=== PATIENT | male | born 1955 | race Caucasian/White ===

== ENCOUNTER 2022-12-29 10:04 | Outpatient (OUT) | payer MEDICARE, SELFPAY ==
[2022-12-29 10:36] LABS: Basophils Percent Auto 0.5 % (0.2-2.0); Eosinophils Absolute Auto 0.2 10^3/uL (0.0-0.7); Eosinophils Percent Auto 1.9 % (0.9-7.0); Hematocrit 40.4 % (42.0-54.0); Hemoglobin 13.7 g/dL (14.0-18.0); Immature Granulocytes Abs Auto 0.02 10^3/uL (0.00-0.03); Immature Granulocytes Pct Auto 0.3 % (0.0-0.5); Lymphocytes Absolute Auto 2.9 10^3/uL (1.2-3.8); Lymphocytes Percent Auto 36.4 % (20.5-60.0); Mean Corpuscular HGB Conc 33.9 g/dL (29.9-35.2); Mean Corpuscular Hemoglobin 30.9 pg (25.9-34.0); Mean Corpuscular Volume 91.2 fL (80.0-94.0); Mean Platelet Volume 10.2 fL (9.5-13.5); Monocytes Absolute Auto 0.8 10^3/uL (0.3-0.8); Monocytes Percent Auto 9.6 % (1.7-12.0); Neutrophils Percent Auto 51.3 % (43.0-75.0); Platelet Count 210 10^3/uL (150-450); Red Blood Count 4.43 10^6/uL (4.70-6.10); Red Cell Distribution Width 13.7 % (11.0-15.0); White Blood Count 7.8 10^3/uL (4.0-11.0)
[2022-12-29 10:57] LABS: Alanine Aminotransferase 29 U/L (16-63); Albumin Level 3.7 g/dL (3.4-5.0); Alkaline Phosphatase 43 U/L (46-116); Anion Gap 12.8; Aspartate Amino Transferase 18 U/L (15-37); BUN Creatinine Ratio 19.1; Bilirubin Total 0.8 mg/dL (0.2-1.0); Calcium 9.2 mg/dL (8.5-10.1); Carbon Dioxide 27.3 mmol/L (21.0-32.0); Chloride 105 mmol/L (98-107); Chol HDL Ratio 2.5; Cholesterol 121 mg/dL (<=200); Estimated GFR (African America >60 (>=60); Estimated GFR (Non-African Ame >60 (>=60); Globulin 3.6 g/dL; Glucose 107 mg/dL (74-106); HDL Cholesterol 48 mg/dL (40-60); LDL Cholesterol Calculated 55.6 mg/dL; Potassium 4.1 mmol/L (3.5-5.1); Sodium 141 mmol/L (136-145); Total Protein 7.3 g/dL (6.4-8.2); Triglycerides 87 mg/dL (<=150); VLDL CHOLESTEROL 17.4 mg/dL
== END 2022-12-29 10:05 | disposition home or self-care (01) ==
LOC: LAB 10:07
PROVIDERS: PCP Internal Medicine; Visit Provider Internal Medicine
DX: I10 Essential (primary) hypertension (principal); E78.5 Hyperlipidemia, unspecified
CPT/HCPCS: 36415; 80053; 80061; 85025

== ENCOUNTER 2023-03-17 12:44 | Outpatient (OUT) | payer MEDICARE, SELFPAY ==
[2023-03-17 13:03] LABS: Hematocrit 40.6 % (42.0-54.0); Hemoglobin 13.6 g/dL (14.0-18.0); Mean Corpuscular HGB Conc 33.5 g/dL (29.9-35.2); Mean Corpuscular Hemoglobin 31.4 pg (25.9-34.0); Mean Corpuscular Volume 93.8 fL (80.0-94.0); Mean Platelet Volume 9.7 fL (9.5-13.5); Platelet Count 226 10^3/uL (150-450); Red Blood Count 4.33 10^6/uL (4.70-6.10); Red Cell Distribution Width 13.1 % (11.0-15.0); White Blood Count 7.4 10^3/uL (4.0-11.0)
[2023-03-17 13:13] LABS: Creatinine Urine Random 102.52 mg/dL (20.00-300.00); Protein Creatinine Ratio Urine 0.12; Total Protein Urine Random 12.1 mg/dL (<=11.9)
[2023-03-17 13:16] LABS: Bilirubin Urine NEGATIVE (NEGATIVE); Blood Urine NEGATIVE (NEGATIVE); Clarity Urine CLEAR (CLEAR); Color Urine YELLOW (YELLOW); Glucose Urine UA NEGATIVE (NEGATIVE); Ketones Urine NEGATIVE (NEGATIVE); Leukocyte Esterase Urine NEGATIVE (NEGATIVE); Nitrite Urine NEGATIVE (NEGATIVE); Protein Urine NEGATIVE (NEG/TRACE)
[2023-03-17 13:29] LABS: Albumin Level 3.6 g/dL (3.4-5.0); Anion Gap 7.4; BUN Creatinine Ratio 16.4; Carbon Dioxide 32.3 mmol/L (21.0-32.0); Chloride 102 mmol/L (98-107); Estimated GFR (African America >60 (>=60); Estimated GFR (Non-African Ame 56 (>=60); Glucose 82 mg/dL (74-106); Magnesium 1.7 mg/dL (1.8-2.4); Phosphorus 4.2 mg/dL (2.6-4.7); Potassium 3.7 mmol/L (3.5-5.1); Sodium 138 mmol/L (136-145); Uric Acid 6.1 mg/dL (3.5-7.2)
[2023-03-17 14:06] LABS: Bacteria Urine NONE SEEN #/HPF (NONE SEEN); Mucus Urine NONE SEEN (NONE SEEN); RBC Urine NONE SEEN #/HPF (0-2); Squamous Epithelial Cell Urine RARE #/LPF (NONE/RARE); WBC Urine NONE SEEN #/HPF (NONE SEEN)
[2023-03-18 13:08] LABS: PTH, Intact 37 pg/mL (15-65)
== END 2023-03-17 12:45 | disposition home or self-care (01) ==
LOC: LAB 12:45
PROVIDERS: PCP Internal Medicine; Visit Provider Internal Medicine
DX: I12.9 Hypertensive chronic kidney disease with stage 1 through stage 4 chronic kidney disease, or unspecified chronic kidney disease (principal); N18.30 Chronic kidney disease, stage 3 unspecified; N25.81 Secondary hyperparathyroidism of renal origin; E79.0 Hyperuricemia without signs of inflammatory arthritis and tophaceous disease; Q60.0 Renal agenesis, unilateral
CPT/HCPCS: 36415; 80069; 81001; 82306; 82570; 83735; 83970; 84156; 84550; 85027

== ENCOUNTER 2023-04-02 12:41 | Emergency (ER) | payer MEDICARE, SELFPAY ==
[2023-04-02 12:46] VITALS: BP 143/88; PULSE 61; RESP 20; TEMP 36.4; O2SAT 100; BMI 32.1
--- NOTE | 2023-04-02 12:55 | XR_ITS ---
The [address] [address] Patient Name: ABBEY IRVING MRN: [id number] date: 1955 Sex: M Assigned Patient Location: ER Current Patient Location: ER Accession/Order Number: [id number] Exam Date: 04/02/2023 13:05 Report Date: 04/02/2023 14:16 At the request of: CHUCK KEE Procedure: XR hand LT min 3V IMAGES REVIEWED: XR hand LT min 3V COMPARISON: 03/14/2017. CLINICAL INDICATION: drilled through base of thumb FINDINGS/IMPRESSION: 1. No evidence of acute osseous abnormality of the left hand/first digit. 2. No radiopaque foreign bodies in the soft tissues. 3. Old healed chronic fracture deformity of the distal tuft first distal phalanx. 4. Tiny bony exostosis involving the volar aspect of the base of the first proximal phalanx better seen on prior. Electronically authenticated by: PREETI ALEJANDRE Date: 04/02/2023 14:16
--- NOTE | 2023-04-02 12:57 | ED.UPPEXIN1 ---
HPI - Extremity Injury (Upper) General Chief Complaint: Extremity Injury, Upper Stated Complaint: LT HAND PUNCTURE Time Seen by Provider: 04/02/23 12:55 Source: patient Mode of arrival: walk-in History of Present Illness HPI narrative: Patient presenting to us with a left hand wound that he sustained after he was using the drill, according to him it was a new drill and the it just slipped from his hand and poked his left hand, the patient presented with a wound to the left hand due to that and he mentioned that his last tetanus was 3 years ago No other complaints Related Data Home Medications Medication Instructions Recorded Confirmed albuterol sulfate 90 mcg/actuation 2 inh inhalation Q6H PRN shortness 04/02/23 04/02/23 aerosol inhaler of breath or wheezing atorvastatin 40 mg tablet 40 mg PO DAILY 04/02/23 04/02/23 budesonide-formoterol HFA 160 1 inh inhalation Q12H 04/02/23 04/02/23 mcg-4.5 mcg/actuation aerosol inhaler (Symbicort) furosemide 20 mg tablet 20 mg PO DAILY 04/02/23 04/02/23 losartan 50 mg tablet 50 mg PO DAILY 04/02/23 04/02/23 metoprolol tartrate 25 mg tablet 25 mg PO DAILY 04/02/23 04/02/23 tamsulosin 0.4 mg capsule 0.4 mg PO Q24H 04/02/23 04/02/23 Previous Rx's Medication Instructions Recorded cephalexin 500 mg capsule 500 mg PO TID 5 days #15 caps 04/02/23 Allergies Allergy/AdvReac Type Severity Reaction Status Date / Time No Known Drug Allergies Allergy Verified 04/02/23 13:00 Review of Systems ROS Status of ROS 10 or more systems reviewed and unremarkable except as noted in history and below Exam Narrative Exam Narrative: Nurses notes and vital signs reviewed and patient is not hypoxic. General: Well-appearing and in no apparent distress. Skin: Warm, dry, no pallor noted. No rash. Head: Normocephalic, atraumatic. Neck: Supple, non-tender. Eye: Pupils are equal, round and EOMI. No scleral icterus. Ears, Nose, Mouth, and Throat: TM are clear, no nasal mucosal hypertrophy. Oral mucosa is moist, no posterior oropharynx erythema, uvula is mid-line Cardiovascular: Regular Rate and Rhythm without murmur, gallop or rub. Respiratory: No accessory muscle use or respiratory distress. Lungs are clear to auscultation, no wheezing, rales or rhonchi Chest Wall: no tenderness Back: No midline thoracic or lumbar vertebral tenderness. No CVA tenderness Musculoskeletal: On the palmar aspect of the left hand the patient have a puncture wound with some macerated skin at the edges almost 5 mm in circumference, the patient have no tenderness upon palpation of the bony prominences there is vascular injury and the capillary fill is within normal GI: Abdomen is soft, non-distended. Normal bowel sounds. No masses appreciated. No tenderness to palpation. No rebound, guarding, or rigidity noted. Neurological: A&O x4. No cranial nerve dysfunction observed. No truncal ataxia. Moves all extremities. Sensation intact. Psychiatric: Cooperative and interactive. Normal mood and affect. Constitutional Vital Signs, click to edit/add: Last Vital Signs Temp 97.5 F L 04/02/23 12:46 Pulse 63 04/02/23 13:48 Resp 18 04/02/23 13:48 BP 136/88 04/02/23 13:48 Pulse Ox 100 04/02/23 13:48 O2 Del Method Room Air 04/02/23 12:46 Course Vital Signs Vital signs: Vital Signs Temperature 97.5 F L 04/02/23 12:46 Pulse Rate 61 04/02/23 12:46 Respiratory Rate 20 04/02/23 12:46 Blood Pressure 143/88 H 04/02/23 12:46 Pulse Oximetry 100 04/02/23 12:46 Oxygen Delivery Method Room Air 04/02/23 12:46 Temperature 97.5 F L 04/02/23 12:46 Pulse Rate 63 04/02/23 13:48 Respiratory Rate 18 04/02/23 13:48 Blood Pressure 136/88 04/02/23 13:48 Pulse Oximetry 100 04/02/23 13:48 Oxygen Delivery Method Room Air 04/02/23 12:46 MDM - Extremity Injury (Upper) MDM Narrative Medical decision making narrative: The wound was cleaned thoroughly with normal saline and Betadine after which the patient had 2 cc of 1% lidocaine with no epinephrine infiltrating the area ,some mild debridement because of the macerated edges to approximate the wound The patient had 4 stitches of 5-0 ethilon applied and the patient tolerated the procedure well Clean dressing and Jose Alberto wrap applied X-ray showed no acute pathology the patient was discharged home with prophylactic Keflex with instructed for wound care The patient is to follow up with primary care physician in next 2-3 days or to return to the emergency department should any of the signs or symptoms worsen or new symptoms develop. The patient agrees with the following Diagnosis and Treatment plan and the patient will be discharged home. Discharge Plan Discharge Chief Complaint: Extremity Injury, Upper Clinical Impression: Puncture wound of hand Patient Disposition: Home, Self-Care Time of Disposition Decision: 14:41 Condition: Good Prescriptions / Home Meds: New cephalexin 500 mg capsule 500 mg PO TID 5 Days Qty: 15 0RF No Action albuterol sulfate 90 mcg/actuation HFA aerosol inhaler 2 inh INHALATION Q6H PRN (Reason: shortness of breath or wheezing) atorvastatin 40 mg tablet 40 mg PO DAILY budesonide-formoterol [Symbicort] 160-4.5 mcg/actuation HFA aerosol inhaler 1 inh INHALATION Q12H furosemide 20 mg tablet 20 mg PO DAILY losartan 50 mg tablet 50 mg PO DAILY metoprolol tartrate 25 mg tablet 25 mg PO DAILY tamsulosin 0.4 mg capsule 0.4 mg PO Q24H Instructions: Laceration (ED), Puncture Wound (ED) Stand Alone Forms: Portal Instructions Referrals: Shaikh Gagnon MD [Primary Care Provider] - 1 week
[2023-04-02] MEDS: KETOROLAC TROMETHAMINE 30 MG/ML VIAL IM (13:21)
[2023-04-02] MEDS: LIDOCAINE HCL 1% 100 MG/10 ML MDV INJ (13:21)
[2023-04-02 13:48] VITALS: BP 136/88; PULSE 63; RESP 18; O2SAT 100
--- NOTE | 2023-04-02 14:04 | PC.NURSE ---
Patient received 4 stitches in left hand with 5.0.
[2023-04-02] MEDS: BACITRACIN 0.9 GM PACKET 1 PACKET TOPICAL (14:17)
[2023-04-02 14:55] VITALS: BP 136/86; PULSE 62; RESP 18; O2SAT 100
== END 2023-04-02 14:57 | disposition home or self-care (01) ==
PROVIDERS: Emergency Provider Emergency Medicine; PCP Internal Medicine
DX: S61.432A Puncture wound without foreign body of left hand, initial encounter (principal); W29.8XXA Contact with other powered hand tools and household machinery, initial encounter; Z79.899 Other long term (current) drug therapy
CPT/HCPCS: 12001; 73130; 96372; 99284

== ENCOUNTER 2023-05-17 08:35 | Outpatient (OUT) | payer MEDICARE, SELFPAY ==
[2023-05-17 08:58] LABS: Basophils Absolute Auto 0.1 10^3/uL (0.0-0.1); Basophils Percent Auto 0.5 % (0.2-2.0); Eosinophils Absolute Auto 0.3 10^3/uL (0.0-0.7); Eosinophils Percent Auto 2.8 % (0.9-7.0); Hematocrit 40.7 % (42.0-54.0); Hemoglobin 13.5 g/dL (14.0-18.0); Immature Granulocytes Abs Auto 0.02 10^3/uL (0.00-0.03); Immature Granulocytes Pct Auto 0.2 % (0.0-0.5); Lymphocytes Absolute Auto 2.9 10^3/uL (1.2-3.8); Lymphocytes Percent Auto 31.1 % (20.5-60.0); Mean Corpuscular HGB Conc 33.2 g/dL (29.9-35.2); Mean Corpuscular Hemoglobin 31.5 pg (25.9-34.0); Mean Corpuscular Volume 94.9 fL (80.0-94.0); Mean Platelet Volume 9.8 fL (9.5-13.5); Monocytes Absolute Auto 0.7 10^3/uL (0.3-0.8); Monocytes Percent Auto 7.7 % (1.7-12.0); Neutrophils Absolute Auto 5.4 10^3/uL (1.4-6.5); Neutrophils Percent Auto 57.7 % (43.0-75.0); Platelet Count 219 10^3/uL (150-450); Red Blood Count 4.29 10^6/uL (4.70-6.10); Red Cell Distribution Width 12.8 % (11.0-15.0); White Blood Count 9.4 10^3/uL (4.0-11.0)
[2023-05-17 09:33] LABS: Alanine Aminotransferase 26 U/L (16-63); Albumin Globulin Ratio 0.9; Albumin Level 3.5 g/dL (3.4-5.0); Alkaline Phosphatase 47 U/L (46-116); Anion Gap 12.5; Aspartate Amino Transferase 16 U/L (15-37); BUN Creatinine Ratio 17.6; Bilirubin Total 0.4 mg/dL (0.2-1.0); Calcium 8.8 mg/dL (8.5-10.1); Carbon Dioxide 29.7 mmol/L (21.0-32.0); Chloride 104 mmol/L (98-107); Chol HDL Ratio 2.5; Cholesterol 114 mg/dL (<=200); Estimated GFR (African America >60 (>=60); Estimated GFR (Non-African Ame >60 (>=60); Globulin 3.8 g/dL; Glucose 93 mg/dL (74-106); HDL Cholesterol 45 mg/dL (40-60); LDL Cholesterol Calculated 48.6 mg/dL; Potassium 4.2 mmol/L (3.5-5.1); Sodium 142 mmol/L (136-145); Total Protein 7.3 g/dL (6.4-8.2); Triglycerides 102 mg/dL (<=150); VLDL CHOLESTEROL 20.4 mg/dL
== END 2023-05-17 08:36 | disposition home or self-care (01) ==
LOC: LAB 08:36
PROVIDERS: PCP Internal Medicine; Visit Provider Internal Medicine
DX: E78.2 Mixed hyperlipidemia (principal); I10 Essential (primary) hypertension
CPT/HCPCS: 36415; 80053; 80061; 85025

== ENCOUNTER 2023-08-12 20:53 | Observation (INO) | payer MEDICARE, SELFPAY ==
[2023-08-12 21:01] VITALS: BP 176/86; PULSE 61; RESP 15; TEMP 36.7; O2SAT 97; BMI 33.0
--- NOTE | 2023-08-12 21:03 | ECG_ITS ---
The [facility] Test Date: 2023-08-12 Pat Name: ABBEY IRVING Department: Room: 2041 Gender: Male Electrical Tester: : 1955 Requested By: SHAIKH ALDAIR Order Number: [id number] Reading MD: RENETTA BECERRA Measurements Intervals Admire Rate: 59 P: 60 NM: 232 QRS: 45 QRSD: 88 T: 70 QT: 408 QTc: 408 Interpretive Statements 1100 Sinus bradycardia 2231 First degree AV block 9150 abnormal ECG Electronically Signed On 08-14-2023 8:10:10 EDT by RENETTA BECERRA
--- OUTSIDE RECORDS SUMMARY | 2023-08-12 21:04 | XMS_ITS | CCD ---
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 [employer] Name Role Phone Jose Victoria Unavailable Carlos HOLLINS Attending Unavailable FAWWAD, PATEL Primary Care Unavailable Carlos HOLLINS Attending Unavailable FAWWAD, PATEL Primary Care Unavailable Carlos HOLLINS Attending Unavailable FAWWAD, PATEL Primary Care Unavailable DR CARLOS HOLLINS Consulting Unavailable COOK, PEGGY Attending Unavailable FAWWAD, PATEL H Primary Care Unavailable COOK, PEGGY Admitting Unavailable SAMSA ., RUKHSANA Admitting Unavailable ZIEBAMY, DR LUCAS Miller Consulting Unavailable SAMSA ., RUKHSANA Attending Unavailable FAWWAD, PATEL H Primary Care Unavailable SAMSA ., RUKHSANA Consulting Unavailable FAWWAD, PATEL H Admitting Unavailable FAWWAD, PATEL H Attending Unavailable FAWWAD, PATEL H Consulting Unavailable FAWWAD, PATEL H Primary Care Unavailable SAMSA ., RUKHSANA Admitting Unavailable SAMSA ., RUKHSANA Attending Unavailable TRISTON, DR LUCAS Miller Consulting Unavailable FAWWAD, PATEL H Primary Care Unavailable SAMSA ., RUKHSANA Consulting Unavailable FAWWAD, PATEL H Admitting Unavailable FAWWAD, PATEL H Attending Unavailable FAWWAD, PATEL H Consulting Unavailable FAWWAD, PATEL H Primary Care Unavailable PAY ., DR CARRASCO Admitting Unavailable DR LUCAS GOLDSTEIN Consulting Unavailable PAY ., DR CARRASCO Attending Unavailable FAWWAD, PATEL H Primary Care Unavailable PAY ., DR CARRASCO Consulting Unavailable AKIL, VARSHA Consulting Unavailable HAY ., DR ABEL Admitting Unavailable HAY ., DR ABEL Attending Unavailable GRECHNY ., PA THOMAS Consulting UnavailSHAIKH Nancy Keys Primary Care Unavailable DR COLTEN LANEG Consulting Unavailable DR DA ELISE Consulting Unavailable ERNA LEON Consulting Unavailable RUKHSANA DUPONT Attending Unavailable SHAIKH Nancy QUINTEROS Primary Care Unavailable RUKHSANA DUPONT Consulting Unavailable RUKHSANA DUPONT Admitting Unavailable SHAIKH QUINTEROS Attending Unavailable Allergies Allergy Classification Reported Allergen(s) Allergy Type Date of Onset Reaction(s) Facility (1 source) No Known Medication Allergies; Translations: [No Known Medication Allergies] Propensity to adverse reactions (disorder) [facility] Repository Medications Current Medications Medication Drug Class(es) Dates Sig (Normalized) Sig (Original) [id number] 200 actuat albuterol 0.09 mg/actuat metered dose inhaler (5 sources) beta2-Adrenergic Agonist take 1 puff(s) by inhalation every four hours as needed Albuterol Sulfate HFA 108 (90 Base) MCG/ACT 1 puff as needed Inhalation every 4 hrs Active take 1 puff(s) by in halation every four hours as needed Albuterol Sulfate HFA 108 (90 Base) MCG/ACT 1 puff as needed Inhalation every 4 hrs Active allopurinol 100 mg oral tablet (3 sources) Xanthine Oxidase Inhibitor Start: 03-22-2022 take 1 tablet by mouth every twenty-four hours Allopurinol 100 MG 1 tablet Orally Once a day for 90 day(s) Mar, Active amLODIPine 5 mg oral tablet (5 sources) Dihydropyridine Calcium Channel Ellis take 1 tablet by mouth every twenty-four hours amLODIPine Besylate 5 MG 1 tablet Orally Once a day Active atorvastatin 40 mg oral tablet (5 sources) HMG-CoA Reductase Inhibitor take 1 tablet by mouth every twenty-four hours Atorvastatin Calcium 40 MG 1 tablet Orally Once a day Active ergocalciferol 0.05 mg oral capsule (5 sources) Provitamin D2 Compound take 1 capsule by mouth every twenty-four hours Vitamin D (Ergocalciferol) 50 MCG (1999 UT) 1 capsule Orally Once a day Active furosemide 20 mg oral tablet (5 sources) Loop Diuretic take 1 tablet by mouth every twenty-four hours Furosemide 20 MG 1 tablet Orally Once a day Active lansoprazole 15 mg disintegrating oral tablet (5 sources) Proton Pump Inhibitor take 1 tablet by mouth every twenty-four hours Lansoprazole 15 MG 1 tablet Orally Once a day Active metoprolol tartrate 25 mg oral tablet (5 sources) beta-Adrenergic Ellis take 1 tablet by mouth every twelve hours Metoprolol Tartrate 25 MG 1 tablet with food Orally Twice a day Active Multivitamin preparation (2 sources) take 1 tablet by mouth once daily Multi Vitamin - 1 tablet Orally Once a day Active Nitro Sublingual 0.4 0.4mg (5 sources) Nitro Sublingual 0.4 0.4mg 1 Sublingual Every 5min x3 Active tamsulosin hydrochloride 0.4 mg oral capsule (5 sources) alpha-Adrenergic Ellis take 1 capsule by mouth every twenty-four hours Tamsulosin HCl 0.4 MG 1 capsule Orally Once a day Active Problems Active Problems Problem Classification Problem Date Documented Date Episodic/Chronic Alcohol-related disorders (1 source) Alcohol abuse with intoxication, unspecified; Translations: [ALCOHOL ABUSE WITH INTOXICATION UNS] Onset: 2 Chronic Cancer of prostate (4 sources) Personal history of malignant neoplasm of prostate; Translations: [PERSONAL HX MALIG NEOPLASM PROSTATE] Onset: 3 Episodic Chronic kidney disease (1 source) Chronic kidney disease stage 3; Translations: [Chronic kidney disease, stage III (moderate)] Chronic Deficiency and other anemia (1 source) Anemia in chronic kidney disease; Translations: [Anemia in chronic kidney disease] Chronic Deficiency and other anemia (1 source) Anemia in chronic kidney disease Chronic Disorders of lipid metabolism (6 sources) Hyperlipidemia, unspecified; Translations: [Dyslipidemia] Onset: 3 Chronic Essential hypertension (1 source) Essential (primary) hypertension; Translations: [ESSENTIAL PRIMARY HYPERTENSION] Onset: 3 Chronic Genitourinary congenital anomalies (9 sources) Renal agenesis and dysgenesis; 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, unilateral] Onset: 2 Resolved: 2 Chronic Hypertension with complications and secondary hypertension (9 sources) Chronic kidney disease due to hypertension; Translations: [Hypertensive chronic kidney disease with stage 1 through stage 4 chronic kidney disease, or unspecified chronic kidney disease] Onset: 2 Resolved: 2 Chronic Other diseases of kidney and ureters (5 sources) Secondary hyperparathyroidism; Translations: [Secondary hyperparathyroidism of renal origin] Chronic Other diseases of kidney and ureters (4 sources) Secondary hyperparathyroidism of renal origin Onset: 2 Resolved: 2 Chronic Other lower respiratory disease (4 sources) Other nonspecific abnormal finding of lung field; Translations: [OTH NONSPECIFIC ABN FIND LNG FIELD] Onset: 3 Episodic Other nutritional; endocrine; and metabolic disorders (1 source) Hypomagnesemia; Translations: [Hypomagnesemia] Chronic Other nutritional; endocrine; and metabolic disorders (1 source) Hypomagnesemia Chronic Other nutritional; endocrine; and metabolic disorders (3 sources) Hyperuricemia without signs of inflammatory arthritis and tophaceous disease Episodic Residual codes; unclassified (6 sources) Obstructive sleep apnea syndrome; Translations: [Obstructive sleep apnea (adult) (pediatric)] Onset: 2 Chronic Residual codes; unclassified (5 sources) Central alveolar hypoventilation syndrome; Translations: [Idiopathic sleep related nonobstructive alveolar hypoventilation] Chronic Residual codes; unclassified (3 sources) Obstructive sleep apnea (adult) (pediatric); Translations: [OBSTRUCTIVE SLEEP APNEA] Onset: 2 Chronic Substance-related disorders (10 sources) Nicotine dependence; Translations: [Nicotine dependence, unspecified, uncomplicated] Onset: 2 Chronic Unclassified (1 source) CONTACT W/AND (SUSP) EXPOS COVID-19; Translations: [CONTACT W/AND (SUSP) EXPOS COVID-19] Onset: 2 Past or Other Problems Problem Classification Problem Date Documented Da te Episodic/Chronic Abdominal pain (4 sources) Unspecified abdominal pain; Translations: [UNSPECIFIED ABDOMINAL PAIN] Onset: 01-01-2022 Episodic Chronic kidney disease (8 sources) Chronic kidney disease; Translations: [Chronic kidney disease, stage III (moderate)] Onset: 06-18-2021 Resolved: 06-18-2021 E Codes: Unspecified (1 source) Blood alcohol level of 240 mg/100 ml or more; Translations: [BLOOD ALCOHOL LV 240 MG/100 ML/MORE] Onset: 04-12-2022 Episodic Malaise and fatigue (1 source) Weakness; Translations: [WEAKNESS] Onset: 04-12-2022 Episodic Other aftercare (1 source) Other longterm (current) drug therapy; Translations: [OTH [facility] CURRENT DRUG THERAPY] Onset: 04-12-2022 Episodic Other connective tissue disease (1 source) Pain in left leg; Translations: [PAIN IN LEFT LEG] Onset: 01-04-2022 Episodic Other nervous system disorders (1 source) Slurred speech; Translations: [SLURRED SPEECH] Onset: 04-12-2022 Episodic Other screening for suspected conditions (not mental disorders or infectious disease) (4 sources) Other specified abnormal findings of blood chemistry; Translations: [OTH SPEC ABNORMAL FINDINGS BLD CHEM] Onset: 02-16-2022 Episodic Residual codes; unclassified (4 sources) Altered mental status, unspecified; Translations: [ALTERED MENTAL STATUS UNSPECIFIED] Onset: 04-08-2022 Episodic Results Test Name Value Interpretation Reference Range Facil maddie Patient Educationon 10-16-19 Patient Education Oncology Cancer Screening for Men A cancer screening is a test or exam that checks for cancer. Your health care provider will recommend specific cancer screenings based on your age, medical history (including risk factors), and family history of cancer. Work with your health care provider to create a cancer screening schedule that protects your health. Who should have screening? All men should be considered for screening of certain cancers, including colorectal cancer, prostate cancer, lung cancer, and skin cancer. Your health care provider may recommend screenings for other types of cancer if: ? You had cancer before. ? You have a family member with cancer. ? You have abnormal genes that could increase the risk of cancer. ? You have risk factors for certain cancers, such as current or past use of tobacco products, or being overweight. When you should be screened for cancer depends on: ? Your age. ? Your medical history and your family's medical history. ? Certain lifestyle factors, such as smoking or other use of tobacco products. ? Environmental exposure, such as to asbestos. How is screening done? Colorectal cancer All adults should have screenings starting at age 45 and continuing until age 75. Your health care provider may recommend screening before age 45. You will have tests every 1?10 years, depending on your results and the type of screening test. People at increased risk should start screening at an earlier age. Talk with your health care provider about which screening test is right for you and how often you should be screened. Colorectal cancer screening looks for cancer or for growths called polyps that often form before cancer starts. Tests to look for cancer or polyps include: ? Colonoscopy or flexible sigmoidoscopy. For these procedures, a flexible tube with a small camera is inserted into the rectum. ? CT colonography. This test uses X-rays and a contrast dye to check the colon for polyps. If a polyp is found, you may need to have a colonoscopy so the polyp can be located and removed. Tests to look for cancer in the stool (feces) include: ? Guaiac-based fecal occult blood test (FOBT). This test can find blood in stool. It can be done at home with a kit. ? Fecal immunochemical test (FIT). This test can find blood in stool. For this test, you will need to collect stool samples at home. ? Stool DNA test. This test looks for blood in stool and any changes in DNA that can lead to colon cancer. For this test, you will need to collect a stool sample at home and send it to a lab. Prostate cancer Prostate cancer screening for men with average risk may start at age 50. Men with risk factors may need to be screened earlier, at ages 40?45. Talk with your health care provider about whether screening is right for you and, if so, how often you should be screened. Prostate cancer screening is done with blood tests and a digital rectal exam. During this exam, a health care provider uses a gloved finger to check prostate size. You may need to be screened for prostate cancer if: ? You have risk factors for prostate cancer, such as being or having a close family member with prostate cancer. ? You have had gene changes or a genetic condition that was passed on to you from a parent (inherited). These gene changes or genetic conditions include BRCA1 or BRCA2 gene mutations or Ayon syndrome. ? You have symptoms of prostate cancer, such as problems urinating or problems getting or keeping an erection (erectile dysfunction). When you have been screened for prostate cancer, future screening may be recommended based on the results of your blood tests. Lung cancer Lung cancer screening is done with a CT scan that looks for abnormal changes in the lungs. Discuss lung cancer screening with your health care provider if you are 50?80 years old and if any of the following apply to you: ? You currently smoke. ? You used to smoke heavily. ? You have a smoking history of 1 pack of cigarettes a day for 20 years or 2 packs a day for 10 years. ? You have quit smoking within the past 15 years. You may need to be screened every year if you smoke heavily or if you used to smoke. Skin cancer Skin cancer screening is done by checking the skin for unusual moles or spots and any changes in existing moles. Your health care provider should check your skin for signs of skin cancer at every physical exam. You should check your skin every month and tell your health care provider right away if anything looks unusual. Men with a [id number] risk for skin cancer may want to see a skin drier (special forces engineer sergeant) for an annual body check. What are the benefits of screening? Cancer screening is done to look for cancer in the very early stages, before it spreads and becomes harder to treat and before you would start to notice symptoms. Finding cancer early improves the chances of successful treatment. It ma (more content not included)... Normal [facility] Screenson 10-15-2022 Screens [id number]# 1.00CD:127 Normal [facility] Urology Office/Clinic Noteon 10-15-2022 Urology Office/Clinic Note Chief Complaint pt is here for a f/u to PSA HPI Staff Pt is a 67 yr old Male here today for a 1 yr f/u for PSA. Pts previous PSA 0.05 done 08/10/21, Pts current PSA 0.13 done 10/11/22. Pts previous DX: BPH with obstruction/lower urinary tract symptoms, frequency of urination, history of prostate cancer, personal history of renal cell carcinoma, urgency of urination. Pts currently taking Flomax 0.4mg QD. Dysuria: denies Incomplete bladder emptying: denies Hematuria: denies Frequency: denies Urgency: pt states he has some urgency but not much Nocturia: 0x Stream: moderate, steady stream Leaking: denies Post void dripping: denies Wearing pads/ Depends: denies Urge incontinence: denies Stress incontinence: denies Incontinence without Sensory Awareness: denies Abdominal pain: denies Flank pain: every now and again, pt states he thinks it is because he does not drink enough water Sexual complaints: _ History of Present Illness Tests reviewed: reviewed UA, PSA. I have reviewed the previous health record information and history for this patient from Dr. Hollins. I have reviewed and verified the staff HPI to be accurate for this encounter. There have been no associated fever, chills, flank pain, or blood in the urine. Denies any urinary infections since last encounter. Review of Systems PHQ Score Initial Depression Screen Score: 0 ROS - Provider Constitutional: denies weight loss, denies hot flashes. Eyes: denies eye problems. Gastrointestinal: denies nausea, denies vomiting. Cardiovascular: denies chest pain or angina. Integumentary: no dryness Musculoskeletal: denies musculoskeletal symptoms. ENMT: denies otolaryngeal symptoms. Respiratory: no shortness of breath. Heme/Lymph: denies easy bleeding tendency, denies easy bruising tendency. Psychiatric: no confusion, no anxiety. Genitourinary: See HPI. Physical Exam Vitals & Measurements HR: 57(Peripheral) BP: 139/77 HT: 70 in HT: 177 cm WT: 106.7 kg WT: 234.74 lb BMI: 34.06 General Appearance: alert, no distress, well nourished, well developed male. Genitourinary: normal scrotum, normal testes, normal urethra, normal epididymis, normal vas deferens/spermatic cord. Flank Pain: none. Bladder: nonpalpable. Prostate: small and flat per usual. Assessment/Plan Had cataract surgery at the beginning of August, was very successful per pt. 1. Personal history of prostate cancer (Z85.46: Personal history of malignant neoplasm of prostate) PSA: 10/26/19 - 0.05 08/10/21 - 0.05 10/11/22 - <0.13 S/P Brachytherapy 03/24/11. PSA remains low and stable. Will continue to monitor. TETO today: small and flat per usual. Follow up 1 yr PSA or sooner if needed. Pt understands and agrees with plan. 2. BPH with obstruction/lower urinary tract symptoms (N40.1: Benign prostatic hyperplasia with lower urinary tract symptoms) UA today negative for blood and infection. IPSS 9. Taking Flomax 0.4 mg qd. Not voicing any urinary complaints. 3. Personal history of renal cell carcinoma (Z85.528: Personal history of other malignant neoplasm of kidney) S/P Lt Nephrectomy 2000. No gross hematuria. Overall the patient is doing well. No change in his urinary pattern. He is happy to hear that his PSA remains near 0 status post brachytherapy 12 years ago. He said no gross blood or clots in the urine. He recently had his cataract repaired. He continues on tamsulosin 0.4 mg daily and this dosing should continue. He is happy with that plan Follow-up With When Contact Information Carlos HOLLINS MD, URL [address] [place] [id number]- Additional Instructions: 1 yr PSA Patient Education Cancer Screening for Men I, Laurel Bradley, personally scribed for Dr. Hollins on 10/15/2022 10:05:22. . Documentation recorded by the scribe, Laurel Bradley, accurately reflects the services(s) I performed and decisions made by me. Authenticated by Dr. Hollins on 10/15/2022 10:10:09. Problem List/Past Medical History Ongoing Anticoagulated BPH with obstruction/lower urinary tract symptoms Frequency of urination History of UTI Hypertension Personal history of prostate cancer Personal history of renal cell carcinoma Urgency of urination Historical BPH - benign prostatic hyperplasia Cancer of prostate Elevated PSA Hypertension Renal cell carcinoma Procedure/Surgical History Brachytherapy (03/24/2011), Left nephrectomy (06/06/2000), Cataract, Extraction of wisdom tooth, History of hernia repair. Medications amlodipine, 5 mg, Oral, Daily atorvastatin, 40 mg, Oral, Daily Atrovent HFA, Inhalation, QID furosemide 20 mg Tab, Oral, Daily losartan 50 mg Tab, 50 mg= 1 tab(s), Oral, Daily metoprolol 25 mg ER Tab, 25 mg= 1 tab(s), Oral, Daily Pantoprazole [address] Tab, 40 mg= 1 tab(s), Oral, Daily tamsulosin 0.4 mg Cap, Oral, Daily Ventolin Diskus Vitamin D3 (more content not included)... Normal [facility] Comment on above: Result Comment: Elec tronically Signed By: Carlos HOLLINS MD\.br\Date and Time Signed: 10/15/22 10:11 EDT\.br\Electronically Co-Signed By: Laurel Bradley\.br\Date and Time Co-Signed: 10/15/22 10:08 EDT Lab Reportson 10-13-2022 Lab Reports [id number] .[id number]:127 Normal [facility] CT CHEST WO CONon 10-11-2022 CT CHEST WO CON EXAMINATION: CT CHES T WO CON HISTORY: Lung field abnormal COMPARISON: CT lung cancer screening 07/05/2022 TECHNIQUE: Axial, Coronal, and Sagittal images were created without the administration of IV contrast material. Dose reduction techniques were achieved by using automated exposure control and/or adjustment of mA and/or kV according to patient size and/or use of iterative reconstruction technique. FINDINGS: LUNGS: No visible pulmonary disease. PLEURA: No mass, effusion, or pneumothorax. VASCULATURE: No abnormality. JAKE: No mass or adenopathy. MEDIASTINUM: No mass or adenopathy. CARDIAC: No enlargement or pericardial thickening. AORTA: No aneurysm or dissection. CHEST WALL: No mass or axillary adenopathy. BONES: No bone lesion or fracture. LIMITED ABDOMEN: A few benign-appearing calcifications scattered within the liver, unchanged. Stable rim calcified lesion within left adrenal gland; likely sequela of remote hematoma. Limited images of the upper abdomen. OTHER: Negative. IMPRESSION: 1. Lung-RADS Category 1 Negative. No nodules and definitely benign nodules. Continue annual screening with LDCT in 12 months. 2. Clearing of previously seen right lung base findings consistent with resolved infectious infiltrates. Electronically authenticated by: LUCAS GOLDSTEIN Date: 2022-10-11 15:31 Normal [facility] CBC AUTO DIFFon 08-23-2022 BASO # 0.0 103/ul Normal 0.0-0.1 [facility] Comment on above: Performed By: #### C BC #### [facility] [address] [place], [place] [address] Dr. Jesus White Basophils/100 WBC (Bld) 0.5 % Normal 0.2-2.0 [facility] Comment on above: Performed By: #### C BC #### [facility] [address] [place], [place] [address] Dr. Jesus White EO # 0.2 103/ul Normal 0.0-0.7 [facility] Comment on above: Performed By: #### C BC #### [facility] [address] [place] [address] Dr. Jesus White Eosinophils/100 WBC (Bld) 2.2 % Normal 0.9-7.0 [facility] Comment on above: Performed By: #### C BC #### [facility] [address] [place] [address] Dr. Jesus White Erythrocyte distribution width (RBC) [Ratio] 13.3 % Normal 11.0-15.0 [facility] Comment on above: Performed By: #### C BC #### [facility] [address] [place] [address] Dr. Jesus White Hematocrit (Bld) [Volume fraction] 43.0 % Normal 42.0-54.0 [facility] Comment on above: Performed By: #### C BC #### [facility] [address] [place] [address] Dr. Jesus White Hemoglobin (Bld) [Mass/Vol] 14.4 g/dL Normal 14.0-18.0 [facility] Comment on above: Performed By: #### C BC #### [facility] [address] [place] [address] Dr. Jesus White IG # 0.02 10e3/ul Normal 0.00-0.03 [facility] Comment on above: Performed By: #### C BC #### [facility] [address] [place] [address] Dr. Jesus White IG % 0.2 % Normal 0.0-0.5 [facility] Comment on above: Performed By: #### C BC #### [facility] [address] [place] [address] Dr. Jesus White LYMPH # 3.0 103/ul Normal 1.2-3.8 [facility] Comment on above: Performed By: #### C BC #### [facility] [address] [place] [address] Dr. Jesus White Lymphocytes/100 WBC (Bld) 35.8 % Normal 20.5-60.0 [facility] Comment on above: Performed By: #### C BC #### [facility] [address] [place] [address] Dr. Jesus White MANUAL DIFF REQ NO Normal [facility] [place] [facility] Comment on above: Performed By: #### C BC #### [facility] [address] [place] [address] Dr. Jesus White MCH (RBC) [Entitic mass] 30.6 pg Normal 25.9-34.0 [facility] Comment on above: Performed By: #### C BC #### [facility] [address] [place] [address] Dr. Jesus White MCHC (RBC) [Mass/Vol] 33.5 g/dL Normal 29.9-35.2 [facility] Comment on above: Performed By: #### C BC #### [facility] [address] [place] [address] Dr. Jesus White MCV (RBC) [Entitic vol] 91.5 fL Normal 80.0-94.0 [facility] Comment on above: Performed By: #### C BC #### [facility] [facility] [address] [place] [address] Dr. Jesus White MONO # 0.8 103/ul Normal 0.3-0.8 [facility] Comment on above: Performed By: #### C BC #### [facility] [address] [place] [address] Dr. Jesus White Monocytes/100 WBC (Bld) 9.1 % Normal 1.7-12.0 [facility] Comment on above: Performed By: #### C BC #### [facility] [address] [place] [address] Dr. Jesus White NEUT # 4.4 103/ul Normal 1.4-6.5 [facility] Comment on above: Performed By: #### C BC #### [facility] [address] [place] [address] Dr. Jesus White Neutrophils/100 WBC (Bld) 52.2 % Normal 43.0-75.0 [facility] Comment on above: Performed By: #### C BC #### [facility] [address] [place] [address] Dr. Jesus White Platelet mean volume (Bld) [Entitic vol] 9.8 fL Normal 9.5-13.5 [facility] Comment on above: Performed By: #### C BC #### [facility] [address] [place] [address] Dr. Jesus White PLT 236 103/ul Normal 150-450 [facility] Comment on above: Performed By: #### C BC #### [facility] [address] [place] [address] Dr. Jesus White RBC 4.70 106/ul Normal 4.70-6.10 [facility] Comment on above: Performed By: #### C BC #### [facility] [address] [place] [address] Dr. Jesus White WBC 8.4 103/ul Normal 4.0-11.0 [facility] Comment on above: Performed By: #### C BC #### [facility] [address] [place] [address] Dr. Jesus White LIPID PROFILEon 08-23-2022 CHOL-HDL RATIO NORM SEE BELOW Normal [facility] Comment on above: Result Comment: 3.3 - 4.4 LOW RISK 4.4 - 7.1 AVERAGE RISK 7.1 - 11.0 MODERATE RISK >11.0 HIGH RISK Performed By: #### C MP, LIPID #### [facility] [address] [place] [address] Dr. Jesus White Cholesterol [Mass/Vol] 121 mg/dL Normal <=200 [facility] Comment on above: Performed By: #### C MP, LIPID #### [facility] [address] [place] [address] Dr. Jesus White Cholesterol in HDL [Mass/Vol] 37 mg/dL Critically low 40-60 [facility] Comment on above: Performed By: #### C MP, LIPID #### [facility] [address] [place] [address] Dr. Jesus White Cholesterol in LDL [Mass/Vol] 59.6 mg/dL Normal [facility] Comment on above: Performed By: #### C MP, LIPID #### [facility] [address] [address] [address] Jesus White Cholesterol.total/C holesterol in HDL [Mass ratio] 3.3 {ratio} Normal [facility] Comment on above: Performed By: #### C MP, LIPID #### [facility] [address] [address] [address] Jesus White HDL NORMAL > or = 60 mg/dl - LO W CARDIOVASCULAR RISK <40 mg/dl - HIGH CARDIOVASCULAR RISK Normal [facility] Comment on above: Performed By: #### C MP, LIPID #### [facility] [address] [address] [address] Jesus White LDL CALC NORMAL SEE BELOW Normal [facility] Comment on above: Result Comment: <100 mg/dl OPTIMAL 100 - 129 mg/dl NEAR OR ABOVE OPTIMAL 130 - 159 mg/dl BORDERLINE HIGH 160 - 189 mg/dl HIGH >190 mg/dl VERY HIGH Performed By: #### C MP, LIPID #### [facility] [address] [address] [address] Jesus White Triglyceride [Mass/Vol] 122 mg/dL Normal <=150 [facility] Comment on above: Performed By: #### C MP, LIPID #### [facility] [address] [place] [address] Dr. Jesus White VLDL CALC 24.4 mg/dL Normal [facility] Comment on above: Performed By: #### C MP, LIPID #### [facility] [address] [address] [address] Jesus White PROF 14(COMP METB)on 023 Albumin [Mass/Vol] 3.8 g/dL Normal 3.4-5.0 [facility] Comment on above: Performed By: #### C MP, LIPID #### [facility] [address] [place] [address] Dr. Jesus White Albumin/Globulin [Mass ratio] 1.1 {ratio} Normal [facility] Comment on above: Performed By: #### C MP, LIPID #### [facility] [address] [place] [address] Dr. Jesus White ALP [Catalytic activity/Vol] 46 U/L Normal 46-116 [facility] Comment on above: Performed By: #### C MP, LIPID #### [facility] [address] [place] [address] Dr. Jesus White ALT [Catalytic activity/Vol] 37 U/L Normal 16-63 [facility] Comment on above: Performed By: #### C MP, LIPID #### [facility] [address] [address] [address] Jesus White Anion gap [Moles/Vol] 11.3 mmol/L Normal [facility] Comment on above: Performed By: #### C MP, LIPID #### [facility] [address] [place] [address] Dr. Jesus White AST [Catalytic activity/Vol] 28 U/L Normal 15-37 [facility] Comment on above: Performed By: #### C MP, LIPID #### [facility] [address] [place] [address] Dr. Jesus White Bilirubin [Mass/Vol] 0.5 mg/dL Normal 0.2-1.0 [facility] Comment on above: Performed By: #### C MP, LIPID #### [facility] [address] [place] [address] Dr. Jesus White Calcium [Mass/Vol] 9.5 mg/dL Normal 8.5-10.1 [facility] Comment on above: Performed By: #### C MP, LIPID #### [facility] [address] [place] [address] Dr. Jesus White Chloride [Moles/Vol] 104 mmol/L Normal 98-107 [facility] Comment on above: Performed By: #### C MP, LIPID #### [facility] [address] [address] [address] Jesus White CO2 [Moles/Vol] 28.9 mmol/L Normal 21.0-32.0 [facility] Comment on above: Performed By: #### C MP, LIPID #### [facility] [address] [address] [address] Jesus White Creatinine [Mass/Vol] 0.99 mg/dL Normal 0.70-1.30 [facility] Comment on above: Performed By: #### C MP, LIPID #### [facility] [address] [address] [address] Jesus White EGFR-AF ITALIAN >60 Normal >=60 [facility] Comment on above: Performed By: #### C MP, LIPID #### [facility] [address] [address] [address] Jesus White EGFR-NON AF ITALIAN >60 Normal >=60 [facility] Comment on above: Performed By: #### C MP, LIPID #### [facility] [address] [address] [address] Jesus White Globulin (S) [Mass/Vol] 3.6 g/dL Normal [facility] Comment on above: Performed By: #### C MP, LIPID #### [facility] [address] [place] [address] Dr. Jesus White Glucose [Mass/Vol] 92 mg/dL Normal 74-106 [facility] Comment on above: Performed By: #### C MP, LIPID #### [facility] [address] [address] [address] Jesus White Potassium [Moles/Vol] 4.2 mmol/L Normal 3.5-5.1 [facility] Comment on above: Performed By: #### C MP, LIPID #### [facility] [address] [address] [address] Jesus White Protein [Mass/Vol] 7.4 g/dL Normal 6.4-8.2 [facility] Comment on above: Performed By: #### C MP, LIPID #### [facility] [address] [address] [address] Jesus White Sodium [Moles/Vol] 140 mmol/L Normal 136-145 [facility] Comment on above: Performed By: #### C MP, LIPID #### [facility] [address] [address] [address] Jesus White Urea nitrogen [Mass/Vol] 12.0 mg/dL Normal 7.0-18.0 [facility] Comment on above: Performed By: #### C MP, LIPID #### [facility] [address] [place], [place] [address] Dr. Jesus White Urea nitrogen/Creatinine [Mass ratio] 12.1 mg/mg Normal [facility] Comment on above: Performed By: #### C MP, LIPID #### [facility] [address] [place], [place] [address] LUNG CANCER SCREENINGon 0 07-05-2022 CT LUNG CANCER SCREENING EXAMINATION: CT LUNG CANCER SCREENING HISTORY: Nicotine dependence COMPARISON: CT chest 07/01/2021, 06/30/2020 TECHNIQUE: Axial, Coronal, and Sagittal images were created without the administration of IV contrast material. Dose reduction techniques were achieved by using automated exposure control and/or adjustment of mA and/or kV according to patient size and/or use of iterative reconstruction technique. FINDINGS: LUNGS: Curvilinear stranding opacity within posterior right lung base and small patchy opacity within right posterior costophrenic angle. Lungs are otherwise clear. PLEURA: No mass, effusion, or pneumothorax. VASCULATURE: No abnormality. JAKE: No mass or pathologic adenopathy. MEDIASTINUM: No mass or pathologic adenopathy. CARDIAC: No enlargement, pericardial thickening, or significant calcification. AORTA: No aneurysm or dissection. CHEST WALL: No mass or axillary adenopathy BONES: No bone lesion or fracture. LIMITED ABDOMEN: Rim calcified nodule adjacent the spleen suspected to be associated with the adrenal gland; favoring benign etiology. Limited images of the upper abdomen. OTHER: Negative. IMPRESSION: 1. Lung-RADS Category 4A- Suspicious. Findings for which additional diagnostic testing and/ or tissue sampling is recommended. 3 month LDCT; PET/CT may be used when there is a >= 8 mm solid component. 2. New findings within posterior right lung base suspected to represent infectious infiltrates or atelectasis/scarring. Tumor cannot be completely excluded. Follow-up CT chest in 2-3 months to document clearing is recommended. Electronically authenticated by: LUCAS GOLDSTEIN Date: 2022-07-05 12:53 Normal [facility] BLOOD GASES BTYon 04-08-2022 02 MODE ROOM AIR Normal [facility] Comment on above: Performed By: #### A BG ####[facility] [address] [address]Dr. Jesus White ALLENS TEST Positive Normal [facility] Comment on above: Performed By: #### A BG ####[facility] [address] [address]Dr. Jesus White Base excess Calc (Bld) [Moles/Vol] -0.4000 mmol/L Normal -2.0-2.0 [facility] Comment on above: Performed By: #### A BG ####[facility] [address] [place], [place] [address]Dr. Jesus White BIPAP PRESSURE Normal [facility] Comment on above: Performed By: #### A BG ####[facility] [address] [place], [place] [address]Dr. Jesus White CPAP [facility] Comment on above: Performed By: #### A BG ####[facility] [address] [place], [place] [address]Dr. Jesus White FIO2 Normal [facility] Comment on above: Performed By: #### A BG ####[facility] [address] [place], [place] [address]Dr. Jesus White HCO3 (Bld) [Moles/Vol] 24.7 mmol/L Normal 22.0-26.0 [facility] Comment on above: Performed By: #### A BG ####[facility] [address] [place], [place] [address]Dr. Jesus White LPM Normal [facility] Comment on above: Performed By: #### A BG ####[facility] [address] [place], [place] [address]Dr. Jesus White MINUTE VOLUME Normal [facility] Comment on above: Performed By: #### A BG ####[facility] [address] [place], [place] [address]Dr. Jesus White Oxygen (Bld) [Partial pressure] 75.3 mm[Hg] Critically low 80.0-100.0 [facility] Comment on above: Performed By: #### A BG ####[facility] [address] [address]Dr. Jesus White Oxygen saturation in Blood 94.7 % Critically low 95.0-100.0 [facility] Comment on above: Performed By: #### A BG ####[facility] [address] [address]Dr. Jesus White PCO2 42.0 mmHg Normal 35.0-45.0 [facility] Comment on above: Performed By: #### A BG ####[facility] [address] [address]Dr. Jesus White PEEP [facility] Comment on above: Performed By: #### A BG ####[facility] [address] [address]Dr. Jesus White pH (Bld) 7.379 [pH] Normal 7.350-7.450 [facility] Comment on above: Performed By: #### A BG ####[facility] [address] [place], [place] [address]Dr. Jesus White PIP [facility] Comment on above: Performed By: #### A BG ####[facility] [address] [place], [place] [address]Dr. Jesus White PS [facility] Comment on above: Performed By: #### A BG ####[facility] [address] [place], [place] [address]Dr. Jesus White PUNCTURE SITE LR [facility] Comment on above: Performed By: #### A BG ####[facility] [address] [place], [place] [address]Dr. Jesus White RATE [facility] Comment on above: Performed By: #### A BG ####[facility] [address] [place], [place] [address]Dr. Jesus White VENT MODE [facility] Comment on above: Performed By: #### A BG ####[facility] [address] [place], [place] [address]Dr. Jesus White VT [facility] Comment on above: Performed By: #### A BG ####[facility] [address] [place], [place] [address]V[address]Dr. Jesus White CBC AUTO DIFFon 04-08-2022 BASO # 0.1 103/ul Normal 0.0-0.1 [facility] Comment on above: Performed By: #### C BC #### [facility] [id number] Jesus White Basophils/100 WBC (Bld) 0.6 % Normal 0.2-2.0 [facility] Comment on above: Performed By: #### C BC #### [facility] [address] [address] [address] Jesus White EO # 0.2 103/ul Normal 0.0-0.7 [facility] Comment on above: Performed By: #### C BC #### [facility] [address] [address] [address] Jesus White Eosinophils/100 WBC (Bld) 1.5 % Normal 0.9-7.0 [facility] Comment on above: Performed By: #### C BC #### [facility] [address] [address] [address] Jesus White Erythrocyte distribution width (RBC) [Ratio] 13.2 % Normal 11.0-15.0 [facility] Comment on above: Performed By: #### C BC #### [facility] [address] [address] [address] Jesus White Hematocrit (Bld) [Volume fraction] 41.7 % Critically low 42.0-54.0 [facility] Comment on above: Performed By: #### C BC #### [facility] [id number] Jesus White Hemoglobin (Bld) [Mass/Vol] 14.3 g/dL Normal 14.0-18.0 [facility] Comment on above: Performed By: #### C BC #### [facility] [address] [address] [address] Jesus White IG # 0.03 10e3/ul Normal 0.00-0.03 [facility] Comment on above: Performed By: #### C BC #### [facility] [address] [place] [address] Dr. Jesus White IG % 0.3 % Normal 0.0-0.5 [facility] Comment on above: Performed By: #### C BC #### [facility] [address] [place] [address] Dr. Jesus White LYMPH # 5.6 103/ul Critically high 1.2-3.8 [facility] Comment on above: Performed By: #### C BC #### [facility] [address] [place] [address] Dr. Jesus White Lymphocytes/100 WBC (Bld) 57.0 % Normal 20.5-60.0 [facility] Comment on above: Performed By: #### C BC #### [facility] [address] [place] [address] Dr. Jesus White MANUAL DIFF REQ NO Normal [facility] Comment on above: Performed By: #### C BC #### [facility] [address] [place] [address] Dr. Jesus White MCH (RBC) [Entitic mass] 31.4 pg Normal 25.9-34.0 [facility] Comment on above: Performed By: #### C BC #### [facility] [address] [place] [address] Dr. Jesus White MCHC (RBC) [Mass/Vol] 34.3 g/dL Normal 29.9-35.2 [facility] Comment on above: Performed By: #### C BC #### [facility] [address] [place] [address] Dr. Jesus White MCV (RBC) [Entitic vol] 91.6 fL Normal 80.0-94.0 [facility] Comment on above: Performed By: #### C BC #### [facility] [address] [place] [address] Dr. Jesus White MONO # 0.5 103/ul Normal 0.3-0.8 [facility] Comment on above: Performed By: #### C BC #### [facility] [address] [address] [address] Jesus White Monocytes/100 WBC (Bld) 5.1 % Normal 1.7-12.0 [facility] Comment on above: Performed By: #### C BC #### [facility] [address] [address] [address] Jesus White NEUT # 3.5 103/ul Normal 1.4-6.5 [facility] Comment on above: Performed By: #### C BC #### [facility] [address] [address] [address] Jesus White Neutrophils/100 WBC (Bld) 35.5 % Critically low 43.0-75.0 [facility] Comment on above: Performed By: #### C BC #### [facility] [address] [place] [address] Dr. Jesus White Platelet mean volume (Bld) [Entitic vol] 9.5 fL Normal 9.5-13.5 [facility] Comment on above: Performed By: #### C BC #### [facility] [address] [place] [address] Dr. Jesus White PLT 222 103/ul Normal 150-450 [facility] Comment on above: Performed By: #### C BC #### [facility] [address] [place] [address] Dr. Jesus White RBC 4.55 106/ul Critically low 4.70-6.10 [facility] Comment on above: Performed By: #### C BC #### [facility] [address] [place] [address] Dr. Jesus White WBC 9.8 103/ul Normal 4.0-11.0 [facility] Comment on above: Performed By: #### C BC #### [facility] [address] [place] [address] STROKE HEAD WOon 04-08-20 CT STROKE HEAD WO EXAMINATION: CT STROKE HEAD WO HISTORY: Slurred speech COMPARISON: None. TECHNIQUE: CT examination of the head without IV contrast. Dose reduction techniques were achieved by using automated exposure control and/or adjustment of mA and/or kV according to patient size and/or use of iterative reconstruction technique. FINDINGS: No midline shift, mass effect or intracranial hemorrhage. Mucosal thickening of the bilateral maxillary sinuses with retention cyst is noted inferiorly within the left maxillary sinus. Mild mucosal thickening of the bilateral ethmoidal air cells. IMPRESSION: 1. No acute intracranial process is identified. 2. Mucosal thickening of the bilateral maxillary sinuses and bilateral ethmoidal air cells. Left maxillary sinus retention cyst. Electronically authenticated by: ERNA LEON Date: 2022-04-08 18:50 Normal [facility] Covid-19 PCR (CVDTBH)on SARS-CoV-2 (COVID-19) RNA PAUL+probe Ql (Unsp spec) Not detected Normal NOT DETECTED [facility] Comment on above: Result Comment: When diagnostic testing is negative, the possibility of a false negative should be considered in the context of a patient's recent exposures and the presence of clinical signs and symptoms consistent with SARS-CoV-2. This test is not yet approved or cleared by the [place] FDA. When there are no FDA-approved or cleared tests available, and other criteria are met, FDA can make tests available under an emergency access mechanism called an Emergency Use Authorization (EUA). The EUA for this test is supported by the [place] of Health and Human Service's declaration that circumstances exist to justify the emergency use of in vitro diagnostics for the detection and/or diagnosis of the virus that causes COVID-19. This EUA will remain in effect for the duration of the COVID-19 declaration justifying emergency of IVDs, unless it is terminated or revoked by the FDA (after which the test may no longer be used). Performed By: #### C VDTBH #### [facility] [address] [place], [place] [address] Dr. Jesus White ETHANOL (BLD ALC)on 04-08-20 22 ALC NOTE NOTE: 80 mg/dl is th e legal limit for a blood alcohol level Normal [facility] Comment on above: Performed By: #### E TH ####[facility] [address] [place], [place] [address]LyDr. Jesus White Ethanol [Mass/Vol] 344 mg/dL Normal [facility] Comment on above: Performed By: #### E TH ####[facility] [address] [address]Dr. Jesus White PROF 14(COMP METB)on 022 Albumin [Mass/Vol] 3.5 g/dL Normal 3.4-5.0 [facility] Comment on above: Performed By: #### C JORGE HSTROPN #### [facility] [address] [address] [address] Jesus White Albumin/Globulin [Mass ratio] 1.0 {ratio} Normal [facility] Comment on above: Performed By: #### C JORGE HSTROPN #### [facility] [address] [address] [address] Jesus White ALP [Catalytic activity/Vol] 41 U/L Critically low 46-116 [facility] Comment on above: Performed By: #### C JORGE HSTROPN #### [facility] [address] [address] [address] Jesus White ALT [Catalytic activity/Vol] 28 U/L Normal 16-63 [facility] Comment on above: Performed By: #### C JORGE HSTROPN #### [facility] [address] [address] [address] Jesus White Anion gap [Moles/Vol] 12.1 mmol/L Normal [facility] Comment on above: Performed By: #### C JORGE HSTROPN #### [facility] [address] [address] [address] Jesus White AST [Catalytic activity/Vol] 19 U/L Normal 15-37 [facility] Comment on above: Performed By: #### C JORGE HSTROPN #### [facility] [address] [address] [address] Jesus White Bilirubin [Mass/Vol] 0.3 mg/dL Normal 0.2-1.0 [facility] Comment on above: Performed By: #### C JORGE HSTROPN #### [facility] [address] [address] [address] Jesus White Calcium [Mass/Vol] 8.8 mg/dL Normal 8.5-10.1 [facility] Comment on above: Performed By: #### C MP, HSTROPN #### [facility] [address] [place] [address] Dr. Jesus White Chloride [Moles/Vol] 105 mmol/L Normal 98-107 [facility] Comment on above: Performed By: #### C MP, HSTROPN #### [facility] [address] [place] [address] Dr. Jesus White CO2 [Moles/Vol] 24.8 mmol/L Normal 21.0-32.0 [facility] Comment on above: Performed By: #### C MP, HSTROPN #### [facility] [address] [place] [address] Dr. Jesus White Creatinine [Mass/Vol] 1.53 mg/dL Critically high 0.70-1.30 [facility] [facility] Comment on above: Performed By: #### C MP, HSTROPN #### [facility] [address] [place] [address] Dr. Jesus White EGFR-AF ITALIAN 55 mL/min/1.73m2 Critically low >=60 [facility] Comment on above: Result Comment: Prev iously reported as: (blank) On 04/08/2022 19:15 By MH Performed By: #### C MP, HSTROPN #### [facility] [address] [place] [address] Dr. Jesus White EGFR-NON AF ITALIAN 46 mL/min/1.73m2 Critically low >=60 [facility] Comment on above: Result Comment: Prev iously reported as: (blank) On 04/08/2022 19:15 By MH Performed By: #### C MP, HSTROPN #### [facility] [address] [place] [address] Dr. Jesus White Globulin (S) [Mass/Vol] 3.5 g/dL Normal [facility] Comment on above: Performed By: #### C MP, HSTROPN #### [facility] [address] [address] [address] Jessu White Glucose [Mass/Vol] 116 mg/dL Critically high 74-106 [facility] Comment on above: Performed By: #### C MP, HSTROPN #### [facility] [address] [address] [address] Jesus White Potassium [Moles/Vol] 3.9 mmol/L Normal 3.5-5.1 [facility] Comment on above: Performed By: #### C MP, HSTROPN #### [facility] [address] [address] [address] Jesus White Protein [Mass/Vol] 7.0 g/dL Normal 6.4-8.2 [facility] Comment on above: Performed By: #### C MP, HSTROPN #### [facility] [address] [address] [address] Jesus White Sodium [Moles/Vol] 138 mmol/L Normal 136-145 [facility] Comment on above: Performed By: #### C MP, HSTROPN #### [facility] [address] [address] [address] Jesus White Urea nitrogen [Mass/Vol] 17.0 mg/dL Normal 7.0-18.0 [facility] Comment on above: Performed By: #### C MP, HSTROPN #### [facility] [address] [address] [address] Jesus White Urea nitrogen/Creatinine [Mass ratio] 11.1 mg/mg Normal [facility] Comment on above: Performed By: #### C MP, HSTROPN #### [facility] [address] [address] [address] Jesus White PROTIMEon 04-08-2022 INR Coag (PPP) [Relative time] 1.00 {INR} Normal [facility] Comment on above: Performed By: #### P TT, PT ####[facility] [address] [address]Dr. Jesus White INR GUIDELINES SEE BELOW Normal [facility] Comment on above: Result Comment: JULIET RED INR: 2.0 - 3.0 CONDITIONS NOT LISTED BELOW 2.5 - 3.5 FOR PROSTHETIC HEART VALVE REPLACEMENT 2.5 - 3.5 RECURRENT THROMBOSIS Performed By: #### P TT, PT ####[facility] [id number] [id number]. Jesus White PT Coag (PPP) [Time] 10.8 s Normal 9.0-11.6 [facility] Comment on above: Performed By: #### P TT, PT ####[facility] [address] [address]DrJordin White PTTon 04-08-2022 aPTT Coag (Bld) [Time] 24.8 s Normal 22.3-36.2 [facility] Comment on above: Performed By: #### P TT, PT ####[facility] [address] [address]Dr. Jesus White TROPONIN, HIGH SENSITIVITYon 04-08-2022 HSTROP 16.7 pg/mL Normal 4.0-76.1 [facility] Comment on above: Result Comment: CUT- OFF POINTS HAVE BEEN ESTABLISHED BASED ON THE FOURTH UNIVERSAL DEFINITIONS OF MYOCARDIAL INFARCTION. THE UPPER REFERENCE LIMIT (URL) OF TROPONIN, DEFINED THE 99TH PERCENTILE OF cTnI DISTRIBUTION IN A REFERENCE POPULATION, HAS BEEN CONFIRMED THE DECISION THRESHOLD FOR [place] DIAGNOSIS. Performed By: #### C MP, HSTROPN #### [facility] [address] [place] [address] Dr. Jesus White PROF CHEM 8 (BAS METB)on Anion gap [Moles/Vol] 13.3 mmol/L Normal [facility] Comment on above: Performed By: #### B MP #### [facility] [address] [place] [address] Dr. Jesus White Calcium [Mass/Vol] 9.7 mg/dL Normal 8.5-10.1 [facility] Comment on above: Performed By: #### B MP #### [facility] [address] [place] [address] Dr. Jesus White Chloride [Moles/Vol] 103 mmol/L Normal 98-107 [facility] Comment on above: Performed By: #### B MP #### [facility] [address] [place] [address] Dr. Jesus White CO2 [Moles/Vol] 28.4 mmol/L Normal 21.0-32.0 [facility] Comment on above: Performed By: #### B MP #### [facility] [address] [address] [address] Jesus White Creatinine [Mass/Vol] 1.21 mg/dL Normal 0.70-1.30 [facility] Comment on above: Performed By: #### B MP #### [facility] [address] [place] [address] Dr. Jesus White EGFR-AF ITALIAN >60 Normal >=60 [facility] Comment on above: Performed By: #### B MP #### [facility] [address] [place] [address] Dr. Jesus White EGFR-NON AF ITALIAN 60 mL/min/1.73m2 Normal >=60 [facility] Comment on above: Performed By: #### B MP #### [facility] [address] [place] [address] Dr. Jesus White Glucose [Mass/Vol] 95 mg/dL Normal 74-106 [facility] Comment on above: Performed By: #### B MP #### [facility] [address] [place] [address] Dr. Jesus White Potassium [Moles/Vol] 3.7 mmol/L Normal 3.5-5.1 [facility] Comment on above: Performed By: #### B MP #### [facility] [address] [address] [address] Jesus White Sodium [Moles/Vol] 141 mmol/L Normal 136-145 [facility] Comment on above: Performed By: #### B MP #### [facility] [address] [place] [address] Dr. Jesus White Urea nitrogen [Mass/Vol] 12.0 mg/dL Normal 7.0-18.0 [facility] Comment on above: Performed By: #### B MP #### [facility] [address] [address] [address] Jesus White Urea nitrogen/Creatinine [Mass ratio] 9.9 mg/mg Normal [facility] Comment on above: Performed By: #### B MP #### [facility] [address] [address] [address] Jesus White ER URINE PROFILEon 2 Bilirubin Ql (U) Negative Normal NEGATIVE [facility] Comment on above: Performed By: #### Júnior BARNES UMICRO ####[facility] [address] [address]Dr. Jesus White Clarity (U) CLEAR Normal CLEAR [facility] Comment on above: Performed By: #### Júnior BARNES UMICRO ####[facility] [address] [address]Dr. Jesus White Color (U) LT. YELLOW Normal YELLOW [facility] Comment on above: Performed By: #### Júnior BARNES UMICRO ####[facility] [address] [address]Dr. Jesus MONTEJO A micrscopic examination will be performed if indicated. Normal [facility] Comment on above: Performed By: #### Júnior BARNES UMICRO ####[facility] [address] [address]Dr. Jesus White Glucose Ql (U) Negative Normal NEGATIVE [facility] Comment on above: Performed By: #### Júnior BARNES UMICRO ####[facility] [address] [address]Dr. Jesus White Hemoglobin Ql (U) Negative Normal NEGATIVE [facility] Comment on above: Performed By: #### Júnior BARNES UMICRO ####[facility] [address] [address]Dr. Jesus White Ketones Ql (U) Negative Normal NEGATIVE [facility] Comment on above: Performed By: #### Júnior BARNES UMICRO ####[facility] [address] [address]Dr. Jesus White LEUKOCYTES Negative Normal NEGATIVE [facility] Comment on above: Performed By: #### CALEB GOULD ####[facility] [address] [address]Dr. Carolliseth White Nitrite Ql (U) Negative Normal NEGATIVE [facility] Comment on above: Performed By: #### CALEB GOULD ####[facility] [address] [address]Dr. Jesus White pH (U) 6.0 [pH] Normal 5-9 [facility] Comment on above: Performed By: #### CALEB GOULD ####[facility] [address] [place], [place] [address]Dr. Jesus White SPEC GRAVITY <=1.005 Abnormal 1.005-<=1.025 [facility] Comment on above: Performed By: #### CALEB GOULD ####[facility] [address] [place], [place] [address]Dr. Jesus White UA PROTEIN Negative Normal NEGATIVE/ TRACE [facility] Comment on above: Performed By: #### CALEB GOULD ####[facility] [address] [place], [place] [address]Dr. Jesus White UR MICRO IND INDICATED Normal [facility] Comment on above: Performed By: #### CALEB GOULD ####[facility] [address] [place], [place] [address]Dr. Jesus White Urobilinogen Qn (U) 0.2 {Dash'U}/dL Normal 0.2 - 1. 0 [facility] Comment on above: Performed By: #### CALEB GOULD ####[facility] [address] [place], [place] [address]Dr. Jesus White URINE MICROSCOPIC ONLYon BACTERIA NONE SEEN Normal NONE SEEN [facility] Comment on above: Performed By: #### CALEB GOULD ####[facility] [address] [address]Dr. Jesus White Bacteria identified Cx Nom (U) NOT INDICATED Normal [facility] Comment on above: Performed By: #### CALEB GOULD ####[facility] [address] [address]Dr. Jesus White CAST NONE SEEN Normal NONE SEEN [facility] Comment on above: Performed By: #### VALERIO GOULDRO ####[facility] [address] [address]Dr. Jesus White Crystals LM Nom (Urine sed) NONE SEEN Normal NONE SEEN [facility] Comment on above: Performed By: #### CALEB GOULD ####[facility] [address] [address]Dr. Jesus White Epithelial cells LM Ql (Urine sed) RARE Normal NONE SEEN /RARE [facility] Comment on above: Performed By: #### VALERIO GOULDRO ####[facility] [address] [address]Dr. Jesus White MUCOUS NONE SEEN Normal NONE SEEN [facility] Comment on above: Performed By: #### CALEB GOULD ####[facility] [address] [place], [place] [address]Dr. Jesus White RBC NONE SEEN Abnormal 0-2 [facility] Comment on above: Performed By: #### CALEB GOULD ####[facility] [address] [address]Dr. Jesus White WBC NONE SEEN Normal NONE SEEN [facility] Comment on above: Performed By: #### VALERIO GOULDRO ####[facility] [address] [place], [place] [address]Dr. Jesus White US CRYSTAL DOP LEG LTon 01-02-20 US CRYSTLA DOP LEG LT Ultrasound venous duplex scan left lower extremity CLINICAL: Left groin to knee pain for one day. TECHNIQUE: Servin-scale, color Doppler and Duplex examination of the left lower extremity was performed with and without provocative maneuvers. FINDINGS: Comparison: None. Sonographic examination of the left lower extremity deep venous system to include the common femoral, superficial femoral and popliteal veins, demonstrates normal compressibility, color-flow, respiratory variation, and augmentation. The greater saphenous vein demonstrates normal compression. There is normal color-flow in the proximal profunda femoral vein. There is normal compression of the peroneal, posterior tibial, and anterior tibial veins. Small saphenous vein also normal compression. IMPRESSION: 1. No deep venous thrombosis or superficial venous thrombus in the left lower extremity. Electronically authenticated by: VARSHA BARNARD Date: 2022-01-01 08:49 Normal [facility] Vital Signs Date Time Vital Sign Value Performing Clinician Facility 03-17-2023 15:20-0400 Body height 177.8 cm Jose Julien Other [facility] Other 03-17-2023 15:20-0400 Body mass index (BMI) [Ratio] 31.96 kg/m2 Jose Julien Other [facility] Other 03-17-2023 15:20-0400 Body temperature 96.9 [degF] Jose Julien Other [facility] Other 03-17-2023 15:20-0400 Body weight 101.06 kg Jose Julien Other [facility] Other 03-17-2023 15:20-0400 Diastolic blood pressure 73 mm[Hg] Jose Julien Other [facility] Other 03-17-2023 15:20-0400 Respiratory rate 18 /min Jose Julien Other [facility] Other 03-17-2023 15:20-0400 SaO2% (BldA) [Mass fraction] 98 % Jose Julien Other [facility] Other 03-17-2023 15:20-0400 Systolic blood pressure 134 mm[Hg] Jose Julien Other [facility] Other 09-30-2022 11:20-0400 Body height 177.8 cm Jose Julien Other [facility] Other 09-30-2022 11:20-0400 Body mass index (BMI) [Ratio] 33.6 kg/m2 Jose Julien Other [facility] Other 09-30-2022 11:20-0400 Body temperature 96.3 [degF] Jose Julien Other [facility] Other 09-30-2022 11:20-0400 Body weight 106.23 kg Jose Julien Other [facility] Other 09-30-2022 11:20-0400 Diastolic blood pressure 64 mm[Hg] Jose Julien Other [facility] Other 09-30-2022 11:20-0400 Respiratory rate 18 /min Jose Julien Other [facility] Other 09-30-2022 11:20-0400 SaO2% (BldA) [Mass fraction] 99 % Jose Julien Other [facility] Other 09-30-2022 11:20-0400 Systolic blood pressure 138 mm[Hg] Jose Julien Other [facility] Other 03-22-2022 14:00-0400 Body height 177.8 cm Jose Julien Other [facility] Other 03-22-2022 14:00-0400 Body mass index (BMI) [Ratio] 33.14 kg/m2 Jose Julien Other [facility] Other 03-22-2022 14:00-0400 Body temperature 95.9 [degF] Jose Julien Other [facility] Other 03-22-2022 14:00-0400 Body weight 104.78 kg Jose Julien Other [facility] Other 03-22-2022 14:00-0400 Diastolic blood pressure 70 mm[Hg] Jose Julien Other [facility] Other 03-22-2022 14:00-0400 Respiratory rate 18 /min Jose Julien Other [facility] Other 03-22-2022 14:00-0400 SaO2% (BldA) [Mass fraction] 97 % Jose Julien Other [facility] Other 03-22-2022 14:00-0400 Systolic blood pressure 119 mm[Hg] Jose Julien Other [facility] Other 06-18-2021 11:40-0500 Body height 177.8 cm Jose Julien Other [facility] Other 06-18-2021 11:40-0500 Body mass index (BMI) [Ratio] 37.22 kg/m2 Jose Julien Other [facility] Other 06-18-2021 11:40-0500 Body temperature 95.9 [degF] Jose Julien Other [facility] Other 06-18-2021 11:40-0500 Body weight 117.66 kg Jose Julien Other [facility] Other 06-18-2021 11:40-0500 Diastolic blood pressure 70 mm[Hg] Jose Julien Other [facility] Other 06-18-2021 11:40-0500 Respiratory rate 18 /min Jose Julien Other [facility] Other 06-18-2021 11:40-0500 SaO2% (BldA) [Mass fraction] 97 % Jose Julien Other [facility] Other 06-18-2021 11:40-0500 Systolic blood pressure 124 mm[Hg] Jose Julien Other [facility] Other Encounters Encounter Date Encounter Type Care Provider Facility Start: 10-17-2023 ambulatory Carlos HOLLINS Facility :[facility] Start: 05-10-2023 End: 05-10-2023 ambulatory SHAIKH ALDAIR Not Available Start: 03-17-2023 End: 03-17-2023 ambulatory Joes Julien Other [facility] Other Start: 03-17-2023 Office outpatient vi sit 15 minutes Jose Julien [facility] Start: 10-15-2022 End: 10-16-2022 ambulatory Carlos HOLLINS Facility:[facility] Start: 10-11-2022 End: 10-12-[address] CARLOS HOLLINS Facility: Start: 09-30-2022 End: 09-30-2022 ambulatory Jose Julien Other [facility] Other Start: 09-30-2022 Office outpatient vi sit 15 minutes Jose Julien [facility] Start: 08-24-2022 ambulatory Carlos HOLLINS Facility :[facility] Start: 08-23-2022 End: 08-24-2022 ambulatory SHAIKH Nancy QUINTEROS Facility:[facility] Start: 07-05-2022 End: 07-06-2022 ambulatory RUKHSANA AGUILAR . Facility:[facility] Start: 04-08-2022 End: 04-08-[address] COLTEN NUNO . Facility:[facility] Start: 03-24-2022 End: 03-25-2022 ambulatory RUKHSANA SAMSA . Facility:[facility] Start: 03-22-2022 End: 03-22-2022 ambulatory Jose Julien Other [facility] Other Start: 03-22-2022 Office outpatient vi sit 25 minutes Jose Julien [facility] Start: 02-16-2022 End: 02-17-2022 ambulatory Nancy ALDAIR Facility:[facility] Start: 01-01-2022 End: 01-01-[address] LUNA DUFFY . Facility:[facility] Start: 06-21-2021 End: 06-21-2021 ambulatory Jose Julien Other [facility] Other Start: 06-21-2021 Telephone encounter Jose Julien [facility] Start: 06-18-2021 End: 06-18-2021 ambulatory Jose Julien Other [facility] Other Start: 06-18-2021 Office outpatient vi sit 25 minutes Jose Julien [facility] Procedures Date Procedure Procedure Detail Performing Clinician Start: 10-11-[address] WINIFRED HOLLINS Comment on above: Performed By: #### P SAD ####[address] [address]DrJordin White Payers Date Payer Category Payer Medicare [id number] 2. [id number] 1955 Unknown [id number] 2.16.8 [id number] 1955 Unknown [id number] 2.16.8 [id number] 1955 Unknown [id number] 2.16.8 [id number] 1955 Unknown [id number] 2.16.84 [id number] 1955 Unknown [id number] 2.16.84 [id number] 1955 Unknown [id number] 2.16.84 [id number] 1955 Unknown [id number] 2.16.84 [id number] 1955 Unknown [id number] 2.16.84 [id number] 1955 Unknown [id number] 2.16.84 [id number] 1955 Unknown [id number] 2.16.84 [id number] 1955 Unknown [id number] 2.16.84 [id number] 1955 Unknown [id number] 2.16.840 .[id number] Social History Date Type Detail Facility Unknown if ever smoked [facility] Other Sex Assigned At Sex Assigned At Bir th [facility] Other Evaluation note 03-17-2023 Note Date & Type Note Facility 03-17-2023 Evaluation note Encounter Date Diagnosis Assessment Notes Mar, Joseph hy kid w cr kid I-IV (ICD-10 - I12.9) Blood pressure is controlled. He appears to be euvolemic. Continue current medications. Mar, Chronic kidney disease, stage III (moderate) (ICD-10 - N18.30) He has CKD longstanding hypertension. His baseline serum creatinine is 1- 1.2 mg/dL. He has no evidence of hematuria or proteinuria on UA.. I discussed with him the importance of good HTN control to slow down the progression of CKD. Mar, Secondary hyperparathyroidism (ICD-10 - N25.81) MBD parameters including calcium, phosphorus, PTH and vitamin D are within the goal. Mar, Solitary kidney (ICD-10 - Q60.0) He has a solitary right kidney. Mar, Hyperuricemia (ICD-10 - E79.0) He has hyperuricemia due to the CKD and reported to have gout. Continue oral Allopurinol Mar, Anemia in chronic kidney disease (ICD-10 - D63.1) Hemoglobin is within the goal. We will check iron studies. He will need a GI work-up if has not done in the recent past. Will defer this to the PCP. Mar, Hypomagnesemia (ICD-10 - E83.42) Advised him to increase the magnesium intake in his diet. Provide information about it. Mar, Dyslipidemia (ICD-10 - E78.5) Continue statins. Monitor LFTs and lipid profile with PCP. [facility] Other Evaluation note 09-30-2022 Note Date & Type Note Facility 09-30-2022 Evaluation note Encounter Date Diagnosis Assessment Notes Sep, Joseph hy kid w cr kid I-IV (ICD-10 - I12.9) Blood pressure is controlled. He appears to be euvolemic. Continue current medications. Sep, Chronic kidney disease, stage III (moderate) (ICD-10 - N18.30) He has CKD longstanding hypertension. His baseline serum creatinine is 1- 1.2 mg/dL. He has no evidence of hematuria or proteinuria on UA.. I discussed with him the importance of good HTN control to slow down the progression of CKD. Sep, Secondary hyperparathyroidism (ICD-10 - N25.81) MBD parameters including calcium, phosphorus, PTH and vitamin D are within the goal. Sep, Solitary kidney (ICD-10 - Q60.0) He has a solitary right kidney. Sep, Hyperuricemia (ICD-10 - E79.0) He has hyperuricemia due to the CKD and reported to have gout. I have prescribed oral Allopurinol [facility] Other Evaluation note 03-22-2022 Note Date & Type Note Facility 03-22-2022 Evaluation note Encounter Date Diagnosis Assessment Notes Mar, Joseph hy kid w cr kid I-IV (ICD-10 - I12.9) Blood pressure is controlled. He appears to be euvolemic. Continue current medications. Mar, Chronic kidney disease, stage III (moderate) (ICD-10 - N18.30) He has CKD longstanding hypertension. His serum creatinine is 1.4 mg/dL above his baseline serum creatinine is 1.2 mg/dL. This may be either due to hemodynamic changes or progression of CKD. He has no evidence of hematuria or proteinuria on UA.. I discussed with him the importance of good HTN control to slow down the progression of CKD. Mar, Secondary hyperparathyroidism (ICD-10 - N25.81) MBD parameters including calcium, phosphorus, PTH and vitamin D are within the goal. Mar, Solitary kidney (ICD-10 - Q60.0) He has a solitary right kidney. Mar, Hyperuricemia (ICD-10 - E79.0) He has hyperuricemia due to the CKD and reported to have gout. I have prescribed oral Allopurinol [facility] Other Clinical Note 01-01-2022 Note Date & Type Note Facility 01-01-2022 Note PROCEDURE: XR FEMUR LT HISTORY: Pain within medial left thigh; no known injury COMPARISON: None. FINDINGS: BONES:No fracture, acute abnormality, or significant arthropathy. SOFT TISSUES:Moderate atherosclerotic disease. EFFUSION:None visible. OTHER: Prior radioactive seeding of the prostate. IMPRESSION: 1. No acute bone abnormality or significant degenerative joint disease. 2. No specific findings to account for patient's symptoms. Electronically authenticated by: LUCAS GOLDSTEIN Date: 2022-01-01 08:35 [facility] Evaluation note 06-18-2021 Note Date & Type Note Facility 06-18-2021 Evaluation note Encounter Date Diagnosis Assessment Notes Jun, Joseph hy kid w cr kid I-IV (ICD-10 - I12.9) Blood pressure is controlled. He appears to be euvolemic. Continue current medications. Jun, Chronic kidney disease, stage III (moderate) (ICD-10 - N18.30) He has CKD longstanding hypertension. His baseline serum creatinine is 1.2 mg/dL. He has no evidence of hematuria or proteinuria on UA.. I discussed with him the importance of good HTN control to slow down the progression of CKD. Jun, Secondary hyperparathyroidism (ICD-10 - N25.81) MBD parameters including calcium, phosphorus, PTH and vitamin D are within the goal. Jun, Solitary kidney (ICD-10 - Q60.0) He has a solitary right kidney. [facility] Other Evaluation note Note Date & Type Note Facility Evaluation note No Information [facility] Other History general Narrative - Reported Note Date & Type Note Facility History general Narrative - Reported [facility] Other History general Narrative - Reported Note Date & Type Note Facility History general Narrative - Reported Type Medical History Obstructive sleep apnea Medical History Hypoxia, sleep related Medical History Nicotine addiction Medical History heart murmur Medical History CHRONIC OBSTRUCTIVE PULMONARY DISEASE Medical History CHRONIC KIDNEY DISEASE STAGE 3 Medical History HX OF PROSTATE CANCER Medical History HX OF KIDNEY CANCER Medical History HYPERTENSION Medical History OSTEOPOROSIS Medical History LOWER EXTREMEITY EDEMA Medical History GERD Medical History OBESITY Medical History TOBACCO USER Medical History HYPERLIPIDEMIA Medical History HEAD INJURY SEVERAL TIMES Medical History RHEUMATIC FEVER Medical History CMV HOSPITALIZED 8-10 WEEKS Surgical History hernia x7 Surgical History KIDNEY REMOVED 02/2001 Surgical History PROSTATE SEED IMPLANTS 2009 Surgical History MANY SUTURES IN HEAD AREA Hospitalization History see above Hospitalization History CMV Hospitalization History BLOOD PRESSURE W 60/40, DEHYDRATION 04/2021 [employer] Other History general Narrative - Reported Note Date & Type Note Facility History general Narrative - Reported Type Medical History Obstructive sleep apnea Medical History Hypoxia, sleep related Medical History Nicotine addiction Medical History heart murmur Medical History CHRONIC OBSTRUCTIVE PULMONARY DISEASE Medical History CHRONIC KIDNEY DISEASE STAGE 3 Medical History HX OF PROSTATE CANCER Medical History HX OF KIDNEY CANCER Medical History HYPERTENSION Medical History OSTEOPOROSIS Medical History LOWER EXTREMEITY EDEMA Medical History GERD Medical History OBESITY Medical History TOBACCO USER Medical History HYPERLIPIDEMIA Medical History HEAD INJURY SEVERAL TIMES Medical History RHEUMATIC FEVER Medical History CMV HOSPITALIZED 8-10 WEEKS Surgical History hernia x7 Surgical History KIDNEY REMOVED 02/2001 Surgical History PROSTATE SEED IMPLANTS 2009 Surgical History MANY SUTURES IN HEAD AREA Surgical History BILATERAL CATARACTS REMOVED Hospitalization History see above Hospitalization History CMV Hospitalization History BLOOD PRESSURE W 60/40, DEHYDRATION 04/2021 [employer] Other History general Narrative - Reported Note Date & Type Note Facility History general Narrative - Reported Type Medical History Obstructive sleep apnea Medical History Hypoxia, sleep related Medical History Nicotine addiction Medical History heart murmur Medical History CHRONIC OBSTRUCTIVE PULMONARY DISEASE Medical History CHRONIC KIDNEY DISEASE STAGE 3 Medical History HX OF PROSTATE CANCER Medical History HX OF KIDNEY CANCER Medical History HYPERTENSION Medical History OSTEOPOROSIS Medical History LOWER EXTREMEITY EDEMA Medical History GERD Medical History OBESITY Medical History TOBACCO USER Medical History HYPERLIPIDEMIA Medical History HEAD INJURY SEVERAL TIMES Medical History RHEUMATIC FEVER Medical History CMV HOSPITALIZED 8-10 WEEKS Surgical History hernia x7 Surgical History KIDNEY REMOVED 02/2001 Surgical History PROSTATE SEED IMPLANTS 2009 Surgical History MANY SUTURES IN HEAD AREA Surgical History BILATERAL CATARACTS REMOVED 202 3 Hospitalization History see above Hospitalization History CMV Hospitalization History BLOOD PRESSURE W 60/40, DEHYDRATION 04/2021 [employer] Other Summary Purpose Family History No Family History Records FoundNo Family History Records FoundNo Family History Records Found Advance Directives No Advanced Directives Records FoundNo Advanced Directives Records FoundNo Advanced Directives Records Found Additional Source Comments REASON FOR VISIT (unrecogniz ed section and content) CKD and HTNCKD (unrecognized sect ion and content) No Status Records FoundNo Status Records FoundNo Status Records Found INFORMATION SOURCE (unrecogn ized section and content) DATE CREATED AUTHOR 10/16/2022 [facility] DATE CREATED AUTHOR AUTHOR'S ORGANIZ ATION 11/12/2022 [facility] DATE CREATED AUTHOR AUTHOR'S ORGANIZ ATION 05/12/2023 [facility] EPIC FOR RECORDS PERTAINING TO PATIENTS WHO ARE OR HAVE BEEN ENROLLED IN A CHEMICAL DEPENDENCY/SUBSTANCEABUSE PROGRAM, SOME INFORMATION MAY BE OMITTED. This clinical summary was aggregated from multiple sources. Caution should be exercised in using it in the provision of clinical care. This summary normalizes information from multiple sources, and as a consequence, information in this document may materially change the coding, format and clinical context of patient data. In addition, data may be omitted in some cases. CLINICAL DECISIONS SHOULD BE BASED ON THE PRIMARY CLINICAL RECORDS. [facility] [employer] [facility]. provides no warranty or guarantee of the accuracy or completeness of information in this document.
--- NOTE | 2023-08-12 21:23 | ED_ITS ---
HPI - General Adult General Chief complaint: Abdominal Pain Stated complaint: Vomiting Blood Time Seen by Provider: 08/12/23 21:03 Source: patient and family Mode of arrival: Wheelchair Limitations: no limitations History of Present Illness HPI narrative: daily cigarette smoker. Does drink alcohol but not daily. last drink about 2 weeks ago. When he does drink he can drink 2/3 of a 5th of liquor. Denies any alcohol withdrawal or known liver disease. History of hiatal hernia. Describes dark stools past 4 days. Dry heaving yesterday and again tonight. Vomited bright red blood once tonight about an hour ago. Per his his emesis was large. No abdominal pain or dyspnea. No chest pain past history of renal carcinoma s/p left nephrectomy. History of prostate CA Related Data Home Medications Medication Instructions Recorded Confirmed albuterol sulfate 90 mcg/actuation 2 inh inhalation Q6H PRN shortness 04/02/23 08/12/23 aerosol inhaler of breath or wheezing atorvastatin 40 mg tablet 40 mg PO DAILY 04/02/23 08/12/23 budesonide-formoterol HFA 160 1 inh inhalation Q12H 04/02/23 08/12/23 mcg-4.5 mcg/actuation aerosol inhaler (Symbicort) furosemide 20 mg tablet 20 mg PO DAILY 04/02/23 08/12/23 losartan 50 mg tablet 50 mg PO DAILY 04/02/23 08/12/23 metoprolol tartrate 25 mg tablet 25 mg PO DAILY 04/02/23 08/12/23 tamsulosin 0.4 mg capsule 0.4 mg PO Q24H 04/02/23 08/12/23 vit C 250 mg-vit E 90 mg-zinc 40 1 tab PO QDAY 08/12/23 08/12/23 mg-copper 1 gx-gbtoti-quheik capsule (PreserVision AREDS-2) Previous Rx's Medication Instructions Recorded omeprazole 40 mg capsule,delayed 40 mg PO DAILY #30 caps 08/13/23 release Allergies Allergy/AdvReac Type Severity Reaction Status Date / Time No Known Drug Allergies Allergy Verified 08/12/23 21:08 Review of Systems ROS Status of ROS 10 or more systems reviewed and unremark able except as noted in history and below [facility] Medical History (Updated 08/15/23 @ 19:21 by Lucio Hickman MD) HLD (hyperlipidemia) ?E78.5 - Hyperlipidemia, unspecified (ICD-10) Chronic back pain ?M54.9 - Dorsalgia, unspecified (ICD-10) ?G89.29 - Other chronic pain (ICD-10) Alcohol abuse, in remission ?F10.11 - Alcohol abuse, in remission (ICD-10) Type 2 diabetes mellitus ?E11.9 - Type 2 diabetes mellitus without complications (ICD-10) COPD (chronic obstructive pulmonary disease) ?J44.9 - Chronic obstructive pulmonary disease, unspecified (ICD-10) Sleep apnea ?G47.30 - Sleep apnea, unspecified (ICD-10) Hypertension ?I10 - Essential (primary) hypertension (ICD-10) 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) Hiatal hernia ?K44.9 - Diaphragmatic hernia without obstruction or gangrene (ICD-10) Inguinal hernia bilateral, non-recurrent ?K40.20 - Bilateral inguinal hernia, without obstruction or gangrene, not specified as recurrent (ICD-10) Influenza ?J11.1 - Influenza due to unidentified influenza virus with other respiratory manifestations (ICD-10) Giardia ?A07.1 - Giardiasis [lambliasis] (ICD-10) CMV (cytomegalovirus) ?B25.9 - Cytomegaloviral disease, unspecified (ICD-10) Rheumatic fever ?I00 - Rheumatic fever without heart involvement (ICD-10) Prostate cancer ?C61 - Malignant neoplasm of prostate (ICD-10) Surgical History (Updated 08/13/23 @ 07:20 by Katharine Timmons RN) Burt teeth extracted ?K08.409 - Partial loss of teeth, unspecified cause, unspecified class (ICD- 10) History of nephrectomy, left ?Z90.5 - Acquired absence of kidney (ICD-10) Family History (Updated 08/13/23 @ 01:56 by Katharine Timmons RN) Other Family history of cancer Family history of diabetes mellitus Social History (Updated 08/13/23 @ 01:57 by Katharine Timmons, AMY) Within the past year, how often did you have a drink containing alcohol: 2-4 times a month Within the past year, how many standard drinks containing alcohol did you have on a typical day: 3 or 4 Within the past year, how often did you have six or more drinks on one occasion: less than monthly Total score: 3 Score interpretation: A score of 4 or more indicates drinking is likely to affect patient's safety. Smoking status: Current every day smoker Non-prescribed substance use: denies use Highest level of school completed/degree received: Associate degree: occupational, technical, vocational program Do you think of yourself as: straight/heterosexual Gender Identity: male Exam Constitutional Vital Signs, click to edit/add: Last Vital Signs Temp 97.9 F 08/13/23 08:22 Pulse 79 08/13/23 11:55 Resp 18 08/13/23 08:22 BP 167/83 H 08/13/23 08:22 Pulse Ox 92 L 08/13/23 11:55 O2 Del Method Room Air 08/13/23 08:22 Common normals: no apparent distress, average body habitus, oriented x3, no limitations, healthy appearing, alert and well nourished [place] Common normals: normocephalic and head/scalp atraumatic Eye Common normals: PERRL, EOMs intact bilaterally and conjunctivae normal Respiratory Common normals: normal respiratory effort, no retractions, no use of accessory muscles and clear to auscultation bilaterally Cardio Common normals: regular rate, regular rhythm, S1 normal heart sound and S2 normal heart sound GI Common normals: Normal to inspection, nondistended, normoactive bowel sounds present, soft to palpation and non-tender Extremity Common normals: normal to inspection and full ROM Neuro Common normals: oriented x3, CN's II-XII intact bilaterally, moves all extremities and no focal motor deficits Psych Appearance: grossly normal Course Vital Signs Vital signs: Vital Signs Temperature 98.1 F 08/12/23 21:01 Pulse Rate 61 08/12/23 21:01 Respiratory Rate 15 08/12/23 21:01 Blood Pressure 176/86 H 08/12/23 21:01 Pulse Oximetry 97 08/12/23 21:01 Oxygen Delivery Method Room Air 08/12/23 21:01 Temperature 97.9 F 08/13/23 08:22 Pulse Rate 79 08/13/23 11:55 Respiratory Rate 18 08/13/23 08:22 Blood Pressure 167/83 H 08/13/23 08:22 Pulse Oximetry 92 L 08/13/23 11:55 Oxygen Delivery Method Room Air 08/13/23 08:22 Medical Decision Making Lab Data Labs: Lab Results 08/12/23 08/12/23 08/12/23 Range/Units 21:14 23:26 23:45 WBC 7.9 (4.0-11.0) 10^3/uL RBC 4.49 L (4.70-6.10) 10^6/uL Hgb 14.3 (14.0-18.0) g/dL Hct 41.4 L (42.0-54.0) % MCV 92.2 (80.0-94.0) fL MCH 31.8 (25.9-34.0) pg MCHC 34.5 (29.9-35.2) g/dL RDW 13.2 (11.0-15.0) % Plt Count 217 (150-450) 10^3/uL MPV 10.6 (9.5-13.5) fL Neut % (Auto) 50.2 (43.0-75.0) % Lymph % (Auto) 37.3 (20.5-60.0) % [place] % (Auto) 9.6 (1.7-12.0) % Eos % (Auto) 2.2 (0.9-7.0) % Baso % (Auto) 0.6 (0.2-2.0) % Neut # (Auto) 4.0 (1.4-6.5) 10^3/uL Lymph # (Auto) 3.0 (1.2-3.8) 10^3/uL [place] # (Auto) 0.8 (0.3-0.8) 10^3/uL Eos # (Auto) 0.2 (0.0-0.7) 10^3/uL Baso # (Auto) 0.1 (0.0-0.1) 10^3/uL Abs Immat Gran (auto) 0.01 (0.00-0.03) 10^3/uL Imm/Tot Granulo (auto) 0.1 (0.0-0.5) % Sodium 143 (136-145) mmol/L Potassium 3.8 (3.5-5.1) mmol/L Chloride 104 (98-107) mmol/L Carbon Dioxide 30.8 (21.0-32.0) mmol/L Anion Gap 12.0 BUN 17.0 (7.0-18.0) mg/dL Creatinine 1.20 (0.70-1.30) mg/dL Est GFR ( Amer) >60 (>=60) Est GFR (Non-Af Amer) >60 (>=60) BUN/Creatinine Ratio 14.2 Glucose 95 (74-106) mg/dL Calcium 9.1 (8.5-10.1) mg/dL Total Bilirubin 0.6 (0.2-1.0) mg/dL AST 15 (15-37) U/L ALT 23 (16-63) U/L Alkaline Phosphatase 53 (46-116) U/L Troponin I High Sens 8.5 (4.0-76.1) pg/mL Total Protein 7.6 (6.4-8.2) g/dL Albumin 3.6 (3.4-5.0) g/dL Globulin 4.0 g/dL Albumin/Globulin Ratio 0.9 Lipase 32.0 (16.0-77.0) U/L TSH 2.739 (0.358-3.740) uIU/mL Free T4 0.99 (0.76-1.46) ng/dL Urine Color Yellow (YELLOW) Urine Clarity Clear (CLEAR) Urine pH 6.5 (5.0-9.0) Ur Specific [place] 1.020 (1.005-1.025) Urine Protein Negative (NEG/TRACE) mg/dL Urine Glucose (UA) Negative (NEGATIVE) mg/dL Urine Ketones Negative (NEGATIVE) mg/dL Urine Occult Blood Negative (NEGATIVE) Urine Nitrite Negative (NEGATIVE) Urine Bilirubin Negative (NEGATIVE) Urine Urobilinogen 0.2 (0.2-1.0) EU/dL Ur Leukocyte Esterase Negative (NEGATIVE) Stool Occult Blood Negative Discharge Plan Discharge Chief Complaint: Abdominal Pain Clinical Impression: Hematemesis with nausea Patient Disposition: Admitted as Observation Condition: Good Discharge Date/Time: 08/13/23 01:32
[2023-08-12 21:32] LABS: Basophils Absolute Auto 0.1 10^3/uL (0.0-0.1); Basophils Percent Auto 0.6 % (0.2-2.0); Eosinophils Absolute Auto 0.2 10^3/uL (0.0-0.7); Eosinophils Percent Auto 2.2 % (0.9-7.0); Hematocrit 41.4 % (42.0-54.0); Hemoglobin 14.3 g/dL (14.0-18.0); Immature Granulocytes Abs Auto 0.01 10^3/uL (0.00-0.03); Immature Granulocytes Pct Auto 0.1 % (0.0-0.5); Lymphocytes Percent Auto 37.3 % (20.5-60.0); Mean Corpuscular HGB Conc 34.5 g/dL (29.9-35.2); Mean Corpuscular Hemoglobin 31.8 pg (25.9-34.0); Mean Corpuscular Volume 92.2 fL (80.0-94.0); Mean Platelet Volume 10.6 fL (9.5-13.5); Monocytes Absolute Auto 0.8 10^3/uL (0.3-0.8); Monocytes Percent Auto 9.6 % (1.7-12.0); Neutrophils Percent Auto 50.2 % (43.0-75.0); Platelet Count 217 10^3/uL (150-450); Red Blood Count 4.49 10^6/uL (4.70-6.10); Red Cell Distribution Width 13.2 % (11.0-15.0); White Blood Count 7.9 10^3/uL (4.0-11.0)
[2023-08-12 21:45] LABS: Alanine Aminotransferase 23 U/L (16-63); Albumin Globulin Ratio 0.9; Albumin Level 3.6 g/dL (3.4-5.0); Alkaline Phosphatase 53 U/L (46-116); Aspartate Amino Transferase 15 U/L (15-37); BUN Creatinine Ratio 14.2; Bilirubin Total 0.6 mg/dL (0.2-1.0); Calcium 9.1 mg/dL (8.5-10.1); Carbon Dioxide 30.8 mmol/L (21.0-32.0); Chloride 104 mmol/L (98-107); Estimated GFR (African America >60 (>=60); Estimated GFR (Non-African Ame >60 (>=60); Glucose 95 mg/dL (74-106); Potassium 3.8 mmol/L (3.5-5.1); Sodium 143 mmol/L (136-145); Total Protein 7.6 g/dL (6.4-8.2); Troponin I High Sensitivity 8.5 pg/mL (4.0-76.1)
[2023-08-12] MEDS: 0.9 % SODIUM CHLORIDE 1,000 ML 100 ML IV (21:48)
[2023-08-12] MEDS: PANTOPRAZOLE SODIUM 40 MG VIAL IV (22:00)
[2023-08-12] MEDS: ONDANSETRON PF 4 MG/2 ML VIAL IV (22:00)
[2023-08-12] MEDS: FENTANYL CITRATE/PF 100 MCG/2 ML VIAL 50 MCG IV (22:05)
[2023-08-12 22:09] LABS: Free T4 0.99 ng/dL (0.76-1.46)
[2023-08-12 22:12] LABS: Thyroid Stimulating Hormone 2.739 uIU/mL (0.358-3.740)
--- NOTE | 2023-08-12 22:32 | CT_ITS ---
The [address] [address] Patient Name: BABEY IRVING MRN: [id number] date: 1955 Sex: M Assigned Patient Location: ER Current Patient Location: ER Accession/Order Number: [id number] Exam Date: 08/12/2023 22:54 Report Date: 08/12/2023 23:29 At the request of: HALI LÓPEZ Procedure: CT abdomen pelvis w con CT ABDOMEN AND PELVIS WITH CONTRAST: INDICATION: hematemesis. COMPARISON: 12/20/2020. TECHNIQUE:Multiple thin section transaxial slices were acquired through the abdomen and pelvis with intravenous contrast. Coronal and sagittal reconstructed images were reviewed. Oral contrastWas not administered. FINDINGS: LOWER CHEST: Dependent changes are present in the lung bases. A nasogastric tube traverses through the distal esophagus and extends into the stomach. LIVER: Calcifications are present along the periphery of the liver. GALLBLADDER AND BILIARY SYSTEM: No obvious ductal dilation. No calcified stones. SPLEEN: The spleen is unremarkable. PANCREAS: The pancreas is unremarkable. ADRENAL GLANDS: The adrenal glands are unremarkable. KIDNEYS AND URETERS: The left kidney is surgically absent.There is no hydronephrosis of the right kidney. There is a tiny hypodensity in the posterior right kidney likely representing a tiny cyst. The right ureter is within normal limits without obstructing urologic calcifications. VASCULATURE: There is heavy atherosclerotic plaque in the abdominal aorta without aneurysm. PERITONEUM/RETROPERITONEUM: Peritoneum/retroperitoneum is unremarkable. LYMPH NODES: No suspicious lymphadenopathy. GASTROINTESTINAL TRACT: The bowel is normal in caliber.There is chronic colonic diverticulosis of the colon without acute inflammation.The appendix is visualized and is not inflamed. There is some retained enteric contrast within the colonic bowel loops. BLADDER: The urinary bladder is unremarkable. REPRODUCTIVE SYSTEM: Multiple radiation seeds are present in the prostate gland. BODY WALL: There is a small right fat-containing inguinal hernia. BONES: There is a similar chronic deformity of the superior L1 vertebral body. CT/CT abdomen pelvis w con IMPRESSION: 1. No definitive acute inflammatory process or obstructive uropathy is identified in the abdomen or pelvis. 2. Status post left nephrectomy. Additional chronic findings elsewhere as discussed above. Electronically authenticated by: RAKAN GAY Date: 08/12/2023 23:29
[2023-08-12 22:39] VITALS: BP 172/91; PULSE 70; RESP 16; O2SAT 97
[2023-08-12 23:53] LABS: Bilirubin Urine NEGATIVE (NEGATIVE); Blood Urine NEGATIVE (NEGATIVE); Clarity Urine CLEAR (CLEAR); Color Urine YELLOW (YELLOW); Glucose Urine UA NEGATIVE (NEGATIVE); Ketones Urine NEGATIVE (NEGATIVE); Leukocyte Esterase Urine NEGATIVE (NEGATIVE); Nitrite Urine NEGATIVE (NEGATIVE); Protein Urine NEGATIVE (NEG/TRACE); Urobilinogen Urine 0.2 EU/dL (0.2-1.0); pH Urine 6.5 (5.0-9.0)
[2023-08-12 23:56] LABS: Urine Microscopic Indicated NO
[2023-08-13] VITALS (8 sets, daily range): BP systolic 167–179; BP diastolic 80–92; PULSE 60–80; RESP 16–20; TEMP 36.5–36.6; O2SAT 92–97; BMI 31.6
[2023-08-13 00:28] LABS: Occult Blood Negative
[2023-08-13] MEDS: FENTANYL CITRATE/PF 100 MCG/2 ML VIAL 50 MCG IV (01:25)
--- OUTSIDE RECORDS SUMMARY | 2023-08-13 01:37 | XMS_ITS | CCD ---
Author Name Unknown Address 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 Name Role Phone Jose Victoria Unavailable Carlos [...] ., DR CARRASCO Admitting Unavailable DR LUCAS GOLDSTENI Consulting Unavailable PAY ., DR CARRASCO Attending Unavailable FAWWAD, PATEL H Primary Care Unavailable PAY ., DR CARRASCO Consulting Unavailable AKIL, VARSHA Consulting Unavailable HAY ., DR ABEL Admitting Unavailable HAY ., DR ABEL Attending Unavailable GRECHNY ., PA THOMAS Consulting UnavailSHAIKH Nancy Keys Primary Care Unavailable DR COLTEN LANGE Consulting Unavailable DR DA ELISE Consulting Unavailable ERNA LEON Consulting Unavailable RUKHSANA DUPONT Attending Unavailable SHAIKH Nancy QUINTEROS Primary Care Unavailable RUKHSANA DUPONT Consulting Unavailable RUKHSANA DUPONT Admitting Unavailable SHAIKH QUINTEROS Attending Unavailable Allergies Allergy Classification Reported Allergen(s) Allergy Type Date of Onset Reaction(s) Facility (1 source) No Known Medication Allergies; Translations: [No Known Medication Allergies] Propensity to adverse reactions (disorder) [facility] Repository Medications Current Medications Medication Drug Class(es) Dates Sig (Normalized) Sig (Original) [id number] 200 actuat albuterol 0.09 mg/actuat metered dose [...] 04-12-2022 Episodic Other aftercare (1 source) Other alf (current) drug therapy; Translations: [OTH ALF CURRENT DRUG THERAPY] Onset: 04-12-2022 Episodic Other [...] if anything looks unusual. Men with a whlbio-ryyg-mkjsoz risk for skin cancer may want to see a storage specialist (frame opener) for an annual body check. What are the benefits of screening? Cancer screening is done to look for cancer in the very early stages, before it spreads and becomes harder to treat and before you would start to notice symptoms. Finding cancer early improves the chances of successful treatment. It ma (more content not included)... Normal [facility] Screenson 10-15-2022 Screens [id number] 1.00CD:127 Normal [facility] Urology Office/Clinic Noteon 10-15-2022 Urology Office/Clinic Note [...] MD, URL [address] [place] [id number]- Additional Instructions: 1 yr PSA Patient Education [...] Vitamin D3 (more content not included)... Normal [facility] Comment on above: Result Comment: Elec tronically Signed By: Carlos HOLLINS MD\.br\Date and Time Signed: 10/15/22 10:11 EDT\.br\Electronically Co-Signed By: Laurel Bradley\.br\Date and Time Co-Signed: 10/15/22 10:08 EDT Lab Reportson 10-13-2022 Lab Reports [id number] .[id number]:127 [address] [facility] CT CHEST WO CONon 10-11-2022 CT CHEST [...] LUCAS GOLDSTEIN Date: 2022-10-11 15:31 Normal [facility] CBC AUTO DIFFon 08-23-2022 BASO # 0.0 103/ul Normal 0.0-0.1 [facility] Comment on above: Performed By: #### C BC #### [facility] Laboratory [address] [place], [place] [address] Dr. Jesus White Basophils/100 WBC (Bld) 0.5 % Normal 0.2-2.0 [facility] Comment on above: Performed By: #### C BC #### [facility] Laboratory [address] [place], [place] [address] Dr. Jesus White EO # 0.2 103/ul Normal 0.0-0.7 [facility] Comment on above: Performed By: #### C BC #### [facility] Laboratory [address] [place] [address] Dr. Jesus White Eosinophils/100 WBC (Bld) 2.2 % Normal 0.9-7.0 [facility] Comment on above: Performed By: #### C BC #### [facility] Laboratory [address] [place] [address] Dr. Jesus White Erythrocyte distribution width (RBC) [Ratio] 13.3 % Normal 11.0-15.0 [facility] Comment on above: Performed By: #### C BC #### [facility] Laboratory [address] [place] [address] Dr. Jesus White Hematocrit (Bld) [Volume fraction] 43.0 % Normal 42.0-54.0 [facility] Comment on above: Performed By: #### C BC #### [facility] Laboratory [address] [place] [address] Dr. Jesus White Hemoglobin (Bld) [Mass/Vol] 14.4 g/dL Normal 14.0-18.0 [facility] Comment on above: Performed By: #### C BC #### [facility] Laboratory [address] [place] [address] Dr. Jesus White IG # 0.02 10e3/ul Normal 0.00-0.03 [facility] Comment on above: Performed By: #### C BC #### [facility] Laboratory [address] [place] [address] Dr. Jesus White IG % 0.2 % Normal 0.0-0.5 [facility] Comment on above: Performed By: #### C BC #### [facility] Laboratory [address] [place] [address] Dr. Jesus White LYMPH # 3.0 103/ul Normal 1.2-3.8 [facility] Comment on above: Performed By: #### C BC #### [facility] Laboratory [address] [place] [address] Dr. Jesus White Lymphocytes/100 WBC (Bld) 35.8 % Normal 20.5-60.0 [facility] Comment on above: Performed By: #### C BC #### [facility] Laboratory [address] [place] [address] Dr. Jesus White MANUAL DIFF REQ NO Normal [facility] Comment on above: Performed By: #### C BC #### [facility] Laboratory [address] [place] [address] Dr. Jesus White MCH (RBC) [Entitic mass] 30.6 pg Normal 25.9-34.0 [facility] Comment on above: Performed By: #### C BC #### [facility] Laboratory [address] [place] [address] Dr. Jesus White MCHC (RBC) [Mass/Vol] 33.5 g/dL Normal 29.9-35.2 [facility] Comment on above: Performed By: #### C BC #### [facility] Laboratory [address] [place] [address] Dr. Jesus White MCV (RBC) [Entitic vol] 91.5 fL Normal 80.0-94.0 [facility] Comment on above: Performed By: #### C BC #### [facility] Laboratory [address] [place] [address] Dr. Jesus White MONO # 0.8 103/ul Normal 0.3-0.8 [facility] Comment on above: Performed By: #### C BC #### [facility] [address] [place] [address] Dr. Jesus White Monocytes/100 WBC (Bld) 9.1 % Normal 1.7-12.0 [facility] Comment on above: Performed By: #### C BC #### [facility] Laboratory [address] [place] [address] Dr. Jesus White NEUT # 4.4 103/ul Normal 1.4-6.5 [facility] Comment on above: Performed By: #### C BC #### [facility] Laboratory [address] [place] [address] Dr. Jesus White Neutrophils/100 WBC (Bld) 52.2 % Normal 43.0-75.0 [facility] Comment on above: Performed By: #### C BC #### [facility] Laboratory [address] [place] [address] Dr. Jesus White Platelet mean volume (Bld) [Entitic vol] 9.8 fL Normal 9.5-13.5 [facility] Comment on above: Performed By: #### C BC #### [facility] Laboratory [address] [place] [address] Dr. Jesus White PLT 236 103/ul Normal 150-450 [facility] Comment on above: Performed By: #### C BC #### [facility] Laboratory [address] [place] [address] Dr. Jesus White RBC 4.70 106/ul Normal 4.70-6.10 [facility] Comment on above: Performed By: #### C BC #### [facility] Laboratory [address] [place] [address] Dr. Jesus White WBC 8.4 103/ul Normal 4.0-11.0 [facility] Comment on above: Performed By: #### C BC #### [facility] Laboratory [address] [place] [address] Dr. Jesus White LIPID PROFILEon 08-23-2022 CHOL-HDL RATIO NORM SEE BELOW Normal [facility] Comment on above: Result Comment: 3.3 - 4.4 LOW RISK 4.4 - 7.1 AVERAGE RISK 7.1 - 11.0 MODERATE RISK >11.0 HIGH RISK Performed By: #### C MP, LIPID #### [facility] Laboratory [address] [place] [address] Dr. Jesus White Cholesterol [Mass/Vol] 121 mg/dL Normal <=200 [facility] Comment on above: Performed By: #### C MP, LIPID #### [facility] Laboratory [address] [place] [address] Dr. Jesus White Cholesterol in HDL [Mass/Vol] 37 mg/dL Critically low 40-60 [facility] Comment on above: Performed By: #### C MP, LIPID #### [facility] Laboratory [address] [place] [address] Dr. Jesus White Cholesterol in LDL [Mass/Vol] 59.6 mg/dL Normal [facility] Comment on above: Performed By: #### C MP, LIPID #### [facility] Laboratory [address] [place] [address] [address] Jesus White Cholesterol.total/C holesterol in HDL [Mass ratio] 3.3 {ratio} Normal [facility] Comment on above: Performed By: #### C MP, LIPID #### [facility] Laboratory [address] [place] [address] [address] Jesus White HDL NORMAL > or = 60 mg/dl - LO W CARDIOVASCULAR RISK <40 mg/dl - HIGH CARDIOVASCULAR RISK Normal [facility] Comment on above: Performed By: #### C MP, LIPID #### [facility] [address] [place] [address] [address] Jesus White LDL CALC NORMAL SEE BELOW Normal [facility] Comment on above: Result Comment: <100 mg/dl OPTIMAL 100 - 129 mg/dl NEAR OR ABOVE OPTIMAL 130 - 159 mg/dl BORDERLINE HIGH 160 - 189 mg/dl HIGH >190 mg/dl VERY HIGH Performed By: #### C MP, LIPID #### [facility] [address] [place] [address] [address] Jesus White Triglyceride [Mass/Vol] 122 mg/dL Normal <=150 [facility] Comment on above: Performed By: #### C MP, LIPID #### [facility] [address] [place] [address] Dr. Jesus White VLDL CALC 24.4 mg/dL Normal [facility] Comment on above: Performed By: #### C MP, LIPID #### [facility] [address] [place] [address] [address] Jesus White PROF 14(COMP METB)on 023 Albumin [Mass/Vol] 3.8 g/dL Normal 3.4-5.0 [facility] Comment on above: Performed By: #### C MP, LIPID #### [facility] [address] [place] [address] Dr. Jesus White Albumin/Globulin [Mass ratio] 1.1 {ratio} Normal [facility] Comment on above: Performed By: #### C MP, LIPID #### [facility] [address] [place] [address] Dr. Jesus White ALP [Catalytic activity/Vol] 46 U/L Normal 46-116 [facility] Comment on above: Performed By: #### C MP, LIPID #### [facility] [address] [place] [address] Dr. Jesus White ALT [Catalytic activity/Vol] 37 U/L Normal 16-63 [facility] Comment on above: Performed By: #### C MP, LIPID #### [facility] [address] [place] [address] [address] Jesus White Anion gap [Moles/Vol] 11.3 mmol/L Normal [facility] Comment on above: Performed By: #### C MP, LIPID #### [facility] [address] [place] [address] Dr. Jesus White AST [Catalytic activity/Vol] 28 U/L Normal 15-37 [facility] Comment on above: Performed By: #### C MP, LIPID #### [facility] [address] [place] [address] Dr. Jesus White Bilirubin [Mass/Vol] 0.5 mg/dL Normal 0.2-1.0 [facility] Comment on above: Performed By: #### C MP, LIPID #### [facility] [address] [place] [address] Dr. Jesus White Calcium [Mass/Vol] 9.5 mg/dL Normal 8.5-10.1 [facility] Comment on above: Performed By: #### C MP, LIPID #### [facility] [address] [place] [address] Dr. Jesus White Chloride [Moles/Vol] 104 mmol/L Normal 98-107 [facility] Comment on above: Performed By: #### C MP, LIPID #### [facility] [address] [place] [address] [address] Jesus White CO2 [Moles/Vol] 28.9 mmol/L Normal 21.0-32.0 [facility] Comment on above: Performed By: #### C MP, LIPID #### [facility] [address] [place] [address] [address] Jesus White Creatinine [Mass/Vol] 0.99 mg/dL Normal 0.70-1.30 [facility] Comment on above: Performed By: #### C MP, LIPID #### [facility] [address] [place] [address] [address] Jesus White EGFR-AF [place] >60 Normal >=60 [facility] Comment on above: Performed By: #### C MP, LIPID #### [facility] [address] [place] [address] [address] Jesus White EGFR-NON AF [place] >60 Normal >=60 [facility] Comment on above: Performed By: #### C MP, LIPID #### [facility] [address] [place] [address] [address] Jesus White Globulin (S) [Mass/Vol] 3.6 g/dL Normal [facility] Comment on above: Performed By: #### C MP, LIPID #### [facility] [address] [place] [address] Dr. Jesus White Glucose [Mass/Vol] 92 mg/dL Normal 74-106 [facility] Comment on above: Performed By: #### C MP, LIPID #### [facility] [address] [place] [address] [address] Jesus White Potassium [Moles/Vol] 4.2 mmol/L Normal 3.5-5.1 [facility] Comment on above: Performed By: #### C MP, LIPID #### [facility] [address] [place] [address] [address] Jesus White Protein [Mass/Vol] 7.4 g/dL Normal 6.4-8.2 [facility] Comment on above: Performed By: #### C MP, LIPID #### [facility] Laboratory [address] [place] [address] [address] Jesus White Sodium [Moles/Vol] 140 mmol/L Normal 136-145 [facility] Comment on above: Performed By: #### C MP, LIPID #### [facility] Laboratory [address] [place] [address] [address] Jesus White Urea nitrogen [Mass/Vol] 12.0 mg/dL Normal 7.0-18.0 [facility] Comment on above: Performed By: #### C MP, LIPID #### [facility] Laboratory [address] [place], [place] [address] Dr. Jesus White Urea nitrogen/Creatinine [Mass ratio] 12.1 mg/mg Normal [facility] Comment on above: Performed By: #### C MP, LIPID #### [facility] [address] [place], [place] [address] LUNG CANCER SCREENINGon [...] by: LUCAS GOLDSTEIN Date: 2022-07-05 12:53 Normal [facility] BLOOD GASES BTYon 04-08-2022 02 MODE ROOM AIR Normal [facility] Comment on above: Performed By: #### A BG ####[facility] [address] [place] [address]Dr. Jesus White ALLENS TEST Positive Normal [facility] Comment on above: Performed By: #### A BG ####[facility] [address] [place] [address]Dr. Jesus White Base excess Calc (Bld) [Moles/Vol] -0.4000 mmol/L Normal -2.0-2.0 [facility] Comment on above: Performed By: #### A BG ####[facility] [address] [place], [place] [address]Dr. Jesus White BIPAP PRESSURE Normal [facility] Comment on above: Performed By: #### A BG ####[facility] [address] [place], [place] [address]Dr. Jesus White CPAP [facility] Comment on above: Performed By: #### A BG ####[facility] [address] [place], [place] [address]Dr. Jesus White FIO2 Normal [facility] Comment on above: Performed By: #### A BG ####[facility] [address] [place], [place] [address]Dr. Jesus White HCO3 (Bld) [Moles/Vol] 24.7 mmol/L Normal 22.0-26.0 [facility] Comment on above: Performed By: #### A BG ####[facility] [address] [place], [place] [address]Dr. Jesus White LPM Normal [facility] Comment on above: Performed By: #### A BG ####[facility] [address] [place], [place] [address]Dr. Jesus White MINUTE VOLUME Normal [facility] Comment on above: Performed By: #### A BG ####[facility] [address] [place], [place] [address]Dr. Jesus White Oxygen (Bld) [Partial pressure] 75.3 mm[Hg] Critically low 80.0-100.0 [facility] Comment on above: Performed By: #### A BG ####[facility] [address] [place] [address]Dr. Jesus White Oxygen saturation in Blood 94.7 % Critically low 95.0-100.0 [facility] Comment on above: Performed By: #### A BG ####[facility] [address] [place] [address]Dr. Jesus White PCO2 42.0 mmHg Normal 35.0-45.0 [facility] Comment on above: Performed By: #### A BG ####[facility] [address] [place] [address]Dr. Jesus White PEEP [facility] Comment on above: Performed By: #### A BG ####[facility] [address] [place] [address]Dr. Jesus White pH (Bld) 7.379 [pH] Normal 7.350-7.450 [facility] Comment on above: Performed By: #### A BG ####[facility] [address] [place], [place] [address]Dr. Jesus White PIP [facility] Comment on above: Performed By: #### A BG ####[facility] [address] [place], [place] [address]Dr. Jesus White PS [facility] Comment on above: Performed By: #### A BG ####[facility] [address] [place], [place] [address]Dr. Jesus White PUNCTURE SITE LR [facility] Comment on above: Performed By: #### A BG ####[facility] [address] [place], [place] [address]Dr. Jesus White RATE [facility] Comment on above: Performed By: #### A BG ####[facility] [address] [place], [place] [address]Dr. Jesus White VENT MODE [facility] Comment on above: Performed By: #### A BG ####[facility] [address] [place], [place] [address]Dr. Jesus White [place] [facility] Comment on above: Performed By: #### A BG ####[facility] [address] [place], [place] [address]Dr. Jesus White CBC AUTO DIFFon 04-08-2022 BASO # 0.1 103/ul Normal 0.0-0.1 [facility] Comment on above: Performed By: #### C BC #### [facility] Laboratory [address] [place] [id number] [address] Jesus White Basophils/100 WBC (Bld) 0.6 % Normal 0.2-2.0 [facility] Comment on above: Performed By: #### C BC #### [facility] Laboratory [address] [place] [address] [address] Jesus White EO # 0.2 103/ul Normal 0.0-0.7 [facility] Comment on above: Performed By: #### C BC #### [facility] Laboratory [address] [place] [address] [address] Jesus White Eosinophils/100 WBC (Bld) 1.5 % Normal 0.9-7.0 [facility] Comment on above: Performed By: #### C BC #### [facility] Laboratory [address] [place] [address] [address] Jesus White Erythrocyte distribution width (RBC) [Ratio] 13.2 % Normal 11.0-15.0 [facility] Comment on above: Performed By: #### C BC #### [facility] Laboratory [address] [place] [address] [address] Jesus White Hematocrit (Bld) [Volume fraction] 41.7 % Critically low 42.0-54.0 [facility] Comment on above: Performed By: #### C BC #### [facility] Laboratory [address] [place] [id number] [address] Jesus White Hemoglobin (Bld) [Mass/Vol] 14.3 g/dL Normal 14.0-18.0 [facility] Comment on above: Performed By: #### C BC #### [facility] [address] [place] [address] [address] Jesus White IG # 0.03 10e3/ul Normal 0.00-0.03 [facility] Comment on above: Performed By: #### C BC #### [facility] Laboratory [address] [place] [address] Dr. Jesus White IG % 0.3 % Normal 0.0-0.5 [facility] Comment on above: Performed By: #### C BC #### [facility] [address] [place] [address] Dr. Jesus White LYMPH # 5.6 103/ul Critically high 1.2-3.8 [facility] Comment on above: Performed By: #### C BC #### [facility] [address] [place] [address] Dr. Jesus White Lymphocytes/100 WBC (Bld) 57.0 % Normal 20.5-60.0 [facility] Comment on above: Performed By: #### C BC #### [facility] [address] [place] [address] Dr. Jesus White MANUAL DIFF REQ NO Normal [facility] Comment on above: Performed By: #### C BC #### [facility] [address] [place] [address] Dr. Jesus White MCH (RBC) [Entitic mass] 31.4 pg Normal 25.9-34.0 [facility] Comment on above: Performed By: #### C BC #### [facility] [address] [place] [address] Dr. Jesus White MCHC (RBC) [Mass/Vol] 34.3 g/dL Normal 29.9-35.2 [facility] Comment on above: Performed By: #### C BC #### [facility] [address] [place] [address] Dr. Jesus White MCV (RBC) [Entitic vol] 91.6 fL Normal 80.0-94.0 [facility] [facility] Comment on above: Performed By: #### C BC #### [facility] [address] [place] [address] Dr. Jesus White MONO # 0.5 103/ul Normal 0.3-0.8 [facility] Comment on above: Performed By: #### C BC #### [facility] [address] [address] [address] Jesus White Monocytes/100 WBC (Bld) 5.1 % Normal 1.7-12.0 [facility] Comment on above: Performed By: #### C BC #### [facility] [address] [address] [address] Jesus Whtie NEUT # 3.5 103/ul Normal 1.4-6.5 [facility] Comment on above: Performed By: #### C BC #### [facility] [address] [address] [address] Jesus White Neutrophils/100 WBC (Bld) 35.5 % Critically low 43.0-75.0 [facility] Comment on above: Performed By: #### C BC #### [facility] [address] [place] [address] Dr. Jesus White Platelet mean volume (Bld) [Entitic vol] 9.5 fL Normal 9.5-13.5 [facility] Comment on above: Performed By: #### C BC #### [facility] [address] [place] [address] Dr. Jesus White PLT 222 103/ul Normal 150-450 [facility] Comment on above: Performed By: #### C BC #### [facility] [address] [place] [address] Dr. Jesus White RBC 4.55 106/ul Critically low 4.70-6.10 [facility] Comment on above: Performed By: #### C BC #### [facility] [address] [place] [address] Dr. Jesus White WBC 9.8 103/ul Normal 4.0-11.0 [facility] Comment on above: Performed By: #### C BC #### [facility] [address] [place] [address] STROKE HEAD WOon [...] ERNA LEON Date: 2022-04-08 18:50 Normal [facility] Covid-19 PCR (CVDTBH)on SARS-CoV-2 (COVID-19) RNA PAUL+probe Ql (Unsp spec) Not detected Normal NOT DETECTED [facility] Comment on above: Result Comment: When diagnostic [...] for this test is supported by the [place] of Health and Human Service's declaration that [...] used). Performed By: #### C VDTBH #### [facility] [address] [place], [place] [address] Dr. Jesus White ETHANOL (BLD ALC)on 04-08-20 22 ALC NOTE NOTE: 80 mg/dl is th e legal limit for a blood alcohol level Normal [facility] Comment on above: Performed By: #### E TH ####[facility] [address] [place], [place] [address]OcDr. Jesus White Ethanol [Mass/Vol] 344 mg/dL Normal [facility] Comment on above: Performed By: #### E TH ####[facility] [address] [address]Dr. Jesus White PROF 14(COMP METB)on 022 Albumin [Mass/Vol] 3.5 g/dL Normal 3.4-5.0 [facility] Comment on above: Performed By: #### C JORGE HSTROPN #### [facility] [address] [address] [address] Jesus White Albumin/Globulin [Mass ratio] 1.0 {ratio} Normal [facility] Comment on above: Performed By: #### C JORGE HSTROPN #### [facility] [address] [address] [address] Jesus White ALP [Catalytic activity/Vol] 41 U/L Critically low 46-116 [facility] Comment on above: Performed By: #### C JORGE HSTROPN #### [facility] [address] [address] [address] Jesus White ALT [Catalytic activity/Vol] 28 U/L Normal 16-63 [facility] Comment on above: Performed By: #### C JORGE HSTROPN #### [facility] [address] [address] [address] Jesus White Anion gap [Moles/Vol] 12.1 mmol/L Normal [facility] Comment on above: Performed By: #### C JORGE HSTROPN #### [facility] [address] [address] [address] Jesus White AST [Catalytic activity/Vol] 19 U/L Normal 15-37 [facility] Comment on above: Performed By: #### C JORGE HSTROPN #### [facility] [address] [address] [address] Jesus White Bilirubin [Mass/Vol] 0.3 mg/dL Normal 0.2-1.0 [facility] Comment on above: Performed By: #### C JORGE HSTROPN #### [facility] [address] [address] [address] Jesus White Calcium [Mass/Vol] 8.8 mg/dL Normal 8.5-10.1 [facility] Comment on above: Performed By: #### C MP, HSTROPN #### [facility] [address] [place] [address] Dr. Jesus White Chloride [Moles/Vol] 105 mmol/L Normal 98-107 [facility] Comment on above: Performed By: #### C MP, HSTROPN #### [facility] [address] [place] [address] Dr. Jesus White CO2 [Moles/Vol] 24.8 mmol/L Normal 21.0-32.0 [facility] Comment on above: Performed By: #### C MP, HSTROPN #### [facility] [address] [place] [address] Dr. Jesus White Creatinine [Mass/Vol] 1.53 mg/dL Critically high 0.70-1.30 [facility] Comment on above: Performed By: #### C MP, HSTROPN #### [facility] [address] [place] [address] Dr. Jesus White EGFR-AF [place] 55 mL/min/1.73m2 Critically low >=60 [facility] Comment on above: Result Comment: Prev iously reported as: (blank) On 04/08/2022 19:15 By MH Performed By: #### C MP, HSTROPN #### [facility] [address] [place] [address] Dr. Jesus White EGFR-NON AF [place] 46 mL/min/1.73m2 Critically low >=60 [facility] Comment on above: Result Comment: Prev iously reported as: (blank) On 04/08/2022 19:15 By MH Performed By: #### C MP, HSTROPN #### [facility] [address] [place] [address] Dr. Jesus White Globulin (S) [Mass/Vol] 3.5 g/dL Normal [facility] Comment on above: Performed By: #### C MP, HSTROPN #### [facility] [address] [address] [address] Jesus White Glucose [Mass/Vol] 116 mg/dL Critically high 74-106 [facility] Comment on above: Performed By: #### C MP, HSTROPN #### [facility] [address] [address] [address] Jesus White Potassium [Moles/Vol] 3.9 mmol/L Normal 3.5-5.1 [facility] Comment on above: Performed By: #### C MP, HSTROPN #### [facility] [address] [address] [address] Jesus White Protein [Mass/Vol] 7.0 g/dL Normal 6.4-8.2 [facility] Comment on above: Performed By: #### C MP, HSTROPN #### [facility] [address] [address] [address] Jesus White Sodium [Moles/Vol] 138 mmol/L Normal 136-145 [facility] Comment on above: Performed By: #### C MP, HSTROPN #### [facility] [address] [address] [address] Jesus White Urea nitrogen [Mass/Vol] 17.0 mg/dL Normal 7.0-18.0 [facility] Comment on above: Performed By: #### C MP, HSTROPN #### [facility] [address] [address] [address] Jesus White Urea nitrogen/Creatinine [Mass ratio] 11.1 mg/mg Normal [facility] Comment on above: Performed By: #### C MP, HSTROPN #### [facility] [address] [address] [address] Jesus White PROTIMEon 04-08-2022 INR Coag (PPP) [Relative time] 1.00 {INR} Normal [facility] Comment on above: Performed By: #### P TT, PT ####[facility] [address] [address]Dr. Jesus White INR GUIDELINES SEE BELOW Normal [facility] Comment on above: Result Comment: JULIET RED INR: 2.0 - 3.0 CONDITIONS NOT LISTED BELOW 2.5 - 3.5 FOR PROSTHETIC HEART VALVE REPLACEMENT 2.5 - 3.5 RECURRENT THROMBOSIS Performed By: #### P TT, PT ####[facility] [address] [id number]. Jesus White PT Coag (PPP) [Time] 10.8 s Normal 9.0-11.6 [facility] Comment on above: Performed By: #### P TT, PT ####[facility] [address] [address]DrJordin White PTTon 04-08-2022 aPTT Coag (Bld) [Time] 24.8 s Normal 22.3-36.2 [facility] Comment on above: Performed By: #### P TT, PT ####[facility] [address] [address]Dr. Jesus White TROPONIN, HIGH SENSITIVITYon 04-08-2022 HSTROP 16.7 pg/mL Normal 4.0-76.1 [facility] Comment on above: Result Comment: CUT- OFF POINTS HAVE BEEN ESTABLISHED BASED ON THE FOURTH UNIVERSAL DEFINITIONS OF MYOCARDIAL INFARCTION. THE UPPER REFERENCE LIMIT (URL) OF TROPONIN, DEFINED THE 99TH PERCENTILE OF cTnI DISTRIBUTION IN A REFERENCE POPULATION, HAS BEEN CONFIRMED THE DECISION THRESHOLD FOR [place] DIAGNOSIS. Performed By: #### C MP, HSTROPN #### [facility] [address] [place] [address] Dr. Jesus White PROF CHEM 8 (BAS METB)on Anion gap [Moles/Vol] 13.3 mmol/L Normal [facility] Comment on above: Performed By: #### B MP #### [facility] [address] [place] [address] Dr. Jesus White Calcium [Mass/Vol] 9.7 mg/dL Normal 8.5-10.1 [facility] Comment on above: Performed By: #### B MP #### [facility] [address] [place] [address] Dr. Jesus White Chloride [Moles/Vol] 103 mmol/L Normal 98-107 [facility] Comment on above: Performed By: #### B MP #### [facility] [address] [place] [address] Dr. Jesus White CO2 [Moles/Vol] 28.4 mmol/L Normal 21.0-32.0 [facility] Comment on above: Performed By: #### B MP #### [facility] [address] [address] [address] Jesus White Creatinine [Mass/Vol] 1.21 mg/dL Normal 0.70-1.30 [facility] Comment on above: Performed By: #### B MP #### [facility] [address] [place] [address] Dr. Jesus White EGFR-AF [place] >60 Normal >=60 [facility] Comment on above: Performed By: #### B MP #### [facility] [address] [place] [address] Dr. Jesus White EGFR-NON AF [place] 60 mL/min/1.73m2 Normal >=60 [facility] Comment on above: Performed By: #### B MP #### [facility] [address] [place] [address] Dr. Jesus White Glucose [Mass/Vol] 95 mg/dL Normal 74-106 [facility] Comment on above: Performed By: #### B MP #### [facility] [address] [place] [address] Dr. Jesus White Potassium [Moles/Vol] 3.7 mmol/L Normal 3.5-5.1 [facility] Comment on above: Performed By: #### B MP #### [facility] [address] [address] [address] Jesus White Sodium [Moles/Vol] 141 mmol/L Normal 136-145 [facility] Comment on above: Performed By: #### B MP #### [facility] [address] [place] [address] Dr. Jesus White Urea nitrogen [Mass/Vol] 12.0 mg/dL Normal 7.0-18.0 [facility] Comment on above: Performed By: #### B MP #### [facility] [address] [address] [address] Jesus White Urea nitrogen/Creatinine [Mass ratio] 9.9 mg/mg Normal [facility] Comment on above: Performed By: #### B MP #### [facility] [address] [address] [address] Jesus White ER URINE PROFILEon 2 Bilirubin Ql (U) Negative Normal NEGATIVE [facility] Comment on above: Performed By: #### Júnior BARNES UMICRO ####[facility] [address] [address]Dr. Jesus White Clarity (U) CLEAR Normal CLEAR [facility] Comment on above: Performed By: #### Júnior BARNES UMICRO ####[facility] [address] [address]Dr. Jesus White Color (U) LT. YELLOW Normal YELLOW [facility] Comment on above: Performed By: #### Júnior BARNES UMICRO ####[facility] [address] [address]Dr. Jesus MONTEJO A micrscopic examination will be performed if indicated. Normal [facility] Comment on above: Performed By: #### Júnior BARNES UMICRO ####[facility] [address] [address]Dr. Jesus White Glucose Ql (U) Negative Normal NEGATIVE The [facility] Comment on above: Performed By: #### Júnior BARNES UMICRO ####[facility] [address] [address]Dr. Jesus White Hemoglobin Ql (U) Negative Normal NEGATIVE [facility] Comment on above: Performed By: #### Júnior BARNES UMICRO ####[facility] [address] [address]Dr. Jesus White Ketones Ql (U) Negative Normal NEGATIVE The [facility] Comment on above: Performed By: #### Júnior BARNES UMICRO ####[facility] [address] [address]Dr. Jesus White LEUKOCYTES Negative Normal NEGATIVE [facility] Comment on above: Performed By: #### CALEB GOULD ####[facility] [address] [address]Dr. Carolliseth White Nitrite Ql (U) Negative Normal NEGATIVE [facility] Comment on above: Performed By: #### CALEB GOULD ####[facility] [address] [address]Dr. Jesus White pH (U) 6.0 [pH] Normal 5-9 [facility] Comment on above: Performed By: #### CALEB GOULD ####[facility] [address] [place], [place] [address]Dr. Jesus White SPEC GRAVITY <=1.005 Abnormal 1.005-<=1.025 [facility] Comment on above: Performed By: #### CALEB GOULD ####[facility] [address] [place], [place] [address]Dr. Jesus White UA PROTEIN Negative Normal NEGATIVE/ TRACE [facility] Comment on above: Performed By: #### CALEB GOULD ####[facility] [address] [place], [place] [address]Dr. Jesus White UR MICRO IND INDICATED Normal [facility] Comment on above: Performed By: #### CALEB GOULD ####[facility] [address] [place], [place] [address]Dr. Jesus White Urobilinogen Qn (U) 0.2 {Dash'U}/dL Normal 0.2 - 1. 0 [facility] Comment on above: Performed By: #### CALEB GOULD ####[facility] [address] [place], [place] [address]Dr. Jesus White URINE MICROSCOPIC ONLYon BACTERIA NONE SEEN Normal NONE SEEN [facility] Comment on above: Performed By: #### CALEB GOULD ####[facility] [address] [address]Dr. Jesus White Bacteria identified Cx Nom (U) NOT INDICATED Normal [facility] Comment on above: Performed By: #### CALEB GOULD ####[facility] [address] [address]Dr. Jesus White CAST NONE SEEN Normal NONE SEEN [facility] Comment on above: Performed By: #### VALERIO GOULDRO ####[facility] [address] [address]Dr. Jesus White Crystals LM Nom (Urine sed) NONE SEEN Normal NONE SEEN [facility] Comment on above: Performed By: #### CALEB GOULD ####[facility] [address] [address]Dr. Jesus White Epithelial cells LM Ql (Urine sed) RARE Normal NONE SEEN /RARE [facility] Comment on above: Performed By: #### VALERIO GOULDRO ####[facility] [address] [address]Dr. Jesus White MUCOUS NONE SEEN Normal NONE SEEN [facility] Comment on above: Performed By: #### CALEB GOULD ####[facility] [address] [place], [place] [address]Dr. Jesus White RBC NONE SEEN Abnormal 0-2 [facility] Comment on above: Performed By: #### CALEB GOULD ####[facility] [address] [address]Dr. Jesus White WBC NONE SEEN Normal NONE SEEN [facility] Comment on above: Performed By: #### VALERIO GOULDRO ####[facility] [address] [place], [place] [address]Dr. Jesus White US CRYSTAL DOP LEG LTon 01-02-20 US CRYSTAL DOP LEG LT Ultrasound venous duplex scan [...] by: VARSHA BARNARD Date: 2022-01-01 08:49 Normal [facility] Vital Signs Date Time Vital Sign Value Performing Clinician Facility 03-17-2023 15:20-0400 Body height 177.8 cm Jose Julien Other [facility] Other 03-17-2023 15:20-0400 Body mass index (BMI) [Ratio] 31.96 kg/m2 Jose Julien Other [facility] Other 03-17-2023 15:20-0400 Body temperature 96.9 [degF] Jose Julien Other [facility] Other 03-17-2023 15:20-0400 Body weight 101.06 kg Jose Julien Other [facility] Other 03-17-2023 15:20-0400 Diastolic blood pressure 73 mm[Hg] Jose Julien Other [facility] Other 03-17-2023 15:20-0400 Respiratory rate 18 /min Jose Julien Other [facility] Other 03-17-2023 15:20-0400 SaO2% (BldA) [Mass fraction] 98 % Jose Julien Other [facility] Other 03-17-2023 15:20-0400 Systolic blood pressure 134 mm[Hg] Jose Julien Other [facility] Other 09-30-2022 11:20-0400 Body height 177.8 cm Jose Julien Other [facility] Other 09-30-2022 11:20-0400 Body mass index (BMI) [Ratio] 33.6 kg/m2 Jose Julien Other [facility] Other 09-30-2022 11:20-0400 Body temperature 96.3 [degF] Jose Julien Other [facility] Other 09-30-2022 11:20-0400 Body weight 106.23 kg Jose Julien Other [facility] Other 09-30-2022 11:20-0400 Diastolic blood pressure 64 mm[Hg] Jose Julien Other [facility] Other 09-30-2022 11:20-0400 Respiratory rate 18 /min Jose Julien Other [facility] Other 09-30-2022 11:20-0400 SaO2% (BldA) [Mass fraction] 99 % Jose Julien Other [facility] Other 09-30-2022 11:20-0400 Systolic blood pressure 138 mm[Hg] Jose Julien Other [facility] Other 03-22-2022 14:00-0400 Body height 177.8 cm Jose Julien Other [facility] Other 03-22-2022 14:00-0400 Body mass index (BMI) [Ratio] 33.14 kg/m2 Jose Julien Other [facility] Other 03-22-2022 14:00-0400 Body temperature 95.9 [degF] Jose Julien Other [facility] Other 03-22-2022 14:00-0400 Body weight 104.78 kg Jose Julien Other [facility] Other 03-22-2022 14:00-0400 Diastolic blood pressure 70 mm[Hg] Jose Julien Other [facility] Other 03-22-2022 14:00-0400 Respiratory rate 18 /min Jose Julien Other [facility] Other 03-22-2022 14:00-0400 SaO2% (BldA) [Mass fraction] 97 % Jose Julien Other [facility] Other 03-22-2022 14:00-0400 Systolic blood pressure 119 mm[Hg] Jose Julien Other [facility] Other 06-18-2021 11:40-0500 Body height 177.8 cm Jose Julien Other [facility] Other 06-18-2021 11:40-0500 Body mass index (BMI) [Ratio] 37.22 kg/m2 Jose Julien Other [facility] Other 06-18-2021 11:40-0500 Body temperature 95.9 [degF] Jose Julien Other [facility] Other 06-18-2021 11:40-0500 Body weight 117.66 kg Jose Julien Other [facility] Other 06-18-2021 11:40-0500 Diastolic blood pressure 70 mm[Hg] Jose Julien Other [facility] Other 06-18-2021 11:40-0500 Respiratory rate 18 /min Jose Julien Other [facility] Other 06-18-2021 11:40-0500 SaO2% (BldA) [Mass fraction] 97 % Jose Julien Other [facility] Other 06-18-2021 11:40-0500 Systolic blood pressure 124 mm[Hg] Jose Julien Other [facility] Other Encounters Encounter Date Encounter Type Care Provider Facility Start: 10-17-2023 ambulatory Carlos HOLLINS Facility :[facility] Start: 05-10-2023 End: 05-10-2023 ambulatory SHAIKH ALDAIR Not Available Start: 03-17-2023 End: 03-17-2023 ambulatory Jose Julien Other [facility] Other Start: 03-17-2023 Office outpatient vi sit 15 minutes Jose Julien [facility] Start: 10-15-2022 End: 10-16-2022 ambulatory Carlos HOLLINS Facility:[facility] Start: 10-11-2022 End: 10-12-[address] CARLOS HOLLINS Facility: Start: 09-30-2022 End: 09-30-2022 ambulatory Jose Julien Other [facility] Other Start: 09-30-2022 Office outpatient vi sit [...] 03-22-2022 End: 03-22-2022 ambulatory Jose Julien Other [facility] Other Start: 03-22-2022 Office outpatient vi sit 25 minutes Jose Julien [facility] Start: 02-16-2022 End: 02-17-2022 ambulatory Nancy ALDAIR Facility:[facility] Start: 01-01-2022 End: 01-01-[address] LUNA DUFFY . Facility:[facility] Start: 06-21-2021 End: 06-21-2021 ambulatory Jose Julien Other [facility] Other Start: 06-21-2021 Telephone encounter Jose Julien [facility] Start: 06-18-2021 End: 06-18-2021 ambulatory Jose Julien Other [facility] Other Start: 06-18-2021 Office outpatient vi sit 25 minutes Jose Julien [facility] Procedures Date Procedure Procedure Detail Performing Clinician Start: 10-11-[address] WINIFRED HOLLINS Comment on above: Performed By: #### P SAD ####[address] [place] [address]DrJordin White Payers Date Payer Category Payer Medicare [id number] 2. [id number] 1955 Unknown [id number] 2.16.8 [id number] 1955 Unknown [id number] 2.16.8 [id number] 1955 Unknown [id number] 2.16.8 [id number] 1955 Unknown [id number] 2.16.84 [id number] 1955 Unknown [id number] 2.16.84 [id number] 1955 Unknown [id number] 2.16.84 [id number] 1955 Unknown [id number] 2.16.84 [id number] 1955 Unknown [id number] 2.16.84 [id number] 1955 Unknown [id number] 2.16.84 [id number] 1955 Unknown [id number] 2.16.84 [id number] 1955 Unknown [id number] 2.16.84 [id number] 1955 Unknown [id number] 2.16.840 .[id number] Social History Date Type Detail Facility Unknown if ever smoked [facility] Other Sex Assigned At Sex Assigned At Bir th [facility] Other Evaluation note 03-17-2023 Note Date & [...] Monitor LFTs and lipid profile with PCP. [facility] Other Evaluation note 09-30-2022 Note Date & [...] have gout. I have prescribed oral Allopurinol [facility] Other Evaluation note 03-22-2022 Note Date & [...] have gout. I have prescribed oral Allopurinol [facility] Other Clinical Note 01-01-2022 Note Date & [...] by: LUCAS GOLDSTEIN Date: 2022-01-01 08:35 [facility] Evaluation note 06-18-2021 Note Date & [...] Q60.0) He has a solitary right kidney. [facility] Other Evaluation note Note Date & Type Note Facility Evaluation note No Information [facility] Other History general Narrative - Reported Note Date & Type Note Facility History general Narrative - Reported [facility] Other History general Narrative - Reported Note [...] History BLOOD PRESSURE W 60/40, DEHYDRATION 04/2021 [facility] Other History general Narrative - Reported Note [...] History BLOOD PRESSURE W 60/40, DEHYDRATION 04/2021 [facility] Other History general Narrative - Reported Note [...] History BLOOD PRESSURE W 60/40, DEHYDRATION 04/2021 [facility] Other Summary Purpose Family History No Family [...] section and content) DATE CREATED AUTHOR 10/16/2022 [facility] DATE CREATED AUTHOR AUTHOR'S ORGANIZ ATION 11/12/2022 [facility] DATE CREATED AUTHOR AUTHOR'S ORGANIZ ATION 05/12/2023 [facility] EPIC FOR RECORDS PERTAINING TO PATIENTS [...] BE BASED ON THE PRIMARY CLINICAL RECORDS. [facility]. provides no warranty or guarantee of the accuracy or completeness of information in this document.
[2023-08-13] MEDS: MORPHINE SULFATE 2 MG/ML SYRINGE IV ×2 (04:55→09:33)
[2023-08-13] MEDS: PANTOPRAZOLE SODIUM 40 MG VIAL IV ×2 (05:05→08:14)
[2023-08-13 05:10] LABS: Basophils Absolute Auto 0.1 10^3/uL (0.0-0.1); Basophils Percent Auto 0.5 % (0.2-2.0); Eosinophils Absolute Auto 0.1 10^3/uL (0.0-0.7); Eosinophils Percent Auto 1.4 % (0.9-7.0); Hemoglobin 13.2 g/dL (14.0-18.0); Immature Granulocytes Abs Auto 0.02 10^3/uL (0.00-0.03); Immature Granulocytes Pct Auto 0.2 % (0.0-0.5); Lymphocytes Absolute Auto 3.4 10^3/uL (1.2-3.8); Lymphocytes Percent Auto 34.9 % (20.5-60.0); Mean Corpuscular HGB Conc 33.8 g/dL (29.9-35.2); Mean Corpuscular Hemoglobin 31.5 pg (25.9-34.0); Mean Corpuscular Volume 93.1 fL (80.0-94.0); Mean Platelet Volume 11.1 fL (9.5-13.5); Monocytes Absolute Auto 0.8 10^3/uL (0.3-0.8); Monocytes Percent Auto 8.7 % (1.7-12.0); Neutrophils Absolute Auto 5.3 10^3/uL (1.4-6.5); Neutrophils Percent Auto 54.3 % (43.0-75.0); Platelet Count 184 10^3/uL (150-450); Red Blood Count 4.19 10^6/uL (4.70-6.10); Red Cell Distribution Width 13.2 % (11.0-15.0); White Blood Count 9.7 10^3/uL (4.0-11.0)
[2023-08-13 05:17] LABS: INR 1.04
[2023-08-13 05:25] LABS: Alanine Aminotransferase 22 U/L (16-63); Albumin Globulin Ratio 0.9; Albumin Level 3.2 g/dL (3.4-5.0); Alkaline Phosphatase 46 U/L (46-116); Anion Gap 12.1; Aspartate Amino Transferase 14 U/L (15-37); BUN Creatinine Ratio 13.2; Bilirubin Total 0.8 mg/dL (0.2-1.0); Calcium 8.6 mg/dL (8.5-10.1); Carbon Dioxide 25.6 mmol/L (21.0-32.0); Chloride 108 mmol/L (98-107); Estimated GFR (African America >60 (>=60); Estimated GFR (Non-African Ame >60 (>=60); Globulin 3.5 g/dL; Glucose 98 mg/dL (74-106); Potassium 3.7 mmol/L (3.5-5.1); Sodium 142 mmol/L (136-145); Total Protein 6.7 g/dL (6.4-8.2)
[2023-08-13] MEDS: 0.9 % SODIUM CHLORIDE 1,000 ML 100 ML IV (06:56)
[2023-08-13] MEDS: VITS A,C,E/LUTEIN/MINERALS 1 TABLET 1 TAB PO (08:14)
[2023-08-13] MEDS: TAMSULOSIN HCL 0.4 MG CAPSULE 0.400000000000000022 MG PO (08:14)
[2023-08-13] MEDS: LOSARTAN POTASSIUM 50 MG TABLET PO (08:14)
[2023-08-13] MEDS: FUROSEMIDE 20 MG TABLET PO (08:14)
[2023-08-13] MEDS: METOPROLOL TARTRATE 25 MG TABLET PO (08:14)
[2023-08-13] MEDS: ATORVASTATIN CALCIUM 40 MG TABLET PO (08:14)
[2023-08-13 10:22] LABS: Hematocrit 38.8 % (42.0-54.0)
[2023-08-13] MEDS: ALBUTEROL SULFATE 2.5 MG/3 ML VIAL NEB IH (10:35)
[2023-08-13] MEDS: BUDESONIDE 0.5 MG/2 ML AMPULE NEB IH (10:35)
[2023-08-13 11:28] LABS: Glucometer 118 mg/dL (74-106)
--- NOTE | 2023-08-13 11:54 | P.HP_ITS ---
HPI H&P: HPI History of Present Illness Chief complaint: Vomiting Blood GI BLEED Narrative: HPI and Hospital Course: 68 y o m reports nausea, poor PO intake and explosive black diarrhea for past 5 days. He had 2-3 episodes per day. He then had 1-2 episodes of vomiting with streaks of blood noted by him. He denies abdominal pain, but reports feeling weak, tired and has mild nausea. He denies drinking alcohol for past 2 months. Patient admitted for overnight for possible hematemesis. He was made NPO overnight with NGT placement for unclear reason. NGT was removed earlier today and patient was started on PO diet. He has kept his food inside with no vomiting. He has had no diarrhea overnight. His biggest complaints is his back pain. Otherwise, he is more or less at his baseline and feels better as compared to when he arrived last night. Hb is stable. Stable for d/c on PPI. Will repeat H&H as outpatient in one week Opioid HPI Opioid Management Most Recent Opioid Data: Last Pain Assessment 08/13/23 11:31 Last MAR Pain Assessment 08/13/23 10:33 Last ORT Total Score 0 08/13/23 01:58 Last ORT Risk Category Low Risk 08/13/23 01:58 Review of Systems ROS Status of ROS 10 or more systems reviewed and unremark able except as noted in history and below [facility] Medical History (Updated 08/13/23 @ 12:03 by Shaikh Kalin MD) HLD (hyperlipidemia) ?E78.5 - Hyperlipidemia, unspecified (ICD-10) Chronic back pain ?M54.9 - Dorsalgia, unspecified (ICD-10) ?G89.29 - Other chronic pain (ICD-10) Alcohol abuse, in remission ?F10.11 - Alcohol abuse, in remission (ICD-10) Type 2 diabetes mellitus ?E11.9 - Type 2 diabetes mellitus without complications (ICD-10) COPD (chronic obstructive pulmonary disease) ?J44.9 - Chronic obstructive pulmonary disease, unspecified (ICD-10) Sleep apnea ?G47.30 - Sleep apnea, unspecified (ICD-10) Hypertension ?I10 - Essential (primary) hypertension (ICD-10) 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) Hiatal hernia ?K44.9 - Diaphragmatic hernia without obstruction or gangrene (ICD-10) Inguinal hernia bilateral, non-recurrent ?K40.20 - Bilateral inguinal hernia, without obstruction or gangrene, not specified as recurrent (ICD-10) Influenza ?J11.1 - Influenza due to unidentified influenza virus with other respiratory manifestations (ICD-10) Giardia ?A07.1 - Giardiasis [lambliasis] (ICD-10) CMV (cytomegalovirus) ?B25.9 - Cytomegaloviral disease, unspecified (ICD-10) Rheumatic fever ?I00 - Rheumatic fever without heart involvement (ICD-10) Prostate cancer ?C61 - Malignant neoplasm of prostate (ICD-10) Surgical History (Updated 08/13/23 @ 07:20 by Katharine Timmons, AMY) [place] teeth extracted ?K08.409 - Partial loss of teeth, unspecified cause, unspecified class (ICD- 10) History of nephrectomy, left ?Z90.5 - Acquired absence of kidney (ICD-10) Family History (Updated 08/13/23 @ 01:56 by Katharine Timmons, AMY) Other Family history of cancer Family history of diabetes mellitus Social History (Updated 08/13/23 @ 01:57 by Katharine Timmons, AMY) Within the past year, how often did you have a drink containing alcohol: 2-4 times a month Within the past year, how many standard drinks containing alcohol did you have on a typical day: 3 or 4 Within the past year, how often did you have six or more drinks on one occasion: less than monthly Total score: 3 Score interpretation: A score of 4 or more indicates drinking is likely to affect patient's safety. Smoking status: Current every day smoker Non-prescribed substance use: denies use Highest level of school completed/degree received: Associate degree: occupational, technical, vocational program Do you think of yourself as: straight/heterosexual Gender Identity: male Meds Home Medications and Allergies Home Medications Medication Instructions Recorded Confirmed Type albuterol sulfate 90 mcg/actuation 2 inh inhalation Q6H PRN shortness 04/02/23 08/12/23 History aerosol inhaler of breath or wheezing atorvastatin 40 mg tablet 40 mg PO DAILY 04/02/23 08/12/23 History budesonide-formoterol HFA 160 1 inh inhalation Q12H 04/02/23 08/12/23 History mcg-4.5 mcg/actuation aerosol inhaler (Symbicort) furosemide 20 mg tablet 20 mg PO DAILY 04/02/23 08/12/23 History losartan 50 mg tablet 50 mg PO DAILY 04/02/23 08/12/23 History metoprolol tartrate 25 mg tablet 25 mg PO DAILY 04/02/23 08/12/23 History tamsulosin 0.4 mg capsule 0.4 mg PO Q24H 04/02/23 08/12/23 History vit C 250 mg-vit E 90 mg-zinc 40 1 tab PO QDAY 08/12/23 08/12/23 History mg-copper 1 [id number] capsule (PreserVision AREDS-2) Allergies Allergy/AdvReac Type Severity Reaction Status Date / Time No Known Drug Allergies Allergy Verified 08/12/23 21:08 Exam Constitutional Vital Signs, click to edit/add: Last Vital Signs Temp 97.9 F 08/13/23 08:22 Pulse 60 08/13/23 10:38 Resp 18 08/13/23 08:22 BP 167/83 H 08/13/23 08:22 Pulse Ox 93 L 08/13/23 09:48 O2 Del Method Room Air 08/13/23 08:22 Documenting provider has reviewed patient's vital signs: yes Common normals: no apparent distress and oriented x3 General appearance: cooperative HENMT Common normals: normocephalic and head/scalp atraumatic Head and scalp: normocephalic and atraumatic Eye Common normals: conjunctivae normal and no scleral icterus Conjunctiva: conjunctiva(e) normal Respiratory Common normals: normal respiratory effort Effort & inspection: able to speak in complete sentences Auscultation: wheezes Cardio Common normals: regular rate, S1 normal heart sound and S2 normal heart sound Rate: regular rate Heart sounds: S1 normal and S2 normal GI Common normals: Normal to inspection, nondistended, normoactive bowel sounds present, soft to palpation, non-tender and no hepatosplenomegaly Palpation: soft and no hepatosplenomegaly Extremity Common normals: no clubbing, cyanosis or edema Neuro Common normals: oriented x3, moves all extremities and no focal motor deficits Psych Common normals: mental status grossly normal, denies hallucinations, denies homicidal ideation and denies suicidal ideation Results Labs Labs: Short CBC 08/12/23 08/13/23 08/13/23 Range/Units 21:14 04:23 10:08 WBC 7.9 9.7 (4.0-11.0) 10^3/uL Hgb 14.3 13.2 L 13.0 L (14.0-18.0) g/dL Hct 41.4 L 39.0 L 38.8 L (42.0-54.0) % Plt Count 217 184 (150-450) 10^3/uL BMP 08/12/23 08/13/23 21:14 04:23 Sodium 143 142 Potassium 3.8 3.7 Chloride 104 108 H Carbon Dioxide 30.8 25.6 BUN 17.0 14.0 Creatinine 1.20 1.06 Glucose 95 98 Calcium 9.1 8.6 Liver Function 08/12/23 08/13/23 Range/Units 21:14 04:23 Total Bilirubin 0.6 0.8 (0.2-1.0) mg/dL AST 15 14 L (15-37) U/L ALT 23 22 (16-63) U/L Alkaline Phosphatase 53 46 (46-116) U/L Albumin 3.6 3.2 L (3.4-5.0) g/dL Urine 08/12/23 Range/Units 23:26 Urine Color Yellow (YELLOW) Urine Clarity Clear (CLEAR) Urine pH 6.5 (5.0-9.0) Ur Specific [place] 1.020 (1.005-1.025) Urine Protein Negative (NEG/TRACE) mg/dL Urine Glucose (UA) Negative (NEGATIVE) mg/dL Assessment and Plan Assessment and Plan (1) Hematemesis with nausea: (2) Hypertension: Qualifiers: Hypertension type: primary hypertension Qualified Code(s): I10 - Essential (primary) hypertension (3) COPD (chronic obstructive pulmonary disease): Qualifiers: COPD type: emphysema Emphysema type: unspecified Qualified Code(s): J43.9 - Emphysema, unspecified (4) Type 2 diabetes mellitus: Qualifiers: Diabetes mellitus long term care pharmacist insulin use: without longterm use Diabetes mellitus complication status: without complication Qualified Code(s): E11.9 - Type 2 diabetes mellitus without complications (5) Alcohol abuse, in remission: (6) Chronic back pain: Qualifiers: Back pain location: low back pain Back pain laterality: left Sciatica presence: without sciatica Qualified Code(s): M54.50 - Low back pain, unspecified; G89.29 - Other chronic pain (7) HLD (hyperlipidemia): Plan Patient admitted for a single episode of hematemesis and it sounds like he has had gastro enteritis over past 4-5 days and had an episode of vomiting with possible streaks of blood in it. His Hb is stable, and at baseline. Stool for occult blood is negative. He is tolerating PO diet with mild nausea. He has had no diarrhea since admission. His biggest complaints is lower back pain that is chronic and likely exacerbated due to hospital stay. Patient stable for discharge. Will add PPI to his regimen.
--- NOTE | 2023-08-16 13:06 | CM.DCFOLLOWU ---
1st attempt discharge follow up call, no answer 08/16/23
--- NOTE | 2023-08-17 13:31 | CM.DCFOLLOWU ---
2nd attempt discharge follow up call, no answer 08/17/23
--- NOTE | 2023-08-18 14:28 | CM.DCFOLLOWU ---
3rd attempt discharge follow up call, no answer 08/18/23
== END 2023-08-13 13:49 | disposition home or self-care (01) ==
LOC: ER 08-13 00:55 → MS 08-13 01:35
PROVIDERS: Nurse Practitioner Acute Care; Admitting Provider Internal Medicine; Emergency Provider Internal Medicine; PCP Internal Medicine; Visit Provider Internal Medicine
DX: K92.0 Hematemesis (principal); I10 Essential (primary) hypertension; J43.9 Emphysema, unspecified; E11.9 Type 2 diabetes mellitus without complications; F10.11 Alcohol abuse, in remission; G89.29 Other chronic pain; M54.50 Low back pain, unspecified; E78.5 Hyperlipidemia, unspecified; F17.210 Nicotine dependence, cigarettes, uncomplicated; Z85.46 Personal history of malignant neoplasm of prostate; Z85.528 Personal history of other malignant neoplasm of kidney; Z90.5 Acquired absence of kidney; Z79.899 Other long term (current) drug therapy; G47.30 Sleep apnea, unspecified
CPT/HCPCS: 36415; 74177; 80053; 81003; 82948; 83690; 84439; 84443; 84484; 85014; 85018; 85025; 85610; 93005; 94640; 96361; 96374; 96375; 96376; 99285; G0328; G0378; Q9967

== ENCOUNTER 2023-08-23 14:13 | Outpatient (OUT) | payer MEDICARE, SELFPAY ==
--- OUTSIDE RECORDS SUMMARY | 2023-08-23 14:22 | XMS_ITS | CCD ---
Author Organization [facility] Care Team Providers Care Retail Salesperson Name Role Phone Jose Victoria Unavailable Carlos HOLLINS Attending Unavailable FAWWAD, PATEL Primary Care Unavailable Carlos HOLLINS Attending Unavailable FAWWAD, PATEL Primary Care Unavailable Carlos HOLLINS Attending Unavailable FAWWAD, PATEL Primary Care Unavailable COOKDR CARLOS Consulting Unavailable COOK, PEGGY Attending Unavailable FAWWAD, PATEL H Primary Care Unavailable GURVINDER, PEGGY Admitting Unavailable SAMSA ., RUKHSANA Admitting Unavailable DR LUCAS GOLDSTEIN Consulting Unavailable SAMSA ., RUKHSANA Attending Unavailable FAWWAD, PATEL H Primary Care Unavailable SAMSA ., RUKHSANA Consulting Unavailable FAWWAD, PATEL H Admitting Unavailable FAWWAD, PATEL H Attending Unavailable FAWWAD, PATEL H Consulting Unavailable FAWWAD, PATEL H Primary Care Unavailable SAMSA ., RUKHSANA Admitting Unavailable SAMSA ., RUKHSANA Attending Unavailable DR LUCAS GOLDSTEIN Consulting Unavailable FAWWAD, PATEL H Primary Care [...] PAY ., DR CARRASCO Consulting Unavailable AKIL, VARSAH Consulting Unavailable HAY ., DR ABEL Admitting Unavailable HAY ., DR ABEL Attending Unavailable GRECHNY .ABHI Consulting Unavailabl e FAWWAD, PATEL H Primary Care Unavailable HAY ., DR COLTEN Consulting Unavailable DR DA ELISE Consulting Unavailable ERNA LEON Consulting Unavailable RUKHSANA DUPONT Attending Unavailable SHAIKH Nancy QUINTEROS Primary Care Unavailable RUKHSANA DUPONT Consulting Unavailable RUKHSANA DUPONT Admitting Unavailable SHAIKH QUINTEROS Attending Unavailable Allergies Allergy Classification Reported Allergen(s) Allergy Type Date of Onset Reaction(s) Facility (1 source) No Known Medication Allergies; Translations: [No Known Medication Allergies] Propensity to adverse reactions (disorder) [facility] Repository Medications Current Medications Medication Drug Class(es) Dates Sig (Normalized) Sig (Original) [id number] 200 actuat albuterol 0.09 mg/actuat metered dose [...] 04-12-2022 Episodic Other aftercare (1 source) 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 Men with a owrhbz-nutb-vbreik risk for skin cancer may want to see a [facility] (lending activities supervisor) for an annual body check. What are the benefits of screening? Cancer screening is done to look for cancer in the very early stages, before it spreads and becomes harder to treat and before you would start to notice symptoms. Finding cancer early improves the chances of successful treatment. It ma (more content not included)... Normal [facility] Screenson 10-15-2022 Screens [id number]# 1.00CD:127 Normal [facility] Urology Office/Clinic Noteon 10-15-2022 Urology Office/Clinic Note [...] that plan Follow-up With When Contact Information GURVINEDR HENDRICKSON, Carlos Day, URL [address] [address]- Additional Instructions: 1 yr PSA Patient Education [...] Vitamin D3 (more content not included)... Normal [facility] Comment on above: Result Comment: Elec tronically Signed By: Carlos HOLLINS MD\.br\Date and Time Signed: 10/15/22 10:11 EDT\.br\Electronically Co-Signed By: Laurel Bradley\.br\Date and Time Co-Signed: 10/15/22 10:08 EDT Lab Reportson 10-13-2022 Lab Reports [id number] .[id number]:127 Normal [facility] CT CHEST WO CONon 10-11-2022 CT CHEST [...] Normal [facility] CBC AUTO DIFFon 08-23-2022 BASO # 0.0 103/ul Normal 0.0-0.1 [facility] Comment on above: Performed By: #### C BC #### [facility] Laboratory [address] [place] [address] Dr. Jesus White Basophils/100 WBC (Bld) 0.5 % Normal 0.2-2.0 [facility] Comment on above: Performed By: #### C BC #### [facility] Laboratory [address] [place] [address] Dr. Jesus White EO # 0.2 103/ul Normal 0.0-0.7 [facility] Comment on above: Performed By: #### C BC #### [facility] Laboratory [address] [place] [address] Dr. Jesus White Eosinophils/100 WBC (Bld) 2.2 % Normal 0.9-7.0 [facility] Comment on above: Performed By: #### C BC #### [facility] Laboratory [address] [place] [address] Dr. Jesus White Erythrocyte distribution width (RBC) [Ratio] 13.3 % Normal 11.0-15.0 [facility] Comment on above: Performed By: #### C BC #### [facility] Laboratory [address] [place] [address] Dr. Jesus White Hematocrit (Bld) [Volume fraction] 43.0 % Normal 42.0-54.0 [facility] Comment on above: Performed By: #### C BC #### [facility] Laboratory [address] [place] [address] Dr. Jesus White Hemoglobin (Bld) [Mass/Vol] 14.4 g/dL Normal 14.0-18.0 [facility] Comment on above: Performed By: #### C BC #### [facility] Laboratory [address] [place] [address] Dr. Jesus White IG # 0.02 10e3/ul Normal 0.00-0.03 [facility] Comment on above: Performed By: #### C BC #### [facility] Laboratory [address] [place] [address] Dr. Jesus White IG % 0.2 % Normal 0.0-0.5 [facility] Comment on above: Performed By: #### C BC #### [facility] Laboratory [address] [place] [address] Dr. Jesus White LYMPH # 3.0 103/ul Normal 1.2-3.8 [facility] Comment on above: Performed By: #### C BC #### [facility] Laboratory [address] [place] [address] Dr. Jesus White Lymphocytes/100 WBC (Bld) 35.8 % Normal 20.5-60.0 [facility] Comment on above: Performed By: #### C BC #### [facility] Laboratory [address] [place] [address] Dr. Jesus White MANUAL DIFF REQ NO Normal [facility] Comment on above: Performed By: #### C BC #### [facility] Laboratory [address] [address] [address] Jesus White MCH (RBC) [Entitic mass] 30.6 pg Normal 25.9-34.0 [facility] Comment on above: Performed By: #### C BC #### [facility] Laboratory [address] [address] [address] Jesus White MCHC (RBC) [Mass/Vol] 33.5 g/dL Normal 29.9-35.2 [facility] Comment on above: Performed By: #### C BC #### [facility] Laboratory [address] [place] [address] Dr. Jesus White MCV (RBC) [Entitic vol] 91.5 fL Normal 80.0-94.0 [facility] Comment on above: Performed By: #### C BC #### [facility] Laboratory [address] [place] [address] Dr. Jesus White MONO # 0.8 103/ul Normal 0.3-0.8 [facility] Comment on above: Performed By: #### C BC #### [facility] Laboratory [address] [place] [address] Dr. Jesus White Monocytes/100 WBC (Bld) 9.1 % Normal 1.7-12.0 [facility] Comment on above: Performed By: #### C BC #### [facility] Laboratory [address] [place] [address] Dr. Jesus White NEUT # 4.4 103/ul Normal 1.4-6.5 [facility] Comment on above: Performed By: #### C BC #### [facility] Laboratory [address] [place] [address] Dr. Jesus White Neutrophils/100 WBC (Bld) 52.2 % Normal 43.0-75.0 [facility] Comment on above: Performed By: #### C BC #### [facility] Laboratory [address] [place] [address] Dr. Jesus White Platelet mean volume (Bld) [Entitic vol] 9.8 fL Normal 9.5-13.5 [facility] Comment on above: Performed By: #### C BC #### [facility] Laboratory [address] [place] [address] Dr. Jesus White PLT 236 103/ul Normal 150-450 [facility] Comment on above: Performed By: #### C BC #### [facility] Laboratory [address] [place] [address] Dr. Jesus White RBC 4.70 106/ul Normal 4.70-6.10 [facility] Comment on above: Performed By: #### C BC #### [facility] Laboratory [address] [place] [address] Dr. Jesus White WBC 8.4 103/ul Normal 4.0-11.0 [facility] Comment on above: Performed By: #### C BC #### [facility] Laboratory [address] [place] [address] Dr. Jesus White LIPID PROFILEon 08-23-2022 CHOL-HDL RATIO NORM SEE BELOW Normal [facility] Comment on above: Result Comment: 3.3 - 4.4 LOW RISK 4.4 - 7.1 AVERAGE RISK 7.1 - 11.0 MODERATE RISK >11.0 HIGH RISK Performed By: #### C MP, LIPID #### [facility] Laboratory [address] [place] [address] Dr. Jesus White Cholesterol [Mass/Vol] 121 mg/dL Normal <=200 [facility] Comment on above: Performed By: #### C MP, LIPID #### [facility] Laboratory [address] [place] [address] Dr. Jesus White Cholesterol in HDL [Mass/Vol] 37 mg/dL Critically low 40-60 [facility] Comment on above: Performed By: #### C MP, LIPID #### [facility] Laboratory [address] [place] [address] Dr. Jesus White Cholesterol in LDL [Mass/Vol] 59.6 mg/dL Normal [facility] Comment on above: Performed By: #### C MP, LIPID #### [facility] Laboratory [address] [place] [address] Dr. Jesus White Cholesterol.total/C holesterol in HDL [Mass ratio] 3.3 {ratio} Normal [facility] Comment on above: Performed By: #### C MP, LIPID #### [facility] Laboratory [address] [address] [address] Jesus White HDL NORMAL > or = 60 mg/dl - LO W CARDIOVASCULAR RISK <40 mg/dl - HIGH CARDIOVASCULAR RISK Normal [facility] Comment on above: Performed By: #### C MP, LIPID #### [facility] Laboratory [address] [address] [address] Jesus White LDL CALC NORMAL SEE BELOW Normal [facility] Comment on above: Result Comment: <100 mg/dl OPTIMAL 100 - 129 mg/dl NEAR OR ABOVE OPTIMAL 130 - 159 mg/dl BORDERLINE HIGH 160 - 189 mg/dl HIGH >190 mg/dl VERY HIGH Performed By: #### C MP, LIPID #### [facility] Laboratory [address] [address] [address] Jesus White Triglyceride [Mass/Vol] 122 mg/dL Normal <=150 [facility] Comment on above: Performed By: #### C MP, LIPID #### [facility] Laboratory [address] [address] [address] Jesus White VLDL CALC 24.4 mg/dL Normal [facility] Comment on above: Performed By: #### C MP, LIPID #### [facility] Laboratory [address] [address] [address] Jesus White PROF 14(COMP METB)on 023 Albumin [Mass/Vol] 3.8 g/dL Normal 3.4-5.0 [facility] Comment on above: Performed By: #### C MP, LIPID #### [facility] Laboratory [address] [address] [address] Jesus White Albumin/Globulin [Mass ratio] 1.1 {ratio} Normal [facility] Comment on above: Performed By: #### C MP, LIPID #### [facility] Laboratory [address] [address] [address] Jesus White ALP [Catalytic activity/Vol] 46 U/L Normal 46-116 [facility] Comment on above: Performed By: #### C MP, LIPID #### [facility] Laboratory [address] [address] [address] Jesus White ALT [Catalytic activity/Vol] 37 U/L Normal 16-63 [facility] Comment on above: Performed By: #### C MP, LIPID #### [facility] Laboratory [address] [address] [address] Jesus White Anion gap [Moles/Vol] 11.3 mmol/L Normal [facility] Comment on above: Performed By: #### C MP, LIPID #### [facility] Laboratory [address] [address] [address] Jesus White AST [Catalytic activity/Vol] 28 U/L Normal 15-37 [facility] Comment on above: Performed By: #### C MP, LIPID #### [facility] Laboratory [address] [address] [address] Jesus White Bilirubin [Mass/Vol] 0.5 mg/dL Normal 0.2-1.0 [facility] Comment on above: Performed By: #### C MP, LIPID #### [facility] Laboratory [address] [address] [address] Jesus White Calcium [Mass/Vol] 9.5 mg/dL Normal 8.5-10.1 [facility] Comment on above: Performed By: #### C MP, LIPID #### [facility] Laboratory [address] [address] [address] Jesus White Chloride [Moles/Vol] 104 mmol/L Normal 98-107 [facility] Comment on above: Performed By: #### C MP, LIPID #### [facility] Laboratory [address] [address] [address] Jesus White CO2 [Moles/Vol] 28.9 mmol/L Normal 21.0-32.0 [facility] Comment on above: Performed By: #### C MP, LIPID #### [facility] Laboratory [address] [address] [address] Jesus White Creatinine [Mass/Vol] 0.99 mg/dL Normal 0.70-1.30 [facility] Comment on above: Performed By: #### C MP, LIPID #### [facility] Laboratory [address] [address] [address] Jesus White EGFR-AF INDONESIAN >60 Normal >=60 [facility] Comment on above: Performed By: #### C MP, LIPID #### [facility] Laboratory [address] [address] [address] Jesus White EGFR-NON AF INDONESIAN >60 Normal >=60 [facility] Comment on above: Performed By: #### C MP, LIPID #### [facility] Laboratory [address] [address] [address] Jesus White Globulin (S) [Mass/Vol] 3.6 g/dL Normal [facility] Comment on above: Performed By: #### C MP, LIPID #### [facility] Laboratory [address] [place] [address] Dr. Jesus White Glucose [Mass/Vol] 92 mg/dL Normal 74-106 [facility] Comment on above: Performed By: #### C MP, LIPID #### [facility] Laboratory [address] [place] [address] Dr. Jesus White Potassium [Moles/Vol] 4.2 mmol/L Normal 3.5-5.1 [facility] Comment on above: Performed By: #### C MP, LIPID #### [facility] Laboratory [address] [place] [address] Dr. Jesus White Protein [Mass/Vol] 7.4 g/dL Normal 6.4-8.2 [facility] Comment on above: Performed By: #### C MP, LIPID #### [facility] Laboratory [address] [address] [address] Jesus White Sodium [Moles/Vol] 140 mmol/L Normal 136-145 [facility] Comment on above: Performed By: #### C MP, LIPID #### [facility] Laboratory [address] [address] [address] Jesus White Urea nitrogen [Mass/Vol] 12.0 mg/dL Normal 7.0-18.0 [facility] Comment on above: Performed By: #### C MP, LIPID #### [facility] [address] [place], [place] [address] Dr. Jesus White Urea nitrogen/Creatinine [Mass ratio] 12.1 mg/mg Normal [facility] Comment on above: Performed By: #### C MP, LIPID #### [facility] Laboratory [address] [place], [place] [address] LUNG CANCER SCREENINGon [...] by: LUCAS GOLDSTEIN Date: 2022-07-05 12:53 Normal [facility] BLOOD GASES BTYon 04-08-2022 02 MODE ROOM AIR Normal [facility] Comment on above: Performed By: #### A BG ####[facility] [address] [place], [place] [address]AxDr. Jesus White ALLENS TEST Positive Normal [facility] Comment on above: Performed By: #### A BG ####[facility] [address] [address]Dr. Jesus White Base excess Calc (Bld) [Moles/Vol] -0.4000 mmol/L Normal -2.0-2.0 [facility] Comment on above: Performed By: #### A BG ####[facility] [address] [place], [place] [address]Dr. Jesus White BIPAP PRESSURE Normal [facility] Comment on above: Performed By: #### A BG ####[facility] [address] [place], [place] [address]Dr. Jesus White CPAP [facility] Comment on above: Performed By: #### A BG ####[facility] [address] [place], [place] [address]Dr. Jesus White FIO2 Normal [facility] Comment on above: Performed By: #### A BG ####[facility] [address] [place], [place] [address]Dr. Jesus White HCO3 (Bld) [Moles/Vol] 24.7 mmol/L Normal 22.0-26.0 [facility] Comment on above: Performed By: #### A BG ####[facility] [address] [place], [place] [address]Dr. Jesus White LPM Normal [facility] Comment on above: Performed By: #### A BG ####[facility] [address] [place], [place] [address]Dr. Jesus White MINUTE VOLUME Normal [facility] Comment on above: Performed By: #### A BG ####[facility] [address] [place], [place] [address]Dr. Jesus White Oxygen (Bld) [Partial pressure] 75.3 mm[Hg] Critically low 80.0-100.0 [facility] Comment on above: Performed By: #### A BG ####[facility] [address] [place], [place] [address]Dr. Jesus White Oxygen saturation in Blood 94.7 % Critically low 95.0-100.0 [facility] Comment on above: Performed By: #### A BG ####[facility] [address] [address]Dr. Jesus White PCO2 42.0 mmHg Normal 35.0-45.0 [facility] Comment on above: Performed By: #### A BG ####[facility] [address] [address]Dr. Jesus White PEEP [facility] Comment on above: Performed By: #### A BG ####[facility] [address] [address]Dr. Jesus White pH (Bld) 7.379 [pH] Normal 7.350-7.450 [facility] Comment on above: Performed By: #### A BG ####[facility] [address] [place], [place] [address]Dr. Jesus White PIP [facility] Comment on above: Performed By: #### A BG ####[facility] [address] [place], [place] [address]Dr. Jesus White PS [facility] Comment on above: Performed By: #### A BG ####[facility] [address] [place], [place] [address]Dr. Jesus White PUNCTURE SITE LR [facility] [place] [facility] Comment on above: Performed By: #### A BG ####[facility] [address] [place], [place] [address]Dr. Jesus White RATE [facility] Comment on above: Performed By: #### A BG ####[facility] [address] [address]Dr. Jesus White VENT MODE [facility] Comment on above: Performed By: #### A BG ####[facility] [address] [place], [place] [address]Dr. Jesus White VT [facility] Comment on above: Performed By: #### A BG ####[facility] [address] [place], [place] [address]Dr. Jesus White CBC AUTO DIFFon 04-08-2022 BASO # 0.1 103/ul Normal 0.0-0.1 [facility] Comment on above: Performed By: #### C BC #### [facility] Laboratory [address] [place] [address] Dr. Jesus White Basophils/100 WBC (Bld) 0.6 % Normal 0.2-2.0 [facility] Comment on above: Performed By: #### C BC #### [facility] Laboratory [address] [place] [address] Dr. Jesus White EO # 0.2 103/ul Normal 0.0-0.7 [facility] Comment on above: Performed By: #### C BC #### [facility] Laboratory [address] [place] [address] Dr. Jesus White Eosinophils/100 WBC (Bld) 1.5 % Normal 0.9-7.0 [facility] Comment on above: Performed By: #### C BC #### [facility] Laboratory [address] [place] [address] Dr. Jesus White Erythrocyte distribution width (RBC) [Ratio] 13.2 % Normal 11.0-15.0 [facility] Comment on above: Performed By: #### C BC #### [facility] Laboratory [address] [place] [address] Dr. Jesus White Hematocrit (Bld) [Volume fraction] 41.7 % Critically low 42.0-54.0 [facility] Comment on above: Performed By: #### C BC #### [facility] Laboratory [address] [place] [address] Dr. Jesus White Hemoglobin (Bld) [Mass/Vol] 14.3 g/dL Normal 14.0-18.0 [facility] Comment on above: Performed By: #### C BC #### [facility] Laboratory [address] [place] [address] Dr. Jesus White IG # 0.03 10e3/ul Normal 0.00-0.03 [facility] Comment on above: Performed By: #### C BC #### [facility] Laboratory [address] [place] [address] Dr. Jeuss White IG % 0.3 % Normal 0.0-0.5 [facility] Comment on above: Performed By: #### C BC #### [facility] Laboratory [address] [place] [address] Dr. Jesus White LYMPH # 5.6 103/ul Critically high 1.2-3.8 [facility] Comment on above: Performed By: #### C BC #### [facility] Laboratory [address] [place] [address] Dr. Jesus White Lymphocytes/100 WBC (Bld) 57.0 % Normal 20.5-60.0 [facility] Comment on above: Performed By: #### C BC #### [facility] Laboratory [address] [place] [address] Dr. Jesus White MANUAL DIFF REQ NO Normal [facility] Comment on above: Performed By: #### C BC #### [facility] Laboratory [address] [place] [address] Dr. Jesus White MCH (RBC) [Entitic mass] 31.4 pg Normal 25.9-34.0 [facility] Comment on above: Performed By: #### C BC #### [facility] Laboratory [address] [place] [address] Dr. Jesus White MCHC (RBC) [Mass/Vol] 34.3 g/dL Normal 29.9-35.2 [facility] Comment on above: Performed By: #### C BC #### [facility] Laboratory [address] [place] [address] Dr. Jesus White MCV (RBC) [Entitic vol] 91.6 fL Normal 80.0-94.0 [facility] Comment on above: Performed By: #### C BC #### [facility] Laboratory [address] [place] [address] Dr. Jesus White MONO # 0.5 103/ul Normal 0.3-0.8 [facility] Comment on above: Performed By: #### C BC #### [facility] Laboratory [address] [place] [address] Dr. Jesus White Monocytes/100 WBC (Bld) 5.1 % Normal 1.7-12.0 [facility] Comment on above: Performed By: #### C BC #### [facility] [address] [place] [address] Dr. Jesus White NEUT # 3.5 103/ul Normal 1.4-6.5 [facility] Comment on above: Performed By: #### C BC #### [facility] [address] [place] [address] Dr. Jesus White Neutrophils/100 WBC (Bld) 35.5 % Critically low 43.0-75.0 [facility] Comment on above: Performed By: #### C BC #### [facility] [address] [place] [address] Dr. Jesus White Platelet mean volume (Bld) [Entitic vol] 9.5 fL Normal 9.5-13.5 [facility] Comment on above: Performed By: #### C BC #### [facility] [address] [place] [address] Dr. Jesus White PLT 222 103/ul Normal 150-450 [facility] Comment on above: Performed By: #### C BC #### [facility] [address] [place] [address] Dr. Jesus White RBC 4.55 106/ul Critically low 4.70-6.10 [facility] Comment on above: Performed By: #### C BC #### [facility] [address] [place] [address] Dr. Jesus White WBC 9.8 103/ul Normal 4.0-11.0 [facility] Comment on above: Performed By: #### C BC #### [facility] [address] [place] [address] STROKE HEAD WOon [...] Normal [facility] Covid-19 PCR (CVDTB)on SARS-CoV-2 (COVID-19) RNA PAUL+probe Ql (Unsp spec) Not detected Normal NOT DETECTED [facility] Comment on above: Result Comment: When diagnostic [...] for this test is supported by the [employer] of Health and Human Service's declaration that [...] VDTBH #### [facility] [address] [place], [place] [address] Dr. Jesus White ETHANOL (BLD ALC)on 04-08-20 22 ALC NOTE NOTE: 80 mg/dl is th e legal limit for a blood alcohol level Normal [facility] Comment on above: Performed By: #### E TH ####[facility] [address] [place], [place] [address]QtDr. Jesus White Ethanol [Mass/Vol] 344 mg/dL Normal [facility] Comment on above: Performed By: #### E TH ####[facility] [address] [place], [place] [address]EjDr. Jesus White PROF 14(COMP METB)on 022 Albumin [Mass/Vol] 3.5 g/dL Normal 3.4-5.0 [facility] Comment on above: Performed By: #### C MP, HSTROPN #### [facility] [address] [place] [address] [address] Jesus White Albumin/Globulin [Mass ratio] 1.0 {ratio} Normal [facility] Comment on above: Performed By: #### C MP, HSTROPN #### [facility] [address] [address] [address] Jesus White ALP [Catalytic activity/Vol] 41 U/L Critically low 46-116 [facility] Comment on above: Performed By: #### C MP, HSTROPN #### [facility] [address] [address] [address] Jesus White ALT [Catalytic activity/Vol] 28 U/L Normal 16-63 [facility] Comment on above: Performed By: #### C MP, HSTROPN #### [facility] [address] [address] [address] Jesus White Anion gap [Moles/Vol] 12.1 mmol/L Normal [facility] Comment on above: Performed By: #### C MP, HSTROPN #### [facility] [address] [address] [address] Jesus White AST [Catalytic activity/Vol] 19 U/L Normal 15-37 [facility] Comment on above: Performed By: #### C MP, HSTROPN #### [facility] [address] [address] [address] Jesus White Bilirubin [Mass/Vol] 0.3 mg/dL Normal 0.2-1.0 [facility] Comment on above: Performed By: #### C MP, HSTROPN #### [facility] [address] [address] [address] Jesus White Calcium [Mass/Vol] 8.8 mg/dL Normal 8.5-10.1 [facility] Comment on above: Performed By: #### C MP, HSTROPN #### [facility] [address] [place] [address] Dr. Jesus White Chloride [Moles/Vol] 105 mmol/L Normal 98-107 [facility] Comment on above: Performed By: #### C MP, HSTROPN #### [facility] [address] [place] [address] Dr. Jesus White CO2 [Moles/Vol] 24.8 mmol/L Normal 21.0-32.0 [facility] Comment on above: Performed By: #### C MP, HSTROPN #### [facility] [address] [place] [address] Dr. Jesus White Creatinine [Mass/Vol] 1.53 mg/dL Critically high 0.70-1.30 [facility] Comment on above: Performed By: #### C MP, HSTROPN #### [facility] [address] [place] [address] Dr. Jesus White EGFR-AF INDONESIAN 55 mL/min/1.73m2 Critically low >=60 [facility] Comment on above: Result Comment: Prev iously reported as: (blank) On 04/08/2022 19:15 By MH Performed By: #### C MP, HSTROPN #### [facility] [address] [place] [address] Dr. Jesus White EGFR-NON AF INDONESIAN 46 mL/min/1.73m2 Critically low >=60 [facility] Comment on above: Result Comment: Prev iously reported as: (blank) On 04/08/2022 19:15 By MH Performed By: #### C MP, HSTROPN #### [facility] [address] [place] [address] Dr. Jesus White Globulin (S) [Mass/Vol] 3.5 g/dL Normal [facility] Comment on above: Performed By: #### C MP, HSTROPN #### [facility] [address] [place] [address] Dr. Jesus White Glucose [Mass/Vol] 116 mg/dL Critically high 74-106 [facility] Comment on above: Performed By: #### C JORGE, HSTROPN #### [facility] [address] [address] [address] Jesus White Potassium [Moles/Vol] 3.9 mmol/L Normal 3.5-5.1 [facility] Comment on above: Performed By: #### C MP, HSTROPN #### [facility] [address] [address] [address] Jesus White Protein [Mass/Vol] 7.0 g/dL Normal 6.4-8.2 [facility] Comment on above: Performed By: #### C JORGE, HSTROPN #### [facility] [address] [address] [address] Jesus White Sodium [Moles/Vol] 138 mmol/L Normal 136-145 [facility] Comment on above: Performed By: #### C JORGE, HSTROPN #### [facility] [address] [address] [address] Jesus White Urea nitrogen [Mass/Vol] 17.0 mg/dL Normal 7.0-18.0 [facility] Comment on above: Performed By: #### C JORGE, HSTROPN #### [facility] [address] [address] [address] Jesus White Urea nitrogen/Creatinine [Mass ratio] 11.1 mg/mg Normal [facility] Comment on above: Performed By: #### C MP, HSTROPN #### [facility] [address] [address] [address] Jesus White PROTIMEon 04-08-2022 INR Coag (PPP) [Relative time] 1.00 {INR} Normal [facility] Comment on above: Performed By: #### P TT, PT ####[facility] [address] [address]Dr. Jesus White INR GUIDELINES SEE BELOW Normal [facility] Comment on above: Result Comment: JULIET RED INR: 2.0 - 3.0 CONDITIONS NOT LISTED BELOW 2.5 - 3.5 FOR PROSTHETIC HEART VALVE REPLACEMENT 2.5 - 3.5 RECURRENT THROMBOSIS Performed By: #### P TT, PT ####[facility] [address] [place] [address]Dr. Jesus White PT Coag (PPP) [Time] 10.8 s Normal 9.0-11.6 [facility] Comment on above: Performed By: #### P TT, PT ####[facility] [address] [place] [id number] White PTTon 04-08-2022 aPTT Coag (Bld) [Time] 24.8 s Normal 22.3-36.2 [facility] Comment on above: Performed By: #### P TT, PT ####[facility] [address] [place] [address]Dr. Jesus White TROPONIN, HIGH SENSITIVITYon 04-08-2022 HSTROP 16.7 pg/mL Normal 4.0-76.1 [facility] Comment on above: Result Comment: CUT- OFF POINTS HAVE BEEN ESTABLISHED BASED ON THE FOURTH UNIVERSAL DEFINITIONS OF MYOCARDIAL INFARCTION. THE UPPER REFERENCE LIMIT (URL) OF TROPONIN, DEFINED THE 99TH PERCENTILE OF cTnI DISTRIBUTION IN A REFERENCE POPULATION, HAS BEEN CONFIRMED THE DECISION THRESHOLD FOR CA DIAGNOSIS. Performed By: #### C MP, HSTROPN #### [facility] [address] [place] [address] Dr. Jesus White PROF CHEM 8 (BAS METB)on Anion gap [Moles/Vol] 13.3 mmol/L Normal [facility] Comment on above: Performed By: #### B MP #### [facility] [address] [place] [address] [address] Jesus White Calcium [Mass/Vol] 9.7 mg/dL Normal 8.5-10.1 [facility] Comment on above: Performed By: #### B MP #### [facility] [address] [place] [address] [address] Jesus White Chloride [Moles/Vol] 103 mmol/L Normal 98-107 [facility] Comment on above: Performed By: #### B MP #### [facility] [address] [place] [address] [address] Jesus White CO2 [Moles/Vol] 28.4 mmol/L Normal 21.0-32.0 [facility] Comment on above: Performed By: #### B MP #### [facility] [address] [place] [address] [address] Jesus White Creatinine [Mass/Vol] 1.21 mg/dL Normal 0.70-1.30 [facility] Comment on above: Performed By: #### B MP #### [facility] [address] [place] [address] [address] Jesus White EGFR-AF INDONESIAN >60 Normal >=60 [facility] Comment on above: Performed By: #### B MP #### [facility] [address] [place] [address] Dr. Jesus White EGFR-NON AF INDONESIAN 60 mL/min/1.73m2 Normal >=60 [facility] Comment on above: Performed By: #### B MP #### [facility] [address] [place] [address] [address] Jesus White Glucose [Mass/Vol] 95 mg/dL Normal 74-106 [facility] Comment on above: Performed By: #### B MP #### [facility] [address] [place] [address] [address] Jesus White Potassium [Moles/Vol] 3.7 mmol/L Normal 3.5-5.1 [facility] Comment on above: Performed By: #### B MP #### [facility] [address] [place] [address] [address] Jesus White Sodium [Moles/Vol] 141 mmol/L Normal 136-145 [facility] Comment on above: Performed By: #### B MP #### [facility] [address] [place] [address] [address] Jesus White Urea nitrogen [Mass/Vol] 12.0 mg/dL Normal 7.0-18.0 [facility] Comment on above: Performed By: #### B MP #### [facility] [address] [place] [address] [address] Jesus White Urea nitrogen/Creatinine [Mass ratio] 9.9 mg/mg Normal [facility] Comment on above: Performed By: #### B MP #### [facility] [address] [place] [address] [address] Jesus White ER URINE PROFILEon 2 Bilirubin Ql (U) Negative Normal NEGATIVE [facility] Comment on above: Performed By: #### VALERIO GOULDRO ####[facility] [address] [place] [address]Dr. Jesus White Clarity (U) CLEAR Normal CLEAR [facility] Comment on above: Performed By: #### CALEB GOULD ####[facility] [address] [place], [place] [address]Dr. Jesus White Color (U) LT. YELLOW Normal YELLOW [facility] Comment on above: Performed By: #### CALEB GOULD ####[facility] [address] [place], [place] [address]Dr. Jesus MONTEJO A micrscopic examination will be performed if indicated. Normal [facility] Comment on above: Performed By: #### CALEB GOULD ####[facility] [address] [place], [place] [address]Dr. Jesus White Glucose Ql (U) Negative Normal NEGATIVE [facility] Comment on above: Performed By: #### CALEB GOULD ####[facility] [address] [place] [address]Dr. Jesus White Hemoglobin Ql (U) Negative Normal NEGATIVE [facility] Comment on above: Performed By: #### CALEB GOULD ####[facility] [address] [place], [place] [address]Dr. Jesus White Ketones Ql (U) Negative Normal NEGATIVE [facility] Comment on above: Performed By: #### CALEB GOULD ####[facility] [address] [place], [place] [address]Dr. Jesus White LEUKOCYTES Negative Normal NEGATIVE [facility] Comment on above: Performed By: #### ESTRELLITA GOULDICRO ####[facility] [address] [place] [address]Dr. Jesus White Nitrite Ql (U) Negative Normal NEGATIVE [facility] Comment on above: Performed By: #### Júnior BARNES UMICRO ####[facility] [address] [place] [address]Dr. Jesus White pH (U) 6.0 [pH] Normal 5-9 [facility] Comment on above: Performed By: #### ESTRELLITA GOULDICRO ####[facility] [address] [place] [address]Dr. Jesus White SPEC GRAVITY <=1.005 Abnormal 1.005-<=1.025 [facility] Comment on above: Performed By: #### ESTRELLITA GOULDICRO ####[facility] [address] [place], [place] [address]Dr. Jesus Christopher UA PROTEIN Negative Normal NEGATIVE/ TRACE [facility] Comment on above: Performed By: #### ESTRELLITA GOULDICRO ####[facility] [address] [place], [place] [address]Dr. Jesus White UR MICRO IND INDICATED Normal [facility] Comment on above: Performed By: #### VALERIO GOULDRO ####[facility] [address] [place], [place] [address]Dr. Jesus Christopher Urobilinogen Qn (U) 0.2 {Dash'U}/dL Normal 0.2 - 1. 0 [facility] Comment on above: Performed By: #### ESTRELLITA GOULDICRO ####[facility] [address] [place] [address]Dr. Jesus Christopher URINE MICROSCOPIC ONLYon BACTERIA NONE SEEN Normal NONE SEEN [facility] Comment on above: Performed By: #### Júnior BARNES UMICRO ####[facility] [address] [place] [address]Dr. Jesus White Bacteria identified Cx Nom (U) NOT INDICATED Normal [facility] Comment on above: Performed By: #### Júnior BARNES, UMICRO ####[facility] [address] [place] [address]Dr. Jesus White CAST NONE SEEN Normal NONE SEEN [facility] Comment on above: Performed By: #### E MOLLY, UMICRO ####[facility] [address] [place] [address]Dr. Jesus White Crystals LM Nom (Urine sed) NONE SEEN Normal NONE SEEN [facility] Comment on above: Performed By: #### E MOLLY, UMICRO ####[facility] [address] [place] [address]Dr. Jesus White Epithelial cells LM Ql (Urine sed) RARE Normal NONE SEEN /RARE [facility] Comment on above: Performed By: #### Júnior BARNES, UMICRO ####[facility] [address] [place] [address]Dr. Jesus White MUCOUS NONE SEEN Normal NONE SEEN [facility] Comment on above: Performed By: #### Júnior BARNES UMICRO ####[facility] [address] [place] [address]Dr. Jesus White RBC NONE SEEN Abnormal 0-2 [facility] Comment on above: Performed By: #### Júnior BARNES, UMICRO ####[facility] [address] [place] [address]Dr. Jesus White WBC NONE SEEN Normal NONE SEEN [facility] Comment on above: Performed By: #### Júnior BARNES UMICRO ####[facility] [address] [place], [place] [address]Dr. Jesus White US CRYSTAL DOP LEG LTon [...] by: VARSHA BARNARD Date: 2022-01-01 08:49 Normal [facility] Vital Signs Date Time Vital Sign Value Performing Clinician Facility 03-17-2023 15:20-0400 Body height 177.8 cm Jose Julien Other [facility] Other 03-17-2023 15:20-0400 Body mass index (BMI) [Ratio] 31.96 kg/m2 Jose Julien Other [facility] Other 03-17-2023 15:20-0400 Body temperature 96.9 [degF] Jose Julien Other [facility] Other 03-17-2023 15:20-0400 Body weight 101.06 kg Jose Julien Other [facility] Other 03-17-2023 15:20-0400 Diastolic blood pressure 73 mm[Hg] Jose Julien Other [facility] Other 03-17-2023 15:20-0400 Respiratory rate 18 /min Jose Julien Other [facility] Other 03-17-2023 15:20-0400 SaO2% (BldA) [Mass fraction] 98 % Jose Julien Other [facility] Other 03-17-2023 15:20-0400 Systolic blood pressure 134 mm[Hg] Jose Julien Other [facility] Other 09-30-2022 11:20-0400 Body height 177.8 cm Jose Julien Other [facility] Other 09-30-2022 11:20-0400 Body mass index (BMI) [Ratio] 33.6 kg/m2 Jose Julien Other [facility] Other 09-30-2022 11:20-0400 Body temperature 96.3 [degF] Jose Julien Other [facility] Other 09-30-2022 11:20-0400 Body weight 106.23 kg Jose Julien Other [facility] Other 09-30-2022 11:20-0400 Diastolic blood pressure 64 mm[Hg] Jose Julien Other [facility] Other 09-30-2022 11:20-0400 Respiratory rate 18 /min Jose Julien Other [facility] Other 09-30-2022 11:20-0400 SaO2% (BldA) [Mass fraction] 99 % Jose Julien Other [facility] Other 09-30-2022 11:20-0400 Systolic blood pressure 138 mm[Hg] Jose Julien Other [facility] Other 03-22-2022 14:00-0400 Body height 177.8 cm Jose Julien Other [facility] Other 03-22-2022 14:00-0400 Body mass index (BMI) [Ratio] 33.14 kg/m2 Jose Julien Other [facility] Other 03-22-2022 14:00-0400 Body temperature 95.9 [degF] Jose Julien Other [facility] Other 03-22-2022 14:00-0400 Body weight 104.78 kg Jose Julien Other [facility] Other 03-22-2022 14:00-0400 Diastolic blood pressure 70 mm[Hg] Jose Julien Other [facility] Other 03-22-2022 14:00-0400 Respiratory rate 18 /min Jose Julien Other [facility] Other 03-22-2022 14:00-0400 SaO2% (BldA) [Mass fraction] 97 % Jose Julien Other [facility] Other 03-22-2022 14:00-0400 Systolic blood pressure 119 mm[Hg] Jose Julien Other [facility] Other 06-18-2021 11:40-0500 Body height 177.8 cm Jose Julien Other [facility] Other 06-18-2021 11:40-0500 Body mass index (BMI) [Ratio] 37.22 kg/m2 Jose Julien Other [facility] Other 06-18-2021 11:40-0500 Body temperature 95.9 [degF] Jose Julien Other [facility] Other 06-18-2021 11:40-0500 Body weight 117.66 kg Jose Julien Other [facility] Other 06-18-2021 11:40-0500 Diastolic blood pressure 70 mm[Hg] Jose Julien Other [facility] Other 06-18-2021 11:40-0500 Respiratory rate 18 /min Jose Julien Other [facility] Other 06-18-2021 11:40-0500 SaO2% (BldA) [Mass fraction] 97 % Jose Julien Other [facility] Other 06-18-2021 11:40-0500 Systolic blood pressure 124 mm[Hg] Jose Julien Other [facility] Other Encounters Encounter Date Encounter Type Care Provider Facility Start: 10-17-2023 ambulatory Carlos HOLLINS Facility :[facility] Start: 05-10-2023 End: 05-10-2023 ambulatory SHAIKH ALDAIR Not Available Start: 03-17-2023 End: 03-17-2023 ambulatory Jose Julien Other [facility] Other Start: 03-17-2023 Office outpatient vi sit 15 minutes Jose Julien [facility] Start: 10-15-2022 End: 10-16-2022 ambulatory Carlos HOLLINS Facility:[facility] Start: 10-11-2022 End: 10-12-[address] CARLOS HOLLINS Facility: Start: 09-30-2022 End: 09-30-2022 ambulatory Jose Julien Other [facility] Other Start: 09-30-2022 Office outpatient vi sit 15 minutes Jose Julien [facility] Start: 08-24-2022 ambulatory Carlos HOLLINS Facility :[facility] Start: 08-23-2022 End: 08-24-2022 ambulatory SHAIKH Nancy QUINTEROS Facility:[facility] Start: 07-05-2022 End: 07-06-2022 ambulatory RUKHSANA LAUREN . Facility:[facility] Start: 04-08-2022 End: 04-08-[address] COLTEN NUNO . Facility:[facility] Start: 03-24-2022 End: 03-25-2022 ambulatory RUKHSANA SAMSA . Facility:[facility] Start: 03-22-2022 End: 03-22-2022 ambulatory Jose Julien Other [facility] Other Start: 03-22-2022 Office outpatient vi sit 25 minutes Jose Julien [facility] Start: 02-16-2022 End: 02-17-2022 ambulatory SHAIKH Nancy QUINTEROS Facility:[facility] Start: 01-01-2022 End: 01-01-[address] LUNA DUFFY . Facility:[facility] Start: 06-21-2021 End: 06-21-2021 ambulatory Jose Julien Other [facility] Other Start: 06-21-2021 Telephone encounter Jose Julien [facility] Start: 06-18-2021 End: 06-18-2021 ambulatory Jose Julien Other [facility] Other Start: 06-18-2021 Office outpatient vi sit 25 minutes Jose Julien [facility] Procedures Date Procedure Procedure Detail Performing Clinician Start: 10-11-[address] WINIFRED HOLLINS Comment on above: Performed By: #### P SAD ####[address] [address]JhJordin White Payers Date Payer Category Payer Medicare [id number] 2. [id number] 1955 Unknown [id number] 2.16.8 [id number] 1955 Unknown [id number] 2.16.8 [id number] 1955 Unknown [id number] 2.16.8 [id number] 1955 Unknown [id number] 2.16.84 [id number] 1955 Unknown [id number] 2.16.84 [id number] 1955 Unknown [id number] 2.16.84 [id number] 1955 Unknown [id number] 2.16.84 [id number] 1955 Unknown [id number] 2.16.84 [id number] 1955 Unknown [id number] 2.16.84 [id number] 1955 Unknown [id number] 2.16.84 [id number] 1955 Unknown [id number] 2.16.84 [id number] 1955 Unknown [id number] 2.16.840 .[id number] Social History Date Type Detail Facility Unknown if ever smoked [facility] Other Sex Assigned At Sex Assigned At Bir th [facility] Other Evaluation note 03-17-2023 Note Date & [...] Monitor LFTs and lipid profile with PCP. [facility] Other Evaluation note 09-30-2022 Note Date & [...] have gout. 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 He appears to be euvolemic. Continue current medications. 17 Mar, 2022 Chronic kidney disease, stage III (moderate) (ICD-10 [...] to slow down the progression of CKD. 17 Mar, 2022 Secondary hyperparathyroidism (ICD-10 - N25.81) MBD parameters including calcium, phosphorus, PTH and vitamin D are within the goal. 17 Mar, 2022 Solitary kidney (ICD-10 - Q60.0) He has a solitary right kidney. Mar, Hyperuricemia (ICD-10 - E79.0) He has hyperuricemia due to the CKD and reported to have gout. I have prescribed oral Allopurinol [facility] Other Clinical Note 01-01-2022 Note Date & [...] authenticated by: LUCAS GOLDSTEIN Date: 2022-01-01 08:35 [facility] Evaluation note 06-18-2021 Note Date & [...] Q60.0) He has a solitary right kidney. [facility] Other Evaluation note Note Date & Type Note Facility Evaluation note No Information [facility] Other History general Narrative - Reported Note Date & Type Note Facility History general Narrative - Reported [facility] Other History general Narrative - Reported Note [...] History BLOOD PRESSURE W 60/40, DEHYDRATION 04/2021 [facility] Other History general Narrative - Reported Note [...] History BLOOD PRESSURE W 60/40, DEHYDRATION 04/2021 [facility] Other History general Narrative - Reported Note [...] History BLOOD PRESSURE W 60/40, DEHYDRATION 04/2021 [facility] Other Summary Purpose Family History No Family [...] section and content) DATE CREATED AUTHOR 10/16/[address] [facility] DATE CREATED AUTHOR AUTHOR'S ORGANIZ ATION 11/12/2022 [facility] DATE CREATED AUTHOR AUTHOR'S ORGANIZ ATION 05/12/2023 [facility] FOR RECORDS PERTAINING TO PATIENTS WHO ARE [...] BE BASED ON THE PRIMARY CLINICAL RECORDS. [facility]. provides no warranty or guarantee of the accuracy or completeness of information in this document.
[2023-08-23 14:56] LABS: Basophils Percent Auto 0.5 % (0.2-2.0); Eosinophils Absolute Auto 0.2 10^3/uL (0.0-0.7); Eosinophils Percent Auto 2.2 % (0.9-7.0); Hematocrit 37.2 % (42.0-54.0); Hemoglobin 12.6 g/dL (14.0-18.0); Immature Granulocytes Abs Auto 0.03 10^3/uL (0.00-0.03); Immature Granulocytes Pct Auto 0.4 % (0.0-0.5); Lymphocytes Absolute Auto 3.4 10^3/uL (1.2-3.8); Lymphocytes Percent Auto 41.3 % (20.5-60.0); Mean Corpuscular HGB Conc 33.9 g/dL (29.9-35.2); Mean Corpuscular Hemoglobin 32.3 pg (25.9-34.0); Mean Corpuscular Volume 95.4 fL (80.0-94.0); Monocytes Absolute Auto 0.7 10^3/uL (0.3-0.8); Monocytes Percent Auto 8.4 % (1.7-12.0); Neutrophils Absolute Auto 3.9 10^3/uL (1.4-6.5); Neutrophils Percent Auto 47.2 % (43.0-75.0); Platelet Count 206 10^3/uL (150-450); Red Cell Distribution Width 13.8 % (11.0-15.0); White Blood Count 8.2 10^3/uL (4.0-11.0)
--- NOTE | 2023-08-23 15:34 | XR_ITS ---
The [address] [address] Patient Name: ABBEY IRVING MRN: [id number] date: 1955 Sex: M Assigned Patient Location: LAB Current Patient Location: Accession/Order Number: [id number] Exam Date: 08/23/2023 15:38 Report Date: 08/24/2023 07:19 At the request of: SHAIKH ALDAIR Procedure: XR thoracic spine 3V EXAMINATION: XR thoracic spine 3V HISTORY: chronic midline thoracic back pain M54.6 COMPARISON: No relevant comparison available. FINDINGS: BONES: Normal alignment with no acute fracture or spondylolisthesis. Moderate to severe diffuse degenerative spondylosis. Mild facet osteoarthropathy. DISC SPACES: Normal. No significant disc height narrowing, subluxation, or endplate abnormality. PARASPINOUS: Negative. No paraspinous abnormality is seen. OTHER: Negative. XR/XR thoracic spine 3V IMPRESSION: Moderate to severe degenerative spondylosis Electronically authenticated by: DANISHA CHANG Date: 08/24/2023 07:19
== END 2023-08-23 14:14 | disposition home or self-care (01) ==
LOC: LAB 14:15
PROVIDERS: PCP Internal Medicine; Visit Provider Internal Medicine
DX: K92.0 Hematemesis (principal); M54.6 Pain in thoracic spine; G89.29 Other chronic pain
CPT/HCPCS: 36415; 72072; 85025

== ENCOUNTER 2023-09-06 13:25 | Emergency (ER) | payer MEDICARE, SELFPAY ==
[2023-09-06 13:43] VITALS: BP 151/67; PULSE 70; TEMP 36.7; O2SAT 98; BMI 33.0
[2023-09-06 13:46] VITALS: O2SAT 95
[2023-09-06 13:47] VITALS: BP 151/67; O2SAT 99
[2023-09-06 13:50] VITALS: PULSE 66; O2SAT 100
--- NOTE | 2023-09-06 13:56 | XR_ITS ---
The [address] [address] Patient Name: ABBEY IRVING MRN: [id number] date: 1955 Sex: M Assigned Patient Location: ER Current Patient Location: ER Accession/Order Number: [id number] Exam Date: 09/06/2023 14:13 Report Date: 09/06/2023 14:33 At the request of: MAHAMED ESTEBAN Procedure: XR chest 1V EXAMINATION: XR chest 1V HISTORY: Left lower rib area pain COMPARISON: XR chest 07/18/2021, 12/26/2020 FINDINGS: LUNGS: Chronic opacity within lateral left lung base favoring a prominent pericardial fat pad. Lungs otherwise clear. VASCULATURE: No increased pulmonary vasculature. PLEURA: No pneumothorax, effusion, or pleural thickening. CARDIAC: No cardiomegaly or cardiac silhouette abnormality. MEDIASTINUM: No visible mass or adenopathy. BONES: No fracture or visible bone lesion. OTHER: Negative. XR/XR chest 1V IMPRESSION: 1. No acute cardiopulmonary process. Stable chest. Electronically authenticated by: LUCAS GOLDSTEIN Date: 09/06/2023 14:33
--- NOTE | 2023-09-06 13:56 | ECG_ITS ---
The [facility] Test Date: 2023-09-06 Pat Name: ABBEY IRVING Department: Room: - Gender: Male [employer]: : 1955 Requested By: SHAIKH ALDAIR Order Number: [id number] Reading MD: NONA MCELROY Measurements Intervals [place] Rate: 64 P: 62 NV: 226 QRS: 62 QRSD: 90 T: 70 QT: 406 QTc: 415 Interpretive Statements 1100 Sinus rhythm 2231 First degree AV block 3434 Septal myocardial infarction, age undetermined 9150 abnormal ECG Compared to ECG 08/12/2023 21:03:35 Myocardial infarct finding now present Sinus bradycardia no longer present Electronically Signed On 09-07-2023 19:16:10 EDT by NONA MCELROY
--- NOTE | 2023-09-06 13:59 | ED_ITS ---
HPI HPI - General Adult General Chief complaint: Back Pain/Injury Stated complaint: RIB PAIN Time Seen by Provider: 09/06/23 13:48 Source: patient Mode of arrival: walk-in Limitations: no limitations History of Present Illness HPI narrative: 68-year-old male presents for left lower anterior area rib pain that has had for 6 days. He states it started during the night when he was asleep. There was no trauma such as a fall. No fever or cough and no abdominal pain or vomiting. It is worse in certain positions. The pain is moderate and sharp. Related Data Home Medications ?Medication ?Instructions ?Recorded ?Confirmed albuterol sulfate 90 mcg/actuation 2 inh inhalation Q6H PRN shortness 04/02/23 08/12/23 aerosol inhaler of breath or wheezing atorvastatin 40 mg tablet 40 mg PO DAILY 04/02/23 08/12/23 budesonide-formoterol HFA 160 1 inh inhalation Q12H 04/02/23 08/12/23 mcg-4.5 mcg/actuation aerosol inhaler (Symbicort) furosemide 20 mg tablet 20 mg PO DAILY 04/02/23 08/12/23 losartan 50 mg tablet 50 mg PO DAILY 04/02/23 08/12/23 metoprolol tartrate 25 mg tablet 25 mg PO DAILY 04/02/23 08/12/23 tamsulosin 0.4 mg capsule 0.4 mg PO Q24H 04/02/23 08/12/23 vit C 250 mg-vit E 90 mg-zinc 40 1 tab PO QDAY 08/12/23 08/12/23 mg-copper 1 [id number]-rqykjo-[id number] capsule (PreserVision AREDS-2) Previous Rx's ?Medication ?Instructions ?Recorded omeprazole 40 mg capsule,delayed 40 mg PO DAILY #30 caps 08/13/23 release acetaminophen 300 mg-codeine 30 mg 1 tab PO Q6H PRN pain 5 days #20 09/06/23 tablet tabs Allergies Allergy/AdvReac Type Severity Reaction Status Date / Time No Known Drug Allergies Allergy Verified 08/12/23 21:08 Opioid HPI Opioid Management Most Recent Opioid Data: Last Pain Scale 6 09/06/23 14:05 Last MAR Pain Assessment 09/06/23 14:05 Last ORT Total Score 0 08/13/23 01:58 Last ORT Risk Category Low Risk 08/13/23 01:58 Review of Systems ROS Narrative A ten point review of systems is negative except as noted above. [facility] Medical History (Updated 09/06/23 @ 15:51 by Arvind Geiger MD) HLD (hyperlipidemia) ?E78.5 - Hyperlipidemia, unspecified (ICD-10) Hematemesis with nausea ?K92.0 - Hematemesis (ICD-10) Chronic back pain ?M54.9 - Dorsalgia, unspecified (ICD-10) ?G89.29 - Other chronic pain (ICD-10) Alcohol abuse, in remission ?F10.11 - Alcohol abuse, in remission (ICD-10) Type 2 diabetes mellitus ?E11.9 - Type 2 diabetes mellitus without complications (ICD-10) COPD (chronic obstructive pulmonary disease) ?J44.9 - Chronic obstructive pulmonary disease, unspecified (ICD-10) Sleep apnea ?G47.30 - Sleep apnea, unspecified (ICD-10) Hypertension ?I10 - Essential (primary) hypertension (ICD-10) 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) Hiatal hernia ?K44.9 - Diaphragmatic hernia without obstruction or gangrene (ICD-10) Inguinal hernia bilateral, non-recurrent ?K40.20 - Bilateral inguinal hernia, without obstruction or gangrene, not specified as recurrent (ICD-10) Influenza ?J11.1 - Influenza due to unidentified influenza virus with other respiratory manifestations (ICD-10) Giardia ?A07.1 - Giardiasis [lambliasis] (ICD-10) CMV (cytomegalovirus) ?B25.9 - Cytomegaloviral disease, unspecified (ICD-10) Rheumatic fever ?I00 - Rheumatic fever without heart involvement (ICD-10) Prostate cancer ?C61 - Malignant neoplasm of prostate (ICD-10) Surgical History (Updated 08/13/23 @ 07:20 by Katharine Timmons RN) [place] teeth extracted ?K08.409 - Partial loss of teeth, unspecified cause, unspecified class (ICD- 10) History of nephrectomy, left ?Z90.5 - Acquired absence of kidney (ICD-10) Family History (Updated 08/13/23 @ 01:56 by Katharine Timmons RN) Other Family history of cancer Family history of diabetes mellitus Social History (Updated 08/13/23 @ 01:57 by Katharine Timmons RN) Within the past year, how often did you have a drink containing alcohol: 2-4 times a month Within the past year, how many standard drinks containing alcohol did you have on a typical day: 3 or 4 Within the past year, how often did you have six or more drinks on one occasion: less than monthly Total score: 3 Score interpretation: A score of 4 or more indicates drinking is likely to affect patient's safety. Smoking status: Current every day smoker Non-prescribed substance use: denies use Highest level of school completed/degree received: Associate degree: occupational, technical, vocational program Do you think of yourself as: straight/heterosexual Gender Identity: male Exam Narrative Exam Narrative: Nurses note and vital signs reviewed and patient is not hypoxic. General: The patient appears well and in no apparent distress. Patient is resting comfortably on cart. Skin: Warm, dry, no pallor noted. There is no rash noted. Head: Normocephalic, atraumatic Eye: Normal conjunctiva, no drainage Ears, Nose, Mouth, and Throat: oral mucosa is moist. Nares patent. Cardiovascular: Regular Rate and Rhythm Respiratory: Patient is in no distress, no accessory muscle use, lungs are clear to auscultation, no wheezing, rales or rhonchi. Chest wall has no bruise rash or crepitus. Breath sounds are equal. Back: non-tender GI: Soft and nontender Musculoskeletal: The patient has no evidence of calf tenderness, no pitting edema, symmetrical pulses noted bilaterally Neurological: A&O, normal speech Psychiatric: Cooperative Constitutional Vital Signs, click to edit/add: Last Vital Signs Temp 98.1 F 09/06/23 13:43 Pulse 64 09/06/23 14:10 Resp 24 H 09/06/23 13:43 BP 148/73 H 09/06/23 14:00 Pulse Ox 100 09/06/23 14:10 O2 Del Method Room Air 09/06/23 13:43 Course Vital Signs Vital signs: Vital Signs Temperature 98.1 F 09/06/23 13:43 Pulse Rate 70 09/06/23 13:43 Respiratory Rate 24 H 09/06/23 13:43 Blood Pressure 151/67 H 09/06/23 13:43 Pulse Oximetry 98 09/06/23 13:43 Oxygen Delivery Method Room Air 09/06/23 13:43 Temperature 98.1 F 09/06/23 13:43 Pulse Rate 64 09/06/23 14:10 Respiratory Rate 24 H 09/06/23 13:43 Blood Pressure 148/73 H 09/06/23 14:00 Pulse Oximetry 100 09/06/23 14:10 Oxygen Delivery Method Room Air 09/06/23 13:43 Medical Decision Making MDM Narrative Medical decision making narrative: The patient's workup including troponin and D-dimer and chest x-ray are all negative. My clinical impression is that he has chest wall pain. At this point I do not suspect pulmonary embolism. There is no evidence of pneumothorax. Treatment diagnosis and follow-up were discussed with the patient. He has no rash and I doubt that the patient has herpes zoster at this point. Heart score is 3. Differential Diagnosis Differential Diagnosis: Pneumonia, pneumothorax, PE, chest wall pain Lab Data Lab results reviewed: Yes I reviewed the patient's lab results Labs: Lab Results 09/06/23 Range/Units 14:03 WBC 8.7 (4.0-11.0) 10^3/uL RBC 4.34 L (4.70-6.10) 10^6/uL Hgb 13.7 L (14.0-18.0) g/dL Hct 41.1 L (42.0-54.0) % MCV 94.7 H (80.0-94.0) fL MCH 31.6 (25.9-34.0) pg MCHC 33.3 (29.9-35.2) g/dL RDW 13.5 (11.0-15.0) % Plt Count 212 (150-450) 10^3/uL MPV 10.3 (9.5-13.5) fL Neut % (Auto) 58.2 (43.0-75.0) % Lymph % (Auto) 31.3 (20.5-60.0) % [place] % (Auto) 8.4 (1.7-12.0) % Eos % (Auto) 1.3 (0.9-7.0) % Baso % (Auto) 0.6 (0.2-2.0) % Neut # (Auto) 5.1 (1.4-6.5) 10^3/uL Lymph # (Auto) 2.7 (1.2-3.8) 10^3/uL [place] # (Auto) 0.7 (0.3-0.8) 10^3/uL Eos # (Auto) 0.1 (0.0-0.7) 10^3/uL Baso # (Auto) 0.1 (0.0-0.1) 10^3/uL Abs Immat Gran (auto) 0.02 (0.00-0.03) 10^3/uL Imm/Tot Granulo (auto) 0.2 (0.0-0.5) % D-Dimer 0.56 (<=0.59) mg/L FEU Sodium 143 (136-145) mmol/L Potassium 4.2 (3.5-5.1) mmol/L Chloride 105 (98-107) mmol/L Carbon Dioxide 28.3 (21.0-32.0) mmol/L Anion Gap 13.9 BUN 26.0 H (7.0-18.0) mg/dL Creatinine 1.33 H (0.70-1.30) mg/dL Est GFR ( Amer) >60 (>=60) Est GFR (Non-Af Amer) 54 L (>=60) BUN/Creatinine Ratio 19.5 Glucose 145 H (74-106) mg/dL Calcium 8.9 (8.5-10.1) mg/dL Troponin I High Sens 9.2 (4.0-76.1) pg/mL Imaging Data Chest x-ray: Radiologist's impression: ITS Impressions Chest X-Ray 09/06/23 13:56 IMPRESSION: 1. No acute cardiopulmonary process. Stable chest. Electronically authenticated by: LUCAS GOLDSTEIN Date: 09/06/2023 14:33 ECG Data Attestation: I personally reviewed and interpreted this ECG as follows: (EKG on my interpretation shows sinus rhythm without acute change and rate of 64.) Discharge Plan Discharge Stand Alone Forms: Portal Instructions Chief Complaint: Back Pain/Injury Clinical Impression: Chest wall pain Patient Disposition: Home, Self-Care Time of Disposition Decision: 15:51 Condition: Good Mode of Transportation: Private Vehicle Prescriptions / Home Meds: New acetaminophen-codeine 300-30 mg tablet 1 tab PO Q6H PRN (Reason: pain) 5 Days Qty: 20 0RF No Action albuterol sulfate 90 mcg/actuation HFA aerosol inhaler 2 inh INHALATION Q6H PRN (Reason: shortness of breath or wheezing) atorvastatin 40 mg tablet 40 mg PO DAILY budesonide-formoterol [Symbicort] 160-4.5 mcg/actuation HFA aerosol inhaler 1 inh INHALATION Q12H furosemide 20 mg tablet 20 mg PO DAILY losartan 50 mg tablet 50 mg PO DAILY metoprolol tartrate 25 mg tablet 25 mg PO DAILY tamsulosin 0.4 mg capsule 0.4 mg PO Q24H PreserVision AREDS-2 250-90-40-1 mg capsule 1 tab PO QDAY omeprazole 40 mg capsule,delayed release(DR/EC) 40 mg PO DAILY Qty: 30 0RF Print Language: Nepali Instructions: Chest Wall Pain (ED) Referrals: Shaikh Gagnon MD [Primary Care Provider] - 1 week
[2023-09-06 14:00] VITALS: BP 148/73; PULSE 64; O2SAT 99
[2023-09-06] MEDS: KETOROLAC TROMETHAMINE 30 MG/ML VIAL IVP (14:05)
[2023-09-06 14:10] VITALS: PULSE 64; O2SAT 100
[2023-09-06 14:22] LABS: Basophils Absolute Auto 0.1 10^3/uL (0.0-0.1); Basophils Percent Auto 0.6 % (0.2-2.0); Eosinophils Absolute Auto 0.1 10^3/uL (0.0-0.7); Eosinophils Percent Auto 1.3 % (0.9-7.0); Hematocrit 41.1 % (42.0-54.0); Hemoglobin 13.7 g/dL (14.0-18.0); Immature Granulocytes Abs Auto 0.02 10^3/uL (0.00-0.03); Immature Granulocytes Pct Auto 0.2 % (0.0-0.5); Lymphocytes Absolute Auto 2.7 10^3/uL (1.2-3.8); Lymphocytes Percent Auto 31.3 % (20.5-60.0); Mean Corpuscular HGB Conc 33.3 g/dL (29.9-35.2); Mean Corpuscular Hemoglobin 31.6 pg (25.9-34.0); Mean Corpuscular Volume 94.7 fL (80.0-94.0); Mean Platelet Volume 10.3 fL (9.5-13.5); Monocytes Absolute Auto 0.7 10^3/uL (0.3-0.8); Monocytes Percent Auto 8.4 % (1.7-12.0); Neutrophils Absolute Auto 5.1 10^3/uL (1.4-6.5); Neutrophils Percent Auto 58.2 % (43.0-75.0); Platelet Count 212 10^3/uL (150-450); Red Blood Count 4.34 10^6/uL (4.70-6.10); Red Cell Distribution Width 13.5 % (11.0-15.0); White Blood Count 8.7 10^3/uL (4.0-11.0)
[2023-09-06 14:30] LABS: D Dimer 0.56 mg/L FEU (<=0.59)
[2023-09-06 14:35] LABS: Anion Gap 13.9; BUN Creatinine Ratio 19.5; Calcium 8.9 mg/dL (8.5-10.1); Carbon Dioxide 28.3 mmol/L (21.0-32.0); Chloride 105 mmol/L (98-107); Estimated GFR (African America >60 (>=60); Estimated GFR (Non-African Ame 54 (>=60); Glucose 145 mg/dL (74-106); Potassium 4.2 mmol/L (3.5-5.1); Sodium 143 mmol/L (136-145); Troponin I High Sensitivity 9.2 pg/mL (4.0-76.1)
== END 2023-09-06 16:07 | disposition home or self-care (01) ==
PROVIDERS: Emergency Provider Emergency Medicine; PCP Internal Medicine
DX: R07.89 Other chest pain (principal); E78.5 Hyperlipidemia, unspecified; E11.9 Type 2 diabetes mellitus without complications; J44.9 Chronic obstructive pulmonary disease, unspecified; G47.30 Sleep apnea, unspecified; K44.9 Diaphragmatic hernia without obstruction or gangrene; F17.210 Nicotine dependence, cigarettes, uncomplicated; Z85.46 Personal history of malignant neoplasm of prostate; F10.11 Alcohol abuse, in remission; Z79.899 Other long term (current) drug therapy; Z90.5 Acquired absence of kidney
CPT/HCPCS: 36415; 71045; 80048; 84484; 85025; 85378; 93005; 96374; 99285

== ENCOUNTER 2023-09-30 08:41 | Outpatient (OUT) | payer MEDICARE, SELFPAY ==
--- OUTSIDE RECORDS SUMMARY | 2023-09-30 08:50 | XMS_ITS | CCD ---
Author Organization [facility] Care Team Providers Care Channel Manager Name Role Phone Jose Victoria Unavailable Carlos HOLLINS Attending Unavailable FAWWAD, PATEL Primary Care Unavailable Carlos HOLLINS Attending Unavailable FAWWAD, PATEL Primary Care Unavailable Carlos HOLLINS Attending Unavailable FAWWAD, PATEL Primary Care Unavailable COOKDR CARLOS Consulting Unavailable COOK, PEGGY Attending Unavailable FAWWAD, PATEL H Primary Care Unavailable GURVINDER, PEGGY Admitting Unavailable SAMSA ., RUKHSAAN Admitting Unavailable DR LUCAS GOLDSTEIN Consulting Unavailable [...] DUPONT Admitting Unavailable SHAIKH QUINTEROS Attending Unavailable SHAIKH QUINTEROS Attending Unavailable SHAIKH QUINTEROS Attending Unavailable Allergies Allergy Classification Reported Allergen(s) Allergy Type Date of Onset Reaction(s) Facility (1 source) No Known Medication Allergies; Translations: [No Known Medication Allergies] Propensity to adverse reactions (disorder) [facility] Repository Medications Current Medications Medication Drug Class(es) Dates Sig (Normalized) Sig (Original) [id number] 200 actuat albuterol 0.09 mg/actuat metered dose [...] 04-12-2022 Episodic Other aftercare (1 source) Other halfway (current) drug therapy; Translations: [OTH SNF CURRENT [...] Test Name Value Interpretation Reference Range Facil itben Patient Educationon 10-16-19 Patient Education Oncology Cancer [...] if anything looks unusual. Men with a xeonzv-meje-pdqviw risk for skin cancer may want to see a living specialist (locker attendant) for an annual body check. What are the benefits of screening? Cancer screening is done to look for cancer in the very early stages, before it spreads and becomes harder to treat and before you would start to notice symptoms. Finding cancer early improves the chances of successful treatment. It ma (more content not included)... Normal [facility] Screenson 10-15-2022 Screens [id number] 1.00CD:127 Normal [facility] Urology Office/Clinic Noteon 10-15-2022 Urology Office/Clinic Note [...] MD, URL [address] [place] [id number]- Additional Instructions: 1 yr PSA Patient Education [...] (more content not included)... Normal [facility] Comment on above: Result Comment: Elec tronically Signed By: Carlos HOLLINS MD\.br\Date and Time Signed: 10/15/22 10:11 EDT\.br\Electronically Co-Signed By: Laurel Bradley\.br\Date and Time Co-Signed: 10/15/22 10:08 EDT Lab Reportson 10-13-2022 Lab Reports [id number] .[id number]:127 Normal [facility] CT CHEST WO CONon 10-11-2022 CT CHEST [...] LUCAS GOLDSTEIN Date: 2022-10-11 15:31 Normal [facility] CBC AUTO DIFFon 08-23-2022 BASO # 0.0 103/ul Normal 0.0-0.1 [facility] Comment on above: Performed By: #### C BC #### [facility] [address] [place] [address] Dr. Jesus White Basophils/100 WBC (Bld) 0.5 % Normal 0.2-2.0 [facility] Comment on above: Performed By: #### C BC #### [facility] [address] [address] [address] Jesus White EO # 0.2 103/ul Normal 0.0-0.7 [facility] Comment on above: Performed By: #### C BC #### [facility] [address] [place] [address] Dr. Jesus White Eosinophils/100 WBC (Bld) 2.2 % Normal 0.9-7.0 [facility] Comment on above: Performed By: #### C BC #### [facility] [address] [place] [address] Dr. Jesus White Erythrocyte distribution width (RBC) [Ratio] 13.3 % Normal 11.0-15.0 [facility] Comment on above: Performed By: #### C BC #### [facility] [address] [place] [address] Dr. Jesus White Hematocrit (Bld) [Volume fraction] 43.0 % Normal 42.0-54.0 [facility] Comment on above: Performed By: #### C BC #### [facility] [address] [place] [address] Dr. Jesus White Hemoglobin (Bld) [Mass/Vol] 14.4 g/dL Normal 14.0-18.0 [facility] Comment on above: Performed By: #### C BC #### [facility] [address] [place] [address] Dr. Jesus White IG # 0.02 10e3/ul Normal 0.00-0.03 [facility] Comment on above: Performed By: #### C BC #### [facility] [address] [place] [address] Dr. Jesus White IG % 0.2 % Normal 0.0-0.5 [facility] Comment on above: Performed By: #### C BC #### [facility] [address] [place] [address] Dr. Jesus White LYMPH # 3.0 103/ul Normal 1.2-3.8 [facility] Comment on above: Performed By: #### C BC #### [facility] [address] [place] [address] Dr. Jesus White Lymphocytes/100 WBC (Bld) 35.8 % Normal 20.5-60.0 [facility] Comment on above: Performed By: #### C BC #### [facility] [address] [place] [address] Dr. Jesus White MANUAL DIFF REQ NO Normal [facility] Comment on above: Performed By: #### C BC #### [facility] [address] [place] [address] Dr. Jesus White MCH (RBC) [Entitic mass] 30.6 pg Normal 25.9-34.0 [facility] Comment on above: Performed By: #### C BC #### [facility] [address] [place] [address] Dr. Jesus White MCHC (RBC) [Mass/Vol] 33.5 g/dL Normal 29.9-35.2 [facility] Comment on above: Performed By: #### C BC #### [facility] [address] [place] [address] Dr. Jesus White MCV (RBC) [Entitic vol] 91.5 fL Normal 80.0-94.0 [facility] Comment on above: Performed By: #### C BC #### [facility] [address] [place] [address] Dr. Jesus White MONO # 0.8 103/ul Normal 0.3-0.8 [facility] Comment on above: Performed By: #### C BC #### [facility] [address] [place] [address] Dr. Jesus White Monocytes/100 WBC (Bld) 9.1 % Normal 1.7-12.0 [facility] Comment on above: Performed By: #### C BC #### [facility] [address] [place] [address] Dr. Jesus White NEUT # 4.4 103/ul Normal 1.4-6.5 [facility] Comment on above: Performed By: #### C BC #### [facility] [address] [place] [address] Dr. Jesus White Neutrophils/100 WBC (Bld) 52.2 % Normal 43.0-75.0 [facility] Comment on above: Performed By: #### C BC #### [facility] [address] [place] [address] Dr. Jesus White Platelet mean volume (Bld) [Entitic vol] 9.8 fL Normal 9.5-13.5 [facility] Comment on above: Performed By: #### C BC #### [facility] [address] [place] [address] Dr. Jesus White PLT 236 103/ul Normal 150-450 [facility] Comment on above: Performed By: #### C BC #### [facility] [address] [place] [address] Dr. Jesus White RBC 4.70 106/ul Normal 4.70-6.10 [facility] Comment on above: Performed By: #### C BC #### [facility] [address] [place] [address] Dr. Jesus White WBC 8.4 103/ul Normal 4.0-11.0 [facility] Comment on above: Performed By: #### C BC #### [facility] [address] [place] [address] Dr. Jesus White LIPID PROFILEon 08-23-2022 CHOL-HDL RATIO NORM SEE BELOW Normal [facility] Comment on above: Result Comment: 3.3 - 4.4 LOW RISK 4.4 - 7.1 AVERAGE RISK 7.1 - 11.0 MODERATE RISK >11.0 HIGH RISK Performed By: #### C MP, LIPID #### [facility] [address] [place] [address] Dr. Jesus White Cholesterol [Mass/Vol] 121 mg/dL Normal <=200 [facility] Comment on above: Performed By: #### C MP, LIPID #### [facility] [address] [place] [address] Dr. Jesus White Cholesterol in HDL [Mass/Vol] 37 mg/dL Critically low 40-60 [facility] Comment on above: Performed By: #### C MP, LIPID #### [facility] [address] [place] [address] Dr. Jesus White Cholesterol in LDL [Mass/Vol] 59.6 mg/dL Normal [facility] Comment on above: Performed By: #### C MP, LIPID #### [facility] [address] [address] [address] Jesus White Cholesterol.total/C holesterol in HDL [Mass ratio] 3.3 {ratio} Normal [facility] Comment on above: Performed By: #### C MP, LIPID #### [facility] [address] [address] [address] Jesus White HDL NORMAL > or = 60 mg/dl - LO W CARDIOVASCULAR RISK <40 mg/dl - HIGH CARDIOVASCULAR RISK Normal [facility] Comment on above: Performed By: #### C MP, LIPID #### [facility] [address] [address] [address] Jesus White LDL CALC NORMAL SEE BELOW Normal [place] Comment on above: Result Comment: <100 mg/dl OPTIMAL 100 - 129 mg/dl NEAR OR ABOVE OPTIMAL 130 - 159 mg/dl BORDERLINE HIGH 160 - 189 mg/dl HIGH >190 mg/dl VERY HIGH Performed By: #### C MP, LIPID #### [facility] [address] [address] [address] Jesus White Triglyceride [Mass/Vol] 122 mg/dL Normal <=150 [facility] Comment on above: Performed By: #### C MP, LIPID #### [facility] [address] [place] [address] Dr. Jesus White VLDL CALC 24.4 mg/dL Normal [facility] Comment on above: Performed By: #### C MP, LIPID #### [facility] [address] [place] [address] Dr. Jesus White PROF 14(COMP METB)on 023 Albumin [Mass/Vol] 3.8 g/dL Normal 3.4-5.0 [facility] Comment on above: Performed By: #### C MP, LIPID #### [facility] [address] [place] [address] Dr. Jesus White Albumin/Globulin [Mass ratio] 1.1 {ratio} Normal [facility] Comment on above: Performed By: #### C MP, LIPID #### [facility] [address] [address] [address] Jesus White ALP [Catalytic activity/Vol] 46 U/L Normal 46-116 [facility] Comment on above: Performed By: #### C MP, LIPID #### [facility] [address] [place] [address] Dr. Jesus White ALT [Catalytic activity/Vol] 37 U/L Normal 16-63 [facility] Comment on above: Performed By: #### C MP, LIPID #### [facility] [address] [address] [address] Jesus White Anion gap [Moles/Vol] 11.3 mmol/L Normal [facility] Comment on above: Performed By: #### C MP, LIPID #### [facility] [address] [place] [address] Dr. Jesus White AST [Catalytic activity/Vol] 28 U/L Normal 15-37 [facility] Comment on above: Performed By: #### C MP, LIPID #### [facility] [address] [place] [address] Dr. Jesus White Bilirubin [Mass/Vol] 0.5 mg/dL Normal 0.2-1.0 [facility] Comment on above: Performed By: #### C MP, LIPID #### [facility] [address] [place] [address] Dr. Jesus White Calcium [Mass/Vol] 9.5 mg/dL Normal 8.5-10.1 [facility] Comment on above: Performed By: #### C MP, LIPID #### [facility] [address] [place] [address] Dr. Jesus White Chloride [Moles/Vol] 104 mmol/L Normal 98-107 [facility] Comment on above: Performed By: #### C MP, LIPID #### [facility] [address] [address] [address] Jesus White CO2 [Moles/Vol] 28.9 mmol/L Normal 21.0-32.0 [facility] Comment on above: Performed By: #### C MP, LIPID #### [facility] [address] [place] [address] Dr. Jesus White Creatinine [Mass/Vol] 0.99 mg/dL Normal 0.70-1.30 [facility] Comment on above: Performed By: #### C MP, LIPID #### [facility] [address] [address] [address] Jesus White EGFR-AF NOR[place]GIAN >60 Normal >=60 [facility] Comment on above: Performed By: #### C MP, LIPID #### [facility] [address] [address] [address] Jesus White EGFR-NON AF [place]GIAN >60 Normal >=60 [facility] Comment on above: Performed By: #### C MP, LIPID #### [facility] [address] [address] [address] Jesus White Globulin (S) [Mass/Vol] 3.6 g/dL Normal [facility] Comment on above: Performed By: #### C MP, LIPID #### [facility] [address] [address] [address] Jesus White Glucose [Mass/Vol] 92 mg/dL Normal 74-106 [facility] Comment on above: Performed By: #### C MP, LIPID #### [facility] [address] [address] [address] Jesus White Potassium [Moles/Vol] 4.2 mmol/L Normal 3.5-5.1 [facility] Comment on above: Performed By: #### C MP, LIPID #### [facility] [address] [address] [address] Jesus White Protein [Mass/Vol] 7.4 g/dL Normal 6.4-8.2 [facility] Comment on above: Performed By: #### C MP, LIPID #### [facility] [address] [address] [address] Jesus White Sodium [Moles/Vol] 140 mmol/L Normal 136-145 [facility] Comment on above: Performed By: #### C MP, LIPID #### [facility] [address] [address] [address] Jesus White Urea nitrogen [Mass/Vol] 12.0 mg/dL Normal 7.0-18.0 [facility] Comment on above: Performed By: #### C MP, LIPID #### [facility] [address] [place], [place] [address] Dr[address] Jesus White Urea nitrogen/Creatinine [Mass ratio] 12.1 mg/mg Normal [facility] Comment on above: Performed By: #### C MP, LIPID #### [facility] [address] [place], [place] [address] LUNG CANCER SCREENINGon [...] LUCAS GOLDSTEIN Date: 2022-07-05 12:53 Normal [facility] BLOOD GASES BTYon 04-08-2022 02 MODE ROOM AIR Normal [facility] Comment on above: Performed By: #### A BG ####[facility] [address] [place] [address]Dr. Jesus White ALLENS TEST Positive Normal [facility] Comment on above: Performed By: #### A BG ####[facility] [address] [place] [address]Dr. Jesus White Base excess Calc (Bld) [Moles/Vol] -0.4000 mmol/L Normal -2.0-2.0 [facility] Comment on above: Performed By: #### A BG ####[facility] [address] [place] [address]Dr. Jesus White BIPAP PRESSURE Normal [facility] Comment on above: Performed By: #### A BG ####[facility] [address] [place], [place] [address]Dr. Jesus White CPAP Normal [facility] Comment on above: Performed By: #### A BG ####[facility] [address] [place], [place] [address]Dr. Jesus White FIO2 Normal [facility] Comment on above: Performed By: #### A BG ####[facility] [address] [place], [place] [address]Dr. Jesus White HCO3 (Bld) [Moles/Vol] 24.7 mmol/L Normal 22.0-26.0 [facility] Comment on above: Performed By: #### A BG ####[facility] [address] [place], [place] [address]Dr. Jesus White LPM Normal [facility] Comment on above: Performed By: #### A BG ####[facility] [address] [place], [place] [address]Dr. Jesus White MINUTE VOLUME Normal [facility] Comment on above: Performed By: #### A BG ####[facility] [address] [place] [address]Dr. Jesus White Oxygen (Bld) [Partial pressure] 75.3 mm[Hg] Critically low 80.0-100.0 [facility] Comment on above: Performed By: #### A BG ####[facility] [address] [place] [address]Dr. Jesus White Oxygen saturation in Blood 94.7 % Critically low 95.0-100.0 [facility] Comment on above: Performed By: #### A BG ####[facility] [address] [place] [address]Dr. Jesus White PCO2 42.0 mmHg Normal 35.0-45.0 [facility] Comment on above: Performed By: #### A BG ####[facility] [address] [place] [address]Dr. Jesus White PEEP [facility] Comment on above: Performed By: #### A BG ####[facility] [address] [place], [place] [address]Dr. Jesus White pH (Bld) 7.379 [pH] Normal 7.350-7.450 [facility] Comment on above: Performed By: #### A BG ####[facility] [address] [place], [place] [address]Dr. Jesus White PIP [facility] Comment on above: Performed By: #### A BG ####[facility] [address] [place], [place] [address]Dr. Jesus White PS [facility] Comment on above: Performed By: #### A BG ####[facility] [address] [place] [address]Dr. Jesus White PUNCTURE SITE LR [place] [facility] Comment on above: Performed By: #### A BG ####[facility] [address] [place], [place] [address]Dr. Jesus White RATE [facility] Comment on above: Performed By: #### A BG ####[facility] [address] [place], [place] [address]Dr. Jesus White VENT MODE [facility] Comment on above: Performed By: #### A BG ####[facility] [address] [place] [address]Dr. Jesus White VT [facility] Comment on above: Performed By: #### A BG ####[facility] [address] [place], [place] [address]NlDr. Jesus White CBC AUTO DIFFon 04-08-2022 BASO # 0.1 103/ul Normal 0.0-0.1 [facility] Comment on above: Performed By: #### C BC #### [facility] [address] [address] [address] Jesus White Basophils/100 WBC (Bld) 0.6 % Normal 0.2-2.0 [facility] Comment on above: Performed By: #### C BC #### [facility] [address] [address] [address] Jesus White EO # 0.2 103/ul Normal 0.0-0.7 [facility] Comment on above: Performed By: #### C BC #### [facility] [address] [address] [address] Jesus White Eosinophils/100 WBC (Bld) 1.5 % Normal 0.9-7.0 [facility] Comment on above: Performed By: #### C BC #### [facility] [address] [address] [address] Jesus White Erythrocyte distribution width (RBC) [Ratio] 13.2 % Normal 11.0-15.0 [facility] Comment on above: Performed By: #### C BC #### [facility] [address] [address] [address] Jesus Wihte Hematocrit (Bld) [Volume fraction] 41.7 % Critically low 42.0-54.0 [facility] Comment on above: Performed By: #### C BC #### [facility] [address] [address] [address] Jesus White Hemoglobin (Bld) [Mass/Vol] 14.3 g/dL Normal 14.0-18.0 [facility] Comment on above: Performed By: #### C BC #### [facility] [address] [address] [address] Jesus White IG # 0.03 10e3/ul Normal 0.00-0.03 [facility] Comment on above: Performed By: #### C BC #### [facility] [address] [place] [address] Dr. Jesus White IG % 0.3 % Normal 0.0-0.5 [facility] Comment on above: Performed By: #### C BC #### [facility] [address] [place] [address] Dr. Jesus White LYMPH # 5.6 103/ul Critically high 1.2-3.8 [facility] Comment on above: Performed By: #### C BC #### [facility] [address] [place] [address] Dr. Jesus White Lymphocytes/100 WBC (Bld) 57.0 % Normal 20.5-60.0 [facility] Comment on above: Performed By: #### C BC #### [facility] [address] [place] [address] Dr. Jesus White MANUAL DIFF REQ NO Normal [place] Comment on above: Performed By: #### C BC #### [facility] [address] [place] [address] Dr. Jesus White MCH (RBC) [Entitic mass] 31.4 pg Normal 25.9-34.0 [facility] Comment on above: Performed By: #### C BC #### [facility] [address] [place] [address] Dr. Jesus White MCHC (RBC) [Mass/Vol] 34.3 g/dL Normal 29.9-35.2 [facility] Comment on above: Performed By: #### C BC #### [facility] [address] [place] [address] Dr. Jesus White MCV (RBC) [Entitic vol] 91.6 fL Normal 80.0-94.0 [facility] Comment on above: Performed By: #### C BC #### [facility] [address] [place] [address] Dr. Jesus White MONO # 0.5 103/ul Normal 0.3-0.8 [facility] Comment on above: Performed By: #### C BC #### [facility] [address] [place] [address] Dr. Jesus White Monocytes/100 WBC (Bld) 5.1 % Normal 1.7-12.0 [facility] Comment on above: Performed By: #### C BC #### [facility] [address] [place] [address] Dr. Jesus White NEUT # 3.5 103/ul Normal 1.4-6.5 [facility] Comment on above: Performed By: #### C BC #### [facility] [address] [place] [address] Dr. Jesus White Neutrophils/100 WBC (Bld) 35.5 % Critically low 43.0-75.0 [facility] Comment on above: Performed By: #### C BC #### [facility] [address] [place] [address] Dr. Jesus White Platelet mean volume (Bld) [Entitic vol] 9.5 fL Normal 9.5-13.5 [facility] Comment on above: Performed By: #### C BC #### [facility] [address] [place] [address] Dr. Jesus White PLT 222 103/ul Normal 150-450 [facility] Comment on above: Performed By: #### C BC #### [facility] [address] [place] [address] Dr. Jesus White RBC 4.55 106/ul Critically low 4.70-6.10 [facility] Comment on above: Performed By: #### C BC #### [facility] [address] [place] [address] Dr. Jesus White WBC 9.8 103/ul Normal 4.0-11.0 [facility] Comment on above: Performed By: #### C BC #### [facility] [address] [place] [address] STROKE HEAD WOon [...] ERNA LEON Date: 2022-04-08 18:50 Normal [facility] Covid-19 PCR (CVDTB)on SARS-CoV-2 (COVID-19) RNA PAUL+probe Ql (Unsp spec) Not detected Normal NOT DETECTED [facility] Comment on above: Result Comment: When [...] for this test is supported by the [place] of Health and Human Service's declaration that [...] used). Performed By: #### C VDTBH #### [facility] [address] [place], [place] [address] Dr. Jesus White ETHANOL (BLD ALC)on 04-08-20 22 ALC NOTE NOTE: 80 mg/dl is th e legal limit for a blood alcohol level Normal [facility] Comment on above: Performed By: #### E TH ####[facility] [address] [place], [place] [address]VaDr. Jesus White Ethanol [Mass/Vol] 344 mg/dL Normal [facility] Comment on above: Performed By: #### E TH ####[facility] [address] [place], [place] [address]BpDr. Jesus White PROF 14(COMP METB)on 022 Albumin [Mass/Vol] 3.5 g/dL Normal 3.4-5.0 [facility] Comment on above: Performed By: #### C JORGE HSTROPN #### [facility] [address] [address] [address] Jesus White Albumin/Globulin [Mass ratio] 1.0 {ratio} Normal [facility] Comment on above: Performed By: #### C JORGE HSTROPN #### [facility] [address] [address] [address] Jesus hWite ALP [Catalytic activity/Vol] 41 U/L Critically low 46-116 [facility] Comment on above: Performed By: #### C JORGE HSTROPN #### [facility] [address] [address] [address] Jesus White ALT [Catalytic activity/Vol] 28 U/L Normal 16-63 [facility] Comment on above: Performed By: #### C JORGE HSTROPN #### [facility] [address] [address] [address] Jesus White Anion gap [Moles/Vol] 12.1 mmol/L Normal [facility] Comment on above: Performed By: #### C JORGE HSTROPN #### [facility] [address] [address] [address] Jesus White AST [Catalytic activity/Vol] 19 U/L Normal 15-37 [facility] Comment on above: Performed By: #### C JORGE HSTROPN #### [facility] [address] [address] [address] Jesus White Bilirubin [Mass/Vol] 0.3 mg/dL Normal 0.2-1.0 [facility] Comment on above: Performed By: #### C JORGE HSTROPN #### [facility] [address] [address] [address] Jesus White Calcium [Mass/Vol] 8.8 mg/dL Normal 8.5-10.1 [facility] Comment on above: Performed By: #### C MP, HSTROPN #### [facility] [address] [place] [address] Dr. Jesus White Chloride [Moles/Vol] 105 mmol/L Normal 98-107 [facility] Comment on above: Performed By: #### C MP, HSTROPN #### [facility] [address] [place] [address] Dr. Jesus White CO2 [Moles/Vol] 24.8 mmol/L Normal 21.0-32.0 [facility] Comment on above: Performed By: #### C MP, HSTROPN #### [facility] [address] [place] [address] Dr. Jesus White Creatinine [Mass/Vol] 1.53 mg/dL Critically high 0.70-1.30 [facility] Comment on above: Performed By: #### C MP, HSTROPN #### [facility] [address] [place] [address] Dr. Jesus White EGFR-AF NORWEGIAN 55 mL/min/1.73m2 Critically low >=60 [facility] Comment on above: Result Comment: Prev iously reported as: (blank) On 04/08/2022 19:15 By [facility] Performed By: #### C MP, HSTROPN #### [facility] [address] [place] [address] Dr. Jesus White EGFR-NON AF NORWEGIAN 46 mL/min/1.73m2 Critically low >=60 [facility] Comment on above: Result Comment: Prev iously reported as: (blank) On 04/08/2022 19:15 By [facility] Performed By: #### C MP, HSTROPN #### [facility] [address] [place] [address] Dr. Jesus White Globulin (S) [Mass/Vol] 3.5 g/dL Normal [facility] Comment on above: Performed By: #### C MP, HSTROPN #### [facility] [address] [address] [address] Jesus White Glucose [Mass/Vol] 116 mg/dL Critically high 74-106 [facility] Comment on above: Performed By: #### C MP, HSTROPN #### [facility] [address] [address] [address] Jesus White Potassium [Moles/Vol] 3.9 mmol/L Normal 3.5-5.1 [facility] Comment on above: Performed By: #### C MP, HSTROPN #### [facility] [address] [address] [address] Jesus White Protein [Mass/Vol] 7.0 g/dL Normal 6.4-8.2 [facility] Comment on above: Performed By: #### C MP, HSTROPN #### [facility] [address] [address] [address] Jesus White Sodium [Moles/Vol] 138 mmol/L Normal 136-145 [facility] Comment on above: Performed By: #### C MP, HSTROPN #### [facility] [address] [address] [address] Jesus White Urea nitrogen [Mass/Vol] 17.0 mg/dL Normal 7.0-18.0 [facility] Comment on above: Performed By: #### C MP, HSTROPN #### [facility] [address] [address] [address] Jesus White Urea nitrogen/Creatinine [Mass ratio] 11.1 mg/mg Normal [facility] Comment on above: Performed By: #### C MP, HSTROPN #### [facility] [address] [address] [address] Jesus White PROTIMEon 04-08-2022 INR Coag (PPP) [Relative time] 1.00 {INR} Normal [facility] Comment on above: Performed By: #### P TT, PT ####[facility] [address] [address]Dr. Jesus White INR GUIDELINES SEE BELOW Normal [facility] Comment on above: Result Comment: JULIET RED INR: 2.0 - 3.0 CONDITIONS NOT LISTED BELOW 2.5 - 3.5 FOR PROSTHETIC HEART VALVE REPLACEMENT 2.5 - 3.5 RECURRENT THROMBOSIS Performed By: #### P TT, PT ####[facility] [address] [id number] White PT Coag (PPP) [Time] 10.8 s Normal 9.0-11.6 [facility] Comment on above: Performed By: #### P TT, PT ####[facility] [address] [id number]. Jesus White PTTon 04-08-2022 aPTT Coag (Bld) [Time] 24.8 s Normal 22.3-36.2 [facility] Comment on above: Performed By: #### P TT, PT ####[facility] [address] [address]Dr. Jesus White TROPONIN, HIGH SENSITIVITYon 04-08-2022 HSTROP 16.7 pg/mL Normal 4.0-76.1 [facility] Comment on above: Result Comment: CUT- OFF POINTS HAVE BEEN ESTABLISHED BASED ON THE FOURTH UNIVERSAL DEFINITIONS OF MYOCARDIAL INFARCTION. THE UPPER REFERENCE LIMIT (URL) OF TROPONIN, DEFINED THE 99TH PERCENTILE OF cTnI DISTRIBUTION IN A REFERENCE POPULATION, HAS BEEN CONFIRMED THE DECISION THRESHOLD FOR AL DIAGNOSIS. Performed By: #### C MP, HSTROPN #### [facility] [address] [place] [address] Dr. Jesus White PROF CHEM 8 (BAS METB)on Anion gap [Moles/Vol] 13.3 mmol/L Normal [facility] Comment on above: Performed By: #### B MP #### [facility] [address] [place] [address] Dr. Jesus White Calcium [Mass/Vol] 9.7 mg/dL Normal 8.5-10.1 The [facility] Comment on above: Performed By: #### B MP #### [facility] [address] [place] [address] Dr. Jesus White Chloride [Moles/Vol] 103 mmol/L Normal 98-107 [facility] Comment on above: Performed By: #### B MP #### [facility] [address] [address] [address] Jesus White CO2 [Moles/Vol] 28.4 mmol/L Normal 21.0-32.0 [facility] Comment on above: Performed By: #### B MP #### [facility] [address] [address] [address] Jesus White Creatinine [Mass/Vol] 1.21 mg/dL Normal 0.70-1.30 [facility] Comment on above: Performed By: #### B MP #### [facility] [address] [address] [address] Jesus White EGFR-AF NORWEGIAN >60 Normal >=60 [facility] Comment on above: Performed By: #### B MP #### [facility] [address] [address] [address] Jesus White EGFR-NON AF NORWEGIAN 60 mL/min/1.73m2 Normal >=60 [facility] Comment on above: Performed By: #### B MP #### [facility] [address] [address] [address] Jesus White Glucose [Mass/Vol] 95 mg/dL Normal 74-106 The [facility] Comment on above: Performed By: #### B MP #### [facility] [address] [address] [address] Jesus White Potassium [Moles/Vol] 3.7 mmol/L Normal 3.5-5.1 [facility] Comment on above: Performed By: #### B MP #### [facility] [address] [address] [address] Jesus White Sodium [Moles/Vol] 141 mmol/L Normal 136-145 The [facility] Comment on above: Performed By: #### B MP #### [facility] [address] [place] [address] Dr. Jesus White Urea nitrogen [Mass/Vol] 12.0 mg/dL Normal 7.0-18.0 [facility] Comment on above: Performed By: #### B MP #### [facility] [address] [address] [address] Jesus White Urea nitrogen/Creatinine [Mass ratio] 9.9 mg/mg Normal [facility] Comment on above: Performed By: #### B MP #### [facility] [address] [address] [address] Jesus White ER URINE PROFILEon 2 Bilirubin Ql (U) Negative Normal NEGATIVE [facility] Comment on above: Performed By: #### Júnior BARNES UMICRO ####[facility] [address] [address]Dr. Jesus White Clarity (U) CLEAR Normal CLEAR [facility] Comment on above: Performed By: #### Júnior BARNES UMICRO ####[facility] [address] [address]Dr. Jesus White Color (U) LT. YELLOW Normal YELLOW [facility] Comment on above: Performed By: #### Júnior BARNES UMICRO ####[facility] [address] [address]Dr. Jesus MONTEJO A micrscopic examination will be performed if indicated. Normal [facility] Comment on above: Performed By: #### Júnior BARNES UMICRO ####[facility] [address] [address]Dr. Jesus White Glucose Ql (U) Negative Normal NEGATIVE [facility] Comment on above: Performed By: #### Júnior BARNES UMICRO ####[facility] [address] [address]Dr. Jesus White Hemoglobin Ql (U) Negative Normal NEGATIVE [facility] Comment on above: Performed By: #### Júnior BARNES UMICRO ####[facility] [address] [address]Dr. Jesus White Ketones Ql (U) Negative Normal NEGATIVE [facility] Comment on above: Performed By: #### Júnior BARNES UMICRO ####[facility] [address] [address]Dr. Jesus White LEUKOCYTES Negative Normal NEGATIVE [facility] Comment on above: Performed By: #### CALEB GOULD ####[facility] [address] [address]Dr. Jesus White Nitrite Ql (U) Negative Normal NEGATIVE [facility] Comment on above: Performed By: #### CALEB GOULD ####[facility] [address] [address]Dr. Jesus White pH (U) 6.0 [pH] Normal 5-9 [facility] Comment on above: Performed By: #### CALEB GOULD ####[facility] [address] [address]Dr. Jesus White SPEC GRAVITY <=1.005 Abnormal 1.005-<=1.025 [facility] Comment on above: Performed By: #### CALEB GOULD ####[facility] [address] [place], [place] [address]Dr. Jesus Christopher UA PROTEIN Negative Normal NEGATIVE/ TRACE [facility] Comment on above: Performed By: #### CALEB GOULD ####[facility] [address] [place], [place] [address]Dr. Jesus Christopher UR MICRO IND INDICATED Normal [facility] Comment on above: Performed By: #### CALEB GOULD ####[facility] [address] [place], [place] [address]Dr. Jesus Christopher Urobilinogen Qn (U) 0.2 {Dash'U}/dL Normal 0.2 - 1. 0 [facility] Comment on above: Performed By: #### CALEB GOULD ####[facility] [address] [address]Dr. Jesus Christopher URINE MICROSCOPIC ONLYon BACTERIA NONE SEEN Normal NONE SEEN [facility] Comment on above: Performed By: #### CALEB GOULD ####[facility] [address] [address]Dr. Jesus White Bacteria identified Cx Nom (U) NOT INDICATED Normal [facility] Comment on above: Performed By: #### CALEB GOULD ####[facility] [address] [address]Dr. Jesus White CAST NONE SEEN Normal NONE SEEN [facility] Comment on above: Performed By: #### VALERIO GOULDRO ####[facility] [address] [place], [place] [address]Dr. Jesus White Crystals LM Nom (Urine sed) NONE SEEN Normal NONE SEEN [facility] Comment on above: Performed By: #### VALERIO GOULDRO ####[facility] [address] [place], [place] [address]Dr. Jesus White Epithelial cells LM Ql (Urine sed) RARE Normal NONE SEEN /RARE [facility] Comment on above: Performed By: #### VALERIO GOULDRO ####[facility] [address] [place], [place] [address]Dr. Jesus White MUCOUS NONE SEEN Normal NONE SEEN [facility] Comment on above: Performed By: #### VALERIO GOULDRO ####[facility] [address] [place], [place] [address]Dr. Jesus White RBC NONE SEEN Abnormal 0-2 [facility] Comment on above: Performed By: #### CALEB GOULD ####[facility] [address] [place], [place] [address]Dr. Jesus White WBC NONE SEEN Normal NONE SEEN [facility] Comment on above: Performed By: #### VALERIO GOULDRO ####[facility] [address] [place], [place] [address]Dr. Jesus White US CRYSTAL DOP LEG LTon [...] VARSHA BARNARD Date: 2022-01-01 08:49 Normal [facility] Vital Signs Date Time Vital Sign Value Performing Clinician Facility 03-17-2023 15:20-0400 Body height 177.8 cm Jose Julien Other [facility] Other 03-17-2023 15:20-0400 Body mass index (BMI) [Ratio] 31.96 kg/m2 Jose Julien Other [facility] Other 03-17-2023 15:20-0400 Body temperature 96.9 [degF] Jose Julien Other [facility] Other 03-17-2023 15:20-0400 Body weight 101.06 kg Jose Julien Other [facility] Other 03-17-2023 15:20-0400 Diastolic blood pressure 73 mm[Hg] Jose Julien Other [facility] Other 03-17-2023 15:20-0400 Respiratory rate 18 /min Jose Julien Other [facility] Other 03-17-2023 15:20-0400 SaO2% (BldA) [Mass fraction] 98 % Jose Julien Other [facility] Other 03-17-2023 15:20-0400 Systolic blood pressure 134 mm[Hg] Jose Julien Other [facility] Other 09-30-2022 11:20-0400 Body height 177.8 cm Jose Julien Other [facility] Other 09-30-2022 11:20-0400 Body mass index (BMI) [Ratio] 33.6 kg/m2 Jose Julien Other [facility] Other 09-30-2022 11:20-0400 Body temperature 96.3 [degF] Jose Julien Other [facility] Other 09-30-2022 11:20-0400 Body weight 106.23 kg Jose Julien Other [facility] Other 09-30-2022 11:20-0400 Diastolic blood pressure 64 mm[Hg] Jose Julien Other [facility] Other 09-30-2022 11:20-0400 Respiratory rate 18 /min Jose Julien Other [facility] Other 09-30-2022 11:20-0400 SaO2% (BldA) [Mass fraction] 99 % Jose Julien Other [facility] Other 09-30-2022 11:20-0400 Systolic blood pressure 138 mm[Hg] Jose Julien Other [facility] Other 03-22-2022 14:00-0400 Body height 177.8 cm Jose Julien Other [facility] Other 03-22-2022 14:00-0400 Body mass index (BMI) [Ratio] 33.14 kg/m2 Jose Julien Other [facility] Other 03-22-2022 14:00-0400 Body temperature 95.9 [degF] Jose Julien Other [facility] Other 03-22-2022 14:00-0400 Body weight 104.78 kg Jose Julien Other [facility] Other 03-22-2022 14:00-0400 Diastolic blood pressure 70 mm[Hg] Jose Julien Other [facility] Other 03-22-2022 14:00-0400 Respiratory rate 18 /min Jose Julien Other [facility] Other 03-22-2022 14:00-0400 SaO2% (BldA) [Mass fraction] 97 % Jose Julien Other [facility] Other 03-22-2022 14:00-0400 Systolic blood pressure 119 mm[Hg] Jose Julien Other [facility] Other 06-18-2021 11:40-0500 Body height 177.8 cm Jose Julien Other [facility] Other 06-18-2021 11:40-0500 Body mass index (BMI) [Ratio] 37.22 kg/m2 Jose Julien Other [facility] Other 06-18-2021 11:40-0500 Body temperature 95.9 [degF] Jose Julien Other [facility] Other 06-18-2021 11:40-0500 Body weight 117.66 kg Jose Julien Other [facility] Other 06-18-2021 11:40-0500 Diastolic blood pressure 70 mm[Hg] Jose Julien Other [facility] Other 06-18-2021 11:40-0500 Respiratory rate 18 /min Jose Julien Other [facility] Other 06-18-2021 11:40-0500 SaO2% (BldA) [Mass fraction] 97 % Jose Julien Other [facility] Other 06-18-2021 11:40-0500 Systolic blood pressure 124 mm[Hg] Jose Julien Other [facility] Other Encounters Encounter Date Encounter Type Care Provider Facility Start: 10-17-2023 ambulatory Carols HOLLINS Facility :[facility] Start: 09-28-2023 End: 09-28-2023 ambulatory PATEL FAWWAD Not Available Start: 08-23-2023 End: 08-23-2023 ambulatory PATEL FAWWAD Not Available Start: 05-10-2023 End: 05-10-2023 ambulatory PATEL FAWWAD Not Available Start: 03-17-2023 End: 03-17-2023 ambulatory Jose Julien Other [facility] Other Start: 03-17-2023 Office outpatient vi sit 15 minutes Jose Julien [facility] Start: 10-15-2022 End: 10-16-2022 ambulatory Carlos HOLLINS Facility: [facility] Start: 10-11-2022 End: 10-12-[address] CARLOS HOLLINS Facility:[facility] Start: 09-30-2022 End: 09-30-2022 ambulatory Jose Julien Other [facility] Other Start: 09-30-2022 Office outpatient vi sit 15 minutes Jose Julien [facility] Start: 08-24-2022 ambulatory Carlos HOLLINS Facility : [facility] Start: 08-23-2022 End: 08-24-2022 ambulatory SHAIKH Nancy QUINTEROS Facility:[facility] Start: 07-05-2022 End: 07-06-2022 ambulatory RUKHSANA AGUILAR . Facility:[facility] Start: 04-08-2022 End: 04-08-[address] COLTEN NUNO . Facility:[facility] Start: 03-24-2022 End: 03-25-2022 ambulatory RUKHSANA SAM . Facility:[facility] Start: 03-22-2022 End: 03-22-2022 ambulatory Jose Julien Other [facility] Other Start: 03-22-2022 Office outpatient vi sit 25 minutes Jose Julien [facility] Start: 02-16-2022 End: 02-17-2022 ambulatory H ALMAD Facility:[facility] Start: 01-01-2022 End: 01-01-[address] LUNA DUFFY . Facility:[facility] Start: 06-21-2021 End: 06-21-2021 ambulatory Jose Julien Other [facility] Other Start: 06-21-2021 Telephone encounter Jose Julien [facility] Start: 06-18-2021 End: 06-18-2021 ambulatory Jose Julien Other [facility] Other Start: 06-18-2021 Office outpatient vi sit 25 minutes Jose Julien [facility] Procedures Date Procedure Procedure Detail Performing Clinician Start: 10-11-[address] WINIFRED HOLLINS Comment on above: Performed By: #### P SAD ####[facility] [address] [place], [place] [address]LfJordin Jesus White Payers Date Payer Category Payer Medicare [id number] 2. [id number] 1955 Unknown [id number] 2.16.8 [id number] 1955 Unknown [id number] 2.16.8 [id number] 1956 Unknown [id number] 2.16.8 [id number] 1956 Unknown [id number] 2.16.84 0.1.709378.3.579.2.593 1956 Unknown [id number] 2.16.84 0.1.963440.3.579.2.593 1956 Unknown [id number] 2.16.84 0.1.321446.3.579.2.593 1956 Unknown [id number] 2.16.84 0.1.620512.3.579.2.593 1956 Unknown [id number] 2.16.84 0.1.389667.3.579.2.593 1956 Unknown [id number] 2.16.84 0.1.064305.3.579.2.593 1956 Unknown [id number] 2.16.84 0.1.993430.3.579.2.593 1956 Unknown [id number] 2.16.84 0.1.379687.3.579.2.593 1956 Unknown [id number] 2.16.84 0.1.404292.3.579.2.1259 1956 Unknown [id number] 2.16.84 0.1.792650.3.579.2.1259 1956 Unknown [id number] 2.16.840 .[id number] Social History Date Type Detail Facility Unknown if ever smoked [facility] Other Sex Assigned At Sex Assigned At Bir th [facility] Other Evaluation note 03-17-2023 Note Date & [...] Monitor LFTs and lipid profile with PCP. [facility] Other Evaluation note 09-30-2022 Note Date & [...] have gout. I have prescribed oral Allopurinol [facility] Other Evaluation note 03-22-2022 Note Date & [...] have gout. I have prescribed oral Allopurinol [facility] Other Clinical Note 01-01-2022 Note Date & [...] by: LUCAS GOLDSTEIN Date: 2022-01-01 08:35 [facility] Evaluation note 06-18-2021 Note Date & [...] Q60.0) He has a solitary right kidney. [facility] Other Evaluation note Note Date & Type Note Facility Evaluation note No Information [facility] Other History general Narrative - Reported Note Date & Type Note Facility History general Narrative - Reported [facility] Other History general Narrative - Reported Note [...] History BLOOD PRESSURE W 60/40, DEHYDRATION 04/2021 [facility] Other History general Narrative - Reported Note [...] History BLOOD PRESSURE W 60/40, DEHYDRATION 04/2021 [facility] Other History general Narrative - Reported Note [...] History BLOOD PRESSURE W 60/40, DEHYDRATION 04/2021 [facility] Other Summary Purpose Family History No Family [...] section and content) DATE CREATED AUTHOR 10/16/2022 [facility] DATE CREATED AUTHOR AUTHOR'S ORGANIZ ATION 11/12/2022 [facility] DATE CREATED AUTHOR AUTHOR'S ORGANIZ ATION 09/29/2023 [facility] FOR RECORDS PERTAINING TO PATIENTS WHO ARE [...] BE BASED ON THE PRIMARY CLINICAL RECORDS. [employer] provides no warranty or guarantee of the accuracy or completeness of information in this document.
== END 2023-09-30 08:42 | disposition home or self-care (01) ==
LOC: LAB 08:42
PROVIDERS: PCP Internal Medicine; Visit Provider Urology
DX: N40.1 Benign prostatic hyperplasia with lower urinary tract symptoms (principal); Z85.46 Personal history of malignant neoplasm of prostate
CPT/HCPCS: 36415; 84153

== ENCOUNTER 2023-10-04 12:51 | Outpatient (OUT) | payer MEDICARE, SELFPAY ==
[2023-10-04 13:36] LABS: Hematocrit 38.9 % (42.0-54.0); Hemoglobin 13.2 g/dL (14.0-18.0); Mean Corpuscular HGB Conc 33.9 g/dL (29.9-35.2); Mean Corpuscular Hemoglobin 31.6 pg (25.9-34.0); Mean Corpuscular Volume 93.1 fL (80.0-94.0); Mean Platelet Volume 10.5 fL (9.5-13.5); Platelet Count 244 10^3/uL (150-450); Red Blood Count 4.18 10^6/uL (4.70-6.10); Red Cell Distribution Width 13.5 % (11.0-15.0); White Blood Count 11.9 10^3/uL (4.0-11.0)
[2023-10-04 13:38] LABS: Creatinine Urine Random 102.05 mg/dL (20.00-300.00); Protein Creatinine Ratio Urine 0.16; Total Protein Urine Random 16.2 mg/dL (<=11.9)
[2023-10-04 13:42] LABS: Albumin Level 3.6 g/dL (3.4-5.0); Anion Gap 14.5; Calcium 9.4 mg/dL (8.5-10.1); Carbon Dioxide 24.4 mmol/L (21.0-32.0); Chloride 104 mmol/L (98-107); Estimated GFR (African America >60 (>=60); Estimated GFR (Non-African Ame >60 (>=60); Glucose 117 mg/dL (74-106); Phosphorus 4.4 mg/dL (2.6-4.7); Potassium 3.9 mmol/L (3.5-5.1); Sodium 139 mmol/L (136-145); Uric Acid 5.6 mg/dL (3.5-7.2)
[2023-10-04 14:08] LABS: Percent Iron Saturation 29.2 %
[2023-10-04 14:45] LABS: Bilirubin Urine NEGATIVE (NEGATIVE); Blood Urine NEGATIVE (NEGATIVE); Clarity Urine CLEAR (CLEAR); Color Urine YELLOW (YELLOW); Glucose Urine UA NEGATIVE (NEGATIVE); Ketones Urine NEGATIVE (NEGATIVE); Leukocyte Esterase Urine NEGATIVE (NEGATIVE); Nitrite Urine NEGATIVE (NEGATIVE); Protein Urine NEGATIVE (NEG/TRACE); Specific Gravity Urine 1.025 (1.005-1.025); Urobilinogen Urine 0.2 EU/dL (0.2-1.0)
[2023-10-04 15:15] LABS: Bacteria Urine NONE SEEN #/HPF (NONE SEEN); Cast Seen? NONE SEEN #/LPF (NONE SEEN); Crystals Seen? None Seen #/HPF (None Seen); Mucus Urine NONE SEEN (NONE SEEN); RBC Urine NONE SEEN #/HPF (0-2); Squamous Epithelial Cell Urine NONE SEEN #/LPF (NONE/RARE); WBC Urine 0-2 #/HPF (NONE SEEN)
[2023-10-05 15:08] LABS: PTH, Intact 35 pg/mL (15-65)
== END 2023-10-04 12:52 | disposition home or self-care (01) ==
LOC: LAB 12:54
PROVIDERS: PCP Internal Medicine; Visit Provider Internal Medicine
DX: I12.9 Hypertensive chronic kidney disease with stage 1 through stage 4 chronic kidney disease, or unspecified chronic kidney disease (principal); N18.30 Chronic kidney disease, stage 3 unspecified; N25.81 Secondary hyperparathyroidism of renal origin; Q60.0 Renal agenesis, unilateral; E79.0 Hyperuricemia without signs of inflammatory arthritis and tophaceous disease; D63.1 Anemia in chronic kidney disease
CPT/HCPCS: 36415; 80069; 81001; 82306; 82570; 82728; 83540; 83550; 83970; 84156; 84550; 85027

== ENCOUNTER 2023-10-04 13:44 | Outpatient (RCR) | payer MEDICARE, SELFPAY | END 2023-11-11 11:43 | disposition home or self-care (01) | LOC: PT 13:44 | PROVIDERS: PCP Internal Medicine; Visit Provider Internal Medicine | DX: M25.511 Pain in right shoulder (principal); G89.29 Other chronic pain | CPT/HCPCS: 97110; 97140; 97163 ==

== ENCOUNTER 2023-12-22 08:59 | Outpatient (OUT) | payer MEDICARE, SELFPAY ==
--- OUTSIDE RECORDS SUMMARY | 2023-12-22 09:19 | XMS_ITS | CCD ---
Author Organization [facility] ion [facility] Care Team Providers Care Felt Coverer Name Role Phone Jose Victoria Unavailable DR CARLOS HOLLINS Consulting Unavailable COOK, PEGGY Attending Unavailable FAWWAD, PATEL H Primary Care Unavailable PEGGY HOLLINS Admitting Unavailable SAMSA ., RUKHSANA Admitting Unavailable ZIEBAMY, DR LUCAS Miller Consulting Unavailable SAMSA ., RUKHSANA Attending Unavailable FAWWAD, PATEL H Primary Care Unavailable SAMSA ., RUKHSANA Consulting Unavailable FAWWAD, PATEL H Admitting Unavailable FAWWAD, PATEL H Attending Unavailable FAWWAD, PATEL H Consulting Unavailable FAWWAD, PATEL H Primary Care Unavailable SAMSA ., RUKHSANA Admitting Unavailable SAMSA ., RUKHSANA Attending Unavailable TRISOTN, DR LUCAS Miller Consulting Unavailable FAWWAD, PATEL H Primary Care Unavailable SAMSA ., RUKHSANA Consulting Unavailable FAWWAD, PATEL H Admitting Unavailable FAWWAD, PATEL H Attending Unavailable FAWWAD, PATEL H Consulting Unavailable FAWWAD, PATEL H Primary Care Unavailable PAY ., DR CARRASCO Admitting Unavailable TRISTON, DR LUCAS Miller Consulting Unavailable PAY ., DR CARRASCO Attending Unavailable FAWWAD, PATEL H Primary Care Unavailable PAY ., DR CARRASCO Consulting Unavailable VARSHA BARNARD Consulting Unavailable NURYS ., DR ABEL Admitting Unavailable HAY ., DR ABEL Attending Unavailable GRECHNY .ABHI Consulting Unavailabl e FAWWAD, PATEL H Primary Care Unavailable HAY ., DR ABEL Consulting Unavailable MARKER ., DR ROBERSON Consulting Unavailable ERNA LEON Consulting Unavailable SAMSA ., RUKHSANA Attending Unavailable FAWWAD, PATEL H Primary Care Unavailable SAMSA ., RUKHSANA Consulting Unavailable RUKHSANA DUPONT Admitting Unavailable SHAIKH QUINTEROS Primary Care Physician Carlos HOLLINS Attending Unavailable SHAIKH QUINTEROS Primary Care Unavailable Carlos HOLLINS Attending Unavailable SHAIKH QUINTEROS Attending Unavailable SHAIKH QUINTEROS Attending Unavailable SHAIKH QUINTEROS Attending Unavailable SHAIKH QUINTEROS Attending Unavailable Allergies Allergy Classification Reported Allergen(s) Allergy Type Date of Onset Reaction(s) Facility (1 source) No Known Medication Allergies; Translations: [No Known Medication Allergies] Propensity to adverse reactions (disorder) [facility] Repository Medications Current Medications Medication Drug Class(es) Dates Sig (Normalized) Sig (Original) [id number] 200 actuat albuterol 0.09 mg/actuat metered dose inhaler (6 sources) beta2-Adrenergic Agonist Start: 10-13-2023 take 1 puff(s) by inhalation every four hours Albuterol Sulfate Active 1 PUFF INHALATION Every 4 hours October 13, 2023 12:00am take 1 puff(s) by in halation every four hours as needed Albuterol Sulfate HFA 108 (90 Base) MCG/ACT 1 puff as needed Inhalation every 4 hrs Active take 1 puff(s) by in halation every four hours as needed Albuterol Sulfate HFA 108 (90 Base) MCG/ACT 1 puff as needed Inhalation every 4 hrs Active allopurinol 100 mg oral tablet (4 sources) Xanthine Oxidase Inhibitor Start: 10-13-2023 take 100 mg by mouth once daily Allopurinol Active 100 MG PO Daily October 13, 2023 12:00am Start: 03-22-2022 take 1 tablet by martinez th every twenty-four hours Allopurinol 100 MG 1 tablet Orally Once a day for 90 day(s) Mar, Active amLODIPine 5 mg oral tablet (6 sources) Dihydropyridine Calcium Channel Ellis Start: 10-13-2023 take 5 mg by mouth once daily Amlodipine Active 5 MG PO Daily October 13, 2023 12:00am take 1 tablet by martinez th every twenty-four hours amLODIPine Besylate 5 MG 1 tablet Orally Once a day Active atorvastatin 40 mg oral tablet (7 sources) HMG-CoA Reductase Inhibitor Start: 11-01-2019 take 40 mg by mouth once daily Atorvastatin Active 40 MG PO Daily October 13, 2023 12:00am ergocalciferol 0.05 mg oral capsule (5 sources) Provitamin D2 Compound take 1 capsule by mouth every twenty-four hours Vitamin D (Ergocalciferol) 50 MCG (1999 UT) 1 capsule Orally Once a day Active furosemide 20 mg oral tablet (7 sources) Loop Diuretic Start: 11-01-2019 take 20 mg by mouth once daily Furosemide Active 20 MG PO Daily October 13, 2023 12:00am Ipratropium (1 source) Anticholinergic Start: 11-01-2019 Atrovent HFA Inhalation, QID, Refills(s) 0 Start Date: 11/01/19 Status: Ordered lansoprazole 15 mg disintegrating oral tablet (6 sources) Proton Pump Inhibitor Start: 10-13-2023 take 15 mg by mouth once daily Lansoprazole Active 15 MG PO Daily October 13, 2023 12:00am take 1 tablet by martinez th every twenty-four hours Lansoprazole 15 MG 1 tablet Orally Once a day Active losartan potassium 50 mg oral tablet (1 source) Angiotensin 2 Receptor Ellis Start: 08-21-2021 take 1 tablet by mouth once daily losartan 50 mg Tab 50 mg = 1 tab(s), Oral, Daily Start Date: 08/21/21 Status: Ordered metoprolol tartrate 25 mg oral tablet (7 sources) beta-Adrenergic Ellis Start: 10-13-2023 take 25 mg by mouth twice daily Metoprolol Tartrate Active 25 MG PO Twice daily October 13, 2023 12:00am Start: 11-01-2019 take 1 tablet by martinez th once daily metoprolol 25 mg ER Tab 25 mg = 1 tab(s), Oral, Daily, Refills(s) 0 Start Date: 11/01/19 Status: Ordered take 1 tablet by martinez th every twelve hours Metoprolol Tartrate 25 MG 1 tablet with food Orally Twice a day Active Multivitamin (Daily Multi-Vitamin) tablet (1 source) Start: 10-13-2023 take 1 tablet by mouth once daily Multivitamin (Daily Multi-Vitamin) tablet Active 1 TAB PO Daily October 13, 2023 12:00am Multivitamin preparation (2 sources) take 1 tablet by mouth once daily Multi Vitamin - 1 tablet Orally Once a day Active Nitro Sublingual 0.4 0.4mg (5 sources) Nitro Sublingual 0.4 0.4mg 1 Sublingual Every 5min x3 Active tamsulosin hydrochloride 0.4 mg oral capsule (7 sources) alpha-Adrenergic Ellis Start: 11-01-2019 take 0.4 mg by mouth once daily Tamsulosin Active 0.4 MG PO Daily October 13, 2023 12:00am Vitamin D3 (1 source) Start: 11-01-2019 Vitamin D3 Refills(s) 0 Start Date: 11/01/19 Status: Ordered Problems Active Problems Problem Classification Problem Date Documented Date Episodic/Chronic Alcohol-related disorders (1 source) Alcohol abuse with intoxication, unspecified; Translations: [ALCOHOL ABUSE WITH INTOXICATION UNS] Onset: 2 Chronic Cancer of kidney and renal pelvis (1 source) Renal cell carcinoma 11-01-2019 Chronic Cancer of kidney and renal pelvis (2 sources) History of malignant neoplasm of kidney; Translations: [Personal history of other malignant neoplasm of kidney] Onset: 4 Episodic Cancer of prostate (1 source) Malignant tumor of prostate 11-01-2019 Chronic Cancer of prostate (6 sources) Personal history of malignant neoplasm of prostate; Translations: [History of malignant neoplasm of prostate] Onset: 3 Episodic Chronic kidney disease (5 sources) Chronic kidney disease stage 3; Translations: [Chronic kidney disease, stage III (moderate)] 10-13-2023 Chronic Deficiency and other anemia (1 source) Anemia in chronic kidney disease; Translations: [Anemia in chronic kidney disease] Chronic Deficiency and other anemia (1 source) Anemia in chronic kidney disease Chronic Disorders of lipid metabolism (8 sources) Hyperlipidemia, unspecified; Translations: [Dyslipidemia] Onset: 3 Chronic Essential hypertension (3 sources) Essential (primary) hypertension; Translations: [Hypertensive disorder] Onset: 3 11-01-2019 Chronic Genitourinary congenital anomalies (9 sources) Renal agenesis and dysgenesis; 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, unilateral] Onset: 2 Resolved: 2 Chronic Genitourinary symptoms and ill-defined conditions (3 sources) History of urinary tract infection; Translations: [Increased frequency of urination] 11-09-2019 Episodic Hyperplasia of prostate (3 sources) Benign prostatic hypertrophy with outflow obstruction; Translations: [Benign prostatic hyperplasia with lower urinary tract symptoms] Onset: 4 Chronic Hypertension with complications and secondary hypertension (11 sources) Chronic kidney disease due to hypertension; Translations: [Hypertensive chronic kidney disease with stage 1 through stage 4 chronic kidney disease, or unspecified chronic kidney disease] Onset: 2 Resolved: 2 Chronic Other diseases of kidney and ureters (6 sources) Secondary hyperparathyroidism; Translations: [Secondary hyperparathyroidism of renal origin] 10-13-2023 Chronic Other diseases of kidney and ureters (5 sources) Secondary hyperparathyroidism of renal origin; Translations: [Secondary hyperparathyroidism (of renal origin)] Onset: 2 Resolved: 2 Chronic Other lower respiratory disease (4 sources) Other nonspecific abnormal finding of lung field; Translations: [OTH NONSPECIFIC ABN FIND LNG FIELD] Onset: 3 Episodic Other nutritional; endocrine; and metabolic disorders (2 sources) Hypomagnesemia; Translations: [Hypomagnesemia] 10-13-2023 Chronic Other nutritional; endocrine; and metabolic disorders (2 sources) Hypomagnesemia; Translations: [Disorders of magnesium metabolism] Chronic Other nutritional; endocrine; and metabolic disorders (4 sources) Hyperuricemia without signs of inflammatory arthritis and tophaceous disease; Translations: [Other abnormal blood chemistry] Episodic Other nutritional; endocrine; and metabolic disorders (1 source) Hyperuricemia; Translations: [Hyperuricemia without signs of inflammatory arthritis and tophaceous disease] 10-13-2023 Episodic Other screening for suspected conditions (not mental disorders or infectious disease) (7 sources) Other specified abnormal findings of blood chemistry; Translations: [Raised prostate specific antigen] Onset: 2 Episodic Residual codes; unclassified (6 sources) Obstructive sleep apnea syndrome; Translations: [Obstructive sleep apnea (adult) (pediatric)] Onset: 2 Chronic Residual codes; unclassified (5 sources) Central alveolar hypoventilation syndrome; Translations: [Idiopathic sleep related nonobstructive alveolar hypoventilation] Chronic Residual codes; unclassified (3 sources) Obstructive sleep apnea (adult) (pediatric); Translations: [OBSTRUCTIVE SLEEP APNEA] Onset: 2 Chronic Residual codes; unclassified (1 source) Absent kidney; Translations: [Acquired absence of kidney] 10-13-2023 Episodic Residual codes; unclassified (1 source) Acquired absence of kidney; Translations: [Acquired absence of kidney] 10-13-2023 Episodic Substance-related disorders (11 sources) Nicotine dependence; Translations: [Nicotine dependence, unspecified, uncomplicated] Onset: 2 Chronic Comment on above: Added secondary to d ocumentation in Social History. Unclassified (1 source) CONTACT W/AND (SUSP) EXPOS COVID-19; Translations: [CONTACT W/AND (SUSP) EXPOS COVID-19] Onset: 2 Unclassified (1 source) Drug therapy finding 11-01-2019 Past or Other Problems Problem Classification Problem [...] 04-12-2022 Episodic Other aftercare (1 source) Other long term care administrator (current) drug therapy; Translations: [OTH WALLPAPER INSPECTOR AND SHIPPER CURRENT DRUG THERAPY] Onset: 04-12-2022 Episodic Other connective tissue disease (1 source) Pain in left leg; Translations: [PAIN IN LEFT LEG] Onset: 01-04-2022 Episodic Other nervous system disorders (1 source) Slurred speech; Translations: [SLURRED SPEECH] Onset: 04-12-2022 Episodic Residual codes; unclassified (4 sources) Altered mental status, unspecified; Translations: [ALTERED MENTAL STATUS UNSPECIFIED] Onset: 04-08-2022 Episodic Results Test Name Value Interpretation Reference Range Facility ED Note-Physicianon 10-20-19 24 ED Note-Physician [id number] 0#1.00TIFF Normal [facility] Lab Reportson 10-20-2023 Lab Reports [id number] 9#1.00TIFF [facility] Lab Reports [id number] 2#1.00TIFF [facility] RAD - CT Reporton 10-20-2023 RAD - CT Report [id number] 5#1.00TIFF [facility] Screenson 10-20-2023 Screens [id number] #1.00TIFF [facility] Ambulatory Visit Summaryon 0 10-17-2023 Ambulatory Visit Summary ABBEY IRVING :1955 Visit Date:10/17/2023 Ambulatory Visit Instructions Your Diagnosis Rising PSA following treatment for malignant neoplasm of prostate Personal history of prostate cancer BPH with obstruction/lower urinary tract symptoms Personal history of renal cell carcinoma Your Care Team Attending Physician - Carlos HOLLINS MD Primary Care Physician - KALIN HENDRICKSON, This Is Your Medications List Contact prescribing physician if questions or concerns atorvastatin cholecalciferol (Vitamin D3) furosemide (furosemide 20 mg Tab) ipratropium (Atrovent HFA) losartan (losartan 50 mg Tab) metoprolol (metoprolol 25 mg ER Tab) tamsulosin (tamsulosin 0.4 mg Cap) Procedures Performed Brachytherapy (03/24/2011), Left nephrectomy (06/06/2000), Cataract, Extraction of wisdom tooth, History of hernia repair. Discharge Vitals Heart Rate (Peripheral) 66 Respiratory Rate 18 Blood Pressure 120/66 Height 177 cm Height 70 in Weight 102.2 kg Weight 224.84 lb BMI 32.62 What to do next Scheduled Follow-Up Appointments Tuesday 9:45 AM EDT With: Carlos HOLLINS MD Where: [facility] Patient Educationon 10-17-19 24 Patient Education Oncology Prostate Cancer The prostate is a small gland that produces fluid that makes up semen (seminal fluid). It is located below the bladder in men, in front of the rectum. Prostate cancer is the abnormal growth of cells in the prostate gland. What are the causes? The exact cause of this condition is not known. What increases the risk? You are more likely to develop this condition if: ? You are 65 years of age or older. ? You have a family history of prostate cancer. ? You have a family history of breast and ovarian cancer. ? You have genes that are passed from parent to child (inherited), such as BRCA1 and BRCA2. ? You have Ayon syndrome. men and men of descent are diagnosed with prostate cancer at higher rates than other men. The reasons for this are not well understood and are likely due to a combination of genetic and environmental factors. What are the signs or symptoms? Symptoms of this condition include: ? Problems with urination. This may include: ? A weak or interrupted flow of urine. ? Trouble starting or stopping urination. ? Trouble emptying the bladder all the way. ? The need to urinate more often, especially at night. ? Blood in urine or semen. ? Persistent pain or discomfort in the lower back, lower abdomen, or hips. ? Trouble getting an erection. ? Weakness or numbness in the legs or feet. How is this diagnosed? This condition can be diagnosed with: ? A digital rectal exam. For this exam, a health care provider inserts a gloved finger into the rectum to feel the prostate gland. ? A blood test called a prostate-specific antigen (PSA) test. ? A procedure in which a sample of tissue is taken from the prostate and checked under a microscope (prostate biopsy). ? An imaging test called transrectal ultrasonography. Once the condition is diagnosed, tests will be done to determine how far the cancer has spread. This is called staging the cancer. Staging may involve imaging tests, such as a bone scan, CT scan, PET scan, or MRI. Stages of prostate cancer The stages of prostate cancer are as follows: ? Stage 1 (I). At this stage, the cancer is found in the prostate only. The cancer is not visible on imaging tests, and it is usually found by accident, such as during prostate surgery. ? Stage 2 (II). At this stage, the cancer is more advanced than it is in stage 1, but the cancer has not spread outside the prostate. ? Stage 3 (III). At this stage, the cancer has spread beyond the outer layer of the prostate to nearby tissues. The cancer may be found in the seminal vesicles, which are near the bladder and the prostate. ? Stage 4 (IV). At this stage, the cancer has spread to other parts of the body, such as the lymph nodes, bones, bladder, rectum, liver, or lungs. Prostate cancer grading Prostate cancer is also graded according to how the cancer cells look under a microscope. This is called the Wilder score and the total score can range from 6?10, indicating how likely it is that the cancer will spread (metastasize) to other parts of the body. The higher the score, the greater the likelihood that the cancer will spread. ? Wilder 6 or lower: This indicates that the cancer cells look similar to normal prostate cells (well differentiated). ? Primitivo 7: This indicates that the cancer cells look somewhat similar to normal prostate cells (moderately differentiated). ? Wilder 8, 9, or 10: This indicates that the cancer cells look very different than normal prostate cells (poorly differentiated). How is this treated? Treatment for this condition depends on several factors, including the stage of the cancer, your age, personal preferences, and your overall health. Talk with your health care provider about treatment options that are recommended for you. Common treatments include: ? Observation for early stage prostate cancer (active surveillance). This involves having exams, blood tests, and in some cases, more biopsies. For some men, this is the only treatment needed. ? Surgery. Types of surgeries include: ? Open surgery (radical prostatectomy). In this surgery, a larger incision is made to remove the prostate. ? A laparoscopic radical prostatectomy. This is a surgery to remove the prostate and lymph nodes through several small incisions. It is often referred to as a minimally invasive surgery. ? A robotic radical prostatectomy. This is laparoscopic surgery to remove the prostate and lymph nodes with the help of robotic arms that are controlled by the surgeon. ? Cryoablation. This is surgery to freeze and destroy cancer cells. ? Radiation treatment. Types of radiation treatment include: ? External beam radiation. This type aims beams of radiation from outside the body at the prostate to destroy cancerous cells. ? Brachytherapy. This type uses radioactive needles, seeds, wires, or tubes that are implanted into the prostate gland. Like external be (more content not included)... Normal [facility] Urology Office/Clinic Noteon 10-17-2023 Urology Office/Clinic Note Chief Complaint 1 year follow up HPI Staff 1 year follow up w/PSA *Taking Flomax 0.4 mg qd S/P Lt Nephrectomy 2000 Pt was seen at [facility] on 09/06/23 due to left rib pain. BUN 36, Creatinine 1.09 10/04/23. BUN 26. Creatinine 1.33 09/06/23 CT SCAN 08/12/23 PSA: 10/26/19 - 0.05 08/10/21 - 0.05 10/11/22 - <0.13 09/30/23 - 0.90 Dysuria: denies pain or burning Incomplete bladder emptying: denies Hematuria: yes 6 weeks ago, went to [facility], vomiting blood Frequency: 3x a day Urgency: sometimes Nocturia: 1x a nigh in the past 6 weeks Stream: denies hesitancy, denies weak stream Leaking: denies Post void dripping: yes Wearing pads/ Depends: _ Urge incontinence: _ Stress incontinence: _ Incontinence without Sensory Awareness: _ Abdominal pain: denies Flank pain: yes left sided pain Sexual complaints: _ History of Present Illness Tests reviewed: reviewed UA, CT, and PSA. I have reviewed the previous health record information and history for this patient from Dr. Hollins. I have reviewed and verified the staff HPI to be accurate for this encounter. There have been no associated fever, chills, flank pain, or blood in the urine. Denies any urinary infections since last encounter. Review of Systems PHQ Score Initial Depression Screen Score: 0 SCORE ROS - Provider Constitutional: denies weight loss, [...] HPI. Physical Exam Vitals & Measurements HR: 66(Peripheral) RR: 18 BP: 120/66 HT: 70 in HT: 177 cm WT: 102.2 kg WT: 224.84 lb BMI: 32.62 General Appearance: alert, no distress, well nourished, well developed male. Assessment/Plan Portions of this record may have been created with voice recognition artificial intelligence software, specifically [employer], [employer] and or [employer]. Substitutions may have occurred due to the inherent limitations of voice recognition and artificial intelligence software. 1. Rising PSA following treatment for malignant neoplasm of prostate (R97.21: Rising PSA following treatment for malignant neoplasm of prostate) PSA: 10/26/19 - 0.05 08/10/21 - 0.05 10/11/22 - <0.13 09/30/23 - 0.90 S/p brachytherapy 03/24/11. Pt believes he had a Primitivo 7. Completed at [facility]. Rise in PSA is concerning given pt has been stable. Discussed options such as repeating PSA vs MRI or repeating bx. We also discussed PSMA PET scan. Will proceed with repeating PSA. Consider ADT in the future pending PSA. -Repeat PSA and follow up in 3 months 2. Personal history of prostate cancer (Z85.46: Personal history of malignant neoplasm of prostate) See #1. 3. BPH with obstruction/lower urinary tract symptoms (N40.1: Benign prostatic hyperplasia with lower urinary tract symptoms) UA today neg. Taking Flomax 0.4mg qd. IPSS 8 (9) No urinary concerns. 4. Personal history of renal cell carcinoma (Z85.528: Personal history of other malignant neoplasm of kidney) S/p L nephrectomy 2000. CT AP w IV con 08/12/23 [external provider ordered] status post left nephrectomy. No evidence of lymphadenopathy. There is a tiny hypodensity in the posterior right kidney likely representing a tiny cyst. Overall this patient with a longstanding history of adenocarcinoma the prostate, previously treated at the [facility] with prostate brachytherapy now has a PSA up to 0.9. Prior levels are noted. This is worrisome for prostate cancer recurrence. We discussed the possibility of another biopsy upcoming. This could be preceded by either an MRI of the prostate versus a PSMA PET scan. Is my preference to wait 3 to 4 months with a repeat free and total PSA to see what this number does over the short course. He agrees with that plan. Recent CT scan demonstrated no evidence of kidney cancer recurrence. He is doing well with only 1 kidney status post left radical nephrectomy over 20 years ago. He does understand however that the increased to 0.9 is worrisome. Stay on the FLomax-0.4 mg , no dosage changes. Follow-up With When Contact Information Carlos HOLLINS MD, URL [address] [id number]- Additional Instructions: 3 mos w/ PSA Patient Education Prostate Cancer I, Tala Lugo, personally scribed for Dr. Hollins on 10/17/2023 10:42:59. . Documentation recorded by the scribe, Tala Lugo, accurately reflects the services(s) I performed and decisions made by me. Authenticated by Dr. Hollins on 10/17/2023 10:47:47. Problem List/Past (more content not included)... Normal [facility] Comment on above: Result Comment: Elec tronically Signed By: Carlos HOLLINS MD\.br\Date and Time Signed: 10/17/23 10:50 EDT Automated epithelial cells c ount in urine sediment (number/area)on 10-04-2023 Epithelial cells Auto (Urine sed) [#/Area] NONE SEEN #/LPF NONE/RARE [facility] Automated leukocytes count i n urine sediment (number/area)on 10-04-2023 WBC Auto (Urine sed) [#/Area] NONE SEEN #/HPF 0-2 [facility] Automated urine specific gra vity by refractometryon 10-04-2023 Specific gravity Refractometry automated (U) [Rel density] 1.025 1.005-1.025 [facility] Bilirubin Auto test strip (U ) [Mass/Vol]on 10-04-2023 Bilirubin (U) [Mass/Vol] Negative NEGATIVE [facility] Casts typing in urine sedime nt by light microscopyon 10-04-2023 Casts LM Nom (Urine sed) NONE SEEN #/LPF NONE SEEN [facility] Color Auto (U)on 10-04-2023 Color (U) YELLOW YELLOW [facility] Erythrocyte distribution wid th Auto (RBC) [Ratio]on 10-04-2023 Erythrocyte distribution width (RBC) [Ratio] 13.5 % 11.0-15.0 [facility] Estimated glomerular filtrat ion rate (GFR) non- Americanon 10-04-2023 GFR/1.73 sq M.predicted among non-blacks MDRD (S/P/Bld) [Vol rate/Area] mL/min/{1.73_m2} >=60 [facility] [facility] Hematocrit Auto (Bld) [Volum e fraction]on 10-04-2023 Hematocrit (Bld) [Volume fraction] 38.9 % 42.0-54.0 [facility] Hemoglobin [Mass/volume] in Bloodon 10-04-2023 Hemoglobin (Bld) [Mass/Vol] 13.2 g/dL 14.0-18.0 [facility] Iron binding capacity [Mass/ volume] in Serum or Plasmaon 10-04-2023 Iron binding capacity [Mass/Vol] 274.0 ug/dL 250.0-450.0 [facility] Iron saturation [Mass Fracti on] in Serum or Plasmaon 10-04-2023 Iron saturation [Mass fraction] 29.2 % [facility] Ketones Auto test strip (U) [Mass/Vol]on 10-04-2023 Ketones (U) [Mass/Vol] Negative NEGATIVE [facility] Laboratory - Chemistry and C hemistry - challengeon 10-04-2023 Albumin [Mass/Vol] 3.6 g/dL 3.4-5.0 [facility] Calcium [Mass/Vol] 9.4 mg/dL 8.5-10.1 [facility] Chloride [Moles/Vol] 104 mmol/L 98-107 [facility] CO2 [Moles/Vol] 24.4 mmol/L 21.0-32.0 [facility] Creatinine [Mass/Vol] 1.09 mg/dL 0.70-1.30 [facility] Ferritin [Mass/Vol] 257.0 ng/mL 26.0-388.0 [facility] GFR/1.73 sq M.predicted MDRD (S/P/Bld) [Vol rate/Area] mL/min/{1.73_m2} >=60 [facility] Glucose [Mass/Vol] 117 mg/dL 74-106 [facility] Iron [Mass/Vol] 80.0 ug/dL 65.0-175.0 [facility] Potassium [Moles/Vol] 3.9 mmol/L 3.5-5.1 [facility] Sodium [Moles/Vol] 139 mmol/L 136-145 [facility] Urate [Mass/Vol] 5.6 mg/dL 3.5-7.2 [facility] Urea nitrogen [Mass/Vol] 36.0 mg/dL 7.0-18.0 [facility] Urea nitrogen/Creatinine [Mass ratio] 33.0 mg/mg [facility] Laboratory - Urinalysison Protein (U) [Mass/Vol] 16.2 mg/dL <=11.9 [facility] Leukocytes [#/volume] correc yoandy for nucleated erythrocytes in Blood by Automated counon 10-04-2023 WBC corrected for nucl RBC Auto (Bld) [#/Vol] 11.9 10 3/uL 4.0-11.0 [facility] MCH Auto (RBC) [Entitic mass ]on 10-04-2023 MCH (RBC) [Entitic mass] 31.6 pg 25.9-34.0 [facility] MCHC Auto (RBC) [Mass/Vol]on 10-04-2023 MCHC (RBC) [Mass/Vol] 33.9 g/dL 29.9-35.2 [facility] MCV Auto (RBC) [Entitic vol] on 10-04-2023 MCV (RBC) [Entitic vol] 93.1 fL 80.0-94.0 [facility] Mucus LM Ql (Urine sed)on Mucus Ql (Urine sed) NONE SEEN NONE SEEN [facility] No Panel Informationon 10-03 25-Hydroxy Vitamin D Total 29.7 ng/mL [facility] Comment on above: <20 ng/mL Vit D defi cient20-<30 ng/mL Vit D -263 ng/mL Vit D sufficient>100 ng/mL Potential Toxicity Parathyroid Hormone (Intact) 35 pg/mL 15-65 [facility] Comment on above: Performed at: [address] [place] [id number] Director: Raymundo Wynn PhD, Phone: [phone] Phosphorus Level 4.4 mg/dL 2.6-4.7 [facility] Urine Random Creatinine 102.05 mg/dL 20.00-300.00 [facility] Platelet mean volume Auto (B ld) [Entitic vol]on 10-04-2023 Platelet mean volume (Bld) [Entitic vol] 10.5 fL 9.5-13.5 [facility] Platelets Auto (Bld) [#/Vol] on 10-04-2023 Platelets (Bld) [#/Vol] 244 10 3/uL 150-450 [facility] Protein Auto test strip (U) [Mass/Vol]on 10-04-2023 Protein (U) [Mass/Vol] Negative NEG/TRACE [facility] RBC Auto (Bld) [#/Vol]on RBC (Bld) [#/Vol] 4.18 10 6/uL 4.70-6.10 [facility] Serum or plasma anion gap de terminationon 10-04-2023 Anion gap [Moles/Vol] 14.5 mmol/[facility] Specific gravity Auto test s trip (U) [Rel density]on 10-04-2023 Specific gravity (U) [Rel density] CLEAR CLEAR [facility] Urine bacteria detection by automated methodon 10-04-2023 Bacteria Auto Ql (U) NONE SEEN #/HPF NONE SEEN [facility] Urine glucose measurement by test strip (mass/volume)on 10-04-2023 Glucose Test strip (U) [Mass/Vol] Negative NEGATIVE [facility] Urine hemoglobin detection b y automated test stripon 10-04-2023 Hemoglobin Auto test strip Ql (U) Negative NEGATIVE [facility] Urine nitrite detection by a utomated test stripon 10-04-2023 Nitrite Auto test strip Ql (U) Negative NEGATIVE [facility] Urine protein/creatinine rat ioon 10-04-2023 Protein/Creatinine (U) [Ratio] 0.16 [facility] Urine sediment crystal ident ification by light microscopyon 10-04-2023 Crystals LM Nom (Urine sed) None Seen #/HPF None Seen [facility] Urine sediment leukocyte cou nt by microscopy (number/high power field)on 10-04-2023 WBC LM.HPF (Urine sed) [#/Area] 0-2 #/HPF NONE SEEN [facility] Urobilinogen Auto test strip (U) [Mass/Vol]on 10-04-2023 Urobilinogen Qn (U) 0.2 {Dash'U}/dL 0.2-1.0 [facility] pH Auto test strip (U)on pH (U) 6.0 [pH] 5.0-9.0 [facility] Lab Reportson 09-30-2023 Lab Reports [id number] Normal [facility] CT CHEST WO CONon 10-11-2022 CT CHEST WO CON EXAMINATION: CT CHEST WO CON HISTORY: Lung field abnormal COMPARISON: [...] by: LUCAS GOLDSTEIN Date: 2022-10-11 15:31 Normal [facility] CBC AUTO DIFFon 08-23-2022 BASO # 0.0 103/ul Normal 0.0-0.1 [facility] Comment on above: Performed By: #### C BC #### [facility] [address] [address] [address] Jesus White Basophils/100 WBC (Bld) 0.5 % Normal 0.2-2.0 [facility] Comment on above: Performed By: #### C BC #### [facility] [address] [address] [address] Jesus White EO # 0.2 103/ul Normal 0.0-0.7 [facility] Comment on above: Performed By: #### C BC #### [facility] [address] [place] [address] Dr. Jesus White Eosinophils/100 WBC (Bld) 2.2 % Normal 0.9-7.0 [facility] Comment on above: Performed By: #### C BC #### [facility] [address] [place] [address] Dr. Jesus White Erythrocyte distribution width (RBC) [Ratio] 13.3 % Normal 11.0-15.0 [facility] Comment on above: Performed By: #### C BC #### [facility] [address] [place] [address] Dr. Jesus White Hematocrit (Bld) [Volume fraction] 43.0 % Normal 42.0-54.0 [facility] Comment on above: Performed By: #### C BC #### [facility] [address] [place] [address] Dr. Jesus White Hemoglobin (Bld) [Mass/Vol] 14.4 g/dL Normal 14.0-18.0 [facility] Comment on above: Performed By: #### C BC #### [facility] [address] [place] [address] Dr. Jesus White IG # 0.02 10e3/ul Normal 0.00-0.03 [facility] Comment on above: Performed By: #### C BC #### [facility] [address] [place] [address] Dr. Jesus White IG % 0.2 % Normal 0.0-0.5 [facility] Comment on above: Performed By: #### C BC #### [facility] [address] [place] [address] Dr. Jesus White LYMPH # 3.0 103/ul Normal 1.2-3.8 [facility] Comment on above: Performed By: #### C BC #### [facility] [address] [place] [address] Dr. Jesus White Lymphocytes/100 WBC (Bld) 35.8 % Normal 20.5-60.0 [facility] Comment on above: Performed By: #### C BC #### [facility] [address] [place] [address] Dr. Jesus White MANUAL DIFF REQ NO Normal [facility] Comment on above: Performed By: #### C BC #### [facility] [address] [place] [address] Dr. Jesus White MCH (RBC) [Entitic mass] 30.6 pg Normal 25.9-34.0 [facility] Comment on above: Performed By: #### C BC #### [facility] [address] [place] [address] Dr. Jesus White MCHC (RBC) [Mass/Vol] 33.5 g/dL Normal 29.9-35.2 [facility] Comment on above: Performed By: #### C BC #### [facility] [address] [place] [address] Dr. Jesus White MCV (RBC) [Entitic vol] 91.5 fL Normal 80.0-94.0 [facility] Comment on above: Performed By: #### C BC #### [facility] [address] [place] [address] Dr. Jesus White MONO # 0.8 103/ul Normal 0.3-0.8 [facility] Comment on above: Performed By: #### C BC #### [facility] [address] [place] [address] Dr. Jesus White Monocytes/100 WBC (Bld) 9.1 % Normal 1.7-12.0 [facility] Comment on above: Performed By: #### C BC #### [facility] [address] [address] [address] Jesus White NEUT # 4.4 103/ul Normal 1.4-6.5 [facility] Comment on above: Performed By: #### C BC #### [facility] [address] [address] [address] Jesus White Neutrophils/100 WBC (Bld) 52.2 % Normal 43.0-75.0 [facility] Comment on above: Performed By: #### C BC #### [facility] [address] [address] [address] Jesus White Platelet mean volume (Bld) [Entitic vol] 9.8 fL Normal 9.5-13.5 [facility] Comment on above: Performed By: #### C BC #### [facility] [address] [place] [address] Dr. Jesus White PLT 236 103/ul Normal 150-450 [facility] Comment on above: Performed By: #### C BC #### [facility] [address] [place] [address] Dr. Jesus White RBC 4.70 106/ul Normal 4.70-6.10 [facility] Comment on above: Performed By: #### C BC #### [facility] [address] [place] [address] Dr. Jesus White WBC 8.4 103/ul Normal 4.0-11.0 [facility] Comment on above: Performed By: #### C BC #### [facility] [address] [place] [address] Dr. Jesus White LIPID PROFILEon 08-23-2022 CHOL-HDL RATIO NORM SEE BELOW Normal [facility] Comment on above: Result Comment: 3.3 - 4.4 LOW RISK 4.4 - 7.1 AVERAGE RISK 7.1 - 11.0 MODERATE RISK >11.0 HIGH RISK Performed By: #### C MP, LIPID #### [facility] [address] [address] [address] Jesus White Cholesterol [Mass/Vol] 121 mg/dL Normal <=200 [facility] Comment on above: Performed By: #### C MP, LIPID #### [facility] [address] [address] [address] Jesus White Cholesterol in HDL [Mass/Vol] 37 mg/dL Critically low 40-60 [facility] Comment on above: Performed By: #### C MP, LIPID #### [facility] [address] [address] [address] Jesus White Cholesterol in LDL [Mass/Vol] 59.6 mg/dL Normal [facility] Comment on above: Performed By: #### C MP, LIPID #### [facility] [address] [address] [address] Jesus White Cholesterol.total/Cho lesterol in HDL [Mass ratio] 3.3 {ratio} Normal [facility] Comment on above: Performed By: #### C MP, LIPID #### [facility] [address] [place] [address] Dr. Jesus White HDL NORMAL > or = 60 mg/dl - LOW CARDIOVASCULAR RISK <40 mg/dl - HIGH CARDIOVASCULAR RISK Normal [facility] Comment on above: Performed By: #### C MP, LIPID #### [facility] [address] [place] [address] Dr. Jesus White LDL CALC NORMAL SEE BELOW Normal [facility] Comment on above: Result Comment: <100 mg/dl OPTIMAL 100 - 129 mg/dl NEAR OR ABOVE OPTIMAL 130 - 159 mg/dl BORDERLINE HIGH 160 - 189 mg/dl HIGH >190 mg/dl VERY HIGH Performed By: #### C MP, LIPID #### [facility] [address] [place] [address] Dr. Jesus White Triglyceride [Mass/Vol] 122 mg/dL Normal <=150 [facility] Comment on above: Performed By: #### C MP, LIPID #### [facility] [address] [place] [address] Dr. Jesus White VLDL CALC 24.4 mg/dL Normal [facility] Comment on above: Performed By: #### C MP, LIPID #### [facility] [address] [address] [address] Jesus White PROF 14(COMP METB)on 023 Albumin [Mass/Vol] 3.8 g/dL Normal 3.4-5.0 [facility] Comment on above: Performed By: #### C MP, LIPID #### [facility] [address] [address] [address] Jesus White Albumin/Globulin [Mass ratio] 1.1 {ratio} Normal [facility] Comment on above: Performed By: #### C MP, LIPID #### [facility] [address] [address] [address] Jesus White ALP [Catalytic activity/Vol] 46 U/L Normal 46-116 [facility] Comment on above: Performed By: #### C MP, LIPID #### [facility] [address] [address] [address] Jesus White ALT [Catalytic activity/Vol] 37 U/L Normal 16-63 [facility] Comment on above: Performed By: #### C MP, LIPID #### [facility] [address] [address] [address] Jesus White Anion gap [Moles/Vol] 11.3 mmol/L Normal [facility] Comment on above: Performed By: #### C MP, LIPID #### [facility] [address] [address] [address] Jesus White AST [Catalytic activity/Vol] 28 U/L Normal 15-37 [facility] Comment on above: Performed By: #### C MP, LIPID #### [facility] [address] [address] [address] Jesus White Bilirubin [Mass/Vol] 0.5 mg/dL Normal 0.2-1.0 [facility] Comment on above: Performed By: #### C MP, LIPID #### [facility] [address] [address] [address] Jesus White Calcium [Mass/Vol] 9.5 mg/dL Normal 8.5-10.1 [facility] Comment on above: Performed By: #### C MP, LIPID #### [facility] [address] [address] [address] Jesus White Chloride [Moles/Vol] 104 mmol/L Normal 98-107 [facility] Comment on above: Performed By: #### C MP, LIPID #### [facility] [address] [place] [address] Dr. Jesus White CO2 [Moles/Vol] 28.9 mmol/L Normal 21.0-32.0 [facility] Comment on above: Performed By: #### C MP, LIPID #### [facility] [address] [place] [address] Dr. Jesus White Creatinine [Mass/Vol] 0.99 mg/dL Normal 0.70-1.30 [facility] Comment on above: Performed By: #### C MP, LIPID #### [facility] [address] [place] [address] Dr. Jesus White EGFR-AF PALAUAN >60 Normal >=60 [facility] Comment on above: Performed By: #### C MP, LIPID #### [facility] [address] [place] [address] Dr. Jesus White EGFR-NON AF PALAUAN >60 Normal >=60 [facility] Comment on above: Performed By: #### C MP, LIPID #### [facility] [address] [place] [address] Dr. Jesus White Globulin (S) [Mass/Vol] 3.6 g/dL Normal [facility] Comment on above: Performed By: #### C MP, LIPID #### [facility] [address] [place] [address] Dr. Jesus White Glucose [Mass/Vol] 92 mg/dL Normal 74-106 [facility] Comment on above: Performed By: #### C MP, LIPID #### [facility] [address] [place] [address] Dr. Jesus White Potassium [Moles/Vol] 4.2 mmol/L Normal 3.5-5.1 [facility] Comment on above: Performed By: #### C MP, LIPID #### [facility] [address] [place] [address] Dr. Jesus White Protein [Mass/Vol] 7.4 g/dL Normal 6.4-8.2 [facility] Comment on above: Performed By: #### C MP, LIPID #### [facility] [address] [address] [address] Jesus White Sodium [Moles/Vol] 140 mmol/L Normal 136-145 [facility] Comment on above: Performed By: #### C MP, LIPID #### [facility] [address] [address] [address] Jesus White Urea nitrogen [Mass/Vol] 12.0 mg/dL Normal 7.0-18.0 [facility] Comment on above: Performed By: #### C MP, LIPID #### [facility] [address] [address] [address] Jesus White Urea nitrogen/Creatinine [Mass ratio] 12.1 mg/mg Normal [facility] Comment on above: Performed By: #### C MP, LIPID #### [facility] [address] [address] [address] LUNG CANCER SCREENINGon [...] base suspected to represent infectious infiltrates or atelectasis/scarring . Tumor cannot be completely excluded. Follow-up CT chest in 2-3 months to document clearing is recommended. Electronically authenticated by: LUCAS GOLDSTEIN Date: 2022-07-05 12:53 Normal [facility] BLOOD GASES BTYon 04-08-2022 02 MODE ROOM AIR Normal [facility] Comment on above: Performed By: #### A BG ####[facility] [address] [address]. Jesus White ALLENS TEST Positive Normal [facility] Comment on above: Performed By: #### A BG ####[facility] [address] [place], [place] [address]Dr. Jesus White Base excess Calc (Bld) [Moles/Vol] -0.4000 mmol/L Normal -2.0-2.0 [facility] Comment on above: Performed By: #### A BG ####[facility] [address] [place], [place] [address]Dr. Jesus White BIPAP PRESSURE Normal [facility] Comment on above: Performed By: #### A BG ####[facility] [address] [place], [place] [address]Dr. Jesus White CPAP Normal [facility] Comment on above: Performed By: #### A BG ####[facility] [address] [place], [place] [address]Dr. Jesus White FIO2 Normal [facility] Comment on above: Performed By: #### A BG ####[facility] [address] [place], [place] [address]Dr. Jesus White HCO3 (Bld) [Moles/Vol] 24.7 mmol/L Normal 22.0-26.0 [facility] Comment on above: Performed By: #### A BG ####[facility] [address] [place], [place] [address]Dr. Jesus White LPM Normal [facility] Comment on above: Performed By: #### A BG ####[facility] [address] [address]Dr. Jesus White MINUTE VOLUME Normal [facility] Comment on above: Performed By: #### A BG ####[facility] [address] [address]Dr. Jesus White Oxygen (Bld) [Partial pressure] 75.3 mm[Hg] Critically low 80.0-100.0 [facility] Comment on above: Performed By: #### A BG ####[facility] [address] [place], [place] [address]Dr. Jesus White Oxygen saturation in Blood 94.7 % Critically low 95.0-100.0 [facility] Comment on above: Performed By: #### A BG ####[facility] [address] [place], [place] [address]Dr. Jesus White PCO2 42.0 mmHg Normal 35.0-45.0 [facility] Comment on above: Performed By: #### A BG ####[facility] [address] [place], [place] [address]Dr. Jesus White [facility]EEP [facility] Comment on above: Performed By: #### A BG ####[facility] [address] [place], [place] [address]Dr. Jesus White pH (Bld) 7.379 [pH] Normal 7.350-7.450 [facility] Comment on above: Performed By: #### A BG ####[facility] [address] [place], [place] [address]Dr. Jesus White PIP [facility] Comment on above: Performed By: #### A BG ####[facility] [address] [place], [place] [address]Dr. Jesus White PS [facility] Comment on above: Performed By: #### A BG ####[facility] [address] [place], [place] [address]Dr. Jesus White PUNCTURE SITE LR Normal [facility] Comment on above: Performed By: #### A BG ####[facility] [address] [address]Dr. Jesus White RATE Normal [facility] Comment on above: Performed By: #### A BG ####[facility] [address] [address]Dr. Jesus White VENT MODE Normal [facility] Comment on above: Performed By: #### A BG ####[facility] [address] [address]Dr. Jesus White [place] [facility] Comment on above: Performed By: #### A BG ####[facility] [address] [address]DrJordin White CBC AUTO DIFFon 04-08-2022 BASO # 0.1 103/ul Normal 0.0-0.1 [facility] Comment on above: Performed By: #### C BC #### [facility] [address] [place] [address] Dr. Jesus White Basophils/100 WBC (Bld) 0.6 % Normal 0.2-2.0 [facility] Comment on above: Performed By: #### C BC #### [facility] [address] [place] [address] Dr. Jesus White EO # 0.2 103/ul Normal 0.0-0.7 [facility] Comment on above: Performed By: #### C BC #### [facility] [address] [address] [address] Jesus White Eosinophils/100 WBC (Bld) 1.5 % Normal 0.9-7.0 [facility] Comment on above: Performed By: #### C BC #### [facility] [address] [place] [address] Dr. Jesus White Erythrocyte distribution width (RBC) [Ratio] 13.2 % Normal 11.0-15.0 [facility] Comment on above: Performed By: #### C BC #### [facility] [address] [place] [address] Dr. Jesus White Hematocrit (Bld) [Volume fraction] 41.7 % Critically low 42.0-54.0 [facility] Comment on above: Performed By: #### C BC #### [facility] [address] [place] [address] Dr. Jesus White Hemoglobin (Bld) [Mass/Vol] 14.3 g/dL Normal 14.0-18.0 [facility] Comment on above: Performed By: #### C BC #### [facility] [address] [place] [address] Dr. Jesus White IG # 0.03 10e3/ul Normal 0.00-0.03 [facility] Comment on above: Performed By: #### C BC #### [facility] [address] [place] [address] Dr. Jesus White IG % 0.3 % Normal 0.0-0.5 [facility] Comment on above: Performed By: #### C BC #### [facility] [address] [place] [address] Dr. Jesus White LYMPH # 5.6 103/ul Critically high 1.2-3.8 [facility] Comment on above: Performed By: #### C BC #### [facility] [address] [place] [address] Dr. Jesus White Lymphocytes/100 WBC (Bld) 57.0 % Normal 20.5-60.0 [facility] Comment on above: Performed By: #### C BC #### [facility] [address] [place] [address] Dr. Jesus White MANUAL DIFF REQ NO Normal [facility] Comment on above: Performed By: #### C BC #### [facility] [address] [place] [address] Dr. Jesus White MCH (RBC) [Entitic mass] 31.4 pg Normal 25.9-34.0 [facility] Comment on above: Performed By: #### C BC #### [facility] [address] [place] [address] Dr. Jesus White MCHC (RBC) [Mass/Vol] 34.3 g/dL Normal 29.9-35.2 [facility] Comment on above: Performed By: #### C BC #### [facility] [address] [place] [address] Dr. Jesus White MCV (RBC) [Entitic vol] 91.6 fL Normal 80.0-94.0 [facility] Comment on above: Performed By: #### C BC #### [facility] [address] [place] [address] Dr. Jesus White MONO # 0.5 103/ul Normal 0.3-0.8 [facility] Comment on above: Performed By: #### C BC #### [facility] [address] [place] [address] Dr. Jesus White Monocytes/100 WBC (Bld) 5.1 % Normal 1.7-12.0 [facility] Comment on above: Performed By: #### C BC #### [facility] [address] [place] [address] Dr. Jesus White NEUT # 3.5 103/ul Normal 1.4-6.5 [facility] Comment on above: Performed By: #### C BC #### [facility] [address] [place] [address] Dr. Jesus White Neutrophils/100 WBC (Bld) 35.5 % Critically low 43.0-75.0 [facility] Comment on above: Performed By: #### C BC #### [facility] [address] [place] [address] Dr. Jesus White Platelet mean volume (Bld) [Entitic vol] 9.5 fL Normal 9.5-13.5 [facility] Comment on above: Performed By: #### C BC #### [facility] [address] [place] [address] Dr. Jesus White PLT 222 103/ul Normal 150-450 [facility] Comment on above: Performed By: #### C BC #### [facility] [address] [place] [address] Dr. Jesus White RBC 4.55 106/ul Critically low 4.70-6.10 [facility] Comment on above: Performed By: #### C BC #### [facility] [address] [place], [place] [address] Dr. Jesus White WBC 9.8 103/ul Normal 4.0-11.0 [facility] Comment on above: Performed By: #### C BC #### [facility] [address] [place], [place] [address] STROKE HEAD WOon [...] ERNA LEON Date: 2022-04-08 18:50 Normal [facility]on SARS-CoV-2 (COVID-19) RNA PAUL+probe Ql (Unsp spec) Not detected Normal NOT DETECTED [facility] Comment on above: Result Comment: When diagnostic [...] for this test is supported by the Mechanical System Technician of Health and Human Service's declaration that [...] used). Performed By: #### C VDTBH #### [facility] [address] [address] [address] Jesus White ETHANOL (BLD ALC)on 04-08-20 22 ALC NOTE NOTE: 80 mg/dl is the legal limit for a blood alcohol level Normal [facility] Comment on above: Performed By: #### E TH ####[facility] [address] [address]Dr. eJsus White Ethanol [Mass/Vol] 344 mg/dL Normal [facility] Comment on above: Performed By: #### E TH ####[facility] [address] [address]Dr. Jesus White PROF 14(COMP METB)on 022 Albumin [Mass/Vol] 3.5 g/dL Normal 3.4-5.0 [facility] Comment on above: Performed By: #### C JORGE, HSTROPN #### [facility] [address] [place] [address] Dr. Jesus White Albumin/Globulin [Mass ratio] 1.0 {ratio} Normal [facility] Comment on above: Performed By: #### C JORGE, HSTROPN #### [facility] [address] [place] [address] Dr. Jesus White ALP [Catalytic activity/Vol] 41 U/L Critically low 46-116 [facility] Comment on above: Performed By: #### C JORGE, HSTROPN #### [facility] [address] [place] [address] Dr. Jesus White ALT [Catalytic activity/Vol] 28 U/L Normal 16-63 [facility] Comment on above: Performed By: #### C JORGE, HSTROPN #### [facility] [address] [place] [address] Dr. Jesus White Anion gap [Moles/Vol] 12.1 mmol/L Normal [facility] Comment on above: Performed By: #### C MP, HSTROPN #### [facility] [address] [address] [address] Jesus White AST [Catalytic activity/Vol] 19 U/L Normal 15-37 [facility] Comment on above: Performed By: #### C MP, HSTROPN #### [facility] [address] [address] [address] Jesus White Bilirubin [Mass/Vol] 0.3 mg/dL Normal 0.2-1.0 [facility] Comment on above: Performed By: #### C MP, HSTROPN #### [facility] [address] [place] [address] Dr. Jesus White Calcium [Mass/Vol] 8.8 mg/dL Normal 8.5-10.1 [facility] Comment on above: Performed By: #### C MP, HSTROPN #### [facility] [address] [place] [address] Dr. Jesus White Chloride [Moles/Vol] 105 mmol/L Normal 98-107 [facility] Comment on above: Performed By: #### C MP, HSTROPN #### [facility] [address] [address] [address] Jesus White CO2 [Moles/Vol] 24.8 mmol/L Normal 21.0-32.0 [facility] Comment on above: Performed By: #### C MP, HSTROPN #### [facility] [address] [place] [address] Dr. Jesus White Creatinine [Mass/Vol] 1.53 mg/dL Critically high 0.70-1.30 [facility] Comment on above: Performed By: #### C MP, HSTROPN #### [facility] [address] [place] [address] Dr. Jesus White EGFR-AF PALAUAN 55 mL/min/1.73m2 Critically low >=60 [facility] Comment on above: Result Comment: Prev iously reported as: (blank) On 04/08/2022 19:15 By MH01 Performed By: #### C MP, HSTROPN #### [facility] [address] [place] [address] Dr. Jesus White EGFR-NON AF PALAUAN 46 mL/min/1.73m2 Critically low >=60 [facility] Comment on above: Result Comment: Prev iously reported as: (blank) On 04/08/2022 19:15 By MH01 Performed By: #### C MP, HSTROPN #### [facility] [address] [place] [address] Dr. Jesus White Globulin (S) [Mass/Vol] 3.5 g/dL Normal [facility] Comment on above: Performed By: #### C MP, HSTROPN #### [facility] [address] [place] [address] Dr. Jesus White Glucose [Mass/Vol] 116 mg/dL Critically high 74-106 [facility] Comment on above: Performed By: #### C MP, HSTROPN #### [facility] [address] [place] [address] Dr. Jesus White Potassium [Moles/Vol] 3.9 mmol/L Normal 3.5-5.1 [facility] Comment on above: Performed By: #### C MP, HSTROPN #### [facility] [address] [place] [address] Dr. Jesus White Protein [Mass/Vol] 7.0 g/dL Normal 6.4-8.2 [facility] Comment on above: Performed By: #### C MP, HSTROPN #### [facility] [address] [place] [address] Dr. Jesus White Sodium [Moles/Vol] 138 mmol/L Normal 136-145 [facility] Comment on above: Performed By: #### C MP, HSTROPN #### [facility] [address] [place] [address] Dr. Jesus White Urea nitrogen [Mass/Vol] 17.0 mg/dL Normal 7.0-18.0 [facility] Comment on above: Performed By: #### C MP, HSTROPN #### [facility] [address] [place], [place] [id number] Dr. Jesus White Urea nitrogen/Creatinine [Mass ratio] 11.1 mg/mg Normal [facility] Comment on above: Performed By: #### C MP, HSTROPN #### [facility] [address] [address] [address] Jesus White PROTIMEon 04-08-2022 INR Coag (PPP) [Relative time] 1.00 {INR} Normal [facility] Comment on above: Performed By: #### P TT, PT ####[facility] [address] [address]Dr. Jesus White INR GUIDELINES SEE BELOW Normal The [facility] Comment on above: Result Comment: JULIET RED INR: 2.0 - 3.0 CONDITIONS NOT LISTED BELOW 2.5 - 3.5 FOR PROSTHETIC HEART VALVE REPLACEMENT 2.5 - 3.5 RECURRENT THROMBOSIS Performed By: #### P TT, PT ####[facility] [address] [address]Dr. Jesus White PT Coag (PPP) [Time] 10.8 s Normal 9.0-11.6 [facility] Comment on above: Performed By: #### P TT, PT ####[facility] [address] [address]Dr. Jesus White PTTon 04-08-2022 aPTT Coag (Bld) [Time] 24.8 s Normal 22.3-36.2 [facility] Comment on above: Performed By: #### P TT, PT ####[facility] [address] [address]DrJordin White TROPONIN, HIGH SENSITIVITYon 04-08-2022 HSTROP 16.7 pg/mL Normal 4.0-76.1 [facility] Comment on above: Result Comment: CUT- OFF POINTS HAVE BEEN ESTABLISHED BASED ON THE FOURTH UNIVERSAL DEFINITIONS OF MYOCARDIAL INFARCTION. THE UPPER REFERENCE LIMIT (URL) OF TROPONIN, DEFINED THE 99TH PERCENTILE OF cTnI DISTRIBUTION IN A REFERENCE POPULATION, HAS BEEN CONFIRMED THE DECISION THRESHOLD FOR OR DIAGNOSIS. Performed By: #### C MP, HSTROPN #### [facility] [address] [address] [address] Jesus White PROF CHEM 8 (BAS METB)on Anion gap [Moles/Vol] 13.3 mmol/L Normal [facility] Comment on above: Performed By: #### B MP #### [facility] [address] [place] [address] Dr. Jesus White Calcium [Mass/Vol] 9.7 mg/dL Normal 8.5-10.1 [facility] Comment on above: Performed By: #### B MP #### [facility] [address] [place] [address] Dr. Jesus White Chloride [Moles/Vol] 103 mmol/L Normal 98-107 [facility] Comment on above: Performed By: #### B MP #### [facility] [address] [place] [address] Dr. Jesus White CO2 [Moles/Vol] 28.4 mmol/L Normal 21.0-32.0 [facility] Comment on above: Performed By: #### B MP #### [facility] [address] [place] [address] Dr. Jesus White Creatinine [Mass/Vol] 1.21 mg/dL Normal 0.70-1.30 [facility] Comment on above: Performed By: #### B MP #### [facility] [address] [place] [address] Dr. Jesus White EGFR-AF PALAUAN >60 Normal >=60 [facility] Comment on above: Performed By: #### B MP #### [facility] [address] [place] [address] Dr. Jesus White EGFR-NON AF PALAUAN 60 mL/min/1.73m2 Normal >=60 [facility] Comment on above: Performed By: #### B MP #### [facility] [address] [place] [address] Dr. Jesus White Glucose [Mass/Vol] 95 mg/dL Normal 74-106 [facility] Comment on above: Performed By: #### B MP #### [facility] [address] [place] [address] Dr. Jesus White Potassium [Moles/Vol] 3.7 mmol/L Normal 3.5-5.1 [facility] Comment on above: Performed By: #### B MP #### [facility] [address] [address] [address] Jesus White Sodium [Moles/Vol] 141 mmol/L Normal 136-145 [facility] Comment on above: Performed By: #### B MP #### [facility] [address] [address] [address] Jesus White Urea nitrogen [Mass/Vol] 12.0 mg/dL Normal 7.0-18.0 [facility] Comment on above: Performed By: #### B MP #### [facility] [address] [address] [address] Jesus White Urea nitrogen/Creatinine [Mass ratio] 9.9 mg/mg Normal [facility] Comment on above: Performed By: #### B MP #### [facility] [address] [address] [address] Jesus White ER URINE PROFILEon 2 Bilirubin Ql (U) Negative Normal NEGATIVE [facility] Comment on above: Performed By: #### CALEB GOULD ####[facility] [address] [address]DrJordin White Clarity (U) CLEAR Normal CLEAR [facility] Comment on above: Performed By: #### VALERIO GOULDRO ####[facility] [address] [address]DrJordin White Color (U) LT. YELLOW Normal YELLOW [facility] Comment on above: Performed By: #### VALERIO GOULDRO ####[facility] [address] [address]DrJordin DAVED A micrscopic examination will be performed if indicated. Normal [facility] Comment on above: Performed By: #### VALERIO GOULDRO ####[facility] [address] [address]DrJordin White Glucose Ql (U) Negative Normal NEGATIVE [facility] Comment on above: Performed By: #### Júnior BARNES UMICRO ####[facility] [address] [address]Dr. Jesus White Hemoglobin Ql (U) Negative Normal NEGATIVE [facility] Comment on above: Performed By: #### Júnior BARNES UMICRO ####[facility] [address] [address]Dr. Jesus White Ketones Ql (U) Negative Normal NEGATIVE [facility] Comment on above: Performed By: #### Júnior BARNES UMICRO ####[facility] [address] [place], [place] [address]Dr. Jesus White LEUKOCYTES Negative Normal NEGATIVE [facility] Comment on above: Performed By: #### Júnior BARNES UMICRO ####[facility] [id number] [place], [place] [address]Dr. Jesus White Nitrite Ql (U) Negative Normal NEGATIVE [facility] Comment on above: Performed By: #### Júnior BARNES UMICRO ####[facility] [address] [place], [place] [address]Dr. Jesus Whiet pH (U) 6.0 [pH] Normal 5-9 [facility] Comment on above: Performed By: #### Júnior BARNES UMICRO ####[facility] [address] [place], [place] [address]Dr. Jesus White SPEC GRAVITY <=1.005 Abnormal 1.005-<=1.025 [facility] Comment on above: Performed By: #### Júnior BARNES UMICRO ####[facility] [address] [place], [place] [address]Dr. Carolliseth Christopher UA PROTEIN Negative Normal NEGATIVE/ TRACE [facility] Comment on above: Performed By: #### Júnior BARNES UMICRO ####[facility] [address] [address]Dr. Jesus White UR MICRO IND INDICATED Normal [facility] Comment on above: Performed By: #### Júnior BARNES UMICRO ####[facility] [address] [address]Dr. Jesus White Urobilinogen Qn (U) 0.2 {Dash'U}/dL Normal 0.2 - 1. 0 [facility] Comment on above: Performed By: #### Júnior BARNES UMICRO ####[facility] [address] [address]Dr. Jesus White URINE MICROSCOPIC ONLYon BACTERIA NONE SEEN Normal NONE SEEN [facility] Comment on above: Performed By: #### Júnior BARNES UMICRO ####[facility] [address] [place], [place] [address]Dr. Jesus White Bacteria identified Cx Nom (U) NOT INDICATED Normal [facility] Comment on above: Performed By: #### Júnior BARNES UMICRO ####[facility] [address] [place], [place] [address]Dr. Jesus White CAST NONE SEEN Normal NONE SEEN [facility] Comment on above: Performed By: #### Júnior BARNES UMICRO ####[facility] [address] [place], [place] [address]Dr. Jesus White Crystals LM Nom (Urine sed) NONE SEEN Normal NONE SEEN [facility] Comment on above: Performed By: #### Júnior BARNES UMICRO ####[facility] [address] [place], [place] [address]Dr. Jesus White Epithelial cells LM Ql (Urine sed) RARE Normal NONE SEEN /RARE [facility] Comment on above: Performed By: #### Júnior BARNES UMICRO ####[facility] [address] [place], [place] [address]Dr. Jesus White MUCOUS NONE SEEN Normal NONE SEEN [facility] Comment on above: Performed By: #### Júnior BARNES UMICRO ####[facility] [address] [address]Dr. Jesus White RBC NONE SEEN Abnormal 0-2 [facility] Comment on above: Performed By: #### Júnior BARNES UMICRO ####[facility] [address] [place], [place] [address]La. Jesus White WBC NONE SEEN Normal NONE SEEN [facility] Comment on above: Performed By: #### CALEB GOULD ####[facility] [address] [place], [place] [address]Jh. Jesus White US CRYSTAL DOP LEG LTon 01-02-20 22 US CRYSTAL DOP LEG LT Ultrasound venous [...] VARSHA BARNARD Date: 2022-01-01 08:49 Normal [facility] Vital Signs Date Time Vital Sign Value Performing Clinician Facility 10-17-2023 10:02-0400 Blood Pressure Location Carlos HOLLINS [facility] 10-17-2023 10:02-0400 Diastolic blood pressure 66 mm[Hg] Carlos HOLLINS [facility] 10-17-2023 10:02-0400 Heart rate 66 /min Carlos HOLLINS [facility] 10-17-2023 10:02-0400 Respiratory rate 18 /min Carlos HOLLINS [facility] 10-17-2023 10:02-0400 Systolic blood pressure 120 mm[Hg] Carlos HOLLINS [facility] 10-13-2023 13:170400 Body height 177.8 cm [facility] 10-13-2023 13:17-0400 Body mass index (BMI) [Ratio] 32.5 kg/m2 [facility] 10-13-2023 13:17-0400 Body temperature 97 [degF] [facility] 10-13-2023 13:17040 Body weight 102.96 kg [facility] 10-13-2023 13:17-0400 Diastolic blood pressure 70 mm[Hg] [facility] 10-13-2023 13:17-0400 Heart rate 74 /min [facility] 10-13-2023 13:170400 Respiratory rate 20 /min [facility] 10-13-2023 13:17-0400 SaO2% (BldA) [Mass fraction] 97 % [facility] 10-13-2023 13:17-0400 Systolic blood pressure 120 mm[Hg] [facility] 03-17-2023 15:20-0400 Body height 177.8 cm Jose Julien Other [facility] Other 03-17-2023 15:20-0400 Body mass index (BMI) [Ratio] 31.96 kg/m2 Jose Julien Other [facility] Other 03-17-2023 15:20-0400 Body temperature 96.9 [degF] Jose Julien Other [facility] Other 03-17-2023 15:20-0400 Body weight 101.06 kg Jose Julien Other [facility] Other 03-17-2023 15:20-0400 Diastolic blood pressure 73 mm[Hg] Jose Julien Other [facility] Other 03-17-2023 15:20-0400 Respiratory rate 18 /min Jose Julien Other [facility] Other 03-17-2023 15:20-0400 SaO2% (BldA) [Mass fraction] 98 % Jose Julien Other [facility] Other 03-17-2023 15:20-0400 Systolic blood pressure 134 mm[Hg] Jose Julien Other [facility] Other 09-30-2022 11:20-0400 Body height 177.8 cm Jose Julien Other [facility] Other 09-30-2022 11:20-0400 Body mass index (BMI) [Ratio] 33.6 kg/m2 Jose Julien Other [facility] Other 09-30-2022 11:20-0400 Body temperature 96.3 [degF] Jose Julien Other [facility] Other 09-30-2022 11:20-0400 Body weight 106.23 kg Jose Julien Other [facility] Other 09-30-2022 11:20-0400 Diastolic blood pressure 64 mm[Hg] Jose Julien Other [facility] Other 09-30-2022 11:20-0400 Respiratory rate 18 /min Jose Julien Other [facility] Other 09-30-2022 11:20-0400 SaO2% (BldA) [Mass fraction] 99 % Jose Julien Other [facility] Other 09-30-2022 11:20-0400 Systolic blood pressure 138 mm[Hg] Jose Julien Other [facility] Other 03-22-2022 14:00-0400 Body height 177.8 cm Jose Julien Other [facility] Other 03-22-2022 14:00-0400 Body mass index (BMI) [Ratio] 33.14 kg/m2 Jose Julien Other [facility] Other 03-22-2022 14:00-0400 Body temperature 95.9 [degF] Jose Julien Other [facility] Other 03-22-2022 14:00-0400 Body weight 104.78 kg Jose Julien Other [facility] Other 03-22-2022 14:00-0400 Diastolic blood pressure 70 mm[Hg] Jose Julien Other [facility] Other 03-22-2022 14:00-0400 Respiratory rate 18 /min Jose Julien Other [facility] Other 03-22-2022 14:00-0400 SaO2% (BldA) [Mass fraction] 97 % Jose Julien Other [facility] Other 03-22-2022 14:00-0400 Systolic blood pressure 119 mm[Hg] Jose Julien Other [facility] Other 06-18-2021 11:40-0500 Body height 177.8 cm Jose Julien Other [facility] Other 06-18-2021 11:40-0500 Body mass index (BMI) [Ratio] 37.22 kg/m2 Jose Julien Other [facility] Other 06-18-2021 11:40-0500 Body temperature 95.9 [degF] Jose Julien Other [facility] Other 06-18-2021 11:40-0500 Body weight 117.66 kg Jose Julien Other [facility] Other 06-18-2021 11:40-0500 Diastolic blood pressure 70 mm[Hg] Jose Julien Other [facility] Other 06-18-2021 11:40-0500 Respiratory rate 18 /min Jose Julien Other [facility] Other 06-18-2021 11:40-0500 SaO2% (BldA) [Mass fraction] 97 % Jose Julien Other [facility] Other 06-18-2021 11:40-0500 Systolic blood pressure 124 mm[Hg] Jose Julien Other [facility] Other Encounters Encounter Date Encounter Type Care Provider Facility Start: 01-16-2024 ambulatory Carlos HOLLINS Facility :[facility] Start: 11-24-2023 End: 11-24-2023 ambulatory SHAIKH KALIN Not Available Start: 10-17-2023 End: 10-18-2023 ambulatory SHAIKH KALIN Facility:[facility] Start: 10-17-2023 End: 10-17-2023 Patient encounter procedure Carlos HOLLINS [facility] Start: 10-13-2023 End: 10-13-2023 ambulatory [facility] Work Phone: Start: 10-13-2023 End: 10-13-2023 Patient encounter procedure [facility] Work Phone: Start: 10-04-2023 Non-patient / Non-visit [facility] [employer] Work Phone: Start: 09-28-2023 End: 09-28-2023 ambulatory PATEL FAWWAD Not Available Start: 08-23-2023 End: 08-23-2023 ambulatory PATEL FAWWAD Not Available Start: 05-10-2023 End: 05-10-2023 ambulatory PATEL FAWWAD Not Available Start: 03-17-2023 End: 03-17-2023 ambulatory Jose Julien Other [facility] [employer] Other Start: 03-17-2023 Office outpatient vi sit 15 minutes Jose Julien [facility] Start: 10-11-2022 End: 10-12-[address] CARLOS HOLLINS Facility:[facility] Start: 09-30-2022 End: 09-30-2022 ambulatory Jose Julien Other [facility] [employer] Other Start: 09-30-2022 Office outpatient vi sit 15 minutes Jose Julien [facility] Start: 08-23-2022 End: 08-24-2022 ambulatory PATEL H FAWWAD Facility:[facility] Start: 07-05-2022 End: 07-06-2022 ambulatory RUKHSANA SAMSA . Facility:[facility] Start: 04-08-2022 End: 04-08-[address] COLTEN Brenner Facility:[facility] Start: 03-24-2022 End: 03-25-2022 ambulatory RUKHSANA SAMSA . Facility:[facility] Start: 03-22-2022 End: 03-22-2022 ambulatory Jose Julien Other [facility] Other Start: 03-22-2022 Office outpatient vi sit 25 minutes Jose Julien [facility] Start: 02-16-2022 End: 02-17-2022 ambulatory Nancy KLEVERWaqasSARTHAK Facility:[facility] Start: 01-01-2022 End: 01-01-[address] LUNA DUFFY . Facility:[facility] Start: 06-21-2021 End: 06-21-2021 ambulatory Jose Julien Other [facility] Other Start: 06-21-2021 Telephone encounter Jose Julien [facility] Start: 06-18-2021 End: 06-18-2021 ambulatory Jose Julien Other [facility] Other Start: 06-18-2021 Office outpatient vi sit 25 minutes Jose Julien [facility] Procedures Date Procedure Procedure Detail Performing Clinician Start: 10-11-[address] WINIFRED HOLLINS Comment on above: Performed By: #### P SAD ####[address] [id number]. Jesus White Start: 03-24-2011 Brachytherapy Carlos PIZARRO Start: 06-06-2000 Excision of left kidney Carlos HOLLINS Cataract (disorder) Carlossabina HOLLINS Extraction of wisdom tooth G kerry HOLLINS History of hernia repair Gre delvisben HOLLINS Plan of Treatment Date Care Activity Detail Author Renal function 1999 panel - Serum or Plasma [facility] enter [facility] Immunizations Immunization Date Immunization Notes Care Provider Fa cility 03-17-2023 influenza virus vaccine, unspecified formulation Carlos HOLLINS [facility] 03-27-2022 influenza virus vaccine, unspecified formulation Carlos Bizzby [facility] 05-27-2021 SARS-CoV-2 (COVID-19 ) mRNA-1273 vaccine Carlos Bizzby [facility] Comment on above: Result Comment: [facility] 03-26-2021 influenza virus vaccine, unspecified formulation Carlos Bizzby [facility] 11-21-2020 SARS-CoV-2 (COVID-19 ) mRNA-1273 vaccine Carlos Bizzby [facility] 10-16-2020 SARS-CoV-2 (COVID-19 ) mRNA-1273 vaccine CarlosKeyVive [facility] 02-05-2020 influenza virus vaccine, unspecified formulation Carlos Bizzby [facility] 05-14-2014 influenza virus vaccine, unspecified formulation Carlos Bizzby [facility] Payers Date Payer Category Payer Medicaid [employer] [id number] 501 [id number] 1958 Medicare [id number] 1955 Unknown [id number] 1956 Unknown [id number] [id number] 1956 Unknown [id number] [id number] 1956 Unknown [id number] [id number] 1956 Unknown [id number] 2.16.840.1.391506.3.579.2.593 1956 Unknown [id number] 2.16.840.1.400673.3.579.2.593 1956 Unknown [id number] 2.16.840.1.269732.3.579.2.593 1956 Unknown [id number] 2.16.840.1.493563.3.579.2.593 1956 Unknown [id number] 2.16.840.1.427515.3.579.2.727 1956 Unknown [id number] 2.16.840.1.915557.3.579.2.727 1956 Unknown [id number] 2.16.840.1.232115.3.579.2.1259 1956 Unknown [id number] 2.16.840.1.605555.3.579.2.1259 1956 Unknown [id number] 2.16.840.1.027805.3.579.2.1259 1956 Unknown [id number] 2.16.840.1.925579.3.579.2.1259 Medicaid [employer] [id number] Self-pay Self Pay [id number] Unknown [employer] GHAZALA [id number] Social History Date Type Detail Facility Unknown if ever smoked [facility] Other Sex Assigned At [facility] Start: 10-13-2023 [facility] Start: 1955 Sex Assigned At Male F [facility] Start: 10-17-2023 Tobacco smoking status Light t obacco smoker (finding) [facility] Tobacco smoking status Never [facility] Functional Status Date Assessment Result Facility 10-17-2023 Functional Status N/A [facility] Clinical Notes 06-18-2021 to 10-17-2023 Note Date & Type Note Facility 10-17-2023 Hospital Discharg e instructions Patient Education 10/17/2023 10:35:18 Prostate Cancer Prostate Cancer The prostate is a small gland that produces fluid that makes up semen (seminal fluid). It is located below the bladder in men, in front of the rectum. Prostate cancer is the abnormal growth of cells in the prostate gland. What are the causes? The exact cause of this condition is not known. What increases the risk? You are more likely to develop this condition if: You are 65 years of age or older. You have a family history of prostate cancer. You have a family history of breast and ovarian cancer. You have genes that are passed from parent to child (inherited), such as BRCA1 and BRCA2. You have Ayon syndrome. men and men of descent are diagnosed with prostate cancer at higher rates than other men. The reasons for this are not well understood and are likely due to a combination of genetic and environmental factors. What are the signs or symptoms? Symptoms of this condition include: Problems with urination. This may include: ?A weak or interrupted flow of urine. ?Trouble starting or stopping urination. ?Trouble emptying the bladder all the way. ?The need to urinate more often, especially at night. Blood in urine or semen. Persistent pain or discomfort in the lower back, lower abdomen, or hips. Trouble getting an erection. Weakness or numbness in the legs or feet. How is this diagnosed? This condition can be diagnosed with: A digital rectal exam. For this exam, a health care provider inserts a gloved finger into the rectum to feel the prostate gland. A blood test called a prostate-specific antigen (PSA) test. A procedure in which a sample of tissue is taken from the prostate and checked under a microscope (prostate biopsy). An imaging test called transrectal ultrasonography. Once the condition is diagnosed, tests will be done to determine how far the cancer has spread. This is called staging the cancer. Staging may involve imaging tests, such as a bone scan, CT scan, PET scan, or MRI. Stages of prostate cancer The stages of prostate cancer are as follows: Stage 1 (I). At this stage, the cancer is found in the prostate only. The cancer is not visible on imaging tests, and it is usually found by accident, such as during prostate surgery. Stage 2 (II). At this stage, the cancer is more advanced than it is in stage 1, but the cancer has not spread outside the prostate. Stage 3 (III). At this stage, the cancer has spread beyond the outer layer of the prostate to nearby tissues. The cancer may be found in the seminal vesicles, which are near the bladder and the prostate. Stage 4 (IV). At this stage, the cancer has spread to other parts of the body, such as the lymph nodes, bones, bladder, rectum, liver, or lungs. Prostate cancer grading Prostate cancer is also graded according to how the cancer cells look under a microscope. This is called the Primitivo score and the total score can range from 6 10, indicating how likely it is that the cancer will spread (metastasize) to other parts of the body. The higher the score, the greater the likelihood that the cancer will spread. Wilder 6 or lower: This indicates that the cancer cells look similar to normal prostate cells (well differentiated). Primitivo 7: This indicates that the cancer cells look somewhat similar to normal prostate cells (moderately differentiated). Primitivo 8, 9, or 10: This indicates that the cancer cells look very different than normal prostate cells (poorly differentiated). How is this treated? Treatment for this condition depends on several factors, including the stage of the cancer, your age, personal preferences, and your overall health. Talk with your health care provider about treatment options that are recommended for you. Common treatments include: Observation for early stage prostate cancer (active surveillance). This involves having exams, blood tests, and in some cases, more biopsies. For some men, this is the only treatment needed. Surgery. Types of surgeries include: ?Open surgery (radical prostatectomy). In this surgery, a larger incision is made to remove the prostate. ?A laparoscopic radical prostatectomy. This is a surgery to remove the prostate and lymph nodes through several small incisions. It is often referred to as a minimally invasive surgery. ?A robotic radical prostatectomy. This is laparoscopic surgery to remove the prostate and lymph nodes with the help of robotic arms that are controlled by the surgeon. ?Cryoablation. This is surgery to freeze and destroy cancer cells. Radiation treatment. Types of radiation treatment include: ?External beam radiation. This type aims beams of radiation from outside the body at the prostate to destroy cancerous cells. ?Brachytherapy. This type uses radioactive needles, seeds, wires, or tubes that are implanted into the prostate gland. Like external beam radiation, brachytherapy destroys cancerous cells. An advantage is that this type of radiation limits the damage to surrounding tissue and has fewer side effects. Chemotherapy. This treatment kills cancer cells or stops them from multiplying. It kills both cancer cells and normal cells. Targeted therapy. This treatment uses medicines to kill cancer cells without damaging normal cells. Hormone treatment. This treatment involves taking medicines that act on testosterone, one of the male hormones, by: ?Stopping your body from producing testosterone. ?Blocking testosterone from reaching cancer cells. Follow these instructions at home: Lifestyle Do not use any products that contain nicotine or tobacco. These products include cigarettes, chewing tobacco, and vaping devices, such as e-cigarettes. If you need help quitting, ask your health care provider. Eat a healthy diet. To do this: ?Eat foods that are high in fiber. These include beans, whole grains, and fresh fruits and vegetables. ?Limit foods that are high in fat and sugar. These include fried or sweet foods. Treatment for prostate cancer may affect sexual function. If you have a partner, continue to have intimate moments. This may include touching, holding, hugging, and caressing your partner. Get plenty of sleep. Consider joining a support group for men who have prostate cancer. Meeting with a support group may help you learn to manage the stress of having cancer. General instructions Take [id number]-[id number] and prescription medicines only as told by your health care provider. If you have to go to the hospital, notify your cancer specialist (oncologist). Keep all follow-up visits. This is important. Where to find more information [place] [employer]: www.cancer.org [place] [employer]: www.cancer.net National Cancer [place]: www.cancer.gov Contact a health care provider if: You have new or increasing trouble urinating. You have new or increasing blood in your urine. You have new or increasing pain in your hips, back, or chest. Get help right away if: You have weakness or numbness in your legs. You cannot control urination or your bowel movements (incontinence). You have chills or a fever. Summary The prostate is a small gland that is involved in the production of semen. It is located below a man's bladder, in front of the rectum. Prostate cancer is the abnormal growth of cells in the prostate gland. Treatment for this condition depends on the stage of the cancer, your age, personal preferences, and your overall health. Talk with your health care provider about treatment options that are recommended for you. Consider joining a support group for men who have prostate cancer. Meeting with a support group may help you learn to manage the stress of having cancer. This information is not intended to replace advice given to you by your health care provider. Make sure you discuss any questions you have with your health care provider. Document Revised: 08/19/2021 Document Reviewed: 08/19/2021 [employer] Patient Education 2022 [employer]. Follow Up Care 10/15/2022 10:10:00 With:GURVINDER HENDRICKSON, Carlos Day, URL Address: [address] [place] [address]- When: Unknown [facility] 03-17-2023 Evaluation note Encounter Date Diagnosis Assessment [...] Monitor LFTs and lipid profile with PCP. frestyl Other 04-27-2023 Evaluation note* Encounter Date Diagnosis Assessment Notes Treatment Notes Treatment Clinical Notes Sep, Joseph hy kid w cr kid I-IV (ICD-10 - I12.9) Blood pressure is controlled. He appears to be euvolemic. Continue current medications. Sep, Chronic kidney disea se, stage III (moderate) (ICD-10 - N18.30) He [...] are within the goal. Sep, Solitary kidney (ICD -10 - Q60.0) He has a solitary right kidney. Sep, Hyperuricemia (ICD-1 0 - E79.0) He has hyperuricemia due to the CKD and reported to have gout. I have prescribed oral Allopurinol frestyl Other 10-17-2022 Evaluation note* Encounter Date Diagnosis Assessment Notes Treatment Notes Treatment Clinical Notes Mar, Joseph hy kid w cr kid I-IV (ICD-10 - I12.9) Blood pressure is controlled. He appears to be euvolemic. Continue current medications. Mar, Chronic kidney disea se, stage III (moderate) (ICD-10 - N18.30) He [...] are within the goal. Mar, Solitary kidney (ICD -10 - Q60.0) He has a solitary right kidney. Mar, Hyperuricemia (ICD-1 0 - E79.0) He has hyperuricemia due to the CKD and reported to have gout. I have prescribed oral Allopurinol frestyl Other 07-29-2022 NotePROCEDURE: XR FEMUR LT HISTORY: Pain within medial left thigh; no known injury COMPARISON: None. FINDINGS: BONES:No fracture, acute abnormality, or significant arthropathy. SOFT TISSUES:Moderate atherosclerotic disease. EFFUSION:None visible. OTHER: Prior radioactive seeding of the prostate. IMPRESSION: 1. No acute bone abnormality or significant degenerative joint disease. 2. No specific findings to account for patient's symptoms. Electronically authenticated by: LUCAS GOLDSTEIN Date: 2022-01-01 08:35[facility]01-13-2022 Evaluation note* Encounter Date Diagnosis Assessment Notes Treatment Notes Treatment Clinical Notes Jun, Joseph hy kid w cr kid I-IV (ICD-10 - I12.9) Blood pressure is controlled. He appears to be euvolemic. Continue current medications. Jun, Chronic kidney disea se, stage III (moderate) (ICD-10 - N18.30) He [...] are within the goal. Jun, Solitary kidney (ICD -10 - Q60.0) He has a solitary right kidney. frestyl Other Evaluation + Plan note Future Appointments Appointment Date:01/16/2024 09:45:00 AM Scheduled Provider:Carlos HOLLINS MD Location:[facility] Appointment Type:URO Office Visit Diagnostic Tests Pending * PSA Total 11/05/23 [facility] Evaluation noteNo InformationNoViXS Systems Other Evaluation note* Diagnosis Onset Date Resolution Status Anemia of renal disease acut e CKD (chronic kidney disease) stage 3, GFR 30-59 ml/min acute Hyperlipidemia acute [id number] acute Hyperuricemia acute Hypomagnesemia acute Secondary hyperparathyroidism acute Solitary kidney, acquired ac [place] [facility] Work Phone: [facility] general Narrative - ReportedNoSilicon [employer] Other [facility] general Narrative - Reported* Type Description Date Medical History Obstructive sleep apnea Medical History Hypoxia, sleep related Medical History Nicotine addiction Medical History heart murmur Medical History CHRONIC OBSTRUCTIVE PULMONARY DI SEASE Medical History CHRONIC KIDNEY DISEASE STAGE 3 [...] Hospitalization History CMV Hospitalization History BLOOD PRESSURE WAS 60/40 , DEHYDRATION 04/2021 frestyl Other [facility] general Narrative - Reported* Type Description Date Medical History Obstructive sleep apnea Medical History Hypoxia, sleep related Medical History Nicotine addiction Medical History heart murmur Medical History CHRONIC OBSTRUCTIVE PULMONARY DI SEASE Medical History CHRONIC KIDNEY DISEASE STAGE 3 [...] Hospitalization History CMV Hospitalization History BLOOD PRESSURE WAS 60/40 , DEHYDRATION 04/2021 frestyl Other History general Narrative - Reported* Type Description Date Medical History Obstructive sleep apnea Medical History Hypoxia, sleep related Medical History Nicotine addiction Medical History heart murmur Medical History CHRONIC OBSTRUCTIVE PULMONARY DI SEASE Medical History CHRONIC KIDNEY DISEASE STAGE 3 [...] Hospitalization History CMV Hospitalization History BLOOD PRESSURE WAS 60/40 , DEHYDRATION 04/2021 frestyl Other Hospital course Narrative No data available for this section [facility] Progress note No data available for this section [facility] Trudev Summary Purpose Family History No Family History Records Found Relationship Condition Age at Onset Recorded Date/T rory brother Hypertension Unknown father Diabetes mellitus Unknown Unknown Malignant neoplasm Unknown Not Specified Unknown Advance Directives No Advanced Directives Records Found Advance Directive Response Recorded Date/ Time Advance Directives No August 10 11:07am Chief Complaint and Reason for Visit Chief Complaint RENAL 6 month f/u Reason for Visit Anemia of renal dise ase CKD (chronic kidney disease) stage 3, GFR 30-59 ml/min Hyperlipidemia [id number] Hyperuricemia Hypomagnesemia Secondary hyperparathyroidism Solitary kidney, acquired Additional Source Comments REASON FOR VISIT (unrecogniz ed section and content) CKD and HTNCKD (unrecognized sect ion and content) No Status Records FoundNo Status Records FoundNo Status Records Found INFORMATION SOURCE (unrecogn ized section and content) DATE CREATED AUTHOR 11/12/2022 [facility] DATE CREATED AUTHOR AUTHOR'S ORGANIZ ATION 10/22/2023 [facility] DATE CREATED AUTHOR AUTHOR'S ORGANIZ ATION 11/25/2023 [facility] Care Teams (unrecognized sec tion and content) Team Status: Active Member Role Status Dates Shaikh Kalin MD Primary Care Provider Active Team Status: Active Member Role Status Dates Jose Victoria MD Attending Provider Active Start : October 04, 2023 Team Status: Inactive Member Role Status Dates Jose Victoria MD Attending Provider Active Start : October 13, 2023 End: October 13, 2023 Shaikh Kalin MD Primary Care Provider Active Start: October 13, 2023 End: October 13, 2023 Goals (unrecognized section and content) Goals may be documented in a n alternate section FOR RECORDS PERTAINING TO PATIENTS WHO ARE [...] BE BASED ON THE PRIMARY CLINICAL RECORDS. [employer] provides no warranty or guarantee of the accuracy or completeness of information in this document.
[2023-12-22 11:29] LABS: Prostate Specific Antigen Dx 0.23 ng/mL (<=4.00)
== END 2023-12-22 09:00 | disposition home or self-care (01) ==
LOC: LAB 09:05
PROVIDERS: PCP Internal Medicine; Visit Provider Urology
DX: Z85.46 Personal history of malignant neoplasm of prostate (principal)
CPT/HCPCS: 36415; 84153

== ENCOUNTER 2024-03-19 09:54 | Outpatient (OUT) | payer MEDICARE, SELFPAY ==
--- OUTSIDE RECORDS SUMMARY | 2024-03-19 10:12 | XMS_ITS | CCD ---
Author Organization [facility] Care Team Providers Care Pharmacy Picking Tech Name Role Phone Jose Victoria Unavailable DR CARLOS HOLLINS Consulting Unavailable COOK, PEGGY Attending Unavailable FAWWAD, PATEL H Primary Care Unavailable COOK, PEGGY Admitting Unavailable SAMSA ., RUKHSANA Admitting Unavailable ZIEBER, DR LUCAS Miller Consulting Unavailable SAMSA ., [...] CARRASCO Consulting Unavailable VARSHA BARNARD Consulting Unavailable HAY ., DR ABEL Admitting Unavailable HAY ., DR ABEL Attending Unavailable GRECHNY .ABHI Consulting Unavailabl e FAWWAD, PATEL H Primary Care Unavailable HAY ., DR ABEL Consulting Unavailable MARKER ., DR ROBERSON Consulting Unavailable ERNA LEON Consulting Unavailable SAMSA ., RUKHSANA Attending Unavailable FAWWAD, PATEL H Primary Care Unavailable SAMSA ., RUKHSANA Consulting Unavailable SAMSA ., RUKHSANA Admitting Unavailable SHAIKH QUINTEROS Primary Care Physician [phone] SHAIKH UQINTEROS Attending Unavailable SHAIKH QUINTEROS Attending Unavailable SHAIKH QUINTEROS Attending Unavailable SHAIKH QUINTEROS Attending Unavailable Carlos HOLLINS Attending Unavailable Carlos HOLLINS Attending Unavailable Carlos HOLLINS Attending Unavailable SHAIKH QUINTEROS Primary Care Unavailable Allergies Allergy Classification Reported Allergen(s) Allergy Type Date of Onset Reaction(s) Facility (1 source) No Known Medication Allergies; Translations: [No Known Medication Allergies] Propensity to adverse reactions (disorder) [facility] Repository Medications Current Medications Medication Drug Class(es) Dates Sig (Normalized) Sig (Original) [id number] 200 actuat albuterol 0.09 mg/actuat metered dose [...] hrs Active allopurinol 100 mg oral tablet (5 sources) Xanthine Oxidase Inhibitor Start: 01-17-2024 allopurinol 100 mg T ab 100 mg = 1 tab(s) Start Date: 01/17/24 Status: Ordered Start: 10-13-2023 take 100 mg by mouth once tadeo y Allopurinol Active 100 MG PO Daily October [...] day Active atorvastatin 40 mg oral tablet (8 sources) HMG-CoA Reductase Inhibitor Start: 11-01-2019 take 40 mg by mouth once daily atorvastatin 40 mg, Oral, Daily, Refills(s) 0 Start Date: 11/01/19 Status: Ordered ergocalciferol 0.05 mg oral capsule (5 sources) Provitamin D2 Compound take 1 capsule by mouth every twenty-four hours Vitamin D (Ergocalciferol) 50 MCG (1999 UT) 1 capsule Orally Once a day Active furosemide 20 mg oral tablet (8 sources) Loop Diuretic Start: 11-01-2019 take 1 mg by mouth once daily furosemide 20 mg Tab mg tab(s), Oral, Daily, Refills(s) 0 Start Date: 11/01/19 Status: Ordered Ipratropium (2 sources) Anticholinergic Start: 11-01-2019 Atrovent HFA Inhalation, QID, [...] Active losartan potassium 50 mg oral tablet (2 sources) Angiotensin 2 Receptor Ellis Start: 08-21-2021 take 1 tablet by mouth once daily losartan 50 mg Tab 50 mg = 1 tab(s), Oral, Daily Start Date: 08/21/21 Status: Ordered metoprolol tartrate 25 mg oral tablet (8 sources) beta-Adrenergic Ellis Start: 10-13-2023 take 25 [...] 0.4mg 1 Sublingual Every 5min x3 Active omeprazole 40 mg delayed release oral capsule (1 source) Proton Pump Inhibitor Start: 01-17-2024 omeprazole 40 mg Cap-DR 40 mg = 1 cap(s) Start Date: 01/17/24 Status: Ordered tamsulosin hydrochloride 0.4 mg oral capsule (8 sources) alpha-Adrenergic Ellis Start: 01-17-2024 End: 01-11-2025 take 1 capsule by mouth once daily tamsulosin 0.4 mg Cap 0.4 mg = 1 cap(s), Oral, Daily, X 90 day(s), # 90 cap(s), Refills(s) 3, Pharmacy: [id number], 177, cm, 01/17/24 8:22:00 EDT, Height/Length Dosing, 102.2, kg, 01/17/24 8:22:00 EDT, Weight Dosing Start Date: 01/17/24 Stop Date: 01/11/25 Status: Ordered Start: 11-01-2019 take 0.4 mg by mouth once tadeo y Tamsulosin Active 0.4 MG PO Daily October 13, 2023 12:00am Vitamin D3 (2 sources) Start: 11-01-2019 Vitamin D3 Ref ills(s) 0 Start Date: 11/01/19 Status: Ordered Problems Active Problems Problem Classification Problem Date Documented Date Episodic/Chronic Alcohol-related disorders (1 source) Alcohol abuse with intoxication, unspecified; Translations: [ALCOHOL ABUSE WITH INTOXICATION UNS] Onset: 2 Chronic Cancer of kidney and renal pelvis (2 sources) Renal cell carcinoma 11-01-2019 Chronic Cancer of kidney and renal pelvis (4 sources) History of malignant neoplasm of kidney; Translations: [Personal history of other malignant neoplasm of kidney] Onset: 4 Episodic Cancer of prostate (2 sources) Malignant tumor of prostate 11-01-2019 Chronic Cancer of prostate (8 sources) Personal history of malignant neoplasm of [...] Translations: [Dyslipidemia] Onset: 3 Chronic Essential hypertension (5 sources) Essential (primary) hypertension; Translations: [Hypertensive disorder] Onset: 3 11-01-2019 Chronic Genitourinary congenital anomalies (9 sources) Renal agenesis and dysgenesis; 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, unilateral] Onset: 2 Resolved: 2 Chronic Genitourinary symptoms and ill-defined conditions (6 sources) History of urinary tract infection; Translations: [Increased frequency of urination] 11-09-2019 Episodic Hyperplasia of prostate (6 sources) Benign prostatic hypertrophy with outflow obstruction; [...] conditions (not mental disorders or infectious disease) (10 sources) Other specified abnormal findings of blood [...] absence of kidney] 10-13-2023 Episodic Substance-related disorders (12 sources) Nicotine dependence; Translations: [Nicotine dependence, unspecified, uncomplicated] Onset: 2 Chronic Comment on above: Added secondary to d ocumentation in Social History. 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] Onset: 04-12-2022 Episodic Other connective tissue disease (1 source) Pain in left leg; Translations: [PAIN IN LEFT LEG] Onset: 01-04-2022 Episodic Other nervous system disorders (1 source) Slurred speech; Translations: [SLURRED SPEECH] Onset: 04-12-2022 Episodic Residual codes; unclassified (4 sources) Altered mental status, unspecified; Translations: [ALTERED MENTAL STATUS UNSPECIFIED] Onset: 04-08-2022 Episodic Results Test Name Value Interpretation Reference Range Facility Ambulatory Visit Summaryon 0 01-17-2024 Ambulatory Visit Summary Ambulatory Visit Summary ABBEY IRVING :1955 Visit Date:01/17/2024 Ambulatory Visit Instructions Your Diagnosis Rising PSA following treatment for malignant neoplasm of prostate Personal history of prostate cancer BPH with obstruction/lower urinary tract symptoms Personal history of renal cell carcinoma Your Care Team Attending Physician - Carlos HOLLINS MD Primary Care Physician - SHAIKH QUINTEROS MD This Is Your Medications List tamsulosin (tamsulosin 0.4 mg Cap) Contact prescribing physician if questions or concerns allopurinol (allopurinol 100 mg Tab) atorvastatin cholecalciferol (Vitamin D3) furosemide (furosemide 20 mg Tab) ipratropium (Atrovent HFA) losartan (losartan 50 mg Tab) metoprolol (metoprolol 25 mg ER Tab) omeprazole (omeprazole 40 mg Cap-DR) Procedures Performed Brachytherapy (03/24/2011), Left nephrectomy (06/06/2000), Cataract, Extraction of wisdom tooth, History of hernia repair. Discharge Vitals Heart Rate (Peripheral) 62 Respiratory Rate 19 Blood Pressure 151/84 Height 177 cm Height 70 in Weight 102.2 kg Weight 224.84 lb BMI 32.62 What to do next Scheduled Follow-Up Appointments Tuesday 9:30 AM EST With: Carlos HOLLINS MD Where: [facility] [place] [address] [place] [address]- You Need to Schedule the Following Appointments Follow Up with Carlos HOLLINS MD, URL When: Where: [address] [address]- Medications What How Much When Instructions Changed tamsulosin (tamsulosin 0.4 mg Cap) 1 Capsules By Mouth Every day Duration: 90 Days Pickup at [id number] Unchanged allopurinol (allopurinol 100 mg Tab) 1 Tablets Contact prescribing physician if questions or concerns Unchanged atorvastatin 40 Milligram By Mouth Every day Contact prescribing physician if questions or concerns Unchanged cholecalciferol (Vitamin D3) Contact prescribing physician if questions or concerns Unchanged furosemide (furosemide 20 mg Tab) By Mouth Every day Contact prescribing physician if questions or concerns Unchanged ipratropium (Atrovent HFA) Inhalation 4 times a day Contact prescribing physician if questions or concerns Unchanged losartan (losartan 50 mg Tab) 1 Tablets By Mouth Every day Contact prescribing physician if questions or concerns Unchanged metoprolol (metoprolol 25 mg ER Tab) 1 Tablets By Mouth Every day Contact prescribing physician if questions or concerns Unchanged omeprazole (omeprazole 40 mg Cap-DR) 1 Capsules Contact prescribing physician if questions or concerns Pharmacy Information [id number]: [address] [place] [id number] [phone] Allergies No Known Medication Allergies Problems Ongoing - Any problem that you are currently receiving treatment for. Anticoagulated BPH with obstruction/lower urinary tract symptoms Frequency of urination History of UTI Hypertension Personal history of prostate cancer Personal history of renal cell carcinoma Rising PSA following treatment for malignant neoplasm of prostate Smoker Urgency of urination Historical - Any problem that you are no longer receiving treatment for. BPH - benign prostatic hyperplasia Cancer of prostate Elevated PSA Hypertension Renal cell carcinoma Patient Survey You may receive a survey via text or e-mail asking about your office visit. Please share your experience with us by completing your survey. We appreciate your feedback and thank you for choosing us for your care. Education Materials Cancer Screening for Men A cancer screening [...] continuing until age 75. Your health care pr (more content not included)... Normal [facility] Urology Office/Clinic Noteon 01-17-2024 Urology Office/Clinic Note Urology Office/Clinic Note Chief Complaint 3 month with PSA HPI Staff 3-4 mos with PSA. Previous Dx: Rising PSA following treatment for malignant neoplasm of prostate, Personal history of prostate cancer, BPH with obstruction/lower urinary tract symptoms, Personal history of renal cell carcinoma. S/P L Nephrectomy 2000. *Flomax 0.4 mg qd. PSA: 10/11/22 - <0.13 09/30/23 - 0.90 12/22/23 - 0.23 Dysuria: no Incomplete bladder emptying: no Hematuria: no Frequency: 2-3 hours or longer Urgency: yes Nocturia: maybe 2x's Stream: good stream Post void dripping: occasionally Wearing pads/ Depends: _ Urge incontinence: occasionally Stress incontinence: occasionally Incontinence without Sensory Awareness: no Abdominal pain: no Flank pain: no History of Present Illness Tests reviewed: reviewed UA, PSA I have reviewed the previous health record information and history for this patient from Dr. Hollins. I have reviewed and verified the staff HPI to be accurate for this encounter. Review of Systems PHQ Score Initial [...] HPI. Physical Exam Vitals & Measurements HR: 62(Peripheral) RR: 19 BP: 151/84 HT: 70 in HT: 177 cm WT: 102.2 kg WT: 224.84 lb BMI: 32.62 General Appearance: alert, no distress, well nourished, well developed male. Assessment/Plan Pt here with his today. 1. Rising PSA following treatment for malignant neoplasm of prostate (R97.21: Rising PSA following treatment for malignant neoplasm of prostate) PSA: 10/26/19 - 0.05 08/10/21 - 0.05 10/11/22 - <0.13 09/30/23 - 0.90 12/22/23 - 0.23 Pt believes he had a Cleves 7. Completed at [facility]. [1] S/p brachytherapy 03/24/11. PSA decreased which is favorable, however, his PSA should ideally be zero/undetectable. Generally when there is prostate ca recurrence, the PSA will cont to rise. Follow up 4 mos with PSA or sooner if needed. Pt understands and agrees with plan. 2. Personal history of prostate cancer (Z85.46: Personal history of malignant neoplasm of prostate) See #1. 3. BPH with obstruction/lower urinary tract symptoms (N40.1: Benign prostatic hyperplasia with lower urinary tract symptoms) UA today negative for blood and infection. IPSS 10 (8). Taking Flomax 0.4 mg qd. Refill sent to [facility]. 4. Personal history of renal cell carcinoma (Z85.528: Personal history of other malignant neoplasm of kidney) S/p L nephrectomy 2000. CT AP w IV con 08/12/23 [external provider ordered] status post left nephrectomy. No evidence of lymphadenopathy. There is a tiny hypodensity in the posterior right kidney likely representing a tiny cyst. Overall the patient is happy to hear that the PSA level has decreased from 0.9-0.2. This is significant and that at this point I feel we need to monitor versus do a PSMA PET scan. Would like to monitor his PSA closely, thus the recommendation for a 4-month follow-up. He and his agree with the plan. She is under going treatment for invasive bladder cancer.. Refilled Flomax without doses changes indicated. Follow-up With When Contact Information GUR[facility] HENDRICKSON, Carlos Day, URL [address] [place] [id number]- Additional Instructions: 4 mos with PSA Patient Education Cancer Screening for Men I, Laurel Bradley, personally scribed for Dr. Hollins on 01/17/2024 08:30:59. . Documentation recorded by the scribe, Laurel Bradley, accurately reflects the services(s) I performed and decisions made by me. Authenticated by Dr. Hollins on 01/17/2024 08:34:12. Portions of this record may have been created with voice recognition artificial intelligence software, specifically [employer], [employer] and or [employer]. Substitutions may have occurred due to the inherent limitations of voice recognition and artificial intelligence software. Problem List/Past Medical History Ongoing Anticoagulated BPH with obstruction/lower urinary tract symptoms Frequency of urination History of UTI Hypertension Personal history of prostate cancer Personal history of renal cell carcinoma Rising PSA following treatment for malignant neoplasm of prostate Smoker Urgency of urination Historical BPH - benign prostatic hyperplasia Cancer of prostate Elevated PSA Hypertension Renal cell carcinoma Procedure/Surgical History Brachytherapy (03/24/2011), Left nephrect (more content not included)... Normal [facility] Comment on above: Result Comment: Elec tronically Signed By: Carlos HOLLINS MD\.br\Date and Time Signed: 01/17/24 08:35 EDT\.br\Electronically Co-Signed By: Laurel Bradley\.br\Date and Time Co-Signed: 01/17/24 08:31 EDT ED Note-Physicianon 10-20-19 ED Note-Physician [id number] 0#1.00TIFF Normal [facility] Lab Reportson 10-20-2023 Lab Reports [id number] 9#1.00TIFF [facility] Lab Reports [id number] 2#1.00TIFF [facility] RAD - CT Reporton 10-20-2023 RAD - CT Report [id number] 5#1.00TIFF [facility] Screenson 10-20-2023 Screens [id number] #1.00TIFF [facility] Ambulatory Visit Summaryon 0 10-17-2023 Ambulatory Visit Summary ABBEY IRVING :1955 Visit Date:10/17/2023 Ambulatory Visit Instructions Your Diagnosis Rising PSA following treatment for malignant neoplasm of prostate Personal history of prostate cancer BPH with obstruction/lower urinary tract symptoms Personal history of renal cell carcinoma Your Care Team Attending Physician - Carlos HOLLINS MD Primary Care Physician - KALIN HENDRICKSON, [facility] This Is Your Medications List Contact prescribing [...] Carlos HOLLINS MD Where: [facility] Patient Educationon 10-17-19 24 Patient Education Oncology [...] under a microscope. This is called the Cleves score and the total score can range from 6?10, indicating how likely it is that the cancer will spread (metastasize) to other parts of the body. The higher the score, the greater the likelihood that the cancer will spread. ? Cleves 6 or lower: This indicates that the cancer cells look similar to normal prostate cells (well differentiated). ? Cleves 7: This indicates that the cancer cells look somewhat similar to normal prostate cells (moderately differentiated). ? Primitivo 8, 9, or 10: This indicates [...] external be (more content not included)... Normal [facility] Urology Office/Clinic Noteon 10-17-2023 Urology Office/Clinic Note Chief Complaint 1 year follow up HPI Staff 1 year follow up w/PSA *Taking Flomax 0.4 mg qd S/P Lt Nephrectomy 2000 Pt was seen at [facility] on 09/06/23 due to left rib pain. BUN 36, Creatinine 1.09 10/04/23. BUN 26. Creatinine 1.33 09/06/23 CT SCAN 08/12/23 PSA: 10/26/19 - 0.05 08/10/21 - 0.05 10/11/22 - <0.13 09/30/23 - 0.90 Dysuria: denies pain or burning Incomplete bladder emptying: denies Hematuria: yes 6 weeks ago, went to [facility], vomiting blood Frequency: 3x a day [...] with voice recognition artificial intelligence software, specifically Wally, [employer] and or [employer]. Substitutions may have occurred due to the inherent limitations of voice recognition and artificial intelligence software. 1. Rising PSA following treatment for malignant neoplasm of prostate (R97.21: Rising PSA following treatment for malignant neoplasm of prostate) PSA: 10/26/19 - 0.05 08/10/21 - 0.05 10/11/22 - <0.13 09/30/23 - 0.90 S/p brachytherapy 03/24/11. Pt believes he had a Cleves 7. Completed at [facility]. Rise in PSA is concerning given [...] adenocarcinoma the prostate, previously treated at the [facility] with prostate brachytherapy now has a [...] dosage changes. Follow-up With When Contact Information GURVINDER HENDRICKSON, Carlos Day, URL [address] [address]- Additional Instructions: 3 mos w/ PSA Patient Education Prostate Cancer I, Tala Lugo, personally scribed for Dr. Hollins on 10/17/2023 10:42:59. . Documentation recorded by the scribe, Tala Lugo, accurately reflects the services(s) I performed and decisions made by me. Authenticated by Dr. Hollins on 10/17/2023 10:47:47. Problem List/Past (more content not included)... Normal [facility] Comment on above: Result Comment: Elec tronically Signed By: Carlos HOLLINS MD\.br\Date and Time Signed: 10/17/23 10:50 EDT Automated epithelial cells c ount in urine sediment (number/area)on 10-04-2023 Epithelial cells Auto (Urine sed) [#/Area] NONE SEEN #/LPF NONE/RARE [facility] Automated leukocytes count i n urine sediment (number/area)on 10-04-2023 WBC Auto (Urine sed) [#/Area] NONE SEEN #/HPF 0-2 [facility] Automated urine specific gra vity by refractometryon 10-04-2023 Specific gravity Refractometry automated (U) [Rel density] 1.025 1.005-1.025 [facility] Bilirubin Auto test strip (U ) [Mass/Vol]on 10-04-2023 Bilirubin (U) [Mass/Vol] Negative NEGATIVE [facility] Casts typing in urine sedime nt by light microscopyon 10-04-2023 Casts LM Nom (Urine sed) NONE SEEN #/LPF NONE SEEN [facility] Color Auto (U)on 10-04-2023 Color (U) YELLOW YELLOW [facility] Erythrocyte distribution wid th Auto (RBC) [Ratio]on 10-04-2023 Erythrocyte distribution width (RBC) [Ratio] 13.5 % 11.0-15.0 [facility] Estimated glomerular filtrat ion rate (GFR) non- Americanon 10-04-2023 GFR/1.73 sq M.predicted among non-blacks MDRD (S/P/Bld) [Vol rate/Area] mL/min/{1.73_m2} >=60 [facility] Hematocrit Auto (Bld) [Volum e fraction]on 10-04-2023 Hematocrit (Bld) [Volume fraction] 38.9 % 42.0-54.0 [facility] Hemoglobin [Mass/volume] in Bloodon 10-04-2023 Hemoglobin (Bld) [Mass/Vol] 13.2 g/dL 14.0-18.0 [facility] Iron binding capacity [Mass/ volume] in Serum or Plasmaon 10-04-2023 Iron binding capacity [Mass/Vol] 274.0 ug/dL 250.0-450.0 [facility] Iron saturation [Mass Fracti on] in Serum or Plasmaon 10-04-2023 Iron saturation [Mass fraction] 29.2 % [facility] Ketones Auto test strip (U) [Mass/Vol]on 10-04-2023 Ketones (U) [Mass/Vol] Negative NEGATIVE [facility] Laboratory - Chemistry and C hemistry - challengeon 10-04-2023 Albumin [Mass/Vol] 3.6 g/dL 3.4-5.0 [facility] Calcium [Mass/Vol] 9.4 mg/dL 8.5-10.1 [facility] Chloride [Moles/Vol] 104 mmol/L 98-107 [facility] CO2 [Moles/Vol] 24.4 mmol/L 21.0-32.0 [facility] Creatinine [Mass/Vol] 1.09 mg/dL 0.70-1.30 [facility] Ferritin [Mass/Vol] 257.0 ng/mL 26.0-388.0 [facility] GFR/1.73 sq M.predicted MDRD (S/P/Bld) [Vol rate/Area] mL/min/{1.73_m2} >=60 [facility] Glucose [Mass/Vol] 117 mg/dL 74-106 [facility] Iron [Mass/Vol] 80.0 ug/dL 65.0-175.0 [facility] Potassium [Moles/Vol] 3.9 mmol/L 3.5-5.1 [facility] Sodium [Moles/Vol] 139 mmol/L 136-145 [facility] Urate [Mass/Vol] 5.6 mg/dL 3.5-7.2 [facility] Urea nitrogen [Mass/Vol] 36.0 mg/dL 7.0-18.0 [facility] Urea nitrogen/Creatinine [Mass ratio] 33.0 mg/mg [facility] Laboratory - Urinalysison Protein (U) [Mass/Vol] 16.2 mg/dL <=11.9 [facility] Leukocytes [#/volume] correc yoandy for nucleated erythrocytes in Blood by Automated counon 10-04-2023 WBC corrected for nucl RBC Auto (Bld) [#/Vol] 11.9 10 3/uL 4.0-11.0 [facility] MCH Auto (RBC) [Entitic mass ]on 10-04-2023 MCH (RBC) [Entitic mass] 31.6 pg 25.9-34.0 [facility] MCHC Auto (RBC) [Mass/Vol]on 10-04-2023 MCHC (RBC) [Mass/Vol] 33.9 g/dL 29.9-35.2 [facility] MCV Auto (RBC) [Entitic vol] on 10-04-2023 MCV (RBC) [Entitic vol] 93.1 fL 80.0-94.0 [facility] Mucus LM Ql (Urine sed)on Mucus Ql (Urine sed) NONE SEEN NONE SEEN [facility] No Panel Informationon 10-03 25-Hydroxy Vitamin D Total 29.7 ng/mL [facility] Comment on above: <20 ng/mL Vit D defi cient20-<30 ng/mL Vit D [id number] ng/mL Vit D sufficient>100 ng/mL Potential Toxicity Parathyroid Hormone (Intact) 35 pg/mL 15-65 [facility] Comment on above: Performed at: [address] [id number] Director: Raymundo Wynn PhD, Phone: [phone] Phosphorus Level 4.4 mg/dL 2.6-4.7 [facility] Urine Random Creatinine 102.05 mg/dL 20.00-300.00 [facility] Platelet mean volume Auto (B ld) [Entitic vol]on 10-04-2023 Platelet mean volume (Bld) [Entitic vol] 10.5 fL 9.5-13.5 [facility] Platelets Auto (Bld) [#/Vol] on 10-04-2023 Platelets (Bld) [#/Vol] 244 10 3/uL 150-450 [facility] Protein Auto test strip (U) [Mass/Vol]on 10-04-2023 Protein (U) [Mass/Vol] Negative NEG/TRACE [facility] RBC Auto (Bld) [#/Vol]on RBC (Bld) [#/Vol] 4.18 10 6/uL 4.70-6.10 [facility] Serum or plasma anion gap de terminationon 10-04-2023 Anion gap [Moles/Vol] 14.5 mmol/[facility] Specific gravity Auto test s trip (U) [Rel density]on 10-04-2023 Specific gravity (U) [Rel density] CLEAR CLEAR [facility] Urine bacteria detection by automated methodon 10-04-2023 Bacteria Auto Ql (U) NONE SEEN #/HPF NONE SEEN [facility] Urine glucose measurement by test strip (mass/volume)on 10-04-2023 Glucose Test strip (U) [Mass/Vol] Negative NEGATIVE [facility] Urine hemoglobin detection b y automated test stripon 10-04-2023 Hemoglobin Auto test strip Ql (U) Negative NEGATIVE [facility] Urine nitrite detection by a utomated test stripon 10-04-2023 Nitrite Auto test strip Ql (U) Negative NEGATIVE [facility] Urine protein/creatinine rat ioon 10-04-2023 Protein/Creatinine (U) [Ratio] 0.16 [facility] Urine sediment crystal ident ification by light microscopyon 10-04-2023 Crystals LM Nom (Urine sed) None Seen #/HPF None Seen [facility] Urine sediment leukocyte cou nt by microscopy (number/high power field)on 10-04-2023 WBC LM.HPF (Urine sed) [#/Area] 0-2 #/HPF NONE SEEN [facility] Urobilinogen Auto test strip (U) [Mass/Vol]on 10-04-2023 Urobilinogen Qn (U) 0.2 {Dash'U}/dL 0.2-1.0 [facility] pH Auto test strip (U)on pH (U) 6.0 [pH] 5.0-9.0 [facility] Lab Reportson 09-30-2023 Lab Reports [id number] Normal [facility] CT CHEST WO CONon 10-11-2022 [...] LUCAS GOLDSTEIN Date: 2022-10-11 15:31 Normal [facility] CBC AUTO DIFFon 08-23-2022 BASO # 0.0 103/ul Normal 0.0-0.1 [facility] Comment on above: Performed By: #### C BC #### [facility] [address] [place] [address] Dr. Jesus White Basophils/100 WBC (Bld) 0.5 % Normal 0.2-2.0 [facility] Comment on above: Performed By: #### C BC #### [facility] [address] [place] [address] Dr. Jesus White EO # 0.2 103/ul Normal 0.0-0.7 [facility] Comment on above: Performed By: #### C BC #### [facility] [address] [place] [address] Dr. Jesus White Eosinophils/100 WBC (Bld) 2.2 % Normal 0.9-7.0 [facility] Comment on above: Performed By: #### C BC #### [facility] [address] [place] [address] Dr. Jesus White Erythrocyte distribution width (RBC) [Ratio] 13.3 % Normal 11.0-15.0 [facility] Comment on above: Performed By: #### C BC #### [facility] [address] [place] [address] Dr. Jesus White Hematocrit (Bld) [Volume fraction] 43.0 % Normal 42.0-54.0 [facility] Comment on above: Performed By: #### C BC #### [facility] [address] [place] [address] Dr. Jesus White Hemoglobin (Bld) [Mass/Vol] 14.4 g/dL Normal 14.0-18.0 [facility] Comment on above: Performed By: #### C BC #### [facility] [address] [place] [address] Dr. Jesus White IG # 0.02 10e3/ul Normal 0.00-0.03 [facility] Comment on above: Performed By: #### C BC #### [facility] [address] [place] [address] Dr. Jesus White IG % 0.2 % Normal 0.0-0.5 [facility] Comment on above: Performed By: #### C BC #### [facility] [address] [place] [address] Dr. Jesus White LYMPH # 3.0 103/ul Normal 1.2-3.8 [facility] Comment on above: Performed By: #### C BC #### [facility] [address] [place] [address] Dr. Jesus White Lymphocytes/100 WBC (Bld) 35.8 % Normal 20.5-60.0 [facility] Comment on above: Performed By: #### C BC #### [facility] [address] [place] [address] Dr. Jesus White MANUAL DIFF REQ NO Normal [facility] Comment on above: Performed By: #### C BC #### [facility] [address] [place] [address] Dr. Jesus White MCH (RBC) [Entitic mass] 30.6 pg Normal 25.9-34.0 [facility] Comment on above: Performed By: #### C BC #### [facility] [address] [place] [address] Dr. Jesus White MCHC (RBC) [Mass/Vol] 33.5 g/dL Normal 29.9-35.2 [facility] Comment on above: Performed By: #### C BC #### [facility] [address] [place] [address] Dr. Jesus White MCV (RBC) [Entitic vol] 91.5 fL Normal 80.0-94.0 [facility] Comment on above: Performed By: #### C BC #### [facility] [address] [place] [address] Dr. Jesus White MONO # 0.8 103/ul Normal 0.3-0.8 [facility] Comment on above: Performed By: #### C BC #### [facility] [address] [place] [address] Dr. Jesus White Monocytes/100 WBC (Bld) 9.1 % Normal 1.7-12.0 [facility] Comment on above: Performed By: #### C BC #### [facility] [address] [place] [address] Dr. Jesus White NEUT # 4.4 103/ul Normal 1.4-6.5 [facility] Comment on above: Performed By: #### C BC #### [facility] [address] [place] [address] Dr. Jesus White Neutrophils/100 WBC (Bld) 52.2 % Normal 43.0-75.0 [facility] Comment on above: Performed By: #### C BC #### [facility] [address] [place] [address] Dr. Jesus White Platelet mean volume (Bld) [Entitic vol] 9.8 fL Normal 9.5-13.5 [facility] Comment on above: Performed By: #### C BC #### [facility] [address] [place] [address] Dr. Jesus White PLT 236 103/ul Normal 150-450 [facility] Comment on above: Performed By: #### C BC #### [facility] [address] [place] [address] Dr. Jesus White RBC 4.70 106/ul Normal 4.70-6.10 [facility] Comment on above: Performed By: #### C BC #### [facility] [address] [place] [address] Dr. Jesus White WBC 8.4 103/ul Normal 4.0-11.0 [facility] Comment on above: Performed By: #### C BC #### [facility] [address] [place] [address] Dr. Jesus White LIPID PROFILEon 08-23-2022 CHOL-HDL RATIO NORM SEE BELOW Normal [facility] Comment on above: Result Comment: 3.3 - 4.4 LOW RISK 4.4 - 7.1 AVERAGE RISK 7.1 - 11.0 MODERATE RISK >11.0 HIGH RISK Performed By: #### C MP, LIPID #### [facility] [address] [place] [address] Dr. Jesus White Cholesterol [Mass/Vol] 121 mg/dL Normal <=200 [facility] Comment on above: Performed By: #### C MP, LIPID #### [facility] [address] [address] [address] Jesus White Cholesterol in HDL [Mass/Vol] 37 mg/dL Critically low 40-60 [facility] Comment on above: Performed By: #### C MP, LIPID #### [facility] [address] [address] [address] Jesus White Cholesterol in LDL [Mass/Vol] 59.6 mg/dL Normal [facility] Comment on above: Performed By: #### C MP, LIPID #### [facility] [address] [address] [address] Jesus White Cholesterol.total/Cho lesterol in HDL [Mass ratio] 3.3 {ratio} Normal [facility] Comment on above: Performed By: #### C MP, LIPID #### [facility] [address] [address] [address] Jesus White HDL NORMAL > or = 60 mg/dl - LOW CARDIOVASCULAR RISK <40 mg/dl - HIGH CARDIOVASCULAR RISK Normal [facility] Comment on above: Performed By: #### C MP, LIPID #### [facility] [address] [address] [address] Jesus White LDL CALC NORMAL SEE BELOW Normal [facility] Comment on above: Result Comment: <100 mg/dl OPTIMAL 100 - 129 mg/dl NEAR OR ABOVE OPTIMAL 130 - 159 mg/dl BORDERLINE HIGH 160 - 189 mg/dl HIGH >190 mg/dl VERY HIGH Performed By: #### C MP, LIPID #### [facility] [address] [address] [address] Jesus White Triglyceride [Mass/Vol] 122 mg/dL Normal <=150 [facility] Comment on above: Performed By: #### C MP, LIPID #### [facility] [address] [address] [address] Jesus White VLDL CALC 24.4 mg/dL Normal [facility] Comment on above: Performed By: #### C MP, LIPID #### [facility] [address] [address] [address] Jesus White PROF 14(COMP METB)on 03-20-2 023 Albumin [Mass/Vol] 3.8 g/dL Normal 3.4-5.0 [facility] Comment on above: Performed By: #### C MP, LIPID #### [facility] [address] [place] [address] Dr. Jesus White Albumin/Globulin [Mass ratio] 1.1 {ratio} Normal [facility] Comment on above: Performed By: #### C MP, LIPID #### [facility] [address] [address] [address] Jesus White ALP [Catalytic activity/Vol] 46 U/L Normal 46-116 [facility] Comment on above: Performed By: #### C MP, LIPID #### [facility] [address] [place] [address] Dr. Jesus White ALT [Catalytic activity/Vol] 37 U/L Normal 16-63 [facility] Comment on above: Performed By: #### C MP, LIPID #### [facility] [address] [place] [address] Dr. Jesus White Anion gap [Moles/Vol] 11.3 mmol/L Normal [facility] Comment on above: Performed By: #### C MP, LIPID #### [facility] [address] [place] [address] Dr. Jesus White AST [Catalytic activity/Vol] 28 U/L Normal 15-37 [facility] Comment on above: Performed By: #### C MP, LIPID #### [facility] [address] [place] [address] Dr. Jesus White Bilirubin [Mass/Vol] 0.5 mg/dL Normal 0.2-1.0 [facility] Comment on above: Performed By: #### C MP, LIPID #### [facility] [address] [place] [address] Dr. Jesus White Calcium [Mass/Vol] 9.5 mg/dL Normal 8.5-10.1 [facility] Comment on above: Performed By: #### C MP, LIPID #### [facility] [address] [place] [address] Dr. Jesus White Chloride [Moles/Vol] 104 mmol/L Normal 98-107 [facility] Comment on above: Performed By: #### C MP, LIPID #### [facility] [address] [place] [address] Dr. Jesus White CO2 [Moles/Vol] 28.9 mmol/L Normal 21.0-32.0 [facility] Comment on above: Performed By: #### C MP, LIPID #### [facility] [address] [place] [address] Dr. Jesus White Creatinine [Mass/Vol] 0.99 mg/dL Normal 0.70-1.30 [facility] Comment on above: Performed By: #### C MP, LIPID #### [facility] [address] [place] [address] Dr. Jesus White EGFR-AF CANADIAN >60 Normal >=60 [facility] Comment on above: Performed By: #### C MP, LIPID #### [facility] [address] [place] [address] Dr. Jesus White EGFR-NON AF CANADIAN >60 Normal >=60 [facility] Comment on above: Performed By: #### C MP, LIPID #### [facility] [address] [place] [address] Dr. Jesus White Globulin (S) [Mass/Vol] 3.6 g/dL Normal [facility] Comment on above: Performed By: #### C MP, LIPID #### [facility] [address] [place] [address] Dr. Jesus White Glucose [Mass/Vol] 92 mg/dL Normal 74-106 [facility] Comment on above: Performed By: #### C MP, LIPID #### [facility] [address] [place] [address] Dr. Jesus White Potassium [Moles/Vol] 4.2 mmol/L Normal 3.5-5.1 [facility] Comment on above: Performed By: #### C MP, LIPID #### [facility] [address] [place] [address] Dr. Jesus White Protein [Mass/Vol] 7.4 g/dL Normal 6.4-8.2 [facility] Comment on above: Performed By: #### C MP, LIPID #### [facility] [address] [place], [place] [address] Dr. Jesus White Sodium [Moles/Vol] 140 mmol/L Normal 136-145 [facility] Comment on above: Performed By: #### C MP, LIPID #### [facility] [address] [place], [place] [address] Dr. Jesus White Urea nitrogen [Mass/Vol] 12.0 mg/dL Normal 7.0-18.0 [facility] Comment on above: Performed By: #### C MP, LIPID #### [facility] [address] [address] [address] Jesus White Urea nitrogen/Creatinine [Mass ratio] 12.1 mg/mg Normal [facility] Comment on above: Performed By: #### C MP, LIPID #### [facility] [address] [address] [address] LUNG CANCER SCREENINGon [...] by: LUCAS GOLDSTEIN Date: 2022-07-05 12:53 Normal [facility] BLOOD GASES BTYon 04-08-2022 02 MODE ROOM AIR Normal [facility] Comment on above: Performed By: #### A BG ####[facility] [address] [address]. Jesus White ALLENS TEST Positive Normal [facility] Comment on above: Performed By: #### A BG ####[facility] [address] [address]Dr. Jesus White Base excess Calc (Bld) [Moles/Vol] -0.4000 mmol/L Normal -2.0-2.0 [facility] Comment on above: Performed By: #### A BG ####[facility] [address] [address]Dr. Jesus White BIPAP PRESSURE Normal [facility] Comment on above: Performed By: #### A BG ####[facility] [address] [place], [place] [address]Dr. Jesus White CPAP Normal [facility] Comment on above: Performed By: #### A BG ####[facility] [address] [place], [place] [address]Dr. Jesus White FIO2 Normal [facility] Comment on above: Performed By: #### A BG ####[facility] [address] [place], [place] [address]Dr. Jesus White HCO3 (Bld) [Moles/Vol] 24.7 mmol/L Normal 22.0-26.0 [facility] Comment on above: Performed By: #### A BG ####[facility] [address] [place], [place] [address]Dr. Jesus White LPM Normal [facility] Comment on above: Performed By: #### A BG ####[facility] [address] [address]Dr. Jesus White MINUTE VOLUME Normal [facility] Comment on above: Performed By: #### A BG ####[facility] [address] [address]Dr. Jesus White Oxygen (Bld) [Partial pressure] 75.3 mm[Hg] Critically low 80.0-100.0 [facility] Comment on above: Performed By: #### A BG ####[facility] [address] [place], [place] [address]Dr. Jesus White Oxygen saturation in Blood 94.7 % Critically low 95.0-100.0 [facility] Comment on above: Performed By: #### A BG ####[facility] [address] [place], [place] [address]Dr. Jesus White PCO2 42.0 mmHg Normal 35.0-45.0 [facility] Comment on above: Performed By: #### A BG ####[facility] [address] [place], [place] [address]Dr. Jesus White PEEP [facility] Comment on above: Performed By: #### A BG ####[facility] [address] [place], [place] [address]Dr. Jesus White pH (Bld) 7.379 [pH] Normal 7.350-7.450 [facility] Comment on above: Performed By: #### A BG ####[facility] [address] [place], [place] [address]Dr. Jesus White PIP [facility] Comment on above: Performed By: #### A BG ####[facility] [address] [place], [place] [address]Dr. Jesus White PS [facility] Comment on above: Performed By: #### A BG ####[facility] [address] [place], [place] [address]Dr. Jesus White PUNCTURE SITE LR Normal [facility] Comment on above: Performed By: #### A BG ####[facility] [address] [id number]. Jesus White RATE Normal [facility] Comment on above: Performed By: #### A BG ####[facility] [address] [id number]. Jesus White VENT MODE Normal [facility] Comment on above: Performed By: #### A BG ####[facility] [address] [address]Dr. Jesus White [place] Normal [facility] Comment on above: Performed By: #### A BG ####[facility] [address] [id number]. Jesus White CBC AUTO DIFFon 04-08-2022 BASO # 0.1 103/ul Normal 0.0-0.1 [facility] Comment on above: Performed By: #### C BC #### [facility] [address] [address] [address] Jesus White Basophils/100 WBC (Bld) 0.6 % Normal 0.2-2.0 [facility] Comment on above: Performed By: #### C BC #### [facility] [address] [address] [address] Jesus White EO # 0.2 103/ul Normal 0.0-0.7 [facility] Comment on above: Performed By: #### C BC #### [facility] [address] [address] [address] Jesus White Eosinophils/100 WBC (Bld) 1.5 % Normal 0.9-7.0 [facility] Comment on above: Performed By: #### C BC #### [facility] [address] [address] [address] Jesus White Erythrocyte distribution width (RBC) [Ratio] 13.2 % Normal 11.0-15.0 [facility] Comment on above: Performed By: #### C BC #### [facility] [address] [address] [address] Jesus White Hematocrit (Bld) [Volume fraction] 41.7 % Critically low 42.0-54.0 [facility] Comment on above: Performed By: #### C BC #### [facility] [address] [address] [address] Jesus White Hemoglobin (Bld) [Mass/Vol] 14.3 g/dL Normal 14.0-18.0 [facility] Comment on above: Performed By: #### C BC #### [facility] [address] [address] [address] Jesus White IG # 0.03 10e3/ul Normal 0.00-0.03 [facility] Comment on above: Performed By: #### C BC #### [facility] [address] [address] [address] Jesus White IG % 0.3 % Normal 0.0-0.5 [facility] Comment on above: Performed By: #### C BC #### [facility] [address] [place] [address] Dr. Jesus White LYMPH # 5.6 103/ul Critically high 1.2-3.8 [facility] Comment on above: Performed By: #### C BC #### [facility] [address] [address] [address] Jesus White Lymphocytes/100 WBC (Bld) 57.0 % Normal 20.5-60.0 [facility] Comment on above: Performed By: #### C BC #### [facility] [address] [place] [address] Dr. Jesus White MANUAL DIFF REQ NO Normal [facility] Comment on above: Performed By: #### C BC #### [facility] [address] [place] [address] Dr. Jesus White MCH (RBC) [Entitic mass] 31.4 pg Normal 25.9-34.0 [facility] Comment on above: Performed By: #### C BC #### [facility] [address] [address] [address] Jesus White MCHC (RBC) [Mass/Vol] 34.3 g/dL Normal 29.9-35.2 [facility] Comment on above: Performed By: #### C BC #### [facility] [address] [address] [address] Jesus White MCV (RBC) [Entitic vol] 91.6 fL Normal 80.0-94.0 [facility] Comment on above: Performed By: #### C BC #### [facility] [address] [address] [address] Jesus White MONO # 0.5 103/ul Normal 0.3-0.8 [facility] Comment on above: Performed By: #### C BC #### [facility] [address] [address] [address] Jesus White Monocytes/100 WBC (Bld) 5.1 % Normal 1.7-12.0 [facility] Comment on above: Performed By: #### C BC #### [facility] [address] [place] [address] Dr. Jesus White NEUT # 3.5 103/ul Normal 1.4-6.5 [facility] Comment on above: Performed By: #### C BC #### [facility] [address] [place] [address] Dr. Jesus White Neutrophils/100 WBC (Bld) 35.5 % Critically low 43.0-75.0 [facility] Comment on above: Performed By: #### C BC #### [facility] [address] [place] [address] Dr. Jesus White Platelet mean volume (Bld) [Entitic vol] 9.5 fL Normal 9.5-13.5 [facility] Comment on above: Performed By: #### C BC #### [facility] [address] [place] [address] Dr. Jesus White PLT 222 103/ul Normal 150-450 [facility] Comment on above: Performed By: #### C BC #### [facility] [address] [address] [address] Jesus White RBC 4.55 106/ul Critically low 4.70-6.10 [facility] Comment on above: Performed By: #### C BC #### [facility] [address] [place], [place] [address] Dr. Jesus White WBC 9.8 103/ul Normal 4.0-11.0 [facility] Comment on above: Performed By: #### C BC #### [facility] [address] [place], [place] [address] STROKE HEAD WOon [...] ERNA LEON Date: 2022-04-08 18:50 Normal [facility] Covid-19 PCR (CVDTB)on SARS-CoV-2 (COVID-19) RNA PAUL+probe Ql (Unsp spec) Not detected Normal NOT DETECTED [facility] Comment on above: Result Comment: When [...] for this test is supported by the [place] of [employer] and Human Service's declaration that [...] used). Performed By: #### C VDTBH #### [facility] [address] [address] [address] Jesus White ETHANOL (BLD ALC)on 04-08-20 22 ALC NOTE NOTE: 80 mg/dl is the legal limit for a blood alcohol level Normal [facility] Comment on above: Performed By: #### E TH ####[facility] [address] [id number]. Jesus White Ethanol [Mass/Vol] 344 mg/dL Normal [facility] Comment on above: Performed By: #### E TH ####[facility] [address] [id number]. Jesus White PROF 14(COMP METB)on 022 Albumin [Mass/Vol] 3.5 g/dL Normal 3.4-5.0 [facility] Comment on above: Performed By: #### C JORGE HSTROPN #### [facility] [address] [address] [address] Jesus White Albumin/Globulin [Mass ratio] 1.0 {ratio} Normal [facility] Comment on above: Performed By: #### C JORGE HSTROPN #### [facility] [address] [address] [address] Jesus White ALP [Catalytic activity/Vol] 41 U/L Critically low 46-116 [facility] Comment on above: Performed By: #### C JORGE HSTROPN #### [facility] [address] [address] [address] Jesus White ALT [Catalytic activity/Vol] 28 U/L Normal 16-63 [facility] Comment on above: Performed By: #### C JORGE HSTROPN #### [facility] [address] [place] [address] Dr. Jesus White Anion gap [Moles/Vol] 12.1 mmol/L Normal [facility] Comment on above: Performed By: #### C JORGE HSTROPN #### [facility] [address] [address] [address] Jesus White AST [Catalytic activity/Vol] 19 U/L Normal 15-37 [facility] Comment on above: Performed By: #### C MP, HSTROPN #### [facility] [address] [place] [address] Dr. Jesus White Bilirubin [Mass/Vol] 0.3 mg/dL Normal 0.2-1.0 [facility] [facility] Comment on above: Performed By: #### C MP, HSTROPN #### [facility] [address] [place] [address] Dr. Jesus White Calcium [Mass/Vol] 8.8 mg/dL Normal 8.5-10.1 [facility] Comment on above: Performed By: #### C MP, HSTROPN #### [facility] [address] [place] [address] Dr. Jesus White Chloride [Moles/Vol] 105 mmol/L Normal 98-107 [facility] Comment on above: Performed By: #### C MP, HSTROPN #### [facility] [address] [place] [address] Dr. Jesus White CO2 [Moles/Vol] 24.8 mmol/L Normal 21.0-32.[address] [facility] Comment on above: Performed By: #### C MP, HSTROPN #### [facility] [address] [place] [address] Dr. Jesus White Creatinine [Mass/Vol] 1.53 mg/dL Critically high 0.70-1.30 [facility] Comment on above: Performed By: #### C MP, HSTROPN #### [facility] [address] [place] [address] Dr. Jesus White EGFR-AF CANADIAN 55 mL/min/1.73m2 Critically low >=60 [facility] Comment on above: Result Comment: Prev iously reported as: (blank) On 04/08/2022 19:15 By MH01 Performed By: #### C MP, HSTROPN #### [facility] [address] [place] [address] Dr. Jesus White EGFR-NON AF CANADIAN 46 mL/min/1.73m2 Critically low >=60 [facility] Comment on above: Result Comment: Prev iously reported as: (blank) On 04/08/2022 19:15 By [facility] Performed By: #### C MP, HSTROPN #### [facility] [address] [address] [address] Jesus White Globulin (S) [Mass/Vol] 3.5 g/dL Normal [facility] Comment on above: Performed By: #### C MP, HSTROPN #### [facility] [address] [address] [address] Jesus White Glucose [Mass/Vol] 116 mg/dL Critically high 74-106 [facility] Comment on above: Performed By: #### C MP, HSTROPN #### [facility] [address] [place] [address] Dr. Jesus White Potassium [Moles/Vol] 3.9 mmol/L Normal 3.5-5.1 [facility] Comment on above: Performed By: #### C MP, HSTROPN #### [facility] [address] [address] [address] Jesus White Protein [Mass/Vol] 7.0 g/dL Normal 6.4-8.2 [facility] Comment on above: Performed By: #### C MP, HSTROPN #### [facility] [address] [address] [address] Jesus White Sodium [Moles/Vol] 138 mmol/L Normal 136-145 [facility] Comment on above: Performed By: #### C MP, HSTROPN #### [facility] [address] [address] [address] Jesus White Urea nitrogen [Mass/Vol] 17.0 mg/dL Normal 7.0-18.0 [facility] Comment on above: Performed By: #### C MP, HSTROPN #### [facility] [address] [address] [address] Jesus White Urea nitrogen/Creatinine [Mass ratio] 11.1 mg/mg Normal [facility] Comment on above: Performed By: #### C MP, HSTROPN #### [facility] [address] [address] [address] Jesus White PROTIMEon 04-08-2022 INR Coag (PPP) [Relative time] 1.00 {INR} Normal [facility] Comment on above: Performed By: #### P TT, PT ####[facility] [address] [address]DrJordin White INR GUIDELINES SEE BELOW Normal [facility] Comment on above: Result Comment: JULIET RED INR: 2.0 - 3.0 CONDITIONS NOT LISTED BELOW 2.5 - 3.5 FOR PROSTHETIC HEART VALVE REPLACEMENT 2.5 - 3.5 RECURRENT THROMBOSIS Performed By: #### P TT, PT ####[facility] [address] [address]Dr. Jesus White PT Coag (PPP) [Time] 10.8 s Normal 9.0-11.6 [facility] Comment on above: Performed By: #### P TT, PT ####[facility] [address] [address]Dr. Jesus White PTTon 04-08-2022 aPTT Coag (Bld) [Time] 24.8 s Normal 22.3-36.2 [facility] Comment on above: Performed By: #### P TT, PT ####[facility] [address] [address]DrJordin White TROPONIN, HIGH SENSITIVITYon 04-08-2022 HSTROP 16.7 pg/mL Normal 4.0-76.1 [facility] Comment on above: Result Comment: CUT- OFF POINTS HAVE BEEN ESTABLISHED BASED ON THE FOURTH UNIVERSAL DEFINITIONS OF MYOCARDIAL INFARCTION. THE UPPER REFERENCE LIMIT (URL) OF TROPONIN, DEFINED THE 99TH PERCENTILE OF cTnI DISTRIBUTION IN A REFERENCE POPULATION, HAS BEEN CONFIRMED THE DECISION THRESHOLD FOR [place] DIAGNOSIS. Performed By: #### C MP, HSTROPN #### [facility] [address] [address] [address] Jesus White PROF CHEM 8 (BAS METB)on Anion gap [Moles/Vol] 13.3 mmol/L Normal [facility] Comment on above: Performed By: #### B MP #### [facility] [address] [address] [address] Jeuss White Calcium [Mass/Vol] 9.7 mg/dL Normal 8.5-10.1 [facility] Comment on above: Performed By: #### B MP #### [facility] [address] [address] [address] Jesus White Chloride [Moles/Vol] 103 mmol/L Normal 98-107 [facility] Comment on above: Performed By: #### B MP #### [facility] [address] [address] [address] Jesus White CO2 [Moles/Vol] 28.4 mmol/L Normal 21.0-32.0 [facility] Comment on above: Performed By: #### B MP #### [facility] [address] [address] [address] Jesus White Creatinine [Mass/Vol] 1.21 mg/dL Normal 0.70-1.30 [facility] Comment on above: Performed By: #### B MP #### [facility] [address] [place] [address] Dr. Jesus White EGFR-AF CANADIAN >60 Normal >=60 [facility] Comment on above: Performed By: #### B MP #### [facility] [address] [address] [address] Jesus White EGFR-NON AF CANADIAN 60 mL/min/1.73m2 Normal >=60 [facility] Comment on above: Performed By: #### B MP #### [facility] [address] [address] [address] Jesus White Glucose [Mass/Vol] 95 mg/dL Normal 74-106 [facility] Comment on above: Performed By: #### B MP #### [facility] [address] [address] [address] Jesus White Potassium [Moles/Vol] 3.7 mmol/L Normal 3.5-5.1 [facility] Comment on above: Performed By: #### B MP #### [facility] [address] [address] [address] Jesus White Sodium [Moles/Vol] 141 mmol/L Normal 136-145 [facility] Comment on above: Performed By: #### B MP #### [facility] [address] [address] [address] Jesus White Urea nitrogen [Mass/Vol] 12.0 mg/dL Normal 7.0-18.0 [facility] Comment on above: Performed By: #### B MP #### [facility] [address] [address] [address] Jesus White Urea nitrogen/Creatinine [Mass ratio] 9.9 mg/mg Normal [facility] Comment on above: Performed By: #### B MP #### [facility] [address] [address] [address] Jesus White ER URINE PROFILEon 2 Bilirubin Ql (U) Negative Normal NEGATIVE [facility] Comment on above: Performed By: #### Júnior BARNES UMICRO ####[facility] [address] [address]Dr. Jesus White Clarity (U) CLEAR Normal CLEAR [facility] Comment on above: Performed By: #### Júnior BARNES UMICRO ####[facility] [address] [address]Dr. Jesus White Color (U) LT. YELLOW Normal YELLOW [facility] Comment on above: Performed By: #### Júnior BARNES UMICRO ####[facility] [address] [id number] DAVED A micrscopic examination will be performed if indicated. Normal [facility] Comment on above: Performed By: #### Júnior BARNES UMICRO ####[facility] [address] [id number]. Jesus White Glucose Ql (U) Negative Normal NEGATIVE The [facility] Comment on above: Performed By: #### E RUR, UMICRO ####[facility] [address] [address]Dr. Jesus White Hemoglobin Ql (U) Negative Normal NEGATIVE The [facility] Comment on above: Performed By: #### VALERIO GOULDRO ####[facility] [address] [address]Dr. Jesus White Ketones Ql (U) Negative Normal NEGATIVE The [facility] Comment on above: Performed By: #### VALERIO GOULDRO ####[facility] [address] [place], [place] [address]Dr. Jesus White LEUKOCYTES Negative Normal NEGATIVE [facility] Comment on above: Performed By: #### VLAERIO GOULDRO ####[facility] [address] [place], [place] [address]Dr. Jesus White Nitrite Ql (U) Negative Normal NEGATIVE The [facility] Comment on above: Performed By: #### CALEB GOULD ####[facility] [address] [place], [place] [address]Dr. Jesus White pH (U) 6.0 [pH] Normal 5-9 [facility] Comment on above: Performed By: #### VALERIO GOULDRO ####[facility] [address] [place], [place] [address]Dr. Jesus White SPEC GRAVITY <=1.005 Abnormal 1.005-<=1.025 [facility] Comment on above: Performed By: #### VALERIO GOULDRO ####[facility] [address] [place], [place] [address]Dr. Jesus White UA PROTEIN Negative Normal NEGATIVE/ TRACE [facility] Comment on above: Performed By: #### VALERIO GOULDRO ####[facility] [address] [place], [place] [address]Dr. Jesus White UR MICRO IND INDICATED Normal [facility] Comment on above: Performed By: #### CALEB GOULD ####[facility] [address] [place], [place] [address]Dr. Jesus White Urobilinogen Qn (U) 0.2 {Dash'U}/dL Normal 0.2 - 1. 0 [facility] Comment on above: Performed By: #### CALEB GOULD ####[facility] [address] [address]Dr. Jesus White URINE MICROSCOPIC ONLYon BACTERIA NONE SEEN Normal NONE SEEN The [facility] Comment on above: Performed By: #### VALERIO GOULDRO ####[facility] [address] [place], [place] [address]Dr. Jesus White Bacteria identified Cx Nom (U) NOT INDICATED Normal [facility] Comment on above: Performed By: #### CALEB GOULD ####[facility] [address] [place], [place] [address]Dr. Jesus White CAST NONE SEEN Normal NONE SEEN [facility] Comment on above: Performed By: #### CALEB GOULD ####[facility] [address] [place], [place] [address]Dr. Jesus White Crystals LM Nom (Urine sed) NONE SEEN Normal NONE SEEN [facility] Comment on above: Performed By: #### CALEB GOULD ####[facility] [address] [place], [place] [address]Dr. Jesus White Epithelial cells LM Ql (Urine sed) RARE Normal NONE SEEN /RARE [facility] Comment on above: Performed By: #### VALERIO GOULDRO ####[facility] [address] [address]Dr. Jesus White MUCOUS NONE SEEN Normal NONE SEEN [facility] Comment on above: Performed By: #### VALERIO GOULDRO ####[facility] [address] [place], [place] [address]Dr. Jesus White RBC NONE SEEN Abnormal 0-2 [facility] Comment on above: Performed By: #### VALERIO GOULDRO ####[facility] [address] [place], [place] [address]Dr. Jesus White WBC NONE SEEN Normal NONE SEEN The [facility] Comment on above: Performed By: #### E CALEB BARNES ####[facility] [address] [place], [place] [address]PqJordin White US CRYSTAL DOP LEG LTon 01-02-20 [...] VARSHA BARNARD Date: 2022-01-01 08:49 Normal [facility] Vital Signs Date Time Vital Sign Value Performing Clinician Facility 01-17-2024 08:08-0400 Blood Pressure Location Carlos HOLLINS [facility] 01-17-2024 08:08-0400 Diastolic blood pressure 84 mm[Hg] Carlos HOLLINS [facility] 01-17-2024 08:08-0400 Heart rate 62 /min Carlos HOLLINS [facility] 01-17-2024 08:08-0400 Respiratory rate 19 /min [facility] 01-17-2024 08:08-0400 Systolic blood pressure 151 mm[Hg] Carlos HOLLINS [facility] 10-17-2023 10:02-0400 Blood Pressure Location Carlos HOLLINS [facility] 10-17-2023 10:02-0400 Diastolic blood pressure 66 mm[Hg] Carlos HOLLINS [facility] 10-17-2023 10:02-0400 Heart rate 66 /min Carlos HOLLINS [facility] 10-17-2023 10:02-0400 Respiratory rate 18 /min Carlos HOLLINS [facility] 10-17-2023 10:02-0400 Systolic blood pressure 120 mm[Hg] Carlos HOLLINS [facility] 10-13-2023 13:17-0400 Body height 177.8 cm [facility] 10-13-2023 13:17-0400 Body mass index (BMI) [Ratio] 32.5 kg/m2 [facility] 10-13-2023 13:17-0400 Body temperature 97 [degF] [facility] 10-13-2023 13:17-0400 Body weight 102.96 kg [facility] 10-13-2023 13:17-0400 Diastolic blood pressure 70 mm[Hg] [facility] 10-13-2023 13:17-0400 Heart rate 74 /min [facility] 10-13-2023 13:17-0400 Respiratory rate 20 /min [facility] 10-13-2023 13:17-0400 SaO2% (BldA) [Mass fraction] 97 % [facility] 10-13-2023 13:17-0400 Systolic blood pressure 120 mm[Hg] [facility] 03-17-2023 15:20-0400 Body height 177.8 cm Jose Victoria Other [facility] Other 03-17-2023 15:20-0400 Body mass index (BMI) [Ratio] 31.96 kg/m2 Jose Julien Other [facility] Other 03-17-2023 15:20-0400 Body temperature 96.9 [degF] Jose Julien Other [facility] Other 03-17-2023 15:20-0400 Body weight 101.06 kg Jose Julien Other [facility] Other 03-17-2023 15:20-0400 Diastolic blood pressure 73 mm[Hg] Jose Julien Other [facility] Other 03-17-2023 15:20-0400 Respiratory rate 18 /min Jose Julien Other [facility] Other 03-17-2023 15:20-0400 SaO2% (BldA) [Mass fraction] 98 % Jose Julien Other [facility] Other 03-17-2023 15:20-0400 Systolic blood pressure 134 mm[Hg] Jose Julien Other [facility] Other 09-30-2022 11:20-0400 Body height 177.8 cm Jose Julien Other [facility] Other 09-30-2022 11:20-0400 Body mass index (BMI) [Ratio] 33.6 kg/m2 Jose Julien Other [facility] Other 09-30-2022 11:20-0400 Body temperature 96.3 [degF] Jose Julien Other [facility] Other 09-30-2022 11:20-0400 Body weight 106.23 kg Jose Julien Other [facility] Other 09-30-2022 11:20-0400 Diastolic blood pressure 64 mm[Hg] Jose Julien Other [facility] Other 09-30-2022 11:20-0400 Respiratory rate 18 /min Jose Julien Other [facility] Other 09-30-2022 11:20-0400 SaO2% (BldA) [Mass fraction] 99 % Jose Julien Other [facility] Other 09-30-2022 11:20-0400 Systolic blood pressure 138 mm[Hg] Jose Julien Other [facility] Other 03-22-2022 14:00-0400 Body height 177.8 cm Jose Julien Other [facility] Other 03-22-2022 14:00-0400 Body mass index (BMI) [Ratio] 33.14 kg/m2 Jose Julien Other [facility] Other 03-22-2022 14:00-0400 Body temperature 95.9 [degF] Jose Julien Other [facility] Other 03-22-2022 14:00-0400 Body weight 104.78 kg Jose Julien Other [facility] Other 03-22-2022 14:00-0400 Diastolic blood pressure 70 mm[Hg] Jose Julien Other [facility] Other 03-22-2022 14:00-0400 Respiratory rate 18 /min Jose Julien Other [facility] Other 03-22-2022 14:00-0400 SaO2% (BldA) [Mass fraction] 97 % Jose Julien Other [facility] Other 03-22-2022 14:00-0400 Systolic blood pressure 119 mm[Hg] Jose Julien Other [facility] Other 06-18-2021 11:40-0500 Body height 177.8 cm Jose Julien Other [facility] Other 06-18-2021 11:40-0500 Body mass index (BMI) [Ratio] 37.22 kg/m2 Jose Julien Other [facility] Other 06-18-2021 11:40-0500 Body temperature 95.9 [degF] Jose Julien Other [facility] Other 06-18-2021 11:40-0500 Body weight 117.66 kg Jose Julien Other [facility] Other 06-18-2021 11:40-0500 Diastolic blood pressure 70 mm[Hg] Jose Julien Other [facility] Other 06-18-2021 11:40-0500 Respiratory rate 18 /min Jose Julien Other [facility] Other 06-18-2021 11:40-0500 SaO2% (BldA) [Mass fraction] 97 % Jose Julien Other [facility] [employer] Other 06-18-2021 11:40-0500 Systolic blood pressure 124 mm[Hg] Jose Julien Other [facility] Other Encounters Encounter Date Encounter Type Care Provider Facility Start: 05-22-2024 ambulatory [facility] Start: 01-17-2024 End: 01-17-2024 ambulatory Carlos HOLLINS [facility] Start: 01-17-2024 End: 01-17-2024 Patient encounter procedure Carlos Day GURVINDER [facility] Start: 11-24-2023 End: 11-24-2023 ambulatory PATEL FAWWAD Not Available Start: 10-17-2023 End: 10-17-2023 ambulatory Carlos HOLLINS Facility: [facility] Start: 10-17-2023 End: 10-17-2023 Patient encounter procedure Carlos Shay HOLLINS [facility] Start: 10-13-2023 End: 10-13-2023 ambulatory [facility] Work Phone: Start: 10-13-2023 End: 10-13-2023 Patient encounter procedure [facility] Physician [facility] Work Phone: Start: 10-04-2023 Non-patient / Non-visit [facility] Physician [facility] Work Phone: Start: 09-28-2023 End: 09-28-2023 ambulatory PATEL FAWWAD Not Available Start: 08-23-2023 End: 08-23-2023 ambulatory PATEL FAWWAD Not Available Start: 05-10-2023 End: 05-10-2023 ambulatory PATEL FAWWAD Not Available Start: 03-17-2023 End: 03-17-2023 ambulatory Jose Julien Other [facility] Other Start: 03-17-2023 Office outpatient vi sit 15 minutes Jose Julien [facility] Start: 10-11-2022 End: 10-12-[address] CARLOS HOLLINS Facility:[facility] Start: 09-30-2022 End: 09-30-2022 ambulatory Jose Julien Other [facility] Other Start: 09-30-2022 Office outpatient vi sit 15 minutes Jose Julien [facility] Start: 08-23-2022 End: 08-24-2022 ambulatory PATEL H FAWWAD Facility:[facility] Start: 07-05-2022 End: 07-06-2022 ambulatory RUKHSANA AGUILAR . Facility:[facility] Start: 04-08-2022 End: 04-08-[address] COLTEN NUNO . Facility:[facility] Start: 03-24-2022 End: 03-25-2022 ambulatory RUKHSANA SAMSA . Facility:[facility] Start: 03-22-2022 End: 03-22-2022 ambulatory Jose Julien Other [facility] Other Start: 03-22-2022 Office outpatient vi sit 25 minutes Jose Julien [facility] Start: 02-16-2022 End: 02-17-2022 ambulatory PATEL H FAWWAD Facility:[facility] Start: 01-01-2022 End: 01-01-[address] LUNA DUFFY . Facility:[facility] Start: 06-21-2021 End: 06-21-2021 ambulatory Jose Julien Other [facility] Other Start: 06-21-2021 Telephone encounter Jose Julien [facility] Start: 06-18-2021 End: 06-18-2021 ambulatory Jose Julien Other [facility] [employer] Other Start: 06-18-2021 Office outpatient vi sit 25 minutes Jose Victoria [facility] Fred Procedures Date Procedure Procedure Detail Performing Clinician Start: 10-11-[address] WINIFRED HOLLINS Comment on above: Performed By: #### P SAD ####[facility] [address] [address]DrJordin White Start: 03-24-2011 Brachytherapy Carlos PIZARRO Start: 06-06-2000 Excision of left kidney Carlos HOLLINS Cataract (disorder) Carlos HOLLINS Extraction of wisdom tooth G kerry HOLLINS History of hernia repair Eri HOLLINS Plan of Treatment Date Care Activity Detail Author Renal function 1999 panel - Serum or Plasma [facility] Immunizations Immunization Date Immunization Notes Care Provider Fa [facility] 03-17-2023 influenza virus vaccine, unspecified formulation Carlos HOLLINS [facility] 03-27-2022 influenza virus vaccine, unspecified formulation Carlos HOLLINS [facility] 05-27-2021 SARS-CoV-2 (COVID-19 ) mRNA-1273 vaccine Carlos HOLLINS [facility] Comment on above: Result Comment: [facility] 03-26-2021 influenza virus vaccine, unspecified formulation Carlos HOLLINS [facility] 11-21-2020 SARS-CoV-2 (COVID-19 ) mRNA-1273 vaccine Carlos HOLLINS [facility] 10-16-2020 SARS-CoV-2 (COVID-19 ) mRNA-1273 vaccine Carlos HOLLINS [facility] 02-05-2020 influenza virus vaccine, unspecified formulation Carlos HOLLINS [facility] 05-14-2014 influenza virus vaccine, unspecified formulation Carlos HOLLINS [facility] Payers Date Payer Category Payer Medicaid [employer] [id number] [facility] [id number] 1958 Medicare [id number] 1956 Unknown [id number] [id number] 1956 Unknown [id number] [id number] 1956 Unknown [id number] 2.16.840.1.435792.3.579.2.593 1956 Unknown [id number] 2.16.840.1.167028.3.579.2.593 1956 Unknown [id number] 2.16.840.1.505407.3.579.2.593 1956 Unknown [id number] 2.16.840.1.376118.3.579.2.593 1956 Unknown [id number] 2.16.840.1.771452.3.579.2.593 1956 Unknown [id number] 2.16.840.1.646767.3.579.2.593 1956 Unknown [id number] 2.16.840.1.005650.3.579.2.1259 1956 Unknown [id number] 2.16.840.1.681441.3.579.2.1259 1956 Unknown [id number] 2.16.840.1.718508.3.579.2.1259 1956 Unknown [id number] 2.16.840.1.421365.3.579.2.1259 1956 Unknown [id number] 2.16.840.1.890449.3.579.2.727 1956 Unknown [id number] 2.16.840.1.351229.3.579.2.727 1956 Unknown [id number] 2.16.840.1.682994.3.579.2.72 Medicaid [employer] [id number] Self-pay Self Pay [id number] Unknown [employer] GHAZALA [id number] Social History Date Type Detail Facility Unknown if ever smoked [facility] Other Sex Assigned At [facility] Start: 10-13-2023 [facility] Start: 1955 Sex Assigned At Male F [facility] Start: 10-17-2023 End: 01-17-2024 Tobacco smoking status Light tobacco smoker (finding) [facility] Tobacco smoking status Never [facility] Functional Status Date Assessment Result Facility 01-17-2024 Functional Status N/A [facility] 10-17-2023 Functional Status N/A [facility] Clinical Notes 06-18-2021 to 01-17-2024 Note Date & Type Note Facility 01-17-2024 Hospital Discharg e instructions Patient Education 01/17/2024 08:21:35 Cancer Screening for Men Cancer Screening for Men A cancer screening [...] screenings for other types of cancer if: You had cancer before. You have a family member with cancer. You have abnormal genes that could increase the risk of cancer. You have risk factors for certain cancers, such as current or past use of tobacco products, or being overweight. When you should be screened for cancer depends on: Your age. Your medical history and your family's medical history. Certain lifestyle factors, such as smoking or other use of tobacco products. Environmental exposure, such as to asbestos. How is screening done? Colorectal cancer All adults should have screenings starting at age 45 and continuing until age 75. Your health care provider may recommend screening before age 45. You will have tests every 1 10 years, depending on your results and the [...] to look for cancer or polyps include: Colonoscopy or flexible sigmoidoscopy. For these procedures, a flexible tube with a small camera is inserted into the rectum. CT colonography. This test uses X-rays and a contrast dye to check the colon for polyps. If a polyp is found, you may need to have a colonoscopy so the polyp can be located and removed. Tests to look for cancer in the stool (feces) include: Guaiac-based fecal occult blood test (FOBT). This test can find blood in stool. It can be done at home with a kit. Fecal immunochemical test (FIT). This test can find blood in stool. For this test, you will need to collect stool samples at home. Stool DNA test. This test looks for [...] need to be screened earlier, at ages 40 45. Talk with your health care provider about whether screening is right for you and, if so, how often you should be screened. Prostate cancer screening is done with blood tests and a digital rectal exam. During this exam, a health care provider uses a gloved finger to check prostate size. You may need to be screened for prostate cancer if: You have risk factors for prostate cancer, such as being or having a close family member with prostate cancer. You have had gene changes or a genetic condition that was passed on to you from a parent (inherited). These gene changes or genetic conditions include BRCA1 or BRCA2 gene mutations or Ayon syndrome. You have symptoms of prostate cancer, such [...] your health care provider if you are 50 80 years old and if any of the following apply to you: You currently smoke. You used to smoke heavily. You have a smoking history of 1 pack of cigarettes a day for 20 years or 2 packs a day for 10 years. You have quit smoking within the past [...] if anything looks unusual. Men with a qukgxe-rqer-hvbhiu risk for skin cancer may want to see a skin former (booster pump oiler) for an annual body check. What are the benefits of screening? Cancer screening is done to look for cancer in the very early stages, before it spreads and becomes harder to treat and before you would start to notice symptoms. Finding cancer early improves the chances of successful treatment. It may save your life. Where to find more information [place] [employer]: www.cancer.org Centers for Disease Control and Prevention: www.cdc.gov National Cancer [place]: www.cancer.gov Contact a health care provider if: You have concerns about any signs or symptoms of cancer. These may include: Skin problems. You may have: ?Moles of an unusual shape or color. ?Changes in existing moles. ?A sore on your skin that does not heal. Tiredness (fatigue) that does not go away. Losing weight without trying. Blood in your urine or stool. Problems with urination. You may have: ?Changes in urination habits. ?Painful urination. Painful ejaculation. Problems with coughing or breathing. These may include: ?Coughing or trouble breathing that does not go away. ?Coughing up blood. Frequent pain or cramping in your abdomen. Summary Your health care provider will recommend specific cancer screenings based on your age, medical history, and family history of cancer. Work with your health care provider to create a cancer screening schedule that protects your health. Finding cancer early improves the chances of successful treatment. It may save your life. Contact a health care provider if you have concerns about any signs or symptoms of cancer. This information is not intended to replace advice given to you by your health care provider. Make sure you discuss any questions you have with your health care provider. Document Revised: 10/19/2021 Document Reviewed: 04/18/2020 [employer] Patient Education 2022 [employer]. Follow Up Care 10/17/2023 10:47:32 With:GURVINDER HENDRICKSON, Carlos Day, URL Address: [address] [place], [place] [id number]- When: Unknown [facility] 01-17-2024 Note Patient Education Oncology Cancer Screening for Men [...] if anything looks unusual. Men with a nkrqly-vhgv-kpxjqa risk for skin cancer may want to see a skin former (booster pump oiler) for an annual body check. What are the benefits of screening? Cancer screening is done to look for cancer in the very early stages, before it spreads and becomes harder to treat and before you would start to notice symptoms. Finding cancer early improves the chances of success (more content not included)... [facility] 10-17-2023 Hospital Discharg e instructions Patient Education [...] under a microscope. This is called the Cleves score and the total score can range from 6 10, indicating how likely it is that the cancer will spread (metastasize) to other parts of the body. The higher the score, the greater the likelihood that the cancer will spread. Cleves 6 or lower: This indicates that the [...] stress of having cancer. General instructions Take dalx-tbg-jefgzlt and prescription medicines only as told by your health care provider. If you have to go to the hospital, notify your cancer specialist (oncologist). Keep all follow-up visits. This is important. Where to find more information [place] [employer]: www.cancer.org [place] Society of Clinical Oncology: www.cancer.net National Cancer [place]: www.cancer.gov Contact a health care provider if: [...] provider. Document Revised: 08/19/2021 Document Reviewed: 08/19/2021 [employer] Patient Education 2022 [employer]. Follow Up Care 10/15/2022 10:10:00 With:GURVINDER HENDRICKSON, Carlos Day, URL Address: [address] [place] [address] [place], [place] [id number]- When: Unknown [facility] Heri 03-17-2023 Evaluation note Encounter Date Diagnosis Assessment Notes Mar, Joseph cuba cr kid I-IV (ICD-10 - I12.9) Blood [...] Monitor LFTs and lipid profile with PCP. [facility] Other [id number] Evaluation note* Encounter Date Diagnosis Assessment Notes Treatment Notes Treatment Clinical Notes Sep, Joseph cuba cr kid I-IV (ICD-10 - I12.9) Blood [...] have gout. I have prescribed oral Allopurinol [facility] Other 10-17-2022 Evaluation note* Encounter Date Diagnosis [...] have gout. I have prescribed oral Allopurinol [facility] Other 07-29-2022 NotePROCEDURE: XR FEMUR LT HISTORY: [...] Electronically authenticated by: LUCAS GOLDSTEIN Date: 2022-01-01 08:35[facility]01-13-2022 Evaluation note* Encounter Date Diagnosis Assessment Notes [...] Q60.0) He has a solitary right kidney. Dana Yabidu Other evaluation + Plan note Future Appointments Appointment Date:01/16/2024 09:45:00 AM Scheduled Provider:Carlos HOLLINS MD Location:[facility] Appointment Type:URO Office Visit Diagnostic Tests Pending * PSA Total 11/05/23 [facility] evaluation + Plan note Future Appointments Appointment Date:05/22/2024 09:30:00 AM Scheduled Provider:Carlos HOLLINS MD Location:[facility] Appointment Type:URO Office Visit Diagnostic Tests Pending * PSA Total 01/17/24 [facility] evaluation noteNo [facility] [employer] Other evaluation note* Diagnosis Onset Date Resolution Status Anemia of renal disease acut e CKD (chronic kidney disease) stage 3, GFR 30-59 ml/min acute Hyperlipidemia acute [id number] acute Hyperuricemia acute Hypomagnesemia acute Secondary hyperparathyroidism acute Solitary kidney, acquired ac [place] [facility] Work Phone: History general Narrative - ReportedNocox branson Yabidu Other [facility] general Narrative - Reported* Type Description Date [...] BLOOD PRESSURE WAS 60/40 , DEHYDRATION 04/2021 [facility] Other Hiszjas general Narrative - Reported* Type Description Date [...] BLOOD PRESSURE WAS 60/40 , DEHYDRATION 04/2021 [facility] Other [facility]Eons general Narrative - Reported* Type Description Date [...] BLOOD PRESSURE WAS 60/40 , DEHYDRATION 04/2021 [facility] Other Hospital course Narrative No data available for this section [facility] Curry Progress note No data available for this section [facility] Summary Purpose Family History No Family History [...] disease) stage 3, GFR 30-59 ml/min Hyperlipidemia [id number] Hyperuricemia Hypomagnesemia Secondary hyperparathyroidism Solitary kidney, acquired Additional Source Comments REASON FOR VISIT (unrecogniz ed section and content) CKD and HTNCKD (unrecognized sect ion and content) No Status Records FoundNo Status Records FoundNo Status Records Found INFORMATION SOURCE (unrecogn ized section and content) DATE CREATED AUTHOR 11/12/2022 [facility] DATE CREATED AUTHOR AUTHOR'S ORGANIZ ATION 11/25/2023 [facility] DATE CREATED AUTHOR AUTHOR'S ORGANIZ ATION 01/19/2024 [facility] Care Teams (unrecognized sec tion and content) [...] BE BASED ON THE PRIMARY CLINICAL RECORDS. [facility] [employer] [facility]. provides no warranty or guarantee of the accuracy or completeness of information in this document.
--- NOTE | 2024-03-19 10:16 | XR_ITS ---
The [address] [address] Patient Name: ABBEY IRVING MRN: [id number] date: 1955 Sex: M Assigned Patient Location: LAB Current Patient Location: Accession/Order Number: [id number] Exam Date: 03/19/2024 10:44 Report Date: 03/20/2024 07:29 At the request of: NICOLLE LINK Procedure: XR ankle RT min 3V PROCEDURE: XR ankle RT min 3V COMPARISON: None. HISTORY: Acute right ankle pain M25.571 FINDINGS: BONES:No acute fracture or dislocation. Mild enthesopathic spurring of the calcaneus. SOFT TISSUES:Negative. No visible soft tissue swelling. EFFUSION:None visible. OTHER: Negative. XR/XR ankle RT min 3V IMPRESSION: No acute fracture Electronically authenticated by: DANISHA CHANG Date: 03/20/2024 07:29
[2024-03-19 11:09] LABS: Influenza Virus A Antigen Negative; Influenza Virus B Antigen Negative; Internal Control Within Normal Limits; SARS-CoV-2 Ag NEGATIVE (NEGATIVE)
[2024-03-19 14:41] LABS: Internal Control Within Normal Limits; Respiratory Syncytial Virus Not Detected (NOT DETECTE)
== END 2024-03-19 09:55 | disposition home or self-care (01) ==
LOC: LAB 09:55
PROVIDERS: PCP Internal Medicine
DX: J06.9 Acute upper respiratory infection, unspecified (principal); M25.571 Pain in right ankle and joints of right foot
CPT/HCPCS: 73610; 87420; 87502; 87804; 87811

== ENCOUNTER 2024-04-12 19:18 | Emergency (ER) | payer MEDICARE, SELFPAY ==
[2024-04-12 19:23] VITALS: BP 130/82; PULSE 108; TEMP 36.9; O2SAT 98; BMI 33.0
--- NOTE | 2024-04-12 19:29 | ECG_ITS ---
The 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
--- NOTE | 2024-04-12 19:40 | XR_ITS ---
The [place] [id number] Patient Name: ABBEY IRVING MRN: [id number] date: 1955 Sex: M Assigned Patient Location: ER Current Patient Location: ER Accession/Order Number: [id number] Exam Date: 04/12/2024 20:03 Report Date: 04/12/2024 21:32 At the request of: DA MARKER Procedure: XR chest 2V CHEST PA AND LATERAL, 04/12/2024. HISTORY: Cough. COMPARISON: None. FINDINGS: 2 views of the chest obtained. The heart size and mediastinal contours are normal. There is no pleural effusion. No pneumothorax. Lungs are clear. XR/XR chest 2V IMPRESSION: Lungs are clear. No evidence of acute pneumonia. Electronically authenticated by: KARLA WISDOM Date: 04/12/2024 21:32
--- NOTE | 2024-04-12 19:43 | ED_ITS ---
HPI HPI - General Adult General Chief complaint: Nausea/Vomiting/Diarrhea Stated complaint: NAUSEA Time Seen by Provider: 04/12/24 19:32 Source: patient Mode of arrival: ambulance Limitations: no limitations History of Present Illness HPI narrative: This 69-year-old male, smoker, presents for evaluation of dry heaves with sinus congestion and a cough. Symptoms have been present for the past several days. He states he is coughing so hard that it is making him gag and vomit. He does not have any gi related complaints or nausea with vomiting. He denies any solomon chest pain. He denies any documented fever but has had chills and sweats. He states he has been using [facility] cold relief for his symptoms. He denies any sick contacts. His has a history of COPD but he denies that he has ever been diagnosed with COPD. Related Data Home Medications ?Medication ?Instructions ?Recorded ?Confirmed allopurinol 100 mg tablet mg 04/12/24 atorvastatin 40 mg tablet mg 04/12/24 budesonide-formoterol HFA 160 inhalation 04/12/24 mcg-4.5 mcg/actuation aerosol inhaler furosemide 20 mg tablet mg 04/12/24 losartan 50 mg tablet mg 04/12/24 metoprolol tartrate 25 mg tablet mg 04/12/24 omeprazole 40 mg capsule,delayed mg 04/12/24 release tamsulosin 0.4 mg capsule mg PO 04/12/24 Allergies Allergy/AdvReac Type Severity Reaction Status Date / Time No Known Drug Allergies Allergy Verified 04/12/24 19:25 Opioid HPI Opioid Management Most Recent Opioid Data: No Data to Display Review of Systems ROS Status of ROS 10 or more systems reviewed and unremark able except as noted in history and below PFSH PFSH Social History Little interest or pleasure in doing things: not at all Feeling down, depressed, or hopeless: not at all Exam Narrative Exam Narrative: Vital signs and Nursing Notes reviewed: Vital signs reviewed, patient is afebrile, he has mildly tachycardic with a pulse of 108 and respiratory rate is elevated at 24, blood pressure is stable at 130/82 and he is not hypoxic with pulse ox of 98% on room air General: Awake, alert, oriented, nontoxic male, no respiratory distress, his voice is hoarse HEENT: Normocephalic atraumatic, mucous membranes are moist and pink, eyes are clear, normal conjunctiva, vision is grossly intact, posterior pharynx is normal in appearance. There is no swelling of the tongue, uvula or pharyngeal soft tissues, clear post nasal drip appreciated Neck: Supple, no meningeal signs, no anterior or posterior cervical lymphadenopathy, no stridor Chest: Coarse breath sounds bilaterally with no rhonchi or rales, moist cough noted CVS: Regular rate and rhythm S1-S2, tachycardic at 105 on exam, no murmurs rubs or gallops, pulses are brisk and equal bilaterally ABD: Soft, nondistended, nontender, no rebound guarding or rigidity, bowel sounds are normal, no pulsatile masses appreciated Extremities: Moving all extremities, no lower extremity tenderness or swelling noted, negative Homans' sign, pulses are brisk and equal bilaterally Skin: Normal in appearance without rash,pallor, petechiae or purpura Neuro: No focal deficits Constitutional Vital Signs, click to edit/add: Last Vital Signs Temp 98.5 F 04/12/24 19:23 Pulse 105 H 04/12/24 20:24 Resp 16 04/12/24 20:24 BP 130/82 04/12/24 19:23 Pulse Ox 100 04/12/24 20:24 O2 Del Method Room Air 04/12/24 20:24 Course Vital Signs Vital signs: Vital Signs Temperature 98.5 F 04/12/24 19:23 Pulse Rate 108 H 04/12/24 19:23 Respiratory Rate 24 H 04/12/24 19:23 Blood Pressure 130/82 04/12/24 19:23 Pulse Oximetry 98 04/12/24 19:23 Oxygen Delivery Method Room Air 04/12/24 19:23 Temperature 98.5 F 04/12/24 19:23 Pulse Rate 105 H 04/12/24 20:24 Respiratory Rate 16 04/12/24 20:24 Blood Pressure 130/82 04/12/24 19:23 Pulse Oximetry 100 04/12/24 20:24 Oxygen Delivery Method Room Air 04/12/24 20:24 Medical Decision Making MDM Narrative Medical decision making narrative: This 69-year-old male, smoker with a history of tobacco use but denies a history of COPD who also has chronic renal disease and has 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 He states he has had chills and sweats and has so much drainage that he cannot stop coughing. He states that the sinus drainage she is experiencing is causing him to gag. He is not having any GI related nausea or vomiting. He denies any chest pain. He is not particularly short of breath. He was afebrile in the emergency department and mildly tachycardic. EKG done upon arrival is a sinus tachycardia at 105 bpm. He was g iven a DuoNeb but could not tolerated due to ongoing gagging from the secretions in his oropharynx. An IV was placed and routine labs are ordered. He is negative for COVID-19 and influenza. He has a normal white count and hemoglobin. Troponin and BNP are normal. His BUN is 38 and creatinine is 1.93. Lactic acid was elevated at 2.6. Urine is negative for infection. Two-view chest x-ray was reviewed by radiology with no acute findings. He was given IV fluids and a dose of cough medicine with codeine and it. On reevaluation his cough and congestion are improved and he feels comfortable with being discharged home. In light of his chronic medical conditions he will be discharged home with a prescription for Robitussin AC as well as a Zithromax Z-KAL and Zofran. Repeat lactic acid after his treatment in the emergency department is improved. He is tolerating fluids and hemodynamically stable for discharge. He was encouraged to quit smoking. Lab Data Lab results reviewed: Yes I reviewed the patient's lab results Labs: Lab Results 04/12/24 04/12/24 04/12/24 Range/Units 19:35 19:45 22:35 WBC 8.9 (4.0-11.0) 10^3/uL RBC 4.48 L (4.70-6.10) 10^6/uL Hgb 14.3 (14.0-18.0) g/dL Hct 41.6 L (42.0-54.0) % MCV 92.9 (80.0-94.0) fL MCH 31.9 (25.9-34.0) pg MCHC 34.4 (29.9-35.2) g/dL RDW 13.5 (11.0-15.0) % Plt Count 189 (150-450) 10^3/uL MPV 9.9 (9.5-13.5) fL Neut % (Auto) 79.3 H (43.0-75.0) % Lymph % (Auto) 12.0 L (20.5-60.0) % [place] % (Auto) 7.2 (1.7-12.0) % Eos % (Auto) 0.7 L (0.9-7.0) % Baso % (Auto) 0.5 (0.2-2.0) % Neut # (Auto) 7.0 H (1.4-6.5) 10^3/uL Lymph # (Auto) 1.1 L (1.2-3.8) 10^3/uL [place] # (Auto) 0.6 (0.3-0.8) 10^3/uL Eos # (Auto) 0.1 (0.0-0.7) 10^3/uL Baso # (Auto) 0.0 (0.0-0.1) 10^3/uL Abs Immat Gran (auto) 0.03 (0.00-0.03) 10^3/uL Imm/Tot Granulo (auto) 0.3 (0.0-0.5) % Sodium 144 (136-145) mmol/L Potassium 4.2 (3.5-5.1) mmol/L Chloride 107 (98-107) mmol/L Carbon Dioxide 23.2 (21.0-32.0) mmol/L Anion Gap 18.0 BUN 38.0 H (7.0-18.0) mg/dL Creatinine 1.93 H (0.70-1.30) mg/dL Est GFR ( Amer) 42 L (>=60 mL/min/1.73m^2) Est GFR (Non-Af Amer) 35 L (>=60 mL/min/1.73m^2) BUN/Creatinine Ratio 19.7 Glucose 164 H (74-106) mg/dL Lactate 2.6 H* 2.1 H (0.4-2.0) mmol/L Calcium 9.0 (8.5-10.1) mg/dL Total Bilirubin 0.9 (0.2-1.0) mg/dL AST 36 (15-37) U/L ALT 30 (16-63) U/L Alkaline Phosphatase 56 (46-116) U/L Troponin I High Sens 7.7 (4.0-76.1) pg/mL NT-Pro-B Natriuret Pep 216.0 (<=900.0) pg/mL Total Protein 7.0 (6.4-8.2) g/dL Albumin 3.4 (3.4-5.0) g/dL Globulin 3.6 g/dL Albumin/Globulin Ratio 0.9 Urine Color Lt. yellow (YELLOW) Urine Clarity Clear (CLEAR) Urine pH 5.5 (5.0-9.0) Ur Specific [place] 1.015 (1.005-1.025) Urine Protein Negative (NEG/TRACE) mg/dL Urine Glucose (UA) Negative (NEGATIVE) mg/dL Urine Ketones Negative (NEGATIVE) mg/dL Urine Occult Blood Negative (NEGATIVE) Urine Nitrite Negative (NEGATIVE) Urine Bilirubin Negative (NEGATIVE) Urine Urobilinogen 0.2 (0.2-1.0) EU/dL Ur Leukocyte Esterase Negative (NEGATIVE) Urine RBC None seen (0-2) #/HPF Urine WBC 0-2 A (NONE SEEN) #/HPF Ur Squamous Epith Cells Rare (NONE/RARE) #/LPF Urine Crystals None seen (None Seen) #/HPF Urine Bacteria None seen (NONE SEEN) #/HPF Urine Casts None seen (NONE SEEN) #/LPF Urine Mucus None seen (NONE SEEN) Influenza Type A Ag Negative Influenza Type B Ag Negative SARS-CoV-2 Ag (CV2AG) Negative (NEGATIVE) ECG Data Attestation: I personally reviewed and interpreted this ECG as follows: (Sinus tachycardia at 105 bpm, normal axis, first-degree AV block no acute ST segment elevation or T wave inversion) Discharge Plan Discharge Chief Complaint: Nausea/Vomiting/Diarrhea Clinical Impression: Bronchitis, Chronic renal disease Patient Disposition: Home, Self-Care Time of Disposition Decision: 22:52 Condition: Good Prescriptions / Home Meds: No Action losartan 50 mg tablet atorvastatin 40 mg tablet allopurinol 100 mg tablet omeprazole 40 mg capsule,delayed release(DR/EC) tamsulosin 0.4 mg capsule PO furosemide 20 mg tablet metoprolol tartrate 25 mg tablet budesonide-formoterol 160-4.5 mcg/actuation HFA aerosol inhaler INHALATION Print Language: Macedonian Instructions: Chronic Kidney Disease (ED), Acute Bronchitis (ED), Viral Syndrome (ED) Referrals: NICOLLE LINK [Primary Care Provider] - 1 week Discharge Date/Time: 04/12/24 23:18
[2024-04-12 19:54] LABS: Basophils Percent Auto 0.5 % (0.2-2.0); Eosinophils Absolute Auto 0.1 10^3/uL (0.0-0.7); Eosinophils Percent Auto 0.7 % (0.9-7.0); Hematocrit 41.6 % (42.0-54.0); Hemoglobin 14.3 g/dL (14.0-18.0); Immature Granulocytes Abs Auto 0.03 10^3/uL (0.00-0.03); Immature Granulocytes Pct Auto 0.3 % (0.0-0.5); Lymphocytes Absolute Auto 1.1 10^3/uL (1.2-3.8); Mean Corpuscular HGB Conc 34.4 g/dL (29.9-35.2); Mean Corpuscular Hemoglobin 31.9 pg (25.9-34.0); Mean Corpuscular Volume 92.9 fL (80.0-94.0); Mean Platelet Volume 9.9 fL (9.5-13.5); Monocytes Absolute Auto 0.6 10^3/uL (0.3-0.8); Monocytes Percent Auto 7.2 % (1.7-12.0); Neutrophils Percent Auto 79.3 % (43.0-75.0); Platelet Count 189 10^3/uL (150-450); Red Blood Count 4.48 10^6/uL (4.70-6.10); Red Cell Distribution Width 13.5 % (11.0-15.0); White Blood Count 8.9 10^3/uL (4.0-11.0)
[2024-04-12 20:06] LABS: Bilirubin Urine NEGATIVE (NEGATIVE); Blood Urine NEGATIVE (NEGATIVE); Clarity Urine CLEAR (CLEAR); Color Urine LT. YELLOW (YELLOW); Glucose Urine UA NEGATIVE (NEGATIVE); Ketones Urine NEGATIVE (NEGATIVE); Leukocyte Esterase Urine NEGATIVE (NEGATIVE); Nitrite Urine NEGATIVE (NEGATIVE); Protein Urine NEGATIVE (NEG/TRACE); Specific Gravity Urine 1.015 (1.005-1.025); Urobilinogen Urine 0.2 EU/dL (0.2-1.0); pH Urine 5.5 (5.0-9.0)
[2024-04-12 20:16] VITALS: PULSE 109; O2SAT 99
[2024-04-12] MEDS: IPRATROPIUM/ALBUTEROL SULFATE 3 ML AMPUL.NEB IH (20:16)
[2024-04-12 20:20] LABS: Influenza Virus A Antigen Negative; Influenza Virus B Antigen Negative; Internal Control Within Normal Limits; SARS-CoV-2 Ag NEGATIVE (NEGATIVE)
[2024-04-12 20:24] VITALS: PULSE 105; O2SAT 100
[2024-04-12 20:33] LABS: Alanine Aminotransferase 30 U/L (16-63); Albumin Globulin Ratio 0.9; Albumin Level 3.4 g/dL (3.4-5.0); Alkaline Phosphatase 56 U/L (46-116); Aspartate Amino Transferase 36 U/L (15-37); BUN Creatinine Ratio 19.7; Bilirubin Total 0.9 mg/dL (0.2-1.0); Carbon Dioxide 23.2 mmol/L (21.0-32.0); Chloride 107 mmol/L (98-107); Estimated GFR (African America 42 (>=60 mL/min/1.73m^2); Estimated GFR (Non-African Ame 35 (>=60 mL/min/1.73m^2); Globulin 3.6 g/dL; Glucose 164 mg/dL (74-106); Potassium 4.2 mmol/L (3.5-5.1); Sodium 144 mmol/L (136-145); Troponin I High Sensitivity 7.7 pg/mL (4.0-76.1)
[2024-04-12 20:34] LABS: Lactate/Lactic Acid 2.6 mmol/L (0.4-2.0)
[2024-04-12 20:46] LABS: Bacteria Urine NONE SEEN #/HPF (NONE SEEN); Cast Seen? NONE SEEN #/LPF (NONE SEEN); Crystals Seen? None Seen #/HPF (None Seen); Mucus Urine NONE SEEN (NONE SEEN); RBC Urine NONE SEEN #/HPF (0-2); Squamous Epithelial Cell Urine RARE #/LPF (NONE/RARE); WBC Urine 0-2 #/HPF (NONE SEEN)
[2024-04-12] MEDS: 0.9 % SODIUM CHLORIDE 1,000 ML 1000 ML IV (20:51)
[2024-04-12] MEDS: CODEINE 10 MG/GUAIFENESIN 100 MG 5 ML CUP PO (20:51)
[2024-04-12 23:14] LABS: Lactate/Lactic Acid 2.1 mmol/L (0.4-2.0)
== END 2024-04-12 23:18 | disposition home or self-care (01) ==
PROVIDERS: Emergency Provider Emergency Medicine
DX: J40 Bronchitis, not specified as acute or chronic (principal); N18.9 Chronic kidney disease, unspecified; Z90.5 Acquired absence of kidney; F17.200 Nicotine dependence, unspecified, uncomplicated; Z85.46 Personal history of malignant neoplasm of prostate; Z85.528 Personal history of other malignant neoplasm of kidney; Z90.79 Acquired absence of other genital organ(s); Z20.822 Contact with and (suspected) exposure to COVID-19
CPT/HCPCS: 36415; 71046; 80053; 81001; 83605; 83880; 84484; 85025; 87804; 87811; 93005; 94640; 96360; 99285

== ENCOUNTER 2024-04-18 11:35 | Outpatient (OUT) | payer MEDICARE, SELFPAY ==
--- OUTSIDE RECORDS SUMMARY | 2024-04-18 11:42 | XMS_ITS | CCD ---
Author Organization [facility] Care Team Providers Care Vp [place] Name Role Phone Jose Victoria Unavailable DR [...] Unavailable SAMSA ., RUKHSANA Consulting Unavailable SAMSA .RUKHSANA Admitting Unavailable SHAIKH GAGNON Primary Care Physician [phone] Carlos HOLLINS Attending Unavailable Carlos HOLLINS Attending Unavailable Carlos HOLLINS Attending Unavailable SHAIKH GAGNON Primary Care Unavailable SHAIKH GAGNON Attending Unavailable SHAIKH GAGNON Attending Unavailable SHAIKH GAGNON Attending Unavailable SHAIKH GAGNON Attending Unavailable MIGNON RODRIGUEZ Attending Unavailantoinette Gagnon MD, Unavailable Rm Rainey MD Primary Care Provider [phone] Mignon Rodriguez NP Unavailable Unallocated , Jyoti Provider Primary Care Provi phoebe Allergies Allergy Classification Reported Allergen(s) Allergy Type Date of Onset Reaction(s) Facility (1 source) No Known Medication Allergies; Translations: [No Known Medication Allergies] Propensity to adverse reactions (disorder) [facility] Repository Medications Current Medications Medication Drug Class(es) Dates Sig (Normalized) Sig (Original) [id number] 200 actuat albuterol 0.09 mg/actuat metered dose inhaler (13 sources) beta2-Adrenergic Agonist Start: 10-13-2023 take 1 puff(s) by inhalation every four hours Albuterol Sulfate Active 1 PUFF INHALATION Every 4 hours October 13, 2023 12:00am Start: 09-13-2023 take 2 puff(s) by mo uth every four hours as needed albuterol HFA 90 mcg/act inhaler Indications: Centrilobular emphysema (CMS/HCC) INHALE 2 PUFFS BY MOUTH EVERY 4 HOURS NEEDED FOR SHORTNESS OF BREATH 54 g 1 09/13/2023 Active take 1 puff(s) by in halation every four hours as needed Albuterol Sulfate HFA 108 (90 Base) MCG/ACT 1 puff as needed Inhalation every 4 hrs Active take 1 puff(s) by in halation every four hours as needed Albuterol Sulfate HFA 108 (90 Base) MCG/ACT 1 puff as needed Inhalation every 4 hrs Active allopurinol 100 mg oral tablet (14 sources) Xanthine Oxidase Inhibitor Start: 12-29-2023 End: 06-25-2024 take 1 tablet by mouth in the morning allopurinol (Zyloprim) 100 MG tablet Indications: Hyperuricemia Take 1 tablet (100 mg) by mouth in the morning and 1 tablet (100 mg) before bedtime. 180 tablet 03/27/2024 06/25/2024 Active Start: 10-13-2023 take 100 mg by mouth [...] 1 tablet Orally Once a day Active ascorbic acid 113 mg / copper gluconate 0.4 mg / docosahexaenoic acid 87.5 mg / eicosapentaenoic acid 163 mg / lutein 2.5 mg / tocopherol acetate 100 unt / zeaxanthin 0.5 mg / zinc oxide 17.4 mg oral capsule (7 sources) Vitamin C Start: 06-24-2023 take 2 capsules by mouth once daily Multiple Vitamins-Minerals (PreserVision AREDS 2) capsule Take 2 capsules by mouth Daily 06/24/2023 Active atorvastatin 40 mg oral tablet (16 sources) HMG-CoA Reductase Inhibitor Start: 03-27-2024 take 1 tablet by mouth once daily atorvastatin (Lipitor) 40 MG tablet Indications: Hyperlipidemia, unspecified (CMS/HCC) Take 1 tablet (40 mg) by mouth Daily 90 tablet 1 03/27/2024 Active Start: 11-01-2019 End: 03-27-2024 take 1 tablet by mouth once daily atorvastatin (Lipitor) 40 MG tablet Indications: Hyperlipidemia, unspecified (CMS/HCC) Take 1 tablet (40 mg) by mouth Daily 90 tablet 1 12/29/2023 03/27/2024 Discontinued (Reorder) 60 actuat budesonide 0.16 mg/actuat / formoterol fumarate 0.0045 mg/actuat metered dose inhaler (7 sources) Corticosteroid, beta2-Adrenergic Agonist Start: 12-20-2023 take 2 puff(s) by mouth twice daily budesonide-formoterol (Symbicort) 160-4.5 MCG/ACT inhaler Indications: Centrilobular emphysema (CMS/HCC) INHALE 2 PUFFS BY MOUTH TWICE DAILY *rinse after use* 30.6 g 2 12/20/2023 Active 12 hr cetirizine hydrochloride 5 mg / pseudoephedrine hydrochloride 120 mg extended release oral tablet (3 sources) alpha-Adrenergic Agonist, Histamine-1 Receptor Antagonist Start: 11-24-2023 End: 03-19-2024 take 1 tablet by mouth once in the morning, then take 1 tablet by mouth every twelve hours at bedtime cetirizine-pseudoephedri ne (ZyrTEC-D) 5-120 MG 12 hr tablet Indications: Chronic rhinosinusitis with multiple nasal polyps Take 1 tablet by mouth in the morning and 1 tablet before bedtime. 180 tablet 11/24/2023 03/19/2024 Discontinued (Therapy completed) doxycycline monohydrate 100 mg oral tablet (2 sources) Tetracycline-class Drug Start: 03-20-2024 End: 03-27-2024 take 1 tablet by mouth in the morning doxycycline (Adoxa) 100 MG tablet Indications: Acute bacterial sinusitis Take 1 tablet (100 mg) by mouth in the morning and 1 tablet (100 mg) before bedtime. Do all this for 7 days. Take with a full glass of water and do not lie down for at least 30 minutes after. 14 tablet 03/20/2024 03/27/2024 Active ergocalciferol 0.05 mg oral capsule (5 sources) Provitamin D2 Compound take 1 capsule by mouth every twenty-fou r hours Vitamin D (Ergocalciferol) 50 MCG (2000 UT) 1 capsule Orally Once a day Active fluticasone propionate 0.05 mg/actuat metered dose nasal spray (7 sources) Corticosteroid Start: 11-24-2023 take 2 spray(s) nasal route once daily fluticasone (Flonase) 50 MCG/ACT nasal spray Indications: Chronic rhinosinusitis with multiple nasal polyps Administer 2 sprays into each nostril Daily Shake gently. Before first use, prime pump. After use, clean tip and replace cap. 16 g 2 11/24/2023 Active furosemide 20 mg oral tablet (15 sources) Loop Diuretic Start: 11-01-2019 take 1 tablet by mouth once daily furosemide (Lasix) 20 MG tablet Indications: Chronic right heart failure (HCC) (CMS/HCC) Take 1 tablet (20 mg) by mouth Daily 90 tablet 2 12/29/2023 Active Ipratropium (9 sources) Anticholinergic Start: 11-01-2019 Atrovent HFA Inhalation, QID, Refills(s) 0 Start Date: 11/01/19 Status: Ordered take 2 puff(s) by in halation in the morning ipratropium (Atrovent HFA) 17 MCG/ACT inhaler Inhale 2 puffs in the morning and 2 puffs before bedtime. Active lansoprazole 15 mg disintegrating oral tablet (6 sources) Proton Pump Inhibitor Start: 10-13-2023 take 15 mg by mouth once daily Lansoprazole Active 15 MG PO Daily October 13, 2023 12:00am take 1 tablet by martinez th every twenty-four hours Lansoprazole 15 MG 1 tablet Orally Once a day Active losartan potassium 50 mg oral tablet (10 sources) Angiotensin 2 Receptor Ellis Start: 03-27-2024 take 1 tablet by mouth once daily losartan (Cozaar) 50 MG tablet Indications: Essential (primary) hypertension (CMS/HCC) Take 1 tablet (50 mg) by mouth Daily 90 tablet 1 03/27/2024 Active Start: 08-21-2021 End: 03-27-2024 take 1 tablet by mouth once daily losartan (Cozaar) 50 MG tablet Indications: Essential (primary) hypertension (CMS/HCC) Take 1 tablet (50 mg) by mouth Daily 90 tablet 1 12/29/2023 03/27/2024 Discontinued (Reorder) metoprolol tartrate 25 mg oral tablet (16 sources) beta-Adrenergic Ellis Start: 03-27-2024 take 1 tablet by mouth in the morning metoprolol tartrate (Lopressor) 25 MG tablet Indications: Essential (primary) hypertension (CMS/HCC) Take 1 tablet (25 mg) by mouth in the morning and 1 tablet (25 mg) before bedtime. 180 tablet 1 03/27/2024 Active Start: 12-29-2023 End: 03-27-2024 take 1 tablet by mouth in the morning metoprolol tartrate (Lopressor) 25 MG tablet Indications: Essential (primary) hypertension (CMS/HCC) Take 1 tablet (25 mg) by mouth in the morning and 1 tablet (25 mg) before bedtime. 180 tablet 1 12/29/2023 03/27/2024 Discontinued (Reorder) Start: 10-13-2023 take 25 mg by mouth twice tadeo y Metoprolol Tartrate Active 25 MG PO Twice [...] omeprazole 40 mg delayed release oral capsule (9 sources) Proton Pump Inhibitor Start: 12-29-2023 End: 09-23-2024 take 1 capsule by mouth once daily omeprazole (PriLOSEC) [address] capsule Indications: Gastroesophageal reflux disease with esophagitis without hemorrhage Take 1 capsule (40 mg) by mouth Daily 90 capsule 1 03/27/2024 09/23/2024 Active tamsulosin hydrochloride 0.4 mg oral capsule (15 sources) alpha-Adrenergi c Ellis Start: 12-20-2023 End: 01-11-2025 take 1 capsule by mouth once daily tamsulosin (Flomax) 0.4 MG 24 hr capsule Indications: Malignant (primary) neoplasm, unspecified (CMS/HCC) TAKE 1 CAPSULE BY MOUTH DAILY 90 capsule 2 12/20/2023 Active Start: 11-01-2019 take 0.4 mg by mouth once tadeo y Tamsulosin Active 0.4 MG PO Daily October 13, 2023 12:00am tiZANidine 4 mg oral tablet (3 sources) Central alpha-2 Adrenergic Agonist Start: 09-28-2023 End: 03-19-2024 take 1 tablet by mouth every eight hours for muscle spasms tiZANidine (Zanaflex) 4 MG tablet Indications: Chronic midline thoracic back pain Take 1 tablet (4 mg) by mouth every 8 (eight) hours if needed for muscle spasms for up to 10 days 30 tablet 09/28/2023 03/19/2024 Discontinued (Therapy completed) Vitamin D3 (2 sources) Start: 11-01-2019 Vitamin D3 Refills(s) 0 Start Date: 11/01/19 Status: Ordered Problems Active Problems Problem Classification Problem Date Documented Date Episodic/Chronic Alcohol-related disorders (1 source) Alcohol abuse with intoxication, unspecified; Translations: [ALCOHOL ABUSE WITH INTOXICATION UNS] Onset: 2 Chronic Cancer of kidney and renal pelvis (2 sources) Renal cell carcinoma 11-01-2019 Chronic Cancer of prostate (9 sources) Malignant tumor of prostate; Translations: [Malignant neoplasm of prostate] Onset: 4 11-01-2019 Chronic Chronic kidney disease (12 sources) Chronic kidney disease stage 3; Translations: [Chronic kidney disease, stage III (moderate)] Onset: 4 10-13-2023 Chronic Chronic obstructive pulmonary disease and bronchiectasis (9 sources) Pulmonary emphysema; Translations: [Emphysema, unspecified] Onset: 3 05-10-2023 Chronic Deficiency and other anemia (1 source) Anemia in chronic kidney disease; Translations: [Anemia in chronic kidney disease] Chronic Deficiency and other anemia (1 source) Anemia in chronic kidney disease Chronic Disorders of lipid metabolism (20 sources) Hyperlipidemia, unspecified; Translations: [Dyslipidemia] Onset: 3 Chronic Esophageal disorders (1 source) Gastro-esophageal reflux disease with esophagitis; Translations: [Gastroesophageal reflux disease with esophagitis without hemorrhage] 03-27-2024 Chronic Essential hypertension (13 sources) Essential (primary) hypertension; Translations: [Hypertensive disorder] Onset: 3 11-01-2019 Chronic Genitourinary congenital anomalies (9 sources) Renal agenesis and dysgenesis; 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, unilateral] Onset: 2 Resolved: 2 Chronic Genitourinary symptoms and ill-defined conditions (6 sources) History of urinary tract infection; Translations: [Increased frequency of urination] 11-09-2019 Episodic Hyperplasia of prostate (13 sources) Benign prostatic hypertrophy with outflow obstruction; [...] origin)] Onset: 2 Resolved: 2 Chronic Other injuries and conditions due to external causes (8 sources) Injury of right ankle; Translations: [Unspecified injury of right ankle, initial encounter] Onset: 4 03-19-2024 Episodic Other lower respiratory disease (4 sources) Other nonspecific abnormal finding of lung field; Translations: [OTH NONSPECIFIC ABN FIND LNG FIELD] Onset: 3 Episodic Other non-traumatic joint disorders (2 sources) Acute ankle pain; Translations: [Pain in right ankle and joints of right foot] 03-19-2024 Episodic Other nutritional; endocrine; and metabolic disorders (2 sources) Hypomagnesemia; Translations: [Hypomagnesemia] 10-13-2023 Chronic Other nutritional; endocrine; and metabolic disorders (2 sources) Hypomagnesemia; Translations: [Disorders of magnesium metabolism] Chronic Other nutritional; endocrine; and metabolic disorders (4 sources) Hyperuricemia without signs of inflammatory arthritis and tophaceous disease; Translations: [Other abnormal blood chemistry] Episodic Other nutritional; endocrine; and metabolic disorders (3 sources) Hyperuricemia; Translations: [Hyperuricemia without signs of inflammatory arthritis and tophaceous disease] 10-13-2023 Episodic Other upper respiratory infections (7 sources) Chronic sinusitis, unspecified; Translations: [Unspecified sinusitis (chronic)] Onset: 4 11-24-2023 Chronic Residual codes; unclassified (6 sources) Obstructive sleep [...] absence of kidney] 10-13-2023 Episodic Substance-related disorders (19 sources) Nicotine dependence; Translations: [Nicotine dependence, unspecified, [...] Translations: [UNSPECIFIED ABDOMINAL PAIN] Onset: 01-01-2022 Episodic Cancer of kidney and renal pelvis (11 sources) History of malignant neoplasm of kidney; Translations: [Personal history of other malignant neoplasm of kidney] Onset: 05-10-2023 Episodic Cancer of prostate (15 sources) Personal history of malignant neoplasm of prostate; Translations: [History of malignant neoplasm of prostate] Onset: 10-11-2022 Episodic Chronic kidney disease (8 sources) Chronic kidney disease; Translations: [Chronic kidney disease, stage III (moderate)] Onset: 06-18-2021 Resolved: 06-18-2021 E Codes: Unspecified (1 source) Blood alcohol level of 240 mg/100 ml or more; Translations: [BLOOD ALCOHOL LV 240 MG/100 ML/MORE] Onset: 04-12-2022 Episodic Gastrointestinal hemorrhage (7 sources) Hematemesis; Translations: [Hematemesis] Onset: 08-23-2023 Resolved: 09-28-2023 09-28-2023 Episodic Malaise and fatigue (1 source) Weakness; Translations: [WEAKNESS] Onset: 04-12-2022 Episodic Mood disorders (7 sources) Mood disorders Onset: 05-10-2023 05-10-2023 Other aftercare (1 source) Other skilled nursing (current) drug therapy; Translations: [OTH [employer] REFIN[employer] WORKER CURRENT DRUG THERAPY] Onset: 04-12-2022 Episodic Other aftercare (7 sources) Post-discharge follow-up; Translations: [Encounter for follow-up examination after completed treatment for conditions other than malignant neoplasm] Onset: 08-23-2023 08-23-2023 Episodic Other connective tissue disease (1 source) Pain in left leg; Translations: [PAIN IN LEFT LEG] Onset: 01-04-2022 Episodic Other nervous system disorders (1 source) Slurred speech; Translations: [SLURRED SPEECH] Onset: 04-12-2022 Episodic Other non-traumatic joint disorders (7 sources) Chronic pain of right upper limb; Translations: [Pain in right shoulder] Onset: 09-28-2023 09-28-2023 Episodic Other non-traumatic joint disorders (7 sources) Hip pain; Translations: [Pain in left hip] Onset: 09-28-2023 09-28-2023 Episodic Other screening for suspected conditions (not mental disorders or infectious disease) (17 sources) Other specified abnormal findings of blood chemistry; Translations: [Raised prostate specific antigen] Onset: 02-16-2022 Episodic Other upper respiratory infections (10 sources) Acute upper respiratory infection; Translations: [Acute upper respiratory infection, unspecified] Onset: 05-10-2023 05-10-2023 Episodic Residual codes; unclassified (4 sources) Altered mental status, unspecified; Translations: [ALTERED MENTAL STATUS UNSPECIFIED] Onset: 04-08-2022 Episodic Spondylosis; intervertebral disc disorders; other back problems (7 sources) Chronic thoracic back pain; Translations: [Pain in thoracic spine] Onset: 08-23-2023 08-23-2023 Episodic Results Test Name Value Interpretation Reference Range Facility No Panel Informationon 03-19 [facility] SARS-COV-2 AG*on 03-19-2024 SARS-CoV-2 (COVID-19) RNA PAUL+probe Ql (Unsp spec) Negative NEGATIVE [facility] Comment on above: This test has not be en FDA cleared or approved, but has been authorized by the FDA under an Emergency Use Authorization (EUA) for use by authorized laboratories certified under CLIA that meet the requirements to perform moderate or high complexity testing. This test has been authorized only for the detection of proteins from SARS-CoV-2, not for any other viruses or pathogens. The emergency use of this test is authorized for the duration of the declaration that circumstances exist justifying the authorization of emergency use of in vitro diagnostic tests for detection and/or diagnosis of Covid-19 under section 564(b)(1) of the Act, 21 U.S.C. 360bbb-3(b)(1), unless the declaration is terminated or authorization is revoked sooner. [facility] INFLUENZA A AND B AGon 1 INFLUENZA VIRUS A ANTIGEN Negative [facility] Comment on above: Negative for Flu A p rotein antigen. Infection due to Flu A cannot be ruled out. Flu A antigen in the sample may be below the detection limit of the test. INFLUENZA VIRUS B ANTIGEN Negative [facility] Comment on above: Negative for Flu B p rotein antigen. Infection due to Flu B cannot be ruled out. Flu B antigen in the sample may be below the detection limit of the test. Ambulatory Visit Summaryon 0 01-17-2024 Ambulatory Visit Summary Ambulatory Visit Summary ABBEY MUSTAFA :1955 Visit Date:01/17/2024 Ambulatory Visit Instructions Your Diagnosis Rising PSA following treatment for malignant neoplasm of prostate Personal history of prostate cancer BPH with obstruction/lower urinary tract symptoms Personal history of renal cell carcinoma Your Care Team Attending Physician - Carlos HOLLINS MD Primary Care Physician - SHAIKH GAGNON MD This Is Your Medications List tamsulosin [...] Carlos HOLLINS MD Where: [facility] [address] [place] [address]- You Need to Schedule the Following Appointments Follow Up with Carlos HOLLINS MD, CONRAD When: Where: [address] [place] [phone]- Medications What How Much When Instructions Changed tamsulosin (tamsulosin 0.4 mg Cap) 1 Capsules By Mouth Every day Duration: 90 Days Pickup at [facility] Unchanged allopurinol (allopurinol 100 mg Tab) [...] physician if questions or concerns Pharmacy Information [facility]: [address] [place], [place] [phone] Allergies No Known Medication Allergies Problems Ongoing [...] care pr (more content not included)... Normal [facility] Urology Office/Clinic Noteon 01-17-2024 Urology Office/Clinic [...] - 0.23 Pt believes he had a Primitivo 7. Completed at [facility]. [1] S/p brachytherapy 03/24/11. PSA decreased [...] 0.4 mg qd. Refill sent to [facility]. 4. Personal history of renal cell carcinoma [...] Day, URL [address] [place] [id number]- Additional Instructions: 4 mos with PSA Patient [...] with voice recognition artificial intelligence software, specifically [employer], [employer] and or [employer]. Substitutions may have occurred due to the [...] Left nephrect (more content not included)... Normal [facility] Comment on above: Result Comment: Elec tronically Signed By: Carlos HOLLINS MD\.br\Date and Time Signed: 01/17/24 08:35 EDT\.br\Electronically Co-Signed By: Lauerl Bradley\.br\Date and Time Co-Signed: 01/17/24 08:31 EDT ED Note-Physicianon 10-20-19 ED Note-Physician [id number] 0#1.00TIFF Normal [facility] Lab Reportson 10-20-2023 Lab Reports [id number] 9#1.00TIFF Normal [facility] Lab Reports [id number] 2#1.00TIFF Normal [facility] RAD - CT Reporton 10-20-2023 RAD - CT Report [id number] 5#1.00TIFF Normal [facility] Screenson 10-20-2023 Screens [id number] #1.00TIFF Normal [facility] Ambulatory Visit Summaryon 0 10-17-2023 Ambulatory Visit Summary ABBEY MUSTAFA :1955 Visit Date:10/17/2023 Ambulatory Visit Instructions Your [...] Follow-Up Appointments Tuesday 9:45 AM EDT With: GURVINDER HENDRICKSON, Carlos Day Where: [facility] Heri Guzman [facility] Patient Educationon 10-17-19 24 Patient Education [...] likelihood that the cancer will spread. ? Primitivo 6 or lower: This indicates that the cancer cells look similar to normal prostate cells (well differentiated). ? Primitivo 7: This indicates that the cancer cells look somewhat similar to normal prostate cells (moderately differentiated). ? [place] 8, 9, or 10: This indicates that [...] be (more content not included)... Normal [facility] Urology Office/Clinic Noteon 10-17-2023 Urology Office/Clinic Note Chief Complaint 1 year follow up HPI Staff 1 year follow up w/PSA *Taking Flomax 0.4 mg qd S/P Lt Nephrectomy 2000 Pt was seen at [facility] on 09/06/23 due to left rib pain. BUN 36, Creatinine 1.09 10/04/23. BUN 26. Creatinine 1.33 09/06/23 CT SCAN 08/12/23 PSA: 10/26/19 - 0.05 08/10/21 - 0.05 10/11/22 - <0.13 09/30/23 - 0.90 Dysuria: denies pain or burning Incomplete bladder emptying: denies Hematuria: yes 6 weeks ago, went to [facility], vomiting blood Frequency: 3x a day [...] with voice recognition artificial intelligence software, specifically [employer], [employer] and or [employer]. Substitutions may have occurred due to the inherent limitations of voice recognition and artificial intelligence software. 1. Rising PSA following treatment for malignant neoplasm of prostate (R97.21: Rising PSA following treatment for malignant neoplasm of prostate) PSA: 10/26/19 - 0.05 08/10/21 - 0.05 10/11/22 - <0.13 09/30/23 - 0.90 S/p brachytherapy 03/24/11. Pt believes he had a Primitivo 7. Completed at [facility]. Rise in PSA is concerning [...] adenocarcinoma the prostate, previously treated at the [facility] with prostate brachytherapy now has a [...] Information GURVINDER HENDRICKSON, Carlos Day, URL [address] [place] [id number]- Additional Instructions: 3 mos w/ PSA Patient Education Prostate Cancer I, Tala Lugo, personally scribed for Dr. Hollins on 10/17/2023 10:42:59. . Documentation recorded by the scribe, Tala Lugo, accurately reflects the services(s) I performed and decisions made by me. Authenticated by Dr. Hollins on 10/17/2023 10:47:47. Problem List/Past (more content not included)... Normal [facility] Comment on above: Result Comment: Elec tronically Signed By: Carlos HOLLINS MD\.br\Date and Time Signed: 10/17/23 10:50 EDT Automated epithelial cells c ount in urine sediment (number/area)on 10-04-2023 Epithelial cells Auto (Urine sed) [#/Area] NONE SEEN #/LPF NONE/RARE [facility] Automated leukocytes count i n urine sediment (number/area)on 10-04-2023 WBC Auto (Urine sed) [#/Area] NONE SEEN #/HPF 0-2 [facility] Automated urine specific gra vity by refractometryon 10-04-2023 Specific gravity Refractometry automated (U) [Rel density] 1.025 1.005-1.025 [facility] Bilirubin Auto test strip (U ) [Mass/Vol]on 10-04-2023 Bilirubin (U) [Mass/Vol] Negative NEGATIVE [facility] Casts typing in urine sedime nt by light microscopyon 10-04-2023 Casts LM Nom (Urine sed) NONE SEEN #/LPF NONE SEEN [facility] Color Auto (U)on 10-04-2023 Color (U) YELLOW YELLOW [facility] Erythrocyte distribution wid th Auto (RBC) [Ratio]on 10-04-2023 Erythrocyte distribution width (RBC) [Ratio] 13.5 % 11.0-15.0 [facility] Estimated glomerular filtrat ion rate (GFR) non- Americanon 10-04-2023 GFR/1.73 sq M.predicted among non-blacks MDRD (S/P/Bld) [Vol rate/Area] mL/min/{1.73_m2} >=60 [facility] Hematocrit Auto (Bld) [Volum e fraction]on 10-04-2023 Hematocrit (Bld) [Volume fraction] 38.9 % 42.0-54.0 [facility] Hemoglobin [Mass/volume] in Bloodon 10-04-2023 Hemoglobin (Bld) [Mass/Vol] 13.2 g/dL 14.0-18.0 [facility] Iron binding capacity [Mass/ volume] in Serum or Plasmaon 10-04-2023 Iron binding capacity [Mass/Vol] 274.0 ug/dL 250.0-450.0 [facility] Iron saturation [Mass Fracti on] in Serum or Plasmaon 10-04-2023 Iron saturation [Mass fraction] 29.2 % [facility] Ketones Auto test strip (U) [Mass/Vol]on 10-04-2023 Ketones (U) [Mass/Vol] Negative NEGATIVE [facility] Laboratory - Chemistry and C hemistry - challengeon 10-04-2023 Albumin [Mass/Vol] 3.6 g/dL 3.4-5.0 [facility] Calcium [Mass/Vol] 9.4 mg/dL 8.5-10.1 [facility] Chloride [Moles/Vol] 104 mmol/L 98-107 [facility] CO2 [Moles/Vol] 24.4 mmol/L 21.0-32.0 [facility] Creatinine [Mass/Vol] 1.09 mg/dL 0.70-1.30 [facility] Ferritin [Mass/Vol] 257.0 ng/mL 26.0-388.0 [facility] GFR/1.73 sq M.predicted MDRD (S/P/Bld) [Vol rate/Area] mL/min/{1.73_m2} >=60 [facility] Glucose [Mass/Vol] 117 mg/dL 74-106 [facility] Iron [Mass/Vol] 80.0 ug/dL 65.0-175.0 [facility] Potassium [Moles/Vol] 3.9 mmol/L 3.5-5.1 [facility] Sodium [Moles/Vol] 139 mmol/L 136-145 [facility] Urate [Mass/Vol] 5.6 mg/dL 3.5-7.2 [facility] Urea nitrogen [Mass/Vol] 36.0 mg/dL 7.0-18.0 [facility] Urea nitrogen/Creatinine [Mass ratio] 33.0 mg/mg [facility] Laboratory - Urinalysison Protein (U) [Mass/Vol] 16.2 mg/dL <=11.9 [facility] Leukocytes [#/volume] correc yoandy for nucleated erythrocytes in Blood by Automated counon 10-04-2023 WBC corrected for nucl RBC Auto (Bld) [#/Vol] 11.9 10 3/uL 4.0-11.0 [facility] MCH Auto (RBC) [Entitic mass ]on 10-04-2023 MCH (RBC) [Entitic mass] 31.6 pg 25.9-34.0 [facility] MCHC Auto (RBC) [Mass/Vol]on 10-04-2023 MCHC (RBC) [Mass/Vol] 33.9 g/dL 29.9-35.2 [facility] MCV Auto (RBC) [Entitic vol] on 10-04-2023 MCV (RBC) [Entitic vol] 93.1 fL 80.0-94.0 [facility] Mucus LM Ql (Urine sed)on Mucus Ql (Urine sed) NONE SEEN NONE SEEN [facility] No Panel Informationon 10-03 25-Hydroxy Vitamin D Total 29.7 ng/mL [facility] Comment on above: <20 ng/mL Vit D defi cient20-<30 ng/mL Vit D [id number] ng/mL Vit D sufficient>100 ng/mL Potential Toxicity Parathyroid Hormone (Intact) 35 pg/mL 15-65 [facility] Comment on above: Performed at: [employer] [address] [id number] Director: Raymundo Wynn PhD, Phone: [phone] Phosphorus Level 4.4 mg/dL 2.6-4.7 [facility] Urine Random Creatinine 102.05 mg/dL 20.00-300.00 [facility] Platelet mean volume Auto (B ld) [Entitic vol]on 10-04-2023 Platelet mean volume (Bld) [Entitic vol] 10.5 fL 9.5-13.5 [facility] Platelets Auto (Bld) [#/Vol] on 10-04-2023 Platelets (Bld) [#/Vol] 244 10 3/uL 150-450 [facility] Protein Auto test strip (U) [Mass/Vol]on 10-04-2023 Protein (U) [Mass/Vol] Negative NEG/TRACE [facility] RBC Auto (Bld) [#/Vol]on RBC (Bld) [#/Vol] 4.18 10 6/uL 4.70-6.10 [facility] Serum or plasma anion gap de terminationon 10-04-2023 Anion gap [Moles/Vol] 14.5 mmol/L [facility] Specific gravity Auto test s trip (U) [Rel density]on 10-04-2023 Specific gravity (U) [Rel density] CLEAR CLEAR [facility] Urine bacteria detection by automated methodon 10-04-2023 Bacteria Auto Ql (U) NONE SEEN #/HPF NONE SEEN [facility] Urine glucose measurement by test strip (mass/volume)on 10-04-2023 Glucose Test strip (U) [Mass/Vol] Negative NEGATIVE [facility] Urine hemoglobin detection b y automated test stripon 10-04-2023 Hemoglobin Auto test strip Ql (U) Negative NEGATIVE [facility] Urine nitrite detection by a utomated test stripon 10-04-2023 Nitrite Auto test strip Ql (U) Negative NEGATIVE [facility] Urine protein/creatinine rat ioon 10-04-2023 Protein/Creatinine (U) [Ratio] 0.16 [facility] Urine sediment crystal ident ification by light microscopyon 10-04-2023 Crystals LM Nom (Urine sed) None Seen #/HPF None Seen [facility] Urine sediment leukocyte cou nt by microscopy (number/high power field)on 10-04-2023 WBC LM.HPF (Urine sed) [#/Area] 0-2 #/HPF NONE SEEN [facility] Urobilinogen Auto test strip (U) [Mass/Vol]on 10-04-2023 Urobilinogen Qn (U) 0.2 {Dash'U}/dL 0.2-1.0 [facility] pH Auto test strip (U)on pH (U) 6.0 [pH] 5.0-9.0 [facility] Lab Reportson 09-30-2023 Lab Reports [id number] #[id number] Normal [facility] CT CHEST WO CONon 10-11-2022 CT [...] LUCAS GOLDSTEIN Date: 2022-10-11 15:31 Normal [facility] CBC AUTO DIFFon 08-23-2022 BASO # 0.0 103/ul Normal 0.0-0.1 [facility] Comment on above: Performed By: #### C BC #### [facility] Laboratory [address] [address] [address] Jesus White Basophils/100 WBC (Bld) 0.5 % Normal 0.2-2.0 [facility] Comment on above: Performed By: #### C BC #### [facility] [address] [address] [address] Jesus White EO # 0.2 103/ul Normal 0.0-0.7 [facility] Comment on above: Performed By: #### C BC #### [facility] [address] [address] [address] Jesus White Eosinophils/100 WBC (Bld) 2.2 % Normal 0.9-7.0 [facility] Comment on above: Performed By: #### C BC #### [facility] [address] [address] [address] Jesus White Erythrocyte distribution width (RBC) [Ratio] 13.3 % Normal 11.0-15.0 [facility] Comment on above: Performed By: #### C BC #### [facility] [address] [address] [address] Jesus White Hematocrit (Bld) [Volume fraction] 43.0 % Normal 42.0-54.0 [facility] Comment on above: Performed By: #### C BC #### [facility] [address] [address] [address] Jesus White Hemoglobin (Bld) [Mass/Vol] 14.4 g/dL Normal 14.0-18.0 [facility] Comment on above: Performed By: #### C BC #### [facility] [address] [place] [address] Dr. Jesus White IG # 0.02 10e3/ul Normal 0.00-0.03 [facility] Comment on above: Performed By: #### C BC #### [facility] [address] [place] [address] Dr. Jesus White IG % 0.2 % Normal 0.0-0.5 [facility] Comment on above: Performed By: #### C BC #### [facility] [address] [place] [address] Dr. Jesus White LYMPH # 3.0 103/ul Normal 1.2-3.8 [facility] Comment on above: Performed By: #### C BC #### [facility] [address] [place] [address] Dr. Jesus White Lymphocytes/100 WBC (Bld) 35.8 % Normal 20.5-60.0 [facility] Comment on above: Performed By: #### C BC #### [facility] [address] [place] [address] Dr. Jesus White MANUAL DIFF REQ NO Normal [facility] Comment on above: Performed By: #### C BC #### [facility] [address] [place] [address] Dr. Jesus White MCH (RBC) [Entitic mass] 30.6 pg Normal 25.9-34.0 [facility] Comment on above: Performed By: #### C BC #### [facility] [address] [place] [address] Dr. Jesus White MCHC (RBC) [Mass/Vol] 33.5 g/dL Normal 29.9-35.2 [facility] Comment on above: Performed By: #### C BC #### [facility] [address] [place] [address] Dr. Jesus White MCV (RBC) [Entitic vol] 91.5 fL Normal 80.0-94.0 [facility] Comment on above: Performed By: #### C BC #### [facility] [address] [place] [address] Dr. Jesus White MONO # 0.8 103/ul Normal 0.3-0.8 [facility] Comment on above: Performed By: #### C BC #### [facility] [address] [place] [address] Dr. Jesus White Monocytes/100 WBC (Bld) 9.1 % Normal 1.7-12.0 [facility] Comment on above: Performed By: #### C BC #### [facility] [address] [place] [address] Dr. Jesus White NEUT # 4.4 103/ul Normal 1.4-6.5 [facility] Comment on above: Performed By: #### C BC #### [facility] [address] [place] [address] Dr. Jesus White Neutrophils/100 WBC (Bld) 52.2 % Normal 43.0-75.0 [facility] Comment on above: Performed By: #### C BC #### [facility] [address] [place] [address] Dr. Jesus White Platelet mean volume (Bld) [Entitic vol] 9.8 fL Normal 9.5-13.5 [facility] Comment on above: Performed By: #### C BC #### [facility] [address] [place] [address] Dr. Jesus White PLT 236 103/ul Normal 150-450 [facility] Comment on above: Performed By: #### C BC #### [facility] [address] [place] [address] Dr. Jesus White RBC 4.70 106/ul Normal 4.70-6.10 [facility] Comment on above: Performed By: #### C BC #### [facility] [address] [place] [address] Dr. Jesus White WBC 8.4 103/ul Normal 4.0-11.0 [facility] Comment on above: Performed By: #### C BC #### [facility] [address] [place] [address] Dr. Jesus White LIPID PROFILEon 08-23-2022 CHOL-HDL RATIO NORM SEE BELOW Normal [facility] Comment on above: Result Comment: 3.3 - 4.4 LOW RISK 4.4 - 7.1 AVERAGE RISK 7.1 - 11.0 MODERATE RISK >11.0 HIGH RISK Performed By: #### C MP, LIPID #### [facility] [address] [address] [address] Jesus White Cholesterol [Mass/Vol] 121 mg/dL Normal <=200 [facility] Comment on above: Performed By: #### C MP, LIPID #### [facility] [address] [address] [address] Jesus White Cholesterol in HDL [Mass/Vol] 37 mg/dL Critically low 40-60 [facility] Comment on above: Performed By: #### C MP, LIPID #### [facility] [address] [address] [address] Jesus White Cholesterol in LDL [Mass/Vol] 59.6 mg/dL Normal [facility] Comment on above: Performed By: #### C MP, LIPID #### [facility] [address] [address] [address] Jesus White Cholesterol.total/Ch olesterol in HDL [Mass ratio] 3.3 {ratio} Normal [facility] Comment on above: Performed By: #### C MP, LIPID #### [facility] [address] [address] [address] Jesus White HDL NORMAL > or = 60 mg/dl - LOW CARDIOVASCULAR RISK <40 mg/dl - HIGH CARDIOVASCULAR RISK Normal [facility] Comment on above: Performed By: #### C MP, LIPID #### [facility] [address] [address] [address] Jesus White LDL CALC NORMAL SEE BELOW Normal [facility] Comment on above: Result Comment: <100 mg/dl OPTIMAL 100 - 129 mg/dl NEAR OR ABOVE OPTIMAL 130 - 159 mg/dl BORDERLINE HIGH 160 - 189 mg/dl HIGH >190 mg/dl VERY HIGH Performed By: #### C MP, LIPID #### [facility] [address] [address] [address] Jesus White Triglyceride [Mass/Vol] 122 mg/dL Normal <=150 [facility] Comment on above: Performed By: #### C MP, LIPID #### [facility] [address] [place] [address] Dr. Jesus White VLDL CALC 24.4 mg/dL Normal [facility] Comment on above: Performed By: #### C MP, LIPID #### [facility] [address] [place] [address] Dr. Jesus White PROF 14(COMP METB)on 023 Albumin [Mass/Vol] 3.8 g/dL Normal 3.4-5.0 [facility] Comment on above: Performed By: #### C MP, LIPID #### [facility] [address] [place] [address] Dr. Jesus White Albumin/Globulin [Mass ratio] 1.1 {ratio} Normal [facility] Comment on above: Performed By: #### C MP, LIPID #### [facility] [address] [place] [address] Dr. Jesus White ALP [Catalytic activity/Vol] 46 U/L Normal 46-116 [facility] Comment on above: Performed By: #### C MP, LIPID #### [facility] [address] [place] [address] Dr. Jesus White ALT [Catalytic activity/Vol] 37 U/L Normal 16-63 [facility] Comment on above: Performed By: #### C MP, LIPID #### [facility] [address] [place] [address] Dr. Jesus White Anion gap [Moles/Vol] 11.3 mmol/L Normal [facility] Comment on above: Performed By: #### C MP, LIPID #### [facility] [address] [place] [address] Dr. Jesus White AST [Catalytic activity/Vol] 28 U/L Normal 15-37 [facility] Comment on above: Performed By: #### C MP, LIPID #### [facility] [address] [place] [address] Dr. Jesus White Bilirubin [Mass/Vol] 0.5 mg/dL Normal 0.2-1.0 [facility] Comment on above: Performed By: #### C MP, LIPID #### [facility] [address] [place] [address] Dr. Jesus White Calcium [Mass/Vol] 9.5 mg/dL Normal 8.5-10.1 [facility] Comment on above: Performed By: #### C MP, LIPID #### [facility] [address] [address] [address] Jesus White Chloride [Moles/Vol] 104 mmol/L Normal 98-107 [facility] Comment on above: Performed By: #### C MP, LIPID #### [facility] [address] [place] [address] Dr. Jesus White CO2 [Moles/Vol] 28.9 mmol/L Normal 21.0-32.0 [facility] Comment on above: Performed By: #### C MP, LIPID #### [facility] [address] [place] [address] Dr. Jesus White Creatinine [Mass/Vol] 0.99 mg/dL Normal 0.70-1.30 [facility] Comment on above: Performed By: #### C MP, LIPID #### [facility] [address] [place] [address] Dr. Jesus White EGFR-AF LAO >60 Normal >=60 [facility] Comment on above: Performed By: #### C MP, LIPID #### [facility] [address] [place] [address] Dr. Jesus White EGFR-NON AF LAO >60 Normal >=60 [facility] Comment on above: Performed By: #### C MP, LIPID #### [facility] [address] [place] [address] Dr. Jesus White Globulin (S) [Mass/Vol] 3.6 g/dL Normal [facility] Comment on above: Performed By: #### C MP, LIPID #### [facility] [address] [place] [address] Dr. Jesus White Glucose [Mass/Vol] 92 mg/dL Normal 74-106 [facility] Comment on above: Performed By: #### C MP, LIPID #### [facility] [address] [address] [address] Jesus White Potassium [Moles/Vol] 4.2 mmol/L Normal 3.5-5.1 [facility] Comment on above: Performed By: #### C MP, LIPID #### [facility] [address] [address] [address] Jesus White Protein [Mass/Vol] 7.4 g/dL Normal 6.4-8.2 [facility] Comment on above: Performed By: #### C MP, LIPID #### [facility] [address] [address] [address] Jesus White Sodium [Moles/Vol] 140 mmol/L Normal 136-145 [facility] Comment on above: Performed By: #### C MP, LIPID #### [facility] [address] [address] [address] Jesus White Urea nitrogen [Mass/Vol] 12.0 mg/dL Normal 7.0-18.0 [facility] Comment on above: Performed By: #### C MP, LIPID #### [facility] [address] [address] [address] Jesus White Urea nitrogen/Creatinine [Mass ratio] 12.1 mg/mg Normal [facility] Comment on above: Performed By: #### C MP, LIPID #### [facility] [address] [address] [address] LUNG CANCER SCREENINGon [...] by: LUCAS GOLDSTEIN Date: 2022-07-05 12:[address] [facility] BLOOD GASES BTYon 04-08-2022 [address] Normal [facility] Comment on above: Performed By: #### A BG ####[facility] [address] [address]Dr. Jesus White ALLENS TEST Positive Normal [facility] Comment on above: Performed By: #### A BG ####[facility] [address] [address]Dr. Jesus White Base excess Calc (Bld) [Moles/Vol] -0.4000 mmol/L Normal -2.0-2.0 [facility] Comment on above: Performed By: #### A BG ####[facility] [address] [address]. Jesus White BIPAP PRESSURE Normal [facility] Comment on above: Performed By: #### A BG ####[facility] [address] [address]Dr. Jesus White CPAP Normal [facility] Comment on above: Performed By: #### A BG ####[facility] [address] [address] Jesus White FIO[address] [facility] Comment on above: Performed By: #### A BG ####[facility] [address] [address]. Jesus White HCO3 (Bld) [Moles/Vol] 24.7 mmol/L Normal 22.0-26.0 [facility] Comment on above: Performed By: #### A BG ####[facility] [address] [place], [place] [address]Dr. Jesus White LPM Normal [facility] Comment on above: Performed By: #### A BG ####[facility] [address] [place], [place] [address]Dr. Jesus White MINUTE VOLUME Normal [facility] Comment on above: Performed By: #### A BG ####[facility] [address] [place], [place] [address]Dr. Jesus White Oxygen (Bld) [Partial pressure] 75.3 mm[Hg] Critically low 80.0-100.0 [facility] Comment on above: Performed By: #### A BG ####[facility] [address] [place], [place] [address]Dr. Jesus White Oxygen saturation in Blood 94.7 % Critically low 95.0-100.0 [facility] Comment on above: Performed By: #### A BG ####[facility] [address] [place], [place] [address]Dr. Jesus White PCO2 42.0 mmHg Normal 35.0-45.0 [facility] Comment on above: Performed By: #### A BG ####[facility] [address] [place], [place] [address]Dr. Jesus White PEEP Normal [facility] Comment on above: Performed By: #### A BG ####[facility] [address] [place], [place] [address]Dr. Jesus White pH (Bld) 7.379 [pH] Normal 7.350-7.450 [facility] Comment on above: Performed By: #### A BG ####[facility] [address] [place], [place] [address]Dr. Jesus White PIP [facility] Comment on above: Performed By: #### A BG ####[facility] [address] [address]Dr. Jesus White PS [facility] Comment on above: Performed By: #### A BG ####[facility] [address] [address]Dr. Jesus White PUNCTURE SITE LR Normal [facility] Comment on above: Performed By: #### A BG ####[facility] [address] [address]Dr. Jesus White RATE [facility] Comment on above: Performed By: #### A BG ####[facility] [address] [address]Dr. Jesus White VENT MODE [facility] Comment on above: Performed By: #### A BG ####[facility] [address] [place], [place] [address]Dr. Jesus White [place] [facility] Comment on above: Performed By: #### A BG ####[facility] [address] [address]Dr. Jesus White CBC AUTO DIFFon 04-08-2022 BASO # 0.1 103/ul Normal 0.0-0.1 [facility] Comment on above: Performed By: #### C BC #### [facility] [address] [address] [address] Jesus White Basophils/100 WBC (Bld) 0.6 % Normal 0.2-2.0 [facility] Comment on above: Performed By: #### C BC #### [facility] [address] [address] [address] Jesus White EO # 0.2 103/ul Normal 0.0-0.7 [facility] Comment on above: Performed By: #### C BC #### [facility] [address] [address] [address] Jesus White Eosinophils/100 WBC (Bld) 1.5 % Normal 0.9-7.0 [facility] Comment on above: Performed By: #### C BC #### [facility] [address] [place] [address] Dr. Jesus White Erythrocyte distribution width (RBC) [Ratio] 13.2 % Normal 11.0-15.0 [facility] Comment on above: Performed By: #### C BC #### [facility] [address] [place] [address] Dr. Jesus White Hematocrit (Bld) [Volume fraction] 41.7 % Critically low 42.0-54.0 [facility] Comment on above: Performed By: #### C BC #### [facility] [address] [place] [address] Dr. Jesus White Hemoglobin (Bld) [Mass/Vol] 14.3 g/dL Normal 14.0-18.0 [facility] Comment on above: Performed By: #### C BC #### [facility] [address] [place] [address] Dr. Jesus White IG # 0.03 10e3/ul Normal 0.00-0.03 [facility] Comment on above: Performed By: #### C BC #### [facility] [address] [place] [address] Dr. Jesus White IG % 0.3 % Normal 0.0-0.5 [facility] Comment on above: Performed By: #### C BC #### [facility] [address] [place] [address] Dr. Jesus White LYMPH # 5.6 103/ul Critically high 1.2-3.8 [facility] Comment on above: Performed By: #### C BC #### [facility] [address] [place] [address] Dr. Jesus White Lymphocytes/100 WBC (Bld) 57.0 % Normal 20.5-60.0 [facility] Comment on above: Performed By: #### C BC #### [facility] [address] [place] [address] Dr. Jesus White MANUAL DIFF REQ NO Normal [facility] Comment on above: Performed By: #### C BC #### [facility] [address] [address] [address] Jesus White MCH (RBC) [Entitic mass] 31.4 pg Normal 25.9-34.0 [facility] Comment on above: Performed By: #### C BC #### [facility] [address] [place] [address] Dr. Jesus White MCHC (RBC) [Mass/Vol] 34.3 g/dL Normal 29.9-35.2 [facility] [facility] Comment on above: Performed By: #### C BC #### [facility] [address] [place] [address] Dr. Jesus White MCV (RBC) [Entitic vol] 91.6 fL Normal 80.0-94.0 [facility] Comment on above: Performed By: #### C BC #### [facility] [address] [place] [address] Dr. Jesus White MONO # 0.5 103/ul Normal 0.3-0.8 [facility] Comment on above: Performed By: #### C BC #### [facility] [address] [place] [address] Dr. Jesus White Monocytes/100 WBC (Bld) 5.1 % Normal 1.7-12.0 [facility] Comment on above: Performed By: #### C BC #### [facility] [address] [place] [address] Dr. Jesus White NEUT # 3.5 103/ul Normal 1.4-6.5 [facility] Comment on above: Performed By: #### C BC #### [facility] [address] [place] [address] Dr. Jesus White Neutrophils/100 WBC (Bld) 35.5 % Critically low 43.0-75.0 [facility] Comment on above: Performed By: #### C BC #### [facility] [address] [place] [address] Dr. Jesus White Platelet mean volume (Bld) [Entitic vol] 9.5 fL Normal 9.5-13.5 [facility] Comment on above: Performed By: #### C BC #### [facility] [address] [place], [place] [address] Dr. Jesus White PLT 222 103/ul Normal 150-450 [facility] Comment on above: Performed By: #### C BC #### [facility] [id number] Jesus White RBC 4.55 106/ul Critically low 4.70-6.10 [facility] Comment on above: Performed By: #### C BC #### [facility] [id number] Jesus White WBC 9.8 103/ul Normal 4.0-11.0 [facility] Comment on above: Performed By: #### C BC #### [facility] [address] STROKE HEAD WOon [...] ERNA LEON Date: 2022-04-08 18:50 Normal [facility] Covid-19 PCR (CVDTB)on SARS-CoV-2 (COVID-19) RNA PAUL+probe Ql (Unsp spec) Not detected Normal NOT DETECTED [facility] Comment on above: Result Comment: When diagnostic [...] for this test is supported by the [place] of Health and Human Service's declaration that [...] used). Performed By: #### C VDTBH #### [facility] [address] [place] [address] Dr. Jesus White ETHANOL (BLD ALC)on 04-08-20 22 ALC NOTE NOTE: 80 mg/dl is the legal limit for a blood alcohol level Normal [facility] Comment on above: Performed By: #### E TH ####[facility] [id number] [place] [address]Dr. Jesus White Ethanol [Mass/Vol] 344 mg/dL Normal [facility] Comment on above: Performed By: #### E TH ####[facility] [address] [place] [address]Dr. Jesus White PROF 14(COMP METB)on 022 Albumin [Mass/Vol] 3.5 g/dL Normal 3.4-5.0 [facility] Comment on above: Performed By: #### C JORGE, HSTROPN #### [facility] [address] [place] [address] Dr. Jesus White Albumin/Globulin [Mass ratio] 1.0 {ratio} Normal [facility] Comment on above: Performed By: #### C JORGE, HSTROPN #### [facility] [address] [place] [address] Dr. Jesus White ALP [Catalytic activity/Vol] 41 U/L Critically low 46-116 [facility] Comment on above: Performed By: #### C JORGE, HSTROPN #### [facility] [address] [place] [address] Dr. Jesus White ALT [Catalytic activity/Vol] 28 U/L Normal 16-63 [facility] Comment on above: Performed By: #### C JORGE, HSTROPN #### [facility] [address] [place] [address] Dr. Jesus White Anion gap [Moles/Vol] 12.1 mmol/L Normal [facility] Comment on above: Performed By: #### C JORGE, HSTROPN #### [facility] [address] [place] [address] Dr. Jesus White AST [Catalytic activity/Vol] 19 U/L Normal 15-37 [facility] Comment on above: Performed By: #### C JORGE, HSTROPN #### [facility] [address] [place] [address] Dr. Jesus White Bilirubin [Mass/Vol] 0.3 mg/dL Normal 0.2-1.0 [facility] Comment on above: Performed By: #### C JORGE, HSTROPN #### [facility] [address] [place] [address] Dr. Jesus White Calcium [Mass/Vol] 8.8 mg/dL Normal 8.5-10.1 [facility] Comment on above: Performed By: #### C JORGE, HSTROPN #### [facility] [address] [place] [address] Dr. Jesus White Chloride [Moles/Vol] 105 mmol/L Normal 98-107 [facility] Comment on above: Performed By: #### C MP, HSTROPN #### [facility] [address] [place] [address] Dr. Jesus White CO2 [Moles/Vol] 24.8 mmol/L Normal 21.0-32.0 [facility] Comment on above: Performed By: #### C MP, HSTROPN #### [facility] [address] [place] [address] Dr. Jesus White Creatinine [Mass/Vol] 1.53 mg/dL Critically high 0.70-1.30 [facility] Comment on above: Performed By: #### C MP, HSTROPN #### [facility] [address] [place] [address] [address] Jesus White EGFR-AF LAO 55 mL/min/1.73m2 Critically low >=60 [facility] Comment on above: Result Comment: Prev iously reported as: (blank) On 04/08/2022 19:15 By [facility] Performed By: #### C MP, HSTROPN #### [facility] [address] [address] [address] Jesus White EGFR-NON AF LAO 46 mL/min/1.73m2 Critically low >=60 [facility] Comment on above: Result Comment: Prev iously reported as: (blank) On 04/08/2022 19:15 By [facility] Performed By: #### C MP, HSTROPN #### [facility] [address] [place] [address] Dr. Jesus White Globulin (S) [Mass/Vol] 3.5 g/dL Normal [facility] Comment on above: Performed By: #### C MP, HSTROPN #### [facility] [address] [place] [address] Dr. Jesus White Glucose [Mass/Vol] 116 mg/dL Critically high 74-106 [facility] Comment on above: Performed By: #### C MP, HSTROPN #### [facility] [address] [place] [address] Dr. Jesus White Potassium [Moles/Vol] 3.9 mmol/L Normal 3.5-5.1 [facility] Comment on above: Performed By: #### C MP, HSTROPN #### [facility] [address] [address] [address] Jesus White Protein [Mass/Vol] 7.0 g/dL Normal 6.4-8.2 [facility] Comment on above: Performed By: #### C MP, HSTROPN #### [facility] [address] [address] [address] Jesus White Sodium [Moles/Vol] 138 mmol/L Normal 136-145 [facility] Comment on above: Performed By: #### C MP, HSTROPN #### [facility] [address] [address] [address] Jesus White Urea nitrogen [Mass/Vol] 17.0 mg/dL Normal 7.0-18.0 [facility] Comment on above: Performed By: #### C MP, HSTROPN #### [facility] [address] [address] [address] Jesus White Urea nitrogen/Creatinine [Mass ratio] 11.1 mg/mg Normal [facility] Comment on above: Performed By: #### C MP, HSTROPN #### [facility] [address] [address] [address] Jesus White PROTIMEon 04-08-2022 INR Coag (PPP) [Relative time] 1.00 {INR} Normal [facility] Comment on above: Performed By: #### P TT, PT ####[facility] [address] [place] [address]DrJordin White INR GUIDELINES SEE BELOW Normal The [facility] Comment on above: Result Comment: JULIET RED INR: 2.0 - 3.0 CONDITIONS NOT LISTED BELOW 2.5 - 3.5 FOR PROSTHETIC HEART VALVE REPLACEMENT 2.5 - 3.5 RECURRENT THROMBOSIS Performed By: #### P TT, PT ####[facility] [address] [place] [address]Dr. Jesus White PT Coag (PPP) [Time] 10.8 s Normal 9.0-11.6 [facility] Comment on above: Performed By: #### P TT, PT ####[facility] [address] [place] [address]DrJordin White PTTon 04-08-2022 aPTT Coag (Bld) [Time] 24.8 s Normal 22.3-36.2 [facility] Comment on above: Performed By: #### P TT, PT ####[facility] [address] [place] [address]DrJordin White TROPONIN, HIGH SENSITIVITYon 04-08-2022 HSTROP 16.7 pg/mL Normal 4.0-76.1 [facility] Comment on above: Result Comment: CUT- OFF POINTS HAVE BEEN ESTABLISHED BASED ON THE FOURTH UNIVERSAL DEFINITIONS OF MYOCARDIAL INFARCTION. THE UPPER REFERENCE LIMIT (URL) OF TROPONIN, DEFINED THE 99TH PERCENTILE OF cTnI DISTRIBUTION IN A REFERENCE POPULATION, HAS BEEN CONFIRMED THE DECISION THRESHOLD FOR NC DIAGNOSIS. Performed By: #### C MP, HSTROPN #### [facility] [address] [place] [address] Dr. Jesus White PROF CHEM 8 (BAS METB)on Anion gap [Moles/Vol] 13.3 mmol/L Normal [facility] Comment on above: Performed By: #### B MP #### [facility] [address] [place] [address] Dr. Jesus White Calcium [Mass/Vol] 9.7 mg/dL Normal 8.5-10.1 [facility] Comment on above: Performed By: #### B MP #### [facility] [address] [place] [address] Dr. Jesus White Chloride [Moles/Vol] 103 mmol/L Normal 98-107 [facility] Comment on above: Performed By: #### B MP #### [facility] [address] [place] [address] Dr. Jesus White CO2 [Moles/Vol] 28.4 mmol/L Normal 21.0-32.0 [facility] Comment on above: Performed By: #### B MP #### [facility] [address] [place] [address] Dr. Jesus White Creatinine [Mass/Vol] 1.21 mg/dL Normal 0.70-1.30 [facility] Comment on above: Performed By: #### B MP #### [facility] [address] [place] [address] Dr. Jesus White EGFR-AF LAO >60 Normal >=60 [facility] Comment on above: Performed By: #### B MP #### [facility] [address] [place] [address] Dr. Jesus White EGFR-NON AF LAO 60 mL/min/1.73m2 Normal >=60 [facility] Comment on above: Performed By: #### B MP #### [facility] [address] [address] [address] Jesus White Glucose [Mass/Vol] 95 mg/dL Normal 74-106 [facility] Comment on above: Performed By: #### B MP #### [facility] [address] [address] [address] Jesus White Potassium [Moles/Vol] 3.7 mmol/L Normal 3.5-5.1 [facility] Comment on above: Performed By: #### B MP #### [facility] [address] [address] [address] Jesus White Sodium [Moles/Vol] 141 mmol/L Normal 136-145 [facility] Comment on above: Performed By: #### B MP #### [facility] [address] [address] [address] Jesus White Urea nitrogen [Mass/Vol] 12.0 mg/dL Normal 7.0-18.0 [facility] Comment on above: Performed By: #### B MP #### [facility] [address] [address] [address] Jesus White Urea nitrogen/Creatinine [Mass ratio] 9.9 mg/mg Normal [facility] Comment on above: Performed By: #### B MP #### [facility] [address] [address] [address] Jesus White ER URINE PROFILEon 2 Bilirubin Ql (U) Negative Normal NEGATIVE [facility] Comment on above: Performed By: #### CALEB GOULD ####[facility] [address] [place] [id number] White Clarity (U) CLEAR Normal CLEAR [facility] Comment on above: Performed By: #### VALERIO GOULDRO ####[facility] [address] [place] [id number] White Color (U) LT. YELLOW Normal YELLOW [facility] Comment on above: Performed By: #### CALEB GOULD ####[facility] [address] [place] [address]Dr. Jesus DAVED A micrscopic examination will be performed if indicated. Normal [facility] Comment on above: Performed By: #### CALEB GOULD ####[facility] [address] [place] [address]Dr. Jesus White Glucose Ql (U) Negative Normal NEGATIVE [facility] Comment on above: Performed By: #### CALEB GOULD ####[facility] [address] [place] [address]Dr. Jesus White Hemoglobin Ql (U) Negative Normal NEGATIVE The [facility] Comment on above: Performed By: #### CALEB GOULD ####[facility] [address] [place], [place] [address]Dr. Jesus White Ketones Ql (U) Negative Normal NEGATIVE [facility] Comment on above: Performed By: #### CALEB GOULD ####[facility] [address] [place], [place] [address]Dr. Jesus White LEUKOCYTES Negative Normal NEGATIVE [facility] Comment on above: Performed By: #### CALEB GOULD ####[facility] [address] [place], [place] [address]Dr. Jesus White Nitrite Ql (U) Negative Normal NEGATIVE [facility] Comment on above: Performed By: #### CALEB GOULD ####[facility] [address] [place], [place] [address]Dr. Jesus White pH (U) 6.0 [pH] Normal 5-9 [facility] Comment on above: Performed By: #### CALEB GOULD ####[facility] [address] [place], [place] [address]Dr. Jesus White SPEC GRAVITY <=1.005 Abnormal 1.005-<=1.025 [facility] Comment on above: Performed By: #### CALEB GOULD ####[facility] [address] [place], [place] [address]Dr. Jesus White UA PROTEIN Negative Normal NEGATIVE/ TRACE [facility] Comment on above: Performed By: #### VALERIO GOULDRO ####[facility] [address] [place], [place] [address]Dr. Jesus White UR MICRO IND INDICATED Normal [facility] Comment on above: Performed By: #### VALERIO GOULDRO ####[facility] [address] [place] [address]Dr. Jesus White Urobilinogen Qn (U) 0.2 {Dash'U}/dL Normal 0.2 - 1. 0 [facility] Comment on above: Performed By: #### VALERIO GOULDRO ####[facility] [address] [place], [place] [address]Dr. Jesus White URINE MICROSCOPIC ONLYon BACTERIA NONE SEEN Normal NONE SEEN [facility] Comment on above: Performed By: #### VALERIO GOULDRO ####[facility] [address] [place], [place] [address]Dr. Jesus White Bacteria identified Cx Nom (U) NOT INDICATED Normal [facility] Comment on above: Performed By: #### VALERIO GOULDRO ####[facility] [address] [place], [place] [address]Dr. Jesus White CAST NONE SEEN Normal NONE SEEN [facility] Comment on above: Performed By: #### VALERIO GOULDRO ####[facility] [address] [place], [place] [address]Dr. Jesus White Crystals LM Nom (Urine sed) NONE SEEN Normal NONE SEEN [facility] Comment on above: Performed By: #### VALEROI GOULDRO ####[facility] [address] [place], [place] [address]Dr. Jesus White Epithelial cells LM Ql (Urine sed) RARE Normal NONE SEEN /RARE [facility] Comment on above: Performed By: #### VALERIO GOULDRO ####[facility] [address] [place], [place] [address]Dr. Jesus White MUCOUS NONE SEEN Normal NONE SEEN [facility] Comment on above: Performed By: #### E RUR UMICRO ####[facility] [address] [place], [place] [address]Ww. Jesus White RBC NONE SEEN Abnormal 0-2 [facility] Comment on above: Performed By: #### E RUR, UMICRO ####[facility] [address] [place], [place] [address]Kn. Jesus White WBC NONE SEEN Normal NONE SEEN [facility] Comment on above: Performed By: #### E RUR, UMICRO ####[facility] [address] [place], [place] [address]Fb. Jesus White US CRYSTAL DOP LEG LTon [...] VARSHA BARNARD Date: 2022-01-01 08:49 Normal [facility] Vital Signs Date Time Vital Sign Value Performing Clinician Howard hooker 03-19-2024 08:59-0400 Body mass index (BMI) [Ratio] 33.06 kg/m2 Mignon Rodriguez [employer] Work Phone: [facility] 03-19-2024 08:59-0400 Body temperature 97.3 [degF] Mignon Rodriguez [employer] Work Phone: [facility] 03-19-2024 08:59-0400 Body weight 104.51 kg Mignon Rodriguez [employer] Work Phone: [facility] 03-19-2024 08:59-0400 Diastolic blood pressure 80 mm[Hg] Mignon Burrowspatrick [employer] Work Phone: [facility] 03-19-2024 08:59-0400 Heart rate 63 /min Mignon Burrowspatrick [employer] Work Phone: [facility] 03-19-2024 08:59-0400 SaO2% (BldA) [Mass fraction] 98 % Mignon Burrowspatrick [employer] Work Phone: [facility] 03-19-2024 08:59-0400 Systolic blood pressure 162 mm[Hg] Mignon Choprazpatrick [employer] Work Phone: [facility] 01-17-2024 08:08-0400 Blood Pressure Location Carlos [employer] [facility] 01-17-2024 08:08-0400 Diastolic blood pressure 84 mm[Hg] Carlos [employer] [facility] 01-17-2024 08:08-0400 Heart rate 62 /min Carlos [employer] [facility] 01-17-2024 08:08-0400 Respiratory rate 19 /min Carlos COOK [facility] 01-17-2024 08:08-0400 Systolic blood pressure 151 mm[Hg] Carlos COOK [facility] 10-17-2023 10:02-0400 Blood Pressure Location Carlos [employer] [facility] 10-17-2023 10:02-0400 Diastolic blood pressure 66 mm[Hg] Carlos COOK [facility] 10-17-2023 10:02-0400 Heart rate 66 /min Carlos HOLLINS [facility] 10-17-2023 10:02-0400 Respiratory rate 18 /min Carlos HOLLINS [facility] 10-17-2023 10:02-0400 Systolic blood pressure 120 mm[Hg] Carlos HOLLINS [facility] 10-13-2023 13:17-0400 Body height 177.8 cm [facility] 10-13-2023 13:17-0400 Body mass index (BMI) [Ratio] 32.5 kg/m2 [facility] 10-13-2023 13:17-0400 Body temperature 97 [degF] [facility] 10-13-2023 13:17-0400 Body weight 102.96 kg [facility] 10-13-2023 13:17-0400 Diastolic blood pressure 70 mm[Hg] [facility] 10-13-2023 13:17-0400 Heart rate 74 /min [facility] 10-13-2023 13:17-0400 Respiratory rate 20 /min [facility] 10-13-2023 13:17-0400 SaO2% (BldA) [Mass fraction] 97 % [facility] 10-13-2023 13:17-0400 Systolic blood pressure 120 mm[Hg] [facility] 03-17-2023 15:20-0400 Body height 177.8 cm Jose Julien Other [employer] [facility] [employer] Other 03-17-2023 15:20-0400 Body mass index (BMI) [Ratio] 31.96 kg/m2 Jose Julien Other [facility] Other 03-17-2023 15:20-0400 Body temperature 96.9 [degF] Jose Julien Other [facility] Other 03-17-2023 15:20-0400 Body weight 101.06 kg Jose Julien Other [facility] Other 03-17-2023 15:20-0400 Diastolic blood pressure 73 mm[Hg] Jose Julien Other [facility] Other 03-17-2023 15:20-0400 Respiratory rate 18 /min Jose Julien Other [facility] Other 03-17-2023 15:20-0400 SaO2% (BldA) [Mass fraction] 98 % Jose Julien Other [facility] Other 03-17-2023 15:20-0400 Systolic blood pressure 134 mm[Hg] Jose Julien Other [facility] Other 09-30-2022 11:20-0400 Body height 177.8 cm Jose Julien Other [facility] Other 09-30-2022 11:20-0400 Body mass index (BMI) [Ratio] 33.6 kg/m2 Jose Julien Other [facility] Other 09-30-2022 11:20-0400 Body temperature 96.3 [degF] Jose Julien Other [facility] Other 09-30-2022 11:20-0400 Body weight 106.23 kg Jose Julien Other [facility] Other 09-30-2022 11:20-0400 Diastolic blood pressure 64 mm[Hg] Jose Julien Other [facility] Other 09-30-2022 11:20-0400 Respiratory rate 18 /min Jose Julien Other [facility] Other 09-30-2022 11:20-0400 SaO2% (BldA) [Mass fraction] 99 % Jose Julien Other [facility] Other 09-30-2022 11:20-0400 Systolic blood pressure 138 mm[Hg] Jose Julien Other [facility] Other 03-22-2022 14:00-0400 Body height 177.8 cm Jose Julien Other [facility] Other 03-22-2022 14:00-0400 Body mass index (BMI) [Ratio] 33.14 kg/m2 Jose Julien Other [facility] Other 03-22-2022 14:00-0400 Body temperature 95.9 [degF] Jose Julien Other [facility] Other 03-22-2022 14:00-0400 Body weight 104.78 kg Jose Julien Other [facility] Other 03-22-2022 14:00-0400 Diastolic blood pressure 70 mm[Hg] Jose Julien Other [facility] Other 03-22-2022 14:00-0400 Respiratory rate 18 /min Jose Julien Other [facility] Other 03-22-2022 14:00-0400 SaO2% (BldA) [Mass fraction] 97 % Jose Julien Other [facility] Other 03-22-2022 14:00-0400 Systolic blood pressure 119 mm[Hg] Jose Julien Other [facility] Other 06-18-2021 11:40-0500 Body height 177.8 cm Jose Julien Other [facility] Other 06-18-2021 11:40-0500 Body mass index (BMI) [Ratio] 37.22 kg/m2 Jose Julien Other [facility] Other 06-18-2021 11:40-0500 Body temperature 95.9 [degF] Jose Julien Other [facility] Other 06-18-2021 11:40-0500 Body weight 117.66 kg Jose Julien Other [facility] Other 06-18-2021 11:40-0500 Diastolic blood pressure 70 mm[Hg] Jose Julien Other [facility] Other 06-18-2021 11:40-0500 Respiratory rate 18 /min Jose Julien Other [facility] Other 06-18-2021 11:40-0500 SaO2% (BldA) [Mass fraction] 97 % Jose Julien Other [facility] Other 06-18-2021 11:40-0500 Systolic blood pressure 124 mm[Hg] Jose Julien Other [facility] [employer] Other Encounters Encounter Date Encounter Type Care Provider Facility Start: 05-22-2024 ambulatory Carlos HOLLINS Facility :[facility] Start: 03-27-2024 End: 03-27-2024 Refill Mignon Rodriguez [employer] Work Phone: [facility] Comment on above: Hyperlipidemia, unsp ecified (CMS/HCC); Essential (primary) hypertension (CMS/HCC); Hyperuricemia; Gastroesophageal reflux disease with esophagitis without hemorrhage Start: 03-20-2024 End: 03-20-2024 Orders Only Mignon Rodriguez [employer] Work Phone: [facility] Comment on above: Acute bacterial sinu sitis (Primary Dx) Start: 03-19-2024 End: 03-19-2024 Bamboo flowsheet Mignon Rodriguez [employer] Work Phone: [facility] Start: 03-19-2024 End: 03-19-2024 Bamboo flowsheet Mignon Pinontrick [employer] Work Phone: [facility] Start: 03-19-2024 End: 03-19-2024 Clinisync Result Encounter Mignon Rodriguez [employer] Work Phone: [facility] External Department Unsolicited Start: 03-19-2024 End: 03-19-2024 Office outpatient visit 15 minutes Mignon Rodriguez [employer] Work Phone: [facility] Comment on above: Viral upper respirat ory tract infection (Primary Dx); Acute right ankle pain; Centrilobular emphysema (CMS/HCC); Ankle injury, right, initial encounter Start: 03-19-2024 End: 03-19-2024 ambulatory MIGNON COLINK [facility] Comment on above: Hyperuricemia Start: 01-17-2024 End: 01-17-2024 ambulatory Carlos HOLLINS Facility:[facility] Start: 01-17-2024 End: 01-17-2024 Patient encounter procedure Carlos HOLLINS [facility] Start: 11-24-2023 End: 11-24-2023 ambulatory PATEL FAWWAD Not Available Start: 10-17-2023 End: 10-17-2023 ambulatory Carlos HOLLINS Facility:[facility] Start: 10-17-2023 End: 10-17-2023 Patient encounter procedure Carlos HOLLINS [facility] Start: 10-13-2023 End: 10-13-2023 ambulatory [facility] Work Phone: Start: 10-13-2023 End: 10-13-2023 Patient encounter procedure [facility] Physician [facility] Fred Work Phone: Start: 10-04-2023 Non-patient / Non-visit [facility] [employer] Work Phone: Start: 09-28-2023 End: 09-28-2023 ambulatory PATEL FAWWAD Not Available Start: 08-23-2023 End: 08-23-2023 ambulatory PATEL FAWWAD Not Available Start: 05-10-2023 Patient encounter procedure Mignon Rodriguez NP Work Phone: [facility] Start: 05-10-2023 End: 05-10-2023 ambulatory PATEL FAWWAD Not Available Start: 03-17-2023 End: 03-17-2023 ambulatory Jose Julien Other [facility] [employer] Other Start: 03-17-2023 Office outpatient vi sit 15 minutes Jose Julien [facility] Start: 10-11-2022 End: 10-12-[address] CARLOS HOLLINS Facility: Start: 09-30-2022 End: 09-30-2022 ambulatory Jose Julien Other [facility] Other Start: 09-30-2022 Office outpatient vi sit 15 minutes Jose Julien [facility] Start: 08-23-2022 End: 08-24-2022 ambulatory SHAIKH Nancy MARQUEZD Facility:[facility] Start: 07-05-2022 End: 07-06-2022 ambulatory RUKHSANA LAUREN . Facility:[facility] Start: 04-08-2022 End: 04-08-[address] COLTEN NUNO . Facility:[facility] Start: 03-24-2022 End: 03-25-2022 ambulatory RUKHSANA SAMSA . Facility:[facility] Start: 03-22-2022 End: 03-22-2022 ambulatory Jose Julien Other [facility] Other Start: 03-22-2022 Office outpatient vi sit 25 minutes Jose Julien [facility] Start: 02-16-2022 End: 02-17-2022 ambulatory PATEL Nancy MARQUEZD Facility:[facility] Start: 01-01-2022 End: 01-01-[address] LUNA DUFFY . Facility:[facility] Start: 06-21-2021 End: 06-21-2021 ambulatory Jose Julien Other [facility] Other Start: 06-21-2021 Telephone encounter Jose Julien [facility] Start: 06-18-2021 End: 06-18-2021 ambulatory Jose Julien Other [facility] Other Start: 06-18-2021 Office outpatient vi sit 25 minutes Jose Julien [facility] Procedures Date Procedure Procedure Detail Performing Clinician Start: 03-19-2024 SARS-COV-2 AG* Mignon Rodriguez [employer] Work Phone: Start: 03-19-2024 [facility] INFLUENZA A AND B AG Mignon Rodriguez [employer] Work Phone: Start: 10-11-[address] WINIFRED HOLLINS Comment on above: Performed By: #### P SAD ####[facility] [id number] [place], [place] [address]OpJordin White Start: 03-24-2011 Brachytherapy Carlos PIZARRO Start: 06-06-2000 Excision of left kidney Carlos HOLLINS Cataract (disorder) Carlos HOLLINS Extraction of wisdom tooth G kerry HOLLINS History of hernia repair Gre gabriel HOLLINS Plan of Treatment Date Care Activity Detail Author Start: 09-22-2026 Screening for malign ant neoplasm of colon [facility] Start: 06-19-2024 End: 06-19-2024 Patient encounter procedure 06/19/2024 9:30 AM EST Office Visit [facility] [address] [place] [address] Mignon Rodriguez, NIC [address] [facility] [place] [address] [facility] Start: 05-10-2024 Medicare Annual Wellness (AWV) Medicare Annual Wellness (AWV) [facility] Start: 03-19-2024 End: 03-19-2025 COVID-19 / [place] [place] A[place]B [place] [place] Lab Routine Viral upper respiratory tract infection Expected: 03/19/2024 (Approximate), Expires: 03/19/2025 [facility] Work Phone: Comment on above: Expected: 03/19/2024 (Approximate), Expires: 03/19/2025 Start: 03-19-2024 End: 03-19-2024 Patient encounter procedure 03/19/2024 9:00 AM EDT Office Visit [facility] [address] [place] [address] Mignon Rodriguez, NIC [address] [facility] [place] [address] Arrived [facility] Comment on above: Arrived Start: 02-05-2024 Influenza vaccination Influenza Vacc ine (#1) [facility] Start: 02-21-1961 Pneumococcal Vaccine : 65+ Years (1 of 2 - PCV) Pneumococcal Vaccine: 65+ Years (1 of 2 - PCV) [facility] Start: 1955 Screening for malign ant neoplasm of colon [facility] Renal function 2000 panel - Serum or Plasma [facility] XR Ankle - right 3 Views XR ankle 3+ views right Imaging Routine Acute right ankle pain Ordered: 03/19/2024 [facility] Comment on above: Ordered: 03/19/2024 [facility] Immunizations Immunization Date Immunization Notes Care Provider [facility] 03-17-2023 influenza virus vaccine, unspecified formulation Carlos HOLLINS [facility] 03-17-2023 Influenza, High-dose Seasonal, Quadrivalent, Preservative Free Mignon Rodriguez [employer] Work Phone: [facility] 03-27-2022 influenza virus vaccine, unspecified formulation Carlos HOLLINS [facility] 03-27-2022 Influenza, High-dose Seasonal, Quadrivalent, Preservative Free Mignon Rodriguez [employer] Work Phone: [facility] 05-27-2021 SARS-CoV-2 (COVID-19 ) mRNA-1273 vaccine Carlos HOLLINS [facility] Comment on above: Result Comment: [facility] 03-26-2021 influenza virus vaccine, unspecified formulation Carlos HOLLINS [facility] 03-26-2021 Influenza, High-dose Seasonal, Quadrivalent, Preservative Free Mignon Rodriguez [employer] Work Phone: [facility] 11-21-2020 SARS-CoV-2 (COVID-19 ) mRNA-1273 vaccine Carlos HOLLINS [facility] 10-16-2020 SARS-CoV-2 (COVID-19 ) mRNA-1273 vaccine Carlos HOLLINS [facility] 02-05-2020 influenza virus vaccine, unspecified formulation Carlos HOLLINS [facility] 05-14-2014 influenza virus vaccine, unspecified formulation Carlos HOLLINS [facility] 05-14-2014 influenza, seasonal, injectable Mignon Rodriguez [employer] Work Phone: [facility] Payers Date Payer Category Payer Medicaid [id number] 2012 Medicaid [place] Advantage [id number] 501 [id number] 1959 Medicare [id number] 1956 Unknown [id number] [id number] 1956 Unknown [id number] 2.16.840.1.583357.3.579.2.593 1956 Unknown [id number] 2.16.840.1.263084.3.579.2.593 1956 Unknown [id number] 2.16.840.1.071267.3.579.2.593 1956 Unknown [id number] 2.16.840.1.127755.3.579.2.593 1956 Unknown [id number] 2.16.840.1.397156.3.579.2.593 1956 Unknown [id number] 2.16.840.1.487639.3.579.2.593 1956 Unknown [id number] 2.16.840.1.962357.3.579.2.593 1956 Unknown [id number] 2.16.840.1.815896.3.579.2.727 1956 Unknown [id number] 2.16.840.1.526113.3.579.2.727 1956 Unknown [id number] 2.16.840.1.867842.3.579.2.727 1956 Unknown [id number] 2.16.840.1.548181.3.579.2.1259 1956 Unknown [id number] 2.16.840.1.930894.3.579.2.1259 1956 Unknown [id number] 2.16.840.1.308091.3.579.2.1259 1956 Unknown [id number] 2.16.840.1.968345.3.579.2.1259 1956 Unknown [id number] 2.16.840.1.234248.3.579.2.1259 Medicaid [employer] [id number] Self-pay Self Pay [id number] Unknown [employer] Just For Sc GHAZALA [id number] Social History Date Type Detail Facility Unknown if ever smoked [facility] Other Start: 05-10-2023 End: 11-24-2023 [facility] Assigned At [facility] Start: 10-13-2023 [facility] Start: 1955 Sex Assigned At Male F [facility] Start: 10-17-2023 End: 01-17-2024 Tobacco smoking status Light tobacco smoker (finding) [facility] Tobacco smoking status Never [facility] Start: 11-24-2023 Tobacco smoking stat [facility] Smokes tobacco daily [facility] History of tobacco use Cigarette Smoker [facility] Start: 05-10-2023 End: 11-24-2023 Cigarettes smoked current (pack per day) - Reported 1 [facility] History of tobacco use Passive smoker [facility] Start: 11-24-2023 Tobacco use and exposure Smokeless tobacco non-user [facility] Start: 11-24-2023 Alcoholic beverage intake Current drinker of alcohol (finding) [facility] Within the last year , have you been afraid of your partner or ex-partner? No [facility] Are you now , , , , never or living with a partner? [facility] How often to you hav e a drink containing alcohol? 2-3 time sa week [facility] How many standard drinks containing alcohol do you have on a typical day? 1 or 2 [facility] How often do you hav e 6 or more drinks on 1 occasion? Never [facility] How hard is it for y ou to pay for the very basics like food, housing, medical care, and heating Not very hard [facility] Do you feel stress - tense, restless, nervous, or anxious, or unable to sleep at night because your mind is troubled all the time - these days [OSQ] To some extent [facility] (I/We) worried wheth er (my/our) food would run out before (I/we) got money to buy more. Never true [facility] Start: 05-06-2023 Alcohol Comment caffene: 1-2 c ups per day [facility] Start: 1955 Sex assigned at Not on file [facility] Functional Status Date Assessment Result Facility 01-17-2024 Functional Status N/A [facility] 10-17-2023 Functional Status N/A [facility] Clinical Notes 06-18-2021 to 03-19-2024 Mignon Rodriguez NP - 03/19/2024 10:45 AM EDNilda Rodriguez NP - 03/19/2024 10:43 AM Wallace Rodriguez NP - 03/19/2024 9:00 AM EDTPatient Instructions Note Date & Type Note Facility 03-19-2024 History of Presen t illness Narrative Associated Problem(s): Ankle injury, right, initial encounter Rolled ankle;e 2 weeks ago. Did not receive tx or imaging. Reports swelling and tenderness still Is able to bear weight and ambulate, but does report associated pain. Selling noted on observation. No discoloration observed. Xray ankle ordered. Associated Problem(s): URI (upper respiratory infection) Sinus congestion, runny nose, body aches X10 days. Discussed likely viral etiology. Ordered COVID/Flu/RSV panel. Recommended rest, fluids, OTC management for now. Images from the original note were not included. Subjective Patient ID: Abbey Mustafa is a 69 y.o. male who presents for Nasal Congestion and Ankle Pain (Injury 2 weeks ago with ankle ). [facility] Pulmonology- Dr. Rojas Cardiology- Dr. Victoria Urology- Dr. Hollins Sinus congestion Runny nose Body aches X10 days Has not tested for COVID Denies: Cough Shortness of breath Fever Headache Ankle Pain: Rolled ankl;e 2 weeks ago Reports swelling and tenderness still Able to walk on it. Will order xray Review of Systems Constitutional: Negative for activity change, appetite change, chills, diaphoresis, fatigue, fever and unexpected weight change. HENT: Positive for congestion, rhinorrhea, sinus pressure and sinus pain. Negative for ear pain, sneezing, sore throat, trouble swallowing and voice change. Eyes: Negative for visual disturbance. Respiratory: Negative for cough, chest tightness, shortness of breath and wheezing. Cardiovascular: Negative for chest pain, palpitations and leg swelling. Gastrointestinal: Negative for abdominal distention, abdominal pain, blood in stool, constipation, diarrhea and vomiting. Genitourinary: Negative for decreased urine volume, dysuria, flank pain, frequency, hematuria and urgency. Musculoskeletal: Positive for joint swelling and myalgias. Negative for arthralgias and gait problem. Skin: Negative for rash. Neurological: Negative for dizziness, tremors, syncope, weakness, light-headedness and headaches. Psychiatric/Behavioral: Negative for decreased concentration and suicidal ideas. The patient is not nervous/anxious. Hematological: Does not bruise/bleed easily. Endocrine: Negative for cold intolerance, heat intolerance, polydipsia, polyphagia and polyuria. Objective Physical Exam Vitals reviewed. Constitutional: Appearance: Normal appearance. HENT: Head: Normocephalic and atraumatic. Right Ear: Tympanic membrane normal. Left Ear: Tympanic membrane normal. Nose: Congestion and rhinorrhea present. Mouth/Throat: Mouth: Mucous membranes are moist. Pharynx: Oropharynx is clear. Eyes: Pupils: Pupils are equal, round, and reactive to light. Cardiovascular: Rate and Rhythm: Normal rate and regular rhythm. Pulses: Normal pulses. Heart sounds: Normal heart sounds. Pulmonary: Effort: Pulmonary effort is normal. Breath sounds: Normal breath sounds. Abdominal: General: Abdomen is flat. Bowel sounds are normal. Palpations: Abdomen is soft. Musculoskeletal: General: Normal range of motion. Cervical back: Normal range of motion. Right ankle: Swelling present. No ecchymosis. Tenderness present. Normal range of motion. Normal pulse. Skin: General: Skin is warm and dry. Capillary Refill: Capillary refill takes less than 2 seconds. Neurological: General: No focal deficit present. Mental Status: He is alert and oriented to person, place, and time. Psychiatric: Mood and Affect: Mood normal. Behavior: Behavior normal. Assessment/Plan Problem List Items Addressed This Visit COPD (chronic obstructive pulmonary disease) with emphysema ([facility]/HCC) URI (upper respiratory infection) - Primary Sinus congestion, runny nose, body aches X10 days. Discussed likely viral etiology. Ordered COVID/Flu/RSV panel. Recommended rest, fluids, OTC management for now. Relevant Orders COVID-19 / [place]U A/B / [place] [place] Ankle injury, right, initial encounter Rolled ankle;e 2 weeks ago. Did not receive tx or imaging. Reports swelling and tenderness still Is able to bear weight and ambulate, but does report associated pain. Selling noted on observation. No discoloration observed. Xray ankle ordered. Other Visit Diagnoses Acute right ankle pain Relevant Orders XR ankle 3+ views right documented in this encounter [facility] 03-19-2024 Instructions Mignon Rodriguez NP - 03/19/2024 9:00 AM EDT Continue to rest, drink plenty of fluids, and eat a well-balance diet. Resume normal activity. AVOID anything strenuous until you are feeling better. Treatment: Nasal saline spray 2-3 times/dayCold and sinus medication - if you have high blood pressure issues use coricidin hbpAllegra or zyrtec allergy medication once daily. Flonase nasal spray 1-2 squirts in each nostril at night. Tylenol for fever and body aches. Mucinex for cough/congestion 600-1,200mg twice daily. Delsym for a dry cough Vitamins: Vitamin C 1,000mg per day. Vitamin D3 2,000 international unit(s) per day. Zinc 25mg per day. WORSENING SYMPTOMS, CHEST PAIN, OR SHORTNESS OF BREATH, GO TO THE NEAREST EMERGENCY DEPARTMENT. documented in this encounter [facility] 01-17-2024 Hospital Discharg e instructions Patient Education [...] if anything looks unusual. Men with a hnbwfb-przr-vzeuiv risk for skin cancer may want to see a obstetrics specialist (pest control service technician) for an annual body check. What are the benefits of screening? Cancer screening is done to look for cancer in the very early stages, before it spreads and becomes harder to treat and before you would start to notice symptoms. Finding cancer early improves the chances of successful treatment. It may save your life. Where to find more information [place] [employer]: www.cancer.org Centers for Disease Control and Prevention: www.cdc.gov National Cancer [place]: www.cancer.gov Contact a health care provider if: [...] provider. Document Revised: 10/19/2021 Document Reviewed: 04/18/2020 [employer] Patient Education 2022 [employer]. Follow Up Care 10/17/2023 10:47:32 With:GURVINDER HENDRICKSON, Carlos Day, URL Address: [address] [place], [place] [id number]- When: Unknown [facility] 01-17-2024 Note Patient Education Oncology Cancer Screening [...] if anything looks unusual. Men with a gocbyr-hiuc-fdjyzb risk for skin cancer may want to see a obstetrics specialist (pest control service technician) for an annual body check. What are the benefits of screening? Cancer screening is done to look for cancer in the very early stages, before it spreads and becomes harder to treat and before you would start to notice symptoms. Finding cancer early improves the chances of success (more content not included)... [facility] 10-17-2023 Hospital Discharg e instructions Patient [...] under a microscope. This is called the [place] score and the total score can range from 6 10, indicating how likely it is that the cancer will spread (metastasize) to other parts of the body. The higher the score, the greater the likelihood that the cancer will spread. Primitivo 6 or lower: This indicates that the cancer cells look similar to normal prostate cells (well differentiated). Primitivo 7: This indicates that the cancer cells look somewhat similar to normal prostate cells (moderately differentiated). [place] 8, 9, or 10: This indicates that [...] stress of having cancer. General instructions Take ihzd-agf-pryzcqa and prescription medicines only as told by your health care provider. If you have to go to the hospital, notify your cancer specialist (oncologist). Keep all follow-up visits. This is important. Where to find more information [place] [employer] Society: www.cancer.org [place] Society of Clinical Oncology: www.cancer.net National Cancer [place]: www.cancer.gov Contact a health care provider if: [...] provider. Document Revised: 08/19/2021 Document Reviewed: 08/19/2021 [employer] Patient Education 2022 [email or web address]. Follow Up Care 10/15/2022 10:10:00 With:GURVINDER HENDRICKSON, Carlos Day, URL Address: [address] [address]- When: Unknown [facility] 03-17-2023 Evaluation note Encounter Date Diagnosis [...] Monitor LFTs and lipid profile with PCP. [facility] Other [id number] Evaluation note* Encounter Date Diagnosis Assessment Notes [...] have gout. I have prescribed oral Allopurinol [facility] Other 10-17-2022 Evaluation note* Encounter Date Diagnosis [...] have gout. I have prescribed oral Allopurinol [facility] Other 07-29-2022 NotePROCEDURE: XR FEMUR LT HISTORY: [...] Electronically authenticated by: LUCAS GOLDSTEIN Date: 2022-01-01 08:35[facility]01-13-2022 Evaluation note* Encounter Date Diagnosis Assessment [...] Q60.0) He has a solitary right kidney. [place] [facility] Other evaluation + Plan note Future Appointments Appointment Date:01/16/2024 09:45:00 AM Scheduled Provider:Carlos HOLLINS MD Location:[facility] Appointment Type:URO Office Visit Diagnostic Tests Pending * PSA Total 11/05/23 [facility] evaluation + Plan note Future Appointments Appointment Date:05/22/2024 09:30:00 AM Scheduled Provider:Carlos HOLLINS MD Location:[facility] Appointment Type:URO Office Visit Diagnostic Tests Pending * PSA Total 01/17/24 [facility] evalufftrg noteNo Information[facility] [employer] Other evaluation note* Diagnosis Onset Date Resolution Status Anemia of renal disease acut e CKD (chronic kidney disease) stage 3, GFR 30-59 ml/min acute Hyperlipidemia acute [id number] acute Hyperuricemia acute Hypomagnesemia acute Secondary hyperparathyroidism acute Solitary kidney, acquired ac [facility] Work Phone: Evaluation note* Diagnosis Primary hypertension (CMS/HCC)- Primary Unspecified essential hypertension Pulmonary emphysema, unspecified emphysema type (CMS/HCC) Mixed hyperlipidemia (CMS/HCC) Mixed hyperlipidemia Encounter for Medicare annual wellness exam Encounter for screening for lung cancer Continuous dependence on cigarette smoking URTI (acute upper respiratory infection) Acute upper respiratory infections of unspecified site Centrilobular emphysema (CMS/HCC)- Primary Chronic midline thoracic back pain Primary hypertension (CMS/HCC) Unspecified essential hypertension Hematemesis with nausea Hospital discharge follow-up Other follow-up examination Chronic right shoulder pain- Primary Pain in joint, shoulder region Chronic midline thoracic back pain Left hip pain Pain in joint, pelvic region and thigh 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 Viral upper respiratory tract infection- Primary Acute upper respiratory infections of unspecified site Acute right ankle pain Centrilobular emphysema (CMS/HCC) Ankle injury, right, initial encounter [facility] Primary hypertension (CMS/HCC)- Primary Unspecified essential hypertension Pulmonary emphysema, unspecified emphysema type (CMS/HCC) Mixed hyperlipidemia (CMS/HCC) Mixed hyperlipidemia Encounter for Medicare annual wellness exam Encounter for screening for lung cancer Continuous dependence on cigarette smoking URTI (acute upper respiratory infection) Acute upper respiratory infections of unspecified site Centrilobular emphysema (CMS/HCC)- Primary Chronic midline thoracic back pain Primary hypertension (CMS/HCC) Unspecified essential hypertension Hematemesis with nausea Hospital discharge follow-up Other follow-up examination Chronic right shoulder pain- Primary Pain in joint, shoulder region Chronic midline thoracic back pain Left hip pain Pain in joint, pelvic region and thigh 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 Viral upper respiratory tract infection- Primary Acute upper respiratory infections of unspecified site Acute right ankle pain Centrilobular emphysema (CMS/HCC) Ankle injury, right, initial encounter Hyperuricemia Other abnormal blood chemistry documented in this encounter [facility] Diagnosis Primary hypertension (CMS/HCC)- Primary Unspecified essential hypertension Pulmonary emphysema, unspecified emphysema type (CMS/HCC) Mixed hyperlipidemia (CMS/HCC) Mixed hyperlipidemia Encounter for Medicare annual wellness exam Encounter for screening for lung cancer Continuous dependence on cigarette smoking URTI (acute upper respiratory infection) Acute upper respiratory infections of unspecified site Centrilobular emphysema (CMS/HCC)- Primary Chronic midline thoracic back pain Primary hypertension (CMS/HCC) Unspecified essential hypertension Hematemesis with nausea Hospital discharge follow-up Other follow-up examination Chronic right shoulder pain- Primary Pain in joint, shoulder region Chronic midline thoracic back pain Left hip pain Pain in joint, pelvic region and thigh 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 Viral upper respiratory tract infection- Primary Acute upper respiratory infections of unspecified site Acute right ankle pain Centrilobular emphysema (CMS/HCC) Ankle injury, right, initial encounter Acute bacterial sinusitis- Primary Acute sinusitis, unspecified documented in this encounter [facility]* Diagnosis Primary hypertension (CMS/HCC)- Primary Unspecified essential hypertension Pulmonary emphysema, unspecified emphysema type (CMS/HCC) Mixed hyperlipidemia (CMS/HCC) Mixed hyperlipidemia Encounter for Medicare annual wellness exam Encounter for screening for lung cancer Continuous dependence on cigarette smoking URTI (acute upper respiratory infection) Acute upper respiratory infections of unspecified site Centrilobular emphysema (CMS/HCC)- Primary Chronic midline thoracic back pain Primary hypertension (CMS/HCC) Unspecified essential hypertension Hematemesis with nausea Hospital discharge follow-up Other follow-up examination Chronic right shoulder pain- Primary Pain in joint, shoulder region Chronic midline thoracic back pain Left hip pain Pain in joint, pelvic region and thigh 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 Viral upper respiratory tract infection- Primary Acute upper respiratory infections of unspecified site Acute right ankle pain Centrilobular emphysema (CMS/HCC) Ankle injury, right, initial encounter Hyperlipidemia, unspecified (CMS/HCC) Essential (primary) hypertension (CMS/HCC) Unspecified essential hypertension Hyperuricemia Other abnormal blood chemistry Gastroesophageal reflux disease with esophagitis without hemorrhage [facility] Other History general Narrative - Reported* Type [...] BLOOD PRESSURE WAS 60/40 , DEHYDRATION 04/2021 [facility] Other Hisxnuo general Narrative - Reported* Type Description Date [...] BLOOD PRESSURE WAS 60/40 , DEHYDRATION 04/2021 [facility] Other Hiscylh general Narrative - Reported* Type Description Date [...] BLOOD PRESSURE WAS 60/40 , DEHYDRATION 04/2021 [facility] Other Hospital course Narrative No data available for this section [facility] [email or web address] Progress note No data available for this section [facility] [email or web address] Summary Purpose Family History Relationship Condition Age at Onset Recorded Date/T rory brother Hypertension Unknown father Diabetes mellitus Unknown Unknown Malignant neoplasm Unknown Not Specified Unknown Advance Directives Advance Directive Response Recorded Date/ Time Advance Directives No August 10 11:07am Chief Complaint and Reason for Visit Chief Complaint RENAL 6 month f/u Reason for Visit Anemia of renal dise ase CKD (chronic kidney disease) stage 3, GFR 30-59 ml/min Hyperlipidemia [id number] Hyperuricemia Hypomagnesemia Secondary hyperparathyroidism Solitary kidney, acquired Additional Source Comments REASON FOR VISIT (unrecogniz ed section and content) Reason Onset Date Comments Med Refill 03/27/2024 Reason Onset Date Comments Med Refill 03/19/2024 Reason Comments Nasal Congestion Ankle Pain Injury 2 weeks ago w ith ankle CKD and HTNCKD (unrecognized sect ion and content) No Status Records FoundNo Status Records FoundNo Status Records Found INFORMATION SOURCE (unrecogn ized section and content) DATE CREATED AUTHOR 11/12/2022 [facility] DATE CREATED AUTHOR AUTHOR'S ORGANIZ ATION 01/19/2024 [facility] DATE CREATED AUTHOR AUTHOR'S ORGANIZ ATION 03/20/2024 [facility] EPIC Care Teams (unrecognized sec tion and content) [...] October 13, 2023 End: October 13, 2023 [employer] Relationship Specialty Start Date End Date Shaikh Gagnon MD [address] [place] [id number] PCP - [employer] 06/06/23 Rm Rainey MD [address] [place] [phone] PCP - General Family Medicine 01/16/24 Mignon Rodriguez NP [address] [place] [address] Nurse Practitioner Family Medicine 01/16/24 [employer] Relationship Specialty Start Date End Date Shaikh Gagnon MD [address] [place] [address] PCP - [employer] 06/06/23 Rm Rainey MD [address] [place] [address] PCP - General Family Medicine 01/16/24 Mignon Rodriguez NP [address] [place] [address] Nurse Practitioner Family Medicine 01/16/24 [employer] Relationship Specialty Start Date End Date Shaikh Gagnon MD [address] [place] [phone] PCP - [employer] 06/06/23 Rm Rainey MD [address] [place] [phone] PCP - General Family Medicine 01/16/24 Mignon Rodriguez NP [address] [place] [address] Nurse Practitioner Family Medicine 01/16/24 [employer] Relationship Specialty Start Date End Date Shaikh Gagnon MD [address] [place] [address] PCP - [employer] 06/06/23 Rm Rainey MD [address] [place] [address] PCP - General Family Medicine 01/16/24 Mignon Rodriguez NP [address] [place] [address] Nurse Practitioner Family Medicine 01/16/24 [employer] Relationship Specialty Start Date End Date Shaikh Gagnon MD [address] [place] [phone] PCP - [employer] 06/06/23 Rm Rainey MD [address] [place] [phone] PCP - General Family Medicine 01/16/24 Mignon Rodriguez NP [address] [place] [address] Nurse Practitioner Family Medicine 01/16/24 [employer] Relationship Specialty Start Date End Date Shaikh Gagnon MD [address] [place] [phone] PCP - [employer] 06/06/23 Unallocated, Jyoti Pink MD [address] [place] [address] PCP - General Family Medicine 03/20/24 Mignon Rodriguez NP [address] [place] [address] Nurse Practitioner Family Medicine 01/16/24 Goals (unrecognized section and content) Goals may [...] BE BASED ON THE PRIMARY CLINICAL RECORDS. [facility] [employer] [facility]. provides no warranty or guarantee of the accuracy or completeness of information in this document.
== END 2024-04-18 11:36 | disposition home or self-care (01) ==
LOC: LAB 11:38
PROVIDERS: Visit Provider Urology
DX: N40.1 Benign prostatic hyperplasia with lower urinary tract symptoms (principal)
CPT/HCPCS: 36415; 84153

== ENCOUNTER 2024-05-07 22:18 | Observation (INO) | payer MEDICARE, SELFPAY ==
[2024-05-07] VITALS (18 sets, daily range): BP systolic 59–152; BP diastolic 43–77; PULSE 66–96; O2SAT 95–98; BMI 33.7
--- NOTE | 2024-05-07 22:18 | XR_ITS ---
The [address] [address] Patient Name: ABBEY IRVING MRN: [id number] date: 1955 Sex: M Assigned Patient Location: ER Current Patient Location: ER Accession/Order Number: [id number] Exam Date: 05/07/2024 22:45 Report Date: 05/07/2024 23:29 At the request of: KAMILLE DIALLO Procedure: XR chest 1V EXAM: XR chest 1V HISTORY: chest pain COMPARISON: Chest radiograph 09/06/23, 07/18/2021 TECHNIQUE: Single view of the chest FINDINGS: Lungs mildly underinflated. No focal consolidation or evidence pulmonary edema. No pneumothorax or significant pleural effusion. Unremarkable cardiomediastinal contours. No acute osseous abnormality. XR/XR chest 1V IMPRESSION: No acute cardiopulmonary findings. Electronically authenticated by: LUCAS TURCIOS Date: 05/07/2024 23:29
--- NOTE | 2024-05-07 22:19 | ED.GENADUL1 ---
HPI HPI - General Adult General Chief complaint: Chest Pain Stated complaint: CHEST PAIN Time Seen by Provider: 05/07/24 22:23 History of Present Illness HPI narrative: Patient presenting to the emergency department for evaluation of chest pain. Report was given by EMS as well as patient. Patient states that he called EMS because he was having chest pain earlier today. Patient is currently intoxicated, cannot explain where he was having chest pain, just states his entire chest. Is unable to quantify where in the chest, any radiation, exacerbating or eliciting factors. He just notes his chest was hurting. States he only drinks 3 or so glasses of [employer]. EMS state they were called for chest pain, went out to see patient, and initially he was unresponsive. They state that they have required sternal rub to wake him up. They did not realize until he woke up and started talking to them that he was intoxicated. They state that they were called for chest pain, showed up to see patient, lives at home with his , she was a poor historian and unable to give medical history. They state the patient was saying he was having chest pain. They sternal rub him to wake him up, he had a consistent heart rate of 42, they gave him atropine which brought his heart rate up. Patient states that he is currently pain-free, EMS states that when they give him the full dose of aspirin, as well as the atropine and the pain went from an 8 to a 2, and then fully down to a 0 before arrival into the emergency department. At this time patient states that he has no complaints. EMS state that after the atropine was given heart rate came up to the 90s, showed atrial fibrillation which was new for him. Patient does not know history is hypertension. No other complaints at this time. Related Data Home Medications ?Medication ?Instructions ?Recorded ?Confirmed atorvastatin 40 mg tablet 40 mg PO DAILY 04/02/23 05/07/24 budesonide-formoterol HFA 160 1 inh inhalation Q12H 04/02/23 05/07/24 mcg-4.5 mcg/actuation aerosol inhaler (Symbicort) furosemide 20 mg tablet 20 mg PO DAILY 04/02/23 05/07/24 losartan 50 mg tablet 50 mg PO DAILY 04/02/23 05/07/24 metoprolol tartrate 25 mg tablet 25 mg PO Q12H 04/02/23 05/07/24 tamsulosin 0.4 mg capsule 0.4 mg PO Q24H 04/02/23 05/07/24 allopurinol 100 mg tablet 100 mg PO QDAY 04/12/24 05/07/24 atorvastatin 40 mg tablet 40 mg PO QDAY 04/12/24 05/07/24 furosemide 20 mg tablet 20 mg PO QDAY 04/12/24 05/07/24 omeprazole 40 mg capsule,delayed 40 mg PO QDAY 04/12/24 05/07/24 release fluticasone propionate 50 1 spray intranasal QDAY 05/07/24 05/07/24 mcg/actuation nasal spray,suspension Allergies Allergy/AdvReac Type Severity Reaction Status Date / Time No Known Drug Allergies Allergy Verified 05/07/24 22:27 Opioid HPI Opioid Management Most Recent Opioid Data: Last Pain Scale 6 09/06/23 14:05 09/06/23 Last ORT Total Score 0 08/13/23 01:58 08/13/23 Last ORT Risk Category Low Risk 08/13/23 01:58 08/13/23 Review of Systems ROS Narrative Negative unless otherwise stated in the HPI [facility] Medical History (Updated 05/07/24 @ 23:51 by Daryl Briggs MD) HLD (hyperlipidemia) ?E78.5 - Hyperlipidemia, unspecified (ICD-10) Hematemesis with nausea ?K92.0 - Hematemesis (ICD-10) Chronic back pain ?M54.9 - Dorsalgia, unspecified (ICD-10) ?G89.29 - Other chronic pain (ICD-10) Alcohol abuse, in remission ?F10.11 - Alcohol abuse, in remission (ICD-10) Type 2 diabetes mellitus ?E11.9 - Type 2 diabetes mellitus without complications (ICD-10) COPD (chronic obstructive pulmonary disease) ?J44.9 - Chronic obstructive pulmonary disease, unspecified (ICD-10) Sleep apnea ?G47.30 - Sleep apnea, unspecified (ICD-10) Hypertension ?I10 - Essential (primary) hypertension (ICD-10) 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) Hiatal hernia ?K44.9 - Diaphragmatic hernia without obstruction or gangrene (ICD-10) Inguinal hernia bilateral, non-recurrent ?K40.20 - Bilateral inguinal hernia, without obstruction or gangrene, not specified as recurrent (ICD-10) Influenza ?J11.1 - Influenza due to unidentified influenza virus with other respiratory manifestations (ICD-10) Giardia ?A07.1 - Giardiasis [lambliasis] (ICD-10) CMV (cytomegalovirus) ?B25.9 - Cytomegaloviral disease, unspecified (ICD-10) Rheumatic fever ?I00 - Rheumatic fever without heart involvement (ICD-10) Prostate cancer ?C61 - Malignant neoplasm of prostate (ICD-10) Surgical History (System 04/13/24 @ 09:45 by Farhana Chirinos) [place] teeth extracted ?K08.409 - Partial loss of teeth, unspecified cause, unspecified class (ICD-10) History of nephrectomy, left ?Z90.5 - Acquired absence of kidney (ICD-10) Family History (System 04/13/24 @ 09:45 by Farhana Chirinos) Other Family history of cancer Family history of diabetes mellitus Social History (System 04/13/24 @ 09:45 by Farhana Chirinos) Within the past year, how often did you have a drink containing alcohol: 2-4 times a month Within the past year, how many standard drinks containing alcohol did you have on a typical day: 3 or 4 Within the past year, how often did you have six or more drinks on one occasion: less than monthly Total score: 3 Score interpretation: A score of 4 or more indicates drinking is likely to affect patient's safety. Smoking status: Current every day smoker Non-prescribed substance use: denies use Highest level of school completed/degree received: Associate degree: occupational, technical, vocational program Little interest or pleasure in doing things: not at all Feeling down, depressed, or hopeless: not at all Do you think of yourself as: straight/heterosexual Gender Identity: male Exam Narrative Exam Narrative: General: NAD, AAOx3, no distress Neck: Supple, no LAD, non meningeal Respiratory: respiratory effort normal, speaks in full sentences, no tripod position, no accessory muscle use. Lungs clear to auscultation without rhonchi, wheezes, rales Cardiac: Regular, normal rate no edema, regular s1/s2, no m/g/r Abdomen: Soft, ND/NT. No evidence of fluid wave. No pulsatile masses on exam, rebound tenderness, Bender sign or pain over Mcburney's point. Constitutional Vital Signs, click to edit/add: Last Vital Signs Pulse 85 05/07/24 23:20 Resp 17 05/07/24 23:20 BP 88/61 L 05/07/24 23:15 Pulse Ox 95 05/07/24 23:15 O2 Del Method Room Air 05/07/24 22:15 Course Vital Signs Vital signs: Vital Signs Pulse Rate 92 H 05/07/24 22:15 Respiratory Rate 20 05/07/24 22:15 Blood Pressure 152/70 H 05/07/24 22:15 Pulse Oximetry 98 05/07/24 22:15 Oxygen Delivery Method Room Air 05/07/24 22:15 Pulse Rate 85 05/07/24 23:20 Respiratory Rate 17 05/07/24 23:20 Blood Pressure 88/61 L 05/07/24 23:15 Pulse Oximetry 95 05/07/24 23:15 Oxygen Delivery Method Room Air 05/07/24 22:15 Medical Decision Making MDM Narrative Medical decision making narrative: [facility] Patient with history as above presented with [ chest pain resolved prior to ER evaluation]. History obtained from [patient, EMS]. Patient was nontoxic, stable. Ambulatory. Exam as above. EKG reviewed. Labs reviewed. Independently reviewed imaging. Reviewed external records. Differential diagnosis considered. Overall presentation is consistent with 1017 patient was seen evaluated upon arrival to the ED. Heart rate is currently 90s. 1022 was and imaging ordered at this time 1041 EKG was noted, it does appear that patient has P waves, is not in A-fib with slow ventricular response which is what EMS had him on their monitor. To monitor. Reevaluated patient, he did at 1 point told nurses that his pain was 1 out of 10, currently states that it is again a 0 out of 10. 1108 alcohol 3, was noted. Patient would be sober at approximately 8 to 9 AM. I believe patient's episode of unresponsiveness was likely intoxicant related patient's heart rate has been regular, he has not been bradycardic, patient will be watched potential heart block. And I do not believe patient requires s emergent pacemaker or cardiac intervention with time. Patient does have SINAN, baseline creatinine 6 months ago was 1.09, currently 2.3. Given alcohol abuse, lack of nutrition, likely patient has an SINAN. Would benefit IV fluids and recheck. 1149 patient has remained chest pain-free while in the emergency department. Workup showing SINAN, alcohol intoxication. There has been no heart blocks, bradycardia in the emergency department, no requirement for atropine. I discussed with Zeenat, she is excepting admission at this time. Final impression: Alcohol intoxication, acute kidney injury Lab Data Labs: Lab Results 05/07/24 Range/Units 22:20 WBC 14.3 H (4.0-11.0) 10^3/uL RBC 4.20 L (4.70-6.10) 10^6/uL Hgb 13.7 L (14.0-18.0) g/dL Hct 41.4 L (42.0-54.0) % MCV 98.6 H (80.0-94.0) fL MCH 32.6 (25.9-34.0) pg MCHC 33.1 (29.9-35.2) g/dL RDW 14.7 (11.0-15.0) % Plt Count 216 (150-450) 10^3/uL MPV 10.1 (9.5-13.5) fL Neut % (Auto) 76.8 H (43.0-75.0) % Lymph % (Auto) 18.4 L (20.5-60.0) % [place] % (Auto) 3.0 (1.7-12.0) % Eos % (Auto) 0.5 L (0.9-7.0) % Baso % (Auto) 0.4 (0.2-2.0) % Neut # (Auto) 11.0 H (1.4-6.5) 10^3/uL Lymph # (Auto) 2.6 (1.2-3.8) 10^3/uL [place] # (Auto) 0.4 (0.3-0.8) 10^3/uL Eos # (Auto) 0.1 (0.0-0.7) 10^3/uL Baso # (Auto) 0.1 (0.0-0.1) 10^3/uL Abs Immat Gran (auto) 0.13 H (0.00-0.03) 10^3/uL Imm/Tot Granulo (auto) 0.9 H (0.0-0.5) % PT 10.3 (9.0-11.6) sec INR 0.97 APTT 24.2 (22.3-36.2) sec Sodium 140 (136-145) mmol/L Potassium 4.7 (3.5-5.1) mmol/L Chloride 104 (98-107) mmol/L Carbon Dioxide 23.5 (21.0-32.0) mmol/L Anion Gap 17.2 BUN 27.0 H (7.0-18.0) mg/dL Creatinine 2.26 H (0.70-1.30) mg/dL Est GFR ( Amer) 35 L (>=60 mL/min/1.73m^2) Est GFR (Non-Af Amer) 29 L (>=60 mL/min/1.73m^2) BUN/Creatinine Ratio 11.9 Glucose 147 H (74-106) mg/dL Calcium 9.3 (8.5-10.1) mg/dL Total Bilirubin 0.4 (0.2-1.0) mg/dL AST 32 (15-37) U/L ALT 40 (16-63) U/L Alkaline Phosphatase 55 (46-116) U/L Troponin I High Sens 6.8 (4.0-76.1) pg/mL Total Protein 7.3 (6.4-8.2) g/dL Albumin 3.5 (3.4-5.0) g/dL Globulin 3.8 g/dL Albumin/Globulin Ratio 0.9 TSH & Free T4 Interp 2.570 (0.358-3.740) uIU/mL Ethanol Quant 306 mg/dL Discharge Plan Discharge Chief Complaint: Chest Pain Clinical Impression: SINAN (acute kidney injury), Chest pain, ETOH abuse Patient Disposition: Admitted As Inpatient Time of Disposition Decision: 23:51 Condition: Good Prescriptions / Home Meds: No Action atorvastatin 40 mg tablet 40 mg PO DAILY budesonide-formoterol [Symbicort] 160-4.5 mcg/actuation HFA aerosol inhaler 1 inh INHALATION Q12H furosemide 20 mg tablet 20 mg PO DAILY losartan 50 mg tablet 50 mg PO DAILY metoprolol tartrate 25 mg tablet 25 mg PO Q12H tamsulosin 0.4 mg capsule 0.4 mg PO Q24H atorvastatin 40 mg tablet 40 mg PO QDAY allopurinol 100 mg tablet 100 mg PO QDAY omeprazole 40 mg capsule,delayed release(DR/EC) 40 mg PO QDAY furosemide 20 mg tablet 20 mg PO QDAY fluticasone propionate 50 mcg/actuation spray,suspension 1 spray INTRANASAL QDAY Print Language: Welsh Referrals: NICOLLE LINK [Primary Care Provider] - 1 week
--- NOTE | 2024-05-07 22:21 | ECG_ITS ---
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
--- OUTSIDE RECORDS SUMMARY | 2024-05-07 22:23 | XMS_ITS | CCD ---
Author Organization [facility] Inform ion [facility] Care Team Providers Care Corporate Sales Manager Name Role Phone Jose Victoria Unavailable DR [...] Admitting Unavailable SHAIKH GAGNON Primary Care Physician [phone] Carlos HOLLINS Attending Unavailable Carlos HOLLINS Attending Unavailable Carlos HOLLINS Attending Unavailable SHAIKH GAGNON Primary Care Unavailable Shaikh Gagnon MD Unavailable Rm Rainey MD Primary Care Provider Jennifer LUCERO, Mignon Unavailable Unallocated , Lorenzos Provider Primary Care Provi phoebe Rm Rainey MD Primary Care Provider SHAIKH GAGNON Attending Unavailable SHAIKH GAGNON Attending Unavailable SHAIKH GAGNON Attending Unavailable SHAIKH GAGNON Attending Unavailable MIGNON RODRIGUEZ Attending Unavailabl e MIGNON RODRIGUEZ Attending Unavailabl e Allergies Allergy Classification Reported Allergen(s) Allergy Type Date of Onset Reaction(s) Facility (1 source) No Known Medication Allergies; Translations: [No Known Medication Allergies] Propensity to adverse reactions (disorder) [facility] Repository Medications Current Medications Medication Drug Class(es) Dates Sig (Normalized) Sig (Original) [id number] 200 actuat albuterol 0.09 mg/actuat metered dose inhaler (17 sources) beta2-Adrenergic Agonist Start: 10-13-2023 take 1 [...] hrs Active allopurinol 100 mg oral tablet (18 sources) Xanthine Oxidase Inhibitor Start: 12-29-2023 End: [...] / zinc oxide 17.4 mg oral capsule (11 sources) Vitamin C Start: 06-24-2023 take 2 capsules by mouth once daily Multiple Vitamins-Minerals (PreserVision AREDS 2) capsule Take 2 capsules by mouth Daily 06/24/2023 Active atorvastatin 40 mg oral tablet (20 sources) HMG-CoA Reductase Inhibitor Start: 11-01-2019 End: 03-27-2024 take 1 tablet by mouth once daily atorvastatin (Lipitor) 40 MG tablet Indications: Hyperlipidemia, unspecified (CMS/HCC) Take 1 tablet (40 mg) by mouth Daily 90 tablet 1 03/27/2024 Active 60 actuat budesonide 0.16 mg/actuat / formoterol fumarate 0.0045 mg/actuat metered dose inhaler (11 sources) Corticosteroid, beta2-Adrenergic Agonist Start: 07-16-2024 take 2 puff(s) by mouth twice daily [...] by mouth every twelve hours at bedtime cetirizine-pseudoephe drine (ZyrTEC-D) 5-120 MG 12 hr tablet Indications: [...] twenty-four hours Vitamin D (Ergocalciferol) 50 MCG (2000 UT) 1 capsule Orally Once a day Active fluticasone propionate 0.05 mg/actuat metered dose nasal spray (13 sources) Corticosteroid Start: 04-23-2024 End: 04-23-2025 take 1-2 spray(s) nasal route once daily fluticasone (Flonase) 50 MCG/ACT nasal spray Indications: Viral upper respiratory tract infection Administer 1-2 sprays into each nostril Daily Shake gently. Before first use, prime pump. After use, clean tip and replace cap. 16 g 2 04/23/2024 04/23/2025 Active Start: 11-24-2023 End: 04-23-2024 take 2 spray(s) nasal route once daily fluticasone (Flonase) 50 MCG/ACT nasal spray Indications: Chronic rhinosinusitis with multiple nasal polyps Administer 2 sprays into each nostril Daily Shake gently. Before first use, prime pump. After use, clean tip and replace cap. 16 g 2 11/24/2023 04/23/2024 Discontinued (Duplicate order) furosemide 20 mg oral tablet (19 sources) Loop Diuretic Start: 11-01-2019 take 1 tablet by mouth once daily furosemide (Lasix) 20 MG tablet Indications: Chronic right heart failure (HCC) (CMS/HCC) Take 1 tablet (20 mg) by mouth Daily 90 tablet 2 12/29/2023 Active Ipratropium (13 sources) Anticholinergic Start: 11-01-2019 Atrovent HFA Inhalation, [...] Active losartan potassium 50 mg oral tablet (14 sources) Angiotensin 2 Receptor Ellis Start: 08-21-2021 End: 03-27-2024 take 1 tablet by mouth once daily losartan (Cozaar) 50 MG tablet Indications: Essential (primary) hypertension (CMS/HCC) Take 1 tablet (50 mg) by mouth Daily 90 tablet 1 03/27/2024 Active metoprolol tartrate 25 mg oral tablet (20 sources) beta-Adrenergic Ellis Start: 12-29-2023 End: 03-27-2024 take 1 tablet by mouth in the morning metoprolol tartrate (Lopressor) 25 MG tablet Indications: Essential (primary) hypertension (CMS/HCC) Take 1 tablet (25 mg) by mouth in the morning and 1 tablet (25 mg) before bedtime. 180 tablet 1 03/27/2024 Active Start: 10-13-2023 take 25 mg by mouth [...] omeprazole 40 mg delayed release oral capsule (13 sources) Proton Pump Inhibitor Start: 12-29-2023 End: 09-23-2024 take 1 capsule by mouth once daily omeprazole (PriLOSEC) [address] capsule Indications: Gastroesophageal reflux disease with esophagitis without hemorrhage Take 1 capsule (40 mg) by mouth Daily 90 capsule 1 03/27/2024 09/23/2024 Active predniSONE 20 mg oral tablet (2 sources) Start: 04-23-2024 End: 04-28-2024 take 2 tablets by mouth once daily predniSONE (Deltasone) 20 MG tablet Indications: Bronchitis Take 2 tablets (40 mg) by mouth Daily for 5 days 10 tablet 04/23/2024 04/28/2024 Active tamsulosin hydrochloride 0.4 mg oral capsule (19 sources) alpha-Adrenergi c Ellis Start: 12-20-2023 End: [...] cell carcinoma 11-01-2019 Chronic Cancer of prostate (13 sources) Malignant tumor of prostate; Translations: [Malignant neoplasm of prostate] Onset: 4 11-01-2019 Chronic Chronic kidney disease (16 sources) Chronic kidney disease stage 3; Translations: [Chronic kidney disease, stage III (moderate)] Onset: 4 10-13-2023 Chronic Chronic obstructive pulmonary disease and bronchiectasis (13 sources) Pulmonary emphysema; Translations: [Emphysema, unspecified] Onset: 3 05-10-2023 Chronic Chronic obstructive pulmonary disease and bronchiectasis (4 sources) Bronchitis; Translations: [Bronchitis, not specified as acute or chronic] Onset: 4 04-23-2024 Episodic Deficiency and other anemia (1 source) Anemia [...] esophagitis without hemorrhage] 03-27-2024 Chronic Essential hypertension (17 sources) Essential (primary) hypertension; Translations: [Hypertensive disorder] Onset: 3 11-01-2019 Chronic Genitourinary congenital anomalies (9 sources) Renal agenesis and dysgenesis; 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, unilateral] Onset: 2 Resolved: 2 Chronic Genitourinary symptoms and ill-defined conditions (6 sources) History of urinary tract infection; Translations: [Increased frequency of urination] 11-09-2019 Episodic Hyperplasia of prostate (17 sources) Benign prostatic hypertrophy with outflow obstruction; [...] origin)] Onset: 2 Resolved: 2 Chronic Other diseases of kidney and ureters (3 sources) Hyperparathyroidism due to renal insufficiency; Translations: [Secondary hyperparathyroidism of renal origin] Onset: 4 04-23-2024 Chronic Other injuries and conditions due to external causes (12 sources) Injury of right ankle; Translations: [Unspecified [...] disease] 10-13-2023 Episodic Other upper respiratory infections (11 sources) Chronic sinusitis, unspecified; Translations: [Unspecified sinusitis [...] absence of kidney] 10-13-2023 Episodic Substance-related disorders (20 sources) Nicotine dependence; Translations: [Nicotine dependence, unspecified, [...] Episodic Cancer of kidney and renal pelvis (15 sources) History of malignant neoplasm of kidney; Translations: [Personal history of other malignant neoplasm of kidney] Onset: 05-10-2023 Episodic Cancer of prostate (19 sources) Personal history of malignant neoplasm of prostate; Translations: [History of malignant neoplasm of prostate] Onset: 10-11-2022 Episodic Chronic kidney disease (8 sources) Chronic kidney disease; Translations: [Chronic kidney disease, stage III (moderate)] Onset: 06-18-2021 Resolved: 06-18-2021 E Codes: Unspecified (1 source) Blood alcohol level of 240 mg/100 ml or more; Translations: [BLOOD ALCOHOL LV 240 MG/100 ML/MORE] Onset: 04-12-2022 Episodic Gastrointestinal hemorrhage (11 sources) Hematemesis; Translations: [Hematemesis] Onset: 08-23-2023 Resolved: 09-28-2023 09-28-2023 Episodic Malaise and fatigue (1 source) Weakness; Translations: [WEAKNESS] Onset: 04-12-2022 Episodic Mood disorders (11 sources) Mood disorders Onset: 05-10-2023 05-10-2023 Other aftercare (1 source) Other watermaster (current) drug therapy; Translations: [OTH NEWSPAPER PUBLISHER CURRENT DRUG THERAPY] Onset: 04-12-2022 Episodic Other aftercare (11 sources) Post-discharge follow-up; Translations: [Encounter for follow-up examination after completed treatment for conditions other than malignant neoplasm] Onset: 08-23-2023 08-23-2023 Episodic Other connective tissue disease (1 source) Pain in left leg; Translations: [PAIN IN LEFT LEG] Onset: 01-04-2022 Episodic Other nervous system disorders (1 source) Slurred speech; Translations: [SLURRED SPEECH] Onset: 04-12-2022 Episodic Other non-traumatic joint disorders (11 sources) Chronic pain of right upper limb; Translations: [Pain in right shoulder] Onset: 09-28-2023 09-28-2023 Episodic Other non-traumatic joint disorders (11 sources) Hip pain; Translations: [Pain in left hip] Onset: 09-28-2023 09-28-2023 Episodic Other screening for suspected conditions (not mental disorders or infectious disease) (20 sources) Other specified abnormal findings of blood chemistry; Translations: [Raised prostate specific antigen] Onset: 02-16-2022 Episodic Other upper respiratory infections (16 sources) Acute upper respiratory infection; Translations: [Acute upper respiratory infection, unspecified] Onset: 05-10-2023 05-10-2023 Episodic Residual codes; unclassified (4 sources) Altered mental status, unspecified; Translations: [ALTERED MENTAL STATUS UNSPECIFIED] Onset: 04-08-2022 Episodic Spondylosis; intervertebral disc disorders; other back problems (11 sources) Chronic thoracic back pain; Translations: [Pain in thoracic spine] Onset: 08-23-2023 08-23-2023 Episodic Results Test Name Value Interpretation Reference Range Facility MHPT PSA, DIAGNOSTICon 04-18 PROSTATE SPECIFIC ANTIGEN DX 0.8 ng/mL NINF - 4.00 ng/mL [facility] No Panel [facility] SARS-COV-2 AG*on 03-19-2024 SARS-CoV-2 (COVID-19) RNA PAUL+probe Ql (Unsp spec) Negative NEGATIVE [facility] Comment on above: This test has not [...] is terminated or authorization is revoked sooner. [facility] INFLUENZA A AND B AGon 1 INFLUENZA VIRUS A ANTIGEN Negative [facility] Comment on above: Negative for Flu A p rotein antigen. Infection due to Flu A cannot be ruled out. Flu A antigen in the sample may be below the detection limit of the test. INFLUENZA VIRUS B ANTIGEN Negative [facility] Comment on above: Negative for Flu B p rotein antigen. Infection due to Flu B cannot be ruled out. Flu B antigen in the sample may be below the detection limit of the test. Ambulatory Visit Summaryon 0 01-17-2024 Ambulatory Visit Summary Ambulatory Visit Summary ARISTIDES ABBEY Lowery :1955 Visit Date:01/17/2024 Ambulatory Visit Instructions Your [...] Carlos HOLLINS MD Where: [facility] [address] [place] [address]- You Need to Schedule the Following Appointments Follow Up with Carlos HOLLINS MD, URL When: Where: [address] [place] [id number]- Medications What How Much When Instructions Changed tamsulosin (tamsulosin 0.4 mg Cap) 1 Capsules By Mouth Every day Duration: 90 Days Pickup at [facility] Unchanged allopurinol (allopurinol 100 mg Tab) [...] physician if questions or concerns Pharmacy Information [facility]: [address] [place] [id number] [phone] Allergies No Known Medication Allergies Problems Ongoing [...] care pr (more content not included)... Normal [facility] Urology Office/Clinic Noteon 01-17-2024 Urology Office/Clinic [...] - 0.23 Pt believes he had a Bejou 7. Completed at [facility]. [1] S/p brachytherapy 03/24/11. PSA decreased [...] Information GURVINDER HENDRICKSON, Carlos Day, URL [address] [place], [place] [id number]- Additional Instructions: 4 mos with PSA Patient Education Cancer Screening for Men ILaurel, personally scribed for Dr. Hollins on 01/17/2024 08:30:59. . Documentation recorded by the scribe, Laurel Bradley, accurately reflects the services(s) I performed and decisions made by me. Authenticated by Dr. Hollins on 01/17/2024 08:34:12. Portions of this record may have been created with voice recognition artificial intelligence software, specifically [employer], [employer] and or [employer]. Substitutions may have occurred due to the [...] Left nephrect (more content not included)... Normal [facility] Comment on above: Result Comment: Elec tronically Signed By: Carlos HOLLINS MD\.br\Date and Time Signed: 01/17/24 08:35 EDT\.br\Electronically Co-Signed By: Laurel Bradley\.br\Date and Time Co-Signed: 01/17/24 08:31 EDT ED Note-Physicianon 10-20-19 ED Note-Physician [id number] 0#1.00TIFF [facility] Lab Reportson 10-20-2023 Lab Reports [id number] 9#1.00TIFF [facility] Lab Reports [id number] 2#1.00TIFF [facility] RAD - CT Reporton 10-20-2023 RAD - CT Report [id number] 5#1.00TIFF [facility] Screenson 10-20-2023 Screens [id number] #1.00TIFF [facility] Ambulatory Visit Summaryon 0 10-17-2023 Ambulatory Visit Summary ABBEY MUSTAFA :1955 Visit Date:10/17/2023 Ambulatory Visit Instructions Your Diagnosis Rising PSA following treatment for malignant neoplasm of prostate Personal history of prostate cancer BPH with obstruction/lower urinary tract symptoms Personal history of renal cell carcinoma Your Care Team Attending Physician - Carlos HOLLINS MD Primary Care Physician - FAWWAD MD, PATEL This Is Your Medications List Contact prescribing [...] HENDRICKSON, Carlos Day Where: [facility] Patient Educationon 10-17-19 Patient Education Oncology Prostate Cancer The prostate [...] under a microscope. This is called the Bejou score and the total score can range from 6?10, indicating how likely it is that the cancer will spread (metastasize) to other parts of the body. The higher the score, the greater the likelihood that the cancer will spread. ? Primitivo 6 or lower: This indicates that the cancer cells look similar to normal prostate cells (well differentiated). ? Bejou 7: This indicates that the cancer cells [...] external be (more content not included)... Normal [facility] Urology Office/Clinic Noteon 10-17-2023 Urology Office/Clinic Note Chief Complaint 1 year follow up HPI Staff 1 year follow up w/PSA *Taking Flomax 0.4 mg qd S/P Lt Nephrectomy 2000 Pt was seen at [facility] on 09/06/23 due to left rib pain. BUN 36, Creatinine 1.09 10/04/23. BUN 26. Creatinine 1.33 09/06/23 CT SCAN 08/12/23 PSA: 10/26/19 - 0.05 08/10/21 - 0.05 10/11/22 - <0.13 09/30/23 - 0.90 Dysuria: denies pain or burning Incomplete bladder emptying: denies Hematuria: yes 6 weeks ago, went to [facility], vomiting blood Frequency: 3x a [...] with voice recognition artificial intelligence software, specifically [employer], [employer] and or [employer]. Substitutions may have occurred due to the inherent limitations of voice recognition and artificial intelligence software. 1. Rising PSA following treatment for malignant neoplasm of prostate (R97.21: Rising PSA following treatment for malignant neoplasm of prostate) PSA: 10/26/19 - 0.05 08/10/21 - 0.05 10/11/22 - <0.13 09/30/23 - 0.90 S/p brachytherapy 03/24/11. Pt believes he had a Bejou 7. Completed at [facility]. Rise in PSA is concerning given [...] adenocarcinoma the prostate, previously treated at the [facility] with prostate brachytherapy now has a [...] MD, URL [address] [address]- Additional Instructions: 3 mos w/ PSA Patient Education Prostate Cancer ITala, personally scribed for Dr. Hollins on 10/17/2023 10:42:59. . Documentation recorded by the scribeTala, accurately reflects the services(s) I performed and decisions made by me. Authenticated by Dr. Hollins on 10/17/2023 10:47:47. Problem List/Past (more content not included)... Normal [facility] Comment on above: Result Comment: Elec tronically Signed By: Carlos HOLLINS MD\.br\Date and Time Signed: 10/17/23 10:50 EDT Automated epithelial cells c ount in urine sediment (number/area)on 10-04-2023 Epithelial cells Auto (Urine sed) [#/Area] NONE SEEN #/LPF NONE/RARE [facility] Automated leukocytes count i n urine sediment (number/area)on 10-04-2023 WBC Auto (Urine sed) [#/Area] NONE SEEN #/HPF 0-2 [facility] Automated urine specific gra vity by refractometryon 10-04-2023 Specific gravity Refractometry automated (U) [Rel density] 1.025 1.005-1.025 [facility] Bilirubin Auto test strip (U ) [Mass/Vol]on 10-04-2023 Bilirubin (U) [Mass/Vol] Negative NEGATIVE [facility] Casts typing in urine sedime nt by light microscopyon 10-04-2023 Casts LM Nom (Urine sed) NONE SEEN #/LPF NONE SEEN [facility] Color Auto (U)on 10-04-2023 Color (U) YELLOW YELLOW [facility] Erythrocyte distribution wid th Auto (RBC) [Ratio]on 10-04-2023 Erythrocyte distribution width (RBC) [Ratio] 13.5 % 11.0-15.0 [facility] Estimated glomerular filtrat ion rate (GFR) non- Americanon 10-04-2023 GFR/1.73 sq M.predicted among non-blacks MDRD (S/P/Bld) [Vol rate/Area] mL/min/{1.73_m2} >=60 [facility] Hematocrit Auto (Bld) [Volum e fraction]on 10-04-2023 Hematocrit (Bld) [Volume fraction] 38.9 % 42.0-54.0 [facility] Hemoglobin [Mass/volume] in Bloodon 10-04-2023 Hemoglobin (Bld) [Mass/Vol] 13.2 g/dL 14.0-18.0 [facility] Iron binding capacity [Mass/ volume] in Serum or Plasmaon 10-04-2023 Iron binding capacity [Mass/Vol] 274.0 ug/dL 250.0-450.0 [facility] Iron saturation [Mass Fracti on] in Serum or Plasmaon 10-04-2023 Iron saturation [Mass fraction] 29.2 % [facility] Ketones Auto test strip (U) [Mass/Vol]on 10-04-2023 Ketones (U) [Mass/Vol] Negative NEGATIVE [facility] Laboratory - Chemistry and C hemistry - challengeon 10-04-2023 Albumin [Mass/Vol] 3.6 g/dL 3.4-5.0 [facility] Calcium [Mass/Vol] 9.4 mg/dL 8.5-10.1 [facility] Chloride [Moles/Vol] 104 mmol/L 98-107 [facility] CO2 [Moles/Vol] 24.4 mmol/L 21.0-32.0 [facility] Creatinine [Mass/Vol] 1.09 mg/dL 0.70-1.30 [facility] Ferritin [Mass/Vol] 257.0 ng/mL 26.0-388.0 [facility] GFR/1.73 sq M.predicted MDRD (S/P/Bld) [Vol rate/Area] mL/min/{1.73_m2} >=60 [facility] Glucose [Mass/Vol] 117 mg/dL 74-106 [facility] Iron [Mass/Vol] 80.0 ug/dL 65.0-175.0 [facility] Potassium [Moles/Vol] 3.9 mmol/L 3.5-5.1 [facility] Sodium [Moles/Vol] 139 mmol/L 136-145 [facility] Urate [Mass/Vol] 5.6 mg/dL 3.5-7.2 [facility] Urea nitrogen [Mass/Vol] 36.0 mg/dL 7.0-18.0 [facility] Urea nitrogen/Creatinine [Mass ratio] 33.0 mg/mg [facility] Laboratory - Urinalysison Protein (U) [Mass/Vol] 16.2 mg/dL <=11.9 [facility] Leukocytes [#/volume] correc yoandy for nucleated erythrocytes in Blood by Automated counon 10-04-2023 WBC corrected for nucl RBC Auto (Bld) [#/Vol] 11.9 10 3/uL 4.0-11.0 [facility] MCH Auto (RBC) [Entitic mass ]on 10-04-2023 MCH (RBC) [Entitic mass] 31.6 pg 25.9-34.0 [facility] MCHC Auto (RBC) [Mass/Vol]on 10-04-2023 MCHC (RBC) [Mass/Vol] 33.9 g/dL 29.9-35.2 [facility] MCV Auto (RBC) [Entitic vol] on 10-04-2023 MCV (RBC) [Entitic vol] 93.1 fL 80.0-94.0 [facility] Mucus LM Ql (Urine sed)on Mucus Ql (Urine sed) NONE SEEN NONE SEEN [facility] No Panel Informationon 10-03 25-Hydroxy Vitamin D Total 29.7 ng/mL [facility] Comment on above: <20 ng/mL Vit D defi cient20-<30 ng/mL Vit D [id number] ng/mL Vit D sufficient>100 ng/mL Potential Toxicity Parathyroid Hormone (Intact) 35 pg/mL 15-65 [facility] Comment on above: Performed at: [place] [id number] Director: Raymundo Wynn PhD, Phone: [phone] Phosphorus Level 4.4 mg/dL 2.6-4.7 [facility] Urine Random Creatinine 102.05 mg/dL 20.00-300.00 [facility] Platelet mean volume Auto (B ld) [Entitic vol]on 10-04-2023 Platelet mean volume (Bld) [Entitic vol] 10.5 fL 9.5-13.5 [facility] Platelets Auto (Bld) [#/Vol] on 10-04-2023 Platelets (Bld) [#/Vol] 244 10 3/uL 150-450 [facility] Protein Auto test strip (U) [Mass/Vol]on 10-04-2023 Protein (U) [Mass/Vol] Negative NEG/TRACE [facility] RBC Auto (Bld) [#/Vol]on RBC (Bld) [#/Vol] 4.18 10 6/uL 4.70-6.10 [facility] Serum or plasma anion gap de terminationon 10-04-2023 Anion gap [Moles/Vol] 14.5 mmol/L [facility] Specific gravity Auto test s trip (U) [Rel density]on 10-04-2023 Specific gravity (U) [Rel density] CLEAR CLEAR [facility] Urine bacteria detection by automated methodon 10-04-2023 Bacteria Auto Ql (U) NONE SEEN #/HPF NONE SEEN [facility] Urine glucose measurement by test strip (mass/volume)on 10-04-2023 Glucose Test strip (U) [Mass/Vol] Negative NEGATIVE [facility] Urine hemoglobin detection b y automated test stripon 10-04-2023 Hemoglobin Auto test strip Ql (U) Negative NEGATIVE [facility] Urine nitrite detection by a utomated test stripon 10-04-2023 Nitrite Auto test strip Ql (U) Negative NEGATIVE [facility] Urine protein/creatinine rat ioon 10-04-2023 Protein/Creatinine (U) [Ratio] 0.16 [facility] Urine sediment crystal ident ification by light microscopyon 10-04-2023 Crystals LM Nom (Urine sed) None Seen #/HPF None Seen [facility] Urine sediment leukocyte cou nt by microscopy (number/high power field)on 10-04-2023 WBC LM.HPF (Urine sed) [#/Area] 0-2 #/HPF NONE SEEN [facility] Urobilinogen Auto test strip (U) [Mass/Vol]on 10-04-2023 Urobilinogen Qn (U) 0.2 {Dash'U}/dL 0.2-1.0 [facility] pH Auto test strip (U)on pH (U) 6.0 [pH] 5.0-9.0 [facility] Lab Reportson 09-30-2023 Lab Reports [id number] #1.00TIFF Normal [facility] CT CHEST WO CONon 10-11-2022 CT [...] LUCAS GOLDSTEIN Date: 2022-10-11 15:[address] [facility] CBC AUTO DIFFon 08-23-2022 BASO # 0.0 103/ul Normal 0.0-0.[address] [facility] Comment on above: Performed By: #### C BC #### [facility] [address] [place] [address] Dr. Jesus White Basophils/100 WBC (Bld) 0.5 % Normal 0.2-2.[address] [facility] Comment on above: Performed By: #### C BC #### [facility] [address] [place] [address] Dr. Jesus White EO # 0.2 103/ul Normal 0.0-0.[address] [facility] Comment on above: Performed By: #### C BC #### [facility] [address] [place] [address] Dr. Jesus White Eosinophils/100 WBC (Bld) 2.2 % Normal 0.9-7.[address] [facility] Comment on above: Performed By: #### C BC #### [facility] [address] [place] [address] Dr. Jesus White Erythrocyte distribution width (RBC) [Ratio] 13.3 % Normal 11.0-15.0 [place] Comment on above: Performed By: #### C BC #### [facility] [address] [place] [address] Dr. Jesus White Hematocrit (Bld) [Volume fraction] 43.0 % Normal 42.0-54.0 [place] Comment on above: Performed By: #### C BC #### [facility] [address] [place] [address] Dr. Jesus White Hemoglobin (Bld) [Mass/Vol] 14.4 g/dL Normal 14.0-18.0 [place] Comment on above: Performed By: #### C BC #### [facility] [facility] [address] [place] [address] Dr. Jesus White IG # 0.02 10e3/ul Normal 0.00-0.03 [place] Comment on above: Performed By: #### C BC #### [facility] [address] [place] [address] Dr. Jesus White IG % 0.2 % Normal 0.0-0.5 [place] Comment on above: Performed By: #### C BC #### [facility] [address] [place] [address] Dr. Jesus White LYMPH # 3.0 103/ul Normal 1.2-3.8 [place] Comment on above: Performed By: #### C BC #### [facility] [address] [place] [address] Dr. Jesus White Lymphocytes/100 WBC (Bld) 35.8 % Normal 20.5-60.0 [place] Comment on above: Performed By: #### C BC #### [facility] [address] [place] [address] Dr. Jesus White MANUAL DIFF REQ NO Normal [facility] Comment on above: Performed By: #### C BC #### [facility] [address] [place] [address] Dr. Jesus White MCH (RBC) [Entitic mass] 30.6 pg Normal 25.9-34.0 [place] Comment on above: Performed By: #### C BC #### [facility] [address] [place] [address] Dr. Jesus White MCHC (RBC) [Mass/Vol] 33.5 g/dL Normal 29.9-35.[address] [facility] Comment on above: Performed By: #### C BC #### [facility] [address] [place] [address] Dr. Jesus White MCV (RBC) [Entitic vol] 91.5 fL Normal 80.0-94.0 [place] Comment on above: Performed By: #### C BC #### [facility] [address] [place] [address] Dr. Jesus White MONO # 0.8 103/ul Normal 0.3-0.[address] [facility] Comment on above: Performed By: #### C BC #### [facility] [address] [place] [address] Dr. Jesus White Monocytes/100 WBC (Bld) 9.1 % Normal 1.7-12.0 [place] Comment on above: Performed By: #### C BC #### [facility] [address] [place] [address] Dr. Jesus White NEUT # 4.4 103/ul Normal 1.4-6.5 [place] Comment on above: Performed By: #### C BC #### [facility] [address] [place] [address] Dr. Jesus White Neutrophils/100 WBC (Bld) 52.2 % Normal 43.0-75.[address] [facility] Comment on above: Performed By: #### C BC #### [facility] [address] [place] [address] Dr. Jesus White Platelet mean volume (Bld) [Entitic vol] 9.8 fL Normal 9.5-13.[address] [facility] Comment on above: Performed By: #### C BC #### [facility] [address] [place] [address] Dr. Jesus White PLT 236 103/ul Normal 150-[address] [facility] Comment on above: Performed By: #### C BC #### [facility] [address] [place] [address] Dr. Jesus White RBC 4.70 106/ul Normal 4.70-6.10 [place] Comment on above: Performed By: #### C BC #### [facility] [address] [place] [address] Dr. Jesus White WBC 8.4 103/ul Normal 4.0-11.0 [place] Comment on above: Performed By: #### C BC #### [facility] [address] [place] [address] Dr. Jesus White LIPID PROFILEon 08-23-2022 CHOL-HDL RATIO NORM SEE BELOW Normal [facility] Comment on above: Result Comment: 3.3 - 4.4 LOW RISK 4.4 - 7.1 AVERAGE RISK 7.1 - 11.0 MODERATE RISK >11.0 HIGH RISK Performed By: #### C MP, LIPID #### [facility] [address] [place] [address] Dr. Jesus White Cholesterol [Mass/Vol] 121 mg/dL Normal <=200 [place] Comment on above: Performed By: #### C MP, LIPID #### [facility] [address] [place] [address] Dr. Jesus White Cholesterol in HDL [Mass/Vol] 37 mg/dL Critically low 40-60 [place] Comment on above: Performed By: #### C MP, LIPID #### [facility] [address] [place] [address] Dr. Jesus White Cholesterol in LDL [Mass/Vol] 59.6 mg/dL Normal [place] Comment on above: Performed By: #### C MP, LIPID #### [facility] [address] [place] [address] Dr. Jesus White Cholesterol.total/Ch olesterol in HDL [Mass ratio] 3.3 {ratio} Normal [place] Comment on above: Performed By: #### C MP, LIPID #### [facility] [address] [place] [address] Dr. Jesus White HDL NORMAL > or = 60 mg/dl - LOW CARDIOVASCULAR RISK <40 mg/dl - HIGH CARDIOVASCULAR RISK Normal [place] Comment on above: Performed By: #### C MP, LIPID #### [facility] [address] [place] [address] Dr. Jesus White LDL CALC NORMAL SEE BELOW Normal [facility] Comment on above: Result Comment: <100 mg/dl OPTIMAL 100 - 129 mg/dl NEAR OR ABOVE OPTIMAL 130 - 159 mg/dl BORDERLINE HIGH 160 - 189 mg/dl HIGH >190 mg/dl VERY HIGH Performed By: #### C MP, LIPID #### [facility] [address] [place] [address] Dr. Jesus White Triglyceride [Mass/Vol] 122 mg/dL Normal <=150 [place] Comment on above: Performed By: #### C MP, LIPID #### [facility] [address] [place] [address] Dr. Jesus White VLDL CALC 24.4 mg/dL Normal [place] Comment on above: Performed By: #### C MP, LIPID #### [facility] [address] [place] [address] Dr. Jesus White PROF 14(COMP METB)on 023 Albumin [Mass/Vol] 3.8 g/dL Normal 3.4-5.[address] [facility] Comment on above: Performed By: #### C MP, LIPID #### [facility] [address] [place] [address] Dr. Jesus White Albumin/Globulin [Mass ratio] 1.1 {ratio} Normal [place] Comment on above: Performed By: #### C MP, LIPID #### [facility] [address] [place] [address] Dr. Jesus White ALP [Catalytic activity/Vol] 46 U/L Normal 46-116 [place] Comment on above: Performed By: #### C MP, LIPID #### [facility] [address] [place] [address] Dr. Jesus White ALT [Catalytic activity/Vol] 37 U/L Normal 16-63 [place] Comment on above: Performed By: #### C MP, LIPID #### [facility] [address] [place] [address] Dr. Jesus White Anion gap [Moles/Vol] 11.3 mmol/L Normal [place] Comment on above: Performed By: #### C MP, LIPID #### [facility] [address] [place] [address] Dr. Jesus White AST [Catalytic activity/Vol] 28 U/L Normal 15-37 [place] Comment on above: Performed By: #### C MP, LIPID #### [facility] [address] [address] [address] Jesus White Bilirubin [Mass/Vol] 0.5 mg/dL Normal 0.2-1.0 [place] Comment on above: Performed By: #### C MP, LIPID #### [facility] [address] [place] [address] Dr. Jesus White Calcium [Mass/Vol] 9.5 mg/dL Normal 8.5-10.[address] [facility] Comment on above: Performed By: #### C MP, LIPID #### [facility] [address] [place] [address] Dr. Jesus White Chloride [Moles/Vol] 104 mmol/L Normal 98-107 [place] Comment on above: Performed By: #### C MP, LIPID #### [facility] [address] [place] [address] Dr. Jesus White CO2 [Moles/Vol] 28.9 mmol/L Normal 21.0-32.0 [facility] Comment on above: Performed By: #### C MP, LIPID #### [facility] [address] [place] [address] Dr. Jesus White Creatinine [Mass/Vol] 0.99 mg/dL Normal 0.70-1.30 [place] Comment on above: Performed By: #### C MP, LIPID #### [facility] [address] [place] [address] Dr. Jesus White EGFR-AF ALGERIAN >60 Normal >=60 [facility] Comment on above: Performed By: #### C MP, LIPID #### [facility] [address] [place] [address] Dr. Jesus White EGFR-NON AF ALGERIAN >60 Normal >=[address] [facility] Comment on above: Performed By: #### C MP, LIPID #### [facility] [address] [address] [address] Jesus White Globulin (S) [Mass/Vol] 3.6 g/dL Normal [place] Comment on above: Performed By: #### C MP, LIPID #### [facility] [address] [address] [address] Jesus White Glucose [Mass/Vol] 92 mg/dL Normal 74-[address] [facility] Comment on above: Performed By: #### C MP, LIPID #### [facility] [address] [address] [address] Jesus White Potassium [Moles/Vol] 4.2 mmol/L Normal 3.5-5.1 [place] Comment on above: Performed By: #### C MP, LIPID #### [facility] [address] [place] [address] Dr. Jesus White Protein [Mass/Vol] 7.4 g/dL Normal 6.4-8.[address] [facility] Comment on above: Performed By: #### C MP, LIPID #### [facility] [address] [place] [address] Dr. Jesus White Sodium [Moles/Vol] 140 mmol/L Normal 136-[address] [facility] Comment on above: Performed By: #### C MP, LIPID #### [facility] [address] [address] [address] Jesus White Urea nitrogen [Mass/Vol] 12.0 mg/dL Normal 7.0-18.0 [place] Comment on above: Performed By: #### C MP, LIPID #### [facility] [address] [address] [address] Jesus White Urea nitrogen/Creatinine [Mass ratio] 12.1 mg/mg Normal [place] Comment on above: Performed By: #### C MP, LIPID #### [facility] [address] [address] [address] LUNG CANCER SCREENINGon [...] LUCAS GOLDSTEIN Date: 2022-07-05 12:[address] [facility] BLOOD GASES BTYon 04-08-2022 02 MODE ROOM AIR Normal [facility] Comment on above: Performed By: #### A BG ####[facility] [address] [id number]. Jesus White ALLENS TEST Positive Normal [facility] Comment on above: Performed By: #### A BG ####[facility] [address] [id number]. Jesus White Base excess Calc (Bld) [Moles/Vol] -0.4000 mmol/L Normal -2.0-2.0 [place] Comment on above: Performed By: #### A BG ####[facility] [address] [address]Dr. Jesus White BIPAP PRESSURE Normal [facility] Comment on above: Performed By: #### A BG ####[facility] [address] [place], [place] [address]Dr. Jesus White CPAP Normal [facility] Comment on above: Performed By: #### A BG ####[facility] [address] [address]Dr. Jesus White FIO2 Normal [place] Comment on above: Performed By: #### A BG ####[facility] [address] [place], [place] [address]Dr. Jesus White HCO3 (Bld) [Moles/Vol] 24.7 mmol/L Normal 22.0-26.[address] [facility] Comment on above: Performed By: #### A BG ####[facility] [address] [place], [place] [address]Dr. Jesus White LPM Normal [facility] Comment on above: Performed By: #### A BG ####[facility] [address] [place], [place] [address]Dr. Jesus White MINUTE VOLUME Normal [facility] Comment on above: Performed By: #### A BG ####[facility] [address] [place], [place] [address]Dr. Jesus White Oxygen (Bld) [Partial pressure] 75.3 mm[Hg] Critically low 80.0-100.[address] [facility] Comment on above: Performed By: #### A BG ####[facility] [address] [place], [place] [address]Dr. Jesus White Oxygen saturation in Blood 94.7 % Critically low 95.0-100.[address] [facility] Comment on above: Performed By: #### A BG ####[facility] [address] [place], [place] [address]Dr. Jesus White PCO2 42.0 mmHg Normal 35.0-45.[address] [facility] Comment on above: Performed By: #### A BG ####[facility] [address] [address]Dr. Jesus White PEEP [facility] Comment on above: Performed By: #### A BG ####[facility] [address] [address]DrJordin White pH (Bld) 7.379 [pH] Normal 7.350-7.450 [place] Comment on above: Performed By: #### A BG ####[facility] [address] [address]Dr. Jesus White PIP [facility] Comment on above: Performed By: #### A BG ####[facility] [address] [address]DrJordin White PS [facility] Comment on above: Performed By: #### A BG ####[facility] [address] [address]DrJordin White PUNCTURE SITE LR [facility] Comment on above: Performed By: #### A BG ####[facility] [address] [place], [place] [address]DrJordin White RATE [facility] Comment on above: Performed By: #### A BG ####[facility] [address] [address]DrJordin White VENT MODE [facility] Comment on above: Performed By: #### A BG ####[facility] [address] [address]DrJordin White [place] [facility] Comment on above: Performed By: #### A BG ####[facility] [address] [place], [place] [address]DrJordin White CBC AUTO DIFFon 04-08-2022 BASO # 0.1 103/ul Normal 0.0-0.1 [place] Comment on above: Performed By: #### C BC #### [facility] [address] [address] [address] Jesus White Basophils/100 WBC (Bld) 0.6 % Normal 0.2-2.0 [place] Comment on above: Performed By: #### C BC #### [facility] [address] [address] [address] Jesus White EO # 0.2 103/ul Normal 0.0-0.7 [place] Comment on above: Performed By: #### C BC #### [facility] [address] [place] [address] Dr. Jesus White Eosinophils/100 WBC (Bld) 1.5 % Normal 0.9-7.0 [place] Comment on above: Performed By: #### C BC #### [facility] [address] [place] [address] Dr. Jesus White Erythrocyte distribution width (RBC) [Ratio] 13.2 % Normal 11.0-15.0 [place] Comment on above: Performed By: #### C BC #### [facility] [address] [place] [address] Dr. Jesus White Hematocrit (Bld) [Volume fraction] 41.7 % Critically low 42.0-54.0 [place] Comment on above: Performed By: #### C BC #### [facility] [address] [place] [address] Dr. Jesus White Hemoglobin (Bld) [Mass/Vol] 14.3 g/dL Normal 14.0-18.0 [place] Comment on above: Performed By: #### C BC #### [facility] [address] [place] [address] Dr. Jesus White IG # 0.03 10e3/ul Normal 0.00-0.03 [place] Comment on above: Performed By: #### C BC #### [facility] [address] [place] [address] Dr. Jesus White IG % 0.3 % Normal 0.0-0.[address] [facility] Comment on above: Performed By: #### C BC #### [facility] [address] [place] [address] Dr. Jesus Wihte LYMPH # 5.6 103/ul Critically high 1.2-3.8 [facility] Comment on above: Performed By: #### C BC #### [facility] [address] [place] [address] Dr. Jesus White Lymphocytes/100 WBC (Bld) 57.0 % Normal 20.5-60.0 [place] Comment on above: Performed By: #### C BC #### [facility] [address] [place] [address] Dr. Jesus White MANUAL DIFF REQ NO Normal [facility] Comment on above: Performed By: #### C BC #### [facility] [address] [place] [address] Dr. Jesus White MCH (RBC) [Entitic mass] 31.4 pg Normal 25.9-34.0 [place] Comment on above: Performed By: #### C BC #### [facility] [address] [place] [address] Dr. Jesus White MCHC (RBC) [Mass/Vol] 34.3 g/dL Normal 29.9-35.2 [place] Comment on above: Performed By: #### C BC #### [facility] [address] [place] [address] Dr. Jesus White MCV (RBC) [Entitic vol] 91.6 fL Normal 80.0-94.0 [place] Comment on above: Performed By: #### C BC #### [facility] [address] [place] [address] Dr. Jesus White MONO # 0.5 103/ul Normal 0.3-0.[address] [facility] Comment on above: Performed By: #### C BC #### [facility] [address] [place] [address] Dr. Jesus White Monocytes/100 WBC (Bld) 5.1 % Normal 1.7-12.[address] [facility] Comment on above: Performed By: #### C BC #### [facility] [address] [place] [address] Dr. Jesus White NEUT # 3.5 103/ul Normal 1.4-6.[address] [facility] Comment on above: Performed By: #### C BC #### [facility] [address] [address] [address] Jesus White Neutrophils/100 WBC (Bld) 35.5 % Critically low 43.0-75.0 [place] Comment on above: Performed By: #### C BC #### [facility] [address] [address] [address] Jesus White Platelet mean volume (Bld) [Entitic vol] 9.5 fL Normal 9.5-13.5 [place] Comment on above: Performed By: #### C BC #### [facility] [address] [address] [address] Jesus White PLT 222 103/ul Normal 150-450 [place] Comment on above: Performed By: #### C BC #### [facility] [address] [address] [address] Jesus White RBC 4.55 106/ul Critically low 4.70-6.10 [facility] Comment on above: Performed By: #### C BC #### [facility] [address] [address] [address] Jesus White WBC 9.8 103/ul Normal 4.0-11.[address] [facility] Comment on above: Performed By: #### C BC #### [facility] [address] [place] [address] STROKE HEAD WOon [...] ERNA LEON Date: 2022-04-08 18:50 Normal [facility] SARS-CoV-2 (COVID-19) RNA PAUL+probe Ql (Unsp spec) Not detected Normal NOT DETECTED [facility] Comment on above: Result Comment: When [...] for this test is supported by the Lpn Care Manager of Health and Human Service's declaration that [...] used). Performed By: #### C VDTBH #### [facility] [address] [place] [address] Dr. Jesus White ETHANOL (BLD ALC)on 04-08-20 22 ALC NOTE NOTE: 80 mg/dl is the legal limit for a blood alcohol level Normal [facility] Comment on above: Performed By: #### E TH ####[facility] [address] [id number]. Jesus White Ethanol [Mass/Vol] 344 mg/dL Normal [facility] Comment on above: Performed By: #### E TH ####[facility] [address] [id number]. Jesus White PROF 14(COMP METB)on 022 Albumin [Mass/Vol] 3.5 g/dL Normal 3.4-5.[address] [facility] Comment on above: Performed By: #### C MP, HSTROPN #### [facility] [address] [address] [address] Jesus White Albumin/Globulin [Mass ratio] 1.0 {ratio} Normal [place] Comment on above: Performed By: #### C JROGE HSTROPN #### [facility] [address] [place] [address] Dr. Jesus White ALP [Catalytic activity/Vol] 41 U/L Critically low 46-116 [place] Comment on above: Performed By: #### C JORGE HSTROPN #### [facility] [address] [place] [address] Dr. Jesus White ALT [Catalytic activity/Vol] 28 U/L Normal 16-63 [place] Comment on above: Performed By: #### C JORGE HSTROPN #### [facility] [address] [place] [address] Dr. Jesus White Anion gap [Moles/Vol] 12.1 mmol/L Normal [place] Comment on above: Performed By: #### C JORGE HSTROPN #### [facility] [address] [place] [address] Dr. Jesus White AST [Catalytic activity/Vol] 19 U/L Normal 15-37 [place] Comment on above: Performed By: #### C JORGE HSTROPN #### [facility] [address] [place] [address] Dr. Jesus White Bilirubin [Mass/Vol] 0.3 mg/dL Normal 0.2-1.0 [place] Comment on above: Performed By: #### C JORGE HSTROPN #### [facility] [address] [place] [address] Dr. Jesus White Calcium [Mass/Vol] 8.8 mg/dL Normal 8.5-10.[address] [facility] Comment on above: Performed By: #### C JORGE, HSTROPN #### [facility] [address] [place] [address] Dr. Jesus White Chloride [Moles/Vol] 105 mmol/L Normal 98-[address] [facility] Comment on above: Performed By: #### C JORGE, HSTROPN #### [facility] [address] [address] [address] Jesus White CO2 [Moles/Vol] 24.8 mmol/L Normal 21.0-32.0 [facility] Comment on above: Performed By: #### C MP, HSTROPN #### [facility] [address] [place] [address] Dr. Jesus White Creatinine [Mass/Vol] 1.53 mg/dL Critically high 0.70-1.30 [place] Comment on above: Performed By: #### C MP, HSTROPN #### [facility] [address] [place] [address] Dr. Jesus White EGFR-AF ALGERIAN 55 mL/min/1.73m2 Critically low >=60 [place] Comment on above: Result Comment: Prev iously reported as: (blank) On 04/08/2022 19:15 By [facility] Performed By: #### C MP, HSTROPN #### [facility] [address] [place] [address] Dr. Jesus White EGFR-NON AF ALGERIAN 46 mL/min/1.73m2 Critically low >=60 [place] Comment on above: Result Comment: Prev iously reported as: (blank) On 04/08/2022 19:15 By [facility] Performed By: #### C MP, HSTROPN #### [facility] [address] [place] [address] Dr. Jesus White Globulin (S) [Mass/Vol] 3.5 g/dL Normal [place] Comment on above: Performed By: #### C MP, HSTROPN #### [facility] [address] [place] [address] Dr. Jesus White Glucose [Mass/Vol] 116 mg/dL Critically high 74-106 [facility] Comment on above: Performed By: #### C MP, HSTROPN #### [facility] [address] [place] [address] Dr. Jesus White Potassium [Moles/Vol] 3.9 mmol/L Normal 3.5-5.1 [place] Comment on above: Performed By: #### C MP, HSTROPN #### [facility] [address] [address] [address] Jesus White Protein [Mass/Vol] 7.0 g/dL Normal 6.4-8.[address] [facility] Comment on above: Performed By: #### C MP, HSTROPN #### [facility] [address] [address] [address] Jesus White Sodium [Moles/Vol] 138 mmol/L Normal 136-145 [facility] Comment on above: Performed By: #### C MP, HSTROPN #### [facility] [address] [address] [address] Jesus White Urea nitrogen [Mass/Vol] 17.0 mg/dL Normal 7.0-18.0 [place] Comment on above: Performed By: #### C MP, HSTROPN #### [facility] [address] [address] [address] Jesus White Urea nitrogen/Creatinine [Mass ratio] 11.1 mg/mg Normal [place] Comment on above: Performed By: #### C MP, HSTROPN #### [facility] [address] [address] [address] Jesus White PROTIMEon 04-08-2022 INR Coag (PPP) [Relative time] 1.00 {INR} Normal [place] Comment on above: Performed By: #### P TT, PT ####[facility] [address] [address]Dr. Jesus White INR GUIDELINES SEE BELOW Normal [facility] Comment on above: Result Comment: JULIET RED INR: 2.0 - 3.0 CONDITIONS NOT LISTED BELOW 2.5 - 3.5 FOR PROSTHETIC HEART VALVE REPLACEMENT 2.5 - 3.5 RECURRENT THROMBOSIS Performed By: #### P TT, PT ####[facility] [address] [address]Dr. Jesus White PT Coag (PPP) [Time] 10.8 s Normal 9.0-11.6 [place] Comment on above: Performed By: #### P TT, PT ####[facility] [address] [id number]. Jesus White PTTon 04-08-2022 aPTT Coag (Bld) [Time] 24.8 s Normal 22.3-36.2 [place] Comment on above: Performed By: #### P TT, PT ####[facility] [address] [id number] White TROPONIN, HIGH SENSITIVITYon 04-08-2022 HSTROP 16.7 pg/mL Normal 4.0-76.1 [place] Comment on above: Result Comment: CUT- OFF POINTS HAVE BEEN ESTABLISHED BASED ON THE FOURTH UNIVERSAL DEFINITIONS OF MYOCARDIAL INFARCTION. THE UPPER REFERENCE LIMIT (URL) OF TROPONIN, DEFINED THE 99TH PERCENTILE OF cTnI DISTRIBUTION IN A REFERENCE POPULATION, HAS BEEN CONFIRMED THE DECISION THRESHOLD FOR [place] DIAGNOSIS. Performed By: #### C MP, HSTROPN #### [facility] [address] [place] [address] Dr. Jesus White PROF CHEM 8 (BAS METB)on Anion gap [Moles/Vol] 13.3 mmol/L Normal [place] Comment on above: Performed By: #### B MP #### [facility] [address] [place] [address] Dr. Jesus White Calcium [Mass/Vol] 9.7 mg/dL Normal 8.5-10.[address] [facility] Comment on above: Performed By: #### B MP #### [facility] [address] [place] [address] Dr. Jesus White Chloride [Moles/Vol] 103 mmol/L Normal 98-[address] [facility] Comment on above: Performed By: #### B MP #### [facility] [address] [place] [address] Dr. Jesus White CO2 [Moles/Vol] 28.4 mmol/L Normal 21.0-32.0 [facility] Comment on above: Performed By: #### B MP #### [facility] [address] [place] [address] Dr. Jesus White Creatinine [Mass/Vol] 1.21 mg/dL Normal 0.70-1.30 [place] Comment on above: Performed By: #### B MP #### [facility] [address] [address] [address] Jesus White EGFR-AF ALGERIAN >60 Normal >=60 [facility] Comment on above: Performed By: #### B MP #### [facility] [address] [address] [address] Jesus White EGFR-NON AF ALGERIAN 60 mL/min/1.73m2 Normal >=60 [place] Comment on above: Performed By: #### B MP #### [facility] [address] [address] [address] Jesus White Glucose [Mass/Vol] 95 mg/dL Normal 74-[address] [facility] Comment on above: Performed By: #### B MP #### [facility] [address] [address] [address] Jesus White Potassium [Moles/Vol] 3.7 mmol/L Normal 3.5-5.1 [place] Comment on above: Performed By: #### B MP #### [facility] [address] [address] [address] Jesus White Sodium [Moles/Vol] 141 mmol/L Normal 136-145 [facility] Comment on above: Performed By: #### B MP #### [facility] [address] [address] [address] Jesus White Urea nitrogen [Mass/Vol] 12.0 mg/dL Normal 7.0-18.0 [place] Comment on above: Performed By: #### B MP #### [facility] [address] [address] [address] Jesus White Urea nitrogen/Creatinine [Mass ratio] 9.9 mg/mg Normal [place] Comment on above: Performed By: #### B MP #### [facility] [address] [address] [address] Jesus White ER URINE PROFILEon 2 Bilirubin Ql (U) Negative Normal NEGATIVE [facility] Comment on above: Performed By: #### VALERIO GOULDRO ####[facility] [address] [address]Dr. Jesus White Clarity (U) CLEAR Normal CLEAR [place] Comment on above: Performed By: #### VALERIO GOULDRO ####[facility] [address] [address]Dr. Carollan White Color (U) LT. YELLOW Normal YELLOW [place] Comment on above: Performed By: #### VALERIO GOULDRO ####[facility] [address] [address]Dr. Jesus White ERUAHD A micrscopic examination will be performed if indicated. Normal [facility] Comment on above: Performed By: #### VALERIO GOULDRO ####[facility] [address] [place], [place] [address]Dr. Jesus White Glucose Ql (U) Negative Normal NEGATIVE [facility] Comment on above: Performed By: #### VALERIO GOULDRO ####[facility] [address] [place], [place] [address]Dr. Yilan White Hemoglobin Ql (U) Negative Normal NEGATIVE [facility] Comment on above: Performed By: #### VALERIO GOULDRO ####[facility] [address] [place], [place] [address]Dr. Jesus White Ketones Ql (U) Negative Normal NEGATIVE [facility] Comment on above: Performed By: #### VALERIO GOULDRO ####[facility] [address] [place], [place] [address]Dr. Yilan White LEUKOCYTES Negative Normal NEGATIVE [place] Comment on above: Performed By: #### VALERIO GOULDRO ####[facility] [address] [place], [place] [address]Dr. Yilan White Nitrite Ql (U) Negative Normal NEGATIVE [facility] Comment on above: Performed By: #### VALERIO GOULDRO ####[facility] [address] [place], [place] [address]Dr. Jesus White pH (U) 6.0 [pH] Normal 5-[address] [facility] Comment on above: Performed By: #### CALEB GOULD ####[facility] [address] [address]Dr. Jesus White SPEC GRAVITY <=1.005 Abnormal 1.005-<=1.025 [facility] Comment on above: Performed By: #### CALEB GOULD ####[facility] [address] [address]Dr. Jesus White UA PROTEIN Negative Normal NEGATIVE/ TRACE [facility] Comment on above: Performed By: #### CALEB GOULD ####[facility] [address] [place], [place] [address]Dr. Jesus White UR MICRO IND INDICATED Normal [facility] Comment on above: Performed By: #### CALEB GOULD ####[facility] [address] [place], [place] [address]Dr. Jesus White Urobilinogen Qn (U) 0.2 {Dash'U}/dL Normal 0.2 - 1. [address] [facility] Comment on above: Performed By: #### CALEB GOULD ####[facility] [address] [place], [place] [address]Dr. Jesus White URINE MICROSCOPIC ONLYon BACTERIA NONE SEEN Normal NONE SEEN [facility] Comment on above: Performed By: #### CALEB GOULD ####[facility] [address] [place], [place] [address]Dr. Jesus White Bacteria identified Cx Nom (U) NOT INDICATED Normal [facility] Comment on above: Performed By: #### CALEB GOULD ####[facility] [address] [place], [place] [address]Dr. Jesus White CAST NONE SEEN Normal NONE SEEN [facility] Comment on above: Performed By: #### CALEB GOULD ####[facility] [address] [place], [place] [address]Dr. Jesus White Crystals LM Nom (Urine sed) NONE SEEN Normal NONE SEEN [facility] Comment on above: Performed By: #### Júnior BARNES UMICRO ####[facility] [address] [address]Dr. Jesus White Epithelial cells LM Ql (Urine sed) RARE Normal NONE SEEN /RARE [facility] Comment on above: Performed By: #### E RUR UMICRO ####[facility] [address] [address]Dr. Jesus White MUCOUS NONE SEEN Normal NONE SEEN [facility] Comment on above: Performed By: #### E MOLLY UMICRO ####[facility] [address] [address]Dr. Jesus White RBC NONE SEEN Abnormal 0-2 [place] Comment on above: Performed By: #### Júnior BARNES UMICRO ####[facility] [address] [address]Dr. Jesus White WBC NONE SEEN Normal NONE SEEN [facility] Comment on above: Performed By: #### E RUPaul UMICRO ####[facility] [address] [address]Dr. Jesus White US CRYSTAL DOP LEG LTon [...] VARSHA BARNARD Date: 2022-01-01 08:[address] [facility] Vital Signs Date Time Vital Sign Value Performing Mayank hooker 04-23-2024 14:58-0500 Body height 172.7 cm Mignon Rodriguez JUKEBOX OPERATOR Work Phone: [facility] 04-23-2024 14:58-0500 Body mass index (BMI) [Ratio] 35.58 kg/m2 Mignon Rodriguez JUKEBOX OPERATOR Work Phone: [facility] 04-23-2024 14:58-0500 Body temperature 97.3 [degF] Mignon Rodriguez JUKEBOX OPERATOR Work Phone: [facility] 04-23-2024 14:58-0500 Body weight 106.14 kg Mignon Rodriguez JUKEBOX OPERATOR Work Phone: [facility] 04-23-2024 14:58-0500 Diastolic blood pressure 60 mm[Hg] Mignon Rodriguez JUKEBOX OPERATOR Work Phone: [facility] 04-23-2024 14:58-0500 Heart rate 62 /min Mignon Rodriguez JUKEBOX OPERATOR Work Phone: [facility] 04-23-2024 14:58-0500 Respiratory rate 22 /min Mignon Rodriguez JUKEBOX OPERATOR Work Phone: [facility] 04-23-2024 14:58-0500 SaO2% (BldA) [Mass fraction] 97 % Mignon Rodriguez JUKEBOX OPERATOR Work Phone: [facility] 04-23-2024 14:58-0500 Systolic blood pressure 130 mm[Hg] Mignon Rodriguez JUKEBOX OPERATOR Work Phone: [facility] 03-19-2024 08:59-0400 Body mass index (BMI) [Ratio] 33.06 kg/m2 Mignon Rodriguez JUKEBOX OPERATOR Work Phone: [facility] 03-19-2024 08:59-0400 Body temperature 97.3 [degF] Mignon Rodriguez JUKEBOX OPERATOR Work Phone: [facility] 03-19-2024 08:59-0400 Body weight 104.51 kg Mignon Burrowspatrick JUKEBOX OPERATOR Work Phone: [facility] 03-19-2024 08:59-0400 Diastolic blood pressure 80 mm[Hg] Mignon Rodriguez JUKEBOX OPERATOR Work Phone: [facility] 03-19-2024 08:59-0400 Heart rate 63 /min Mignon Rodriguez JUKEBOX OPERATOR Work Phone: [facility] 03-19-2024 08:59-0400 SaO2% (BldA) [Mass fraction] 98 % Mignon Choprazpatrick JUKEBOX OPERATOR Work Phone: [facility] 03-19-2024 08:59-0400 Systolic blood pressure 162 mm[Hg] Mignon Rodriguez JUKEBOX OPERATOR Work Phone: [facility] 01-17-2024 08:08-0400 Blood Pressure Location [email or web address] 01-17-2024 08:08-0400 Diastolic blood pressure 84 mm[Hg] Carlos COOK [facility] 01-17-2024 08:08-0400 Heart rate 62 /min [facility] [email or web address] [facility] 01-17-2024 08:08-0400 Respiratory rate 19 /min [facility] [email or web address] 01-17-2024 08:08-0400 Systolic blood pressure 151 mm[Hg] Carlos COOK [facility] 10-17-2023 10:02-0400 Blood Pressure Location [email or web address] 10-17-2023 10:02-0400 Diastolic blood pressure 66 mm[Hg] Carlos HOLLINS [facility] 10-17-2023 10:02-0400 Heart rate 66 /min Carlos HOLLINS [facility] 10-17-2023 10:02-0400 Respiratory rate 18 /min Carlos HOLLINS [facility] 10-17-2023 10:02-0400 Systolic blood pressure 120 mm[Hg] Carlos HOLLINS [facility] 10-13-2023 13:17-0400 Body height 177.8 cm [facility] 10-13-2023 13:17-0400 Body mass index (BMI) [Ratio] 32.5 kg/m2 [facility] 10-13-2023 13:17-0400 Body temperature 97 [degF] [facility] 10-13-2023 13:17-0400 Body weight 102.96 kg [facility] 10-13-2023 13:17-0400 Diastolic blood pressure 70 mm[Hg] [facility] 10-13-2023 13:17-0400 Heart rate 74 /min [facility] 10-13-2023 13:17-0400 Respiratory rate 20 /min [facility] 10-13-2023 13:17-0400 SaO2% (BldA) [Mass fraction] 97 % [facility] 10-13-2023 13:17-0400 Systolic blood pressure 120 mm[Hg] [facility] 03-17-2023 15:20-0400 Body height 177.8 cm Jose Julien Other [facility] [employer] Other 03-17-2023 15:20-0400 Body mass index (BMI) [Ratio] 31.96 kg/m2 Jose Julien Other [employer] Other 03-17-2023 15:20-0400 Body temperature 96.9 [degF] Jose Julien Other [employer] Other 03-17-2023 15:20-0400 Body weight 101.06 kg Jose Julien Other [employer] Other 03-17-2023 15:20-0400 Diastolic blood pressure 73 mm[Hg] Jose Julien Other [employer] Other 03-17-2023 15:20-0400 Respiratory rate 18 /min Jose Julien Other [employer] Other 03-17-2023 15:20-0400 SaO2% (BldA) [Mass fraction] 98 % Jose Julien Other [employer] Other 03-17-2023 15:20-0400 Systolic blood pressure 134 mm[Hg] Jose Julien Other [employer] Other 09-30-2022 11:20-0400 Body height 177.8 cm Jose Julien Other [employer] Other 09-30-2022 11:20-0400 Body mass index (BMI) [Ratio] 33.6 kg/m2 Jose Julien Other [employer] Other 09-30-2022 11:20-0400 Body temperature 96.3 [degF] Jose Julien Other [employer] Other 09-30-2022 11:20-0400 Body weight 106.23 kg Jose Julien Other [employer] Other 09-30-2022 11:20-0400 Diastolic blood pressure 64 mm[Hg] Jose Julien Other [employer] Other 09-30-2022 11:20-0400 Respiratory rate 18 /min Jose Julien Other [employer] Other 09-30-2022 11:20-0400 SaO2% (BldA) [Mass fraction] 99 % Jose Julien Other [employer] Other 09-30-2022 11:20-0400 Systolic blood pressure 138 mm[Hg] Jose Julien Other [employer] Other 03-22-2022 14:00-0400 Body height 177.8 cm Jose Julien Other [employer] Other 03-22-2022 14:00-0400 Body mass index (BMI) [Ratio] 33.14 kg/m2 Jose Julien Other [employer] Other 03-22-2022 14:00-0400 Body temperature 95.9 [degF] Jose Julien Other [employer] Other 03-22-2022 14:00-0400 Body weight 104.78 kg Jose Julien Other [employer] Other 03-22-2022 14:00-0400 Diastolic blood pressure 70 mm[Hg] Jose Julien Other [employer] Other 03-22-2022 14:00-0400 Respiratory rate 18 /min Jose Julien Other [employer] Other 03-22-2022 14:00-0400 SaO2% (BldA) [Mass fraction] 97 % Jose Julien Other [employer] Other 03-22-2022 14:00-0400 Systolic blood pressure 119 mm[Hg] Jose Julien Other [employer] Other 06-18-2021 11:40-0500 Body height 177.8 cm Jose Julien Other [employer] Other 06-18-2021 11:40-0500 Body mass index (BMI) [Ratio] 37.22 kg/m2 Jose Julien Other [employer] Other 06-18-2021 11:40-0500 Body temperature 95.9 [degF] Jose Julien Other [employer] Other 06-18-2021 11:40-0500 Body weight 117.66 kg Jose Julien Other [employer] Other 06-18-2021 11:40-0500 Diastolic blood pressure 70 mm[Hg] Jose Julien Other [employer] Other 06-18-2021 11:40-0500 Respiratory rate 18 /min Jose Julien Other [employer] Other 06-18-2021 11:40-0500 SaO2% (BldA) [Mass fraction] 97 % Jose Julien Other [employer] Other 06-18-2021 11:40-0500 Systolic blood pressure 124 mm[Hg] Jose Victoria Other [employer] Other Encounters Encounter Date Encounter Type Care Provider Facility Start: 05-22-2024 ambulatory Carlos HOLLINS Facility :[facility] Start: 04-23-2024 End: 04-23-2024 Office outpatient visit 15 minutes Mignon Rodriguez JUKEBOX OPERATOR Work Phone: [facility] Comment on above: Bronchitis (Primary Dx); Viral upper respiratory tract infection Start: 04-23-2024 End: 04-23-2024 ambulatory MIGNON RODRIGUEZ Not Available Start: 04-23-2024 End: 04-23-2024 Bamboo flowsheet Mignon Rodriguez JUKEBOX OPERATOR Work Phone: [facility] Start: 04-23-2024 End: 04-23-2024 Bamboo flowsheet Mignon Rodriguez JUKEBOX OPERATOR Work Phone: [facility] Start: 04-18-2024 End: 04-18-2024 Clinisync Result Encounter Generic External Data Provider [facility] Unsolicited Start: 04-18-2024 End: 04-18-2024 Clinisync Result Encounter Generic External Data Provider [facility] Unsolicited Start: 03-27-2024 End: 03-27-2024 Refill Mignon Rodriguez JUKEBOX OPERATOR Work Phone: [facility] Comment on above: Hyperlipidemia, unsp ecified (CMS/HCC); Essential (primary) hypertension (CMS/HCC); Hyperuricemia; Gastroesophageal reflux disease with esophagitis without hemorrhage Start: 03-20-2024 End: 03-20-2024 Orders Only Mignon Rodriguez JUKEBOX OPERATOR Work Phone: [facility] Comment on above: Acute bacterial sinu sitis (Primary Dx) Start: 03-19-2024 End: 03-19-2024 Bamboo flowsheet Mignon Smithk JUKEBOX OPERATOR Work Phone: [facility] Start: 03-19-2024 End: 03-19-2024 Bamboo flowsheet Mignon Burrowspatrick JUKEBOX OPERATOR Work Phone: [facility] Start: 03-19-2024 End: 03-19-2024 Clinisync Result Encounter Mignon Jennifer JUKEBOX OPERATOR Work Phone: [facility] Unsolicited Start: 03-19-2024 End: 03-19-2024 Office outpatient visit 15 minutes Mignon Jennifer JUKEBOX OPERATOR Work Phone: [facility] Comment on above: Viral upper respirat ory tract infection (Primary Dx); Acute right ankle pain; Centrilobular emphysema (CMS/HCC); Ankle injury, right, initial encounter Start: 03-19-2024 End: 03-19-2024 Refill Mignon Rodriguez JUKEBOX OPERATOR Work Phone: [facility] Comment on above: Hyperuricemia Start: 01-17-2024 End: 01-17-2024 ambulatory Carlos HOLLINS Facility:[facility] Start: 01-17-2024 End: 01-17-2024 Patient encounter procedure Carlos HOLLINS [facility] Start: 11-24-2023 End: 11-24-2023 ambulatory SHAIKH ALDAIR Not Available Start: 10-17-2023 End: 10-17-2023 ambulatory Carlos HOLLINS Facility:[facility] [place] Start: 10-17-2023 End: 10-17-2023 Patient encounter procedure Carlos HOLLINS [facility] Start: 10-13-2023 End: 10-13-2023 ambulatory [facility] Work Phone: Start: 10-13-2023 End: 10-13-2023 Patient encounter procedure [facility] Fred Work Phone: Start: 10-04-2023 Non-patient / Non-visit [facility] [employer] Work Phone: Start: 09-28-2023 End: 09-28-2023 ambulatory PATEL FAWWAD Not Available Start: 08-23-2023 End: 08-23-2023 ambulatory PATEL FAWWAD Not Available Start: 05-10-2023 Patient encounter procedure Mignon Rodriguez JUKEBOX OPERATOR Work Phone: [facility] Start: 05-10-2023 End: 05-10-2023 ambulatory PATEL FAWWAD Not Available Start: 03-17-2023 End: 03-17-2023 ambulatory Jose Julien Other [place] [employer] Other Start: 03-17-2023 Office outpatient vi sit 15 minutes Jose Julien [facility] Start: 10-11-2022 End: 10-12-[address] CARLOS HOLLINS Facility:[facility] Start: 09-30-2022 End: 09-30-2022 ambulatory Jose Julien Other [place] [employer] Other Start: 09-30-2022 Office outpatient vi sit 15 minutes Jose Julien [facility] Start: 08-23-2022 End: 08-24-2022 ambulatory PATEL H FAWWAD Facility:[facility] Start: 07-05-2022 End: 07-06-2022 ambulatory RUKHSANA SAMSA . Facility:[facility] Start: 04-08-2022 End: 04-08-[address] COLTEN NUNO . Facility:[facility] Start: 03-24-2022 End: 03-25-2022 ambulatory RUKHSANA SAMSA . Facility:[facility] Start: 03-22-2022 End: 03-22-2022 ambulatory Jose Julien Other [place] [employer] Other Start: 03-22-2022 Office outpatient vi sit 25 minutes Jose Julien [facility] Start: 02-16-2022 End: 02-17-2022 ambulatory SHAIKH Nancy GAGNON Facility:[facility] Start: 01-01-2022 End: 01-01-[address] LUNA DUFFY . Facility:[facility] Start: 06-21-2021 End: 06-21-2021 ambulatory Jose Julien Other [employer] Other Start: 06-21-2021 Telephone encounter Jose Julien [facility] Start: 06-18-2021 End: 06-18-2021 ambulatory Jose Julien Other [employer] Other Start: 06-18-2021 Office outpatient vi sit 25 minutes Jose Julien [facility] Procedures Date Procedure Procedure Detail Performing Clinician Start: 04-18-2024 MHPT PSA, DIAGNOSTIC Ge neric External Data Provider Start: 03-19-2024 SARS-COV-2 AG* Mignon Rodriguez JUKEBOX OPERATOR Work Phone: Start: 03-19-2024 [facility] INFLUENZA A AND B AG Mignon Burrowspatrick JUKEBOX OPERATOR Work Phone: Start: 10-11-[address] WINIFRED HOLLINS Comment on above: Performed By: #### P SAD ####[place] [id number] White Start: 03-24-2011 Brachytherapy Carlos PIZARRO Start: 06-06-2000 Excision of left kidney Carlos HOLLINS Cataract (disorder) Carlos HOLLINS Extraction of wisdom tooth G kerry HOLLINS History of hernia repair Eri HOLLINS Plan of Treatment Date Care Activity Detail Author Start: 09-22-2026 Screening for malign ant neoplasm of colon [facility] Start: 06-19-2024 End: 06-19-2024 Patient encounter procedure 06/19/2024 9:30 AM EST Office Visit [facility] [address] [place] [address] Mignon Rodriguez, JUKEBOX OPERATOR [address] [place] [address] [facility] Start: 05-10-2024 Medicare Annual Wellness (AWV) Medicare Annual Wellness (AWV) [facility] Start: 04-23-2024 End: 04-23-2024 Patient encounter procedure 04/23/2024 3:00 PM EST Office Visit [facility] [address] [place] [phone] Mignon Rodriguez, JUKEBOX OPERATOR [address] [place] [address] Arrived [facility] Comment on above: Arrived Start: 03-19-2024 End: 03-19-2025 COVID-19 / FLU A/B / RSV PCR ([facility] COVID-19 / FLU A/B / RSV PCR ([facility]) Lab Routine Viral upper respiratory tract infection Expected: 03/19/2024 (Approximate), Expires: 03/19/2025 [facility] Work Phone: Comment on above: Expected: 03/19/2024 (Approximate), Expires: 03/19/2025 Start: 03-19-2024 End: 03-19-2024 Patient encounter procedure 03/19/2024 9:00 AM EDT Office Visit [facility] [address] [place] [phone] Mignon Rodriguez, JUKEBOX OPERATOR [address] [place] [phone] Arrived [facility] Comment on above: Arrived Start: 02-05-2024 Influenza vaccination Influenza Vacc ine (#1) [facility] Start: 02-21-1961 Pneumococcal Vaccine : 65+ Years (1 of 2 - PCV) Pneumococcal Vaccine: 65+ Years (1 of 2 - PCV) [facility] Start: 1955 Screening for malign ant neoplasm of colon [facility] Renal function 2000 panel - Serum or Plasma [facility] XR Ankle - right 3 Views XR ankle 3+ views right Imaging Routine Acute right ankle pain Ordered: 03/19/2024 [facility] Comment on above: Ordered: 03/19/2024 [facility] Immunizations Immunization Date Immunization Notes Care Provider Blake blair 03-17-2023 influenza virus vaccine, unspecified formulation Carlos HOLLINS [facility] 03-17-2023 Influenza, High-dose Seasonal, Quadrivalent, Preservative Free Mignon Rodriguez JUKEBOX OPERATOR Work Phone: [facility] 03-27-2022 influenza virus vaccine, unspecified formulation [email or web address] 03-27-2022 Influenza, High-dose Seasonal, Quadrivalent, Preservative Free Mignon Rodriguez JUKEBOX OPERATOR Work Phone: [facility] 05-27-2021 SARS-CoV-2 (COVID-19 ) [id number] vaccine [email or web address] Comment on above: Result Comment: [facility] 03-26-2021 influenza virus vaccine, unspecified formulation [facility] [email or web address] 03-26-2021 Influenza, High-dose Seasonal, Quadrivalent, Preservative Free Mignon Rodriguez JUKEBOX OPERATOR Work Phone: [facility] 11-21-2020 SARS-CoV-2 (COVID-19 ) [id number] vaccine [facility]CSR[facility] 10-16-2020 SARS-CoV-2 (COVID-19 ) [id number] vaccine Carlos HOLLINS [facility] 02-05-2020 influenza virus vaccine, unspecified formulation Carlos HOLLINS [facility] 05-14-2014 influenza virus vaccine, unspecified formulation Carlos HOLLINS [facility] 05-14-2014 influenza, seasonal, injectable Mignon Rodriguez NP Work Phone: [facility] Payers Date Payer Category Payer Medicaid [id number] 2012 Medicaid [employer] [id number] 1958 Medicare [id number] 1955 Unknown [id number] 2.16.840.1.389848.3.579.2.593 1956 Unknown [id number] 2.16.840.1.164853.3.579.2.593 1956 Unknown [id number] 2.16.840.1.540211.3.579.2.593 1956 Unknown [id number] 2.16.840.1.659009.3.579.2.593 1956 Unknown [id number] 2.16.840.1.862193.3.579.2.593 1956 Unknown [id number] 2.16.840.1.099274.3.579.2.593 1956 Unknown [id number] 2.16.840.1.504117.3.579.2.593 1956 Unknown [id number] 2.16.840.1.388937.3.579.2.593 1956 Unknown [id number] 2.16.840.1.775248.3.579.2.727 1956 Unknown [id number] 2.16.840.1.182996.3.579.2.727 1956 Unknown [id number] 2.16.840.1.303803.3.579.2.727 1956 Unknown [id number] 2.16.840.1.748071.3.579.2.1259 1956 Unknown [id number] 2.16.840.1.001853.3.579.2.1259 1956 Unknown [id number] 2.16.840.1.232417.3.579.2.1259 1956 Unknown [id number] 2.16.840.1.301946.3.579.2.1259 1956 Unknown [id number] 2.16.840.1.708561.3.579.2.1259 1956 Unknown [id number] 2.16.840.1.739942.3.579.2.1259 Medicaid [employer] [id number] Self-pay Self Pay [id number] Unknown [employer] GHAZALA [id number] Social History Date Type Detail Facility Unknown if ever smoked [employer] Other Start: 05-10-2023 End: 11-24-2023 Sex Assigned At [facility] Start: 10-13-2023 [facility] Start: 1955 Sex Assigned At Male [facility] Start: 10-17-2023 End: 01-17-2024 Tobacco smoking status Light tobacco smoker (finding) [facility] Tobacco smoking status Never [facility] Start: 11-24-2023 Tobacco smoking stat us N[facility] Smokes tobacco daily [facility] History of [...] To some extent [facility] (I/We) worried nisha er (my/our) food would run out before (I/we) got money to buy more. Never true [facility] Start: 05-06-2023 Alcohol Comment caffene: 1-2 c ups per day [facility] Start: 1955 Sex assigned at Not on file [facility] Functional Status Date Assessment Result Facility 01-17-2024 Functional Status N/A [facility] 10-17-2023 Functional Status N/A [facility] Clinical Notes 06-18-2021 to 04-24-2024 Mignon Rodriguez NP - 04/24/2024 1:01 PM Chai Rodriguez NP - 04/23/2024 3:00 PM ESTPatient Flaco Rodriguez NP - 03/19/2024 10:45 AM EDTPatient Instructions Note Date & Type Note Facility 04-24-2024 History of Presen t illness Narrative Associated Problem(s): URI (upper respiratory infection) Was seen in ER on 04/12/2024 for Upper Respiratory Infection symptoms. Was discharged home on Zpack X5 days, Robitussin AC and Zofran. CXR done-No acute findings. Reports he is starting to feel better. Still current smoker, states he is not ready to quit. Symptoms that still persist are productive cough, sneezing, watery eyes. Harsh cough still persists. Given patient's hx of COPD prescribed prednisone 20mg X5 days. Pt advised to report to ER with chest pain, worsening shortness of breath, dizziness. Pt verbalized understanding. Images from the original note were not included. Subjective Patient ID: Abbey Mustafa is a 69 y.o. male who presents for Follow-up ([facility] er f/up URI). HPI Was seen in ER on 04/12/2024 for Upper Respiratory Infection symptoms. Was discharged home on Zpack X5 days, Robitussin AC and Zofran. CXR done-No acute findings. Reports he is starting to feel better. Still current smoker, states he is not ready to quit. Symptoms that still persist are productive cough, sneezing, watery eyes, Doug: Shortness of breath Fever N/V Diarrhea Review of Systems Constitutional: Negative for activity change, appetite change, chills, diaphoresis, fatigue, fever and unexpected weight change. HENT: Positive for rhinorrhea and sneezing. Negative for congestion, ear pain, sinus pressure, sinus pain, sore throat, trouble swallowing and voice change. Eyes: Negative for visual disturbance. Respiratory: Positive for cough. Negative for chest tightness, shortness of breath and wheezing. Cardiovascular: Negative for chest pain, palpitations and leg swelling. Gastrointestinal: Negative for abdominal distention, abdominal pain, blood in stool, constipation, diarrhea and vomiting. Genitourinary: Negative for decreased urine volume, dysuria, flank pain, frequency, hematuria and urgency. Musculoskeletal: Negative for arthralgias, gait problem, joint swelling and myalgias. Skin: Negative for rash. Neurological: Negative for [...] normal. Left Ear: Tympanic membrane normal. Nose: Nose normal. Mouth/Throat: Mouth: Mucous membranes are moist. Pharynx: [...] motion. Cervical back: Normal range of motion. Skin: General: Skin is warm and dry. Capillary Refill: Capillary refill takes less than 2 seconds. Neurological: General: No focal deficit present. Mental Status: He is alert and oriented to person, place, and time. Psychiatric: Mood and Affect: Mood normal. Behavior: Behavior normal. Assessment/Plan Problem List Items Addressed This Visit URI (upper respiratory infection) Was seen in ER on 04/12/2024 for Upper Respiratory Infection symptoms. Was discharged home on Zpack X5 days, Robitussin AC and Zofran. CXR done-No acute findings. Reports he is starting to feel better. Still current smoker, states he is not ready to quit. Symptoms that still persist are productive cough, sneezing, watery eyes. Harsh cough still persists. Given patient's hx of COPD prescribed prednisone 20mg X5 days. Pt advised to report to ER with chest pain, worsening shortness of breath, dizziness. Pt verbalized understanding. Relevant Medications fluticasone (Flonase) 50 MCG/ACT nasal spray Bronchitis - Primary Relevant Medications predniSONE (Deltasone) 20 MG tablet documented in this encounter [facility] 04-23-2024 Instructions Mignon Rodriguez NP - 04/23/2024 3:00 PM EST Take Steroids as directed. Continue to rest, drink plenty of fluids, and eat a well-balance diet. Resume normal activity. AVOID anything strenuous until you are feeling better. Flonase nasal spray 1-2 squirts in each nostril at night. Tylenol for fever and body aches. Vitamins: Vitamin C 1,000mg per day. Vitamin D3 2,000 international unit(s) per day.Zinc 25mg per day. WORSENING SYMPTOMS, CHEST PAIN, OR SHORTNESS OF BREATH, GO TO THE NEAREST EMERGENCY DEPARTMENT. documented in this encounter [facility] 03-19-2024 History of Presen t illness Narrative [...] (Injury 2 weeks ago with ankle ). [facility] Pulmonology- Dr. Rojas Cardiology- Dr. Victoria Urology- [...] COPD (chronic obstructive pulmonary disease) with emphysema ([facility]/HCC) URI (upper respiratory infection) - Primary Sinus congestion, runny nose, body aches X10 days. Discussed likely viral etiology. Ordered COVID/Flu/RSV panel. Recommended rest, fluids, OTC management for now. Relevant Orders COVID-19 / FLU A/B / RSV PCR ([facility]) Ankle injury, right, initial encounter Rolled ankle;e 2 weeks ago. Did not receive tx or imaging. Reports swelling and tenderness still Is able to bear weight and ambulate, but does report associated pain. Selling noted on observation. No discoloration observed. Xray ankle ordered. Other Visit Diagnoses Acute right ankle pain Relevant Orders XR ankle 3+ views right documented in this encounter [facility] 03-19-2024 Instructions Mignon Rodriguez NP - 03/19/2024 [...] NEAREST EMERGENCY DEPARTMENT. documented in this encounter [facility] 01-17-2024 Hospital Discharg e instructions Patient Education [...] if anything looks unusual. Men with a dgawct-vbhl-cpnooz risk for skin cancer may want to see a skin lap bonder (manager water) for an annual body check. What are the benefits of screening? Cancer screening is done to look for cancer in the very early stages, before it spreads and becomes harder to treat and before you would start to notice symptoms. Finding cancer early improves the chances of successful treatment. It may save your life. Where to find more information [place] [employer]: www.cancer.org Centers for Disease Control and Prevention: www.cdc.gov National Cancer [place]: www.cancer.gov Contact a health care provider if: [...] provider. Document Revised: 10/19/2021 Document Reviewed: 04/18/2020 [employer] Patient Education 2022 [employer]. Follow Up Care 10/17/2023 10:47:32 With:GURVINDER HENDRICKSON, Carlos Day, URL Address: [address] [place] [address]- When: Unknown [facility] 01-17-2024 Note Patient Education Oncology Cancer [...] if anything looks unusual. Men with a dhxdni-qrcl-jdidrq risk for skin cancer may want to see a skin lap bonder (manager water) for an annual body check. What are the benefits of screening? Cancer screening is done to look for cancer in the very early stages, before it spreads and becomes harder to treat and before you would start to notice symptoms. Finding cancer early improves the chances of success (more content not included)... [facility] 10-17-2023 Hospital Discharg e instructions Patient [...] similar to normal prostate cells (well differentiated). Bejou 7: This indicates that the cancer cells [...] stress of having cancer. General instructions Take knok-ged-ltrhgen and prescription medicines only as told by your health care provider. If you have to go to the hospital, notify your cancer specialist (oncologist). Keep all follow-up visits. This is important. Where to find more information [employer]: www.cancer.org [place] [employer] of Clinical Oncology: www.cancer.net National Cancer [place]: www.cancer.gov Contact a health care provider if: [...] provider. Document Revised: 08/19/2021 Document Reviewed: 08/19/2021 [employer] Patient Education 2022 [employer]. Follow Up Care 10/15/2022 10:10:00 With:GURVINDER HENDRICKSON, Carlos Day, URL Address: [facility] [place] [address]- When: Unknown [facility] 03-17-2023 Evaluation note Encounter Date Diagnosis Assessment [...] Monitor LFTs and lipid profile with PCP. [employer] Other 04-27-2023 Evaluation note* Encounter Date Diagnosis [...] have gout. I have prescribed oral Allopurinol [employer] Other 10-17-2022 Evaluation note* Encounter Date Diagnosis [...] have gout. I have prescribed oral Allopurinol [employer] Other 07-29-2022 NotePROCEDURE: XR FEMUR LT HISTORY: Pain within medial left thigh; no known injury COMPARISON: None. FINDINGS: BONES:No fracture, acute abnormality, or significant arthropathy. SOFT TISSUES:Moderate atherosclerotic disease. EFFUSION:None visible. OTHER: Prior radioactive seeding of the prostate. IMPRESSION: 1. No acute bone abnormality or significant degenerative joint disease. 2. No specific findings to account for patient's symptoms. Electronically authenticated by: LUCAS GOLDTSEIN Date: 2022-01-01 08:35[place]01-13-2022 Evaluation note* Encounter Date Diagnosis Assessment Notes [...] Q60.0) He has a solitary right kidney. [employer] Other Evaluation + Plan note Future Appointments Appointment Date:01/16/2024 09:45:00 AM Scheduled Provider:Carlos HOLLINS MD Location:[facility] Appointment Type:URO Office Visit Diagnostic Tests Pending * PSA Total 11/05/23 [facility] Evaluation + Plan note Future Appointments Appointment Date:05/22/2024 09:30:00 AM Scheduled Provider:Carlos HOLLINS MD Location:[facility] Appointment Type:URO Office Visit Diagnostic Tests Pending * PSA Total 01/17/24 [facility] Evaluation noteNo [employer] Other evaluation note* Diagnosis Onset Date Resolution Status Anemia of renal disease acut e CKD (chronic kidney disease) stage 3, GFR 30-59 ml/min acute Hyperlipidemia acute [id number] acute Hyperuricemia acute Hypomagnesemia acute Secondary hyperparathyroidism acute Solitary kidney, acquired ac [facility] Work Phone: [email or web address] note* Diagnosis Primary hypertension (CMS/HCC)- Primary Unspecified [...] Acute sinusitis, unspecified [facility] [...] esophagitis without hemorrhage documented in this encounter [facility] HealthcareEvaluation note* Diagnosis Primary hypertension (CMS/HCC)- Primary [...] emphysema (CMS/HCC) Ankle injury, right, initial encounter Bronchitis- Primary Bronchitis, not specified as acute or chronic Viral upper respiratory tract infection Acute upper respiratory infections of unspecified site documented in this encounter [facility] HealthcareHistory general Narrative - ReportedNort 5 [employer] Other History general Narrative - Reported* Type [...] BLOOD PRESSURE WAS 60/40 , DEHYDRATION 04/2021 [employer] Other History general Narrative - Reported* Type [...] BLOOD PRESSURE WAS 60/40 , DEHYDRATION 04/2021 [employer] Other History general Narrative - Reported* Type [...] BLOOD PRESSURE WAS 60/40 , DEHYDRATION 04/2021 [employer] Other Hospital course Narrative No data available for this section [facility] Progress note No data available for this section [facility] Merkle Summary Purpose Family History Relationship Condition Age [...] disease) stage 3, GFR 30-59 ml/min Hyperlipidemia [id number] Hyperuricemia Hypomagnesemia Secondary hyperparathyroidism Solitary kidney, acquired Additional Source Comments REASON FOR VISIT (unrecogniz ed section and content) Reason Comments Follow-up [facility] er f/up URI Reason Onset Date Comments Med Refill 03/27/2024 Reason Onset Date Comments Med Refill 03/19/2024 Reason Comments Nasal Congestion Ankle Pain Injury 2 weeks ago w ith ankle CKD and HTNCKD (unrecognized sect ion and content) No Status Records FoundNo Status Records FoundNo Status Records Found INFORMATION SOURCE (unrecogn ized section and content) DATE CREATED AUTHOR 11/12/2022 [facility] DATE CREATED AUTHOR AUTHOR'S ORGANIZ ATION 01/19/2024 [place] [facility] DATE CREATED AUTHOR AUTHOR'S ORGANIZ ATION 04/25/2024 [facility] Care Teams (unrecognized sec tion and content) Team Status: Active Member Role Status Dates Shaikh Aldair MD Primary Care Provider Active Team Status: Active Member Role Status Dates Jose Victoria MD Attending Provider Active Start : October 04, 2023 Team Status: Inactive Member Role Status Dates Jose Victoria MD Attending Provider Active Start : October 13, 2023 End: October 13, 2023 Shaikh Aldair MD Primary Care Provider Active Start: October 13, 2023 End: October 13, 2023 Corporate Sales Manager Relationship Specialty Start Date End Date Shaikh Gagnon MD [address] [place] [address] PCP - [employer] 06/06/23 Rm Rainey MD [address] [place] [phone] PCP - General Family Medicine 01/16/24 Mignon Rodriguez NP [address] [place] [address] Nurse Practitioner Family Medicine 01/16/24 Corporate Sales Manager Relationship Specialty Start Date End Date Shaikh Gagnon MD [address] [place] [phone] PCP - [employer] 06/06/23 Rm Rainey MD [address] [place] [address] PCP - General Family Medicine 01/16/24 Mignon Rodriguez NP [address] [place] [address] Nurse Practitioner Family Medicine 01/16/24 Corporate Sales Manager Relationship Specialty Start Date End Date Shaikh Gagnon MD [address] [place] [phone] PCP - [employer] 06/06/23 Rm Rainey MD [address] [place] [phone] PCP - General Family Medicine 01/16/24 Mignon Rodriguez JUKEBOX OPERATOR [address] [place] [address] Nurse Practitioner Family Medicine 01/16/24 Corporate Sales Manager Relationship Specialty Start Date End Date Shaikh Gagnon MD [address] [place] [phone] PCP - [employer] 06/06/23 Rm Rainey MD [address] [place] [phone] PCP - General Family Medicine 01/16/24 Mignon Rodriguez NP [address] [place] [address] Nurse Practitioner Family Medicine 01/16/24 Corporate Sales Manager Relationship Specialty Start Date End Date Shaikh Gagnon MD [address] [place] [phone] PCP - [employer] 06/06/23 Rm Rainey MD [address] [place] [address] PCP - General Family Medicine 01/16/24 Mignon Rodriguez NP [address] [place] [address] Nurse Practitioner Family Medicine 01/16/24 Corporate Sales Manager Relationship Specialty Start Date End Date Shaikh Gagnon MD [address] [place] [phone] PCP - [employer] 06/06/23 Unallocated, Jyoti Pink MD [address] [place] [address] PCP - General Family Medicine 03/20/24 Mignon Rodriguez NP [address] [place] [address] Nurse Practitioner Family Medicine 01/16/24 Corporate Sales Manager Relationship Specialty Start Date End Date Shaikh Gagnon MD [address] [place] [phone] PCP - [employer] 06/06/23 Rm Rainey MD [address] [place] [phone] PCP - General Family Medicine 04/05/24 Mignon Rodriguez, JUKEBOX OPERATOR [address] [place] [address] Nurse Practitioner Family Medicine 01/16/24 Corporate Sales Manager Relationship Specialty Start Date End Date Shaikh Gagnon MD [address] [place] [phone] PCP - [employer] 06/06/23 Rm Rainey MD [address] [place] [phone] PCP - General Family Medicine 04/05/24 Mignon Rodriguez, JUKEBOX OPERATOR [address] [place] [address] Nurse Practitioner Family Medicine 01/16/24 Corporate Sales Manager Relationship Specialty Start Date End Date Shaikh Gagnon MD [address] [place] [phone] PCP - [employer] 06/06/23 Rm Rainey MD [address] [place] [phone] PCP - General Family Medicine 04/05/24 Mignon Rodriguez NP [address] [place], [place] [address] [address] Nurse Practitioner Family Medicine 01/16/24 Goals (unrecognized [...] BE BASED ON THE PRIMARY CLINICAL RECORDS. [employer] provides no warranty or guarantee of the accuracy or completeness of information in this document.
[2024-05-07 22:33] LABS: Basophils Absolute Auto 0.1 10^3/uL (0.0-0.1); Basophils Percent Auto 0.4 % (0.2-2.0); Eosinophils Absolute Auto 0.1 10^3/uL (0.0-0.7); Eosinophils Percent Auto 0.5 % (0.9-7.0); Hematocrit 41.4 % (42.0-54.0); Hemoglobin 13.7 g/dL (14.0-18.0); Immature Granulocytes Abs Auto 0.13 10^3/uL (0.00-0.03); Immature Granulocytes Pct Auto 0.9 % (0.0-0.5); Lymphocytes Absolute Auto 2.6 10^3/uL (1.2-3.8); Lymphocytes Percent Auto 18.4 % (20.5-60.0); Mean Corpuscular HGB Conc 33.1 g/dL (29.9-35.2); Mean Corpuscular Hemoglobin 32.6 pg (25.9-34.0); Mean Corpuscular Volume 98.6 fL (80.0-94.0); Mean Platelet Volume 10.1 fL (9.5-13.5); Monocytes Absolute Auto 0.4 10^3/uL (0.3-0.8); Neutrophils Percent Auto 76.8 % (43.0-75.0); Platelet Count 216 10^3/uL (150-450); Red Cell Distribution Width 14.7 % (11.0-15.0); White Blood Count 14.3 10^3/uL (4.0-11.0)
[2024-05-07] MEDS: 0.9 % SODIUM CHLORIDE 1,000 ML 1000 ML IV (22:44)
[2024-05-07 22:49] LABS: INR 0.97; Partial Thromboplastin Time 24.2 sec (22.3-36.2); Prothrombin Time 10.3 sec (9.0-11.6)
[2024-05-07 22:50] LABS: Alanine Aminotransferase 40 U/L (16-63); Albumin Globulin Ratio 0.9; Albumin Level 3.5 g/dL (3.4-5.0); Alkaline Phosphatase 55 U/L (46-116); Anion Gap 17.2; Aspartate Amino Transferase 32 U/L (15-37); BUN Creatinine Ratio 11.9; Bilirubin Total 0.4 mg/dL (0.2-1.0); Calcium 9.3 mg/dL (8.5-10.1); Carbon Dioxide 23.5 mmol/L (21.0-32.0); Chloride 104 mmol/L (98-107); Estimated GFR (African America 35 (>=60 mL/min/1.73m^2); Estimated GFR (Non-African Ame 29 (>=60 mL/min/1.73m^2); Globulin 3.8 g/dL; Glucose 147 mg/dL (74-106); Potassium 4.7 mmol/L (3.5-5.1); Sodium 140 mmol/L (136-145); Total Protein 7.3 g/dL (6.4-8.2)
[2024-05-07 22:59] LABS: Ethanol 306 mg/dL; Troponin I High Sensitivity 6.8 pg/mL (4.0-76.1)
[2024-05-08] VITALS (29 sets, daily range): BP systolic 78–158; BP diastolic 48–84; PULSE 74–109; TEMP 36.4–36.8; O2SAT 90–97; BMI 34.7
[2024-05-08] MEDS: 0.9 % SODIUM CHLORIDE 1,000 ML 1000 ML IV ×2 (00:15→08:48)
[2024-05-08] MEDS: TEMAZEPAM 15 MG CAPSULE PO (02:45)
[2024-05-08] MEDS: LORAZEPAM 1 MG TABLET PO (02:45)
[2024-05-08] MEDS: HEPARIN SODIUM (PORCINE) 5,000 UNIT/ML VIAL 5000 UNIT SUBQ ×3 (02:45→17:02)
[2024-05-08] MEDS: 0.9 % SODIUM CHLORIDE 1,000 ML 125 ML IV ×3 (02:45→21:28)
[2024-05-08] MEDS: ONDANSETRON PF 4 MG/2 ML VIAL IV (02:45)
[2024-05-08] MEDS: CALCIUM CARBONATE 500 MG (200MG ELEMENTAL) TAB CHEW PO (02:45)
[2024-05-08] MEDS: MULTIVITAMIN TABLET 1 TAB PO ×2 (02:46→08:49)
[2024-05-08] MEDS: FOLIC ACID 1 MG TABLET PO ×2 (02:46→08:49)
--- OUTSIDE RECORDS SUMMARY | 2024-05-08 06:23 | XMS_ITS | CCD ---
Author Organization 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 Role Phone Jose Victoria Unavailable DR [...] Admitting Unavailable SHAIKH GAGNON Primary Care Physician Carlos HOLLINS Attending Unavailable Carlos HOLLINS Attending Unavailable Carlos HOLLINS Attending Unavailable SHAIKH GAGNON Primary Care Unavailable Shaikh Gagnon MD Unavailable Rm Rainey MD Primary Care Provider Jennifer LUCERO, Mignon Unavailable Unallocated , Lorenzos Provider Primary Care Provi phoebe Rm Rainey MD Primary Care Provider [phone] SHAIKH GAGNON Attending Unavailable SHAIKH GAGNON Attending Unavailable SHAIKH GAGNON Attending Unavailable SHAIKH GAGNON Attending Unavailable MIGNON RODRIGUEZ Attending Unavailabl e MIGNON RODRIGUEZ Attending Unavailabl e Allergies Allergy Classification Reported Allergen(s) Allergy Type Date of Onset Reaction(s) Facility (1 source) No Known Medication Allergies; Translations: [No Known Medication Allergies] Propensity to adverse reactions (disorder) [facility] Repository Medications Current Medications Medication Drug Class(es) Dates Sig (Normalized) Sig (Original) [id number] 200 actuat albuterol 0.09 mg/actuat metered dose [...] 05-10-2023 05-10-2023 Other aftercare (1 source) 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 [facility] INFLUENZA A AND B AGon 1 INFLUENZA VIRUS A ANTIGEN Negative [facility] Comment on above: Negative for Flu A p rotein antigen. Infection due to Flu A cannot be ruled out. Flu A antigen in the sample may be below the detection limit of the test. INFLUENZA VIRUS B ANTIGEN Negative [facility] Comment on above: Negative for [...] Carlos HOLLINS MD Where: [facility] [address] [address]- You Need to Schedule the Following Appointments Follow Up with Carlos HOLLINS MD, URL When: Where: [address] [place] [id number]- Medications What How Much When Instructions Changed tamsulosin (tamsulosin 0.4 mg Cap) 1 Capsules By Mouth Every day Duration: 90 Days Pickup at [facility] Unchanged allopurinol (allopurinol 100 mg Tab) [...] physician if questions or concerns Pharmacy Information [facility]: [address] [place] [phone] Allergies No Known Medication Allergies Problems Ongoing [...] care pr (more content not included)... Normal [facility] Urology Office/Clinic Noteon 01-17-2024 Urology Office/Clinic [...] - 0.23 Pt believes he had a Duxbury 7. Completed at [facility]. [1] S/p brachytherapy 03/24/11. PSA decreased which [...] Information GURVINDER HENDRICKSON, Carlos Day, URL [address] [place], [place] [id number]- Additional Instructions: 4 mos with PSA Patient Education Cancer Screening for Men ILaurel, personally scribed for Dr. Hollins on 01/17/2024 08:30:59. . Documentation recorded by the scribe, Laurel Bradley, accurately reflects the services(s) I performed and decisions made by me. Authenticated by Dr. Hollins on 01/17/2024 08:34:12. Portions of this record may have been created with voice recognition artificial intelligence software, specifically [employer], [employer] and or ideeli. Substitutions may have occurred due to the [...] Left nephrect (more content not included)... Normal [facility] Comment on above: Result Comment: Elec tronically Signed By: Carlos HOLLINS MD\.br\Date and Time Signed: 01/17/24 08:35 EDT\.br\Electronically Co-Signed By: Laurel Bradley\.br\Date and Time Co-Signed: 01/17/24 08:31 EDT ED Note-Physicianon 10-20-19 ED Note-Physician [id number] 0#1.00TIFF [facility] Lab Reportson 10-20-2023 Lab Reports [id number] 9#1.00TIFF [facility] Lab Reports [id number] 2#1.00TIFF [facility] RAD - CT Reporton 10-20-2023 RAD - CT Report [id number] 5#1.00TIFF [facility] Screenson 10-20-2023 Screens [id number] #1.00TIFF [facility] Ambulatory Visit Summaryon 0 10-17-2023 Ambulatory Visit Summary ABBEY UMSTAFA :1955 Visit Date:10/17/2023 Ambulatory Visit Instructions Your [...] HENDRICKSON, Carlos Day Where: [facility] Patient Educationon 10-17-19 Patient Education Oncology Prostate [...] under a microscope. This is called the Duxbury score and the total score can range from 6?10, indicating how likely it is that the cancer will spread (metastasize) to other parts of the body. The higher the score, the greater the likelihood that the cancer will spread. ? Primitivo 6 or lower: This indicates that the cancer cells look similar to normal prostate cells (well differentiated). ? Duxbury 7: This indicates that the cancer cells [...] external be (more content not included)... Normal [facility] Urology Office/Clinic Noteon 10-17-2023 Urology Office/Clinic Note Chief Complaint 1 year follow up HPI Staff 1 year follow up w/PSA *Taking Flomax 0.4 mg qd S/P Lt Nephrectomy 2000 Pt was seen at [facility] on 09/06/23 due to left rib pain. BUN 36, Creatinine 1.09 10/04/23. BUN 26. Creatinine 1.33 09/06/23 CT SCAN 08/12/23 PSA: 10/26/19 - 0.05 08/10/21 - 0.05 10/11/22 - <0.13 09/30/23 - 0.90 Dysuria: denies pain or burning Incomplete bladder emptying: denies Hematuria: yes 6 weeks ago, went to [facility], vomiting blood Frequency: 3x a day [...] with voice recognition artificial intelligence software, specifically [employer], [employer] and or ideeli. Substitutions may have occurred due to the inherent limitations of voice recognition and artificial intelligence software. 1. Rising PSA following treatment for malignant neoplasm of prostate (R97.21: Rising PSA following treatment for malignant neoplasm of prostate) PSA: 10/26/19 - 0.05 08/10/21 - 0.05 10/11/22 - <0.13 09/30/23 - 0.90 S/p brachytherapy 03/24/11. Pt believes he had a Duxbury 7. Completed at [facility]. Rise in PSA is concerning given pt [...] adenocarcinoma the prostate, previously treated at the [facility] with prostate brachytherapy now has a PSA [...] MD, URL [address] [address]- Additional Instructions: 3 mos w/ PSA Patient Education Prostate Cancer ITala, personally scribed for Dr. Hollins on 10/17/2023 10:42:59. . Documentation recorded by the scribeTala, accurately reflects the services(s) I performed and decisions made by me. Authenticated by Dr. Hollins on 10/17/2023 10:47:47. Problem List/Past (more content not included)... Normal [facility] Comment on above: Result Comment: Elec tronically Signed By: Carlos HOLLINS MD\.br\Date and Time Signed: 10/17/23 10:50 EDT Automated epithelial cells c ount in urine sediment (number/area)on 10-04-2023 Epithelial cells Auto (Urine sed) [#/Area] NONE SEEN #/LPF NONE/RARE [facility] Automated leukocytes count i n urine sediment (number/area)on 10-04-2023 WBC Auto (Urine sed) [#/Area] NONE SEEN #/HPF 0-2 [facility] Automated urine specific gra vity by refractometryon 10-04-2023 Specific gravity Refractometry automated (U) [Rel density] 1.025 1.005-1.025 [facility] Bilirubin Auto test strip (U ) [Mass/Vol]on 10-04-2023 Bilirubin (U) [Mass/Vol] Negative NEGATIVE [facility] Casts typing in urine sedime nt by light microscopyon 10-04-2023 Casts LM Nom (Urine sed) NONE SEEN #/LPF NONE SEEN [facility] Color Auto (U)on 10-04-2023 Color (U) YELLOW YELLOW [facility] Erythrocyte distribution wid th Auto (RBC) [Ratio]on 10-04-2023 Erythrocyte distribution width (RBC) [Ratio] 13.5 % 11.0-15.0 [facility] Estimated glomerular filtrat ion rate (GFR) non- Americanon 10-04-2023 GFR/1.73 sq M.predicted among non-blacks MDRD (S/P/Bld) [Vol rate/Area] mL/min/{1.73_m2} >=60 [facility] Hematocrit Auto (Bld) [Volum e fraction]on 10-04-2023 Hematocrit (Bld) [Volume fraction] 38.9 % 42.0-54.0 [facility] Hemoglobin [Mass/volume] in Bloodon 10-04-2023 Hemoglobin (Bld) [Mass/Vol] 13.2 g/dL 14.0-18.0 [facility] Iron binding capacity [Mass/ volume] in Serum or Plasmaon 10-04-2023 Iron binding capacity [Mass/Vol] 274.0 ug/dL 250.0-450.0 [facility] Iron saturation [Mass Fracti on] in Serum or Plasmaon 10-04-2023 Iron saturation [Mass fraction] 29.2 % [facility] Ketones Auto test strip (U) [Mass/Vol]on 10-04-2023 Ketones (U) [Mass/Vol] Negative NEGATIVE [facility] Laboratory - Chemistry and C hemistry - challengeon 10-04-2023 Albumin [Mass/Vol] 3.6 g/dL 3.4-5.0 [facility] Calcium [Mass/Vol] 9.4 mg/dL 8.5-10.1 [facility] Chloride [Moles/Vol] 104 mmol/L 98-107 [facility] CO2 [Moles/Vol] 24.4 mmol/L 21.0-32.0 [facility] Creatinine [Mass/Vol] 1.09 mg/dL 0.70-1.30 [facility] Ferritin [Mass/Vol] 257.0 ng/mL 26.0-388.0 [facility] GFR/1.73 sq M.predicted MDRD (S/P/Bld) [Vol rate/Area] mL/min/{1.73_m2} >=60 [facility] Glucose [Mass/Vol] 117 mg/dL 74-106 [facility] Iron [Mass/Vol] 80.0 ug/dL 65.0-175.0 [facility] Potassium [Moles/Vol] 3.9 mmol/L 3.5-5.1 [facility] Sodium [Moles/Vol] 139 mmol/L 136-145 [facility] Urate [Mass/Vol] 5.6 mg/dL 3.5-7.2 [facility] Urea nitrogen [Mass/Vol] 36.0 mg/dL 7.0-18.0 [facility] Urea nitrogen/Creatinine [Mass ratio] 33.0 mg/mg [facility] Laboratory - Urinalysison Protein (U) [Mass/Vol] 16.2 mg/dL <=11.9 [facility] Leukocytes [#/volume] correc yoandy for nucleated erythrocytes in Blood by Automated counon 10-04-2023 WBC corrected for nucl RBC Auto (Bld) [#/Vol] 11.9 10 3/uL 4.0-11.0 [facility] MCH Auto (RBC) [Entitic mass ]on 10-04-2023 MCH (RBC) [Entitic mass] 31.6 pg 25.9-34.0 [facility] MCHC Auto (RBC) [Mass/Vol]on 10-04-2023 MCHC (RBC) [Mass/Vol] 33.9 g/dL 29.9-35.2 [facility] MCV Auto (RBC) [Entitic vol] on 10-04-2023 MCV (RBC) [Entitic vol] 93.1 fL 80.0-94.0 [facility] Mucus LM Ql (Urine sed)on Mucus Ql (Urine sed) NONE SEEN NONE SEEN [facility] No Panel Informationon 10-03 25-Hydroxy Vitamin D Total 29.7 ng/mL [facility] Comment on above: <20 ng/mL Vit D defi cient20-<30 ng/mL Vit D [id number] ng/mL Vit D sufficient>100 ng/mL Potential Toxicity Parathyroid Hormone (Intact) 35 pg/mL 15-65 [facility] Comment on above: Performed at: [place] [id number] Director: Raymundo Wynn PhD, Phone: [phone] Phosphorus Level 4.4 mg/dL 2.6-4.7 [facility] Urine Random Creatinine 102.05 mg/dL 20.00-300.00 [facility] Platelet mean volume Auto (B ld) [Entitic vol]on 10-04-2023 Platelet mean volume (Bld) [Entitic vol] 10.5 fL 9.5-13.5 [facility] Platelets Auto (Bld) [#/Vol] on 10-04-2023 Platelets (Bld) [#/Vol] 244 10 3/uL 150-450 [facility] Protein Auto test strip (U) [Mass/Vol]on 10-04-2023 Protein (U) [Mass/Vol] Negative NEG/TRACE [facility] RBC Auto (Bld) [#/Vol]on RBC (Bld) [#/Vol] 4.18 10 6/uL 4.70-6.10 [facility] Serum or plasma anion gap de terminationon 10-04-2023 Anion gap [Moles/Vol] 14.5 mmol/L [facility] Specific gravity Auto test s trip (U) [Rel density]on 10-04-2023 Specific gravity (U) [Rel density] CLEAR CLEAR [facility] Urine bacteria detection by automated methodon 10-04-2023 Bacteria Auto Ql (U) NONE SEEN #/HPF NONE SEEN [facility] Urine glucose measurement by test strip (mass/volume)on 10-04-2023 Glucose Test strip (U) [Mass/Vol] Negative NEGATIVE [facility] Urine hemoglobin detection b y automated test stripon 10-04-2023 Hemoglobin Auto test strip Ql (U) Negative NEGATIVE [facility] Urine nitrite detection by a utomated test stripon 10-04-2023 Nitrite Auto test strip Ql (U) Negative NEGATIVE [facility] Urine protein/creatinine rat ioon 10-04-2023 Protein/Creatinine (U) [Ratio] 0.16 [facility] Urine sediment crystal ident ification by light microscopyon 10-04-2023 Crystals LM Nom (Urine sed) None Seen #/HPF None Seen [facility] Urine sediment leukocyte cou nt by microscopy (number/high power field)on 10-04-2023 WBC LM.HPF (Urine sed) [#/Area] 0-2 #/HPF NONE SEEN [facility] Urobilinogen Auto test strip (U) [Mass/Vol]on 10-04-2023 Urobilinogen Qn (U) 0.2 {Dash'U}/dL 0.2-1.0 [facility] pH Auto test strip (U)on pH (U) 6.0 [pH] 5.0-9.0 [facility] Lab Reportson 09-30-2023 Lab Reports [id number] #1.00TIFF Normal [facility] CT CHEST WO CONon 10-11-2022 CT [...] LUCAS GOLDSTEIN Date: 2022-10-11 15:31 Normal [facility] CBC AUTO DIFFon 08-23-2022 BASO # 0.0 103/ul Normal 0.0-0.1 [facility] Comment on above: Performed By: #### C BC #### [facility] Laboratory [address] [place] [address] Dr. Jesus White Basophils/100 WBC (Bld) 0.5 % Normal 0.2-2.0 [facility] Comment on above: Performed By: #### C BC #### [facility] [address] [place] [address] Dr. Jesus White EO # 0.2 103/ul Normal 0.0-0.7 [facility] Comment on above: Performed By: #### C BC #### [facility] [address] [place] [address] Dr. Jesus White Eosinophils/100 WBC (Bld) 2.2 % Normal 0.9-7.0 [facility] Comment on above: Performed By: #### C BC #### [facility] [address] [place] [address] Dr. Jesus White Erythrocyte distribution width (RBC) [Ratio] 13.3 % Normal 11.0-15.0 [facility] Comment on above: Performed By: #### C BC #### [facility] [address] [place] [address] Dr. Jesus White Hematocrit (Bld) [Volume fraction] 43.0 % Normal 42.0-54.0 [facility] Comment on above: Performed By: #### C BC #### [facility] [address] [place] [address] Dr. Jesus White Hemoglobin (Bld) [Mass/Vol] 14.4 g/dL Normal 14.0-18.0 [facility] Comment on above: Performed By: #### C BC #### [facility] [address] [place] [address] Dr. Jesus White IG # 0.02 10e3/ul Normal 0.00-0.03 [facility] Comment on above: Performed By: #### C BC #### [facility] [address] [place] [address] Dr. Jesus White IG % 0.2 % Normal 0.0-0.5 [facility] Comment on above: Performed By: #### C BC #### [facility] [address] [place] [address] Dr. Jesus White LYMPH # 3.0 103/ul Normal 1.2-3.8 [facility] Comment on above: Performed By: #### C BC #### [facility] [address] [place] [address] Dr. Jesus White Lymphocytes/100 WBC (Bld) 35.8 % Normal 20.5-60.0 [facility] Comment on above: Performed By: #### C BC #### [facility] [address] [place] [address] Dr. Jesus White MANUAL DIFF REQ NO Normal [facility] Comment on above: Performed By: #### C BC #### [facility] [address] [place] [address] Dr. Jesus White MCH (RBC) [Entitic mass] 30.6 pg Normal 25.9-34.0 [facility] Comment on above: Performed By: #### C BC #### [facility] [address] [place] [address] Dr. Jesus White MCHC (RBC) [Mass/Vol] 33.5 g/dL Normal 29.9-35.2 [facility] Comment on above: Performed By: #### C BC #### [facility] [address] [place] [address] Dr. Jesus White MCV (RBC) [Entitic vol] 91.5 fL Normal 80.0-94.0 [facility] Comment on above: Performed By: #### C BC #### [facility] [address] [place] [address] Dr. Jesus White MONO # 0.8 103/ul Normal 0.3-0.8 [facility] Comment on above: Performed By: #### C BC #### [facility] [address] [place] [address] Dr. Jesus White Monocytes/100 WBC (Bld) 9.1 % Normal 1.7-12.0 [facility] Comment on above: Performed By: #### C BC #### [facility] [address] [place] [address] Dr. Jesus White NEUT # 4.4 103/ul Normal 1.4-6.5 [facility] Comment on above: Performed By: #### C BC #### [facility] [address] [place] [address] Dr. Jesus White Neutrophils/100 WBC (Bld) 52.2 % Normal 43.0-75.0 [facility] Comment on above: Performed By: #### C BC #### [facility] [address] [place] [address] Dr. Jesus White Platelet mean volume (Bld) [Entitic vol] 9.8 fL Normal 9.5-13.5 [facility] Comment on above: Performed By: #### C BC #### [facility] [address] [place] [address] Dr. Jesus White PLT 236 103/ul Normal 150-450 [facility] Comment on above: Performed By: #### C BC #### [facility] [address] [place] [address] Dr. Jesus White RBC 4.70 106/ul Normal 4.70-6.10 [facility] Comment on above: Performed By: #### C BC #### [facility] [address] [place] [address] Dr. Jesus White WBC 8.4 103/ul Normal 4.0-11.0 [facility] Comment on above: Performed By: #### C BC #### [facility] [address] [place] [address] Dr. Jesus White LIPID PROFILEon 08-23-2022 CHOL-HDL RATIO NORM SEE BELOW Normal [facility] Comment on above: Result Comment: 3.3 - 4.4 LOW RISK 4.4 - 7.1 AVERAGE RISK 7.1 - 11.0 MODERATE RISK >11.0 HIGH RISK Performed By: #### C MP, LIPID #### [facility] [address] [place] [address] Dr. Jesus White Cholesterol [Mass/Vol] 121 mg/dL Normal <=200 [facility] Comment on above: Performed By: #### C MP, LIPID #### [facility] [address] [place] [address] Dr. Jesus White Cholesterol in HDL [Mass/Vol] 37 mg/dL Critically low 40-60 [facility] Comment on above: Performed By: #### C MP, LIPID #### [facility] [address] [place] [address] Dr. Jesus White Cholesterol in LDL [Mass/Vol] 59.6 mg/dL Normal [facility] Comment on above: Performed By: #### C MP, LIPID #### [facility] [address] [place] [address] Dr. Jesus White Cholesterol.total/Ch olesterol in HDL [Mass ratio] 3.3 {ratio} Normal [facility] Comment on above: Performed By: #### C MP, LIPID #### [facility] [address] [place] [address] Dr. Jesus White HDL NORMAL > or = 60 mg/dl - LOW CARDIOVASCULAR RISK <40 mg/dl - HIGH CARDIOVASCULAR RISK Normal [facility] Comment on above: Performed By: #### C MP, LIPID #### [facility] [address] [place] [address] Dr. Jesus White LDL CALC NORMAL SEE BELOW Normal [facility] Comment on above: Result Comment: <100 mg/dl OPTIMAL 100 - 129 mg/dl NEAR OR ABOVE OPTIMAL 130 - 159 mg/dl BORDERLINE HIGH 160 - 189 mg/dl HIGH >190 mg/dl VERY HIGH Performed By: #### C MP, LIPID #### [facility] [address] [place] [address] Dr. Jesus White Triglyceride [Mass/Vol] 122 mg/dL Normal <=150 [facility] Comment on above: Performed By: #### C MP, LIPID #### [facility] [address] [place] [address] Dr. Jesus White VLDL CALC 24.4 mg/dL Normal [facility] Comment on above: Performed By: #### C MP, LIPID #### [facility] [address] [place] [address] Dr. Jesus White PROF 14(COMP METB)on 023 Albumin [Mass/Vol] 3.8 g/dL Normal 3.4-5.0 [facility] Comment on above: Performed By: #### C MP, LIPID #### [facility] [address] [place] [address] Dr. Jesus White Albumin/Globulin [Mass ratio] 1.1 {ratio} Normal [facility] Comment on above: Performed By: #### C MP, LIPID #### [facility] [address] [place] [address] Dr. Jesus White ALP [Catalytic activity/Vol] 46 U/L Normal 46-116 [facility] Comment on above: Performed By: #### C MP, LIPID #### [facility] [address] [place] [address] Dr. Jesus White ALT [Catalytic activity/Vol] 37 U/L Normal 16-63 [facility] Comment on above: Performed By: #### C MP, LIPID #### [facility] [address] [place] [address] Dr. Jesus White Anion gap [Moles/Vol] 11.3 mmol/L Normal [facility] Comment on above: Performed By: #### C MP, LIPID #### [facility] [address] [place] [address] Dr. Jesus White AST [Catalytic activity/Vol] 28 U/L Normal 15-37 [facility] Comment on above: Performed By: #### C MP, LIPID #### [facility] [address] [place] [address] [address] Jesus White Bilirubin [Mass/Vol] 0.5 mg/dL Normal 0.2-1.0 [facility] Comment on above: Performed By: #### C MP, LIPID #### [facility] [address] [place] [address] Dr. Jesus White Calcium [Mass/Vol] 9.5 mg/dL Normal 8.5-10.1 [facility] Comment on above: Performed By: #### C MP, LIPID #### [facility] [address] [place] [address] Dr. Jesus White Chloride [Moles/Vol] 104 mmol/L Normal 98-107 [facility] Comment on above: Performed By: #### C MP, LIPID #### [facility] [address] [place] [address] Dr. Jesus White CO2 [Moles/Vol] 28.9 mmol/L Normal 21.0-32.0 [facility] Comment on above: Performed By: #### C MP, LIPID #### [facility] [address] [place] [address] Dr. Jesus White Creatinine [Mass/Vol] 0.99 mg/dL Normal 0.70-1.30 [facility] Comment on above: Performed By: #### C MP, LIPID #### [facility] [address] [place] [address] Dr. Jesus White EGFR-AF JAPANESE >60 Normal >=60 [facility] Comment on above: Performed By: #### C MP, LIPID #### [facility] [address] [place] [address] Dr. Jesus White EGFR-NON AF JAPANESE >60 Normal >=60 [facility] Comment on above: Performed By: #### C MP, LIPID #### [facility] [address] [address] [address] Jesus White Globulin (S) [Mass/Vol] 3.6 g/dL Normal [facility] Comment on above: Performed By: #### C MP, LIPID #### [facility] [address] [address] [address] Jesus White Glucose [Mass/Vol] 92 mg/dL Normal 74-106 [facility] Comment on above: Performed By: #### C MP, LIPID #### [facility] [address] [address] [address] Jesus White Potassium [Moles/Vol] 4.2 mmol/L Normal 3.5-5.1 [facility] Comment on above: Performed By: #### C MP, LIPID #### [facility] [address] [place] [address] Dr. Jesus White Protein [Mass/Vol] 7.4 g/dL Normal 6.4-8.2 [facility] Comment on above: Performed By: #### C MP, LIPID #### [facility] [address] [place] [address] Dr. Jesus White Sodium [Moles/Vol] 140 mmol/L Normal 136-145 [facility] Comment on above: Performed By: #### C MP, LIPID #### [facility] [address] [address] [address] Jesus White Urea nitrogen [Mass/Vol] 12.0 mg/dL Normal 7.0-18.0 [facility] Comment on above: Performed By: #### C MP, LIPID #### [facility] [address] [address] [address] Jesus White Urea nitrogen/Creatinine [Mass ratio] 12.1 mg/mg Normal [facility] Comment on above: Performed By: #### C MP, LIPID #### [facility] [address] LUNG CANCER SCREENINGon [...] LUCAS GOLDSTEIN Date: 2022-07-05 12:53 Normal [facility] BLOOD GASES BTYon 04-08-2022 02 MODE ROOM AIR Normal [facility] Comment on above: Performed By: #### A BG ####[facility] [address] [id number]. Jesus White ALLENS TEST Positive Normal [facility] Comment on above: Performed By: #### A BG ####[facility] [address] [id number]. Jesus White Base excess Calc (Bld) [Moles/Vol] -0.4000 mmol/L Normal -2.0-2.0 [facility] Comment on above: Performed By: #### A BG ####[facility] [address] [address]Dr. Jesus White BIPAP PRESSURE Normal [facility] Comment on above: Performed By: #### A BG ####[facility] [address] [place], [place] [address]Dr. Jesus White CPAP Normal [facility] Comment on above: Performed By: #### A BG ####[facility] [address] [address]Dr. Jesus White FIO2 Normal [facility] Comment on above: Performed By: #### A BG ####[facility] [address] [place], [place] [address]Dr. Jesus White HCO3 (Bld) [Moles/Vol] 24.7 mmol/L Normal 22.0-26.0 [facility] Comment on above: Performed By: #### A BG ####[facility] [address] [place], [place] [address]Dr. Jesus White LPM Normal [facility] Comment on above: Performed By: #### A BG ####[facility] T[address] [place], [place] [address]Dr. Jesus White MINUTE VOLUME Normal [facility] Comment on above: Performed By: #### A BG ####[facility] [address] [place], [place] [address]Dr. Jesus White Oxygen (Bld) [Partial pressure] 75.3 mm[Hg] Critically low 80.0-100.0 [facility] Comment on above: Performed By: #### A BG ####[facility] [address] [place], [place] [address]Dr. Jesus White Oxygen saturation in Blood 94.7 % Critically low 95.0-100.0 [facility] Comment on above: Performed By: #### A BG ####[facility] [address] [place], [place] [address]Dr. Jesus White PCO2 42.0 mmHg Normal 35.0-45.0 [facility] Comment on above: Performed By: #### A BG ####[facility] [address] [address]Dr. Jesus White PEEP [facility] Comment on above: Performed By: #### A BG ####[facility] [address] [address]DrJordin White pH (Bld) 7.379 [pH] Normal 7.350-7.450 [facility] Comment on above: Performed By: #### A BG ####[facility] [address] [address]Dr. Jesus White PIP [facility] Comment on above: Performed By: #### A BG ####[facility] [address] [address]DrJordin White PS [facility] Comment on above: Performed By: #### A BG ####[facility] [address] [address]DrJordin White PUNCTURE SITE LR [facility] Comment on above: Performed By: #### A BG ####[facility] [address] [place], [place] [address]DrJordin White RATE [facility] Comment on above: Performed By: #### A BG ####[facility] [address] [address]DrJordin White VENT MODE [facility] Comment on above: Performed By: #### A BG ####[facility] [address] [address]DrJordin White [place] [facility] Comment on above: Performed By: #### A BG ####[facility] [address] [place], [place] [address]DrJordin White CBC AUTO DIFFon 04-08-2022 BASO # 0.1 103/ul Normal 0.0-0.1 [facility] Comment on above: Performed By: #### C BC #### [facility] [address] [address] [address] Jesus White Basophils/100 WBC (Bld) 0.6 % Normal 0.2-2.0 [facility] Comment on above: Performed By: #### C BC #### [facility] [address] [address] [address] Jesus White EO # 0.2 103/ul Normal 0.0-0.7 [facility] Comment on above: Performed By: #### C BC #### [facility] [address] [place] [address] Dr. Jesus White Eosinophils/100 WBC (Bld) 1.5 % Normal 0.9-7.0 [facility] Comment on above: Performed By: #### C BC #### [facility] [address] [place] [address] Dr. Jesus White Erythrocyte distribution width (RBC) [Ratio] 13.2 % Normal 11.0-15.0 [facility] Comment on above: Performed By: #### C BC #### [facility] [address] [place] [address] Dr. Jesus White Hematocrit (Bld) [Volume fraction] 41.7 % Critically low 42.0-54.0 [facility] Comment on above: Performed By: #### C BC #### [facility] [address] [place] [address] Dr. Jesus White Hemoglobin (Bld) [Mass/Vol] 14.3 g/dL Normal 14.0-18.0 [facility] Comment on above: Performed By: #### C BC #### [facility] [address] [place] [address] Dr. Jesus White IG # 0.03 10e3/ul Normal 0.00-0.03 [facility] Comment on above: Performed By: #### C BC #### [facility] [address] [place] [address] Dr. Jesus White IG % 0.3 % Normal 0.0-0.5 [facility] Comment on above: Performed By: #### C BC #### [facility] [address] [place] [address] Dr. Jesus White LYMPH # 5.6 103/ul Critically high 1.2-3.8 [facility] Comment on above: Performed By: #### C BC #### [facility] [address] [place] [address] Dr. Jesus White Lymphocytes/100 WBC (Bld) 57.0 % Normal 20.5-60.0 [facility] Comment on above: Performed By: #### C BC #### [facility] [address] [place] [address] Dr. Jesus Wihte MANUAL DIFF REQ NO Normal [facility] Comment on above: Performed By: #### C BC #### [facility] [address] [place] [address] Dr. Jesus White MCH (RBC) [Entitic mass] 31.4 pg Normal 25.9-34.0 [facility] Comment on above: Performed By: #### C BC #### [facility] [address] [place] [address] Dr. Jesus White MCHC (RBC) [Mass/Vol] 34.3 g/dL Normal 29.9-35.2 [facility] Comment on above: Performed By: #### C BC #### [facility] [address] [place] [address] Dr. Jesus White MCV (RBC) [Entitic vol] 91.6 fL Normal 80.0-94.0 [facility] Comment on above: Performed By: #### C BC #### [facility] [address] [place] [address] Dr. Jesus White MONO # 0.5 103/ul Normal 0.3-0.8 [facility] Comment on above: Performed By: #### C BC #### [facility] [address] [place] [address] Dr. Jesus White Monocytes/100 WBC (Bld) 5.1 % Normal 1.7-12.0 [facility] Comment on above: Performed By: #### C BC #### [facility] [address] [place] [address] Dr. Jesus White NEUT # 3.5 103/ul Normal 1.4-6.5 [facility] Comment on above: Performed By: #### C BC #### [facility] [address] [address] [address] Jesus White Neutrophils/100 WBC (Bld) 35.5 % Critically low 43.0-75.0 [facility] Comment on above: Performed By: #### C BC #### [facility] [address] [address] [address] Jesus White Platelet mean volume (Bld) [Entitic vol] 9.5 fL Normal 9.5-13.5 [facility] Comment on above: Performed By: #### C BC #### [facility] [address] [address] [address] Jesus White PLT 222 103/ul Normal 150-450 [facility] Comment on above: Performed By: #### C BC #### [facility] [address] [address] [address] Jesus White RBC 4.55 106/ul Critically low 4.70-6.10 [facility] Comment on above: Performed By: #### C BC #### [facility] [address] [address] [address] Jesus White WBC 9.8 103/ul Normal 4.0-11.0 [facility] Comment on above: Performed By: #### C BC #### [facility] [address] [place] [address] STROKE HEAD WOon [...] ERNA LEON Date: 2022-04-08 18:50 Normal [facility] ([facility]VD[facility])on SARS-CoV-2 (COVID-19) RNA PAUL+probe Ql (Unsp spec) Not detected Normal NOT DETECTED [facility] Comment on above: Result Comment: When [...] for this test is supported by the Prep Manager of Health and Human Service's declaration [...] used). Performed By: #### C VDTBH #### [facility] [address] [place] [address] Dr. Jesus White ETHANOL (BLD ALC)on 04-08-20 22 ALC NOTE NOTE: 80 mg/dl is the legal limit for a blood alcohol level Normal [facility] Comment on above: Performed By: #### E TH ####[facility] [address] [id number]. Jesus White Ethanol [Mass/Vol] 344 mg/dL Normal [facility] Comment on above: Performed By: #### E TH ####[facility] [address] [id number]. Jesus White PROF 14(COMP METB)on 022 Albumin [Mass/Vol] 3.5 g/dL Normal 3.4-5.0 [facility] Comment on above: Performed By: #### C MP, HSTROPN #### [facility] [address] [address] [address] Jesus White Albumin/Globulin [Mass ratio] 1.0 {ratio} Normal [facility] Comment on above: Performed By: #### C JORGE HSTROPN #### [facility] [address] [place] [address] Dr. Jesus White ALP [Catalytic activity/Vol] 41 U/L Critically low 46-116 [facility] Comment on above: Performed By: #### C JORGE HSTROPN #### [facility] [address] [place] [address] Dr. Jesus White ALT [Catalytic activity/Vol] 28 U/L Normal 16-63 [facility] Comment on above: Performed By: #### C JORGE HSTROPN #### [facility] [address] [place] [address] Dr. Jesus White Anion gap [Moles/Vol] 12.1 mmol/L Normal [facility] Comment on above: Performed By: #### C JORGE HSTROPN #### [facility] [address] [place] [address] Dr. Jesus White AST [Catalytic activity/Vol] 19 U/L Normal 15-37 [facility] Comment on above: Performed By: #### C JORGE HSTROPN #### [facility] [address] [place] [address] Dr. Jesus White Bilirubin [Mass/Vol] 0.3 mg/dL Normal 0.2-1.0 [facility] Comment on above: Performed By: #### C JORGE HSTROPN #### [facility] [address] [place] [address] Dr. Jesus White Calcium [Mass/Vol] 8.8 mg/dL Normal 8.5-10.1 [facility] Comment on above: Performed By: #### C JORGE, HSTROPN #### [facility] [address] [place] [address] Dr. Jesus White Chloride [Moles/Vol] 105 mmol/L Normal 98-107 [facility] Comment on above: Performed By: #### C JORGE, HSTROPN #### [facility] [address] [address] [address] Jesus White CO2 [Moles/Vol] 24.8 mmol/L Normal 21.0-32.0 [facility] Comment on above: Performed By: #### C MP, HSTROPN #### [facility] [address] [place] [address] Dr. Jesus White Creatinine [Mass/Vol] 1.53 mg/dL Critically high 0.70-1.30 [facility] Comment on above: Performed By: #### C MP, HSTROPN #### [facility] [address] [place] [address] Dr. Jesus White EGFR-AF JAPANESE 55 mL/min/1.73m2 Critically low >=60 [facility] Comment on above: Result Comment: Prev iously reported as: (blank) On 04/08/2022 19:15 By [facility] Performed By: #### C MP, HSTROPN #### [facility] [address] [place] [address] Dr. Jesus White EGFR-NON AF JAPANESE 46 mL/min/1.73m2 Critically low >=60 [facility] Comment on above: Result Comment: Prev iously reported as: (blank) On 04/08/2022 19:15 By [facility] Performed By: #### C MP, HSTROPN #### [facility] [address] [place] [address] Dr. Jesus White Globulin (S) [Mass/Vol] 3.5 g/dL Normal [facility] Comment on above: Performed By: #### C MP, HSTROPN #### [facility] [address] [place] [address] Dr. Jesus White Glucose [Mass/Vol] 116 mg/dL Critically high 74-106 [facility] Comment on above: Performed By: #### C MP, HSTROPN #### [facility] [address] [place] [address] Dr. Jesus White Potassium [Moles/Vol] 3.9 mmol/L Normal 3.5-5.1 [facility] Comment on above: Performed By: #### C MP, HSTROPN #### [facility] [address] [address] [address] Jesus White Protein [Mass/Vol] 7.0 g/dL Normal 6.4-8.2 [facility] Comment on above: Performed By: #### C MP, HSTROPN #### [facility] [address] [address] [address] Jesus White Sodium [Moles/Vol] 138 mmol/L Normal 136-145 [facility] Comment on above: Performed By: #### C MP, HSTROPN #### [facility] [address] [address] [address] Jesus White Urea nitrogen [Mass/Vol] 17.0 mg/dL Normal 7.0-18.0 [facility] Comment on above: Performed By: #### C MP, HSTROPN #### [facility] [address] [address] [address] Jesus White Urea nitrogen/Creatinine [Mass ratio] 11.1 mg/mg Normal [facility] Comment on above: Performed By: #### C MP, HSTROPN #### [facility] [address] [address] [address] Jesus White PROTIMEon 04-08-2022 INR Coag (PPP) [Relative time] 1.00 {INR} Normal [facility] Comment on above: Performed By: #### P TT, PT ####[facility] [address] [address]Dr. Jesus White INR GUIDELINES SEE BELOW Normal [facility] Comment on above: Result Comment: JULIET RED INR: 2.0 - 3.0 CONDITIONS NOT LISTED BELOW 2.5 - 3.5 FOR PROSTHETIC HEART VALVE REPLACEMENT 2.5 - 3.5 RECURRENT THROMBOSIS Performed By: #### P TT, PT ####[facility] [address] [address]Dr. Jesus White PT Coag (PPP) [Time] 10.8 s Normal 9.0-11.6 [facility] Comment on above: Performed By: #### P TT, PT ####[facility] [address] [id number]. Jesus White PTTon 04-08-2022 aPTT Coag (Bld) [Time] 24.8 s Normal 22.3-36.2 [facility] Comment on above: Performed By: #### P TT, PT ####[facility] [address] [id number] White TROPONIN, HIGH SENSITIVITYon 04-08-2022 HSTROP 16.7 pg/mL Normal 4.0-76.1 [facility] Comment on above: Result Comment: CUT- OFF POINTS HAVE BEEN ESTABLISHED BASED ON THE FOURTH UNIVERSAL DEFINITIONS OF MYOCARDIAL INFARCTION. THE UPPER REFERENCE LIMIT (URL) OF TROPONIN, DEFINED THE 99TH PERCENTILE OF cTnI DISTRIBUTION IN A REFERENCE POPULATION, HAS BEEN CONFIRMED THE DECISION THRESHOLD FOR NC DIAGNOSIS. Performed By: #### C MP, HSTROPN #### [facility] [address] [place] [address] Dr. Jesus White PROF CHEM 8 (BAS METB)on Anion gap [Moles/Vol] 13.3 mmol/L Normal [facility] Comment on above: Performed By: #### B MP #### [facility] [address] [place] [address] Dr. Jesus White Calcium [Mass/Vol] 9.7 mg/dL Normal 8.5-10.1 [facility] Comment on above: Performed By: #### B MP #### [facility] [address] [place] [address] Dr. Jesus White Chloride [Moles/Vol] 103 mmol/L Normal 98-107 [facility] Comment on above: Performed By: #### B MP #### [facility] [address] [place] [address] Dr. Jesus White CO2 [Moles/Vol] 28.4 mmol/L Normal 21.0-32.0 [facility] Comment on above: Performed By: #### B MP #### [facility] [address] [place] [address] Dr. Jesus White Creatinine [Mass/Vol] 1.21 mg/dL Normal 0.70-1.30 [facility] Comment on above: Performed By: #### B MP #### [facility] [address] [address] [address] Jesus White EGFR-AF JAPANESE >60 Normal >=60 [facility] Comment on above: Performed By: #### B MP #### [facility] [address] [address] [address] Jesus White EGFR-NON AF JAPANESE 60 mL/min/1.73m2 Normal >=60 [facility] Comment on above: Performed By: #### B MP #### [facility] [address] [address] [address] Jesus White Glucose [Mass/Vol] 95 mg/dL Normal 74-106 [facility] Comment on above: Performed By: #### B MP #### [facility] [address] [address] [address] Jesus White Potassium [Moles/Vol] 3.7 mmol/L Normal 3.5-5.1 [facility] Comment on above: Performed By: #### B MP #### [facility] [address] [address] [address] Jesus White Sodium [Moles/Vol] 141 mmol/L Normal 136-145 [facility] Comment on above: Performed By: #### B MP #### [facility] [address] [address] [address] Jesus White Urea nitrogen [Mass/Vol] 12.0 mg/dL Normal 7.0-18.0 [facility] Comment on above: Performed By: #### B MP #### [facility] [address] [address] [address] Jesus White Urea nitrogen/Creatinine [Mass ratio] 9.9 mg/mg Normal [facility] Comment on above: Performed By: #### B MP #### [facility] [address] [address] [address] Jesus White ER URINE PROFILEon 2 Bilirubin Ql (U) Negative Normal NEGATIVE [facility] Comment on above: Performed By: #### VALERIO GOULDRO ####[facility] [address] [address]Dr. Jesus White Clarity (U) CLEAR Normal CLEAR [facility] Comment on above: Performed By: #### VALERIO GOULDRO ####[facility] [address] [address]Dr. Carollan White Color (U) LT. YELLOW Normal YELLOW [facility] Comment on above: Performed By: #### VALERIO GOULDRO ####[facility] [address] [address]Dr. Jesus White ERUAHD A micrscopic examination will be performed if indicated. Normal [facility] Comment on above: Performed By: #### VALERIO GOULDRO ####[facility] [address] [place], [place] [address]Dr. Jesus White Glucose Ql (U) Negative Normal NEGATIVE [facility] Comment on above: Performed By: #### VALERIO GOULDRO ####[facility] [address] [place], [place] [address]Dr. Yilan White Hemoglobin Ql (U) Negative Normal NEGATIVE [facility] Comment on above: Performed By: #### VALERIO GOULDRO ####[facility] [address] [place], [place] [address]Dr. Jesus White Ketones Ql (U) Negative Normal NEGATIVE [facility] Comment on above: Performed By: #### VALERIO GOULDRO ####[facility] [address] [place], [place] [address]Dr. Yilan White LEUKOCYTES Negative Normal NEGATIVE [facility] Comment on above: Performed By: #### VALERIO GOULDRO ####[facility] [address] [place], [place] [address]Dr. Yilan White Nitrite Ql (U) Negative Normal NEGATIVE [facility] Comment on above: Performed By: #### VALERIO GOULDRO ####[facility] [address] [place], [place] [address]Dr. Jesus White pH (U) 6.0 [pH] Normal 5-9 [facility] Comment on above: Performed By: #### CALEB GOULD ####[facility] [address] [address]Dr. Jesus White SPEC GRAVITY <=1.005 Abnormal 1.005-<=1.025 [facility] Comment on above: Performed By: #### CALEB GOULD ####[facility] [address] [place] [address]Dr. Jesus White UA PROTEIN Negative Normal NEGATIVE/ TRACE [facility] Comment on above: Performed By: #### CALEB GOULD ####[facility] [address] [place], [place] [address]Dr. Jesus White UR MICRO IND INDICATED Normal [facility] Comment on above: Performed By: #### CALEB GOULD ####[facility] [address] [place], [place] [address]Dr. Jesus White Urobilinogen Qn (U) 0.2 {Dash'U}/dL Normal 0.2 - 1. 0 [facility] Comment on above: Performed By: #### CALEB GOULD ####[facility] [address] [place], [place] [address]Dr. Jesus White URINE MICROSCOPIC ONLYon BACTERIA NONE SEEN Normal NONE SEEN [facility] Comment on above: Performed By: #### CALEB GOULD ####[facility] V[address] [place], [place] [address]Dr. Jesus White Bacteria identified Cx Nom (U) NOT INDICATED Normal [facility] Comment on above: Performed By: #### CALEB GOULD ####[facility] [address] [place], [place] [address]Dr. Jesus White CAST NONE SEEN Normal NONE SEEN [facility] Comment on above: Performed By: #### CALEB GOULD ####[facility] [address] [place], [place] [address]Dr. Jesus White Crystals LM Nom (Urine sed) NONE SEEN Normal NONE SEEN [facility] Comment on above: Performed By: #### Júnior BARNES UMICRO ####[facility] [address] [place] [address]Dr. Jesus White Epithelial cells LM Ql (Urine sed) RARE Normal NONE SEEN /RARE [facility] Comment on above: Performed By: #### E RUR UMICRO ####[facility] [address] [place] [address]Dr. Jesus White MUCOUS NONE SEEN Normal NONE SEEN [facility] Comment on above: Performed By: #### E MOLLY UMICRO ####[facility] [address] [place] [address]Dr. Jesus White RBC NONE SEEN Abnormal 0-2 [facility] Comment on above: Performed By: #### Júnior BARNES UMICRO ####[facility] [address] [place] [address]Dr. Jesus White WBC NONE SEEN Normal NONE SEEN [facility] Comment on above: Performed By: #### E RUPaul UMICRO ####[facility] [address] [place] [address]Dr. Jesus White US CRYSTAL DOP LEG LTon [...] VARSHA BARNARD Date: 2022-01-01 08:49 Normal [facility] Vital Signs Date Time Vital Sign Value Performing Mayank hooker 04-23-2024 14:58-0500 Body height 172.7 cm Mignon Rodriguez [employer] Work Phone: [facility] 04-23-2024 14:58-0500 Body mass index (BMI) [Ratio] 35.58 kg/m2 Mignon Rodriguez [employer] Work Phone: [facility] 04-23-2024 14:58-0500 Body temperature 97.3 [degF] Mignon Rodriguez [employer] Work Phone: [facility] 04-23-2024 14:58-0500 Body weight 106.14 kg Mignon Rodriguez [employer] Work Phone: [facility] 04-23-2024 14:58-0500 Diastolic blood pressure 60 mm[Hg] Mignon Rodriguez [employer] Work Phone: [facility] 04-23-2024 14:58-0500 Heart rate 62 /min Mignon Rodriguez [employer] Work Phone: [facility] 04-23-2024 14:58-0500 Respiratory rate 22 /min Mignon Rodriguez [employer] Work Phone: [facility] 04-23-2024 14:58-0500 SaO2% (BldA) [Mass fraction] 97 % Mignon Rodriguez [employer] Work Phone: [facility] 04-23-2024 14:58-0500 Systolic blood pressure 130 mm[Hg] Mignon Rodriguez [employer] Work Phone: [facility] 03-19-2024 08:59-0400 Body mass index (BMI) [Ratio] 33.06 kg/m2 Mignon Rodriguez [employer] Work Phone: [facility] 03-19-2024 08:59-0400 Body temperature 97.3 [degF] Mignon Rodriguez [employer] Work Phone: [facility] 03-19-2024 08:59-0400 Body weight 104.51 kg Mignon Burrowspatrick [employer] Work Phone: [facility] 03-19-2024 08:59-0400 Diastolic blood pressure 80 mm[Hg] Mignon Rodriguez [employer] Work Phone: [facility] 03-19-2024 08:59-0400 Heart rate 63 /min Mignon Rodriguez [employer] Work Phone: [facility] 03-19-2024 08:59-0400 SaO2% (BldA) [Mass fraction] 98 % Mignon Choprazpatrick [employer] Work Phone: [facility] 03-19-2024 08:59-0400 Systolic blood pressure 162 mm[Hg] Mignon Rodriguez [employer] Work Phone: [facility] 01-17-2024 08:08-0400 Blood Pressure Location Carlos [employer] [facility] 01-17-2024 08:08-0400 Diastolic blood pressure 84 mm[Hg] Carlos COOK [facility] 01-17-2024 08:08-0400 Heart rate 62 /min [employer] [facility] 01-17-2024 08:08-0400 Respiratory rate 19 /min Carlos [employer] [facility] 01-17-2024 08:08-0400 Systolic blood pressure 151 mm[Hg] Carlos COOK [facility] 10-17-2023 10:02-0400 Blood Pressure Location Carlos [employer] [facility] 10-17-2023 10:02-0400 Diastolic blood pressure 66 mm[Hg] Carlos HOLLINS [facility] 10-17-2023 10:02-0400 Heart rate 66 /min Carlos HOLLINS [facility] 10-17-2023 10:02-0400 Respiratory rate 18 /min Carlos HOLLINS [facility] 10-17-2023 10:02-0400 Systolic blood pressure 120 mm[Hg] Carlos HOLLINS [facility] 10-13-2023 13:17-0400 Body height 177.8 cm [facility] 10-13-2023 13:17-0400 Body mass index (BMI) [Ratio] 32.5 kg/m2 [facility] 10-13-2023 13:17-0400 Body temperature 97 [degF] [facility] 10-13-2023 13:17-0400 Body weight 102.96 kg [facility] 10-13-2023 13:17-0400 Diastolic blood pressure 70 mm[Hg] [facility] 10-13-2023 13:17-0400 Heart rate 74 /min [facility] 10-13-2023 13:17-0400 Respiratory rate 20 /min [facility] 10-13-2023 13:17-0400 SaO2% (BldA) [Mass fraction] 97 % [facility] 10-13-2023 13:17-0400 Systolic blood pressure 120 mm[Hg] [facility] 03-17-2023 15:20-0400 Body height 177.8 cm Jose Julien Other [employer] [facility] [employer] Other 03-17-2023 15:20-0400 Body mass index (BMI) [Ratio] 31.96 kg/m2 Jose Julien Other [employer] Other 03-17-2023 15:20-0400 Body temperature 96.9 [degF] Jose Julien Other [employer] Other 03-17-2023 15:20-0400 Body weight 101.06 kg Jose Julien Other [employer] Other 03-17-2023 15:20-0400 Diastolic blood pressure 73 mm[Hg] Jose Julien Other [employer] Other 03-17-2023 15:20-0400 Respiratory rate 18 /min Jose Julien Other [employer] Other 03-17-2023 15:20-0400 SaO2% (BldA) [Mass fraction] 98 % Jose Julien Other [employer] Other 03-17-2023 15:20-0400 Systolic blood pressure 134 mm[Hg] Jose Julien Other [employer] Other 09-30-2022 11:20-0400 Body height 177.8 cm Jose Julien Other [employer] Other 09-30-2022 11:20-0400 Body mass index (BMI) [Ratio] 33.6 kg/m2 Jose Julien Other [employer] Other 09-30-2022 11:20-0400 Body temperature 96.3 [degF] Jose Julien Other [employer] Other 09-30-2022 11:20-0400 Body weight 106.23 kg Jose Julien Other [employer] Other 09-30-2022 11:20-0400 Diastolic blood pressure 64 mm[Hg] Jose Julien Other [employer] Other 09-30-2022 11:20-0400 Respiratory rate 18 /min Jose Julien Other [employer] Other 09-30-2022 11:20-0400 SaO2% (BldA) [Mass fraction] 99 % Jose Julien Other [employer] Other 09-30-2022 11:20-0400 Systolic blood pressure 138 mm[Hg] Jose Julien Other [employer] Other 03-22-2022 14:00-0400 Body height 177.8 cm Jose Julien Other [employer] Other 03-22-2022 14:00-0400 Body mass index (BMI) [Ratio] 33.14 kg/m2 Jose Julien Other [employer] Other 03-22-2022 14:00-0400 Body temperature 95.9 [degF] Jose Julien Other [employer] Other 03-22-2022 14:00-0400 Body weight 104.78 kg Jose Julien Other [employer] Other 03-22-2022 14:00-0400 Diastolic blood pressure 70 mm[Hg] Jose Julien Other [employer] Other 03-22-2022 14:00-0400 Respiratory rate 18 /min Jose Julien Other [employer] Other 03-22-2022 14:00-0400 SaO2% (BldA) [Mass fraction] 97 % Jose Juline Other [employer] Other 03-22-2022 14:00-0400 Systolic blood pressure 119 mm[Hg] Jose Julien Other [employer] Other 06-18-2021 11:40-0500 Body height 177.8 cm Jose Julien Other [employer] Other 06-18-2021 11:40-0500 Body mass index (BMI) [Ratio] 37.22 kg/m2 Jose Julien Other [employer] Other 06-18-2021 11:40-0500 Body temperature 95.9 [degF] Jose Julien Other [employer] Other 06-18-2021 11:40-0500 Body weight 117.66 kg Jose Julien Other [employer] Other 06-18-2021 11:40-0500 Diastolic blood pressure 70 mm[Hg] Jose Julien Other [employer] Other 06-18-2021 11:40-0500 Respiratory rate 18 /min Jose Julien Other [employer] Other 06-18-2021 11:40-0500 SaO2% (BldA) [Mass fraction] 97 % Jose Julien Other [employer] Other 06-18-2021 11:40-0500 Systolic blood pressure 124 mm[Hg] Jose Victoria Other [employer] Other Encounters Encounter Date Encounter Type Care Provider Facility Start: 05-22-2024 ambulatory Carlos HOLLINS Facility :[facility] Start: 04-23-2024 End: 04-23-2024 Office outpatient visit 15 minutes Mignon Rodriguez [employer] Work Phone: [facility] Comment on above: Bronchitis (Primary Dx); Viral upper respiratory tract infection Start: 04-23-2024 End: 04-23-2024 ambulatory MIGNON RODRIGUEZ Not Available Start: 04-23-2024 End: 04-23-2024 Bamboo flowsheet Mignon Rodriguez [employer] Work Phone: [facility] Start: 04-23-2024 End: 04-23-2024 Bamboo flowsheet Mignon Rodriguez [employer] Work Phone: [facility] Start: 04-18-2024 End: 04-18-2024 Clinisync Result Encounter Generic External Data Provider [facility] Unsolicited Start: 04-18-2024 End: 04-18-2024 Clinisync Result Encounter Generic External Data Provider [facility] Unsolicited Start: 03-27-2024 End: 03-27-2024 Refill Mignon Rodriguez [employer] Work Phone: [facility] Comment on above: Hyperlipidemia, unsp ecified (CMS/HCC); Essential (primary) hypertension (CMS/HCC); Hyperuricemia; Gastroesophageal reflux disease with esophagitis without hemorrhage Start: 03-20-2024 End: 03-20-2024 Orders Only Mignon Rodriguez [employer] Work Phone: [facility] Comment on above: Acute bacterial sinu sitis (Primary Dx) Start: 03-19-2024 End: 03-19-2024 Bamboo flowsheet Mignon Smithk [employer] Work Phone: [facility] Start: 03-19-2024 End: 03-19-2024 Bamboo flowsheet Mignon Burrowspatrick [employer] Work Phone: [facility] Start: 03-19-2024 End: 03-19-2024 Clinisync Result Encounter Mignon Jennifer [employer] Work Phone: [facility] Unsolicited Start: 03-19-2024 End: 03-19-2024 Office outpatient visit 15 minutes Mignon Jennifer [employer] Work Phone: [facility] Comment on above: Viral upper respirat ory tract infection (Primary Dx); Acute right ankle pain; Centrilobular emphysema (CMS/HCC); Ankle injury, right, initial encounter Start: 03-19-2024 End: 03-19-2024 Refill Mignon Rodriguez [employer] Work Phone: [facility] Comment on above: Hyperuricemia Start: 01-17-2024 End: 01-17-2024 ambulatory Carlos HOLLINS Facility:[facility] Start: 01-17-2024 End: 01-17-2024 Patient encounter procedure Carlos HOLLINS [facility] Start: 11-24-2023 End: 11-24-2023 ambulatory SHAIKH ALDAIR Not Available Start: 10-17-2023 End: 10-17-2023 ambulatory Carlos HOLLINS Facility:[facility] Start: 10-17-2023 End: 10-17-2023 Patient encounter procedure Carlos HOLLINS [facility] Start: 10-13-2023 End: 10-13-2023 ambulatory [facility] Work Phone: Start: 10-13-2023 End: 10-13-2023 Patient encounter procedure [facility] Physician [facility] Nephrology Fred Work Phone: Start: 10-04-2023 Non-patient / Non-visit [facility] Physician [facility] Professional [employer] Work Phone: Start: 09-28-2023 End: 09-28-2023 ambulatory PATEL FAWWAD Not Available Start: 08-23-2023 End: 08-23-2023 ambulatory PATEL FAWWAD Not Available Start: 05-10-2023 Patient encounter procedure Mignon Rodriguez [employer] Work Phone: [facility] Start: 05-10-2023 End: 05-10-2023 ambulatory PATEL FAWWAD Not Available Start: 03-17-2023 End: 03-17-2023 ambulatory Jose Julien Other [employer] Other Start: 03-17-2023 Office outpatient vi sit 15 minutes Jose Julien [facility] Start: 10-11-2022 End: 10-12-[address] CARLOS HOLLINS Facility:[facility] Start: 09-30-2022 End: 09-30-2022 ambulatory Jose Julien Other [employer] Other Start: 09-30-2022 Office outpatient vi sit 15 minutes Jose Julien [facility] Start: 08-23-2022 End: 08-24-2022 ambulatory PATEL H FAWWAD Facility:[facility] Start: 07-05-2022 End: 07-06-2022 ambulatory RUKHSANA SAMSA . Facility:[facility] Start: 04-08-2022 End: 04-08-[address] COLTEN NUNO . Facility:[facility] Start: 03-24-2022 End: 03-25-2022 ambulatory RUKHSANA SAMSA . Facility:[facility] Start: 03-22-2022 End: 03-22-2022 ambulatory Jose Julien Other [employer] Other Start: 03-22-2022 Office outpatient vi sit 25 minutes Jose Julien [facility] Start: 02-16-2022 End: 02-17-2022 ambulatory SHAIKH Nancy GAGNON Facility:[facility] Start: 01-01-2022 End: 01-01-[address] LUNA DUFFY . Facility:[facility] Start: 06-21-2021 End: 06-21-2021 ambulatory Jose Julien Other [employer] Other Start: 06-21-2021 Telephone encounter Jose Julien [facility] Start: 06-18-2021 End: 06-18-2021 ambulatory Jose Julien Other [employer] Other Start: 06-18-2021 Office outpatient vi sit 25 minutes Jose Julien [facility] Procedures Date Procedure Procedure Detail Performing Clinician Start: 04-18-2024 MHPT PSA, DIAGNOSTIC Ge neric External Data Provider Start: 03-19-2024 SARS-COV-2 AG* Mignon Rodriguez [employer] Work Phone: Start: 03-19-2024 [facility] INFLUENZA A AND B AG Mignon Burrowspatrick [employer] Work Phone: Start: 10-11-[address] WINIFRED HOLLINS Comment on above: Performed By: #### P SAD ####[place] [address]DrJordin White Start: 03-24-2011 Brachytherapy Carlos PIZARRO Start: [...] [facility] [address] [place] [address] Mignon Rodriguez, [employer] [address] [place] [address] [facility] Start: 05-10-2024 Medicare Annual Wellness (AWV) Medicare Annual Wellness (AWV) [facility] Start: 04-23-2024 End: 04-23-2024 Patient encounter procedure 04/23/2024 3:00 PM EST Office Visit [facility] [address] [place] [phone] Mignon Rodriguez, [employer] [address] [place] [address] Arrived [facility] Comment on above: Arrived Start: 03-19-2024 End: 03-19-2025 COVID-19 / FLU A/B / RSV PCR ([facility]) COVID-19 / FLU A/B / RSV PCR ([facility]) Lab Routine Viral upper respiratory tract infection Expected: 03/19/2024 (Approximate), Expires: 03/19/2025 [facility] Work Phone: Comment on above: Expected: 03/19/2024 (Approximate), Expires: 03/19/2025 Start: 03-19-2024 End: 03-19-2024 Patient encounter procedure 03/19/2024 9:00 AM EDT Office Visit [facility] [address] [place] [phone] Mignon Rodriguez, [employer] [address] [place] [phone] Arrived [facility] Comment on above: Arrived Start: 02-05-2024 Influenza vaccination Influenza Vacc ine (#1) [facility] Start: 02-21-1961 Pneumococcal Vaccine : 65+ Years (1 of 2 - PCV) Pneumococcal Vaccine: 65+ Years (1 of 2 - PCV) [facility] Start: 1955 Screening for malign ant neoplasm of colon [facility] Renal function 2000 panel - Serum or Plasma [facility] XR Ankle - right 3 Views XR ankle 3+ views right Imaging Routine Acute right ankle pain Ordered: 03/19/2024 [facility] Comment on above: Ordered: 03/19/2024 [facility] Immunizations Immunization Date Immunization Notes Care Provider Blake blair 03-17-2023 influenza virus vaccine, unspecified formulation Carlos HOLLINS [facility] 03-17-2023 Influenza, High-dose Seasonal, Quadrivalent, Preservative Free Mignon Rodriguez [employer] Work Phone: [facility] 03-27-2022 influenza virus vaccine, unspecified formulation [employer] [facility] 03-27-2022 Influenza, High-dose Seasonal, Quadrivalent, Preservative Free Mignon Rodriguez [employer] Work Phone: [facility] 05-27-2021 SARS-CoV-2 (COVID-19 ) mRNA-1273 vaccine Carlos [employer] [facility] Comment on above: Result Comment: [facility] 03-26-2021 influenza virus vaccine, unspecified formulation Carlos [employer] [facility] 03-26-2021 Influenza, High-dose Seasonal, Quadrivalent, Preservative Free Mignon Rodriguez [employer] Work Phone: [facility] 11-21-2020 SARS-CoV-2 (COVID-19 ) mRNA-1273 vaccine [employer] [facility] 10-16-2020 SARS-CoV-2 (COVID-19 ) [id number] vaccine Carlos HOLLINS [facility] 02-05-2020 influenza virus vaccine, unspecified formulation Carlos HOLLINS [facility] 05-14-2014 influenza virus vaccine, unspecified formulation Carlos HOLLINS [facility] 05-14-2014 influenza, seasonal, injectable Mignon Rodriguez NP Work Phone: [facility] Payers Date Payer Category Payer Medicaid [id number] 2012 Medicaid [place] Ad[employer]age [id number] 501 [id number] 1959 Medicare [id number] 1956 Unknown [id number] [id number] 1956 Unknown [id number] 2.16.840.1.986423.3.579.2.593 1956 Unknown [id number] 2.16.840.1.103872.3.579.2.593 1956 Unknown [id number] 2.16.840.1.293496.3.579.2.593 1956 Unknown [id number] 2.16.840.1.612455.3.579.2.593 1956 Unknown [id number] 2.16.840.1.070400.3.579.2.593 1956 Unknown [id number] 2.16.840.1.395730.3.579.2.593 1956 Unknown [id number] 2.16.840.1.861355.3.579.2.593 1956 Unknown [id number] 2.16.840.1.072093.3.579.2.727 1956 Unknown [id number] 2.16.840.1.003186.3.579.2.727 1956 Unknown [id number] 2.16.840.1.817087.3.579.2.727 1956 Unknown [id number] 2.16.840.1.017055.3.579.2.1259 1956 Unknown [id number] 2.16.840.1.712583.3.579.2.1259 1956 Unknown [id number] 2.16.840.1.405880.3.579.2.1259 1956 Unknown [id number] 2.16.840.1.207895.3.579.2.1259 1956 Unknown [id number] 2.16.840.1.614503.3.579.2.1259 1956 Unknown [id number] 2.16.840.1.444837.3.579.2.1259 Medicaid [employer] [id number] Self-pay Self Pay [id number] Unknown [employer] GHAZALA [id number] Social History Date Type Detail Facility Unknown if ever smoked [employer] Other Start: 05-10-2023 End: 11-24-2023 Sex Assigned At [facility] Start: 10-13-2023 [facility] Start: 1955 Sex Assigned At Male F [facility] Start: 10-17-2023 End: 01-17-2024 Tobacco smoking status Light tobacco smoker (finding) [facility] Tobacco smoking status Never [facility] Start: 11-24-2023 Tobacco smoking stat us [facility] Smokes tobacco daily [facility] History of [...] 01-17-2024 Functional Status N/A [facility] 10-17-2023 Functional Status N/A [facility] Clinical Notes 06-18-2021 to 04-24-2024 Mignon [...] 69 y.o. male who presents for Follow-up ([facility] er f/up URI). HPI Was seen in [...] 20 MG tablet documented in this encounter [facility] 04-23-2024 Instructions Mignon Rodriguez NP - 04/23/2024 [...] NEAREST EMERGENCY DEPARTMENT. documented in this encounter [facility] 03-19-2024 History of Presen t illness Narrative [...] (Injury 2 weeks ago with ankle ). [facility] Pulmonology- Dr. Rojas Cardiology- Dr. Victoria [...] (chronic obstructive pulmonary disease) with emphysema ([facility]/HCC) URI (upper respiratory infection) - Primary Sinus congestion, runny nose, body aches X10 days. Discussed likely viral etiology. Ordered COVID/Flu/RSV panel. Recommended rest, fluids, OTC management for now. Relevant Orders COVID-19 / FLU A/B / RSV PCR ([facility]) Ankle injury, right, initial encounter Rolled ankle;e 2 weeks ago. Did not receive tx or imaging. Reports swelling and tenderness still Is able to bear weight and ambulate, but does report associated pain. Selling noted on observation. No discoloration observed. Xray ankle ordered. Other Visit Diagnoses Acute right ankle pain Relevant Orders XR ankle 3+ views right documented in this encounter [facility] 03-19-2024 Instructions Mignon Rodriguez NP [...] NEAREST EMERGENCY DEPARTMENT. documented in this encounter [facility] 01-17-2024 Hospital Discharg e instructions [...] if anything looks unusual. Men with a [id number] risk for skin cancer may want to see a informatics specialist (talk show host) for an annual body check. What are the benefits of screening? Cancer screening is done to look for cancer in the very early stages, before it spreads and becomes harder to treat and before you would start to notice symptoms. Finding cancer early improves the chances of successful treatment. It may save your life. Where to find more information [place] [employer]: www.cancer.org Centers for Disease Control and Prevention: www.cdc.gov National Cancer [place]: www.cancer.gov Contact a health care provider if: [...] provider. Document Revised: 10/19/2021 Document Reviewed: 04/18/2020 [email or web address] Patient Education 2022 [employer]. Follow Up Care 10/17/2023 10:47:32 With:GURVINDER HENDRICKSON, Carlos Day, URL Address: [address] [place] [address]- When: Unknown [facility] 01-17-2024 Note Patient Education Oncology Cancer [...] if anything looks unusual. Men with a htupmp-nsmq-jtxbll risk for skin cancer may want to see a informatics specialist (talk show host) for an annual body check. What are the benefits of screening? Cancer screening is done to look for cancer in the very early stages, before it spreads and becomes harder to treat and before you would start to notice symptoms. Finding cancer early improves the chances of success (more content not included)... [facility] 10-17-2023 Hospital Discharg e instructions Patient [...] similar to normal prostate cells (well differentiated). [place] 7: This indicates that the cancer cells [...] stress of having cancer. General instructions Take aebb-igs-aqvvisl and prescription medicines only as told by your health care provider. If you have to go to the hospital, notify your cancer specialist (oncologist). Keep all follow-up visits. This is important. Where to find more information [employer]: www.cancer.org [place] [employer] On[employer]: www.cancer.net National Cancer [place]: www.cancer.gov Contact a health care provider if: [...] provider. Document Revised: 08/19/2021 Document Reviewed: 08/19/2021 [employer] Patient Education 2022 [employer]. Follow Up Care 10/15/2022 10:10:00 With:GURVINDER HENDRICKSON, Carlos Day, URL Address: [facility] [place] [address]- When: Unknown [facility] 03-17-2023 Evaluation note Encounter Date [...] Monitor LFTs and lipid profile with PCP. [employer] Other 04-27-2023 Evaluation note* Encounter Date Diagnosis [...] have gout. I have prescribed oral Allopurinol [employer] Other 10-17-2022 Evaluation note* Encounter Date Diagnosis [...] have gout. I have prescribed oral Allopurinol [employer] Other 07-29-2022 NotePROCEDURE: XR FEMUR LT HISTORY: [...] Electronically authenticated by: LUCAS GOLDSTEIN Date: 2022-01-01 08:35[facility]01-13-2022 Evaluation note* Encounter Date Diagnosis Assessment [...] Q60.0) He has a solitary right kidney. [employer] Other Evaluation + Plan note Future Appointments Appointment Date:01/16/2024 09:45:00 AM Scheduled Provider:Carlos HOLLINS MD Location:[facility] Appointment Type:URO Office Visit Diagnostic Tests Pending * PSA Total 11/05/23 [facility] Evaluation + Plan note Future Appointments Appointment Date:05/22/2024 09:30:00 AM Scheduled Provider:Carlos HOLLINS MD Location:[facility] Appointment Type:URO Office Visit Diagnostic Tests Pending * PSA Total 01/17/24 [facility] Evaluation noteNo doxo Other evaluation note* Diagnosis Onset Date Resolution Status Anemia of renal disease acut e CKD (chronic kidney disease) stage 3, GFR 30-59 ml/min acute Hyperlipidemia acute [id number] acute Hyperuricemia acute Hypomagnesemia acute Secondary hyperparathyroidism acute Solitary kidney, acquired ac [facility] Work Phone: evalucrelf note* Diagnosis Primary hypertension (CMS/HCC)- Primary Unspecified [...] esophagitis without hemorrhage documented in this encounter [facility] HealthcareEvaluation note* Diagnosis Primary hypertension (CMS/HCC)- [...] of unspecified site documented in this encounter [facility] HealthcareHistory general Narrative - ReportedNort [employer] Other History general Narrative - Reported* Type [...] BLOOD PRESSURE WAS 60/40 , DEHYDRATION 04/2021 [employer] Other History general Narrative - Reported* Type [...] BLOOD PRESSURE WAS 60/40 , DEHYDRATION 04/2021 [employer] Other History general Narrative - Reported* Type [...] BLOOD PRESSURE WAS 60/40 , DEHYDRATION 04/2021 [employer] Other Hospital course Narrative No data available for this section [facility] Progress note No data available for this section [facility] Tweet Category Summary Purpose Family History Relationship Condition Age [...] disease) stage 3, GFR 30-59 ml/min Hyperlipidemia [id number] Hyperuricemia Hypomagnesemia Secondary hyperparathyroidism Solitary kidney, acquired Additional Source Comments REASON FOR VISIT (unrecogniz ed section and content) Reason Comments Follow-up [facility] er f/up URI Reason Onset Date Comments Med Refill 03/27/2024 Reason Onset Date Comments Med Refill 03/19/2024 Reason Comments Nasal Congestion Ankle Pain Injury 2 weeks ago w ith ankle CKD and HTNCKD (unrecognized sect ion and content) No Status Records FoundNo Status Records FoundNo Status Records Found INFORMATION SOURCE (unrecogn ized section and content) DATE CREATED AUTHOR 11/12/2022 [facility] DATE CREATED AUTHOR AUTHOR'S ORGANIZ ATION 01/19/2024 [facility] DATE CREATED AUTHOR AUTHOR'S ORGANIZ ATION 04/25/2024 [facility] Care Teams (unrecognized sec tion and content) [...] October 13, 2023 End: October 13, 2023 [employer] Relationship Specialty Start Date End Date Shaikh Gagnon MD [address] [place] [address] PCP - [employer] 06/06/23 Rm Rainey MD [address] [place] [address] PCP - General Family Medicine 01/16/24 Mignon Rodriguez NP [address] [place] [address] Nurse Practitioner Family Medicine 01/16/24 [employer] Relationship Specialty Start Date End Date Shaikh Gagnon MD [address] [place] [phone] PCP - [employer] 06/06/23 Rm Rainey MD [address] [place] [phone] PCP - General Family Medicine 01/16/24 Mignon Rodriguez NP [address] [place] [address] Nurse Practitioner Family Medicine 01/16/24 [employer] Relationship Specialty Start Date End Date Shaikh Gagnon MD [address] [place] [phone] PCP - [employer] 06/06/23 Rm Rainey MD [address] [place] [phone] PCP - General Family Medicine 01/16/24 Mignon Rodriguez [employer] [address] [place] [address] Nurse Practitioner Family Medicine 01/16/24 [employer] Relationship Specialty Start Date End Date Shaikh Gagnon MD [address] [place] [phone] PCP - [employer] 06/06/23 Rm Rainey MD [address] [place] [phone] PCP - General Family Medicine 01/16/24 Mignon Rodriguez NP [address] [place] [address] Nurse Practitioner Family Medicine 01/16/24 [employer] Relationship Specialty Start Date End Date Shaikh Gagnon MD [address] [place] [phone] PCP - [employer] 06/06/23 Rm Rainey MD [address] [place] [phone] PCP - General Family Medicine 01/16/24 Mignon Rodriguez NP [address] [place] [address] Nurse Practitioner Family Medicine 01/16/24 [employer] Relationship Specialty Start Date End Date Shaikh Gagnon MD [address] [place] [phone] PCP - [employer] 06/06/23 Unallocated, Jyoti Pink MD [address] [place] [address] PCP - General Family Medicine 03/20/24 Mignon Rodriguez NP [address] [place] [address] Nurse Practitioner Family Medicine 01/16/24 [employer] Relationship Specialty Start Date End Date Shaikh Gagnon MD [address] [place] [phone] PCP - [employer] 06/06/23 Rm Rainey MD [address] [place] [phone] PCP - General Family Medicine 04/05/24 Mignon Rodriguez, [employer] [address] [place] [address] Nurse Practitioner Family Medicine 01/16/24 [employer] Relationship Specialty Start Date End Date Shaikh Gagnon MD [address] [place] [address] PCP - [employer] 06/06/23 Rm Rainey MD [address] [place] [phone] PCP - General Family Medicine 04/05/24 Mignon Rodriguez, [employer] [address] [place] [address] Nurse Practitioner Family Medicine 01/16/24 [employer] Relationship Specialty Start Date End Date Shaikh Gagnon MD [address] [place] [phone] PCP - [employer] 06/06/23 Rm Rainey MD [address] [place] [phone] PCP - General Family Medicine 04/05/24 Mignon Rodriguez NP [address] [place], [place] [address] [address] Nurse Practitioner Family Medicine 01/16/24 Goals (unrecognized [...] BE BASED ON THE PRIMARY CLINICAL RECORDS. [employer] provides no warranty or guarantee of the accuracy or completeness of information in this document.
[2024-05-08 06:55] LABS: Basophils Percent Auto 0.4 % (0.2-2.0); Eosinophils Percent Auto 0.2 % (0.9-7.0); Hematocrit 35.8 % (42.0-54.0); Hemoglobin 11.6 g/dL (14.0-18.0); Immature Granulocytes Abs Auto 0.05 10^3/uL (0.00-0.03); Immature Granulocytes Pct Auto 0.5 % (0.0-0.5); Lymphocytes Absolute Auto 2.2 10^3/uL (1.2-3.8); Lymphocytes Percent Auto 22.5 % (20.5-60.0); Mean Corpuscular HGB Conc 32.4 g/dL (29.9-35.2); Mean Corpuscular Hemoglobin 31.8 pg (25.9-34.0); Mean Corpuscular Volume 98.1 fL (80.0-94.0); Monocytes Absolute Auto 0.8 10^3/uL (0.3-0.8); Monocytes Percent Auto 7.9 % (1.7-12.0); Neutrophils Absolute Auto 6.8 10^3/uL (1.4-6.5); Neutrophils Percent Auto 68.5 % (43.0-75.0); Platelet Count 162 10^3/uL (150-450); Red Blood Count 3.65 10^6/uL (4.70-6.10); Red Cell Distribution Width 14.7 % (11.0-15.0)
[2024-05-08 07:12] LABS: Alanine Aminotransferase 41 U/L (16-63); Albumin Globulin Ratio 0.9; Albumin Level 2.7 g/dL (3.4-5.0); Alkaline Phosphatase 46 U/L (46-116); Anion Gap 16.4; Aspartate Amino Transferase 68 U/L (15-37); Bilirubin Total 0.3 mg/dL (0.2-1.0); Calcium 7.9 mg/dL (8.5-10.1); Carbon Dioxide 21.7 mmol/L (21.0-32.0); Chloride 110 mmol/L (98-107); Estimated GFR (African America 44 (>=60 mL/min/1.73m^2); Estimated GFR (Non-African Ame 36 (>=60 mL/min/1.73m^2); Globulin 3.1 g/dL; Glucose 124 mg/dL (74-106); Magnesium 1.9 mg/dL (1.8-2.4); Potassium 4.1 mmol/L (3.5-5.1); Sodium 144 mmol/L (136-145); Total Protein 5.8 g/dL (6.4-8.2)
--- NOTE | 2024-05-08 07:53 | CA_ITS ---
Patient Name: ABBEY IRVING MR#: [id number] : 1955 Exam Date: 05/08/2024 Ordering Doctor: SHAIKH Albert QUINTEROS . ECHOCARDIOGRAM REPORT PROCEDURE: CA ECHO DOPPLER COMPLETE INDICATIONS: chest pain COMPARISON: None. DESCRIPTION: COMPLETE ECHOCARDIOGRAM Real-time transthoracic echocardiography with 2D, M-mode, spectral and color flow Doppler performed. QUALITY: Technical quality was good. LEFT VENTRICLE: Normal chamber size. Thickened septal wall. Global left ventricular systolic function is normal. LV EF: Estimated left ventricular ejection fraction is 65-70 %. DIASTOLIC: Normal diastolic function. ATRIAL SEPTUM: LEFT ATRIUM: Mild dilatation. RIGHT ATRIUM: Mild dilatation. RIGHT VENTRICLE: Normal chamber size. Normal right ventricular systolic function. TRICUSPID VALVE: Normal mobility and thickness. No stenosis with trivial regurgitation. No evidence of pulmonary hypertension. RVSP 27 mmHg MITRAL VALVE: Normal mobility and thickness. No evidence of mitral valve stenosis. There is no mitral annular calcification. Trivial mitral regurgitation. AORTIC VALVE: Normal trileaflet appearance. No visible sclerosis. Normal leaflet mobility. No evidence of aortic valve stenosis. No aortic regurgitation. AORTIC ROOT: Normal diameter and appearance. PULMONIC VALVE: Normal thickness and mobility. No stenosis. No regurgitation. PERICARDIUM: No evidence of pericardial effusion. IVC: Collapses with inspirations. Mild dilatation measuring 2.3cm PLEURA: CONCLUSION: 1. Normal left ventricular size and systolic function. Estimated LVEF is 65 to 70%. 2. Normal right ventricular size and systolic function. 3. Normal diastolic function. 4. No significant valvular dysfunction. Adult Echocardiography Procedure Report Left Ventricle LVEDD (3.7 - 5.6 cm): 5.08 cm LVESD (2.2 - 4.0 cm): 3.74 cm LVIVS thickness (0.6 - 1.2 cm): 1.40 cm LVPW thickness (0.5 - 1.0 cm): 1.13 cm e': 0.13 m/s E - e': 9.09 LVOT Max Gradient: 3.59 mm[Hg] LVOT Area (cm2): 0.95 m/s Peak Velocity (LVOT): 0.95 m/s Mean Velocity (LVOT): 0.65 m/s LVOT Diameter 2.48 cm Left Ventricular Ejection Fraction: 65-70 % Left Atrium LA Volume Index (2D A2C): 45.81 ml/m2 Left Atrium Systolic Dimension: 4.37 cm Mitral Valve MV E to A Ratio: 0.98 Mitral Valve A-Wave Peak Velocity: 1.23 m/s Mitral Valve E-Wave Peak Velocity: 1.21 m/s Right Ventricle RV Internal Diastolic Dimension: 3.60 cm Aorta AO Root Diam: 3.77 cm Ascending Ao Diam: 3.43 cm Aortic Valve AoV Area (Peak Wil): 3.33 cm2, 3.33 cm2 AoV Area (VTI): 3.05 cm2, 3.10 cm2 Peak Velocity(Antegrade Flow): 1.37 m/s, 1.37 m/s Peak Gradient(Antegrade Flow): 7.50 mm[Hg], 7.50 mm[Hg] Mean Velocity(Antegrade Flow): 0.95 m/s, 0.98 m/s Mean Gradient(Antegrade Flow): 4.18 mm[Hg], 4.34 mm[Hg] Velocity Time Integral: 30.53 cm, 31.54 cm Tricuspid Valve Peak Velocity (Regurgitant Flow): 2.18 m/s Pulmonic Valve Peak Velocity: 0.98 m/s Peak Gradient: 3.55 mm[Hg], 4.18 mm[Hg] Right Atrium Right Atrium Systolic Pressure: 73.28 ml, 73.28 ml Dictated by: Ángel Bradford M.D. on 05/08/2024 at 20:52 Approved by: Ángel Bradford M.D. on 05/08/2024 at 20:56
[2024-05-08 08:35] LABS: Troponin I High Sensitivity 11.4 pg/mL (4.0-76.1)
[2024-05-08] MEDS: THIAMINE MONONITRATE (VIT B1) 100 MG TABLET PO (08:49)
[2024-05-08] MEDS: ATORVASTATIN CALCIUM 40 MG TABLET PO (08:49)
[2024-05-08] MEDS: TAMSULOSIN HCL 0.4 MG CAPSULE PO (08:49)
[2024-05-08] MEDS: METOPROLOL TARTRATE 25 MG TABLET PO ×2 (08:49→21:27)
[2024-05-08] MEDS: ALLOPURINOL 100 MG TABLET PO (08:49)
[2024-05-08] MEDS: OMEPRAZOLE 40 MG CAPSULE.DR PO (08:49)
[2024-05-08] MEDS: FLUTICASONE PROPIONATE 50 MCG NASAL SPRAY 1 SPRAY NS (08:49)
[2024-05-08] MEDS: IPRATROPIUM/ALBUTEROL SULFATE 3 ML AMPUL.NEB IH ×3 (10:45→20:00)
[2024-05-08] MEDS: BUDESONIDE 0.5 MG/2 ML AMPULE NEB IH ×2 (10:45→20:00)
--- NOTE | 2024-05-08 11:11 | CM.NOTE ---
Rounds made with Dr. Gagnon, pt drowsy but responds appropriately to questions. No discharge today. Pt lives at home with . Pt does have walker at home that he uses. Pt is able to perform all ADL's and denies any discharge needs.
[2024-05-08 12:13] LABS: Troponin I High Sensitivity 16.8 pg/mL (4.0-76.1)
--- NOTE | 2024-05-08 13:23 | P.HP_ITS ---
HPI H&P: HPI History of Present Illness Chief complaint: SINAN Narrative: 69 y o male was brought over to ED via EMS for midsternal chest pain. Patient was intoxicated on arrival with ETOH levels> 300 but reported to me that he had just double shot of [place]. He has hx of alcohol use disorder with frequent relapses. Regarding his chest pain, he reports burning chest pain in upper/middle chest. Pain is persistent, ongoing for a few weeks. No aggravating or alleviating factors reported by patient. EMS was called by his because he complained of chest pain to her. He He was bradycardic during EMS transport and was given IV atropine for it and full dose ASA for chest pain, suspected ACS. There is also report of possible Afib but I am unsure if thats truly the case or not. He has no prior hx Afib. Work up in ED revealed SINAN with serum cr of 2.26, for which he was given IVF and patient was admitted to r/o ACS and SINAN. At the time I evaluated him, he was still quite drowsy and seemed like he was intoxicated. He would answer my questions and then go back to sleep. He appeared comfortable and did not seem to be in any distress. He has severe COPD, chronic productive cough and chronic GUIDRY that seems to be at his baseline. Opioid HPI Opioid Management Most Recent Pain and Opioid Data: Last Pain Scale 6 09/06/23 14:05 09/06/23 Last Pain Assessment 05/08/24 13:18 Last ORT Total Score 6 05/08/24 08:09 05/08/24 Last ORT Risk Category Moderate Risk 05/08/24 08:09 05/08/24 Review of Systems ROS Narrative Limited ROS but negative except as mentioned in HPI PFSH PFSH Medical History (Updated 05/08/24 @ 13:35 by Shaikh Kalin MD) CKD (chronic kidney disease) stage 2, GFR 60-89 ml/min ?N18.2 - Chronic kidney disease, stage 2 (mild) (ICD-10) HLD (hyperlipidemia) ?E78.5 - Hyperlipidemia, unspecified (ICD-10) Hematemesis with nausea ?K92.0 - Hematemesis (ICD-10) Chronic back pain ?M54.9 - Dorsalgia, unspecified (ICD-10) ?G89.29 - Other chronic pain (ICD-10) Alcohol abuse, in remission ?F10.11 - Alcohol abuse, in remission (ICD-10) Type 2 diabetes mellitus ?E11.9 - Type 2 diabetes mellitus without complications (ICD-10) COPD (chronic obstructive pulmonary disease) ?J44.9 - Chronic obstructive pulmonary disease, unspecified (ICD-10) Sleep apnea ?G47.30 - Sleep apnea, unspecified (ICD-10) Hypertension ?I10 - Essential (primary) hypertension (ICD-10) 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) Hiatal hernia ?K44.9 - Diaphragmatic hernia without obstruction or gangrene (ICD-10) Inguinal hernia bilateral, non-recurrent ?K40.20 - Bilateral inguinal hernia, without obstruction or gangrene, not specified as recurrent (ICD-10) Influenza ?J11.1 - Influenza due to unidentified influenza virus with other respiratory manifestations (ICD-10) Giardia ?A07.1 - Giardiasis [lambliasis] (ICD-10) CMV (cytomegalovirus) ?B25.9 - Cytomegaloviral disease, unspecified (ICD-10) Rheumatic fever ?I00 - Rheumatic fever without heart involvement (ICD-10) Prostate cancer ?C61 - Malignant neoplasm of prostate (ICD-10) Surgical History [place] teeth extracted ?K08.409 - Partial loss of teeth, unspecified cause, unspecified class (ICD- 10) History of nephrectomy, left ?Z90.5 - Acquired absence of kidney (ICD-10) Family History (System 04/13/24 @ 09:45 by Farhana Chirinos) Other Family history of cancer Family history of diabetes mellitus Social History (Updated 05/08/24 @ 03:14 by Anabel Key RN) Within the past year, how often did you have a drink containing alcohol: 2-4 times a month Within the past year, how many standard drinks containing alcohol did you have on a typical day: 3 or 4 Within the past year, how often did you have six or more drinks on one occasion: less than monthly Total score: 3 Score interpretation: A score of 4 or more indicates drinking is likely to affect patient's safety. Smoking status: Current every day smoker Non-prescribed substance use: denies use Highest level of school completed/degree received: Bachelor's degree Are you now , , , , never or living with a partner: In a typical week, how many times do you talk on the telephone with family, fr iends, or neighbors: 3 or more times per week Little interest or pleasure in doing things: not at all Feeling down, depressed, or hopeless: not at all Feel stressed/tense/nervous/anxious/difficulty sleeping: to some extent Life stressors: other Life stressor details: HAS CANCER, CONCERNED THAT SHE MIGHT NOT HAVE A GOOD OUTCOME Do you think of yourself as: straight/heterosexual Gender Identity: male Meds Home Medications and Allergies Home Medications ?Medication ?Instructions ?Recorded ?Confirmed ?Type budesonide-formoterol HFA 160 1 inh inhalation Q12H 04/02/23 05/07/24 History mcg-4.5 mcg/actuation aerosol inhaler (Symbicort) losartan 50 mg tablet 50 mg PO DAILY 04/02/23 05/07/24 History metoprolol tartrate 25 mg tablet 25 mg PO Q12H 04/02/23 05/07/24 History tamsulosin 0.4 mg capsule 0.4 mg PO Q24H 04/02/23 05/07/24 History allopurinol 100 mg tablet 100 mg PO BID 04/12/24 05/08/24 History atorvastatin 40 mg tablet 40 mg PO QDAY 04/12/24 05/07/24 History furosemide 20 mg tablet 20 mg PO QDAY 04/12/24 05/07/24 History omeprazole 40 mg capsule,delayed 40 mg PO QDAY 04/12/24 05/07/24 History release fluticasone propionate 50 1 spray intranasal QDAY 05/07/24 05/07/24 History mcg/actuation nasal spray,suspension Allergies Allergy/AdvReac Type Severity Reaction Status Date / Time No Known Drug Allergies Allergy Verified 05/07/24 22:27 Exam Constitutional Vital Signs, click to edit/add: Last Vital Signs Temp 98.3 F 05/08/24 13:18 Pulse 81 05/08/24 13:18 Resp 20 05/08/24 13:18 BP 158/84 H 05/08/24 13:18 Pulse Ox 90 L 05/08/24 13:18 O2 Del Method Room Air 05/08/24 13:18 General appearance: disheveled, appears older than stated age and odor of alcohol detected Nutritional appearance: obese Other: Drowsy/intoxicated. HENMT Common normals: normocephalic and head/scalp atraumatic Respiratory Common normals: normal respiratory effort and no use of accessory muscles Effort & inspection: able to speak in complete sentences Other: Coarse breath sounds, faint exp wheezing. No resp distress. Cardio Common normals: regular rate, regular rhythm, S1 normal heart sound and S2 normal heart sound GI Common normals: Normal to inspection, nondistended, normoactive bowel sounds present, soft to palpation, non-tender and no hepatosplenomegaly Extremity Common normals: normal to inspection and full ROM Neuro Common normals: oriented x3, moves all extremities and no focal motor deficits Sensorium/orientation: somnolent Psych Common normals: denies homicidal ideation and denies suicidal ideation Results Labs Labs: Short CBC 05/07/24 05/08/24 Range/Units 22:20 06:13 WBC 14.3 H 10.0 (4.0-11.0) 10^3/uL Hgb 13.7 L 11.6 L (14.0-18.0) g/dL Hct 41.4 L 35.8 L (42.0-54.0) % Plt Count 216 162 (150-450) 10^3/uL BMP 05/07/24 05/08/24 22:20 06:13 Sodium 140 144 Potassium 4.7 4.1 Chloride 104 110 H Carbon Dioxide 23.5 21.7 BUN 27.0 H 32.0 H Creatinine 2.26 H 1.88 H Glucose 147 H 124 H Calcium 9.3 7.9 L Liver Function 05/07/24 05/08/24 Range/Units 22:20 06:13 Total Bilirubin 0.4 0.3 (0.2-1.0) mg/dL AST 32 68 H (15-37) U/L ALT 40 41 (16-63) U/L Alkaline Phosphatase 55 46 (46-116) U/L Albumin 3.5 2.7 L (3.4-5.0) g/dL Assessment and Plan Assessment and Plan (1) Alcohol intoxication: Assessment and Plan: Monitor for alcohol withdrawal. Counseled on risks associated with excessive alcohol use. Check UDS to r/o concomitant drug use. Qualifiers: Complication of substance-induced condition: uncomplicated Qualified Code(s): F10.920 - Alcohol use, unspecified with intoxication, uncomplicated (2) SINAN (acute kidney injury): Assessment and Plan: Serum cr at baseline is around 1-1.3. Presented with cr of 2.2, trended down to 1.8 Likely pre renal. on IVF. Monitor UO, serum cr. (3) Chest pain: Assessment and Plan: Likely non cardiac, possibly musculoskeletal from chronic cough/COPD Trop x 3 negative. ECHO to assess cardiac structure. Qualifiers: Chest pain type: unspecified Qualified Code(s): R07.9 - Chest pain, unspecified (4) COPD (chronic obstructive pulmonary disease): Assessment and Plan: On RA, mild exp wheezing. C/w home medications. Qualifiers: COPD type: emphysema Emphysema type: unspecified Qualified Code(s): J43.9 - Emphysema, unspecified (5) Hypertension: Assessment and Plan: Was hypotensive in the morning with BP as low as 80/50 Received one litre bolus Monitor BP closely. losartan on hold due to SINAN Qualifiers: Hypertension type: primary hypertension Qualified Code(s): I10 - Essential (primary) hypertension (6) CKD (chronic kidney disease) stage 2, GFR 60-89 ml/min: Assessment and Plan: Presented with SINAN, on IVF. (7) HLD (hyperlipidemia): Assessment and Plan: C/w lipitor. Qualifiers: Hyperlipidemia type: unspecified Qualified Code(s): E78.5 - Hyperlipidemia, unspecified Plan Check ABG, urine drug screen. Patient still intoxicated - drowsy and barely wakes up. Continue to monitor. C/w IVF for SINAN. F/u ECHO to assess cardiac structure.
[2024-05-08 13:30] LABS: ABG PCO2 38.9 mmHg (35.0-45.0); Allen Test POSITIVE (POSITIVE); Base Excess ABG -5.6 mmol/L (-2.0-2.0); HCO3 ABG 20.4 mmol/L (22.0-26.0); O2 Mode RA; PO2 ABG 63.6 mmHg (80.0-100.0); Puncture Site RR; pH ABG 7.327 (7.350-7.450)
--- NOTE | 2024-05-08 13:51 | CM.NOTE ---
Medicare Outpatient Observation Notice discussed with pt, pt verbalizes understanding and signs paper. Original given to pt and copy placed on pt's chart.
--- NOTE | 2024-05-08 14:08 | CT_ITS ---
[address] [address] Patient Name: ABBEY IRVING MRN: [id number] date: 1955 Sex: M Assigned Patient Location: [place] Current Patient Location: [place] Accession/Order Number: [id number] Exam Date: 05/08/2024 14:20 Report Date: 05/08/2024 15:34 At the request of: SHAIKH ALDAIR Procedure: CT chest wo con EXAMINATION: CT chest wo con HISTORY: chest wall pain/cough/SOB COMPARISON: No relevant comparison available. TECHNIQUE: Multi-planar CT images were created with IV contrast. Axial, Coronal, and Sagittal images. Dose reduction techniques were achieved by using automated exposure control and/or adjustment of mA and/or kV according to patient size and/or use of iterative reconstruction technique. FINDINGS: LUNGS: Mild centrilobular and paraseptal emphysema with an upper lobe predominance. Partial consolidation of both lower lobes with presence of air bronchograms and mild peribronchial thickening. PLEURA: No mass, effusion, or pneumothorax. VASCULATURE: No abnormality. JAKE: No mass or adenopathy. MEDIASTINUM: No mass or adenopathy. CARDIAC: No enlargement or pericardial effusion Coronary arteries: Mild calcifications AORTA: No aortic aneurysm. Moderate calcific atherosclerosis CHEST WALL: No mass or axillary adenopathy. BONES: No bone lesion or fracture. Moderate to severe degenerative change LIMITED ABDOMEN: No suspicious findings. Limited images of the upper abdomen. OTHER: Negative. CT/CT chest wo con IMPRESSION: Bibasilar infiltrates, atelectasis versus pneumonia Electronically authenticated by: DANISHA CHANG Date: 05/08/2024 15:34
[2024-05-08] MEDS: AZITHROMYCIN 250 MG TABLET 500 MG PO (14:39)
[2024-05-08] MEDS: ASPIRIN 81 MG TAB.CHEW PO (14:39)
[2024-05-08 14:56] LABS: Amphetamine Screen Urine NEGATIVE (NEGATIVE); Barbiturates Screen Urine NEGATIVE (NEGATIVE); Benzodiazepines Screen Urine POSITIVE (NEGATIVE); Buprenorphine Screen Urine NEGATIVE (NEGATIVE); Cannabinoid Screen Urine NEGATIVE (NEGATIVE); Cocaine Screen Urine NEGATIVE (NEGATIVE); Methadone Screen Urine NEGATIVE (NEGATIVE); Methamphetamines Screen Urine NEGATIVE (NEGATIVE); Opiate Screen Urine NEGATIVE (NEGATIVE); Oxycodone Screen Urine NEGATIVE (NEGATIVE); Phencyclidine Screen Urine NEGATIVE (NEGATIVE); Tricyclic Antidepressant Urine NEGATIVE (NEGATIVE)
[2024-05-09] VITALS (10 sets, daily range): BP systolic 138–160; BP diastolic 68–85; PULSE 75–91; TEMP 36.3–36.7; O2SAT 90–93
[2024-05-09] MEDS: HEPARIN SODIUM (PORCINE) 5,000 UNIT/ML VIAL 5000 UNIT SUBQ ×2 (01:39→09:12)
[2024-05-09] MEDS: IPRATROPIUM/ALBUTEROL SULFATE 3 ML AMPUL.NEB IH ×2 (05:22→10:28)
[2024-05-09] MEDS: 0.9 % SODIUM CHLORIDE 1,000 ML 125 ML IV (05:27)
[2024-05-09 06:40] LABS: Alanine Aminotransferase 41 U/L (16-63); Albumin Level 2.7 g/dL (3.4-5.0); Alkaline Phosphatase 46 U/L (46-116); Anion Gap 11.9; Aspartate Amino Transferase 74 U/L (15-37); BUN Creatinine Ratio 17.6; Bilirubin Total 1.2 mg/dL (0.2-1.0); Calcium 8.3 mg/dL (8.5-10.1); Chloride 112 mmol/L (98-107); Estimated GFR (African America >60 (>=60 mL/min/1.73m^2); Estimated GFR (Non-African Ame >60 (>=60 mL/min/1.73m^2); Globulin 2.8 g/dL; Glucose 89 mg/dL (74-106); Potassium 3.9 mmol/L (3.5-5.1); Sodium 144 mmol/L (136-145); Total Protein 5.5 g/dL (6.4-8.2)
[2024-05-09] MEDS: ASPIRIN 81 MG TAB.CHEW PO (09:11)
[2024-05-09] MEDS: THIAMINE MONONITRATE (VIT B1) 100 MG TABLET PO (09:11)
[2024-05-09] MEDS: FOLIC ACID 1 MG TABLET PO (09:11)
[2024-05-09] MEDS: TAMSULOSIN HCL 0.4 MG CAPSULE PO (09:11)
[2024-05-09] MEDS: AZITHROMYCIN 250 MG TABLET 500 MG PO (09:11)
[2024-05-09] MEDS: ALLOPURINOL 100 MG TABLET PO (09:11)
[2024-05-09] MEDS: METOPROLOL TARTRATE 25 MG TABLET PO (09:11)
[2024-05-09] MEDS: OMEPRAZOLE 40 MG CAPSULE.DR PO (09:11)
[2024-05-09] MEDS: ATORVASTATIN CALCIUM 40 MG TABLET PO (09:11)
[2024-05-09] MEDS: MULTIVITAMIN TABLET 1 TAB PO (09:11)
[2024-05-09] MEDS: FLUTICASONE PROPIONATE 50 MCG NASAL SPRAY 1 SPRAY NS (09:12)
--- NOTE | 2024-05-09 10:10 | PM.DS1 ---
DS: Providers Provider Date of admission: 05/08/24 01:41 Primary care physician: NICOLLE LINK Admitting clinician: Shaikh Kalin Attending physician on admission: Shaikh Kalin Attending physician on discharge: Shaikh Kalin Discharging clinician: Shaikh Kalin Anticipated date of discharge: 05/09/24 DS: Diagnosis Discharge Diagnosis (1) Alcohol intoxication: Qualifiers: Complication of substance-induced condition: uncomplicated Qualified Code(s): F10.920 - Alcohol use, unspecified with intoxication, uncomplicated (2) SINAN (acute kidney injury): (3) Chest pain: Qualifiers: Chest pain type: unspecified Qualified Code(s): R07.9 - Chest pain, unspecified (4) COPD (chronic obstructive pulmonary disease): Qualifiers: COPD type: emphysema Emphysema type: unspecified Qualified Code(s): J43.9 - Emphysema, unspecified (5) Hypertension: Qualifiers: Hypertension type: primary hypertension Qualified Code(s): I10 - Essential (primary) hypertension (6) CKD (chronic kidney disease) stage 2, GFR 60-89 ml/min: (7) HLD (hyperlipidemia): Qualifiers: Hyperlipidemia type: unspecified Qualified Code(s): E78.5 - Hyperlipidemia, unspecified (8) Bilateral pneumonia: Qualifiers: Pneumonia type: due to unspecified organism Lung location: lower lobe of lung Qualified Code(s): J18.9 - Pneumonia, unspecified organism (9) COPD exacerbation: DS: Summary Hospital Course Hospital Course: 69 y o male was brought over to ED via EMS for midsternal chest pain. Patient was intoxicated on arrival with ETOH levels> 300 but reported to me that he had just double shot of [employer]. He has hx of alcohol use disorder with frequent relapses. Regarding his chest pain, he reports burning chest pain in upper/middle chest. Pain is persistent, ongoing for a few weeks. Patient also reported generalized malaise, aches, productive cough. Pain is pleuritic in nature and worsens with cough and inspiration. No aggravating or alleviating factors reported by patient. EMS was called by his because he complained of chest pain to her. He He was bradycardic during EMS transport and was given IV atropine for it and full dose ASA for chest pain, suspected ACS. There is also report of possible Afib but I am unsure if thats truly the case or not. He has no prior hx Afib. Work up in ED revealed SINAN with serum cr of 2.26, for which he was given IVF and patient was admitted to r/o ACS and SINAN. His UDS was also positive for benzodiazepines. His EKG did not reveal any sig abnormality. His cardiac enzymes are negative. ECHO did not reveal any sig abnormality. CT chest was ordered to ascertain the underlying etiology and patient was found to have bibasilar PNA. He also has mild COPD exacerbation with increased sputum and cough. His CP is likely due to PNA, COPD and chronic cough. Patient's renal function improved with IV hydration and back to his baseline now. He will be discharged home on Oral Levaquin, PO prednisone. Hold losartan/lasix for a week to allow renal function to fully recover. He was instructed to f/u with PCP in one week. Given that there were reports of possible Afib by EMS, I will discharge him with a Holter Monitor. He certainly has risk factors for it. Status at Discharge Functional status at discharge: independent ambulation Overall status at discharge: patient is back to baseline Time Spent with Patient Time attestation: Total time spent providing and/or coordinating discharge services: Time spent: greater than 30 minutes Exam Constitutional Vital Signs, click to edit/add: Last Vital Signs Temp 97.4 F L 05/09/24 08:52 Pulse 76 05/09/24 09:46 Resp 18 05/09/24 08:52 BP 160/84 H 05/09/24 08:52 Pulse Ox 93 L 05/09/24 08:52 O2 Del Method Room Air 05/09/24 08:52 General appearance: cooperative, comfortable, appears older than stated age and odor of alcohol detected Nutritional appearance: obese Other: Drowsy/intoxicated. HENMT Common normals: normocephalic and head/scalp atraumatic Respiratory Common normals: normal respiratory effort and no use of accessory muscles Effort & inspection: able to speak in complete sentences Other: Coarse breath sounds, faint exp wheezing. No resp distress. Cardio Common normals: regular rate, regular rhythm, S1 normal heart sound and S2 normal heart sound GI Common normals: Normal to inspection, nondistended, normoactive bowel sounds present, soft to palpation, non-tender and no hepatosplenomegaly Extremity Common normals: normal to inspection and full ROM Neuro Common normals: oriented x3, moves all extremities and no focal motor deficits Psych Common normals: denies homicidal ideation and denies suicidal ideation DS: Data Data Completed and Pending Labs on day of discharge: Labs from last 24 hours 05/09/24 05/08/24 05/08/24 05:58 14:00 13:15 Puncture Site Rr ABG pH 7.327 L ABG pCO2 38.9 ABG pO2 63.6 L ABG HCO3 20.4 L ABG O2 Saturation 92.0 ABG Base Excess -5.6 L Jose Alberto Test Positive Sodium 144 Potassium 3.9 Chloride 112 H Carbon Dioxide 24.0 Anion Gap 11.9 BUN 21.0 H Creatinine 1.19 Est GFR ( Amer) >60 Est GFR (Non-Af Amer) >60 BUN/Creatinine Ratio 17.6 Glucose 89 Calcium 8.3 L Total Bilirubin 1.2 H AST 74 H ALT 41 Alkaline Phosphatase 46 Troponin I High Sens Total Protein 5.5 L Albumin 2.7 L Globulin 2.8 Albumin/Globulin Ratio 1.0 Urine Opiates Screen Negative Ur Buprenorphine Scrn Negative Ur Oxycodone Screen Negative Urine Methadone Screen Negative Ur Barbiturates Screen Negative U Tricyclic Antidepress Negative Ur Phencyclidine Scrn Negative Ur Amphetamines Screen Negative U Methamphetamines Scrn Negative U Benzodiazepines Scrn Positive A Urine Cocaine Screen Negative U Cannabinoids Screen Negative 05/08/24 11:03 Puncture Site ABG pH ABG pCO2 ABG pO2 ABG HCO3 ABG O2 Saturation ABG Base Excess Jose Alberto Test Sodium Potassium Chloride Carbon Dioxide Anion Gap BUN Creatinine Est GFR ( Amer) Est GFR (Non-Af Amer) BUN/Creatinine Ratio Glucose Calcium Total Bilirubin AST ALT Alkaline Phosphatase Troponin I High Sens 16.8 Total Protein Albumin Globulin Albumin/Globulin Ratio Urine Opiates Screen Ur Buprenorphine Scrn Ur Oxycodone Screen Urine Methadone Screen Ur Barbiturates Screen U Tricyclic Antidepress Ur Phencyclidine Scrn Ur Amphetamines Screen U Methamphetamines Scrn U Benzodiazepines Scrn Urine Cocaine Screen U Cannabinoids Screen Discharge Plan Discharge Disposition: Home, Self-Care Condition: Good Discharge Medications: New levofloxacin 750 mg tablet 750 mg PO DAILY Qty: 7 0RF prednisone 20 mg tablet 20 mg PO BID Qty: 10 0RF Continued budesonide-formoterol [Symbicort] 160-4.5 mcg/actuation HFA aerosol inhaler 1 inh INHALATION Q12H metoprolol tartrate 25 mg tablet 25 mg PO Q12H tamsulosin 0.4 mg capsule 0.4 mg PO Q24H atorvastatin 40 mg tablet 40 mg PO QDAY allopurinol 100 mg tablet 100 mg PO BID omeprazole 40 mg capsule,delayed release(DR/EC) 40 mg PO QDAY fluticasone propionate 50 mcg/actuation spray,suspension 1 spray INTRANASAL QDAY Held losartan 50 mg tablet 50 mg PO DAILY Hold Instructions: Resume on 05/14/24. furosemide 20 mg tablet 20 mg PO QDAY Hold Instructions: Resume on 05/14/24. Activity: increase activity as tolerated Diet: advance to your usual diet Print Language: Cambodian Forms: Portal Instructions Follow Up Appointments: f/u with PCP in one week
[2024-05-09] MEDS: BUDESONIDE 0.5 MG/2 ML AMPULE NEB IH (10:29)
[2024-05-09] MEDS: LEVOFLOXACIN IN DEXTROSE 5 % 750 MG/150 ML PREMIX 100 MG IV (11:30)
--- NOTE | 2024-05-09 11:40 | SWNOTE1 ---
SW spoke to nurse and pt would like to discuss home health, SW met with pt and discussed discharge plans. Pt would like HH services, some PT and a nurse. PATRICIA let pt know that HH does not come everyday, usually a few times a week. Pt voiced that is all he needs. Pt's has cancer and they are struggling. Pt also spoke about a director social from [facility] assisting them with a car and he has spoken to [facility] about his furnace. They are currently using space heaters in the trailer. He voiced it is keeping them warm at this time. PATRICIA advised he needs to continue to follow up with [facility] to check on furnace. He voiced understanding. PATRICIA advised pt that SW will add a director social to as well so they can assist with more resources in the home as well. Pt has no prefernece on company and did not want to look at medicare.gov 5 star rating list. Pt just wants someone in network with his insurance. PATRICIA sent referral to [address] Referral sent to [address] Referral included face sheet, ED note, H&P, provider notes, case management report, therapy notes if he was evaluated..
--- NOTE | 2024-05-09 12:06 | SWNOTE1 ---
SW did go back and address pt's drinking. Pt voiced he has been going to for 3 years now. He stated he only drinks maybe 1x a week. Pt refuses any resources at this time. He stated he stays in touch with people from and has resources if needed.
--- NOTE | 2024-05-09 12:11 | CM.NOTE ---
Rounds made with Dr. Gagnon. Dr. Gagnon discussed CT scan results and treatment plan with antibiotics and steroids and need for Marco to stop smoking. Marco verbalized understanding. Plan is for discharge today and to followup with PCP in 1 week
--- NOTE | 2024-05-11 11:52 | CM.DCFOLLOWU ---
05/11- 2nd attempt. No answer
--- NOTE | 2024-05-14 13:42 | CM.DCFOLLOWU ---
05/14- 2nd attempt. No answer
== END 2024-05-09 12:51 | disposition home health service (06) ==
LOC: ER 23:51 → MS 05-08 06:21
PROVIDERS: Registered Nurse; Admitting Provider Internal Medicine; Emergency Provider Emergency Medicine; Visit Provider Internal Medicine
DX: N17.9 Acute kidney failure, unspecified (principal); J18.9 Pneumonia, unspecified organism; F10.920 Alcohol use, unspecified with intoxication, uncomplicated; R07.9 Chest pain, unspecified; J43.9 Emphysema, unspecified; I12.9 Hypertensive chronic kidney disease with stage 1 through stage 4 chronic kidney disease, or unspecified chronic kidney disease; N18.2 Chronic kidney disease, stage 2 (mild); E78.5 Hyperlipidemia, unspecified; F17.200 Nicotine dependence, unspecified, uncomplicated; Y90.8 Blood alcohol level of 240 mg/100 ml or more; Z79.899 Other long term (current) drug therapy
CPT/HCPCS: 36415; 36600; 71045; 71250; 80053; 80307; 80320; 82805; 83735; 84443; 84484; 85025; 85610; 85730; 93005; 93242; 93306; 94640; 94761; 96365; 96372; 96375; 99283; 99406; G0378; J1644; J2405

== ENCOUNTER 2024-05-16 21:12 | Observation (INO) | payer MEDICARE, SELFPAY ==
[2024-05-16] VITALS (18 sets, daily range): BP systolic 100–145; BP diastolic 51–73; PULSE 52–61; TEMP 36.6; O2SAT 93–97; BMI 33.0
--- OUTSIDE RECORDS SUMMARY | 2024-05-16 21:21 | XMS_ITS | CCD ---
Author Organization [facility] Inform ion [facility] Care Team Providers Care Color Blender Name Role Phone Jose Victoria Unavailable DR WILL HOLLINS Consulting Unavailable COOK, PEGGY Attending Unavailable [...] Admitting Unavailable SHAIKH GAGNON Primary Care Physician Will HOLLINS Attending Unavailable Will HOLLINS Attending Unavailable Will HOLLINS Attending Unavailable SHAIKH GAGNON Primary Care Unavailable Shaikh Gagnon MD Unavailable Rm Rainey MD Primary Care Provider [phone] Jennifer LUCERO, Nicolle Unavailable [phone] Unallocated , Lorenzos Provider Primary Care Provi phoebe Rm Rainey MD Primary Care Provider SHAIKH GAGNON Attending Unavailable SHAIKH GAGNON Attending Unavailable SHAIKH GAGNON Attending Unavailable SHAIKH GAGNON Attending Unavailable NICOLLE RODRIGUEZ Attending Unavailabl e NICOLLE RODRIGUEZ Attending Unavailabl e Allergies Allergy Classification Reported Allergen(s) Allergy Type Date of Onset Reaction(s) Facility (1 source) No Known Medication Allergies; Translations: [No Known Medication Allergies] Propensity to adverse reactions (disorder) [facility] Repository Medications Current Medications Medication Drug Class(es) Dates Sig (Normalized) Sig (Original) [id number] 200 actuat albuterol 0.09 mg/actuat metered dose [...] 05-10-2023 05-10-2023 Other aftercare (1 source) 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 [facility] INFLUENZA A AND B AGon 1 INFLUENZA VIRUS A ANTIGEN Negative [facility] Comment on above: Negative for Flu A p rotein antigen. Infection due to Flu A cannot be ruled out. Flu A antigen in the sample may be below the detection limit of the test. INFLUENZA VIRUS B ANTIGEN Negative [facility] Comment on above: Negative for Flu B p rotein antigen. Infection due to Flu B cannot be ruled out. Flu B antigen in the sample may be below the detection limit of the test. 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 [address]- You Need to Schedule the Following Appointments Follow Up with Will HOLLINS MD, URL When: Where: [address] [place] [address]- Medications What How Much When Instructions Changed tamsulosin (tamsulosin 0.4 mg Cap) 1 Capsules By Mouth Every day Duration: 90 Days Pickup at [facility] Unchanged allopurinol (allopurinol 100 mg Tab) [...] physician if questions or concerns Pharmacy Information [facility]: [address] [place] [phone] Allergies No Known Medication Allergies Problems Ongoing [...] care pr (more content not included)... Normal [facility] Urology Office/Clinic Noteon 01-17-2024 Urology Office/Clinic Note [...] he had a Primitivo 7. Completed at [facility]. [1] S/p brachytherapy 03/24/11. PSA decreased which [...] Follow-up With When Contact Information GURVINDER HENDRICKSON, Will Day, URL [address] [place], [place] [id number]- Additional Instructions: 4 mos with PSA Patient Education Cancer Screening for Men ILaurel, personally scribed for Dr. Hollins on 01/17/2024 08:30:59. . Documentation recorded by the scribe, Laurel Bradley, accurately reflects the services(s) I performed and decisions made by me. Authenticated by Dr. Hollins on 01/17/2024 08:34:12. Portions of this record may have been created with voice recognition artificial intelligence software, specifically [employer], [employer] and or [employer]iona. Substitutions may have occurred due to the [...] Left nephrect (more content not included)... Normal [facility] Comment on above: Result Comment: Elec tronically Signed By: Will HOLLINS MD\.br\Date and Time Signed: 01/17/24 08:35 EDT\.br\Electronically Co-Signed By: Laurel Bradley\.br\Date and Time Co-Signed: 01/17/24 08:31 EDT ED Note-Physicianon 10-20-19 ED Note-Physician [id number] 0#1.00TIFF [facility] Lab Reportson 10-20-2023 Lab Reports [id number] 9#1.00TIFF [facility] Lab Reports [id number] 2#1.00TIFF [facility] RAD - CT Reporton 10-20-2023 RAD - CT Report [id number] 5#1.00TIFF [facility] Screenson 10-20-2023 Screens [id number] #1.00TIFF [facility] Ambulatory Visit Summaryon 0 10-17-2023 Ambulatory Visit Summary MARCO MUSTAFA :1955 Visit Date:10/17/2023 Ambulatory Visit Instructions Your Diagnosis Rising PSA following treatment for malignant neoplasm of prostate Personal history of prostate cancer BPH with obstruction/lower urinary tract symptoms Personal history of renal cell carcinoma Your Care Team Attending Physician - Will HOLLINS MD Primary Care Physician - FAWWAD [...] Tuesday 9:45 AM EDT With: GURVINDER HENDRICKSON, Will Day Where: [facility] Patient Educationon 10-17-19 Patient Education Oncology Prostate [...] to normal prostate cells (well differentiated). ? Lincoln 7: This indicates that the cancer cells [...] external be (more content not included)... Normal [facility] Urology Office/Clinic Noteon 10-17-2023 Urology Office/Clinic Note Chief Complaint 1 year follow up HPI Staff 1 year follow up w/PSA *Taking Flomax 0.4 mg qd S/P Lt Nephrectomy 2000 Pt was seen at [facility] on 09/06/23 due to left rib pain. BUN 36, Creatinine 1.09 10/04/23. BUN 26. Creatinine 1.33 09/06/23 CT SCAN 08/12/23 PSA: 10/26/19 - 0.05 08/10/21 - 0.05 10/11/22 - <0.13 09/30/23 - 0.90 Dysuria: denies pain or burning Incomplete bladder emptying: denies Hematuria: yes 6 weeks ago, went to [facility], vomiting blood Frequency: 3x a day Urgency: [...] with voice recognition artificial intelligence software, specifically [employer], [employer] and or [employer]iona. Substitutions may have occurred due to the inherent limitations of voice recognition and artificial intelligence software. 1. Rising PSA following treatment for malignant neoplasm of prostate (R97.21: Rising PSA following treatment for malignant neoplasm of prostate) PSA: 10/26/19 - 0.05 08/10/21 - 0.05 10/11/22 - <0.13 09/30/23 - 0.90 S/p brachytherapy 03/24/11. Pt believes he had a Lincoln 7. Completed at [facility]. Rise in PSA is concerning given pt [...] adenocarcinoma the prostate, previously treated at the [facility] with prostate brachytherapy now has a [...] dosage changes. Follow-up With When Contact Information Will HOLLINS MD, URL [address] [address]- Additional Instructions: 3 mos w/ PSA Patient Education Prostate Cancer ITala, personally scribed for Dr. Hollins on 10/17/2023 10:42:59. . Documentation recorded by the scribeTala, accurately reflects the services(s) I performed and decisions made by me. Authenticated by Dr. Hollins on 10/17/2023 10:47:47. Problem List/Past (more content not included)... Normal [facility] Comment on above: Result Comment: Elec tronically Signed By: Will HOLLINS MD\.br\Date and Time Signed: 10/17/23 10:50 EDT Automated epithelial cells c ount in urine sediment (number/area)on 10-04-2023 Epithelial cells Auto (Urine sed) [#/Area] NONE SEEN #/LPF NONE/RARE [facility] Automated leukocytes count i n urine sediment (number/area)on 10-04-2023 WBC Auto (Urine sed) [#/Area] NONE SEEN #/HPF 0-2 [facility] Automated urine specific gra vity by refractometryon 10-04-2023 Specific gravity Refractometry automated (U) [Rel density] 1.025 1.005-1.025 [facility] Bilirubin Auto test strip (U ) [Mass/Vol]on 10-04-2023 Bilirubin (U) [Mass/Vol] Negative NEGATIVE [facility] Casts typing in urine sedime nt by light microscopyon 10-04-2023 Casts LM Nom (Urine sed) NONE SEEN #/LPF NONE SEEN [facility] Color Auto (U)on 10-04-2023 Color (U) YELLOW YELLOW [facility] Erythrocyte distribution wid th Auto (RBC) [Ratio]on 10-04-2023 Erythrocyte distribution width (RBC) [Ratio] 13.5 % 11.0-15.0 [facility] Estimated glomerular filtrat ion rate (GFR) non- Americanon 10-04-2023 GFR/1.73 sq M.predicted among non-blacks MDRD (S/P/Bld) [Vol rate/Area] mL/min/{1.73_m2} >=60 [facility] Hematocrit Auto (Bld) [Volum e fraction]on 10-04-2023 Hematocrit (Bld) [Volume fraction] 38.9 % 42.0-54.0 [facility] Hemoglobin [Mass/volume] in Bloodon 10-04-2023 Hemoglobin (Bld) [Mass/Vol] 13.2 g/dL 14.0-18.0 [facility] Iron binding capacity [Mass/ volume] in Serum or Plasmaon 10-04-2023 Iron binding capacity [Mass/Vol] 274.0 ug/dL 250.0-450.0 [facility] Iron saturation [Mass Fracti on] in Serum or Plasmaon 10-04-2023 Iron saturation [Mass fraction] 29.2 % [facility] Ketones Auto test strip (U) [Mass/Vol]on 10-04-2023 Ketones (U) [Mass/Vol] Negative NEGATIVE [facility] Laboratory - Chemistry and C hemistry - challengeon 10-04-2023 Albumin [Mass/Vol] 3.6 g/dL 3.4-5.0 [facility] Calcium [Mass/Vol] 9.4 mg/dL 8.5-10.1 [facility] Chloride [Moles/Vol] 104 mmol/L 98-107 [facility] CO2 [Moles/Vol] 24.4 mmol/L 21.0-32.0 [facility] Creatinine [Mass/Vol] 1.09 mg/dL 0.70-1.30 [facility] Ferritin [Mass/Vol] 257.0 ng/mL 26.0-388.0 [facility] GFR/1.73 sq M.predicted MDRD (S/P/Bld) [Vol rate/Area] mL/min/{1.73_m2} >=60 [facility] Glucose [Mass/Vol] 117 mg/dL 74-106 [facility] Iron [Mass/Vol] 80.0 ug/dL 65.0-175.0 [facility] Potassium [Moles/Vol] 3.9 mmol/L 3.5-5.1 [facility] Sodium [Moles/Vol] 139 mmol/L 136-145 [facility] Urate [Mass/Vol] 5.6 mg/dL 3.5-7.2 [facility] Urea nitrogen [Mass/Vol] 36.0 mg/dL 7.0-18.0 [facility] Urea nitrogen/Creatinine [Mass ratio] 33.0 mg/mg [facility] Laboratory - Urinalysison Protein (U) [Mass/Vol] 16.2 mg/dL <=11.9 [facility] Leukocytes [#/volume] correc yoandy for nucleated erythrocytes in Blood by Automated counon 10-04-2023 WBC corrected for nucl RBC Auto (Bld) [#/Vol] 11.9 10 3/uL 4.0-11.0 [facility] MCH Auto (RBC) [Entitic mass ]on 10-04-2023 MCH (RBC) [Entitic mass] 31.6 pg 25.9-34.0 [facility] MCHC Auto (RBC) [Mass/Vol]on 10-04-2023 MCHC (RBC) [Mass/Vol] 33.9 g/dL 29.9-35.2 [facility] MCV Auto (RBC) [Entitic vol] on 10-04-2023 MCV (RBC) [Entitic vol] 93.1 fL 80.0-94.0 [facility] Mucus LM Ql (Urine sed)on Mucus Ql (Urine sed) NONE SEEN NONE SEEN [facility] No Panel Informationon 10-03 25-Hydroxy Vitamin D Total 29.7 ng/mL [facility] Comment on above: <20 ng/mL Vit D defi cient20-<30 ng/mL Vit D [id number] ng/mL Vit D sufficient>100 ng/mL Potential Toxicity Parathyroid Hormone (Intact) 35 pg/mL 15-65 [facility] Comment on above: Performed at: [place] [id number] Director: Raymundo Wynn PhD, Phone: [phone] Phosphorus Level 4.4 mg/dL 2.6-4.7 [facility] Urine Random Creatinine 102.05 mg/dL 20.00-300.00 [facility] Platelet mean volume Auto (B ld) [Entitic vol]on 10-04-2023 Platelet mean volume (Bld) [Entitic vol] 10.5 fL 9.5-13.5 [facility] Platelets Auto (Bld) [#/Vol] on 10-04-2023 Platelets (Bld) [#/Vol] 244 10 3/uL 150-450 [facility] Protein Auto test strip (U) [Mass/Vol]on 10-04-2023 Protein (U) [Mass/Vol] Negative NEG/TRACE [facility] RBC Auto (Bld) [#/Vol]on RBC (Bld) [#/Vol] 4.18 10 6/uL 4.70-6.10 [facility] Serum or plasma anion gap de terminationon 10-04-2023 Anion gap [Moles/Vol] 14.5 mmol/L [facility] Specific gravity Auto test s trip (U) [Rel density]on 10-04-2023 Specific gravity (U) [Rel density] CLEAR CLEAR [facility] Urine bacteria detection by automated methodon 10-04-2023 Bacteria Auto Ql (U) NONE SEEN #/HPF NONE SEEN [facility] Urine glucose measurement by test strip (mass/volume)on 10-04-2023 Glucose Test strip (U) [Mass/Vol] Negative NEGATIVE [facility] Urine hemoglobin detection b y automated test stripon 10-04-2023 Hemoglobin Auto test strip Ql (U) Negative NEGATIVE [facility] Urine nitrite detection by a utomated test stripon 10-04-2023 Nitrite Auto test strip Ql (U) Negative NEGATIVE [facility] Urine protein/creatinine rat ioon 10-04-2023 Protein/Creatinine (U) [Ratio] 0.16 [facility] Urine sediment crystal ident ification by light microscopyon 10-04-2023 Crystals LM Nom (Urine sed) None Seen #/HPF None Seen [facility] Urine sediment leukocyte cou nt by microscopy (number/high power field)on 10-04-2023 WBC LM.HPF (Urine sed) [#/Area] 0-2 #/HPF NONE SEEN [facility] Urobilinogen Auto test strip (U) [Mass/Vol]on 10-04-2023 Urobilinogen Qn (U) 0.2 {Dash'U}/dL 0.2-1.0 [facility] pH Auto test strip (U)on pH (U) 6.0 [pH] 5.0-9.0 [facility] Lab Reportson 09-30-2023 Lab Reports [id number] #1.00TIFF Normal [facility] CT CHEST WO CONon 10-11-2022 CT CHEST [...] LUCAS GOLDSTEIN Date: 2022-10-11 15:31 Normal [facility] CBC AUTO DIFFon 08-23-2022 BASO # 0.0 103/ul Normal 0.0-0.1 [facility] Comment on above: Performed By: #### C BC #### [facility] [address] [place] [address] Dr. Jesus White Basophils/100 WBC (Bld) 0.5 % Normal 0.2-2.0 [facility] Comment on above: Performed By: #### C BC #### [facility] [address] [place] [address] Dr. Jesus White EO # 0.2 103/ul Normal 0.0-0.7 [facility] Comment on above: Performed By: #### C BC #### [facility] [address] [place] [address] Dr. Jesus White Eosinophils/100 WBC (Bld) 2.2 % Normal 0.9-7.0 [facility] Comment on above: Performed By: #### C BC #### [facility] [address] [place] [address] Dr. Jesus White Erythrocyte distribution width (RBC) [Ratio] 13.3 % Normal 11.0-15.0 [facility] Comment on above: Performed By: #### C BC #### [facility] [address] [place] [address] Dr. Jesus White Hematocrit (Bld) [Volume fraction] 43.0 % Normal 42.0-54.0 [facility] Comment on above: Performed By: #### C BC #### [facility] [address] [place] [address] Dr. Jesus White Hemoglobin (Bld) [Mass/Vol] 14.4 g/dL Normal 14.0-18.0 [facility] Comment on above: Performed By: #### C BC #### [facility] [address] [place] [address] Dr. Jesus White IG # 0.02 10e3/ul Normal 0.00-0.03 [facility] Comment on above: Performed By: #### C BC #### [facility] [address] [place] [address] Dr. Jesus White IG % 0.2 % Normal 0.0-0.5 [facility] Comment on above: Performed By: #### C BC #### [facility] [address] [place] [address] Dr. Jesus White LYMPH # 3.0 103/ul Normal 1.2-3.8 [facility] Comment on above: Performed By: #### C BC #### [facility] [address] [place] [address] Dr. Jesus White Lymphocytes/100 WBC (Bld) 35.8 % Normal 20.5-60.0 [facility] Comment on above: Performed By: #### C BC #### [facility] [address] [place] [address] Dr. Jesus White MANUAL DIFF REQ NO Normal [facility] Comment on above: Performed By: #### C BC #### [facility] [address] [place] [address] Dr. Jesus White MCH (RBC) [Entitic mass] 30.6 pg Normal 25.9-34.0 [facility] Comment on above: Performed By: #### C BC #### [facility] [address] [place] [address] Dr. Jesus White MCHC (RBC) [Mass/Vol] 33.5 g/dL Normal 29.9-35.2 [facility] Comment on above: Performed By: #### C BC #### [facility] [address] [place] [address] Dr. Jesus White MCV (RBC) [Entitic vol] 91.5 fL Normal 80.0-94.0 [facility] Comment on above: Performed By: #### C BC #### [facility] [address] [place] [address] Dr. Jesus White MONO # 0.8 103/ul Normal 0.3-0.8 [facility] Comment on above: Performed By: #### C BC #### [facility] [address] [place] [address] Dr. Jesus White Monocytes/100 WBC (Bld) 9.1 % Normal 1.7-12.0 [facility] Comment on above: Performed By: #### C BC #### [facility] [address] [place] [address] Dr. Jesus White NEUT # 4.4 103/ul Normal 1.4-6.5 [facility] Comment on above: Performed By: #### C BC #### [facility] [address] [place] [address] Dr. Jesus White Neutrophils/100 WBC (Bld) 52.2 % Normal 43.0-75.0 [facility] Comment on above: Performed By: #### C BC #### [facility] [address] [place] [address] Dr. Jesus White Platelet mean volume (Bld) [Entitic vol] 9.8 fL Normal 9.5-13.5 [facility] Comment on above: Performed By: #### C BC #### [facility] [address] [place] [address] Dr. Jesus White PLT 236 103/ul Normal 150-450 [facility] Comment on above: Performed By: #### C BC #### [facility] [address] [place] [address] Dr. Jesus White RBC 4.70 106/ul Normal 4.70-6.10 [facility] Comment on above: Performed By: #### C BC #### [facility] [address] [place] [address] Dr. Jesus White WBC 8.4 103/ul Normal 4.0-11.0 [facility] Comment on above: Performed By: #### C BC #### [facility] [address] [place] [address] Dr. Jesus White LIPID PROFILEon 08-23-2022 CHOL-HDL RATIO NORM SEE BELOW Normal [facility] Comment on above: Result Comment: 3.3 - 4.4 LOW RISK 4.4 - 7.1 AVERAGE RISK 7.1 - 11.0 MODERATE RISK >11.0 HIGH RISK Performed By: #### C MP, LIPID #### [facility] [address] [place] [address] Dr. Jesus White Cholesterol [Mass/Vol] 121 mg/dL Normal <=200 [facility] Comment on above: Performed By: #### C MP, LIPID #### [facility] [address] [place] [address] Dr. Jesus White Cholesterol in HDL [Mass/Vol] 37 mg/dL Critically low 40-60 [facility] Comment on above: Performed By: #### C MP, LIPID #### [facility] [address] [place] [address] Dr. Jesus White Cholesterol in LDL [Mass/Vol] 59.6 mg/dL Normal [facility] Comment on above: Performed By: #### C MP, LIPID #### [facility] [address] [place] [address] Dr. Jesus White Cholesterol.total/Ch olesterol in HDL [Mass ratio] 3.3 {ratio} Normal [facility] Comment on above: Performed By: #### C MP, LIPID #### [facility] [address] [place] [address] Dr. Jesus White HDL NORMAL > or = 60 mg/dl - LOW CARDIOVASCULAR RISK <40 mg/dl - HIGH CARDIOVASCULAR RISK Normal [facility] Comment on above: Performed By: #### C MP, LIPID #### [facility] [address] [place] [address] Dr. Jesus White LDL CALC NORMAL SEE BELOW Normal [facility] Comment on above: Result Comment: <100 mg/dl OPTIMAL 100 - 129 mg/dl NEAR OR ABOVE OPTIMAL 130 - 159 mg/dl BORDERLINE HIGH 160 - 189 mg/dl HIGH >190 mg/dl VERY HIGH Performed By: #### C MP, LIPID #### [facility] [address] [place] [address] Dr. Jesus White Triglyceride [Mass/Vol] 122 mg/dL Normal <=150 [facility] Comment on above: Performed By: #### C MP, LIPID #### [facility] [address] [place] [address] Dr. eJsus White VLDL CALC 24.4 mg/dL Normal [facility] Comment on above: Performed By: #### C MP, LIPID #### [facility] [address] [place] [address] Dr. Jesus White PROF 14(COMP METB)on 023 Albumin [Mass/Vol] 3.8 g/dL Normal 3.4-5.0 [facility] Comment on above: Performed By: #### C MP, LIPID #### [facility] [address] [place] [address] Dr. Jesus White Albumin/Globulin [Mass ratio] 1.1 {ratio} Normal [facility] Comment on above: Performed By: #### C MP, LIPID #### [facility] [address] [place] [address] Dr. Jesus White ALP [Catalytic activity/Vol] 46 U/L Normal 46-116 [facility] Comment on above: Performed By: #### C MP, LIPID #### [facility] [address] [place] [address] Dr. Jesus White ALT [Catalytic activity/Vol] 37 U/L Normal 16-63 [facility] Comment on above: Performed By: #### C MP, LIPID #### [facility] [address] [place] [address] Dr. Jesus White Anion gap [Moles/Vol] 11.3 mmol/L Normal [facility] Comment on above: Performed By: #### C MP, LIPID #### [facility] [address] [place] [address] Dr. Jesus White AST [Catalytic activity/Vol] 28 U/L Normal 15-37 [facility] Comment on above: Performed By: #### C MP, LIPID #### [facility] [address] [address] [address] Jesus White Bilirubin [Mass/Vol] 0.5 mg/dL Normal 0.2-1.0 [facility] Comment on above: Performed By: #### C MP, LIPID #### [facility] [address] [place] [address] Dr. Jesus White Calcium [Mass/Vol] 9.5 mg/dL Normal 8.5-10.1 [facility] Comment on above: Performed By: #### C MP, LIPID #### [facility] [address] [place] [address] Dr. Jesus White Chloride [Moles/Vol] 104 mmol/L Normal 98-107 [facility] Comment on above: Performed By: #### C MP, LIPID #### [facility] [address] [place] [address] Dr. Jesus White CO2 [Moles/Vol] 28.9 mmol/L Normal 21.0-32.0 [facility] Comment on above: Performed By: #### C MP, LIPID #### [facility] [address] [place] [address] Dr. Jesus White Creatinine [Mass/Vol] 0.99 mg/dL Normal 0.70-1.30 [facility] Comment on above: Performed By: #### C MP, LIPID #### [facility] [address] [place] [address] Dr. Jesus White EGFR-AF MARSHALLESE >60 Normal >=60 [facility] Comment on above: Performed By: #### C MP, LIPID #### [facility] [address] [place] [address] Dr. Jesus White EGFR-NON AF MARSHALLESE >60 Normal >=60 [facility] Comment on above: Performed By: #### C MP, LIPID #### [facility] [address] [address] [address] Jesus White Globulin (S) [Mass/Vol] 3.6 g/dL Normal [facility] Comment on above: Performed By: #### C MP, LIPID #### [facility] [address] [address] [address] Jesus White Glucose [Mass/Vol] 92 mg/dL Normal 74-106 [facility] Comment on above: Performed By: #### C MP, LIPID #### [facility] [address] [address] [address] Jesus White Potassium [Moles/Vol] 4.2 mmol/L Normal 3.5-5.1 [facility] Comment on above: Performed By: #### C MP, LIPID #### [facility] [address] [place] [address] Dr. Jesus White Protein [Mass/Vol] 7.4 g/dL Normal 6.4-8.2 [facility] Comment on above: Performed By: #### C MP, LIPID #### [facility] [address] [place] [address] Dr. Jesus White Sodium [Moles/Vol] 140 mmol/L Normal 136-145 [facility] Comment on above: Performed By: #### C MP, LIPID #### [facility] [address] [address] [address] Jesus Whtie Urea nitrogen [Mass/Vol] 12.0 mg/dL Normal 7.0-18.0 [facility] Comment on above: Performed By: #### C MP, LIPID #### [facility] [address] [address] [address] Jesus White Urea nitrogen/Creatinine [Mass ratio] 12.1 mg/mg Normal [facility] Comment on above: Performed By: #### C MP, LIPID #### [facility] [address] [address] [address] LUNG CANCER SCREENINGon [...] LUCAS GOLDSTEIN Date: 2022-07-05 12:53 Normal [facility] BLOOD GASES BTYon 04-08-2022 02 MODE ROOM AIR Normal [facility] Comment on above: Performed By: #### A BG ####[facility] [address] [id number]. Jesus White ALLENS TEST Positive Normal [facility] Comment on above: Performed By: #### A BG ####[facility] [address] [id number]. Jesus White Base excess Calc (Bld) [Moles/Vol] -0.4000 mmol/L Normal -2.0-2.0 [facility] Comment on above: Performed By: #### A BG ####[facility] [address] [address]Dr. Jesus White BIPAP PRESSURE Normal [facility] Comment on above: Performed By: #### A BG ####[facility] [address] [place], [place] [address]Dr. Jesus White CPAP Normal [facility] Comment on above: Performed By: #### A BG ####[facility] [address] [address]Dr. Jesus White FIO2 Normal [facility] Comment on above: Performed By: #### A BG ####[facility] [address] [place], [place] [address]Dr. Jesus White HCO3 (Bld) [Moles/Vol] 24.7 mmol/L Normal 22.0-26.0 [facility] Comment on above: Performed By: #### A BG ####[facility] [address] [place], [place] [address]Dr. Jesus White LPM Normal [facility] Comment on above: Performed By: #### A BG ####[facility] [address] [place], [place] [address]Dr. Jesus White MINUTE VOLUME Normal [facility] Comment on above: Performed By: #### A BG ####[facility] [address] [place], [place] [address]Dr. Jesus White Oxygen (Bld) [Partial pressure] 75.3 mm[Hg] Critically low 80.0-100.0 [facility] Comment on above: Performed By: #### A BG ####[facility] [address] [place], [place] [address]Dr. Jesus White Oxygen saturation in Blood 94.7 % Critically low 95.0-100.0 [facility] Comment on above: Performed By: #### A BG ####[facility] [address] [place], [place] [address]Dr. Jesus White PCO2 42.0 mmHg Normal 35.0-45.0 [facility] Comment on above: Performed By: #### A BG ####[facility] [address] [address]Dr. Jesus White PEEP [facility] Comment on above: Performed By: #### A BG ####[facility] [address] [address]DrJordin White pH (Bld) 7.379 [pH] Normal 7.350-7.450 [facility] Comment on above: Performed By: #### A BG ####[facility] [address] [address]Dr. Jesus White PIP [facility] Comment on above: Performed By: #### A BG ####[facility] [address] [address]DrJordni White PS [facility] Comment on above: Performed By: #### A BG ####[facility] [address] [address]DrJordin White PUNCTURE SITE LR [facility] Comment on above: Performed By: #### A BG ####[facility] [address] [place], [place] [address]DrJordin White RATE [facility] Comment on above: Performed By: #### A BG ####[facility] [address] [address]DrJordin White VENT MODE [facility] Comment on above: Performed By: #### A BG ####[facility] [address] [address]DrJordin White [place] [facility] Comment on above: Performed By: #### A BG ####[facility] [address] [place], [place] [address]DrJordin White CBC AUTO DIFFon 04-08-2022 BASO # 0.1 103/ul Normal 0.0-0.1 [facility] Comment on above: Performed By: #### C BC #### [facility] [address] [address] [address] Jesus White Basophils/100 WBC (Bld) 0.6 % Normal 0.2-2.0 [facility] Comment on above: Performed By: #### C BC #### [facility] [address] [address] [address] Jesus White EO # 0.2 103/ul Normal 0.0-0.7 [facility] Comment on above: Performed By: #### C BC #### [facility] [address] [place] [address] Dr. Jesus White Eosinophils/100 WBC (Bld) 1.5 % Normal 0.9-7.0 [facility] Comment on above: Performed By: #### C BC #### [facility] [address] [place] [address] Dr. Jesus White Erythrocyte distribution width (RBC) [Ratio] 13.2 % Normal 11.0-15.0 [facility] Comment on above: Performed By: #### C BC #### [facility] [address] [place] [address] Dr. Jesus White Hematocrit (Bld) [Volume fraction] 41.7 % Critically low 42.0-54.0 [facility] Comment on above: Performed By: #### C BC #### [facility] [address] [place] [address] Dr. Jesus White Hemoglobin (Bld) [Mass/Vol] 14.3 g/dL Normal 14.0-18.0 [facility] Comment on above: Performed By: #### C BC #### [facility] [address] [place] [address] Dr. Jesus White IG # 0.03 10e3/ul Normal 0.00-0.03 [facility] Comment on above: Performed By: #### C BC #### [facility] [address] [place] [address] Dr. Jesus White IG % 0.3 % Normal 0.0-0.5 [facility] Comment on above: Performed By: #### C BC #### [facility] [address] [place] [address] Dr. Jesus White LYMPH # 5.6 103/ul Critically high 1.2-3.[address] [facility] Comment on above: Performed By: #### C BC #### [facility] [address] [place] [address] Dr. Jesus White Lymphocytes/100 WBC (Bld) 57.0 % Normal 20.5-60.0 [facility] Comment on above: Performed By: #### C BC #### [facility] [address] [place] [address] Dr. Jesus White MANUAL DIFF REQ NO Normal [facility] Comment on above: Performed By: #### C BC #### [facility] [address] [place] [address] Dr. Jesus White MCH (RBC) [Entitic mass] 31.4 pg Normal 25.9-34.0 [facility] Comment on above: Performed By: #### C BC #### [facility] [address] [place] [address] Dr. Jesus White MCHC (RBC) [Mass/Vol] 34.3 g/dL Normal 29.9-35.2 [facility] Comment on above: Performed By: #### C BC #### [facility] [address] [place] [address] Dr. Jesus White MCV (RBC) [Entitic vol] 91.6 fL Normal 80.0-94.0 [facility] Comment on above: Performed By: #### C BC #### [facility] [address] [place] [address] Dr. Jesus White MONO # 0.5 103/ul Normal 0.3-0.8 [facility] Comment on above: Performed By: #### C BC #### [facility] [address] [place] [address] Dr. Jesus White Monocytes/100 WBC (Bld) 5.1 % Normal 1.7-12.0 [facility] Comment on above: Performed By: #### C BC #### [facility] [address] [place] [address] Dr. Jesus White NEUT # 3.5 103/ul Normal 1.4-6.5 [facility] Comment on above: Performed By: #### C BC #### [facility] [address] [address] [address] Jesus White Neutrophils/100 WBC (Bld) 35.5 % Critically low 43.0-75.0 [facility] Comment on above: Performed By: #### C BC #### [facility] [address] [address] [address] Jesus White Platelet mean volume (Bld) [Entitic vol] 9.5 fL Normal 9.5-13.5 [facility] Comment on above: Performed By: #### C BC #### [facility] [address] [address] [address] Jesus White PLT 222 103/ul Normal 150-450 [facility] Comment on above: Performed By: #### C BC #### [facility] [address] [address] [address] Jesus White RBC 4.55 106/ul Critically low 4.70-6.10 [facility] Comment on above: Performed By: #### C BC #### [facility] [address] [address] [address] Jesus White WBC 9.8 103/ul Normal 4.0-11.0 [facility] Comment on above: Performed By: #### C BC #### [facility] [address] [place] [address] STROKE HEAD WOon [...] ERNA LEON Date: 2022-04-08 18:50 [facility] SARS-CoV-2 (COVID-19) RNA PAUL+probe Ql (Unsp spec) Not detected Normal NOT DETECTED [facility] Comment on above: Result Comment: When [...] for this test is supported by the [place] of Health and Human Service's declaration that [...] used). Performed By: #### C VDTBH #### [facility] [address] [place] [address] Dr. Jesus White ETHANOL (BLD ALC)on 04-08-20 22 ALC NOTE NOTE: 80 mg/dl is the legal limit for a blood alcohol level Normal [facility] Comment on above: Performed By: #### E TH ####[facility] [address] [id number]. Jesus White Ethanol [Mass/Vol] 344 mg/dL Normal [facility] Comment on above: Performed By: #### E TH ####[facility] [address] [address]Dr. Jesus White PROF 14(COMP METB)on 022 Albumin [Mass/Vol] 3.5 g/dL Normal 3.4-5.0 [facility] Comment on above: Performed By: #### C MP, HSTROPN #### [facility] [address] [address] [address] Jesus White Albumin/Globulin [Mass ratio] 1.0 {ratio} Normal [facility] Comment on above: Performed By: #### C JORGE HSTROPN #### [facility] [address] [place] [address] Dr. Jesus White ALP [Catalytic activity/Vol] 41 U/L Critically low 46-116 [facility] Comment on above: Performed By: #### C JORGE HSTROPN #### [facility] [address] [place] [address] Dr. Jesus White ALT [Catalytic activity/Vol] 28 U/L Normal 16-63 [facility] Comment on above: Performed By: #### C JORGE HSTROPN #### [facility] [address] [place] [address] Dr. Jesus White Anion gap [Moles/Vol] 12.1 mmol/L Normal [facility] Comment on above: Performed By: #### C JORGE HSTROPN #### [facility] [address] [place] [address] Dr. Jesus White AST [Catalytic activity/Vol] 19 U/L Normal 15-37 [facility] Comment on above: Performed By: #### C JORGE HSTROPN #### [facility] [address] [place] [address] Dr. Jesus White Bilirubin [Mass/Vol] 0.3 mg/dL Normal 0.2-1.0 [facility] Comment on above: Performed By: #### C JORGE HSTROPN #### [facility] [address] [place] [address] Dr. Jesus White Calcium [Mass/Vol] 8.8 mg/dL Normal 8.5-10.1 [facility] Comment on above: Performed By: #### C JORGE, HSTROPN #### [facility] [address] [place] [address] Dr. Jesus White Chloride [Moles/Vol] 105 mmol/L Normal 98-107 [facility] Comment on above: Performed By: #### C JORGE, HSTROPN #### [facility] [address] [address] [address] Jesus White CO2 [Moles/Vol] 24.8 mmol/L Normal 21.0-32.0 [facility] Comment on above: Performed By: #### C MP, HSTROPN #### [facility] [address] [place] [address] Dr. Jesus White Creatinine [Mass/Vol] 1.53 mg/dL Critically high 0.70-1.30 [facility] Comment on above: Performed By: #### C MP, HSTROPN #### [facility] [address] [place] [address] Dr. Jesus White EGFR-AF MARSHALLESE 55 mL/min/1.73m2 Critically low >=60 [facility] Comment on above: Result Comment: Prev iously reported as: (blank) On 04/08/2022 19:15 By [facility] Performed By: #### C MP, HSTROPN #### [facility] [address] [place] [address] Dr. Jesus White EGFR-NON AF MARSHALLESE 46 mL/min/1.73m2 Critically low >=60 [facility] Comment on above: Result Comment: Prev iously reported as: (blank) On 04/08/2022 19:15 By [facility] Performed By: #### C MP, HSTROPN #### [facility] [address] [place] [address] Dr. Jesus White Globulin (S) [Mass/Vol] 3.5 g/dL Normal [facility] Comment on above: Performed By: #### C MP, HSTROPN #### [facility] [address] [place] [address] Dr. Jesus White Glucose [Mass/Vol] 116 mg/dL Critically high 74-106 [facility] Comment on above: Performed By: #### C MP, HSTROPN #### [facility] [address] [place] [address] Dr. Jesus White Potassium [Moles/Vol] 3.9 mmol/L Normal 3.5-5.1 [facility] Comment on above: Performed By: #### C MP, HSTROPN #### [facility] [address] [address] [address] Jesus White Protein [Mass/Vol] 7.0 g/dL Normal 6.4-8.2 [facility] Comment on above: Performed By: #### C MP, HSTROPN #### [facility] [address] [address] [address] Jesus White Sodium [Moles/Vol] 138 mmol/L Normal 136-145 [facility] Comment on above: Performed By: #### C MP, HSTROPN #### [facility] [address] [address] [address] Jesus White Urea nitrogen [Mass/Vol] 17.0 mg/dL Normal 7.0-18.0 [facility] Comment on above: Performed By: #### C MP, HSTROPN #### [facility] [address] [address] [address] Jesus White Urea nitrogen/Creatinine [Mass ratio] 11.1 mg/mg Normal [facility] Comment on above: Performed By: #### C MP, HSTROPN #### [facility] [address] [address] [address] Jesus White PROTIMEon 04-08-2022 INR Coag (PPP) [Relative time] 1.00 {INR} Normal [facility] Comment on above: Performed By: #### P TT, PT ####[facility] [address] [address]Dr. Jesus White INR GUIDELINES SEE BELOW Normal [facility] Comment on above: Result Comment: JULIET RED INR: 2.0 - 3.0 CONDITIONS NOT LISTED BELOW 2.5 - 3.5 FOR PROSTHETIC HEART VALVE REPLACEMENT 2.5 - 3.5 RECURRENT THROMBOSIS Performed By: #### P TT, PT ####[facility] [address] [address]Dr. Jesus White PT Coag (PPP) [Time] 10.8 s Normal 9.0-11.6 [facility] Comment on above: Performed By: #### P TT, PT ####[facility] [address] [id number]. Jesus White PTTon 04-08-2022 aPTT Coag (Bld) [Time] 24.8 s Normal 22.3-36.2 [facility] Comment on above: Performed By: #### P TT, PT ####[facility] [address] [id number] White TROPONIN, HIGH SENSITIVITYon 04-08-2022 HSTROP 16.7 pg/mL Normal 4.0-76.1 [facility] Comment on above: Result Comment: CUT- OFF POINTS HAVE BEEN ESTABLISHED BASED ON THE FOURTH UNIVERSAL DEFINITIONS OF MYOCARDIAL INFARCTION. THE UPPER REFERENCE LIMIT (URL) OF TROPONIN, DEFINED THE 99TH PERCENTILE OF cTnI DISTRIBUTION IN A REFERENCE POPULATION, HAS BEEN CONFIRMED THE DECISION THRESHOLD FOR [place] DIAGNOSIS. Performed By: #### C MP, HSTROPN #### [facility] [address] [place] [address] Dr. Jesus White PROF CHEM 8 (BAS METB)on Anion gap [Moles/Vol] 13.3 mmol/L Normal [facility] Comment on above: Performed By: #### B MP #### [facility] [address] [place] [address] Dr. Jesus White Calcium [Mass/Vol] 9.7 mg/dL Normal 8.5-10.1 [facility] Comment on above: Performed By: #### B MP #### [facility] [address] [place] [address] Dr. Jesus White Chloride [Moles/Vol] 103 mmol/L Normal 98-107 [facility] Comment on above: Performed By: #### B MP #### [facility] [address] [place] [address] Dr. Jesus White CO2 [Moles/Vol] 28.4 mmol/L Normal 21.0-32.0 [facility] Comment on above: Performed By: #### B MP #### [facility] [address] [place] [address] Dr. Jesus White Creatinine [Mass/Vol] 1.21 mg/dL Normal 0.70-1.30 [facility] Comment on above: Performed By: #### B MP #### [facility] [address] [address] [address] Jesus White EGFR-AF MARSHALLESE >60 Normal >=60 [facility] Comment on above: Performed By: #### B MP #### [facility] [address] [address] [address] Jesus White EGFR-NON AF MARSHALLESE 60 mL/min/1.73m2 Normal >=60 [facility] Comment on above: Performed By: #### B MP #### [facility] [address] [address] [address] Jesus White Glucose [Mass/Vol] 95 mg/dL Normal 74-106 [facility] Comment on above: Performed By: #### B MP #### [facility] [address] [address] [address] Jesus White Potassium [Moles/Vol] 3.7 mmol/L Normal 3.5-5.1 [facility] Comment on above: Performed By: #### B MP #### [facility] [address] [address] [address] Jesus White Sodium [Moles/Vol] 141 mmol/L Normal 136-145 [facility] Comment on above: Performed By: #### B MP #### [facility] [address] [address] [address] Jesus White Urea nitrogen [Mass/Vol] 12.0 mg/dL Normal 7.0-18.0 [facility] Comment on above: Performed By: #### B MP #### [facility] [address] [address] [address] Jesus White Urea nitrogen/Creatinine [Mass ratio] 9.9 mg/mg Normal [facility] Comment on above: Performed By: #### B MP #### [facility] [address] [address] [address] Jesus White ER URINE PROFILEon 2 Bilirubin Ql (U) Negative Normal NEGATIVE [facility] Comment on above: Performed By: #### VALERIO GOULDRO ####[facility] [address] [address]Dr. Jesus White Clarity (U) CLEAR Normal CLEAR [facility] Comment on above: Performed By: #### VALERIO GOULDRO ####[facility] [address] [address]Dr. Carollan White Color (U) LT. YELLOW Normal YELLOW [facility] Comment on above: Performed By: #### VALERIO GOULDRO ####[facility] [address] [address]Dr. Jesus White ERUAHD A micrscopic examination will be performed if indicated. Normal [facility] Comment on above: Performed By: #### VALERIO GOULDRO ####[facility] [address] [place], [place] [address]Dr. Jesus White Glucose Ql (U) Negative Normal NEGATIVE [facility] Comment on above: Performed By: #### VALERIO GOULDRO ####[facility] [address] [place], [place] [address]Dr. Yilan White Hemoglobin Ql (U) Negative Normal NEGATIVE [facility] Comment on above: Performed By: #### VALERIO GOULDRO ####[facility] [address] [place], [place] [address]Dr. Jesus White Ketones Ql (U) Negative Normal NEGATIVE [facility] Comment on above: Performed By: #### VALERIO GOULDRO ####[facility] [address] [place], [place] [address]Dr. Yilan White LEUKOCYTES Negative Normal NEGATIVE [facility] Comment on above: Performed By: #### VALERIO GOULDRO ####[facility] [address] [place], [place] [address]Dr. Yilan White Nitrite Ql (U) Negative Normal NEGATIVE [facility] Comment on above: Performed By: #### VALERIO GOULDRO ####[facility] [address] [place], [place] [address]Dr. Jesus White pH (U) 6.0 [pH] Normal 5-9 [facility] Comment on above: Performed By: #### CALEB GOULD ####[facility] [address] [address]Dr. Jesus White SPEC GRAVITY <=1.005 Abnormal 1.005-<=1.025 [facility] Comment on above: Performed By: #### CALEB GOULD ####[facility] [address] [address]Dr. Jesus White UA PROTEIN Negative Normal NEGATIVE/ TRACE [facility] Comment on above: Performed By: #### CALEB GOULD ####[facility] [address] [place], [place] [address]Dr. Jesus White UR MICRO IND INDICATED Normal [facility] Comment on above: Performed By: #### CALEB GOULD ####[facility] [address] [place], [place] [address]Dr. Jesus White Urobilinogen Qn (U) 0.2 {Dash'U}/dL Normal 0.2 - 1. 0 [facility] Comment on above: Performed By: #### CALEB GOULD ####[facility] [address] [place], [place] [address]Dr. Jesus White URINE MICROSCOPIC ONLYon BACTERIA NONE SEEN Normal NONE SEEN [facility] Comment on above: Performed By: #### CALEB GOULD ####[facility] [address] [place], [place] [address]Dr. Jesus White Bacteria identified Cx Nom (U) NOT INDICATED Normal [facility] Comment on above: Performed By: #### CALEB GOULD ####[facility] [address] [place], [place] [address]Dr. Jesus White CAST NONE SEEN Normal NONE SEEN [facility] Comment on above: Performed By: #### CALEB GOULD ####[facility] [address] [place], [place] [address]Dr. Jesus White Crystals LM Nom (Urine sed) NONE SEEN Normal NONE SEEN [facility] Comment on above: Performed By: #### Júnior BARNES UMICRO ####[facility] [address] [address]Dr. Jesus White Epithelial cells LM Ql (Urine sed) RARE Normal NONE SEEN /RARE [facility] Comment on above: Performed By: #### E RUR UMICRO ####[facility] [address] [address]Dr. Jesus White MUCOUS NONE SEEN Normal NONE SEEN [facility] Comment on above: Performed By: #### E MOLLY UMICRO ####[facility] [address] [address]Dr. Jesus White RBC NONE SEEN Abnormal 0-2 [facility] Comment on above: Performed By: #### Júnior BARNES UMICRO ####[facility] [address] [address]Dr. Jesus White WBC NONE SEEN Normal NONE SEEN [facility] Comment on above: Performed By: #### E RUPaul UMICRO ####[facility] [address] [address]Dr. Jesus White US CRYSTAL DOP LEG LTon [...] VARSHA BARNARD Date: 2022-01-01 08:49 Normal [facility] Vital Signs Date Time Vital Sign Value Performing Mayank hooker 04-23-2024 14:58-0500 Body height 172.7 cm Nicolle Rodriguez [employer] Work Phone: [facility] 04-23-2024 14:58-0500 Body mass index (BMI) [Ratio] 35.58 kg/m2 Nicolle Rodriguez [employer] Work Phone: [facility] 04-23-2024 14:58-0500 Body temperature 97.3 [degF] Nicolle Rodriguez [employer] Work Phone: [facility] 04-23-2024 14:58-0500 Body weight 106.14 kg Nicolle Rodriguez [employer] Work Phone: [facility] 04-23-2024 14:58-0500 Diastolic blood pressure 60 mm[Hg] Nicolle Rodriguez [employer]PER[employer] Work Phone: [facility] 04-23-2024 14:58-0500 Heart rate 62 /min Nicolle Rodriguez CRAWLER CRANE OPERATOR Work Phone: [facility] 04-23-2024 14:58-0500 Respiratory rate 22 /min Nicolle Rodriguez CRAWLER CRANE OPERATOR Work Phone: [facility] 04-23-2024 14:58-0500 SaO2% (BldA) [Mass fraction] 97 % Nicolle Rodriguez CRAWLER CRANE OPERATOR Work Phone: [facility] 04-23-2024 14:58-0500 Systolic blood pressure 130 mm[Hg] Nicolle Rodriguez CRAWLER CRANE OPERATOR Work Phone: [facility] 03-19-2024 08:59-0400 Body mass index (BMI) [Ratio] 33.06 kg/m2 Nicolle Rodriguez CRAWLER CRANE OPERATOR Work Phone: [facility] 03-19-2024 08:59-0400 Body temperature 97.3 [degF] Nicolle Rodriguez CRAWLER CRANE OPERATOR Work Phone: [facility] 03-19-2024 08:59-0400 Body weight 104.51 kg Nicolle Burrowspatrick CRAWLER CRANE OPERATOR Work Phone: [facility] 03-19-2024 08:59-0400 Diastolic blood pressure 80 mm[Hg] Nicolle Rodriguez CRAWLER CRANE OPERATOR Work Phone: [facility] 03-19-2024 08:59-0400 Heart rate 63 /min Nicolle Rodriguez CRAWLER CRANE OPERATOR Work Phone: [facility] 03-19-2024 08:59-0400 SaO2% (BldA) [Mass fraction] 98 % Nicolle Choprazpatrick CRAWLER CRANE OPERATOR Work Phone: [facility] 03-19-2024 08:59-0400 Systolic blood pressure 162 mm[Hg] Nicolle Rodriguez CRAWLER CRANE OPERATOR Work Phone: [facility] 01-17-2024 08:08-0400 Blood Pressure Location Will [employer] [facility] 01-17-2024 08:08-0400 Diastolic blood pressure 84 mm[Hg] Will COOK [facility] 01-17-2024 08:08-0400 Heart rate 62 /min Will [employer] [facility] 01-17-2024 08:08-0400 Respiratory rate 19 /min Will [employer] [facility] 01-17-2024 08:08-0400 Systolic blood pressure 151 mm[Hg] Will COOK [facility] 10-17-2023 10:02-0400 Blood Pressure Location Will [employer] [facility] 10-17-2023 10:02-0400 Diastolic blood pressure 66 mm[Hg] Will HOLLINS [facility] 10-17-2023 10:02-0400 Heart rate 66 /min Will HOLLINS [facility] 10-17-2023 10:02-0400 Respiratory rate 18 /min Will HOLLINS [facility] 10-17-2023 10:02-0400 Systolic blood pressure 120 mm[Hg] Will HOLLINS [facility] 10-13-2023 13:17-0400 Body height 177.8 cm [facility] 10-13-2023 13:17-0400 Body mass index (BMI) [Ratio] 32.5 kg/m2 [facility] 10-13-2023 13:17-0400 Body temperature 97 [degF] [facility] 10-13-2023 13:17-0400 Body weight 102.96 kg [facility] 10-13-2023 13:17-0400 Diastolic blood pressure 70 mm[Hg] [facility] 10-13-2023 13:17-0400 Heart rate 74 /min [facility] 10-13-2023 13:17-0400 Respiratory rate 20 /min [facility] 10-13-2023 13:17-0400 SaO2% (BldA) [Mass fraction] 97 % [facility] 10-13-2023 13:17-0400 Systolic blood pressure 120 mm[Hg] [facility] 03-17-2023 15:20-0400 Body height 177.8 cm Jose Julien Other [employer] [facility] [employer] Other 03-17-2023 15:20-0400 Body mass index (BMI) [Ratio] 31.96 kg/m2 Jose Julien Other [employer] Other 03-17-2023 15:20-0400 Body temperature 96.9 [degF] Jose Julien Other [employer] Other 03-17-2023 15:20-0400 Body weight 101.06 kg Jose Julien Other [employer] Other 03-17-2023 15:20-0400 Diastolic blood pressure 73 mm[Hg] Jose Julien Other [employer] Other 03-17-2023 15:20-0400 Respiratory rate 18 /min Jose Julien Other [employer] Other 03-17-2023 15:20-0400 SaO2% (BldA) [Mass fraction] 98 % Jose Julien Other [employer] Other 03-17-2023 15:20-0400 Systolic blood pressure 134 mm[Hg] Jose Julien Other [employer] Other 09-30-2022 11:20-0400 Body height 177.8 cm Jose Julien Other [employer] Other 09-30-2022 11:20-0400 Body mass index (BMI) [Ratio] 33.6 kg/m2 Jose Julien Other [employer] Other 09-30-2022 11:20-0400 Body temperature 96.3 [degF] Jose Julein Other [employer] Other 09-30-2022 11:20-0400 Body weight 106.23 kg Jose Julien Other [employer] Other 09-30-2022 11:20-0400 Diastolic blood pressure 64 mm[Hg] Jose Julien Other [employer] Other 09-30-2022 11:20-0400 Respiratory rate 18 /min Jose Julien Other [employer] Other 09-30-2022 11:20-0400 SaO2% (BldA) [Mass fraction] 99 % Jose Julien Other [employer] Other 09-30-2022 11:20-0400 Systolic blood pressure 138 mm[Hg] Jose Julien Other [employer] Other 03-22-2022 14:00-0400 Body height 177.8 cm Jose Julien Other [employer] Other 03-22-2022 14:00-0400 Body mass index (BMI) [Ratio] 33.14 kg/m2 Jose Julien Other [employer] Other 03-22-2022 14:00-0400 Body temperature 95.9 [degF] Jose Julien Other [employer] Other 03-22-2022 14:00-0400 Body weight 104.78 kg Jose Julien Other [employer] Other 03-22-2022 14:00-0400 Diastolic blood pressure 70 mm[Hg] Jose Julien Other [employer] Other 03-22-2022 14:00-0400 Respiratory rate 18 /min Jose Julien Other [employer] Other 03-22-2022 14:00-0400 SaO2% (BldA) [Mass fraction] 97 % Jose Julien Other [employer] Other 03-22-2022 14:00-0400 Systolic blood pressure 119 mm[Hg] Jose Julien Other [employer] Other 06-18-2021 11:40-0500 Body height 177.8 cm Jose Julien Other [employer] Other 06-18-2021 11:40-0500 Body mass index (BMI) [Ratio] 37.22 kg/m2 Jose Julien Other [employer] Other 06-18-2021 11:40-0500 Body temperature 95.9 [degF] Jose Julien Other [employer] Other 06-18-2021 11:40-0500 Body weight 117.66 kg Jose Julien Other [employer] Other 06-18-2021 11:40-0500 Diastolic blood pressure 70 mm[Hg] Jose Julien Other [employer] Other 06-18-2021 11:40-0500 Respiratory rate 18 /min Jose Julien Other [employer] Other 06-18-2021 11:40-0500 SaO2% (BldA) [Mass fraction] 97 % Jose Julien Other [employer] Other 06-18-2021 11:40-0500 Systolic blood pressure 124 mm[Hg] Jose Victoria Other [employer] Other Encounters Encounter Date Encounter Type Care Provider Facility Start: 05-22-2024 ambulatory Will HOLLINS Facility :[facility] Start: 04-23-2024 End: 04-23-2024 Office outpatient visit 15 minutes Nicolle Rodriguez CRAWLER CRANE OPERATOR Work Phone: [facility] Comment on above: Bronchitis (Primary Dx); Viral upper respiratory tract infection Start: 04-23-2024 End: 04-23-2024 ambulatory NICOLLE RODRIGUEZ Not Available Start: 04-23-2024 End: 04-23-2024 Bamboo flowsheet Nicolle Rodriguez CRAWLER CRANE OPERATOR Work Phone: [facility] Start: 04-23-2024 End: 04-23-2024 Bamboo flowsheet Nicolle Rodriguez CRAWLER CRANE OPERATOR Work Phone: [facility] Start: 04-18-2024 End: 04-18-2024 Clinisync Result Encounter Generic External Data Provider [facility] Unsolicited Start: 04-18-2024 End: 04-18-2024 Clinisync Result Encounter Generic External Data Provider [facility] Unsolicited Start: 03-27-2024 End: 03-27-2024 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: [facility] Comment on above: Hyperlipidemia, unsp ecified (CMS/HCC); Essential (primary) hypertension (CMS/HCC); Hyperuricemia; Gastroesophageal reflux disease with esophagitis without hemorrhage Start: 03-20-2024 End: 03-20-2024 Orders Only Nicolle Rodriguez CRAWLER CRANE OPERATOR Work Phone: [facility] Comment on above: Acute bacterial sinu sitis (Primary Dx) Start: 03-19-2024 End: 03-19-2024 Bamboo flowsheet Nicolle Smithk CRAWLER CRANE OPERATOR Work Phone: [facility] Start: 03-19-2024 End: 03-19-2024 Bamboo flowsheet Nicolle Burrowspatrick CRAWLER CRANE OPERATOR Work Phone: [facility] Start: 03-19-2024 End: 03-19-2024 Clinisync Result Encounter Nicolle Jennifer CRAWLER CRANE OPERATOR Work Phone: [facility] Unsolicited Start: 03-19-2024 End: 03-19-2024 Office outpatient visit 15 minutes Nicolle Jennifer CRAWLER CRANE OPERATOR Work Phone: [facility] Comment on above: Viral upper respirat ory tract infection (Primary Dx); Acute right ankle pain; Centrilobular emphysema (CMS/HCC); Ankle injury, right, initial encounter Start: 03-19-2024 End: 03-19-2024 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: [facility] Comment on above: Hyperuricemia Start: 01-17-2024 End: 01-17-2024 ambulatory Will HOLLINS Facility:[facility] Start: 01-17-2024 End: 01-17-2024 Patient encounter procedure Will HOLLINS [facility] Start: 11-24-2023 End: 11-24-2023 ambulatory SHAIKH KALIN Not Available Start: 10-17-2023 End: 10-17-2023 ambulatory Will HOLLINS Facility:[facility] Start: 10-17-2023 End: 10-17-2023 Patient encounter procedure Will HOLLINS [facility] Start: 10-13-2023 End: 10-13-2023 ambulatory [facility] Work Phone: Start: 10-13-2023 End: 10-13-2023 Patient encounter procedure [facility] Physician [facility] Fred Work Phone: Start: 10-04-2023 Non-patient / Non-visit [facility] Physician [facility] [employer] Work Phone: Start: 09-28-2023 End: 09-28-2023 ambulatory PATEL FAWWAD Not Available Start: 08-23-2023 End: 08-23-2023 ambulatory PATEL FAWWAD Not Available Start: 05-10-2023 Patient encounter procedure Nicolle Rodriguez CRAWLER CRANE OPERATOR Work Phone: [facility] Start: 05-10-2023 End: 05-10-2023 ambulatory PATEL FAWWAD Not Available Start: 03-17-2023 End: 03-17-2023 ambulatory Jose Julien Other [employer] Other Start: 03-17-2023 Office outpatient vi sit 15 minutes Jose Julien [facility] Start: 10-11-2022 End: 10-12-[address] WILL HOLLINS Facility:[facility] Start: 09-30-2022 End: 09-30-2022 ambulatory Jose Julien Other [employer] Other Start: 09-30-2022 Office outpatient vi sit 15 minutes Jose Julien [facility] Start: 08-23-2022 End: 08-24-2022 ambulatory PATEL H FAWWAD Facility:[facility] Start: 07-05-2022 End: 07-06-2022 ambulatory RUKHSANA SAMSA . Facility:[facility] Start: 04-08-2022 End: 04-08-[address] COLTEN NUNO . Facility:[facility] Start: 03-24-2022 End: 03-25-2022 ambulatory RUKHSANA SAMSA . Facility:[facility] Start: 03-22-2022 End: 03-22-2022 ambulatory Jose Julien Other [employer] Other Start: 03-22-2022 Office outpatient vi sit 25 minutes Jose Julien [facility] Start: 02-16-2022 End: 02-17-2022 ambulatory SHAIKH Nancy GAGNON Facility:[facility] Start: 01-01-2022 End: 01-01-[address] LUNA DUFFY . Facility:[facility] Start: 06-21-2021 End: 06-21-2021 ambulatory Jose Julien Other [employer] Other Start: 06-21-2021 Telephone encounter Jose Julien [facility] Start: 06-18-2021 End: 06-18-2021 ambulatory Jose Julien Other [employer] Other Start: 06-18-2021 Office outpatient vi sit 25 minutes Jose Julien [facility] Procedures Date Procedure Procedure Detail Performing Clinician Start: 04-18-2024 MHPT PSA, DIAGNOSTIC Ge neric External Data Provider Start: 03-19-2024 SARS-COV-2 AG* Nicolle Rodriguez CRAWLER CRANE OPERATOR Work Phone: Start: 03-19-2024 [facility] INFLUENZA A AND B AG Nicolle Burrowspatrick CRAWLER CRANE OPERATOR Work Phone: Start: 10-11-[address] WINIFRED HOLLINS Comment on above: Performed By: #### P SAD ####[place] [id number] White Start: 03-24-2011 Brachytherapy Will PIZARRO Start: 06-06-2000 Excision of left kidney Will HOLLINS Cataract (disorder) Will HOLLINS Extraction of wisdom tooth G kerry HOLLINS History of hernia repair Eri HOLLINS Plan of Treatment Date Care Activity Detail Author Start: 09-22-2026 Screening for malign ant neoplasm of colon [facility] Start: 06-19-2024 End: 06-19-2024 Patient encounter procedure 06/19/2024 9:30 AM EST Office Visit [facility] [address] [place] [address] Nicolle Rodriguez, CRAWLER CRANE OPERATOR [address] [place] [address] [facility] Start: 05-10-2024 Medicare Annual Wellness (AWV) Medicare Annual Wellness (AWV) [facility] Start: 04-23-2024 End: 04-23-2024 Patient encounter procedure 04/23/2024 3:00 PM EST Office Visit [facility] [address] [place] [id number] Nicolle Rodriguez, CRAWLER CRANE OPERATOR [address] [place] [address] Arrived [facility] Comment on above: Arrived Start: 03-19-2024 End: 03-19-2025 COVID-19 / [place]U [place] / [place] COVID-19 / FLU A/B / RSV PCR [place] Lab Routine Viral upper respiratory tract infection Expected: 03/19/2024 (Approximate), Expires: 03/19/2025 [facility] Work Phone: Comment on above: Expected: 03/19/2024 (Approximate), Expires: 03/19/2025 Start: 03-19-2024 End: 03-19-2024 Patient encounter procedure 03/19/2024 9:00 AM EDT Office Visit [facility] [address] [place] [id number] Nicolle Rodriguez, CRAWLER CRANE OPERATOR [address] [place] [id number] Arrived [facility] Comment on above: Arrived Start: 02-05-2024 Influenza vaccination Influenza Vacc ine (#1) [facility] Start: 02-21-1961 Pneumococcal Vaccine : 65+ Years (1 of 2 - PCV) Pneumococcal Vaccine: 65+ Years (1 of 2 - PCV) [facility] Start: 1955 Screening for malign ant neoplasm of colon [facility] Renal function 2000 panel - Serum or Plasma [facility] XR Ankle - right 3 Views XR ankle 3+ views right Imaging Routine Acute right ankle pain Ordered: 03/19/2024 [facility] Comment on above: Ordered: 03/19/2024 [facility] Immunizations Immunization Date Immunization Notes Care Provider Blake blair 03-17-2023 influenza virus vaccine, unspecified formulation Will HOLLINS [facility] 03-17-2023 Influenza, High-dose Seasonal, Quadrivalent, Preservative Free Nicolle Rodriguez CRAWLER CRANE OPERATOR Work Phone: [facility] 03-27-2022 influenza virus vaccine, unspecified formulation Will [employer] [facility] 03-27-2022 Influenza, High-dose Seasonal, Quadrivalent, Preservative Free Nicolle Rodriguez CRAWLER CRANE OPERATOR Work Phone: [facility] 05-27-2021 SARS-CoV-2 (COVID-19 ) [id number] vaccine Will [employer] [facility] Comment on above: Result Comment: [facility] 03-26-2021 influenza virus vaccine, unspecified formulation Will [employer] [facility] 03-26-2021 Influenza, High-dose Seasonal, Quadrivalent, Preservative Free Nicolle Rodriguez CRAWLER CRANE OPERATOR Work Phone: [facility] 11-21-2020 SARS-CoV-2 (COVID-19 ) [id number] vaccine [employer] [facility] 10-16-2020 SARS-CoV-2 (COVID-19 ) [id number] vaccine Will HOLLINS [facility] 02-05-2020 influenza virus vaccine, unspecified formulation Will HOLLINS [facility] 05-14-2014 influenza virus vaccine, unspecified formulation Will HOLLINS [facility] 05-14-2014 influenza, seasonal, injectable Nicolle Rodriguez NP Work Phone: [facility] Payers Date Payer Category Payer Medicaid [id number] 2012 Medicaid [place] Advantage [id number] 501 [id number] 1959 Medicare [id number] 1956 Unknown [id number] [id number] 1956 Unknown [id number] 2.16.840.1.984690.3.579.2.593 1956 Unknown [id number] 2.16.840.1.140755.3.579.2.593 1956 Unknown [id number] 2.16.840.1.285148.3.579.2.593 1956 Unknown [id number] 2.16.840.1.090135.3.579.2.593 1956 Unknown [id number] 2.16.840.1.386141.3.579.2.593 1956 Unknown [id number] 2.16.840.1.760940.3.579.2.593 1956 Unknown [id number] 2.16.840.1.556486.3.579.2.593 1956 Unknown [id number] 2.16.840.1.600149.3.579.2.727 1956 Unknown [id number] 2.16.840.1.719277.3.579.2.727 1956 Unknown [id number] 2.16.840.1.955680.3.579.2.727 1956 Unknown [id number] 2.16.840.1.075928.3.579.2.1259 1956 Unknown [id number] 2.16.840.1.363226.3.579.2.1259 1956 Unknown [id number] 2.16.840.1.376807.3.579.2.1259 1956 Unknown [id number] 2.16.840.1.196105.3.579.2.1259 1956 Unknown [id number] 2.16.840.1.505789.3.579.2.1259 1956 Unknown [id number] 2.16.840.1.386912.3.579.2.1259 Medicaid [employer] [id number] Self-pay Self Pay [id number] Unknown [employer] GHAZALA [id number] Social History Date Type Detail Facility Unknown if ever smoked [employer] Other Start: 05-10-2023 End: 11-24-2023 Sex Assigned At [facility] Start: 10-13-2023 [facility] Start: 1955 Sex Assigned At Male F [facility] Start: 10-17-2023 End: 01-17-2024 Tobacco smoking status Light tobacco smoker (finding) [facility] Tobacco smoking status Never [facility] Start: 11-24-2023 Tobacco smoking stat us SCIS Smokes tobacco daily [facility] History of [...] 01-17-2024 Functional Status N/A [facility] 10-17-2023 Functional Status N/A [facility] Clinical Notes 06-18-2021 to 04-24-2024 Nicolle Rodriguez NP - 04/24/2024 1:01 PM Chai [...] note were not included. Subjective Patient ID: Marco Mustafa is a 69 y.o. male who presents for Follow-up ([facility] er f/up URI). HPI Was seen [...] 20 MG tablet documented in this encounter [facility] 04-23-2024 Instructions Nicolle Rodriguez NP - 04/23/2024 3:00 PM EST [...] NEAREST EMERGENCY DEPARTMENT. documented in this encounter [facility] 03-19-2024 History of Presen t illness [...] note were not included. Subjective Patient ID: Marco Mustafa is a 69 y.o. male who presents for Nasal Congestion and Ankle Pain (Injury 2 weeks ago with ankle ). [facility] Pulmonology- Dr. Rojas Cardiology- Dr. Victoria Urology- [...] COPD (chronic obstructive pulmonary disease) with emphysema ([facility]/HCC) URI (upper respiratory infection) - Primary Sinus congestion, runny nose, body aches X10 days. Discussed likely viral etiology. Ordered COVID/Flu/RSV panel. Recommended rest, fluids, OTC management for now. Relevant Orders COVID-19 / FLU A/B / RSV [place] Ankle injury, right, initial encounter Rolled ankle;e 2 weeks ago. Did not receive tx or imaging. Reports swelling and tenderness still Is able to bear weight and ambulate, but does report associated pain. Selling noted on observation. No discoloration observed. Xray ankle ordered. Other Visit Diagnoses Acute right ankle pain Relevant Orders XR ankle 3+ views right documented in this encounter [facility] 03-19-2024 Instructions Nicolle Rodriguez NP - 03/19/2024 9:00 AM EDT [...] NEAREST EMERGENCY DEPARTMENT. documented in this encounter [facility] 01-17-2024 Hospital Discharg e instructions Patient [...] if anything looks unusual. Men with a zzdzpl-ggsk-itqdme risk for skin cancer may want to see a data warehouse specialist (gas generator operator) for an annual body check. What are the benefits of screening? Cancer screening is done to look for cancer in the very early stages, before it spreads and becomes harder to treat and before you would start to notice symptoms. Finding cancer early improves the chances of successful treatment. It may save your life. Where to find more information [employer]: www.cancer.org Centers for Disease Control and Prevention: www.cdc.gov National Cancer Jackson: www.cancer.gov Contact a health care provider if: [...] provider. Document Revised: 10/19/2021 Document Reviewed: 04/18/2020 [employer] Patient Education 2022 [employer]. Follow Up Care 10/17/2023 10:47:32 With:GURVINDER HENDRICKSON, Will Day, URL Address: [address] [place] [address]- When: Unknown [facility] [...] if anything looks unusual. Men with a mbqihn-asrt-bbqgoi risk for skin cancer may want to see a data warehouse specialist (gas generator operator) for an annual body check. What are the benefits of screening? Cancer screening is done to look for cancer in the very early stages, before it spreads and becomes harder to treat and before you would start to notice symptoms. Finding cancer early improves the chances of success (more content not included)... [facility] 10-17-2023 Hospital Discharg e instructions Patient Education [...] similar to normal prostate cells (well differentiated). Lincoln 7: This indicates that the cancer cells look somewhat similar to normal prostate cells (moderately differentiated). Lincoln 8, 9, or 10: This indicates that [...] stress of having cancer. General instructions Take tvjv-ugv-mqyvpdv and prescription medicines only as told by your health care provider. If you have to go to the hospital, notify your cancer specialist (oncologist). Keep all follow-up visits. This is important. Where to find more information [employer]: www.cancer.org [employer] Society of Clinical Oncology: www.cancer.net National Cancer Jackson: www.cancer.gov Contact a health care provider if: [...] provider. Document Revised: 08/19/2021 Document Reviewed: 08/19/2021 [employer] Patient Education 2022 [employer]. Follow Up Care 10/15/2022 10:10:00 With:GURVINDER HENDRICKSON, Will Day, URL Address: [facility] [place] [address]- When: Unknown [facility] 03-17-2023 Evaluation note Encounter Date Diagnosis [...] Monitor LFTs and lipid profile with PCP. [employer] Other 04-27-2023 Evaluation note* Encounter Date Diagnosis [...] have gout. I have prescribed oral Allopurinol [employer] Other 10-17-2022 Evaluation note* Encounter Date Diagnosis [...] have gout. I have prescribed oral Allopurinol [employer] Other 07-29-2022 NotePROCEDURE: XR FEMUR LT HISTORY: [...] Electronically authenticated by: LUCAS GOLDSTEIN Date: 2022-01-01 08:35[facility]01-13-2022 Evaluation note* Encounter Date Diagnosis Assessment [...] Q60.0) He has a solitary right kidney. [employer] Other Evaluation + Plan note Future Appointments Appointment Date:01/16/2024 09:45:00 AM Scheduled Provider:Will HOLLINS MD Location:[facility] Appointment Type:URO Office Visit Diagnostic Tests Pending * PSA Total 11/05/23 [facility] Evaluation + Plan note Future Appointments Appointment Date:05/22/2024 09:30:00 AM Scheduled Provider:Will HOLLINS MD Location:[facility] Appointment Type:URO Office Visit Diagnostic Tests Pending * PSA Total 01/17/24 [facility] Evaluation noteNo [facility] Other evaluation note* Diagnosis Onset Date Resolution Status Anemia of renal disease acut e CKD (chronic kidney disease) stage 3, GFR 30-59 ml/min acute Hyperlipidemia acute [id number] acute Hyperuricemia acute Hypomagnesemia acute Secondary hyperparathyroidism acute Solitary kidney, acquired ac [facility] Work Phone: evaluqgyfn note* Diagnosis Primary hypertension (CMS/HCC)- Primary Unspecified [...] esophagitis without hemorrhage documented in this encounter [facility] HealthcareEvaluation note* Diagnosis Primary hypertension (CMS/HCC)- [...] of unspecified site documented in this encounter [facility] HealthcareHistory general Narrative - ReportedNort [place] Other History general Narrative - Reported* Type [...] BLOOD PRESSURE WAS 60/40 , DEHYDRATION 04/2021 [employer] Other History general Narrative - Reported* Type [...] BLOOD PRESSURE WAS 60/40 , DEHYDRATION 04/2021 [employer] Other History general Narrative - Reported* Type [...] BLOOD PRESSURE WAS 60/40 , DEHYDRATION 04/2021 [employer] Other Hospital course Narrative No data available for this section [facility] Progress note No data available for this section [facility] [employer] Summary Purpose Family History Relationship Condition Age [...] disease) stage 3, GFR 30-59 ml/min Hyperlipidemia [id number] Hyperuricemia Hypomagnesemia Secondary hyperparathyroidism Solitary kidney, acquired Additional Source Comments REASON FOR VISIT (unrecogniz ed section and content) Reason Comments Follow-up [facility] er f/up URI Reason Onset Date Comments Med Refill 03/27/2024 Reason Onset Date Comments Med Refill 03/19/2024 Reason Comments Nasal Congestion Ankle Pain Injury 2 weeks ago w ith ankle CKD and HTNCKD (unrecognized sect ion and content) No Status Records FoundNo Status Records FoundNo Status Records Found INFORMATION SOURCE (unrecogn ized section and content) DATE CREATED AUTHOR 11/12/2022 [facility] DATE CREATED AUTHOR AUTHOR'S ORGANIZ ATION 01/19/2024 [place] [facility] DATE CREATED AUTHOR AUTHOR'S ORGANIZ ATION 04/25/2024 [facility] Care Teams (unrecognized sec tion and content) [...] October 13, 2023 End: October 13, 2023 Color Blender Relationship Specialty Start Date End Date Shaikh Gagnon MD [address] [place] [address] PCP - [employer] 06/06/23 Rm Rainey MD [address] [place] [address] PCP - General Family Medicine 01/16/24 Nicolle Rodriguez NP [address] [place] [address] Nurse Practitioner Family Medicine 01/16/24 Color Blender Relationship Specialty Start Date End Date Shaikh Gagnon MD [address] [place] [phone] PCP - [employer] 06/06/23 Rm Rainey MD [address] [place] [phone] PCP - General Family Medicine 01/16/24 Nicolle Rodriguez NP [address] [place] [address] Nurse Practitioner Family Medicine 01/16/24 Color Blender Relationship Specialty Start Date End Date Shaikh Gagnon MD [address] [place] [phone] PCP - [employer] 06/06/23 Rm Rainey MD [address] [place] [phone] PCP - General Family Medicine 01/16/24 Nicolle Rodriguez CRAWLER CRANE OPERATOR [address] [place] [address] Nurse Practitioner Family Medicine 01/16/24 Color Blender Relationship Specialty Start Date End Date Shaikh Gagnon MD [address] [place] [phone] PCP - [employer] 06/06/23 Rm Rainey MD [address] [place] [phone] PCP - General Family Medicine 01/16/24 Nicolle Rodriguez NP [address] [place] [address] Nurse Practitioner Family Medicine 01/16/24 Color Blender Relationship Specialty Start Date End Date Shaikh Gagnon MD [address] [place] [phone] PCP - [employer] 06/06/23 Rm Rainey MD [address] [place] [phone] PCP - General Family Medicine 01/16/24 Nicolle Rodriguez NP [address] [place] [address] Nurse Practitioner Family Medicine 01/16/24 Color Blender Relationship Specialty Start Date End Date Shaikh Gagnon MD [address] [place] [phone] PCP - [employer] 06/06/23 Unallocated, Jyoti Pink MD [address] [place] [address] PCP - General Family Medicine 03/20/24 Nicolle Rodriguez NP [address] [place] [address] Nurse Practitioner Family Medicine 01/16/24 Color Blender Relationship Specialty Start Date End Date Shaikh Gagnon MD [address] [place] [phone] PCP - [employer] 06/06/23 Rm Rainey MD [address] [place] [phone] PCP - General Family Medicine 04/05/24 Nicolle Rodriguez, NIC [address] [place] [address] Nurse Practitioner Family Medicine 01/16/24 Color Blender Relationship Specialty Start Date End Date Shaikh Gagnon MD [address] [place] [phone] PCP - [employer] 06/06/23 Rm Rainey MD [address] [place] [phone] PCP - General Family Medicine 04/05/24 Nicolle Rodriguez, NIC [address] [place] [address] Nurse Practitioner Family Medicine 01/16/24 Color Blender Relationship Specialty Start Date End Date Shaikh Gagnon MD [address] [place] [address] PCP - [employer] 06/06/23 Rm Rainey MD [address] [place] [phone] PCP - General Family Medicine 04/05/24 Nicolle Rodriguez NP [address] [place], [place] [address] [place] [address] Nurse Practitioner Family Medicine 01/16/24 Goals (unrecognized [...] BE BASED ON THE PRIMARY CLINICAL RECORDS. [employer] provides no warranty or guarantee of the accuracy or completeness of information in this document.
--- NOTE | 2024-05-16 21:34 | ECG_ITS ---
[facility] Test Date: 2024-05-16 Pat Name: ABBEY IRVING Department: Room: - Gender: Male Manager Infusion: : 1955 Requested By: NONA MCELROY Order Number: [id number] Reading MD: NONA MCELROY Measurements Intervals [place] Rate: 52 P: 62 [place]: 224 QRS: 46 QRSD: 90 T: 48 QT: 468 QTc: 449 Interpretive Statements 1100 Sinus rhythm 2231 First degree AV block 9150 abnormal ECG Compared to ECG 05/07/2024 22:18:42 ST (T wave) deviation no longer present Electronically Signed On 05-17-2024 8:06:51 EST by NONA MCELROY
--- NOTE | 2024-05-16 21:34 | ED.FALL1 ---
HPI HPI - Fall General Chief Complaint: Fall Stated Complaint: fell Time Seen by Provider: 05/16/24 21:27 Source: patient Mode of arrival: ambulance Limitations: no limitations History of Present Illness HPI Narrative: This 69-year-old male is brought to the emergency department by EMS from home after he fell. The patient states that he fell over his dog while getting up. He states that he fell onto the left side of his face. According to EMS his is concerned that he has been drinking again. The patient denies any alcohol use. He denies any loss of consciousness. He denies any neck or back pain. He is on blood thinners. The patient states he was recently admitted to this facility for pneumonia. He denies any chest pain or shortness of breath which is out of the ordinary for him. He does admit to tobacco use. He denies any drug use or marijuana use. He has no abdominal pain nausea or vomiting. Related Data Home Medications ?Medication ?Instructions ?Recorded ?Confirmed budesonide-formoterol HFA 160 1 inh inhalation Q12H 04/02/23 05/16/24 mcg-4.5 mcg/actuation aerosol inhaler (Symbicort) losartan 50 mg tablet 50 mg PO DAILY 04/02/23 05/16/24 metoprolol tartrate 25 mg tablet 25 mg PO Q12H 04/02/23 05/16/24 tamsulosin 0.4 mg capsule 0.4 mg PO Q24H 04/02/23 05/07/24 allopurinol 100 mg tablet 100 mg PO BID 04/12/24 05/16/24 atorvastatin 40 mg tablet 40 mg PO QDAY 04/12/24 05/16/24 omeprazole 40 mg capsule,delayed 40 mg PO QDAY 04/12/24 05/16/24 release fluticasone propionate 50 1 spray intranasal QDAY 05/07/24 05/16/24 mcg/actuation nasal spray,suspension albuterol sulfate 90 mcg/actuation inhalation 05/16/24 aerosol inhaler codeine 10 mg-guaifenesin 100 mg/5 ml 05/16/24 mL oral liquid Allergies Allergy/AdvReac Type Severity Reaction Status Date / Time No Known Drug Allergies Allergy Verified 05/16/24 21:26 Opioid HPI Opioid Management Most Recent Pain and Opioid Data: Last Pain Scale 0 05/09/24 08:52 05/09/24 Last ORT Total Score 6 05/08/24 08:09 05/08/24 Last ORT Risk Category Moderate Risk 05/08/24 08:09 05/08/24 Ur Phencyclidine Scrn Negative (NEGATIVE) 05/08/24 14:00 05/08/24 Review of Systems ROS Status of ROS 10 or more systems reviewed and unremarkable except as noted in history and below [facility] Medical History (Updated 05/17/24 @ 00:58 by Kelli Parkinson MD) COPD exacerbation ?J44.1 - Chronic obstructive pulmonary disease with (acute) exacerbation (ICD-10) Bilateral pneumonia ?J18.9 - Pneumonia, unspecified organism (ICD-10) ETOH abuse ?F10.10 - Alcohol abuse, uncomplicated (ICD-10) Chest pain ?R07.9 - Chest pain, unspecified (ICD-10) CKD (chronic kidney disease) stage 2, GFR 60-89 ml/min ?N18.2 - Chronic kidney disease, stage 2 (mild) (ICD-10) HLD (hyperlipidemia) ?E78.5 - Hyperlipidemia, unspecified (ICD-10) Hematemesis with nausea ?K92.0 - Hematemesis (ICD-10) Chronic back pain ?M54.9 - Dorsalgia, unspecified (ICD-10) ?G89.29 - Other chronic pain (ICD-10) Alcohol abuse, in remission ?F10.11 - Alcohol abuse, in remission (ICD-10) Type 2 diabetes mellitus ?E11.9 - Type 2 diabetes mellitus without complications (ICD-10) COPD (chronic obstructive pulmonary disease) ?J44.9 - Chronic obstructive pulmonary disease, unspecified (ICD-10) Sleep apnea ?G47.30 - Sleep apnea, unspecified (ICD-10) Hypertension ?I10 - Essential (primary) hypertension (ICD-10) 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) Hiatal hernia ?K44.9 - Diaphragmatic hernia without obstruction or gangrene (ICD-10) Inguinal hernia bilateral, non-recurrent ?K40.20 - Bilateral inguinal hernia, without obstruction or gangrene, not specified as recurrent (ICD-10) Influenza ?J11.1 - Influenza due to unidentified influenza virus with other respiratory manifestations (ICD-10) Giardia ?A07.1 - Giardiasis [lambliasis] (ICD-10) CMV (cytomegalovirus) ?B25.9 - Cytomegaloviral disease, unspecified (ICD-10) Rheumatic fever ?I00 - Rheumatic fever without heart involvement (ICD-10) Prostate cancer ?C61 - Malignant neoplasm of prostate (ICD-10) Surgical History [place] teeth extracted ?K08.409 - Partial loss of teeth, unspecified cause, unspecified class (ICD-10) History of nephrectomy, left ?Z90.5 - Acquired absence of kidney (ICD-10) Family History (System 04/13/24 @ 09:45 by Farhana Chirinos) Other Family history of cancer Family history of diabetes mellitus Social History (Updated 05/08/24 @ 03:14 by Anabel Key, AMY) Within the past year, how often did you have a drink containing alcohol: 2-4 times a month Within the past year, how many standard drinks containing alcohol did you have on a typical day: 3 or 4 Within the past year, how often did you have six or more drinks on one occasion: less than monthly Total score: 3 Score interpretation: A score of 4 or more indicates drinking is likely to affect patient's safety. Smoking status: Current every day smoker Non-prescribed substance use: denies use Highest level of school completed/degree received: Bachelor's degree Are you now , , , , never or living with a partner: In a typical week, how many times do you talk on the telephone with family, friends, or neighbors: 3 or more times per week Little interest or pleasure in doing things: not at all Feeling down, depressed, or hopeless: not at all Feel stressed/tense/nervous/anxious/difficulty sleeping: to some extent Life stressors: other Life stressor details: HAS CANCER, CONCERNED THAT SHE MIGHT NOT HAVE A GOOD OUTCOME Do you think of yourself as: straight/heterosexual Gender Identity: male Exam Narrative Exam Narrative: Vital signs and Nursing Notes reviewed: Patient is afebrile, he is bradycardic with a pulse of 55, he is borderline hypoxic with pulse ox of 94% on room air, blood pressure is normal at 120/65 General: Awake, alert, oriented, no acute distress, lying comfortably on the stretcher, appears mildly intoxicated, GCS 15 HEENT: Normocephalic atraumatic, mucous membranes are moist and pink, eyes are clear, mild discrepancy in pupil size, normal conjunctiva, vision is grossly intact, posterior pharynx is normal in appearance, mild tenderness over the left cheek with no crepitus, abrasion laceration or bruising. No hemotympanum Neck: Supple, non-tender Chest: Diminished breath sounds with occasional expiratory wheeze, no rhonchi or rales, CVS: Regular rate and rhythm S1-S2, no murmurs rubs or gallops, pulses are brisk and equal bilaterally ABD: Soft, nondistended, nontender, no rebound guarding or rigidity, bowel sounds are normal, no pulsatile masses appreciated Extremities: Moving all extremities, no lower extremity tenderness or swelling noted, negative Homans' sign, pulses are brisk and equal bilaterally Skin: Normal in appearance without rash,pallor, petechiae or purpura Neuro: No focal deficits,. Slightly intoxicated, speech is clear, vision is grossly intact, refuge manager strength is intact, upper and lower extremity strength and sensation is intact Constitutional Vital Signs, click to edit/add: Last Vital Signs Temp 97.9 F 05/16/24 21:21 Pulse 56 L 05/17/24 00:40 Resp 19 05/17/24 00:40 BP 90/52 05/17/24 00:30 Pulse Ox 90 L 05/17/24 00:40 O2 Del Method Room Air 05/16/24 21:21 Course Vital Signs Vital signs: Vital Signs Temperature 97.9 F 05/16/24 21:21 Pulse Rate 53 L 05/16/24 21:21 Respiratory Rate 18 05/16/24 21:21 Blood Pressure 106/51 05/16/24 21:21 Pulse Oximetry 96 05/16/24 21:21 Oxygen Delivery Method Room Air 05/16/24 21:21 Temperature 97.9 F 05/16/24 21:21 Pulse Rate 56 L 05/17/24 00:40 Respiratory Rate 19 05/17/24 00:40 Blood Pressure 90/52 05/17/24 00:30 Pulse Oximetry 90 L 05/17/24 00:40 Oxygen Delivery Method Room Air 05/16/24 21:21 MDM - Fall MDM Narrative Medical decision making narrative: This 69-year-old male was brought to the emergency department by EMS after he had a fall at home. The patient states he fell over his dog and fell onto the left side of his face. He has some tenderness over his left zygoma. His vision is grossly intact. His neuroexam is normal. He denied any neck or back pain. He denied any chest pain or shortness of breath. His was concerned that he may be drinking again although the patient denies alcohol use. He does admit to drinking cough medicine throughout the day. An EKG done upon arrival was a sinus rhythm at 52 bpm with a first-degree AV block. An IV was placed and he was medicated with a liter of normal saline because his blood pressure was soft upon arrival. A cardiac workup was ordered. He has chronic renal insufficiency and his BUN and creatinine are consistent with his baseline. He has a normal troponin. Lactic acid was minimally elevated at 2.1 and alcohol is elevated at 225. LFTs are very minimally elevated. CBC with differential is normal. CT scan of the brain is negative for acute findings but shows chronic changes. CT scan of the cervical spine shows a C3 osteophyte fracture but otherwise stable exam. These findings were discussed with the neurosurgery PA, Lefty Silveira. He advises that no urgent intervention is indicated. The patient can be seen in follow-up with Dr. Simental when he is in his office locally in the next 1 to 2 weeks. 2 view chest x-ray was also ordered as the patient has recently been admitted to this facility for pneumonia. This x-ray was reviewed by radiology and is negative for acute findings. The patient was medicated with Tylenol for some anterior neck pain. He has remained hemodynamically stable in the emergency department. He complained of some dizziness several times in the emergency department but has not had any change in his neurostatus or vital signs. The case was discussed with the hospitalist and he is accepted for admission, observation status. Medical Records Attestation: I reviewed the patient's medical records. Medical records narrative: The [address] [address] [address] Scan Report Signed Patient: ABBEY IRVING MR#: [id number] : 1955 Acct:[id number] Age/Sex: 69 / M ADM Date: 05/16/24 Loc: ER Attending Dr: Ordering Physician: Kelli Parkinson Date of Service: 05/16/24 Procedure(s): CT head/brain wo con Accession Number(s): [id number] cc: NICOLLE LINK~ The [place] [address] Patient Name: ABBEY IRVING MRN: [id number] date: 1955 Sex: M Assigned Patient Location: ER Current Patient Location: ED.MAIN Accession/Order Number: [id number] Exam Date: 05/16/2024 21:52 Report Date: 05/16/2024 22:44 At the request of: KELLI PARKINSON Procedure: CT head/brain wo con EXAM: CT head/brain wo con HISTORY: fall, left sided head trauma COMPARISON: CT brain 04/08/2022. TECHNIQUE: Axial CT scans through the head were obtained without IV contrast administration. Dose reduction techniques were achieved by using: automated exposure control and/or adjustment of mA and /or kV according to patient size and/or use of iterative reconstruction technique. FINDINGS: There is no evidence of acute intracranial hemorrhage or abnormal extra-axial fluid collection. No mass effect or midline shift is seen. There is no evidence of large acute territorial infarction. There is no hydrocephalus. To the limit of CT, the posterior fossa appears unremarkable. There are atherosclerotic calcifications of anterior and posterior circulations. No definite acute fracture is identified. There is mild soft tissue swelling of the anterior inferior left frontal region. The visualized orbits show no abnormality. The visualized paranasal sinuses show no air-fluid level. There are mild mucosal thickening of right maxillary, left sphenoid sinus, bilateral ethmoid air cells and mucus retention cyst within left maxillary sinus. Mastoid air cells are clear. CT/CT head/brain wo con IMPRESSION: No CT evidence of acute intracranial abnormality. No acute fracture. Mild left frontal soft tissue swelling. Electronically authenticated by: MARK MERRILL Date: 05/16/2024 22:[address] [address] [address] Scan Report Signed Patient: ABBEY IRVING MR#: [id number] : 1955 Acct:[id number] Age/Sex: 69 / M ADM Date: 05/16/24 Loc: ER Attending Dr: Ordering Physician: Kelli Parkinson Date of Service: 05/16/24 Procedure(s): CT cervical spine wo con Accession Number(s): [id number] cc: NICOLLE LINK~ The [address] [address] Patient Name: ABBEY IRVING MRN: [facility]:[id number] date: 1955 Sex: M Assigned Patient Location: ER Current Patient Location: ER Accession/Order Number: [id number] Exam Date: 05/16/2024 21:52 Report Date: 05/16/2024 22:57 At the request of: KELLI PARKINSON Procedure: CT cervical spine wo con EXAM: CT cervical spine wo con HISTORY: fall COMPARISON: None. TECHNIQUE: Multiple axial images were obtained through the cervical vertebral column without contrast enhancement. Sagittal and coronal reformations were provided. Dose reduction techniques were achieved by using automated exposure control and/or adjustment of mA and/or kV according to patient size and/or use of iterative reconstruction technique. COMMENT: The lack of intradural contrast and streak artifact from bone about the vertebral column limit evaluation for disc protrusion, bulge and the spinal canal in general. FINDINGS: There is degenerative change of the cervical vertebral column with loss of disc space at several levels and more pronounced multilevel bridging bridging anterior endplate osteophytes. There is a superimposed acute fracture extending through a prominent anterior endplate osteophyte at C3 (series 8, images 33 and 34). No other regions suggest an acute fracture or loss of vertebral body height. No subluxation or malalignment at the craniocervical junction. While assessment is again suboptimal on this noncontrast CT, there is canal narrowing due to disc bulging and endplate osteophyte. A small posterior midline disc protrusion also appears to be present at C5-C6. Uncovertebral spurring and facet degenerative change results in areas of foraminal stenosis. CT/CT cervical spine wo con IMPRESSION: 1. Degenerative change of the cervical vertebral column. 2. There is a superimposed fracture extending through a prominent anterior endplate osteophyte at C3. 3. If there is further clinical indication to evaluate the spinal canal, cord or for ligamentous injury consider MRI as it would be more sensitive. Electronically authenticated by: LUNA ESCOBEDO Date: 05/16/2024 22:[address] [address] XRay Report Signed Patient: ABBEY IRVING MR#: [id number] : 1955 Acct:[id number] Age/Sex: 69 / M ADM Date: 05/16/24 Loc: ER Attending Dr: Ordering Physician: Kelli Parkinson Date of Service: 05/16/24 Procedure(s): XR chest 2V Accession Number(s): [id number] cc: NICOLLE LINK; Kelli Parkinson~ The [address] [address] Patient Name: ABBEY IRVING MRN: [id number] date: 1955 Sex: M Assigned Patient Location: ER Current Patient Location: ER Accession/Order Number: [id number] Exam Date: 05/16/2024 21:52 Report Date: 05/16/2024 22:58 At the request of: EKLLI PARKINSON Procedure: XR chest 2V EXAM: XR chest 2V HISTORY: weakness, recent hx of pneumonia COMPARISON: Chest x-ray, 04/12/2024. TECHNIQUE: Frontal and lateral chest x-rays. FINDINGS: The heart, mediastinum and pulmonary vascularity are within normal limits. The lungs are well expanded and clear. A mild lower thoracic dextroscoliosis is unchanged with thoracic spine DISH. No acute osseous abnormality or focal bony lesion is seen. XR/XR chest 2V IMPRESSION: Nonacute chest. No interval change. Electronically authenticated by: ABBEY YUAN Date: 05/16/2024 22:58 Lab Data Attestation: I reviewed the patient's lab results. Labs: Lab Results 05/16/24 Range/Units 21:45 WBC 10.9 (4.0-11.0) 10^3/uL RBC 3.87 L (4.70-6.10) 10^6/uL Hgb 12.7 L (14.0-18.0) g/dL Hct 37.9 L (42.0-54.0) % MCV 97.9 H (80.0-94.0) fL MCH 32.8 (25.9-34.0) pg MCHC 33.5 (29.9-35.2) g/dL RDW 15.1 H (11.0-15.0) % Plt Count 242 (150-450) 10^3/uL MPV 11.3 (9.5-13.5) fL Neut % (Auto) 41.3 L (43.0-75.0) % Lymph % (Auto) 46.2 (20.5-60.0) % [place] % (Auto) 9.8 (1.7-12.0) % Eos % (Auto) 0.8 L (0.9-7.0) % Baso % (Auto) 0.2 (0.2-2.0) % Neut # (Auto) 4.5 (1.4-6.5) 10^3/uL Lymph # (Auto) 5.0 H (1.2-3.8) 10^3/uL [place] # (Auto) 1.1 H (0.3-0.8) 10^3/uL Eos # (Auto) 0.1 (0.0-0.7) 10^3/uL Baso # (Auto) 0.0 (0.0-0.1) 10^3/uL Abs Immat Gran (auto) 0.18 H (0.00-0.03) 10^3/uL Imm/Tot Granulo (auto) 1.7 H (0.0-0.5) % Sodium 141 (136-145) mmol/L Potassium 3.4 L (3.5-5.1) mmol/L Chloride 103 (98-107) mmol/L Carbon Dioxide 29.8 (21.0-32.0) mmol/L Anion Gap 11.6 BUN 26.0 H (7.0-18.0) mg/dL Creatinine 2.00 H (0.70-1.30) mg/dL Est GFR ( Amer) 41 L (>=60 mL/min/1.73m^2) Est GFR (Non-Af Amer) 33 L (>=60 mL/min/1.73m^2) BUN/Creatinine Ratio 13.0 Glucose 97 (74-106) mg/dL Lactate 2.1 H (0.4-2.0) mmol/L Calcium 8.3 L (8.5-10.1) mg/dL Total Bilirubin 0.4 (0.2-1.0) mg/dL AST 41 H (15-37) U/L ALT 80 H (16-63) U/L Alkaline Phosphatase 46 (46-116) U/L Troponin I High Sens 11.2 (4.0-76.1) pg/mL Total Protein 6.2 L (6.4-8.2) g/dL Albumin 3.0 L (3.4-5.0) g/dL Globulin 3.2 g/dL Albumin/Globulin Ratio 0.9 Ethanol Quant 225 mg/dL ECG Data Attestation: I personally reviewed and interpreted this ECG as follows: (Sinus bradycardia 52 bpm, normal axis, no acute ST segment elevation or T wave inversion) Discharge Plan Discharge Chief Complaint: Fall Clinical Impression: Fall from standing, Contusion of face, Alcohol intoxication, Chronic renal disease, Osteophyte of cervical spine Patient Disposition: Admitted as Observation Time of Disposition Decision: 00:58 Condition: Good Prescriptions / Home Meds: No Action budesonide-formoterol [Symbicort] 160-4.5 mcg/actuation HFA aerosol inhaler 1 inh INHALATION Q12H losartan 50 mg tablet 50 mg PO DAILY metoprolol tartrate 25 mg tablet 25 mg PO Q12H tamsulosin 0.4 mg capsule 0.4 mg PO Q24H atorvastatin 40 mg tablet 40 mg PO QDAY allopurinol 100 mg tablet 100 mg PO BID omeprazole 40 mg capsule,delayed release(DR/EC) 40 mg PO QDAY fluticasone propionate 50 mcg/actuation spray,suspension 1 spray INTRANASAL QDAY codeine-guaifenesin 10-100 mg/5 mL liquid albuterol sulfate 90 mcg/actuation HFA aerosol inhaler INHALATION Print Language: Citizen Of [place] Referrals: NICOLLE LINK [Primary Care Provider] - 1 week
--- NOTE | 2024-05-16 21:35 | XR_ITS ---
[facility] [id number] Patient Name: ABBEY IRVING MRN: [id number] date: 1955 Sex: M Assigned Patient Location: ER Current Patient Location: ER Accession/Order Number: [id number] Exam Date: 05/16/2024 21:52 Report Date: 05/16/2024 22:58 At the request of: DA MARKER Procedure: XR chest 2V EXAM: XR chest 2V HISTORY: weakness, recent hx of pneumonia COMPARISON: Chest x-ray, 04/12/2024. TECHNIQUE: Frontal and lateral chest x-rays. FINDINGS: The heart, mediastinum and pulmonary vascularity are within normal limits. The lungs are well expanded and clear. A mild lower thoracic dextroscoliosis is unchanged with thoracic spine DISH. No acute osseous abnormality or focal bony lesion is seen. XR/XR chest 2V IMPRESSION: Nonacute chest. No interval change. Electronically authenticated by: ABBEY YUAN Date: 05/16/2024 22:58
[2024-05-16 22:20] LABS: Alanine Aminotransferase 80 U/L (16-63); Albumin Globulin Ratio 0.9; Alkaline Phosphatase 46 U/L (46-116); Anion Gap 11.6; Aspartate Amino Transferase 41 U/L (15-37); Bilirubin Total 0.4 mg/dL (0.2-1.0); Calcium 8.3 mg/dL (8.5-10.1); Carbon Dioxide 29.8 mmol/L (21.0-32.0); Chloride 103 mmol/L (98-107); Estimated GFR (African America 41 (>=60 mL/min/1.73m^2); Estimated GFR (Non-African Ame 33 (>=60 mL/min/1.73m^2); Ethanol 225 mg/dL; Globulin 3.2 g/dL; Glucose 97 mg/dL (74-106); Potassium 3.4 mmol/L (3.5-5.1); Sodium 141 mmol/L (136-145); Total Protein 6.2 g/dL (6.4-8.2); Troponin I High Sensitivity 11.2 pg/mL (4.0-76.1)
[2024-05-16 22:21] LABS: Lactate/Lactic Acid 2.1 mmol/L (0.4-2.0)
--- NOTE | 2024-05-16 22:22 | PC.NURSE ---
this patient is back from Ct dept and is gill still will waiting on a urine sample form him and all of the test results to come back. this patient voices no concerns and shows no signs of distress
[2024-05-16] MEDS: 0.9 % SODIUM CHLORIDE 1,000 ML 1000 ML IV (22:24)
--- NOTE | 2024-05-16 22:58 | PC.NURSE ---
this patient still unable to provided urine a sample at this time, patient updated a blood redraw tonight at 00:45
--- NOTE | 2024-05-16 23:17 | PC.NURSE ---
the patient voices the room is spinning I informed Dr Parkinson of this
[2024-05-16] MEDS: ACETAMINOPHEN 325 MG TABLET 650 MG PO (23:33)
--- NOTE | 2024-05-16 23:37 | PC.NURSE ---
Dr Parkinson informed of this patient is complete with 1000ml of 0.9 NS and still unable to provide a urine sample at [facility] time
[2024-05-16 23:45] LABS: Basophils Percent Auto 0.2 % (0.2-2.0); Eosinophils Absolute Auto 0.1 10^3/uL (0.0-0.7); Eosinophils Percent Auto 0.8 % (0.9-7.0); Hematocrit 37.9 % (42.0-54.0); Hemoglobin 12.7 g/dL (14.0-18.0); Immature Granulocytes Abs Auto 0.18 10^3/uL (0.00-0.03); Immature Granulocytes Pct Auto 1.7 % (0.0-0.5); Lymphocytes Percent Auto 46.2 % (20.5-60.0); Mean Corpuscular HGB Conc 33.5 g/dL (29.9-35.2); Mean Corpuscular Hemoglobin 32.8 pg (25.9-34.0); Mean Corpuscular Volume 97.9 fL (80.0-94.0); Mean Platelet Volume 11.3 fL (9.5-13.5); Monocytes Absolute Auto 1.1 10^3/uL (0.3-0.8); Monocytes Percent Auto 9.8 % (1.7-12.0); Neutrophils Absolute Auto 4.5 10^3/uL (1.4-6.5); Neutrophils Percent Auto 41.3 % (43.0-75.0); Platelet Count 242 10^3/uL (150-450); Red Blood Count 3.87 10^6/uL (4.70-6.10); Red Cell Distribution Width 15.1 % (11.0-15.0); White Blood Count 10.9 10^3/uL (4.0-11.0)
[2024-05-17] VITALS (11 sets, daily range): BP systolic 90–176; BP diastolic 52–90; PULSE 53–63; TEMP 35.8–36.4; O2SAT 90–97; BMI 33.0
--- NOTE | 2024-05-17 00:27 | PC.NURSE ---
Addendum entered by Anshu Glover RN 05/17/24 00:31: note this note on wrong patient Original Note: personal from [facility] ([place]) spoke with this patient's mother and she gave verbal consent for this patient to accepted to [facility]
--- OUTSIDE RECORDS SUMMARY | 2024-05-17 01:20 | XMS_ITS | CCD ---
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 Name Role Phone Jose Victoria Unavailable [...] Rainey MD Primary Care Provider Jennifer LUCERO, Nicolle Unavailable Unallocated , Lorenzos Provider Primary Care [...] Medication Allergies] Propensity to adverse reactions (disorder) [facility] Repository Medications Current Medications Medication Drug Class(es) Dates Sig (Normalized) Sig (Original) [id number] 200 actuat albuterol 0.09 mg/actuat metered dose [...] 05-10-2023 05-10-2023 Other aftercare (1 source) 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 [facility] INFLUENZA A AND B AGon 1 INFLUENZA VIRUS A ANTIGEN Negative [facility] Comment on above: Negative for Flu A p rotein antigen. Infection due to Flu A cannot be ruled out. Flu A antigen in the sample may be below the detection limit of the test. INFLUENZA VIRUS B ANTIGEN Negative [facility] Comment on above: Negative for Flu B [...] Will HOLLINS MD Where: [facility] [address] [place] [address]- You Need to Schedule the Following Appointments Follow Up with Will HOLLINS MD, URL When: Where: [address] [place] [address]- Medications What How Much When Instructions Changed tamsulosin (tamsulosin 0.4 mg Cap) 1 Capsules By Mouth Every day Duration: 90 Days Pickup at [facility] Unchanged allopurinol (allopurinol 100 mg Tab) [...] physician if questions or concerns Pharmacy Information [facility]: [address] [place] [phone] Allergies No Known Medication Allergies Problems Ongoing [...] care pr (more content not included)... Normal [facility] Urology Office/Clinic Noteon 01-17-2024 Urology Office/Clinic [...] he had a Primit[place] 7. Completed at [facility]. [1] S/p brachytherapy 03/24/11. PSA decreased which [...] Information GURVINDER HENDRICKSON, Will Day, URL [address] [place], [place] [id number]- Additional Instructions: 4 mos with PSA Patient Education Cancer Screening for Men ILaurel, personally scribed for Dr. Hollins on 01/17/2024 08:30:59. . Documentation recorded by the scribe, Laurel Bradley, accurately reflects the services(s) I performed and decisions made by me. Authenticated by Dr. Hollins on 01/17/2024 08:34:12. Portions of this record may have been created with voice recognition artificial intelligence software, specifically [employer], [employer] and or [employer]. Substitutions may have occurred due to the [...] Left nephrect (more content not included)... Normal [facility] Comment on above: Result Comment: Elec tronically Signed By: Will HOLLINS MD\.br\Date and Time Signed: 01/17/24 08:35 EDT\.br\Electronically Co-Signed By: Laurel Bradley\.br\Date and Time Co-Signed: 01/17/24 08:31 EDT ED Note-Physicianon 10-20-19 ED Note-Physician [id number] 0#1.00TIFF [facility] Lab Reportson 10-20-2023 Lab Reports [id number] 9#1.00TIFF [facility] Lab Reports [id number] 2#1.00TIFF [facility] RAD - CT Reporton 10-20-2023 RAD - CT Report [id number] 5#1.00TIFF [facility] Screenson 10-20-2023 Screens [id number] #1.00TIFF [facility] Ambulatory Visit Summaryon 0 10-17-2023 Ambulatory [...] HENDRICKSON, Will Day [facility] [...] to normal prostate cells (well differentiated). ? [place] 7: This indicates that the cancer cells [...] external be (more content not included)... Normal [facility] Urology Office/Clinic Noteon 10-17-2023 Urology Office/Clinic Note Chief Complaint 1 year follow up HPI Staff 1 year follow up w/PSA *Taking Flomax 0.4 mg qd S/P Lt Nephrectomy 2000 Pt was seen at [facility] on 09/06/23 due to left rib pain. BUN 36, Creatinine 1.09 10/04/23. BUN 26. Creatinine 1.33 09/06/23 CT SCAN 08/12/23 PSA: 10/26/19 - 0.05 08/10/21 - 0.05 10/11/22 - <0.13 09/30/23 - 0.90 Dysuria: denies pain or burning Incomplete bladder emptying: denies Hematuria: yes 6 weeks ago, went to [facility], vomiting blood Frequency: 3x a day [...] with voice recognition artificial intelligence software, specifically [employer], Genomas and or [employer]. Substitutions may have occurred due to the inherent limitations of voice recognition and artificial intelligence software. 1. Rising PSA following treatment for malignant neoplasm of prostate (R97.21: Rising PSA following treatment for malignant neoplasm of prostate) PSA: 10/26/19 - 0.05 08/10/21 - 0.05 10/11/22 - <0.13 09/30/23 - 0.90 S/p brachytherapy 03/24/11. Pt believes he had a [place] 7. Completed at [facility]. Rise in PSA is concerning given pt [...] adenocarcinoma the prostate, previously treated at the [facility] with prostate brachytherapy now has a [...] URL [address] [address]- Additional Instructions: 3 mos w/ PSA Patient Education Prostate Cancer ITala, personally scribed for Dr. Hollins on 10/17/2023 10:42:59. . Documentation recorded by the scribeTala, accurately reflects the services(s) I performed and decisions made by me. Authenticated by Dr. Hollins on 10/17/2023 10:47:47. Problem List/Past (more content not included)... Normal [facility] Comment on above: Result Comment: Elec tronically Signed By: Will HOLLINS MD\.br\Date and Time Signed: 10/17/23 10:50 EDT Automated epithelial cells c ount in urine sediment (number/area)on 10-04-2023 Epithelial cells Auto (Urine sed) [#/Area] NONE SEEN #/LPF NONE/RARE [facility] Automated leukocytes count i n urine sediment (number/area)on 10-04-2023 WBC Auto (Urine sed) [#/Area] NONE SEEN #/HPF 0-2 [facility] Automated urine specific gra vity by refractometryon 10-04-2023 Specific gravity Refractometry automated (U) [Rel density] 1.025 1.005-1.025 [facility] Bilirubin Auto test strip (U ) [Mass/Vol]on 10-04-2023 Bilirubin (U) [Mass/Vol] Negative NEGATIVE [facility] Casts typing in urine sedime nt by light microscopyon 10-04-2023 Casts LM Nom (Urine sed) NONE SEEN #/LPF NONE SEEN [facility] Color Auto (U)on 10-04-2023 Color (U) YELLOW YELLOW [facility] Erythrocyte distribution wid th Auto (RBC) [Ratio]on 10-04-2023 Erythrocyte distribution width (RBC) [Ratio] 13.5 % 11.0-15.0 [facility] Estimated glomerular filtrat ion rate (GFR) non- Americanon 10-04-2023 GFR/1.73 sq M.predicted among non-blacks MDRD (S/P/Bld) [Vol rate/Area] mL/min/{1.73_m2} >=60 [facility] Hematocrit Auto (Bld) [Volum e fraction]on 10-04-2023 Hematocrit (Bld) [Volume fraction] 38.9 % 42.0-54.0 [facility] Hemoglobin [Mass/volume] in Bloodon 10-04-2023 Hemoglobin (Bld) [Mass/Vol] 13.2 g/dL 14.0-18.0 [facility] Iron binding capacity [Mass/ volume] in Serum or Plasmaon 10-04-2023 Iron binding capacity [Mass/Vol] 274.0 ug/dL 250.0-450.0 [facility] Iron saturation [Mass Fracti on] in Serum or Plasmaon 10-04-2023 Iron saturation [Mass fraction] 29.2 % [facility] Ketones Auto test strip (U) [Mass/Vol]on 10-04-2023 Ketones (U) [Mass/Vol] Negative NEGATIVE [facility] Laboratory - Chemistry and C hemistry - challengeon 10-04-2023 Albumin [Mass/Vol] 3.6 g/dL 3.4-5.0 [facility] Calcium [Mass/Vol] 9.4 mg/dL 8.5-10.1 [facility] Chloride [Moles/Vol] 104 mmol/L 98-107 [facility] CO2 [Moles/Vol] 24.4 mmol/L 21.0-32.0 [facility] Creatinine [Mass/Vol] 1.09 mg/dL 0.70-1.30 [facility] Ferritin [Mass/Vol] 257.0 ng/mL 26.0-388.0 [facility] GFR/1.73 sq M.predicted MDRD (S/P/Bld) [Vol rate/Area] mL/min/{1.73_m2} >=60 [facility] Glucose [Mass/Vol] 117 mg/dL 74-106 [facility] Iron [Mass/Vol] 80.0 ug/dL 65.0-175.0 [facility] Potassium [Moles/Vol] 3.9 mmol/L 3.5-5.1 [facility] Sodium [Moles/Vol] 139 mmol/L 136-145 [facility] Urate [Mass/Vol] 5.6 mg/dL 3.5-7.2 [facility] Urea nitrogen [Mass/Vol] 36.0 mg/dL 7.0-18.0 [facility] Urea nitrogen/Creatinine [Mass ratio] 33.0 mg/mg [facility] Laboratory - Urinalysison Protein (U) [Mass/Vol] 16.2 mg/dL <=11.9 [facility] Leukocytes [#/volume] correc yoandy for nucleated erythrocytes in Blood by Automated counon 10-04-2023 WBC corrected for nucl RBC Auto (Bld) [#/Vol] 11.9 10 3/uL 4.0-11.0 [facility] MCH Auto (RBC) [Entitic mass ]on 10-04-2023 MCH (RBC) [Entitic mass] 31.6 pg 25.9-34.0 [facility] MCHC Auto (RBC) [Mass/Vol]on 10-04-2023 MCHC (RBC) [Mass/Vol] 33.9 g/dL 29.9-35.2 [facility] MCV Auto (RBC) [Entitic vol] on 10-04-2023 MCV (RBC) [Entitic vol] 93.1 fL 80.0-94.0 [facility] Mucus LM Ql (Urine sed)on Mucus Ql (Urine sed) NONE SEEN NONE SEEN [facility] No Panel Informationon 10-03 25-Hydroxy Vitamin D Total 29.7 ng/mL [facility] Comment on above: <20 ng/mL Vit D defi cient20-<30 ng/mL Vit D [id number] ng/mL Vit D sufficient>100 ng/mL Potential Toxicity Parathyroid Hormone (Intact) 35 pg/mL 15-65 [facility] Comment on above: Performed at: [place] [id number] Director: Raymundo Wynn PhD, Phone: [phone] Phosphorus Level 4.4 mg/dL 2.6-4.7 [facility] Urine Random Creatinine 102.05 mg/dL 20.00-300.00 [facility] Platelet mean volume Auto (B ld) [Entitic vol]on 10-04-2023 Platelet mean volume (Bld) [Entitic vol] 10.5 fL 9.5-13.5 [facility] Platelets Auto (Bld) [#/Vol] on 10-04-2023 Platelets (Bld) [#/Vol] 244 10 3/uL 150-450 [facility] Protein Auto test strip (U) [Mass/Vol]on 10-04-2023 Protein (U) [Mass/Vol] Negative NEG/TRACE [facility] RBC Auto (Bld) [#/Vol]on RBC (Bld) [#/Vol] 4.18 10 6/uL 4.70-6.10 [facility] Serum or plasma anion gap de terminationon 10-04-2023 Anion gap [Moles/Vol] 14.5 mmol/L [facility] Specific gravity Auto test s trip (U) [Rel density]on 10-04-2023 Specific gravity (U) [Rel density] CLEAR CLEAR [facility] Urine bacteria detection by automated methodon 10-04-2023 Bacteria Auto Ql (U) NONE SEEN #/HPF NONE SEEN [facility] Urine glucose measurement by test strip (mass/volume)on 10-04-2023 Glucose Test strip (U) [Mass/Vol] Negative NEGATIVE [facility] Urine hemoglobin detection b y automated test stripon 10-04-2023 Hemoglobin Auto test strip Ql (U) Negative NEGATIVE [facility] Urine nitrite detection by a utomated test stripon 10-04-2023 Nitrite Auto test strip Ql (U) Negative NEGATIVE [facility] Urine protein/creatinine rat ioon 10-04-2023 Protein/Creatinine (U) [Ratio] 0.16 [facility] Urine sediment crystal ident ification by light microscopyon 10-04-2023 Crystals LM Nom (Urine sed) None Seen #/HPF None Seen [facility] Urine sediment leukocyte cou nt by microscopy (number/high power field)on 10-04-2023 WBC LM.HPF (Urine sed) [#/Area] 0-2 #/HPF NONE SEEN [facility] Urobilinogen Auto test strip (U) [Mass/Vol]on 10-04-2023 Urobilinogen Qn (U) 0.2 {Dash'U}/dL 0.2-1.0 [facility] pH Auto test strip (U)on pH (U) 6.0 [pH] 5.0-9.0 [facility] Lab Reportson 09-30-2023 Lab Reports [id number] #1.00TIFF Normal [facility] CT CHEST WO CONon 10-11-2022 CT [...] LUCAS GOLDSTEIN Date: 2022-10-11 15:31 Normal [facility] CBC AUTO DIFFon 08-23-2022 BASO # 0.0 103/ul Normal 0.0-0.1 [facility] Comment on above: Performed By: #### C BC #### [facility] [address] [place] [address] Dr. Jesus White Basophils/100 WBC (Bld) 0.5 % Normal 0.2-2.0 [facility] Comment on above: Performed By: #### C BC #### [facility] [address] [place] [address] Dr. Jesus White EO # 0.2 103/ul Normal 0.0-0.7 [facility] Comment on above: Performed By: #### C BC #### [facility] [address] [place] [address] Dr. Jesus White Eosinophils/100 WBC (Bld) 2.2 % Normal 0.9-7.0 [facility] Comment on above: Performed By: #### C BC #### [facility] [address] [place] [address] Dr. Jesus White Erythrocyte distribution width (RBC) [Ratio] 13.3 % Normal 11.0-15.0 [facility] Comment on above: Performed By: #### C BC #### [facility] [address] [place] [address] Dr. Jesus White Hematocrit (Bld) [Volume fraction] 43.0 % Normal 42.0-54.0 [facility] Comment on above: Performed By: #### C BC #### [facility] [address] [place] [address] Dr. Jesus White Hemoglobin (Bld) [Mass/Vol] 14.4 g/dL Normal 14.0-18.0 [facility] Comment on above: Performed By: #### C BC #### [facility] [address] [place] [address] Dr. Jesus White IG # 0.02 10e3/ul Normal 0.00-0.03 [facility] Comment on above: Performed By: #### C BC #### [facility] [address] [place] [address] Dr. Jesus White IG % 0.2 % Normal 0.0-0.5 [facility] Comment on above: Performed By: #### C BC #### [facility] [address] [place] [address] Dr. Jesus White LYMPH # 3.0 103/ul Normal 1.2-3.8 [facility] Comment on above: Performed By: #### C BC #### [facility] [address] [place] [address] Dr. Jesus White Lymphocytes/100 WBC (Bld) 35.8 % Normal 20.5-60.0 [facility] Comment on above: Performed By: #### C BC #### [facility] [address] [place] [address] Dr. Jesus White MANUAL DIFF REQ NO Normal [facility] Comment on above: Performed By: #### C BC #### [facility] [address] [place] [address] Dr. Jesus White MCH (RBC) [Entitic mass] 30.6 pg Normal 25.9-34.0 [facility] Comment on above: Performed By: #### C BC #### [facility] [address] [place] [address] Dr. Jesus White MCHC (RBC) [Mass/Vol] 33.5 g/dL Normal 29.9-35.2 [facility] Comment on above: Performed By: #### C BC #### [facility] [address] [place] [address] Dr. Jesus White MCV (RBC) [Entitic vol] 91.5 fL Normal 80.0-94.0 [facility] Comment on above: Performed By: #### C BC #### [facility] [address] [place] [address] Dr. Jesus White MONO # 0.8 103/ul Normal 0.3-0.8 [facility] Comment on above: Performed By: #### C BC #### [facility] [address] [place] [address] Dr. Jesus White Monocytes/100 WBC (Bld) 9.1 % Normal 1.7-12.0 [facility] Comment on above: Performed By: #### C BC #### [facility] [address] [place] [address] Dr. Jesus White NEUT # 4.4 103/ul Normal 1.4-6.5 [facility] Comment on above: Performed By: #### C BC #### [facility] [address] [place] [address] Dr. Jesus White Neutrophils/100 WBC (Bld) 52.2 % Normal 43.0-75.0 [facility] Comment on above: Performed By: #### C BC #### [facility] [address] [place] [address] Dr. Jesus White Platelet mean volume (Bld) [Entitic vol] 9.8 fL Normal 9.5-13.5 [facility] Comment on above: Performed By: #### C BC #### [facility] [address] [place] [address] Dr. Jesus White PLT 236 103/ul Normal 150-450 [facility] Comment on above: Performed By: #### C BC #### [facility] [address] [place] [address] Dr. Jesus White RBC 4.70 106/ul Normal 4.70-6.10 [facility] Comment on above: Performed By: #### C BC #### [facility] [address] [place] [address] Dr. Jesus White WBC 8.4 103/ul Normal 4.0-11.0 [facility] Comment on above: Performed By: #### C BC #### [facility] [address] [place] [address] Dr. Jesus White LIPID PROFILEon 08-23-2022 CHOL-HDL RATIO NORM SEE BELOW Normal [facility] Comment on above: Result Comment: 3.3 - 4.4 LOW RISK 4.4 - 7.1 AVERAGE RISK 7.1 - 11.0 MODERATE RISK >11.0 HIGH RISK Performed By: #### C MP, LIPID #### [facility] [address] [place] [address] Dr. Jesus White Cholesterol [Mass/Vol] 121 mg/dL Normal <=200 [facility] Comment on above: Performed By: #### C MP, LIPID #### [facility] [address] [place] [address] Dr. Jesus White Cholesterol in HDL [Mass/Vol] 37 mg/dL Critically low 40-60 [facility] Comment on above: Performed By: #### C MP, LIPID #### [facility] [address] [place] [address] Dr. Jesus White Cholesterol in LDL [Mass/Vol] 59.6 mg/dL Normal [facility] Comment on above: Performed By: #### C MP, LIPID #### [facility] [address] [place] [address] Dr. Jesus White Cholesterol.total/Ch olesterol in HDL [Mass ratio] 3.3 {ratio} Normal [facility] Comment on above: Performed By: #### C MP, LIPID #### [facility] [address] [place] [address] Dr. Jesus White HDL NORMAL > or = 60 mg/dl - LOW CARDIOVASCULAR RISK <40 mg/dl - HIGH CARDIOVASCULAR RISK Normal [facility] Comment on above: Performed By: #### C MP, LIPID #### [facility] [address] [place] [address] Dr. Jesus White LDL CALC NORMAL SEE BELOW Normal [facility] Comment on above: Result Comment: <100 mg/dl OPTIMAL 100 - 129 mg/dl NEAR OR ABOVE OPTIMAL 130 - 159 mg/dl BORDERLINE HIGH 160 - 189 mg/dl HIGH >190 mg/dl VERY HIGH Performed By: #### C MP, LIPID #### [facility] [address] [place] [address] Dr. Jesus White Triglyceride [Mass/Vol] 122 mg/dL Normal <=150 [facility] Comment on above: Performed By: #### C MP, LIPID #### [facility] [address] [place] [address] Dr. Jesus White VLDL CALC 24.4 mg/dL Normal [facility] Comment on above: Performed By: #### C MP, LIPID #### [facility] [address] [place] [address] Dr. Jesus White PROF 14(COMP METB)on 023 Albumin [Mass/Vol] 3.8 g/dL Normal 3.4-5.0 [facility] Comment on above: Performed By: #### C MP, LIPID #### [facility] [address] [place] [address] Dr. Jesus White Albumin/Globulin [Mass ratio] 1.1 {ratio} Normal [facility] Comment on above: Performed By: #### C MP, LIPID #### [facility] [address] [place] [address] Dr. Jesus White ALP [Catalytic activity/Vol] 46 U/L Normal 46-116 [facility] Comment on above: Performed By: #### C MP, LIPID #### [facility] [address] [place] [address] Dr. Jesus White ALT [Catalytic activity/Vol] 37 U/L Normal 16-63 [facility] Comment on above: Performed By: #### C MP, LIPID #### [facility] [address] [place] [address] Dr. Jesus White Anion gap [Moles/Vol] 11.3 mmol/L Normal [facility] Comment on above: Performed By: #### C MP, LIPID #### [facility] [address] [place] [address] Dr. Jesus White AST [Catalytic activity/Vol] 28 U/L Normal 15-37 [facility] Comment on above: Performed By: #### C MP, LIPID #### [facility] [address] [place] [address] [address] Jesus White Bilirubin [Mass/Vol] 0.5 mg/dL Normal 0.2-1.0 [facility] Comment on above: Performed By: #### C MP, LIPID #### [facility] [address] [place] [address] Dr. Jesus White Calcium [Mass/Vol] 9.5 mg/dL Normal 8.5-10.1 [facility] Comment on above: Performed By: #### C MP, LIPID #### [facility] [address] [place] [address] Dr. Jesus White Chloride [Moles/Vol] 104 mmol/L Normal 98-107 [facility] Comment on above: Performed By: #### C MP, LIPID #### [facility] [address] [place] [address] Dr. Jesus White CO2 [Moles/Vol] 28.9 mmol/L Normal 21.0-32.0 [facility] Comment on above: Performed By: #### C MP, LIPID #### [facility] [address] [place] [address] Dr. Jesus White Creatinine [Mass/Vol] 0.99 mg/dL Normal 0.70-1.30 [facility] Comment on above: Performed By: #### C MP, LIPID #### [facility] [address] [place] [address] Dr. Jesus White EGFR-AF JAMAICAN >60 Normal >=60 [facility] Comment on above: Performed By: #### C MP, LIPID #### [facility] [address] [place] [address] Dr. Jesus White EGFR-NON AF JAMAICAN >60 Normal >=60 [facility] Comment on above: Performed By: #### C MP, LIPID #### [facility] [address] [place] [address] [address] Jesus White Globulin (S) [Mass/Vol] 3.6 g/dL Normal [facility] Comment on above: Performed By: #### C MP, LIPID #### [facility] [address] [address] [address] Jesus White Glucose [Mass/Vol] 92 mg/dL Normal 74-106 [facility] Comment on above: Performed By: #### C MP, LIPID #### [facility] [address] [place] [address] [address] Jesus hWite Potassium [Moles/Vol] 4.2 mmol/L Normal 3.5-5.1 [facility] Comment on above: Performed By: #### C MP, LIPID #### [facility] [address] [place] [address] Dr. Jesus White Protein [Mass/Vol] 7.4 g/dL Normal 6.4-8.2 [facility] Comment on above: Performed By: #### C MP, LIPID #### [facility] [address] [place] [address] Dr. Jesus White Sodium [Moles/Vol] 140 mmol/L Normal 136-145 [facility] Comment on above: Performed By: #### C MP, LIPID #### [facility] [address] [place] [address] [address] Jesus White Urea nitrogen [Mass/Vol] 12.0 mg/dL Normal 7.0-18.0 [facility] Comment on above: Performed By: #### C MP, LIPID #### [facility] [address] [place] [address] [address] Jesus White Urea nitrogen/Creatinine [Mass ratio] 12.1 mg/mg Normal [facility] Comment on above: Performed By: #### C MP, LIPID #### [facility] [address] [address] [address] LUNG CANCER SCREENINGon [...] LUCAS GOLDSTEIN Date: 2022-07-05 12:53 Normal [facility] BLOOD GASES BTYon 04-08-2022 02 MODE ROOM AIR Normal [facility] Comment on above: Performed By: #### A BG ####[facility] [address] [place] [id number]. Jesus White ALLENS TEST Positive Normal [facility] Comment on above: Performed By: #### A BG ####[facility] Rdsfktuavq[address] [place] [id number]. Jesus White Base excess Calc (Bld) [Moles/Vol] -0.4000 mmol/L Normal -2.0-2.0 [facility] Comment on above: Performed By: #### A BG ####[facility] Terolxefvt[address] [place] [address]Dr. Jesus White BIPAP PRESSURE Normal [facility] Comment on above: Performed By: #### A BG ####[facility] Ebqcdkhwyq[address] [place], [place] [address]Dr. Jesus White CPAP Normal [facility] Comment on above: Performed By: #### A BG ####[facility] P[address]xvrmkduq[address] [place] [address]Dr. Jesus White FIO2 Normal [facility] Comment on above: Performed By: #### A BG ####[facility] Gifrvrqtnb9[address] [place], [place] [address]Dr. Jesus White HCO3 (Bld) [Moles/Vol] 24.7 mmol/L Normal 22.0-26.0 [facility] Comment on above: Performed By: #### A BG ####[facility] Ktdkdwxzra[address] [place], [place] [address]Dr. Jesus White LPM Normal [facility] Comment on above: Performed By: #### A BG ####[facility] Gyywitwrxd7847[address] [place], [place] [address]Dr. Jesus White MINUTE VOLUME Normal [facility] Comment on above: Performed By: #### A BG ####[facility] Hzkdllzhkj1118[address] [place], [place] [address]Dr. Jesus White Oxygen (Bld) [Partial pressure] 75.3 mm[Hg] Critically low 80.0-100.0 [facility] Comment on above: Performed By: #### A BG ####[facility] Chzabooacv3[address] [place], [place] [address]Dr. Jesus White Oxygen saturation in Blood 94.7 % Critically low 95.0-100.0 [facility] Comment on above: Performed By: #### A BG ####[facility] Sqbfjmfwvc4[address] [place], [place] [address]Dr. Jesus White PCO2 42.0 mmHg Normal 35.0-45.0 [facility] Comment on above: Performed By: #### A BG ####[facility] Jcrsxlxxkg[address] [place] [address]Dr. Jesus White PEEP [facility] Comment on above: Performed By: #### A BG ####[facility] Hhxcrficsh[address] [place] [address]DrJordin White pH (Bld) 7.379 [pH] Normal 7.350-7.450 [facility] Comment on above: Performed By: #### A BG ####[facility] Qaadyrphkw[address] [place] [address]Dr. Jesus White PIP [facility] Comment on above: Performed By: #### A BG ####[facility] Lirdcylcvj[address] [place] [address]DrJordin White PS [facility] Comment on above: Performed By: #### A BG ####[facility] Qbcdhxwieo16[address] [place] [address]DrJordin White PUNCTURE SITE LR [facility] Comment on above: Performed By: #### A BG ####[facility] Blwkvsuasg[address] [place], [place] [address]DrJordin White RATE [facility] Comment on above: Performed By: #### A BG ####[facility] Nhtfndbbtn[address] [place] [address]DrJordin White VENT MODE [facility] Comment on above: Performed By: #### A BG ####[facility] Swtnhtbrkx10[address] [place] [address]DrJordin White [place] [facility] Comment on above: Performed By: #### A BG ####[facility] Fcssjhldrf7[address] [place], [place] [address]DrJordin White CBC AUTO DIFFon 04-08-2022 BASO # 0.1 103/ul Normal 0.0-0.1 [facility] Comment on above: Performed By: #### C BC #### [facility] [address] [address] [address] Jesus White Basophils/100 WBC (Bld) 0.6 % Normal 0.2-2.0 [facility] Comment on above: Performed By: #### C BC #### [facility] [address] [address] [address] Jesus White EO # 0.2 103/ul Normal 0.0-0.7 [facility] Comment on above: Performed By: #### C BC #### [facility] [address] [place] [address] Dr. Jesus White Eosinophils/100 WBC (Bld) 1.5 % Normal 0.9-7.0 [facility] Comment on above: Performed By: #### C BC #### [facility] [address] [place] [address] Dr. Jesus White Erythrocyte distribution width (RBC) [Ratio] 13.2 % Normal 11.0-15.0 [facility] Comment on above: Performed By: #### C BC #### [facility] [address] [place] [address] Dr. Jesus White Hematocrit (Bld) [Volume fraction] 41.7 % Critically low 42.0-54.0 [facility] Comment on above: Performed By: #### C BC #### [facility] [address] [place] [address] Dr. Jesus White Hemoglobin (Bld) [Mass/Vol] 14.3 g/dL Normal 14.0-18.0 [facility] Comment on above: Performed By: #### C BC #### [facility] [address] [place] [address] Dr. Jesus White IG # 0.03 10e3/ul Normal 0.00-0.03 [facility] Comment on above: Performed By: #### C BC #### [facility] [address] [place] [address] Dr. Jesus White IG % 0.3 % Normal 0.0-0.5 [facility] Comment on above: Performed By: #### C BC #### [facility] [address] [place] [address] Dr. Jesus White LYMPH # 5.6 103/ul Critically high 1.2-3.8 [facility] Comment on above: Performed By: #### C BC #### [facility] [address] [place] [address] Dr. Jesus White Lymphocytes/100 WBC (Bld) 57.0 % Normal 20.5-60.0 [facility] Comment on above: Performed By: #### C BC #### [facility] [address] [place] [address] Dr. Jesus White MANUAL DIFF REQ NO Normal [facility] Comment on above: Performed By: #### C BC #### [facility] [address] [place] [address] Dr. Jesus White MCH (RBC) [Entitic mass] 31.4 pg Normal 25.9-34.0 [facility] Comment on above: Performed By: #### C BC #### [facility] [address] [place] [address] Dr. Jesus White MCHC (RBC) [Mass/Vol] 34.3 g/dL Normal 29.9-35.2 [facility] Comment on above: Performed By: #### C BC #### [facility] [address] [place] [address] Dr. Jesus White MCV (RBC) [Entitic vol] 91.6 fL Normal 80.0-94.0 [facility] Comment on above: Performed By: #### C BC #### [facility] [address] [place] [address] Dr. Jesus White MONO # 0.5 103/ul Normal 0.3-0.8 [facility] Comment on above: Performed By: #### C BC #### [facility] [address] [place] [address] Dr. Jesus White Monocytes/100 WBC (Bld) 5.1 % Normal 1.7-12.0 [facility] Comment on above: Performed By: #### C BC #### [facility] [address] [place] [address] Dr. Jesus White NEUT # 3.5 103/ul Normal 1.4-6.5 [facility] Comment on above: Performed By: #### C BC #### [facility] [address] [address] [address] Jesus White Neutrophils/100 WBC (Bld) 35.5 % Critically low 43.0-75.0 [facility] Comment on above: Performed By: #### C BC #### [facility] [address] [address] [address] Jesus White Platelet mean volume (Bld) [Entitic vol] 9.5 fL Normal 9.5-13.5 [facility] Comment on above: Performed By: #### C BC #### [facility] [address] [address] [address] Jesus White PLT 222 103/ul Normal 150-450 [facility] Comment on above: Performed By: #### C BC #### [facility] [address] [address] [address] Jesus White RBC 4.55 106/ul Critically low 4.70-6.10 [facility] Comment on above: Performed By: #### C BC #### [facility] [address] [address] [address] Jesus White WBC 9.8 103/ul Normal 4.0-11.0 [facility] Comment on above: Performed By: #### C BC #### [facility] [address] [place] [address] STROKE HEAD WOon [...] ERNA LEON Date: 2022-04-08 18:50 Normal [facility]on SARS-CoV-2 (COVID-19) RNA PAUL+probe Ql (Unsp spec) Not detected Normal NOT DETECTED [facility] Comment on above: Result Comment: When [...] for this test is supported by the [employer] and [employer] Service's declaration that [...] used). Performed By: #### C VDTBH #### [facility] [address] [place] [address] Dr. Jesus White ETHANOL (BLD ALC)on 04-08-20 22 ALC NOTE NOTE: 80 mg/dl is the legal limit for a blood alcohol level Normal [facility] Comment on above: Performed By: #### E TH ####[facility] [address] [place] [id number]. Jesus White Ethanol [Mass/Vol] 344 mg/dL Normal [facility] Comment on above: Performed By: #### E TH ####[facility] X[address]bfwedhb[address] [id number]. Jesus White PROF 14(COMP METB)on 022 Albumin [Mass/Vol] 3.5 g/dL Normal 3.4-5.0 [facility] Comment on above: Performed By: #### C MP, HSTROPN #### [facility] [address] [address] [address] Jesus White Albumin/Globulin [Mass ratio] 1.0 {ratio} Normal [facility] Comment on above: Performed By: #### C JORGE HSTROPN #### [facility] [address] [place] [address] Dr. Jesus White ALP [Catalytic activity/Vol] 41 U/L Critically low 46-116 [facility] Comment on above: Performed By: #### C JORGE HSTROPN #### [facility] [address] [place] [address] Dr. Jesus White ALT [Catalytic activity/Vol] 28 U/L Normal 16-63 [facility] Comment on above: Performed By: #### C JORGE HSTROPN #### [facility] [address] [place] [address] Dr. Jesus White Anion gap [Moles/Vol] 12.1 mmol/L Normal [facility] Comment on above: Performed By: #### C JORGE HSTROPN #### [facility] [address] [place] [address] Dr. Jesus White AST [Catalytic activity/Vol] 19 U/L Normal 15-37 [facility] Comment on above: Performed By: #### C JORGE HSTROPN #### [facility] [address] [place] [address] Dr. Jesus White Bilirubin [Mass/Vol] 0.3 mg/dL Normal 0.2-1.0 [facility] Comment on above: Performed By: #### C JORGE HSTROPN #### [facility] [address] [place] [address] Dr. Jesus White Calcium [Mass/Vol] 8.8 mg/dL Normal 8.5-10.1 [facility] Comment on above: Performed By: #### C JORGE, HSTROPN #### [facility] [address] [place] [address] Dr. Jesus White Chloride [Moles/Vol] 105 mmol/L Normal 98-107 [facility] Comment on above: Performed By: #### C JORGE, HSTROPN #### [facility] [address] [address] [address] Jesus White CO2 [Moles/Vol] 24.8 mmol/L Normal 21.0-32.0 [facility] Comment on above: Performed By: #### C MP, HSTROPN #### [facility] [address] [place] [address] Dr. Jesus White Creatinine [Mass/Vol] 1.53 mg/dL Critically high 0.70-1.30 [facility] Comment on above: Performed By: #### C MP, HSTROPN #### [facility] [address] [place] [address] Dr. Jesus White EGFR-AF JAMAICAN 55 mL/min/1.73m2 Critically low >=60 [facility] Comment on above: Result Comment: Prev iously reported as: (blank) On 04/08/2022 19:15 By [facility] Performed By: #### C MP, HSTROPN #### [facility] [address] [place] [address] Dr. Jesus White EGFR-NON AF JAMAICAN 46 mL/min/1.73m2 Critically low >=60 [facility] Comment on above: Result Comment: Prev iously reported as: (blank) On 04/08/2022 19:15 By [facility] Performed By: #### C MP, HSTROPN #### [facility] [address] [place] [address] Dr. Jesus White Globulin (S) [Mass/Vol] 3.5 g/dL Normal [facility] Comment on above: Performed By: #### C MP, HSTROPN #### [facility] [address] [place] [address] Dr. Jesus White Glucose [Mass/Vol] 116 mg/dL Critically high 74-106 [facility] Comment on above: Performed By: #### C MP, HSTROPN #### [facility] [address] [place] [address] Dr. Jesus White Potassium [Moles/Vol] 3.9 mmol/L Normal 3.5-5.1 [facility] Comment on above: Performed By: #### C MP, HSTROPN #### [facility] [address] [address] [address] Jesus White Protein [Mass/Vol] 7.0 g/dL Normal 6.4-8.2 [facility] Comment on above: Performed By: #### C MP, HSTROPN #### [facility] [address] [address] [address] Jesus White Sodium [Moles/Vol] 138 mmol/L Normal 136-145 [facility] Comment on above: Performed By: #### C MP, HSTROPN #### [facility] [address] [address] [address] Jesus White Urea nitrogen [Mass/Vol] 17.0 mg/dL Normal 7.0-18.0 [facility] Comment on above: Performed By: #### C MP, HSTROPN #### [facility] [address] [address] [address] Jesus White Urea nitrogen/Creatinine [Mass ratio] 11.1 mg/mg Normal [facility] Comment on above: Performed By: #### C MP, HSTROPN #### [facility] [address] [address] [address] Jesus White PROTIMEon 04-08-2022 INR Coag (PPP) [Relative time] 1.00 {INR} Normal [facility] Comment on above: Performed By: #### P TT, PT ####[facility] [address] [place] [address]Dr. Jesus White INR GUIDELINES SEE BELOW Normal [facility] Comment on above: Result Comment: JULIET RED INR: 2.0 - 3.0 CONDITIONS NOT LISTED BELOW 2.5 - 3.5 FOR PROSTHETIC HEART VALVE REPLACEMENT 2.5 - 3.5 RECURRENT THROMBOSIS Performed By: #### P TT, PT ####[facility] [address]xc[address] [place] [address]Dr. Jesus White PT Coag (PPP) [Time] 10.8 s Normal 9.0-11.6 [facility] Comment on above: Performed By: #### P TT, PT ####[facility] [address] [place] [id number]. Jesus White PTTon 04-08-2022 aPTT Coag (Bld) [Time] 24.8 s Normal 22.3-36.2 [facility] Comment on above: Performed By: #### P TT, PT ####[facility] [address]wnblvhx[address] [place] [id number] White TROPONIN, HIGH SENSITIVITYon 04-08-2022 HSTROP 16.7 pg/mL Normal 4.0-76.1 [facility] Comment on above: Result Comment: CUT- OFF POINTS HAVE BEEN ESTABLISHED BASED ON THE FOURTH UNIVERSAL DEFINITIONS OF MYOCARDIAL INFARCTION. THE UPPER REFERENCE LIMIT (URL) OF TROPONIN, DEFINED THE 99TH PERCENTILE OF cTnI DISTRIBUTION IN A REFERENCE POPULATION, HAS BEEN CONFIRMED THE DECISION THRESHOLD FOR NE DIAGNOSIS. Performed By: #### C MP, HSTROPN #### [facility] [address] [place] [address] Dr. Jesus White PROF CHEM 8 (BAS METB)on Anion gap [Moles/Vol] 13.3 mmol/L Normal [facility] Comment on above: Performed By: #### B MP #### [facility] [address] [place] [address] Dr. Jesus White Calcium [Mass/Vol] 9.7 mg/dL Normal 8.5-10.1 [facility] Comment on above: Performed By: #### B MP #### [facility] [address] [place] [address] Dr. Jesus White Chloride [Moles/Vol] 103 mmol/L Normal 98-107 [facility] Comment on above: Performed By: #### B MP #### [facility] [address] [place] [address] Dr. Jesus White CO2 [Moles/Vol] 28.4 mmol/L Normal 21.0-32.0 [facility] Comment on above: Performed By: #### B MP #### [facility] [address] [place] [address] Dr. Jesus White Creatinine [Mass/Vol] 1.21 mg/dL Normal 0.70-1.30 [facility] Comment on above: Performed By: #### B MP #### [facility] [address] [address] [address] Jesus White EGFR-AF JAMAICAN >60 Normal >=60 [facility] Comment on above: Performed By: #### B MP #### [facility] [address] [address] [address] Jesus White EGFR-NON AF JAMAICAN 60 mL/min/1.73m2 Normal >=60 [facility] Comment on above: Performed By: #### B MP #### [facility] [address] [address] [address] Jesus White Glucose [Mass/Vol] 95 mg/dL Normal 74-106 [facility] Comment on above: Performed By: #### B MP #### [facility] [address] [address] [address] Jesus White Potassium [Moles/Vol] 3.7 mmol/L Normal 3.5-5.1 [facility] Comment on above: Performed By: #### B MP #### [facility] [address] [address] [address] Jesus White Sodium [Moles/Vol] 141 mmol/L Normal 136-145 [facility] Comment on above: Performed By: #### B MP #### [facility] [address] [address] [address] Jesus White Urea nitrogen [Mass/Vol] 12.0 mg/dL Normal 7.0-18.0 [facility] Comment on above: Performed By: #### B MP #### [facility] [address] [address] [address] Jesus White Urea nitrogen/Creatinine [Mass ratio] 9.9 mg/mg Normal [facility] Comment on above: Performed By: #### B MP #### [facility] [address] [address] [address] Jesus White ER URINE PROFILEon 2 Bilirubin Ql (U) Negative Normal NEGATIVE [facility] Comment on above: Performed By: #### VALERIO GOULDRO ####[facility] [address] [place] [address]Dr. Jesus White Clarity (U) CLEAR Normal CLEAR [facility] Comment on above: Performed By: #### VALERIO GOULDRO ####[facility] F[address]awguwgoi[address] [place] [address]Dr. Carollan White Color (U) LT. YELLOW Normal YELLOW [facility] Comment on above: Performed By: #### VALERIO GOULDRO ####[facility] Dnktliigey[address] [place] [address]Dr. Jesus White ERUAHD A micrscopic examination will be performed if indicated. Normal [facility] Comment on above: Performed By: #### VALERIO GOULDRO ####[facility] Sabbawedob[address] [place], [place] [address]Dr. Jesus White Glucose Ql (U) Negative Normal NEGATIVE [facility] Comment on above: Performed By: #### VALERIO GOULDRO ####[facility] C[address]mtaytbds[address] [place], [place] [address]Dr. Yilan White Hemoglobin Ql (U) Negative Normal NEGATIVE [facility] Comment on above: Performed By: #### VALERIO GOULDRO ####[facility] Gwyytodwrc[address] [place], [place] [address]Dr. Jesus White Ketones Ql (U) Negative Normal NEGATIVE [facility] Comment on above: Performed By: #### VALERIO GOULDRO ####[facility] N[address]fs[address]rm[address] [place], [place] [address]Dr. Yilan White LEUKOCYTES Negative Normal NEGATIVE [facility] Comment on above: Performed By: #### VALERIO GOULDRO ####[facility] Itrghghbpb[address] [place], [place] [address]Dr. Yilan White Nitrite Ql (U) Negative Normal NEGATIVE [facility] Comment on above: Performed By: #### VALERIO GOULDRO ####[facility] Ftlrsoxist[address] [place], [place] [address]Dr. eJsus White pH (U) 6.0 [pH] Normal 5-9 [facility] Comment on above: Performed By: #### CALEB GOULD ####[facility] [address]xtliv[address] [place] [address]Dr. Jesus White SPEC GRAVITY <=1.005 Abnormal 1.005-<=1.025 [facility] Comment on above: Performed By: #### CALEB GOULD ####[facility] [address] [place] [address]Dr. Jesus White UA PROTEIN Negative Normal NEGATIVE/ TRACE [facility] Comment on above: Performed By: #### CALEB GOULD ####[facility] Zrrmefriig[address] [place], [place] [address]Dr. Jesus White UR MICRO IND INDICATED Normal [facility] Comment on above: Performed By: #### CALEB GOULD ####[facility] Wwwkkfpvnt[address] [place], [place] [address]Dr. Jesus White Urobilinogen Qn (U) 0.2 {Dash'U}/dL Normal 0.2 - 1. 0 [facility] Comment on above: Performed By: #### CALEB GOULD ####[facility] Wskkhhgxwg[address] [place], [place] [address]Dr. Jesus White URINE MICROSCOPIC ONLYon BACTERIA NONE SEEN Normal NONE SEEN [facility] Comment on above: Performed By: #### CALEB GOULD ####[facility] Dalbeltbkm[address] [place], [place] [address]Dr. Jesus White Bacteria identified Cx Nom (U) NOT INDICATED Normal [facility] Comment on above: Performed By: #### CALEB GOULD ####[facility] Riypuptfji[address] [place], [place] [address]Dr. Jesus White CAST NONE SEEN Normal NONE SEEN [facility] Comment on above: Performed By: #### CALEB GOULD ####[facility] Ssbolmvtun[address] [place], [place] [address]Dr. Jesus White Crystals LM Nom (Urine sed) NONE SEEN Normal NONE SEEN [facility] Comment on above: Performed By: #### Júnior BARNES UMICRO ####[facility] [address]asmfen[address] [place] [address]Dr. Jesus White Epithelial cells LM Ql (Urine sed) RARE Normal NONE SEEN /RARE [facility] Comment on above: Performed By: #### E RUR UMICRO ####[facility] [address]ts[address] [place] [address]Dr. Jesus White MUCOUS NONE SEEN Normal NONE SEEN [facility] Comment on above: Performed By: #### E MOLLY UMICRO ####[facility] [address]eqzod[address] [place] [address]Dr. Jesus White RBC NONE SEEN Abnormal 0-2 [facility] Comment on above: Performed By: #### Júnior BARNES UMICRO ####[facility] [address]pczdcu[address] [place] [address]Dr. Jesus White WBC NONE SEEN Normal NONE SEEN [facility] Comment on above: Performed By: #### E RUPaul UMICRO ####[facility] [address]ub[address] [place] [address]Dr. Jesus White US CRYSTAL DOP LEG LTon [...] VARSHA BARNARD Date: 2022-01-01 08:49 Normal [facility] Vital Signs Date Time Vital Sign Value Performing Mayank hooker 04-23-2024 14:58-0500 Body height 172.7 cm Nicolle Rodriguez [employer] Work Phone: [facility] 04-23-2024 14:58-0500 Body mass index (BMI) [Ratio] 35.58 kg/m2 Nicolle Rodriguez [employer] Work Phone: [facility] 04-23-2024 14:58-0500 Body temperature 97.3 [degF] Nicolle Rodriguez [employer]PER[employer] Work Phone: [facility] 04-23-2024 14:58-0500 Body weight 106.14 kg Nicolle Rodriguez [employer] Work Phone: [facility] 04-23-2024 14:58-0500 Diastolic blood pressure 60 mm[Hg] Nicolle Rodriguez [employer] Work Phone: [facility] 04-23-2024 14:58-0500 Heart rate 62 /min Nicolle Rodriguez [employer]PER[employer] Work Phone: [facility] 04-23-2024 14:58-0500 Respiratory rate 22 /min Nicolle Rodriguez [employer] Work Phone: [facility] 04-23-2024 14:58-0500 SaO2% (BldA) [Mass fraction] 97 % Nicolle Rodriguez [employer] Work Phone: [facility] 04-23-2024 14:58-0500 Systolic blood pressure 130 mm[Hg] Nicolle Rodriguez [employer] Work Phone: [facility] 03-19-2024 08:59-0400 Body mass index (BMI) [Ratio] 33.06 kg/m2 Nicolle Rodriguez [employer] Work Phone: [facility] 03-19-2024 08:59-0400 Body temperature 97.3 [degF] Nicolle Rodriguez [employer] Work Phone: [facility] 03-19-2024 08:59-0400 Body weight 104.51 kg Nicolle Burrowspatrick [employer] Work Phone: [facility] 03-19-2024 08:59-0400 Diastolic blood pressure 80 mm[Hg] Nicolle Rodriguez [employer] Work Phone: [facility] 03-19-2024 08:59-0400 Heart rate 63 /min Nicolle Rodriguez [employer] Work Phone: [facility] 03-19-2024 08:59-0400 SaO2% (BldA) [Mass fraction] 98 % Nicolle Choprazpatrick [employer] Work Phone: [facility] [facility]2024 08:59-0400 Systolic blood pressure 162 mm[Hg] Nicolle Rodriguez [employer]AT [employer] PLANT UTILITY SUPERVISOR Work Phone: [facility] 01-17-2024 08:08-0400 Blood Pressure Location Will StyleChat by [employer] [facility] 01-17-2024 08:08-0400 Diastolic blood pressure 84 mm[Hg] Will COOK [facility] 01-17-2024 08:08-0400 Heart rate 62 /min Will [employer] by [employer] [facility] 01-17-2024 08:08-0400 Respiratory rate 19 /min Will [employer] by [employer] [facility] 01-17-2024 08:08-0400 Systolic blood pressure 151 mm[Hg] Will COOK [facility] 10-17-2023 10:02-0400 Blood Pressure Location Will StyleChat by [employer] [facility] 10-17-2023 10:02-0400 Diastolic blood pressure 66 mm[Hg] Will HOLLINS [facility] 10-17-2023 10:02-0400 Heart rate 66 /min Will HOLLINS [facility] 10-17-2023 10:02-0400 Respiratory rate 18 /min Will HOLLINS [facility] 10-17-2023 10:02-0400 Systolic blood pressure 120 mm[Hg] Will HOLLINS [facility] 10-13-2023 13:17-0400 Body height 177.8 cm [facility] 10-13-2023 13:17-0400 Body mass index (BMI) [Ratio] 32.5 kg/m2 [facility] 10-13-2023 13:17-0400 Body temperature 97 [degF] [facility] 10-13-2023 13:17-0400 Body weight 102.96 kg [facility] 10-13-2023 13:17-0400 Diastolic blood pressure 70 mm[Hg] [facility] 10-13-2023 13:17-0400 Heart rate 74 /min [facility] 10-13-2023 13:17-0400 Respiratory rate 20 /min [facility] 10-13-2023 13:17-0400 SaO2% (BldA) [Mass fraction] 97 % [facility] 10-13-2023 13:17-0400 Systolic blood pressure 120 mm[Hg] [facility] 03-17-2023 15:20-0400 Body height 177.8 cm Jose Julien Other [employer] [facility] [employer] Other 03-17-2023 15:20-0400 Body mass index (BMI) [Ratio] 31.96 kg/m2 Jose Julien Other [employer] Other 03-17-2023 15:20-0400 Body temperature 96.9 [degF] Jose Julien Other [employer] Other 03-17-2023 15:20-0400 Body weight 101.06 kg Jose Julien Other [employer] Other 03-17-2023 15:20-0400 Diastolic blood pressure 73 mm[Hg] Jose Julien Other [employer] Other 03-17-2023 15:20-0400 Respiratory rate 18 /min Jose Julien Other [employer] Other 03-17-2023 15:20-0400 SaO2% (BldA) [Mass fraction] 98 % Jose Julien Other [employer] Other 03-17-2023 15:20-0400 Systolic blood pressure 134 mm[Hg] Jose Julien Other [employer] Other 09-30-2022 11:20-0400 Body height 177.8 cm Jose Julien Other [employer] Other 09-30-2022 11:20-0400 Body mass index (BMI) [Ratio] 33.6 kg/m2 Jose Julien Other [employer] Other 09-30-2022 11:20-0400 Body temperature 96.3 [degF] Jose Julien Other [employer] Other 09-30-2022 11:20-0400 Body weight 106.23 kg Jose Julien Other [employer] Other 09-30-2022 11:20-0400 Diastolic blood pressure 64 mm[Hg] Jose Julien Other [employer] Other 09-30-2022 11:20-0400 Respiratory rate 18 /min Jose Julien Other [employer] Other 09-30-2022 11:20-0400 SaO2% (BldA) [Mass fraction] 99 % Jose Julien Other [employer] Other 09-30-2022 11:20-0400 Systolic blood pressure 138 mm[Hg] Jose Julien Other [employer] Other 03-22-2022 14:00-0400 Body height 177.8 cm Jose Julien Other [employer] Other 03-22-2022 14:00-0400 Body mass index (BMI) [Ratio] 33.14 kg/m2 Jose Julien Other [employer] Other 03-22-2022 14:00-0400 Body temperature 95.9 [degF] Jose Julien Other [employer] Other 03-22-2022 14:00-0400 Body weight 104.78 kg Jose Julien Other [employer] Other 03-22-2022 14:00-0400 Diastolic blood pressure 70 mm[Hg] Jose Julien Other [employer] Other 03-22-2022 14:00-0400 Respiratory rate 18 /min Jose Julien Other [employer] Other 03-22-2022 14:00-0400 SaO2% (BldA) [Mass fraction] 97 % Jose Julien Other [employer] Other 03-22-2022 14:00-0400 Systolic blood pressure 119 mm[Hg] Jose Julien Other [employer] Other 06-18-2021 11:40-0500 Body height 177.8 cm Jose Julien Other [employer] Other 06-18-2021 11:40-0500 Body mass index (BMI) [Ratio] 37.22 kg/m2 Jose Julien Other [employer] Other 06-18-2021 11:40-0500 Body temperature 95.9 [degF] Jose Julien Other [employer] Other 06-18-2021 11:40-0500 Body weight 117.66 kg Jose Julien Other [employer] Other 06-18-2021 11:40-0500 Diastolic blood pressure 70 mm[Hg] Jose Julien Other [employer] Other 06-18-2021 11:40-0500 Respiratory rate 18 /min Jose Julien Other [employer] Other 06-18-2021 11:40-0500 SaO2% (BldA) [Mass fraction] 97 % Jose Julien Other [employer] Other 06-18-2021 11:40-0500 Systolic blood pressure 124 mm[Hg] Jose Victoria Other [employer] Other Encounters Encounter Date Encounter Type Care Provider Facility Start: 05-22-2024 ambulatory Will HOLLINS Facility :[facility] Start: 04-23-2024 End: 04-23-2024 Office outpatient visit 15 minutes Nicolle Rodriguez [employer] SUPERVISOR Work Phone: [facility] Comment on above: Bronchitis (Primary Dx); Viral upper respiratory tract infection Start: 04-23-2024 End: 04-23-2024 ambulatory NICOLLE RODRIGUEZ Not Available Start: 04-23-2024 End: 04-23-2024 Bamboo flowsheet Nicolle Rodriguez [employer] SUPERVISOR Work Phone: [facility] Start: 04-23-2024 End: 04-23-2024 Bamboo flowsheet Nicolle Rodriguez [employer] UT[employer] SUPERVISOR Work Phone: [facility] Start: 04-18-2024 End: 04-18-2024 Clinisync Result Encounter Generic External Data Provider [facility] Unsolicited Start: 04-18-2024 End: 04-18-2024 Clinisync Result Encounter Generic External Data Provider [facility] Unsolicited Start: 03-27-2024 End: 03-27-2024 Refill Nicolle Rodriguez [employer] SUPERVISOR Work Phone: [facility] Comment on above: Hyperlipidemia, unsp ecified (CMS/HCC); Essential (primary) hypertension (CMS/HCC); Hyperuricemia; Gastroesophageal reflux disease with esophagitis without hemorrhage Start: 03-20-2024 End: 03-20-2024 Orders Only Nicolle Rodriguez [employer] SUPERVISOR Work Phone: [facility] Comment on above: Acute bacterial sinu sitis (Primary Dx) Start: 03-19-2024 End: 03-19-2024 Bamboo flowsheet Nicolle Smithk [employer] UTILITY SUPERVISOR Work Phone: [facility] Start: 03-19-2024 End: 03-19-2024 Bamboo flowsheet Nicolle Burrowspatrick [employer] SUPERVISOR Work Phone: [facility] Start: 03-19-2024 End: 03-19-2024 Clinisync Result Encounter Nicolle Jennifer [employer] SUPERVISOR Work Phone: [facility] Unsolicited Start: 03-19-2024 End: 03-19-2024 Office outpatient visit 15 minutes Nicolle Jennifer [employer] SUPERVISOR Work Phone: [facility] Comment on above: Viral upper respirat ory tract infection (Primary Dx); Acute right ankle pain; Centrilobular emphysema (CMS/HCC); Ankle injury, right, initial encounter Start: 03-19-2024 End: 03-19-2024 Refill Nicolle Rodriguez [employer] SUPERVISOR Work Phone: [facility] Comment on above: Hyperuricemia Start: 01-17-2024 End: 01-17-2024 ambulatory Will HOLLINS Facility:[facility] Start: 01-17-2024 End: 01-17-2024 Patient encounter procedure Will HOLLINS [facility] Start: 11-24-2023 End: 11-24-2023 ambulatory SHAIKH KALIN Not Available Start: 10-17-2023 End: 10-17-2023 ambulatory Will HOLLINS Facility:[facility] Start: 10-17-2023 End: 10-17-2023 Patient encounter procedure Will HOLLINS [facility] Start: 10-13-2023 End: 10-13-2023 ambulatory [facility] Work Phone: Start: 10-13-2023 End: 10-13-2023 Patient encounter procedure Replaced By [facility] Physician [facility] Fred Work Phone: Start: 10-04-2023 Non-patient / Non-visit Replaced By [facility] Physician [facility] [employer] Work Phone: Start: 09-28-2023 End: 09-28-2023 ambulatory PATEL FAWWAD Not Available Start: 08-23-2023 End: 08-23-2023 ambulatory PATEL FAWWAD Not Available Start: 05-10-2023 Patient encounter procedure Nicolle Rodriguez [employer]ILITY SUPERVISOR Work Phone: [facility] Start: 05-10-2023 End: 05-10-2023 ambulatory PATEL FAWWAD Not Available Start: 03-17-2023 End: 03-17-2023 ambulatory Jose Julien Other [place] [employer] Other Start: 03-17-2023 Office outpatient vi sit 15 minutes Jose Julien [facility] Start: 10-11-2022 End: 10-12-[address] WILL HOLLINS Facility:[facility] Start: 09-30-2022 End: 09-30-2022 ambulatory Jose Julien Other [place] [employer] Other Start: 09-30-2022 Office outpatient vi sit 15 minutes Jose Julien [facility] Start: 08-23-2022 End: 08-24-2022 ambulatory PATEL H FAWWAD Facility:[facility] Start: 07-05-2022 End: 07-06-2022 ambulatory RUKHSANA SAMSA . Facility:[facility] Start: 04-08-2022 End: 04-08-[address] COLTEN NUNO . Facility:[facility] Start: 03-24-2022 End: 03-25-2022 ambulatory RUKHSANA SAMSA . Facility:[facility] Start: 03-22-2022 End: 03-22-2022 ambulatory Jose Julien Other [place] [employer] Other Start: 03-22-2022 Office outpatient vi sit 25 minutes Jose Julien [facility] Start: 02-16-2022 End: 02-17-2022 ambulatory SHAIKH Nancy GAGNON Facility:[facility] Start: 01-01-2022 End: 01-01-[address] LUNA DUFFY . Facility:[facility] Start: 06-21-2021 End: 06-21-2021 ambulatory Jose Julien Other [employer] Other Start: 06-21-2021 Telephone encounter Jose Julien [facility] Start: 06-18-2021 End: 06-18-2021 ambulatory Jose Julien Other [employer] Other Start: 06-18-2021 Office outpatient vi sit 25 minutes Jose Julien [facility] Procedures Date Procedure Procedure Detail Performing Clinician Start: 04-18-2024 MHPT PSA, DIAGNOSTIC Ge neric External Data Provider Start: 03-19-2024 SARS-COV-2 AG* Nicolle Rodriguez [employer] SUPERVISOR Work Phone: Start: 03-19-2024 [facility] INFLUENZA A AND B AG Nicolle Burrowspatrick [employer] SUPERVISOR Work Phone: Start: 10-11-[address] WINIFRED HOLLINS Comment on above: Performed By: #### P SAD ####[place] [id number] White Start: 03-24-2011 Brachytherapy Will PIZAROR Start: 06-06-2000 Excision of left kidney Will [...] [facility] [address] [place] [address] Nicolle Rodriguez, [employer]ILITY SUPERVISOR [address] [place] [address] [facility] Start: 05-10-2024 Medicare Annual Wellness (AWV) Medicare Annual Wellness (AWV) [facility] Start: 04-23-2024 End: 04-23-2024 Patient encounter procedure 04/23/2024 3:00 PM EST Office Visit [facility] [address] [place] [id number] Nicolle Rodriguez, [employer] SUPERVISOR [address] [place] [address] Arrived [facility] Comment on above: Arrived Start: 03-19-2024 End: 03-19-2025 COVID-19 / FLU A/B / RSV PCR ([facility]) COVID-19 / FLU A/B / RSV PCR ([facility]) Lab Routine Viral upper respiratory tract infection Expected: 03/19/2024 (Approximate), Expires: 03/19/2025 [facility] Work Phone: Comment on above: Expected: 03/19/2024 (Approximate), Expires: 03/19/2025 Start: 03-19-2024 End: 03-19-2024 Patient encounter procedure 03/19/2024 9:00 AM EDT Office Visit [facility] [address] [place] [phone] Nicolle Rodriguez, [employer] SUPERVISOR [address] [place] [phone] Arrived [facility] Comment on above: Arrived Start: 02-05-2024 Influenza vaccination Influenza Vacc ine (#1) [facility] Start: 02-21-1961 Pneumococcal Vaccine : 65+ Years (1 of 2 - PCV) Pneumococcal Vaccine: 65+ Years (1 of 2 - PCV) [facility] Start: 1955 Screening for malign ant neoplasm of colon [facility] Renal function 2000 panel - Serum or Plasma [facility] XR Ankle - right 3 Views XR ankle 3+ views right Imaging Routine Acute right ankle pain Ordered: 03/19/2024 [facility] Comment on above: Ordered: 03/19/2024 [facility] Immunizations Immunization Date Immunization Notes Care Provider Blake blair 03-17-2023 influenza virus vaccine, unspecified formulation Will HOLLINS [facility] 03-17-2023 Influenza, High-dose Seasonal, Quadrivalent, Preservative Free Nicolle Rodriguez [employer] SUPER[employer]OR Work Phone: [facility] 03-27-2022 influenza virus vaccine, unspecified formulation Will [employer] by [employer] [facility] 03-27-2022 Influenza, High-dose Seasonal, Quadrivalent, Preservative Free Nicolle Rodriguez [employer] SUPERVISOR Work Phone: [facility] 05-27-2021 SARS-CoV-2 (COVID-19 ) mRNA-1273 vaccine Will Style[employer] by [employer] [facility] Comment on above: Result Comment: [facility] 03-26-2021 influenza virus vaccine, unspecified formulation Will StyleChat by [employer] [facility] 03-26-2021 Influenza, High-dose Seasonal, Quadrivalent, Preservative Free Nicolle Rodriguez [employer] SUPERVISOR Work Phone: [facility] 11-21-2020 SARS-CoV-2 (COVID-19 ) mRNA-1273 vaccine WillApp47 [facility] 10-16-2020 SARS-CoV-2 (COVID-19 ) [id number] vaccine Will HOLLINS [facility] 02-05-2020 influenza virus vaccine, unspecified formulation Will HOLLINS [facility] 05-14-2014 influenza virus vaccine, unspecified formulation Will HOLLINS [facility] 05-14-2014 influenza, seasonal, injectable Nicolle Rodriguez NP Work Phone: [facility] Payers Date Payer Category Payer Medicaid [id number] 2012 Medicaid [place] [employer] [id number] 501 [id number] 1958 Medicare [id number] 1956 Unknown [id number] [id number] 1956 Unknown [id number] 2.16.840.1.732533.3.579.2.593 1956 Unknown [id number] 2.16.840.1.167200.3.579.2.593 1956 Unknown [id number] 2.16.840.1.768976.3.579.2.593 1956 Unknown [id number] 2.16.840.1.766769.3.579.2.593 1956 Unknown [id number] 2.16.840.1.190386.3.579.2.593 1956 Unknown [id number] 2.16.840.1.639461.3.579.2.593 1956 Unknown [id number] 2.16.840.1.700968.3.579.2.593 1956 Unknown [id number] 2.16.840.1.988964.3.579.2.727 1956 Unknown [id number] 2.16.840.1.882992.3.579.2.727 1956 Unknown [id number] 2.16.840.1.869293.3.579.2.727 1956 Unknown [id number] 2.16.840.1.895091.3.579.2.1259 1956 Unknown [id number] 2.16.840.1.441570.3.579.2.1259 1956 Unknown [id number] 2.16.840.1.340447.3.579.2.1259 1956 Unknown [id number] 2.16.840.1.076220.3.579.2.1259 1956 Unknown [id number] 2.16.840.1.931852.3.579.2.1259 1956 Unknown [id number] 2.16.840.1.588991.3.579.2.1259 Medicaid [employer] [id number] Self-pay Self Pay [id number] Unknown [employer] GHAZALA [id number] Social History Date Type Detail Facility Unknown if ever smoked [employer] Other Start: 05-10-2023 End: 11-24-2023 Sex Assigned At [facility] Start: 10-13-2023 [facility] Start: 1955 Sex Assigned At Male F [facility] Start: 10-17-2023 End: 01-17-2024 Tobacco smoking status Light tobacco smoker (finding) [facility] Tobacco smoking status Never [facility] Start: 11-24-2023 Tobacco smoking stat us PAIS Smokes tobacco daily [facility] History of [...] 01-17-2024 Functional Status N/A [facility] 10-17-2023 Functional Status N/A [facility] Clinical Notes 06-18-2021 to 04-24-2024 Nicolle Rodriguez [...] 69 y.o. male who presents for Follow-up ([facility] er f/up URI). HPI Was seen in [...] 20 MG tablet documented in this encounter [facility] 04-23-2024 Instructions Nicolle Rodriguez NP - 04/23/2024 [...] NEAREST EMERGENCY DEPARTMENT. documented in this encounter [facility] 03-19-2024 History of Presen t illness Narrative [...] (Injury 2 weeks ago with ankle ). [facility] Pulmonology- Dr. Rojas Cardiology- Dr. Victoria [...] COPD (chronic obstructive pulmonary disease) with emphysema ([facility]/HCC) URI (upper respiratory infection) - Primary Sinus congestion, runny nose, body aches X10 days. Discussed likely viral etiology. Ordered COVID/Flu/RSV panel. Recommended rest, fluids, OTC management for now. Relevant Orders COVID-19 / FLU A/B / RSV PCR ([facility]) Ankle injury, right, initial encounter Rolled ankle;e 2 weeks ago. Did not receive tx or imaging. Reports swelling and tenderness still Is able to bear weight and ambulate, but does report associated pain. Selling noted on observation. No discoloration observed. Xray ankle ordered. Other Visit Diagnoses Acute right ankle pain Relevant Orders XR ankle 3+ views right documented in this encounter [facility] 03-19-2024 Instructions Nciolle Rodriguez NP - 03/19/2024 9:00 AM EDT [...] NEAREST EMERGENCY DEPARTMENT. documented in this encounter [facility] 01-17-2024 Hospital Discharg e instructions Patient Education [...] if anything looks unusual. Men with a lldvjt-ncmj-pplulh risk for skin cancer may want to see a hse specialist (feller buncher operator) for an annual body check. What are the benefits of screening? Cancer screening is done to look for cancer in the very early stages, before it spreads and becomes harder to treat and before you would start to notice symptoms. Finding cancer early improves the chances of successful treatment. It may save your life. Where to find more information [employer]: www.cancer.org Centers for Disease Control and Prevention: www.cdc.gov National Cancer Jefferson: www.cancer.gov Contact a health care provider if: [...] provider. Document Revised: 10/19/2021 Document Reviewed: 04/18/2020 [employer] Patient Education 2022 [employer] [place]. Follow Up Care 10/17/2023 10:47:32 With:GURVINDER HENDRICKSON, Will Day, URL Address: [address] [place] [address]- When: Unknown [facility] 01-17-2024 Note Patient Education Oncology [...] if anything looks unusual. Men with a rdnwbr-phso-riqonx risk for skin cancer may want to see a hse specialist (feller buncher operator) for an annual body check. What are the benefits of screening? Cancer screening is done to look for cancer in the very early stages, before it spreads and becomes harder to treat and before you would start to notice symptoms. Finding cancer early improves the chances of success (more content not included)... [facility] 10-17-2023 Hospital Discharg e instructions Patient [...] similar to normal prostate cells (well differentiated). [place] 7: This indicates that the cancer cells look somewhat similar to normal prostate cells (moderately differentiated). [place] 8, 9, or 10: This indicates that [...] stress of having cancer. General instructions Take tveh-hqk-lfgcsfv and prescription medicines only as told by your health care provider. If you have to go to the hospital, notify your cancer specialist (oncologist). Keep all follow-up visits. This is important. Where to find more information [employer]: www.cancer.org [place] Society of Clinical Oncology: www.cancer.net National Cancer Jefferson: www.cancer.gov Contact a health care provider if: [...] provider. Document Revised: 08/19/2021 Document Reviewed: 08/19/2021 [employer] Patient Education 2022 [employer] [place]. Follow Up Care 10/15/2022 10:10:00 With:GURVINDER HENDRICKSON, Will Day, URL Address: [facility] [place] [address]- When: Unknown [facility] 03-17-2023 Evaluation note Encounter Date Diagnosis [...] Monitor LFTs and lipid profile with PCP. [employer] Other 04-27-2023 Evaluation note* Encounter Date Diagnosis [...] have gout. I have prescribed oral Allopurinol [employer] Other 10-17-2022 Evaluation note* Encounter Date Diagnosis [...] have gout. I have prescribed oral Allopurinol [employer] Other 07-29-2022 NotePROCEDURE: XR FEMUR LT HISTORY: [...] Electronically authenticated by: LUCAS GOLDSTEIN Date: 2022-01-01 08:35[facility]01-13-2022 Evaluation note* Encounter Date Diagnosis Assessment [...] Q60.0) He has a solitary right kidney. [employer] Other Evaluation + Plan note Future Appointments Appointment Date:01/16/2024 09:45:00 AM Scheduled Provider:Will HOLLINS MD Location:[facility] the [facility] Appointment Type:URO Office Visit Diagnostic Tests Pending * PSA Total 11/05/23 [facility] Evaluation + Plan note Future Appointments Appointment Date:05/22/2024 09:30:00 AM Scheduled Provider:Will HOLLINS MD Location:[facility] Appointment Type:URO Office Visit Diagnostic Tests Pending * PSA Total 01/17/24 [facility] Evaluation noteNo [email or web address] Other evaluation note* Diagnosis Onset Date Resolution Status Anemia of renal disease acut e CKD (chronic kidney disease) stage 3, GFR 30-59 ml/min acute Hyperlipidemia acute [id number] acute Hyperuricemia acute Hypomagnesemia acute Secondary hyperparathyroidism acute Solitary kidney, acquired ac [facility] Work Phone: evaluezaiy note* Diagnosis Primary hypertension (CMS/HCC)- Primary Unspecified [...] esophagitis without hemorrhage documented in this encounter [facility] HealthcareEvaluation note* Diagnosis Primary hypertension (CMS/HCC)- Primary [...] of unspecified site documented in this encounter [facility] HealthcareHistory general Narrative - [place] [employer] [facility] [facility] Other History general Narrative - Reported* Type [...] BLOOD PRESSURE WAS 60/40 , DEHYDRATION 04/2021 [employer] Other History general Narrative - Reported* Type [...] BLOOD PRESSURE WAS 60/40 , DEHYDRATION 04/2021 [employer] Other History general Narrative - Reported* Type [...] BLOOD PRESSURE WAS 60/40 , DEHYDRATION 04/2021 [employer] Other Hospital course Narrative No data available for this section [facility] Progress note No data available for this section [facility] [place] [employer] Summary Purpose Family History Relationship Condition Age [...] disease) stage 3, GFR 30-59 ml/min Hyperlipidemia [id number] Hyperuricemia Hypomagnesemia Secondary hyperparathyroidism Solitary kidney, acquired Additional Source Comments REASON FOR VISIT (unrecogniz ed section and content) Reason Comments Follow-up [facility] er f/up URI Reason Onset Date Comments Med Refill 03/27/2024 Reason Onset Date Comments Med Refill 03/19/2024 Reason Comments Nasal Congestion Ankle Pain Injury 2 weeks ago w ith ankle CKD and HTNCKD (unrecognized sect ion and content) No Status Records FoundNo Status Records FoundNo Status Records Found INFORMATION SOURCE (unrecogn ized section and content) DATE CREATED AUTHOR 11/12/2022 [facility] DATE CREATED AUTHOR AUTHOR'S ORGANIZ ATION 01/19/2024 [facility] DATE CREATED AUTHOR AUTHOR'S ORGANIZ ATION 04/25/2024 [facility] Care Teams (unrecognized sec tion [...] October 13, 2023 End: October 13, 2023 Liquor Establishment Manager Relationship Specialty Start Date End Date Shaikh Gagnon MD [address] [place] [address] PCP - [employer] 06/06/23 Rm Rainey MD [address] [place] [phone] PCP - General Family Medicine 01/16/24 Nicolle Rodriguez NP [address] [place] [address] Nurse Practitioner Family Medicine 01/16/24 Liquor Establishment Manager Relationship Specialty Start Date End Date Shaikh Gagnon MD [address] [place] [phone] PCP - [employer] 06/06/23 Rm Rainey MD [address] [place] [phone] PCP - General Family Medicine 01/16/24 Nicolle Rodriguez NP [address] [place] [phone] Nurse Practitioner Family Medicine 01/16/24 Liquor Establishment Manager Relationship Specialty Start Date End Date Shaikh Gagnon MD [address] [place] [phone] PCP - [employer] 06/06/23 Rm Rainey MD [address] [place] [phone] PCP - General Family Medicine 01/16/24 Nicolle Rodriguez [employer]AT [employer] PLANT UTILITY SUPERVISOR [address] [place] [address] Nurse Practitioner Family Medicine 01/16/24 Liquor Establishment Manager Relationship Specialty Start Date End Date Shaikh Gagnon MD [address] [place] [phone] PCP - [employer] 06/06/23 Rm Rainey MD [address] [place] [phone] PCP - General Family Medicine 01/16/24 Nicolle Rodriguez NP [address] [place] [address] Nurse Practitioner Family Medicine 01/16/24 Liquor Establishment Manager Relationship Specialty Start Date End Date Shaikh Gagnon MD [address] [place] [phone] PCP - [employer] 06/06/23 Rm Rainey MD [address] [place] [phone] PCP - General Family Medicine 01/16/24 Nicolle Rodriguez NP [address] [place] [address] Nurse Practitioner Family Medicine 01/16/24 Liquor Establishment Manager Relationship Specialty Start Date End Date Shaikh Gagnon MD [address] [place] [phone] PCP - [employer] 06/06/23 Unallocated, Jyoti Pink MD [address] [place] [address] PCP - General Family Medicine 03/20/24 Nicolle Rodriguez NP [address] [place] [address] Nurse Practitioner Family Medicine 01/16/24 Liquor Establishment Manager Relationship Specialty Start Date End Date Shaikh Gagnon MD [address] [place] [phone] PCP - [employer] 06/06/23 Rm Rainey MD [address] [place] [phone] PCP - General Family Medicine 04/05/24 Nicolle Rodriguez, NIC [address] [place] [address] Nurse Practitioner Family Medicine 01/16/24 Liquor Establishment Manager Relationship Specialty Start Date End Date Shaikh Gagnon MD [address] [place] [phone] PCP - [employer] 06/06/23 Rm Rainey MD [address] [place] [phone] PCP - General Family Medicine 04/05/24 Nicolle Rodriguez, NIC [address] [place] [address] Nurse Practitioner Family Medicine 01/16/24 Liquor Establishment Manager Relationship Specialty Start Date End Date Shaikh Gagnon MD [address] [place] [phone] PCP - [employer] 06/06/23 Rm Rainey MD [address] [place] [phone] PCP - General Family Medicine 04/05/24 Nicolle Rodriguez NP [address] [place], [place] [address] [address] Nurse Practitioner Family Medicine 01/16/24 Goals (unrecognized [...] BE BASED ON THE PRIMARY CLINICAL RECORDS. [employer] provides no warranty or guarantee of the accuracy or completeness of information in this document.
[2024-05-17 01:22] LABS: Lactate/Lactic Acid 1.3 mmol/L (0.4-2.0)
--- NOTE | 2024-05-17 01:22 | PC.NURSE ---
this patient sitting upright on the bed awake and alert, this patient his shirt and his jacket in a bag and has this bag in his hand. this patient voices no concerns and shows no signs of distress. id id removed EMS iv site from this patient left FA..
[2024-05-17] MEDS: METOPROLOL TARTRATE 25 MG TABLET PO ×2 (02:02→08:35)
[2024-05-17] MEDS: 0.9 % SODIUM CHLORIDE 1,000 ML 100 ML IV (02:02)
[2024-05-17 06:07] LABS: Bilirubin Urine NEGATIVE (NEGATIVE); Blood Urine NEGATIVE (NEGATIVE); Clarity Urine CLEAR (CLEAR); Color Urine LT. YELLOW (YELLOW); Glucose Urine UA NEGATIVE (NEGATIVE); Ketones Urine NEGATIVE (NEGATIVE); Leukocyte Esterase Urine NEGATIVE (NEGATIVE); Nitrite Urine NEGATIVE (NEGATIVE); Protein Urine NEGATIVE (NEG/TRACE); Urobilinogen Urine 0.2 EU/dL (0.2-1.0)
[2024-05-17 06:11] LABS: Basophils Percent Auto 0.4 % (0.2-2.0); Eosinophils Absolute Auto 0.1 10^3/uL (0.0-0.7); Eosinophils Percent Auto 1.5 % (0.9-7.0); Hematocrit 38.1 % (42.0-54.0); Hemoglobin 12.8 g/dL (14.0-18.0); Immature Granulocytes Abs Auto 0.16 10^3/uL (0.00-0.03); Lymphocytes Absolute Auto 3.9 10^3/uL (1.2-3.8); Lymphocytes Percent Auto 48.4 % (20.5-60.0); Mean Corpuscular HGB Conc 33.6 g/dL (29.9-35.2); Mean Corpuscular Hemoglobin 32.5 pg (25.9-34.0); Mean Corpuscular Volume 96.7 fL (80.0-94.0); Mean Platelet Volume 9.6 fL (9.5-13.5); Monocytes Absolute Auto 0.8 10^3/uL (0.3-0.8); Monocytes Percent Auto 9.9 % (1.7-12.0); Neutrophils Absolute Auto 3.1 10^3/uL (1.4-6.5); Neutrophils Percent Auto 37.8 % (43.0-75.0); Platelet Count 200 10^3/uL (150-450); Red Blood Count 3.94 10^6/uL (4.70-6.10); Red Cell Distribution Width 14.8 % (11.0-15.0); White Blood Count 8.1 10^3/uL (4.0-11.0)
[2024-05-17 06:13] LABS: Bacteria Urine NONE SEEN #/HPF (NONE SEEN); Cast Seen? SEEN #/LPF (NONE SEEN); Crystals Seen? None Seen #/HPF (None Seen); Hyaline Casts Urine RARE; Mucus Urine NONE SEEN (NONE SEEN); RBC Urine 0-2 #/HPF (0-2); Squamous Epithelial Cell Urine NONE SEEN #/LPF (NONE/RARE); Urine Culture Indicated NO; WBC Urine 0-2 #/HPF (NONE SEEN)
[2024-05-17 06:29] LABS: Alanine Aminotransferase 72 U/L (16-63); Albumin Globulin Ratio 0.9; Albumin Level 2.7 g/dL (3.4-5.0); Alkaline Phosphatase 40 U/L (46-116); Anion Gap 14.9; Aspartate Amino Transferase 44 U/L (15-37); BUN Creatinine Ratio 16.4; Bilirubin Total 0.5 mg/dL (0.2-1.0); Calcium 8.2 mg/dL (8.5-10.1); Carbon Dioxide 27.8 mmol/L (21.0-32.0); Chloride 107 mmol/L (98-107); Estimated GFR (African America 58 (>=60 mL/min/1.73m^2); Estimated GFR (Non-African Ame 48 (>=60 mL/min/1.73m^2); Globulin 2.9 g/dL; Glucose 74 mg/dL (74-106); Potassium 3.7 mmol/L (3.5-5.1); Sodium 146 mmol/L (136-145); Total Protein 5.6 g/dL (6.4-8.2)
--- NOTE | 2024-05-17 07:54 | CM.NOTE ---
Rounds made with Dr. Blanca, pt will have evaluation from PT and OT today prior to discharge. Case Management and SS will follow for any discharge needs after PT and OT evaluation.
[2024-05-17] MEDS: ATORVASTATIN CALCIUM 40 MG TABLET PO (08:35)
[2024-05-17] MEDS: ALLOPURINOL 100 MG TABLET PO (08:35)
[2024-05-17] MEDS: FOLIC ACID 1 MG TABLET PO (08:35)
[2024-05-17] MEDS: THIAMINE MONONITRATE (VIT B1) 100 MG TABLET PO (08:35)
[2024-05-17] MEDS: LOSARTAN POTASSIUM 50 MG TABLET PO (08:35)
[2024-05-17] MEDS: TAMSULOSIN HCL 0.4 MG CAPSULE PO (08:35)
[2024-05-17] MEDS: FLUTICASONE PROPIONATE 50 MCG NASAL SPRAY 1 SPRAY NS (08:35)
[2024-05-17] MEDS: MULTIVITAMIN TABLET 1 TAB PO (08:35)
[2024-05-17] MEDS: OMEPRAZOLE 40 MG CAPSULE.DR PO (08:35)
--- NOTE | 2024-05-17 09:06 | P.HP_ITS ---
HPI H&P: HPI History of Present Illness Chief complaint: ETOH,FALL,CERVICAL OSTEOPHYTE FRACTURE Narrative: She has been drinking more lately, had an alcohol level of over 200 on admission, fell over the dog, neck pain instantly, CT in ER shows compression fracture, case discussed with neurosurgery, no further intervention needed at that time. Patient unable to ambulate secondary to the intoxication and pain. Patient admitted overnight for observation When I saw patient on the medical surgical floor, resting comfortably in bed, awakened easily, and did have weakness upon sitting but it is difficulty in these beds, physical therapy had to evaluate patient Opioid HPI Opioid Management Most Recent Pain and Opioid Data: Last Pain Scale 3 05/17/24 09:52 05/17/24 Last Pain Intensity 3 05/17/24 09:52 05/17/24 Last Pain Assessment 05/17/24 10:00 Last ORT Total Score 3 05/17/24 01:24 05/17/24 Last ORT Risk Category Low Risk 05/17/24 01:24 05/17/24 Ur Phencyclidine Scrn Negative (NEGATIVE) 05/08/24 14:00 1208/27 Review of Systems ROS Status of ROS 10 or more systems reviewed and unremark able except as noted in history and below [facility] Medical History (Updated 05/17/24 @ 10:11 by Magen Blanca MD) COPD exacerbation ?J44.1 - Chronic obstructive pulmonary disease with (acute) exacerbation (ICD-10) Bilateral pneumonia ?J18.9 - Pneumonia, unspecified organism (ICD-10) ETOH abuse ?F10.10 - Alcohol abuse, uncomplicated (ICD-10) Chest pain ?R07.9 - Chest pain, unspecified (ICD-10) CKD (chronic kidney disease) stage 2, GFR 60-89 ml/min ?N18.2 - Chronic kidney disease, stage 2 (mild) (ICD-10) HLD (hyperlipidemia) ?E78.5 - Hyperlipidemia, unspecified (ICD-10) Hematemesis with nausea ?K92.0 - Hematemesis (ICD-10) Chronic back pain ?M54.9 - Dorsalgia, unspecified (ICD-10) ?G89.29 - Other chronic pain (ICD-10) Alcohol abuse, in remission ?F10.11 - Alcohol abuse, in remission (ICD-10) Type 2 diabetes mellitus ?E11.9 - Type 2 diabetes mellitus without complications (ICD-10) COPD (chronic obstructive pulmonary disease) ?J44.9 - Chronic obstructive pulmonary disease, unspecified (ICD-10) Sleep apnea ?G47.30 - Sleep apnea, unspecified (ICD-10) Hypertension ?I10 - Essential (primary) hypertension (ICD-10) 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) Hiatal hernia ?K44.9 - Diaphragmatic hernia without obstruction or gangrene (ICD-10) Inguinal hernia bilateral, non-recurrent ?K40.20 - Bilateral inguinal hernia, without obstruction or gangrene, not specified as recurrent (ICD-10) Influenza ?J11.1 - Influenza due to unidentified influenza virus with other respiratory manifestations (ICD-10) Giardia ?A07.1 - Giardiasis [lambliasis] (ICD-10) CMV (cytomegalovirus) ?B25.9 - Cytomegaloviral disease, unspecified (ICD-10) Rheumatic fever ?I00 - Rheumatic fever without heart involvement (ICD-10) Prostate cancer ?C61 - Malignant neoplasm of prostate (ICD-10) Surgical History [place] teeth extracted ?K08.409 - Partial loss of teeth, unspecified cause, unspecified class (ICD- 10) History of nephrectomy, left ?Z90.5 - Acquired absence of kidney (ICD-10) Family History (System 04/13/24 @ 09:45 by Farhana Chirinos) Other Family history of cancer Family history of diabetes mellitus Social History (Updated 05/08/24 @ 03:14 by Anabel Key RN) Within the past year, how often did you have a drink containing alcohol: 2-4 times a month Within the past year, how many standard drinks containing alcohol did you have on a typical day: 3 or 4 Within the past year, how often did you have six or more drinks on one occasion: less than monthly Total score: 3 Score interpretation: A score of 4 or more indicates drinking is likely to affect patient's safety. Smoking status: Current every day smoker Non-prescribed substance use: denies use Highest level of school completed/degree received: Bachelor's degree Are you now , , , , never or living with a partner: In a typical week, how many times do you talk on the telephone with family, friends, or neighbors: 3 or more times per week Little interest or pleasure in doing things: not at all Feeling down, depressed, or hopeless: not at all Feel stressed/tense/nervous/anxious/difficulty sleeping: to some extent Life stressors: other Life stressor details: HAS CANCER, CONCERNED THAT SHE MIGHT NOT HAVE A GOOD OUTCOME Do you think of yourself as: straight/heterosexual Gender Identity: male Meds Home Medications and Allergies Home Medications ?Medication ?Instructions ?Recorded ?Confirmed ?Type budesonide-formoterol HFA 160 1 inh inhalation Q12H 04/02/23 05/16/24 History mcg-4.5 mcg/actuation aerosol inhaler (Symbicort) losartan 50 mg tablet 50 mg PO DAILY 04/02/23 05/16/24 History metoprolol tartrate 25 mg tablet 25 mg PO Q12H 04/02/23 05/16/24 History tamsulosin 0.4 mg capsule 0.4 mg PO Q24H 04/02/23 05/17/24 History allopurinol 100 mg tablet 100 mg PO BID 04/12/24 05/16/24 History atorvastatin 40 mg tablet 40 mg PO QDAY 04/12/24 05/16/24 History omeprazole 40 mg capsule,delayed 40 mg PO QDAY 04/12/24 05/16/24 History release fluticasone propionate 50 1 spray intranasal QDAY 05/07/24 05/16/24 History mcg/actuation nasal spray,suspension albuterol sulfate 90 mcg/actuation 2 puff inhalation Q4H PRN 05/16/24 05/17/24 History aerosol inhaler shortness of breath or wheezing furosemide 20 mg tablet 20 mg PO .QD 05/17/24 05/17/24 History Allergies Allergy/AdvReac Type Severity Reaction Status Date / Time No Known Drug Allergies Allergy Verified 05/16/24 21:26 Exam Constitutional Vital Signs, click to edit/add: Last Vital Signs Temp 97.5 F L 05/17/24 07:38 Pulse 62 05/17/24 07:38 Resp 18 05/17/24 07:41 BP 172/90 H 05/17/24 07:38 Pulse Ox 94 L 05/17/24 07:38 O2 Del Method Room Air 05/17/24 07:38 Documenting provider has reviewed patient's vital signs: yes Common normals: no apparent distress (Seems fatigued) Neck & C-Spine Common normals: negative for full ROM (Poor range of motion of neck secondary to pain) Chest Common normals: inspection of chest normal Respiratory Common normals: normal respiratory effort, no retractions and no use of accessory muscles Cardio Common normals: regular rate and regular rhythm GI Common normals: Normal to inspection, nondistended, normoactive bowel sounds present (Obese) Neuro Common normals: oriented x3, CN's II-XII intact bilaterally, moves all extremities and no focal motor deficits Results Labs Labs: Short CBC 05/16/24 05/17/24 Range/Units 21:45 05:45 WBC 10.9 8.1 (4.0-11.0) 10^3/uL Hgb 12.7 L 12.8 L (14.0-18.0) g/dL Hct 37.9 L 38.1 L (42.0-54.0) % Plt Count 242 200 (150-450) 10^3/uL BMP 05/16/24 05/17/24 21:45 05:45 Sodium 141 146 H Potassium 3.4 L 3.7 Chloride 103 107 Carbon Dioxide 29.8 27.8 BUN 26.0 H 24.0 H Creatinine 2.00 H 1.46 H Glucose 97 74 Calcium 8.3 L 8.2 L Liver Function 05/16/24 05/17/24 Range/Units 21:45 05:45 Total Bilirubin 0.4 0.5 (0.2-1.0) mg/dL AST 41 H 44 H (15-37) U/L ALT 80 H 72 H (16-63) U/L Alkaline Phosphatase 46 40 L (46-116) U/L Albumin 3.0 L 2.7 L (3.4-5.0) g/dL Urine 05/17/24 Range/Units 05:35 Urine Color Lt. yellow (YELLOW) Urine Clarity Clear (CLEAR) Urine pH 6.0 (5.0-9.0) Ur Specific [place] 1.020 (1.005-1.025) Urine Protein Negative (NEG/TRACE) mg/dL Urine Glucose (UA) Negative (NEGATIVE) mg/dL Assessment and Plan Assessment and Plan (1) Osteophyte of cervical spine: (2) Chronic renal disease: (3) Alcohol intoxication: (4) Contusion of face: (5) Compression fracture of C3 vertebra: Plan Admission findings: Mild bradycardia, respiratory distress, uncontrolled hypertension, mild anemia, hypokalemia, acute kidney injury with positive lactate and elevated liver function test secondary to alcohol abuse, neck pain secondary to C3 fracture compression CT fracture-compression fracture-discussed with neurosurgery, no surgical intervention at this time. Alcohol abuse-no signs of withdrawal, currently on CIWA scale Weakness, positive lactate, mild anemia and elevated BUN and creatinine consistent with alcohol abuse-IV fluids given, if eating and ambulating well will discharge patient home in improving condition. Medications see list. Follow-up with PCP within the next week. COPD-continue with home management, no cough L Hypertension by history-elevated on ehkwdhynv-[id number]-turzhuhg with home medications GERD-continue with home medications BPH-continue with home medications Admission status: Patient placed in observation bed overnight secondary to the alcohol intoxication and unable to ambulate, medically necessary treatment likely to only span 1 midnight, observation status maintained
--- NOTE | 2024-05-17 10:14 | P.DS_ITS ---
DS: Providers Provider Date of admission: 05/17/24 01:12 Primary care physician: NICOLLE LINK Consults: 05/17/24 06:28 Consult to Pharmacy Routine Consulting Provider: Reason for consultation: Please Superior me when Med Rec is Updated Has provider been notified: No 05/17/24 09:00 Occupational Therapy Eval and Treat Routine Reason for consultation: Fall Has provider been notified: No Physical Therapy Eval and Treat Routine Reason for consultation: Fall Has provider been notified: No DS: Diagnosis Discharge Diagnosis (1) Osteophyte of cervical spine: (2) Chronic renal disease: (3) Alcohol intoxication: (4) Contusion of face: (5) Compression fracture of C3 vertebra: Plan Admission findings: Mild bradycardia, respiratory distress, uncontrolled hypertension, mild anemia, hypokalemia, acute kidney injury with positive lactate and elevated liver function test secondary to alcohol abuse, neck pain secondary to C3 fracture compression CT fracture-compression fracture-discussed with neurosurgery, no surgical intervention at this time. Alcohol abuse-no signs of withdrawal, currently on CIWA scale Weakness, positive lactate, mild anemia and elevated BUN and creatinine consistent with alcohol abuse-IV fluids given, if eating and ambulating well will discharge patient home in improving condition. Medications see list. Follow-up with PCP within the next week. COPD-continue with home management, no cough Hypertension by history-elevated on xswrmijzy-atmdxmiuw-lwwgmtkg with home medications GERD-continue with home medications BPH-continue with home medications Admission status: Patient placed in observation bed overnight secondary to the alcohol intoxication and unable to ambulate, medically necessary treatment likely to only span 1 midnight, observation status maintained DS: Summary Hospital Course Hospital Course: Patient admitted with ataxia and fall secondary to alcohol intoxication. He had been sober for some time, tripped over the dog this time. Other than being a little bit sore the next day had no further complaints. Physical therapy work with patient to make sure he is ambulating safely. Once that was completed he was discharged home in improving condition. Medications see list. Follow-up with PCP at discharge. Time Spent with Patient Time attestation: Total time spent providing and/or coordinating discharge services: Time spent: greater than 30 minutes Exam Constitutional Vital Signs, click to edit/add: Last Vital Signs Temp 97.5 F L 05/17/24 07:38 Pulse 62 05/17/24 07:38 Resp 18 05/17/24 07:41 BP 172/90 H 05/17/24 07:38 Pulse Ox 94 L 05/17/24 07:38 O2 Del Method Room Air 05/17/24 07:38 Documenting provider has reviewed patient's vital signs: yes Common normals: no apparent distress (Seems fatigued) Neck & C-Spine Common normals: negative for full ROM (Poor range of motion of neck secondary to pain) Chest Common normals: inspection of chest normal Respiratory Common normals: normal respiratory effort, no retractions and no use of accessory muscles Cardio Common normals: regular rate and regular rhythm GI Common normals: Normal to inspection, nondistended, normoactive bowel sounds present (Obese) Neuro Common normals: oriented x3, CN's II-XII intact bilaterally, moves all extremities and no focal motor deficits DS: Data Data Completed and Pending Labs on day of discharge: Labs from last 24 hours 05/17/24 05/17/24 05/17/24 05:45 05:35 00:57 WBC 8.1 RBC 3.94 L Hgb 12.8 L Hct 38.1 L MCV 96.7 H MCH 32.5 MCHC 33.6 RDW 14.8 Plt Count 200 MPV 9.6 Neut % (Auto) 37.8 L Lymph % (Auto) 48.4 [place] % (Auto) 9.9 Eos % (Auto) 1.5 Baso % (Auto) 0.4 Neut # (Auto) 3.1 Lymph # (Auto) 3.9 H [place] # (Auto) 0.8 Eos # (Auto) 0.1 Baso # (Auto) 0.0 Abs Immat Gran (auto) 0.16 H Imm/Tot Granulo (auto) 2.0 H Sodium 146 H Potassium 3.7 Chloride 107 Carbon Dioxide 27.8 Anion Gap 14.9 BUN 24.0 H Creatinine 1.46 H Est GFR ( Amer) 58 L Est GFR (Non-Af Amer) 48 L BUN/Creatinine Ratio 16.4 Glucose 74 Lactate 1.3 Calcium 8.2 L Total Bilirubin 0.5 AST 44 H ALT 72 H Alkaline Phosphatase 40 L Troponin I High Sens Total Protein 5.6 L Albumin 2.7 L Globulin 2.9 Albumin/Globulin Ratio 0.9 Urine Color Lt. yellow Urine Clarity Clear Urine pH 6.0 Ur Specific [place] 1.020 Urine Protein Negative Urine Glucose (UA) Negative Urine Ketones Negative Urine Occult Blood Negative Urine Nitrite Negative Urine Bilirubin Negative Urine Urobilinogen 0.2 Ur Leukocyte Esterase Negative Urine RBC 0-2 Urine WBC 0-2 A Ur Squamous Epith Cells None seen Urine Crystals None seen Urine Bacteria None seen Urine Casts Seen A Hyaline Casts Rare Urine Mucus None seen Ur Culture Indicated? No Ethanol Quant 05/16/24 21:45 WBC 10.9 RBC 3.87 L Hgb 12.7 L Hct 37.9 L MCV 97.9 H MCH 32.8 MCHC 33.5 RDW 15.1 H Plt Count 242 MPV 11.3 Neut % (Auto) 41.3 L Lymph % (Auto) 46.2 [place] % (Auto) 9.8 Eos % (Auto) 0.8 L Baso % (Auto) 0.2 Neut # (Auto) 4.5 Lymph # (Auto) 5.0 H [place] # (Auto) 1.1 H Eos # (Auto) 0.1 Baso # (Auto) 0.0 Abs Immat Gran (auto) 0.18 H Imm/Tot Granulo (auto) 1.7 H Sodium 141 Potassium 3.4 L Chloride 103 Carbon Dioxide 29.8 Anion Gap 11.6 BUN 26.0 H Creatinine 2.00 H Est GFR ( Amer) 41 L Est GFR (Non-Af Amer) 33 L BUN/Creatinine Ratio 13.0 Glucose 97 Lactate 2.1 H Calcium 8.3 L Total Bilirubin 0.4 AST 41 H ALT 80 H Alkaline Phosphatase 46 Troponin I High Sens 11.2 Total Protein 6.2 L Albumin 3.0 L Globulin 3.2 Albumin/Globulin Ratio 0.9 Urine Color Urine Clarity Urine pH Ur Specific [place] Urine Protein Urine Glucose (UA) Urine Ketones Urine Occult Blood Urine Nitrite Urine Bilirubin Urine Urobilinogen Ur Leukocyte Esterase Urine RBC Urine WBC Ur Squamous Epith Cells Urine Crystals Urine Bacteria Urine Casts Hyaline Casts Urine Mucus Ur Culture Indicated? Ethanol Quant 225 Discharge Plan Discharge Disposition: Home, Self-Care Condition: Good Discharge Medications: Continued budesonide-formoterol [Symbicort] 160-4.5 mcg/actuation HFA aerosol inhaler 1 inh INHALATION Q12H losartan 50 mg tablet 50 mg PO DAILY metoprolol tartrate 25 mg tablet 25 mg PO Q12H tamsulosin 0.4 mg capsule 0.4 mg PO Q24H atorvastatin 40 mg tablet 40 mg PO QDAY allopurinol 100 mg tablet 100 mg PO BID omeprazole 40 mg capsule,delayed release(DR/EC) 40 mg PO QDAY fluticasone propionate 50 mcg/actuation spray,suspension 1 spray INTRANASAL QDAY albuterol sulfate 90 mcg/actuation HFA aerosol inhaler 2 puff INHALATION Q4H PRN (Reason: shortness of breath or wheezing) furosemide 20 mg tablet 20 mg PO .QD Print Language: [place] Irish Patient Instructions: Alcohol Intoxication (DC), Fall Prevention (DC) Senior C Developer/Cell Technician Instructions: Resume Med 1 . Forms: Portal Instructions Follow Up Appointments: Nicolle Link NP, Babita., 2023 at 11:00 [address] [place], [place] [phone] Discharge Date/Time: 05/17/24 12:25
--- NOTE | 2024-05-17 12:04 | CM.NOTE ---
Discussed with pt about alcohol intake, pt denies having any addiction issues or needing any services at this time. Pt will discharge with [address]
--- NOTE | 2024-05-17 14:24 | CM.NOTE ---
Medicare Outpatient Observation Notice discussed with pt, pt verbalizes understanding and signs paper. Original given to pt and copy placed on pt's chart.
--- NOTE | 2024-05-17 14:30 | SWNOTE1 ---
Pt is current with MED 1 and will resume at discharge. See case management assessment. SW faxed over ED note, H&P, PT/OT note, dc med list, and CRF to [address]
--- NOTE | 2024-05-18 11:53 | CM.DCFOLLOWU ---
1st attempt 05/18, no answer
--- NOTE | 2024-05-21 13:15 | CM.DCFOLLOWU ---
2nd attempt 05/21/24, no answer
--- NOTE | 2024-05-22 14:37 | CM.DCFOLLOWU ---
3rd attempt 05/22/22, no answer
== END 2024-05-17 12:25 | disposition home or self-care (01) ==
LOC: ER 05-17 00:58 → MS 05-17 01:16
PROVIDERS: Registered Nurse; Admitting Provider Family Medicine; Emergency Provider Emergency Medicine; Visit Provider Family Medicine
DX: F10.129 Alcohol abuse with intoxication, unspecified (principal); N17.9 Acute kidney failure, unspecified; S00.83XA Contusion of other part of head, initial encounter; W01.0XXA Fall on same level from slipping, tripping and stumbling without subsequent striking against object, initial encounter; Y90.7 Blood alcohol level of 200-239 mg/100 ml; J44.9 Chronic obstructive pulmonary disease, unspecified; Z63.79 Other stressful life events affecting family and household; M48.52XA Collapsed vertebra, not elsewhere classified, cervical region, initial encounter for fracture; R00.1 Bradycardia, unspecified; R06.03 Acute respiratory distress; D64.9 Anemia, unspecified; E87.6 Hypokalemia; M54.2 Cervicalgia; M25.78 Osteophyte, vertebrae; K21.9 Gastro-esophageal reflux disease without esophagitis; N40.0 Benign prostatic hyperplasia without lower urinary tract symptoms; R53.1 Weakness; N18.2 Chronic kidney disease, stage 2 (mild); I12.9 Hypertensive chronic kidney disease with stage 1 through stage 4 chronic kidney disease, or unspecified chronic kidney disease; Z87.01 Personal history of pneumonia (recurrent); R27.0 Ataxia, unspecified; F17.210 Nicotine dependence, cigarettes, uncomplicated
CPT/HCPCS: 36415; 70450; 71046; 72125; 80053; 80320; 81001; 83605; 84484; 85025; 93005; 94667; 94761; 97165; 99285; 99406; G0378

== ENCOUNTER 2024-07-17 09:48 | Outpatient (OUT) | payer MEDICARE, SELFPAY ==
--- OUTSIDE RECORDS SUMMARY | 2024-07-17 10:11 | XMS_ITS | CCD ---
Author Organization [facility] Inform ion [facility] Care Team Providers Care Division Operations Specialist Name Role Phone Jose Victoria Unavailable DR WILL HOLLINS Consulting Unavailable COOK, PEGGY Attending Unavailable FAWWAD, MICHEL H Primary Care Unavailable GURVINDER, PEGGY Admitting Unavailable SAMSA ., RUKHSANA Admitting Unavailable ZIEBER, DR LUCAS Miller Consulting Unavailable SAMSA ., RUKHSANA Attending Unavailable FAWWAD, MICHEL H Primary Care Unavailable SAMSA ., RUKHSANA Consulting Unavailable FAWWAD, MICHEL H Admitting Unavailable FAWWAD, MICHEL H Attending Unavailable FAWWAD, MICHEL H Consulting Unavailable FAWWAD, MICHEL H Primary Care Unavailable SAMSA ., RUKHSANA Admitting Unavailable SAMSA ., RUKHSANA Attending Unavailable TRISTON, DR LUCAS Miller Consulting Unavailable FAWWAD, MICHEL H Primary Care Unavailable SAMSA ., RUKHSANA Consulting Unavailable FAWWAD, MICHEL H Admitting Unavailable FAWWAD, MICHEL H Attending Unavailable FAWWAD, MICHEL H Consulting Unavailable FAWWAD, MICHEL H Primary Care Unavailable PAY ., DR CARRASCO Admitting Unavailable TRISTON, DR LUCAS Miller Consulting Unavailable PAY ., DR CARRASCO Attending Unavailable FAWWAD, MICHEL H Primary Care Unavailable PAY ., DR CARRASCO Consulting Unavailable VARSHA BARNARD Consulting Unavailable NURYS ., DR ABEL Admitting Unavailable HAY ., DR ABEL Attending Unavailable GRECHNY .ABHI Consulting Unavailabl e FAWWAD, MICHEL H Primary Care Unavailable HAY ., DR ABEL Consulting Unavailable MARKER ., DR ROBERSON Consulting Unavailable ERNA LEON Consulting Unavailable SAMSA ., RUKHSANA Attending Unavailable FAWWAD, MICHEL H Primary Care Unavailable SAMSA ., RUKHSANA Consulting Unavailable SAMSA .RUKHSANA Admitting Unavailable SHAIKH GAGNON Primary Care Physician Kalin HENDRICKSON, Unavailable Brigid HENDRICKSON, Rm Primary Care Provider [phone] Jennifer LUCERO, Nicolle Unavailable [phone] Unallocated MD, Noms Provider Primary Care Provi phoebe Brigid HENDRICKSON, Rm Primary Care Provider [phone] Will HOLLINS Attending Unavailable Will HOLLINS Attending Unavailable Will HOLLINS Attending Unavailable SHAIKH GAGNON Primary Care Unavailable Will HOLLINS Attending Unavailable KALIN, Attending Unavailable KALIN, Attending Unavailable KALIN, Attending Unavailable RODRIGUEZ, NICOLLE Attending Unavailabl e RODRIGUEZ, NICOLLE Attending Unavailabl e RODRIGUEZ, NICOLLE Attending Unavailabl e RODRIGUEZ, NICOLLE Attending Unavailabl e Allergies Allergy Classification Reported Allergen(s) Allergy Type Date of Onset Reaction(s) Facility (1 source) No Known Medication Allergies; Translations: [No Known Medication Allergies] Propensity to adverse reactions (disorder) [facility] Repository Medications Current Medications Medication Drug Class(es) Dates Sig (Normalized) Sig (Original) [id number] 200 actuat albuterol 0.09 mg/actuat metered dose inhaler (20 sources) beta2-Adrenergic Agonist Start: 07-10-2024 albuterol HFA 90 mcg/act inhaler Indications: Centrilobular emphysema (CMS/HCC) Inhale 2 puffs in the morning and 2 puffs at noon and 2 puffs in the evening and 2 puffs before bedtime. 54 g 1 07/10/2024 Active Start: 06-20-2024 End: 07-10-2024 albuterol HFA 90 mcg/act inh aler Indications: Centrilobular emphysema (CMS/HCC) Inhale 2 puffs in the morning and 2 puffs at noon and 2 puffs in the evening and 2 puffs before bedtime. 54 g 1 06/20/2024 07/10/2024 Discontinued (Reorder) Start: 10-13-2023 take 1 puff(s) by in halation every four hours Albuterol Sulfate Active 1 PUFF INHALATION Every 4 hours October 13, 2023 12:00am Start: 09-13-2023 End: 06-20-2024 take 2 puff(s) by mouth every four hours as needed albuterol HFA 90 mcg/act inhaler Indications: Centrilobular emphysema (CMS/HCC) INHALE 2 PUFFS BY MOUTH EVERY 4 HOURS NEEDED FOR SHORTNESS OF BREATH 54 g 1 09/13/2023 06/20/2024 Discontinued (Reorder) take 1 puff(s) by in halation every four hours as needed Albuterol Sulfate HFA 108 (90 Base) MCG/ACT 1 puff as needed Inhalation every 4 hrs Active take 1 puff(s) by in halation every four hours as needed Albuterol Sulfate HFA 108 (90 Base) MCG/ACT 1 puff as needed Inhalation every 4 hrs Active allopurinol 100 mg oral tablet (20 sources) Xanthine Oxidase Inhibitor Start: 12-29-2023 End: 09-18-2024 take 1 tablet by mouth in the morning allopurinol (Zyloprim) 100 MG tablet Indications: Hyperuricemia Take 1 tablet (100 mg) by mouth in the morning and 1 tablet (100 mg) before bedtime. 180 tablet 06/20/2024 09/18/2024 Active Start: 10-13-2023 take 100 mg by [...] / zinc oxide 17.4 mg oral capsule (18 sources) Vitamin C Start: 06-24-2023 take 2 capsules by mouth once daily Multiple Vitamins-Minerals (PreserVision AREDS 2) capsule Take 2 capsules by mouth Daily 06/24/2023 Active atorvastatin 40 mg oral tablet (20 sources) HMG-CoA Reductase Inhibitor Start: 06-20-2024 take 1 tablet by mouth once daily atorvastatin (Lipitor) 40 MG tablet Indications: Hyperlipidemia, unspecified (CMS/HCC) Take 1 tablet (40 mg) by mouth Daily 90 tablet 1 06/20/2024 Active Start: 06-20-2024 take 1 tablet by martinez th once daily atorvastatin (Lipitor) 40 MG tablet Indications: Hyperlipidemia, unspecified (CMS/HCC) Take 1 tablet (40 mg) by mouth Daily 90 tablet 1 06/20/2024 Active Start: 11-01-2019 End: 06-20-2024 take 1 tablet by mouth once daily atorvastatin (Lipitor) 40 MG tablet Indications: Hyperlipidemia, unspecified (CMS/HCC) Take 1 tablet (40 mg) by mouth Daily 90 tablet 1 05/22/2024 Active 60 actuat budesonide 0.16 mg/actuat / formoterol fumarate 0.0045 mg/actuat metered dose inhaler (20 sources) Corticosteroid, beta2-Adrenergic Agonist Start: 07-10-2024 take 2 puff(s) by mouth once daily budesonide-formoterol (Symbicort) 160-4.5 MCG/ACT inhaler Indications: Centrilobular emphysema (CMS/HCC) Inhale 2 puffs Daily Rinse mouth with water after use to reduce aftertaste and incidence of candidiasis. Do not swallow. 30.6 g 2 07/10/2024 Active Start: 06-20-2024 End: 07-10-2024 take 2 puff(s) by mouth once daily budesonide-formoterol (Symbicort) 160-4.5 MCG/ACT inhaler Indications: Centrilobular emphysema (CMS/HCC) Inhale 2 puffs Daily Rinse mouth with water after use to reduce aftertaste and incidence of candidiasis. Do not swallow. 30.6 g 2 06/20/2024 07/10/2024 Discontinued (Reorder) Start: 05-22-2024 End: 06-20-2024 take 2 puff(s) by mouth once daily budesonide-formoterol (Symbicort) 160-4.5 MCG/ACT inhaler Indications: Centrilobular emphysema (CMS/HCC) Inhale 2 puffs Daily Rinse mouth with water after use to reduce aftertaste and incidence of candidiasis. Do not swallow. 30.6 g 2 05/22/2024 06/20/2024 Discontinued (Reorder) Start: 12-20-2023 End: 05-22-2024 take 2 puff(s) by mouth twice daily budesonide-formoterol (Symbicort) 160-4.5 MCG/ACT inhaler Indications: Centrilobular emphysema (CMS/HCC) INHALE 2 PUFFS BY MOUTH TWICE DAILY *rinse after use* 30.6 g 2 12/20/2023 05/22/2024 Discontinued (Reorder) 12 hr cetirizine hydrochloride 5 mg / pseudoephedrine hydrochloride 120 mg extended release oral tablet (3 sources) alpha-Adrenergic Agonist, Histamine-1 Receptor Antagonist Start: 11-24-2023 End: 03-19-2024 take 1 tablet by mouth once in the morning, then take 1 tablet by mouth every twelve hours at bedtime cetirizine-pseudoephedrine (ZyrTEC-D) 5-120 MG 12 hr tablet Indications: [...] r hours Vitamin D (Ergocalciferol) 50 MCG (1999 UT) 1 capsule Orally Once a day Active fluticasone propionate 0.05 mg/actuat metered dose nasal spray (20 sources) Corticosteroid Start: 04-23-2024 End: 07-10-2025 take 1-2 spray(s) nasal route once daily fluticasone (Flonase) 50 MCG/ACT nasal spray Indications: Viral upper respiratory tract infection Administer 1-2 sprays into each nostril Daily Shake gently. Before first use, prime pump. After use, clean tip and replace cap. 16 g 2 07/10/2024 07/10/2025 Active Start: 11-24-2023 End: 04-23-2024 take 2 spray(s) nasal route once daily fluticasone (Flonase) 50 MCG/ACT nasal spray Indications: Chronic rhinosinusitis with multiple nasal polyps Administer 2 sprays into each nostril Daily Shake gently. Before first use, prime pump. After use, clean tip and replace cap. 16 g 2 11/24/2023 04/23/2024 Discontinued (Duplicate order) furosemide 20 mg oral tablet (20 sources) Loop Diuretic Start: 06-20-2024 take 1 tablet by mouth once daily furosemide (Lasix) 20 MG tablet Indications: Chronic right heart failure (HCC) (CMS/HCC) Take 1 tablet (20 mg) by mouth Daily 90 tablet 2 06/20/2024 Active Start: 06-20-2024 take 1 tablet by martinez th once daily furosemide (Lasix) 20 MG tablet Indications: Chronic right heart failure (HCC) (CMS/HCC) Take 1 tablet (20 mg) by mouth Daily 90 tablet 2 06/20/2024 Active Start: 11-01-2019 End: 06-20-2024 take 1 tablet by mouth once daily furosemide (Lasix) 20 MG tablet Indications: Chronic right heart failure (HCC) (CMS/HCC) Take 1 tablet (20 mg) by mouth Daily 90 tablet 2 05/22/2024 Active 200 actuat ipratropium bromide 0.017 mg/actuat metered dose inhaler (20 sources) Anticholinergic Start: 05-22-2024 End: 05-22-2024 take 2 puff(s) by inhalation in the morning ipratropium (Atrovent HFA) 17 MCG/ACT inhaler Indications: Centrilobular emphysema (CMS/HCC) Inhale 2 puffs in the morning and 2 puffs before bedtime. 12.9 g 2 05/22/2024 Active Start: 11-01-2019 Atrovent HFA I nhalation, QID, Refills(s) 0 Start Date: 11/01/19 Status: Ordered lansoprazole 15 mg disintegrating oral tablet (6 sources) Proton Pump Inhibitor Start: 10-13-2023 take 15 mg by mouth once daily Lansoprazole Active 15 MG PO Daily October 13, 2023 12:00am take 1 tablet by martinez th every twenty-four hours Lansoprazole 15 MG 1 tablet Orally Once a day Active losartan potassium 50 mg oral tablet (20 sources) Angiotensin 2 Receptor Ellis Start: 07-10-2024 take 1 tablet by mouth once daily losartan (Cozaar) 50 MG tablet Indications: Essential (primary) hypertension (CMS/HCC) Take 1 tablet (50 mg) by mouth Daily 90 tablet 1 07/10/2024 Active Start: 06-20-2024 End: 07-10-2024 take 1 tablet by mouth once daily losartan (Cozaar) 50 MG tablet Indications: Essential (primary) hypertension (CMS/HCC) Take 1 tablet (50 mg) by mouth Daily 90 tablet 1 06/20/2024 07/10/2024 Discontinued (Reorder) Start: 08-21-2021 End: 06-20-2024 take 1 tablet by mouth once daily losartan (Cozaar) 50 MG tablet Indications: Essential (primary) hypertension (CMS/HCC) Take 1 tablet (50 mg) by mouth Daily 90 tablet 1 03/27/2024 Active metoprolol tartrate 25 mg oral tablet (20 sources) beta-Adrenergic Ellis Start: 07-10-2024 take 1 tablet by mouth in the morning metoprolol tartrate (Lopressor) 25 MG tablet Indications: Essential (primary) hypertension (CMS/HCC) Take 1 tablet (25 mg) by mouth in the morning and 1 tablet (25 mg) before bedtime. 180 tablet 1 07/10/2024 Active Start: 06-20-2024 End: 07-10-2024 take 1 tablet by mouth in the morning metoprolol tartrate (Lopressor) 25 MG tablet Indications: Essential (primary) hypertension (CMS/HCC) Take 1 tablet (25 mg) by mouth in the morning and 1 tablet (25 mg) before bedtime. 180 tablet 1 06/20/2024 07/10/2024 Discontinued (Reorder) Start: 12-29-2023 End: 06-20-2024 take 1 tablet by mouth in the [...] omeprazole 40 mg delayed release oral capsule (20 sources) Proton Pump Inhibitor Start: 12-29-2023 End: 01-06-2025 take 1 capsule by mouth once daily omeprazole (PriLOSEC) [address] capsule Indications: Gastroesophageal reflux disease with esophagitis without hemorrhage Take 1 capsule (40 mg) by mouth Daily 90 capsule 1 07/10/2024 01/06/2025 Active predniSONE 20 mg oral tablet (2 sources) Start: 04-23-2024 End: 04-28-2024 take 2 tablets by mouth once daily predniSONE (Deltasone) 20 MG tablet Indications: Bronchitis Take 2 tablets (40 mg) by mouth Daily for 5 days 10 tablet 04/23/2024 04/28/2024 Active tamsulosin hydrochloride 0.4 mg oral capsule (20 sources) alpha-Adrenergi c Ellis Start: 07-10-2024 take 1 capsule by mouth once daily tamsulosin (Flomax) 0.4 MG 24 hr capsule Indications: Malignant (primary) neoplasm, unspecified (CMS/HCC) Take 1 capsule (0.4 mg) by mouth Daily 90 capsule 2 07/10/2024 Active Start: 06-20-2024 End: 07-10-2024 take 1 capsule by mouth once daily tamsulosin (Flomax) 0.4 MG 24 hr capsule Indications: Malignant (primary) neoplasm, unspecified (CMS/HCC) Take 1 capsule (0.4 mg) by mouth Daily 90 capsule 2 06/20/2024 07/10/2024 Discontinued (Reorder) Start: 12-20-2023 End: 01-11-2025 take 1 capsule by mouth once daily tamsulosin (Flomax) 0.4 MG 24 hr capsule Indications: Malignant (primary) neoplasm, unspecified (CMS/HCC) Take 1 capsule (0.4 mg) by mouth Daily 90 capsule 2 05/22/2024 Active Start: 11-01-2019 take 0.4 mg by [...] 09/28/2023 03/19/2024 Discontinued (Therapy completed) Vitamin D3 (3 sources) Start: 11-01-2019 Vitamin D3 Refills(s) 0 Start Date: 11/01/19 Status: Ordered Problems Active Problems Problem Classification Problem Date Documented Date Episodic/Chronic Alcohol-related disorders (1 source) Alcohol abuse with intoxication, unspecified; Translations: [ALCOHOL ABUSE WITH INTOXICATION UNS] Onset: Chronic Cancer of kidney and renal pelvis (3 sources) Renal cell carcinoma 11-01-2019 Chronic Cancer of prostate (20 sources) Malignant tumor of prostate; Translations: [Malignant neoplasm of prostate] Onset: 4 11-01-2019 Chronic Chronic kidney disease (20 sources) Chronic kidney disease stage 3; Translations: [Chronic kidney disease, stage III (moderate)] Onset: 4 10-13-2023 Chronic Chronic obstructive pulmonary disease and bronchiectasis (20 sources) Pulmonary emphysema; Translations: [Emphysema, unspecified] Onset: 3 05-10-2023 Chronic Chronic obstructive pulmonary disease and bronchiectasis (11 sources) Bronchitis; Translations: [Bronchitis, not specified as acute or chronic] Onset: 4 04-23-2024 Episodic Congestive heart failure; nonhypertensive (4 sources) Chronic right-sided heart failure; Translations: [Chronic right heart failure] 05-22-2024 Chronic Deficiency and other anemia (1 source) Anemia in chronic kidney disease; Translations: [Anemia in chronic kidney disease] Chronic Deficiency and other anemia (1 source) Anemia in chronic kidney disease Chronic Disorders of lipid metabolism (20 sources) Hyperlipidemia, unspecified; Translations: [Dyslipidemia] Onset: 3 Chronic E Codes: Fall (8 sources) Fall; Translations: [Unspecified fall, subsequent encounter] Onset: 4 05-22-2024 Episodic Esophageal disorders (4 sources) Gastro-esophageal reflux disease with esophagitis; Translations: [Gastroesophageal reflux disease with esophagitis without hemorrhage] 03-27-2024 Chronic Essential hypertension (20 sources) Essential (primary) hypertension; Translations: [Hypertensive disorder] Onset: 3 11-01-2019 Chronic Genitourinary congenital anomalies (9 sources) Renal agenesis and dysgenesis; 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, unilateral] Onset: 2 Resolved: 2 Chronic Genitourinary symptoms and ill-defined conditions (9 sources) History of urinary tract infection; Translations: [Increased frequency of urination] 11-09-2019 Episodic Hyperplasia of prostate (20 sources) Benign prostatic hypertrophy with outflow obstruction; Translations: [Benign prostatic hyperplasia with lower urinary tract symptoms] Onset: 4 Chronic Hypertension with complications and secondary hypertension (11 sources) Chronic kidney disease due to hypertension; Translations: [Hypertensive chronic kidney disease with stage 1 through stage 4 chronic kidney disease, or unspecified chronic kidney disease] Onset: 2 Resolved: 2 Chronic Malignant neoplasm without specification of site (5 sources) Primary malignant neoplasm; Translations: [Malignant (primary) neoplasm, unspecified] 05-22-2024 Chronic Other diseases of kidney and ureters (6 sources) Secondary hyperparathyroidism; Translations: [Secondary hyperparathyroidism of renal origin] 10-13-2023 Chronic Other diseases of kidney and ureters (5 sources) Secondary hyperparathyroidism of renal origin; Translations: [Secondary hyperparathyroidism (of renal origin)] Onset: 2 Resolved: 2 Chronic Other diseases of kidney and ureters (10 sources) Hyperparathyroidism due to renal insufficiency; Translations: [Secondary hyperparathyroidism of renal origin] Onset: 4 04-23-2024 Chronic Other fractures (8 sources) Fracture of third cervical vertebra; Translations: [Other displaced fracture of third cervical vertebra, subsequent encounter for fracture with routine healing] Onset: 4 05-22-2024 Episodic Other lower respiratory disease (4 sources) [...] Episodic Other nutritional; endocrine; and metabolic disorders (7 sources) Hyperuricemia; Translations: [Hyperuricemia without signs of inflammatory arthritis and tophaceous disease] 10-13-2023 Episodic Other upper respiratory infections (18 sources) Chronic sinusitis, unspecified; Translations: [Unspecified sinusitis (chronic)] Onset: 4 11-24-2023 Chronic Other upper respiratory infections (20 sources) Acute upper respiratory infection; Translations: [Acute upper respiratory infection, unspecified] Onset: 3 05-10-2023 Episodic Residual codes; unclassified (6 sources) Obstructive [...] W/AND (SUSP) EXPOS COVID-19] Onset: 2 Unclassified (3 sources) Drug therapy finding 11-01-2019 Past or Other Problems Problem Classification Problem Date Documented Da te Episodic/Chronic Abdominal pain (4 sources) Unspecified abdominal pain; Translations: [UNSPECIFIED ABDOMINAL PAIN] Onset: 01-01-2022 Episodic Cancer of kidney and renal pelvis (20 sources) History of malignant neoplasm of kidney; Translations: [Personal history of other malignant neoplasm of kidney] Onset: 05-10-2023 Episodic Cancer of prostate (20 sources) Personal history of malignant neoplasm of prostate; Translations: [History of malignant neoplasm of prostate] Onset: 10-11-2022 Episodic Chronic kidney disease (8 sources) Chronic kidney disease; Translations: [Chronic kidney disease, stage III (moderate)] Onset: 06-18-2021 Resolved: 06-18-2021 E Codes: Unspecified (1 source) Blood alcohol level of 240 mg/100 ml or more; Translations: [BLOOD ALCOHOL LV 240 MG/100 ML/MORE] Onset: 04-12-2022 Episodic Gastrointestinal hemorrhage (18 sources) Hematemesis; Translations: [Hematemesis] Onset: 08-23-2023 Resolved: 09-28-2023 09-28-2023 Episodic Malaise and fatigue (1 source) Weakness; Translations: [WEAKNESS] Onset: 04-12-2022 Episodic Mood disorders (18 sources) Mood disorders Onset: 05-10-2023 05-10-2023 Other aftercare (1 source) Other intermediate (current) drug therapy; Translations: [OTH SNF CURRENT DRUG THERAPY] Onset: 04-12-2022 Episodic Other aftercare (18 sources) Post-discharge follow-up; Translations: [Encounter for follow-up examination after completed treatment for conditions other than malignant neoplasm] Onset: 08-23-2023 08-23-2023 Episodic Other connective tissue disease (1 source) Pain in left leg; Translations: [PAIN IN LEFT LEG] Onset: 01-04-2022 Episodic Other injuries and conditions due to external causes (19 sources) Injury of right ankle; Translations: [Unspecified injury of right ankle, initial encounter] Onset: 03-19-2024 03-19-2024 Episodic Other nervous system disorders (1 source) Slurred speech; Translations: [SLURRED SPEECH] Onset: 04-12-2022 Episodic Other non-traumatic joint disorders (18 sources) Chronic pain of right upper limb; Translations: [Pain in right shoulder] Onset: 09-28-2023 09-28-2023 Episodic Other non-traumatic joint disorders (18 sources) Hip pain; Translations: [Pain in left hip] Onset: 09-28-2023 09-28-2023 Episodic Other screening for suspected conditions (not mental disorders or infectious disease) (20 sources) Other specified abnormal findings of blood chemistry; Translations: [Raised prostate specific antigen] Onset: 02-16-2022 Episodic Residual codes; unclassified (4 sources) Altered mental status, unspecified; Translations: [ALTERED MENTAL STATUS UNSPECIFIED] Onset: 04-08-2022 Episodic Spondylosis; intervertebral disc disorders; other back problems (18 sources) Chronic thoracic back pain; Translations: [Pain in thoracic spine] Onset: 08-23-2023 08-23-2023 Episodic Results Test Name Value Interpretation Reference Range Facility MHPT PSA, DIAGNOSTICon 04-18 PROSTATE SPECIFIC ANTIGEN DX 0.8 ng/mL NINF - 4.00 ng/mL [facility] No Panel Informationon 03-19 [facility] SARS-COV-2 AG*on 03-19-2024 SARS-CoV-2 (COVID-19) RNA PAUL+probe Ql (Unsp spec) Negative NEGATIVE [facility] Comment on above: This test has [...] terminated or authorization is revoked sooner. [facility] INFLUENZA A AND B AGon 1 INFLUENZA VIRUS A ANTIGEN Negative [facility] Comment on above: Negative for Flu A p rotein antigen. Infection due to Flu A cannot be ruled out. Flu A antigen in the sample may be below the detection limit of the test. INFLUENZA VIRUS B ANTIGEN Negative [facility] Comment on above: Negative for Flu B p rotein antigen. Infection due to Flu B cannot be ruled out. Flu B antigen in the sample may be below the detection limit of the test. Ambulatory Visit Summaryon 0 01-17-2024 Ambulatory Visit Summary Ambulatory Visit Summary MARCO MUSTAFA :1955 Visit Date:01/17/2024 Ambulatory Visit Instructions Your Diagnosis Rising PSA following treatment for malignant neoplasm of prostate Personal history of prostate cancer BPH with obstruction/lower urinary tract symptoms Personal history of renal cell carcinoma Your Care Team Attending Physician - Will HOLLINS MD Primary Care Physician - KALIN HENDRICKSON, This Is Your Medications List tamsulosin (tamsulosin [...] Will HOLLINS MD Where: [facility] [address] [place] [address]- You Need to Schedule the Following Appointments Follow Up with GURVINEDR HENDRICKSON, Will Day, URL When: Where: [address] [address]- Medications What How Much When Instructions Changed tamsulosin (tamsulosin 0.4 mg Cap) 1 Capsules By Mouth Every day Duration: 90 Days Pickup at [facility] Unchanged allopurinol (allopurinol 100 mg Tab) [...] physician if questions or concerns Pharmacy Information [facility]: [address] [place], [place] [id number] [phone] Allergies No Known Medication Allergies Problems Ongoing [...] care pr (more content not included)... Normal [facility] Urology Office/Clinic Noteon 01-17-2024 Urology Office/Clinic Note [...] he had a Primitivo 7. Completed at [facility]. [1] S/p brachytherapy 03/24/11. PSA [...] Information GURVINDER HENDRICKSON, Will Day, URL [address] [address]- Additional Instructions: 4 mos with PSA Patient [...] with voice recognition artificial intelligence software, specifically [employer], [employer] and or [employer]. Substitutions may have occurred due to the [...] Left nephrect (more content not included)... Normal [facility] Comment on above: Result Comment: Elec tronically Signed By: Will HOLLINS MD\.br\Date and Time Signed: 01/17/24 08:35 EDT\.br\Electronically Co-Signed By: Laurel Bradley\.br\Date and Time Co-Signed: 01/17/24 08:31 EDT ED Note-Physicianon 10-20-19 ED Note-Physician [id number] 0#1.00TIFF Normal [facility] Lab Reportson 10-20-2023 Lab Reports [id number] 9#1.00TIFF Normal [facility] Lab Reports [id number] 2#1.00TIFF Normal [facility] RAD - CT Reporton 10-20-2023 RAD - CT Report [id number] 5#1.00TIFF Normal [facility] Screenson 10-20-2023 Screens [id number] #1.00TIFF [facility] Ambulatory Visit Summaryon 0 10-17-2023 Ambulatory [...] GAGNON MD This Is Your Medications List Contact prescribing [...] HENDRICKSON, Will Day Where: [facility] Patient Educationon 10-17-19 Patient Education [...] likelihood that the cancer will spread. ? [place] 6 or lower: This indicates that the cancer cells look similar to normal prostate cells (well differentiated). ? [place] 7: This indicates that the cancer cells look somewhat similar to normal prostate cells (moderately differentiated). ? [place] 8, 9, or 10: This indicates that [...] external be (more content not included)... Normal [facility] Urology Office/Clinic Noteon 10-17-2023 Urology Office/Clinic Note Chief Complaint 1 year follow up HPI Staff 1 year follow up w/PSA *Taking Flomax 0.4 mg qd S/P Lt Nephrectomy 2000 Pt was seen at [facility] on 09/06/23 due to left rib pain. BUN 36, Creatinine 1.09 10/04/23. BUN 26. Creatinine 1.33 09/06/23 CT SCAN 08/12/23 PSA: 10/26/19 - 0.05 08/10/21 - 0.05 10/11/22 - <0.13 09/30/23 - 0.90 Dysuria: denies pain or burning Incomplete bladder emptying: denies Hematuria: yes 6 weeks ago, went to [facility], vomiting blood Frequency: 3x a day [...] with voice recognition artificial intelligence software, specifically [employer], [employer] and or [employer]. Substitutions may have occurred due to the inherent limitations of voice recognition and artificial intelligence software. 1. Rising PSA following treatment for malignant neoplasm of prostate (R97.21: Rising PSA following treatment for malignant neoplasm of prostate) PSA: 10/26/19 - 0.05 08/10/21 - 0.05 10/11/22 - <0.13 09/30/23 - 0.90 S/p brachytherapy 03/24/11. Pt believes he had a [place] 7. Completed at [facility]. Rise in PSA is concerning [...] adenocarcinoma the prostate, previously treated at the [facility] with prostate brachytherapy now has [...] Information GURVINDER HENDRICKSON, Will Day, URL [address] [place] [id number]- Additional Instructions: 3 mos w/ PSA Patient Education Prostate Cancer I, Tala Lugo, personally scribed for Dr. Hollins on 10/17/2023 10:42:59. . Documentation recorded by the scribe, Tala Lugo, accurately reflects the services(s) I performed and decisions made by me. Authenticated by Dr. Hollins on 10/17/2023 10:47:47. Problem List/Past (more content not included)... Normal [facility] Comment on above: Result Comment: Elec tronically Signed By: Will HOLLINS MD\.br\Date and Time Signed: 10/17/23 10:50 EDT Automated epithelial cells c ount in urine sediment (number/area)on 10-04-2023 Epithelial cells Auto (Urine sed) [#/Area] NONE SEEN #/LPF NONE/RARE [facility] Automated leukocytes count i n urine sediment (number/area)on 10-04-2023 WBC Auto (Urine sed) [#/Area] NONE SEEN #/HPF 0-2 [facility] Automated urine specific gra vity by refractometryon 10-04-2023 Specific gravity Refractometry automated (U) [Rel density] 1.025 1.005-1.025 [facility] Bilirubin Auto test strip (U ) [Mass/Vol]on 10-04-2023 Bilirubin (U) [Mass/Vol] Negative NEGATIVE [facility] Casts typing in urine sedime nt by light microscopyon 10-04-2023 Casts LM Nom (Urine sed) NONE SEEN #/LPF NONE SEEN [facility] Color Auto (U)on 10-04-2023 Color (U) YELLOW YELLOW [facility] Erythrocyte distribution wid th Auto (RBC) [Ratio]on 10-04-2023 Erythrocyte distribution width (RBC) [Ratio] 13.5 % 11.0-15.0 [facility] Estimated glomerular filtrat ion rate (GFR) non- Americanon 10-04-2023 GFR/1.73 sq M.predicted among non-blacks MDRD (S/P/Bld) [Vol rate/Area] mL/min/{1.73_m2} >=60 [facility] Hematocrit Auto (Bld) [Volum e fraction]on 10-04-2023 Hematocrit (Bld) [Volume fraction] 38.9 % 42.0-54.0 [facility] Hemoglobin [Mass/volume] in Bloodon 10-04-2023 Hemoglobin (Bld) [Mass/Vol] 13.2 g/dL 14.0-18.0 [facility] Iron binding capacity [Mass/ volume] in Serum or Plasmaon 10-04-2023 Iron binding capacity [Mass/Vol] 274.0 ug/dL 250.0-450.0 [facility] Iron saturation [Mass Fracti on] in Serum or Plasmaon 10-04-2023 Iron saturation [Mass fraction] 29.2 % [facility] Ketones Auto test strip (U) [Mass/Vol]on 10-04-2023 Ketones (U) [Mass/Vol] Negative NEGATIVE [facility] Laboratory - Chemistry and C hemistry - challengeon 10-04-2023 Albumin [Mass/Vol] 3.6 g/dL 3.4-5.0 [facility] Calcium [Mass/Vol] 9.4 mg/dL 8.5-10.1 [facility] Chloride [Moles/Vol] 104 mmol/L 98-107 [facility] CO2 [Moles/Vol] 24.4 mmol/L 21.0-32.0 [facility] Creatinine [Mass/Vol] 1.09 mg/dL 0.70-1.30 [facility] Ferritin [Mass/Vol] 257.0 ng/mL 26.0-388.0 [facility] GFR/1.73 sq M.predicted MDRD (S/P/Bld) [Vol rate/Area] mL/min/{1.73_m2} >=60 [facility] Glucose [Mass/Vol] 117 mg/dL 74-106 [facility] Iron [Mass/Vol] 80.0 ug/dL 65.0-175.0 [facility] Potassium [Moles/Vol] 3.9 mmol/L 3.5-5.1 [facility] Sodium [Moles/Vol] 139 mmol/L 136-145 [facility] Urate [Mass/Vol] 5.6 mg/dL 3.5-7.2 [facility] Urea nitrogen [Mass/Vol] 36.0 mg/dL 7.0-18.0 [facility] Urea nitrogen/Creatinine [Mass ratio] 33.0 mg/mg [facility] Laboratory - Urinalysison Protein (U) [Mass/Vol] 16.2 mg/dL <=11.9 [facility] Leukocytes [#/volume] correc yoandy for nucleated erythrocytes in Blood by Automated counon 10-04-2023 WBC corrected for nucl RBC Auto (Bld) [#/Vol] 11.9 10 3/uL 4.0-11.0 [facility] MCH Auto (RBC) [Entitic mass ]on 10-04-2023 MCH (RBC) [Entitic mass] 31.6 pg 25.9-34.0 [facility] MCHC Auto (RBC) [Mass/Vol]on 10-04-2023 MCHC (RBC) [Mass/Vol] 33.9 g/dL 29.9-35.2 [facility] MCV Auto (RBC) [Entitic vol] on 10-04-2023 MCV (RBC) [Entitic vol] 93.1 fL 80.0-94.0 [facility] Mucus LM Ql (Urine sed)on Mucus Ql (Urine sed) NONE SEEN NONE SEEN [facility] No Panel Informationon 10-03 25-Hydroxy Vitamin D Total 29.7 ng/mL [facility] Comment on above: <20 ng/mL Vit D defi cient20-<30 ng/mL Vit D yumvrjegbqch81-281 ng/mL Vit D sufficient>100 ng/mL Potential Toxicity Parathyroid Hormone (Intact) 35 pg/mL 15-65 [facility] Comment on above: Performed at: [facility] [place] [id number] Director: Raymundo Wynn PhD, Phone: [phone] Phosphorus Level 4.4 mg/dL 2.6-4.7 [facility] Urine Random Creatinine 102.05 mg/dL 20.00-300.00 [facility] Platelet mean volume Auto (B ld) [Entitic vol]on 10-04-2023 Platelet mean volume (Bld) [Entitic vol] 10.5 fL 9.5-13.5 [facility] Platelets Auto (Bld) [#/Vol] on 10-04-2023 Platelets (Bld) [#/Vol] 244 10 3/uL 150-450 [facility] Protein Auto test strip (U) [Mass/Vol]on 10-04-2023 Protein (U) [Mass/Vol] Negative NEG/TRACE [facility] RBC Auto (Bld) [#/Vol]on RBC (Bld) [#/Vol] 4.18 10 6/uL 4.70-6.10 [facility] Serum or plasma anion gap de terminationon 10-04-2023 Anion gap [Moles/Vol] 14.5 mmol/L [facility] Specific gravity Auto test s trip (U) [Rel density]on 10-04-2023 Specific gravity (U) [Rel density] CLEAR CLEAR [facility] Urine bacteria detection by automated methodon 10-04-2023 Bacteria Auto Ql (U) NONE SEEN #/HPF NONE SEEN [facility] Urine glucose measurement by test strip (mass/volume)on 10-04-2023 Glucose Test strip (U) [Mass/Vol] Negative NEGATIVE [facility] Urine hemoglobin detection b y automated test stripon 10-04-2023 Hemoglobin Auto test strip Ql (U) Negative NEGATIVE [facility] Urine nitrite detection by a utomated test stripon 10-04-2023 Nitrite Auto test strip Ql (U) Negative NEGATIVE [facility] Urine protein/creatinine rat ioon 10-04-2023 Protein/Creatinine (U) [Ratio] 0.16 [facility] Urine sediment crystal ident ification by light microscopyon 10-04-2023 Crystals LM Nom (Urine sed) None Seen #/HPF None Seen [facility] Urine sediment leukocyte cou nt by microscopy (number/high power field)on 10-04-2023 WBC LM.HPF (Urine sed) [#/Area] 0-2 #/HPF NONE SEEN [facility] Urobilinogen Auto test strip (U) [Mass/Vol]on 10-04-2023 Urobilinogen Qn (U) 0.2 {Dash'U}/dL 0.2-1.0 [facility] pH Auto test strip (U)on pH (U) 6.0 [pH] 5.0-9.0 [facility] Lab Reportson 09-30-2023 Lab Reports [id number] #[id number] Normal [facility] CT CHEST WO CONon 10-11-2022 CT CHEST [...] LUCAS GOLDSTEIN Date: 2022-10-11 15:31 Normal [facility] CBC AUTO DIFFon 08-23-2022 BASO # 0.0 103/ul Normal 0.0-0.1 [facility] Comment on above: Performed By: #### C BC #### [facility] [address] [place] [address] Dr. Jesus White Basophils/100 WBC (Bld) 0.5 % Normal 0.2-2.0 [facility] Comment on above: Performed By: #### C BC #### [facility] [address] [place] [address] [address] Jesus White EO # 0.2 103/ul Normal 0.0-0.7 [facility] Comment on above: Performed By: #### C BC #### [facility] [address] [place] [address] Dr. Jesus White Eosinophils/100 WBC (Bld) 2.2 % Normal 0.9-7.0 [facility] Comment on above: Performed By: #### C BC #### [facility] [address] [place] [address] Dr. Jesus White Erythrocyte distribution width (RBC) [Ratio] 13.3 % Normal 11.0-15.0 [facility] Comment on above: Performed By: #### C BC #### [facility] [address] [place] [address] [address] Jesus White Hematocrit (Bld) [Volume fraction] 43.0 % Normal 42.0-54.0 [facility] Comment on above: Performed By: #### C BC #### [facility] [address] [place] [address] Dr. Jesus White Hemoglobin (Bld) [Mass/Vol] 14.4 g/dL Normal 14.0-18.0 [facility] Comment on above: Performed By: #### C BC #### [facility] [address] [place] [address] Dr. Jesus White IG # 0.02 10e3/ul Normal 0.00-0.03 [facility] Comment on above: Performed By: #### C BC #### [facility] [address] [place] [address] Dr. Jesus White IG % 0.2 % Normal 0.0-0.5 [facility] Comment on above: Performed By: #### C BC #### [facility] [address] [place] [address] Dr. Jesus White LYMPH # 3.0 103/ul Normal 1.2-3.8 [facility] Comment on above: Performed By: #### C BC #### [facility] [address] [place] [address] Dr. Jesus White Lymphocytes/100 WBC (Bld) 35.8 % Normal 20.5-60.0 [facility] Comment on above: Performed By: #### C BC #### [facility] [address] [place] [address] Dr. Jesus White MANUAL DIFF REQ NO Normal [facility] Comment on above: Performed By: #### C BC #### [facility] [address] [place] [address] Dr. Jesus White MCH (RBC) [Entitic mass] 30.6 pg Normal 25.9-34.0 [facility] Comment on above: Performed By: #### C BC #### [facility] [address] [place] [address] Dr. Jesus White MCHC (RBC) [Mass/Vol] 33.5 g/dL Normal 29.9-35.2 [facility] Comment on above: Performed By: #### C BC #### [facility] [address] [place] [address] Dr. Jesus White MCV (RBC) [Entitic vol] 91.5 fL Normal 80.0-94.0 [facility] Comment on above: Performed By: #### C BC #### [facility] [address] [place] [address] Dr. Jesus White MONO # 0.8 103/ul Normal 0.3-0.8 [facility] Comment on above: Performed By: #### C BC #### [facility] [address] [place] [address] Dr. Jesus White Monocytes/100 WBC (Bld) 9.1 % Normal 1.7-12.0 [facility] Comment on above: Performed By: #### C BC #### [facility] [address] [place] [address] Dr. Jesus White NEUT # 4.4 103/ul Normal 1.4-6.5 [facility] Comment on above: Performed By: #### C BC #### [facility] [address] [place] [address] Dr. Jesus White Neutrophils/100 WBC (Bld) 52.2 % Normal 43.0-75.0 [facility] Comment on above: Performed By: #### C BC #### [facility] [address] [place] [address] Dr. Jesus White Platelet mean volume (Bld) [Entitic vol] 9.8 fL Normal 9.5-13.5 [facility] Comment on above: Performed By: #### C BC #### [facility] [address] [place] [address] Dr. Jesus White PLT 236 103/ul Normal 150-450 [facility] Comment on above: Performed By: #### C BC #### [facility] [address] [place] [address] Dr. Jesus White RBC 4.70 106/ul Normal 4.70-6.10 [facility] Comment on above: Performed By: #### C BC #### [facility] [address] [place] [address] Dr. Jesus White WBC 8.4 103/ul Normal 4.0-11.0 [facility] Comment on above: Performed By: #### C BC #### [facility] [address] [place] [address] [address] Jesus White LIPID PROFILEon 08-23-2022 CHOL-HDL RATIO NORM SEE BELOW Normal [facility] Comment on above: Result Comment: 3.3 - 4.4 LOW RISK 4.4 - 7.1 AVERAGE RISK 7.1 - 11.0 MODERATE RISK >11.0 HIGH RISK Performed By: #### C MP, LIPID #### [facility] [address] [place] [address] [address] Jesus White Cholesterol [Mass/Vol] 121 mg/dL Normal <=200 [facility] Comment on above: Performed By: #### C MP, LIPID #### [facility] [address] [place] [address] [address] Jesus White Cholesterol in HDL [Mass/Vol] 37 mg/dL Critically low 40-60 [facility] Comment on above: Performed By: #### C MP, LIPID #### [facility] [address] [place] [address] [address] Jesus White Cholesterol in LDL [Mass/Vol] 59.6 mg/dL Normal [facility] Comment on above: Performed By: #### C MP, LIPID #### [facility] [address] [place] [address] [address] Jesus White Cholesterol.total/Ch olesterol in HDL [Mass ratio] 3.3 {ratio} Normal [facility] Comment on above: Performed By: #### C MP, LIPID #### [facility] [address] [place] [address] [address] Jesus White HDL NORMAL > or = 60 mg/dl - LOW CARDIOVASCULAR RISK <40 mg/dl - HIGH CARDIOVASCULAR RISK Normal [facility] Comment on above: Performed By: #### C MP, LIPID #### [facility] [address] [place] [address] [address] Jesus White LDL CALC NORMAL SEE BELOW Normal [facility] Comment on above: Result Comment: <100 mg/dl OPTIMAL 100 - 129 mg/dl NEAR OR ABOVE OPTIMAL 130 - 159 mg/dl BORDERLINE HIGH 160 - 189 mg/dl HIGH >190 mg/dl VERY HIGH Performed By: #### C MP, LIPID #### [facility] [address] [place] [address] Dr. Jesus White Triglyceride [Mass/Vol] 122 mg/dL Normal <=150 [facility] Comment on above: Performed By: #### C MP, LIPID #### [facility] [address] [place] [address] Dr. Jesus White VLDL CALC 24.4 mg/dL Normal [facility] Comment on above: Performed By: #### C MP, LIPID #### [facility] [address] [place] [address] Dr. Jesus White PROF 14(COMP METB)on 023 Albumin [Mass/Vol] 3.8 g/dL Normal 3.4-5.0 [facility] Comment on above: Performed By: #### C MP, LIPID #### [facility] [address] [place] [address] Dr. Jesus White Albumin/Globulin [Mass ratio] 1.1 {ratio} Normal [facility] Comment on above: Performed By: #### C MP, LIPID #### [facility] [address] [place] [address] Dr. Jesus White ALP [Catalytic activity/Vol] 46 U/L Normal 46-116 [facility] Comment on above: Performed By: #### C MP, LIPID #### [facility] [address] [place] [address] Dr. Jesus White ALT [Catalytic activity/Vol] 37 U/L Normal 16-63 [facility] Comment on above: Performed By: #### C MP, LIPID #### [facility] [address] [place] [address] Dr. Jesus White Anion gap [Moles/Vol] 11.3 mmol/L Normal [facility] Comment on above: Performed By: #### C MP, LIPID #### [facility] [address] [place] [address] Dr. Jesus White AST [Catalytic activity/Vol] 28 U/L Normal 15-37 [facility] Comment on above: Performed By: #### C MP, LIPID #### [facility] [address] [place] [address] [address] Jesus White Bilirubin [Mass/Vol] 0.5 mg/dL Normal 0.2-1.0 [facility] Comment on above: Performed By: #### C MP, LIPID #### [facility] [address] [address] [address] Jesus White Calcium [Mass/Vol] 9.5 mg/dL Normal 8.5-10.1 [facility] Comment on above: Performed By: #### C MP, LIPID #### [facility] [address] [address] [address] Jesus White Chloride [Moles/Vol] 104 mmol/L Normal 98-107 [facility] Comment on above: Performed By: #### C MP, LIPID #### [facility] [address] [place] [address] Dr. Jesus White CO2 [Moles/Vol] 28.9 mmol/L Normal 21.0-32.0 [facility] Comment on above: Performed By: #### C MP, LIPID #### [facility] [address] [place] [address] Dr. Jesus White Creatinine [Mass/Vol] 0.99 mg/dL Normal 0.70-1.30 [facility] Comment on above: Performed By: #### C MP, LIPID #### [facility] [address] [place] [address] Dr. Jesus White EGFR-AF YEMENI >60 Normal >=60 [facility] Comment on above: Performed By: #### C MP, LIPID #### [facility] [address] [address] [address] Jesus White EGFR-NON AF YEMENI >60 Normal >=60 [facility] Comment on above: Performed By: #### C MP, LIPID #### [facility] [address] [place] [address] Dr. Jesus White Globulin (S) [Mass/Vol] 3.6 g/dL Normal [facility] Comment on above: Performed By: #### C MP, LIPID #### [facility] [address] [address] [address] Jesus White Glucose [Mass/Vol] 92 mg/dL Normal 74-106 [facility] Comment on above: Performed By: #### C MP, LIPID #### [facility] [address] [address] [address] Jesus White Potassium [Moles/Vol] 4.2 mmol/L Normal 3.5-5.1 [facility] Comment on above: Performed By: #### C MP, LIPID #### [facility] [address] [address] [address] Jesus White Protein [Mass/Vol] 7.4 g/dL Normal 6.4-8.2 [facility] Comment on above: Performed By: #### C MP, LIPID #### [facility] [address] [place] [address] Dr. Jesus Wihte Sodium [Moles/Vol] 140 mmol/L Normal 136-145 [facility] Comment on above: Performed By: #### C MP, LIPID #### [facility] [address] [place] [address] [address] Jesus White Urea nitrogen [Mass/Vol] 12.0 mg/dL Normal 7.0-18.0 [facility] Comment on above: Performed By: #### C MP, LIPID #### [facility] [address] [place] [address] Dr. Jesus White Urea nitrogen/Creatinine [Mass ratio] 12.1 mg/mg Normal [facility] Comment on above: Performed By: #### C MP, LIPID #### [facility] [address] [place] [address] LUNG CANCER SCREENINGon [...] LUCAS GOLDSTEIN Date: 2022-07-05 12:53 Normal [facility] BLOOD GASES BTYon 04-08-2022 02 MODE ROOM AIR Normal [facility] Comment on above: Performed By: #### A BG ####[facility] [address] [place] [address]Dr. Jesus White ALLENS TEST Positive Normal [facility] Comment on above: Performed By: #### A BG ####[facility] [address] [place] [address]Dr. Jesus White Base excess Calc (Bld) [Moles/Vol] -0.4000 mmol/L Normal -2.0-2.0 [facility] Comment on above: Performed By: #### A BG ####[facility] [address] [place] [address]Dr. Jesus White BIPAP PRESSURE Normal [facility] Comment on above: Performed By: #### A BG ####[facility] [address] [place] [address]Dr. Jesus White CPAP Normal [facility] Comment on above: Performed By: #### A BG ####[facility] [address] [place] [address]Dr. Jesus White FIO2 Normal [facility] Comment on above: Performed By: #### A BG ####[facility] [address] [place] [address]Dr. Jesus White HCO3 (Bld) [Moles/Vol] 24.7 mmol/L Normal 22.0-26.0 [facility] Comment on above: Performed By: #### A BG ####[facility] [address] [place], [place] [address]Dr. Jesus White LPM Normal [facility] Comment on above: Performed By: #### A BG ####[facility] [address] [place], [place] [address]Dr. Jesus White MINUTE VOLUME Normal [facility] Comment on above: Performed By: #### A BG ####[facility] [address] [place], [place] [address]Dr. Jesus White Oxygen (Bld) [Partial pressure] 75.3 mm[Hg] Critically low 80.0-100.0 [facility] Comment on above: Performed By: #### A BG ####[facility] [address] [place], [place] [address]Dr. Jesus White Oxygen saturation in Blood 94.7 % Critically low 95.0-100.0 [facility] Comment on above: Performed By: #### A BG ####[facility] [address] [place], [place] [address]Dr. Jesus White PCO2 42.0 mmHg Normal 35.0-45.0 [facility] Comment on above: Performed By: #### A BG ####[facility] [address] [place], [place] [address]Dr. Jesus White PEEP Normal [facility] Comment on above: Performed By: #### A BG ####[facility] [address] [place], [place] [address]Dr. Jesus White pH (Bld) 7.379 [pH] Normal 7.350-7.450 [facility] Comment on above: Performed By: #### A BG ####[facility] [address] [place] [address]Dr. Jesus White PIP [facility] Comment on above: Performed By: #### A BG ####[facility] [address] [place] [address]Dr. Jesus White PS [facility] Comment on above: Performed By: #### A BG ####[facility] [address] [place] [address]Dr. Jesus White PUNCTURE SITE LR [facility] Comment on above: Performed By: #### A BG ####[facility] [address] [place] [address]Dr. Jesus White RATE [facility] Comment on above: Performed By: #### A BG ####[facility] [address] [place], [place] [address]Dr. Jesus White VENT MODE [facility] Comment on above: Performed By: #### A BG ####[facility] [address] [place], [place] [address]Dr. Jesus White [place] [facility] Comment on above: Performed By: #### A BG ####[facility] [id number] [address]Dr. Jesus White CBC AUTO DIFFon 04-08-2022 BASO # 0.1 103/ul Normal 0.0-0.1 [facility] Comment on above: Performed By: #### C BC #### [facility] [address] [address] [address] Jesus White Basophils/100 WBC (Bld) 0.6 % Normal 0.2-2.0 [facility] Comment on above: Performed By: #### C BC #### [facility] [address] [address] [address] Jesus White EO # 0.2 103/ul Normal 0.0-0.7 [facility] Comment on above: Performed By: #### C BC #### [facility] [address] [place] [address] Dr. Jesus White Eosinophils/100 WBC (Bld) 1.5 % Normal 0.9-7.0 [facility] Comment on above: Performed By: #### C BC #### [facility] [address] [place] [address] Dr. Jesus White Erythrocyte distribution width (RBC) [Ratio] 13.2 % Normal 11.0-15.0 [facility] Comment on above: Performed By: #### C BC #### [facility] [address] [place] [address] Dr. Jesus White Hematocrit (Bld) [Volume fraction] 41.7 % Critically low 42.0-54.0 [facility] Comment on above: Performed By: #### C BC #### [facility] [address] [place] [address] Dr. Jesus White Hemoglobin (Bld) [Mass/Vol] 14.3 g/dL Normal 14.0-18.0 [facility] Comment on above: Performed By: #### C BC #### [facility] [address] [place] [address] Dr. Jesus White IG # 0.03 10e3/ul Normal 0.00-0.03 [facility] Comment on above: Performed By: #### C BC #### [facility] [address] [place] [address] Dr. Jesus White IG % 0.3 % Normal 0.0-0.5 [facility] Comment on above: Performed By: #### C BC #### [facility] [address] [place] [address] Dr. Jesus White LYMPH # 5.6 103/ul Critically high 1.2-3.8 [facility] Comment on above: Performed By: #### C BC #### [facility] [address] [place] [address] Dr. Jesus White Lymphocytes/100 WBC (Bld) 57.0 % Normal 20.5-60.0 [facility] Comment on above: Performed By: #### C BC #### [facility] [address] [place] [address] Dr. Jesus White MANUAL DIFF REQ NO Normal [facility] Comment on above: Performed By: #### C BC #### [facility] [address] [place] [address] Dr. Jesus White MCH (RBC) [Entitic mass] 31.4 pg Normal 25.9-34.0 [facility] Comment on above: Performed By: #### C BC #### [facility] [address] [place] [address] Dr. Jesus White MCHC (RBC) [Mass/Vol] 34.3 g/dL Normal 29.9-35.2 [facility] Comment on above: Performed By: #### C BC #### [facility] [address] [place] [address] Dr. Jesus White MCV (RBC) [Entitic vol] 91.6 fL Normal 80.0-94.0 [facility] Comment on above: Performed By: #### C BC #### [facility] [address] [place] [address] Dr. Jesus White MONO # 0.5 103/ul Normal 0.3-0.8 [facility] Comment on above: Performed By: #### C BC #### [facility] [address] [place] [address] Dr. Jesus White Monocytes/100 WBC (Bld) 5.1 % Normal 1.7-12.0 [facility] Comment on above: Performed By: #### C BC #### [facility] [address] [place] [address] Dr. Jesus White NEUT # 3.5 103/ul Normal 1.4-6.5 [facility] Comment on above: Performed By: #### C BC #### [facility] [address] [place] [address] Dr. Jesus White Neutrophils/100 WBC (Bld) 35.5 % Critically low 43.0-75.0 [facility] Comment on above: Performed By: #### C BC #### [facility] [id number] Jesus White Platelet mean volume (Bld) [Entitic vol] 9.5 fL Normal 9.5-13.5 [facility] Comment on above: Performed By: #### C BC #### [facility] [address] [address] [address] Jesus White PLT 222 103/ul Normal 150-450 [facility] Comment on above: Performed By: #### C BC #### [facility] [address] [address] [address] Jesus White RBC 4.55 106/ul Critically low 4.70-6.10 [facility] Comment on above: Performed By: #### C BC #### [facility] [address] [address] [address] Jesus White WBC 9.8 103/ul Normal 4.0-11.0 [facility] Comment on above: Performed By: #### C BC #### [facility] [address] [address] [address] STROKE HEAD WOon [...] ERNA LEON Date: 2022-04-08 18:50 Normal [facility] Covid-19 PCR (CVDTB)on SARS-CoV-2 (COVID-19) RNA PAUL+probe Ql (Unsp spec) Not detected Normal NOT DETECTED [facility] Comment on above: Result [...] for this test is supported by the [employer] of Health and Human Service's declaration that [...] used). Performed By: #### C VDTBH #### [facility] [address] [place] [address] Dr. Jesus White ETHANOL (BLD ALC)on 04-08-20 22 ALC NOTE NOTE: 80 mg/dl is the legal limit for a blood alcohol level Normal [facility] Comment on above: Performed By: #### E TH ####[facility] [address] [address]Dr. Jesus White Ethanol [Mass/Vol] 344 mg/dL Normal [facility] Comment on above: Performed By: #### E TH ####[facility] [address] [address]Dr. Jesus White PROF 14(COMP METB)on 022 Albumin [Mass/Vol] 3.5 g/dL Normal 3.4-5.0 [facility] Comment on above: Performed By: #### C JORGE HSTROPN #### [facility] [address] [place] [address] Dr. Jesus White Albumin/Globulin [Mass ratio] 1.0 {ratio} Normal [facility] Comment on above: Performed By: #### C JORGE HSTROPN #### [facility] [address] [address] [address] Jesus White ALP [Catalytic activity/Vol] 41 U/L Critically low 46-116 [facility] Comment on above: Performed By: #### C JORGE, HSTROPN #### [facility] [address] [place] [address] Dr. Jesus White ALT [Catalytic activity/Vol] 28 U/L Normal 16-63 [facility] Comment on above: Performed By: #### C JORGE, HSTROPN #### [facility] [address] [place] [address] Dr. Jesus White Anion gap [Moles/Vol] 12.1 mmol/L Normal [facility] Comment on above: Performed By: #### C JORGE, HSTROPN #### [facility] [address] [place] [address] Dr. Jesus White AST [Catalytic activity/Vol] 19 U/L Normal 15-37 [facility] Comment on above: Performed By: #### C JORGE, HSTROPN #### [facility] [address] [place] [address] Dr. Jesus White Bilirubin [Mass/Vol] 0.3 mg/dL Normal 0.2-1.0 [facility] Comment on above: Performed By: #### C JORGE, HSTROPN #### [facility] [address] [place] [address] Dr. Jesus White Calcium [Mass/Vol] 8.8 mg/dL Normal 8.5-10.1 [facility] Comment on above: Performed By: #### C JORGE, HSTROPN #### [facility] [address] [place] [address] Dr. Jesus White Chloride [Moles/Vol] 105 mmol/L Normal 98-107 [facility] Comment on above: Performed By: #### C JORGE, HSTROPN #### [facility] [address] [place] [address] Dr. Jesus White CO2 [Moles/Vol] 24.8 mmol/L Normal 21.0-32.0 [facility] Comment on above: Performed By: #### C JORGE, HSTROPN #### [facility] [address] [address] [address] Jesus White Creatinine [Mass/Vol] 1.53 mg/dL Critically high 0.70-1.30 [facility] Comment on above: Performed By: #### C MP, HSTROPN #### [facility] [address] [address] [address] Jesus White EGFR-AF YEMENI 55 mL/min/1.73m2 Critically low >=60 [facility] Comment on above: Result Comment: Prev iously reported as: (blank) On 04/08/2022 19:15 By [facility] Performed By: #### C MP, HSTROPN #### [facility] [address] [place] [address] Dr. Jesus White EGFR-NON AF YEMENI 46 mL/min/1.73m2 Critically low >=60 [facility] Comment on above: Result Comment: Prev iously reported as: (blank) On 04/08/2022 19:15 By [facility] Performed By: #### C MP, HSTROPN #### [facility] [address] [place] [address] Dr. Jesus White Globulin (S) [Mass/Vol] 3.5 g/dL Normal [facility] Comment on above: Performed By: #### C MP, HSTROPN #### [facility] [address] [place] [address] Dr. Jesus White Glucose [Mass/Vol] 116 mg/dL Critically high 74-106 [facility] Comment on above: Performed By: #### C MP, HSTROPN #### [facility] [address] [place] [address] Dr. Jesus White Potassium [Moles/Vol] 3.9 mmol/L Normal 3.5-5.1 [facility] Comment on above: Performed By: #### C MP, HSTROPN #### [facility] [address] [place] [address] Dr. Jesus White Protein [Mass/Vol] 7.0 g/dL Normal 6.4-8.2 [facility] Comment on above: Performed By: #### C MP, HSTROPN #### [facility] [address] [address] [address] Jesus White Sodium [Moles/Vol] 138 mmol/L Normal 136-145 [facility] Comment on above: Performed By: #### C MP, HSTROPN #### [facility] [address] [address] [address] Jesus White Urea nitrogen [Mass/Vol] 17.0 mg/dL Normal 7.0-18.0 [facility] Comment on above: Performed By: #### C MP, HSTROPN #### [facility] [address] [address] [address] Jesus White Urea nitrogen/Creatinine [Mass ratio] 11.1 mg/mg Normal [facility] Comment on above: Performed By: #### C MP, HSTROPN #### [facility] [address] [address] [address] Jesus White PROTIMEon 04-08-2022 INR Coag (PPP) [Relative time] 1.00 {INR} Normal [facility] Comment on above: Performed By: #### P TT, PT ####[facility] [address] [address]DrJordin White INR GUIDELINES SEE BELOW [facility] Comment on above: Result Comment: JULIET RED INR: 2.0 - 3.0 CONDITIONS NOT LISTED BELOW 2.5 - 3.5 FOR PROSTHETIC HEART VALVE REPLACEMENT 2.5 - 3.5 RECURRENT THROMBOSIS Performed By: #### P TT, PT ####[facility] [address] [address]Dr. Jesus White PT Coag (PPP) [Time] 10.8 s Normal 9.0-11.6 [facility] Comment on above: Performed By: #### P TT, PT ####[facility] [address] [address]Dr. Jesus White PTTon 04-08-2022 aPTT Coag (Bld) [Time] 24.8 s Normal 22.3-36.2 [facility] Comment on above: Performed By: #### P TT, PT ####[facility] [address] [address]Dr. Jesus White TROPONIN, HIGH SENSITIVITYon 04-08-2022 HSTROP 16.7 pg/mL Normal 4.0-76.1 [facility] Comment on above: Result Comment: CUT- OFF POINTS HAVE BEEN ESTABLISHED BASED ON THE FOURTH UNIVERSAL DEFINITIONS OF MYOCARDIAL INFARCTION. THE UPPER REFERENCE LIMIT (URL) OF TROPONIN, DEFINED THE 99TH PERCENTILE OF cTnI DISTRIBUTION IN A REFERENCE POPULATION, HAS BEEN CONFIRMED THE DECISION THRESHOLD FOR DE DIAGNOSIS. Performed By: #### C MP, HSTROPN #### [facility] [address] [address] [address] Jesus White PROF CHEM 8 (BAS METB)on Anion gap [Moles/Vol] 13.3 mmol/L Normal [facility] Comment on above: Performed By: #### B MP #### [facility] [address] [place] [address] Dr. Jesus White Calcium [Mass/Vol] 9.7 mg/dL Normal 8.5-10.1 [facility] Comment on above: Performed By: #### B MP #### [facility] [address] [place] [address] Dr. Jesus White Chloride [Moles/Vol] 103 mmol/L Normal 98-107 [facility] Comment on above: Performed By: #### B MP #### [facility] [address] [address] [address] Jesus White CO2 [Moles/Vol] 28.4 mmol/L Normal 21.0-32.0 [facility] Comment on above: Performed By: #### B MP #### [facility] [address] [place] [address] Dr. Jesus White Creatinine [Mass/Vol] 1.21 mg/dL Normal 0.70-1.30 [facility] Comment on above: Performed By: #### B MP #### [facility] [address] [place] [address] Dr. Jesus White EGFR-AF YEMENI >60 Normal >=60 [facility] Comment on above: Performed By: #### B MP #### [facility] [address] [address] [address] Jesus White EGFR-NON AF YEMENI 60 mL/min/1.73m2 Normal >=60 [facility] Comment on above: Performed By: #### B MP #### [facility] [address] [address] [address] Jesus White Glucose [Mass/Vol] 95 mg/dL Normal 74-106 [facility] Comment on above: Performed By: #### B MP #### [facility] [address] [address] [address] Jesus Wihte Potassium [Moles/Vol] 3.7 mmol/L Normal 3.5-5.1 [facility] Comment on above: Performed By: #### B MP #### [facility] [address] [address] [address] Jesus White Sodium [Moles/Vol] 141 mmol/L Normal 136-145 [facility] Comment on above: Performed By: #### B MP #### [facility] [address] [address] [address] Jesus White Urea nitrogen [Mass/Vol] 12.0 mg/dL Normal 7.0-18.0 [facility] Comment on above: Performed By: #### B MP #### [facility] [address] [address] [address] Jesus White Urea nitrogen/Creatinine [Mass ratio] 9.9 mg/mg Normal [facility] Comment on above: Performed By: #### B MP #### [facility] [address] [place], [place] [address] Dr. Jesus White ER URINE PROFILEon 2 Bilirubin Ql (U) Negative Normal NEGATIVE [facility] Comment on above: Performed By: #### CALEB GOULD ####[facility] [address] [place], [place] [address]EwDr. Jesus White Clarity (U) CLEAR Normal CLEAR [facility] Comment on above: Performed By: #### E CALEB BARNES ####[facility] [address] [address]Dr. Jesus White Color (U) LT. YELLOW Normal YELLOW [facility] Comment on above: Performed By: #### VALERIO GOULDRO ####[facility] [address] [address]Dr. Carolliseth White ERUAHD A micrscopic examination will be performed if indicated. Normal [facility] Comment on above: Performed By: #### VALERIO GOULDRO ####[facility] [address] [place], [place] [address]Dr. Carolliseth White Glucose Ql (U) Negative Normal NEGATIVE [facility] Comment on above: Performed By: #### VALERIO GOULDRO ####[facility] [address] [place], [place] [address]Dr. Jesus White Hemoglobin Ql (U) Negative Normal NEGATIVE [facility] Comment on above: Performed By: #### VALERIO GOULDRO ####[facility] [address] [place], [place] [address]Dr. Carolliseth White Ketones Ql (U) Negative Normal NEGATIVE [facility] Comment on above: Performed By: #### VALERIO GOULDRO ####[facility] [address] [place], [place] [address]Dr. Carollan White LEUKOCYTES Negative Normal NEGATIVE [facility] Comment on above: Performed By: #### VALERIO GOULDRO ####[facility] [address] [place], [place] [address]Dr. Yilan White Nitrite Ql (U) Negative Normal NEGATIVE [facility] Comment on above: Performed By: #### VALERIO GOULDRO ####[facility] [address] [place], [place] [address]Dr. Carolliseth White pH (U) 6.0 [pH] Normal 5-9 [facility] Comment on above: Performed By: #### VALERIO GOULDRO ####[facility] [address] [place], [place] [address]Dr. Yilan White SPEC GRAVITY <=1.005 Abnormal 1.005-<=1.025 [facility] Comment on above: Performed By: #### VALERIO GOULDRO ####[facility] [address] [address]Dr. Jesus White UA PROTEIN Negative Normal NEGATIVE/ TRACE [facility] Comment on above: Performed By: #### VALERIO GOULDRO ####[facility] [address] [address]Dr. Jesus White UR MICRO IND INDICATED Normal [facility] Comment on above: Performed By: #### VALERIO GOULDRO ####[facility] [address] [address]Dr. Jesus White Urobilinogen Qn (U) 0.2 {Dash'U}/dL Normal 0.2 - 1. 0 [facility] Comment on above: Performed By: #### VALERIO GOULDRO ####[facility] [address] [place], [place] [address]Dr. Jesus White URINE MICROSCOPIC ONLYon BACTERIA NONE SEEN Normal NONE SEEN [facility] Comment on above: Performed By: #### VALERIO GOULDRO ####[facility] [address] [place], [place] [address]Dr. Jesus White Bacteria identified Cx Nom (U) NOT INDICATED Normal [facility] Comment on above: Performed By: #### VALERIO GOULDRO ####[facility] [address] [place], [place] [address]Dr. Jesus White CAST NONE SEEN Normal NONE SEEN [facility] Comment on above: Performed By: #### VALERIO GOULDRO ####[facility] [address] [place], [place] [address]Dr. Jesus White Crystals LM Nom (Urine sed) NONE SEEN Normal NONE SEEN [facility] Comment on above: Performed By: #### VALERIO GOULDRO ####[facility] [address] [place], [place] [address]Dr. Jesus White Epithelial cells LM Ql (Urine sed) RARE Normal NONE SEEN /RARE [facility] Comment on above: Performed By: #### E RUR, UMICRO ####[facility] [address] [id number]. Jesus White MUCOUS NONE SEEN Normal NONE SEEN [facility] Comment on above: Performed By: #### E RUR, UMICRO ####[facility] [address] [id number]. Jesus White RBC NONE SEEN Abnormal 0-2 [facility] Comment on above: Performed By: #### E RUR, UMICRO ####[facility] [address] [id number]. Jesus White WBC NONE SEEN Normal NONE SEEN [facility] Comment on above: Performed By: #### E RUR, UMICRO ####[facility] [address] [id number]. Carolliseth White US CRYSTAL DOP LEG LTon 01-02-20 [...] VARSHA BARNARD Date: 2022-01-01 08:49 Normal [facility] Vital Signs Date Time Vital Sign Value Performing Clinician Facility 06-20-2024 09:31-0500 Body height 177.8 cm Nicolle Rodriguez NP Work Phone: [facility] 06-20-2024 09:31-0500 Body mass index (BMI) [Ratio] 33.58 kg/m2 Nicolle Rodriguez DEPARTMENTAL SHIPPING CLERK Work Phone: [facility] 06-20-2024 09:31-0500 Body temperature 97.7 [degF] Nicolle Rodriguez DEPARTMENTAL SHIPPING CLERK Work Phone: [facility] 06-20-2024 09:31-0500 Body weight 106.14 kg Nicolle Rodriguez DEPARTMENTAL SHIPPING CLERK Work Phone: [facility] 06-20-2024 09:31-0500 Diastolic blood pressure 76 mm[Hg] Nicolle Rodriguez DEPARTMENTAL SHIPPING CLERK Work Phone: [facility] 06-20-2024 09:31-0500 Heart rate 69 /min Nicolle Rodriguez DEPARTMENTAL SHIPPING CLERK Work Phone: [facility] 06-20-2024 09:31-0500 Respiratory rate 18 /min Nicolle Rodriguez DEPARTMENTAL SHIPPING CLERK Work Phone: [facility] 06-20-2024 09:31-0500 SaO2% (BldA) [Mass fraction] 99 % Nicolle Rodriguez DEPARTMENTAL SHIPPING CLERK Work Phone: [facility] 06-20-2024 09:31-0500 Systolic blood pressure 138 mm[Hg] Nicolle Rodriguez DEPARTMENTAL SHIPPING CLERK Work Phone: [facility] 05-22-2024 10:51-0500 Body height 177.8 cm Nicolle Rodriguez DEPARTMENTAL SHIPPING CLERK Work Phone: [facility] 05-22-2024 10:51-0500 Body mass index (BMI) [Ratio] 32.43 kg/m2 Nicolle Rodriguez DEPARTMENTAL SHIPPING CLERK Work Phone: [facility] 05-22-2024 10:51-0500 Body temperature 96.69 [degF] Nicolle Rodriguez DEPARTMENTAL SHIPPING CLERK Work Phone: [facility] 05-22-2024 10:51-0500 Body weight 102.51 kg Nicolle Rodriguez DEPARTMENTAL SHIPPING CLERK Work Phone: [facility] 05-22-2024 10:51-0500 Diastolic blood pressure 78 mm[Hg] Nicolle Rodriguez DEPARTMENTAL SHIPPING CLERK Work Phone: [facility] 05-22-2024 10:51-0500 Heart rate 74 /min Nicolle Rodriguez DEPARTMENTAL SHIPPING CLERK Work Phone: [facility] 05-22-2024 10:51-0500 Respiratory rate 18 /min Nicolle Rodriguez DEPARTMENTAL SHIPPING CLERK Work Phone: [facility] 05-22-2024 10:51-0500 SaO2% (BldA) [Mass fraction] 97 % Nicolle Rodriguez DEPARTMENTAL SHIPPING CLERK Work Phone: [facility] 05-22-2024 10:51-0500 Systolic blood pressure 146 mm[Hg] Nicolle Rodriguez DEPARTMENTAL SHIPPING CLERK Work Phone: [facility] 04-23-2024 14:58-0500 Body height 172.7 cm Nicolle Rodriguez DEPARTMENTAL SHIPPING CLERK Work Phone: [facility] 04-23-2024 14:58-0500 Body mass index (BMI) [Ratio] 35.58 kg/m2 Nicolle Rodriguez DEPARTMENTAL SHIPPING CLERK Work Phone: [facility] 04-23-2024 14:58-0500 Body temperature 97.3 [degF] Nicolle Rodriguez DEPARTMENTAL SHIPPING CLERK Work Phone: [facility] 04-23-2024 14:58-0500 Body weight 106.14 kg Nicolle Rodriguez DEPARTMENTAL SHIPPING CLERK Work Phone: [facility] 04-23-2024 14:58-0500 Diastolic blood pressure 60 mm[Hg] Nicolle Rodriguez DEPARTMENTAL SHIPPING CLERK Work Phone: [facility] 04-23-2024 14:58-0500 Heart rate 62 /min Nicolle Rodriguez DEPARTMENTAL SHIPPING CLERK Work Phone: [facility] 04-23-2024 14:58-0500 Respiratory rate 22 /min Nicolle Rodriguez DEPARTMENTAL SHIPPING CLERK Work Phone: [facility] 04-23-2024 14:58-0500 SaO2% (BldA) [Mass fraction] 97 % Nicolle Rodriguez DEPARTMENTAL SHIPPING CLERK Work Phone: [facility] 04-23-2024 14:58-0500 Systolic blood pressure 130 mm[Hg] Nicolle Rodriguez DEPARTMENTAL SHIPPING CLERK Work Phone: [facility] 03-19-2024 08:59-0400 Body mass index (BMI) [Ratio] 33.06 kg/m2 Nicolle Rodriguez DEPARTMENTAL SHIPPING CLERK Work Phone: [facility] 03-19-2024 08:59-0400 Body temperature 97.3 [degF] Nicolle Rodriguez DEPARTMENTAL SHIPPING CLERK Work Phone: [facility] 03-19-2024 08:59-0400 Body weight 104.51 kg Nicolle Rodriguez DEPARTMENTAL SHIPPING CLERK Work Phone: [facility] 03-19-2024 08:59-0400 Diastolic blood pressure 80 mm[Hg] Nicolle Rodriguez DEPARTMENTAL SHIPPING CLERK Work Phone: [facility] 03-19-2024 08:59-0400 Heart rate 63 /min Nicolle Rodriguez DEPARTMENTAL SHIPPING CLERK Work Phone: [facility] 03-19-2024 08:59-0400 SaO2% (BldA) [Mass fraction] 98 % Nicolle Rordiguez DEPARTMENTAL SHIPPING CLERK Work Phone: [facility] 03-19-2024 08:59-0400 Systolic blood pressure 162 mm[Hg] Nicolle Rodriguez DEPARTMENTAL SHIPPING CLERK Work Phone: [facility] 01-17-2024 08:08-0400 Blood Pressure Location Will GURVINDER [facility] 01-17-2024 08:08-0400 Diastolic blood pressure 84 mm[Hg] Will COOK [facility] 01-17-2024 08:08-0400 Heart rate 62 /min Will COOK [facility] 01-17-2024 08:08-0400 Respiratory rate 19 /min Will COOK [facility] 01-17-2024 08:08-0400 Systolic blood pressure 151 mm[Hg] Will COOK [facility] 10-17-2023 10:02-0400 Blood Pressure Location Will COOK [facility] 10-17-2023 10:02-0400 Diastolic blood pressure 66 mm[Hg] Will COOK [facility] 10-17-2023 10:02-0400 Heart rate 66 /min Will COOK [facility] 10-17-2023 10:02-0400 Respiratory rate 18 /min Will COOK [facility] 10-17-2023 10:02-0400 Systolic blood pressure 120 mm[Hg] Will COOK [facility] 10-13-2023 13:17-0400 Body height 177.8 cm [facility] 10-13-2023 13:17-0400 Body mass index (BMI) [Ratio] 32.5 kg/m2 [facility] 10-13-2023 13:17-0400 Body temperature 97 [degF] [facility] 10-13-2023 13:17040 Body weight 102.96 kg [facility] 10-13-2023 13:17-0400 Diastolic blood pressure 70 mm[Hg] [facility] 10-13-2023 13:17-0400 Heart rate 74 /min [facility] 10-13-2023 13:17-0400 Respiratory rate 20 /min [facility] 10-13-2023 13:17-0400 SaO2% (BldA) [Mass fraction] 97 % [facility] 10-13-2023 13:17-0400 Systolic blood pressure 120 mm[Hg] [facility] 03-17-2023 15:20-0400 Body height 177.8 cm Jose Julien Other [facility] [employer] Other 03-17-2023 15:20-0400 Body mass index (BMI) [Ratio] 31.96 kg/m2 Jose Julien Other [employer] Other 03-17-2023 15:20-0400 Body temperature 96.9 [degF] Jose Julien Other [employer] Other 03-17-2023 15:20-0400 Body weight 101.06 kg Jose Julien Other [employer] Other 03-17-2023 15:20-0400 Diastolic blood pressure 73 mm[Hg] Jose Julien Other [employer] Other 03-17-2023 15:20-0400 Respiratory rate 18 /min Jose Julien Other [employer] Other 03-17-2023 15:20-0400 SaO2% (BldA) [Mass fraction] 98 % Jose Julien Other [employer] Other 03-17-2023 15:20-0400 Systolic blood pressure 134 mm[Hg] Jose Julien Other [employer] Other 09-30-2022 11:20-0400 Body height 177.8 cm Jose Julien Other [employer] Other 09-30-2022 11:20-0400 Body mass index (BMI) [Ratio] 33.6 kg/m2 Jose Julien Other [employer] Other 09-30-2022 11:20-0400 Body temperature 96.3 [degF] Jose Julien Other [employer] Other 09-30-2022 11:20-0400 Body weight 106.23 kg Jose Julien Other [employer] Other 09-30-2022 11:20-0400 Diastolic blood pressure 64 mm[Hg] Jose Julien Other [employer] Other 09-30-2022 11:20-0400 Respiratory rate 18 /min Jose Julien Other [employer] Other 09-30-2022 11:20-0400 SaO2% (BldA) [Mass fraction] 99 % Jose Julien Other [employer] Other 09-30-2022 11:20-0400 Systolic blood pressure 138 mm[Hg] Jose Julien Other [employer] Other 03-22-2022 14:00-0400 Body height 177.8 cm Jose Julien Other [employer] Other 03-22-2022 14:00-0400 Body mass index (BMI) [Ratio] 33.14 kg/m2 Jose Julien Other [employer] Other 03-22-2022 14:00-0400 Body temperature 95.9 [degF] Jose Julien Other [employer] Other 03-22-2022 14:00-0400 Body weight 104.78 kg Jose Julien Other [employer] Other 03-22-2022 14:00-0400 Diastolic blood pressure 70 mm[Hg] Jose Julien Other [employer] Other 03-22-2022 14:00-0400 Respiratory rate 18 /min Jose Julien Other [employer] Other 03-22-2022 14:00-0400 SaO2% (BldA) [Mass fraction] 97 % Jose Julien Other [employer] Other 03-22-2022 14:00-0400 Systolic blood pressure 119 mm[Hg] Jose Julien Other [employer] Other 06-18-2021 11:40-0500 Body height 177.8 cm Jose Julien Other [employer] Other 06-18-2021 11:40-0500 Body mass index (BMI) [Ratio] 37.22 kg/m2 Jose Julien Other [employer] Other 06-18-2021 11:40-0500 Body temperature 95.9 [degF] Jose Julien Other [employer] Other 06-18-2021 11:40-0500 Body weight 117.66 kg Jose Julien Other [employer] Other 06-18-2021 11:40-0500 Diastolic blood pressure 70 mm[Hg] Jose Julien Other [employer] Other 06-18-2021 11:40-0500 Respiratory rate 18 /min Jose Julien Other [employer] Other 06-18-2021 11:40-0500 SaO2% (BldA) [Mass fraction] 97 % Jose Julien Other [employer] Other 06-18-2021 11:40-0500 Systolic blood pressure 124 mm[Hg] Jose Julien Other [employer] Other Encounters Encounter Date Encounter Type Care Provider Facility Start: 07-17-2024 ambulatory Will HOLLINS Facility :[facility] Start: 07-10-2024 End: 07-10-2024 Refill [facility]sen [facility] Comment on above: Centrilobular emphys zoila (CMS/HCC); Viral upper respiratory tract infection; Essential (primary) hypertension (CMS/HCC); Gastroesophageal reflux disease with esophagitis without hemorrhage; Malignant (primary) neoplasm, unspecified (CMS/HCC) Start: 06-20-2024 End: 06-20-2024 Bamboo flowsheet Nicolle Rodriguez DEPARTMENTAL SHIPPING CLERK Work Phone: [facility] Start: 06-20-2024 End: 06-20-2024 Bamboo flowsheet Nicolle Rodriguez DEPARTMENTAL SHIPPING CLERK Work Phone: [facility] Start: 06-20-2024 End: 06-20-2024 Office outpatient visit 15 minutes Nicolle Rodriguez DEPARTMENTAL SHIPPING CLERK Work Phone: [facility] Comment on above: Mixed hyperlipidemia (CMS/HCC) (Primary Dx); Centrilobular emphysema (CMS/HCC); Stage 3a chronic kidney disease (HCC) (CMS/HCC); Primary hypertension (CMS/HCC); Hyperuricemia; Hyperlipidemia, unspecified (CMS/HCC); Viral upper respiratory tract infection; Chronic right heart failure (HCC) (CMS/HCC); Essential (primary) hypertension (CMS/HCC); Gastroesophageal reflux disease with esophagitis without hemorrhage; Malignant (primary) neoplasm, unspecified (CMS/HCC) Start: 06-20-2024 End: 06-20-2024 ambulatory NICOLLE RODRIGUEZ Not Available Start: 05-22-2024 End: 05-22-2024 Bamboo flowsheet Nicolle Rodriguez DEPARTMENTAL SHIPPING CLERK Work Phone: [facility] Start: 05-22-2024 End: 05-22-2024 Bamboo flowsheet Nicolle Rodriguez DEPARTMENTAL SHIPPING CLERK Work Phone: [facility] Start: 05-22-2024 End: 05-22-2024 Transitional care manage srvc 7 day discharge Nicolle Rodriguez DEPARTMENTAL SHIPPING CLERK Work Phone: [facility] Comment on above: Fall, subsequent enc ounter (Primary Dx); Hyperuricemia; Hyperlipidemia, unspecified (CMS/HCC); Centrilobular emphysema (CMS/HCC); Chronic right heart failure (HCC) (CMS/HCC); Malignant (primary) neoplasm, unspecified (CMS/HCC); Compression fracture of C3 vertebra with routine healing, subsequent encounter Start: 05-22-2024 End: 05-22-2024 ambulatory NICOLLE RODRIGUEZ Not Available Start: 05-22-2024 End: 05-22-2024 ambulatory Will HOLLINS Facility:[facility] Start: 05-22-2024 End: 05-22-2024 Patient encounter procedure [facility] Start: 04-23-2024 End: 04-23-2024 Office outpatient visit 15 minutes Nicolle Rodriguez DEPARTMENTAL SHIPPING CLERK Work Phone: [facility] Comment on above: Bronchitis (Primary Dx); Viral upper respiratory tract infection Start: 04-23-2024 End: 04-23-2024 ambulatory NICOLLE RODRIGUEZ Not Available Start: 04-23-2024 End: 04-23-2024 Bamboo flowsheet Nicolle Rodriguez DEPARTMENTAL SHIPPING CLERK Work Phone: [facility] Start: 04-23-2024 End: 04-23-2024 Bamboo flowsheet Nicolle Rodriguez DEPARTMENTAL SHIPPING CLERK Work Phone: [facility] Start: 04-18-2024 End: 04-18-2024 Clinisync Result Encounter Generic External Data Provider [facility] Unsolicited Start: 04-18-2024 End: 04-18-2024 Clinisync Result Encounter Generic External Data Provider [facility] Unsolicited Start: 03-27-2024 End: 03-27-2024 Refill Nicolle Rodriguez DEPARTMENTAL SHIPPING CLERK Work Phone: [facility] Comment on above: Hyperlipidemia, unsp ecified (CMS/HCC); Essential (primary) hypertension (CMS/HCC); Hyperuricemia; Gastroesophageal reflux disease with esophagitis without hemorrhage Start: 03-20-2024 End: 03-20-2024 Orders Only Nicolle Rodriguez DEPARTMENTAL SHIPPING CLERK Work Phone: [facility] Comment on above: Acute bacterial sinu sitis (Primary Dx) Start: 03-19-2024 End: 03-19-2024 Bamboo flowsheet Nicolle Rodriguez DEPARTMENTAL SHIPPING CLERK Work Phone: [facility] Start: 03-19-2024 End: 03-19-2024 Bamboo flowsheet Nicolle Rodriguez DEPARTMENTAL SHIPPING CLERK Work Phone: [facility] Start: 03-19-2024 End: 03-19-2024 Clinisync Result Encounter Nicolle Rodriguez DEPARTMENTAL SHIPPING CLERK Work Phone: [facility] Unsolicited Start: 03-19-2024 End: 03-19-2024 Office outpatient visit 15 minutes Nicolle Rodriguez DEPARTMENTAL SHIPPING CLERK Work Phone: [facility] Comment on above: Viral upper respirat ory tract infection (Primary Dx); Acute right ankle pain; Centrilobular emphysema (CMS/HCC); Ankle injury, right, initial encounter Start: 03-19-2024 End: 03-19-2024 Refill Nicolle Rodriguez DEPARTMENTAL SHIPPING CLERK Work Phone: [facility] Comment on above: Hyperuricemia Start: 01-17-2024 End: 01-17-2024 ambulatory Will HOLLINS Facility:[facility] Start: 01-17-2024 End: 01-17-2024 Patient encounter procedure Will HOLLINS [facility] Start: 11-24-2023 End: 11-24-2023 ambulatory SHAIKH ALMAEmre Not Available Start: 10-17-2023 End: 10-17-2023 ambulatory SHAIKH ALMAD Facility:[facility] Start: 10-17-2023 End: 10-17-2023 Patient encounter procedure Will HOLLINS [facility] Start: 10-13-2023 End: 10-13-2023 ambulatory [facility] Work Phone: Start: 10-13-2023 End: 10-13-2023 Patient encounter procedure [facility] Fred Work Phone: Start: 10-04-2023 Non-patient / Non-visit [facility] Work Phone: Start: 09-28-2023 End: 09-28-2023 ambulatory MICHEL FAWWAD Not Available Start: 08-23-2023 End: 08-23-2023 ambulatory MICHEL FAWWAD Not Available Start: 05-10-2023 Patient encounter procedure Nicolle Rodriguez DEPARTMENTAL SHIPPING CLERK Work Phone: [facility] Start: 03-17-2023 End: 03-17-2023 ambulatory Jose Julien Other [employer] Other Start: 03-17-2023 Office outpatient vi sit 15 minutes Jose Julien [facility] Start: 10-11-2022 End: 10-12-[address] WILL HOLLINS Facility:[facility] Start: 09-30-2022 End: 09-30-2022 ambulatory Jose Julien Other [employer] Other Start: 09-30-2022 Office outpatient vi sit 15 minutes Jose Julien [facility] Start: 08-23-2022 End: 08-24-2022 ambulatory MICHEL H FAWWAD Facility:[facility] Start: 07-05-2022 End: 07-06-2022 ambulatory RUKHSANA SAMSA . Facility:[facility] Start: 04-08-2022 End: 04-08-[address] COLTEN NUNO . Facility:[facility] Start: 03-24-2022 End: 03-25-2022 ambulatory RUKHSANA SAMSA . Facility:[facility] Start: 03-22-2022 End: 03-22-2022 ambulatory Jose Julien Other [employer] [facility] Other Start: 03-22-2022 Office outpatient vi sit 25 minutes Jose Julien [facility] Start: 02-16-2022 End: 02-17-2022 ambulatory MICHEL H FAWWAD Facility:[facility] Start: 01-01-2022 End: 01-01-[address] LUNA DUFFY . Facility:[facility] Start: 06-21-2021 End: 06-21-2021 ambulatory Jose Julien Other [employer] [facility] Other Start: 06-21-2021 Telephone encounter Jose Julien [facility] Start: 06-18-2021 End: 06-18-2021 ambulatory Jose Julien Other [employer] Other Start: 06-18-2021 Office outpatient vi sit 25 minutes Jose Julien [facility] Procedures Date Procedure Procedure Detail Performing Clinician Start: 04-18-2024 MHPT PSA, DIAGNOSTIC Ge neric External Data Provider Start: 03-19-2024 SARS-COV-2 AG* Nicolle Rodriguez DEPARTMENTAL SHIPPING CLERK Work Phone: Start: 03-19-2024 [facility] INFLUENZA A AND B AG Nicolle Rodriguez DEPARTMENTAL SHIPPING CLERK Work Phone: Start: 10-11-[address] WINIFRED HOLLINS Comment on above: Performed By: #### P SAD ####[facility] [id number] [place], [place] [address]Dr. Jesus White Start: 03-24-2011 Brachytherapy Will C JUAREZ Start: 06-06-2000 Excision of left kidney Will HOLLINS Cataract (disorder) Will HOLLINS Extraction of wisdom tooth G kerry HOLLINS History of hernia repair Eri gabriel HOLLINS Plan of Treatment Date Care Activity Detail Author Start: 09-22-2026 Screening for malign ant neoplasm of colon [facility] Start: 09-18-2024 End: 09-18-2024 Patient encounter procedure 09/18/2024 9:30 AM EDT Office Visit [facility] [address] [place] [address] Nicolle Rodriguez NP [address] [place] [address] [facility] Start: 06-20-2024 End: 06-20-2025 CBC W Auto Differential panel - Blood CBC and differential Lab Routine Mixed hyperlipidemia (CMS/HCC) Stage 3a chronic kidney disease (HCC) (CMS/HCC) Primary hypertension (CMS/HCC) Expected: 06/20/2024 (Approximate), Expires: 06/20/2025 [facility] Comment on above: Expected: 06/20/2024 (Approximate), Expires: 06/20/2025 Start: 06-20-2024 End: 06-20-2025 Comprehensive metabolic 2000 panel - Serum or Plasma Comprehensive metabolic panel Lab Routine Mixed hyperlipidemia (CMS/HCC) Stage 3a chronic kidney disease (HCC) (CMS/HCC) Primary hypertension (CMS/HCC) Expected: 06/20/2024 (Approximate), Expires: 06/20/2025 [facility] Comment on above: Expected: 06/20/2024 (Approximate), Expires: 06/20/2025 Start: 06-20-2024 End: 06-20-2025 Lipid 1996 panel - Serum or Plasma Lipid panel Lab Routine Mixed hyperlipidemia (CMS/HCC) Expected: 06/20/2024 (Approximate), Expires: 06/20/2025 [facility] Work Phone: Comment on above: Expected: 06/20/2024 (Approximate), Expires: 06/20/2025 Start: 06-20-2024 End: 06-20-2024 Patient encounter procedure 06/20/2024 9:30 AM EST [facility] [address] [place] [address] Nicolle Rodriguez, NIC [address] [place] [phone] [facility] Comment on above: Arrived Start: 06-19-2024 End: 06-19-2024 Patient encounter procedure 06/19/2024 9:30 AM EST Office Visit [facility] [address] [place] [phone] Nicolle Rodriguez, DEPARTMENTAL SHIPPING CLERK [address] [place] [address] [facility] Start: 05-22-2024 End: 05-22-2024 Patient encounter procedure 05/22/2024 11:00 AM EST [facility] [address] [place] [address] Nicolle Rodriguez, DEPARTMENTAL SHIPPING CLERK [address] [place] [phone] Arrived [facility] Comment on above: Arrived Start: 05-10-2024 Medicare Annual Wellness (AWV) Medicare Annual Wellness (AWV) [facility] Start: 04-23-2024 End: 04-23-2024 Patient encounter procedure 04/23/2024 3:00 PM EST Office Visit [facility] [address] [place] [address] Nicolle Rodriguez, DEPARTMENTAL SHIPPING CLERK [address] [place] [address] Arrived [facility] Comment on above: Arrived Start: 03-19-2024 End: 03-19-2025 COVID-19 / FLU A/B / RSV PCR ([facility] COVID-19 / FLU A/B / RSV PCR ([facility] Lab Routine Viral upper respiratory tract infection Expected: 03/19/2024 (Approximate), Expires: 03/19/2025 [facility] Work Phone: Comment on above: Expected: 03/19/2024 (Approximate), Expires: 03/19/2025 Start: 03-19-2024 End: 03-19-2024 Patient encounter procedure 03/19/2024 9:00 AM EDT Office Visit [facility] [address] [place] [phone] Nicolle Rodriguez, NIC [address] [facility] [place] [address] Arrived [facility] Comment on above: Arrived Start: 02-05-2024 Influenza vaccination Influenza Vacc ine (#1) [facility] Start: 02-21-1961 Pneumococcal Vaccine : 65+ Years (1 of 2 - PCV) Pneumococcal Vaccine: 65+ Years (1 of 2 - PCV) [facility] Start: 1955 Screening for malign ant neoplasm of colon [facility] Microalbumin/Creatin ine panel in random Urine Microalbumin / creatinine urine ratio Lab Routine Primary hypertension (CMS/HCC) Ordered: 06/20/2024 [facility] Comment on above: Ordered: 06/20/2024 Renal function 2000 panel - Serum or Plasma [facility] XR Ankle - right 3 Views XR ankle 3+ views right Imaging Routine Acute right ankle pain Ordered: 03/19/2024 [facility] Comment on above: Ordered: 03/19/2024 [facility] Immunizations Immunization Date Immunization Notes Care Provider [facility] 03-17-2023 influenza virus vaccine, unspecified formulation Will HOLLINS [facility] 03-17-2023 Influenza, High-dose Seasonal, Quadrivalent, Preservative Free Nicolle Rodriguez DEPARTMENTAL SHIPPING CLERK Work Phone: [facility] 03-27-2022 influenza virus vaccine, unspecified formulation Will HOLLINS [facility] 03-27-2022 Influenza, High-dose Seasonal, Quadrivalent, Preservative Free Nicolle Rodriguez DEPARTMENTAL SHIPPING CLERK Work Phone: [facility] 05-27-2021 SARS-CoV-2 (COVID-19 ) mRNA-1273 vaccine Will HOLLINS [facility] Comment on above: Result Comment: vincent pérez 03-26-2021 influenza virus vaccine, unspecified formulation Will HOLLINS [facility] 03-26-2021 Influenza, High-dose Seasonal, Quadrivalent, Preservative Free Nicolle Rodriguez DEPARTMENTAL SHIPPING CLERK Work Phone: [facility] 11-21-2020 SARS-CoV-2 (COVID-19 ) mRNA-1273 vaccine Will HOLLINS [facility] 10-16-2020 SARS-CoV-2 (COVID-19 ) mRNA-1273 vaccine Will HOLLINS [facility] 02-05-2020 influenza virus vaccine, unspecified formulation Will HOLLINS [facility] 05-14-2014 influenza virus vaccine, unspecified formulation Will HOLLINS [facility] 05-14-2014 influenza, seasonal, injectable Nicolle Rodriguez DEPARTMENTAL SHIPPING CLERK Work Phone: [facility] Healthcare Payers Date Payer Category Payer Medicaid [id number] 2012 Medicaid [place] Advantage [id number] 1959 Medicare [id number] 1956 Unknown [id number] [id number]3 1956 Unknown [id number] 2.16.840.1.023153.3.579.2.593 1956 Unknown [id number] 2.16.840.1.821819.3.579.2.593 1956 Unknown [id number] 2.16.840.1.794501.3.579.2.593 1956 Unknown [id number] 2.16.840.1.267010.3.579.2.593 1956 Unknown [id number] 2.16.840.1.447578.3.579.2.593 1956 Unknown [id number] 2.16.840.1.629886.3.579.2.593 1956 Unknown [id number] 2.16.840.1.948958.3.579.2.593 1956 Unknown [id number] 2.16.840.1.463863.3.579.2.727 1956 Unknown [id number] 2.16.840.1.500901.3.579.2.727 1956 Unknown [id number] 2.16.840.1.137513.3.579.2.727 1956 Unknown [id number] 2.16.840.1.704110.3.579.2.727 1956 Unknown [id number] 2.16.840.1.178800.3.579.2.1259 1956 Unknown [id number] 2.16.840.1.657171.3.579.2.1259 1956 Unknown [id number] 2.16.840.1.146057.3.579.2.1259 1956 Unknown [id number] 2.16.840.1.060889.3.579.2.1259 1956 Unknown [id number] 2.16.840.1.992503.3.579.2.1259 1956 Unknown [id number] 2.16.840.1.369231.3.579.2.1259 1956 Unknown [id number] 2.16.840.1.798277.3.579.2.1259 Medicaid [employer] [id number] Self-pay Self Pay [id number] Unknown [employer] Just [employer] GHAZALA [id number] Social History Date Type Detail Facility Unknown if ever smoked [employer] [facility] Other Start: 05-10-2023 End: 11-24-2023 Sex Assigned At [facility] Start: 10-13-2023 Tobacco smoking stat [facility] Smoker (finding) [facility] Start: 1955 Sex Assigned At Male [facility] Start: 10-17-2023 End: 01-17-2024 Tobacco smoking status Light tobacco smoker (finding) [facility] Tobacco smoking status Never [facility] Start: 11-24-2023 Tobacco smoking stat [facility] Smokes tobacco daily [facility] History of tobacco use Cigarette Smoker [facility] Start: 05-10-2023 End: 11-24-2023 Cigarettes smoked current (pack per day) - Reported 1 [facility] History of tobacco use Passive smoker [facility] Start: 11-24-2023 Tobacco use and exposure Smokeless tobacco non-user [facility] Start: 11-24-2023 End: 06-20-2024 Alcoholic beverage intake Current drinker of alcohol [...] - these days [OSQ] To some extent [facility] Healthcare (I/We) worried wheth er (my/our) food would run out before (I/we) got money to buy more. Never true [facility] Start: 05-06-2023 Alcohol Comment caffene: 1-2 c ups per day [facility] Start: 1955 Sex assigned at Not on file N [facility] Functional Status Date Assessment Result Facility 01-17-2024 Functional Status N/A [facility] 10-17-2023 Functional Status N/A [facility] Clinical Notes 06-18-2021 to 07-10-2024 Telephone Encounter - Peggy Jacobsen MA - 07/10/2024 10:13 AM ESTTelephone Encounter - Peggy Jacobsen MA - 07/10/2024 10:13 AM Chai Rodriguez NP - 06/20/2024 9:49 AM ESTPatient Instructions Note Date & Type Note Facility 07-10-2024 Miscellaneous Notes ROBYN:06/20/2024 NOV:09/18/2024 documented in this encounter [facility] 07-10-2024 Telephone encounter Note ROBYN:06/20/2024 NOV:09/18/2024 [facility] 06-20-2024 History of Presen t illness Narrative Associated Problem(s): 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 Rojas. Has had multiple hospitalizations this year due to exacerbations. Is still a current 0.5ppd smoker. Currently taking Symbicort Atrovent Albuterol. Continue current regimen as directed by pulmonology. Associated Problem(s): Dyslipidemia (CMS/HCC) Currently taking atorvastatin 40mg Denies any myalgias. Continue current regimen. Associated Problem(s): Primary hypertension (CMS/HCC) Currently taking Losartan 50mg Furosemide 20mg Metoprolol 25mg BID Checks BP at home; Averages are Denies orthostatic changes, dizziness, cough, shortness of breath, swelling in extremities. Continue current regimen. Given BP log, advised pt to record BP and bring log back with them to next visit. Images from the original note were not included. Subjective Patient ID: Marco Mustafa is a 69 y.o. male who presents for Follow-up. HPI HTN: Currently taking Losartan 50mg Furosemide 20mg Metoprolol 25mg BID Checks BP at home; Averages are Denies orthostatic changes, dizziness, cough, shortness of breath, swelling in extremities. Continue current regimen. Given BP log, advised pt to record BP and bring log back with them to next visit. HLD: Currently taking atorvastatin 40mg Denies any myalgias. Continue current regimen. MATILDA: Follows closely with Dr. Rojas. Has had multiple hospitalizations this year due to exacerbations. Is still a current 0.5ppd smoker. Currently taking Symbicort Atrovent Albuterol. Continue current regimen as directed by pulmonology. Review of Systems Constitutional: Negative for activity change, appetite change, chills, diaphoresis, fatigue, fever and unexpected weight change. HENT: Negative for congestion, ear pain, rhinorrhea, sinus pressure, sinus pain, sneezing, sore throat, trouble swallowing and [...] Vitals reviewed. Constitutional: Appearance: Normal appearance. HENT: Right Ear: Tympanic membrane normal. Left Ear: [...] sounds are normal. Palpations: Abdomen is soft. Skin: Capillary Refill: Capillary refill takes less than 2 seconds. Neurological: Mental Status: He is alert and oriented to person, place, and time. 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 Rojas. Has had multiple hospitalizations this year due to exacerbations. Is still a current 0.5ppd smoker. Currently taking Symbicort Atrovent Albuterol. Continue current regimen as directed by pulmonology. Relevant Medications albuterol HFA 90 mcg/act inhaler budesonide-formoterol (Symbicort) 160-4.5 MCG/ACT inhaler Mixed hyperlipidemia (CMS/HCC) - Primary Relevant Orders Lipid panel Comprehensive metabolic panel CBC and differential Primary hypertension (CMS/HCC) Currently taking Losartan 50mg Furosemide 20mg Metoprolol 25mg BID Checks BP at home; Averages are Denies orthostatic changes, dizziness, cough, shortness of breath, swelling in extremities. Continue current regimen. Given BP log, advised pt to record BP and bring log back with them to next visit. Relevant Orders Microalbumin / creatinine urine ratio Comprehensive metabolic panel CBC and differential URI (upper respiratory infection) Relevant Medications fluticasone (Flonase) 50 MCG/ACT nasal spray Chronic kidney disease, stage 3 unspecified (HCC) (CMS/HCC) Relevant Orders Comprehensive metabolic panel CBC and differential Other Visit Diagnoses Hyperuricemia Relevant Medications allopurinol (Zyloprim) 100 MG tablet Hyperlipidemia, unspecified (CMS/HCC) Relevant Medications atorvastatin (Lipitor) 40 MG tablet Other Relevant Orders Lipid panel Comprehensive metabolic panel CBC and differential Chronic right heart failure (HCC) (CMS/HCC) Relevant Medications furosemide (Lasix) 20 MG tablet Essential (primary) hypertension (CMS/HCC) Relevant Medications losartan (Cozaar) 50 MG tablet metoprolol tartrate (Lopressor) 25 MG tablet Gastroesophageal reflux disease with esophagitis without hemorrhage Relevant Medications omeprazole (PriLOSEC) [address] capsule Malignant (primary) neoplasm, unspecified (CMS/HCC) Relevant Medications tamsulosin (Flomax) 0.4 MG 24 hr capsule documented in this encounter [facility] 05-22-2024 History of Presen t illness Narrative Associated Problem(s): Compression fracture of C3 vertebra (HCC) (CMS/HCC) Was seen again in ED and admitted overnight on 05/16/2024-05/17/2024 for for head contusion. Had ETOH level of 200 on admission. Pt reports he had tripped and fallen over dog. CT showed CT compression fracture. Pt declines referrals or further imaging at this time. Advised pt severe pain, numbness, tingling, headaches, loss of bowel or bladder function GO TO ER! Pt verbalized understanding. His Evon Mustafa is being admitted to Hospice tomorrow for metastatic bladder cancer. Pt reports he is not drinking everyday since fall and has cut back to 3-4 shots per week. Mr. Gomez states he will be discussing with them starting therapy or support services. I advised pt if they are unable to provide these services to him,, to please call the office and I will gladly send a referral over. Associated Problem(s): Fall Was seen again in ED and admitted overnight on 05/16/2024-05/17/2024 for for head contusion. Had ETOH level of 200 on admission. Pt reports he had tripped and fallen over dog. CT showed CT compression fracture. Pt declines referrals or further imaging at this time. Advised pt severe pain, numbness, tingling, headaches, loss of bowel or bladder function GO TO ER! Pt verbalized understanding. His Evon Mustafa is being admitted to Hospice tomorrow for metastatic bladder cancer. Pt reports he is not drinking everyday since fall and has cut back to 3-4 shots per week. Mr. Gomez states he will be discussing with them starting therapy or support services. I advised pt if they are unable to provide these services to him,, to please call the office and I will gladly send a referral over Associated Problem(s): COPD (chronic obstructive pulmonary disease) with emphysema ([facility]) Was admitted at [facility] on 05/08 for COPD exacerbation. Was discharged on 05/09/2024. Was treated with Levaquin 750mg And prednisone. Is still smoking 0.5ppd outside. Has not followed up with Membership Sales Representative-Dr. Rojas since discharge. States he feekls he has improved. Denies shortness of breath at rest. Admits occasional shortness of breath with exertion Using rescue inhaler once every other day, sometimes once per day. Sputum production has decreased. Advised pt to schedule follow appt with Pulmonology as well. Subjective Patient ID: Marco Mustafa is a 69 y.o. male who presents for Hospital Follow-up. HPI Was admitted at [facility] on 05/08 for COPD exacerbation. Was discharged on 05/09/2024. Was treated with Levaquin 750mg And prednisone. Is still smoking 0.5ppd outside. Has not followed up with Membership Sales Representative-Dr. Rojas since discharge. States he feekls he has improved. Denies shortness of breath at rest. Admits occasional shortness of breath with exertion Using rescue inhaler once every other day, sometimes once per day. Sputum production has decreased. Was seen again in ED and admitted overnight on 05/16/2024-05/17/2024 for for head contusion. Had ETOH level of 200 on admission. Pt reports he had tripped and fallen over dog. CT showed CT compression fracture. Pt declines referrals or further imaging at this time. Advised pt severe pain, numbness, tingling, headaches, loss of bowel or bladder function GO TO ER! Pt verbalized understanding. His Evon Mustafa is being admitted to Hospice tomorrow for metastatic bladder cancer. Pt reports he is not drinking everyday since fall and has cut back to 3-4 shots per week. Mr. Gomez states he will be discussing with them starting therapy or support services. I advised pt if they are unable to provide these services to him,, to please call the office and I will gladly send a referral over. Review of Systems Constitutional: Negative for activity change, appetite change, chills, diaphoresis, fatigue, fever and unexpected weight change. HENT: Negative for congestion, ear pain, rhinorrhea, sinus pressure, sinus pain, sneezing, sore throat, trouble swallowing and [...] Vitals reviewed. Constitutional: Appearance: Normal appearance. HENT: Right Ear: Tympanic membrane normal. Left Ear: Tympanic membrane normal. Nose: Nose normal. Mouth/Throat: Mouth: Mucous membranes are moist. Pharynx: Oropharynx is clear. Eyes: Pupils: Pupils are equal, round, and reactive to light. Cardiovascular: Rate and Rhythm: Normal rate and regular rhythm. Pulses: Normal pulses. Heart sounds: Normal heart sounds. Pulmonary: Effort: Pulmonary effort is normal. Breath sounds: Rhonchi present. Abdominal: General: Abdomen is flat. Bowel sounds are normal. Palpations: Abdomen is soft. Musculoskeletal: General: Normal range of motion. Skin: General: Skin is warm and dry. Capillary Refill: Capillary refill takes less than 2 seconds. Neurological: Mental Status: He is alert and oriented to person, place, and time. Assessment/Plan Problem List Items Addressed This Visit COPD (chronic obstructive pulmonary disease) with emphysema ([facility]) Was admitted at [facility] on 05/08 for COPD exacerbation. Was discharged on 05/09/2024. Was treated with Levaquin 750mg And prednisone. Is still smoking 0.5ppd outside. Has not followed up with Membership Sales Representative-Dr. Rojas since discharge. States he feekls he has improved. Denies shortness of breath at rest. Admits occasional shortness of breath with exertion Using rescue inhaler once every other day, sometimes once per day. Sputum production has decreased. Advised pt to schedule follow appt with Pulmonology as well. Relevant Medications budesonide-formoterol (Symbicort) 160-4.5 MCG/ACT inhaler ipratropium (Atrovent HFA) 17 MCG/ACT inhaler Fall - Primary Was seen again in ED and admitted overnight on 05/16/2024-05/17/2024 for for head contusion. Had ETOH level of 200 on admission. Pt reports he had tripped and fallen over dog. CT showed CT compression fracture. Pt declines referrals or further imaging at this time. Advised pt severe pain, numbness, tingling, headaches, loss of bowel or bladder function GO TO ER! Pt verbalized understanding. His Evon Mustafa is being admitted to Hospice tomorrow for metastatic bladder cancer. Pt reports he is not drinking everyday since fall and has cut back to 3-4 shots per week. Mr. Gomez states he will be discussing with them starting therapy or support services. I advised pt if they are unable to provide these services to him,, to please call the office and I will gladly send a referral over Compression fracture of C3 vertebra (HCC) (CMS/HCC) Was seen again in ED and admitted overnight on 05/16/2024-05/17/2024 for for head contusion. Had ETOH level of 200 on admission. Pt reports he had tripped and fallen over dog. CT showed CT compression fracture. Pt declines referrals or further imaging at this time. Advised pt severe pain, numbness, tingling, headaches, loss of bowel or bladder function GO TO ER! Pt verbalized understanding. His Evon Mustafa is being admitted to Hospice tomorrow for metastatic bladder cancer. Pt reports he is not drinking everyday since fall and has cut back to 3-4 shots per week. Mr. Gomez states he will be discussing with them starting therapy or support services. I advised pt if they are unable to provide these services to him,, to please call the office and I will gladly send a referral over. Other Visit Diagnoses Hyperuricemia Relevant Medications allopurinol (Zyloprim) 100 MG tablet Hyperlipidemia, unspecified (CMS/HCC) Relevant Medications atorvastatin (Lipitor) 40 MG tablet Chronic right heart failure (HCC) (CMS/HCC) Relevant Medications furosemide (Lasix) 20 MG tablet Malignant (primary) neoplasm, unspecified (CMS/HCC) Relevant Medications tamsulosin (Flomax) 0.4 MG 24 hr capsule documented in this encounter [facility] 05-22-2024 Instructions Nicolle Rodriguez NP - 05/22/2024 11:00 AM EST Please follow up with Dr. Bob ramires! Severe pain, numbness, tingling, headaches, loss of bowel or bladder function GO TO ER! Shortness of breath, wheezing, chest pain GO TO ER! documented in this encounter [facility] 04-24-2024 History of Presen t illness Narrative [...] 69 y.o. male who presents for Follow-up ([facility] er f/up URI). HPI Was seen in [...] 20 MG tablet documented in this encounter [facility] 04-23-2024 Instructions Nicolle Rodriguez NP - [...] NEAREST EMERGENCY DEPARTMENT. documented in this encounter [facility] 03-19-2024 History of Presen t illness [...] (Injury 2 weeks ago with ankle ). [facility] Pulmonology- Dr. Rojas Cardiology- Dr. Hicksr Urology- Dr. Hollins Sinus congestion Runny nose [...] COPD (chronic obstructive pulmonary disease) with emphysema ([facility]) URI (upper respiratory infection) - Primary Sinus congestion, runny nose, body aches X10 days. Discussed likely viral etiology. Ordered COVID/Flu/RSV panel. Recommended rest, fluids, OTC management for now. Relevant Orders COVID-19 / FLU A/B / RSV PCR ([facility]) Ankle injury, right, initial encounter Rolled ankle;e 2 weeks ago. Did not receive tx or imaging. Reports swelling and tenderness still Is able to bear weight and ambulate, but does report associated pain. Selling noted on observation. No discoloration observed. Xray ankle ordered. Other Visit Diagnoses Acute right ankle pain Relevant Orders XR ankle 3+ views right documented in this encounter [facility] 03-19-2024 Instructions Nicolle Rodriguez NP - [...] NEAREST EMERGENCY DEPARTMENT. documented in this encounter [facility] 01-17-2024 [facility] Discharg e instructions Patient Education 01/17/2024 [...] if anything looks unusual. Men with a nwhnhf-ohta-euvege risk for skin cancer may want to see a motor tune up specialist (edge finisher) for an annual body check. What are the benefits of screening? Cancer screening is done to look for cancer in the very early stages, before it spreads and becomes harder to treat and before you would start to notice symptoms. Finding cancer early improves the chances of successful treatment. It may save your life. Where to find more information [place] [employer]: www.cancer.org Centers for Disease Control and Prevention: www.cdc.gov National Cancer [employer]: www.cancer.gov Contact a health care provider if: [...] provider. Document Revised: 10/19/2021 Document Reviewed: 04/18/2020 [employer] Patient Education 2022 [employer]. Follow Up Care 10/17/2023 10:47:32 With:GURVINDER HENDRICKSON, Will Day, URL Address: [address] [place] [address] [place] [address]- When: Unknown [facility] 01-17-2024 Note Patient Education Oncology [...] if anything looks unusual. Men with a ccxsbc-jqxf-spgzot risk for skin cancer may want to see a motor tune up specialist (edge finisher) for an annual body check. What are the benefits of screening? Cancer screening is done to look for cancer in the very early stages, before it spreads and becomes harder to treat and before you would start to notice symptoms. Finding cancer early improves the chances of success (more content not included)... [facility] 10-17-2023 Hospital Discharg e instructions Patient Education [...] under a microscope. This is called the [place] score and the total score can range from 6 10, indicating how likely it is that the cancer will spread (metastasize) to other parts of the body. The higher the score, the greater the likelihood that the cancer will spread. Primitivo 6 or lower: This indicates that the cancer cells look similar to normal prostate cells (well differentiated). [place] 7: This indicates that the cancer cells [...] stress of having cancer. General instructions Take tzdn-npb-kkpnjpz and prescription medicines only as told by your health care provider. If you have to go to the hospital, notify your cancer specialist (oncologist). Keep all follow-up visits. This is important. Where to find more information [place] [employer]: www.cancer.org [place] Society of Clinical Oncology: www.cancer.net National Cancer [place]: www.cancer.gov Contact a health care provider if: [...] provider. Document Revised: 08/19/2021 Document Reviewed: 08/19/2021 [employer] Patient Education 2022 [employer]. Follow Up Care 10/15/2022 10:10:00 With:GURVINDER HENDRICKSON, Will Day, URL Address: [facility] [place] [address]- When: Unknown [facility] 03-17-2023 Evaluation note Encounter Date Diagnosis Assessment [...] Monitor LFTs and lipid profile with PCP. [employer] Other 04-27-2023 Evaluation note* Encounter Date Diagnosis [...] have gout. I have prescribed oral Allopurinol [employer] Other 10-17-2022 Evaluation note* Encounter Date Diagnosis [...] have gout. I have prescribed oral Allopurinol [employer] Other 07-29-2022 NotePROCEDURE: XR FEMUR LT HISTORY: [...] Electronically authenticated by: LUCAS GOLDSTEIN Date: 2022-01-01 08:35[facility]01-13-2022 Evaluation note* Encounter Date Diagnosis Assessment [...] Q60.0) He has a solitary right kidney. [employer] Other Evaluation + Plan note Future Appointments Appointment Date:01/16/2024 09:45:00 AM Scheduled Provider:Will HOLLINS MD [facility] Appointment Type:URO Office Visit Diagnostic Tests Pending * PSA Total 11/05/23 [facility] evaluation + Plan note Future Appointments Appointment Date:05/22/2024 09:30:00 AM Scheduled Provider:Will HOLLINS MD Location:[facility] Appointment Type:URO Office Visit Diagnostic Tests Pending * PSA Total 01/17/24 [facility] Evaluation + Plan note Future Appointments Appointment Date:07/17/2024 08:30:00 AM Scheduled Provider:Will HOLLINS MD Location:[facility] Appointment Type:URO Office Visit [facility] evaluation noteNo Noovo Other evaluation note* Diagnosis Onset Date Resolution Status Anemia of renal disease acut e CKD (chronic kidney disease) stage 3, GFR 30-59 ml/min acute Hyperlipidemia acute [id number] acute Hyperuricemia acute Hypomagnesemia acute Secondary hyperparathyroidism acute Solitary kidney, acquired ac crystal [facility] Work Phone: evaluation note* Diagnosis Primary hypertension (CMS/HCC)- Primary Unspecified [...] esophagitis without hemorrhage [facility] [...] of unspecified site documented [facility] [...] Acute upper respiratory infections of unspecified site Fall, subsequent encounter- Primary Hyperuricemia Other abnormal blood chemistry Hyperlipidemia, unspecified (CMS/HCC) Centrilobular emphysema (CMS/HCC) Chronic right heart failure (HCC) (CMS/HCC) Malignant (primary) neoplasm, unspecified (CMS/HCC) Compression fracture of C3 vertebra with routine healing, subsequent encounter [facility] Acute upper respiratory infections of unspecified site Fall, subsequent encounter- Primary Hyperuricemia Other abnormal blood chemistry Hyperlipidemia, unspecified (CMS/HCC) Centrilobular emphysema (CMS/HCC) Chronic right heart failure (HCC) (CMS/HCC) Malignant (primary) neoplasm, unspecified (CMS/HCC) Compression fracture of C3 vertebra with routine healing, subsequent encounter Mixed hyperlipidemia (CMS/HCC)- Primary Mixed hyperlipidemia Centrilobular emphysema (CMS/HCC) Stage 3a chronic kidney disease (HCC) (CMS/HCC) Primary hypertension (CMS/HCC) Unspecified essential hypertension Hyperuricemia Other abnormal blood chemistry Hyperlipidemia, unspecified (CMS/HCC) Viral upper respiratory tract infection Acute upper respiratory infections of unspecified site Chronic right heart failure (HCC) (CMS/HCC) Essential (primary) hypertension (CMS/HCC) Unspecified essential hypertension Gastroesophageal reflux disease with esophagitis without hemorrhage Malignant (primary) neoplasm, unspecified (CMS/HCC) documented in this encounter [facility]* Diagnosis Primary hypertension (CMS/HCC)- Primary [...] Acute upper respiratory infections of unspecified site Fall, subsequent encounter- Primary Hyperuricemia Other abnormal blood chemistry Hyperlipidemia, unspecified (CMS/HCC) Centrilobular emphysema (CMS/HCC) Chronic right heart failure (HCC) (CMS/HCC) Malignant (primary) neoplasm, unspecified (CMS/HCC) Compression fracture of C3 vertebra with routine healing, subsequent encounter Mixed hyperlipidemia (CMS/HCC)- Primary Mixed hyperlipidemia Centrilobular emphysema (CMS/HCC) Stage 3a chronic kidney disease (HCC) (CMS/HCC) Primary hypertension (CMS/HCC) Unspecified essential hypertension Hyperuricemia Other abnormal blood chemistry Hyperlipidemia, unspecified (CMS/HCC) Viral upper respiratory tract infection Acute upper respiratory infections of unspecified site Chronic right heart failure (HCC) (CMS/HCC) Essential (primary) hypertension (CMS/HCC) Unspecified essential hypertension Gastroesophageal reflux disease with esophagitis without hemorrhage Malignant (primary) neoplasm, unspecified (CMS/HCC) Centrilobular emphysema (CMS/HCC) Viral upper respiratory tract infection Acute upper respiratory infections of unspecified site Essential (primary) hypertension (CMS/HCC) Unspecified essential hypertension Gastroesophageal reflux disease with esophagitis without hemorrhage Malignant (primary) neoplasm, unspecified (CMS/HCC) [facility] Narrative - ReportedNort [email or web address] Other Hispuzd general Narrative - Reported* Type Description Date [...] BLOOD PRESSURE WAS 60/40 , DEHYDRATION 04/2021 [employer] Other [place] general Narrative - Reported* Type Description Date [...] BLOOD PRESSURE WAS 60/40 , DEHYDRATION 04/2021 [employer] Other Hiszeri general Narrative - Reported* Type Description Date [...] BLOOD PRESSURE WAS 60/40 , DEHYDRATION 04/2021 [employer] Other Hospital course Narrative No data available for this section [facility] Hospital Discharge instructions No data available for this section [facility] Progress note No data available for this section [facility] [employer] Summary Purpose Family History Relationship Condition Age [...] disease) stage 3, GFR 30-59 ml/min Hyperlipidemia [id number] Hyperuricemia Hypomagnesemia Secondary hyperparathyroidism Solitary kidney, acquired Additional Source Comments REASON FOR VISIT (unrecogniz ed section and content) Reason Onset Date Comments Med Refill 07/10/2024 Reason Comments Hospital Follow-up Reason Comments Follow-up [facility] er f/up URI Reason Onset Date Comments Med Refill 03/27/2024 Reason Onset Date Comments Med Refill 03/19/2024 Reason Comments Nasal Congestion Ankle Pain Injury 2 weeks ago w ith ankle CKD and HTNCKD (unrecognized sect ion and content) No Status Records FoundNo Status Records FoundNo Status Records Found INFORMATION SOURCE (unrecogn ized section and content) DATE CREATED AUTHOR 11/12/2022 [facility] DATE CREATED AUTHOR AUTHOR'S ORGANIZ ATION 05/24/2024 [facility] DATE CREATED AUTHOR AUTHOR'S ORGANIZ ATION 06/23/2024 [facility] EPIC Care Teams (unrecognized sec [...] October 13, 2023 End: October 13, 2023 Division Operations Specialist Relationship Specialty Start Date End Date Shaikh Gagnon MD [address] [place] [phone] PCP - Aet 06/06/23 Rm Rainey MD [address] [place] [phone] PCP - General Family Medicine 01/16/24 Nicolle Rodriguez NP [address] [place] [phone] Nurse Practitioner Family Medicine 01/16/24 Division Operations Specialist Relationship Specialty Start Date End Date Shaikh Gagnon MD [address] [place] [phone] PCP - Aet 06/06/23 Rm Rainey MD [address] [place] [phone] PCP - General Family Medicine 01/16/24 Nicolle Rodriguez NP [address] [phone] Nurse Practitioner Family Medicine 01/16/24 Division Operations Specialist Relationship Specialty Start Date End Date Shaikh Gagnon MD [address] [place] [phone] PCP - [employer] 06/06/23 Rm Rainey MD [address] [place] [phone] PCP - General Family Medicine 01/16/24 Nicolle Rodriguez NP [address] [place] [phone] Nurse Practitioner Family Medicine 01/16/24 Division Operations Specialist Relationship Specialty Start Date End Date Shaikh Gagnon MD [address] [place] [phone] PCP - [employer] 06/06/23 Rm Rainey MD [address] [place] [phone] PCP - General Family Medicine 01/16/24 Nicolle Rodriguez NP [address] [place] [address] Nurse Practitioner Family Medicine 01/16/24 Division Operations Specialist Relationship Specialty Start Date End Date Shaikh Gagnon MD [address] [place] [phone] PCP - [employer] 06/06/23 Rm Rainey MD [address] [place] [phone] PCP - General Family Medicine 01/16/24 Nicolle Rodriguez NP [address] [place] [address] Nurse Practitioner Family Medicine 01/16/24 Division Operations Specialist Relationship Specialty Start Date End Date Shaikh Gagnon MD [address] [place] [phone] PCP - [employer] 06/06/23 Unallocated, Jyoti Pink MD [address] [place] [place] [address] PCP - General Family Medicine 03/20/24 Nicolle Rodriguez NP [address] [place] [address] Nurse Practitioner Family Medicine 01/16/24 Division Operations Specialist Relationship Specialty Start Date End Date Shaikh Gagnon MD [address] [place] [phone] PCP - [employer] 06/06/23 Rm Rainey MD [address] [place] [phone] PCP - General Family Medicine 04/05/24 Nicolle Rodriguez NP [address] [place] [address] Nurse Practitioner Family Medicine 01/16/24 Division Operations Specialist Relationship Specialty Start Date End Date Fawwad, Michel, MD [address] [place] [phone] PCP - [employer] 06/06/23 Rm Rainey MD [address] [place] [phone] PCP - General Family Medicine 04/05/24 Nicolle Rodriguez DEPARTMENTAL SHIPPING CLERK [address] [place] [address] Nurse Practitioner Family Medicine 01/16/24 Division Operations Specialist Relationship Specialty Start Date End Date Shaikh Gagnon MD [address] [place] [phone] PCP - [employer] 06/06/23 Rm Rainey MD [address] [place] [phone] PCP - General Family Medicine 04/05/24 Nicolle Rodriguez, DEPARTMENTAL SHIPPING CLERK [address] [place] [address] Nurse Practitioner Family Medicine 01/16/24 Division Operations Specialist Relationship Specialty Start Date End Date Shaikh Gagnon MD [address] [place] [phone] PCP - [employer] 06/06/23 Rm Rainey MD [address] [place] [phone] PCP - General Family Medicine 04/05/24 Nicolle Rodriguez NP [address] [place] [address] Nurse Practitioner Family Medicine 01/16/24 Division Operations Specialist Relationship Specialty Start Date End Date Shaikh Gagnon MD [address] [place] [phone] PCP - [employer] 06/06/23 Rm Rainey MD [address] [place] [phone] PCP - General Family Medicine 04/05/24 Nicolle Rodriguez NP [address] [place] [address] Nurse Practitioner Family Medicine 01/16/24 Division Operations Specialist Relationship Specialty Start Date End Date Shaikh Gagnon MD [address] [place] [phone] PCP - [employer] 06/06/23 Rm Rainey MD [address] [place] [address] PCP - General Family Medicine 04/05/24 Nicolle Rodriguez NP [address] [place] [address] Nurse Practitioner Family Medicine 01/16/24 Division Operations Specialist Relationship Specialty Start Date End Date Shaikh Gagnon MD [address] [place] [address] [facility] 06/06/23 Rm Rainey MD [address] [place] [phone] PCP - General Family Medicine 04/05/24 Nicolle Rodriguez NP [address] [place] [phone] Nurse Practitioner Family Medicine 01/16/24 Division Operations Specialist Relationship Specialty Start Date End Date Shaikh Gagnon MD [address] [place] [address] [facility] 06/06/23 Rm Rainey MD [address] [place] [phone] PCP - General [facility] 04/05/24 Nicolle Rodriguez NP [address] [place] [address] Nurse Practitioner Family Medicine 01/16/24 Goals (unrecognized [...] BE BASED ON THE PRIMARY CLINICAL RECORDS. [facility]. provides no warranty or guarantee of the accuracy or completeness of information in this document.
[2024-07-17 10:22] LABS: Basophils Absolute Auto 0.1 10^3/uL (0.0-0.1); Basophils Percent Auto 0.6 % (0.2-2.0); Eosinophils Absolute Auto 0.3 10^3/uL (0.0-0.7); Eosinophils Percent Auto 2.9 % (0.9-7.0); Hematocrit 41.2 % (42.0-54.0); Hemoglobin 13.8 g/dL (14.0-18.0); Immature Granulocytes Abs Auto 0.02 10^3/uL (0.00-0.03); Immature Granulocytes Pct Auto 0.2 % (0.0-0.5); Lymphocytes Absolute Auto 2.5 10^3/uL (1.2-3.8); Lymphocytes Percent Auto 28.4 % (20.5-60.0); Mean Corpuscular HGB Conc 33.5 g/dL (29.9-35.2); Mean Corpuscular Hemoglobin 32.4 pg (25.9-34.0); Mean Corpuscular Volume 96.7 fL (80.0-94.0); Mean Platelet Volume 10.5 fL (9.5-13.5); Monocytes Absolute Auto 0.6 10^3/uL (0.3-0.8); Neutrophils Absolute Auto 5.3 10^3/uL (1.4-6.5); Neutrophils Percent Auto 60.9 % (43.0-75.0); Platelet Count 206 10^3/uL (150-450); Red Blood Count 4.26 10^6/uL (4.70-6.10); Red Cell Distribution Width 12.6 % (11.0-15.0); White Blood Count 8.7 10^3/uL (4.0-11.0)
[2024-07-17 10:46] LABS: Alanine Aminotransferase 24 U/L (16-63); Albumin Level 3.5 g/dL (3.4-5.0); Alkaline Phosphatase 55 U/L (46-116); Anion Gap 13.3; Aspartate Amino Transferase 20 U/L (15-37); Bilirubin Total 0.6 mg/dL (0.2-1.0); Carbon Dioxide 28.3 mmol/L (21.0-32.0); Chloride 105 mmol/L (98-107); Chol HDL Ratio 2.3; Cholesterol 118 mg/dL (<=200); Estimated GFR (African America 55 (>=60 mL/min/1.73m^2); Estimated GFR (Non-African Ame 45 (>=60 mL/min/1.73m^2); Globulin 3.5 g/dL; Glucose 98 mg/dL (74-106); HDL Cholesterol 52 mg/dL (40-60); Potassium 4.6 mmol/L (3.5-5.1); Sodium 142 mmol/L (136-145); Triglycerides 95 mg/dL (<=150)
[2024-07-17 11:00] LABS: Creatinine Urine Random 16.03 mg/dL (20.00-300.00); Microalbumin Urine Random <1.3 mg/dL (<=30.0)
== END 2024-07-17 09:49 | disposition home or self-care (01) ==
LOC: LAB 09:51
DX: E78.2 Mixed hyperlipidemia (principal); N18.31 Chronic kidney disease, stage 3a; I12.9 Hypertensive chronic kidney disease with stage 1 through stage 4 chronic kidney disease, or unspecified chronic kidney disease
CPT/HCPCS: 36415; 80053; 80061; 82043; 82570; 85025

== ENCOUNTER 2024-07-20 16:07 | Emergency (ER) | payer MEDICARE, SELFPAY ==
[2024-07-20 16:10] VITALS: BP 129/80; PULSE 86; TEMP 37.2; O2SAT 97; BMI 33.7
--- OUTSIDE RECORDS SUMMARY | 2024-07-20 16:14 | XMS_ITS | CCD ---
Author Organization [facility] Care Team Providers Care Parent Trainer Name Role Phone Jose Victoria Unavailable DR [...] Unavailable SAMSA ., RUKHSANA Admitting Unavailable SHAIKH GAGNON Primary Care Physician Kalin HENDRICKSON, Unavailable Rm Rainey MD Primary Care Provider Nicolle Rodriguez NP Unavailable Unallocated MD, Noms Provider Primary Care Provi phoebe Brigid HENDRICKSON, Rm Primary Care Provider SHAIKH GAGNON Attending Unavailable KALIN, Attending Unavailable KALIN, Attending Unavailable RODRIGUEZ, NICOLLE Attending Unavailabl e RODRIGUEZ, NICOLLE Attending Unavailabl e RODRIGUEZ, NICOLLE Attending Unavailabl e RODRIGUEZ, NICOLLE Attending Unavailantoinette e Will HOLLINS Attending Unavailable Will HOLLINS Attending Unavailable SHAIKH GAGNON Primary Care Unavailable Will HOLLINS Attending Unavailable Will HOLLINS Attending Unavailable OrzechMaribel Attending Unavailable Allergies Allergy Classification Reported Allergen(s) Allergy Type Date of Onset Reaction(s) Facility (1 source) No Known Medication Allergies; Translations: [No Known Medication Allergies] Propensity to adverse reactions (disorder) [facility] Repository Medications Current Medications Medication Drug Class(es) Dates Sig (Normalized) Sig (Original) [id number] 200 actuat albuterol 0.09 mg/actuat metered dose [...] Xanthine Oxidase Inhibitor Start: 12-29-2023 End: 09-18-2024 allopurinol 100 mg Tab 100 mg = 1 tab(s) Start Date: [...] / zinc oxide 17.4 mg oral capsule (19 sources) Vitamin C Start: 06-24-2023 take 2 capsules by mouth once daily Multiple Vitamins-Minerals (PreserVision AREDS 2) capsule Take 2 capsules by mouth Daily 06/24/2023 Active atorvastatin 40 mg oral tablet (20 sources) HMG-CoA Reductase Inhibitor Start: 11-01-2019 End: 06-20-2024 take 1 tablet by mouth once daily atorvastatin (Lipitor) 40 MG tablet Indications: Hyperlipidemia, unspecified (CMS/HCC) Take 1 tablet (40 mg) by mouth Daily 90 tablet 1 06/20/2024 Active 60 actuat budesonide 0.16 mg/actuat / formoterol fumarate 0.0045 mg/actuat metered dose inhaler (20 sources) Corticosteroid , beta2-Adrenerg ic Agonist Start: 07-10-2024 take 2 puff(s) by mouth once daily budesonide-formoterol (Symbicort) 160-4.5 MCG/ACT inhaler Indications: Centrilobular emphysema (CMS/HCC) Inhale 2 puffs Daily Rinse mouth with water after use to reduce aftertaste and incidence of candidiasis. Do not swallow. 30.6 g 2 07/10/2024 Active Start: 05-22-2024 End: 07-10-2024 take 2 puff(s) by mouth once daily budesonide-formoterol (Symbicort) 160-4.5 MCG/ACT inhaler Indications: Centrilobular emphysema (CMS/HCC) Inhale 2 puffs Daily Rinse mouth with water after use to reduce aftertaste and incidence of candidiasis. Do not swallow. 30.6 g 2 06/20/2024 07/10/2024 Discontinued (Reorder) Start: 12-20-2023 End: 05-22-2024 take [...] oral tablet (20 sources) Loop Diuretic Start: 11-01-2019 End: 06-20-2024 take 1 tablet by mouth once daily furosemide (Lasix) 20 MG tablet Indications: Chronic right heart failure (HCC) (CMS/HCC) Take 1 tablet (20 mg) by mouth Daily 90 tablet 2 06/20/2024 Active 200 actuat ipratropium bromide 0.017 mg/actuat [...] (20 sources) Angiotensin 2 Receptor Ellis Start: 08-21-2021 End: 07-10-2024 take 1 tablet by mouth once daily losartan (Cozaar) 50 MG tablet Indications: Essential (primary) hypertension (CMS/HCC) Take 1 tablet (50 mg) by mouth Daily 90 tablet 1 07/10/2024 Active metoprolol tartrate 25 mg oral tablet (20 sources) beta-Adrenergic Ellis Start: 12-29-2023 End: 07-10-2024 take 1 tablet by mouth in the morning metoprolol tartrate (Lopressor) 25 MG tablet Indications: Essential (primary) hypertension (CMS/HCC) Take 1 tablet (25 mg) by mouth in the morning and 1 tablet (25 mg) before bedtime. 180 tablet 1 07/10/2024 Active Start: 10-13-2023 take 25 mg by [...] Proton Pump Inhibitor Start: 12-29-2023 End: 01-06-2025 omeprazole 40 mg Cap-DR 40 mg = 1 cap(s) Start Date: 01/17/24 Status: Ordered predniSONE 20 mg oral tablet (2 sources) Start: 04-23-2024 End: 04-28-2024 take 2 tablets by mouth once daily predniSONE (Deltasone) 20 MG tablet Indications: Bronchitis Take 2 tablets (40 mg) by mouth Daily for 5 days 10 tablet 04/23/2024 04/28/2024 Active tamsulosin hydrochloride 0.4 mg oral capsule (20 sources) alpha-Adrenergic Ellis Start: 12-20-2023 End: 01-11-2025 take 1 capsule by mouth once daily tamsulosin (Flomax) 0.4 MG 24 hr capsule Indications: Malignant (primary) neoplasm, unspecified (CMS/HCC) Take 1 capsule (0.4 mg) by mouth Daily 90 capsule 2 07/10/2024 Active Start: 11-01-2019 take 0.4 mg by [...] 09/28/2023 03/19/2024 Discontinued (Therapy completed) Vitamin D3 (4 sources) Start: 11-01-2019 Vitamin D3 Refills(s) 0 Start Date: 11/01/19 Status: Ordered Problems Active Problems Problem Classification Problem Date Documented Date Episodic/Chronic Alcohol-related disorders (1 source) Alcohol abuse with intoxication, unspecified; Translations: [ALCOHOL ABUSE WITH INTOXICATION UNS] Onset: 2 Chronic Cancer of kidney and renal pelvis (4 sources) Renal cell carcinoma 11-01-2019 Chronic Cancer of kidney and renal pelvis (20 sources) History of malignant neoplasm of kidney; Translations: [Personal history of other malignant neoplasm of kidney] Onset: 3 Episodic Cancer of prostate (20 sources) Malignant tumor of prostate; Translations: [Malignant neoplasm of prostate] Onset: 4 11-01-2019 Chronic Cancer of prostate (20 sources) Personal history of malignant neoplasm of prostate; Translations: [History of malignant neoplasm of prostate] Onset: 3 Episodic Chronic kidney disease (20 sources) Chronic kidney disease stage 3; Translations: [Chronic kidney disease, stage III (moderate)] Onset: 4 10-13-2023 Chronic Chronic obstructive pulmonary disease and bronchiectasis (20 sources) Pulmonary emphysema; Translations: [Emphysema, unspecified] Onset: 3 05-10-2023 Chronic Chronic obstructive pulmonary disease and bronchiectasis (12 sources) Bronchitis; Translations: [Bronchitis, not specified as [...] [Dyslipidemia] Onset: 3 Chronic E Codes: Fall (9 sources) Fall; Translations: [Unspecified fall, subsequent encounter] [...] 2 Chronic Genitourinary symptoms and ill-defined conditions (10 sources) History of urinary tract infection; Translations: [...] Chronic Other diseases of kidney and ureters (11 sources) Hyperparathyroidism due to renal insufficiency; Translations: [Secondary hyperparathyroidism of renal origin] Onset: 4 04-23-2024 Chronic Other fractures (9 sources) Fracture of third cervical vertebra; Translations: [...] [Raised prostate specific antigen] Onset: 2 Episodic Other upper respiratory infections (19 sources) Chronic sinusitis, unspecified; Translations: [Unspecified sinusitis [...] Translations: [CONTACT W/AND (SUSP) EXPOS COVID-19] Onset: Unclassified (4 sources) Drug therapy finding 11-01-2019 Past or [...] MG/100 ML/MORE] Onset: 04-12-2022 Episodic Gastrointestinal hemorrhage (19 sources) Hematemesis; Translations: [Hematemesis] Onset: 08-23-2023 Resolved: 09-28-2023 09-28-2023 Episodic Malaise and fatigue (1 source) Weakness; Translations: [WEAKNESS] Onset: 04-12-2022 Episodic Mood disorders (19 sources) Mood disorders Onset: 05-10-2023 05-10-2023 Other aftercare (1 source) Other long-term (current) drug therapy; Translations: [OTH LONGTERM CURRENT DRUG THERAPY] Onset: 04-12-2022 Episodic Other aftercare (19 sources) Post-discharge follow-up; Translations: [Encounter for follow-up examination after completed treatment for conditions other than malignant neoplasm] Onset: 08-23-2023 08-23-2023 Episodic Other connective tissue disease (1 source) Pain in left leg; Translations: [PAIN IN LEFT LEG] Onset: 01-04-2022 Episodic Other injuries and conditions due to external causes (20 sources) Injury of right ankle; Translations: [Unspecified injury of right ankle, initial encounter] Onset: 03-19-2024 03-19-2024 Episodic Other nervous system disorders (1 source) Slurred speech; Translations: [SLURRED SPEECH] Onset: 04-12-2022 Episodic Other non-traumatic joint disorders (19 sources) Chronic pain of right upper limb; Translations: [Pain in right shoulder] Onset: 09-28-2023 09-28-2023 Episodic Other non-traumatic joint disorders (19 sources) Hip pain; Translations: [Pain in left hip] Onset: 09-28-2023 09-28-2023 Episodic Other upper respiratory infections (20 sources) Acute upper respiratory infection; Translations: [Acute upper respiratory infection, unspecified] Onset: 05-10-2023 05-10-2023 Episodic Residual codes; unclassified (4 sources) Altered mental status, unspecified; Translations: [ALTERED MENTAL STATUS UNSPECIFIED] Onset: 04-08-2022 Episodic Spondylosis; intervertebral disc disorders; other back problems (19 sources) Chronic thoracic back pain; Translations: [Pain in thoracic spine] Onset: 08-23-2023 08-23-2023 Episodic Results Test Name Value Interpretation Reference Range Facility ALL CBC WITH AUTO DIFFon BASOPHILS ABSOLUTE AUTO 0.1 [facility] Basophils/100 WBC (Bld) 0.6 % 0.2 - 2.0 % [facility] Eosinophils/100 WBC (Bld) 2.9 % 0.9 - 7.0 % [facility] Erythrocyte distribution width (RBC) [Ratio] 12.6 % 11.0 - 15.0 % [facility] Hematocrit (Bld) [Volume fraction] 41.2 % Low 42.0 - 54.0 % [facility] ([facility] [Mass/Vol] 13.8 g/dL Low 14.0 - 18.0 g/dL [facility] IMMATURE GRANULOCYTES ABS AUTO 0.02 [facility] Immature granulocytes/100 WBC (Bld) 0.2 % 0.0 - 0.5 % [facility] Interpretation and review of laboratory results Abnormal [facility] LYMPHOCYTES ABSOLUTE AUTO 2.5 [facility] Lymphocytes/100 WBC (Bld) 28.4 % 20.5 - 60.0 % [facility] MCH (RBC) [Entitic mass] 32.4 pg 25.9 - 34.0 pg [facility] MCHC (RBC) [Mass/Vol] 33.5 g/dL 29.9 - 35.2 g/dL [facility] MCV (RBC) [Entitic vol] 96.7 fL High 80.0 - 94.0 fL [facility] MONOCYTES ABSOLUTE AUTO 0.6 [facility] Monocytes/100 WBC (Bld) 7 % 1.7 - 12.0 % [facility] NEUTROPHILS ABSOLUTE AUTO 5.3 [facility] Neutrophils/100 WBC (Bld) 60.9 % 43.0 - 75.0 % [facility] Platelet mean volume (Bld) [Entitic vol] 10.5 fL 9.5 - 13.5 fL [facility] are [facility] EO # 0.3 [facility] PLT 206 [facility] TB RBC 4.26 Low [facility] TB WBC 8.7 [facility] PSA, DIAGNOSTICon 04-18 PROSTATE SPECIFIC ANTIGEN DX 0.8 ng/mL NINF - 4.00 ng/mL [facility] No Panel Informationon 03-19 [facility] e SARS-COV-2 AG*on 03-19-2024 SARS-CoV-2 (COVID-19) RNA PAUL+probe Ql (Unsp spec) Negative NEGATIVE [facility] Comment on above: This test has [...] is terminated or authorization is revoked sooner. [facility] INFLUENZA A AND B AGon 1 INFLUENZA VIRUS A ANTIGEN Negative [facility] Comment on above: Negative for Flu A p rotein antigen. Infection due to Flu A cannot be ruled out. Flu A antigen in the sample may be below the detection limit of the test. INFLUENZA VIRUS B ANTIGEN Negative [facility] Comment on above: Negative for Flu [...] Will HOLLINS MD Where: [facility] [address] [place] [address]- You Need to Schedule the Following Appointments Follow Up with Will HOLLINS MD, URL When: Where: [address] [place] [address] [place] [id number]- Medications What How Much When Instructions Changed tamsulosin (tamsulosin 0.4 mg Cap) 1 Capsules By Mouth Every day Duration: 90 Days Pickup at [facility] Unchanged allopurinol (allopurinol 100 mg Tab) [...] physician if questions or concerns Pharmacy Information [facility]: [address] [place], [place] [id number] [phone] Allergies No Known Medication Allergies Problems Ongoing [...] care pr (more content not included)... Normal [facility] Urology Office/Clinic Noteon 01-17-2024 Urology Office/Clinic [...] - 0.23 Pt believes he had a Perry 7. Completed at [facility]. [1] S/p brachytherapy 03/24/11. PSA decreased which [...] With When Contact Information GURVINDER HENDRICKSON, Will P, URL [address] [place] [address] [place] [id number]- Additional Instructions: 4 mos with PSA [...] with voice recognition artificial intelligence software, specifically [employer], [employer] and or [employer]-dor. Substitutions may have occurred due to the [...] Left nephrect (more content not included)... Normal [facility] Comment on above: Result Comment: Elec tronically Signed By: Will HOLLINS MD P\.br\Date and Time Signed: 01/17/24 08:35 EDT\.br\Electronically Co-Signed By: Laurel Bradley\.br\Date and Time Co-Signed: 01/17/24 08:31 EDT ED Note-Physicianon 10-20-19 ED Note-Physician [id number] 0#1.00TIFF [facility] Lab Reportson 10-20-2023 Lab Reports [id number] 9#1.00TIFF [facility] Lab Reports [id number] 2#1.00TIFF [facility] RAD - CT Reporton 10-20-2023 RAD - CT Report [id number] 5#1.00TIFF [facility] Screenson 10-20-2023 Screens [id number] #1.00TIFF [facility] Ambulatory Visit Summaryon 0 10-17-2023 Ambulatory Visit Summary ARISTIDES MARCO Lowery :1955 Visit Date:10/17/2023 Ambulatory Visit Instructions Your [...] Follow-Up Appointments Tuesday 9:45 AM EDT With: Will HOLLINS MD Where: [facility] Patient Educationon 10-17-19 Patient Education [...] under a microscope. This is called the Perry score and the total score can range from 6?10, indicating how likely it is that the cancer will spread (metastasize) to other parts of the body. The higher the score, the greater the likelihood that the cancer will spread. ? Primitivo 6 or lower: This indicates that the cancer cells look similar to normal prostate cells (well differentiated). ? Perry 7: This indicates that the cancer cells look somewhat similar to normal prostate cells (moderately differentiated). ? Perry 8, 9, or 10: This indicates that [...] external be (more content not included)... Normal [facility] Urology Office/Clinic Noteon 10-17-2023 Urology Office/Clinic Note Chief Complaint 1 year follow up HPI Staff 1 year follow up w/PSA *Taking Flomax 0.4 mg qd S/P Lt Nephrectomy 2000 Pt was seen at [facility] on 09/06/23 due to left rib pain. BUN 36, Creatinine 1.09 10/04/23. BUN 26. Creatinine 1.33 09/06/23 CT SCAN 08/12/23 PSA: 10/26/19 - 0.05 08/10/21 - 0.05 10/11/22 - <0.13 09/30/23 - 0.90 Dysuria: denies pain or burning Incomplete bladder emptying: denies Hematuria: yes 6 weeks ago, went to [facility], vomiting blood Frequency: 3x a day [...] with voice recognition artificial intelligence software, specifically [employer], [employer] and or [employer]-dor. Substitutions may have occurred due to the inherent limitations of voice recognition and artificial intelligence software. 1. Rising PSA following treatment for malignant neoplasm of prostate (R97.21: Rising PSA following treatment for malignant neoplasm of prostate) PSA: 10/26/19 - 0.05 08/10/21 - 0.05 10/11/22 - <0.13 09/30/23 - 0.90 S/p brachytherapy 03/24/11. Pt believes he had a Primitivo 7. Completed at [facility]. Rise in PSA is concerning given pt [...] adenocarcinoma the prostate, previously treated at the [facility] with prostate brachytherapy now has [...] Contact Information GURVINDER HENDRICKSON, Will Day, URL [address] [place] [address] [place] [address]- Additional Instructions: 3 mos w/ PSA Patient Education Prostate Cancer ITala, personally scribed for Dr. Hollins on 10/17/2023 10:42:59. . Documentation recorded by the scribeTala, accurately reflects the services(s) I performed and decisions made by me. Authenticated by Dr. Hollins on 10/17/2023 10:47:47. Problem List/Past (more content not included)... Normal [facility] Comment on above: Result Comment: Elec tronically Signed By: Will HOLLINS MD\.br\Date and Time Signed: 10/17/23 10:50 EDT Automated epithelial cells c ount in urine sediment (number/area)on 10-04-2023 Epithelial cells Auto (Urine sed) [#/Area] NONE SEEN #/LPF NONE/RARE [facility] Automated leukocytes count i n urine sediment (number/area)on 10-04-2023 WBC Auto (Urine sed) [#/Area] NONE SEEN #/HPF 0-2 [facility] Automated urine specific gra vity by refractometryon 10-04-2023 Specific gravity Refractometry automated (U) [Rel density] 1.025 1.005-1.025 [facility] Bilirubin Auto test strip (U ) [Mass/Vol]on 10-04-2023 Bilirubin (U) [Mass/Vol] Negative NEGATIVE [facility] Casts typing in urine sedime nt by light microscopyon 10-04-2023 Casts LM Nom (Urine sed) NONE SEEN #/LPF NONE SEEN [facility] Color Auto (U)on 10-04-2023 Color (U) YELLOW YELLOW [facility] Erythrocyte distribution wid th Auto (RBC) [Ratio]on 10-04-2023 Erythrocyte distribution width (RBC) [Ratio] 13.5 % 11.0-15.0 [facility] Estimated glomerular filtrat ion rate (GFR) non- Americanon 10-04-2023 GFR/1.73 sq M.predicted among non-blacks MDRD (S/P/Bld) [Vol rate/Area] mL/min/{1.73_m2} >=60 [facility] Hematocrit Auto (Bld) [Volum e fraction]on 10-04-2023 Hematocrit (Bld) [Volume fraction] 38.9 % 42.0-54.0 [facility] Hemoglobin [Mass/volume] in Bloodon 10-04-2023 Hemoglobin (Bld) [Mass/Vol] 13.2 g/dL 14.0-18.0 [facility] Iron binding capacity [Mass/ volume] in Serum or Plasmaon 10-04-2023 Iron binding capacity [Mass/Vol] 274.0 ug/dL 250.0-450.0 [facility] Iron saturation [Mass Fracti on] in Serum or Plasmaon 10-04-2023 Iron saturation [Mass fraction] 29.2 % [facility] Ketones Auto test strip (U) [Mass/Vol]on 10-04-2023 Ketones (U) [Mass/Vol] Negative NEGATIVE [facility] Laboratory - Chemistry and C hemistry - challengeon 10-04-2023 Albumin [Mass/Vol] 3.6 g/dL 3.4-5.0 [facility] Calcium [Mass/Vol] 9.4 mg/dL 8.5-10.1 [facility] Chloride [Moles/Vol] 104 mmol/L 98-107 [facility] CO2 [Moles/Vol] 24.4 mmol/L 21.0-32.0 [facility] Creatinine [Mass/Vol] 1.09 mg/dL 0.70-1.30 [facility] Ferritin [Mass/Vol] 257.0 ng/mL 26.0-388.0 [facility] GFR/1.73 sq M.predicted MDRD (S/P/Bld) [Vol rate/Area] mL/min/{1.73_m2} >=60 [facility] Glucose [Mass/Vol] 117 mg/dL 74-106 [facility] Iron [Mass/Vol] 80.0 ug/dL 65.0-175.0 [facility] Potassium [Moles/Vol] 3.9 mmol/L 3.5-5.1 [facility] Sodium [Moles/Vol] 139 mmol/L 136-145 [facility] Urate [Mass/Vol] 5.6 mg/dL 3.5-7.2 [facility] Urea nitrogen [Mass/Vol] 36.0 mg/dL 7.0-18.0 [facility] Urea nitrogen/Creatinine [Mass ratio] 33.0 mg/mg [facility] Laboratory - Urinalysison Protein (U) [Mass/Vol] 16.2 mg/dL <=11.9 [facility] Leukocytes [#/volume] correc yoandy for nucleated erythrocytes in Blood by Automated counon 10-04-2023 WBC corrected for nucl RBC Auto (Bld) [#/Vol] 11.9 10 3/uL 4.0-11.0 [facility] MCH Auto (RBC) [Entitic mass ]on 10-04-2023 MCH (RBC) [Entitic mass] 31.6 pg 25.9-34.0 [facility] MCHC Auto (RBC) [Mass/Vol]on 10-04-2023 MCHC (RBC) [Mass/Vol] 33.9 g/dL 29.9-35.2 [facility] MCV Auto (RBC) [Entitic vol] on 10-04-2023 MCV (RBC) [Entitic vol] 93.1 fL 80.0-94.0 [facility] Mucus LM Ql (Urine sed)on Mucus Ql (Urine sed) NONE SEEN NONE SEEN [facility] No Panel Informationon 10-03 25-Hydroxy Vitamin D Total 29.7 ng/mL [facility] Comment on above: <20 ng/mL Vit D defi cient20-<30 ng/mL Vit D [id number] ng/mL Vit D sufficient>100 ng/mL Potential Toxicity Parathyroid Hormone (Intact) 35 pg/mL 15-65 [facility] Comment on above: Performed at: [facility] [address] [id number] Director: Raymundo Wynn PhD, Phone: [phone] Phosphorus Level 4.4 mg/dL 2.6-4.7 [facility] Urine Random Creatinine 102.05 mg/dL 20.00-300.00 [facility] Platelet mean volume Auto (B ld) [Entitic vol]on 10-04-2023 Platelet mean volume (Bld) [Entitic vol] 10.5 fL 9.5-13.5 [facility] Platelets Auto (Bld) [#/Vol] on 10-04-2023 Platelets (Bld) [#/Vol] 244 10 3/uL 150-450 [facility] Protein Auto test strip (U) [Mass/Vol]on 10-04-2023 Protein (U) [Mass/Vol] Negative NEG/TRACE [facility] RBC Auto (Bld) [#/Vol]on RBC (Bld) [#/Vol] 4.18 10 6/uL 4.70-6.10 [facility] Serum or plasma anion gap de terminationon 10-04-2023 Anion gap [Moles/Vol] 14.5 mmol/L [facility] Specific gravity Auto test s trip (U) [Rel density]on 10-04-2023 Specific gravity (U) [Rel density] CLEAR CLEAR [facility] Urine bacteria detection by automated methodon 10-04-2023 Bacteria Auto Ql (U) NONE SEEN #/HPF NONE SEEN [facility] Urine glucose measurement by test strip (mass/volume)on 10-04-2023 Glucose Test strip (U) [Mass/Vol] Negative NEGATIVE [facility] Urine hemoglobin detection b y automated test stripon 10-04-2023 Hemoglobin Auto test strip Ql (U) Negative NEGATIVE [facility] Urine nitrite detection by a utomated test stripon 10-04-2023 Nitrite Auto test strip Ql (U) Negative NEGATIVE [facility] Urine protein/creatinine rat ioon 10-04-2023 Protein/Creatinine (U) [Ratio] 0.16 [facility] Urine sediment crystal ident ification by light microscopyon 10-04-2023 Crystals LM Nom (Urine sed) None Seen #/HPF None Seen [facility] Urine sediment leukocyte cou nt by microscopy (number/high power field)on 10-04-2023 WBC LM.HPF (Urine sed) [#/Area] 0-2 #/HPF NONE SEEN [facility] Urobilinogen Auto test strip (U) [Mass/Vol]on 10-04-2023 Urobilinogen Qn (U) 0.2 {Dash'U}/dL 0.2-1.0 [facility] pH Auto test strip (U)on pH (U) 6.0 [pH] 5.0-9.0 [facility] Lab Reportson 09-30-2023 Lab Reports [id number] #1.00TIFF Normal [facility] CT CHEST WO CONon 10-11-2022 CT [...] LUCAS GOLDSTEIN Date: 2022-10-11 15:31 Normal [facility] CBC AUTO DIFFon 08-23-2022 BASO # 0.0 103/ul Normal 0.0-0.1 [facility] Comment on above: Performed By: #### C BC #### [facility] [address] [address] [address] Jesus White Basophils/100 WBC (Bld) 0.5 % Normal 0.2-2.0 [facility] Comment on above: Performed By: #### C BC #### [facility] [address] [address] [address] Jesus White EO # 0.2 103/ul Normal 0.0-0.7 [facility] Comment on above: Performed By: #### C BC #### [facility] [address] [address] [address] Jesus White Eosinophils/100 WBC (Bld) 2.2 % Normal 0.9-7.0 [facility] Comment on above: Performed By: #### C BC #### [facility] [address] [place] [address] Dr. Jesus White Erythrocyte distribution width (RBC) [Ratio] 13.3 % Normal 11.0-15.0 [facility] Comment on above: Performed By: #### C BC #### [facility] [address] [place] [address] Dr. Jesus White Hematocrit (Bld) [Volume fraction] 43.0 % Normal 42.0-54.0 [facility] Comment on above: Performed By: #### C BC #### [facility] [address] [place] [address] Dr. Jesus White Hemoglobin (Bld) [Mass/Vol] 14.4 g/dL Normal 14.0-18.0 [facility] Comment on above: Performed By: #### C BC #### [facility] [address] [place] [address] Dr. Jesus White IG # 0.02 10e3/ul Normal 0.00-0.03 [facility] [place] Comment on above: Performed By: #### C BC #### [facility] [address] [place] [address] Dr. Jesus White IG % 0.2 % Normal 0.0-0.5 [facility] [place] Comment on above: Performed By: #### C BC #### [facility] [address] [place] [address] Dr. Jesus White LYMPH # 3.0 103/ul Normal 1.2-3.8 [facility] [place] Comment on above: Performed By: #### C BC #### [facility] [address] [place] [address] Dr. Jesus White Lymphocytes/100 WBC (Bld) 35.8 % Normal 20.5-60.0 [facility] Comment on above: Performed By: #### C BC #### [facility] [address] [place] [address] Dr. Jesus White MANUAL DIFF REQ NO Normal [facility] Comment on above: Performed By: #### C BC #### [facility] [address] [place] [address] Dr. Jesus White MCH (RBC) [Entitic mass] 30.6 pg Normal 25.9-34.0 [facility] Comment on above: Performed By: #### C BC #### [facility] [address] [address] [address] Jesus White MCHC (RBC) [Mass/Vol] 33.5 g/dL Normal 29.9-35.2 [facility] Comment on above: Performed By: #### C BC #### [facility] [address] [address] [address] Jesus White MCV (RBC) [Entitic vol] 91.5 fL Normal 80.0-94.0 [facility] Comment on above: Performed By: #### C BC #### [facility] [address] [place] [address] Dr. Jesus White MONO # 0.8 103/ul Normal 0.3-0.8 [facility] Comment on above: Performed By: #### C BC #### [facility] [address] [place] [address] Dr. Jesus White Monocytes/100 WBC (Bld) 9.1 % Normal 1.7-12.0 [facility] Comment on above: Performed By: #### C BC #### [facility] [address] [place] [address] Dr. Jesus White NEUT # 4.4 103/ul Normal 1.4-6.5 [facility] [place] Comment on above: Performed By: #### C BC #### [facility] [address] [place] [address] Dr. Jesus White Neutrophils/100 WBC (Bld) 52.2 % Normal 43.0-75.0 [facility] Comment on above: Performed By: #### C BC #### [facility] [address] [place] [address] Dr. Jesus White Platelet mean volume (Bld) [Entitic vol] 9.8 fL Normal 9.5-13.5 [facility] Comment on above: Performed By: #### C BC #### [facility] [address] [place] [address] Dr. Jesus White PLT 236 103/ul Normal 150-450 [facility] Comment on above: Performed By: #### C BC #### [facility] [address] [address] [address] Jesus White RBC 4.70 106/ul Normal 4.70-6.10 [facility] [place] Comment on above: Performed By: #### C BC #### [facility] [address] [address] [address] Jesus White WBC 8.4 103/ul Normal 4.0-11.0 [facility] Comment on above: Performed By: #### C BC #### [facility] [address] [place] [address] Dr. Jesus White LIPID PROFILEon 08-23-2022 CHOL-HDL RATIO NORM SEE BELOW Normal [facility] Comment on above: Result Comment: 3.3 - 4.4 LOW RISK 4.4 - 7.1 AVERAGE RISK 7.1 - 11.0 MODERATE RISK >11.0 HIGH RISK Performed By: #### C MP, LIPID #### [facility] [address] [place] [address] Dr. Jesus White Cholesterol [Mass/Vol] 121 mg/dL Normal <=200 [facility] [place] Comment on above: Performed By: #### C MP, LIPID #### [facility] [address] [place] [address] Dr. Jesus White Cholesterol in HDL [Mass/Vol] 37 mg/dL Critically low 40-60 [facility] Comment on above: Performed By: #### C MP, LIPID #### [facility] [address] [place] [address] Dr. Jesus White Cholesterol in LDL [Mass/Vol] 59.6 mg/dL Normal [facility] Comment on above: Performed By: #### C MP, LIPID #### [facility] [address] [place] [address] Dr. Jesus White Cholesterol.total/Ch olesterol in HDL [Mass ratio] 3.3 {ratio} Normal [facility] [place] Comment on above: Performed By: #### C MP, LIPID #### [facility] [address] [address] [address] Jesus White HDL NORMAL > or = 60 mg/dl - LOW CARDIOVASCULAR RISK <40 mg/dl - HIGH CARDIOVASCULAR RISK Normal [facility] Comment on above: Performed By: #### C MP, LIPID #### [facility] [address] [address] [address] Jesus White LDL CALC NORMAL SEE BELOW Normal [facility] Comment on above: Result Comment: <100 mg/dl OPTIMAL 100 - 129 mg/dl NEAR OR ABOVE OPTIMAL 130 - 159 mg/dl BORDERLINE HIGH 160 - 189 mg/dl HIGH >190 mg/dl VERY HIGH Performed By: #### C MP, LIPID #### [facility] [address] [address] [address] Jesus White Triglyceride [Mass/Vol] 122 mg/dL Normal <=150 [facility] Comment on above: Performed By: #### C MP, LIPID #### [facility] [address] [address] [address] Jesus White VLDL CALC 24.4 mg/dL Normal [facility] Comment on above: Performed By: #### C MP, LIPID #### [facility] [address] [place] [address] Dr. Jesus White PROF 14(COMP METB)on 023 Albumin [Mass/Vol] 3.8 g/dL Normal 3.4-5.0 [facility] Comment on above: Performed By: #### C MP, LIPID #### [facility] [address] [place] [address] Dr. Jesus White Albumin/Globulin [Mass ratio] 1.1 {ratio} Normal [facility] Comment on above: Performed By: #### C MP, LIPID #### [facility] [address] [place] [address] Dr. Jesus White ALP [Catalytic activity/Vol] 46 U/L Normal 46-116 [facility] Comment on above: Performed By: #### C MP, LIPID #### [facility] [address] [place] [address] Dr. Jesus White ALT [Catalytic activity/Vol] 37 U/L Normal 16-63 [facility] Comment on above: Performed By: #### C MP, LIPID #### [facility] [address] [address] [address] Jesus White Anion gap [Moles/Vol] 11.3 mmol/L Normal [facility] [place] Comment on above: Performed By: #### C MP, LIPID #### [facility] [address] [address] [address] Jesus White AST [Catalytic activity/Vol] 28 U/L Normal 15-37 [facility] [place] Comment on above: Performed By: #### C MP, LIPID #### [facility] [address] [address] [address] Jesus White Bilirubin [Mass/Vol] 0.5 mg/dL Normal 0.2-1.0 [facility] Comment on above: Performed By: #### C MP, LIPID #### [facility] [address] [place] [address] Dr. Jesus White Calcium [Mass/Vol] 9.5 mg/dL Normal 8.5-10.1 [facility] Comment on above: Performed By: #### C MP, LIPID #### [facility] [address] [address] [address] Jesus White Chloride [Moles/Vol] 104 mmol/L Normal 98-107 [facility] Comment on above: Performed By: #### C MP, LIPID #### [facility] [address] [place] [address] Dr. Jesus White CO2 [Moles/Vol] 28.9 mmol/L Normal 21.0-32.0 [facility] Comment on above: Performed By: #### C MP, LIPID #### [facility] [address] [address] [address] Jesus White Creatinine [Mass/Vol] 0.99 mg/dL Normal 0.70-1.30 [facility] Comment on above: Performed By: #### C MP, LIPID #### [facility] [address] [place] [address] Dr. Jesus White EGFR-AF SENEGALESE >60 Normal >=60 [facility] Comment on above: Performed By: #### C MP, LIPID #### [facility] [address] [address] [address] Jesus White EGFR-NON AF SENEGALESE >60 Normal >=60 [facility] Comment on above: Performed By: #### C MP, LIPID #### [facility] [address] [address] [address] Jesus White Globulin (S) [Mass/Vol] 3.6 g/dL Normal [facility] Comment on above: Performed By: #### C MP, LIPID #### [facility] [address] [address] [address] Jesus White Glucose [Mass/Vol] 92 mg/dL Normal 74-[address] [facility] Comment on above: Performed By: #### C MP, LIPID #### [facility] [address] [place] [address] Dr. Jesus White Potassium [Moles/Vol] 4.2 mmol/L Normal 3.5-5.1 [facility] Comment on above: Performed By: #### C MP, LIPID #### [facility] [address] [place] [address] Dr. Jesus White Protein [Mass/Vol] 7.4 g/dL Normal 6.4-8.[address] [facility] Comment on above: Performed By: #### C MP, LIPID #### [facility] [address] [place] [address] Dr. Jesus White Sodium [Moles/Vol] 140 mmol/L Normal 136-[address] [facility] Comment on above: Performed By: #### C MP, LIPID #### [facility] [address] [place] [address] Dr. Jesus White Urea nitrogen [Mass/Vol] 12.0 mg/dL Normal 7.0-18.0 [facility] Comment on above: Performed By: #### C MP, LIPID #### [facility] [address] [place] [address] Dr. Jesus White Urea nitrogen/Creatinine [Mass ratio] 12.1 mg/mg Normal [facility] Comment on above: Performed By: #### C MP, LIPID #### [facility] [address] [address] [address] LUNG CANCER SCREENINGon [...] LUCAS GOLDSTEIN Date: 2022-07-05 12:53 Normal [facility] BLOOD GASES BTYon 04-08-2022 02 MODE ROOM AIR Normal [facility] Comment on above: Performed By: #### A BG ####[facility] [address] [address]DrJordin White ALLENS TEST Positive Normal [facility] Comment on above: Performed By: #### A BG ####[facility] [address] [id number] White Base excess Calc (Bld) [Moles/Vol] -0.4000 mmol/L Normal -2.0-2.0 [facility] Comment on above: Performed By: #### A BG ####[facility] [address] [address] Jesus White BIPAP PRESSURE Normal [facility] Comment on above: Performed By: #### A BG ####[facility] [address] [address]Dr. Jesus White CPAP Normal [facility] Comment on above: Performed By: #### A BG ####[facility] [address] [place], [place] [address]Dr. Jesus White FIO2 Normal [facility] Comment on above: Performed By: #### A BG ####[facility] [address] [place], [place] [address]Dr. Jesus White HCO3 (Bld) [Moles/Vol] 24.7 mmol/L Normal 22.0-26.0 [facility] Comment on above: Performed By: #### A BG ####[facility] [address] [place], [place] [address]Dr. Jesus White LPM Normal [facility] Comment on above: Performed By: #### A BG ####[facility] [address] [place], [place] [address]Dr. Jesus White MINUTE VOLUME Normal [facility] Comment on above: Performed By: #### A BG ####[facility] [address] [place], [place] [address]Dr. Jesus White Oxygen (Bld) [Partial pressure] 75.3 mm[Hg] Critically low 80.0-100.0 [facility] Comment on above: Performed By: #### A BG ####[facility] [address] [place], [place] [address]Dr. Jesus White Oxygen saturation in Blood 94.7 % Critically low 95.0-100.0 [facility] Comment on above: Performed By: #### A BG ####[facility] [address] [place], [place] [address]Dr. Jesus White PCO2 42.0 mmHg Normal 35.0-45.0 [facility] Comment on above: Performed By: #### A BG ####[facility] [address] [address]Dr[address] Jesus White PEEP [facility] Comment on above: Performed By: #### A BG ####[facility] [address] [address]. Jesus White pH (Bld) 7.379 [pH] Normal 7.350-7.450 [facility] Comment on above: Performed By: #### A BG ####[facility] [address] [address]Dr. Jesus White PIP [facility] Comment on above: Performed By: #### A BG ####[facility] [address] [address]Dr. Jesus White PS [facility] Comment on above: Performed By: #### A BG ####[facility] [address] [address]Dr. Jesus White PUNCTURE SITE LR [facility] Comment on above: Performed By: #### A BG ####[facility] [address] [address]Dr. Jesus White RATE [facility] Comment on above: Performed By: #### A BG ####[facility] [address] [address]Dr. Jesus White VENT MODE [facility] Comment on above: Performed By: #### A BG ####[facility] [address] [address]DrJordin White [place] [facility] Comment on above: Performed By: #### A BG ####[facility] [address] [address]DrJordin White CBC AUTO DIFFon 04-08-2022 BASO # 0.1 103/ul Normal 0.0-0.1 [facility] Comment on above: Performed By: #### C BC #### [facility] [address] [address] [address] Jesus White Basophils/100 WBC (Bld) 0.6 % Normal 0.2-2.0 [facility] Comment on above: Performed By: #### C BC #### [facility] [address] [place] [address] Dr. Jesus White EO # 0.2 103/ul Normal 0.0-0.7 [facility] Comment on above: Performed By: #### C BC #### [facility] [address] [place] [address] Dr. Jesus White Eosinophils/100 WBC (Bld) 1.5 % Normal 0.9-7.0 [facility] [place] Comment on above: Performed By: #### C BC #### [facility] [address] [place] [address] Dr. Jesus White Erythrocyte distribution width (RBC) [Ratio] 13.2 % Normal 11.0-15.0 [facility] Comment on above: Performed By: #### C BC #### [facility] [address] [place] [address] Dr. Jesus White Hematocrit (Bld) [Volume fraction] 41.7 % Critically low 42.0-54.0 [facility] Comment on above: Performed By: #### C BC #### [facility] [address] [place] [address] Dr. Jesus White Hemoglobin (Bld) [Mass/Vol] 14.3 g/dL Normal 14.0-18.0 [facility] Comment on above: Performed By: #### C BC #### [facility] [address] [place] [address] Dr. Jesus White IG # 0.03 10e3/ul Normal 0.00-0.03 [facility] Comment on above: Performed By: #### C BC #### [facility] [address] [place] [address] Dr. Jesus White IG % 0.3 % Normal 0.0-0.5 [facility] Comment on above: Performed By: #### C BC #### [facility] [address] [place] [address] Dr. Jesus White LYMPH # 5.6 103/ul Critically high 1.2-3.8 [facility] Comment on above: Performed By: #### C BC #### [facility] [address] [place] [address] Dr. Jesus White Lymphocytes/100 WBC (Bld) 57.0 % Normal 20.5-60.0 [facility] Comment on above: Performed By: #### C BC #### [facility] [address] [place] [address] Dr. Jesus White MANUAL DIFF REQ NO Normal [facility] Comment on above: Performed By: #### C BC #### [facility] [address] [place] [address] Dr. Jesus White MCH (RBC) [Entitic mass] 31.4 pg Normal 25.9-34.0 [facility] Comment on above: Performed By: #### C BC #### [facility] [address] [place] [address] Dr. Jesus White MCHC (RBC) [Mass/Vol] 34.3 g/dL Normal 29.9-35.2 [facility] Comment on above: Performed By: #### C BC #### [facility] [address] [place] [address] Dr. Jesus White MCV (RBC) [Entitic vol] 91.6 fL Normal 80.0-94.0 [facility] Comment on above: Performed By: #### C BC #### [facility] [address] [place] [address] Dr. Jesus White MONO # 0.5 103/ul Normal 0.3-0.8 [facility] Comment on above: Performed By: #### C BC #### [facility] [address] [place] [address] Dr. Jesus White Monocytes/100 WBC (Bld) 5.1 % Normal 1.7-12.0 [facility] Comment on above: Performed By: #### C BC #### [facility] [address] [place] [address] Dr. Jesus White NEUT # 3.5 103/ul Normal 1.4-6.5 [facility] Comment on above: Performed By: #### C BC #### [facility] [address] [place] [address] Dr. Jesus White Neutrophils/100 WBC (Bld) 35.5 % Critically low 43.0-75.0 [facility] Comment on above: Performed By: #### C BC #### [facility] [address] [place] [address] Dr. Jesus White Platelet mean volume (Bld) [Entitic vol] 9.5 fL Normal 9.5-13.5 [facility] Comment on above: Performed By: #### C BC #### [facility] [address] [place] [address] Dr. Jesus White PLT 222 103/ul Normal 150-450 [facility] Comment on above: Performed By: #### C BC #### [facility] [address] [place] [address] Dr. Jesus White RBC 4.55 106/ul Critically low 4.70-6.10 [facility] Comment on above: Performed By: #### C BC #### [facility] [address] [place] [address] Dr. Jesus White WBC 9.8 103/ul Normal 4.0-11.0 [facility] Comment on above: Performed By: #### C BC #### [facility] [address] [place] [address] STROKE HEAD WOon [...] ERNA LEON Date: 2022-04-08 18:50 Normal [facility] Covid-19 PCR (CVDTB)on SARS-CoV-2 (COVID-19) RNA PAUL+probe Ql (Unsp spec) Not detected Normal NOT DETECTED [facility] Comment on above: Result Comment: [...] for this test is supported by the [place] of Health and Human Service's declaration that [...] longer be used). Performed By: #### C VDTB #### [facility] [address] [address] [address] Jesus White ETHANOL (BLD ALC)on 04-08-20 22 ALC NOTE NOTE: 80 mg/dl is the legal limit for a blood alcohol level Normal [facility] Comment on above: Performed By: #### E TH ####[facility] [address] [address]Dr. Jesus White Ethanol [Mass/Vol] 344 mg/dL Normal [facility] Comment on above: Performed By: #### E TH ####[facility] [address] [address]Dr. Jesus White PROF 14(COMP METB)on 022 Albumin [Mass/Vol] 3.5 g/dL Normal 3.4-5.[address] [facility] Comment on above: Performed By: #### C JORGE, HSTROPN #### [facility] [address] [address] [address] Jesus White Albumin/Globulin [Mass ratio] 1.0 {ratio} Normal [facility] Comment on above: Performed By: #### C MP, HSTROPN #### [facility] [address] [address] [address] Jesus White ALP [Catalytic activity/Vol] 41 U/L Critically low 46-116 [facility] Comment on above: Performed By: #### C MP, HSTROPN #### [facility] [address] [address] [address] Jesus White ALT [Catalytic activity/Vol] 28 U/L Normal 16-63 [facility] Comment on above: Performed By: #### C MP, HSTROPN #### [facility] [address] [place] [address] Dr. Jesus White Anion gap [Moles/Vol] 12.1 mmol/L Normal [facility] Comment on above: Performed By: #### C MP, HSTROPN #### [facility] [address] [place] [address] Dr. Jesus White AST [Catalytic activity/Vol] 19 U/L Normal 15-37 [facility] Comment on above: Performed By: #### C MP, HSTROPN #### [facility] [address] [place] [address] Dr. Jesus White Bilirubin [Mass/Vol] 0.3 mg/dL Normal 0.2-1.0 [facility] Comment on above: Performed By: #### C MP, HSTROPN #### [facility] [address] [place] [address] Dr. Jesus White Calcium [Mass/Vol] 8.8 mg/dL Normal 8.5-10.[address] [facility] Comment on above: Performed By: #### C MP, HSTROPN #### [facility] [address] [address] [address] Jesus White Chloride [Moles/Vol] 105 mmol/L Normal 98-107 [facility] Comment on above: Performed By: #### C MP, HSTROPN #### [facility] [address] [address] [address] Jesus White CO2 [Moles/Vol] 24.8 mmol/L Normal 21.0-32.0 [facility] Comment on above: Performed By: #### C MP, HSTROPN #### [facility] [address] [address] [address] Jesus White Creatinine [Mass/Vol] 1.53 mg/dL Critically high 0.70-1.30 [facility] Comment on above: Performed By: #### C MP, HSTROPN #### [facility] [address] [place] [address] Dr. Jesus White EGFR-AF SENEGALESE 55 mL/min/1.73m2 Critically low >=60 [facility] Comment on above: Result Comment: Prev iously reported as: (blank) On 04/08/2022 19:15 By [facility] Performed By: #### C MP, HSTROPN #### [facility] [address] [place] [address] Dr. Jesus White EGFR-NON AF SENEGALESE 46 mL/min/1.73m2 Critically low >=60 [facility] Comment on above: Result Comment: Prev iously reported as: (blank) On 04/08/2022 19:15 By [facility] Performed By: #### C MP, HSTROPN #### [facility] [address] [place] [address] Dr. Jesus White Globulin (S) [Mass/Vol] 3.5 g/dL Normal [facility] Comment on above: Performed By: #### C MP, HSTROPN #### [facility] [address] [place] [address] Dr. Jesus White Glucose [Mass/Vol] 116 mg/dL Critically high 74-106 [facility] Comment on above: Performed By: #### C MP, HSTROPN #### [facility] [address] [place] [address] Dr. Jesus White Potassium [Moles/Vol] 3.9 mmol/L Normal 3.5-5.1 [facility] Comment on above: Performed By: #### C JORGE, HSTROPN #### [facility] [address] [address] [address] Jesus White Protein [Mass/Vol] 7.0 g/dL Normal 6.4-8.[address] [facility] Comment on above: Performed By: #### C JORGE, HSTROPN #### [facility] [address] [address] [address] Jesus White Sodium [Moles/Vol] 138 mmol/L Normal 136-[address] [facility] Comment on above: Performed By: #### C JORGE, HSTROPN #### [facility] [address] [address] [address] Jesus White Urea nitrogen [Mass/Vol] 17.0 mg/dL Normal 7.0-18.0 [facility] Comment on above: Performed By: #### C JORGE, HSTROPN #### [facility] [address] [place] [address] Dr. Jesus White Urea nitrogen/Creatinine [Mass ratio] 11.1 mg/mg Normal [facility] Comment on above: Performed By: #### C JORGE, HSTROPN #### [facility] [address] [address] [address] Jesus White PROTIMEon 04-08-2022 INR Coag (PPP) [Relative time] 1.00 {INR} Normal [facility] Comment on above: Performed By: #### P TT, PT ####[facility] [address] [address]Dr. Jesus White INR GUIDELINES SEE BELOW Normal [facility] Comment on above: Result Comment: JULIET RED INR: 2.0 - 3.0 CONDITIONS NOT LISTED BELOW 2.5 - 3.5 FOR PROSTHETIC HEART VALVE REPLACEMENT 2.5 - 3.5 RECURRENT THROMBOSIS Performed By: #### P TT, PT ####[facility] [address] [address]Dr. Jesus White PT Coag (PPP) [Time] 10.8 s Normal 9.0-11.6 [facility] Comment on above: Performed By: #### P TT, PT ####[facility] [address] [address]Dr. Jesus White PTTon 04-08-2022 aPTT Coag (Bld) [Time] 24.8 s Normal 22.3-36.2 [facility] Comment on above: Performed By: #### P TT, PT ####[facility] [address] [id number] White TROPONIN, HIGH SENSITIVITYon 04-08-2022 HSTROP 16.7 pg/mL Normal 4.0-76.1 [facility] Comment on above: Result Comment: CUT- OFF POINTS HAVE BEEN ESTABLISHED BASED ON THE FOURTH UNIVERSAL DEFINITIONS OF MYOCARDIAL INFARCTION. THE UPPER REFERENCE LIMIT (URL) OF TROPONIN, DEFINED THE 99TH PERCENTILE OF cTnI DISTRIBUTION IN A REFERENCE POPULATION, HAS BEEN CONFIRMED THE DECISION THRESHOLD FOR MO DIAGNOSIS. Performed By: #### C MP, HSTROPN #### [facility] [address] [place] [address] Dr. Jesus White PROF CHEM 8 (BAS METB)on Anion gap [Moles/Vol] 13.3 mmol/L Normal [facility] [place] Comment on above: Performed By: #### B MP #### [facility] [address] [place] [address] Dr. Jesus White Calcium [Mass/Vol] 9.7 mg/dL Normal 8.5-10.[address] [facility] Comment on above: Performed By: #### B MP #### [facility] [address] [place] [address] Dr. Jesus White Chloride [Moles/Vol] 103 mmol/L Normal 98-107 [facility] Comment on above: Performed By: #### B MP #### [facility] [address] [place] [address] Dr. Jesus White CO2 [Moles/Vol] 28.4 mmol/L Normal 21.0-32.0 [facility] Comment on above: Performed By: #### B MP #### [facility] [address] [address] [address] Jesus White Creatinine [Mass/Vol] 1.21 mg/dL Normal 0.70-1.30 [facility] Comment on above: Performed By: #### B MP #### [facility] [address] [address] [address] Jesus White EGFR-AF SENEGALESE >60 Normal >=60 [facility] Comment on above: Performed By: #### B MP #### [facility] [address] [address] [address] Jesus White EGFR-NON AF SENEGALESE 60 mL/min/1.73m2 Normal >=60 [facility] Comment on above: Performed By: #### B MP #### [facility] [address] [address] [address] Jesus White Glucose [Mass/Vol] 95 mg/dL Normal 74-106 [facility] Comment on above: Performed By: #### B MP #### [facility] [address] [address] [address] Jesus White Potassium [Moles/Vol] 3.7 mmol/L Normal 3.5-5.1 [facility] Comment on above: Performed By: #### B MP #### [facility] [address] [address] [address] Jesus White Sodium [Moles/Vol] 141 mmol/L Normal 136-[address] [facility] Comment on above: Performed By: #### B MP #### [facility] [address] [address] [address] Jesus White Urea nitrogen [Mass/Vol] 12.0 mg/dL Normal 7.0-18.0 [facility] Comment on above: Performed By: #### B MP #### [facility] [address] [address] [address] Jesus White Urea nitrogen/Creatinine [Mass ratio] 9.9 mg/mg Normal [facility] Comment on above: Performed By: #### B MP #### [facility] [address] [address] [address] Jesus REYES URINE PROFILEon 2 Bilirubin Ql (U) Negative Normal NEGATIVE [facility] Comment on above: Performed By: #### CALEB GOULD ####[facility] [address] [address]Dr. Jesus White Clarity (U) CLEAR Normal CLEAR [facility] Comment on above: Performed By: #### CALEB GOULD ####[facility] [address] [place], [place] [address]Dr. Jesus White Color (U) LT. YELLOW Normal YELLOW [facility] Comment on above: Performed By: #### CALEB GOULD ####[facility] [address] [place], [place] [address]Dr. Jesus DAVED A micrscopic examination will be performed if indicated. Normal [facility] Comment on above: Performed By: #### CALEB GOULD ####[facility] [address] [place], [place] [address]Dr. Jesus White Glucose Ql (U) Negative Normal NEGATIVE [facility] Comment on above: Performed By: #### CALEB GOULD ####[facility] [address] [place], [place] [address]Dr. Jesus White Hemoglobin Ql (U) Negative Normal NEGATIVE [facility] Comment on above: Performed By: #### CALEB GOULD ####[facility] [address] [place], [place] [address]Dr. Jesus White Ketones Ql (U) Negative Normal NEGATIVE [facility] Comment on above: Performed By: #### CALEB GOULD ####[facility] [address] [place], [place] [address]Dr. Jesus White LEUKOCYTES Negative Normal NEGATIVE [facility] Comment on above: Performed By: #### CALEB GOULD ####[facility] [address] [place], [place] [address]Dr. Jesus White Nitrite Ql (U) Negative Normal NEGATIVE [facility] Comment on above: Performed By: #### VALERIO GOULDRO ####[facility] [address] [address]Dr. Carolliseth White pH (U) 6.0 [pH] Normal 5-9 [facility] Comment on above: Performed By: #### VALERIO GOULDRO ####[facility] [address] [address]Dr. Carolliseth Christopher SPEC GRAVITY <=1.005 Abnormal 1.005-<=1.025 [facility] Comment on above: Performed By: #### VALERIO GOULDRO ####[facility] [address] [place], [place] [address]Dr. Jesus White UA PROTEIN Negative Normal NEGATIVE/ TRACE [facility] Comment on above: Performed By: #### VALERIO GOULDRO ####[facility] [address] [place], [place] [address]Dr. Jesus White UR MICRO IND INDICATED Normal [facility] Comment on above: Performed By: #### VALERIO GOULDRO ####[facility] [address] [place], [place] [address]Dr. Jesus White Urobilinogen Qn (U) 0.2 {Dash'U}/dL Normal 0.2 - 1. 0 [facility] Comment on above: Performed By: #### VALERIO GOULDRO ####[facility] [address] [place], [place] [address]Dr. Jesus White URINE MICROSCOPIC ONLYon BACTERIA NONE SEEN Normal NONE SEEN [facility] Comment on above: Performed By: #### VALERIO GOULDRO ####[facility] [address] [place], [place] [address]Dr. Jesus White Bacteria identified Cx Nom (U) NOT INDICATED Normal [facility] Comment on above: Performed By: #### VALERIO GOLUDRO ####[facility] [address] [place], [place] [address]Dr. Jesus White CAST NONE SEEN Normal NONE SEEN [facility] Comment on above: Performed By: #### VALERIO GOULDRO ####[facility] [address] [address]Dr. Jesus White Crystals LM Nom (Urine sed) NONE SEEN Normal NONE SEEN [facility] Comment on above: Performed By: #### Júnior BARNES UMICRO ####[facility] [address] [id number]. Jesus White Epithelial cells LM Ql (Urine sed) RARE Normal NONE SEEN /RARE [facility] Comment on above: Performed By: #### Júnior BARNES UMICRO ####[facility] [address] [address]Dr. Jesus White MUCOUS NONE SEEN Normal NONE SEEN [facility] Comment on above: Performed By: #### Júnior BARNES UMICRO ####[facility] [address] [address]Dr. Jesus White RBC NONE SEEN Abnormal 0-2 [facility] Comment on above: Performed By: #### Júnior BARNES UMSHANAERO ####[facility] [address] [address]Dr. Jesus White WBC NONE SEEN Normal NONE SEEN [facility] Comment on above: Performed By: #### VALERIO GOULDRO ####[facility] [address] [address]Dr. Jesus White US CRYSTAL DOP LEG LTon [...] by: VARSHA BARNARD Date: 2022-01-01 08:49 Normal [facility] Vital Signs Date Time Vital Sign Value Performing Clinician Facility 06-20-2024 09:31-0500 Body height 177.8 cm Nicolle Rodriguez [employer] Work Phone: [facility] 06-20-2024 09:31-0500 Body mass index (BMI) [Ratio] 33.58 kg/m2 Nicolle Rodriguez [employer] Work Phone: [facility] 06-20-2024 09:31-0500 Body temperature 97.7 [degF] Nicolle Rodriguez [employer] Work Phone: [facility] 06-20-2024 09:31-0500 Body weight 106.14 kg Nicolle Rodriguez [employer] Work Phone: [facility] 06-20-2024 09:31-0500 Diastolic blood pressure 76 mm[Hg] Nicolle Rodriguez [employer] Work Phone: [facility] 06-20-2024 09:31-0500 Heart rate 69 /min Nicolle Rodriguez [employer] Work Phone: [facility] 06-20-2024 09:31-0500 Respiratory rate 18 /min Nicolle Rodriguez [employer] Work Phone: [facility] 06-20-2024 09:31-0500 SaO2% (BldA) [Mass fraction] 99 % Nicolle Rodriguez [employer] Work Phone: [facility] 06-20-2024 09:31-0500 Systolic blood pressure 138 mm[Hg] Nicolle Rodriguez [employer] Work Phone: [facility] 05-22-2024 10:51-0500 Body height 177.8 cm Nicolle Rodriguez [employer] Work Phone: [facility] 05-22-2024 10:51-0500 Body mass index (BMI) [Ratio] 32.43 kg/m2 Nicolle Rodriguez [employer] Work Phone: [facility] 05-22-2024 10:51-0500 Body temperature 96.69 [degF] Nicolle Rodriguez [employer] Work Phone: [facility] 05-22-2024 10:51-0500 Body weight 102.51 kg Nicolle Rodriguez [employer] Work Phone: [facility] 05-22-2024 10:51-0500 Diastolic blood pressure 78 mm[Hg] Nicolle Rodriguez [employer] Work Phone: [facility] 05-22-2024 10:51-0500 Heart rate 74 /min Nicolle Rodriguez [employer] Work Phone: [facility] 05-22-2024 10:51-0500 Respiratory rate 18 /min Nicolle Rodriguez [employer] Work Phone: [facility] 05-22-2024 10:51-0500 SaO2% (BldA) [Mass fraction] 97 % Nicolle Rodriguez [employer] Work Phone: [facility] 05-22-2024 10:51-0500 Systolic blood pressure 146 mm[Hg] Nicolle Rodriguez [employer] Work Phone: [facility] 04-23-2024 14:58-0500 Body height 172.7 cm Nicolle Rodriguez [employer] Work Phone: [facility] 04-23-2024 14:58-0500 Body mass index (BMI) [Ratio] 35.58 kg/m2 Nicolle Rodriguez [employer] Work Phone: [facility] 04-23-2024 14:58-0500 Body temperature 97.3 [degF] Nicolle Rodriguez [employer] Work Phone: [facility] 04-23-2024 14:58-0500 Body weight 106.14 kg Nicolle Rodriguez [employer] Work Phone: [facility] 04-23-2024 14:58-0500 Diastolic blood pressure 60 mm[Hg] Nicolle Rodriguez [employer] Work Phone: [facility] 04-23-2024 14:58-0500 Heart rate 62 /min Nicolle Rodriguez [employer] Work Phone: [facility] 04-23-2024 14:58-0500 Respiratory rate 22 /min Nicolle Rodriguez [employer] Work Phone: [facility] 04-23-2024 14:58-0500 SaO2% (BldA) [Mass fraction] 97 % Nicolle Rodriguez [employer] Work Phone: [facility] 04-23-2024 14:58-0500 Systolic blood pressure 130 mm[Hg] Nicolle Rodriguez [employer] Work Phone: [facility] 03-19-2024 08:59-0400 Body mass index (BMI) [Ratio] 33.06 kg/m2 Nicolle Rodriguez [employer] Work Phone: [facility] 03-19-2024 08:59-0400 Body temperature 97.3 [degF] Nicolle Rodriguez [employer] Work Phone: [facility] 03-19-2024 08:59-0400 Body weight 104.51 kg Nicolle Rodriguez [employer] Work Phone: [facility] 03-19-2024 08:59-0400 Diastolic blood pressure 80 mm[Hg] Nicolle Rodriguez [employer] Work Phone: [facility] 03-19-2024 08:59-0400 Heart rate 63 /min Nicolle Rodriguez [employer] Work Phone: [facility] 03-19-2024 08:59-0400 SaO2% (BldA) [Mass fraction] 98 % Nicolle Rodriguez [employer] Work Phone: [facility] 03-19-2024 08:59-0400 Systolic blood pressure 162 mm[Hg] Nicolle Rodriguez [employer] Work Phone: [facility] 01-17-2024 08:08-0400 Blood Pressure Location Will COOK [facility] 01-17-2024 08:08-0400 Diastolic blood pressure 84 mm[Hg] Will COOK [facility] 01-17-2024 08:08-0400 Heart rate 62 /min Will COOK [facility] 01-17-2024 08:08-0400 Respiratory rate 19 /min Will COOK [facility] 01-17-2024 08:08-0400 Systolic blood pressure 151 mm[Hg] Will COOK [facility] 10-17-2023 10:02-0400 Blood Pressure Location Will COOK [facility] 10-17-2023 10:02-0400 Diastolic blood pressure 66 mm[Hg] Will COOK [facility] 10-17-2023 10:02-0400 Heart rate 66 /min Will COOK [facility] 10-17-2023 10:02-0400 Respiratory rate 18 /min Will COOK [facility] 10-17-2023 10:02-0400 Systolic blood pressure 120 mm[Hg] Will COOK [facility] 10-13-2023 13:17-0400 Body height 177.8 cm [facility] 10-13-2023 13:17-0400 Body mass index (BMI) [Ratio] 32.5 kg/m2 [facility] 10-13-2023 13:17-0400 Body temperature 97 [degF] [facility] 10-13-2023 13:170400 Body weight 102.96 kg [facility] 10-13-2023 13:17-0400 Diastolic blood pressure 70 mm[Hg] [facility] 10-13-2023 13:17-0400 Heart rate 74 /min [facility] 10-13-2023 13:17-0400 Respiratory rate 20 /min [facility] 10-13-2023 13:17-0400 SaO2% (BldA) [Mass fraction] 97 % [facility] 10-13-2023 13:17-0400 Systolic blood pressure 120 mm[Hg] [facility] 03-17-2023 15:20-0400 Body height 177.8 cm Jose Julien Other [employer] [facility] [employer] Other 03-17-2023 15:20-0400 Body mass index (BMI) [Ratio] 31.96 kg/m2 Jose Julien Other [employer] [facility] [employer] Other 03-17-2023 15:20-0400 Body temperature 96.9 [degF] Jose Julien Other [employer] Other 03-17-2023 15:20-0400 Body weight 101.06 kg Jose Julien Other [employer] Other 03-17-2023 15:20-0400 Diastolic blood pressure 73 mm[Hg] Jose Julien Other [employer] Other 03-17-2023 15:20-0400 Respiratory rate 18 /min Jose Julien Other [employer] Other 03-17-2023 15:20-0400 SaO2% (BldA) [Mass fraction] 98 % Jose Julien Other [employer] Other 03-17-2023 15:20-0400 Systolic blood pressure 134 mm[Hg] Jose Julien Other [employer] Other 09-30-2022 11:20-0400 Body height 177.8 cm Jose Julien Other [employer] Other 09-30-2022 11:20-0400 Body mass index (BMI) [Ratio] 33.6 kg/m2 Jose Julien Other [employer] Other 09-30-2022 11:20-0400 Body temperature 96.3 [degF] Jose Julien Other [employer] Other 09-30-2022 11:20-0400 Body weight 106.23 kg Jose Julien Other [employer] Other 09-30-2022 11:20-0400 Diastolic blood pressure 64 mm[Hg] Jose Julien Other [employer] Other 09-30-2022 11:20-0400 Respiratory rate 18 /min Jose Julien Other [employer] Other 09-30-2022 11:20-0400 SaO2% (BldA) [Mass fraction] 99 % Jose Julien Other [employer] Other 09-30-2022 11:20-0400 Systolic blood pressure 138 mm[Hg] Jose Julien Other [employer] Other 03-22-2022 14:00-0400 Body height 177.8 cm Jose Julien Other [employer] Other 03-22-2022 14:00-0400 Body mass index (BMI) [Ratio] 33.14 kg/m2 Jose Julien Other [employer] Other 03-22-2022 14:00-0400 Body temperature 95.9 [degF] Jose Julien Other [employer] Other 03-22-2022 14:00-0400 Body weight 104.78 kg Jose Julien Other [employer] Other 03-22-2022 14:00-0400 Diastolic blood pressure 70 mm[Hg] Jose Julien Other [employer] Other 03-22-2022 14:00-0400 Respiratory rate 18 /min Jose Julien Other [employer] Other 03-22-2022 14:00-0400 SaO2% (BldA) [Mass fraction] 97 % Jose Julien Other [employer] Other 03-22-2022 14:00-0400 Systolic blood pressure 119 mm[Hg] Jose Julien Other [employer] Other 06-18-2021 11:40-0500 Body height 177.8 cm Jose Julien Other [employer] Other 06-18-2021 11:40-0500 Body mass index (BMI) [Ratio] 37.22 kg/m2 Jose Julien Other [employer] Other 06-18-2021 11:40-0500 Body temperature 95.9 [degF] Jose Julien Other [employer] Other 06-18-2021 11:40-0500 Body weight 117.66 kg Jose Julien Other [employer] Other 06-18-2021 11:40-0500 Diastolic blood pressure 70 mm[Hg] Jose Julien Other [employer] Other 06-18-2021 11:40-0500 Respiratory rate 18 /min Jose Julien Other [employer] Other 06-18-2021 11:40-0500 SaO2% (BldA) [Mass fraction] 97 % Jose Julien Other [employer] Other 06-18-2021 11:40-0500 Systolic blood pressure 124 mm[Hg] Jose Julien Other [employer] Other Encounters Encounter Date Encounter Type Care Provider Facility Start: 07-23-2024 ambulatory Maribel X Orzech Tex y:[facility] Start: 07-17-2024 End: 07-17-2024 Clinisync Result Encounter Nicolle Rodriguez [employer] Work Phone: [facility] External [facility] Unsolicited Start: 07-17-2024 End: 07-17-2024 Clinisync Result Encounter Nicolle Rodriguez [employer] Work Phone: [facility] External Department Unsolicited Start: 07-17-2024 End: 07-17-2024 ambulatory Will HOLLINS Facility:[facility] Start: 07-17-2024 End: 07-17-2024 Patient encounter procedure Will HOLLINS [facility] Start: 07-10-2024 End: 07-10-2024 Refill Peggy Jacobsen MA [facility] Comment on above: Centrilobular emphys zoila (CMS/HCC); Viral upper respiratory tract infection; Essential (primary) hypertension (CMS/HCC); Gastroesophageal reflux disease with esophagitis without hemorrhage; Malignant (primary) neoplasm, unspecified (CMS/HCC) Start: 06-20-2024 End: 06-20-2024 Bamboo flowsheet Nicolle Rodriguez [employer] Work Phone: [facility] Start: 06-20-2024 End: 06-20-2024 Bamboo flowsheet Nicolle Rodriguez [employer] Work Phone: [facility] Start: 06-20-2024 End: 06-20-2024 Office outpatient visit 15 minutes Nicolle Pinontrick [employer] Work Phone: [facility] Comment on above: Mixed hyperlipidemia (CMS/HCC) [...] 05-22-2024 End: 05-22-2024 Bamboo flowsheet Nicolle Rodriguez [employer] Work Phone: [facility] Start: 05-22-2024 End: 05-22-2024 Bamboo flowsheet Nicolle Pinontrick [employer] Work Phone: [facility] Start: 05-22-2024 End: 05-22-2024 Transitional care manage srvc 7 day discharge Nicolle Smithk [employer] Work Phone: [facility] Comment on above: Fall, subsequent enc ounter (Primary Dx); Hyperuricemia; Hyperlipidemia, unspecified (CMS/HCC); Centrilobular emphysema (CMS/HCC); Chronic right heart failure (HCC) (CMS/HCC); Malignant (primary) neoplasm, unspecified (CMS/HCC); Compression fracture of C3 vertebra with routine healing, subsequent encounter Start: 05-22-2024 End: 05-22-2024 ambulatory NICOLLE RODRIGUEZ Not Available Start: 05-22-2024 End: 05-22-2024 ambulatory Will HOLLINS Facility:[facility] Start: 05-22-2024 End: 05-22-2024 Patient encounter procedure Will HOLLINS [facility] Start: 04-23-2024 End: 04-23-2024 Office outpatient visit 15 minutes Nicolle Smithk [employer] Work Phone: [facility] Comment on above: Bronchitis (Primary Dx); Viral upper respiratory tract infection Start: 04-23-2024 End: 04-23-2024 ambulatory NICOLLE RODRIGUEZ Not Available Start: 04-23-2024 End: 04-23-2024 Bamboo flowsheet Nicolle Pinontrick [employer] Work Phone: [facility] Start: 04-23-2024 End: 04-23-2024 Bamboo flowsheet Nicolle Rodriguez [employer] Work Phone: [facility] Start: 04-18-2024 End: 04-18-2024 Clinisync Result Encounter Generic External Data Provider [facility] External [facility] Unsolicited Start: 04-18-2024 End: 04-18-2024 Clinisync Result Encounter Generic External Data Provider [facility] External [facility] Unsolicited Start: 03-27-2024 End: 03-27-2024 Refill Nicolle Rodriguez [employer] Work Phone: [facility] Comment on above: Hyperlipidemia, unsp ecified (CMS/HCC); Essential (primary) hypertension (CMS/HCC); Hyperuricemia; Gastroesophageal reflux disease with esophagitis without hemorrhage Start: 03-20-2024 End: 03-20-2024 Orders Only Nicolle Smithk [employer] Work Phone: [facility] Comment on above: Acute bacterial sinu sitis (Primary Dx) Start: 03-19-2024 End: 03-19-2024 Bamboo flowsheet Nicolle Pinontrick [employer] Work Phone: [facility] Start: 03-19-2024 End: 03-19-2024 Bamboo flowsheet Nicolle Rodriguez [employer] Work Phone: [facility] Start: 03-19-2024 End: 03-19-2024 Clinisync Result Encounter Nicolle Rodriguez [employer] Work Phone: [facility] External [facility] Unsolicited Start: 03-19-2024 End: 03-19-2024 Office outpatient visit 15 minutes Nicolle Smithk [employer] Work Phone: [facility] Comment on above: Viral upper respirat ory tract infection (Primary Dx); Acute right ankle pain; Centrilobular emphysema (CMS/HCC); Ankle injury, right, initial encounter Start: 03-19-2024 End: 03-19-2024 Refill Nicolle Smithk [employer] ENGINEER Work Phone: [facility] Comment on above: Hyperuricemia Start: 01-17-2024 End: 01-17-2024 ambulatory Will HOLLINS Facility:[facility] Start: 01-17-2024 End: 01-17-2024 Patient encounter procedure Will HOLLINS [facility] Start: 11-24-2023 End: 11-24-2023 ambulatory PATEL FAWWAD Not Available Start: 10-17-2023 End: 10-17-2023 ambulatory PATEL FAWWAD Facility: [place] Start: 10-17-2023 End: 10-17-2023 Patient encounter procedure Will HOLLINS [facility] Start: 10-13-2023 End: 10-13-2023 ambulatory [facility] Work Phone: Start: 10-13-2023 End: 10-13-2023 Patient encounter procedure [facility] [place] Work Phone: Start: 10-04-2023 Non-patient / Non-visit [facility] [employer] Work Phone: Start: 09-28-2023 End: 09-28-2023 ambulatory PATEL FAWWAD Not Available Start: 08-23-2023 End: 08-23-2023 ambulatory PATEL FAWWAD Not Available Start: 05-10-2023 Patient encounter procedure Nicolle Rodriguez NP Work Phone: [facility] Start: 03-17-2023 End: 03-17-2023 ambulatory Jose Julien Other [employer] Other Start: 03-17-2023 Office outpatient vi sit 15 minutes Jose Julien [facility] Start: 10-11-2022 End: 10-12-[address] WILL HOLLINS Facility: Start: 09-30-2022 End: 09-30-2022 ambulatory Jose Julien Other [employer] Other Start: 09-30-2022 Office outpatient vi sit 15 minutes Jose Julien [facility] Start: 08-23-2022 End: 08-24-2022 ambulatory SHAIKH Nancy GAGNON Facility:[facility] Start: 07-05-2022 End: 07-06-2022 ambulatory RUKHSANA AGUILAR . Facility:[facility] Start: 04-08-2022 End: 04-08-[address] COLTEN NUNO . Facility:[facility] Start: 03-24-2022 End: 03-25-2022 ambulatory RUKHSANA SAMSA . Facility:[facility] Start: 03-22-2022 End: 03-22-2022 ambulatory Jose Julien Other [employer] Other Start: 03-22-2022 Office outpatient vi sit 25 minutes Jose Julien [facility] Start: 02-16-2022 End: 02-17-2022 ambulatory PATEL H KALIN Facility:[facility] Start: 01-01-2022 End: 01-01-[address] LUNA DUFFY . Facility:[facility] Start: 06-21-2021 End: 06-21-2021 ambulatory Jose Julien Other [employer] Other Start: 06-21-2021 Telephone encounter Jose Julien [facility] Start: 06-18-2021 End: 06-18-2021 ambulatory Jose Julien Other [employer] Other Start: 06-18-2021 Office outpatient vi sit 25 minutes Jose Julien [facility] Procedures Date Procedure Procedure Detail Performing Clinician Start: 07-17-2024 ALL CBC WITH AUTO DIFF Nicolle Rodriguez [employer] ENGINEER Work Phone: Start: 04-18-2024 MHPT PSA, DIAGNOSTIC Ge neric External Data Provider Start: 03-19-2024 SARS-COV-2 AG* Nicolle Rodriguez [employer] ENGINEER Work Phone: Start: 03-19-2024 [facility] INFLUENZA A AND B AG Nicolle Rodriguez NP Work Phone: Start: 10-11-[address] WINIFRED HOLLINS Comment on above: Performed By: #### P SAD ####[facility] [id number] [place] [id number]. Jesus Whiet Start: 03-24-2011 Brachytherapy Will PIZARRO Start: 06-06-2000 Excision of left kidney Will HOLLINS Cataract (disorder) Will HOLLINS Extraction of wisdom tooth G kerry HOLLINS History of hernia repair Eri HOLLINS Plan of Treatment Date Care Activity Detail Author Start: 09-22-2026 Screening for malign ant neoplasm of colon [facility] Start: 09-18-2024 End: 09-18-2024 Patient encounter procedure 09/18/2024 9:30 AM EDT Office Visit [facility] [address] [place] [address] Nicolle Rodriguez, NIC [address] [place] [address] [facility] Start: 06-20-2024 End: 06-20-2025 CBC W Auto Differential panel - Blood CBC and differential Lab Routine Mixed hyperlipidemia (CMS/HCC) Stage 3a chronic kidney disease (HCC) (CMS/HCC) Primary hypertension (CMS/HCC) Expected: 06/20/2024 (Approximate), Expires: 06/20/2025 [facility] Comment on above: Expected: 06/20/2024 (Approximate), Expires: 06/20/2025 Start: 06-20-2024 End: 06-20-2025 Comprehensive metabolic 2000 panel - Serum or Plasma Comprehensive metabolic panel Lab Routine Mixed hyperlipidemia (CMS/HCC) Stage 3a chronic kidney disease (HCC) (CMS/HCC) Primary hypertension (CMS/HCC) Expected: 06/20/2024 (Approximate), Expires: 06/20/2025 [facility] Comment on above: Expected: 06/20/2024 (Approximate), Expires: 06/20/2025 Start: 06-20-2024 End: 06-20-2025 Lipid 1996 panel - Serum or Plasma Lipid panel Lab Routine Mixed hyperlipidemia (CMS/HCC) Expected: 06/20/2024 (Approximate), Expires: 06/20/2025 [facility] Work Phone: Comment on above: Expected: 06/20/2024 (Approximate), Expires: 06/20/2025 Start: 06-20-2024 End: 06-20-2024 Patient encounter procedure 06/20/2024 9:30 AM EST Office Visit [facility] [address] [place] [address] Nicolle Rodriguez, VMWARE ENGINEER [address] [place] [phone] Arrived [facility] Comment on above: Arrived Start: 06-19-2024 End: 06-19-2024 Patient encounter procedure 06/19/2024 9:30 AM EST Office Visit [facility] [address] [place] [address] Nicolle Rodriguez, VMWARE ENGINEER [address] [place] [address] [facility] Start: 05-22-2024 End: 05-22-2024 Patient encounter procedure 05/22/2024 11:00 AM EST Office Visit [facility] [address] [place] [phone] Nicolle Rodriguez, VMWARE ENGINEER [address] [place] [address] Arrived [facility] Comment on above: Arrived Start: 05-10-2024 Medicare Annual Wellness (AWV) Medicare Annual Wellness (AWV) [facility] Start: 04-23-2024 End: 04-23-2024 Patient encounter procedure 04/23/2024 3:00 PM EST Office Visit [facility] [address] [place] [phone] Nicolle Rodriguez VMWARE ENGINEER [address] [place] [address] Arrived [facility] Comment on above: Arrived Start: 03-19-2024 End: 03-19-2025 COVID-19 / FLU A/B / RSV PCR ([facility]) COVID-19 / FLU A/B / RSV PCR ([facility]) Lab Routine Viral upper respiratory tract infection Expected: 03/19/2024 (Approximate), Expires: 03/19/2025 [facility] Work Phone: Comment on above: Expected: 03/19/2024 (Approximate), Expires: 03/19/2025 Start: 03-19-2024 End: 03-19-2024 Patient encounter procedure 03/19/2024 9:00 AM EDT Office Visit [facility] [address] [place] [address] Nicolle Rodriguez, VMWARE ENGINEER [address] [place] [address] Arrived [facility] Comment on above: Arrived Start: 02-05-2024 Influenza vaccination Influenza Vacc ine (#1) [facility] Start: 02-21-1961 Pneumococcal Vaccine : 65+ Years (1 of 2 - PCV) Pneumococcal Vaccine: 65+ Years (1 of 2 - PCV) [facility] Start: 1955 Screening for malign ant neoplasm of colon [facility] Microalbumin/Creatin ine panel in random Urine Microalbumin / creatinine urine ratio Lab Routine Primary hypertension (CMS/HCC) Ordered: 06/20/2024 [facility] Comment on above: Ordered: 06/20/2024 Renal function 2000 panel - Serum or Plasma [facility] XR Ankle - right 3 Views XR ankle 3+ views right Imaging Routine Acute right ankle pain Ordered: 03/19/2024 [facility] Comment on above: Ordered: 03/19/2024 [facility] Immunizations Immunization Date Immunization Notes Care Provider Blake blair 03-17-2023 influenza virus vaccine, unspecified formulation Will GURVINDER [facility] 03-17-2023 Influenza, High-dose Seasonal, Quadrivalent, Preservative Free Nicolle Rodriguez VMWARE ENGINEER Work Phone: [facility] 03-27-2022 influenza virus vaccine, unspecified formulation Will Caring in Place [facility] 03-27-2022 Influenza, High-dose Seasonal, Quadrivalent, Preservative Free Nicolle Rodriguez VMWARE ENGINEER Work Phone: [facility] 05-27-2021 SARS-CoV-2 (COVID-19 ) mRNA-1273 vaccine WillPartnerpedia [facility] Comment on above: Result Comment: [facility] 03-26-2021 influenza virus vaccine, unspecified formulation Will HOLLINS [facility] 03-26-2021 Influenza, High-dose Seasonal, Quadrivalent, Preservative Free Nicolle Rodriguez VMWARE ENGINEER Work Phone: [facility] 11-21-2020 SARS-CoV-2 (COVID-19 ) mRNA-1273 vaccine WillPartnerpedia [facility] 10-16-2020 SARS-CoV-2 (COVID-19 ) mRNA-1273 vaccine [address] [facility] 02-05-2020 influenza virus vaccine, unspecified formulation Will HOLLINS [facility] 05-14-2014 influenza virus vaccine, unspecified formulation Will HOLLINS [facility] 05-14-2014 influenza, seasonal, injectable Nicolle Rodriguez NP Work Phone: [facility] Payers Date Payer Category Payer Medicaid [id number] 2012 Medicaid [place] Advantage [id number] 1959 Medicare [id number] [id number] 1956 Unknown [id number] 2.16.840.1.082058.3.579.2.593 1956 Unknown [id number] 2.16.840.1.385680.3.579.2.593 1956 Unknown [id number] 2.16.840.1.644602.3.579.2.593 1956 Unknown [id number] 2.16.840.1.111702.3.579.2.593 1956 Unknown [id number] 2.16.840.1.609299.3.579.2.593 1956 Unknown [id number] 2.16.840.1.061144.3.579.2.593 1956 Unknown [id number] 2.16.840.1.034137.3.579.2.593 1956 Unknown [id number] 2.16.840.1.466315.3.579.2.593 1956 Unknown [id number] 2.16.840.1.734516.3.579.2.1259 1956 Unknown [id number] 2.16.840.1.483476.3.579.2.1259 1956 Unknown [id number] 2.16.840.1.268264.3.579.2.1259 1956 Unknown [id number] 2.16.840.1.828813.3.579.2.125 1956 Unknown [id number] 2.16.840.1.873419.3.579.2.1259 1956 Unknown [id number] 2.16.840.1.495337.3.579.2.1258 1956 Unknown [id number] 2.16.840.1.126378.3.579.2.1259 1956 Unknown [id number] 2.16.840.1.239983.3.579.2.727 1956 Unknown [id number] 2.16.840.1.134621.3.579.2.727 1956 Unknown [id number] 2.16.840.1.531612.3.579.2.727 1956 Unknown [id number] 2.16.840.1.921302.3.579.2.727 1956 Unknown [id number] 2.16.840.1.840404.3.579.2.727 Medicaid [employer] [id number] Self-pay Self Pay [id number] Unknown [employer] Just For Mi GHAZALA [id number] Social History Date Type Detail Facility Unknown if ever smoked [employer] Other Start: 05-10-2023 End: 11-24-2023 Sex Assigned At [facility] Start: 10-13-2023 [facility] Start: 1955 Sex Assigned At [facility] Start: 10-17-2023 End: 01-17-2024 Tobacco smoking status Light tobacco smoker (finding) [facility] Tobacco smoking status Never [facility] Start: 11-24-2023 [facility] Sm[facility] tobacco daily [facility] History of [...] To some extent [facility] (I/We) worried wheulises er (my/our) food would run out before (I/we) got money to buy more. Never true [facility] Start: 05-06-2023 Alcohol Comment caffene: 1-2 c ups per day [facility] Start: 1955 Sex assigned at Not on file [facility] Functional Status Date Assessment Result Facility 01-17-2024 Functional Status N/A [facility] 10-17-2023 Functional Status N/A [facility] Clinical Notes 06-18-2021 to 07-10-2024 Telephone Encounter - Peggy Jacobsen MA - 07/10/2024 10:13 AM ESTTelephone Encounter - Peggy Jacobsen MA - 07/10/2024 10:13 AM Chai Rodriguez NP - 06/20/2024 9:49 AM ESTPatient Instructions Note Date & Type Note Facility 07-10-2024 Miscellaneous Notes ROBYN:06/20/2024 NOV:09/18/2024 documented in this encounter [facility] 07-10-2024 Telephone encounter Note ROBYN:06/20/2024 NOV:09/18/2024 [facility] 06-20-2024 History of Presen t illness Narrative Associated Problem(s): 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 Aguilar. Has had multiple hospitalizations this year due [...] current regimen. MATILDA: Follows closely with Dr. Aguilar. Has had multiple hospitalizations this year due [...] with emphysema ([facility]) Follows closely with Dr. Aguilar. Has had multiple hospitalizations this year due to exacerbations. Is still a current 0.5ppd smoker. Currently taking Symbicort Atrovent Albuterol. Continue current regimen as directed by pulmonology. Relevant Medications albuterol HFA 90 mcg/act inhaler budesonide-formoterol (Symbicort) 160-4.5 MCG/ACT inhaler Mixed hyperlipidemia ([facility]) - Primary Relevant Orders Lipid panel Comprehensive metabolic panel CBC and differential Primary hypertension ([facility]/HCC) Currently taking Losartan 50mg Furosemide 20mg Metoprolol [...] Chronic kidney disease, stage 3 unspecified (HCC) (CMS/[facility]) Relevant Orders Comprehensive metabolic panel CBC and differential Other Visit Diagnoses Hyperuricemia Relevant Medications allopurinol (Zyloprim) 100 MG tablet Hyperlipidemia, unspecified (CMS/HCC) Relevant Medications atorvastatin (Lipitor) 40 MG tablet Other Relevant Orders Lipid panel Comprehensive metabolic panel CBC and differential Chronic right heart failure (HCC) (CMS/[facility]) Relevant Medications furosemide (Lasix) 20 MG tablet Essential (primary) hypertension (CMS/HCC) Relevant Medications losartan (Cozaar) 50 MG tablet metoprolol tartrate (Lopressor) 25 MG tablet Gastroesophageal reflux disease with esophagitis without hemorrhage Relevant Medications omeprazole (PriLOSEC) [address] capsule Malignant (primary) neoplasm, unspecified (CMS/HCC) Relevant Medications tamsulosin (Flomax) 0.4 MG 24 hr capsule documented in this encounter [facility] 05-22-2024 Hospital Discharg e instructions Follow Up Care 05/22/2024 09:56:54 With:GURVINDER HENDRICKSON, Will Day, URL Address: [address] [address]- When: Unknown [facility] [place] 05-22-2024 History of Presen t illness Narrative [...] with emphysema ([facility]) Was admitted at [facility] on 05/08 for COPD exacerbation. Was discharged on 05/09/2024. Was treated with Levaquin 750mg And prednisone. Is still smoking 0.5ppd outside. Has not followed up with Structural Steel Worker Helper-Dr. Aguilar since discharge. States he feekls he has [...] for Hospital Follow-up. HPI Was admitted at [facility] on 05/08 for COPD exacerbation. Was discharged on 05/09/2024. Was treated with Levaquin 750mg And prednisone. Is still smoking 0.5ppd outside. Has not followed up with Structural Steel Worker Helper-Dr. Aguilar since discharge. States he feekls he has [...] with emphysema ([facility]/HCC) Was admitted at [facility] on 05/08 for COPD exacerbation. Was discharged on 05/09/2024. Was treated with Levaquin 750mg And prednisone. Is still smoking 0.5ppd outside. Has not followed up with Structural Steel Worker Helper-Dr. Aguilar since discharge. States he feekls he has [...] 24 hr capsule documented in this encounter [facility] 05-22-2024 Instructions Nicolle Rodriguez NP - 05/22/2024 11:00 AM EST Please follow up with Dr. Bob ramires! Severe pain, numbness, tingling, headaches, loss of bowel or bladder function GO TO ER! Shortness of breath, wheezing, chest pain GO TO ER! documented in this encounter [facility] 04-24-2024 History of Presen t illness [...] 69 y.o. male who presents for Follow-up ([facility] er f/up URI). HPI Was seen [...] 20 MG tablet documented in this encounter [facility] 04-23-2024 Instructions Nicolle Rodriguez NP - [...] NEAREST EMERGENCY DEPARTMENT. documented in this encounter [facility] 03-19-2024 History of Presen t illness [...] (Injury 2 weeks ago with ankle ). [facility] Pulmonology- Dr. Aguilar Cardiology- Dr. Hicksr Urology- Dr. Hollins Sinus [...] (chronic obstructive pulmonary disease) with emphysema (CMS/HCC) URI (upper respiratory infection) - Primary Sinus congestion, runny nose, body aches X10 days. Discussed likely viral etiology. Ordered COVID/Flu/RSV panel. Recommended rest, fluids, OTC management for now. Relevant Orders COVID-19 / FLU A/B / RSV PCR ([facility]) Ankle injury, right, initial [...] 3+ views right documented in this encounter [facility] 03-19-2024 Instructions Nicolle Rodriguez NP - [...] NEAREST EMERGENCY DEPARTMENT. documented in this encounter [facility] 01-17-2024 Hospital Discharg e instructions Patient [...] if anything looks unusual. Men with a dbvdna-jtkz-jrlfzp risk for skin cancer may want to see a gas specialist (automatic machine attendant) for an annual body check. What are the benefits of screening? Cancer screening is done to look for cancer in the very early stages, before it spreads and becomes harder to treat and before you would start to notice symptoms. Finding cancer early improves the chances of successful treatment. It may save your life. Where to find more information [employer]: www.cancer.org Centers for Disease Control and Prevention: www.cdc.gov National Cancer [place]: www.cancer.gov Contact a health care provider if: [...] provider. Document Revised: 10/19/2021 Document Reviewed: 04/18/2020 Elsevier Patient Education 2022 [employer] Follow Up Care 10/17/2023 10:47:32 With:GURVINDER HENDRICKSON, Will Day, URL Address: [address] [address]- When: Unknown [facility] [place] 08-13-2024 Note Patient Education Oncology Cancer Screening for [...] if anything looks unusual. Men with a hodesb-tlbs-pextqn risk for skin cancer may want to see a gas specialist (automatic machine attendant) for an annual body check. What are the benefits of screening? Cancer screening is done to look for cancer in the very early stages, before it spreads and becomes harder to treat and before you would start to notice symptoms. Finding cancer early improves the chances of success (more content not included)... [facility] 10-17-2023 Hospital Discharg e instructions Patient [...] the likelihood that the cancer will spread. [place] 6 or lower: This indicates that the [...] stress of having cancer. General instructions Take futu-mzz-whesfhd and prescription medicines only as told by your health care provider. If you have to go to the hospital, notify your cancer specialist (oncologist). Keep all follow-up visits. This is important. Where to find more information [employer]: www.cancer.org [employer] Society of Clinical Oncology: www.cancer.net National Cancer [place]: www.cancer.gov Contact a health care provider if: [...] provider. Document Revised: 08/19/2021 Document Reviewed: 08/19/2021 [employer] Patient Education 2022 [employer]. Follow Up Care 10/15/2022 10:10:00 With:GURVINDER HENDRICKSON, Will Day, URL Address: [facility] [address] [place], [place] [phone]- When: Unknown [facility] [place] 03-17-2023 Evaluation note Encounter Date [...] Monitor LFTs and lipid profile with PCP. [employer] Other 04-27-2023 Evaluation note* Encounter Date Diagnosis [...] have gout. I have prescribed oral Allopurinol [employer] Other 10-17-2022 Evaluation note* Encounter Date Diagnosis Assessment Notes Treatment Notes Treatment Clinical Notes Mar, Joseph glasgow w cr kid I-IV (ICD-10 - I12.9) [...] have gout. I have prescribed oral Allopurinol [employer] Other 07-29-2022 NotePROCEDURE: XR FEMUR LT HISTORY: [...] Electronically authenticated by: LUCAS GOLDSTEIN Date: 2022-01-01 08:35[facility]01-13-2022 Evaluation note* Encounter Date Diagnosis Assessment Notes [...] Q60.0) He has a solitary right kidney. [employer] Other Evaluation + Plan note Future Appointments Appointment Date:01/16/2024 09:45:00 AM Scheduled Provider:Will HOLLINS MD Location:[facility] Appointment Type:URO Office Visit Diagnostic Tests Pending * PSA Total 11/05/23 [facility] Evaluation + Plan note Future Appointments Appointment Date:05/22/2024 09:30:00 AM Scheduled Provider:Will HOLLINS MD Location:[facility] Appointment Type:URO Office Visit Diagnostic Tests Pending * PSA Total 01/17/24 [facility] evaluation + Plan note Future Appointments Appointment Date:07/17/2024 08:30:00 AM Scheduled Provider:Will HOLLINS MD Location:[facility] Appointment Type:URO Office Visit [facility] evaluation + Plan note Future Appointments Appointment Date:07/23/2024 12:30:00 PM Scheduled Provider:AME Henry APRN, [place] X Location:[facility] Appointment Type:URO Office Visit [facility] evaluation noteNo [employer] Other evaluation note* Diagnosis Onset Date Resolution Status Anemia of renal disease acut e CKD (chronic kidney disease) stage 3, GFR 30-59 ml/min acute Hyperlipidemia acute [id number] acute Hyperuricemia acute Hypomagnesemia acute Secondary hyperparathyroidism acute Solitary kidney, acquired ac crystal [facility] Work Phone: evaluation note* Diagnosis Primary hypertension [...] healing, subsequent encounter documented in this encounter [facility] HealthcareEvaluation note* Diagnosis Primary hypertension (CMS/HCC)- Primary [...] neoplasm, unspecified (CMS/HCC) documented in this encounter [facility] HealthcareEvaluation note* Diagnosis Primary hypertension (CMS/HCC)- Primary [...] encounter [facility] Narrative - ReportedNort [employer] Other History general Narrative - Reported* Type [...] BLOOD PRESSURE WAS 60/40 , DEHYDRATION 04/2021 [employer] Other [employer] general Narrative - Reported* Type Description Date [...] BLOOD PRESSURE WAS 60/40 , DEHYDRATION 04/2021 [employer] Other [employer] general Narrative - Reported* Type Description Date [...] BLOOD PRESSURE WAS 60/40 , DEHYDRATION 04/2021 [employer] Other Hospital course Narrative No data available for this section [facility] [place] [employer] Hospital Discharge instructions No data available for this section [facility] [place] [employer] Progress note No data available for this section [facility] [place] [employer] Summary Purpose Family History No Family History [...] disease) stage 3, GFR 30-59 ml/min Hyperlipidemia [id number] Hyperuricemia Hypomagnesemia Secondary hyperparathyroidism Solitary kidney, acquired Additional Source Comments REASON FOR VISIT (unrecogniz ed section and content) Reason Onset Date Comments Med Refill 07/10/2024 Reason Comments Hospital Follow-up Reason Comments Follow-up [facility] er f/up URI Reason Onset Date [...] pital DATE CREATED AUTHOR AUTHOR'S ORGANIZ ATION 06/23/2024 [facility] dical Specialists EPIC DATE CREATED AUTHOR AUTHOR'S ORGANIZ ATION 07/19/2024 Nova Brannon [facility] Care Teams (unrecognized sec tion and content) [...] October 13, 2023 End: October 13, 2023 Parent Trainer Relationship Specialty Start Date End Date Shaikh Gagnon MD [address] [place] [address] PCP - [employer] 06/06/23 Rm Rainey MD [address] [place] [phone] PCP - General Family Medicine 01/16/24 Nicolle Rodriguez NP [address] [place] [address] Nurse Practitioner Family Medicine 01/16/24 Parent Trainer Relationship Specialty Start Date End Date Shaikh Gagnon MD [address] [place] [phone] PCP - [employer] 06/06/23 Rm Rainey MD [address] [place] [phone] PCP - General Family Medicine 01/16/24 Nicolle Rodriguez NP [address] [place] [address] Nurse Practitioner Family Medicine 01/16/24 Parent Trainer Relationship Specialty Start Date End Date Shaikh Gagnon MD [address] [place] [phone] PCP - [employer] 06/06/23 Rm Rainey MD [address] [place] [phone] PCP - General Family Medicine 01/16/24 Nicolle Rodriguez NP [address] [place] [address] Nurse Practitioner Family Medicine 01/16/24 Parent Trainer Relationship Specialty Start Date End Date Shaikh Gagnon MD [address] [place] [phone] PCP - [employer] 06/06/23 Rm Rainey MD [address] [place] [address] PCP - General Family Medicine 01/16/24 Nicolle Rodriguez NP [address] [place] [address] Nurse Practitioner Family Medicine 01/16/24 Parent Trainer Relationship Specialty Start Date End Date Shaikh Gagnon MD [address] [place] [phone] PCP - [employer] 06/06/23 Rm Rainey MD [address] [place] [phone] PCP - General Family Medicine 01/16/24 Nicolle Rodriguez NP [address] [place] [phone] Nurse Practitioner Family Medicine 01/16/24 Parent Trainer Relationship Specialty Start Date End Date Shaikh Gagnon MD [address] [place] [phone] PCP - [employer] 06/06/23 Unallocated, Jyoti Pink MD [address] [facility] [place] [address] PCP - General Family Medicine 03/20/24 Nicolle Rodriguez NP [address] [place] [phone] Nurse Practitioner Family Medicine 01/16/24 Parent Trainer Relationship Specialty Start Date End Date Shaikh Gagnon MD [address] [place] [phone] PCP - [employer] 06/06/23 Rm Rainey MD [address] [place] [phone] PCP - General Family Medicine 04/05/24 Nicolle Rodriguez NP [address] [place] [phone] Nurse Practitioner Family Medicine 01/16/24 Parent Trainer Relationship Specialty Start Date End Date Shaikh Gagnon MD [address] [place] [address] PCP - [employer] 06/06/23 Rm Rainey MD [address] [place] [address] PCP - General Family Medicine 04/05/24 Nicolle Rodriguez NP [address] [place] [address] Nurse Practitioner Family Medicine 01/16/24 Parent Trainer Relationship Specialty Start Date End Date Shaikh Gagnon MD [address] [place] [phone] PCP - [employer] 06/06/23 Rm Rainey MD [address] [place] [address] PCP - General Family Medicine 04/05/24 Nicolle Rodriguez NP [address] [place] [address] Nurse Practitioner Family Medicine 01/16/24 Parent Trainer Relationship Specialty Start Date End Date Shaikh Gagnon MD [address] [place] [address] PCP - [employer] 06/06/23 Rm Rainey MD [address] [place] [phone] PCP - General Family Medicine 04/05/24 Nicolle Rodriguez NP [address] [place] [address] Nurse Practitioner Family Medicine 01/16/24 Parent Trainer Relationship Specialty Start Date End Date Shaikh Gagnon MD [address] [place] [phone] PCP - [employer] 06/06/23 Rm Rainey MD [address] [place] [phone] PCP - General Family Medicine 04/05/24 Nicolle Rodriguez NP [address] [place] [address] Nurse Practitioner Family Medicine 01/16/24 Parent Trainer Relationship Specialty Start Date End Date Shaikh Gagnon MD [address] [place] [phone] PCP - [employer] 06/06/23 Rm Rainey MD [address] [place] [phone] PCP - General Family Medicine 04/05/24 Nicolle Rodriguez NP [address] [place] [address] Nurse Practitioner Family Medicine 01/16/24 Parent Trainer Relationship Specialty Start Date End Date Shaikh Gagnon MD [address] [place] [address] PCP - [employer] 06/06/23 Rm Rainey MD [address] [place] [address] PCP - General Family Medicine 04/05/24 Nicolle Rodriguez NP [address] [place] [address] Nurse Practitioner Family Medicine 01/16/24 Parent Trainer Relationship Specialty Start Date End Date Shaikh Gagnon MD [address] [place] [phone] PCP - [employer] 06/06/23 Rm Rainey MD [address] [place] [phone] PCP - General Family Medicine 04/05/24 Nicolle Rodriguez NP [address] [place] [address] Nurse Practitioner Family Medicine 01/16/24 Parent Trainer Relationship Specialty Start Date End Date Shaikh Gagnon MD [address] [place] [address] PCP - [employer] 06/06/23 Rm Rainey MD [address] [place] [address] PCP - General Family Medicine 04/05/24 Nicolle Rodriguez NP [address] [place] [address] Nurse Practitioner Family Medicine 01/16/24 Goals (unrecognized [...] BE BASED ON THE PRIMARY CLINICAL RECORDS. [employer] provides no warranty or guarantee of the accuracy or completeness of information in this document.
--- NOTE | 2024-07-20 16:37 | ED_ITS ---
HPI HPI - General Adult General Chief complaint: Fever Stated complaint: FEVER, FLU LIKE SYMPTOMS Time Seen by Provider: 07/20/24 16:36 Source: patient and family Mode of arrival: Wheelchair History of Present Illness HPI narrative: Patient is a 69-year-old male who is presenting to the ER with chief complaint of cough, congestion, sinus pressure, productive yellow cough, sore throat. Patient does not have a history of emphysema or COPD. Patient has been taking kbuy-jfc-cnuzuwz Coricidin, aspirin, some ixia-sgl-oghgqhy cough medication with little relief. Patient lives at home with his , patient's has cancer, but no other sick contacts that patient has been around. He has no inhaler or nebulizer machines at home. All systems are negative except as noted/marked. All systems reviewed and otherwise negative. Nurses note and vital signs reviewed and patient is not hypoxic. General: The patient appears well and in no apparent distress. Patient is resting comfortably on cart. Patient is not toxic, lethargic, or listless. Patient is coughing throughout exam, moist cough. Patient states that is productive yellowish at home. Skin: Warm, dry, no pallor noted. There is no rash noted. No petechiae, purpura. Head: Normocephalic, atraumatic; bilateral frontal and maxillary sinus tenderness to palpation Eye: Normal conjunctiva, no drainage, EOMI. PERRL Ears, Nose, Mouth, and Throat: oral mucosa is moist. , Patient has yellowish/whitish sputum noted to the posterior pharynx. Patient has no unilateral swelling, no obvious signs of peritonsillar abscess, no posterior pharyngeal petechiae or exudate. Airways patent. Patient tolerating secretions well. No trismus. Patient has clear/yellowish drainage noted to the posterior pharynx. Patient has mod cobblestoning to the posterior pharynx. No bilateral anterior or posterior cervical lymphadenopathy. Nares patent. Mouth without vesicles. Cardiovascular: Regular Rate and Rhythm, no murmur, gallop, rub Respiratory: Patient is in no distress, no accessory muscle use, lungs are clear to auscultation, no wheezing, rales or rhonchi Back: non-tender, no CVA tenderness bilaterally to percussion. No CT LS midline pain GI: Obese, no tenderness to palpation, no masses appreciated. No rebound, guarding, or rigidity noted. No distention Musculoskeletal: Patient has full range of motion of all of the extremities, no motor, sensory, or focal neurological deficits Neurological: A&O x4, normal speech Psychiatric: Cooperative Related Data Home Medications ?Medication ?Instructions ?Recorded ?Confirmed budesonide-formoterol HFA 160 1 inh inhalation Q12H 04/02/23 05/16/24 mcg-4.5 mcg/actuation aerosol inhaler (Symbicort) losartan 50 mg tablet 50 mg PO DAILY 04/02/23 05/16/24 metoprolol tartrate 25 mg tablet 25 mg PO Q12H 04/02/23 05/16/24 tamsulosin 0.4 mg capsule 0.4 mg PO Q24H 04/02/23 05/17/24 allopurinol 100 mg tablet 100 mg PO BID 04/12/24 05/16/24 atorvastatin 40 mg tablet 40 mg PO QDAY 04/12/24 05/16/24 omeprazole 40 mg capsule,delayed 40 mg PO QDAY 04/12/24 05/16/24 release fluticasone propionate 50 1 spray intranasal QDAY 05/07/24 05/16/24 mcg/actuation nasal spray,suspension albuterol sulfate 90 mcg/actuation 2 puff inhalation Q4H PRN 05/16/24 05/17/24 aerosol inhaler shortness of breath or wheezing furosemide 20 mg tablet 20 mg PO .QD 05/17/24 05/17/24 Previous Rx's ?Medication ?Instructions ?Recorded albuterol sulfate 90 mcg/actuation 2 inh inhalation Q4H PRN shortness 07/20/24 aerosol inhaler of breath or wheezing 7 days #8.5 grams benzonatate 100 mg capsule 200 mg (2 x 100 mg) PO TID PRN 07/20/24 cough #20 caps hbimcrxstefisdb-rlqisnwtfsmnvqo-UP 10 ml PO Q6H PRN cold symptoms 07/20/24 2 mg-30 mg-10 mg/5 mL oral syrup #200 mL (Bromfed DM) doxycycline hyclate 100 mg tablet 100 mg PO BID 10 days #20 tabs 07/20/24 methylprednisolone 4 mg tablets in 4 mg PO DAILY 6 days #21 ea 07/20/24 a dose pack (ioSemanticsrol (Shravan)) Allergies Allergy/AdvReac Type Severity Reaction Status Date / Time No Known Drug Allergies Allergy Verified 07/20/24 16:14 Opioid HPI Opioid Management Most Recent Opioid Data: Last Pain Scale 3 05/17/24 09:52 05/17/24 Last Pain Intensity 3 05/17/24 09:52 05/17/24 Last ORT Total Score 3 05/17/24 01:24 05/17/24 Last ORT Risk Category Low Risk 05/17/24 01:24 05/17/24 Ur Phencyclidine Scrn Negative (NEGATIVE) 05/08/24 14:00 1208/27 PFSH [facility] Medical History (Updated 07/20/24 @ 17:59 by Jensen Hood MD) Compression fracture of C3 vertebra ?S12.290A - Other displaced fracture of third cervical vertebra, initial enc ounter for closed fracture (ICD-10) Osteophyte of cervical spine ?M25.78 - Osteophyte, vertebrae (ICD-10) Chronic renal disease ?N18.9 - Chronic kidney disease, unspecified (ICD-10) Alcohol intoxication ?F10.929 - Alcohol use, unspecified with intoxication, unspecified (ICD-10) Contusion of face ?S00.83XA - Contusion of other part of head, initial encounter (ICD-10) Fall from standing ?W19.XXXA - Unspecified fall, initial encounter (ICD-10) COPD exacerbation ?J44.1 - Chronic obstructive pulmonary disease with (acute) exacerbation (ICD-10) Bilateral pneumonia ?J18.9 - Pneumonia, unspecified organism (ICD-10) ETOH abuse ?F10.10 - Alcohol abuse, uncomplicated (ICD-10) Chest pain ?R07.9 - Chest pain, unspecified (ICD-10) CKD (chronic kidney disease) stage 2, GFR 60-89 ml/min ?N18.2 - Chronic kidney disease, stage 2 (mild) (ICD-10) HLD (hyperlipidemia) ?E78.5 - Hyperlipidemia, unspecified (ICD-10) Hematemesis with nausea ?K92.0 - Hematemesis (ICD-10) Chronic back pain ?M54.9 - Dorsalgia, unspecified (ICD-10) ?G89.29 - Other chronic pain (ICD-10) Alcohol abuse, in remission ?F10.11 - Alcohol abuse, in remission (ICD-10) Type 2 diabetes mellitus ?E11.9 - Type 2 diabetes mellitus without complications (ICD-10) COPD (chronic obstructive pulmonary disease) ?J44.9 - Chronic obstructive pulmonary disease, unspecified (ICD-10) Sleep apnea ?G47.30 - Sleep apnea, unspecified (ICD-10) Hypertension ?I10 - Essential (primary) hypertension (ICD-10) 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) Hiatal hernia ?K44.9 - Diaphragmatic hernia without obstruction or gangrene (ICD-10) Inguinal hernia bilateral, non-recurrent ?K40.20 - Bilateral inguinal hernia, without obstruction or gangrene, not specified as recurrent (ICD-10) Influenza ?J11.1 - Influenza due to unidentified influenza virus with other respiratory manifestations (ICD-10) Giardia ?A07.1 - Giardiasis [lambliasis] (ICD-10) CMV (cytomegalovirus) ?B25.9 - Cytomegaloviral disease, unspecified (ICD-10) Rheumatic fever ?I00 - Rheumatic fever without heart involvement (ICD-10) Prostate cancer ?C61 - Malignant neoplasm of prostate (ICD-10) Surgical History [place] teeth extracted ?K08.409 - Partial loss of teeth, unspecified cause, unspecified class (ICD- 10) History of nephrectomy, left ?Z90.5 - Acquired absence of kidney (ICD-10) Family History (System 04/13/24 @ 09:45 by Farhana Chirinos) Other Family history of cancer Family history of diabetes mellitus Social History (Updated 05/08/24 @ 03:14 by Anabel Key RN) Within the past year, how often did you have a drink containing alcohol: 2-4 times a month Within the past year, how many standard drinks containing alcohol did you have on a typical day: 3 or 4 Within the past year, how often did you have six or more drinks on one occasion: less than monthly Total score: 3 Score interpretation: A score of 4 or more indicates drinking is likely to affect patient's safety. Smoking status: Current every day smoker Non-prescribed substance use: denies use Highest level of school completed/degree received: Bachelor's degree Are you now , , , , never or living with a partner: In a typical week, how many times do you talk on the telephone with family, friends, or neighbors: 3 or more times per week Little interest or pleasure in doing things: not at all Feeling down, depressed, or hopeless: not at all Feel stressed/tense/nervous/anxious/difficulty sleeping: to some extent Life stressors: other Life stressor details: HAS CANCER, CONCERNED THAT SHE MIGHT NOT HAVE A GOOD OUTCOME Do you think of yourself as: straight/heterosexual Gender Identity: male Exam Constitutional Vital Signs, click to edit/add: Last Vital Signs Temp 99 F 07/20/24 16:10 Pulse 68 07/20/24 18:13 Resp 18 07/20/24 18:13 BP 139/73 07/20/24 18:13 Pulse Ox 97 07/20/24 18:13 O2 Del Method Room Air 07/20/24 16:10 Course Vital Signs Vital signs: Vital Signs Temperature 99 F 07/20/24 16:10 Pulse Rate 86 07/20/24 16:10 Respiratory Rate 20 07/20/24 16:10 Blood Pressure 129/80 07/20/24 16:10 Pulse Oximetry 97 07/20/24 16:10 Oxygen Delivery Method Room Air 07/20/24 16:10 Temperature 99 F 07/20/24 16:10 Pulse Rate 68 07/20/24 18:13 Respiratory Rate 18 07/20/24 18:13 Blood Pressure 139/73 07/20/24 18:13 Pulse Oximetry 97 07/20/24 18:13 Oxygen Delivery Method Room Air 07/20/24 16:10 Medical Decision Making [facility] Narrative Medical decision making narrative: Patient chest x-ray shows no acute infiltrate or acute cardiopulmonary disease. Patient has had sinus congestion, bronchitis symptoms for 10 days. Patient has been using some hyek-ecz-cczwxwl products to help with congestion. Patient was sent home with doxycycline, prednisone, Tessalon Perles, Bromfed, albuterol inhaler to help treat his symptoms at home. A lot of cgdh-kzz-xiabppl medications were discussed and recommended to use as well. Patient will continue to hydrate. Patient has not called his PCP in the past 10 days. Patient thankful for help, no questions at discharge. Discharge Plan Discharge Chief Complaint: Fever Clinical Impression: Bronchitis Patient Disposition: Home, Self-Care Time of Disposition Decision: 17:59 Condition: Fair Mode of Transportation: Private Vehicle Prescriptions / Home Meds: New albuterol sulfate 90 mcg/actuation HFA aerosol inhaler 2 inh inhalation Q4H PRN (Reason: shortness of breath or wheezing) 7 Days Qty: 8.5 0RF benzonatate 100 mg capsule 200 mg PO TID PRN (Reason: cough) Qty: 20 0RF vfrdngexjjkydio-bldzpkxuo-MF [Bromfed DM] 2-30-10 mg/5 mL syrup 10 ml PO Q6H PRN (Reason: cold symptoms) Qty: 200 0RF doxycycline hyclate 100 mg tablet 100 mg PO BID 10 Days Qty: 20 0RF methylprednisolone [Medrol (Shravan)] 4 mg tablets,dose pack 4 mg PO DAILY 6 Days Qty: 21 0RF Rx Instructions: as directed No Action budesonide-formoterol [Symbicort] 160-4.5 mcg/actuation HFA aerosol inhaler 1 inh INHALATION Q12H losartan 50 mg tablet 50 mg PO DAILY metoprolol tartrate 25 mg tablet 25 mg PO Q12H tamsulosin 0.4 mg capsule 0.4 mg PO Q24H atorvastatin 40 mg tablet 40 mg PO QDAY allopurinol 100 mg tablet 100 mg PO BID omeprazole 40 mg capsule,delayed release(DR/EC) 40 mg PO QDAY fluticasone propionate 50 mcg/actuation spray,suspension 1 spray INTRANASAL QDAY albuterol sulfate 90 mcg/actuation HFA aerosol inhaler 2 puff INHALATION Q4H PRN (Reason: shortness of breath or wheezing) furosemide 20 mg tablet 20 mg PO .QD Print Language: Marshallese Instructions: Acute Bronchitis (ED) Additional Instructions: Increase fluids at home, Gatorade, Powerade, or water. Alternate using DayQuil, NyQuil, and Flonase. Add Mucinex as well as needed. Alternate Tylenol and Motrin every 4 hours to help with fever control, body aches or joint pain. Use ngwb-cgq-asbkbth vitamin C, vitamin D3, and zinc to help fight infection and help with her immune system. Referrals: NICOLLE LINK [Primary Care Provider] - 1 week Discharge Date/Time: 07/20/24 18:25
--- NOTE | 2024-07-20 16:37 | XR_ITS ---
The [address] [address] Patient Name: ABBEY IRVING MRN: [id number] date: 1955 Sex: M Assigned Patient Location: ER Current Patient Location: ED.MAIN Accession/Order Number: [id number] Exam Date: 07/20/2024 17:18 Report Date: 07/20/2024 18:22 At the request of: LUNA DUFFY Procedure: XR chest 2V EXAM: XR chest 2V HISTORY: cough COMPARISON: 05/16/2024 TECHNIQUE: Chest X-ray AP, 1 view FINDINGS: Support devices: None. Lungs/pleura: No consolidation, effusion, or pneumothorax. Heart and mediastinum: Normal contours. Bones: No acute abnormality identified. XR/XR chest 2V Impression: No radiographic evidence of acute cardiopulmonary process. Electronically authenticated by: LIV PADILLA Date: 07/20/2024 18:22
[2024-07-20 18:13] VITALS: BP 139/73; PULSE 68; O2SAT 97
== END 2024-07-20 18:25 | disposition home or self-care (01) ==
PROVIDERS: Emergency Provider Emergency Medicine
DX: J40 Bronchitis, not specified as acute or chronic (principal); Z90.5 Acquired absence of kidney; F17.200 Nicotine dependence, unspecified, uncomplicated; Z63.79 Other stressful life events affecting family and household
CPT/HCPCS: 71046; 99283

== ENCOUNTER 2024-08-14 09:38 | Outpatient (OUT) | payer MEDICARE, SELFPAY ==
--- OUTSIDE RECORDS SUMMARY | 2024-08-14 09:44 | XMS_ITS | CCD ---
Author Organization [facility] Care Team Providers Care Scientist Propagator Name Role Phone Jose Victoria Unavailable DR [...] VARSHA BARNARD Consulting Unavailable HAY ., DR ABLE Admitting Unavailable HAY ., DR ABEL Attending [...] Primary Care Provider Nicolle Rodriguez NP Unavailable [phone] Unallocated , [place] Provider Primary Care Provi phoebe Rm Rainey MD Primary Care Provider SHAIKH GAGNON Attending Unavailable KALIN, Attending Unavailable KALIN, Attending Unavailable RODRIGUEZ, NICOLLE Attending Unavailabl e RODRIGUEZ, NICOLLE Attending Unavailabl e RODRIGUEZ, NICOLLE Attending Unavailabl e RODRIGUEZ, NICOLLE Attending Unavailabl e Will HOLLINS Attending Unavailable Will HOLLINS Attending Unavailable SHAIKH GAGNON Primary Care Unavailable Will HOLLINS Attending Unavailable OrzeMaribel watkins X Attending Unavailable OrzechMaribel X Attending Unavailable Will HOLLINS Attending Unavailable Allergies Allergy Classification Reported Allergen(s) Allergy Type Date of Onset Reaction(s) Facility (1 source) No Known Medication Allergies; Translations: [No Known Medication Allergies] Propensity to adverse reactions (disorder) [facility] Rep[facility] Medications Current Medications Medication Drug Class(es) Dates Sig (Normalized) Sig (Original) [id number] 200 actuat albuterol 0.09 mg/actuat metered dose [...] 05-10-2023 05-10-2023 Other aftercare (1 source) Other mcfp (current) drug therapy; Translations: [OTH INTERMEDIATE CURRENT DRUG THERAPY] Onset: 04-12-2022 Episodic Other [...] WITH AUTO DIFFon BASOPHILS ABSOLUTE AUTO 0.1 [facility] Basophils/100 WBC (Bld) 0.6 % 0.2 - 2.0 % [facility] Eosinophils/100 WBC (Bld) 2.9 % 0.9 - 7.0 % [facility] Erythrocyte distribution width (RBC) [Ratio] 12.6 % 11.0 - 15.0 % [facility] Hematocrit (Bld) [Volume fraction] 41.2 % Low 42.0 - 54.0 % [facility] Hem[facility] (Bld[facility] [Mass/Vol] 13.8 g/dL Low 14.0 - 18.0 g/dL [facility] IMMATURE GRANULOCYTES ABS AUTO 0.02 [facility] Immature granulocytes/100 WBC (Bld) 0.2 % 0.0 - 0.5 % [facility] Interpretation and review of laboratory results Abnormal [facility] LYMPHOCYTES ABSOLUTE AUTO 2.5 [facility] Lymphocytes/100 WBC (Bld) 28.4 % 20.5 - 60.0 % [facility] MCH (RBC) [Entitic mass] 32.4 pg 25.9 - 34.0 pg [facility] MCHC (RBC) [Mass/Vol] 33.5 g/dL 29.9 - 35.2 g/dL [facility] MCV (RBC) [Entitic vol] 96.7 fL High 80.0 - 94.0 fL [facility] MONOCYTES ABSOLUTE AUTO 0.6 [facility] Monocytes/100 WBC (Bld) 7 % 1.7 - 12.0 % [facility] NEUTROPHILS ABSOLUTE AUTO 5.3 [facility] Neutrophils/100 WBC (Bld) 60.9 % 43.0 - 75.0 % [facility] Platelet mean volume (Bld) [Entitic vol] 10.5 fL 9.5 - 13.5 fL [facility] # [facility].3 [facility] PLT 206 [facility] RBC 4[facility]26 [facility] TB WBC 8.7 [facility] Healthcar e MHPT PSA, DIAGNOSTICon 04-18 PROSTATE SPECIFIC ANTIGEN DX 0.8 ng/mL NINF - 4.00 ng/mL [facility] No Panel Informationon 03-19 [facility] Healthcar e SARS-COV-2 AG*on 03-19-2024 SARS-CoV-2 (COVID-19) RNA PAUL+probe Ql (Unsp spec) Negative NEGATIVE [facility] Comment on above: This test has [...] is terminated or authorization is revoked sooner. [facility] INFLUENZA A AND B AGon 1 INFLUENZA VIRUS A ANTIGEN Negative [facility] Comment on above: Negative for Flu A p rotein antigen. Infection due to Flu A cannot be ruled out. Flu A antigen in the sample may be below the detection limit of the test. INFLUENZA VIRUS B ANTIGEN Negative [facility] Comment on above: Negative for Flu [...] Will HOLLINS MD Where: [facility] [address] [place] [address]- You Need to Schedule the Following Appointments Follow Up with Will HOLLINS MD, URL When: Where: [address] [place] [phone]- Medications What How Much When Instructions Changed tamsulosin (tamsulosin 0.4 mg Cap) 1 Capsules By Mouth Every day Duration: 90 Days Pickup at [facility] Unchanged allopurinol (allopurinol 100 mg Tab) [...] physician if questions or concerns Pharmacy Information [facility]: [address] [place], [place] [phone] Allergies No Known Medication Allergies Problems Ongoing [...] care pr (more content not included)... Normal [facility] Urology Office/Clinic Noteon 01-17-2024 Urology Office/Clinic [...] - 0.23 Pt believes he had a Brookesmith 7. Completed at [facility]. [1] S/p brachytherapy 03/24/11. PSA decreased [...] Contact Information GURVINDER HENDRICKSON, Will Day, URL [address] [place] [address] [place] [address]- Additional Instructions: 4 mos with PSA Patient [...] with voice recognition artificial intelligence software, specifically [employer], [employer] and or [employer]IO[employer]. Substitutions may have occurred due to the [...] Left nephrect (more content not included)... Normal [facility] Comment on above: Result Comment: Elec tronically Signed By: Will HOLLINS MD\.br\Date and Time Signed: 01/17/24 08:35 EDT\.br\Electronically Co-Signed By: Laurel Bradley\.br\Date and Time Co-Signed: 01/17/24 08:31 EDT ED Note-Physicianon 10-20-19 ED Note-Physician [id number] 0#1.00TIFF Normal [facility] Lab Reportson 10-20-2023 Lab Reports [id number] 9#1.00TIFF Normal [facility] Lab Reports [id number] 2#1.00TIFF Normal [facility] RAD - CT Reporton 10-20-2023 RAD - CT Report [id number] 5#1.00TIFF Normal [facility] Screenson 10-20-2023 Screens [id number] #1.00TIFF Normal [facility] Ambulatory Visit Summaryon 0 10-17-2023 Ambulatory [...] Will HOLLINS MD Where: [facility] Patient Educationon 10-17-19 Patient Education Oncology [...] to normal prostate cells (well differentiated). ? Brookesmith 7: This indicates that the cancer cells [...] external be (more content not included)... Normal [facility] Urology Office/Clinic Noteon 10-17-2023 Urology Office/Clinic Note Chief Complaint 1 year follow up HPI Staff 1 year follow up w/PSA *Taking Flomax 0.4 mg qd S/P Lt Nephrectomy 2000 Pt was seen at [facility] on 09/06/23 due to left rib pain. BUN 36, Creatinine 1.09 10/04/23. BUN 26. Creatinine 1.33 09/06/23 CT SCAN 08/12/23 PSA: 10/26/19 - 0.05 08/10/21 - 0.05 10/11/22 - <0.13 09/30/23 - 0.90 Dysuria: denies pain or burning Incomplete bladder emptying: denies Hematuria: yes 6 weeks ago, went to [facility], vomiting blood Frequency: 3x a day [...] with voice recognition artificial intelligence software, specifically [employer], [employer] and or [employer]. Substitutions may have occurred due to the inherent limitations of voice recognition and artificial intelligence software. 1. Rising PSA following treatment for malignant neoplasm of prostate (R97.21: Rising PSA following treatment for malignant neoplasm of prostate) PSA: 10/26/19 - 0.05 08/10/21 - 0.05 10/11/22 - <0.13 09/30/23 - 0.90 S/p brachytherapy 03/24/11. Pt believes he had a Brookesmith 7. Completed at [facility]. Rise in PSA is concerning given [...] When Contact Information Will HOLLINS MD, URL [address] [place] [address] [place] [phone]- Additional Instructions: 3 mos w/ PSA Patient Education Prostate Cancer Tala Holden, personally scribed for Dr. Hollins on 10/17/2023 10:42:59. . Documentation recorded by the joseluisibTala meyer, accurately reflects the services(s) I performed and decisions made by me. Authenticated by Dr. Hollins on 10/17/2023 10:47:47. Problem List/Past (more content not included)... Normal [facility] Comment on above: Result Comment: Elec [...] Albumin [Mass/Vol] 3.6 g/dL 3.4-5.0 [facility] Calcium [Mass/Vol] 9.4 mg/dL 8.5-10.1 [facility] Chloride [Moles/Vol] 104 mmol/L 98-107 [facility] CO2 [Moles/Vol] 24.4 mmol/L 21.0-32.0 [facility] Creatinine [Mass/Vol] 1.09 mg/dL 0.70-1.30 [facility] Ferritin [Mass/Vol] 257.0 ng/mL 26.0-388.0 [facility] GFR/1.73 sq M.predicted MDRD (S/P/Bld) [Vol rate/Area] mL/min/{1.73_m2} >=60 [facility] Glucose [Mass/Vol] 117 mg/dL 74-106 [facility] Iron [Mass/Vol] 80.0 ug/dL 65.0-175.0 [facility] Potassium [Moles/Vol] 3.9 mmol/L 3.5-5.1 [facility] Sodium [Moles/Vol] 139 mmol/L 136-145 [facility] Urate [Mass/Vol] 5.6 mg/dL 3.5-7.2 [facility] Urea nitrogen [Mass/Vol] 36.0 mg/dL 7.0-18.0 [facility] [...] Ql (Urine sed) NONE SEEN NONE SEEN [facility] No Panel Informationon 10-03 25-Hydroxy Vitamin D Total 29.7 ng/mL [facility] Comment on above: <20 ng/mL Vit D defi cient20-<30 ng/mL Vit D wqewnunqqueg66-132 ng/mL Vit D sufficient>100 ng/mL Potential Toxicity Parathyroid Hormone (Intact) 35 pg/mL 15-65 [facility] Comment on above: Performed at: [facility] [address] [id number] Director: Raymundo Wynn PhD, Phone: [phone] Phosphorus Level 4.4 mg/dL 2.6-4.7 [facility] Urine Random Creatinine 102.05 mg/dL 20.00-300.00 [facility] [...] RBC (Bld) [#/Vol] 4.18 10 6/uL 4.70-6.10 [facility] Serum or plasma anion gap de [...] [facility] Lab Reportson 09-30-2023 Lab Reports [id number] #1.00TIFF Normal [facility] CT CHEST WO CONon 10-11-2022 CT [...] LUCAS GOLDSTEIN Date: 2022-10-11 15:31 Normal [facility] CBC AUTO DIFFon 08-23-2022 BASO # 0.0 103/ul Normal 0.0-0.1 [facility] Comment on above: Performed By: #### C BC #### [facility] [address] [place] [address] Dr. Jesus White Basophils/100 WBC (Bld) 0.5 % Normal 0.2-2.0 [facility] Comment on above: Performed By: #### C BC #### [facility] [address] [place] [address] Dr. Jesus White EO # 0.2 103/ul Normal 0.0-0.7 [facility] Comment on above: Performed By: #### C BC #### [facility] [address] [place] [address] Dr. Jesus White Eosinophils/100 WBC (Bld) 2.2 % Normal 0.9-7.0 [facility] Comment on above: Performed By: #### C BC #### [facility] [address] [place] [address] Dr. Jesus White Erythrocyte distribution width (RBC) [Ratio] 13.3 % Normal 11.0-15.0 [facility] Comment on above: Performed By: #### C BC #### [facility] [address] [place] [address] Dr. Jesus White Hematocrit (Bld) [Volume fraction] 43.0 % Normal 42.0-54.0 [facility] Comment on above: Performed By: #### C BC #### [facility] [address] [place] [address] Dr. Jesus White Hemoglobin (Bld) [Mass/Vol] 14.4 g/dL Normal 14.0-18.0 [facility] Comment on above: Performed By: #### C BC #### [facility] [address] [place] [address] Dr. Jesus White IG # 0.02 10e3/ul Normal 0.00-0.03 [facility] Comment on above: Performed By: #### C BC #### [facility] [address] [place] [address] Dr. Jesus White IG % 0.2 % Normal 0.0-0.5 [facility] Comment on above: Performed By: #### C BC #### [facility] [address] [place] [address] Dr. Jesus White LYMPH # 3.0 103/ul Normal 1.2-3.8 [facility] Comment on above: Performed By: #### C BC #### [facility] [address] [place] [address] Dr. Jesus White Lymphocytes/100 WBC (Bld) 35.8 % Normal 20.5-60.0 [facility] Comment on above: Performed By: #### C BC #### [facility] [address] [place] [address] Dr. Jesus White MANUAL DIFF REQ NO Normal [facility] Comment on above: Performed By: #### C BC #### [facility] [address] [place] [address] Dr. Jesus White MCH (RBC) [Entitic mass] 30.6 pg Normal 25.9-34.0 [facility] Comment on above: Performed By: #### C BC #### [facility] [address] [address] [address] Jesus White MCHC (RBC) [Mass/Vol] 33.5 g/dL Normal 29.9-35.2 [facility] Comment on above: Performed By: #### C BC #### [facility] [address] [address] [address] Jesus White MCV (RBC) [Entitic vol] 91.5 fL Normal 80.0-94.0 [facility] Comment on above: Performed By: #### C BC #### [facility] [address] [place] [address] Dr. Jesus White MONO # 0.8 103/ul Normal 0.3-0.8 [facility] Comment on above: Performed By: #### C BC #### [facility] [address] [place] [address] Dr. Jesus White Monocytes/100 WBC (Bld) 9.1 % Normal 1.7-12.0 [facility] Comment on above: Performed By: #### C BC #### [facility] [address] [place] [address] Dr. Jesus White NEUT # 4.4 103/ul Normal 1.4-6.5 [facility] Comment on above: Performed By: #### C BC #### [facility] [address] [place] [address] Dr. Jesus White Neutrophils/100 WBC (Bld) 52.2 % Normal 43.0-75.0 [facility] Comment on above: Performed By: #### C BC #### [facility] [address] [address] [address] Jesus White Platelet mean volume (Bld) [Entitic vol] 9.8 fL Normal 9.5-13.5 [facility] Comment on above: Performed By: #### C BC #### [facility] [address] [place] [address] Dr. Jesus White PLT 236 103/ul Normal 150-450 [facility] Comment on above: Performed By: #### C BC #### [facility] [address] [address] [address] Jesus White RBC 4.70 106/ul Normal 4.70-6.10 [facility] Comment on above: Performed By: #### C BC #### [facility] [address] [address] [address] Jesus White WBC 8.4 103/ul Normal 4.0-11.0 [facility] Comment on above: Performed By: #### C BC #### [facility] [address] [place] [address] Dr. Jesus White LIPID PROFILEon 08-23-2022 CHOL-HDL RATIO NORM SEE BELOW Normal [facility] Comment on above: Result Comment: 3.3 - 4.4 LOW RISK 4.4 - 7.1 AVERAGE RISK 7.1 - 11.0 MODERATE RISK >11.0 HIGH RISK Performed By: #### C MP, LIPID #### [facility] [address] [place] [address] Dr. Jesus White Cholesterol [Mass/Vol] 121 mg/dL Normal <=200 [facility] Comment on above: Performed By: #### C MP, LIPID #### [facility] [address] [place] [address] Dr. Jesus White Cholesterol in HDL [Mass/Vol] 37 mg/dL Critically low 40-60 [facility] Comment on above: Performed By: #### C MP, LIPID #### [facility] [address] [place] [address] Dr. Jesus White Cholesterol in LDL [Mass/Vol] 59.6 mg/dL Normal [facility] Comment on above: Performed By: #### C MP, LIPID #### [facility] [address] [place] [address] Dr. Jeuss White Cholesterol.total/Ch olesterol in HDL [Mass ratio] 3.3 {ratio} Normal [facility] Comment on above: Performed By: #### C MP, LIPID #### [facility] [address] [place] [address] Dr. Jesus White HDL NORMAL > or = 60 mg/dl - LOW CARDIOVASCULAR RISK <40 mg/dl - HIGH CARDIOVASCULAR RISK Normal [facility] Comment on above: Performed By: #### C MP, LIPID #### [facility] [address] [address] [address] Jesus White LDL CALC NORMAL SEE BELOW Normal [facility] Comment on above: Result Comment: <100 mg/dl OPTIMAL 100 - 129 mg/dl NEAR OR ABOVE OPTIMAL 130 - 159 mg/dl BORDERLINE HIGH 160 - 189 mg/dl HIGH >190 mg/dl VERY HIGH Performed By: #### C MP, LIPID #### [facility] [address] [address] [address] Jesus White Triglyceride [Mass/Vol] 122 mg/dL Normal <=150 [facility] Comment on above: Performed By: #### C MP, LIPID #### [facility] [address] [place] [address] Dr. Jesus White VLDL CALC 24.4 mg/dL Normal [facility] Comment on above: Performed By: #### C MP, LIPID #### [facility] [address] [place] [address] Dr. Jesus White PROF 14(COMP METB)on 023 Albumin [Mass/Vol] 3.8 g/dL Normal 3.4-5.0 [facility] Comment on above: Performed By: #### C MP, LIPID #### [facility] [address] [place] [address] Dr. Jesus White Albumin/Globulin [Mass ratio] 1.1 {ratio} Normal [facility] Comment on above: Performed By: #### C MP, LIPID #### [facility] [address] [place] [address] Dr. Jesus White ALP [Catalytic activity/Vol] 46 U/L Normal 46-116 [facility] Comment on above: Performed By: #### C MP, LIPID #### [facility] [address] [address] [address] Jesus White ALT [Catalytic activity/Vol] 37 U/L Normal 16-63 [facility] Comment on above: Performed By: #### C MP, LIPID #### [facility] [address] [address] [address] Jesus White Anion gap [Moles/Vol] 11.3 mmol/L Normal [facility] Comment on above: Performed By: #### C MP, LIPID #### [facility] [address] [address] [address] Jesus White AST [Catalytic activity/Vol] 28 U/L Normal 15-37 [facility] Comment on above: Performed By: #### C MP, LIPID #### [facility] [address] [address] [address] Jesus White Bilirubin [Mass/Vol] 0.5 mg/dL Normal 0.2-1.0 [facility] Comment on above: Performed By: #### C MP, LIPID #### [facility] [address] [place] [address] Dr. Jesus White Calcium [Mass/Vol] 9.5 mg/dL Normal 8.5-10.1 [facility] Comment on above: Performed By: #### C MP, LIPID #### [facility] [address] [address] [address] Jesus White Chloride [Moles/Vol] 104 mmol/L Normal 98-107 [facility] Comment on above: Performed By: #### C MP, LIPID #### [facility] [address] [place] [address] Dr. Jesus White CO2 [Moles/Vol] 28.9 mmol/L Normal 21.0-32.0 [facility] Comment on above: Performed By: #### C MP, LIPID #### [facility] [address] [address] [address] Jesus White Creatinine [Mass/Vol] 0.99 mg/dL Normal 0.70-1.30 [facility] Comment on above: Performed By: #### C MP, LIPID #### [facility] [address] [address] [address] Jesus White EGFR-AF LUXEMBOURGER >60 Normal >=60 [facility] Comment on above: Performed By: #### C MP, LIPID #### [facility] [address] [address] [address] Jesus White EGFR-NON AF LUXEMBOURGER >60 Normal >=60 [facility] Comment on above: Performed By: #### C MP, LIPID #### [facility] [address] [address] [address] Jesus White Globulin (S) [Mass/Vol] 3.6 g/dL Normal [facility] Comment on above: Performed By: #### C MP, LIPID #### [facility] [address] [address] [address] Jesus White Glucose [Mass/Vol] 92 mg/dL Normal 74-106 [facility] Comment on above: Performed By: #### C MP, LIPID #### [facility] [address] [address] [address] Jesus White Potassium [Moles/Vol] 4.2 mmol/L Normal 3.5-5.1 [facility] Comment on above: Performed By: #### C MP, LIPID #### [facility] [address] [address] [address] Jesus White Protein [Mass/Vol] 7.4 g/dL Normal 6.4-8.2 [facility] Comment on above: Performed By: #### C MP, LIPID #### [facility] [address] [address] [address] Jesus White Sodium [Moles/Vol] 140 mmol/L Normal 136-145 [facility] Comment on above: Performed By: #### C MP, LIPID #### [facility] [address] [address] [address] Jesus White Urea nitrogen [Mass/Vol] 12.0 mg/dL Normal 7.0-18.0 [facility] Comment on above: Performed By: #### C MP, LIPID #### [facility] [address] [address] [address] Jesus White Urea nitrogen/Creatinine [Mass ratio] 12.1 mg/mg Normal [facility] Comment on above: Performed By: #### C MP, LIPID #### [facility] [address] [address] [address] LUNG CANCER SCREENINGon [...] LUCAS GOLDSTEIN Date: 2022-07-05 12:53 Normal [facility] BLOOD GASES BTYon 04-08-2022 02 MODE ROOM AIR Normal [facility] Comment on above: Performed By: #### A BG ####[facility] [address] [address]DrJordin White ALLENS TEST Positive Normal [facility] Comment on above: Performed By: #### A BG ####[facility] [address] [id number] White Base excess Calc (Bld) [Moles/Vol] -0.4000 mmol/L Normal -2.0-2.0 [facility] Comment on above: Performed By: #### A BG ####[facility] [address] [address]Dr[address] Jesus White BIPAP PRESSURE Normal [facility] Comment on above: Performed By: #### A BG ####[facility] [address] [address]Dr[address] Jesus White CPAP Normal [facility] Comment on above: Performed By: #### A BG ####[facility] [address] [place], [place] [address]Dr. Jesus White FIO2 Normal [facility] Comment on above: Performed By: #### A BG ####[facility] [address] [place], [place] [address]Dr. Jesus White HCO3 (Bld) [Moles/Vol] 24.7 mmol/L Normal 22.0-26.0 [facility] Comment on above: Performed By: #### A BG ####[facility] [address] [place], [place] [address]Dr. Jesus White LPM Normal [facility] Comment on above: Performed By: #### A BG ####[facility] [address] [place], [place] [address]Dr. Jesus White MINUTE VOLUME Normal [facility] Comment on above: Performed By: #### A BG ####[facility] [address] [place], [place] [address]Dr. Jesus White Oxygen (Bld) [Partial pressure] 75.3 mm[Hg] Critically low 80.0-100.0 [facility] Comment on above: Performed By: #### A BG ####[facility] [address] [place], [place] [address]Dr. Jesus White Oxygen saturation in Blood 94.7 % Critically low 95.0-100.0 [facility] Comment on above: Performed By: #### A BG ####[facility] [address] [place], [place] [address]Dr. Jesus White PCO2 42.0 mmHg Normal 35.0-45.0 [facility] Comment on above: Performed By: #### A BG ####[facility] [address] [address]Dr. Jesus White PEEP [facility] Comment on above: Performed By: #### A BG ####[facility] Qsvsvampyh[address] [address]Dr. Jesus White pH (Bld) 7.379 [pH] Normal 7.350-7.450 [facility] Comment on above: Performed By: #### A BG ####[facility] Jxznqzsdxq[address] [address]Dr. Jesus White PIP [facility] Comment on above: Performed By: #### A BG ####[facility] E[address]ztr[address]bs[address] [address]Dr. Jesus White PS [facility] Comment on above: Performed By: #### A BG ####[facility] Wmypxphlcm[address] [place], [place] [address]Dr. Jesus White PUNCTURE SITE LR [place] [facility] Comment on above: Performed By: #### A BG ####[facility] Euoxmzwc[address] [place], [place] [address]Dr. Jesus White RATE [facility] Comment on above: Performed By: #### A BG ####[facility] [address] [address]Dr. Jesus White VENT MODE [facility] Comment on above: Performed By: #### A BG ####[facility] R[address] [place], [place] [address]Dr. Jesus White [place] [facility] Comment on above: Performed By: #### A BG ####[facility] Mvgmkaivrm[address] [place], [place] [address]Dr. Jesus White CBC AUTO DIFFon 04-08-2022 BASO # 0.1 103/ul Normal 0.0-0.1 [facility] Comment on above: Performed By: #### C BC #### [facility] [address] [place] [address] Dr. Jesus White Basophils/100 WBC (Bld) 0.6 % Normal 0.2-2.0 [facility] Comment on above: Performed By: #### C BC #### [facility] [address] [place] [address] Dr. Jesus White EO # 0.2 103/ul Normal 0.0-0.7 [facility] Comment on above: Performed By: #### C BC #### [facility] [address] [place] [address] Dr. Jesus White Eosinophils/100 WBC (Bld) 1.5 % Normal 0.9-7.0 [facility] Comment on above: Performed By: #### C BC #### [facility] [address] [place] [address] Dr. Jesus White Erythrocyte distribution width (RBC) [Ratio] 13.2 % Normal 11.0-15.0 [facility] Comment on above: Performed By: #### C BC #### [facility] [address] [place] [address] Dr. Jesus White Hematocrit (Bld) [Volume fraction] 41.7 % Critically low 42.0-54.0 [facility] Comment on above: Performed By: #### C BC #### [facility] [address] [place] [address] Dr. Jesus White Hemoglobin (Bld) [Mass/Vol] 14.3 g/dL Normal 14.0-18.0 [facility] Comment on above: Performed By: #### C BC #### [facility] [address] [place] [address] Dr. Jesus White IG # 0.03 10e3/ul Normal 0.00-0.03 [facility] Comment on above: Performed By: #### C BC #### [facility] [address] [place] [address] Dr. Jesus White IG % 0.3 % Normal 0.0-0.5 [facility] Comment on above: Performed By: #### C BC #### [facility] [address] [place], [place] [id number] Dr. Jesus White LYMPH # 5.6 103/ul Critically high 1.2-3.8 The [facility] Comment on above: Performed By: #### C BC #### [facility] [address] [place] [address] Dr. Jesus White Lymphocytes/100 WBC (Bld) 57.0 % Normal 20.5-60.0 [facility] Comment on above: Performed By: #### C BC #### [facility] [address] [place] [address] Dr. Jesus White MANUAL DIFF REQ NO Normal [facility] Comment on above: Performed By: #### C BC #### [facility] [address] [place] [address] Dr. Jesus White MCH (RBC) [Entitic mass] 31.4 pg Normal 25.9-34.0 [facility] Comment on above: Performed By: #### C BC #### [facility] [address] [place] [address] Dr. Jesus White MCHC (RBC) [Mass/Vol] 34.3 g/dL Normal 29.9-35.2 [facility] Comment on above: Performed By: #### C BC #### [facility] [address] [place] [address] Dr. Jesus White MCV (RBC) [Entitic vol] 91.6 fL Normal 80.0-94.0 [facility] Comment on above: Performed By: #### C BC #### [facility] [address] [place] [address] Dr. Jesus White MONO # 0.5 103/ul Normal 0.3-0.8 [facility] Comment on above: Performed By: #### C BC #### [facility] [address] [place] [address] Dr. Jesus White Monocytes/100 WBC (Bld) 5.1 % Normal 1.7-12.0 [facility] Comment on above: Performed By: #### C BC #### [facility] [address] [place] [address] Dr. Jesus White NEUT # 3.5 103/ul Normal 1.4-6.5 [facility] Comment on above: Performed By: #### C BC #### [facility] [address] [place] [address] Dr. Jesus White Neutrophils/100 WBC (Bld) 35.5 % Critically low 43.0-75.0 [facility] Comment on above: Performed By: #### C BC #### [facility] [address] [place] [address] Dr. Jesus White Platelet mean volume (Bld) [Entitic vol] 9.5 fL Normal 9.5-13.5 [facility] Comment on above: Performed By: #### C BC #### [facility] [address] [place] [address] Dr. Jesus White PLT 222 103/ul Normal 150-450 [facility] Comment on above: Performed By: #### C BC #### [facility] [address] [place] [address] Dr. Jesus White RBC 4.55 106/ul Critically low 4.70-6.10 [facility] Comment on above: Performed By: #### C BC #### [facility] [address] [place], [place] [id number] Dr. Jesus White WBC 9.8 103/ul Normal 4.0-11.0 [facility] Comment on above: Performed By: #### C BC #### [facility] [address] [place], [place] [id number] Dr. Jesus White CT STROKE HEAD WOon [...] ERNA LEON Date: 2022-04-08 18:50 Normal [facility] Covid-19 PCR (CVDTB)on SARS-CoV-2 (COVID-19) RNA PAUL+probe Ql (Unsp spec) Not detected Normal NOT DETECTED [facility] Comment on above: Result Comment: When [...] for this test is supported by the [place] of Health and Human Service's declaration that [...] used). Performed By: #### C VDTB #### [facility] [address] [address] [address] Jesus White ETHANOL (BLD ALC)on 04-08-20 22 ALC NOTE NOTE: 80 mg/dl is the legal limit for a blood alcohol level Normal [facility] Comment on above: Performed By: #### E TH ####[facility] [address] [id number]. Jesus White Ethanol [Mass/Vol] 344 mg/dL Normal The [facility] Comment on above: Performed By: #### E TH ####[facility] [address]ks[address] [id number]. Jesus White PROF 14(COMP METB)on 022 Albumin [Mass/Vol] 3.5 g/dL Normal 3.4-5.0 [facility] Comment on above: Performed By: #### C MP, HSTROPN #### [facility] [address] [address] [address] Jesus White Albumin/Globulin [Mass ratio] 1.0 {ratio} Normal [facility] Comment on above: Performed By: #### C MP, HSTROPN #### [facility] [address] [address] [address] Jesus White ALP [Catalytic activity/Vol] 41 U/L Critically low 46-116 [facility] Comment on above: Performed By: #### C MP, HSTROPN #### [facility] [address] [address] [address] Jesus White ALT [Catalytic activity/Vol] 28 U/L Normal 16-63 [facility] Comment on above: Performed By: #### C MP, HSTROPN #### [facility] [address] [address] [address] Jesus White Anion gap [Moles/Vol] 12.1 mmol/L Normal [facility] Comment on above: Performed By: #### C MP, HSTROPN #### [facility] [address] [address] [address] Jesus White AST [Catalytic activity/Vol] 19 U/L Normal 15-37 [facility] Comment on above: Performed By: #### C MP, HSTROPN #### [facility] [address] [address] [address] Jesus White Bilirubin [Mass/Vol] 0.3 mg/dL Normal 0.2-1.0 [facility] Comment on above: Performed By: #### C MP, HSTROPN #### [facility] [address] [address] [address] Jesus White Calcium [Mass/Vol] 8.8 mg/dL Normal 8.5-10.1 [facility] Comment on above: Performed By: #### C MP, HSTROPN #### [facility] [address] [address] [address] Jesus White Chloride [Moles/Vol] 105 mmol/L Normal 98-107 [facility] Comment on above: Performed By: #### C MP, HSTROPN #### [facility] [address] [place] [address] Dr. Jesus White CO2 [Moles/Vol] 24.8 mmol/L Normal 21.0-32.0 [facility] Comment on above: Performed By: #### C MP, HSTROPN #### [facility] [address] [place] [address] Dr. Jesus White Creatinine [Mass/Vol] 1.53 mg/dL Critically high 0.70-1.30 [facility] Comment on above: Performed By: #### C MP, HSTROPN #### [facility] [address] [place] [address] Dr. Jesus White EGFR-AF LUXEMBOURGER 55 mL/min/1.73m2 Critically low >=60 [facility] Comment on above: Result Comment: Prev iously reported as: (blank) On 04/08/2022 19:15 By [facility] Performed By: #### C MP, HSTROPN #### [facility] [address] [place] [address] Dr. Jesus White EGFR-NON AF LUXEMBOURGER 46 mL/min/1.73m2 Critically low >=60 [facility] Comment on above: Result Comment: Prev iously reported as: (blank) On 04/08/2022 19:15 By [facility] Performed By: #### C MP, HSTROPN #### [facility] [address] [place] [address] Dr. Jesus White Globulin (S) [Mass/Vol] 3.5 g/dL Normal [facility] Comment on above: Performed By: #### C MP, HSTROPN #### [facility] [address] [place] [address] Dr. Jesus White Glucose [Mass/Vol] 116 mg/dL Critically high 74-106 [facility] Comment on above: Performed By: #### C MP, HSTROPN #### [facility] [address] [place] [address] Dr. Jesus White Potassium [Moles/Vol] 3.9 mmol/L Normal 3.5-5.1 [facility] Comment on above: Performed By: #### C JORGE, HSTROPN #### [facility] [address] [address] [address] Jesus White Protein [Mass/Vol] 7.0 g/dL Normal 6.4-8.2 [facility] Comment on above: Performed By: #### C JORGE, HSTROPN #### [facility] [address] [address] [address] Jesus White Sodium [Moles/Vol] 138 mmol/L Normal 136-145 [facility] Comment on above: Performed By: #### C JORGE, HSTROPN #### [facility] [address] [address] [address] Jesus White Urea nitrogen [Mass/Vol] 17.0 mg/dL Normal 7.0-18.0 [facility] Comment on above: Performed By: #### C JORGE, HSTROPN #### [facility] [address] [address] [address] Jesus White Urea nitrogen/Creatinine [Mass ratio] 11.1 mg/mg Normal [facility] Comment on above: Performed By: #### C JORGE, HSTROPN #### [facility] [address] [address] [address] Jesus White PROTIMEon 04-08-2022 INR Coag (PPP) [Relative time] 1.00 {INR} Normal [facility] Comment on above: Performed By: #### P TT, PT ####[facility] [address] [address]Dr. Jesus White INR GUIDELINES SEE BELOW Normal The [facility] Comment on above: Result Comment: JULIET RED INR: 2.0 - 3.0 CONDITIONS NOT LISTED BELOW 2.5 - 3.5 FOR PROSTHETIC HEART VALVE REPLACEMENT 2.5 - 3.5 RECURRENT THROMBOSIS Performed By: #### P TT, PT ####[facility] [address] [address]Dr. Jesus White PT Coag (PPP) [Time] 10.8 s Normal 9.0-11.6 [facility] Comment on above: Performed By: #### P TT, PT ####[facility] [address] [place], [place] [address]NtDr. Jesus White PTTon 04-08-2022 aPTT Coag (Bld) [Time] 24.8 s Normal 22.3-36.2 [facility] Comment on above: Performed By: #### P TT, PT ####[facility] [address] [place], [place] [address]CrJordin White TROPONIN, HIGH SENSITIVITYon 04-08-2022 HSTROP 16.7 pg/mL Normal 4.0-76.1 [facility] Comment on above: Result Comment: CUT- OFF POINTS HAVE BEEN ESTABLISHED BASED ON THE FOURTH UNIVERSAL DEFINITIONS OF MYOCARDIAL INFARCTION. THE UPPER REFERENCE LIMIT (URL) OF TROPONIN, DEFINED THE 99TH PERCENTILE OF cTnI DISTRIBUTION IN A REFERENCE POPULATION, HAS BEEN CONFIRMED THE DECISION THRESHOLD FOR [place] DIAGNOSIS. Performed By: #### C MP, HSTROPN #### [facility] [address] [place] [address] Dr. Jesus White PROF CHEM 8 (BAS METB)on Anion gap [Moles/Vol] 13.3 mmol/L Normal [facility] Comment on above: Performed By: #### B MP #### [facility] [address] [address] [address] Jesus White Calcium [Mass/Vol] 9.7 mg/dL Normal 8.5-10.1 [facility] Comment on above: Performed By: #### B MP #### [facility] [address] [address] [address] Jesus White Chloride [Moles/Vol] 103 mmol/L Normal 98-107 [facility] Comment on above: Performed By: #### B MP #### [facility] [address] [address] [address] Jesus White CO2 [Moles/Vol] 28.4 mmol/L Normal 21.0-32.0 [facility] Comment on above: Performed By: #### B MP #### [facility] [address] [address] [address] Jesus White Creatinine [Mass/Vol] 1.21 mg/dL Normal 0.70-1.30 [facility] Comment on above: Performed By: #### B MP #### [facility] [address] [address] [address] Jesus White EGFR-AF LUXEMBOURGER >60 Normal >=60 [facility] Comment on above: Performed By: #### B MP #### [facility] [address] [address] [address] Jesus White EGFR-NON AF LUXEMBOURGER 60 mL/min/1.73m2 Normal >=60 [facility] Comment on above: Performed By: #### B MP #### [facility] [address] [address] [address] Jesus White Glucose [Mass/Vol] 95 mg/dL Normal 74-106 [facility] Comment on above: Performed By: #### B MP #### [facility] [address] [address] [address] Jesus White Potassium [Moles/Vol] 3.7 mmol/L Normal 3.5-5.1 [facility] Comment on above: Performed By: #### B MP #### [facility] [address] [address] [address] Jesus White Sodium [Moles/Vol] 141 mmol/L Normal 136-145 [facility] Comment on above: Performed By: #### B MP #### [facility] [address] [address] [address] Jesus White Urea nitrogen [Mass/Vol] 12.0 mg/dL Normal 7.0-18.0 [facility] Comment on above: Performed By: #### B MP #### [facility] [address] [address] [address] Jesus White Urea nitrogen/Creatinine [Mass ratio] 9.9 mg/mg Normal [facility] Comment on above: Performed By: #### B MP #### [facility] [address] [address] [address] Jesus White ER URINE PROFILEon 2 Bilirubin Ql (U) Negative Normal NEGATIVE [facility] Comment on above: Performed By: #### CALEB GOULD ####[facility] [address] [address]Dr. Jesus White Clarity (U) CLEAR Normal CLEAR [facility] Comment on above: Performed By: #### CALEB GOULD ####[facility] [address] [place] [address]Dr. Jesus White Color (U) LT. YELLOW Normal YELLOW [facility] Comment on above: Performed By: #### CALEB GOULD ####[facility] [address] [address]Dr. Jesus DAVED A micrscopic examination will be performed if indicated. Normal [facility] Comment on above: Performed By: #### CALEB GOULD ####[facility] [address] [place], [place] [address]Dr. Jesus White Glucose Ql (U) Negative Normal NEGATIVE The [facility] Comment on above: Performed By: #### CALEB GOULD ####[facility] [address] [place], [place] [address]Dr. Jesus White Hemoglobin Ql (U) Negative Normal NEGATIVE The [facility] Comment on above: Performed By: #### CALEB GOULD ####[facility] [address] [address]Dr. Jesus White Ketones Ql (U) Negative Normal NEGATIVE The [facility] Comment on above: Performed By: #### CALEB GOULD ####[facility] [address] [address]Dr. Jesus White LEUKOCYTES Negative Normal NEGATIVE [facility] Comment on above: Performed By: #### CALEB GOULD ####[facility] [address] [place] [address]Dr. Jesus White Nitrite Ql (U) Negative Normal NEGATIVE The [facility] Comment on above: Performed By: #### Júnior BARNES UMICRO ####[facility] [address] [address]Dr. Carolliseth Christopher pH (U) 6.0 [pH] Normal 5-9 [facility] Comment on above: Performed By: #### Júnior BARNES UMICRO ####[facility] [address] [place] [address]Dr. Jesus White SPEC GRAVITY <=1.005 Abnormal 1.005-<=1.025 The [facility] Comment on above: Performed By: #### Júnior BARNES UMICRO ####[facility] [address] [place] [address]Dr. Jesus White UA PROTEIN Negative Normal NEGATIVE/ TRACE [facility] Comment on above: Performed By: #### Júnior BARNES UMICRO ####[facility] [address] [place], [place] [address]Dr. Jesus White UR MICRO IND INDICATED Normal [facility] Comment on above: Performed By: #### ESTRELLITA GOULDICRO ####[facility] F[address]oke[address] [place], [place] [address]Dr. Jesus White Urobilinogen Qn (U) 0.2 {Dash'U}/dL Normal 0.2 - 1. 0 [facility] Comment on above: Performed By: #### Júnior BARNES UMICRO ####[facility] [address] [place], [place] [address]Dr. Jesus White URINE MICROSCOPIC ONLYon BACTERIA NONE SEEN Normal NONE SEEN [facility] Comment on above: Performed By: #### Júnior BARNES UMICRO ####[facility] [address] [place], [place] [address]Dr. Jesus White Bacteria identified Cx Nom (U) NOT INDICATED Normal [facility] Comment on above: Performed By: #### Júnior BARNES UMICRO ####[facility] Die[address]ksilw[address] [place], [place] [address]Dr. Jesus White CAST NONE SEEN Normal NONE SEEN [facility] Comment on above: Performed By: #### Júnior BARNES UMICRO ####[facility] [address] [place] [id number]. Jesus White Crystals LM Nom (Urine sed) NONE SEEN Normal NONE SEEN [facility] Comment on above: Performed By: #### Júnior BARNES UMICRO ####[facility] [address]mpko[address] [place] [id number]. Jesus White Epithelial cells LM Ql (Urine sed) RARE Normal NONE SEEN /RARE [facility] Comment on above: Performed By: #### Júnior BARNES UMICRO ####[facility] [address] [id number]. Jesus White MUCOUS NONE SEEN Normal NONE SEEN [facility] Comment on above: Performed By: #### Júnior BARNES UMICRO ####[facility] [address] [address]Dr. Jesus White RBC NONE SEEN Abnormal 0-2 [facility] Comment on above: Performed By: #### Júnior BARNES UMICRO ####[facility] [address] [id number]. Jesus White WBC NONE SEEN Normal NONE SEEN [facility] Comment on above: Performed By: #### Júnior BARNES UMICRO ####[facility] [address] [address]Dr. Jesus White US CRYSTAL DOP LEG LTon [...] by: VARSHA BARNARD Date: 2022-01-01 08:49 Normal [facility] Vital Signs Date Time Vital Sign Value Performing Clinician Facility 06-20-2024 09:31-0500 Body height 177.8 cm Nicolle Rodriguez [employer]IST Work Phone: [facility] 06-20-2024 09:31-0500 Body mass index (BMI) [Ratio] 33.58 kg/m2 Nicolle Rodriguez [employer]OLING SPECIALIST Work Phone: [facility] 06-20-2024 09:31-0500 Body temperature 97.7 [degF] Nicolle Rodriguez TOOLING SPECIALIST Work Phone: [facility] 06-20-2024 09:31-0500 Body weight 106.14 kg Nicolle Rodriguez TOOLING SPECIALIST Work Phone: [facility] 06-20-2024 09:31-0500 Diastolic blood pressure 76 mm[Hg] Nicolle Rodriguez [employer]OLING SPECIALIST Work Phone: [facility] 06-20-2024 09:31-0500 Heart rate 69 /min Nicolle Rodriguez [employer]OLING SPECIALIST Work Phone: [facility] 06-20-2024 09:31-0500 Respiratory rate 18 /min Nicolle Rodriguez TOOLING SPECIALIST Work Phone: [facility] 06-20-2024 09:31-0500 SaO2% (BldA) [Mass fraction] 99 % Nicolle Rodriguez [employer]OLING SPECIALIST Work Phone: [facility] 06-20-2024 09:31-0500 Systolic blood pressure 138 mm[Hg] Nicolle Rodriguez TOOLING SPECIALIST Work Phone: [facility] 05-22-2024 10:51-0500 Body height 177.8 cm Nicolle Rodriguez TOOLING SPECIALIST Work Phone: [facility] 05-22-2024 10:51-0500 Body mass index (BMI) [Ratio] 32.43 kg/m2 Nicolle Rodriguez TOOLING SPECIALIST Work Phone: [facility] 05-22-2024 10:51-0500 Body temperature 96.69 [degF] Nicolle Rodriguez TOOLING SPECIALIST Work Phone: [facility] 05-22-2024 10:51-0500 Body weight 102.51 kg Nicolle Rodriguez TOOLING SPECIALIST Work Phone: [facility] 05-22-2024 10:51-0500 Diastolic blood pressure 78 mm[Hg] Nicolle Rodriguez TOOLING SPECIALIST Work Phone: [facility] 05-22-2024 10:51-0500 Heart rate 74 /min Nicolle Rodriguez TOOLING SPECIALIST Work Phone: [facility] 05-22-2024 10:51-0500 Respiratory rate 18 /min Nicolle Rodriguez TOOLING SPECIALIST Work Phone: [facility] 05-22-2024 10:51-0500 SaO2% (BldA) [Mass fraction] 97 % Nicolle Rodriguez TOOLING SPECIALIST Work Phone: [facility] 05-22-2024 10:51-0500 Systolic blood pressure 146 mm[Hg] Nicolle Rodriguez TOOLING SPECIALIST Work Phone: [facility] 04-23-2024 14:58-0500 Body height 172.7 cm Nicolle Rodriguez TOOLING SPECIALIST Work Phone: [facility] 04-23-2024 14:58-0500 Body mass index (BMI) [Ratio] 35.58 kg/m2 Nicolle Rodriguez [employer]OLING SPECIALIST Work Phone: [facility] 04-23-2024 14:58-0500 Body temperature 97.3 [degF] Nicolle Rodriguez TOOLING SPECIALIST Work Phone: [facility] 04-23-2024 14:58-0500 Body weight 106.14 kg Nicolle Rodriguez TOOLING SPECIALIST Work Phone: [facility] 04-23-2024 14:58-0500 Diastolic blood pressure 60 mm[Hg] Nicolle Rodriguez TOOLING SPECIALIST Work Phone: [facility] 04-23-2024 14:58-0500 Heart rate 62 /min Nicolle Rodriguez TOOLING SPECIALIST Work Phone: [facility] 04-23-2024 14:58-0500 Respiratory rate 22 /min Nicolle Rodriguez TOOLING SPECIALIST Work Phone: [facility] 04-23-2024 14:58-0500 SaO2% (BldA) [Mass fraction] 97 % Nicolle Rodriguez TOOLING SPECIALIST Work Phone: [facility] 04-23-2024 14:58-0500 Systolic blood pressure 130 mm[Hg] Nicolle Rodriguez TOOLING SPECIALIST Work Phone: [facility] 03-19-2024 08:59-0400 Body mass index (BMI) [Ratio] 33.06 kg/m2 Nicolle Rodriguez TOOLING SPECIALIST Work Phone: [facility] 03-19-2024 08:59-0400 Body temperature 97.3 [degF] Nicolle Rodriguez TOOLING SPECIALIST Work Phone: [facility] 03-19-2024 08:59-0400 Body weight 104.51 kg Nicolle Rodriguez TOOLING SPECIALIST Work Phone: [facility] 03-19-2024 08:59-0400 Diastolic blood pressure 80 mm[Hg] Nicolle Rodriguez TOOLING SPECIALIST Work Phone: [facility] 03-19-2024 08:59-0400 Heart rate 63 /min Nicolle Rodriguez TOOLING SPECIALIST Work Phone: [facility] 03-19-2024 08:59-0400 SaO2% (BldA) [Mass fraction] 98 % Nicolle Rodriguez TOOLING SPECIALIST Work Phone: [facility] 03-19-2024 08:59-0400 Systolic blood pressure 162 mm[Hg] Nicolle Choprazpatrick TOOLING SPECIALIST Work Phone: [facility] 01-17-2024 08:08-0400 Blood Pressure Location Will COOK [facility] 01-17-2024 08:08-0400 Diastolic blood pressure 84 mm[Hg] Will COOK [facility] 01-17-2024 08:08-0400 Heart rate 62 /min Will COOK [facility] 01-17-2024 08:08-0400 Respiratory rate 19 /min Will COOK [facility] 01-17-2024 08:08-0400 Systolic blood pressure 151 mm[Hg] Will COOK [facility] 10-17-2023 10:02-0400 Blood Pressure Location Will COOK [facility] 10-17-2023 10:02-0400 Diastolic blood pressure 66 mm[Hg] Will COOK [facility] 10-17-2023 10:02-0400 Heart rate 66 /min Will COOK [facility] 10-17-2023 10:02-0400 Respiratory rate 18 /min Will COOK [facility] 10-17-2023 10:02-0400 Systolic blood pressure 120 mm[Hg] Will COOK [facility] 10-13-2023 13:17-0400 Body height 177.8 cm [facility] 10-13-2023 13:17-0400 Body mass index (BMI) [Ratio] 32.5 kg/m2 [facility] 10-13-2023 13:17-0400 Body temperature 97 [degF] [facility] 10-13-2023 13:17-040 Body weight 102.96 kg [facility] 10-13-2023 13:17-0400 Diastolic blood pressure 70 mm[Hg] [facility] 10-13-2023 13:17-0400 Heart rate 74 /min [facility] 10-13-2023 13:170400 Respiratory rate 20 /min [facility] 10-13-2023 13:17-0400 SaO2% (BldA) [Mass fraction] 97 % [facility] 10-13-2023 13:17-0400 Systolic blood pressure 120 mm[Hg] [facility] 03-17-2023 15:20-0400 Body height 177.8 cm Jose Julien Other [facility] [employer] Other 03-17-2023 15:20-0400 Body mass index (BMI) [Ratio] 31.96 kg/m2 Jose Julien Other [employer] Other 03-17-2023 15:20-0400 Body temperature 96.9 [degF] Jose Julien Other [employer] Other 03-17-2023 15:20-0400 Body weight 101.06 kg Jose Julien Other [employer] Other 03-17-2023 15:20-0400 Diastolic blood pressure 73 mm[Hg] Jose Julien Other [employer] Other 03-17-2023 15:20-0400 Respiratory rate 18 /min Jose Julien Other [employer] Other 03-17-2023 15:20-0400 SaO2% (BldA) [Mass fraction] 98 % Jose Julien Other [employer] Other 03-17-2023 15:20-0400 Systolic blood pressure 134 mm[Hg] Jose Julien Other [employer] Other 09-30-2022 11:20-0400 Body height 177.8 cm Jose Julien Other [employer] Other 09-30-2022 11:20-0400 Body mass index (BMI) [Ratio] 33.6 kg/m2 Jose Julien Other [employer] Other 09-30-2022 11:20-0400 Body temperature 96.3 [degF] Jose Julien Other [employer] Other 09-30-2022 11:20-0400 Body weight 106.23 kg Jose Julien Other [employer] Other 09-30-2022 11:20-0400 Diastolic blood pressure 64 mm[Hg] Jose Julien Other [employer] Other 09-30-2022 11:20-0400 Respiratory rate 18 /min Jose Julien Other [employer] Other 09-30-2022 11:20-0400 SaO2% (BldA) [Mass fraction] 99 % Jose Julien Other [employer] Other 09-30-2022 11:20-0400 Systolic blood pressure 138 mm[Hg] Jose Julien Other [employer] Other 03-22-2022 14:00-0400 Body height 177.8 cm Jose Julien Other [employer] Other 03-22-2022 14:00-0400 Body mass index (BMI) [Ratio] 33.14 kg/m2 Jose Julien Other [employer] Other 03-22-2022 14:00-0400 Body temperature 95.9 [degF] Jose Julien Other [employer] Other 03-22-2022 14:00-0400 Body weight 104.78 kg Jose Julien Other [employer] Other 03-22-2022 14:00-0400 Diastolic blood pressure 70 mm[Hg] Jose Julien Other [employer] Other 03-22-2022 14:00-0400 Respiratory rate 18 /min Jose Julien Other [employer] Other 03-22-2022 14:00-0400 SaO2% (BldA) [Mass fraction] 97 % Jose Julien Other [employer] Other 03-22-2022 14:00-0400 Systolic blood pressure 119 mm[Hg] Jose Julien Other [employer] Other 06-18-2021 11:40-0500 Body height 177.8 cm Jose Julien Other [employer] Other 06-18-2021 11:40-0500 Body mass index (BMI) [Ratio] 37.22 kg/m2 Jose Julien Other [employer] Other 06-18-2021 11:40-0500 Body temperature 95.9 [degF] Jose Julien Other [employer] Other 06-18-2021 11:40-0500 Body weight 117.66 kg Jose Julien Other [employer] Other 06-18-2021 11:40-0500 Diastolic blood pressure 70 mm[Hg] Jose Julien Other [employer] Other 06-18-2021 11:40-0500 Respiratory rate 18 /min Jose Julien Other [employer] Other 06-18-2021 11:40-0500 SaO2% (BldA) [Mass fraction] 97 % Jose Julien Other [employer] Other 06-18-2021 11:40-0500 Systolic blood pressure 124 mm[Hg] Jose Julien Other [employer] Other Encounters Encounter Date Encounter Type Care Provider Facility Start: 08-14-2024 ambulatory Maribel X Orzech Facilit y:[facility] Start: 07-23-2024 ambulatory Maribel X Orzech Facilit y:[facility] Start: 07-17-2024 End: 07-17-2024 Clinisync Result Encounter Nicolle Rodriguez TOOLING SPECIALIST Work Phone: [facility] Unsolicited Start: 07-17-2024 End: 07-17-2024 Clinisync Result Encounter Nicolle Rodriguez TOOLING SPECIALIST Work Phone: [facility] External Department Unsolicited Start: 07-17-2024 End: 07-17-2024 ambulatory Will HOLLINS Facility:[facility] Start: 07-17-2024 End: 07-17-2024 Patient encounter procedure Will HOLLINS [facility] Start: 07-10-2024 End: 07-10-2024 Refill Peggy Jacobsen MA [facility] Comment on above: Centrilobular emphys zoila (CMS/HCC); Viral upper respiratory tract infection; Essential (primary) hypertension (CMS/HCC); Gastroesophageal reflux disease with esophagitis without hemorrhage; Malignant (primary) neoplasm, unspecified (CMS/HCC) Start: 06-20-2024 End: 06-20-2024 Bamboo flowsheet Nicolle Rodriguez TOOLING SPECIALIST Work Phone: [facility] Start: 06-20-2024 End: 06-20-2024 Bamboo flowsheet Nicolle Rodriguez TOOLING SPECIALIST Work Phone: [facility] Start: 06-20-2024 End: 06-20-2024 Office outpatient visit 15 minutes Nicolle Rodriguez TOOLING SPECIALIST Work Phone: [facility] Comment on above: Mixed hyperlipidemia (CMS/HCC) [...] 05-22-2024 End: 05-22-2024 Bamboo flowsheet Nicolle Rodriguez TOOLING SPECIALIST Work Phone: [facility] Start: 05-22-2024 End: 05-22-2024 Bamboo flowsheet Nicolle Rodriguez TOOLING SPECIALIST Work Phone: [facility] Start: 05-22-2024 End: 05-22-2024 Transitional care manage srvc 7 day discharge Nicolle Pinontrick TOOLING SPECIALIST Work Phone: [facility] Comment on above: Fall, subsequent enc ounter (Primary Dx); Hyperuricemia; Hyperlipidemia, unspecified (CMS/HCC); Centrilobular emphysema (CMS/HCC); Chronic right heart failure (HCC) (CMS/HCC); Malignant (primary) neoplasm, unspecified (CMS/HCC); Compression fracture of C3 vertebra with routine healing, subsequent encounter Start: 05-22-2024 End: 05-22-2024 ambulatory NICOLLE RODRIGUEZ Not Available Start: 05-22-2024 End: 05-22-2024 ambulatory Will HOLLINS Facility:[facility] Start: 05-22-2024 End: 05-22-2024 Patient encounter procedure Will HOLLINS [facility] Start: 04-23-2024 End: 04-23-2024 Office outpatient visit 15 minutes Nicolle Pinontrick TOOLING SPECIALIST Work Phone: [facility] Comment on above: Bronchitis (Primary Dx); Viral upper respiratory tract infection Start: 04-23-2024 End: 04-23-2024 ambulatory NICOLLE RODRIGUEZ Not Available Start: 04-23-2024 End: 04-23-2024 Bamboo flowsheet Nicolle Choprazpatrick TOOLING SPECIALIST Work Phone: [facility] Start: 04-23-2024 End: 04-23-2024 Bamboo flowsheet Nicolle Rodriguez TOOLING SPECIALIST Work Phone: [facility] Start: 04-18-2024 End: 04-18-2024 Clinisync Result Encounter Generic External Data Provider [facility] Unsolicited Start: 04-18-2024 End: 04-18-2024 Clinisync Result Encounter Generic External Data Provider [facility] Unsolicited Start: 03-27-2024 End: 03-27-2024 Refill Nicolle Rodriguez TOOLING SPECIALIST Work Phone: [facility] Comment on above: Hyperlipidemia, unsp ecified (CMS/HCC); Essential (primary) hypertension (CMS/HCC); Hyperuricemia; Gastroesophageal reflux disease with esophagitis without hemorrhage Start: 03-20-2024 End: 03-20-2024 Orders Only Nicolle Rodriguez TOOLING SPECIALIST Work Phone: [facility] Comment on above: Acute bacterial sinu sitis (Primary Dx) Start: 03-19-2024 End: 03-19-2024 Bamboo flowsheet Nicolle Rodriguez TOOLING SPECIALIST Work Phone: [facility] Start: 03-19-2024 End: 03-19-2024 Bamboo flowsheet Nicolle Rodriguez TOOLING SPECIALIST Work Phone: [facility] Start: 03-19-2024 End: 03-19-2024 Clinisync Result Encounter Nicolle Rodriguez TOOLING SPECIALIST Work Phone: [facility] External Department Unsolicited Start: 03-19-2024 End: 03-19-2024 Office outpatient visit 15 minutes Nicolle Rodriguez TOOLING SPECIALIST Work Phone: [facility] Comment on above: Viral upper respirat ory tract infection (Primary Dx); Acute right ankle pain; Centrilobular emphysema (CMS/HCC); Ankle injury, right, initial encounter Start: 03-19-2024 End: 03-19-2024 Refill Nicolle Rodriguez TOOLING SPECIALIST Work Phone: [facility] Comment on above: Hyperuricemia Start: 01-17-2024 End: 01-17-2024 ambulatory Will HOLLINS Facility:[facility] Start: 01-17-2024 End: 01-17-2024 Patient encounter procedure Will HOLLINS [facility] Start: 11-24-2023 End: 11-24-2023 ambulatory PATEL FAWWAD Not Available Start: 10-17-2023 End: 10-17-2023 ambulatory PATEL FAWWAD Facility: [facility] Start: 10-17-2023 End: 10-17-2023 Patient encounter procedure Will HOLLINS [facility] Start: 10-13-2023 End: 10-13-2023 ambulatory [facility] Work Phone: Start: 10-13-2023 End: 10-13-2023 Patient encounter procedure [facility] Work Phone: Start: 10-04-2023 Non-patient / Non-visit [facility] Work Phone: Start: 09-28-2023 End: 09-28-2023 ambulatory PATEL FAWWAD Not Available Start: 08-23-2023 End: 08-23-2023 ambulatory PATEL FAWWAD Not Available Start: 05-10-2023 Patient encounter procedure Nciolle Rodriguez NP Work Phone: [facility] Start: 03-17-2023 End: 03-17-2023 ambulatory Jose Julien Other [facility] [employer] Other Start: 03-17-2023 Office outpatient vi sit 15 minutes Jose Julien [facility] Start: 10-11-2022 End: 10-12-[address] WILL HOLLINS Facility:[facility] Start: 09-30-2022 End: 09-30-2022 ambulatory Jose Julien Other [employer] Other Start: 09-30-2022 Office outpatient vi sit 15 minutes Jose Julien [facility] Start: 08-23-2022 End: 08-24-2022 ambulatory PATELENMA MARQUEZD Facility:[facility] Start: 07-05-2022 End: 07-06-2022 ambulatory RUKHSANA QUETA . Facility:[facility] Start: 04-08-2022 End: 04-08-[address] COLTEN NUNO . Facility:[facility] Start: 03-24-2022 End: 03-25-2022 ambulatory RUKHSANA SAMSA . Facility:[facility] Start: 03-22-2022 End: 03-22-2022 ambulatory Jose Julien Other [employer] Other Start: 03-22-2022 Office outpatient vi sit 25 minutes Jose Julien [facility] Start: 02-16-2022 End: 02-17-2022 ambulatory PATEL H ALMAD Facility:[facility] Start: 01-01-2022 End: 01-01-[address] LUNA DUFFY . Facility:[facility] Start: 06-21-2021 End: 06-21-2021 ambulatory Jose Julien Other [employer] Other Start: 06-21-2021 Telephone encounter Jose Julien [facility] Start: 06-18-2021 End: 06-18-2021 ambulatory Jose Julien Other [employer] Other Start: 06-18-2021 Office outpatient vi sit 25 minutes Jose Julien [facility] Procedures Date Procedure Procedure Detail Performing Clinician Start: 07-17-2024 ALL CBC WITH AUTO DIFF Nicolle Rodriguez TOOLING SPECIALIST Work Phone: Start: 04-18-2024 MHPT PSA, DIAGNOSTIC Ge neric External Data Provider Start: 03-19-2024 SARS-COV-2 AG* Nicolle Rodriguez TOOLING SPECIALIST Work Phone: Start: 03-19-2024 TB INFLUENZA A AND B AG Nicolle Rodriguez TOOLING SPECIALIST Work Phone: Start: 10-11-[address] WINIFRED HOLLINS Comment on above: Performed By: #### P SAD ####[place] [id number] [place] [id number] White Start: 03-24-2011 Brachytherapy Will C ChantellCHAYA Start: 06-06-2000 Excision of left kidney Will GURVINDER Cataract (disorder) Will GURVINDER Extraction of wisdom tooth G kerry HOLLINS History of hernia repair Eri gabriel HOLLINS Plan of Treatment Date Care Activity Detail Author Start: 09-22-2026 Screening for malign ant neoplasm of colon [facility] Start: 09-18-2024 End: 09-18-2024 Patient encounter procedure 09/18/2024 9:30 AM EDT Office Visit [facility] [address] [place] [address] Nicolle Rodriguez, NIC [address] [place] [address] [facility] Start: 06-20-2024 End: 06-20-2025 CBC W Auto Differential panel - Blood CBC and differential Lab Routine Mixed hyperlipidemia (CMS/HCC) Stage 3a chronic kidney disease (HCC) (CMS/HCC) Primary hypertension (CMS/HCC) Expected: 06/20/2024 (Approximate), Expires: 06/20/2025 [facility] Comment on above: Expected: 06/20/2024 (Approximate), Expires: 06/20/2025 Start: 06-20-2024 End: 06-20-2025 Comprehensive metabolic 2000 panel - Serum or Plasma Comprehensive metabolic panel Lab Routine Mixed hyperlipidemia (CMS/HCC) Stage 3a chronic kidney disease (HCC) ([facility]/HCC) Primary hypertension (CMS/HCC) Expected: 06/20/2024 (Approximate), Expires: 06/20/2025 [facility] Healthcare Comment on above: Expected: 06/20/2024 (Approximate), Expires: 06/20/2025 Start: 06-20-2024 End: 06-20-2025 Lipid 1996 panel - Serum or Plasma Lipid panel Lab Routine Mixed hyperlipidemia (CMS/HCC) Expected: 06/20/2024 (Approximate), Expires: 06/20/2025 [facility] Work Phone: Comment on above: Expected: 06/20/2024 (Approximate), Expires: 06/20/2025 Start: 06-20-2024 End: 06-20-2024 Patient encounter procedure 06/20/2024 9:30 AM EST Office Visit [facility] [address] [place] [address] Nicolle Rodriguez, NIC [address] [place] [address] Arrived [facility] Comment on above: Arrived Start: 06-19-2024 End: 06-19-2024 Patient encounter procedure 06/19/2024 9:30 AM EST Office Visit [facility] [address] [place] [address] Nicolle Rodriguez NP [address] [place] [address] [facility] Start: 05-22-2024 End: 05-22-2024 Patient encounter procedure 05/22/2024 11:00 AM EST Office Visit [facility] [address] [place] [phone] Nicolle Rodriguez, TOOLING SPECIALIST [address] [place] [id number] Arrived [facility] Comment on above: Arrived Start: 05-10-2024 Medicare Annual Wellness (AWV) Medicare Annual Wellness (AWV) [facility] Start: 04-23-2024 End: 04-23-2024 Patient encounter procedure 04/23/2024 3:00 PM EST Office Visit [facility] [address] [place] [address] Nicolle Rodriguez, TOOLING SPECIALIST [address] [place] [address] Arrived [facility] Comment on above: Arrived Start: 03-19-2024 End: 03-19-2025 COVID-19 / [place]B [place] Lab Routine Viral upper respiratory tract infection Expected: 03/19/2024 (Approximate), Expires: 03/19/2025 [facility] Work Phone: Comment on above: Expected: 03/19/2024 (Approximate), Expires: 03/19/2025 Start: 03-19-2024 End: 03-19-2024 Patient encounter procedure 03/19/2024 9:00 AM EDT [facility] [address] [place] [address] Nicolle Rodriguez, TOOLING SPECIALIST [address] [place] [address] Arrived [facility] Comment on above: Arrived Start: 02-05-2024 Influenza vaccination Influenza Vacc ine (#1) [facility] Start: [birth year]21-1961 Pneumococcal Vaccine : 65+ Years (1 of 2 - PCV) Pneumococcal Vaccine: 65+ Years (1 of 2 - PCV) [facility] Start: 1955 Screening for malign ant neoplasm of colon [facility] Microalbumin/Creatin ine panel in random Urine Microalbumin / creatinine urine ratio Lab Routine Primary hypertension (CMS/HCC) Ordered: 06/20/2024 [facility] Comment on above: Ordered: 06/20/2024 Renal function 2000 panel - Serum or Plasma [facility] XR Ankle - right 3 Views XR ankle 3+ views right Imaging Routine Acute right ankle pain Ordered: 03/19/2024 [facility] Comment on above: Ordered: 03/19/2024 [facility] Immunizations Immunization Date Immunization Notes Care Provider Blake blair 03-17-2023 influenza virus vaccine, unspecified formulation Will GURVINDER [facility] 03-17-2023 Influenza, High-dose Seasonal, Quadrivalent, Preservative Free Nicolle Rodriguez TOOLING SPECIALIST Work Phone: [facility] 03-27-2022 influenza virus vaccine, unspecified formulation Will HOLLINS [facility] 03-27-2022 Influenza, High-dose Seasonal, Quadrivalent, Preservative Free Nicolle Rodriguez TOOLING SPECIALIST Work Phone: [facility] 05-27-2021 SARS-CoV-2 (COVID-19 ) mRNA-1273 vaccine Will HOLLINS [facility] Comment on above: Result Comment: [facility] 03-26-2021 influenza virus vaccine, unspecified formulation Will HOLLINS [facility] 03-26-2021 Influenza, High-dose Seasonal, Quadrivalent, Preservative Free Nicolle Rodriguez TOOLING SPECIALIST Work Phone: [facility] 11-21-2020 SARS-CoV-2 (COVID-19 ) mRNA-1273 vaccine Will GoChime [facility] 10-16-2020 SARS-CoV-2 (COVID-19 ) mRNA-1273 vaccine Will GoChime [facility] 02-05-2020 influenza virus vaccine, unspecified formulation Will HOLLINS [facility] 05-14-2014 influenza virus vaccine, unspecified formulation Will HOLLINS [facility] 05-14-2014 influenza, seasonal, injectable Nicolle Rodriguez NP Work Phone: [facility] Healthcare Payers Date Payer Category Payer Medicaid [id number] 2012 Medicaid [place] [employer] [id number] 501 [id number] 1959 Medicare [id number] [id number] 1956 Unknown [id number] 2.16.840.1.770593.3.579.2.593 1956 Unknown [id number] 2.16.840.1.244429.3.579.2.593 1956 Unknown [id number] 2.16.840.1.522851.3.579.2.593 1956 Unknown [id number] 2.16.840.1.087452.3.579.2.593 1956 Unknown [id number] 2.16.840.1.220002.3.579.2.593 1956 Unknown [id number] 2.16.840.1.547393.3.579.2.593 1956 Unknown [id number] 2.16.840.1.143385.3.579.2.593 1956 Unknown [id number] 2.16.840.1.400417.3.579.2.59 1956 Unknown [id number] 2.16.840.1.056728.3.579.2.1259 1956 Unknown [id number] 2.16.840.1.955241.3.579.2.1258 1956 Unknown [id number] 2.16.840.1.856597.3.579.2.125 1956 Unknown [id number] 2.16.840.1.357885.3.579.2.1258 1956 Unknown [id number] 2.16.840.1.646296.3.579.2.1258 1956 Unknown [id number] 2.16.840.1.701766.3.579.2.1258 1956 Unknown [id number] 2.16.840.1.807666.3.579.2.1258 1956 Unknown [id number] 2.16.840.1.221027.3.579.2.727 1956 Unknown [id number] 2.16.840.1.716678.3.579.2.727 1956 Unknown [id number] 2.16.840.1.630521.3.579.2.727 1956 Unknown [id number] 2.16.840.1.107369.3.579.2.72 1956 Unknown [id number] 2.16.840.1.758296.3.579.2.72 1956 Unknown [id number] 2.16.840.1.360964.3.579.2.727 Medicaid [employer] [id number] Self-pay Self Pay [id number] Unknown [employer] GHAZALA [id number] Social History Date Type Detail Facility Unknown if ever smoked [employer] Other Start: 05-10-2023 End: 11-24-2023 Sex Assigned At [facility] Start: 10-13-2023 Tobacco smoking stat [facility] Smoker (finding) [facility] Start: 1955 Sex Assigned At Male [facility] Start: 10-17-2023 End: 01-17-2024 Tobacco smoking status Light tobacco smoker (finding) [facility] Tobacco smoking status Never [facility] Start: 11-24-2023 Tobacco smoking stat [facility] [...] Comment caffene: 1-2 c ups per day [facility] Start: 1955 Sex assigned at Not on file N [facility] Functional Status Date Assessment Result Facility 01-17-2024 Functional Status N/A [facility] 10-17-2023 Functional Status N/A [facility] Clinical Notes 06-18-2021 to 07-10-2024 Telephone Encounter - Peggy Jacobsen MA - 07/10/2024 10:13 AM ESTTelephone Encounter - Peggy Jacobsen MA - 07/10/2024 10:13 AM Chai Rodriguez NP - 06/20/2024 9:49 AM ESTPatient Instructions Note Date & Type Note Facility 07-10-2024 Miscellaneous Notes ROBYN:06/20/2024 NOV:09/18/2024 documented in this encounter [facility] 07-10-2024 Telephone encounter Note ROBYN:06/20/2024 NOV:09/18/2024 [facility] 06-20-2024 History of Presen t illness [...] obstructive pulmonary disease) with emphysema ([facility]) Follows closely with Dr. Rojas. Has had multiple hospitalizations this year due to exacerbations. Is still a current 0.5ppd smoker. Currently taking Symbicort Atrovent Albuterol. Continue current regimen as directed by pulmonology. Relevant Medications albuterol HFA 90 mcg/act inhaler budesonide-formoterol (Symbicort) 160-4.5 MCG/ACT inhaler Mixed hyperlipidemia ([facility]) - Primary Relevant Orders Lipid panel Comprehensive metabolic panel CBC and differential Primary hypertension ([facility]) Currently taking Losartan 50mg Furosemide 20mg Metoprolol [...] Chronic kidney disease, stage 3 unspecified (HCC) ([facility]) Relevant Orders Comprehensive metabolic panel CBC and differential Other Visit Diagnoses Hyperuricemia Relevant Medications allopurinol (Zyloprim) 100 MG tablet Hyperlipidemia, unspecified ([facility]) Relevant Medications atorvastatin (Lipitor) 40 MG tablet [...] 24 hr capsule documented in this encounter [facility] 05-22-2024 Hospital Discharg e instructions Follow Up Care 05/22/2024 09:56:54 With:GURVINDER HENDRICKSON, Will Day, URL Address: [address] [place] [address] [place], [place] [id number]- When: Unknown [facility] 05-22-2024 History of Presen t illness [...] obstructive pulmonary disease) with emphysema ([facility]) Was admitted at [facility] on 05/08 for COPD exacerbation. Was discharged on 05/09/2024. Was treated with Levaquin 750mg And prednisone. Is still smoking 0.5ppd outside. Has not followed up with Assembler Body-Dr. Rojas since discharge. States he feekls he [...] for Hospital Follow-up. HPI Was admitted at [facility] on 05/08 for COPD exacerbation. Was discharged on 05/09/2024. Was treated with Levaquin 750mg And prednisone. Is still smoking 0.5ppd outside. Has not followed up with [employer]-Dr. Rojas since discharge. States he feekls he [...] obstructive pulmonary disease) with emphysema ([facility]) Was admitted at [facility] on 05/08 for COPD exacerbation. Was discharged on 05/09/2024. Was treated with Levaquin 750mg And prednisone. Is still smoking 0.5ppd outside. Has not followed up with [employer]-Dr. Rojas since discharge. States he feekls he [...] 24 hr capsule documented in this encounter [facility] 05-22-2024 Instructions Nicolle Rodriguez NP - 05/22/2024 11:00 AM EST Please follow up with Dr. Rojas soon! Severe pain, numbness, tingling, headaches, loss of bowel or bladder function GO TO ER! Shortness of breath, wheezing, chest pain GO TO ER! documented in this encounter [facility] 04-24-2024 History of Presen t illness [...] 69 y.o. male who presents for Follow-up ([facility] er f/up URI). HPI Was seen in [...] 20 MG tablet documented in this encounter [facility] 04-23-2024 Instructions Nicolle Rodriguez NP - [...] NEAREST EMERGENCY DEPARTMENT. documented in this encounter [facility] 03-19-2024 History of Presen t illness [...] [facility] Pulmonology- Dr. Rojas Cardiology- Dr. Victoria Urology- [...] obstructive pulmonary disease) with emphysema ([facility]) URI (upper respiratory infection) - Primary Sinus congestion, runny nose, body aches X10 days. Discussed likely viral etiology. Ordered COVID/Flu/RSV panel. Recommended rest, fluids, OTC management for now. Relevant Orders COVID-19 / [place] A/B / [place] Ankle injury, right, initial encounter Rolled ankle;e 2 weeks ago. Did not receive tx or imaging. Reports swelling and tenderness still Is able to bear weight and ambulate, but does report associated pain. Selling noted on observation. No discoloration observed. Xray ankle ordered. Other Visit Diagnoses Acute right ankle pain Relevant Orders XR ankle 3+ views right documented in this encounter [facility] 03-19-2024 Instructions Nicolle Rodriguez NP - [...] NEAREST EMERGENCY DEPARTMENT. documented in this encounter [facility] 01-17-2024 Hospital Discharg e instructions Patient [...] if anything looks unusual. Men with a rdvovb-rooh-ffpfdw risk for skin cancer may want to see a bark skinner (malt liquors sales supervisor) for an annual body check. What are the benefits of screening? Cancer screening is done to look for cancer in the very early stages, before it spreads and becomes harder to treat and before you would start to notice symptoms. Finding cancer early improves the chances of successful treatment. It may save your life. Where to find more information [employer] Cancer Society: www.cancer.org Centers for Disease Control and Prevention: www.cdc.gov National Cancer Plains: www.cancer.gov Contact a health care provider if: [...] provider. Document Revised: 10/19/2021 Document Reviewed: 04/18/2020 [employer] Patient Education 2022 [employer]. Follow Up Care 10/17/2023 10:47:32 With:GURVINDER HENDRICKSON, Will Day, URL Address: [address] [facility] [address] [place] [address]- When: Unknown [facility]i 01-17-2024 Note Patient Education Oncology [...] if anything looks unusual. Men with a iqnbyf-hcaw-sstknq risk for skin cancer may want to see a bark skinner (malt liquors sales supervisor) for an annual body check. What are the benefits of screening? Cancer screening is done to look for cancer in the very early stages, before it spreads and becomes harder to treat and before you would start to notice symptoms. Finding cancer early improves the chances of success (more content not included)... [facility] 10-17-2023 Hospital Discharg e instructions Patient [...] the likelihood that the cancer will spread. Brookesmith 6 or lower: This indicates that the [...] stress of having cancer. General instructions Take cnga-vhb-qqamkgg and prescription medicines only as told by your health care provider. If you have to go to the hospital, notify your cancer specialist (oncologist). Keep all follow-up visits. This is important. Where to find more information Welsh Cancer Society: www.cancer.org Welsh Society of Clinical Oncology: www.cancer.net National Cancer Plains: www.cancer.gov Contact a health care provider if: [...] provider. Document Revised: 08/19/2021 Document Reviewed: 08/19/2021 [employer] Patient Education 2022 [employer]. Follow Up Care 10/15/2022 10:10:00 With:GURVINDER HENDRICKSON, Will Day, URL Address: [facility] [place] [address]- When: Unknown [facility] 03-17-2023 Evaluation note Encounter Date [...] Monitor LFTs and lipid profile with PCP. [employer] Other 04-27-2023 Evaluation note* Encounter Date Diagnosis [...] have gout. I have prescribed oral Allopurinol [employer] Other 10-17-2022 Evaluation note* Encounter Date Diagnosis [...] the goal. 17 Mar, 2022 Solitary kidney (ICD -10 - Q60.0) He has a solitary right kidney. Mar, Hyperuricemia (ICD-1 0 - E79.0) He has hyperuricemia due to the CKD and reported to have gout. I have prescribed oral Allopurinol [employer] Other 07-29-2022 NotePROCEDURE: XR FEMUR LT HISTORY: [...] Electronically authenticated by: LUCAS GOLDSTEIN Date: 2022-01-01 08:35[facility]01-13-2022 Evaluation note* Encounter Date Diagnosis Assessment [...] Q60.0) He has a solitary right kidney. [employer] Other Evaluation + Plan note Future Appointments Appointment Date:01/16/2024 09:45:00 AM Scheduled Provider:Will HOLLINS MD Location:[facility] Appointment Type:URO Office Visit Diagnostic Tests Pending * PSA Total 11/05/23 [facility] evaluation + Plan note Future Appointments Appointment Date:05/22/2024 09:30:00 AM Scheduled Provider:Will HOLLINS MD Location:[facility] Appointment Type:URO Office Visit Diagnostic Tests Pending * PSA Total 01/17/24 [facility] Evaluation + Plan note Future Appointments Appointment Date:07/17/2024 08:30:00 AM Scheduled Provider:Will HOLLINS MD Location:[facility] Appointment Type:URO Office Visit [facility] evaluation + Plan note Future Appointments Appointment Date:07/23/2024 12:30:00 PM Scheduled Provider:AME Henry APRN, [place] X Location:[facility] Appointment Type:URO Office Visit [facility] evaluation noteNo [facility] [employer] Other evaluation note* Diagnosis Onset Date Resolution Status Anemia of renal disease acut e CKD (chronic kidney disease) stage 3, GFR 30-59 ml/min acute Hyperlipidemia acute [id number] acute Hyperuricemia acute Hypomagnesemia acute Secondary hyperparathyroidism acute Solitary kidney, acquired [place] [facility] Work Phone: evaluation note* Diagnosis Primary [...] healing, subsequent encounter documented in this encounter [facility] HealthcareEvaluation note* Diagnosis Primary hypertension (CMS/HCC)- Primary [...] neoplasm, unspecified (CMS/HCC) documented in this encounter [facility] HealthcareEvaluation note* Diagnosis Primary hypertension (CMS/HCC)- Primary [...] encounter [facility] general Narrative - ReportedNort [employer] Other [employer] general Narrative - Reported* Type Description Date [...] BLOOD PRESSURE WAS 60/40 , DEHYDRATION 04/2021 [employer] Other [employer] general Narrative - Reported* Type Description Date [...] BLOOD PRESSURE WAS 60/40 , DEHYDRATION 04/2021 [employer] Other History general Narrative - Reported* Type [...] BLOOD PRESSURE WAS 60/40 , DEHYDRATION 04/2021 [employer] Other Hospital course Narrative No data available for this section [facility] [employer] Hospital Discharge instructions No data available for this section [facility] [employer] Progress note No data available for this section [facility] [employer] Summary Purpose Family History No Family History [...] disease) stage 3, GFR 30-59 ml/min Hyperlipidemia [id number] Hyperuricemia Hypomagnesemia Secondary hyperparathyroidism Solitary kidney, acquired Additional Source Comments REASON FOR VISIT (unrecogniz ed section and content) Reason Onset Date Comments Med Refill 07/10/2024 Reason Comments Hospital Follow-up Reason Comments Follow-up [facility] er f/up URI Reason Onset Date Comments [...] DATE CREATED AUTHOR AUTHOR'S ORGANIZ ATION 06/23/2024 [facility] EPIC DATE CREATED AUTHOR AUTHOR'S ORGANIZ ATION 07/23/2024 [facility] Care Teams (unrecognized sec tion [...] October 13, 2023 End: October 13, 2023 Scientist Propagator Relationship Specialty Start Date End Date Shaikh Gagnon MD [address] [place] [address] PCP - [employer] 06/06/23 Rm Rainey MD [address] [place] [address] PCP - General Family Medicine 01/16/24 Nicolle Rodriguez NP [address] [place] [address] Nurse Practitioner Family Medicine 01/16/24 Scientist Propagator Relationship Specialty Start Date End Date Shaikh Gagnon MD [address] [place] [address] PCP - [employer] 06/06/23 Rm Rainey MD [address] [place] [address] PCP - General Family Medicine 01/16/24 Nicolle Rodriguez NP [address] [place] [address] Nurse Practitioner Family Medicine 01/16/24 Scientist Propagator Relationship Specialty Start Date End Date Shaikh Gagnon MD [address] [place] [address] PCP - [employer] 06/06/23 Rm Rainey MD [address] [place] [address] PCP - General Family Medicine 01/16/24 Nicolle Rodriguez NP [address] [place] [address] Nurse Practitioner Family Medicine 01/16/24 Scientist Propagator Relationship Specialty Start Date End Date Shaikh Gagnon MD [address] [place] [address] PCP - [employer] 06/06/23 Rm Rainey MD [address] [place] [address] PCP - General Family Medicine 01/16/24 Nicolle Rodriguez NP [address] [place] [address] Nurse Practitioner Family Medicine 01/16/24 Scientist Propagator Relationship Specialty Start Date End Date Shaikh Gagnon MD [address] [place] [address] PCP - [employer] 06/06/23 Rm Rainey MD [address] [place] [address] PCP - General Family Medicine 01/16/24 Nicolle Rodriguez NP [address] [place] [address] Nurse Practitioner Family Medicine 01/16/24 Scientist Propagator Relationship Specialty Start Date End Date Shaikh Gagnon MD [address] [place] [address] PCP - [employer] 06/06/23 Unallocated, Noms MD [address] [address] PCP - General Family Medicine 03/20/24 Nicolle Rodriguez NP [address] [place] [address] Nurse Practitioner Family Medicine 01/16/24 Scientist Propagator Relationship Specialty Start Date End Date Shaikh Gagnon MD [address] [place] [address] PCP - [employer] 06/06/23 Rm Rainey MD [address] [place] [address] PCP - General Family Medicine 04/05/24 Nicolle Rodriguez NP [address] [place] [address] Nurse Practitioner Family Medicine 01/16/24 Scientist Propagator Relationship Specialty Start Date End Date Shaikh Gagnon MD [address] [place] [address] PCP - [employer] 06/06/23 Rm Rainey MD [address] [place] [address] PCP - General Family Medicine 04/05/24 Nicolle Rodriguez NP [address] [place] [address] Nurse Practitioner Family Medicine 01/16/24 Scientist Propagator Relationship Specialty Start Date End Date Shaikh Gagnon MD [address] [place] [address] PCP - [employer] 06/06/23 Rm Rainey MD [address] [place] [address] PCP - General Family Medicine 04/05/24 Nicolle Rodriguez NP [address] [place] [address] Nurse Practitioner Family Medicine 01/16/24 Scientist Propagator Relationship Specialty Start Date End Date Shaikh Gagnon MD [address] [place] [address] PCP - [employer] 06/06/23 Rm Rainey MD [address] [place] [address] PCP - General Family Medicine 04/05/24 Nicolle Rodriguez NP [address] [place] [address] Nurse Practitioner Family Medicine 01/16/24 Scientist Propagator Relationship Specialty Start Date End Date Shaikh Gagnon MD [address] [place] [address] PCP - [employer] 06/06/23 Rm Rainey MD [address] [place] [address] PCP - General Family Medicine 04/05/24 Nicolle Rodriguez, NIC [address] [place] [address] Nurse Practitioner Family Medicine 01/16/24 Scientist Propagator Relationship Specialty Start Date End Date Shaikh Gagnon MD [address] [place] [address] PCP - [employer] 06/06/23 Rm Rainey MD [address] [place] [address] PCP - General Family Medicine 04/05/24 Nicolle Rodriguez NP [address] [place] [address] Nurse Practitioner Family Medicine 01/16/24 Scientist Propagator Relationship Specialty Start Date End Date Shaikh Gagnon MD [address] [place] [address] PCP - [employer] 06/06/23 Rm Rainey MD [address] [place] [address] PCP - General Family Medicine 04/05/24 Nicolle Rodriguez NP [address] [place] [address] Nurse Practitioner Family Medicine 01/16/24 Scientist Propagator Relationship Specialty Start Date End Date Shaikh Gagnon MD [address] [place] [address] PCP - [employer] 06/06/23 Rm Rainey MD [address] [place] [address] PCP - General Family Medicine 04/05/24 Nicolle Rodriguez NP [address] [place] [address] Nurse Practitioner Family Medicine 01/16/24 Scientist Propagator Relationship Specialty Start Date End Date Shaikh Gagnon MD [address] [place] [phone] PCP - [employer] 06/06/23 Rm Rainey MD [address] [place] [address] PCP - General Family Medicine 04/05/24 Nicolle Rodriguez NP [address] [place] [address] Nurse Practitioner Family Medicine 01/16/24 Goals (unrecognized [...] BE BASED ON THE PRIMARY CLINICAL RECORDS. [facility]. provides no warranty or guarantee of the accuracy or completeness of information in this document.
[2024-08-14 11:25] LABS: Prostate Specific Antigen Dx <0.13 ng/mL (<=4.00)
== END 2024-08-14 09:39 | disposition home or self-care (01) ==
LOC: LAB 09:40
PROVIDERS: Visit Provider Nurse Practitioner Family
DX: N40.1 Benign prostatic hyperplasia with lower urinary tract symptoms (principal); Z85.46 Personal history of malignant neoplasm of prostate; R97.21 Rising PSA following treatment for malignant neoplasm of prostate
CPT/HCPCS: 36415; 84153

== ENCOUNTER 2024-10-12 13:19 | Outpatient (OUT) | payer MEDICARE, SELFPAY ==
--- NOTE | 2024-10-12 13:21 | CT_ITS ---
The [address] [address] Patient Name: ABBEY IRVING MRN: [id number] date: 1955 Sex: M Assigned Patient Location: CT Current Patient Location: CT Accession/Order Number: [id number] Exam Date: 10/12/2024 14:40 Report Date: 10/12/2024 14:43 At the request of: RUKHSANA AGUILAR DO Procedure: CT chest wo con CT CHEST WITHOUT IV CONTRAST: CLINICAL HISTORY: Abnormal CT Lung Screening COMPARISON: Lung screening CT 07/05/2022, CT chest 10/11/2022 TECHNIQUE: Spiral images were obtained through the chest without IV contrast. This CT exam was performed using one or more following dose reduction techniques: Automated exposure control, adjustment of the mA and/or kV according to patient size, or use of iterative reconstruction technique. FINDINGS: Mediastinum:Thoracic aorta appears normal in caliber. Pulmonary trunk appears nondilated. No pericardial effusion or lymphadenopathy. The esophagus is grossly unremarkable. Lungs:No consolidation pneumothorax or pleural effusion. Mild lung scarring and bronchial wall thickening. No suspicious pulmonary nodule. Abd:Liver and splenic granulomas. Calcification the region of the left adrenal gland likely sequela of prior hemorrhage or trauma. Soft tissues/Bones: No acute findings. CT/CT chest wo con IMPRESSION: No acute findings. No suspicious pulmonary nodule. LUNG RADS: Category 1, Negative (No nodules and definitely benign nodules). Management: Continue annual lung screening with LDCT in 12 months. Impression dictated by: Horace Lantigua Jr., D.O. 10/12/2024 2:43 PM Dictation Location: [place] [address] Electronically authenticated by: [id number] Y Date: 10/12/2024 14:43
== END 2024-10-12 13:20 | disposition home or self-care (01) ==
LOC: CT 13:19
PROVIDERS: PCP Nurse Practitioner; Visit Provider Internal Medicine
DX: R91.8 Other nonspecific abnormal finding of lung field (principal)
CPT/HCPCS: 71250

== ENCOUNTER 2024-11-14 10:20 | Outpatient (OUT) | payer MEDICARE, SELFPAY ==
--- OUTSIDE RECORDS SUMMARY | 2024-08-21 05:08 | XMS_ITS ---
Author Organization The [facility] in [place] Address [address] [place] [address] Care Team Providers Care Improvement Analyst Name Role Phone Susan Edward CNP Primary Care Provider Unavail Dhiraj Bingham Unavailable [phone] REASON FOR VISIT No Show Appointment Social History Sex Assigned At : Social History Observation Description Sex Assigned At Male Encounters Encounter Location Date Provider Diagnosis Pulmonary Medicine [place] [address] [place] [address] 08/21/2024 Dhirajrony Red Plan Of Treatment Next Appt Details Provider Name:Dhiraj Rojas, 10/16/2025 11:00:00 AM, [address] [place], [address], Progress Notes * Marco IRVING LDOB:[birth year] (69 yo M)Acc No.[id number]:08/21/2024 Patient: Serafin Marco OSWALD :1955 A ge:69 Y S ex:Male Address:[address], [place], [address] * true * Date: Generated for Esther ng/Fadeniseg/eTransmitting on: 0 11/14/2024 10:31 AM EDT
--- OUTSIDE RECORDS SUMMARY | 2024-10-03 10:00 | XMS_ITS ---
Author Organization [facility] Ma in [place] Address [address] [place] [address] Care Team Providers Care Kiln Drawer Name Role Phone AichholSusan griffith CNP Primary Care Provider Unavail able Dhiraj Rojas Unavailable [phone] Allergies No Known Allergies Results Component Value Reference Range Notes CT Chest w/o contrast Reviewed date:10/15/2024 07:17:03 AM Interpretation: Performing Lab: Notes/Report: REASON FOR VISIT 1YR-COPD, MATILDA Medications Medication SIG (Take, Route, Frequency, Duration) Notes Start Date End Date Status Nitrostat 0.4 MG as directed Sublingual Active Omeprazole 40 MG TAKE 1 CAPSULE BY [facility] DAILY Oral for 30 Days Active Metoprolol Tartrate 25 MG 1 tablet with food Orally Twice a day Active Vitamin D3 50 MCG (1999) 1 capsule Or ally Once a day Active Losartan Potassium 50 MG 1 tablet Orally Once a day Active Allopurinol 100 MG 1 tablet Orally Once a day Active Atorvastatin Calcium 40 MG 1 tablet Oral ly Once a day Active Furosemide 20 MG 1 tablet Orally Once a day Active Baclofen 5 MG 1 tablet as needed O rally Once a day Active Flomax 0.4 MG 1 capsule Orally Onc e a day Active Symbicort 160-4.5 MCG/ACT 2 puffs Inhala tion Twice a day Active Ventolin HFA 108 (90 Base) MCG/ACT 2 puffs as needed Inhalation every 4 hrs Active Social History Tobacco Use: Social History Observation Description Date Details (start date - stop date) Current Smoker NA - NA Sex Assigned At : Social History Observation Description Sex Assigned At Male Tobacco Control (Standard) Question Answer Notes Tobacco use: Current every day smoker Additional Findings: Tobacco user Heavy cigarett e smoker (20-39 cigs/day) Encounters Encounter Location Date Provider Diagnosis [facility] [place] [address] [place] [address] 10/03/2024 Dhiraj Rojas MATILDA (obstructive sle ep apnea) G47.33 ; Centrilobular emphysema J43.2 ; Hoarseness R49.0 ; Cigarette nicotine dependence with nicotine-induced disorder F17.219 ; Abnormal CT lung screening R91.8 ; MCC (current) use of inhaled steroids Z79.51 ; Obesity, unspecified E66.9 and Body mass index [BMI] 33.0-33.9, adult Z68.33 Assessments Encounter Date Diagnosis (ICD Code) Assessment Notes Treatment Notes Treatment Clinical Notes Section Notes 10/03/2024 MATILDA (obstructive sleep apnea) (ICD-10 - G47.33) Erwe-sn-wdzi encounter performed with the patient to document continued need for PAP therapy. -Split-night study 03/24/2023: AHI 23 -Compliance was reviewed from: 07/24/2023 - 08/22/2023-Current mode & pressures: AirSense 11 AutoSet CPAP [id number] AHI: 7.2-Air leak (95th percentile): 51.4L/min-Mask/korina ness fitting: Has difficulty getting his mask to stay put often as he has an underbite. He also has a dog that jumps onto his bed and tries to nudge the mask off-Sleep quality: Good sleep quality with use. States he does not sleep well without it.-Daytime hypersomnolence: Decreased with use.-Recommendatio ns: AHI has worsened slightly since last visit with increased air leak. Discussed mask fitting. Attempt to avoid the dog nudging his mask as best able. Continues to have better symptom control. No changes to pressure at this time. Continue to use the CPAP @ HS & naps. 10/03/2024 Centrilobular emphysema (ICD-10 - J43.2) Respiratory status appears well-controlled at this time on Symbicort. He asked about Trelegy. Explained that this inhaler adds a LAMA which could worsen his dry mouth and can affect his urination. With the larger particle size of the Ellipta device, that could potentially worsen his hoarseness. He voiced he was very happy with his Symbicort and does not want to change it after discussion. 10/03/2024 Hoarseness (ICD-10 - R49.0) New hoarseness, ongoing ~2 months. Etiology unclear...GERD/LPR ? Candidiasis? Throat cancer secondary to tobacco abuse? I recommended referral to ENT and even offered to place it, but he refused at this time. His next appointment with Dr. Gagnon is in ~2 months and he stated if he is still hoarse then, he will ask Dr. Gagnon for a referral to ENT at that time. I told him in the meantime if he reconsiders the referral to let me know and I will send one in. 10/03/2024 Cigarette nicotine dependence with nicotine-induced disorder (ICD-10 - F17.219) He continues to smoke and yet again I counseled him on cessation. 10/03/[address] lung screening (ICD-10 - R91.8) F/U chest CT 10/11/2022 showed resolution of the abnormal findings. He can resume annual LDCT screening. I was going to order LDCT for 10/2023, but Dr. Gagnon already ordered it, so will use his order at this time - patient was counseled that the LDCT SHOULD be done in October to maintain the annual evaluation. 10/03/2024 MCC (current) use of inhaled steroids (ICD-10 - Z79.51) was counseled to rinse & gargle with water after inhaled corticosteroid use. 10/03/2024 Obesity, unspecified (ICD-10 - E66.9) Weight loss indicated. 10/03/2024 Body mass index [BMI] 33.0-33.9, adult (ICD-10 - Z68.33) Plan Of Treatment Medication Medication Name Sig Start Date Stop Date Notes Symbicort 160-4.5 MCG/ACT 2 puffs Inhala tion Twice a day Ventolin HFA 108 (90 Base) MCG/ACT 2 puffs as needed Inhalation every 4 hrs Treatment Notes Assessment Notes MATILDA (obstructive sleep apnea) Rneb-bh-goef encounter performed with the patient to document continued need for PAP therapy. -Split-night study 03/24/2023: AHI 23 -Compliance was reviewed from: 07/24/2023 - 08/22/2023-Current mode & pressures: AirSense 11 AutoSet CPAP [id number] AHI: 7.2-Air leak (95th percentile): 51.4L/min-Mask/harness fitting: Has difficulty getting his mask to stay put often as he has an underbite. He also has a dog that jumps onto his bed and tries to nudge the mask off-Sleep quality: Good sleep quality with use. States he does not sleep well without it.-Daytime hypersomnolence: Decreased with use.-Recommendations: AHI has worsened slightly since last visit with increased air leak. Discussed mask fitting. Attempt to avoid the dog nudging his mask as best able. Continues to have better symptom control. No changes to pressure at this time. Continue to use the CPAP @ HS & naps. Centrilobular emphysema Respiratory status appears well-controlled at this time on Symbicort. He asked about Trelegy. Explained that this inhaler adds a LAMA which could worsen his dry mouth and can affect his urination. With the larger particle size of the Ellipta device, that could potentially worsen his hoarseness. He voiced he was very happy with his Symbicort and does not want to change it after discussion. Hoarseness New hoarseness, ongoing ~2 months. Etiology unclear...GERD/LPR? Candidiasis? Throat cancer secondary to tobacco abuse? I recommended referral to ENT and even offered to place it, but he refused at this time. His next appointment with Dr. Gagnon is in ~2 months and he stated if he is still hoarse then, he will ask Dr. Gagnon for a referral to ENT at that time. I told him in the meantime if he reconsiders the referral to let me know and I will send one in. Cigarette nicotine dependenc e with nicotine-induced disorder He continues to smoke and yet again I counseled him on cessation. Abnormal CT lung screening F/U chest CT 10/11/2022 showed resolution of the abnormal findings. He can resume annual LDCT screening. I was going to order LDCT for 10/2023, but Dr. Gagnon already ordered it, so will use his order at this time - patient was counseled that the LDCT SHOULD be done in October to maintain the annual evaluation. 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 Obesity, unspecified Weight loss indicated. Next Appt Details Provider Name:Dhiraj Rojas, 10/16/2025 11:00:00 AM, [address] [place], [address], Procedure Notes * Category Sub-Category Detail Notes PFT Data: 06/30/2020-FEV1/F VC: 86%-FEV1: 64%-FVC: 72%-Bronchodilator response: Positive-RV: 178%-T%-DLCO: 63%-Flow-volume loop: Moderate obstructive11/19/2013-FEV1/FVC: 68%-FEV1: 64%-FVC: 72%-Broncodilator response: Positive in FEV1-RV: 151%-T%-DLCO: 76% Alpha-1 Antitrypsin Screening Date: 05/26/2020 Genotype: M/M Progress Notes * Marco IRVING LDOB:[birth year] (69 yo M)Acc No.[id number]:10/03/2024 Follow Up Patient: Serafin MARGRETMarco Beverley Provider: Serafin Rojas DO :1955 A ge:69 Y S ex:Male Date:10/03/2024 Address:[address] [place] [address], [address] Pcp:Susan Edward 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 He was rescheduled. A CT chest was to have been ordered by his PCP, but it was not. I ordered it so it would be completed by the time of his rescheduled visit. [place] Sleepiness Scale C ariane of dozing while sitting and reading:?- C ariane of dozing while watching TV: - C ariane of dozing while sitting in a public place: - C ariane of dozing as a passenger in a car for an hour without a break: - C ariane of dozing while lying down in the afternoon to rest: - C ariane of dozing while sitting and talking to someone: - C ariane of dozing while sitting quietly after lunch: - C ariane of dozing in a stopped car for a few minutes in traffic: - T OTAL SCORE: 0 * ROS: G eneral/Constitutional: Fever or sweats d enies. C hange of appetite d enies. C hills d enies. W eight Change d enies. H EENT: Dry mouth d enies. S ore throat d enies. O ral Ulcers d enies. P ost Nasal Drip D enies. C ongestion D enies. H oarseness?over the past 2 months. C ardiovascular: Tachycardia d enies. C hest pain d enies. P alpitations d enies. R espiratory: Chest tightness d enies. P leurisy D enies. D yspnea d enies. C ough d enies. H emoptysis d enies. W heezing d enies.? G astrointestinal: Acid Reflux/GERD/Heartburn d enies. B lack Stool p rior to 08/12/2023. D ysphagia d enies. H ematemesis x 1 ~08/12/2023. M usculoskeletal: Arthralgias/joint pain D enies. S kin: Easy bruising d enies. R russel d enies. ? N eurologic: Paresthesias d enies. D izziness/Lightheadedness d enies. S eizures d enies. T remor d enies. H ematology: Abnormal Bleeding G I bleeding as above. P sychiatric: Anxiety d enies. * Active Problem List J43.2 Centrilobular emphys zoila Modified On:08/23/2023W/U Status:confirmed G47.33 MATILDA (obstructive sle ep apnea) Modified On:08/23/2023/U Status:confirmed F17.219 Cigarette nicotine d ependence with nicotine-induced disorder Modified On:08/23/2023/U Status:confirmed R49.0 Hoarseness Modified On:08/23/2023 Status:confirmed R91.[address] lung scr eening Modified On:08/23/2023 Status:confirmed Z79.51 MCC (current) use of inhaled steroids Modified On:08/23/2023 Status:confirmed E66.9 Obesity, unspecified Modified On:08/23/2023 Status:confirmed R07.81 Rib pain on left [place] e Modified On:09/13/2023 Status:confirmed 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 Modified On:06/18/2024 Status:confirmed F10.129 Alcohol intoxication Modified On:06/18/2024 Status:confirmed I10 HTN (hypertension) Modified On:06/18/2024 Status:confirmed D64.9 Anemia Modified On:06/18/2024 Status:confirmed Z68.33 Body mass index [BMI ] 33.0-33.9, adult Modified On:10/03/2024 Status:confirmed * Medical History: * Surgical History: N ephrectomy-Left Oral surgery Hernia Repair Prostate Surgery Cataract removal (Left 08/04/2022, Right 08/11/2022) * Hospitalization/Major Diagno stic Procedure: H ematemesis-[facility] 08/12/2023 * Family History: M other: sleep apnea. M aternal Grandmother: cirrhosis. F ather: diagnosed with Diabetes mellitus without mention of complication, type II or unspecified type, not stated as uncontrolled. P aternal Grandfather: diagnosed with Other malignant neoplasm of unspecified site. * Social History: T obacco Use: T obacco Control (Standard) T obacco use: C urrent every day smoker A dditional Findings: Tobacco user H eavy cigarette smoker (20-39 cigs/day) Electronic Cigarette use C urrent user N o D rugs/Alcohol: D rugs H ave you used drugs other than those for medical reasons in the past 12 months? N o D oes the Patient have a History of Drug Abuse in the Past? N o Caffeine I ntake: 3 -4 cups per day Tea & Coffee Do you drink alcohol?: No. Do you smoke marijuana?: Denies. * Medications: T akingAllopurinol 100 MG Tablet 1 tablet Orally Once a day Atorvastatin Calcium 40 MG Tablet 1 tablet Orally Once a day Baclofen 5 MG Tablet 1 tablet as needed Orally Once a day Flomax 0.4 MG Capsule 1 capsule Orally Once a day Furosemide 20 MG Tablet 1 tablet Orally Once a day Losartan Potassium 50 MG Tablet 1 tablet Orally Once a day Metoprolol Tartrate 25 MG Tablet 1 tablet with food Orally Twice a day Nitrostat(Nitroglycerin) 0.4 MG Tablet Sublingual as directed Sublingual Omeprazole 40 MG Capsule Delayed Release TAKE 1 CAPSULE BY MOUTH DAILY Oral Symbicort(Budesonide-Formoterol Fumarate) 160-4.5 MCG/ACT Aerosol 2 puffs Inhalation Twice a day Ventolin HFA(Albuterol Sulfate HFA) 108 (90 Base) MCG/ACT Aerosol Solution 2 puffs as needed Inhalation every 4 hrs Vitamin D3 50 MCG (1999 [place]) Capsule 1 capsule Orally Once a day Taking Allopurinol 100 MG Tablet 1 tablet Orally Once a day Taking Atorvastatin Calcium 40 MG Tablet 1 tablet Orally Once a day Taking Baclofen 5 MG Tablet 1 tablet as needed Orally Once a day Taking Flomax 0.4 MG Capsule 1 capsule Orally Once a day Taking Furosemide 20 MG Tablet 1 tablet Orally Once a day Taking Losartan Potassium 50 MG Tablet 1 tablet Orally Once a day Taking Metoprolol Tartrate 25 MG Tablet 1 tablet with food Orally Twice a day Taking Nitrostat(Nitroglycerin) 0.4 MG Tablet Sublingual as directed Sublingual Taking Omeprazole 40 MG Capsule Delayed Release TAKE 1 CAPSULE BY MOUTH DAILY Oral Taking Symbicort(Budesonide-Formoterol Fumarate) 160-4.5 MCG/ACT Aerosol 2 puffs Inhalation Twice a day Taking Ventolin HFA(Albuterol Sulfate HFA) 108 (90 Base) MCG/ACT Aerosol Solution 2 puffs as needed Inhalation every 4 hrs Taking Vitamin D3 50 MCG (1999 UT) Capsule 1 capsule Orally Once a day * Allergies: N .K.D.A.no[Allergies Verified] Objective: * Vitals: * Examination: E xam: GENERAL APPEARANCE: A ppears stated age. New hoarseness. Skin N ormal. Mouth P ink and moist. No signs of oral candidiasis.? Oropharynx/Tongue M acroglossia , Mallampati Class III.? Trachea M idline. Chest I ncreased A-P Diameter. Respiratory Normal M ovements, E ffort N ormal. Auscultation B reath sounds remained diminished but clear.? Cardiac R egular rate and rhythm. Gastrointestinal N ormal. Vascular N o edema. Musculoskeletal N ormal posture. Neurological F ocal, intact. Psychiatric A lert and oriented x3. Friendly. Mentation/Cognition N ormal. Assessment: * Assessment: 1. O SA (obstructive sleep apnea) - G47.33 (Primary) 2 . C entrilobular emphysema - J43.2 3 . H oarseness - R49.0 4 . C igarette nicotine dependence with nicotine-induced disorder - F17.[address] lung screening - R91.8 6 . 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 7 . O besity, unspecified - E66.9 8 . B adriana mass index [BMI] 33.0-33.9, adult - Z68.33 Plan: * Treatment: 2. C entrilobular emphysema Continue Symbicort Aerosol, 160-4.5 MCG/ACT, 2 puffs, Inhalation, Twice a day; C ontinue Ventolin HFA Aerosol Solution, 108 (90 Base) MCG/ACT, 2 puffs as needed, Inhalation, every 4 hrs. ? Notes: Respiratory status appears well-controlled at this time on Symbicort. He asked about Trelegy. Explained that this inhaler adds a LAMA which could worsen his dry mouth and can affect his urination. With the larger particle size of the Ellipta device, that could potentially worsen his hoarseness. He voiced he was very happy with his Symbicort and does not want to change it after discussion. ? 3. H oarseness Notes: New hoarseness, ongoing ~2 months. Etiology unclear...GERD/LPR? Candidiasis? Throat cancer secondary to tobacco abuse? I recommended referral to ENT and even offered to place it, but he refused at this time. His next appointment with Dr. Gagnon is in ~2 months and he stated if he is still hoarse then, he will ask Dr. Gagnon for a referral to ENT at that time. I told him in the meantime if he reconsiders the referral to let me know and I will send one in. 4. C igarette nicotine dependence with nicotine-induced disorder Notes: He continues to smoke and yet again I counseled him on cessation. 5. A bnormal CT lung screening I maging: CT Chest w/o contrast Notes: F/U chest CT 10/11/2022 showed resolution of the abnormal findings. He can resume annual LDCT screening. I was going to order LDCT for 10/2023, but Dr. Gagnon already ordered it, so will use his order at this time - patient was counseled that the LDCTSHOULDbe done in October to maintain the annual evaluation. 6. L roldan term (current) use of inhaled steroids Notes: was counseled to rinse & gargle with water after inhaled corticosteroid use. 7. O besity, unspecified Notes: Weight loss indicated. * Procedures: A lpha-1 Antitrypsin: Screening Date: 1 07/27/2019. Genotype: M /M. P FT: Data: 06/30/2020 -FEV1/FVC: 86% -FEV1: 64% -FVC: 72% -Bronchodilator response: Positive -RV: 178% -T% -DLCO: 63% -Flow-volume loop: Moderate obstructive 11/19/2013 -FEV1/FVC: 68% -FEV1: 64% -FVC: 72% -Broncodilator response: Positive in FEV1 -RV: 151% -T% -DLCO: 76%. * Procedure Codes: N [facility] NO CHARGE * Preventive Medicine: COVID Vaccination: H as patient had COVID Vaccination? COVID Vaccination Y es 05/27/2021 Immunization Status: P neumovacc P t Refused. I nfluenza 1 . Screenings/Counseling: F ALL RISK SCREENING Fall Risk Assessment: O ne fall without injury in the past year Are you afraid of falling? Y es T OBACCO ACTION PLAN Patient counselled on the dangers of tobacco use and urged to quit. 0 08/23/2023 Cessation counseling provided 0 08/23/2023 B AK ACTION PLAN Above Normal BMI Follow-up D ietary management education, guidance, and counseling * * Sign off status: Completed Visit Status: C HK (Check Out) true * Provider: Serafin Rojas DO Date: 0 10/03/2024 Generated for Printi ng/Fadeniseg/eTransmitting on: 0 11/14/2024 10:31 AM EDT History and Physical Notes * HPI (History of Present Illness) Category Sub-Category Detail Notes Category Not es [place] Sleepiness Scale [place] Sleepiness Scale Chance of dozing while sitting and reading:: - Chance of dozing while watching TV:: - Chance of dozing while sitting in a publ ic place:: - Chance of dozing as a passenger in a car for an hour without a break:: - Chance of dozing while lying down in the afternoon to rest:: - Chance of dozing while sitting and talki ng to someone:: - Chance of dozing while sitting quietly a fter lunch:: - Chance of dozing in a stopped car for a few minutes in traffic:: - TOTAL SCORE:: 0 Examination Category Sub-Category Detail Notes Category Not es Exam GENERAL APPEARANCE: Appears stated age. N ew hoarseness Skin Normal Mouth [place] and moist. No s igns of oral candidiasis Neck Trachea Midline Chest Increased A-P Diamet er Respiratory Normal Movements, Ef fort Normal Auscultation Breath sounds remain ed diminished but clear Percussion Egophony Bronchophony Fremitus Whispered pectoriloquy Cardiac Regular rate and rhy thm Gastrointestinal Normal Vascular No edema Musculoskeletal Normal posture Neurological Focal, intact Psychiatric Alert and oriented x 3. Friendly Mentation/Cognition Normal Oropharynx/Tongue Macroglossia , Viridiana mpati Class III
--- OUTSIDE RECORDS SUMMARY | 2024-10-18 07:20 | XMS_ITS ---
Author Organization [facility] in [place] Address [address] [place] [address] Care Team Providers Care Sports Complex Attendant Name Role Phone AichholSusan griffith CNP Primary Care Provider Unavail able Dhiraj Rojas Unavailable [phone] Allergies No Known Allergies REASON FOR VISIT 1YR-COPD, MATILDA Medications Medication SIG (Take, Route, Frequency, Duration) Notes Start Date End Date Status Ventolin HFA 108 (90 Base) MCG/ACT 2 puffs as needed for SOB Inhalation Q4H for 90 days Active Nitrostat 0.4 MG as directed Sublingual Active Vitamin D3 50 MCG (1999 UT) 1 capsule Or ally Once a day Active Omeprazole 40 MG TAKE 1 CAPSULE BY UTH DAILY Oral for 30 Days Active Symbicort 160-4.5 MCG/ACT 2 puffs Inhalation BID for 90 days Rinse after use Active Flomax 0.4 MG 1 capsule Orally Onc e a day Active Baclofen 5 MG 1 tablet as needed O rally Once a day Active Metoprolol Tartrate 25 MG 1 tablet with food Orally Twice a day Active Losartan Potassium 50 MG 1 tablet Orally Once a day Active Furosemide 20 MG 1 tablet Orally Once a day Active Allopurinol 100 MG 1 tablet Orally Once a day Active Atorvastatin Calcium 40 MG 1 tablet Oral ly Once a day Active Social History Tobacco Use: Social History Observation Description Date Details (start date - stop date) Current Smoker NA - NA Sex Assigned At : Social History Observation Description Sex Assigned At Male Tobacco Control (Standard) Question Answer Notes Tobacco use: Current every day smoker Additional Findings: Tobacco user Heavy cigarett e smoker (20-39 cigs/day) Vital Signs Weight 235.6 lbs 10/18/2024 Height 70 in 10/18/2024 Blood pressure systolic 146 mm Hg 10/19/19 Blood pressure diastolic 71 mm Hg 025 Temperature 97.1 degrees Fahrenheit 10/19/19 Heart Rate 75 /min 10/18/2024 Respiratory Rate 20 /min 10/18/2024 BMI 33.8 kg/m2 10/18/2024 Oximetry 97 % 10/18/2024 Encounters Encounter Location Date Provider Diagnosis [facility] [place] [address] [place] [address] 10/18/2024 Dhiraj Rojas MATILDA (obstructive sle ep apnea) G47.33 ; Centrilobular emphysema J43.2 ; Cigarette nicotine dependence with nicotine-induced disorder F17.219 ; 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 -Split-night study 03/24/2023: AHI 23 -Compliance was reviewed from: 09/11/2024 - 10/10/2024 -Total days used: 30 (100%) -Total of all days >4 hours of use: 30/ (100%) -Current mode & pressures: AirSense 11 AutoSet CPAP [id number] AHI: 7.9-Median air leak: 19.3L/min-Mask/harn ess fitting: He got rid of his dog, so he is not having to deal with that any more. Does not complain of any significant mask fitting issues today.-Sleep quality: Reports restful sleep with use.-Daytime hypersomnolence: Decreased with use.-Recommendation s: Superb compliance. AHI still not optimal - goal <5. At straight 91jjY3S pressure. Discussed adjusting to auto-CPAP to see if this can nudge his AHI to goal. He voiced agreement. As he is still having the residual events at 64bwE4H, will keep 55nzW5M at the minimum and change to auto-CPAP [id number]. He voiced he likes the ramp as it is, so will continue with ramp starting at 4cmH2O. No other changes were made. Requested that patient contact the office next week if he is having any issues with the pressure. Continue to use the CPAP @ HS & naps. 10/18/2024 Centrilobular emphysema (ICD-10 - J43.2) He continues to do well on Symbicort. Rinsing after use, no adverse effects. Rare albuterol use. Previously discussed LAMA, but he already has dry mouth and he's concerned about urinary retention. Since he was here last, Ohtuvayre has been released which does not have LAMA adverse effects but could be added on top of Symbicort. He voiced he was happy with his symptom control and stated he did not want anything else at this time. 10/18/2024 Cigarette nicotine dependence with nicotine-induced disorder (ICD-10 - F17.219) 1ppd x 55 years (began age 14) Patient was counseled on smoking cessation yet again. He voiced understanding that it is in his best interest to stop smoking. LDCT done 10/12/2024 looked well without any suspicious findings (RADS-1). Next LDCT is due October 2025. 10/18/2024 USP (current) use of inhaled steroids (ICD-10 - Z79.51) He was counseled to rinse & gargle with water after inhaled corticosteroid use. 10/18/2024 Obesity, unspecified (ICD-10 - E66.9) Weight loss recommended. 10/18/2024 Encounter for screening for malignant neoplasm of respiratory organs (ICD-10 - Z12.2) Low-dose CT (LDCT) was recommended for lung cancer screening. The patient meets criteria including age 50-77, a smoking history of at least 20 pack-years, is currently smoking or has ceased smoking within the past 15 years, and has no signs or symptoms of lung cancer. Shared decision making performed with the patient. After LDCT has been completed, will review report and/or imaging and provide appropriate recommendations for the patient, including additional follow up if needed. Patient was counseled on smoking cessation/continued tobacco abstinence. LDCT due 10/2025. Plan Of Treatment Medication Medication Name Sig Start Date Stop Date Notes Ventolin HFA 108 (90 Base) MCG/ACT 2 puffs as needed for SOB Inhalation Q4H for 90 days Symbicort 160-4.5 MCG/ACT 2 puffs Inhala tion BID for 90 days Treatment Notes Assessment Notes MATILDA (obstructive sleep apnea) Xetj-ai-wqoz encounter performed with the patient to document continued need for PAP therapy. -Split-night study 03/24/2023: AHI 23 -Compliance was reviewed from: 09/11/2024 - 10/10/2024 -Total days used: 30 (100%) -Total of all days >4 hours of use: 30/ (100%) -Current mode & pressures: AirSense 11 AutoSet CPAP [id number] AHI: 7.9-Median air leak: 19.3L/min-Mask/harness fitting: He got rid of his dog, so he is not having to deal with that any more. Does not complain of any significant mask fitting issues today.-Sleep quality: Reports restful sleep with use.-Daytime hypersomnolence: Decreased with use.-Recommendations: Superb compliance. AHI still not optimal - goal <5. At straight 27whY0K pressure. Discussed adjusting to auto-CPAP to see if this can nudge his AHI to goal. He voiced agreement. As he is still having the residual events at 43ygZ4W, will keep 82mbG6E at the minimum and change to auto-CPAP [id number]. He voiced he likes the ramp as it is, so will continue with ramp starting at 4cmH2O. No other changes were made. Requested that patient contact the office next week if he is having any issues with the pressure. Continue to use the CPAP @ HS & naps. Centrilobular emphysema He continues to do well on Symbicort. Rinsing after use, no adverse effects. Rare albuterol use. Previously discussed LAMA, but he already has dry mouth and he's concerned about urinary retention. Since he was here last, Ohtuvayre has been released which does not have LAMA adverse effects but could be added on top of Symbicort. He voiced he was happy with his symptom control and stated he did not want anything else at this time. Cigarette nicotine dependenc e with nicotine-induced disorder 1ppd x 55 years (began age 14) Patient was counseled on smoking cessation yet again. He voiced understanding that it is in his best interest to stop smoking. LDCT done 10/12/2024 looked well without any suspicious findings (RADS-1). Next LDCT is due October 2025. 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 Obesity, unspecified Weight loss recommended. Encounter for screening for malignant neoplasm of respiratory organs Low-dose CT (LDCT) was recommended for lung cancer screening. The patient meets criteria including age 50-77, a smoking history of at least 20 pack-years, is currently smoking or has ceased smoking within the past 15 years, and has no signs or symptoms of lung cancer. Shared decision making performed with the patient. After LDCT has been completed, will review report and/or imaging and provide appropriate recommendations for the patient, including additional follow up if needed. Patient was counseled on smoking cessation/continued tobacco abstinence. LDCT due 10/2025. Future Test Test Name Order Date CT Chest Low Dose for Screening* 026 Next Appt Details Follow Up: 1 Year, Reason: O SA, COPD Provider Name:Dhiraj Rojas, 10/16/2025 11:00:00 AM, [address] [place], [address], Procedure Notes * Category Sub-Category Detail Notes PFT Data: 06/30/2020-FEV1/F VC: 86%-FEV1: 64%-FVC: 72%-Bronchodilator response: Positive-RV: 178%-T%-DLCO: 63%-Flow-volume loop: Moderate obstructive11/19/2013-FEV1/FVC: 68%-FEV1: 64%-FVC: 72%-Broncodilator response: Positive in FEV1-RV: 151%-T%-DLCO: 76% Alpha-1 Antitrypsin Screening Date: 05/26/2020 Genotype: M/M Progress Notes * Marco IRVING LDOB:[birth year] (69 yo M)Acc No.[id number]:10/18/2024 Follow Up Patient: Marco ESCALANTE Provider: Serafin Rojas DO :1955 A ge:69 Y S ex:Male Date:10/18/2024 Address:[address], [place] [id number] Pcp:Susan Edward, JAIL GUARD Check In:10:45 AM ESTCheck O ut:11:13 AM EST Subjective: * Chief Complaints: * 1 YR-COPD, MATILDA * HPI: E pworth Sleepiness Scale: Reviewed several items today with the patient. -LDCT 10/12/2024, when compared to 10/11/2022, showed stable mild scarring and bronchial wall thickening without nodules or masses. Scored RADS-1. -Breathing has been stable on Symbicort. Last albuterol use was over 4 months ago. He feels his breathing is great and does not need any further treatment beyond Symbicort. -CPAP: Has superb compliance, states it helps with reduced hypersomnolence. No complaints today. H owever, over the past 1-2 years, the residual AHI has been creeping up, currently averaging 7.9. MA Intake Comments:. [place] Sleepiness Scale C ariane of dozing while sitting and reading:?2 - Moderate Chance C ariane of dozing while watching TV: 1 - Slight Chance C ariane of dozing while sitting in a public place: 1 - Slight Chance C ariane of dozing as a passenger in a car for an hour without a break: 0 - Never C ariane of dozing while lying down in the afternoon to rest: 3 - High Chance C ariane of dozing while sitting and talking to someone: 0 - Never C ariane of dozing while sitting quietly after lunch: 0 - Never C ariane of dozing in a stopped car for a few minutes in traffic: 0 - Never T OTAL SCORE: 7 Patient presents for a follow-up for COPD/MATILDA. DME:[facility]. Patient complaints of SOB with exertion. Patient admits to smoking .5 to 1PPD. Patient is using Symbicort daily with benefit. Patient reports not having to use his rescue inhaler. Patient reports great benefit from the PAP machine. Patient denies any complaints or concerns with his machine. Patient recently had his CT Chest performed on 10/12/2024. * ROS: G eneral/Constitutional: Fever or sweats d enies. C hange of appetite d enies. C hills d enies. W eight Change d enies. H EENT: Dry mouth d enies. S ore throat d enies. O ral Ulcers d enies. P ost Nasal Drip D enies. C ongestion D enies. H oarseness?Denies. C ardiovascular: Tachycardia d enies. C hest pain d enies. P alpitations d enies. R espiratory: Pleurisy D enies. D yspnea d enies. C ough d enies. H emoptysis d enies. W heezing d enies. G astrointestinal: Acid Reflux/GERD/Heartburn d enies. M usculoskeletal: Arthralgias/joint pain D enies. S kin: Easy bruising d enies. N eurologic: Seizures d enies. T remor d enies. H ematology: Abnormal Bleeding N one reported. P sychiatric: Anxiety d enies. 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 Modified On:06/18/2024U Status:confirmed F10.129 Alcohol intoxication Modified On:06/18/2024U Status:confirmed I10 HTN (hypertension) Modified On:06/18/2024U Status:confirmed D64.9 Anemia Modified On:01/13/2025W/U Status:confirmed * Medical History: * Surgical History: N ephrectomy-Left Oral surgery Hernia Repair Prostate Surgery Cataract removal (Left 08/04/2022, Right 08/11/2022) * Hospitalization/Major Diagno stic Procedure: H ematemesis-TBH 08/12/2023 * Family History: M other: sleep [...] Cigarette use C urrent user N o LM: Additional Tobacco Questions N umber of Years Pt Smoked: 5 5 Began age 14 N umber of Packs per Day: 1 = 55 pack-years M iscellaneous: C affeine: 4 cups a day of coffee. 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 D rugs/Alcohol: D rugs H ave you used drugs other than those for medical reasons in the past 12 months? N o D oes the Patient have a History of Drug Abuse in the Past? N o Caffeine I ntake: 3 -4 cups per day Tea & Coffee Do you drink alcohol?: Yes Daily-2-3 shots per day. Do you smoke marijuana?: Denies. * Medications: [...] every 4 hrs Vitamin D3 50 MCG (1999) Capsule 1 capsule Orally Once a day Medication List reviewed and reconciled with the patientTaking Allopurinol 100 MG Tablet 1 tablet Orally [...] Capsule 1 capsule Orally Once a day Medication List reviewed and reconciled with the patient * Allergies: N .K.D.A.no[Allergies Verified] Objective: * Vitals: W t:235.6lbs, Ht: 70 in, BP:sittin/71mm Hg, Temp:Forehead:97.1F, HR:75/min, RR:20/min, BMI:33.8Index, Oxygen sat %:Room Air:97%, Ht-cm: 177.8 cm, Wt-k.87 kg. * Examination: E xam: GENERAL APPEARANCE: A ppears stated age. No hoarseness today. Skin N ormal. Mouth P ink and moist. No signs of oral candidiasis.? Oropharynx/Tongue M acroglossia , Mallampati Class III.? Trachea M idline. Chest I ncreased A-P Diameter. Respiratory Normal M ovements, E ffort N ormal. Auscultation D iminished breath sounds clear to auscultation - no wheezes, crackles, or rhonchi. Cardiac R egular rate and rhythm. Gastrointestinal N ormal. Vascular N o edema. Musculoskeletal N ormal posture. Neurological F ocal, intact. Psychiatric A lert and oriented x3. Mentation/Cognition N ormal. Assessment: * Assessment: 1. O SA (obstructive sleep apnea) - G47.33 (Primary) 2 . C entrilobular emphysema - J43.2 3 . C igarette nicotine dependence with nicotine-induced disorder - F17.219 4 . L roldan term (current) use of inhaled steroids - Z79.51 5. O besity, unspecified - E66.9 6 . E ncounter for screening for malignant neoplasm of respiratory organs - Z12.2 Plan: * Treatment: 2. C entrilobular emphysema Continue Symbicort Aerosol, 160-4.5 MCG/ACT, 2 puffs, Inhalation, BID Rinse after use, 90 days, 3 each, Refills 4; C ontinue Ventolin HFA Aerosol Solution, 108 (90 Base) MCG/ACT, 2 puffs as needed for SOB, Inhalation, Q4H, 90 days, 3 each, Refills 4. Notes: He continues to do well on Symbicort. Rinsing after use, no adverse effects. Rare albuterol use. Previously discussed LAMA, but he already has dry mouth and he's concerned about urinary retention. Since he was here last, Ohtuvayre has been released which does not have LAMA adverse effects but could be added on top of Symbicort. He voiced he was happy with his symptom control and stated he did not want anything else at this time. 3. C igarette nicotine dependence with nicotine-induced disorder I maging: CT Chest Low Dose for Screening* (Ordered for 10/04/2025) Notes: 1ppd x 55 years (began age 14) Patient was counseled on smoking cessation yet again. He voiced understanding that it is in his best interest to stop smoking. LDCT done 10/12/2024 looked well without any suspicious findings (RADS-1). Next LDCT is due October 2025.? 4. L roldan term (current) use of inhaled steroids Notes: He was counseled to rinse & gargle with water after inhaled corticosteroid use. 5. O besity, unspecified Notes: Weight loss recommended. 6. E ncounter for screening for malignant neoplasm of respiratory organs I maging: CT Chest Low Dose for Screening* (Ordered for 10/04/2025) Notes: Low-dose CT (LDCT) was recommended for lung cancer screening. The patient meets criteria including age 50-77, a smoking history of at least 20 pack-years, is currently smoking or has ceased smoking within the past 15 years, and has no signs or symptoms of lung cancer. Shared decision making performed with the patient. After LDCT has been completed, will review report and/or imaging and provide appropriate recommendations for the patient, including additional follow up if needed. Patient was counseled on smoking cessation/continued tobacco abstinence. LDCT due 10/2025. * Procedures: A lpha-1 Antitrypsin: Screening Date: 07/27/2019. Genotype: M /M. P FT: Data: 06/30/2020 -FEV1/FVC: 86% -FEV1: 64% -FVC: 72% -Bronchodilator response: Positive -RV: 178% -T% -DLCO: 63% -Flow-volume loop: Moderate obstructive 11/19/2013 -FEV1/FVC: 68% -FEV1: 64% -FVC: 72% -Broncodilator response: Positive in FEV1 -RV: 151% -T% -DLCO: 76%. * Procedure Codes: * Preventive Medicine: COVID Vaccination: H as [...] tobacco use and urged to quit. 0 10/18/2024 Cessation counseling provided 0 10/18/2024 B NV ACTION PLAN Above Normal BMI Follow-up D ietary management education, guidance, and counseling * Follow Up: 1 Year (Reason: MATILDA, COPD) * * Sign off status: Completed Visit Status: C HK (Check Out) true * Provider: Serafin Rojas DO Date: 0 10/18/2024 Generated for Printi ng/Fadeniseg/eTransmitting on: 0 11/14/2024 10:31 AM EDT History and Physical Notes * HPI (History of Present Illness) Category Sub-Category Detail Notes Category Not es [place] Sleepiness Scale [place] Sleepiness Scale Chance of dozing while sitting and reading:: 2 - Moderate Chance Patient presents for a follow-up for COPD/MATILDA. DME:[facility]. Patient complaints of SOB with exertion. Patient admits to smoking .5 to 1PPD. Patient is using Symbicort daily with benefit. Patient reports not having to use his rescue inhaler. Patient reports great benefit from the PAP machine. Patient denies any complaints or concerns with his machine. Patient recently had his CT Chest performed on 10/12/2024. Chance of dozing while watching TV:: 1 - Slight Chance Chance of dozing while sitting in a publ ic place:: 1 - Slight Chance Chance of dozing as a [place] in a car for an hour without a break:: 0 - Never Chance of dozing while lying down in the afternoon to rest:: 3 - High Chance Chance of dozing while sitting and talki ng to someone:: 0 - Never Chance of dozing while sitting quietly a fter lunch:: 0 - Never Chance of dozing in a stopped car for a few minutes in traffic:: 0 - Never TOTAL SCORE:: 7 Examination Category Sub-Category Detail Notes Category Not es Exam GENERAL APPEARANCE: Appears stated age. N o hoarseness today Skin Normal Mouth [place] and moist. No s igns of oral candidiasis Neck Trachea Midline Chest Increased A-P Diamet er Respiratory Normal Movements, Ef fort Normal Auscultation Diminished breath so unds clear to auscultation - no wheezes, crackles, or rhonchi Percussion Egophony Bronchophony Fremitus Whispered pectoriloquy Cardiac Regular rate and rhy thm Gastrointestinal Normal Vascular No edema Musculoskeletal Normal posture Neurological Focal, intact Psychiatric Alert and oriented x 3 Mentation/Cognition Normal Oropharynx/Tongue Macroglossia , Viridiana mpati Class III
--- OUTSIDE RECORDS SUMMARY | 2024-11-14 10:31 | XMS_ITS | Encounter Summary ---
Author Organization [facility] Address [address] [place] [address] Care Team Providers Care Correctional Officer Lieutenant Name Role Phone Shaikh EMEKA Gagnon Unavailable [phone] Mignon Rodriguez NP Unavailable [phone] Rm Rainey MD Primary Care Provider Encounter Details Date Type Department Care Team (Late st Contact Info) Description 05/08/2024 Orders Only [facility] [address] [place] [phone] Shaikh Gagnon MD [address] [place] [address] Social History Tobacco Use Types Packs/Day Years Used Date Smoking Tobacco: Every Day Cigarettes 1 52 Passive Smoke Exposure: Current Smokeless Tobacco: Never Alcohol Use Standard Drinks/Week Comments Yes 2 (1 standard drink = 0.6 oz pur e alcohol) caffene: 1-2 cups per day Humiliation, Afraid, Rape, and Kick questionnair e Answer Date Recorded Within the last year, have y ou been afraid of your partner or ex-partner? No 05/10/2023 Within the last year, have y ou been humiliated or emotionally abused in other ways by your partner or ex-partner? No Within the last year, have y ou been kicked, hit, slapped, or otherwise physically hurt by your partner or ex-partner? No 05/10/2023 Within the last year, have y ou been raped or forced to have any kind of sexual activity by your partner or ex-partner? No 05/10/2023 Social Connection and Isolat ion Panel [NHANES] Answer Date Recorded In a typical week, how many times do you talk on the phone with family, friends, or neighbors? More than three times a week 05/10/2023 How often do you get togethe r with friends or relatives? Once a week 05/10/2023 How often do you attend [facility] or rastafarian services? Never 05/10/2023 Do you belong to any clubs o r organizations such as orthodox groups, unions, fraternal or athletic groups, or school groups? No 05/10/2023 Attends Club or Organization Meetings Not on alee e 05/10/2023 Are you , , di vorced, , never , or living with a partner? 05/10/2023 AUDIT-C Answer Date Recorded Q1: How often do you have a drink containing alc ohol? 2-3 times a week 05/06/2023 Q2: How many drinks containi ng alcohol do you have on a typical day when you are drinking? 1 or 2 05/06/2023 Q3: How often do you have si x or more drinks on one occasion? Never 05/06/2023 Overall Financial Resource Strain (CARDIA) Answe r Date Recorded How hard is it for you to pa y for the very basics like food, housing, medical care, and heating? Not very hard 05/10/2023 PHQ-2 Answer Date Recorded Patient Health Questionnaire-2 Score 0 11/24/2023 [facility] - Occupational Stress Questionnaire Answer Date Recorded Do you feel stress - tense, restless, nervous, or anxious, or unable to sleep at night because your mind is troubled all the time - these days? To some extent 05/10/2023 Exercise Vital Sign Answer Date Recorde d On average, how many days pe r week do you engage in moderate to strenuous exercise (like a brisk walk)? 2 days 05/10/2023 On average, how many minutes do you engage in exercise at this level? 30 min 05/10/2023 Hunger Vital Sign Answer Date Recorded Within the past 12 months, y ou worried that your food would run out before you got the money to buy more. Never true 05/10/20 23 Within the past 12 months, t he food you bought just didn't last and you didn't have money to get more. Never true 05/10/2023 PRAPARE - Transportation Answer Date Re corded In the past 12 months, has l ack of transportation kept you from medical appointments or from getting medications? No 10/2022 In the past 12 months, has l ack of transportation kept you from meetings, work, or from getting things needed for daily living? No 05/10/2023 Housing Stability Vital Sign Answer Barry e Recorded In the last 12 months, was t here a time when you were not able to pay the mortgage or rent on time? No 05/10/2023 Number of Places Lived in the Last Year Not on f ile 05/10/2023 In the last 12 months, was t here a time when you did not have a steady place to sleep or slept in a chcf (including now)? No 05/10/2023 Sex and Gender Information Value Date Recorded Sex Assigned at Not on file Legal Sex Male 7:30 PM EDT Gender Identity Not on file Sexual Orientation Not on file documented as of this encounter Plan of Treatment Upcoming Encounters Date Type Department Care Team (Late st Contact Info) Description 10/07/2025 10:30 AM EDT Office Visit [facility] [address] [place] [address] Susan Edward NP [address] [place] [address] documented as of this encounter Procedures Procedure Name Priority Date/Time Associated Diagnosis Comments CT CHEST WO IV CONTRAST Routine 05/08/2024 3:43 PM EST documented in this encounter Results * CT chest wo IV contrast (05/08/2024 3:43 PM EST) Anatomical Region Laterality Modality Body, Chest Computed Tomogra phy Shaikh Kalin [facility] IMG CT PROCEDURES Final Result documented in this encounter Visit Diagnoses Not on filedocumented in this encounter Additional Health Concerns Assessment Noted Time PHQ-9 Depression Total Score: 0 05/10/20 23 2:06 PM EST documented as of this encounter Care Teams Correctional Officer Lieutenant Relationship Specialty Start Date End Date Shaikh Gagnon MD [address] [place] [address] PCP - [employer] 06/06/23 Rm Rainey MD [address] [place] [place] [address] PCP - General Family Medicine 04/05/24 Mignon Rodriguez NP [address] [place] [address] Nurse Practitioner Family Medicine 01/16/24 documented as of this encounter
--- OUTSIDE RECORDS SUMMARY | 2024-11-14 10:31 | XMS_ITS | Encounter Summary ---
Author Organization [facility] Address [address] [place] [address] Care Team Providers Care Value Analysis Coordinator Name Role Phone Shaikh EMEKA Gagnon Primary Care Provider [phone] Shaikh EMEKA Gagnon Unavailable [phone] Shaikh EMEKA Gagnon Primary Care Provider [phone] Rm Rainey MD Primary Care Provider [phone] Mignon Rodriguez PHARMACY SPECIALIST Unavailable [phone] Unallocated, [facility] Provider Primary Care Provi phoebe Rm Rainey MD Primary Care Provider [phone] Encounter Details Date Type Department Care Team (Late st Contact Info) Description 08/22/2023 Orders Only [facility] [address] [place] [address] Shaikh Gagnon MD [address] [place] [address] Social History Tobacco Use Types Packs/Day Years Used Date Smoking Tobacco: Every Day Cigarettes 1 52 Smokeless Tobacco: Never Alcohol Use Standard Drinks/Week [...] week 05/10/2023 How often do you attend chur or yazdanism services? Never 05/10/2023 Do you belong to any clubs o r organizations such as nondenominational groups, unions, fraternal or athletic groups, or [...] Date Recorded Patient Health Questionnaire-2 Score 0 05/10/2023 [facility] - Occupational Stress Questionnaire Answer Date [...] place to sleep or slept in a group home (including now)? No 05/10/2023 Sex and Gender Information Value Date Recorded Sex Assigned at Not on file Legal Sex Male 7:30 PM EDT Gender Identity Not on file Sexual Orientation Not on file documented as of this encounter Plan of Treatment Upcoming Encounters Date Type Department Care Team (Late st Contact Info) Description 10/07/2025 10:30 AM EDT Office Visit [facility] [address] [place] [address] Susan Edward NP [address] [place] [address] documented as of this encounter Procedures Procedure Name Priority Date/Time Associated Diagnosis Comments LAB COLOGUARD COLON CANCER SCREEN Routine 08/18/2023 9:11 AM EDT documented in this encounter Results * Cologuard?? colon cancer screening (08/18/2023 9:11 AM EDT) Stool Shaikh Kalin [facility] MOLECULAR DIAGNOSTICS ORDER ROHIT Final Result documented in this encounter Visit Diagnoses Not on filedocumented in this encounter Additional Health Concerns Assessment Noted Time PHQ-9 Depression Total Score: 0 05/10/20 23 2:06 PM EST documented as of this encounter Care Teams Value Analysis Coordinator Relationship Specialty Start Date End Date Shaikh Gagnon MD PCP - General Internal Medicine 12/01/22 08/22/23 Shaikh Gagnon MD [address] [place] [address] PCP - [employer] 06/06/23 Shaikh Gagnon MD [address] [place] [address] PCP - General Internal Medicine 08/23/23 01/15/24 Rm Rainey MD [address] [place] [address] PCP - General Family Medicine 01/16/24 03/19/24 Unallocated, Jyoti Pink MD [address] [place] [address] PCP - General Family Medicine 03/20/24 04/04/24 Rm Rainey MD [address] [place] [address] PCP - General Family Medicine 04/05/24 Mignon Rodriguez NP [address] [place] [address] Nurse Practitioner Family Medicine 01/16/24 documented as of this encounter
--- OUTSIDE RECORDS SUMMARY | 2024-11-14 10:31 | XMS_ITS | Encounter Summary ---
Author Organization [facility] Address [address] [place] [address] Care Team Providers Care Moving Van Driver Name Role Phone Shaikh EMEKA Gagnon Unavailable [phone] Mignon Rodriguez NP Unavailable [phone] Rm Rainey MD Primary Care Provider [phone] Encounter Details Date Type Department Care Team (Late st Contact Info) Description 05/24/2024 Orders Only [facility] [address] [place] [address] Shaikh Gagnon MD [address] [place] [address] Social History Tobacco Use Types Packs/Day Years [...] week 05/10/2023 How often do you attend [facility] or worship services? Never 05/10/2023 Do you belong to any clubs o r organizations such as rastafari groups, unions, fraternal or athletic groups, or [...] Recorded Patient Health Questionnaire-2 Score 0 11/24/2023 [facility]ational Stress Questionnaire Answer [...] place to sleep or slept in a half-way (including now)? No 05/10/2023 Sex and Gender [...] Office Visit [facility] [address] [place] [address] Susan Edward NP [address] [place] [address] documented as of this encounter Procedures Procedure Name Priority Date/Time Associated Diagnosis Comments CARDIOVASCULAR REPORT Routine 05/24/2024 9:56 AM EST documented in this encounter Results * Cardiovascular report (05/24/2024 9:56 AM EST) Blood Venous blood specimen / Unknown us Shaikh Kalin [facility] LAB BLOOD ORDERABLES Final Resu lt documented in this encounter Visit Diagnoses Not on filedocumented in this encounter Additional Health Concerns Assessment Noted Time PHQ-9 Depression Total Score: 0 05/10/20 23 2:06 PM EST documented as of this encounter Care Teams Moving Van Driver Relationship Specialty Start Date End Date Shaikh Gagnon MD [address] [place] [address] PCP - [employer] 06/06/23 Rm Rainey MD [address] [place] [place] [address] PCP - General Family Medicine 04/05/24 Mignon Rodriguez NP [address] [place] [address] Nurse Practitioner Family Medicine 01/16/24 documented as of this encounter
--- OUTSIDE RECORDS SUMMARY | 2024-11-14 10:31 | XMS_ITS | Encounter Summary ---
Author Organization [facility] Address [address] [place] [address] Care Team Providers Care Lap Regulator Name Role Phone Shaikh EMEKA Gagnon Primary Care Provider [phone] Shaikh EMEKA Gagnon Unavailable [phone] Shaikh EMEKA Gagnon Primary Care Provider [phone] Rm Rainey MD Primary Care Provider [phone] Mignon Rodriguez WRAPPER STEMMER HAND Unavailable [phone] Unallocated, [facility] Provider Primary Care Provi phoebe Rm Rainey MD Primary Care Provider [phone] Encounter Details Date Type Department Care Team (Late st Contact Info) Description 05/19/2023 Orders Only [facility] [address] [place] [address] Shaikh Gagnon MD [address] [place] [address] Social History Tobacco Use Types Packs/Day Years [...] How often do you attend chur or baptist services? Never 05/10/2023 Do you belong to any clubs o r organizations such as buddhist groups, unions, fraternal or athletic groups, or [...] Recorded Patient Health Questionnaire-2 Score 0 05/10/2023 [facility] - Occupational Stress [...] place to sleep or slept in a detention (including now)? No 05/10/2023 Sex and Gender [...] Visit [facility] [address] [place] [address] Susan Edward NP [address] [place] [address] documented as of this encounter Procedures Procedure Name Priority Date/Time Associated Diagnosis Comments MISCELLANEOUS LAB TEST Routine 05/17/2023 2:16 PM EST documented in this encounter Results * - Miscellaneous Test (05/17/2023 2:16 PM EST) us Shaikh Kalin [facility] BLOOD ORDERABLES Final Resu lt documented in this encounter Visit Diagnoses Not on filedocumented in this encounter Additional Health Concerns Assessment Noted Time PHQ-9 Depression Total Score: 0 05/10/20 2:06 PM EST documented as of this encounter Care Teams Lap Regulator Relationship Specialty Start Date End Date Shaikh Gagnon MD PCP - General Internal Medicine 12/01/22 08/22/23 Shaikh Gagnon MD [address] [place] [address] PCP - [employer] 06/06/23 Shaikh Gagnon MD [address] [place] [address] PCP - General Internal Medicine 08/23/23 01/15/24 Rm Rainey MD [address] [place] [address] PCP - General Family Medicine 01/16/24 03/19/24 Unallocated, Jyoti Pink MD [address] [place] [address] PCP - General Family Medicine 03/20/24 04/04/24 Rm Rainey MD [address] [place] [address] PCP - General Family Medicine 04/05/24 Mignon Rodriguez NP [address] [place] [address] Nurse Practitioner Family Medicine 01/16/24 documented as of this encounter
--- OUTSIDE RECORDS SUMMARY | 2024-11-14 10:31 | XMS_ITS | Clinical Summary ---
Author Organization [facility] Address [address] [place] [address] Care Team Providers Care Senior Financial Accountant Name Role Phone Shaikh EMEKA Gagnon Unavailable [phone] Mignon Rodriguez NP Unavailable [phone] Rm Rainey MD Primary Care Provider [phone] Allergies No known active allergies Medications Multiple Vitamins-Minerals (PreserVision AREDS 2) capsule Take 2 capsules by mouth Daily 4 Active atorvastatin (Lipitor) 40 MG tabletIndications :Hyperlipidemia, unspecified (CMS/HCC) Take 1 tablet (40 mg) by mouth at bedtime 90 tablet 1 5 01/02/20 25 Active albuterol HFA 90 mcg/act inhalerIndication s:Centrilobular emphysema (CMS/HCC) Inhale 2 puffs in the morning and 2 puffs at noon and 2 puffs in the evening and 2 puffs before bedtime. 54 g 1 5 01/02/20 25 Active budesonide-formot mj (Symbicort) 160-4.5 MCG/ACT inhalerIndication s:Centrilobular emphysema (CMS/HCC) Inhale 2 puffs in the morning and 2 puffs before bedtime. Rinse mouth with water after use to reduce aftertaste and incidence of candidiasis. Do not swallow. 30.6 g 1 5 01/02/20 25 Active fluticasone (Flonase) 50 MCG/ACT nasal sprayIndications: Viral upper respiratory tract infection Administer 1-2 sprays into each nostril Daily Shake gently. Before first use, prime pump. After use, clean tip and replace cap. 48 g 1 5 01/02/20 25 Active furosemide (Lasix) 20 MG tabletIndications :Chronic right heart failure (HCC) (CMS/HCC) Take 1 tablet (20 mg) by mouth Daily 90 tablet 1 5 01/02/20 25 Active losartan (Cozaar) 50 MG tabletIndications :Essential (primary) hypertension (CMS/HCC) Take 1 tablet (50 mg) by mouth Daily 90 tablet 1 5 01/02/20 25 Active metoprolol tartrate (Lopressor) 25 MG tabletIndications :Essential (primary) hypertension (CMS/HCC) Take 1 tablet (25 mg) by mouth in the morning and 1 tablet (25 mg) before bedtime. 180 tablet 1 5 01/02/20 25 Active omeprazole (PriLOSEC) [address] capsuleIndication s:Gastroesophagea l reflux disease with esophagitis without hemorrhage Take 1 capsule (40 mg) by mouth Daily 90 capsule 1 5 04/01/20 25 Active tamsulosin (Flomax) 0.4 MG 24 hr capsuleIndication s:Malignant (primary) neoplasm, unspecified (CMS/HCC) Take 1 capsule (0.4 mg) by mouth at bedtime 90 capsule 1 5 01/02/20 25 Active Active Problems Problem Noted Date Diagnosed Date MATILDA (obstructive sleep apnea) 10/03/2024 Assessment & Plan (10/03/2024 10:10 AM EDT): You have a diagnosis of obstructive sleep apnea. It is recommended that you wear your PAP device any time while in bed sleeping. Not using the PAP device can increase your risk of elevated/uncontrolled high blood pressure, atrial fibrillation, heart attack, stroke, or sudden . Compliance with PAP: yes How many hours of use per night: 7 hrs Do you feel more refreshed in the morning: yes Company that supplies your machine and tubing/filters etc: [employer] Doctor that manages your MATILDA: Olegario Compression fracture of C3 vertebra (HCC) 2023 Assessment & Plan (05/22/2024 11:28 AM EST): Was seen again in ED and admitted [...] I will gladly send a referral over. 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 Symptoms worse in the morning. No improvement with OTC antihistamines. Continues to smoke - discussed smoking cessation Trial of zyrtec-D with flonase. If persistent symptoms - will refer to ENT Chronic right shoulder pain 09/28/2023 Assessment & Plan (09/28/2023 11:19 AM EDT): Right shoulder pain, chronic but acutely worsened since last weekend. Severely restricted ROM, weakness of right arm, along with positive drop arm test. Likely has rotator cuff injury. Patient using tylenol for pain with no benefit. Will order XR, call in prednisone taper. He was also given IM toradol in office for acute pain control Ordered PT for patient. Left hip pain 09/28/2023 Assessment & Plan (09/28/2023 11:22 AM EDT): Left flank and hip pain. Has multilevel DJD and osteoarthritis involving multiple joints. Ordered prednisone taper for acute pain control. Also given toradol IM in office. XR ordered. PT ordered. BPH with obstruction/lower urinary tract symptom s 08/23/2023 Assessment & Plan (10/03/2024 6:26 AM EDT): Takes tamsulosin Personal history of prostate cancer 08/23/2023 Tobacco dependence syndrome 08/23/2023 Assessment & Plan (10/03/2024 6:28 AM EDT): The patient has been advised of the risks of continued smoking: stroke, ME, all forms of cancer, lung disease, and . Options for quitting smoking include: cold turkey, hypnosis, acupuncture, nicotine replacement meds (gum, lozenges, and patches), Buproprion, and Varenicline. At this time pt is encouraged to evaluate their goals for wanting to quit smoking, and reach out to provider when ready to start this process Chronic midline thoracic back pain 08/23/2023 Assessment & Plan (08/23/2023 11:23 AM EDT): Chronic, unchanged, with periods of worsening pain. Mild tenderness in midline. No trauma or injury. Poor posture is also contributing. Uses tylenol and it helps but sometimes he feels its not enough. Trial of tizanidine as needed. Ordered XR. COPD (chronic obstructive pulmonary disease) wit h emphysema 05/10/2023 Assessment & Plan (10/03/2024 10:10 AM EDT): Current meds: albuterol, symbicort nohemy Assessment & Plan (06/20/2024 9:49 AM EST): Follows closely with Dr. Aguilar. Has had multiple hospitalizations this year due to exacerbations. Is still a current 0.5ppd smoker. Currently taking Symbicort Atrovent Albuterol. Continue current regimen as directed by pulmonology. Assessment & Plan (05/22/2024 11:26 AM EST): Was admitted at [facility] on 05/08 for COPD exacerbation. Was discharged on 05/09/2024. Was treated with Levaquin 750mg And prednisone. Is still smoking 0.5ppd outside. Has not followed up with Child Support Specialist-Dr. Aguilar since discharge. States he feekls he has improved. Denies shortness of breath at rest. Admits occasional shortness of breath with exertion Using rescue inhaler once every other day, sometimes once per day. Sputum production has decreased. Advised pt to schedule follow appt with Pulmonology as well. Assessment & Plan (08/23/2023 11:20 AM EDT): He is seeing Pulmonology and currently on Symbicort. Continues to smoke and not ready to quite He seems to downplay his symptoms and I feel he has limited his activity due to GUIDRY. He has an appt with Dr Aguilar later today and I asked him inquire about Trelegy and whether he would benefit from it. He will talk to him and see what his opinion is on his COPD regimen. Assessment & Plan (05/10/2023 2:20 PM EST): On Symbicort. Follows Dr Aguilar. Still smoking. Counseled and educated on it. Stable. Mixed hyperlipidemia 05/10/2023 Assessment & Plan (10/03/2024 6:28 AM EDT): On statin therapy Check labs yearly an prn dose changes Assessment & Plan (05/10/2023 2:20 PM EST): On Lipitor. Check Lipid panel. Primary hypertension 05/10/2023 Assessment & Plan (10/03/2024 6:26 AM EDT): Please check blood pressure daily and record DASH diet Limit caffeine Take medication as directed Contact office if chest pain, pressure, dizziness, shortness of breath, swelling legs Recommend slow position changes Current meds: losartan, metoprolol Assessment & Plan (06/20/2024 9:49 AM EST): Currently taking Losartan 50mg Furosemide 20mg Metoprolol 25mg BID Checks BP at home; Averages are Denies orthostatic changes, dizziness, cough, shortness of breath, swelling in extremities. Continue current regimen. Given BP log, advised pt to record BP and bring log back with them to next visit. Assessment & Plan (08/23/2023 11:21 AM EDT): Well controlled. On Losartan 50 mg C/w same. Assessment & Plan (05/10/2023 2:20 PM EST): BP well controlled. On average less than 130/90. Tolerating Anti hypertensive w/o adverse effects. Denies lightheadedness, dizziness, syncope, presyncope. Patient encouraged to continue with home BP monitoring and call office if he experiences orthostatic symptoms or persistently elevated BP. Personal history of renal cell carcinoma 023 Encounter for Medicare annual wellness exam 10/2022 Assessment & Plan (10/03/2024 10:12 AM EDT): Reviewed Ht/Wt/BMI Recommend eye exam yearly Recommend dental exams twice a year Balance work/leisure activities Exercises is recommended most days of the week (appropriate as chronic conditions allow) Follow up yearly and prn Assessment & Plan (05/10/2023 2:21 PM EST): Shingles Vaccine About 4 years ago Flu vaccine 04/28 Recommended to receive Pneumonia vaccine. Ordered Cologuard. Last over 3 years ago now. Educated and counseled on smoking cessation Ordering LDCT for lung cancer screening Encounter for screening for lung cancer 05/10/20 Assessment & Plan (05/10/2023 2:31 PM EST): Smoker for over 50 years now. Associated complications include COPD. Will order LDCT. Discussed risks vs benefit of lung cancer screening. Malignant neoplasm of prostate 12/05/2013 Resolved Problems Problem Noted Date Diagnosed Date Resolved Date Encounter for subsequent [facility] wellness visit (AWV) in Medicare patient 10/03/2024 10/04/19 25 Fall 05/22/2024 10/03/2024 Assessment & Plan (05/22/2024 11:28 AM EST): Was seen again in ED and admitted [...] I will gladly send a referral over Ankle injury, right, initial encounter 03/19/2024 10/03/2024 Assessment & Plan (03/19/2024 10:45 AM EDT): Rolled ankle;e 2 weeks ago. Did not receive tx or imaging. Reports swelling and tenderness still Is able to bear weight and ambulate, but does report associated pain. Selling noted on observation. No discoloration observed. Xray ankle ordered. Dyslipidemia 08/23/2023 10/03/2024 Assessment & Plan (06/20/2024 9:49 AM EST): Currently taking atorvastatin 40mg Denies any myalgias. Continue current regimen. Hospital discharge follow-up 08/23/2023 10/03/2024 Assessment & Plan (08/23/2023 11:22 AM EDT): Recent hospital admission for overnight observation. He presented to ED with nausea, vomiting and possible hematemesis. He seems to think it was food. There was no blood in his stool and his CBC was stable. He was discharged after one day of observation Will check CBC to make sure Hb is stable. He likely had gastroenteritis and his symptoms resolved quickly during hospital stay. He denies nausea, vomiting and has been doing well since then. Hematemesis with nausea 08/23/2023 04/2 09/2023 Assessment & Plan (08/23/2023 11:25 AM EDT): Hospital admission/observation for intractable nausea/vomiting with suspicion for hematemesis. Monitored overnight - CBC remained stable and his GI symptoms resolved. Likely gastroenteritis and not truly an episode of hematemesis. Will check CBC to ensure hb is stable. URI (upper respiratory infection) 05/10/2023 10/03/2024 Assessment & Plan (04/24/2024 1:02 PM EST): Was seen in ER on 04/12/2024 for [...] shortness of breath, dizziness. Pt verbalized understanding. Assessment & Plan (03/19/2024 10:43 AM EDT): Sinus congestion, runny nose, body aches X10 days. Discussed likely viral etiology. Ordered COVID/Flu/RSV panel. Recommended rest, fluids, OTC management for now. Assessment & Plan (05/10/2023 2:25 PM EST): Sore throat, cough, sinus/nasal congestion x 2 weeks. Likely pharyngitis. Will order Azithromycin for him, Encounters Date Type Department Care Team Description 10/12/2024 Clinisync Result Encounter [facility] External Department Unsolicited Provider, Generic External Data 10/03/2024 9:40 AM EDT Office Visit [facility] [address] [place] [address] Susan Edward NP Encounter for Medicare annual wellness exam (Primary Dx); Pulmonary emphysema, unspecified emphysema type ([facility]/HCC); Primary hypertension (CMS/HCC); BPH with obstruction/lower urinary tract symptoms; Stage 3a chronic kidney disease (HCC) (CMS/HCC); Mixed hyperlipidemia (CMS/HCC); Tobacco dependence syndrome; Hyperlipidemia, unspecified (CMS/HCC); Centrilobular emphysema (CMS/HCC); Viral upper respiratory tract infection; Chronic right heart failure (HCC) (CMS/HCC); Essential (primary) hypertension (CMS/HCC); Gastroesophageal reflux disease with esophagitis without hemorrhage; Malignant (primary) neoplasm, unspecified (CMS/HCC); MATILDA (obstructive sleep apnea) 10/03/2024 Bamboo flowsheet [facility] [address] [place] [address] Susan Edward NP 09/10/2024 Telephone [facility] [address] [place] [address] Susan Edward NP 08/14/2024 Clinisync Result Encounter [facility] External Department Unsolicited Provider, Generic External Data from Last 3 Months Immunizations Immunization Administration Dates Next Due Influenza, High-dose Seasona l, Quadrivalent, Preservative Free 03/17/2023,03/27/2022,03/26/2021 Influenza, seasonal, injectable 05/14/2014 Family History Medical History Relation Name Comments Cancer Father Diabetes Father Hypertension Mother Relation Name Status Comments Father Mother Alive Social History Tobacco Use Types Packs/Day Years Used Date Smoking Tobacco: Every Day Cigarettes 1 52 Passive Smoke Exposure: Current Smokeless Tobacco: Never Tobacco Cessation:Ready to Q uit: Not Asked; Counseling Given: Not Answered Alcohol Use Standard Drinks/Week Comments Yes 2 [...] How often do you attend chur or anglican services? Never 05/10/2023 Do you belong to any clubs o r organizations such as scientology groups, unions, fraternal or athletic groups, or [...] Answer Date Recorded Patient Health Questionnaire-2 Score 1 10/03/2024 [facility] - [...] place to sleep or slept in a fci (including now)? No 05/10/2023 Sex and Gender Information Value Date Recorded Sex Assigned at Not on file Legal Sex Male 7:30 PM EDT Gender Identity Not on file Sexual Orientation Not on file Last Filed Vital Signs Vital Sign Reading Time Taken Comments Blood Pressure 130/68 10/03/2024 9:44 AM EDT Pulse 72 10/03/2024 9:44 AM EDT Temperature 36.2 C (97.1 F) 10/03/2024 9:44 AM EDT Respiratory Rate 18 10/03/2024 9:44 AM EDT Oxygen Saturation 98% 10/03/2024 9:44 AM EDT Inhaled Oxygen Concentration - - Weight 109 kg (241 lb) 10/03/2024 9:44 AM EDT Height 177.8 cm (5' 10 ) 10/03/2024 9:44 AM EDT Body Mass Index 34.58 10/03/2024 9:44 AM EDT Plan of Treatment Upcoming Encounters Date Type Department Care Team (Late st Contact Info) Description 10/07/2025 10:30 AM EDT Office Visit [facility] [address] [place] [address] Susan Edward, NIC [address] [facility] [place] [address] Health Maintenance Due Date Last Done Comments CT Colonography 1955 Colonoscopy 1955 FIT 1955 FOBT 1955 Sigmoidoscopy 1955 Pneumococcal Vaccine: 65+ Ye ars (1 of 2 - PCV) 02/21/1975 Influenza Vaccine (Season Ended) 2025 03/17/2023, 03/27/2022, 03/26/2021, Additional history exists Colorectal Cancer Screening 09/22/2026 FIT-DNA 09/22/2026 09/23/2023, 08/18/2023 Procedures Procedure Name Priority Date/Time Associated Diagnosis Comments CT CHEST WO CON 10/12/2024 2:43 PM EDT MHPT PSA, DIAGNOSTIC Routine 08/14/2024 9:58 AM EDT LAB COLOGUARD COLON CANCER SCREEN Routine 09/23/2023 10:24 AM EDT from Last 3 Months or Most Recently Relevant to Health Maintenance Results * CT CHEST WO CON (10/12/2024 2:43 PM EDT) Anatomical Region Laterality Modality Other 10/12/2024 2:43 PM EDT Narrative 10/12/2024 2:45 PM EDT The [address] [address] [address] Scan Report Signed Patient: ABBEY MUSTAFA MR#: [id number] : 1955 Acct:[id number] Age/Sex: 69 / M ADM Date: 10/12/24 Loc: CT Attending Dr: Rukhsana Aguilar D.O. Ordering Physician: Rukhsana Aguilar D.O. Date of Service: 10/12/24 Procedure(s): CT chest wo con Accession Number(s): [id number] cc: Susan Edward NP [place] [id number] Patient Name: ABBEY MUSTAFA MRN: [id number] date: 1955 Sex: M Assigned Patient Location: CT Current Patient Location: CT Accession/Order Number: [id number] Exam Date: 10/12/2024 14:40 Report Date: 10/12/2024 14:43 At the request of: RUKHSANA AGUILAR DO Procedure: CT chest wo con CT CHEST WITHOUT IV CONTRAST: CLINICAL HISTORY: Abnormal CT Lung Screening COMPARISON: Lung screening CT 07/05/2022, CT chest 10/11/2022 TECHNIQUE: Spiral images were obtained through the chest without IV contrast. This CT exam was performed using one or more following dose reduction techniques: Automated exposure control, adjustment of the mA and/or kV according to patient size, or use of iterative reconstruction technique. FINDINGS: Mediastinum:Thoracic aorta appears normal in caliber. Pulmonary trunk appears nondilated. No pericardial effusion or lymphadenopathy. The esophagus is grossly unremarkable. Lungs:No consolidation pneumothorax or pleural effusion. Mild lung scarring and bronchial wall thickening. No suspicious pulmonary nodule. Abd:Liver and splenic granulomas. Calcification the region of the left adrenal gland likely sequela of prior hemorrhage or trauma. Soft tissues/Bones: No acute findings. CT/CT chest wo con IMPRESSION: No acute findings. No suspicious pulmonary nodule. LUNG RADS: Category 1, Negative (No nodules and definitely benign nodules). Management: Continue annual lung screening with LDCT in 12 months. Impression dictated by: Horace Lantigua Jr., D.O. 10/12/2024 2:43 PM Dictation Location: [place] [address] Electronically authenticated by: [id number] Y Date: 10/12/2024 14:43 Dictated By: Horace Lantigua M.D. Signed By: 10/12/24 1445 DD/ 42 TD/TT: Pulmonary Specialist: Procedure Note Radiology, Radiologist, - 10/12/2024 [place] [address] CT Scan Report Signed Patient: ABBEY MUSTAFA LMR#: [id number] : 1955cct:[id number] Age/Sex: 69 / MADM Date: 10/12/24 Loc: CT Attending Dr: Rukhsana Aguilar D.O. Ordering Physician: Rukhsana Aguilar D.O. Date of Service: 10/12/24 Procedure(s): CT chest wo con Accession Number(s): [id number] cc: Susan Edward NP [place] [address] Patient Name: ABBEY MUSTAFA MRN: [facility]:[id number] date: 1955 Sex: M Assigned Patient Location: CT Current Patient Location: CT Accession/Order Number: [id number] Exam Date: 10/12/2024 14:40 Report Date: 10/12/2024 14:43 At the request of: RUKHSANA AGUILAR DO Procedure: CT chest wo con CT CHEST WITHOUT IV CONTRAST: CLINICAL HISTORY: Abnormal CT Lung Screening COMPARISON: Lung screening CT 07/05/2022, CT chest 10/11/2022 TECHNIQUE: Spiral images were obtained through the chest without IVcontrast. This CT exam was performed using one or more following dose reduction techniques: Automated exposure control, adjustment of the mA and/or kV according to patient size, or use of iterative reconstruction technique. FINDINGS: Mediastinum:Thoracic aorta appears normal in caliber. Pulmonary trunkappears nondilated. No pericardial effusion or lymphadenopathy. The esophagus is grossly unremarkable. Lungs:No consolidation pneumothorax or pleural effusion. Mild lungscarring and bronchial wall thickening. No suspicious pulmonary nodule. Abd:Liver and splenic granulomas. Calcification the region of the left adrenal gland likely sequela of prior hemorrhage or trauma. Soft tissues/Bones: No acute findings. CT/CT chest wo con IMPRESSION: No acute findings. No suspicious pulmonary nodule. LUNG RADS: Category 1, Negative (No nodules and definitely benign nodules). Management: Continue annual lung screening with LDCT in 12 months. Impression dictated by: Horace Lantigua Jr., D.O. 10/12/2024 2:43 PM Dictation Location: [place] [address] Electronically authenticated by: [id number] Y Date: 4:43 Dictated By: Horace Lantigua M.D. Signed By:10/12/24 1445 DD/ 1443 TD/TT: Pulmonary Specialist: Generic External Data Provider [facility] Final Result * MHPT PSA, DIAGNOSTIC (08/14/2024 9:58 AM EDT) PROSTATE SPECIFIC ANTIGEN DX <0.13 <=4.00 ng/mL TB 08/14/2024 9:58 AM EDT 08/14/2024 10:02 AM EDT Narrative [facility] - 08/14/2024 11:36 AM EDT Generic External Data Provider [facility] F inal Result [facility] * Cologuard?? colon cancer screening (09/23/2023 10:24 AM EDT) Stool us Shaikh Kalin [facility] ORDER ROHIT Final Result from Last 3 Months or Most Recently Relevant to Health Maintenance Insurance [employer] MED[employer]ARE [employer]VANTAGE Care Teams Senior Financial Accountant Relationship Specialty Start Date End Date Shaikh Gagnon MD [address] [place] [facility] [place] [address] PCP - [employer] 06/06/23 Rm Rainey MD [address] [place] [address] PCP - General Family Medicine 04/05/24 Mignon Rodriguez NP [address] [place] [address] Nurse Practitioner Family Medicine 01/16/24
--- OUTSIDE RECORDS SUMMARY | 2024-11-14 10:31 | XMS_ITS | Encounter Summary ---
Author Organization [facility] Address [address] [place] [address] Care Team Providers Care [employer] Industrial Arts Teacher Name Role Phone Shaikh EMEKA Gagnon Unavailable [phone] Mignon Rodriguez NP Unavailable [phone] Rm Rainey MD Primary Care Provider Encounter Details Date Type Department Care Team (Late st Contact Info) Description 05/09/2024 Orders Only [facility] [address] [place] [address] Shaikh Gagnon MD [address] [place] [address] Social History Tobacco Use Types Packs/Day Years [...] week 05/10/2023 How often do you attend [facility] or anabaptist services? Never 05/10/2023 Do you belong to any clubs o r organizations such as presybeterian groups, unions, fraternal or athletic groups, or [...] Recorded Patient Health Questionnaire-2 Score 0 11/24/2023 [facility] Questionnaire Answer [...] place to sleep or slept in a care home (including now)? No 05/10/2023 Sex and [...] Office Visit [facility] [address] [place] [address] Susan Edward NP [address] [place] [address] documented as of this encounter Procedures Procedure Name Priority Date/Time Associated Diagnosis Comments ECHOCARDIOGRAM WITH DOPPLER IF INDICATED Routine 05/09/2024 7:16 AM EST documented in this encounter Results * ECHOCARDIOGRAM WITH DOPPLER IF INDICATED (05/09/2024 7:16 AM EST) Anatomical Region Laterality Modality Radiographic Rajani ging us Shaikh Kalin [facility] XR PROCEDURES Final Result documented in this encounter Visit Diagnoses Not on filedocumented in this encounter Additional Health Concerns Assessment Noted Time PHQ-9 Depression Total Score: 0 05/10/20 23 2:06 PM EST documented as of this encounter Care Teams [employer] Industrial [employer] Teacher Relationship Specialty Start Date End Date Shaikh Gagnon MD [address] [place] [address] PCP - [employer] 06/06/23 Rm Rainey MD [address] [place] [address] PCP - General Family Medicine 04/05/24 Mignon Rodriguez NP [address] [place] [phone] Nurse Practitioner Family Medicine 01/16/24 documented as of this encounter
--- OUTSIDE RECORDS SUMMARY | 2024-11-14 10:31 | XMS_ITS | Patient Health Record ---
Author Organization [facility] in [place] Address [address] [place] [address] Care Team Providers Care Bone Drier Name Role Phone Susan Edward CNP Primary Care Provider Unavail able Rukhsana Aguilar Unavailable [phone] Allergies No Known Allergies Results Component Value Reference Range Notes CT chest wo con Reviewed date:10/15/2024 07:33:53 AM Interpretation: Performing Lab: Notes/Report: Source Facility: [place] [address] CT Scan Report Signed Patient: MARCO IRVING MR#: [id number] : 1955 Acct:[id number] Age/Sex: 69 / M ADM Date: 10/12/24 Loc: CT Attending Dr: Rukhsana Aguilar D.O. Ordering Physician: Rukhsana Aguilar D.O. Date of Service: 10/12/24 Procedure(s): CT chest wo con Accession Number(s): [id number] cc: Susan Edward NP [place] [address] Patient Name: MARCO IRVING MRN: [id number] date: 1955 Sex: M Assigned Patient Location: CT Current Patient Location: CT Accession/Order Number: [id number] Exam Date: 10/12/2024 14:40 Report Date: 10/12/2024 [...] Jr., D.O. 10/12/2024 2:43 PM Dictation Location: [place] [address] Electronically authenticated by: [id number] Y Date: 10/12/2024 14:43 Dictated By: Horace Lantigua M.D. Signed By: 10/12/24 1445 DD/ 1443 TD/TT: Shipping Hand: [place] [address] CT Scan Report Signed Patient: ANILA IRVING AM MR#: [id number] : 1955 Acct:[id number] Age/Sex: 69 / M ADM Date: 10/12/24 Loc: CT Attending Dr: Rukhsana Aguilar D.O. Ordering Physician: Rukhsana Aguilar D.O. Date of Service: 10/12/24 Procedure(s): CT chest wo con Accession Number(s): [id number] cc: Susan dEward NP [address] [address] Patient Name: MARCO IRVING MRN: [id number] date: 1955 Sex: M Assigned Patient Location: CT Current Patient Location: CT Accession/Order Numb er: [id number] Exam Date: 10/12/2024 14:40 Report Date: 10/12/2024 14:43 At the request of: RUKHSANA AGUILAR DO Procedure: CT chest wo con CT CHEST WITHOUT IV CONTRAST: CLINICAL HISTORY: Ab normal CT Lung Screening COMPARISON: Lung scr eening CT 07/05/2022, CT chest 10/11/2022 TECHNIQUE: Spiral im ages were obtained through the chest without IV contrast. This CT exam was per formed using one or more following dose reduction techniques: Automate d exposure control, adjustment of the mA and/or kV according to patient size, or use of iterative reconstruction technique. FINDINGS: Mediastinum:Thoracic aorta appears normal in caliber. Pulmonary trunk appears nondilated. No peric ardial effusion or lymphadenopathy. The esophagus is grossly unremarkable. Lungs:No consolidati on pneumothorax or pleural effusion. Mild lung scarring and bronchial wall t hickening. No suspicious pulmonary nodule. Abd:Liver and spleni c granulomas. Calcification the region of the left adrenal gland likely sequela of prior hemorrhage or trauma. Soft tissues/Bones: No acute findings. C T/CT chest wo con IMPRESSION: No acute findings. N o suspicious pulmonary nodule. LUNG RADS: Category 1, Negative (No nodules and definitely benign nodules). Management: Continue annual lung screening with LDCT in 12 months. Impression dictated by: Horace Lantigua Jr., D.O. 10/12/2024 2:43 PM Dictation Location: [place] [address] Electronically authe nticated by: [id number] Y Date: 10/12/2024 14:43 Dictated By: Horace Burrell i, M.D. Signed By: 10/12/24 1445 DD/ 144 TD/TT: Shipping Hand: CT Chest w/o contrast Reviewed date:10/15/2024 07:17:03 AM Interpretation: Performing Lab: Notes/Report: Reason For Referral No Information Medications Medication SIG (Take, Route, Frequency, Duration) Notes Start Date End Date Status Flomax 0.4 MG 1 capsule Orally Onc e a day Active Baclofen 5 MG 1 tablet as needed O rally Once a day Active Ventolin HFA 108 (90 Base) MCG/ACT 2 puffs as needed for SOB Inhalation Q4H for 90 days Active Nitrostat 0.4 MG as directed Sublingual Active Metoprolol Tartrate 25 MG 1 tablet with food Orally Twice a day Active Losartan Potassium 50 MG 1 tablet Orally Once a day Active Furosemide 20 MG 1 tablet Orally Once a day Active Allopurinol 100 MG 1 tablet Orally Once a day Active Vitamin D3 50 MCG (1999) 1 capsule Or ally Once a day Active Omeprazole 40 MG TAKE 1 CAPSULE BY [facility] DAILY Oral for 30 Days Active Symbicort 160-4.5 MCG/ACT 2 puffs Inhalation BID for 90 days Rinse after use Active Atorvastatin Calcium 40 MG 1 tablet Oral ly Once a day Active Immunizations Vaccine Route Administration Date Status Comme nts Flu, Fluzone High-Dose (2022 -2023) (22096) 65 yrs+ Unknown 03/17/2023 Administered Flu, Fluzone High-Dose (9066 2) 65 yrs+ (8297-2736) Unknown 03/27/2022 Administered SARS-COV-2 (COVID 19 Moderna - Booster 0.25mL) Unknown 05/27/2021 Administered Social History Tobacco Use: Social History Observation Description Date Details (start date - stop date) Current Smoker NA - NA Sex Assigned At : Social History Observation Description Sex Assigned At Male Tobacco Control (Standard) Question Answer Notes Tobacco use: Current every day smoker Additional Findings: Tobacco user Heavy cigarett e smoker (20-39 cigs/day) Problems Problem Type SNOMED Code ICD Code Onset Dates Problem Status W/U Status Risk Notes Problem 582446178 Obesity, unspecified (E66.9) Active confirmed Problem Centrilobular emphysema (76923894) Centrilobular emphysema (J43.2) Active confirmed Problem 627309615 halfway (current) use of inhaled steroids (Z79.51) Active confirmed Problem Hypertension (70801130) HTN (hypertension) (I10) Active confirmed Problem Anemia (664308097) Anemia (D64.9) Active confirmed Problem Obstructive sleep apnea syndrome (93279006) MATILDA (obstructive sleep apnea) (G47.33) Active confirmed 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) Cigarette nicotine dependence with nicotine-induced disorder (F17.219) Active confirmed Problem Osteophyte (66706711) 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) Active confirmed Problem Breathing painful (37949874) Rib pain on left side (R07.81) Active confirmed Problem Alcohol intoxication (83143424) Alcohol intoxication (F10.129) Active confirmed Vital Signs Heart Rate 75 /min 10/18/2024 Temperature 97.1 degrees Fahrenheit 10/18/2024 Respiratory Rate 20 /min 10/18/2024 Blood pressure diastolic 71 mm Hg 10/18/2024 Oximetry 97 % 10/18/2024 Height 70 in 10/18/2024 Blood pressure systolic 146 mm Hg 10/18/2024 Weight 235.6 lbs 10/18/2024 BMI 33.8 kg/m2 10/18/2024 Encounters Encounter Location Date Provider Diagnosis Pulmonary Medicine [facility] [address] [place] [address] 05/24/2024 [facility] Pulmonary Medicine [place] [address] [place] [address] 06/12/2024 [facility] Pulmonary [facility] [address] [place] [address] 08/21/2024 [facility] Pulmonary [facility] [address] [place] [address] 10/03/2024 [facility] MATILDA (obstructive sle ep apnea) G47.33 ; Centrilobular emphysema J43.2 ; Hoarseness R49.0 ; Cigarette nicotine dependence with nicotine-induced disorder F17.219 ; Abnormal CT lung screening R91.8 ; halfway (current) use of inhaled steroids Z79.51 ; Obesity, unspecified E66.9 and Body mass index [BMI] 33.0-33.9, adult Z68.33 [facility] [place] [address] [place] [address] 10/18/2024 [facility] MATILDA (obstructive sle ep apnea) G47.33 ; Centrilobular emphysema J43.2 ; Cigarette nicotine dependence with nicotine-induced disorder F17.219 ; manager long term care (current) use of inhaled steroids Z79.51 ; Obesity, unspecified E66.9 and Encounter for screening for malignant neoplasm of respiratory organs Z12.2 Assessments Encounter Date Diagnosis (ICD Code) Assessment Notes Treatment Notes Treatment Clinical Notes Section Notes 10/03/2024 MATILDA (obstructive sleep apnea) (ICD-10 - G47.33) Axpb-ad-kcdf encounter performed with the patient to document continued need for PAP therapy. -Split-night study 03/24/2023: AHI 23 -Compliance was reviewed from: 07/24/2023 - 08/22/2023-Current mode & pressures: AirSense 11 AutoSet CPAP 35pzE1V-Rlseemsj AHI: 7.2-Air leak (95th percentile): 51.4L/min-Mask/harn ess fitting: Has difficulty getting his mask to stay put often as he has an underbite. He also has a dog that jumps onto his bed and tries to nudge the mask off-Sleep quality: Good sleep quality with use. States he does not sleep well without it.-Daytime hypersomnolence: Decreased with use.-Recommendation s: AHI has worsened slightly since last visit with increased air leak. Discussed mask fitting. Attempt to avoid the dog nudging his mask as best able. Continues to have better symptom control. No changes to pressure at this time. Continue to use the CPAP @ HS & naps. 10/18/2024 MATILDA (obstructive sleep apnea) (ICD-10 - G47.33) Hufe-ye-aivg encounter performed with the patient to document continued need for PAP therapy. -Split-night study 03/24/2023: AHI 23 -Compliance was reviewed from: 09/11/2024 - 10/10/2024 -Total days used: 30 (100%) -Total of all days >4 hours of use: 30/ (100%) -Current mode & pressures: AirSense 11 AutoSet CPAP 34xuP9V-Yyliwyyu AHI: 7.9-Median air leak: 19.3L/min-Mask/harn ess fitting: He got rid of his dog, so he is not having to deal with that any more. Does not complain of any significant mask fitting issues today.-Sleep quality: Reports restful sleep with use.-Daytime hypersomnolence: Decreased with use.-Recommendation s: Superb compliance. AHI still not optimal - goal <5. At straight 45xiQ4R pressure. Discussed adjusting to auto-CPAP to see if this can nudge his AHI to goal. He voiced agreement. As he is still having the residual events at 43pwJ4A, will keep 35fkX3P at the minimum and change to auto-CPAP 13-48yyQ4Y. He voiced he likes the ramp as [...] (RADS-1). Next LDCT is due October 2025. 10/03/2024 Centrilobular emphysema (ICD-10 - J43.2) Respiratory [...] R49.0) New hoarseness, ongoing ~2 months. Etiology unclear...GERD/LPR? [...] know and I will send one in. 10/18/2024 halfway (current) use of inhaled steroids (ICD-10 - Z79.51) He was counseled to rinse & gargle with water after inhaled corticosteroid use. 10/18/2024 Obesity, unspecified (ICD-10 - E66.9) Weight loss recommended. 10/03/2024 Cigarette nicotine dependence with nicotine-induced disorder [...] in October to maintain the annual evaluation. 10/18/2024 Encounter for screening for malignant neoplasm [...] smoking cessation/continued tobacco abstinence. LDCT due 10/2025. 10/03/2024 manager long term care (current) use of inhaled steroids (ICD-10 - Z79.51) was counseled to rinse & gargle with water after inhaled corticosteroid use. 10/03/2024 Obesity, unspecified (ICD-10 - E66.9) Weight loss indicated. 10/03/2024 Body mass index [BMI] 33.0-33.9, adult (ICD-10 - Z68.33) Plan Of Treatment Next Appt Details Provider Name:Rukhsana Aguilar 10/16/2025 11:00:00 AM, [address] [place], [address], Insurance Providers Payer Name Payer Address Payer Phone Subscriber Number Group Number Insured Name Patient Relationship to Insured Coverage Start Date Coverage End Date [employer] MED[employer]ARE [address] [place], [place] [id number] Marco Irving Self - patient is the insured 3 Medical (General) History Medical History History ICD Code MATILDA (obstructive sleep apnea) G47.33 Centrilobular emphysema J43.2 Cigarette nicotine dependence with nicot ine-induced disorder F17.[address] lung screening R91.8 Gastro-esophageal reflux disease K21.9 Hyperlipidemia E78.5 Benign essential hypertension I10 History of prostate cancer Z85.46 History of renal cell cancer Z85.528 Hoarseness R49.0 Surgical History Surgery Date(Month/Year) Cataract removal (Left 08/04/2022, Right ) Prostate Surgery Hernia Repair Oral surgery Nephrectomy-Left Hospitalization History Reason Date(Month/Year) Hematemesis-[facility] 08/12/2023
--- OUTSIDE RECORDS SUMMARY | 2024-11-14 10:31 | XMS_ITS | Encounter Summary ---
Author Organization [facility] Address [address] [place] [address] Care Team Providers Care As400 Analyst Name Role Phone Shaikh EMEKA Gagnon Unavailable [phone] Shaikh EMEKA Gagnon Primary Care Provider [phone] Rm Rainey MD Primary Care Provider [phone] Mignon Rodriguez NP Unavailable [phone] Unallocated, Noms Provider Primary Care Provi phoebe Rm Rainey MD Primary Care Provider [phone] Encounter Details Date Type Department Care Team (Late st Contact Info) Description 08/24/2023 Clinisync Result Encounter [facility] External Department Unsolicited Shaikh Gagnon MD [address] [place] [address] Social History Tobacco Use Types Packs/Day Years [...] 05/10/2023 How often do you attend [facility] or islam services? Never 05/10/2023 Do you belong to any clubs o r organizations such as moravian groups, unions, fraternal or athletic groups, or [...] Office Visit [facility] [address] [place] [address] Susan Edward NP [address] [place] [address] documented as of this encounter Procedures Procedure Name Priority Date/Time Associated Diagnosis Comments XR THORACIC SPINE 3V 08/24/2023 7:19 AM EDT documented in this encounter Results * XR THORACIC SPINE 3V (08/24/2023 7:19 AM EDT) Anatomical Region Laterality Modality Other 08/24/2023 7:19 AM EDT Narrative 08/24/2023 7:22 AM EDT The [address] [address] XRay Report Signed Patient: ABBEY IRVING MR#: [id number] : 1955 Acct:[id number] Age/Sex: 68 / M ADM Date: 08/23/23 Loc: LAB Attending Dr: Shaikh Kalin Menchaca Ordering Physician: Shaikh Nikolai Gagnon Date of Service: 08/23/23 Procedure(s): XR thoracic spine 3V Accession Number(s): [id number] cc: Shaikh Nikolai Gagnon The [place] [address] Patient Name: ABBEY IRVING MRN: [id number] date: 1955 Sex: M Assigned Patient Location: LAB Current Patient Location: Accession/Order Number: [id number] Exam Date: 08/23/2023 15:38 Report Date: 08/24/2023 07:19 At the request of: SHAIKH KALIN Procedure: XR thoracic spine 3V EXAMINATION: XR thoracic spine 3V HISTORY: chronic midline thoracic back pain M54.6 COMPARISON: No relevant comparison available. FINDINGS: BONES: Normal alignment with no acute fracture or spondylolisthesis. Moderate to severe diffuse degenerative spondylosis. Mild facet osteoarthropathy. DISC SPACES: Normal. No significant disc height narrowing, subluxation, or endplate abnormality. PARASPINOUS: Negative. No paraspinous abnormality is seen. OTHER: Negative. XR/XR thoracic spine 3V IMPRESSION: Moderate to severe degenerative spondylosis Electronically authenticated by: DANISHA CHANG Date: 08/24/2023 07:19 Dictated By: Danisha Chang M.D. Signed By: 08/24/23 0722 DD/ 0719 TD/TT: Personal Driver: Procedure Note Radiology, Radiologist, - 08/24/[address] [address] XRay Report Signed Patient: ABBEY IRVING LMR#: [id number] : 1955cct:[id number] Age/Sex: 68 / MADM Date: 08/23/23 Loc: LAB Attending Dr: Shaikh Kalin Menchaca Ordering Physician: Shaikh Nikolai Gagnon Date of Service: 08/23/23 Procedure(s): XR thoracic spine 3V Accession Number(s): [id number] cc: Shaikh Nikolai Gagnon [facility] [address] [place] [address] Patient Name: ABBEY IRVING MRN: [facility]:[id number] date: 1955 Sex: M Assigned Patient Location: LAB Current Patient Location: Accession/Order Number: [id number] Exam Date: 08/23/2023 15:38 Report Date: 08/24/2023 07:19 At the request of: SHAIKH KALIN Procedure: XR thoracic spine 3V EXAMINATION: XR thoracic spine 3V HISTORY: chronic midline thoracic back pain M54.6 COMPARISON: No relevant comparison available. FINDINGS: BONES: Normal alignment with no acute fracture or spondylolisthesis.Moderate to severe diffuse degenerative spondylosis. Mild facet osteoarthropathy. DISC SPACES: Normal. No significant disc height narrowing, subluxation, or endplate abnormality. PARASPINOUS: Negative. No paraspinous abnormality is seen. OTHER: Negative. XR/XR thoracic spine 3V IMPRESSION: Moderate to severe degenerative spondylosis Electronically authenticated by: DANISHA CHANG Date: 08/24/2023 07:19 Dictated By: Danisha Chang M.D. Signed By:08/24/2322 DD/ 8 TD/TT: Personal Driver: us Shaikh Kalin [facility] Final Result documented in this encounter Visit Diagnoses Not on filedocumented in this encounter Additional Health Concerns Assessment Noted Time PHQ-9 Depression Total Score: 0 05/10/20 23 2:06 PM EST documented as of this encounter Care Teams As400 Analyst Relationship Specialty Start Date End Date Shaikh Gagnon MD [address] [place] [address] PCP - Aet 06/06/23 Shaikh Gagnon MD [address] [place] [address] PCP - General Internal Medicine 08/23/23 01/15/24 Rm Rainey MD [address] [place] [address] PCP - General Family Medicine 01/16/24 03/19/24 Unallocated, Jyoti Pink MD [address] [place] [address] PCP - General Family Medicine 03/20/24 04/04/24 Rm Rainey MD [address] [place] [address] PCP - General Family Medicine 04/05/24 Mignon Rodriguez NP [address] [place] [address] Nurse Practitioner Family Medicine 01/16/24 documented as of this encounter
--- OUTSIDE RECORDS SUMMARY | 2024-11-14 10:31 | XMS_ITS | Encounter Summary ---
Author Organization [facility] Address [address] [place] [address] Care Team Providers Care Surgical Elastic Knitter Hand Frame Name Role Phone Shaikh EMEKA Gagnon Unavailable [phone] Mignon Rodriguez NP Unavailable [phone] Rm Rainey MD Primary Care Provider Encounter Details Date Type Department Care Team (Late st Contact Info) Description 05/23/2024 Orders Only [facility] [address] [place] [address] Shaikh Gagnon MD [address] [place] [address] Social History Tobacco Use Types Packs/Day Years [...] week 05/10/2023 How often do you attend [facility] or lutheran services? Never 05/10/2023 Do you belong to [...] Recorded Patient Health Questionnaire-2 Score 0 11/24/2023 [facility] Questionnaire [...] money to buy more. Never true 05/10/20 Within the past 12 months, t he [...] EDT Office Visit [facility] [address] [place] [address] Susan Edward NP [address] [place] [address] documented as of this encounter Procedures Procedure Name Priority Date/Time Associated Diagnosis Comments SCANNED LABS Routine 05/23/2024 7:47 AM EST documented in this encounter Results * SCANNED LABS (05/23/2024 7:47 AM EST) us Shaikh Kalin [facility] Final Resu lt documented in this encounter Visit Diagnoses Not on filedocumented in this encounter Additional Health Concerns Assessment Noted Time PHQ-9 Depression Total Score: 0 12/05/20 23 2:06 PM EST documented as of this encounter Care Teams Surgical Elastic Knitter Hand Frame Relationship Specialty Start Date End Date Shaikh Gagnon MD [address] [place] [address] PCP - [employer] 06/06/23 Rm Rainey MD [address] [place] [address] PCP - General Family Medicine 04/05/24 Mignon Rodriguez NP [address] [place] [address] Nurse Practitioner Family Medicine 01/16/24 documented as of this encounter
--- OUTSIDE RECORDS SUMMARY | 2024-11-14 10:31 | XMS_ITS | Encounter Summary ---
Author Organization [facility] Address [address] [place] [address] Care Team Providers Care House Officer Name Role Phone Shaikh EMEKA Gagnon Unavailable [phone] Mignon Rodriguez NP Unavailable [phone] Rm Rainey MD Primary Care Provider [phone] Encounter Details Date Type Department Care Team (Late st Contact Info) Description 05/17/2024 Abstract [facility] [address] [place] [phone] Mignon Rodriguez NP Social History Tobacco Use Types Packs/Day Years [...] 05/10/2023 How often do you attend chur ch or druze services? Never 05/10/2023 Do you belong to any clubs o r organizations such as anabaptist groups, unions, fraternal or athletic groups, or [...] Recorded Patient Health Questionnaire-2 Score 0 11/24/2023 [facility] Answer Date Recorded [...] place to sleep or slept in a usp (including now)? No 05/10/2023 Sex and Gender [...] Office Visit [facility] [address] [place] [address] Susan Edward NP [address] [place] [address] documented as of this encounter Visit Diagnoses Not on filedocumented in this encounter Additional Health Concerns Assessment Noted Time PHQ-9 Depression Total Score: 0 05/10/20 23 2:06 PM EST documented as of this encounter Care Teams House Officer Relationship Specialty Start Date End Date Shaikh Gagnon MD [address] [place] [address] PCP - [employer] 06/06/23 Rm Rainey MD [address] [place] [address] PCP - General Family Medicine 04/05/24 Mignon Rodriguez NP [address] [place] [address] Nurse Practitioner Family Medicine 01/16/24 documented as of this encounter
--- OUTSIDE RECORDS SUMMARY | 2024-11-14 10:31 | XMS_ITS | Clinical Summary ---
Author Organization [facility] Address [address] [place] [address] Phone Care Team Providers Care Product Promoter Retail Pet Name Role Phone Jem Hadley MD Primary Care Provider [phone] Social History Tobacco Use Types Packs/Day Years Used Date Smoking Tobacco: Never Assessed Sex and Gender Information Value Date Recorded Sex Assigned at Not on file Legal Sex Male 3:40 PM EST Gender Identity Not on file Sexual Orientation Not on file Plan of Treatment Not on file Care Teams Product Promoter Retail Pet Relationship Specialty Start Date End Date Jem Hadley MD [address] [place] [address] PCP - General 01/02/13
--- OUTSIDE RECORDS SUMMARY | 2024-11-14 10:31 | XMS_ITS | Encounter Summary ---
Author Organization [facility] Address [address] [place] [address] Care Team Providers Care Steamfitter Apprentice Name Role Phone Shaikh EMEKA Gagnon Primary Care Provider [phone] Shaikh EMEKA Gagnon Unavailable [phone] Shaikh EMEKA Gagnon Primary Care Provider [phone] Rm Rainey MD Primary Care Provider [phone] Mignon Rodriguez NP Unavailable [phone] Unallocated, Noms Provider Primary Care Provi phoebe Rm Rainey MD Primary Care Provider [phone] Reason for Visit * Reason Comments Med Refill Encounter Details Date Type Department Care Team (Late st Contact Info) Description 06/28/2023 [facility] [address] [place] [address] Shaikh Gagnon MD [address] [place] [address] Essential (primary) hypertension (CMS/HCC) Social History Tobacco Use Types Packs/Day Years [...] week 05/10/2023 How often do you attend [facility] or scientology services? Never 05/10/2023 Do you belong to any clubs o r organizations such as pentecostalism groups, unions, fraternal or athletic groups, or [...] Recorded Patient Health Questionnaire-2 Score 0 05/10/2023 [facility] [place] of Occupat ional Health - Occupational Stress [...] place to sleep or slept in a longterm (including now)? No 05/10/2023 Sex and Gender Information Value Date Recorded Sex Assigned at Not on file Legal Sex Male 7:30 PM EDT Gender Identity Not on file Sexual Orientation Not on file documented as of this encounter Miscellaneous Notes * Telephone Encounter - Shaikh Kalin MD - 06/28/2023 2:39 PM EST Approving, but needs appt for additional refills. documented in this encounter Plan of Treatment Upcoming Encounters Date Type Department Care Team (Late st Contact Info) Description 10/07/2025 10:30 AM EDT Office Visit [facility] [address] [place] [address] Susan Edward, DESIGN CHECKER [address] [place] [phone] documented as of this encounter Visit Diagnoses Diagnosis Essential (primary) hypertension (CMS/HCC) Unspecified essential hypertension documented in this encounter Additional Health Concerns Assessment Noted Time PHQ-9 Depression Total Score: 0 05/10/20 23 2:06 PM EST documented as of this encounter Care Teams Steamfitter Apprentice Relationship Specialty Start Date End Date Shaikh Gagnon MD PCP - General Internal Medicine 12/01/22 08/22/23 Shaikh Gagnon MD [address] [place] [address] PCP - [employer] 06/06/23 Shaikh Gagnon MD [address] [place] [address] PCP - General Internal Medicine 08/23/23 01/15/24 Rm Rainey MD [address] [place] [address] PCP - General Family Medicine 01/16/24 03/19/24 Unallocated, Jyoti Pink MD [address] [place] [address] PCP - General Family Medicine 03/20/24 04/04/24 Rm Rainey MD [address] [place] [address] PCP - General Family Medicine 04/05/24 Mignon Rodriguez NP [address] [place] [phone] Nurse Practitioner Family Medicine 01/16/24 documented as of this encounter
--- OUTSIDE RECORDS SUMMARY | 2024-11-14 10:32 | XMS_ITS | Encounter Summary ---
Author Organization [facility] Address [address] [place] [address] Care Team Providers Care Executive Pilot Name Role Phone Shaikh EMEKA Gagnon Unavailable [phone] Shaikh EMEKA Gagnon Primary Care Provider [phone] Rm Rainey MD Primary Care Provider Mignon Rodriguez NP Unavailable Unallocated, Noms Provider Primary Care Provi phoebe Rm Rainey MD Primary Care Provider [phone] Encounter Details Date Type Department Care Team (Late st Contact Info) Description 09/23/2023 Orders Only [facility] [address] [place] [address] Shaikh Gagnon MD [address] [facility] [place] [address] Social History Tobacco Use Types Packs/Day [...] week 05/10/2023 How often do you attend [facility] or buddhism services? Never 05/10/2023 Do you belong to any clubs o r organizations such as hindu groups, unions, fraternal or athletic groups, or [...] Recorded Patient Health Questionnaire-2 Score 0 05/10/2023 [facility] [place] of Occupat ional Health - Occupational Stress [...] Visit [facility] [address] [place] [address] Susan Edward NP [address] [place] [address] documented as of this encounter Procedures Procedure Name Priority Date/Time Associated Diagnosis Comments LAB COLOGUARD COLON CANCER SCREEN Routine 09/23/2023 10:24 AM EDT documented in this encounter Results * Cologuard?? colon cancer screening (09/23/2023 10:24 AM EDT) Stool us Shaikh Kalin [facility] ORDER ROHIT Final Result documented in this encounter Visit Diagnoses Not on filedocumented in this encounter Additional Health Concerns Assessment Noted Time PHQ-9 Depression Total Score: 0 05/10/20 23 2:06 PM EST documented as of this encounter Care Teams Executive Pilot Relationship Specialty Start Date End Date Shaikh Gagnon MD [address] [place] [address] PCP - [employer] 06/06/23 Shaikh Gagnon MD [address] [place] [address] PCP - General Internal Medicine 08/23/23 01/15/24 Rm Rainey MD [address] [place] [address] PCP - General Family Medicine 01/16/24 03/19/24 Unallocated, Noms Provider, [address] [place] [address] PCP - General Family Medicine 03/20/24 04/04/24 Rm Rainey MD [address] [place] [address] PCP - General Family Medicine 04/05/24 Mignon Rodriguez NP [address] [place] [address] Nurse Practitioner Family Medicine 01/16/24 documented as of this encounter
--- OUTSIDE RECORDS SUMMARY | 2024-11-14 10:32 | XMS_ITS | Encounter Summary ---
Author Organization [facility] Address [address] [place] [address] Care Team Providers Care Senior Medical Technologist Name Role Phone Shaikh EMEKA Gagnon Unavailable [phone] Shaikh EMEKA Gagnon Primary Care Provider [phone] Rm Rainey MD Primary Care Provider Mignon Rodriguez NP Unavailable [phone] Unallocated, Noms Provider Primary Care Provi phoebe Rm Rainey MD Primary Care Provider Encounter Details Date Type Department Care Team (Late st Contact Info) Description 08/24/2023 Orders Only [facility] [address] [place] [phone] Shaikh Gagnon MD [address] [place] [address] Social History Tobacco Use Types Packs/Day Years [...] week 05/10/2023 How often do you attend [facility] or latter-day services? Never 05/10/2023 Do you belong to any clubs o r organizations such as congregation groups, unions, fraternal or athletic groups, or [...] Recorded Patient Health Questionnaire-2 Score 0 05/10/2023 [facility] [place] of Occupat ional Health - Occupational Stress [...] place to sleep or slept in a senior living (including now)? No 05/10/2023 Sex and Gender [...] Visit [facility] [address] [place] [address] Susan Edward NP [address] [place] [address] documented as of this encounter Procedures Procedure Name Priority Date/Time Associated Diagnosis Comments XR THORACIC SPINE 3 VIEWS Routine 08/23/2023 7:56 AM EDT XR THORACIC SPINE 2 VIEWS Routine 08/23/2023 7:56 AM EDT documented in this encounter Results * XR thoracic spine 2 views (08/23/2023 7:56 AM EDT) Anatomical Region Laterality Modality Spine, T-spine Radiographic Rajani ging Shaikh Kalin [facility] XR PROCEDURES Final Result * XR thoracic spine 3 views (08/23/2023 7:56 AM EDT) Anatomical Region Laterality Modality Spine, T-spine Radiographic Rajani ging Shaikh Kalin [facility] XR PROCEDURES Final Result documented in this encounter Visit Diagnoses Not on filedocumented in this encounter Additional Health Concerns Assessment Noted Time PHQ-9 Depression Total Score: 0 05/10/20 23 2:06 PM EST documented as of this encounter Care Teams Senior Medical Technologist Relationship Specialty Start Date End Date Shaikh Gagnon MD [address] [place] [address] PCP - [employer] 06/06/23 Shaikh Gagnon MD [address] [place] [address] PCP - General Internal Medicine 08/23/23 01/15/24 Rm Rainey MD [address] [place] [address] PCP - General Family Medicine 01/16/24 03/19/24 Unallocated, Jyoti Pink MD [address] [place] [address] PCP - General Family Medicine 03/20/24 04/04/24 Rm Rainey MD [address] [place] [address] PCP - General Family Medicine 04/05/24 Mignon Rodriguez NP [address] [place] [address] Nurse Practitioner Family Medicine 01/16/24 documented as of this encounter
--- OUTSIDE RECORDS SUMMARY | 2024-11-14 10:32 | XMS_ITS | Clinical Summary ---
Author Organization [facility] Address [id number] [address] [place] [address] Care Team Providers Care Dupligraph Operator Name Role Phone No Pcp, No Pcp Primary Care Provider Unavailabl e Social History Tobacco Use Types Packs/Day Years Used Date Smoking Tobacco: Never Assessed Childcare Answer Date Recorded Childcare Unknown 11/15/2018 Employment Answer Date Recorded Employment Unknown 11/15/2018 Sex and Gender Information Value Date Recorded Sex Assigned at Not on file Legal Sex Male 11:34 AM EDT Gender Identity Not on file Sexual Orientation Not on file Plan of Treatment Not on file Medical Devices Not on file Care Teams Dupligraph Operator Relationship Specialty Start Date End Date No Pcp, [place] [address] PCP - General Family Medicine 01/11/17
--- OUTSIDE RECORDS SUMMARY | 2024-11-14 10:32 | XMS_ITS | Encounter Summary ---
Author Organization [facility] Address [address] [place] [address] Care Team Providers Care Professor Of Geography Name Role Phone Shaikh EMEKA Gagnon Unavailable [phone] Mignon Rodriguez NP Unavailable [phone] Rm Rainey MD Primary Care Provider [phone] Encounter Details Date Type Department Care Team (Late st Contact Info) Description 08/01/2024 Orders Only [facility] [address] [place] [phone] Mignon Rodriguez NP Social History Tobacco Use [...] any clubs o r organizations such as confucianist groups, unions, fraternal or athletic groups, or [...] Recorded Patient Health Questionnaire-2 Score 0 11/24/2023 [facility] Answer Date [...] place to sleep or slept in a long-term (including now)? No 05/10/2023 Sex and Gender [...] Office Visit [facility] [address] [place] [address] Susan Edward NP [address] [place] [address] documented as of this encounter Procedures Procedure Name Priority Date/Time Associated Diagnosis Comments SCANNED LABS Routine 08/01/2024 9:03 AM EST documented in this encounter Results * SCANNED LABS (08/01/2024 9:03 AM EST) Mignon Rodriguez PHTHALIC ACID PURIFIER LAB CHG PERFORMABLES Fin al Result documented in this encounter Visit Diagnoses Not on filedocumented in this encounter Additional Health Concerns Assessment Noted Time PHQ-9 Depression Total Score: 0 05/10/20 23 2:06 PM EST documented as of this encounter Care Teams Professor Of Geography Relationship Specialty Start Date End Date Shaikh Gagnon MD [address] [place] [address] PCP - [employer] 06/06/23 Rm Rainey MD [address] [place] [address] PCP - General Family Medicine 04/05/24 Mignon Rodriguez NP [address] [place] [address] Nurse Practitioner Family Medicine 01/16/24 documented as of this encounter
--- OUTSIDE RECORDS SUMMARY | 2024-11-14 10:32 | XMS_ITS | Clinical Summary ---
Author Organization [facility] Address [address] [place], [place] [address] Care Team Providers Care Calculus Professor Name Role Phone Jem Hadley Primary Care Provider Allergies No known active allergies Medications furosemide (LASIX) 20 mg tablet Take 20 mg by mouth twice daily. Active metoprolol tartrate, short acting, 25 mg tablet Take 25 mg by mouth twice daily. Active meloxicam (MOBIC) 7.5 mg tablet Take 7.5 mg by mouth once daily. Active amLODIPine (NORVASC) 5 mg tablet Take 5 mg by mouth once daily. Active Active Problems Problem Noted Date Diagnosed Date Malignant neoplasm of prostate 12/05/2013 Family History Medical History Relation Comments Cancer Father Relation Status Comments Father Social History Tobacco Use Types Packs/Day Years Used Date Smoking Tobacco: Every Day Cigarettes 0.5 40 Alcohol Use Standard Drinks/Week Comments Yes 0 (1 standard drink = 0.6 oz pur e alcohol) Sex and Gender Information Value Date Recorded Sex Assigned at Not on file Legal Sex Male 2:03 PM EST Gender Identity Not on file Sexual Orientation Not on file Plan of Treatment Health Maintenance Due Date Last Done Comments Abdominal Aortic Aneurysm Screening 1955 Anxiety Screening 02/21/1974 Depression Screening 02/21/1974 Hepatitis C Screening 02/21/1974 DTaP,Tdap,Td Vaccine (1 - Tdap) 02/21/1975 Lipid Screening 02/21/1991 CT Colonography 02/21/2001 Cologuard (FIT-DNA) 02/21/2001 Colonoscopy 02/21/2001 Colorectal Cancer Screening 02/21/2001 Diabetes Screening 02/21/2001 Fecal Occult Blood 02/21/2001 Sigmoidoscopy 02/21/2001 Pneumococcal Vaccine: 50+ (1 of 1 - PCV) 02/21/2006 Shingrix Vaccine (1 of 2) 02/21/2006 Prostate Cancer Screening Discussion 08/21/201808/04 Covid-19 Vaccine ( season) 2024 Advance Directive Discussion 06/06/2024 Influenza Vaccine (Season Ended) 2025 RSV Vaccine (1 - 1-dose 75+ series) 02/21/2031 Procedures Procedure Name Priority Date/Time Associated Diagnosis Comments PSA/PROSTSPECAG DIAG Routine 08/21/2013 3:37 PM EDT from Last 3 Months or Most Recently Relevant to Health Maintenance Results * (ABNORMAL) PSA/PROSTSPECAG DIAG (08/21/2013 3:37 PM EDT) PSA 2.75(H) 0.00 - 2.59 ng/mL [facility] Comment: The presence of an abnormal result flag in this range (2.6 to 4.0 ng/mL) should not necessarily be an automatic indicator for prostate biopsy. For an individual patient, the significance of a PSA level should be interpreted in a broad clinical context, including age, race, family history, digital rectal exam, prostate size, results of prior testing (prostate biopsy, free PSA, PCA3), and use of 5-alpha reductase inhibitors. Considering the high incidence of asymptomatic cancer in the general population that may not pose an ultimate risk to a patient, the decision to recommend urological evaluation or prostate biopsy should be individualized after consideration of all these factors. REFERENCE: Yinka Whitehead M.D., M.P.H., Macho Nash M.D., Ph.D., Marco Daigle M.D., Anabel Enriquez M.P.H., Ivory Soni, ScJair. Effect of Verification Bias on Screening for Prostate Cancer by Measurement of Prostatic Specific Antigen. N Engl J Med 2003,349:335-42. 08/21/2013 3:37 PM EDT 08/21/2013 3:39 PM EDT us G Nacho Rodriguez MD LABORATORY Final Resul t [facility] [address] [place] [address] from Last 3 Months or Most Recently Relevant to Health Maintenance Care Teams Calculus Professor Relationship Specialty Start Date End Date DonaldursulaJem [address] [place] [phone] PCP - General Family Medicine 08/21/13
--- OUTSIDE RECORDS SUMMARY | 2024-11-14 10:32 | XMS_ITS | Encounter Summary ---
Author Organization [facility] Address [address] [place] [address] Care Team Providers Care Fashion Intern Name Role Phone Shaikh EMEKA Gagnon Unavailable [phone] Shaikh EMEKA Gagnon Primary Care Provider Rm Rainey MD Primary Care Provider Migonn Rodriguez NP Unavailable [phone] Unallocated, Noms Provider Primary Care Provi phoebe Rm Rainey MD Primary Care Provider [phone] Encounter Details Date Type Department Care Team (Late st Contact Info) Description 09/07/2023 Orders Only [facility] [address] [place] [phone] Jensen Geiger MD [address] [place], [place] [phone] Social History Tobacco Use Types Packs/Day Years [...] week 05/10/2023 How often do you attend [facility] or advent services? Never 05/10/2023 Do you belong to any clubs o r organizations such as judaism groups, unions, fraternal or athletic groups, or [...] Recorded Patient Health Questionnaire-2 Score 0 05/10/2023 [facility] [place] of Occupat ional Health - Occupational Stress [...] place to sleep or slept in a snf (including now)? No 05/10/2023 Sex and Gender [...] Visit [facility] [address] [place] [address] Susan Edward NP [address] [place] [address] documented as of this encounter Procedures Procedure Name Priority Date/Time Associated Diagnosis Comments XR CHEST 1 VIEW Routine 09/07/2023 7:06 AM EDT documented in this encounter Results * XR chest 1 view (09/07/2023 7:06 AM EDT) Anatomical Region Laterality Modality Chest Radiographic Rajani ging us Jensen Geiger MD IMG XR PROCEDURES Final Resul t documented in this encounter Visit Diagnoses Not on filedocumented in this encounter Additional Health Concerns Assessment Noted Time PHQ-9 Depression Total Score: 0 05/10/20 23 2:06 PM EST documented as of this encounter Care Teams Fashion Intern Relationship Specialty Start Date End Date Shaikh Gagnon MD [address] [place] [address] PCP - [employer] 06/06/23 Shaikh Gagnon MD [address] [place] [address] PCP - General Internal Medicine 08/23/23 01/15/24 Rm Rainey MD [address] [place] [address] PCP - General Family Medicine 01/16/24 03/19/24 Unallocated, Noms Provider, [address] [place] [address] PCP - General Family Medicine 03/20/24 04/04/24 Rm Rainey MD [address] [place] [address] PCP - General Family Medicine 04/05/24 Mignon Rodriguez NP [address] [place] [address] Nurse Practitioner Family Medicine 01/16/24 documented as of this encounter
[2024-11-14 12:28] LABS: Prostate Specific Antigen Dx 0.23 ng/mL (<=4.00)
== END 2024-11-14 10:21 | disposition home or self-care (01) ==
PROVIDERS: PCP Nurse Practitioner; Visit Provider Urology
DX: R97.21 Rising PSA following treatment for malignant neoplasm of prostate (principal)
CPT/HCPCS: 36415; 84153

== ENCOUNTER 2024-12-25 17:02 | Outpatient (OUT) | payer MEDICARE, SELFPAY ==
--- NOTE | 2024-12-25 17:23 | XR_ITS ---
The [address] [address] Patient Name: ABBEY IRVING MRN: [id number] date: 1955 Sex: M Assigned Patient Location: [facility] Current Patient Location: [facility] Accession/Order Number: [id number] Exam Date: 12/25/2024 17:45 Report Date: 12/25/2024 17:47 At the request of: RAKAN MORENO NP Procedure: XR chest 2V Plain film chest 2 view HISTORY: Cough and shortness of breath for one week. COMPARISON: CT chest 10/12/2024 FINDINGS: SUPPORT DEVICES: None POSTSURGICAL CHANGES: None HEART: Within normal limits PULMONARY JAKE: Within normal limits MEDIASTINUM: Unremarkable LUNGS AND PLEURA: No acute lung process, pleural effusion or pneumothorax identified. Hyperinflation BONY STRUCTURES: Thoracic hyperostosis/spondylosis ADDITIONAL FINDINGS None XR/XR chest 2V IMPRESSION: No acute process. Impression dictated by: Jensne Louis M.D. 12/25/2024 5:47 PM Dictation Location: [employer] Electronically authenticated by: [id number] Y Date: 12/25/2024 17:47
== END 2024-12-25 17:03 | disposition home or self-care (01) ==
PROVIDERS: PCP Nurse Practitioner; Visit Provider Nurse Practitioner
DX: R05.9 Cough, unspecified (principal); R06.09 Other forms of dyspnea; R53.81 Other malaise
CPT/HCPCS: 71046

== ENCOUNTER 2024-12-26 12:09 | Outpatient (OUT) | payer MEDICARE, SELFPAY ==
--- OUTSIDE RECORDS SUMMARY | 2024-12-26 12:35 | XMS_ITS | CCD ---
Author Organization [facility] Care Team Providers Care Integrity Assessor Name Role Phone Jose Victoria Unavailable DR [...] Admitting Unavailable SAMSA ., RUKHSANA Attending Unavailable ZIEBAMY, DR LUCAS Miller Consulting Unavailable FAWWAD, PATEL [...] Primary Care Provider Jennifer LUCERO, Nicolle Unavailable [phone] Unallocated MD, Noms Provider Primary Care Provi phoebe Rm Rainey MD Primary Care Provider Will HOLLINS Attending Unavailable SHAIKH GAGNON Primary Care Unavailable Will HOLLINS Attending Unavailable Will HOLLINS Attending Unavailable Will HOLLINS Attending Unavailable OrzechMaribel X Attending Unavailable OrzechMaribel X Attending Unavailable Will HOLLINS Attending Unavailable Rodriguez ELECTRIC MELT OPERATOR, Nicolle Unavailable SUSAN EDWARD Attending Unavailable SHAIKH GAGNON Attending Unavailable JENNIFER, NICOLLE Attending Unavailabl e RODRIGUEZ, NICOLLE Attending Unavailabl e RODRIGUEZ, NICOLLE Attending Unavailabl e RODRIGUEZ, NICOLLE Attending Unavailabl e Allergies Allergy Classification Reported Allergen(s) Allergy Type Date of Onset Reaction(s) Facility (1 source) No Known Medication Allergies; Translations: [No Known Medication Allergies] Propensity to adverse reactions (disorder) [facility] Repository Medications Current Medications Medication Drug Class(es) Dates Sig (Normalized) Sig (Original) [id number] 200 actuat albuterol 0.09 mg/actuat metered dose inhaler (20 sources) beta2-Adrenergic Agonist Start: 06-20-2024 End: 01-01-2025 albuterol HFA 90 mcg/act inhaler Indications: Centrilobular emphysema (HCC) Inhale 2 puffs in the morning and 2 puffs at noon and 2 puffs in the evening and 2 puffs before bedtime. 54 g 1 10/03/2024 01/01/2025 Active Start: 10-13-2023 take 1 puff(s) by in [...] tablet (20 sources) Xanthine Oxidase Inhibitor Start: 03-22-2022 End: 09-18-2024 allopurinol 100 mg Tab 100 mg = 1 tab(s) Start Date: 01/17/24 Status: Ordered amLODIPine 5 mg oral tablet (6 sources) Dihydropyridine Calcium Channel Ellis Start: 10-13-2023 take 5 mg by mouth once daily Amlodipine Active 5 MG PO Daily October 13, 2023 12:00am take 1 tablet by martinez th every twenty-four hours amLODIPine Besylate 5 MG 1 tablet Orally Once a day Active amoxicillin 875 mg / clavulanate 125 mg oral tablet (3 sources) Penicillin-class Antibacterial Start: 12-25-2024 End: 01-04-2025 take 1 tablet by mouth in the morning amoxicillin-clavulanate (Augmentin) 875-125 MG tablet Indications: Acute non-recurrent maxillary sinusitis Take 1 tablet (875 mg) by mouth in the morning and 1 tablet (875 mg) before bedtime. Do all this for 10 days. Take with food. 20 tablet 12/25/2024 01/04/2025 Active ascorbic acid 113 mg / copper gluconate 0.4 mg / docosahexaenoic acid 87.5 mg / eicosapentaenoic acid 163 mg / lutein 2.5 mg / tocopherol acetate 100 unt / zeaxanthin 0.5 mg / zinc oxide 17.4 mg oral capsule (20 sources) Vitamin C Start: 06-24-2023 take 2 capsules by mouth once daily Multiple Vitamins-Minerals (PreserVision AREDS 2) capsule Take 2 capsules by mouth Daily 06/24/2023 Active atorvastatin 40 mg oral tablet (20 sources) HMG-CoA Reductase Inhibitor Start: 11-01-2019 End: 01-01-2025 take 1 tablet by mouth at bedtime atorvastatin (Lipitor) 40 MG tablet Indications: Hyperlipidemia, unspecified Take 1 tablet (40 mg) by mouth at bedtime 90 tablet 1 10/03/2024 01/01/2025 Active baclofen 5 mg oral tablet (4 sources) gamma-Aminobutyric Acid-ergic Agonist take 1 tablet by mouth once daily baclofen (Lioresal) 5 MG tablet Take 5 mg by mouth 1 (one) time each day at the same time Active 60 actuat budesonide 0.16 mg/actuat / formoterol fumarate 0.0045 mg/actuat metered dose inhaler (20 sources) Corticosteroid, beta2-Adrenergic Agonist Start: 10-03-2024 End: 01-01-2025 take 2 puff(s) by inhalation in the morning budesonide-formoterol (Symbicort) 160-4.5 MCG/ACT inhaler Indications: Centrilobular emphysema (HCC) Inhale 2 puffs in the morning and 2 puffs before bedtime. Rinse mouth with water after use to reduce aftertaste and incidence of candidiasis. Do not swallow. 30.6 g 1 10/03/2024 01/01/2025 Active Start: 05-22-2024 End: 10-03-2024 take 2 puff(s) by mouth once daily budesonide-formoterol (Symbicort) 160-4.5 MCG/ACT inhaler Indications: Centrilobular emphysema (CMS/HCC) Inhale 2 puffs Daily Rinse mouth with water after use to reduce aftertaste and incidence of candidiasis. Do not swallow. 30.6 g 2 07/10/2024 10/03/2024 Discontinued (Reorder) Start: 12-20-2023 End: 05-22-2024 take [...] 180 tablet 11/24/2023 03/19/2024 Discontinued (Therapy completed) cholecalciferol 0.05 mg oral capsule (4 sources) Vitamin D take 1 capsule by mouth once daily cholecalciferol (Vitamin D-3) 50 MCG (2000 UT) capsule Take 2,000 Units by mouth Daily Active doxycycline monohydrate 100 mg oral tablet (2 [...] tip and replace cap. 48 g 1 10/03/2024 01/01/2025 Active Start: 11-24-2023 End: 04-23-2024 take 2 [...] (20 sources) Loop Diuretic Start: 11-01-2019 End: 01-01-2025 take 1 tablet by mouth once daily furosemide (Lasix) 20 MG tablet Indications: Chronic right heart failure (HCC) Take 1 tablet (20 mg) by mouth Daily 90 tablet 1 10/03/2024 01/01/2025 Active 200 actuat ipratropium bromide 0.017 mg/actuat metered dose inhaler (20 sources) Anticholinergic Start: 05-22-2024 End: 10-03-2024 take 2 puff(s) by inhalation in the morning ipratropium (Atrovent HFA) 17 MCG/ACT inhaler Indications: Centrilobular emphysema (CMS/HCC) Inhale 2 puffs in the morning and 2 puffs before bedtime. 12.9 g 2 05/22/2024 10/03/2024 Discontinued (Therapy completed) Start: 11-01-2019 Atrovent HFA I nhalation, QID, [...] Angiotensin 2 Receptor Ellis Start: 08-21-2021 End: 01-01-2025 take 1 tablet by mouth once daily losartan (Cozaar) 50 MG tablet Indications: Essential (primary) hypertension Take 1 tablet (50 mg) by mouth Daily 90 tablet 1 10/03/2024 01/01/2025 Active metoprolol tartrate 25 mg oral tablet (20 sources) beta-Adrenergic Ellis Start: 12-29-2023 End: 01-01-2025 take 1 tablet by mouth in the morning metoprolol tartrate (Lopressor) 25 MG tablet Indications: Essential (primary) hypertension Take 1 tablet (25 mg) by mouth in the morning and 1 tablet (25 mg) before bedtime. 180 tablet 1 10/03/2024 01/01/2025 Active Start: 10-13-2023 take 25 mg by [...] 0.4mg 1 Sublingual Every 5min x3 Active nitroglycerin 0.4 mg sublingual tablet (4 sources) Nitrate Vasodilator nitroglyceri n (Nitrostat) 0.[address] 0.4 mg under the tongue every 5 (five) minutes if needed for chest pain Active omeprazole 40 mg delayed release oral capsule (20 sources) Proton Pump Inhibitor Start: 12-29-19 End: 04-01-20 take 1 capsule by mouth once daily omeprazole (PriLOSEC) [address] capsule Indications: Gastroesophageal reflux disease with esophagitis without hemorrhage Take 1 capsule (40 mg) by mouth Daily 90 capsule 1 10/03/2024 04/01/2025 Active predniSONE 20 mg oral tablet (2 sources) Start: 04-23-20 End: 04-28-20 24 take 2 tablets by mouth once daily predniSONE (Deltasone) 20 MG tablet Indications: Bronchitis Take 2 tablets (40 mg) by mouth Daily for 5 days 10 tablet 04/23/2024 04/28/2024 Active tamsulosin hydrochloride 0.4 mg oral capsule (20 sources) alpha-Adrenergic Ellis Start: 10-04-19 End: 01-02-20 take 1 capsule by mouth every twenty-four hours at bedtime tamsulosin (Flomax) 0.4 MG 24 hr capsule Indications: Malignant (primary) neoplasm, unspecified (HCC) Take 1 capsule (0.4 mg) by mouth at bedtime 90 capsule 1 10/03/2024 01/01/2025 Active Start: 12-20-2023 End: 01-11-2025 take 1 capsule by mouth once daily tamsulosin (Flomax) 0.4 MG 24 hr capsule Indications: Malignant (primary) neoplasm, unspecified (CMS/HCC) Take 1 capsule (0.4 mg) by mouth Daily 90 capsule 2 07/10/2024 10/03/2024 Discontinued (Reorder) Start: 11-01-2019 take 0.4 mg by mouth [...] Translations: [Emphysema, unspecified] Onset: 3 05-10-2023 Chronic Congestive heart failure; nonhypertensive (6 sources) Chronic right-sided heart failure; Translations: [Chronic right heart failure] 05-22-2024 Chronic Deficiency and other anemia (1 source) Anemia in chronic kidney disease; Translations: [Anemia in chronic kidney disease] Chronic Deficiency and other anemia (1 source) Anemia in chronic kidney disease Chronic Disorders of lipid metabolism (20 sources) Hyperlipidemia, unspecified; Translations: [Dyslipidemia] Onset: 3 Resolved: 5 Chronic Esophageal disorders (6 sources) Gastro-esophageal reflux disease with esophagitis; Translations: [...] Chronic Malignant neoplasm without specification of site (7 sources) Primary malignant neoplasm; Translations: [Malignant (primary) neoplasm, unspecified] 05-22-2024 Chronic Other diseases of kidney and ureters (6 sources) Secondary hyperparathyroidism; Translations: [Secondary hyperparathyroidism of renal origin] 10-13-2023 Chronic Other diseases of kidney and ureters (5 sources) Secondary hyperparathyroidism of renal origin; Translations: [Secondary hyperparathyroidism (of renal origin)] Onset: 2 Resolved: 2 Chronic Other diseases of kidney and ureters (20 sources) Hyperparathyroidism due to renal insufficiency; Translations: [Secondary hyperparathyroidism of renal origin] Onset: 4 04-23-2024 Chronic Other gastrointestinal disorders (5 sources) Diarrhea; Translations: [Diarrhea, unspecified] Onset: 5 12-25-2024 Episodic Other lower respiratory disease (4 sources) [...] disease] 10-13-2023 Episodic Other upper respiratory infections (20 sources) Chronic sinusitis, unspecified; Translations: [Unspecified sinusitis (chronic)] Onset: 4 11-24-2023 Chronic Other upper respiratory infections (20 sources) Acute upper respiratory infection; Translations: [Acute upper respiratory infection, unspecified] Onset: 3 Resolved: 5 05-10-2023 Episodic Residual codes; unclassified (16 sources) Obstructive sleep apnea syndrome; Translations: [Obstructive [...] W/AND (SUSP) EXPOS COVID-19] Onset: 2 Unclassified (4 sources) Drug therapy finding 11-01-2019 Past or Other Problems Problem Classification Problem Date Documented Da te Episodic/Chronic Abdominal pain (4 sources) Unspecified abdominal pain; Translations: [UNSPECIFIED ABDOMINAL PAIN] Onset: 01-01-2022 Episodic Cancer of prostate (20 sources) Personal history of malignant neoplasm of prostate; Translations: [History of malignant neoplasm of prostate] Onset: 10-11-2022 Episodic Chronic kidney disease (8 sources) Chronic kidney disease; Translations: [Chronic kidney disease, stage III (moderate)] Onset: 06-18-2021 Resolved: 06-18-2021 Chronic obstructive pulmonary disease and bronchiectasis (20 sources) Bronchitis; Translations: [Bronchitis, not specified as acute or chronic] Onset: 04-23-2024 04-23-2024 Episodic E Codes: Fall (18 sources) Fall; Translations: [Unspecified fall, subsequent encounter] Onset: 05-22-2024 Resolved: 10-03-2024 05-22-2024 Episodic E Codes: Unspecified (1 source) Blood alcohol level of 240 mg/100 ml or more; Translations: [BLOOD ALCOHOL LV 240 MG/100 ML/MORE] Onset: 04-12-2022 Episodic Gastrointestinal hemorrhage (20 sources) Hematemesis; Translations: [Hematemesis] Onset: 08-23-2023 Resolved: 09-28-2023 09-28-2023 Episodic Malaise and fatigue (1 source) Weakness; Translations: [WEAKNESS] Onset: 04-12-2022 Episodic Mood disorders (20 sources) Mood disorders Onset: 05-10-2023 Resolved: 10-03-2024 05-10-2023 Other aftercare (1 source) Other correction (current) drug therapy; Translations: [OTH [facility] CURRENT DRUG THERAPY] Onset: 04-12-2022 Episodic Other aftercare (20 sources) Post-discharge follow-up; Translations: [Encounter for follow-up examination after completed treatment for conditions other than malignant neoplasm] Onset: 08-23-2023 Resolved: 10-03-2024 08-23-2023 Episodic Other connective tissue disease (1 source) Pain in left leg; Translations: [PAIN IN LEFT LEG] Onset: 01-04-2022 Episodic Other fractures (18 sources) Fracture of third cervical vertebra; Translations: [Other displaced fracture of third cervical vertebra, subsequent encounter for fracture with routine healing] Onset: 05-22-2024 05-22-2024 Episodic Other injuries and conditions due to external causes (20 sources) Injury of right ankle; Translations: [Unspecified injury of right ankle, initial encounter] Onset: 03-19-2024 Resolved: 10-03-2024 03-19-2024 Episodic Other nervous system disorders (1 source) Slurred speech; Translations: [SLURRED SPEECH] Onset: 04-12-2022 Episodic Other non-traumatic joint disorders (20 sources) Chronic pain of right upper limb; Translations: [Pain in right shoulder] Onset: 09-28-2023 09-28-2023 Episodic Other non-traumatic joint disorders (20 sources) Hip pain; Translations: [Pain in left [...] Spondylosis; intervertebral disc disorders; other back problems (20 sources) Chronic thoracic back pain; Translations: [Pain in thoracic spine] Onset: 08-23-2023 08-23-2023 Episodic Results Test Name Value Interpretation Reference Range Facility XR CHEST 2Von 12-25-[address] [address] XRay Report Signed Patient: MARCO MUSTAFA MR#: [id number] : 1955 Acct:[id number] Age/Sex: 69 / M ADM Date: 12/25/24 Loc: RAD Attending Dr: Susan Edward NP Ordering Physician: Susan Edward NP Date of Service: 12/25/24 Procedure(s): XR chest 2V Accession Number(s): [id number] cc: Susan Edward NP [place] [address] Patient Name: MARCO MUSTAFA MRN: [id number] date: 1955 Sex: M Assigned Patient Location: [facility] Current Patient Location: [facility] Accession/Order Number: [id number] Exam Date: 12/25/2024 17:45 Report Date: 12/25/2024 17:47 At the request of: SUSAN EDWARD NP Procedure: XR chest 2V Plain film chest 2 view HISTORY: Cough and shortness of breath for one week. COMPARISON: CT chest 10/12/2024 FINDINGS: SUPPORT DEVICES: None POSTSURGICAL CHANGES: None HEART: Within normal limits PULMONARY JAKE: Within normal limits MEDIASTINUM: Unremarkable LUNGS AND PLEURA: No acute lung process, pleural effusion or pneumothorax identified. Hyperinflation BONY STRUCTURES: Thoracic hyperostosis/spondyl osis ADDITIONAL FINDINGS None XR/XR chest 2V IMPRESSION: No acute process. Impression dictated by: Jensen Louis M.D. 12/25/2024 5:47 PM Dictation Location: [place] [address] Electronically authenticated by: [id number] Y Date: 12/25/2024 17:47 Dictated By: Jensen Louis D.O. Signed By: 12/25/241749 DD/ 46 TD/TT: Small Appliance Assembly Supervisor: [facility] Radiology, Radiologist, MD - 12/25/[address] [address] XRay Report Signed Patient: MARCO MUSTAFA MR#: [id number] : 1955 Acct:[id number] Age/Sex: 69 / M ADM Date: 12/25/24 Loc: RAD Attending Dr: Susan Edward ELECTRIC MELT OPERATOR Ordering Physician: Susan Edward NP Date of Service: 12/25/24 Procedure(s): XR chest 2V Accession Number(s): [id number] cc: Susan Edward NP [place] [id number] Patient Name: MARCO MUSTAFA MRN: [facility]:[id number] date: 1955 Sex: M Assigned Patient Location: [facility] Current Patient Location: [facility] Accession/Order Number: [id number] Exam Date: 12/25/2024 17:45 Report Date: 12/25/2024 17:47 At the request of: SUSAN EDWARD NP Procedure: XR chest 2V Plain film chest 2 view HISTORY: Cough and shortness of breath for one week. COMPARISON: CT chest 10/12/2024 FINDINGS: SUPPORT DEVICES: None POSTSURGICAL CHANGES: None HEART: Within normal limits PULMONARY JAKE: Within normal limits MEDIASTINUM: Unremarkable LUNGS AND PLEURA: No acute lung process, pleural effusion or pneumothorax identified. Hyperinflation BONY STRUCTURES: Thoracic hyperostosis/spondyl osis ADDITIONAL FINDINGS None XR/XR chest 2V IMPRESSION: No acute process. Impression dictated by: Jensen Louis M.D. 12/25/2024 5:47 PM Dictation Location: [place] [address] Electronically authenticated by: [id number] Y Date: 12/25/2024 17:47 Dictated By: Jensen Louis D.O. Signed By: 12/25/241749 DD/ 46 TD/TT: Small [employer] Supervisor: [facility] Radiology Study observation (narrative) [facility] XR CHEST 2VOrdered By: Radio logist Radiology on 12-25-2024 [employer] Work Phone: MHPT PSA, DIAGNOSTICon 11-14 PROSTATE SPECIFIC ANTIGEN DX 0.23 ng/mL NINF - 4.00 ng/mL [facility] CT CHEST WO CONon 10-12-[address] [address] [address] Scan Report Signed Patient: MARCO MUSTAFA MR#: [id number] : 1955 Acct:[id number] Age/Sex: 69 / M ADM Date: 10/12/24 Loc: CT Attending Dr: Rukhsana Aguilar D.O. Ordering Physician: Rukhsana Aguilar D.O. Date of Service: 10/12/24 Procedure(s): CT chest wo con Accession Number(s): [id number] cc: Susan Edward NP [address] [address] Patient Name: MARCO MUSTAFA MRN: [id number] date: 1955 Sex: M Assigned Patient Location: CT Current Patient Location: CT Accession/Order Number: [id number] Exam Date: 10/12/2024 14:40 Report Date: 10/12/2024 [...] Jr., D.O. 10/12/2024 2:43 PM Dictation Location: [place] [address] Electronically authenticated by: [id number] Y Date: 10/12/2024 14:43 Dictated By: Horace Lantigua M.D. Signed By: 10/12/24 1445 DD/ 1443 TD/TT: [employer] Supervisor: [facility] Radiology, Radiologist, MD - 10/12/2024 [place] [address] CT Scan Report Signed Patient: MARCO MUSTAFA MR#: [id number] : 1955 Acct:[id number] Age/Sex: 69 / M ADM Date: 10/12/24 Loc: CT Attending Dr: Rukhsana Aguilar D.O. Ordering Physician: Rukhsana Aguilar D.O. Date of Service: 10/12/24 Procedure(s): CT chest wo con Accession Number(s): [id number] cc: Susan Edward NP The [place] [address] Patient Name: MARCO MUSTAFA MRN: [facility]:[id number] date: 1955 Sex: M Assigned Patient Location: CT Current Patient Location: CT Accession/Order Number: [id number] Exam Date: 10/12/2024 14:40 Report Date: 10/12/2024 [...] 12 months. Impression dictated by: Horace Lantigua Jr. D.Carline 10/12/2024 2:43 PM Dictation Location: [place] [address] Electronically authenticated by: [id number] Y Date: 10/12/2024 14:43 Dictated By: Horace Lantigua M.D. Signed By: 10/12/24 1445 DD/ 1443 TD/TT: [employer] Supervisor: [facility] Radiology Study observation (narrative) [facility] CT CHEST WO CONOrdered By: Paul adiologfer Radiology on 10-12-2024 [employer] Work Phone: Ambulatory Visit Summaryon 0 08-14-2024 Ambulatory Visit Summary Ambulatory Visit Summary MARCO MUSTAFA :1955 Visit Date:08/14/2024 Ambulatory Visit Instructions Your Diagnosis Rising PSA following treatment for malignant neoplasm of prostate BPH with obstruction/lower urinary tract symptoms Personal history of prostate cancer Personal history of renal cell carcinoma Your Care Team Attending Physician - AME Henry APRN, Maribel Guillaume Primary Care Physician - SHAIKH GAGNON MD This Is Your Medications List Contact prescribing physician if questions or concerns allopurinol (allopurinol 100 mg Tab) atorvastatin cholecalciferol (Vitamin D3) doxycycline (doxycycline hyclate 100 mg Tab) furosemide (furosemide 20 mg Tab) ipratropium (Atrovent HFA) losartan (losartan 50 mg Tab) metoprolol (metoprolol 25 mg ER Tab) omeprazole (omeprazole 40 mg Cap-DR) tamsulosin (tamsulosin 0.4 mg Cap) Procedures Performed Brachytherapy (03/24/2011), Left nephrectomy (06/06/2000), Cataract, Extraction of wisdom tooth, History of hernia repair. Discharge Vitals Temperature (Temporal Artery) 36.1 ???C Heart Rate (Peripheral) 82 Blood Pressure 134/74 Height 70 in Height 177 cm Weight 229.501 lb Weight 104.1 kg BMI 33.23 What to do next You Need to Schedule the Following Appointments Follow Up with Elaine NOGUERA, AME, Maribel X, FAM, URL When: Where: Medications What How Much When Instructions Unchanged allopurinol (allopurinol 100 mg Tab) 1 Tablets Contact prescribing physician if questions or concerns Unchanged atorvastatin 40 Milligram By Mouth Every day Contact prescribing physician if questions or concerns Unchanged cholecalciferol (Vitamin D3) Contact prescribing physician if questions or concerns Unchanged doxycycline (doxycycline hyclate 100 mg Tab) 1 Tablets By Mouth 2 times a day Contact prescribing physician if [...] prescribing physician if questions or concerns Unchanged tamsulosin (tamsulosin 0.4 mg Cap) 1 Capsules By Mouth Every day Duration: 90 Days Contact prescribing physician if questions or concerns Allergies No Known Medication Allergies Problems Ongoing - Any problem that you are currently receiving treatment for. Anticoagulated BPH with obstruction/lower urinary tract symptoms History of UTI Hypertension Personal history of prostate cancer Personal history of renal cell carcinoma Rising PSA following treatment for malignant neoplasm of prostate Smoker Historical - Any problem that you are [...] choosing us for your care. Education Materials Prostate Cancer The prostate is a small [...] more likely to develop this condition if: ??? You are 65 years of age or older. ??? You have a family history of prostate cancer. ??? You have a family history of breast and ovarian cancer. ??? You have genes that are passed from parent to child (inherited), such as BRCA1 and BRCA2. ??? You have Ayon syndrome. men and men of descent are diagnosed with prostate cancer at higher rates than other men. The reasons for this are not well understood and are likely due to a combination of genetic and environmental factors. What are the signs or symptoms? Symptoms of this condition include: ??? Problems with urination. This may include: ? A weak or interrupted flow of urine. ? Trouble starting or stopping urination. ? Trouble emptying the bladder all the way. ? The need to urinate more often, especially at night. ??? Blood in urine or semen. ??? Persistent pain or discomfort in the lower back, lower abdomen, or hips. ??? Trouble getting an erection. ??? Weakness or numbness in the legs or feet. How is this diagn (more content not included)... Normal [facility] Urology Office/Clinic Noteon 08-14-2024 Urology Office/Clinic Note Urology Office/Clinic Note Chief Complaint 4MO F/U w/PSA HPI Staff 69 year old male presents for 4 mo f/u with PSA. prev dx: rising psa, hx prostate cancer, BPH, renal cell carcinoma prev psa: 10/11/22- <0.13, 09/30/23- 0.90, 12/22/23- 0.23 Current PSA: 0.80 Pt denies any urinary complaints today. pt states still experiences urgency and frequency depending on how much intake. pt states still taking flomax as prescribed 0.4 mg qd. History of Present Illness Tests reviewed: UA & PSA I have reviewed the previous health [...] See HPI. Physical Exam Vitals & Measurements T: 36.1 ???C(Temporal Artery) HR: 82(Peripheral) BP: 134/74 HT: 70 in HT: 177 cm WT: 104.1 kg WT: 229.501 lb BMI: 33.23 General Appearance: alert, no distress, well nourished, well developed male. Assessment/Plan Marco 69 year old male presents for 4 mo f/u with PSA. 1. Rising PSA following treatment for malignant neoplasm of prostate (R97.21: Rising PSA following treatment for malignant neoplasm of prostate) PSA: 10/26/19 - 0.05 08/10/21 - 0.05 10/11/22 - <0.13 09/30/23 - 0.90 12/22/23 - 0.23 04/18/24 - 0.80 Pt believes he had a Holliday 7. Completed at [facility]. [1] S/p brachytherapy 03/24/11. Reviewed PSA today. PSA has increased. Generally when there is prostate ca recurrence, the PSA will cont to rise. Discussed possibility of recurrence if PSA does cont to rise vs cont close f/u if it goes back down. Today we ordered a PSA, will call patient with the results of the level. -PSA ordered ([facility]) Follow up PENDING PSA or sooner if needed. Pt understands and agrees with plan. 2. BPH with obstruction/lower urinary tract symptoms (N40.1: Benign prostatic hyperplasia with lower urinary tract symptoms) UA today negative for blood and infection. IPSS 14 (10). Taking Flomax 0.4 mg qd. No bothersome SEs with medication. Denies any urinary complaints at this time. Will call when he needs refill. does not wish to make any changes at this time 3. Personal history of prostate cancer (Z85.46: Personal history of malignant neoplasm of prostate) Pt believes he had a Primitivo 7. Completed at [facility]. [1] S/p brachytherapy 03/24/11. See #1. 4. Personal history of renal cell carcinoma (Z85.528: Personal history of other malignant neoplasm of kidney) S/p L nephrectomy 2000. CT AP w IV con 08/12/23 [external provider ordered] status post left nephrectomy. No evidence of lymphadenopathy. There is a tiny hypodensity in the posterior right kidney likely representing a tiny cyst. Follow-up With When Contact Information AME Henry APRN, Maribel Guillaume, FAM, URL Additional Instructions: Follow up PENDING PSA or sooner if needed Patient Education Prostate Cancer I, Matthew Thompson, personally scribed for AME Levine APRN on 08/14/2024 08:33:51. . Documentation recorded by the tony Thompson accurately reflects the services(s) I performed and decisions made by me. Authenticated by Maribel Henry APRN, FNP-C on 08/14/2024 08:36:30. 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 Medications allopurinol 100 mg Tab, 100 mg= 1 tab(s) atorvastatin, 40 mg, Oral, Daily Atrovent HFA, Inhalation, QID doxycycline hyclate 100 mg Tab, 100 mg= 1 tab(s), Oral, BID furosemide 20 mg Tab, Oral, Daily losartan 50 mg Tab, 50 mg= 1 tab(s), Oral, Daily metoprolol 25 mg ER Tab, 25 mg= 1 tab(s), Oral, Daily omeprazole 40 mg Cap-DR, 40 mg= 1 cap(s) tamsulosin 0.4 mg Cap, 0.4 mg= 1 cap(s), Oral, Daily, 3 refills Vitamin D3 Allergies No Known Medication Allergies Social History Tobacco 5-9 cigarettes (between 1/4 to 1/2 pack)/day in last 30 days, Smoker, current stat (more content not included)... Normal [facility] Comment on above: Result Comment: Elec tronically Signed By: AME Henry APRN, [place] X\.br\Date and Time Signed: 08/14/24 08:36 EDT\.br\Electronically Co-Signed By: Matthew Thompson\.br\Date and Time Co-Signed: 08/14/24 08:34 EDT ALL CBC WITH AUTO DIFFon BASOPHILS ABSOLUTE AUTO 0.1 [facility] Basophils/100 WBC (Bld) 0.6 % 0.2 - 2.0 % [facility] Eosinophils/100 WBC (Bld) 2.9 % 0.9 - 7.0 % [facility] Erythrocyte distribution width (RBC) [Ratio] 12.6 % 11.0 - 15.0 % [facility] Hematocrit (Bld) [Volume fraction] 41.2 % Low 42.0 - 54.0 % [facility] Hemoglobin (Bld) [Mass/Vol] 13.8 g/dL Low 14.0 - 18.0 g/dL [facility] IMMATURE GRANULOCYTES ABS AUTO 0.02 [facility] Immature granulocytes/100 WBC (Bld) 0.2 % 0.0 - 0.5 % [facility] Interpretation and review of laboratory results Abnormal [facility] LYMPHOCYTES ABSOLUTE AUTO 2.5 [facility] Lymphocytes/100 WBC (Bld) 28.4 % 20.5 - 60.0 % [facility] MCH (RBC) [Entitic mass] 32.4 pg 25.9 - 34.0 pg [facility] MCHC (RBC) [Mass/Vol] 33.5 g/dL 29.9 - 35.2 g/dL [facility] MCV (RBC) [Entitic vol] 96.7 fL High 80.0 - 94.0 fL [facility] MONOCYTES ABSOLUTE AUTO 0.6 [facility] Monocytes/100 WBC (Bld) 7 % 1.7 - 12.0 % [facility] NEUTROPHILS ABSOLUTE AUTO 5.3 [facility] Neutrophils/100 WBC (Bld) 60.9 % 43.0 - 75.0 % [facility] Platelet mean volume (Bld) [Entitic vol] 10.5 fL 9.5 - 13.5 fL [facility] EO # 0.3 [facility] TB PLT 206 [facility] TB RBC 4.26 Low [facility] TB WBC 8.7 [facility] MHPT PSA, DIAGNOSTICon 04-18 PROSTATE SPECIFIC ANTIGEN DX 0.8 ng/mL NINF - 4.00 ng/mL [facility] No Panel Informationon 03-19 [facility] SARS-COV-2 AG*on 03-19-2024 SARS-CoV-2 (COVID-19) RNA PAUL+probe Ql (Unsp spec) Negative NEGATIVE [facility] Comment on above: This test has not [...] is terminated or authorization is revoked sooner. [facility] INFLUENZA A AND B AGon 1 INFLUENZA VIRUS A ANTIGEN Negative [facility] Comment on above: Negative for Flu A p rotein antigen. Infection due to Flu A cannot be ruled out. Flu A antigen in the sample may be below the detection limit of the test. INFLUENZA VIRUS B ANTIGEN Negative [facility] Comment on above: Negative for Flu B [...] Will HOLLINS MD Where: [facility] [address] [place] [address] [facility] [place] [address]- You Need to Schedule the Following Appointments Follow Up with Will HOLLINS MD, URL When: Where: [address] [place] [address] [place] [address]- Medications What How Much When Instructions Changed tamsulosin (tamsulosin 0.4 mg Cap) 1 Capsules By Mouth Every day Duration: 90 Days Pickup at [facility] Unchanged allopurinol (allopurinol 100 mg Tab) [...] physician if questions or concerns Pharmacy Information [facility]: [address] [phone] Allergies No Known Medication Allergies Problems Ongoing [...] care pr (more content not included)... Normal [facility] Urology Office/Clinic Noteon 01-17-2024 Urology Office/Clinic [...] - 0.23 Pt believes he had a Holliday 7. Completed at [facility]. [1] S/p brachytherapy 03/24/11. PSA decreased which [...] Contact Information GURVINDER HENDRICKSON, Will P, URL [address] [facility] [address] [place] [address]- Additional Instructions: 4 mos with PSA [...] with voice recognition artificial intelligence software, specifically [employer], [employer] and or [employer] Experience. Substitutions may have occurred due to the [...] Left nephrect (more content not included)... Normal [facility] Comment on above: Result Comment: Elec tronically Signed By: Will HOLLINS MD\.br\Date and Time Signed: 01/17/24 08:35 EDT\.br\Electronically Co-Signed By: Laurel Bradley\.br\Date and Time Co-Signed: 01/17/24 08:31 EDT ED Note-Physicianon 10-20-19 ED Note-Physician [id number] 0#1.00TIFF [facility] Lab Reportson 10-20-2023 Lab Reports [id number] 9#1.00TIFF [facility] Lab Reports [id number] 2#1.00TIFF [facility] Screenson 10-20-2023 Screens [id number] #1.00TIFF [facility] Ambulatory Visit Summaryon 0 10-17-2023 Ambulatory Visit Summary JOSSELYNMARCO YUSUF Beverley :1955 Visit Date:10/17/2023 Ambulatory Visit Instructions Your [...] HENDRICKSON, Will Day Where: [facility] Patient Educationon 10-17-19 Patient Education [...] to normal prostate cells (moderately differentiated). ? Holliday 8, 9, or 10: This indicates that [...] external be (more content not included)... Normal [facility] Urology Office/Clinic Noteon 10-17-2023 Urology Office/Clinic Note Chief Complaint 1 year follow up HPI Staff 1 year follow up w/PSA *Taking Flomax 0.4 mg qd S/P Lt Nephrectomy 2000 Pt was seen at [facility] on 09/06/23 due to left rib pain. BUN 36, Creatinine 1.09 10/04/23. BUN 26. Creatinine 1.33 09/06/23 CT SCAN 08/12/23 PSA: 10/26/19 - 0.05 08/10/21 - 0.05 10/11/22 - <0.13 09/30/23 - 0.90 Dysuria: denies pain or burning Incomplete bladder emptying: denies Hematuria: yes 6 weeks ago, went to [facility], vomiting blood Frequency: 3x a day [...] with voice recognition artificial intelligence software, specifically [employer], [employer] and or [employer]. Substitutions may have occurred due to the inherent limitations of voice recognition and artificial intelligence software. 1. Rising PSA following treatment for malignant neoplasm of prostate (R97.21: Rising PSA following treatment for malignant neoplasm of prostate) PSA: 10/26/19 - 0.05 08/10/21 - 0.05 10/11/22 - <0.13 09/30/23 - 0.90 S/p brachytherapy 03/24/11. Pt believes he had a Holliday 7. Completed at [facility]. Rise in PSA is concerning given pt [...] adenocarcinoma the prostate, previously treated at the [facility] with prostate brachytherapy now has a [...] Contact Information GURVINDER HENDRICKSON, Will Day, URL [address] [place] [address] [address] [place] [address]- Additional Instructions: 3 mos w/ PSA Patient Education Prostate Cancer I, Tala Lugo, personally scribed for Dr. Hollins on 10/17/2023 10:42:59. . Documentation recorded by the scribe, Tala Lugo, accurately reflects the services(s) I performed and decisions made by me. Authenticated by Dr. Hollins on 10/17/2023 10:47:47. Problem List/Past (more content not included)... Normal [facility] Comment on above: Result Comment: Elec tronically Signed By: Will HOLLINS MD\.br\Date and Time Signed: 10/17/23 10:50 EDT Automated epithelial cells c ount in urine sediment (number/area)on 10-04-2023 Epithelial cells Auto (Urine sed) [#/Area] NONE SEEN #/LPF NONE/RARE [facility] Automated leukocytes count i n urine sediment (number/area)on 10-04-2023 WBC Auto (Urine sed) [#/Area] NONE SEEN #/HPF 0-2 [facility] Automated urine specific gra vity by refractometryon 10-04-2023 Specific gravity Refractometry automated (U) [Rel density] 1.025 1.005-1.025 [facility] Bilirubin Auto test strip (U ) [Mass/Vol]on 10-04-2023 Bilirubin (U) [Mass/Vol] Negative NEGATIVE [facility] Casts typing in urine sedime nt by light microscopyon 10-04-2023 Casts LM Nom (Urine sed) NONE SEEN #/LPF NONE SEEN [facility] Color Auto (U)on 10-04-2023 Color (U) YELLOW YELLOW [facility] Erythrocyte distribution wid th Auto (RBC) [Ratio]on 10-04-2023 Erythrocyte distribution width (RBC) [Ratio] 13.5 % 11.0-15.0 [facility] Estimated glomerular filtrat ion rate (GFR) non- Americanon 10-04-2023 GFR/1.73 sq M.predicted among non-blacks MDRD (S/P/Bld) [Vol rate/Area] mL/min/{1.73_m2} >=60 [facility] Hematocrit Auto (Bld) [Volum e fraction]on 10-04-2023 Hematocrit (Bld) [Volume fraction] 38.9 % 42.0-54.0 [facility] Hemoglobin [Mass/volume] in Bloodon 10-04-2023 Hemoglobin (Bld) [Mass/Vol] 13.2 g/dL 14.0-18.0 [facility] Iron binding capacity [Mass/ volume] in Serum or Plasmaon 10-04-2023 Iron binding capacity [Mass/Vol] 274.0 ug/dL 250.0-450.0 [facility] Iron saturation [Mass Fracti on] in Serum or Plasmaon 10-04-2023 Iron saturation [Mass fraction] 29.2 % [facility] Ketones Auto test strip (U) [Mass/Vol]on 10-04-2023 Ketones (U) [Mass/Vol] Negative NEGATIVE [facility] Laboratory - Chemistry and C hemistry - challengeon 10-04-2023 Albumin [Mass/Vol] 3.6 g/dL 3.4-5.0 [facility] Calcium [Mass/Vol] 9.4 mg/dL 8.5-10.1 [facility] Chloride [Moles/Vol] 104 mmol/L 98-107 [facility] CO2 [Moles/Vol] 24.4 mmol/L 21.0-32.0 [facility] Creatinine [Mass/Vol] 1.09 mg/dL 0.70-1.30 [facility] Ferritin [Mass/Vol] 257.0 ng/mL 26.0-388.0 [facility] GFR/1.73 sq M.predicted MDRD (S/P/Bld) [Vol rate/Area] mL/min/{1.73_m2} >=60 [facility] Glucose [Mass/Vol] 117 mg/dL 74-106 [facility] Iron [Mass/Vol] 80.0 ug/dL 65.0-175.0 [facility] Potassium [Moles/Vol] 3.9 mmol/L 3.5-5.1 [facility] Sodium [Moles/Vol] 139 mmol/L 136-145 [facility] Urate [Mass/Vol] 5.6 mg/dL 3.5-7.2 [facility] Urea nitrogen [Mass/Vol] 36.0 mg/dL 7.0-18.0 [facility] Urea nitrogen/Creatinine [Mass ratio] 33.0 mg/mg [facility] Laboratory - Urinalysison Protein (U) [Mass/Vol] 16.2 mg/dL <=11.9 [facility] Leukocytes [#/volume] correc yoandy for nucleated erythrocytes in Blood by Automated counon 10-04-2023 WBC corrected for nucl RBC Auto (Bld) [#/Vol] 11.9 10 3/uL 4.0-11.0 [facility] MCH Auto (RBC) [Entitic mass ]on 10-04-2023 MCH (RBC) [Entitic mass] 31.6 pg 25.9-34.0 [facility] MCHC Auto (RBC) [Mass/Vol]on 10-04-2023 MCHC (RBC) [Mass/Vol] 33.9 g/dL 29.9-35.2 [facility] MCV Auto (RBC) [Entitic vol] on 10-04-2023 MCV (RBC) [Entitic vol] 93.1 fL 80.0-94.0 [facility] Mucus LM Ql (Urine sed)on Mucus Ql (Urine sed) NONE SEEN NONE SEEN [facility] No Panel Informationon 10-03 25-Hydroxy Vitamin D Total 29.7 ng/mL [facility] Comment on above: <20 ng/mL Vit D defi cient20-<30 ng/mL Vit D [id number] ng/mL Vit D sufficient>100 ng/mL Potential Toxicity Parathyroid Hormone (Intact) 35 pg/mL 15-65 [facility] Comment on above: Performed at: [facility] [employer] [address] [id number] Director: Raymundo Wynn PhD, Phone: [phone] Phosphorus Level 4.4 mg/dL 2.6-4.7 [facility] Urine Random Creatinine 102.05 mg/dL 20.00-300.00 [facility] Platelet mean volume Auto (B ld) [Entitic vol]on 10-04-2023 Platelet mean volume (Bld) [Entitic vol] 10.5 fL 9.5-13.5 [facility] Platelets Auto (Bld) [#/Vol] on 10-04-2023 Platelets (Bld) [#/Vol] 244 10 3/uL 150-450 [facility] Protein Auto test strip (U) [Mass/Vol]on 10-04-2023 Protein (U) [Mass/Vol] Negative NEG/TRACE [facility] RBC Auto (Bld) [#/Vol]on RBC (Bld) [#/Vol] 4.18 10 6/uL 4.70-6.10 [facility] Serum or plasma anion gap de terminationon 10-04-2023 Anion gap [Moles/Vol] 14.5 mmol/L [facility] Specific gravity Auto test s trip (U) [Rel density]on 10-04-2023 Specific gravity (U) [Rel density] CLEAR CLEAR [facility] Urine bacteria detection by automated methodon 10-04-2023 Bacteria Auto Ql (U) NONE SEEN #/HPF NONE SEEN [facility] Urine glucose measurement by test strip (mass/volume)on 10-04-2023 Glucose Test strip (U) [Mass/Vol] Negative NEGATIVE [facility] Urine hemoglobin detection b y automated test stripon 10-04-2023 Hemoglobin Auto test strip Ql (U) Negative NEGATIVE [facility] Urine nitrite detection by a utomated test stripon 10-04-2023 Nitrite Auto test strip Ql (U) Negative NEGATIVE [facility] Urine protein/creatinine rat ioon 10-04-2023 Protein/Creatinine (U) [Ratio] 0.16 [facility] Urine sediment crystal ident ification by light microscopyon 10-04-2023 Crystals LM Nom (Urine sed) None Seen #/HPF None Seen [facility] Urine sediment leukocyte cou nt by microscopy (number/high power field)on 10-04-2023 WBC LM.HPF (Urine sed) [#/Area] 0-2 #/HPF NONE SEEN [facility] Urobilinogen Auto test strip (U) [Mass/Vol]on 10-04-2023 Urobilinogen Qn (U) 0.2 {Dash'U}/dL 0.2-1.0 [facility] pH Auto test strip (U)on pH (U) 6.0 [pH] 5.0-9.0 [facility] Lab Reportson 09-30-2023 Lab Reports [id number] #1.00TIFF Normal [facility] CT CHEST WO CONon 10-11-2022 CT CHEST [...] LUCAS GOLDSTEIN Date: 2022-10-11 15:31 Normal [facility] CBC AUTO DIFFon 08-23-2022 BASO # 0.0 103/ul Normal 0.0-0.1 [facility] Comment on above: Performed By: #### C BC #### [facility] [address] [place] [address] Dr. Jesus White Basophils/100 WBC (Bld) 0.5 % Normal 0.2-2.0 [facility] Comment on above: Performed By: #### C BC #### [facility] [address] [place] [address] Dr. Jesus White EO # 0.2 103/ul Normal 0.0-0.7 [facility] Comment on above: Performed By: #### C BC #### [facility] [address] [place] [address] Dr. Jesus White Eosinophils/100 WBC (Bld) 2.2 % Normal 0.9-7.0 [facility] Comment on above: Performed By: #### C BC #### [facility] [address] [place] [address] Dr. Jesus White Erythrocyte distribution width (RBC) [Ratio] 13.3 % Normal 11.0-15.0 [facility] Comment on above: Performed By: #### C BC #### [facility] [address] [place] [address] Dr. Jesus White Hematocrit (Bld) [Volume fraction] 43.0 % Normal 42.0-54.0 [facility] Comment on above: Performed By: #### C BC #### [facility] [address] [place] [address] Dr. Jesus White Hemoglobin (Bld) [Mass/Vol] 14.4 g/dL Normal 14.0-18.0 [facility] Comment on above: Performed By: #### C BC #### [facility] [address] [place] [address] Dr. Jesus White IG # 0.02 10e3/ul Normal 0.00-0.03 [facility] Comment on above: Performed By: #### C BC #### [facility] [address] [place] [address] Dr. Jesus White IG % 0.2 % Normal 0.0-0.5 [facility] Comment on above: Performed By: #### C BC #### [facility] [address] [place] [address] Dr. Jesus White LYMPH # 3.0 103/ul Normal 1.2-3.8 [facility] Comment on above: Performed By: #### C BC #### [facility] [address] [place] [address] Dr. Jesus White Lymphocytes/100 WBC (Bld) 35.8 % Normal 20.5-60.0 [facility] Comment on above: Performed By: #### C BC #### [facility] [address] [place] [address] Dr. Jesus White MANUAL DIFF REQ NO Normal [facility] Comment on above: Performed By: #### C BC #### [facility] [address] [place] [address] Dr. Jesus White MCH (RBC) [Entitic mass] 30.6 pg Normal 25.9-34.0 [facility] Comment on above: Performed By: #### C BC #### [facility] [address] [place] [address] Dr. Jesus White MCHC (RBC) [Mass/Vol] 33.5 g/dL Normal 29.9-35.2 [facility] Comment on above: Performed By: #### C BC #### [facility] [address] [address] [address] Jesus White MCV (RBC) [Entitic vol] 91.5 fL Normal 80.0-94.0 [facility] Comment on above: Performed By: #### C BC #### [facility] [address] [address] [address] Jesus White MONO # 0.8 103/ul Normal 0.3-0.8 [facility] Comment on above: Performed By: #### C BC #### [facility] [address] [address] [address] Jesus White Monocytes/100 WBC (Bld) 9.1 % Normal 1.7-12.0 [facility] Comment on above: Performed By: #### C BC #### [facility] [address] [place] [address] Dr. Jesus White NEUT # 4.4 103/ul Normal 1.4-6.5 [facility] Comment on above: Performed By: #### C BC #### [facility] [address] [address] [address] Jesus White Neutrophils/100 WBC (Bld) 52.2 % Normal 43.0-75.0 [facility] Comment on above: Performed By: #### C BC #### [facility] [address] [address] [address] Jesus White Platelet mean volume (Bld) [Entitic vol] 9.8 fL Normal 9.5-13.5 [facility] Comment on above: Performed By: #### C BC #### [facility] [address] [address] [address] Jesus White PLT 236 103/ul Normal 150-450 [facility] Comment on above: Performed By: #### C BC #### [facility] [address] [address] [address] Jesus White RBC 4.70 106/ul Normal 4.70-6.10 [facility] Comment on above: Performed By: #### C BC #### [facility] [address] [address] [address] Jesus White WBC 8.4 103/ul Normal 4.0-11.0 [facility] Comment on above: Performed By: #### C BC #### [facility] [address] [address] [address] Jesus White LIPID PROFILEon 08-23-2022 CHOL-HDL RATIO NORM SEE BELOW Normal [facility] Comment on above: Result Comment: 3.3 - 4.4 LOW RISK 4.4 - 7.1 AVERAGE RISK 7.1 - 11.0 MODERATE RISK >11.0 HIGH RISK Performed By: #### C MP, LIPID #### [facility] [address] [place] [address] Dr. Jesus White Cholesterol [Mass/Vol] 121 mg/dL Normal <=200 [facility] Comment on above: Performed By: #### C MP, LIPID #### [facility] [address] [place] [address] Dr. Jesus White Cholesterol in HDL [Mass/Vol] 37 mg/dL Critically low 40-60 [facility] Comment on above: Performed By: #### C MP, LIPID #### [facility] [address] [place] [address] Dr. Jesus White Cholesterol in LDL [Mass/Vol] 59.6 mg/dL Normal [facility] Comment on above: Performed By: #### C MP, LIPID #### [facility] [address] [place] [address] Dr. Jesus White Cholesterol.total/Ch olesterol in HDL [Mass ratio] 3.3 {ratio} Normal [facility] Comment on above: Performed By: #### C MP, LIPID #### [facility] [address] [place] [address] Dr. Jesus White HDL NORMAL > or = 60 mg/dl - LOW CARDIOVASCULAR RISK <40 mg/dl - HIGH CARDIOVASCULAR RISK Normal [facility] Comment on above: Performed By: #### C MP, LIPID #### [facility] [address] [place] [address] Dr. Jesus White LDL CALC NORMAL SEE BELOW Normal [facility] Comment on above: Result Comment: <100 mg/dl OPTIMAL 100 - 129 mg/dl NEAR OR ABOVE OPTIMAL 130 - 159 mg/dl BORDERLINE HIGH 160 - 189 mg/dl HIGH >190 mg/dl VERY HIGH Performed By: #### C MP, LIPID #### [facility] [address] [address] [address] Jesus White Triglyceride [Mass/Vol] 122 mg/dL Normal <=150 [facility] Comment on above: Performed By: #### C MP, LIPID #### [facility] [address] [address] [address] Jesus White VLDL CALC 24.4 mg/dL Normal [facility] Comment on above: Performed By: #### C MP, LIPID #### [facility] [address] [place] [address] Dr. Jesus White PROF 14(COMP METB)on 023 Albumin [Mass/Vol] 3.8 g/dL Normal 3.4-5.0 [facility] Comment on above: Performed By: #### C MP, LIPID #### [facility] [address] [address] [address] Jesus White Albumin/Globulin [Mass ratio] 1.1 {ratio} Normal [facility] Comment on above: Performed By: #### C MP, LIPID #### [facility] [address] [place] [address] Dr. Jesus White ALP [Catalytic activity/Vol] 46 U/L Normal 46-116 [facility] Comment on above: Performed By: #### C MP, LIPID #### [facility] [address] [address] [address] Jesus White ALT [Catalytic activity/Vol] 37 U/L Normal 16-63 [facility] Comment on above: Performed By: #### C MP, LIPID #### [facility] [address] [address] [address] Jesus White Anion gap [Moles/Vol] 11.3 mmol/L Normal [facility] Comment on above: Performed By: #### C MP, LIPID #### [facility] [address] [address] [address] Jesus White AST [Catalytic activity/Vol] 28 U/L Normal 15-37 [facility] Comment on above: Performed By: #### C MP, LIPID #### [facility] [address] [address] [address] Jesus White Bilirubin [Mass/Vol] 0.5 mg/dL Normal 0.2-1.0 [facility] Comment on above: Performed By: #### C MP, LIPID #### [facility] [address] [address] [address] Jesus White Calcium [Mass/Vol] 9.5 mg/dL Normal 8.5-10.1 [facility] Comment on above: Performed By: #### C MP, LIPID #### [facility] [address] [address] [address] Jesus White Chloride [Moles/Vol] 104 mmol/L Normal 98-107 [facility] Comment on above: Performed By: #### C MP, LIPID #### [facility] [address] [address] [address] Jesus White CO2 [Moles/Vol] 28.9 mmol/L Normal 21.0-32.0 [facility] Comment on above: Performed By: #### C MP, LIPID #### [facility] [address] [address] [address] Jesus White Creatinine [Mass/Vol] 0.99 mg/dL Normal 0.70-1.30 [facility] Comment on above: Performed By: #### C MP, LIPID #### [facility] [address] [address] [address] Jesus White EGFR-AF RWANDAN >60 Normal >=60 [facility] Comment on above: Performed By: #### C MP, LIPID #### [facility] [address] [address] [address] Jesus White EGFR-NON AF RWANDAN >60 Normal >=60 [facility] Comment on above: Performed By: #### C MP, LIPID #### [facility] [address] [address] [address] Jesus White Globulin (S) [Mass/Vol] 3.6 g/dL Normal [facility] Comment on above: Performed By: #### C MP, LIPID #### [facility] [address] [address] [address] Jesus White Glucose [Mass/Vol] 92 mg/dL Normal 74-106 [facility] Comment on above: Performed By: #### C MP, LIPID #### [facility] [address] [address] [address] Jesus White Potassium [Moles/Vol] 4.2 mmol/L Normal 3.5-5.1 [facility] Comment on above: Performed By: #### C MP, LIPID #### [facility] [address] [address] [address] Jesus White Protein [Mass/Vol] 7.4 g/dL Normal 6.4-8.2 [facility] Comment on above: Performed By: #### C MP, LIPID #### [facility] [address] [address] [address] Jesus White Sodium [Moles/Vol] 140 mmol/L Normal 136-145 [facility] Comment on above: Performed By: #### C MP, LIPID #### [facility] [address] [address] [address] Jesus White Urea nitrogen [Mass/Vol] 12.0 mg/dL Normal 7.0-18.0 [facility] Comment on above: Performed By: #### C MP, LIPID #### [facility] [address] [address] [address] Jesus White Urea nitrogen/Creatinine [Mass ratio] 12.1 mg/mg Normal [facility] Comment on above: Performed By: #### C MP, LIPID #### [facility] [address] [place] [address] LUNG CANCER SCREENINGon [...] LUCAS GOLDSTEIN Date: 2022-07-05 12:53 Normal [facility] BLOOD GASES BTYon 04-08-2022 02 MODE ROOM AIR Normal [facility] Comment on above: Performed By: #### A BG ####[facility] [address] [address]Dr. Jesus White ALLENS TEST Positive Normal [facility] Comment on above: Performed By: #### A BG ####[facility] [address] [address]Dr. Jesus White Base excess Calc (Bld) [Moles/Vol] -0.4000 mmol/L Normal -2.0-2.0 [facility] Comment on above: Performed By: #### A BG ####[facility] [address] [address]DrJordin White BIPAP PRESSURE Normal [facility] Comment on above: Performed By: #### A BG ####[facility] [address] [address]Dr. Jesus White CPAP Normal [facility] Comment on above: Performed By: #### A BG ####[facility] [address] [address]Dr. Jesus White FIO2 Normal [facility] Comment on above: Performed By: #### A BG ####[facility] [address] [place], [place] [address]Dr. Jesus White HCO3 (Bld) [Moles/Vol] 24.7 mmol/L Normal 22.0-26.0 [facility] Comment on above: Performed By: #### A BG ####[facility] [address] [place], [place] [address]Dr. Jesus White LPM Normal [facility] Comment on above: Performed By: #### A BG ####[facility] [address] [place], [place] [address]Dr. Jesus White MINUTE VOLUME Normal [facility] Comment on above: Performed By: #### A BG ####[facility] [address] [place], [place] [address]Dr. Jesus White Oxygen (Bld) [Partial pressure] 75.3 mm[Hg] Critically low 80.0-100.0 [facility] Comment on above: Performed By: #### A BG ####[facility] [address] [place], [place] [address]Dr. Jesus White Oxygen saturation in Blood 94.7 % Critically low 95.0-100.0 [facility] Comment on above: Performed By: #### A BG ####[facility] [address] [place], [place] [address]Dr. Jesus White PCO2 42.0 mmHg Normal 35.0-45.0 [facility] Comment on above: Performed By: #### A BG ####[facility] [address] [place], [place] [address]Dr. Jesus White PEEP Normal [facility] Comment on above: Performed By: #### A BG ####[facility] [address] [address]DrJordin White pH (Bld) 7.379 [pH] Normal 7.350-7.450 [facility] Comment on above: Performed By: #### A BG ####[facility] [address] [address]Dr. Jesus White PIP Normal [facility] Comment on above: Performed By: #### A BG ####[facility] [address] [address]Dr. Jesus White PS [facility] Comment on above: Performed By: #### A BG ####[facility] [address] [address]DrJordin White PUNCTURE SITE LR Normal [facility] Comment on above: Performed By: #### A BG ####[facility] [address] [address]Dr. Jesus White RATE [facility] Comment on above: Performed By: #### A BG ####[facility] [address] [address]DrJordin White VENT MODE [facility] Comment on above: Performed By: #### A BG ####[facility] [address] [address]DrJordin White [place] [facility] Comment on above: Performed By: #### A BG ####[facility] [address] [address]DrJordin White CBC AUTO DIFFon 04-08-2022 BASO # 0.1 103/ul Normal 0.0-0.1 [facility] Comment on above: Performed By: #### C BC #### [facility] [address] [address] [address] Jesus White Basophils/100 WBC (Bld) 0.6 % Normal 0.2-2.0 [facility] Comment on above: Performed By: #### C BC #### [facility] [address] [place] [address] Dr. Jesus White EO # 0.2 103/ul Normal 0.0-0.7 [facility] Comment on above: Performed By: #### C BC #### [facility] [address] [place] [address] Dr. Jesus White Eosinophils/100 WBC (Bld) 1.5 % Normal 0.9-7.0 [facility] Comment on above: Performed By: #### C BC #### [facility] [address] [place] [address] Dr. Jesus White Erythrocyte distribution width (RBC) [Ratio] 13.2 % Normal 11.0-15.0 [facility] Comment on above: Performed By: #### C BC #### [facility] [address] [place] [address] Dr. Jesus White Hematocrit (Bld) [Volume fraction] 41.7 % Critically low 42.0-54.0 [facility] Comment on above: Performed By: #### C BC #### [facility] [address] [place] [address] Dr. Jesus White Hemoglobin (Bld) [Mass/Vol] 14.3 g/dL Normal 14.0-18.0 [facility] Comment on above: Performed By: #### C BC #### [facility] [address] [place] [address] Dr. Jesus White IG # 0.03 10e3/ul Normal 0.00-0.03 [facility] Comment on above: Performed By: #### C BC #### [facility] [address] [place] [address] Dr. Jesus White IG % 0.3 % Normal 0.0-0.5 [facility] Comment on above: Performed By: #### C BC #### [facility] [address] [place] [address] Dr. Jesus White LYMPH # 5.6 103/ul Critically high 1.2-3.8 [facility] Comment on above: Performed By: #### C BC #### [facility] [address] [place] [address] Dr. Jesus White Lymphocytes/100 WBC (Bld) 57.0 % Normal 20.5-60.0 [facility] Comment on above: Performed By: #### C BC #### [facility] [address] [place] [address] Dr. Jesus White MANUAL DIFF REQ NO Normal [facility] Comment on above: Performed By: #### C BC #### [facility] [address] [place] [address] Dr. Jesus White MCH (RBC) [Entitic mass] 31.4 pg Normal 25.9-34.0 [facility] Comment on above: Performed By: #### C BC #### [facility] [address] [place] [address] Dr. Jesus White MCHC (RBC) [Mass/Vol] 34.3 g/dL Normal 29.9-35.2 [facility] Comment on above: Performed By: #### C BC #### [facility] [address] [place] [address] Dr. Jesus White MCV (RBC) [Entitic vol] 91.6 fL Normal 80.0-94.0 [facility] Comment on above: Performed By: #### C BC #### [facility] [address] [place] [address] Dr. Jesus White MONO # 0.5 103/ul Normal 0.3-0.8 [facility] Comment on above: Performed By: #### C BC #### [facility] [address] [place] [address] Dr. Jesus White Monocytes/100 WBC (Bld) 5.1 % Normal 1.7-12.0 [facility] Comment on above: Performed By: #### C BC #### [facility] [address] [place] [address] Dr. Jesus White NEUT # 3.5 103/ul Normal 1.4-6.5 [facility] Comment on above: Performed By: #### C BC #### [facility] [address] [place] [address] Dr. Jeuss White Neutrophils/100 WBC (Bld) 35.5 % Critically low 43.0-75.0 [facility] Comment on above: Performed By: #### C BC #### [facility] [address] [place] [address] Dr. Jesus White Platelet mean volume (Bld) [Entitic vol] 9.5 fL Normal 9.5-13.5 [facility] Comment on above: Performed By: #### C BC #### [facility] [address] [address] [address] Jesus White PLT 222 103/ul Normal 150-450 [facility] Comment on above: Performed By: #### C BC #### [facility] [address] [place] [address] Dr. Jesus White RBC 4.55 106/ul Critically low 4.70-6.10 [facility] Comment on above: Performed By: #### C BC #### [facility] [address] [place] [address] Dr. Jesus White WBC 9.8 103/ul Normal 4.0-11.0 [facility] Comment on above: Performed By: #### C BC #### [facility] [address] [place] [address] STROKE HEAD WOon [...] ERNA LEON Date: 2022-04-08 18:50 Normal [facility]on SARS-CoV-2 (COVID-19) RNA PAUL+probe Ql (Unsp spec) Not detected Normal NOT DETECTED [facility] Comment on above: Result Comment: [...] for this test is supported by the Activated Sludge Attendant of Health and Human Service's declaration [...] used). Performed By: #### C VDTBH #### [facility] [address] [place] [address] Dr. Jesus White ETHANOL (BLD ALC)on 04-08-20 22 ALC NOTE NOTE: 80 mg/dl is the legal limit for a blood alcohol level Normal [facility] Comment on above: Performed By: #### E TH ####[facility] [address] [address]Dr. Jesus White Ethanol [Mass/Vol] 344 mg/dL Normal [facility] Comment on above: Performed By: #### E TH ####[facility] [address] [address]Dr. Jesus White PROF 14(COMP METB)on 022 Albumin [Mass/Vol] 3.5 g/dL Normal 3.4-5.0 [facility] Comment on above: Performed By: #### C MP, HSTROPN #### [facility] [address] [place] [address] Dr. Jesus White Albumin/Globulin [Mass ratio] 1.0 {ratio} Normal [facility] Comment on above: Performed By: #### C MP, HSTROPN #### [facility] [address] [address] [address] Jesus White ALP [Catalytic activity/Vol] 41 U/L Critically low 46-116 [facility] Comment on above: Performed By: #### C MP, HSTROPN #### [facility] [address] [address] [address] Jesus White ALT [Catalytic activity/Vol] 28 U/L Normal 16-63 [facility] Comment on above: Performed By: #### C MP, HSTROPN #### [facility] [address] [address] [address] Jesus White Anion gap [Moles/Vol] 12.1 mmol/L Normal [facility] Comment on above: Performed By: #### C MP, HSTROPN #### [facility] [address] [place] [address] Dr. Jesus White AST [Catalytic activity/Vol] 19 U/L Normal 15-37 [facility] Comment on above: Performed By: #### C MP, HSTROPN #### [facility] [address] [address] [address] Jesus White Bilirubin [Mass/Vol] 0.3 mg/dL Normal 0.2-1.0 [facility] Comment on above: Performed By: #### C MP, HSTROPN #### [facility] [address] [address] [address] Jesus White Calcium [Mass/Vol] 8.8 mg/dL Normal 8.5-10.1 [facility] Comment on above: Performed By: #### C MP, HSTROPN #### [facility] [address] [address] [address] Jesus White Chloride [Moles/Vol] 105 mmol/L Normal 98-107 [facility] Comment on above: Performed By: #### C MP, HSTROPN #### [facility] [address] [address] [address] Jesus White CO2 [Moles/Vol] 24.8 mmol/L Normal 21.0-32.0 [facility] Comment on above: Performed By: #### C MP, HSTROPN #### [facility] [address] [place] [address] Dr. Jesus White Creatinine [Mass/Vol] 1.53 mg/dL Critically high 0.70-1.30 [facility] Comment on above: Performed By: #### C MP, HSTROPN #### [facility] [address] [place] [address] Dr. Jesus White EGFR-AF RWANDAN 55 mL/min/1.73m2 Critically low >=60 [facility] Comment on above: Result Comment: Prev iously reported as: (blank) On 04/08/2022 19:15 By [facility] Performed By: #### C JORGE, HSTROPN #### [facility] [address] [place] [address] Dr. Jesus White EGFR-NON AF RWANDAN 46 mL/min/1.73m2 Critically low >=60 [facility] Comment on above: Result Comment: Prev iously reported as: (blank) On 04/08/2022 19:15 By [facility] Performed By: #### C JORGE, HSTROPN #### [facility] [address] [place] [address] Dr. Jesus White Globulin (S) [Mass/Vol] 3.5 g/dL Normal [facility] Comment on above: Performed By: #### C JORGE, HSTROPN #### [facility] [address] [place] [address] Dr. Jesus White Glucose [Mass/Vol] 116 mg/dL Critically high 74-106 [facility] Comment on above: Performed By: #### C MP, HSTROPN #### [facility] [address] [place] [address] Dr. Jesus White Potassium [Moles/Vol] 3.9 mmol/L Normal 3.5-5.1 [facility] Comment on above: Performed By: #### C MP, HSTROPN #### [facility] [address] [place] [address] Dr. Jesus White Protein [Mass/Vol] 7.0 g/dL Normal 6.4-8.2 [facility] Comment on above: Performed By: #### C MP, HSTROPN #### [facility] [address] [address] [address] Jesus White Sodium [Moles/Vol] 138 mmol/L Normal 136-145 [facility] Comment on above: Performed By: #### C MP, HSTROPN #### [facility] [address] [address] [address] Jesus White Urea nitrogen [Mass/Vol] 17.0 mg/dL Normal 7.0-18.0 [facility] Comment on above: Performed By: #### C JORGE, HSTROPN #### [facility] [address] [address] [address] Jesus White Urea nitrogen/Creatinine [Mass ratio] 11.1 mg/mg Normal [facility] Comment on above: Performed By: #### C MP, HSTROPN #### [facility] [address] [address] [address] Jesus White PROTIMEon 04-08-2022 INR Coag (PPP) [Relative time] 1.00 {INR} Normal [facility] Comment on above: Performed By: #### P TT, PT ####[facility] [address] [address]DrJordin White INR GUIDELINES SEE BELOW Normal [facility] Comment on above: Result Comment: JULIET RED INR: 2.0 - 3.0 CONDITIONS NOT LISTED BELOW 2.5 - 3.5 FOR PROSTHETIC HEART VALVE REPLACEMENT 2.5 - 3.5 RECURRENT THROMBOSIS Performed By: #### P TT, PT ####[facility] [address] [address]Dr. Jesus White PT Coag (PPP) [Time] 10.8 s Normal 9.0-11.6 [facility] Comment on above: Performed By: #### P TT, PT ####[facility] [address] [address]Dr. Jesus White PTTon 04-08-2022 aPTT Coag (Bld) [Time] 24.8 s Normal 22.3-36.2 [facility] Comment on above: Performed By: #### P TT, PT ####[facility] [address] [address]Dr. Jesus White TROPONIN, HIGH SENSITIVITYon 04-08-2022 HSTROP 16.7 pg/mL Normal 4.0-76.1 [facility] Comment on above: Result Comment: CUT- OFF POINTS HAVE BEEN ESTABLISHED BASED ON THE FOURTH UNIVERSAL DEFINITIONS OF MYOCARDIAL INFARCTION. THE UPPER REFERENCE LIMIT (URL) OF TROPONIN, DEFINED THE 99TH PERCENTILE OF cTnI DISTRIBUTION IN A REFERENCE POPULATION, HAS BEEN CONFIRMED THE DECISION THRESHOLD FOR PA DIAGNOSIS. Performed By: #### C MP, HSTROPN #### [facility] [address] [place] [address] Dr. Jesus White PROF CHEM 8 (BAS METB)on Anion gap [Moles/Vol] 13.3 mmol/L Normal [facility] Comment on above: Performed By: #### B MP #### [facility] [address] [address] [address] Jesus White Calcium [Mass/Vol] 9.7 mg/dL Normal 8.5-10.1 [facility] Comment on above: Performed By: #### B MP #### [facility] [address] [address] [address] Jesus White Chloride [Moles/Vol] 103 mmol/L Normal 98-107 [facility] Comment on above: Performed By: #### B MP #### [facility] [address] [address] [address] Jesus White CO2 [Moles/Vol] 28.4 mmol/L Normal 21.0-32.0 [facility] Comment on above: Performed By: #### B MP #### [facility] [address] [address] [address] Jesus White Creatinine [Mass/Vol] 1.21 mg/dL Normal 0.70-1.30 [facility] Comment on above: Performed By: #### B MP #### [facility] [address] [address] [address] Jesus White EGFR-AF RWANDAN >60 Normal >=60 [facility] Comment on above: Performed By: #### B MP #### [facility] [address] [address] [address] Jesus White EGFR-NON AF RWANDAN 60 mL/min/1.73m2 Normal >=60 [facility] Comment on above: Performed By: #### B MP #### [facility] [address] [address] [address] Jesus White Glucose [Mass/Vol] 95 mg/dL Normal 74-106 [facility] Comment on above: Performed By: #### B MP #### [facility] [address] [address] [address] Jesus White Potassium [Moles/Vol] 3.7 mmol/L Normal 3.5-5.1 [facility] Comment on above: Performed By: #### B MP #### [facility] [address] [address] [address] Jesus White Sodium [Moles/Vol] 141 mmol/L Normal 136-145 [facility] Comment on above: Performed By: #### B MP #### [facility] [address] [address] [address] Jesus White Urea nitrogen [Mass/Vol] 12.0 mg/dL Normal 7.0-18.0 [facility] Comment on above: Performed By: #### B MP #### [facility] [address] [address] [address] Jesus White Urea nitrogen/Creatinine [Mass ratio] 9.9 mg/mg Normal [facility] Comment on above: Performed By: #### B MP #### [facility] [address] [address] [address] Jesus White ER URINE PROFILEon 2 Bilirubin Ql (U) Negative Normal NEGATIVE [facility] Comment on above: Performed By: #### E CLAEB BARNES ####[facility] [address] [place], [place] [address]Dr. Jesus Christopher Clarity (U) CLEAR Normal CLEAR [facility] Comment on above: Performed By: #### CALEB GOULD ####[facility] [address] [place], [place] [address]Dr. Jesus White Color (U) LT. YELLOW Normal YELLOW [facility] Comment on above: Performed By: #### VALERIO GOULDRO ####[facility] [address] [place], [place] [address]Dr. Carolliseth White ERUAHD A micrscopic examination will be performed if indicated. Normal [facility] Comment on above: Performed By: #### CALEB GOULD ####[facility] [address] [place], [place] [address]Dr. Jesus White Glucose Ql (U) Negative Normal NEGATIVE [facility] Comment on above: Performed By: #### CALEB GOULD ####[facility] [address] [place], [place] [address]Dr. Jesus Christopher Hemoglobin Ql (U) Negative Normal NEGATIVE [facility] Comment on above: Performed By: #### CALEB GOULD ####[facility] [address] [place], [place] [address]Dr. Jesus Christopher Ketones Ql (U) Negative Normal NEGATIVE [facility] Comment on above: Performed By: #### CALEB GOULD ####[facility] [address] [place], [place] [address]Dr. Jesus White LEUKOCYTES Negative Normal NEGATIVE [facility] Comment on above: Performed By: #### VALERIO GOULDRO ####[facility] [address] [place], [place] [address]Dr. Jesus White Nitrite Ql (U) Negative Normal NEGATIVE [facility] Comment on above: Performed By: #### CALEB GOULD ####[facility] [address] [place], [place] [address]Dr. Jesus White pH (U) 6.0 [pH] Normal 5-9 [facility] Comment on above: Performed By: #### Júnior BARNES UMICRO ####[facility] [address] [address]Dr. Jesus White SPEC GRAVITY <=1.005 Abnormal 1.005-<=1.025 [facility] Comment on above: Performed By: #### Júnior BARNES UMICRO ####[facility] [address] [address]Dr. Jesus White UA PROTEIN Negative Normal NEGATIVE/ TRACE [facility] Comment on above: Performed By: #### Júnior BARNES UMICRO ####[facility] [address] [place], [place] [address]Dr. Jesus White UR MICRO IND INDICATED Normal [facility] Comment on above: Performed By: #### Júnior BARNES UMICRO ####[facility] [address] [place], [place] [address]Dr. Jesus White Urobilinogen Qn (U) 0.2 {Dash'U}/dL Normal 0.2 - 1. 0 [facility] Comment on above: Performed By: #### Júnior BARNES UMICRO ####[facility] [address] [place], [place] [address]Dr. Jesus White URINE MICROSCOPIC ONLYon BACTERIA NONE SEEN Normal NONE SEEN [facility] Comment on above: Performed By: #### Júnior BARNES UMICRO ####[facility] [address] [place], [place] [address]Dr. Jesus White Bacteria identified Cx Nom (U) NOT INDICATED Normal [facility] Comment on above: Performed By: #### Júnior BARNES UMICRO ####[facility] [address] [place], [place] [address]Dr. Jesus White CAST NONE SEEN Normal NONE SEEN [facility] Comment on above: Performed By: #### Júnior BARNES UMICRO ####[facility] [id number] [place], [place] [address]Dr. Jesus White Crystals LM Nom (Urine sed) NONE SEEN Normal NONE SEEN [facility] Comment on above: Performed By: #### Júnior BARNES UMICRO ####[facility] [id number] [id number]. Jesus White Epithelial cells LM Ql (Urine sed) RARE Normal NONE SEEN /RARE [facility] Comment on above: Performed By: #### Júnior BARNES UMICRO ####[facility] [id number] [id number]. Jesus White MUCOUS NONE SEEN Normal NONE SEEN [facility] Comment on above: Performed By: #### Júnior BARNES UMICRO ####[facility] [id number] [id number]. Jesus White RBC NONE SEEN Abnormal 0-2 [facility] Comment on above: Performed By: #### Júnior BARNES UMICRO ####[facility] [id number] [id number]. Jesus White WBC NONE SEEN Normal NONE SEEN [facility] Comment on above: Performed By: #### Júnior BARNES UMICRO ####[facility] [id number] [id number]. Carolliseth White US CRYSTAL DOP LEG LTon [...] VARSHA BARNARD Date: 2022-01-01 08:49 Normal [facility] Vital Signs Date Time Vital Sign Value Performing Clinician Facility 12-25-2024 16:02-0400 Body mass index (BMI) [Ratio] 34.01 kg/m2 Susan Brownz ELECTRIC MELT OPERATOR Work Phone: [facility] 12-25-2024 16:02-0400 Body temperature 98.1 [degF] Susan Brownz ELECTRIC MELT OPERATOR Work Phone: [facility] 12-25-2024 16:02-0400 Body weight 107.5 kg Susan Brownz ELECTRIC MELT OPERATOR Work Phone: [facility] 12-25-2024 16:02-0400 Diastolic blood pressure 56 mm[Hg] Susanmargaret Brownz ELECTRIC MELT OPERATOR Work Phone: [facility] 12-25-2024 16:02-0400 Heart rate 86 /min Susanmargaret Brownz ELECTRIC MELT OPERATOR Work Phone: [facility] 12-25-2024 16:02-0400 Respiratory rate 26 /min Susanmargaret Brownz ELECTRIC MELT OPERATOR Work Phone: [facility] 12-25-2024 16:02-0400 SaO2% (BldA) [Mass fraction] 97 % Susanmargaret Brownz ELECTRIC MELT OPERATOR Work Phone: [facility] 12-25-2024 16:02-0400 Systolic blood pressure 102 mm[Hg] Susan Brownz ELECTRIC MELT OPERATOR Work Phone: [facility] 10-03-2024 09:44-0400 Body height 177.8 cm Susan Brownz ELECTRIC MELT OPERATOR Work Phone: [facility] 10-03-2024 09:44-0400 Body mass index (BMI) [Ratio] 34.58 kg/m2 Susanmargaret Quinteroholz ELECTRIC MELT OPERATOR Work Phone: [facility] 10-03-2024 09:44-0400 Body temperature 97.11 [degF] Susan Quinteroholz ELECTRIC MELT OPERATOR Work Phone: [facility] 10-03-2024 09:44-0400 Body weight 109.32 kg Susanmargaret Brownz ELECTRIC MELT OPERATOR Work Phone: [facility] 10-03-2024 09:44-0400 Diastolic blood pressure 68 mm[Hg] Susan Edward ELECTRIC MELT OPERATOR Work Phone: [facility] 10-03-2024 09:44-0400 Heart rate 72 /min Susan Edward ELECTRIC MELT OPERATOR Work Phone: [facility] 10-03-2024 09:44-0400 Respiratory rate 18 /min Susan Edward ELECTRIC MELT OPERATOR Work Phone: [facility] 10-03-2024 09:44-0400 SaO2% (BldA) [Mass fraction] 98 % Susan Edward ELECTRIC MELT OPERATOR Work Phone: [facility] 10-03-2024 09:44-0400 Systolic blood pressure 130 mm[Hg] Susan Brownz ELECTRIC MELT OPERATOR Work Phone: [facility] 06-20-2024 09:31-0500 Body height 177.8 cm Nicolle Rodriguez ELECTRIC MELT OPERATOR Work Phone: [facility] 06-20-2024 09:31-0500 Body mass index (BMI) [Ratio] 33.58 kg/m2 Nicolle Rodriguez ELECTRIC MELT OPERATOR Work Phone: [facility] 06-20-2024 09:31-0500 Body temperature 97.7 [degF] Nicolle Rodriguez ELECTRIC MELT OPERATOR Work Phone: [facility] 06-20-2024 09:31-0500 Body weight 106.14 kg Nicolle Rodriguez ELECTRIC MELT OPERATOR Work Phone: [facility] 06-20-2024 09:31-0500 Diastolic blood pressure 76 mm[Hg] Nicolle Rodriguez ELECTRIC MELT OPERATOR Work Phone: [facility] 06-20-2024 09:31-0500 Heart rate 69 /min Nicolle Rodriguez ELECTRIC MELT OPERATOR Work Phone: [facility] 06-20-2024 09:31-0500 Respiratory rate 18 /min Nicolle Rodriguez ELECTRIC MELT OPERATOR Work Phone: [facility] 06-20-2024 09:31-0500 SaO2% (BldA) [Mass fraction] 99 % Nicolle Rodriguez ELECTRIC MELT OPERATOR Work Phone: [facility] 06-20-2024 09:31-0500 Systolic blood pressure 138 mm[Hg] Nicolle Rodriguez ELECTRIC MELT OPERATOR Work Phone: [facility] 05-22-2024 10:51-0500 Body height 177.8 cm Nicolle Rodriguez ELECTRIC MELT OPERATOR Work Phone: [facility] 05-22-2024 10:51-0500 Body mass index (BMI) [Ratio] 32.43 kg/m2 Nicolle Rodriguez ELECTRIC MELT OPERATOR Work Phone: [facility] 05-22-2024 10:51-0500 Body temperature 96.69 [degF] Nicolle Rodriguez ELECTRIC MELT OPERATOR Work Phone: [facility] 05-22-2024 10:51-0500 Body weight 102.51 kg Nicolle Rodriguez ELECTRIC MELT OPERATOR Work Phone: [facility] 05-22-2024 10:51-0500 Diastolic blood pressure 78 mm[Hg] Nicolle Rodriguez ELECTRIC MELT OPERATOR Work Phone: [facility] 05-22-2024 10:51-0500 Heart rate 74 /min Nicolle Rodriguez ELECTRIC MELT OPERATOR Work Phone: [facility] 05-22-2024 10:51-0500 Respiratory rate 18 /min Nicolle Rodriguez ELECTRIC MELT OPERATOR Work Phone: [facility] 05-22-2024 10:51-0500 SaO2% (BldA) [Mass fraction] 97 % Nicolle Rodriguez ELECTRIC MELT OPERATOR Work Phone: [facility] 05-22-2024 10:51-0500 Systolic blood pressure 146 mm[Hg] Nicolle Rodriguez ELECTRIC MELT OPERATOR Work Phone: [facility] 04-23-2024 14:58-0500 Body height 172.7 cm Nicolle Rodriguez ELECTRIC MELT OPERATOR Work Phone: [facility] 04-23-2024 14:58-0500 Body mass index (BMI) [Ratio] 35.58 kg/m2 Nicolle Rodriguez ELECTRIC MELT OPERATOR Work Phone: [facility] 04-23-2024 14:58-0500 Body temperature 97.3 [degF] Nicolle Rodriguez ELECTRIC MELT OPERATOR Work Phone: [facility] 04-23-2024 14:58-0500 Body weight 106.14 kg Nicolle Rodriguez ELECTRIC MELT OPERATOR Work Phone: [facility] 04-23-2024 14:58-0500 Diastolic blood pressure 60 mm[Hg] Nicolle Rodriguez ELECTRIC MELT OPERATOR Work Phone: [facility] 04-23-2024 14:58-0500 Heart rate 62 /min Nicolle Rodriguez ELECTRIC MELT OPERATOR Work Phone: [facility] 04-23-2024 14:58-0500 Respiratory rate 22 /min Nicolle Rodriguez ELECTRIC MELT OPERATOR Work Phone: [facility] 04-23-2024 14:58-0500 SaO2% (BldA) [Mass fraction] 97 % Nicolle Rodriguez ELECTRIC MELT OPERATOR Work Phone: [facility] 04-23-2024 14:58-0500 Systolic blood pressure 130 mm[Hg] Nicolle Rodriguez ELECTRIC MELT OPERATOR Work Phone: [facility] 03-19-2024 08:59-0400 Body mass index (BMI) [Ratio] 33.06 kg/m2 Nicolle Rodriguez ELECTRIC MELT OPERATOR Work Phone: [facility] 03-19-2024 08:59-0400 Body temperature 97.3 [degF] Nicolle Rodriguez ELECTRIC MELT OPERATOR Work Phone: [facility] 03-19-2024 08:59-0400 Body weight 104.51 kg Nicolle Burrowspatrick ELECTRIC MELT OPERATOR Work Phone: [facility] 03-19-2024 08:59-0400 Diastolic blood pressure 80 mm[Hg] Nicolle Rodriguez ELECTRIC MELT OPERATOR Work Phone: [facility] 03-19-2024 08:59-0400 Heart rate 63 /min Nicolle Kurtzzpatrick ELECTRIC MELT OPERATOR Work Phone: [facility] 03-19-2024 08:59-0400 SaO2% (BldA) [Mass fraction] 98 % Nicolle Kurtzzpatrick ELECTRIC MELT OPERATOR Work Phone: [facility] 03-19-2024 08:59-0400 Systolic blood pressure 162 mm[Hg] Nicolle Rodriguez ELECTRIC MELT OPERATOR Work Phone: [facility] 01-17-2024 08:08-0400 Blood Pressure Location Will HOLLINS [facility] 01-17-2024 08:08-0400 Diastolic blood pressure 84 mm[Hg] Will COOK [facility] 01-17-2024 08:08-0400 Heart rate 62 /min Will HOLLINS [facility] 01-17-2024 08:08-0400 Respiratory rate 19 /min Will GURVINDER [facility] 01-17-2024 08:08-0400 Systolic blood pressure 151 mm[Hg] Will COOK [facility] 10-17-2023 10:02-0400 Blood Pressure Location Will HOLLINS [facility] 10-17-2023 10:02-0400 Diastolic blood pressure 66 mm[Hg] Will HOLLINS [facility] 10-17-2023 10:02-0400 Heart rate 66 /min Will HOLLINS [facility] 10-17-2023 10:02-0400 Respiratory rate 18 /min Will HOLLINS [facility] 10-17-2023 10:02-0400 Systolic blood pressure 120 mm[Hg] Will HOLLINS [facility] 10-13-2023 13:17-0400 Body height 177.8 cm [facility] 10-13-2023 13:17-0400 Body mass index (BMI) [Ratio] 32.5 kg/m2 [facility] 10-13-2023 13:17-0400 Body temperature 97 [degF] [facility] 10-13-2023 13:17-0400 Body weight 102.96 kg [facility] 10-13-2023 13:17-0400 Diastolic blood pressure 70 mm[Hg] [facility] 10-13-2023 13:17-0400 Heart rate 74 /min [facility] 10-13-2023 13:17-0400 Respiratory rate 20 /min [facility] 10-13-2023 13:17-0400 SaO2% (BldA) [Mass fraction] 97 % [facility] 10-13-2023 13:17-0400 Systolic blood pressure 120 mm[Hg] [facility] 03-17-2023 15:20-0400 Body height 177.8 cm Jose Julien Other [employer] [facility] [employer] Other 03-17-2023 15:20-0400 Body mass index (BMI) [Ratio] 31.96 kg/m2 Jose Julien Other [employer] Other 03-17-2023 15:20-0400 Body temperature 96.9 [degF] Jose Julien Other [employer] Other 03-17-2023 15:20-0400 Body weight 101.06 kg Jose Julien Other [employer] Other 03-17-2023 15:20-0400 Diastolic blood pressure 73 mm[Hg] Jose Julien Other [employer] Other 03-17-2023 15:20-0400 Respiratory rate 18 /min Jose Julien Other [employer] Other 03-17-2023 15:20-0400 SaO2% (BldA) [Mass fraction] 98 % Jose Julien Other [employer] Other 03-17-2023 15:20-0400 Systolic blood pressure 134 mm[Hg] Jose Julien Other [employer] Other 09-30-2022 11:20-0400 Body height 177.8 cm Jose Julien Other [employer] Other 09-30-2022 11:20-0400 Body mass index (BMI) [Ratio] 33.6 kg/m2 Jose Julien Other [employer] Other 09-30-2022 11:20-0400 Body temperature 96.3 [degF] Jose Julien Other [employer] Other 09-30-2022 11:20-0400 Body weight 106.23 kg Jose Julien Other [employer] Other 09-30-2022 11:20-0400 Diastolic blood pressure 64 mm[Hg] Jose Julien Other [employer] Other 09-30-2022 11:20-0400 Respiratory rate 18 /min Jose Julien Other [employer] Other 09-30-2022 11:20-0400 SaO2% (BldA) [Mass fraction] 99 % Jose Julien Other [employer] Other 09-30-2022 11:20-0400 Systolic blood pressure 138 mm[Hg] Jose Julien Other [employer] Other 03-22-2022 14:00-0400 Body height 177.8 cm Jose Julien Other [employer] Other 03-22-2022 14:00-0400 Body mass index (BMI) [Ratio] 33.14 kg/m2 Jose Julien Other [employer] Other 03-22-2022 14:00-0400 Body temperature 95.9 [degF] Jose Julien Other [employer] Other 03-22-2022 14:00-0400 Body weight 104.78 kg Jose Julien Other [employer] Other 03-22-2022 14:00-0400 Diastolic blood pressure 70 mm[Hg] Jose Julien Other [employer] Other 03-22-2022 14:00-0400 Respiratory rate 18 /min Jose Julien Other [employer] Other 03-22-2022 14:00-0400 SaO2% (BldA) [Mass fraction] 97 % Jose Julien Other [employer] Other 03-22-2022 14:00-0400 Systolic blood pressure 119 mm[Hg] Jose Julien Other [employer] Other 06-18-2021 11:40-0500 Body height 177.8 cm Jose Julien Other [employer] Other 06-18-2021 11:40-0500 Body mass index (BMI) [Ratio] 37.22 kg/m2 Jose Julien Other [employer] Other 06-18-2021 11:40-0500 Body temperature 95.9 [degF] Jose Julien Other [employer] Other 06-18-2021 11:40-0500 Body weight 117.66 kg Jose Julien Other [employer] Other 06-18-2021 11:40-0500 Diastolic blood pressure 70 mm[Hg] Jose Julien Other [employer] Other 06-18-2021 11:40-0500 Respiratory rate 18 /min Jose Julien Other [employer] Other 06-18-2021 11:40-0500 SaO2% (BldA) [Mass fraction] 97 % Jose Julien Other [employer] Other 06-18-2021 11:40-0500 Systolic blood pressure 124 mm[Hg] Jose [facility] Other Encounters Encounter Date Encounter Type Care Provider Facility Start: 12-31-2024 ambulatory Will HOLLINS Facility :[facility] Start: 12-25-2024 End: 12-25-2024 Office outpatient visit 25 minutes Susan Edward NP Work Phone: [facility] Comment on above: Diarrhea, unspecifie d type (Primary Dx); Primary hypertension ; Personal history of renal cell carcinoma; Tobacco dependence syndrome; Acute non-recurrent maxillary sinusitis; Pulmonary emphysema, unspecified emphysema type (HCC); Malignant neoplasm of prostate (HCC); Stage 3a chronic kidney disease ([facility]-HCC) Start: 12-25-2024 End: 12-25-2024 Bamboo flowsheet Susan Edward NP Work Phone: [facility] Start: 12-25-2024 End: 12-25-2024 Bamboo flowsheet Susan Edward ELECTRIC MELT OPERATOR Work Phone: [facility] Start: 12-25-2024 End: 12-25-2024 Clinisync Result Encounter Susan Edward NP Work Phone: [facility] Unsolicited Start: 11-14-2024 End: 11-14-2024 Clinisync Result Encounter Generic External Data Provider [facility] Unsolicited Start: 11-14-2024 End: 11-14-2024 Clinisync Result Encounter Generic External Data Provider [facility] Unsolicited Start: 10-12-2024 End: 10-12-2024 Clinisync Result Encounter Generic External Data Provider [facility] Unsolicited Start: 10-12-2024 End: 10-12-2024 Clinisync Result Encounter Generic External Data Provider [facility] External [facility] Unsolicited Start: 10-03-2024 End: 10-03-2024 Bamboo flowsheet Susan Edward ELECTRIC MELT OPERATOR Work Phone: [facility] Start: 10-03-2024 End: 10-03-2024 Bamboo flowsheet Susan Edward ELECTRIC MELT OPERATOR Work Phone: [facility] Start: 10-03-2024 End: 10-03-2024 Patient encounter procedure Susan Wagner ELECTRIC MELT OPERATOR Work Phone: [facility] Comment on above: Encounter for Medica re annual wellness exam (Primary Dx); Pulmonary emphysema, unspecified emphysema type (CMS/HCC); Primary hypertension (CMS/HCC); BPH with obstruction/lower urinary tract symptoms; Stage 3a chronic kidney disease (HCC) (CMS/HCC); Mixed hyperlipidemia (CMS/HCC); Tobacco dependence syndrome; Hyperlipidemia, unspecified (CMS/HCC); Centrilobular emphysema (CMS/HCC); Viral upper respiratory tract infection; Chronic right heart failure (HCC) (CMS/HCC); Essential (primary) hypertension (CMS/HCC); Gastroesophageal reflux disease with esophagitis without hemorrhage; Malignant (primary) neoplasm, unspecified (CMS/HCC); MATILDA (obstructive sleep apnea) Start: 10-03-2024 End: 10-03-2024 ambulatory SUSAN EDWARD Not Available Start: 08-14-2024 End: 08-14-2024 ambulatory Maribel X Orzech Facility: [facility] Start: 07-23-2024 ambulatory Maribel X Orzech Facilit y:[facility] Start: 07-17-2024 End: 07-17-2024 Clinisync Result Encounter Nicolle Rodriguez ELECTRIC MELT OPERATOR Work Phone: [facility] Unsolicited Start: 07-17-2024 End: 07-17-2024 Clinisync Result Encounter Nicolle Rodriguez ELECTRIC MELT OPERATOR Work Phone: [facility] Unsolicited Start: 07-17-2024 End: 07-17-2024 ambulatory Will HOLLINS Facility: [facility] Start: 07-17-2024 End: 07-17-2024 Patient encounter procedure Will HOLLINS [facility] Start: 07-10-2024 End: 07-10-2024 Refill Peggy Jacobsen MA [facility] Comment on above: Centrilobular emphys zoila (CMS/HCC); Viral upper respiratory tract infection; Essential (primary) hypertension (CMS/HCC); Gastroesophageal reflux disease with esophagitis without hemorrhage; Malignant (primary) neoplasm, unspecified (CMS/HCC) Start: 06-20-2024 End: 06-20-2024 Bamboo flowsheet Nicolle Pinontrick ELECTRIC MELT OPERATOR Work Phone: [facility] Start: 06-20-2024 End: 06-20-2024 Bamboo flowsheet Nicolle Pinontrick ELECTRIC MELT OPERATOR Work Phone: [facility] Start: 06-20-2024 End: 06-20-2024 Office outpatient visit 15 minutes Nicolle Rodriguez ELECTRIC MELT OPERATOR Work Phone: [facility] Comment on above: Mixed hyperlipidemia (CMS/HCC) (Primary Dx); Centrilobular emphysema (CMS/HCC); Stage 3a chronic kidney disease (HCC) (CMS/HCC); Primary hypertension (CMS/HCC); Hyperuricemia; Hyperlipidemia, unspecified (CMS/HCC); Viral upper respiratory tract infection; Chronic right heart failure (HCC) (CMS/HCC); Essential (primary) hypertension (CMS/HCC); Gastroesophageal reflux disease with esophagitis without hemorrhage; Malignant (primary) neoplasm, unspecified (CMS/HCC) Start: 06-20-2024 End: 06-20-2024 ambulatory NICOLLE SMITHK Not Available Start: 05-22-2024 End: 05-22-2024 Bamboo flowsheet Nicolle Kurtzzpatrick ELECTRIC MELT OPERATOR Work Phone: [facility] Start: 05-22-2024 End: 05-22-2024 Bamboo flowsheet Nicolle Rodriguez ELECTRIC MELT OPERATOR Work Phone: [facility] Start: 05-22-2024 End: 05-22-2024 Transitional care manage srvc 7 day discharge Nicolle Rodriguez ELECTRIC MELT OPERATOR Work Phone: [facility] Comment on above: Fall, subsequent enc ounter (Primary Dx); Hyperuricemia; Hyperlipidemia, unspecified (CMS/HCC); Centrilobular emphysema (CMS/HCC); Chronic right heart failure (HCC) (CMS/HCC); Malignant (primary) neoplasm, unspecified (CMS/HCC); Compression fracture of C3 vertebra with routine healing, subsequent encounter Start: 05-22-2024 End: 05-22-2024 ambulatory NICOLLE PINONTRICK Not Available Start: 05-22-2024 End: 05-22-2024 ambulatory Will HOLLINS Facility:[facility] Start: 05-22-2024 End: 05-22-2024 Patient encounter procedure Will HOLLINS [facility] Start: 04-23-2024 End: 04-23-2024 Office outpatient visit 15 minutes Nicolle Rodriguez ELECTRIC MELT OPERATOR Work Phone: [facility] Comment on above: Bronchitis (Primary Dx); Viral upper respiratory tract infection Start: 04-23-2024 End: 04-23-2024 ambulatory NICOLLE KURTZZPATRICK Not Available Start: 04-23-2024 End: 04-23-2024 Bamboo flowsheet Nicolle Kurtzzpatrick ELECTRIC MELT OPERATOR Work Phone: [facility] Start: 04-23-2024 End: 04-23-2024 Bamboo flowsheet Nicolle Rodriguez ELECTRIC MELT OPERATOR Work Phone: [facility] Start: 04-18-2024 End: 04-18-2024 Clinisync Result Encounter Generic External Data Provider [facility] Unsolicited Start: 04-18-2024 End: 04-18-2024 Clinisync Result Encounter Generic External Data Provider [facility] Unsolicited Start: 03-27-2024 End: 03-27-2024 Refill Nicolle Smithk ELECTRIC MELT OPERATOR Work Phone: [facility] Comment on above: Hyperlipidemia, unsp ecified (CMS/HCC); Essential (primary) hypertension (CMS/HCC); Hyperuricemia; Gastroesophageal reflux disease with esophagitis without hemorrhage Start: 03-20-2024 End: 03-20-2024 Orders Only Nicolle Rodriguez ELECTRIC MELT OPERATOR Work Phone: [facility] Comment on above: Acute bacterial sinu sitis (Primary Dx) Start: 03-19-2024 End: 03-19-2024 Bamboo flowsheet Nicolle Rodriguez ELECTRIC MELT OPERATOR Work Phone: [facility] Start: 03-19-2024 End: 03-19-2024 Bamboo flowsheet Nicolle Rodriguez ELECTRIC MELT OPERATOR Work Phone: [facility] Start: 03-19-2024 End: 03-19-2024 Clinisync Result Encounter Nicolle Rodriguez ELECTRIC MELT OPERATOR Work Phone: [facility] External Department Unsolicited Start: 03-19-2024 End: 03-19-2024 Office outpatient visit 15 minutes Nicolle Rodriguez ELECTRIC MELT OPERATOR Work Phone: [facility] Comment on above: Viral upper respirat ory tract infection (Primary Dx); Acute right ankle pain; Centrilobular emphysema (CMS/HCC); Ankle injury, right, initial encounter Start: 03-19-2024 End: 03-19-2024 Refill Nicolle Rodriguez ELECTRIC MELT OPERATOR Work Phone: [facility] Comment on above: Hyperuricemia Start: 01-17-2024 End: 01-17-2024 ambulatory Will HOLLINS Facility:[facility] Start: 01-17-2024 End: 01-17-2024 Patient encounter procedure Will HOLLINS [facility] Start: 11-24-2023 End: 11-24-2023 ambulatory SHAIKH KALIN Not Available Start: 10-17-2023 End: 10-17-2023 ambulatory Will HOLLINS Facility:[facility] Start: 10-17-2023 End: 10-17-2023 Patient encounter procedure Will HOLLINS [facility] Start: 10-13-2023 End: 10-13-2023 ambulatory [facility] Work Phone: Start: 10-13-2023 End: 10-13-2023 Patient encounter procedure [facility] Physician [facility] Work Phone: Start: 10-04-2023 Non-patient / Non-visit [facility] Professional [employer] Work Phone: Start: 05-10-2023 Patient encounter procedure Nicolle Rodriguez ELECTRIC MELT OPERATOR Work Phone: [facility] Start: 03-17-2023 End: 03-17-2023 ambulatory Jose Julien Other [employer] Other Start: 03-17-2023 Office outpatient vi sit 15 minutes Jose Julien [facility] Start: 10-11-2022 End: 10-12-[address] WILL HOLLINS Facility:[facility] Start: 09-30-2022 End: 09-30-2022 ambulatory Jose Julien Other [facility] Other Start: 09-30-2022 Office outpatient vi sit 15 minutes Jose Julien [facility] Start: 08-23-2022 End: 08-24-2022 ambulatory SHAIKH Nancy GAGNON Facility:[facility] Start: 07-05-2022 End: 07-06-2022 ambulatory RUKHSANA AGUILAR . Facility:[facility] Start: 04-08-2022 End: 04-08-[address] COLTEN Brenner Facility:[facility] Start: 03-24-2022 End: 03-25-2022 ambulatory RUKHSANA AGUILAR . Facility:[facility] Start: 03-22-2022 End: 03-22-2022 ambulatory Jose Julien Other [employer] Other Start: 03-22-2022 Office outpatient vi sit 25 minutes Jose Julien [facility] Start: 02-16-2022 End: 02-17-2022 ambulatory SHAIKH Nancy GAGNON Facility:[facility] Start: 01-01-2022 End: 01-01-[address] JENSEN DUFFY . Facility:[facility] Start: 06-21-2021 End: 06-21-2021 ambulatory Jose Julien Other [employer] Other Start: 06-21-2021 Telephone encounter Jose Julien [facility] Start: 06-18-2021 End: 06-18-2021 ambulatory Jose Julien Other [employer] Other Start: 06-18-2021 Office outpatient vi sit 25 minutes Jose Julien [facility] Procedures Date Procedure Procedure Detail Performing Clinician Start: 12-25-2024 XR CHEST 2V Susan Dayna brownz ELECTRIC MELT OPERATOR Work Phone: Start: 11-14-2024 MHPT PSA, DIAGNOSTIC Ge neric External Data Provider Start: 10-12-2024 CT CHEST WO CON Generic External Data Provider Start: 07-17-2024 ALL CBC WITH AUTO DIFF Nicolle Rodriguez ELECTRIC MELT OPERATOR Work Phone: Start: 04-18-2024 MHPT PSA, DIAGNOSTIC Ge neric External Data Provider Start: 03-19-2024 SARS-COV-2 AG* Nicolle Smithk ELECTRIC MELT OPERATOR Work Phone: Start: 03-19-2024 H INFLUENZA A AND B AG Nicolle Smithk ELECTRIC MELT OPERATOR Work Phone: Start: 10-11-[address] WINIFRED HOLLINS Comment on above: Performed By: #### P SAD ####[place] [id number] White Start: 03-24-2011 Brachytherapy Will PIZARRO Start: 06-06-2000 Excision of left kidney Will HOLLINS Cataract (disorder) Will HOLLINS Extraction of wisdom tooth G kerry HOLLINS History of hernia repair Gre gabriel HOLLINS Plan of Treatment Date Care Activity Detail Author Start: 09-22-2026 Screening for malign ant neoplasm of colon [facility] Start: 10-07-2025 End: 10-07-2025 Patient encounter procedure 10/07/2025 10:30 AM EDT Office Visit [facility] [address] [place] [phone] Susan Edward, NIC [address] [place] [phone] [facility] Start: 03-28-2025 End: 03-28-2025 Patient encounter procedure 03/28/2025 9:00 AM EDT [facility] [address] [place] [address] Susan Edward, ELECTRIC MELT OPERATOR [address] [place] [phone] [facility] Start: 02-04-2025 Influenza vaccination N [facility] Start: 01-03-2025 End: 01-03-2025 Patient encounter procedure 01/03/2025 9:20 AM EDT Office Visit [facility] [address] [place] [phone] Susan Edward, ELECTRIC MELT OPERATOR [address] [place] [phone] [facility] Start: 12-25-2024 End: 12-25-2024 Patient encounter procedure 12/25/2024 4:00 PM EDT Office Visit [facility] [address] [place] [address] Susan Edward NP [address] [place] [address] Primary hypertension (Primary Dx); Personal history of renal cell carcinoma; Tobacco dependence syndrome [facility] Comment on above: Primary hypertension (Primary Dx); Personal history of renal cell carcinoma; Tobacco dependence syndrome Start: 12-25-2024 End: 12-25-2025 CBC W Auto Differential panel - Blood CBC and differential Lab Routine Diarrhea, unspecified type Expected: 12/25/2024 (Approximate), Expires: 12/25/2025 [facility] Work Phone: Comment on above: Expected: 12/25/2024 (Approximate), Expires: 12/25/2025 Start: 12-25-2024 End: 12-25-2025 Comprehensive metabolic 2000 panel - Serum or Plasma Comprehensive metabolic panel Lab Routine Stage 3a chronic kidney disease (CMS-HCC) Diarrhea, unspecified type Expected: 12/25/2024 (Approximate), Expires: 12/25/2025 [facility] Comment on above: Expected: 12/25/2024 (Approximate), Expires: 12/25/2025 Start: 12-25-2024 End: 12-25-2025 Erythrocyte sedimentation rate Sedimentation rate, automated Lab Routine Diarrhea, unspecified type Expected: 12/25/2024 (Approximate), Expires: 12/25/2025 [facility] Comment on above: Expected: 12/25/2024 (Approximate), Expires: 12/25/2025 Start: 12-25-2024 End: 12-25-2025 Urinalysis complete panel - Urine Urinalysis with reflex microscopic (clean catch) Lab Routine Stage 3a chronic kidney disease (CMS-HCC) Diarrhea, unspecified type Expected: 12/25/2024 (Approximate), Expires: 12/25/2025 [facility] Comment on above: Expected: 12/25/2024 (Approximate), Expires: 12/25/2025 Start: 12-25-2024 End: 12-25-2025 XR Chest 2 Views XR chest 2 views Imaging Routine Pulmonary emphysema, unspecified emphysema type (HCC) Expected: 12/25/2024 (Approximate), Expires: 12/25/2025 [facility] Comment on above: Expected: 12/25/2024 (Approximate), Expires: 12/25/2025 Start: 10-03-2024 End: 10-03-2024 Patient encounter procedure 10/03/2024 9:40 AM EDT Office Visit [facility] [address] [place] [phone] Susan Edward NP [address] [place] [phone] Pulmonary emphysema, unspecified emphysema type (CMS/HCC) (Primary Dx); Primary hypertension (CMS/HCC); BPH with obstruction/lower urinary tract symptoms; Stage 3a chronic kidney disease (HCC) (CMS/HCC); Mixed hyperlipidemia (CMS/HCC); Tobacco dependence syndrome [facility] Comment on above: Pulmonary emphysema, unspecified emphysema type (CMS/HCC) (Primary Dx); Primary hypertension (CMS/HCC); BPH with obstruction/lower urinary tract symptoms; Stage 3a chronic kidney disease (HCC) (CMS/HCC); Mixed hyperlipidemia (CMS/HCC); Tobacco dependence syndrome Start: 09-18-2024 End: 09-18-2024 Patient encounter procedure 09/18/2024 9:30 AM EDT Office Visit [facility] [address] [place] [phone] Nicolle Rodriguez NP [address] [place] [phone] [facility] Start: 06-20-2024 End: 06-20-2025 CBC W Auto Differential panel - Blood CBC and differential Lab Routine Mixed hyperlipidemia (CMS/HCC) Stage 3a chronic kidney disease (HCC) (CMS/HCC) Primary hypertension (CMS/HCC) Expected: 06/20/2024 (Approximate), Expires: 06/20/2025 [facility] Comment on above: Expected: 06/20/2024 (Approximate), Expires: 06/20/2025 Start: 06-20-2024 End: 06-20-2025 Comprehensive metabolic 2000 panel - Serum or Plasma Comprehensive metabolic panel Lab Routine Mixed hyperlipidemia (CMS/HCC) Stage 3a chronic kidney disease (HCC) (CMS/HCC) Primary hypertension (CMS/HCC) Expected: 06/20/2024 (Approximate), Expires: 06/20/2025 [facility] Comment on above: Expected: 06/20/2024 (Approximate), Expires: 06/20/2025 Start: 06-20-2024 End: 06-20-2025 Lipid 1996 panel - Serum or Plasma Lipid panel Lab Routine Mixed hyperlipidemia (CMS/HCC) Expected: 06/20/2024 (Approximate), Expires: 06/20/2025 [facility] Work Phone: Comment on above: Expected: 06/20/2024 (Approximate), Expires: 06/20/2025 Start: 06-20-2024 End: 06-20-2024 Patient encounter procedure 06/20/2024 9:30 AM EST Office Visit [facility] [address] [place] [phone] Nicolle Rodriguez, ELECTRIC MELT OPERATOR [address] [place] [phone] Arrived [facility] Comment on above: Arrived Start: 06-19-2024 End: 06-19-2024 Patient encounter procedure 06/19/2024 9:30 AM EST Office Visit [facility] [address] [place] [phone] Nicolle Rodriguez, ELECTRIC MELT OPERATOR [address] [place] [phone] [facility] Start: 05-22-2024 End: 05-22-2024 Patient encounter procedure 05/22/2024 11:00 AM EST Office Visit [facility] [address] [place] [phone] Nicolle Rodriguez, ELECTRIC MELT OPERATOR [address] [place] [address] [facility] Comment on above: Arrived Start: 05-10-2024 Medicare Annual Well ness (AWV) Medicare Annual Wellness (AWV) [facility] Start: 04-23-2024 End: 04-23-2024 Patient encounter procedure 04/23/2024 3:00 PM EST Office Visit [facility] [address] [place] [phone] Nicolle Rodriguez, ELECTRIC MELT OPERATOR [address] [place] [address] Arrived [facility] Comment on above: Arrived Start: 03-19-2024 End: 03-19-2025 COVID-19 / FLU A/B / RSV PCR ([facility]) COVID-19 / FLU A/B / RSV PCR ([facility]) Lab Routine Viral upper respiratory tract infection Expected: 03/19/2024 (Approximate), Expires: 03/19/2025 [facility] Work Phone: Comment on above: Expected: 03/19/2024 (Approximate), Expires: 03/19/2025 Start: 03-19-2024 End: 03-19-2024 Patient encounter procedure 03/19/2024 9:00 AM EDT Office Visit [facility] [address] [place] [address] Nicolle Rodriguez, ELECTRIC MELT OPERATOR [address] [place] [phone] Arrived [facility] Comment on above: Arrived Start: 02-05-2024 Influenza vaccination Influenza Vacc ine (#1) [facility] Start: 02-21-1975 Pneumococcal Vaccine : 65+ Years (1 of 2 - PCV) Pneumococcal Vaccine: 65+ Years (1 of 2 - PCV) [facility] Start: 02-21-1962 Pneumococcal Vaccine : 65+ Years (1 of 2 - PCV) Pneumococcal Vaccine: 65+ Years (1 of 2 - PCV) [facility] Start: 1955 Screening for malign ant neoplasm of colon [facility] Start: 1955 Screening for malign ant neoplasm of lung Lung Cancer Screening Shared Decision Making [facility] Microalbumin/Creatin ine panel in random Urine Microalbumin / creatinine urine ratio Lab Routine Primary hypertension (CMS/HCC) Ordered: 06/20/2024 [facility] Comment on above: Ordered: 06/20/2024 Renal function 2000 panel - Serum or Plasma [facility] XR Ankle - right 3 Views XR ankl e 3+ views right Imaging Routine Acute right ankle pain Ordered: 03/19/2024 [facility] Comment on above: Ordered: 03/19/2024 [facility] Immunizations Immunization Date Immunization Notes Care Provider [facility] 03-17-2023 influenza virus vaccine, unspecified formulation Will HOLLINS [facility] 03-17-2023 Influenza, High-dose Seasonal, Quadrivalent, Preservative Free Nicolle Rodriguez ELECTRIC MELT OPERATOR Work Phone: [facility] 03-27-2022 influenza virus vaccine, unspecified formulation Will HOLLINS [facility] 03-27-2022 Influenza, High-dose Seasonal, Quadrivalent, Preservative Free Nicolle Rodriguez ELECTRIC MELT OPERATOR Work Phone: [facility] 05-27-2021 SARS-CoV-2 (COVID-19 ) mRNA-3603 vaccine Will HOLLINS [facility] Comment on above: Result Comment: [facility] 03-26-2021 influenza virus vaccine, unspecified formulation Will HOLLINS [facility] 03-26-2021 Influenza, High-dose Seasonal, Quadrivalent, Preservative Free Nicolle Rodriguez ELECTRIC MELT OPERATOR Work Phone: [facility] 11-21-2020 SARS-CoV-2 (COVID-19 ) mRNA-1273 vaccine Will HOLLINS [facility] 10-16-2020 SARS-CoV-2 (COVID-19 ) mRNA-1273 vaccine Will [employer] [facility] 02-05-2020 influenza virus vaccine, unspecified formulation Will [employer] [facility] 05-14-2014 influenza virus vaccine, unspecified formulation Will [employer] [facility] 05-14-2014 influenza, seasonal, injectable Nicolle Rodriguez ELECTRIC MELT OPERATOR Work Phone: [facility] Payers Date Payer Category Payer Medicaid [id number] 2012 Medicaid [place] [employer] [id number] 1959 Medicare [id number] [id number] 1956 Unknown [id number] 2.16.840.1.551587.3.579.2.593 1956 Unknown [id number] 2.16.840.1.205288.3.579.2.593 1956 Unknown [id number] 2.16.840.1.992228.3.579.2.593 1956 Unknown [id number] 2.16.840.1.668351.3.579.2.593 1956 Unknown [id number] 2.16.840.1.403087.3.579.2.593 1956 Unknown [id number] 2.16.840.1.540509.3.579.2.593 1956 Unknown [id number] 2.16.840.1.158772.3.579.2.593 1956 Unknown [id number] 2.16.840.1.571323.3.579.2.593 1956 Unknown [id number] 2.16.840.1.784397.3.579.2.727 1956 Unknown [id number] 2.16.840.1.901236.3.579.2.727 1956 Unknown [id number] 2.16.840.1.665143.3.579.2.727 1956 Unknown [id number] 2.16.840.1.852974.3.579.2.727 1956 Unknown [id number] 2.16.840.1.963069.3.579.2.727 1956 Unknown [id number] 2.16.840.1.081049.3.579.2.727 1956 Unknown [id number] 2.16.840.1.860422.3.579.2.727 1956 Unknown [id number] 2.16.840.1.105944.3.579.2.1259 1956 Unknown [id number] 2.16.840.1.138868.3.579.2.1259 1956 Unknown [id number] 2.16.840.1.377155.3.579.2.1259 1956 Unknown [id number] 2.16.840.1.754444.3.579.2.1259 1956 Unknown [id number] 2.16.840.1.432553.3.579.2.1259 1956 Unknown [id number] 2.16.840.1.538917.3.579.2.1259 Medicaid [employer] [id number] Self-pay Self Pay [id number] Unknown [employer] GHAZALA [id number] Social History Date Type Detail Facility Unknown if ever smoked [employer] Other Start: 05-10-2023 End: 10-03-2024 Sex Assigned At [facility] Start: 10-13-2023 Tobacco smoking stat [facility] Smoker (finding) [facility] Start: 1955 Sex Assigned At Male F [facility] Start: 10-17-2023 End: 01-17-2024 Tobacco smoking status Light tobacco smoker (finding) [facility] Tobacco smoking status Never [facility] Start: 11-24-2023 Tobacco smoking stat [facility] Smokes tobacco daily [facility] History of tobacco use Cigarette Smoker [facility] Start: 05-10-2023 End: 11-24-2023 Cigarettes smoked current (pack per day) - Reported 1 [facility] History of tobacco use Passive smoker [facility] Start: 11-24-2023 Tobacco use and exposure Smokeless tobacco non-user [facility] Start: 11-24-2023 End: 12-25-2024 Alcoholic beverage intake Current drinker of alcohol [...] - these days [OSQ] To some extent [facility] (I/We) worried wheth er (my/our) food would run out before (I/we) got money to buy more. Never true [facility] Start: 05-06-2023 Alcohol Comment caffene: 1-2 c ups per day [facility] Start: 1955 Sex assigned at Not on file [facility] Functional Status Date Assessment Result Facility 10-03-2024 Patient Health Quest ionnaire 2 item (PHQ-2) [Reported] [facility] 01-17-2024 Functional Status N/A [facility] 10-17-2023 Functional Status N/A [facility] Clinical Notes 06-18-2021 to 12-25-2024 Susan Edward NP - 12/25/2024 5:08 PM Jono Edward NP - 12/25/2024 5:08 PM Jono Edward NP - 12/25/2024 5:08 PM Jono Edward NP - 12/25/2024 5:07 PM EDTPatient Instructions Note Date & Type Note Facility 12-25-2024 History of Presen t illness Narrative Associated Problem(s): Acute non-recurrent maxillary sinusitis Augmentin 875mg BID for 10 days take with food Associated Problem(s): Chronic kidney disease, stage 3 unspecified ([facility]) D/t recent illness with order labs Associated Problem(s): Malignant neoplasm of prostate (HCC) Follows with urology Associated Problem(s): Personal history of renal cell carcinoma Follows with urology Associated Problem(s): 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 About 3 weeks ago he had bed bugs and feels that he took care of them and has not seen them in about 2 weeks. Pt states he was getting bit quite a bit. Pt became SOB, dizziness, no headaches, no fevers no chills, pt did fall one time, weakness, fatigue, sinus pressure, watery eyes, no ear pain, stuffy nose, some runny nose in the AM, drainage, sneezing, dry cough, dry heaves, no vomiting, nausea, soft Bms- diarrhea, chest pain- from breathing Images from the original note were not included. Marco Lowery Josselynshasha is a 69 y.o. male presents with chief complaint of Nausea HPI: Pt states that pt started out with muscle aches and diarrhea about 7-10 days ago. About 3 weeks ago he had bed bugs and feels that he took care of them and has not seen them in about 2 weeks. Pt states he was getting bit quite a bit. Pt became SOB, dizziness, no headaches, no fevers no chills, pt did fall one time, weakness, fatigue, sinus pressure, watery eyes, no ear pain, stuffy nose, some runny nose in the AM, drainage, sneezing, dry cough, dry heaves, no vomiting, nausea, soft Bms- diarrhea, chest pain- from breathing Mucus: sinus clear/yellow, +sinus congestion, no bloody stool/urination SUBJECTIVE: MEDICATIONS: Current Outpatient Medications Medication Instructions albuterol HFA 90 mcg/act inhaler 2 puffs, Inhalation, 4 times daily allopurinol (ZYLOPRIM) 100 mg, Daily amoxicillin-clavulanate (Augmentin) 875-125 MG tablet 875 mg, Oral, 2 times daily, Take with food atorvastatin (LIPITOR) 40 mg, Oral, Nightly baclofen (LIORESAL) 5 mg, Every 24 hours budesonide-formoterol (Symbicort) 160-4.5 MCG/ACT inhaler 2 puffs, Inhalation, 2 times daily, Rinse mouth with water after use to reduce aftertaste and incidence of candidiasis. Do not swallow. cholecalciferol (VITAMIN D-3) 2,000 Units, Daily fluticasone (Flonase) 50 MCG/ACT nasal spray 1-2 sprays, Each Nostril, Daily, Shake gently. Before first use, prime pump. After use, clean tip and replace cap. furosemide (LASIX) 20 mg, Oral, Daily losartan (COZAAR) 50 mg, Oral, Daily metoprolol tartrate (LOPRESSOR) 25 mg, Oral, 2 times daily Multiple Vitamins-Minerals (PreserVision AREDS 2) capsule 2 capsules, Daily nitroglycerin (NITROSTAT) 0.4 mg, Every 5 min PRN omeprazole (PRILOSEC) 40 mg, Oral, Daily tamsulosin (FLOMAX) 0.4 mg, Oral, Nightly ALLERGIES: No Known Allergies REVIEW OF SYMPTOMS: Review of Systems Constitutional: Positive for fatigue. Negative for activity change, appetite change and unexpected weight change. HENT: Positive for sinus pressure. Negative for ear pain, nosebleeds, sneezing, trouble swallowing and voice change. Eyes: Negative for pain, discharge and visual disturbance. Respiratory: Positive for cough and shortness of breath. Negative for apnea, chest tightness and wheezing. Cardiovascular: Negative for leg swelling. Gastrointestinal: Positive for diarrhea. Negative for abdominal distention, blood in stool and constipation. Genitourinary: Negative for decreased urine volume, difficulty urinating, dysuria and hematuria. Skin: Negative for color change. Neurological: Negative for dizziness, tremors and seizures. Psychiatric/Behavioral: Negative for agitation, decreased concentration, hallucinations, self-injury and suicidal ideas. The patient is not nervous/anxious. Hematological: Negative for adenopathy. Does not bruise/bleed easily. Endocrine: Negative for cold intolerance, heat intolerance, polydipsia and polyuria. Allergic/Immunologic: Negative for environmental allergies and food allergies. PAST MEDICAL HISTORY Past Medical History: Diagnosis Date Centrilobular emphysema (HCC) Centrilobular emphysema ([facility]) Chronic GERD Chronic kidney disease (CKD) stage G3b/A1, moderately decreased glomerular filtration rate (GFR) between 30-44 mL/min/1.73 square meter and albuminuria creatinine ratio less than 30 mg/g (H* ([facility] Chronic right-sided heart failure ([facility]) Cigarette nicotine dependence with nicotine-induced disorder COPD (chronic obstructive pulmonary disease) ([facility]) COPD (chronic obstructive pulmonary disease) with emphysema ([facility]) Depression Diverticulosis Elevated serum creatinine Gastroesophageal reflux disease GERD (gastroesophageal reflux disease) Hiatal hernia History of alcohol abuse History of kidney cancer HTN (hypertension) Hyperlipidemia Infected dental caries Inguinal hernia Laceration of hand, left Nicotine dependence, cigarettes, with other nicotine-induced disorders Obesity MATILDA (obstructive sleep apnea) Osteopetrosis ([facility]) Prostate cancer (HCC) Restless leg Sleep apnea Past Surgical History: Procedure Laterality Date ABDOMINAL HERNIA REPAIR 2 abdominal hernias HERNIA REPAIR Bilateral 2016 inguinal hernia repair NEPHRECTOMY Left PROSTATE SURGERY prostate implants WISDOM TOOTH EXTRACTION family history includes Cancer in his father; Diabetes in his father; Hypertension in his mother. OBJECTIVE: Visit Vitals BP 102/56 (BP Location: Left arm, Patient Position: Sitting, BP Cuff Size: Large adult) Pulse 86 Temp 98.1 F (Temporal) Resp 26 Wt 237 lb SpO2 97% BMI 34.01 kg/m Smoking Status Every Day BSA 2.31 m Physical Exam Vitals and nursing note reviewed. Constitutional: General: He is not in acute distress. Appearance: Normal appearance. He is obese. He is not ill-appearing or toxic-appearing. HENT: Head: Normocephalic. Right Ear: Tympanic membrane, ear canal and external ear normal. Left Ear: Tympanic membrane, ear canal and external ear normal. Nose: Congestion and rhinorrhea present. Mouth/Throat: Mouth: Mucous membranes are moist. Pharynx: Oropharynx is clear. No oropharyngeal exudate or posterior oropharyngeal erythema. Eyes: Extraocular Movements: Extraocular movements intact. Conjunctiva/sclera: Conjunctivae normal. Neck: Vascular: No carotid bruit. Cardiovascular: Rate and Rhythm: Normal rate and regular rhythm. Pulses: Normal pulses. Heart sounds: Normal heart sounds. No murmur heard. Pulmonary: Effort: Pulmonary effort is normal. Breath sounds: Normal breath sounds. Comments: Clear, diminished, but is holding side right side of rib Abdominal: General: Bowel sounds are normal. There is no distension. Palpations: Abdomen is soft. Tenderness: There is abdominal tenderness (right ant/lat rib, over RUQ, no rebound). Comments: Protuberant abd Musculoskeletal: Cervical back: Neck supple. Right lower leg: Edema present. Left lower leg: Edema present. Lymphadenopathy: Cervical: No cervical adenopathy. Skin: General: Skin is warm and dry. Capillary Refill: Capillary refill takes 2 to 3 seconds. Neurological: General: No focal deficit present. Mental Status: He is alert. Psychiatric: Mood and Affect: Mood normal. Behavior: Behavior normal. Thought Content: Thought content normal. Judgment: Judgment normal. ASSESSMENT AND PLAN: Follow up for Next scheduled follow-up. 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) Current meds: albuterol, symbicort Samsa Suspicion he could have had COVID a few weeks ago and current sxs are ongoing I am going to check a cxr to r/o pneumonia, although vitals are stable Relevant Orders XR chest 2 views Primary hypertension - Primary Please check blood pressure daily and record DASH diet Limit caffeine Take medication as directed Contact office if chest pain, pressure, dizziness, shortness of breath, swelling legs Recommend slow position changes Current meds: losartan, metoprolol Malignant neoplasm of prostate (HCC) Follows with urology Personal history of renal cell carcinoma Follows with urology Tobacco dependence syndrome The patient has been advised of the risks of continued smoking: stroke, PA, all forms of cancer, lung disease, and . Options for quitting smoking include: cold turkey, hypnosis, acupuncture, nicotine replacement meds (gum, lozenges, and patches), Buproprion, and Varenicline. At this time pt is encouraged to evaluate their goals for wanting to quit smoking, and reach out to provider when ready to start this process Chronic kidney disease, stage 3 unspecified ([facility]) D/t recent illness with order labs Relevant Orders Comprehensive metabolic panel Urinalysis with reflex microscopic (clean catch) Acute non-recurrent maxillary sinusitis Augmentin 875mg BID for 10 days take with food Relevant Medications amoxicillin-clavulanate (Augmentin) 875-125 MG tablet Diarrhea Relevant Orders CBC and differential Sedimentation rate, automated Comprehensive metabolic panel Urinalysis with reflex microscopic (clean catch) Associated Problem(s): Tobacco dependence syndrome The patient has been advised of the risks of continued smoking: stroke, PA, all forms of cancer, lung disease, and . Options for quitting smoking include: cold turkey, hypnosis, acupuncture, nicotine replacement meds (gum, lozenges, and patches), Buproprion, and Varenicline. At this time pt is encouraged to evaluate their goals for wanting to quit smoking, and reach out to provider when ready to start this process Associated Problem(s): Primary hypertension Please check blood pressure daily and record DASH diet Limit caffeine Take medication as directed Contact office if chest pain, pressure, dizziness, shortness of breath, swelling legs Recommend slow position changes Current meds: losartan, metoprolol documented in this encounter [facility] 12-25-2024 Instructions Susan Edward NP - 12/25/2024 4:00 PM EDT Check labs documented in this encounter [facility] 10-03-2024 History of Presen t illness Narrative Associated Problem(s): Encounter for Medicare annual wellness exam Reviewed Ht/Wt/BMI Recommend eye exam yearly Recommend dental exams twice a year Balance work/leisure activities Exercises is recommended most days of the week (appropriate as chronic conditions allow) Follow up yearly and prn Associated Problem(s): MATILDA (obstructive sleep apnea) You have a diagnosis of obstructive sleep [...] Salas Doctor that manages your MATILDA: Olegario Images from the original note were not included. Marco Mustafa is a 69 y.o. male presents with chief complaint of Medicare Annual Wellness Visit Subsequent (wellness) HPI: Diet: variety, not a lot of fruits but does juice Activity: not regular, but does have have some activity at least 3 times weekly Mental Health Concerns: recently, no memory issues Falls in the last year: yes slipped on wet pavement Still driving: yes Do you pay your bills: yes Any hearing problems: no Any Vision problems: MD rox, 1 year ago exam Any Hospitalizations in the last year: yes, ETOH related fall Specialist: eye, nohemy Victoria dr cook HCPOA/Living Will: no Concerns: HTN: takes meds daily, no chest pain, +dyspnea (COPD), no open sores in feet Complaint with PAP, and takes GERD meds Whisky: 10-12 shots per week SUBJECTIVE: MEDICATIONS: Current Outpatient Medications Medication Instructions albuterol HFA 90 mcg/act inhaler 2 puffs, Inhalation, 4 times daily atorvastatin (LIPITOR) 40 mg, Oral, Daily budesonide-formoterol (Symbicort) 160-4.5 MCG/ACT inhaler 2 puffs, Inhalation, Daily, Rinse mouth with water after use to reduce aftertaste and incidence of candidiasis. Do not swallow. fluticasone (Flonase) 50 MCG/ACT nasal spray 1-2 sprays, Each Nostril, Daily, Shake gently. Before first use, prime pump. After use, clean tip and replace cap. furosemide (LASIX) 20 mg, Oral, Daily losartan (COZAAR) 50 mg, Oral, Daily metoprolol tartrate (LOPRESSOR) 25 mg, Oral, 2 times daily Multiple Vitamins-Minerals (PreserVision AREDS 2) capsule 2 capsules, Daily omeprazole (PRILOSEC) 40 mg, Oral, Daily tamsulosin (FLOMAX) 0.4 mg, Oral, Daily ALLERGIES: No Known Allergies REVIEW OF SYMPTOMS: Review of Systems Constitutional: Negative for activity change, appetite change and unexpected weight change. HENT: Negative for ear pain, nosebleeds, sneezing, trouble swallowing and voice change. Eyes: Negative for pain, discharge and visual disturbance. Respiratory: Positive for cough and shortness of breath. Negative for apnea, chest tightness and wheezing. Cardiovascular: Positive for leg swelling. Gastrointestinal: Negative for abdominal distention, blood in stool, constipation and diarrhea. Genitourinary: Negative for decreased urine volume, difficulty urinating, dysuria and hematuria. Skin: Negative for color change. Neurological: Negative for dizziness, tremors and seizures. Psychiatric/Behavioral: Negative for agitation, decreased concentration, hallucinations, self-injury and suicidal ideas. The patient is not nervous/anxious. Hematological: Negative for adenopathy. Does not bruise/bleed easily. Endocrine: Negative for cold intolerance, heat intolerance, polydipsia and polyuria. Allergic/Immunologic: Negative for environmental allergies and food allergies. PAST MEDICAL HISTORY Past Medical History: Diagnosis Date Centrilobular emphysema (CMS/HCC) Centrilobular emphysema (CMS/HCC) Chronic GERD Chronic kidney disease (CKD) stage G3b/A1, moderately decreased glomerular filtration rate (GFR) between 30-44 mL/min/1.73 square meter and albuminuria creatinine ratio less than 30 mg/g (H* Chronic right-sided heart failure (HCC) (CMS/HCC) Cigarette nicotine dependence with nicotine-induced disorder COPD (chronic obstructive pulmonary disease) (CMS/HCC) COPD (chronic obstructive pulmonary disease) with emphysema (CMS/HCC) Depression (CMS/HCC) Diverticulosis Elevated serum creatinine Gastroesophageal reflux disease GERD (gastroesophageal reflux disease) Hiatal hernia History of alcohol abuse History of kidney cancer HTN (hypertension) (CMS/HCC) Hyperlipidemia (CMS/HCC) Infected dental caries Inguinal hernia Laceration of hand, left Nicotine dependence, cigarettes, with other nicotine-induced disorders Obesity MATILDA (obstructive sleep apnea) Osteopetrosis Prostate cancer (CMS/HCC) Restless leg Sleep apnea Past Surgical History: Procedure Laterality Date ABDOMINAL HERNIA REPAIR 2 abdominal hernias HERNIA REPAIR Bilateral 2016 inguinal hernia repair NEPHRECTOMY Left PROSTATE SURGERY prostate implants WISDOM TOOTH EXTRACTION family history includes Cancer in his father; Diabetes in his father; Hypertension in his mother. OBJECTIVE: Visit Vitals BP 130/68 Pulse 72 Temp 97.1 F Resp 18 Ht 5' 10 Wt 241 lb SpO2 98% BMI 34.58 kg/m Smoking Status Every Day BSA 2.32 m Physical Exam Vitals and nursing note reviewed. Constitutional: Appearance: Normal appearance. He is obese. He is not ill-appearing. HENT: Head: Normocephalic. Right Ear: External ear normal. Left Ear: External ear normal. Nose: Nose normal. Mouth/Throat: Mouth: Mucous membranes are moist. Pharynx: Oropharynx is clear. Eyes: Extraocular Movements: Extraocular movements intact. Conjunctiva/sclera: Conjunctivae normal. Neck: Vascular: No carotid bruit. Cardiovascular: Rate and Rhythm: Normal rate and regular rhythm. Pulses: Normal pulses. Heart sounds: Normal heart sounds. No murmur heard. Pulmonary: Effort: Pulmonary effort is normal. Breath sounds: No wheezing or rhonchi. Comments: Diminished, prolonged expiration Abdominal: General: Bowel sounds are normal. Palpations: Abdomen is soft. Hernia: A hernia (ventral) is present. Musculoskeletal: Cervical back: Neck supple. Right lower leg: Edema present. Left lower leg: Edema present. Comments: Generalized lower ext Lymphadenopathy: Cervical: No cervical adenopathy. Skin: General: Skin is warm and dry. Capillary Refill: Capillary refill takes 2 to 3 seconds. Neurological: General: No focal deficit present. Mental Status: He is alert. Psychiatric: Mood and Affect: Mood normal. Behavior: Behavior normal. Thought Content: Thought content normal. Judgment: Judgment normal. ASSESSMENT AND PLAN: No follow-ups on file. Problem List Items Addressed This Visit COPD (chronic obstructive pulmonary disease) with emphysema ([facility]) Current meds: albuterol, symbicort [facility] Relevant Medications albuterol HFA 90 mcg/act inhaler budesonide-formoterol (Symbicort) 160-4.5 MCG/ACT inhaler Mixed hyperlipidemia ([facility]) On statin therapy Check labs yearly an prn dose changes Primary hypertension ([facility]) Please check blood pressure daily and record DASH diet Limit caffeine Take medication as directed Contact office if chest pain, pressure, dizziness, shortness of breath, swelling legs Recommend slow position changes Current meds: losartan, metoprolol Encounter for Medicare annual wellness exam - Primary Reviewed Ht/Wt/BMI Recommend eye exam yearly Recommend dental exams twice a year Balance work/leisure activities Exercises is recommended most days of the week (appropriate as chronic conditions allow) Follow up yearly and prn BPH with obstruction/lower urinary tract symptoms Takes tamsulosin Tobacco dependence syndrome The patient has been advised of the risks of continued smoking: stroke, PA, all forms of cancer, lung disease, and . Options for quitting smoking include: cold turkey, hypnosis, acupuncture, nicotine replacement meds (gum, lozenges, and patches), Buproprion, and Varenicline. At this time pt is encouraged to evaluate their goals for wanting to quit smoking, and reach out to provider when ready to start this process Chronic kidney disease, stage 3 unspecified (HCC) ([facility]) Control risk factors, try to limit NSAIDS Periodically check labs Julien MATILDA (obstructive sleep apnea) You have a diagnosis of obstructive sleep [...] Salas Doctor that manages your MATILDA: Olegario Other Visit Diagnoses Hyperlipidemia, unspecified ([facility]) Relevant Medications atorvastatin (Lipitor) 40 MG tablet Viral upper respiratory tract infection Relevant Medications fluticasone (Flonase) 50 MCG/ACT nasal spray Chronic right heart failure (HCC) ([facility]) Relevant Medications furosemide (Lasix) 20 MG tablet Essential (primary) hypertension (CMS/HCC) Relevant Medications losartan (Cozaar) 50 MG tablet metoprolol tartrate (Lopressor) 25 MG tablet Gastroesophageal reflux disease with esophagitis without hemorrhage Relevant Medications omeprazole (PriLOSEC) [address] capsule Malignant (primary) neoplasm, unspecified (CMS/HCC) Relevant Medications tamsulosin (Flomax) 0.4 MG 24 hr capsule Associated Problem(s): Tobacco dependence syndrome The patient has been advised of the risks of continued smoking: stroke, PA, all forms of cancer, lung disease, and . Options for quitting smoking include: cold turkey, hypnosis, acupuncture, nicotine replacement meds (gum, lozenges, and patches), Buproprion, and Varenicline. At this time pt is encouraged to evaluate their goals for wanting to quit smoking, and reach out to provider when ready to start this process Associated Problem(s): Mixed hyperlipidemia (CMS/HCC) On statin therapy Check labs yearly an prn dose changes Associated Problem(s): Chronic kidney disease, stage 3 unspecified (HCC) (CMS/HCC) Control risk factors, try to limit NSAIDS Periodically check labs Julien Associated Problem(s): BPH with obstruction/lower urinary tract symptoms Takes tamsulosin Associated Problem(s): Primary hypertension (CMS/HCC) Please check blood pressure daily and record DASH diet Limit caffeine Take medication as directed Contact office if chest pain, pressure, dizziness, shortness of breath, swelling legs Recommend slow position changes Current meds: losartan, metoprolol Associated Problem(s): COPD (chronic obstructive pulmonary disease) with emphysema ([facility]) Current meds: albuterol, symbicort samsa documented in this encounter [facility] 08-14-2024 Note Patient Education Oncology Prostate Cancer The prostate [...] more likely to develop this condition if: ??? You are 65 years of age or older. ??? You have a family history of prostate cancer. ??? You have a family history of breast and ovarian cancer. ??? You have genes that are passed from parent to child (inherited), such as BRCA1 and BRCA2. ??? You have Ayon syndrome. men and men of descent are diagnosed with prostate cancer at higher rates than other men. The reasons for this are not well understood and are likely due to a combination of genetic and environmental factors. What are the signs or symptoms? Symptoms of this condition include: ??? Problems with urination. This may include: ? A weak or interrupted flow of urine. ? Trouble starting or stopping urination. ? Trouble emptying the bladder all the way. ? The need to urinate more often, especially at night. ??? Blood in urine or semen. ??? Persistent pain or discomfort in the lower back, lower abdomen, or hips. ??? Trouble getting an erection. ??? Weakness or numbness in the legs or feet. How is this diagnosed? This condition can be diagnosed with: ??? A digital rectal exam. For this exam, a health care provider inserts a gloved finger into the rectum to feel the prostate gland. ??? A blood test called a prostate-specific antigen (PSA) test. ??? A procedure in which a sample of tissue is taken from the prostate and checked under a microscope (prostate biopsy). ??? An imaging test called transrectal ultrasonography. Once the condition is diagnosed, tests will be done to determine how far the cancer has spread. This is called staging the cancer. Staging may involve imaging tests, such as a bone scan, CT scan, PET scan, or MRI. Stages of prostate cancer The stages of prostate cancer are as follows: ??? Stage 1 (I). At this stage, the cancer is found in the prostate only. The cancer is not visible on imaging tests, and it is usually found by accident, such as during prostate surgery. ??? Stage 2 (II). At this stage, the cancer is more advanced than it is in stage 1, but the cancer has not spread outside the prostate. ??? Stage 3 (III). At this stage, the cancer has spread beyond the outer layer of the prostate to nearby tissues. The cancer may be found in the seminal vesicles, which are near the bladder and the prostate. ??? Stage 4 (IV). At this stage, the [...] the likelihood that the cancer will spread. ??? Holliday 6 or lower: This indicates that the cancer cells look similar to normal prostate cells (well differentiated). ??? Primitivo 7: This indicates that the cancer cells look somewhat similar to normal prostate cells (moderately differentiated). ??? Holliday 8, 9, or 10: This indicates that the cancer cells look very different than normal prostate cells (poorly differentiated). How is this treated? Treatment for this condition depends on several factors, including the stage of the cancer, your age, personal preferences, and your overall health. Talk with your health care provider about treatment options that are recommended for you. Common treatments include: ??? Observation for early stage prostate cancer (active surveillance). This involves having exams, blood tests, and in some cases, more biopsies. For some men, this is the only treatment needed. ??? Surgery. Types of surgeries include: ? Open [...] surgery to freeze and destroy cancer cells. ??? Radiation treatment. Types of radiation treatment include: ? External beam radiation. This type aims beams of radiation from outside the body at the prostate to destroy cancerous cells. ? Brachytherapy. This type uses radioactive needles, seeds, wires, o (more content not included)... [facility] 07-10-2024 Miscellaneous Notes ROBYN:06/20/2024 NOV:09/18/2024 documented in this encounter [facility] 07-10-2024 Telephone encounter Note ROBYN:06/20/2024 NOV:09/18/2024 [facility] 06-20-2024 History of Presen t illness Narrative [...] COPD (chronic obstructive pulmonary disease) with emphysema ([facility]) Follows closely with Dr. Aguilar. Has had multiple hospitalizations this year due to exacerbations. Is still a current 0.5ppd smoker. Currently taking Symbicort Atrovent Albuterol. Continue current regimen as directed by pulmonology. Relevant Medications albuterol HFA 90 mcg/act inhaler budesonide-formoterol (Symbicort) 160-4.5 MCG/ACT inhaler Mixed hyperlipidemia (CMS/HCC) - Primary Relevant Orders Lipid panel Comprehensive metabolic panel CBC and differential Primary hypertension ([facility]/HCC) Currently taking Losartan 50mg Furosemide 20mg Metoprolol [...] Chronic kidney disease, stage 3 unspecified (HCC) ([facility]) Relevant Orders Comprehensive metabolic panel CBC and [...] 24 hr capsule documented in this encounter [facility] 05-22-2024 Hospital Discharg e instructions Follow Up Care 05/22/2024 09:56:54 With:GURVINDER HENDRICKSON, Will Day, URL Address: [address] [place] [address]- When: Unknown [facility] 05-22-2024 History of Presen t illness Narrative [...] COPD (chronic obstructive pulmonary disease) with emphysema ([facility]) Was admitted at [facility] on 05/08 for COPD exacerbation. Was discharged on 05/09/2024. Was treated with Levaquin 750mg And prednisone. Is still smoking 0.5ppd outside. Has not followed up with Welding Machine Operator/Tender-Dr. Aguilar since discharge. States he feekls he [...] for Hospital Follow-up. HPI Was admitted at [facility] on 05/08 for COPD exacerbation. Was discharged on 05/09/2024. Was treated with Levaquin 750mg And prednisone. Is still smoking 0.5ppd outside. Has not followed up with Welding Machine Operator/Tender-Dr. Aguilar since discharge. States he feekls he [...] COPD (chronic obstructive pulmonary disease) with emphysema ([facility]) Was admitted at [facility] on 05/08 for COPD exacerbation. Was discharged on 05/09/2024. Was treated with Levaquin 750mg And prednisone. Is still smoking 0.5ppd outside. Has not followed up with Welding Machine Operator/Tender-Dr. Aguilar since discharge. States he feekls he [...] 24 hr capsule documented in this encounter [facility] 05-22-2024 Instructions Nicolle Rodriguez NP - 05/22/2024 11:00 AM EST Please follow up with Dr. Samsa soon! Severe pain, numbness, tingling, headaches, loss of bowel or bladder function GO TO ER! Shortness of breath, wheezing, chest pain GO TO ER! documented in this encounter [facility] 04-24-2024 History of Presen t illness Narrative [...] 69 y.o. male who presents for Follow-up ([facility] er f/up URI). HPI Was seen [...] on Zpack X5 days, Robitussin AC and Zoan. CXR done-No acute findings. Reports he is [...] 20 MG tablet documented in this encounter [facility] 04-23-2024 Instructions Nicolle Rodriguez NP - 04/23/2024 [...] NEAREST EMERGENCY DEPARTMENT. documented in this encounter [facility] 03-19-2024 History of Presen t illness Narrative [...] (Injury 2 weeks ago with ankle ). [facility] Pulmonology- Dr. Aguilar Cardiology- Dr. Victoria Urology- Dr. Hollins Sinus [...] COPD (chronic obstructive pulmonary disease) with emphysema ([facility]CC) URI (upper respiratory infection) - Primary Sinus congestion, runny nose, body aches X10 days. Discussed likely viral etiology. Ordered COVID/Flu/RSV panel. Recommended rest, fluids, OTC management for now. Relevant Orders COVID-19 / FLU A/B / RSV PCR ([facility]) Ankle injury, right, initial encounter Rolled ankle;e 2 weeks ago. Did not receive tx or imaging. Reports swelling and tenderness still Is able to bear weight and ambulate, but does report associated pain. Selling noted on observation. No discoloration observed. Xray ankle ordered. Other Visit Diagnoses Acute right ankle pain Relevant Orders XR ankle 3+ views right documented in this encounter [facility] 03-19-2024 Instructions Nicolle Rodriguez NP - 03/19/2024 [...] NEAREST EMERGENCY DEPARTMENT. documented in this encounter [facility] 01-17-2024 [facility] Discharg e instructions Patient Education 01/17/2024 [...] if anything looks unusual. Men with a [id number] risk for skin cancer may want to see a reconciliation specialist (secretary book keeper) for an annual body check. What are the benefits of screening? Cancer screening is done to look for cancer in the very early stages, before it spreads and becomes harder to treat and before you would start to notice symptoms. Finding cancer early improves the chances of successful treatment. It may save your life. Where to find more information [place] [employer]: www.cancer.org Centers for Disease Control and Prevention: www.cdc.gov National Cancer [place]: www.cancer.gov Contact a health care provider if: [...] provider. Document Revised: 10/19/2021 Document Reviewed: 04/18/2020 [employer] Patient Education 2022 [employer] Follow Up Care 10/17/2023 10:47:32 With:GURVINDER HENDRICKSON, Will Day, URL Address: [address]esh [address] [address]- When: Unknown [facility] 01-17-2024 Note Patient Education Oncology [...] if anything looks unusual. Men with a [id number]-[id number] risk for skin cancer may want to see a reconciliation specialist (secretary book keeper) for an annual body check. What are the benefits of screening? Cancer screening is done to look for cancer in the very early stages, before it spreads and becomes harder to treat and before you would start to notice symptoms. Finding cancer early improves the chances of success (more content not included)... [facility] 10-17-2023 Hospital Discharg e instructions Patient [...] under a microscope. This is called the Holliday score and the total score can range [...] stress of having cancer. General instructions Take fskk-bmd-pncrabi and prescription medicines only as told by your health care provider. If you have to go to the hospital, notify your cancer specialist (oncologist). Keep all follow-up visits. This is important. Where to find more information [place] [employer]: www.cancer.org [place] [employer]: www.cancer.net National Cancer [place]: www.cancer.gov Contact a health care provider if: [...] provider. Document Revised: 08/19/2021 Document Reviewed: 08/19/2021 [employer] Patient Education 2022 [employer]. Follow Up Care 10/15/2022 10:10:00 With:GURVINDER HENDRICKSON, Will Day, URL Address: [facility] [employer] [place] [id number]- When: Unknown [facility] [place] 03-17-2023 Evaluation note Encounter Date Diagnosis Assessment Notes Mar, Joseph vanessa kid w cr kid I-IV (ICD-10 - [...] Monitor LFTs and lipid profile with PCP. [employer] Other 04-27-2023 Evaluation note* Encounter Date Diagnosis [...] have gout. I have prescribed oral Allopurinol [employer] Other 10-17-2022 Evaluation note* Encounter Date Diagnosis [...] have gout. I have prescribed oral Allopurinol [employer] Other 07-29-2022 NotePROCEDURE: XR FEMUR LT HISTORY: [...] Q60.0) He has a solitary right kidney. [employer] Other Evaluation + Plan note Future Appointments Appointment Date:01/16/2024 09:45:00 AM Scheduled Provider:Will HOLLINS MD Location:[facility] Appointment Type:URO Office Visit Diagnostic Tests Pending * PSA Total 11/05/23 [facility] evaluation + Plan note Future Appointments Appointment Date:05/22/2024 09:30:00 AM Scheduled Provider:Will HOLLINS MD Location:[facility] Appointment Type:URO Office Visit Diagnostic Tests Pending * PSA Total 01/17/24 [facility] evaluation + Plan note Future Appointments Appointment Date:07/17/2024 08:30:00 AM Scheduled Provider:Will HOLLINS MD Location:[facility] Appointment Type:URO Office Visit [facility] evaluation + Plan note Future Appointments Appointment Date:07/23/2024 12:30:00 PM Scheduled Provider:AME Henry APRN, Maribel X Location:[facility] Appointment Type:URO Office Visit [facility] evaluation noteNo imo.imHolmes Mill StreetFire Other evaluation note* Diagnosis Onset Date Resolution Status Anemia of renal disease acut e CKD (chronic kidney disease) stage 3, GFR 30-59 ml/min acute Hyperlipidemia acute [id number] acute Hyperuricemia acute Hypomagnesemia acute Secondary hyperparathyroidism acute Solitary kidney, [place] [facility] Work Phone: evaluation note* Diagnosis Primary [...] neoplasm, unspecified (CMS/HCC) documented in this encounter [facility] HealthcareEvaluation note* Diagnosis Primary hypertension (CMS/HCC)- [...] neoplasm, unspecified (CMS/HCC) documented in this encounter [facility] HealthcareEvaluation note* Diagnosis Primary hypertension [...] 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 Fall, subsequent encounter- Primary Hyperuricemia Other abnormal [...] without hemorrhage Malignant (primary) neoplasm, unspecified (CMS/HCC) Encounter for Medicare annual wellness exam- Primary Pulmonary emphysema, unspecified emphysema type (CMS/HCC) Primary hypertension (CMS/HCC) Unspecified essential hypertension BPH with obstruction/lower urinary tract symptoms Stage 3a chronic kidney disease (HCC) (CMS/HCC) Mixed hyperlipidemia (CMS/HCC) Mixed hyperlipidemia Tobacco dependence syndrome Tobacco use disorder Hyperlipidemia, unspecified (CMS/HCC) Centrilobular emphysema (CMS/HCC) Viral upper respiratory tract infection Acute upper respiratory infections of unspecified site Chronic right heart failure (HCC) (CMS/HCC) Essential (primary) hypertension (CMS/HCC) Unspecified essential hypertension Gastroesophageal reflux disease with esophagitis without hemorrhage Malignant (primary) neoplasm, unspecified ([facility]) MATILDA (obstructive sleep apnea) Obstructive sleep apnea (adult) (pediatric) documented in this encounter [facility] HealthcareEvaluation note* Diagnosis Primary hypertension- Primary Unspecified essential hypertension Pulmonary emphysema, unspecified emphysema type (HCC) Mixed hyperlipidemia Mixed hyperlipidemia Encounter for Medicare annual wellness exam Encounter for screening for lung cancer Continuous dependence on cigarette smoking URTI (acute upper respiratory infection) Acute upper respiratory infections of unspecified site Centrilobular emphysema (HCC)- Primary Chronic midline thoracic back pain Primary hypertension Unspecified essential hypertension Hematemesis with nausea Hospital discharge follow-up Other follow-up examination Chronic right shoulder pain- Primary Pain in joint, shoulder region Chronic midline thoracic back pain Left hip pain Pain in joint, pelvic region and thigh 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 Fall, subsequent encounter- Primary Hyperuricemia Other abnormal blood chemistry Hyperlipidemia, unspecified Centrilobular emphysema (HCC) Chronic right heart failure (HCC) Malignant (primary) neoplasm, unspecified (HCC) Compression fracture of C3 vertebra with routine healing, subsequent encounter Mixed hyperlipidemia- Primary Mixed hyperlipidemia Centrilobular emphysema (HCC) Stage 3a chronic kidney disease (CMS-HCC) Primary hypertension Unspecified essential hypertension Hyperuricemia Other abnormal blood chemistry Hyperlipidemia, unspecified Viral upper respiratory tract infection Acute upper respiratory infections of unspecified site Chronic right heart failure (HCC) Essential (primary) hypertension Unspecified essential hypertension Gastroesophageal reflux disease with esophagitis without hemorrhage Malignant (primary) neoplasm, unspecified (HCC) Encounter for Medicare annual wellness exam- Primary Pulmonary emphysema, unspecified emphysema type (HCC) Primary hypertension Unspecified essential hypertension BPH with obstruction/lower urinary tract symptoms Stage 3a chronic kidney disease (CMS-HCC) Mixed hyperlipidemia Mixed hyperlipidemia Tobacco dependence syndrome Tobacco use disorder Hyperlipidemia, unspecified Centrilobular emphysema (HCC) Viral upper respiratory tract infection Acute upper respiratory infections of unspecified site Chronic right heart failure (HCC) Essential (primary) hypertension Unspecified essential hypertension Gastroesophageal reflux disease with esophagitis without hemorrhage Malignant (primary) neoplasm, unspecified (HCC) MATILDA (obstructive sleep apnea) Obstructive sleep apnea (adult) (pediatric) Diarrhea, unspecified type- Primary Primary hypertension Unspecified essential hypertension Personal history of renal cell carcinoma Tobacco dependence syndrome Tobacco use disorder Acute non-recurrent maxillary sinusitis Pulmonary emphysema, unspecified emphysema type (HCC) Malignant neoplasm of prostate (HCC) Malignant neoplasm of prostate Stage 3a chronic kidney disease (CMS-HCC) documented in this encounter [facility] HealthcareHistory general Narrative - [facility]ortedNort Street[facility] Other History general Narrative - Reported* Type [...] BLOOD PRESSURE WAS 60/40 , DEHYDRATION 04/[address] Other [employer] general Narrative - Reported* Type Description Date [...] BLOOD PRESSURE WAS 60/40 , DEHYDRATION 04/2021 [employer] Other History general Narrative - Reported* Type [...] BLOOD PRESSURE WAS 60/40 , DEHYDRATION 04/2021 [employer] Other Hospital course Narrative No data available for this section [facility] Diaries Hospital Discharge instructions No data available for this section [facility] Diaries Progress note No data available for this section [facility] Diaries Summary Purpose Family History Relationship Condition Age [...] disease) stage 3, GFR 30-59 ml/min Hyperlipidemia [id number] Hyperuricemia Hypomagnesemia Secondary hyperparathyroidism Solitary kidney, acquired Additional Source Comments REASON FOR VISIT (unrecogniz ed section and content) Reason Comments Nausea Reason Comments Medicare Annual Wellness Visit Subsequen t wellness Reason Onset Date Comments Med Refill 07/10/2024 Reason Comments Hospital Follow-up Reason Comments Follow-up Tbh er f/up URI Reason Onset Date Comments [...] pital DATE CREATED AUTHOR AUTHOR'S ORGANIZ ATION 08/20/2024 [facility] DATE CREATED AUTHOR AUTHOR'S ORGANIZ ATION 10/04/2024 [facility] Care Teams (unrecognized sec tion and content) [...] October 13, 2023 End: October 13, 2023 Integrity Assessor Relationship Specialty Start Date End Date Shaikh Gagnon MD [address] [place] [phone] PCP - [employer] 06/06/23 Rm Rainey MD [address] [place] [address] PCP - General Family Medicine 01/16/24 Nicolle Rodriguez NP [address] [place] [address] Nurse Practitioner Family Medicine 01/16/24 Integrity Assessor Relationship Specialty Start Date End Date Shaikh Gagnon MD [address] [place] [address] PCP - [employer] 06/06/23 Rm Rainey MD [address] [place] [address] PCP - General Family Medicine 01/16/24 Nicolle Rodriguez NP [address] [place] [address] Nurse Practitioner Family Medicine 01/16/24 Integrity Assessor Relationship Specialty Start Date End Date Shaikh Gagnon MD [address] [place] [address] PCP - [employer] 06/06/23 Rm Rainey MD [address] [place] [address] PCP - General Family Medicine 01/16/24 Nicolle Rodriguez NP [address] [place] [address] Nurse Practitioner Family Medicine 01/16/24 Integrity Assessor Relationship Specialty Start Date End Date Shaikh Gagnon MD [address] [place] [address] PCP - [employer] 06/06/23 Rm Rainey MD [address] [place] [address] PCP - General Family Medicine 01/16/24 Nicolle Rodriguez NP [address] [place] [address] Nurse Practitioner Family Medicine 01/16/24 Integrity Assessor Relationship Specialty Start Date End Date Shaikh Gagnon MD [address] [place] [address] PCP - [employer] 06/06/23 Rm Rainey MD [address] [place] [address] PCP - General Family Medicine 01/16/24 Nicolle Rodriguez NP [address] [place] [address] Nurse Practitioner Family Medicine 01/16/24 Integrity Assessor Relationship Specialty Start Date End Date Shaikh Gagnon MD [address] [place] [address] PCP - [employer] 06/06/23 Unallocated, Jyoti Pink MD [address] [place] [address] PCP - General Family Medicine 03/20/24 Nicolle Rodriguez NP [address] [place] [address] Nurse Practitioner Family Medicine 01/16/24 Integrity Assessor Relationship Specialty Start Date End Date Shaikh Gagnon MD [address] [place] [address] PCP - [employer] 06/06/23 Rm Rainey MD [address] [place] [address] PCP - General Family Medicine 04/05/24 Nicolle Rodriguez NP [address] [place] [address] Nurse Practitioner Family Medicine 01/16/24 Integrity Assessor Relationship Specialty Start Date End Date Shaikh Gagnon MD [address] [place] [address] PCP - [employer] 06/06/23 Rm Rainey MD [address] [place] [address] PCP - General Family Medicine 04/05/24 Nicolle Rodriguez NP [address] [place] [address] Nurse Practitioner Family Medicine 01/16/24 Integrity Assessor Relationship Specialty Start Date End Date Shaikh Gagnon MD [address] [place] [address] PCP - [employer] 06/06/23 Rm Rainey MD [address] [place] [address] PCP - General Family Medicine 04/05/24 Nicolle Rodriguez NP [address] [place] [address] Nurse Practitioner Family Medicine 01/16/24 Integrity Assessor Relationship Specialty Start Date End Date Shaikh Gagnon MD [address] [place] [address] PCP - [employer] 06/06/23 Rm Rainey MD [address] [place] [address] PCP - General Family Medicine 04/05/24 Nicolle Rodriguez NP [address] [place] [address] Nurse Practitioner Family Medicine 01/16/24 Integrity Assessor Relationship Specialty Start Date End Date Shaikh Gagnon MD [address] [place] [address] PCP - [employer] 06/06/23 Rm Rainey MD [address] [place] [address] PCP - General Family Medicine 04/05/24 Nicolle Rodriguez ELECTRIC MELT OPERATOR [address] [place] [address] Nurse Practitioner Family Medicine 01/16/24 Integrity Assessor Relationship Specialty Start Date End Date Shaikh Gagnon MD [address] [place] [address] PCP - [employer] 06/06/23 Rm Rainey MD [address] [place] [address] PCP - General Family Medicine 04/05/24 Nicolle Rodriguez NP [address] [place] [address] Nurse Practitioner Family Medicine 01/16/24 Integrity Assessor Relationship Specialty Start Date End Date Shaikh Gagnon MD [address] [place] [address] PCP - Aet 06/06/23 Rm Rainey MD [address] [place] [address] PCP - General Family Medicine 04/05/24 Nicolle Rodriguez NP [address] [place] [address] Nurse Practitioner Family Medicine 01/16/24 Integrity Assessor Relationship Specialty Start Date End Date Shaikh Gagnon MD [address] [place] [address] PCP - Aet 06/06/23 Rm Rainey MD [address] [place] [address] PCP - General Family Medicine 04/05/24 Nicolle Rodriguez NP [address] [place] [address] Nurse Practitioner Family Medicine 01/16/24 Integrity Assessor Relationship Specialty Start Date End Date Shaikh Gagnon MD [address] [place] [address] PCP - [employer] 06/06/23 Rm Rainey MD [address] [place] [address] PCP - General Family Medicine 04/05/24 Nicolle Rodriguez NP [address] [place] [address] Nurse Practitioner Family Medicine 01/16/24 Integrity Assessor Relationship Specialty Start Date End Date Shaikh Gagnon MD [address] [place] [address] PCP - [employer] 06/06/23 Rm Rainey MD [address] [place] [address] PCP - General Family Medicine 04/05/24 Nicolle Rodriguez NP [address] [place] [address] Nurse Practitioner Family Medicine 01/16/24 Integrity Assessor Relationship Specialty Start Date End Date Shaikh Gagnon MD [address] [place] [address] PCP - [employer] 06/06/23 Rm Rainey MD [address] [place] [address] PCP - General Family Medicine 04/05/24 Nicolle Rodriguez NP [address] [place] [address] Nurse Practitioner Family Medicine 01/16/24 Integrity Assessor Relationship Specialty Start Date End Date Shaikh Gagnon MD [address] [place] [address] PCP - [employer] 06/06/23 Rm Rainey MD [address] [place] [address] PCP - General Family Medicine 04/05/24 Nicolle Rodriguez NP [address] [place] [address] Nurse Practitioner Family Medicine 01/16/24 Integrity Assessor Relationship Specialty Start Date End Date Shaikh Gagnon MD [address] [place] [address] PCP - [employer] 06/06/23 Rm Rainey MD [address] [place] [address] PCP - General Family Medicine 04/05/24 Nicolle Rodriguez NP [address] [place] [address] Nurse Practitioner Family Medicine 01/16/24 Integrity Assessor Relationship Specialty Start Date End Date Shaikh Gagnon MD [address] [place] [address] PCP - [employer] 06/06/23 Rm Rainey MD [address] [place] [address] PCP - General Family Medicine 04/05/24 Nicolle Rodriguez NP [address] [place] [address] Nurse Practitioner Family Medicine 01/16/24 Integrity Assessor Relationship Specialty Start Date End Date Shaikh Gagnon MD [address] [place] [address] PCP - [employer] 06/06/23 Rm Rainey MD [address] [place] [address] PCP - General Family Medicine 04/05/24 Nicolle Rodriguez NP [address] [place] [address] Nurse Practitioner Family Medicine 01/16/24 Integrity Assessor Relationship Specialty Start Date End Date Shaikh Gagnon MD [address] [place] [address] PCP - [employer] 06/06/23 Rm Rainey MD [address] [place] [address] PCP - General Family Medicine 04/05/24 Nicolle Rodriguez NP [address] [place] [address] Nurse Practitioner Family Medicine 01/16/24 Goals (unrecognized [...] BE BASED ON THE PRIMARY CLINICAL RECORDS. [facility] [employer] [facility]. provides no warranty or guarantee of the accuracy or completeness of information in this document.
[2024-12-26 12:44] LABS: Glucose Urine UA NEGATIVE (NEGATIVE)
[2024-12-26 12:45] LABS: Hematocrit 39.1 % (42.0-54.0); Hemoglobin 13.4 g/dL (14.0-18.0); Immature Granulocytes Abs Auto 0.02 10^3/uL (0.00-0.03); Immature Granulocytes Pct Auto 0.3 % (0.0-0.5); Lymphocytes Absolute Auto 2.7 10^3/uL (1.2-3.8); Mean Corpuscular HGB Conc 34.3 g/dL (29.9-35.2); Mean Corpuscular Hemoglobin 32.4 pg (25.9-34.0); Mean Corpuscular Volume 94.7 fL (80.0-94.0); Platelet Count 188 10^3/uL (150-450); Red Blood Count 4.13 10^6/uL (4.70-6.10); White Blood Count 6.9 10^3/uL (4.0-11.0)
[2024-12-26 13:29] LABS: Alanine Aminotransferase 35 U/L (16-63); Albumin Globulin Ratio 0.9; Albumin Level 3.2 g/dL (3.4-5.0); Alkaline Phosphatase 58 U/L (46-116); Anion Gap 12.4; Aspartate Amino Transferase 25 U/L (15-37); Blood Urea Nitrogen 33.0 mg/dL (7.0-18.0); Calcium 9.2 mg/dL (8.5-10.1); Carbon Dioxide 27.0 mmol/L (21.0-32.0); Chloride 106 mmol/L (98-107); Estimated GFR (African America 45 (>=60 mL/min/1.73m^2); Estimated GFR (Non-African Ame 37 (>=60 mL/min/1.73m^2); Globulin 3.7 g/dL; Glucose 91 mg/dL (74-106); Potassium 4.4 mmol/L (3.5-5.1); Sodium 141 mmol/L (136-145); Total Protein 6.9 g/dL (6.4-8.2)
[2024-12-26 13:39] LABS: Cast Seen? NONE SEEN #/LPF (NONE SEEN); Crystals Seen? None Seen #/HPF (None Seen); Urine Culture Indicated NO
== END 2024-12-26 12:10 | disposition home or self-care (01) ==
LOC: LAB 12:11
PROVIDERS: PCP Nurse Practitioner; Visit Provider Nurse Practitioner
DX: R19.7 Diarrhea, unspecified (principal); R11.0 Nausea; R52 Pain, unspecified
CPT/HCPCS: 36415; 80053; 81001; 85025; 85652

== ENCOUNTER 2025-05-17 11:07 | Outpatient (OUT) | payer MEDICARE, SELFPAY ==
[2025-05-17 11:37] LABS: Hematocrit 40.8 % (42.0-54.0); Hemoglobin 13.7 g/dL (14.0-18.0); Immature Granulocytes Abs Auto 0.01 10^3/uL (0.00-0.03); Immature Granulocytes Pct Auto 0.1 % (0.0-0.5); Lymphocytes Absolute Auto 2.3 10^3/uL (1.2-3.8); Mean Corpuscular HGB Conc 33.6 g/dL (29.9-35.2); Mean Corpuscular Hemoglobin 32.2 pg (25.9-34.0); Mean Corpuscular Volume 95.8 fL (80.0-94.0); Platelet Count 192 10^3/uL (150-450); Red Blood Count 4.26 10^6/uL (4.70-6.10); White Blood Count 7.9 10^3/uL (4.0-11.0)
[2025-05-17 12:30] LABS: Anion Gap 10.6; Blood Urea Nitrogen 23.0 mg/dL (7.0-18.0); Calcium 9.0 mg/dL (8.5-10.1); Carbon Dioxide 28.9 mmol/L (21.0-32.0); Chloride 102 mmol/L (98-107); Estimated GFR (African America >60 (>=60 mL/min/1.73m^2); Estimated GFR (Non-African Ame 54 (>=60 mL/min/1.73m^2); Glucose 114 mg/dL (74-106); Potassium 3.5 mmol/L (3.5-5.1); Sodium 138 mmol/L (136-145); Uric Acid 5.2 mg/dL (3.5-7.2)
== END 2025-05-17 11:08 | disposition home or self-care (01) ==
PROVIDERS: PCP Nurse Practitioner; Visit Provider Nurse Practitioner
DX: K21.9 Gastro-esophageal reflux disease without esophagitis (principal); G47.33 Obstructive sleep apnea (adult) (pediatric); J43.9 Emphysema, unspecified; M10.9 Gout, unspecified; N18.30 Chronic kidney disease, stage 3 unspecified
CPT/HCPCS: 36415; 80048; 84550; 85025

== ENCOUNTER 2025-05-31 07:16 | Outpatient (OUT) | payer MEDICARE, SELFPAY ==
--- OUTSIDE RECORDS SUMMARY | 2024-08-21 04:00 | XMS_ITS ---
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 Name Role Phone AichholSusan griffith CNP Primary Care Provider Unavail able Dhiraj Rojas Unavailable [phone] Allergies No Known Allergies REASON FOR VISIT 1YR-COPD, MATILDA Medications Medication SIG (Take, Route, Frequency, Duration) Notes Start Date End Date Status Losartan Potassium 50 MG 1 tablet Orally Once a day ActiveFurosemide 20 MG1 tablet Orally Once a dayActiveNitrostat 0.4 MGas directed SublingualActiveMetoprolol Tartrate 25 MG1 tablet with food Orally Twice a dayActiveOmeprazole 40 MGTAKE 1 CAPSULE BY MOUTH DAILY Oral; Duration: 30 DaysActiveAtorvastatin Calcium 40 MG1 tablet Orally Once a dayActiveFlomax 0.4 MG1 capsule Orally Once a dayActiveVitamin D3 50 MCG (2000 UT)1 capsule Orally Once a dayActiveBaclofen 5 MG1 tablet as needed Orally Once a dayActive Allopurinol 100 MG1 tablet Orally Once a dayActiveSymbicort 160-4.5 MCG/ACT2 puffs Inhalation Twice a dayActiveVentolin HFA 108 (90 Base) MCG/ACT2 puffs as needed Inhalation every 4 hrsActive Social History Tobacco Use: Social History Observation Description Date Details (start date - stop date) Current Smoker NA - NA Sex Assigned At : Social History Observation Description Sex Assigned At Male Tobacco Control (Standard) Question Answer Notes Tobacco use: Current every day smoker Additional Findings: Tobacco userHeavy cigarette smoker (20-39 cigs/day) Encounters Encounter Location Date Provider Diagnosis Pulmonary Medicine [facility] [address] [place] [address] 08/21/2024 Dhiraj Rojas Plan Of Treatment No Information Procedure Notes * CategorySub-CategoryDetailNotesPFTData:06/30/2020-FEV1/FVC: 86%-FEV1: 64%-FVC: 72%-Bronchodilator response: Positive-RV: 178%-T%-DLCO: 63%-Flow-volume loop: Moderate obstructive11/19/2013-FEV1/FVC: 68%-FEV1: 64%-FVC: 72%-Broncodilator response: Positive in FEV1-RV: 151%-T%-DLCO: 76% Alpha-1 AntitrypsinScreening Date:05/26/2020Genotype:M/M Progress Notes * ARISTIDESMarco LDOB:[birth year] (70 yo M)Acc No.[id number]:08/21/2024 UNLOCKED PROGRESS NOTE Follow Up Patient: Marco ESCALANTE :?Dhiraj Rojas, DODOB:1955???Age:69 Y ???Sex:MaleDate:08/21/2024Phone:[phone]:[address], [address], [place] [id number]: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 1YR-COPD, MATILDA. * Medical History: O SA (obstructive sleep apnea), Centrilobular emphysema, Cigarette nicotine dependence with nicotine-induced disorder, Abnormal CT lung screening, Gastro-esophageal reflux disease, Hyperlipidemia, Benign essential hypertension, History of prostate cancer, History of renal cell cancer, Hoarseness. * Surgical History: N ephrectomy-Left , Oral surgery , Hernia Repair , Prostate Surgery , Cataract removal (Left 08/04/2022, Right 08/11/2022) . * Hospitalization/Major Diagno stic Procedure: H ematemesis-[facility] 08/12/2023. * Family History: M other: sleep apnea. M aternal Grandmother: cirrhosis. F ather: diagnosed with Diabetes. P aternal Grandfather: diagnosed with Cancer. * Social History: ???Tobacco Use:?Tobacco Control (Standard)?Tobacco use:?Current every day smoker ?Additional Findings: Tobacco user?Heavy cigarette smoker (20-39 cigs/day) ?Electronic Cigarette use?Current user?No ???Miscellaneous:?Caffeine: 4 cups a day of coffee. 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 ???Drugs/Alcohol:?Drugs?Have you used drugs other than those for medical reasons in the past 12 months??No ?Does the Patient have a History of Drug Abusein the Past??No ?Caffeine?Intake:?3-4 cups per day Tea & Coffee ?Do you drink alcohol?: No. ?Do you smoke marijuana?: Denies. * Medications: T aking Allopurinol 100 MG Tablet 1 tablet Orally Once a day , Taking Atorvastatin Calcium 40 MG Tablet 1 tablet Orally Once a day , Taking Baclofen 5 MG Tablet 1 tablet as needed Orally Once a day , Taking Flomax 0.4 MG Capsule 1 capsule Orally Once a day , Taking Furosemide 20 MG Tablet 1 tablet Orally Once a day , Taking Losartan Potassium 50 MG Tablet 1 tablet Orally Once a day , Taking Metoprolol Tartrate 25 MG Tablet 1 tablet with food Orally Twice a day , Taking Nitrostat(Nitroglycerin) 0.4 MG Tablet Sublingual as directed Sublingual , Taking Omeprazole 40 MG Capsule Delayed Release TAKE 1 CAPSULE BY MOUTH DAILY Oral , Taking Symbicort(Budesonide-Formoterol Fumarate) 160-4.5 MCG/ACT Aerosol 2 puffs Inhalation Twice a day , Taking Ventolin HFA(Albuterol Sulfate HFA) 108 (90 Base) MCG/ACT Aerosol Solution 2 puffs as needed Inhalation every 4 hrs , Taking Vitamin D3 50 MCG (2000 UT) Capsule 1 capsule Orally Once a day * Allergies: N .K.D.A. Objective: * Vitals: Assessment: Plan: * Treatment: * Procedures: ???Alpha-1 Antitrypsin:?Screening Date:?05/26/2020.?Genotype:?M/M.?PFT:?Data:? 06/30/2020 -FEV1/FVC: 86% -FEV1: 64% -FVC: 72% -Bronchodilator response: Positive -RV: 178% -T% -DLCO: 63% -Flow-volume loop: Moderate obstructive 11/19/2013 -FEV1/FVC: 68% -FEV1: 64% -FVC: 72% -Broncodilator response: Positive in FEV1 -RV: 151% -T% -DLCO: 76%.? * Preventive Medicine: ??COVID Vaccination:?Has patient had COVID Vaccination?COVID Vaccination?Yes 05/27/2021 ??Immunization Status:?Pneumovacc?Pt Refused.?Influenza?03/17/2023.? ??Screenings/Counseling:?FALL RISK SCREENING?Fall Risk Assessment:?One fall without injury in the past year ?Are you afraid of falling??Yes ?TOBACCO ACTION PLAN?Patient counselled on the dangers of tobacco use and urged to quit.? 08/23/2023 ?Cessation counseling provided?08/23/2023 ?BMI ACTION PLAN?Above Normal BMI Follow-up?Dietary management education, guidance, and counseling * * Electronic signature of Dhiraj Rojas DO on 05/31/2025 at 07:22 AM ESTSign off status: PendingVisit Status:?N/S N/C (No Show/No Charge) * Provider: Serafin Rojas DO Date: 0 08/21/2024 Generated for Printing/Faxing/eTransmitting on:?05/31/2025 07:22 AM EST
--- OUTSIDE RECORDS SUMMARY | 2025-05-31 07:22 | XMS_ITS | Clinical Summary ---
Author Organization [facility] Healthcare Address [address] [place] [place] [address] Care Team Providers Care Recordist Name Role Phone Shaikh EMEKA Gagnon Unavailable [phone] Mignon Rodriguez NP Unavailable [phone] Rm Rainey MD Primary Care Provider [phone] Allergies No known active allergies Medications MedicationSigDispense QuantityRefillsLast FilledStart DateEnd DateStatus Multiple Vitamins-Minerals (PreserVision AREDS 2) capsule Take 2 capsules by mouth Daily4Active atorvastatin (Lipitor) 40 MG tablet Indications:Hyperlipidemia, unspecifiedTake 1 tablet (40 mg) by mouth at bedtime 90 tablet 5Active albuterol HFA 90 mcg/act inhaler Indications:Centrilobular emphysema (HCC)Inhale 2 puffs in the morning and 2 puffs at noon and 2 puffs in the evening and 2 puffs before bedtime. 54 g 5Active budesonide-formoterol (Symbicort) 160-4.5 MCG/ACT inhaler Indications:Centrilobular emphysema (HCC)Inhale 2 puffs in the morning and 2 puffs before bedtime. Rinse mouth with water after use to reduce aftertaste and incidence of candidiasis. Do not swallow. 30.6 g 5Active fluticasone (Flonase) 50 MCG/ACT nasal spray Indications:Viral upper respiratory tract infectionAdminister 1-2 sprays into each nostril Daily Shake gently. Before first use, prime pump. After use, clean tip and replace cap. 48 g 5Active furosemide (Lasix) 20 MG tablet Indications:Chronic right heart failure (HCC)Take 1 tablet (20 mg) by mouth Daily 90 tablet 5Active losartan (Cozaar) 50 MG tablet Indications:Essential (primary) hypertensionTake 1 tablet (50 mg) by mouth Daily 90 tablet 5Active metoprolol tartrate (Lopressor) 25 MG tablet Indications:Essential (primary) hypertensionTake 1 tablet (25 mg) by mouth in the morning and 1 tablet (25 mg) before bedtime. 180 tablet 5Active omeprazole (PriLOSEC) [address] capsule Indications:Gastroesophageal reflux disease with esophagitis without hemorrhage Take 1 capsule (40 mg) by mouth Daily 90 capsule 5Active nitroglycerin (Nitrostat) 0.[address] 0.4 mg under the tongue every 5 (five) minutes if needed for chest pain Active cholecalciferol (Vitamin D-3) 50 MCG (2000 UT) capsule Take 2,000 Units by mouth DailyActive baclofen (Lioresal) 5 MG tablet Take 5 mg by mouth 1 (one) time each day at the same timeActive Active Problems ProblemNoted DateDiagnosed DateElevated uric acid in blood5Acute non- recurrent maxillary yhyaiitdc54/22/2025 Assessment & Plan (12/25/2024 5:08 PM EDT): Augmentin 875mg BID for 10 days take with food Uysnvdez40/22/2025OSA (obstructive sleep apnea)10/03/2024 Assessment & Plan (10/03/2024 10:10 AM EDT): [...] your MATILDA: Olegario Compression fracture of C3 uqmmpqal54/17/2024 Assessment & Plan (05/22/2024 11:28 AM EST): [...] a referral over. Secondary hyperparathyroidism of renal ioonie5904/23/20241078Zdqfoizdkg33/18/2024 Chronic kidney disease, stage 3 wztnuzqonbv30/20/2024 Assessment & Plan (12/25/2024 5:08 PM EDT): D/t recent illness with order labs Assessment & Plan (10/03/2024 10:10 AM EDT): Control risk factors, try to limit NSAIDS Periodically check labs Julien Chronic rhinosinusitis with multiple nasal ztzlls1111/24/2023 Assessment & Plan (11/24/2023 10:40 AM EDT): Reports nasal/sinus congestion x 6 months. Symptoms worse in the morning. No improvement with OTC antihistamines. Continues to smoke - discussed smoking cessation Trial of zyrtec-D with flonase. If persistent symptoms - will refer to ENT Chronic right shoulder pain09/28/2023 Assessment & Plan (09/28/2023 11:19 AM EDT): [...] control Ordered PT for patient. Left hip pain09/28/2023 Assessment & Plan (09/28/2023 11:22 AM EDT): Left flank and hip pain. Has multilevel DJD and osteoarthritis involving multiple joints. Ordered prednisone taper for acute pain control. Also given toradol IM in office. XR ordered. PT ordered. BPH with obstruction/lower urinary tract yviwycxm32/19/2024 Assessment & Plan (10/03/2024 6:26 AM EDT): Takes tamsulosin Personal history of prostate zpgrbi7708/23/2023Tobacco dependence syndrome 08/23/2023 Assessment & Plan (12/25/2024 6:36 AM EDT): The patient has been advised of the risks of continued smoking: stroke, SC, all forms of cancer, lung disease, and . Options for quitting smoking include: cold turkey, hypnosis, acupuncture, nicotine replacement meds(gum, lozenges, and patches), Buproprion, and Varenicline. At this time pt is encouraged to evaluate their goals for wanting to quit smoking, and reach out toprovider when ready to start this process Assessment & Plan (10/03/2024 6:28 AM EDT): The patient has been advised of the risks of continued smoking: stroke, SC, all forms of cancer, lung disease, and . Options for quitting smoking include: cold turkey, hypnosis, acupuncture, nicotine replacement meds(gum, lozenges, and patches), Buproprion, and Varenicline. At this time pt is encouraged to evaluate their goals for wanting to quit smoking, and reach out toprovider when ready to start this process Chronic midline thoracic back pain08/23/2023 Assessment & Plan (08/23/2023 11:23 AM EDT): Chronic, unchanged, with periods of worsening pain. Mild tenderness in midline. No trauma or injury. Poor posture is also contributing. Uses tylenol and it helps but sometimes he feels its not enough. Trial of tizanidine as needed. Ordered XR. COPD (chronic obstructive pulmonary disease) with bylshltst39/05/2023 Assessment & Plan (12/25/2024 5:07 PM EDT): Current meds: albuterol, symbicort Samsa Suspicion he could have had COVID a few weeks ago and current sxs are ongoing I am going to check a cxr to r/o pneumonia, although vitals are stable Assessment & Plan (10/03/2024 10:10 AM EDT): Current meds: albuterol, symbicort samsa Assessment & Plan (06/20/2024 9:49 AM EST): Follows closely with Dr. Rojsa. Has had multiple hospitalizations this year due to exacerbations. Is still a current 0.5ppd smoker. Currently taking Symbicort Atrovent Albuterol. Continue current regimen as directed by pulmonology. Assessment & Plan (05/22/2024 11:26 AM EST): Was admitted at [facility] on 05/08 for COPD exacerbation. Was discharged on 05/09/2024. Was treated with Levaquin 750mg And prednisone. Is still smoking 0.5ppd outside. Has not followed up with Blood Bank Assistant-Dr. Rojas since discharge. States he feekls he [...] activity due to GUIDRY. He has an apptwith Dr Rojas later today and I asked him inquire about Trelegy and whether he would benefit from it. He will talk to him and see what his opinion is on his COPD regimen. Assessment & Plan (05/10/2023 2:20 PM EST): On Symbicort. Follows Dr Rojas. Still smoking. Counseled and educated on it. Stable. Mixed vyrtnhfrsceqwj55/05/2023 Assessment & Plan (10/03/2024 6:28 AM EDT): On statin therapy Check labs yearly an prn dose changes Assessment & Plan (05/10/2023 2:20 PM EST): On Lipitor. Check Lipid panel. Primary gsmyrlpmzimt59/05/2023 Assessment & Plan (12/25/2024 6:36 AM EDT): Please check blood pressure daily and record DASH diet Limit caffeine Take medication as directed Contact office if chest pain, pressure, dizziness, shortness of breath, swelling legs Recommend slow position changes Current meds: losartan, metoprolol Assessment & Plan (10/03/2024 6:26 AM EDT): [...] elevated BP. Personal history of renal cell kmorkgzwb45/05/2023 Assessment & Plan (12/25/2024 5:07 PM EDT): Follows with urology Encounter for Medicare annual wellness exam05/10/2023 Assessment & Plan (10/03/2024 10:12 AM EDT): [...] cancer screening Encounter for screening for lung wkinjk8005/10/2023 Assessment & Plan (05/10/2023 2:31 PM EST): Smoker for over 50 years now. Associated complications include COPD. Will order LDCT. Discussed risks vs benefit of lung cancer screening. Malignant neoplasm of iliblube94/02/2014 Assessment & Plan (12/25/2024 5:08 PM EDT): Follows with urology Resolved Problems ProblemNoted DateDiagnosed DateResolved DateEncounter for subsequent annual wellness visit (AWV) in Medicare bzybdaj51/30/460225/4940Ebit26/17/2024 10/03/2024 Assessment & Plan (05/22/2024 11:28 AM [...] a referral over Ankle injury, right, initial Assessment & Plan (03/19/2024 10:45 AM EDT): Rolled ankle;e 2 weeks ago. Did not receive tx or imaging. Reports swelling and tenderness still Is able to bear weight and ambulate, but does report associated pain. Selling noted on observation. No discoloration observed. Xray ankle ordered. Jpnqmrlpaxpn18 Assessment & Plan (06/20/2024 9:49 AM EST): Currently taking atorvastatin 40mg Denies any myalgias. Continue current regimen. Hospital discharge follow-up/ Assessment & Plan (08/23/2023 11:22 AM EDT): [...] been doing well since then. Hematemesis with alwzrk97/ Assessment & Plan (08/23/2023 11:25 AM EDT): Hospital admission/observation for intractable nausea/vomiting with suspicion for hematemesis. Monitored overnight - CBC remained stable and his GI symptoms resolved. Likely gastroenteritis and not truly an episode of hematemesis. Will check CBC to ensure hb is stable. URI (upper respiratory infection) Assessment & Plan (04/24/2024 1:02 PM EST): [...] pain, worsening shortness of breath, dizziness. Pt verbalizedunderstanding. Assessment & Plan (03/19/2024 10:43 AM EDT): Sinus congestion, runny nose, body aches X10 days. Discussed likely viral etiology. Ordered COVID/Flu/RSV panel. Recommended rest, fluids, OTC management for now. Assessment & Plan (05/10/2023 2:25 PM EST): Sore throat, cough, sinus/nasal congestion x 2 weeks. Likely pharyngitis. Will order Azithromycin for him, Immunizations ImmunizationAdministration DatesNext DueInfluenza, High-dose Seasonal, Quadrivalent, Preservative Free03/17/2023,03/27/2022,03/26/2021Influenza, seasonal, uvkaenpcst00/09/2014 Family History Medical HistoryRelationNameCommentsCancerFatherDiabetesFatherHypertensionMother RelationNameStatusCommentsFatherDeceasedMotherAlive Social History Tobacco UseTypesPacks/DayYears UsedDateSmoking Tobacco: Every EmgXepnttqkfd859 Passive Smoke Exposure: CurrentSmokeless Tobacco: Never Tobacco Cessation:Ready to Q uit: Not Asked; Counseling Given: Not Answered Alcohol UseStandard Drinks/WeekCommentsYes2 (1 standard drink = 0.6 oz pure alcohol)caffene: 1-2 cups per dayHumiliation, Afraid, Rape, and Kick questionnaireAnswerDate RecordedWithin the last year, have you been afraid of your partner or ex-partner?No05/10/2023Within the last year, have you been humiliated or emotionally abused in other ways by your partner or ex-partner?No 05/10/2023Within the last year, have you been kicked, hit, slapped, or otherwise physically hurt by your partner or ex-partner?No05/10/2023Within the last year, have you been raped or forced to have any kind of sexual activity by your part ner or ex-partner?No05/10/2023Social Connection and Isolation PanelAnswerDate RecordedIn a typical week, how many times do you talk on the phone with family, friends, or neighbors?More than three times a week05/10/2023How often do you get together with friends or relatives?Once a week05/10/2023How often do you attend christianity or nondenominational services?Never05/10/2023o you belong to any clubs or organizations such as christianity groups, unions, fraternal or athletic groups, or school groups?No05/10/2023ttends Club or Organization MeetingsNot on file 05/10/2023re you , , , , never , or living with a partner?Hkzflql0605/10/2023UDIT-CAnswerDate RecordedQ1: How often do you have a drink containing alcohol?2-3 times a week05/06/2023Q2: How many drinks containing alcohol do you have on a typical day when you are drinking?1 or Q3: How often do you have six or more drinks on one occasion?Never 05/06/2023Overall Financial Resource Strain (CARDIA)AnswerDate RecordedHow hard is it for you to pay for the very basics like food, housing, medical care, and heating?Not very hard05/10/2023HQ-2AnswerDate RecordedPatient Health Questionnaire-2 Xiuyb576Finalta [facility] - Occupational Stress QuestionnaireAnswerDate RecordedDo you feel stress - tense, restless, nervous, or anxious, or unable to sleep at night because yourmind is troubled all the time - these days?To some sexgax8605/10/2023Exercise Vital Sign AnswerDate RecordedOn average, how many days per week do you engage in moderate to strenuous exercise (like a brisk walk)?2 days05/10/2023On average, how many minutes do you engage in exercise at this level?30 min05/10/2023Hunger Vital SignAnswerDate RecordedWithin the past 12 months, you worried that your food would run out before you got the money to buymore.Never true05/10/2023Within the past 12 months, the food you bought just didn't last and you didn't have money to get more.Never true05/10/2023RAPARE - TransportationAnswerDate RecordedIn the past 12 months, has lack of transportation kept you from medical appointments or from getting medications?No05/10/2023In the past 12 months, has lack of transportation kept you from meetings, work, or from getting things needed for daily living?No05/10/2023Housing Stability Vital SignAnswerDate RecordedIn the last 12 months, was there a time when you were not able to pay the mortgage or rent on time?No05/10/2023Number of Places Lived in the Last Year Not on file05/10/2023In the last 12 months, was there a time when you did not have a steady place to sleep or slept in [facility] (including now)?No05/10/2023 Sex and Gender InformationValueDate RecordedSex Assigned at BirthNot on file Legal UrgPuwi6208/18/2022 7:30 PM EDTGender IdentityNot on fileSexual Orientation Not on file Last Filed Vital Signs Vital SignReadingTime TakenCommentsBlood Eucemmwg069/5607 4:02 PM EDT Tjgzh1776 4:02 PM JIOZmyhxqxtdlx52.7 ??C (98.1 ??F)12/25/2024 4:02 PM EDTRespiratory Ntbe534312/25/2024 4:02 PM EDTOxygen Brvdibbgir37%12/25/2024 4:02 PM EDTInhaled Oxygen Concentration--Iqokmf089 kg (237 lb)12/25/2024 4:02 PM EDT Usczmy085.8 cm (5' 10 )10/03/2024 9:44 AM EDTBody Mass Index34.01010/03/2024 9:44 AM EDT Plan of Treatment Health MaintenanceDue DateLast DoneCommentsCT Wfnvchlhlyed1956olonoscopy 1956FIT1956FOBT1956Lung Cancer Screening Shared Decision Vcqngq21 1955 9358Zykazronyymtz1956Pneumococcal Vaccine: 65+ Years (1 of 2 - PCV)02/21/1975Influenza Vaccine (#1)/05/2023, 03/27/2022, 03/26/2021, Additional history existsColorectal Cancer Xprpwwyqe65/19/2027 FIT-DNA, 08/18/2023 Procedures Procedure NamePriorityDate/TimeAssociated DiagnosisCommentsLAB COLOGUARD?? COLON CANCER FVUZPUGibosoa27/19/2024 10:24 AM EDTfrom Last 3 Months or Most Recently Relevant to Health Maintenance Results * Cologuard?? colon cancer screening (09/23/2023 10:24 AM EDT)Specimen (Source) Anatomical Location / LateralityCollection Method / VolumeCollection Time Received TimeStool Narrative Authorizing ProviderResult TypeResult StatusShaikh Kalin HENDRICKSONLAB MOLECULAR DIAGNOSTICS ORDERABLESFinal Result from Last 3 Months or Most Recently Relevant to Health Maintenance Insurance Care Teams Team MemberRelationshipSpecialtyStart DateEnd Date Shaikh Gagnon MD [address] [place] [address] PCP - [employer]06/06/23 Rm Rainey MD PCP - GeneralFamily Lapivjsl96/31/24 Mignon Rodriguez NP Nurse PractitionerFamily Medicine01/16/24
--- OUTSIDE RECORDS SUMMARY | 2025-05-31 07:22 | XMS_ITS | Clinical Summary ---
Author Organization [facility] Address [address] [place] [address] Phone Care Team Providers Care Pipe Recovery Specialist Name Role Phone Jem Hadley MD Primary Care Provider [phone] Social History Tobacco UseTypesPacks/DayYears UsedDateSmoking Tobacco: Never AssessedSex and Gender InformationValueDate RecordedSex Assigned at BirthNot on fileLegal Sex Male04/30/2022 3:40 PM ESTGender IdentityNot on fileSexual OrientationNot on file Plan of Treatment Not on file Care Teams Team MemberRelationshipSpecialtyStart DateEnd Date Jem Hadley MD [address] [place] [address] PCP - [facility]01/02/13
--- OUTSIDE RECORDS SUMMARY | 2025-05-31 07:22 | XMS_ITS | Clinical Summary ---
Author Organization [facility] Address [address] [place], [place] [address] Care Team Providers Care Unit Manager Rn Name Role Phone Jem Hadley Primary Care Provider Allergies No known active allergies Medications MedicationSigDispense QuantityRefillsLast FilledStart DateEnd DateStatus furosemide (LASIX) 20 mg tablet Take 20 mg by mouth twice daily.Active metoprolol tartrate, short acting, 25 mg tablet Take 25 mg by mouth twice daily.Active meloxicam (MOBIC) 7.5 mg tablet Take 7.5 mg by mouth once daily.Active amLODIPine (NORVASC) 5 mg tablet Take 5 mg by mouth once daily.Active Active Problems ProblemNoted DateDiagnosed DateMalignant neoplasm of apmkwisc16/02/2014 Family History Medical HistoryRelationCommentsCancerFatherRelationStatusCommentsFather Social History Tobacco UseTypesPacks/DayYears UsedDateSmoking Tobacco: Every DayCigarettes0.540 Alcohol UseStandard Drinks/WeekCommentsYes0 (1 standard drink = 0.6 oz pure alcohol)Sex and Gender InformationValueDate RecordedSex Assigned at BirthNot on fileLegal MywFoep9208/03/2013 2:03 PM ESTGender IdentityNot on fileSexual OrientationNot on file Plan of Treatment Health MaintenanceDue DateLast DoneCommentsAbdominal Aortic Aneurysm Screening 6Anxiety Qamctkphn32/18/1974Depression Rjauvnkov80/18/1974Hepatitis C Thawgdtfm46/18/1974DTaP,Tdap,Td Vaccine (1 - Tdap)02/21/1975Lipid Screening 02/21/1991CT Himepszkvnqu04/18/2001Cologuard (FIT-DNA)02/21/2001Colonoscopy 02/21/2001Colorectal Cancer Zcarkelus25/18/2001Diabetes Jesuvrole92/18/2001Fecal Occult Blood02/21/20010457Oxtlgppxnbjnj05/18/2001Pneumococcal Vaccine: 50+ (1 of 1 - PCV)02/21/2006Shingrix Vaccine (1 of 2)02/21/2006dvance Directive Discussion 5Covid-19 Vaccine (1 - 2024- season)2025Influenza Vaccine (#1) 2025RSV Vaccine (1 - 1-dose 75+ series)02/21/2031 Care Teams Team MemberRelationshipSpecialtyStart DateEnd Date Jem Hadley [address] [place] [address] [phone] PCP - GeneralFamily Medicine08/21/13
--- OUTSIDE RECORDS SUMMARY | 2025-05-31 07:22 | XMS_ITS | Patient Health Record ---
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 Ordering Physician: Rukhsana Aguilar D.O. Date of Service: 10/12/24 Procedure(s): CT chest wo con Accession Number(s): [id number] cc: Susan Edward NP [place] [address] Patient Name: MARCO IRVING MRN: [id number] date: 1955 Sex: M Assigned Patient Location: CT Current Patient Location: CT Accession/Order Number: [id number] Exam Date: 10/12/2024 14:40 Report Date: 10/12/2024 [...] months. Impression dictated by: Horace Lantigua Jr. DQuan 10/12/2024 2:43 PM Dictation Location: [place] [address] Electronically authenticated by: [id number] Y Date: 10/12/2024 14:43 Dictated By: Horace Lantigua M.D. 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: CT Chest w/o contrast Reviewed date:10/15/2024 07:17:03 AM Interpretation: Performing Lab: Notes/Report: Reason For Referral No Information Medications Medication SIG (Take, Route, Frequency, Duration) Notes Start Date End Date Status Flomax 0.4 MG 1 capsule Orally Once a day ActiveBaclofen 5 MG1 tablet as needed Orally Once a dayActiveVentolin HFA 108 (90 Base) MCG/ACT2 puffs as needed for SOB Inhalation Q4H; Duration: 90 days ActiveNitrostat 0.4 MGas directed SublingualActiveMetoprolol Tartrate 25 MG1 tablet with food Orally Twice a dayActiveLosartan Potassium 50 MG1 tablet Orally Once a dayActiveFurosemide 20 MG1 tablet Orally Once a dayActiveAllopurinol 100 MG1 tablet Orally Once a dayActiveVitamin D3 50 MCG (1999)1 capsule Orally Once a dayActiveOmeprazole 40 MGTAKE 1 CAPSULE BY MOUTH DAILY Oral; Duration: 30 DaysActiveSymbicort 160-4.5 MCG/ACT 2 puffs Inhalation BID; Duration: 90 days Rinse after use ActiveAtorvastatin Calcium 40 MG1 tablet Orally Once a dayActive Immunizations Vaccine Route Administration Date Status Comme nts Flu, Fluzone High-Dose (2022 -2023) (69925) 65 yrs+ Unknown 03/17/2023 Administered Flu, Fluzone High-Dose (21218) 65 yrs+ (4875-0152)Arzrrgg3403/27/2022dministered SARS-COV-2 (COVID 19 Moderna - Booster 0.25mL)Rttzpde95/22/2021Administered Social History Tobacco Use: Social History Observation Description Date Details (start date - stop date) Current Smoker NA - NA Sex Assigned At : Social History Observation Description Sex Assigned At Male Tobacco Control (Standard) Question Answer Notes Tobacco use: Current every day smoker Additional Findings: Tobacco userHeavy cigarette smoker (20-39 cigs/day) Problems Problem Type SNOMED Code ICD Code Onset Dates Problem Status W/U Status Risk Notes Problem Obesity (758585926) Obesity, unspecified (E66.9) ActiveconfirmedProblemCentrilobular emphysema (37680029)Centrilobular emphysema (J43.2)ActiveconfirmedProblemLong-term current use of inhaled steroid (398337359)half-way (current) use of inhaled steroids (Z79.51)Activeconfirmed ProblemHypertension (63750226)HTN (hypertension) (I10)ActiveconfirmedProblem Anemia (754031451)Anemia (D64.9)ActiveconfirmedProblemObstructive sleep apnea syndrome (25836595)MATILDA (obstructive sleep apnea) (G47.33)ActiveconfirmedProblem Mental disorder caused by drug (716007259)Cigarette nicotine dependence with nicotine-induced disorder (F17.219)ActiveconfirmedProblemOsteophyte (90052206) 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)ActiveconfirmedProblemBreathing painful (49105290)Rib pain on left side (R07.81)ActiveconfirmedProblemAlcohol intoxication (00776699)Alcohol intoxication (F10.129)Activeconfirmed Vital Signs Heart Rate 75 /min 10/18/2024 Jnedakpzufu82.1 degrees Rpbtilsztd51/15/2025Respiratory Rate20 /min10/18/2024 Blood pressure xkkavnevm80 mm Hg10/18/20242808Giowrkqf14 %10/18/20248768Zpbabz77 in 10/18/2024lood pressure namwcosr749 mm Hg10/18/20240402Vorrir318.6 lbs10/18/2024MI 33.8 kg/m210/18/2024 Encounters Encounter Location Date Provider Diagnosis Pulmonary Medicine [place] [address] [place] [address] 06/12/2024 [facility] [place] [address]/ [facility] [address] [place] [address] 01/29/2025[facility] [place] [address]/[facility] (obstructive sleep apnea) G47.33 ; Centrilobular emphysema J43.2 ; Hoarseness R49.0 ; Cigarettenicotine dependence with nicotine-induced disorder F17.219 ; Abnormal CT lung screening R91.8 ; half-way (current) use of inhaled steroids Z79.51 ; Obesity, unspecified E66.9 and Body mass index [BMI] 33.0-33.9, adult Z68.33ulmonary Medicine [address] [place] [address]/[facility] (obstructive sleep apnea) G47.33 ; Centrilobular emphysema J43.2 ; Cigarette nicotine dependence with nicotine-induced disorder F17.219 ; meterman (current) use of inhaled steroids Z79.51 ; Obesity, unspecified E66.9 and Encounter for screening for malignant neoplasm of respiratory organs Z12.2 Assessments Encounter Date Diagnosis (ICD Code) Assessment Notes Treatment Notes Treatment Clinical Notes Section Notes 10/03/2024 MATILDA (obstructive sleep apnea) (I CD-10 - G47.33) Ayrm-dd-qumf encounter performed with the patient to document continued need for PAP therapy. -Split-night study 03/24/2023: AHI 23 -Compliance was reviewed from: 07/24/2023 - 08/22/2023-Current mode & pressures: AirSense 11 AutoSet CPAP 57xnP1I-Qhdzzwqc AHI: 7.2-Air leak (95th percentile): 51.4L/min-Mask/harness fitting: Has difficulty getting his mask to stay put often as he has an underbite. He also has a dog that jumps onto his bed and tries to nudge the mask off-Sleep quality: Good sleep quality with use. States he does not sleep well without it.-Daytime hypersomnolence: Decreased with use.- Recommendations: AHI has worsened slightly since last visit with increased air leak. Discussed mask fitting. Attempt to avoid the dog nudging his mask as best able. Continues to have better symptom control. No changes to pressure at this time. Continue to use the CPAP @ HS & naps. 10/18/2024OSA (obstructive sleep apnea) (ICD-10 - G47.33) Uyit-pm-idrs encounter performed with the patient to document continued need for PAP therapy. -Split-night study 03/24/2023: AHI 23 -Compliance was reviewed from: 09/11/2024 - 10/10/2024 -Total days used: 30 (100%) -Total of all days >4 hours of use: 30/ (100%) -Current mode & pressures: AirSense 11 AutoSet CPAP [id number]-[id number] AHI: 7.9- Median air leak: 19.3L/min-Mask/harness fitting: He got rid of his dog, so he is not having to deal with that any more. Does not complain of any significant mask fitting issues today.-Sleep quality: Reports restful sleep with use.-Daytime hypersomnolence: Decreased with use.-Recommendations: Superb compliance. AHI st ill not optimal - goal <5. At straight 70bgC4P pressure. Discussed adjusting to auto-CPAP to seeif this can nudge his AHI to goal. He voiced agreement. As he is still having the residual events at 81ylQ1D, will keep 93saH5S at the minimum and change to auto-CPAP 13-06mpX7W. He voiced he likes the ramp as it is, so will continue with ramp starting at 4cmH2O. No other changes were made. Requeste d that patient contact the office next week if he is having any issues with the pressure. Continue to use the CPAP @ HS & naps. 5Centrilobular emphysema (ICD-10 - J43.2) He continues to do well on Symbicort. Rinsing after use, no adverse effects. Rare albuterol use. Previously discussed LAMA, but he already has dry mouth and he's concerned about urinary retention. Since he was here last, Ohtuvayre has been released which does not have LAMA adverse effects but couldbe added on top of Symbicort. He voiced he was happy with his symptom control and stated he did notwant anything else at this time. 10/18/2024igarette nicotine dependence with nicotine-induced disorder (ICD-10 - F17.219) 1ppd x 55 years (began age 14) Patient was counseled on smoking cessation yet again. He voiced understanding that it is in his best interest to stop smoking. LDCT done 10/12/2024 looked well without any suspicious findings (RADS-1). Next LDCT is due October 2025. 5Centrilobular emphysema (ICD-10 - J43.2) Respiratory status appears [...] not want to change it after discussion. 10/03/2024Hoarseness (ICD-10 - R49.0) New hoarseness, ongoing ~2 [...] know and I will send one in. 10/18/2024Long term (current) use of inhaled steroids (ICD-10 - Z79.51) He was counseled to rinse & gargle with water after inhaled corticosteroid use. 10/18/2024Obesity, unspecified (ICD-10 - E66.9) Weight loss recommended. 10/03/2024igarette nicotine dependence with nicotine-induced disorder (ICD-10 - F17.219) He continues to smoke and yet again I counseled him on cessation. 10/03/2024bnormal CT lung screening (ICD-10 - R91.8) F/U chest CT 10/11/2022 showed resolution of the abnormal findings. He can resume annual LDCT screening. I was going to order LDCT for 10/2023, but Dr. Gagnon already ordered it, so will use his order at this time - patient was counseled that the LDCT SHOULD be done in October to maintain the annual evaluation. 10/18/2024Encounter for screening for malignant neoplasm of respiratory [...] smoking cessation/continued tobacco abstinence. LDCT due 10/2025. 10/03/2024Long term (current) use of inhaled steroids (ICD-10 - Z79.51) was counseled to rinse & gargle with water after inhaled corticosteroid use. 10/03/2024Obesity, unspecified (ICD-10 - E66.9) Weight loss indicated. 10/03/2024ody mass index [BMI] 33.0-33.9, adult (ICD-10 - Z68.33) Plan Of Treatment No Information Insurance Providers Payer Name Payer Address Payer Phone Subscriber Number Group Number Insured Name Patient Relationship to Insured Coverage Start Date Coverage End Date [employer] [address] HANNAH LLANES [id number] [phone] [id number] [employer] - patient is the [id number] 2022 Medical (General) History Medical History History ICD Code MATILDA (obstructive sleep apnea) G47.33 Centrilobular emphysema J43.2 Cigarette nicotine dependence with nicot ine-induced disorder F17.[address] lung screening R91.8 Gastro-esophageal reflux disease K21.9 Hyperlipidemia E78.5 Benign essential hypertension I10 History of prostate cancer Z85.46 History of renal cell cancer Z85.528 Hoarseness R49.0 Surgical History Surgery Date(Month/Year) Nephrectomy-Left Oral surgeryHernia RepairProstate SurgeryCataract removal (Left 08/04/2022, Right 08/11/2022)Hospitalization History Reason Date(Month/Year) Hematemesis-[facility] 08/12/2023
--- NOTE | 2025-05-31 08:00 | CA_ITS ---
Patient Name: ABBEY IRVING MR#: [id number] : 1955 Exam Date: 05/31/2025 Ordering Doctor: MINDA MORENO CNP ECHOCARDIOGRAM REPORT PROCEDURE: CA ECHO DOPPLER COMPLETE INDICATIONS: Chest pain, hypertension, smoker, COPD, obstructive sleep apnea COMPARISON: None. DESCRIPTION: COMPLETE ECHOCARDIOGRAM Real-time transthoracic echocardiography with 2D, M-mode, spectral and color flow Doppler performed. QUALITY: LEFT VENTRICLE: Normal chamber size. Mild concentric left ventricular hypertrophy. Calculated left ventricular ejection fraction is 65-70%. LV EF: Normal left ventricular ejection fraction, (>55%). DIASTOLIC: Normal diastolic function. ATRIAL SEPTUM: Visually appears intact. LEFT ATRIUM: Normal chamber size. RIGHT ATRIUM: Normal chamber size. RIGHT VENTRICLE: Normal chamber size. Normal right ventricular systolic function. TRICUSPID VALVE: Normal mobility and thickness. No stenosis with no regurgitation. Unable to assess right-sided pressures due to lack of measurable tricuspid regurgitation. MITRAL VALVE: Normal mobility and thickness. No evidence of mitral valve stenosis. There is no mitral annular calcification. Trivial mitral regurgitation. AORTIC VALVE: Normal trileaflet appearance. No visible sclerosis. Normal leaflet mobility. No evidence of aortic valve stenosis. No aortic regurgitation. AORTIC ROOT: Normal diameter and appearance, measuring 3.8 cm. Ascending aorta is normal in size, measuring 3.4 cm. PULMONIC VALVE: Normal thickness and mobility. No stenosis. Trivial regurgitation. PERICARDIUM: No evidence of pericardial effusion. IVC: Collapses with inspiration. PLEURA: CONCLUSION: 1. Mild concentric left ventricular hypertrophy with normal systolic function. Estimated LVEF is 65-70%. 2. Normal right ventricular size and systolic function. 3. Normal diastolic function. 4. No significant valvular dysfunction. 5. Unable to assess right-sided pressures due to lack of measurable tricuspid regurgitation. Adult Echocardiography Procedure Report Left Ventricle LVEDD (3.7 - 5.6 cm): 5.08 cm LVESD (2.2 - 4.0 cm): 3.46 cm LVIVS thickness (0.6 - 1.2 cm): 1.08 cm LVPW thickness (0.5 - 1.0 cm): 1.05 cm e': 0.11 m/s E - e': 6.35 LVOT Max Gradient: 2.11 mm[Hg] LVOT Area (cm2): 0.73 m/s Peak Velocity (LVOT): 0.73 m/s Mean Velocity (LVOT): 0.50 m/s LVOT Diameter 2.65 cm Left Ventricular Ejection Fraction: 65-70 % Left Atrium LA Volume Index (2D A2C): 34.06 ml/m2 Left Atrium Systolic Dimension: 3.96 cm Mitral Valve MV E to A Ratio: 0.78 Mitral Valve A-Wave Peak Velocity: 0.87 m/s Mitral Valve E-Wave Peak Velocity: 0.68 m/s Right Ventricle Aorta AO Root Diam: 3.83 cm Ascending Ao Diam: 3.39 cm Aortic Valve AoV Area (Peak Wil): 2.95 cm2, 2.95 cm2 AoV Area (VTI): 2.92 cm2, 2.92 cm2 Peak Velocity(Antegrade Flow): 1.36 m/s Peak Gradient(Antegrade Flow): 7.40 mm[Hg] Mean Velocity(Antegrade Flow): 0.96 m/s Mean Gradient(Antegrade Flow): 4.21 mm[Hg] Velocity Time Integral: 32.38 cm Tricuspid Valve Pulmonic Valve Mean Gradient: 1.71 mm[Hg] Mean Velocity: 0.61 m/s Peak Velocity: 0.93 m/s Peak Gradient: 3.48 mm[Hg] Right Atrium Right Atrium Systolic Pressure: 44.40 ml, 44.40 ml Dictated by: Ángel Bradford M.D. on 06/01/2025 at 14:56 Approved by: Ángel Bradford M.D. on 06/01/2025 at 15:02
--- NOTE | 2025-05-31 08:17 | XR_ITS ---
The [address] [address] Patient Name: ABBEY IRVING MRN: [id number] date: 1955 Sex: M Assigned Patient Location: [place] Current Patient Location: [place] Accession/Order Number: [id number] Exam Date: 05/31/2025 08:20 Report Date: 05/31/2025 09:21 At the request of: RAKAN MORENO NP Procedure: XR chest 2V PA AND LATERAL CHEST: CLINICAL HISTORY: Chest pain and chronic cough. Long history of tobacco use. COMPARISON: 12/25/2024 The lungs are hyperinflated. There is no focal parenchymal consolidation, effusion or pneumothorax. The cardiac, hilar and mediastinal silhouettes are within normal limits. There is no vascular congestion. The visualized bony thorax is intact. There are degenerative changes and dextroscoliotic curvature at the spine, similar to the prior XR/XR chest 2V IMPRESSION: OBSTRUCTIVE LUNG DISEASE. NO ACUTE CARDIOPULMONARY ABNORMALITY. Impression dictated by: Ivory Gonzalez M.D. 05/31/2025 9:21 AM Dictation Location: [place] [address] Electronically authenticated by: [id number] Y Date: 05/31/2025 09:21
--- NOTE | 2025-05-31 09:57 | PC.NURSE ---
Nursing Note Cardiac Stress Test Reviewed: Medication, allergies and patient history reviewed. Stress Test: [ x]? Patient tolerated stress test well. [ ]? Patient unable to tolerate walking on treadmill. Switched to Lexiscan stress test. [ x]? No chest pain noted per patient [ ]? Chest pain that resolved prior to leaving stress lab. [x ]? No dyspnea noted. [ ]? Dyspnea that resolved prior to leaving stress lab. [x]? Patient left stress lab asymptomatic and hemodynamically stable. [ ]? Patient taken to the Emergency Room due to non-resolving symptoms following stress test. [ ]? Patient achieved target heart rate. [ ]? Patient unable to achieve target heart rate. [ ]? Aminophylline administered as reversal agent to Lexiscan (Regadenoson). [ ]? Nitro administered. Nursing Comments: Pt c/o dry mouth, dry nose and headache that subsided with coffee and breakfast sandwich.
[2025-05-31] MEDS: REGADENOSON 0.4 MG/5 ML SYRINGE IV (10:01)
== END 2025-05-31 07:17 | disposition home or self-care (01) ==
LOC: NM 07:19
PROVIDERS: PCP Nurse Practitioner; Visit Provider Nurse Practitioner
DX: R07.9 Chest pain, unspecified (principal); F17.200 Nicotine dependence, unspecified, uncomplicated; G47.33 Obstructive sleep apnea (adult) (pediatric); E78.2 Mixed hyperlipidemia; N18.30 Chronic kidney disease, stage 3 unspecified; J44.9 Chronic obstructive pulmonary disease, unspecified; I12.9 Hypertensive chronic kidney disease with stage 1 through stage 4 chronic kidney disease, or unspecified chronic kidney disease
CPT/HCPCS: 71046; 78452; 93017; 93306; A9500; J2785